=== PATIENT | female | born 1940 | race Caucasian/White ===

== ENCOUNTER 2024-03-25 08:50 | Observation (INO) | payer MEDICARE, SELFPAY ==
[2024-03-25] VITALS (22 sets, daily range): BP systolic 142–181; BP diastolic 63–98; PULSE 65–100; TEMP 37.4–38.4; O2SAT 90–98; BMI 39.5; BMI 38.9
--- NOTE | 2024-03-25 09:21 | ECG_ITS ---
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
--- NOTE | 2024-03-25 09:21 | XR_ITS ---
The [address] [address] Patient Name: SHAHBAZ CARIAS MRN: [id number] date: 1940 Sex: F Assigned Patient Location: ED.MAIN Current Patient Location: ER Accession/Order Number: [id number] Exam Date: 03/25/2024 10:06 Report Date: 03/25/2024 11:03 At the request of: GABRIELE CYR Procedure: XR chest 1V PROCEDURE: XR chest 1V DATE: 03/25/2024 9:06 AM CDT COMPARISONS: None. CLINICAL INDICATION: 83 years Female weakness, fever FINDINGS: The heart is moderately prominent. The pulmonary vasculature does not appear congested. There is some heterogeneous airspace disease of the right suprahilar region which could represent inflammatory infiltrate. There is slight scattered increased interstitial markings of the lungs which could represent a small amount of chronic lung change or small amount of congestion related to supine radiographic technique. There is no evidence of pleural effusion or pneumothorax. XR/XR chest 1V IMPRESSION: Somewhat limited supine radiograph. There appears to be moderate cardiomegaly. There is heterogeneous airspace disease of the right suprahilar region medially possibly inflammatory infiltrate. Electronically authenticated by: MICHELLE JONES Date: 03/25/2024 11:03
--- NOTE | 2024-03-25 09:23 | CT_ITS ---
The [address] [address] Patient Name: SHAHBAZ CARIAS MRN: [id number] date: 1940 Sex: F Assigned Patient Location: ED.MAIN Current Patient Location: ER Accession/Order Number: [id number] Exam Date: 03/25/2024 10:06 Report Date: 03/25/2024 11:06 At the request of: GABRIELE CYR Procedure: CT head/brain wo con PROCEDURE: CT head/brain wo con DATE: 03/25/2024 9:06 AM CDT COMPARISONS: None. CLINICAL INDICATION: 83 years Female weakness, fall TECHNIQUE: Axial images were obtained from the skull base through the calvarium. Reconstructed coronal and sagittal images are formatted for digital viewing. Individualized dose optimization technique was used for the procedure performed. FINDINGS: There is no evidence of intracranial masses, mass effect or hemorrhage. There is evidence of some diffuse brain atrophy in large part likely related to the patient's age. There is no evidence of abnormal extra-axial fluid collections. The visualized osseous structures show no CT abnormalities. The visualized portions of the paranasal sinuses and mastoid air cells appear clear. CT/CT head/brain wo con IMPRESSION: CT of the head shows no evidence of acute intracranial abnormality. Electronically authenticated by: MICHELLE JONES Date: 03/25/2024 11:06
--- NOTE | 2024-03-25 09:23 | CT_ITS ---
The [address] [address] Patient Name: SHAHBAZ CARIAS MRN: [id number] date: 1940 Sex: F Assigned Patient Location: ED.MAIN Current Patient Location: Accession/Order Number: [id number] Exam Date: 03/25/2024 10:06 Report Date: 03/25/2024 11:11 At the request of: GABRIELE CYR Procedure: CT cervical spine wo con PROCEDURE: CT cervical spine wo con DATE: 03/25/2024 9:06 AM CDT COMPARISONS: None. CLINICAL INDICATION: 83 years Female weakness, fall TECHNIQUE: Axial images were obtained of the spine. Coronal and sagittal reformations were created. Individualized dose optimization technique was used for the procedure performed. FINDINGS: There is no evidence of fractures, subluxation or other acute osseous abnormalities. There is moderate multilevel intervertebral disc space degenerative changes. This includes multilevel posterior lateral uncovertebral osteophytosis narrowing the neural foramina somewhat especially C4-T1. There is 3 mm of anterior subluxation C3 on C4 and 2 mm anterior subluxation C2 on C3. This is probably secondary to facet degenerative changes. There is moderate diffusely scattered multilevel cervical facet degenerative changes. No significant abnormalities are identified of the soft tissues included on these images. CT/CT cervical spine wo con IMPRESSION: 1. No evidence of fractures or other acute osseous abnormalities 2. Moderate degenerative spondylosis 3. Slight subluxation C2 on C3 and C3 on C4 probably due to facet degenerative change, probably not acute process Electronically authenticated by: MICHELLE JONES Date: 03/25/2024 11:11
--- NOTE | 2024-03-25 09:24 | XR_ITS ---
The [address] [address] Patient Name: SHAHBAZ CARIAS MRN: [id number] date: 1940 Sex: F Assigned Patient Location: ER Current Patient Location: ER Accession/Order Number: [id number] Exam Date: 03/25/2024 10:06 Report Date: 03/25/2024 11:13 At the request of: GABRIELE CYR Procedure: XR hip LT 2V w/ pelvis PROCEDURE: XR hip LT 2V w/ pelvis DATE: 03/25/2024 9:06 AM CDT COMPARISONS: None CLINICAL INDICATION: pain, fall FINDINGS: There is diffuse bone demineralization There is no evidence of fractures or other acute osseous abnormalities. There is slight deformity of the greater trochanters bilaterally, likely chronic deformity. There is moderate lumbar degenerative spondylosis noted on frontal view the pelvis. There is no significant hip degenerative changes. XR/XR hip LT 2V w/ pelvis IMPRESSION: AP pelvis and left hip radiographs show no evidence of acute abnormalities. Electronically authenticated by: MICHELLE JONES Date: 03/25/2024 11:13
[2024-03-25 09:50] LABS: Basophils Percent Auto 0.4 % (0.2-2.0); Eosinophils Percent Auto 0.3 % (0.9-7.0); Hematocrit 38.5 % (36.0-48.0); Hemoglobin 12.9 g/dL (12.0-16.0); Immature Granulocytes Abs Auto 0.02 10^3/uL (0.00-0.03); Immature Granulocytes Pct Auto 0.2 % (0.0-0.5); Lymphocytes Percent Auto 21.3 % (20.5-60.0); Mean Corpuscular HGB Conc 33.5 g/dL (29.9-35.2); Mean Corpuscular Hemoglobin 32.5 pg (26.7-34.0); Mean Platelet Volume 9.8 fL (9.5-13.5); Monocytes Absolute Auto 0.9 10^3/uL (0.3-0.8); Neutrophils Absolute Auto 6.5 10^3/uL (1.4-6.5); Neutrophils Percent Auto 68.8 % (43.0-75.0); Platelet Count 130 10^3/uL (150-450); Red Blood Count 3.97 10^6/uL (4.20-5.40); Red Cell Distribution Width 13.1 % (11.0-15.0); White Blood Count 9.5 10^3/uL (4.0-11.0)
[2024-03-25 09:55] LABS: Bilirubin Urine NEGATIVE (NEGATIVE); Blood Urine TRACE-I (NEGATIVE); Color Urine LT. YELLOW (YELLOW); Glucose Urine UA NEGATIVE (NEGATIVE); Ketones Urine NEGATIVE (NEGATIVE); Leukocyte Esterase Urine LARGE (NEGATIVE); Nitrite Urine POSITIVE (NEGATIVE); Protein Urine 30 mg/dL (NEG/TRACE); Specific Gravity Urine 1.015 (1.005-1.025); Urobilinogen Urine >=8.0 EU/dL (0.2-1.0); pH Urine 7.5 (5.0-9.0)
[2024-03-25 10:04] LABS: INR 1.15
[2024-03-25 10:12] LABS: Urine Microscopic Indicated YES
[2024-03-25 10:14] LABS: Alanine Aminotransferase 22 U/L (14-59); Albumin Globulin Ratio 0.6; Albumin Level 2.8 g/dL (3.4-5.0); Alkaline Phosphatase 74 U/L (46-116); Anion Gap 10.8; Aspartate Amino Transferase 31 U/L (15-37); BUN Creatinine Ratio 18.3; Bilirubin Total 1.9 mg/dL (0.2-1.0); Calcium 8.5 mg/dL (8.5-10.1); Carbon Dioxide 28.7 mmol/L (21.0-32.0); Chloride 100 mmol/L (98-107); Estimated GFR (African America >60 (>=60); Estimated GFR (Non-African Ame >60 (>=60); Globulin 4.7 g/dL; Glucose 118 mg/dL (74-106); Potassium 3.5 mmol/L (3.5-5.1); Sodium 136 mmol/L (136-145); Total Protein 7.5 g/dL (6.4-8.2)
[2024-03-25 10:21] LABS: Clarity Urine CLOUDY (CLEAR)
[2024-03-25 10:23] LABS: Bacteria Urine MODERATE #/HPF (NONE SEEN); Cast Seen? NONE SEEN #/LPF (NONE SEEN); Crystals Seen? None Seen #/HPF (None Seen); Mucus Urine NONE SEEN (NONE SEEN); Squamous Epithelial Cell Urine FEW #/LPF (NONE/RARE); Urine Culture Indicated YES; WBC Urine 75-100 #/HPF (NONE SEEN)
--- NOTE | 2024-03-25 10:27 | ED.GENADUL1 ---
HPI HPI - General Adult General Chief complaint: Fever Stated complaint: FEVER, FALL, WEAKNESS Time Seen by Provider: 03/25/24 08:53 Source: patient and family Mode of arrival: Wheelchair Limitations: language barrier Limitations comment: Difficulty assessing patients baseline due to daughter answering questions for patient. History of Present Illness HPI narrative: 83-year-old female with history of dementia from senior care with chief complaint of accidental fall. Daughter is the principal historian. She reports that the patient will get generally weak and has falls and increased confusion when she has urinary tract infections. She does have frequent urinary tract infections. She was noted to have a fever this morning per senior care. Is unclear if medications were given. skilled nursing reports that she was seated on the side of her bed and slid off the side of the bed when trying to stand. Unknown if she hit her head or loss consciousness. Patient reports some pain in her left groin/hip area. She has no other complaints at this time. She denies any neck back or extremity pain. Related Data Home Medications ?Medication ?Instructions ?Recorded ?Confirmed buspirone 10 mg tablet 10 mg PO TID 03/25/24 03/25/24 celecoxib 200 mg capsule 200 mg PO BID 03/25/24 03/25/24 cetirizine 10 mg tablet (24Hour 10 mg PO DAILY PRN allergy symptoms 03/25/24 03/25/24 Allergy) escitalopram oxalate 20 mg tablet 20 mg PO DAILY 03/25/24 03/25/24 furosemide 40 mg tablet 40 mg PO DAILY 03/25/24 03/25/24 glucosamine 750 im-jehyuanfmmf-mmm 1 tab PO DAILY 03/25/24 03/25/24 no1 625 mg-C 30 mg-nicko 1 mg tablet (Xujsmmlguad-Qdxxdroaxne-MRE) latanoprost 0.005 % eye drops 1 drp ophthalmic (eye) DAILY 03/25/24 03/25/24 melatonin 5 mg capsule 5 mg PO BEDTIME 03/25/24 03/25/24 metoprolol succinate 25 mg 25 mg PO DAILY 03/25/24 03/25/24 tablet,extended release 24 hr omeprazole 20 mg capsule,delayed 20 mg PO DAILY 03/25/24 03/25/24 release potassium chloride 10 mEq 10 meq PO DAILY 03/25/24 03/25/24 tablet,extended release(part/cryst) (Klor-Con M) quetiapine 25 mg tablet 25 mg PO BID 03/25/24 03/25/24 tizanidine 4 mg tablet 4 mg PO BEDTIME 03/25/24 03/25/24 Allergies Allergy/AdvReac Type Severity Reaction Status Date / Time No Known Drug Allergies Allergy Verified 03/25/24 08:58 Opioid HPI Opioid Management Most Recent Opioid Data: No Data to Display Review of Systems ROS Status of ROS 10 or more systems reviewed and unremarkable except as noted in history and below Exam Narrative Exam Narrative: VITALS: I have reviewed the triage vital signs. GENERAL: Obese elderly female in no distress NEURO: Alert and oriented x 1 (person). Moves all extremities. Face is symmetric and expressive. EYES: PERRL. No scleral icterus or conjunctival injection. No discharge. HENT: Normocephalic, atraumatic. Hearing is grossly intact. Nares grossly patent and without discharge. Mucous membranes moist. NECK: No JVD. Patient moves neck without restriction. No midline cervical, thoracic, or lumbar tenderness. CARDIO: Rhythm regular. Normal rate. No murmur, rub, or gallop. Pulses equal bilaterally in the upper and lower extremity. No lower extremity edema. PULM: Lungs clear to auscultation in all fan. No wheezes, rales, or rhonchi. No conversational dyspnea. No splinting, stridor, or accessory muscle use. GI/: Abdomen is soft and non-tender. Normoactive bowel sounds. EXTREMITIES: Symmetric muscle bulk. No joint swelling. No clubbing, cyanosis, or deformity. SKIN: Warm and dry. Normal turgor. No rash or lesions appreciated. PSYCH: Mood, affect, and interaction is appropriate to the setting. Constitutional Vital Signs, click to edit/add: Last Vital Signs Temp 99.4 F 03/25/24 08:59 Pulse 90 03/25/24 08:59 Resp 18 03/25/24 08:59 BP 144/80 H 03/25/24 08:59 Pulse Ox 92 L 03/25/24 09:20 O2 Del Method Room Air 03/25/24 09:20 Course Vital Signs Vital signs: Vital Signs Temperature 99.4 F 03/25/24 08:59 Pulse Rate 90 03/25/24 08:59 Respiratory Rate 18 03/25/24 08:59 Blood Pressure 144/80 H 03/25/24 08:59 Pulse Oximetry 91 L 03/25/24 08:59 Oxygen Delivery Method Room Air 03/25/24 08:59 Temperature 99.4 F 03/25/24 08:59 Pulse Rate 90 03/25/24 08:59 Respiratory Rate 18 03/25/24 08:59 Blood Pressure 144/80 H 03/25/24 08:59 Pulse Oximetry 92 L 03/25/24 09:20 Oxygen Delivery Method Room Air 03/25/24 09:20 Medical Decision Making MDM Narrative Medical decision making narrative: 83-year-old female to the emergency department chief complaint of accidental fall, fever, possible UTI. Vital stable, the patient is afebrile. She is pleasantly demented. Daughter accompanies her who helps provide history. She reports the patient is senior care resident, slightly more confused than baseline currently. skilled nursing documentation reports fall, complained of left-sided pelvic pain. Patient has no complaints at this time. CT scan of the head and neck ordered given her advanced age and fall, cannot rule out by clinical decision rules alone. Basic labs. Urinalysis. X-ray of the hip and pelvis. Patient and her daughter agree with this plan. She declines any pain medications. CT head: No acute findings CT cervical spine: No acute findings Chest x-ray: Question of an infiltrate, does not correlate clinically X-ray pelvis/hip: No acute findings Lab work reviewed and noted. Urinalysis is positive. EKG reviewed. Shared decision-making conversation had with the patient and her daughter. Fever, advanced age, altered mental status, increased weakness, immunocompromise state on biologic. I offered discharged home on antibiotics versus admission for IV antibiotics and allow cultures to result. Decision was made to proceed with admission at this time. Case was discussed with Dr. Carrillo who agreed admit the patient to his service. [facility] DATA #415 - Emergency Medicine: Utilization of CT for Minor Blunt Head Trauma (Adult) [x] Patient is 18 or older, presenting with minor blunt head trauma. Head CT (including cosigned orders) was ordered by an emergency family day care worker for trauma because (select one or more): [SATISFIES MIPS PERFORMANCE] Reasons: [x] Patient is 65 or older [x] Patient GCS < 15 (baseline 14 for confusion) Medical Records Medical records reviewed: Yes I reviewed the patient's medical records Lab Data Lab results reviewed: Yes I reviewed the patient's lab results Labs: Lab Results 03/25/24 03/25/24 Range/Units 09:16 09:33 WBC 9.5 (4.0-11.0) 10^3/uL RBC 3.97 L (4.20-5.40) 10^6/uL Hgb 12.9 (12.0-16.0) g/dL Hct 38.5 (36.0-48.0) % MCV 97.0 (81.0-99.0) fL MCH 32.5 (26.7-34.0) pg MCHC 33.5 (29.9-35.2) g/dL RDW 13.1 (11.0-15.0) % Plt Count 130 L (150-450) 10^3/uL MPV 9.8 (9.5-13.5) fL Neut % (Auto) 68.8 (43.0-75.0) % Lymph % (Auto) 21.3 (20.5-60.0) % [place] % (Auto) 9.0 (1.7-12.0) % Eos % (Auto) 0.3 L (0.9-7.0) % Baso % (Auto) 0.4 (0.2-2.0) % Neut # (Auto) 6.5 (1.4-6.5) 10^3/uL Lymph # (Auto) 2.0 (1.2-3.8) 10^3/uL [place] # (Auto) 0.9 H (0.3-0.8) 10^3/uL Eos # (Auto) 0.0 (0.0-0.7) 10^3/uL Baso # (Auto) 0.0 (0.0-0.1) 10^3/uL Abs Immat Gran (auto) 0.02 (0.00-0.03) 10^3/uL Imm/Tot Granulo (auto) 0.2 (0.0-0.5) % PT 12.0 H (9.0-11.6) sec INR 1.15 Sodium 136 (136-145) mmol/L Potassium 3.5 (3.5-5.1) mmol/L Chloride 100 (98-107) mmol/L Carbon Dioxide 28.7 (21.0-32.0) mmol/L Anion Gap 10.8 BUN 15.0 (7.0-18.0) mg/dL Creatinine 0.82 (0.55-1.02) mg/dL Est GFR ( Amer) >60 (>=60) Est GFR (Non-Af Amer) >60 (>=60) BUN/Creatinine Ratio 18.3 Glucose 118 H (74-106) mg/dL Lactate 1.0 (0.4-2.0) mmol/L Calcium 8.5 (8.5-10.1) mg/dL Total Bilirubin 1.9 H (0.2-1.0) mg/dL AST 31 (15-37) U/L ALT 22 (14-59) U/L Alkaline Phosphatase 74 (46-116) U/L Troponin I High Sens 26.0 (4.0-51.3) pg/mL NT-Pro-B Natriuret Pep 900.0 (<=1800.0) pg/mL Total Protein 7.5 (6.4-8.2) g/dL Albumin 2.8 L (3.4-5.0) g/dL Globulin 4.7 g/dL Albumin/Globulin Ratio 0.6 Urine Color Lt. yellow (YELLOW) Urine Clarity Cloudy A (CLEAR) Urine pH 7.5 (5.0-9.0) Ur Specific [place] 1.015 (1.005-1.025) Urine Protein 30 A (NEG/TRACE) mg/dL Urine Glucose (UA) Negative (NEGATIVE) mg/dL Urine Ketones Negative (NEGATIVE) mg/dL Urine Occult Blood Trace-i (NEGATIVE) Urine Nitrite Positive A (NEGATIVE) Urine Bilirubin Negative (NEGATIVE) Urine Urobilinogen >=8.0 (0.2-1.0) EU/dL Ur Leukocyte Esterase Large A (NEGATIVE) Urine RBC 2-5 A (0-2) #/HPF Urine WBC 75-100 A (NONE SEEN) #/HPF Ur Squamous Epith Cells Few A (NONE/RARE) #/LPF Urine Crystals None seen (None Seen) #/HPF Urine Bacteria Moderate A (NONE SEEN) #/HPF Urine Casts None seen (NONE SEEN) #/LPF Urine Mucus None seen (NONE SEEN) Ur Culture Indicated? Yes Imaging Data Imaging results: Attestation: I have reviewed the pertinent imaging results. Radiologist's impression: ITS Impressions Chest X-Ray 03/25/24 09:21 IMPRESSION: Somewhat limited supine radiograph. There appears to be moderate cardiomegaly. There is heterogeneous airspace disease of the right suprahilar region medially possibly inflammatory infiltrate. Electronically authenticated by: MICHELLE JONES Date: 03/25/2024 11:[address] 03/25/24 09:23 IMPRESSION: 1. No evidence of fractures or other acute osseous abnormalities 2. Moderate degenerative spondylosis 3. Slight subluxation C2 on C3 and C3 on C4 probably due to facet degenerative change, probably not acute process Electronically authenticated by: MICHELLE JONES Date: 03/25/2024 11:[address] 03/25/24 09:23 IMPRESSION: CT of the head shows no evidence of acute intracranial abnormality. Electronically authenticated by: MICHELLE JONES Date: 03/25/2024 11:06 Hip/Pelvis X-Ray 03/25/24 09:24 IMPRESSION: AP pelvis and left hip radiographs show no evidence of acute abnormalities. Electronically authenticated by: MICHELLE JONES Date: 03/25/2024 11:13 ECG Data Attestation: I personally reviewed and interpreted this ECG as follows: (Normal sinus rhythm at a rate of 76. No STEMI. QTc 416, normal. ) Discharge Plan Discharge Chief Complaint: Fever Clinical Impression: Acute UTI (urinary tract infection), Accidental fall, Acute metabolic encephalopathy, Weakness Patient Disposition: Admitted as Observation Time of Disposition Decision: 11:39 Condition: Fair Prescriptions / Home Meds: No Action buspirone 10 mg tablet 10 mg PO TID celecoxib 200 mg capsule 200 mg PO BID escitalopram oxalate 20 mg tablet 20 mg PO DAILY furosemide 40 mg tablet 40 mg PO DAILY latanoprost 0.005 % drops 1 drp OPHTHALMIC (EYE) DAILY metoprolol succinate 25 mg tablet extended release 24 hr 25 mg PO DAILY omeprazole 20 mg capsule,delayed release(DR/EC) 20 mg PO DAILY quetiapine 25 mg tablet 25 mg PO BID tizanidine 4 mg tablet 4 mg PO BEDTIME potassium chloride [Klor-Con M10] 10 mEq tablet,ER particles/crystals 10 meq PO DAILY melatonin 5 mg capsule 5 mg PO BEDTIME cetirizine [24Hour Allergy] 10 mg tablet 10 mg PO DAILY PRN (Reason: allergy symptoms) krqifqyh-mbwim-gqw1-C-nicko-bor [Fipzdtzg-Qlwkq-EWA(with boron)] [id number] mg tablet 1 tab PO DAILY Print Language: Slovenian Referrals: Edmond Souza DO [Primary Care Provider] - 1 week
[2024-03-25] MEDS: CEFTRIAXONE 1,000 MG in 0.9 % SODIUM CHLORIDE 50 ML 100 MG IV (11:52)
[2024-03-25] MEDS: ACETAMINOPHEN 325 MG TABLET 650 MG PO ×2 (11:53→16:54)
[2024-03-25] MEDS: BUSPIRONE HCL 10 MG TABLET PO ×2 (13:55→21:50)
--- NOTE | 2024-03-25 14:27 | CT_ITS ---
The [address] [address] Patient Name: SHAHBAZ CARIAS MRN: [id number] date: 1940 Sex: F Assigned Patient Location: MS Current Patient Location: MS Accession/Order Number: [id number] Exam Date: 03/25/2024 16:10 Report Date: 03/25/2024 17:52 At the request of: SHAIKH IRIS Procedure: CT chest wo con EXAM: CT chest wo con HISTORY: shortness of breath COMPARISON: None. TECHNIQUE: Axial CT imaging was performed through the chest without intravenous contrast. Multiplanar reformats were performed. Dose reduction techniques were achieved by using automated exposure control and/or adjustment of mA and/or kV according to patient size and/or use of iterative reconstruction technique. FINDINGS: Lungs: No consolidation, pneumothorax, or effusion. Airways: Normal. Mediastinum: No adenopathy. Aorta: Ectatic ascending aorta, measuring 3.8 cm. Cardiac: Normal size. No pericardial effusion. Aortic valve calcification. Coronary Arteries: Coronary calcifications are moderate. Pulmonary vasculature: Dilated main pulmonary artery measuring 4.1 cm, likely representing chronic pulmonary hypertension. Bones: No acute bony abnormality. Axilla: No adenopathy. Thyroid gland: No abnormality demonstrated on provided imaging. Soft tissues: Unremarkable. Upper abdomen: Small hiatal hernia. CT/CT chest wo con IMPRESSION: Dilated main pulmonary artery measuring 4.1 cm, likely representing chronic pulmonary hypertension. Small hiatal hernia. Electronically authenticated by: TIFFANY ALLEN Date: 03/25/2024 17:52
--- NOTE | 2024-03-25 14:29 | P.HP_ITS ---
HPI H&P: HPI History of Present Illness Chief complaint: FEVER FALL WEAKNESS, UTI, METABOLIC ENCEPHALOPATHY Narrative: 83-year-old female with moderate dementia, currently living in an assisted living facility was brought in for febrile episode that was associated with diaphoresis, confusion, generalized weakness. Patient is confused at baseline but according to the patient's daughter, she is not at her baseline mental status currently. She is more withdrawn and lethargic than usual. She has a history of recurrent UTI and has had multiple admissions for UTI in the past. Last antibiotic use was about 2 months ago. Patient's workup was consistent with metabolic encephalopathy secondary to UTI for which she was started on IV Rocephin. Patient also has been experiencing shortness of breath that is worse on exertion for past 1 month and is being worked up for it as an outpatient. She had an echocardiogram as an outpatient about 2 weeks ago that showed normal EF but patient's daughter is unsure of diastolic dysfunction. She was treated with oral Lasix as outpatient and recently her Lasix was decreased to once daily. Daughter reports increased weight gain, lower extremity edema and physical exam is consistent with volume overload likely because of acute on chronic diastolic heart failure. She was tachypneic in ER with mild hypoxia with pulse ox as low as 88% on room air. She has history of sleep apnea but does not use CPAP at night. Upon my evaluation, patient was noted to be confused, lethargic. She does not appear to have any respiratory distress but appears a little short of breath at rest. She also appear very frail and weak overall Opioid HPI Opioid Management Most Recent Pain and Opioid Data: Last Pain Scale 6 03/25/24 11:53 Last Pain Assessment 03/25/24 14:00 Last MAR Pain Assessment 03/25/24 11:53 Last ORT Total Score 3 03/25/24 12:28 Last ORT Risk Category Low Risk 03/25/24 12:28 Review of Systems ROS Narrative Limited review of system because of patient's mental status. Does not appear to be in acute distress or pain [facility] Medical History (Updated 03/25/24 @ 14:38 by Shaikh Gerardo MD) Osteoarthritis ?M19.90 - Unspecified osteoarthritis, unspecified site (ICD-10) Dementia ?F03.90 - Unspecified dementia, unspecified severity, without behavioral di sturbance, psychotic disturbance, mood disturbance, and anxiety (ICD-10) Glaucoma ?H40.9 - Unspecified glaucoma (ICD-10) PSVT (paroxysmal supraventricular tachycardia) ?I47.10 - Supraventricular tachycardia, unspecified (ICD-10) Spinal stenosis ?M48.00 - Spinal stenosis, site unspecified (ICD-10) Psoriatic arthritis ?L40.50 - Arthropathic psoriasis, unspecified (ICD-10) Surgical History (Updated 03/25/24 @ 12:52 by Estefani Quinones) History of nasal surgery ?Z98.890 - Other specified postprocedural states (ICD-10) Hx of foot surgery ?Z98.890 - Other specified postprocedural states (ICD-10) H/O laminectomy ?Z98.890 - Other specified postprocedural states (ICD-10) Social History (Updated 03/25/24 @ 12:53 by Estefani Quinones) Within the past year, how often did you have a drink containing alcohol: never Score interpretation: A score less than 3 is consistent with normal alcohol consumption. 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 Known occupational exposures/hazards: No Highest level of school completed/degree received: high school graduate Meds Home Medications and Allergies Home Medications ?Medication ?Instructions ?Recorded ?Confirmed ?Type buspirone 10 mg tablet 10 mg PO TID 03/25/24 03/25/24 History celecoxib 200 mg capsule 200 mg PO BID 03/25/24 03/25/24 History cetirizine 10 mg tablet (24Hour 10 mg PO DAILY PRN allergy symptoms 03/25/24 03/25/24 History Allergy) escitalopram oxalate 20 mg tablet 20 mg PO DAILY 03/25/24 03/25/24 History furosemide 40 mg tablet 40 mg PO DAILY 03/25/24 03/25/24 History glucosamine 750 yu-tkrwomqhile-ofg 1 tab PO DAILY 03/25/24 03/25/24 History no1 625 mg-C 30 mg-nicko 1 mg tablet (Tmqmqkyvbwo-Emvbhmvzlxx-QZS) latanoprost 0.005 % eye drops 1 drp ophthalmic (eye) DAILY 03/25/24 03/25/24 History melatonin 5 mg capsule 5 mg PO BEDTIME 03/25/24 03/25/24 History metoprolol succinate 25 mg 25 mg PO DAILY 03/25/24 03/25/24 History tablet,extended release 24 hr omeprazole 20 mg capsule,delayed 20 mg PO DAILY 03/25/24 03/25/24 History release potassium chloride 10 mEq 10 meq PO DAILY 03/25/24 03/25/24 History tablet,extended release(part/cryst) (Klor-Con M) quetiapine 25 mg tablet 25 mg PO BID 03/25/24 03/25/24 History tizanidine 4 mg tablet 4 mg PO BEDTIME 03/25/24 03/25/24 History Allergies Allergy/AdvReac Type Severity Reaction Status Date / Time No Known Drug Allergies Allergy Verified 03/25/24 08:58 Exam Constitutional Vital Signs, click to edit/add: Last Vital Signs Temp 100.2 F 03/25/24 12:28 Pulse 80 03/25/24 12:01 Resp 27 H 03/25/24 12:01 BP 161/63 H 03/25/24 12:01 Pulse Ox 96 03/25/24 12:01 O2 Del Method Room Air 03/25/24 11:35 Documenting provider has reviewed patient's vital signs: yes General appearance: cooperative, comfortable, lethargic, ill appearing and frail appearing Nutritional appearance: obese HENMT Common normals: normocephalic and head/scalp atraumatic Head and scalp: normocephalic and atraumatic Eye Common normals: conjunctivae normal and no scleral icterus Conjunctiva: conjunctiva(e) normal Respiratory Common normals: normal respiratory effort Effort & inspection: able to speak in complete sentences and decreased respiratory effort Auscultation: rales bilateral at the base and diminished lung sounds Cardio Common normals: regular rate, S1 normal heart sound and S2 normal heart sound Rate: regular rate Heart sounds: S1 normal and S2 normal GI Common normals: Normal to inspection, nondistended, normoactive bowel sounds present, soft to palpation, non-tender and no hepatosplenomegaly Palpation: soft and no hepatosplenomegaly Extremity Common normals: no clubbing, cyanosis or edema Neuro Common normals: moves all extremities and no focal motor deficits Sensorium/orientation: orientation impaired and lethargic Speech: speech normal Gait (neuro): unable to assess gait Psych Common normals: cooperative, denies hallucinations, denies homicidal ideation and denies suicidal ideation Attitude: calm Speech: normal speech Thought process: confused Memory/cognition: memory grossly impaired Results Labs Labs: Short CBC 03/25/24 Range/Units 09:33 WBC 9.5 (4.0-11.0) 10^3/uL Hgb 12.9 (12.0-16.0) g/dL Hct 38.5 (36.0-48.0) % Plt Count 130 L (150-450) 10^3/uL BMP 03/25/24 09:33 Sodium 136 Potassium 3.5 Chloride 100 Carbon Dioxide 28.7 BUN 15.0 Creatinine 0.82 Glucose 118 H Calcium 8.5 Liver Function 03/25/24 Range/Units 09:33 Total Bilirubin 1.9 H (0.2-1.0) mg/dL AST 31 (15-37) U/L ALT 22 (14-59) U/L Alkaline Phosphatase 74 (46-116) U/L Albumin 2.8 L (3.4-5.0) g/dL Urine 03/25/24 Range/Units 09:16 Urine Color Lt. yellow (YELLOW) Urine Clarity Cloudy A (CLEAR) Urine pH 7.5 (5.0-9.0) Ur Specific [place] 1.015 (1.005-1.025) Urine Protein 30 A (NEG/TRACE) mg/dL Urine Glucose (UA) Negative (NEGATIVE) mg/dL Assessment and Plan Assessment and Plan (1) Acute respiratory failure with hypoxia: Assessment and Plan: Acute respiratory failure with hypoxia, shortness of breath at rest and on exertion. No evidence of respiratory distress but hypoxic with pulse ox at 88% on room air. Likely due to acute on chronic diastolic heart failure. Start patient on IV Lasix 40 twice daily. Monitor intake and output. Daily weights. No need for repeat echo as recently performed 2 weeks ago as outpatient. Will obtain results of echocardiogram. Monitor urine output, serum electrolytes and renal function closely. Abnormal chest x-ray with possibility of pneumonia. CT chest ordered to assess lung parenchyma. If she truly does have pneumonia, she is being treated for it with IV Rocephin regardless (2) Acute metabolic encephalopathy: Assessment and Plan: History of dementia with change in mental status likely because of UTI and hypoxia. Started on IV Rocephin. Monitor closely. No acute intracranial pathology on CT head (3) Acute on chronic diastolic heart failure: Assessment and Plan: Volume overload on exam with respiratory symptoms and hypoxia. Started on IV L asix. Monitor intake and output. Daily weights. No need for repeat echo as recently performed 2 weeks ago as outpatient. Will obtain results of echocardiogram. Monitor urine output, serum electrolytes and renal function closely. (4) Acute UTI (urinary tract infection): Assessment and Plan: History of recurrent urine tract infection. Most recent antibiotic use was 2 months ago. Started on IV Rocephin. Follow-up urine culture (5) Weakness: Assessment and Plan: Generalized weakness likely because of acute UTI and heart failure. PT/OT evaluation. (6) Dementia: Assessment and Plan: Moderate mention with behavioral disturbances and psychosis intermittently. On Seroquel at night. Continue with same Qualifiers: Alzheimer's disease onset: late onset Dementia behavioral or psychological symptom: with psychotic disturbance Dementia severity: moderate Dementia type: Alzheimer's Qualified Code(s): G30.1 - Alzheimer's disease with late onset; F02.B2 - Dementia in other diseases classified elsewhere, moderate, with psychotic disturbance (7) Psoriatic arthritis: Assessment and Plan: History of psoriatic arthritis and receives Remicade once monthly. Immunosuppressed status and is at high risk of treatment failure/resistant organisms due to immunosuppression, recurrent antibiotic use/dementia. Plan Continue with IV antibiotics. Follow-up urine cultures. Continue with IV Lasix 40 twice daily. Monitor volume status/urine output, intake/output, renal function and serum electrolytes. Possible bacterial pneumonia suspected. CT chest ordered to confirm suspicion. Patient admitted as inpatient because she is anticipated to require 2 to 3 days of hospital admission for UTI/metabolic encephalopathy/acute respiratory failure with hypoxia and acute on chronic diastolic heart failure. She is at higher risk of treatment failure and readmission because of her immunosuppressive status/failure to response to outpatient diuretic therapy/advanced age/dementia. Urinary Catheter Management Urinary Catheter Management Straight: Cath placed during this visit: yes Urethral indwelling: No Insertion date: 03/25/24 Insertion time: 09:21
[2024-03-25] MEDS: POTASSIUM CHLORIDE 10 MEQ ER TABLET PO (16:25)
[2024-03-25] MEDS: ENOXAPARIN SODIUM 40 MG/0.4 ML SYRINGE SUBQ (16:25)
[2024-03-25] MEDS: FUROSEMIDE 40 MG/4 ML VIAL IVP ×2 (16:26→21:50)
[2024-03-25] MEDS: TIZANIDINE HCL 4 MG TABLET PO (21:50)
[2024-03-25] MEDS: CELECOXIB 200 MG CAPSULE PO (21:50)
[2024-03-25] MEDS: IPRATROPIUM/ALBUTEROL SULFATE 3 ML AMPUL.NEB IH (23:30)
[2024-03-26 03:30] VITALS: BP 158/81; PULSE 65; TEMP 37.2; O2SAT 98
[2024-03-26 04:00] VITALS: BP 106/68; PULSE 66; TEMP 36.8; O2SAT 95
[2024-03-26] MEDS: IPRATROPIUM/ALBUTEROL SULFATE 3 ML AMPUL.NEB IH (04:18)
[2024-03-26 04:19] VITALS: PULSE 68; O2SAT 97
[2024-03-26] MEDS: ACETAMINOPHEN 325 MG TABLET 650 MG PO (04:23)
--- NOTE | 2024-03-26 05:18 | PC.NURSE ---
I was getting ready to give the Patient her night meds when her daughter decided to remove the seroquel from her med cup. She said she doesn't need that she's lethargic enough. Daughter then expressed her concern that she's afraid her mom could climb out of bed and fall. Bed alarm is activated at this time. I moved the Patient closer to the nurses station.
[2024-03-26] MEDS: OMEPRAZOLE 20 MG CAPSULE.DR PO (07:02)
[2024-03-26] MEDS: BUSPIRONE HCL 10 MG TABLET PO ×2 (07:03→13:18)
[2024-03-26 07:39] LABS: Basophils Absolute Auto 0.1 10^3/uL (0.0-0.1); Basophils Percent Auto 0.8 % (0.2-2.0); Eosinophils Absolute Auto 0.2 10^3/uL (0.0-0.7); Eosinophils Percent Auto 1.8 % (0.9-7.0); Hematocrit 40.1 % (36.0-48.0); Hemoglobin 13.6 g/dL (12.0-16.0); Immature Granulocytes Abs Auto 0.08 10^3/uL (0.00-0.03); Immature Granulocytes Pct Auto 0.8 % (0.0-0.5); Lymphocytes Absolute Auto 2.9 10^3/uL (1.2-3.8); Lymphocytes Percent Auto 29.6 % (20.5-60.0); Mean Corpuscular HGB Conc 33.9 g/dL (29.9-35.2); Mean Corpuscular Hemoglobin 32.7 pg (26.7-34.0); Mean Corpuscular Volume 96.4 fL (81.0-99.0); Mean Platelet Volume 10.2 fL (9.5-13.5); Monocytes Absolute Auto 1.1 10^3/uL (0.3-0.8); Monocytes Percent Auto 11.1 % (1.7-12.0); Neutrophils Absolute Auto 5.5 10^3/uL (1.4-6.5); Neutrophils Percent Auto 55.9 % (43.0-75.0); Platelet Count 135 10^3/uL (150-450); Red Blood Count 4.16 10^6/uL (4.20-5.40); White Blood Count 9.8 10^3/uL (4.0-11.0)
[2024-03-26 08:45] VITALS: BP 110/71; PULSE 67; TEMP 36.4; O2SAT 92
[2024-03-26 09:12] LABS: Alanine Aminotransferase 20 U/L (14-59); Albumin Globulin Ratio 0.5; Albumin Level 2.7 g/dL (3.4-5.0); Alkaline Phosphatase 65 U/L (46-116); Anion Gap 10.8; Aspartate Amino Transferase 32 U/L (15-37); BUN Creatinine Ratio 16.7; Bilirubin Total 1.6 mg/dL (0.2-1.0); Calcium 8.5 mg/dL (8.5-10.1); Carbon Dioxide 30.2 mmol/L (21.0-32.0); Chloride 99 mmol/L (98-107); Estimated GFR (African America >60 (>=60); Estimated GFR (Non-African Ame >60 (>=60); Glucose 102 mg/dL (74-106); Sodium 137 mmol/L (136-145); Total Protein 7.7 g/dL (6.4-8.2)
[2024-03-26] MEDS: ESCITALOPRAM 10 MG TABLET 20 MG PO (09:39)
[2024-03-26] MEDS: QUETIAPINE FUMARATE 25 MG TABLET PO (09:39)
[2024-03-26] MEDS: POTASSIUM CHLORIDE 10 MEQ ER TABLET PO (09:39)
[2024-03-26] MEDS: CELECOXIB 200 MG CAPSULE PO (09:39)
[2024-03-26] MEDS: METOPROLOL SUCCINATE 25 MG TAB.ER.24H PO (09:39)
[2024-03-26] MEDS: FUROSEMIDE 40 MG/4 ML VIAL IVP (09:40)
--- NOTE | 2024-03-26 10:10 | P.DS_ITS ---
DS: Providers Provider Date of admission: 03/25/24 14:39 Primary care physician: Edmond Souza DO Admitting clinician: Shaikh Gerardo Attending physician on admission: Shaikh Gerardo Consults: 03/25/24 11:35 Occupational Therapy Eval and Treat Routine Reason for consultation: Ambulatory dysfunction/weakness Physical Therapy Eval and Treat Routine Reason for consultation: Ambulatory dysfunction/weakness Attending physician on discharge: Shaikh Gerardo Discharging clinician: Shaikh Gerardo Anticipated date of discharge: 03/26/24 DS: Diagnosis Discharge Diagnosis (1) Acute respiratory failure with hypoxia: Assessment and plan: Resolved. 92-94% on RA now. (2) Acute metabolic encephalopathy: Assessment and plan: Currently is back to her baseline. Likely secondary to UTI (3) Acute on chronic diastolic heart failure: Assessment and plan: Echo performed at [facility] about 2 weeks ago revealed severe pulmonary hypertension, grade 1 diastolic dysfunction. Patient was treated with IV Lasix 40 twice daily and responded really well to it overnight. She is more or less euvolemic now upon exam. No need to repeat echocardiogram (4) Acute UTI (urinary tract infection): Assessment and plan: Will discharge patient on oral Ceftin. Follow-up urine cultures. (5) Weakness: Assessment and plan: Improved overnight. Will discharge to assisted living facility where she will also get outpatient PT and OT. (6) Dementia: Assessment and plan: Progressively worsening. Has poor memory, intermittently confused along with hallucinations and behavioral disturbances. She is doing well today and is more or less at baseline Qualifiers: Dementia type: Alzheimer's Alzheimer's disease onset: late onset Dementia severity: moderate Dementia behavioral or psychological symptom: with psychotic disturbance Qualified Code(s): G30.1 - Alzheimer's disease with late onset; F02.B2 - Dementia in other diseases classified elsewhere, moderate, with psychotic disturbance (7) Psoriatic arthritis: Assessment and plan: She takes Remicade for it once a month. DS: Summary Hospital Course Hospital Course: 83-year-old female presented to ER last evening with shortness of breath, hypoxia and change in mental status. Her workup was consistent with UTI resulting in metabolic encephalopathy and acute respiratory failure with hypoxia secondary to acute on chronic diastolic heart failure. Her CT head was unremarkable with no significant intracranial pathology noted. She was very c onfused, lethargic on arrival. She was treated with IV Rocephin, IV Lasix 40 twice daily. Patient was evaluated by physical therapy and Occupational Therapy. She was admitted as inpatient as we anticipated that she will require 2 to 3 days of inpatient treatment for her presenting illness. However she recovered sooner than anticipated and is medically stable for discharge today. Will send her home on oral Lasix 40 daily. She will need to complete her antibiotic course for UTI. Patient and her daughter who is her caregiver structure to bring the patient back to ER if worsening symptoms, shortness of breath, significant weight gain. Patient needs to follow-up with PCP within 1 to 2 weeks. Status at Discharge Functional status at discharge: uses cane/walker Overall status at discharge: patient is back to baseline Time Spent with Patient Time attestation: Total time spent providing and/or coordinating discharge services: Time spent: greater than 30 minutes Exam Constitutional Vital Signs, click to edit/add: Last Vital Signs Temp 97.5 F L 03/26/24 08:45 Pulse 67 03/26/24 08:45 Resp 16 03/26/24 08:57 BP 110/71 03/26/24 08:45 Pulse Ox 92 L 03/26/24 08:45 O2 Del Method Nasal Cannula 03/26/24 08:45 O2 Flow Rate 2 03/26/24 08:45 Documenting provider has reviewed patient's vital signs: yes General appearance: cooperative, comfortable and frail appearing Nutritional appearance: obese [facility] Common normals: normocephalic and head/scalp atraumatic Head and scalp: normocephalic and atraumatic Eye Common normals: conjunctivae normal and no scleral icterus Conjunctiva: conjunctiva(e) normal Respiratory Common normals: normal respiratory effort Effort & inspection: able to speak in complete sentences and decreased respiratory effort Cardio Common normals: regular rate, S1 normal heart sound and S2 normal heart sound Rate: regular rate Heart sounds: S1 normal and S2 normal GI Common normals: Normal to inspection, nondistended, normoactive bowel sounds present, soft to palpation, non-tender and no hepatosplenomegaly Palpation: soft and no hepatosplenomegaly Extremity Common normals: no clubbing, cyanosis or edema Neuro Common normals: moves all extremities and no focal motor deficits Sensorium/orientation: orientation impaired Speech: speech normal Gait (neuro): unable to assess gait Psych Common normals: cooperative, denies hallucinations, denies homicidal ideation and denies suicidal ideation Attitude: calm Speech: normal speech Thought process: confused Memory/cognition: memory grossly impaired DS: Data Data Completed and Pending Labs on day of discharge: Labs from last 24 hours 03/26/24 03/25/24 03/25/24 06:48 14:46 09:33 WBC 9.8 RBC 4.16 L Hgb 13.6 Hct 40.1 MCV 96.4 MCH 32.7 MCHC 33.9 RDW 13.0 Plt Count 135 L MPV 10.2 Neut % (Auto) 55.9 Lymph % (Auto) 29.6 Banks % (Auto) 11.1 Eos % (Auto) 1.8 Baso % (Auto) 0.8 Neut # (Auto) 5.5 Lymph # (Auto) 2.9 Banks # (Auto) 1.1 H Eos # (Auto) 0.2 Baso # (Auto) 0.1 Abs Immat Gran (auto) 0.08 H Imm/Tot Granulo (auto) 0.8 H PT 12.0 H INR 1.15 Sodium 137 136 Potassium 3.0 L 3.5 Chloride 99 100 Carbon Dioxide 30.2 28.7 Anion Gap 10.8 10.8 BUN 15.0 15.0 Creatinine 0.90 0.82 Est GFR ( Amer) >60 >60 Est GFR (Non-Af Amer) >60 >60 BUN/Creatinine Ratio 16.7 18.3 Glucose 102 118 H Lactate 1.0 Calcium 8.5 8.5 Total Bilirubin 1.6 H 1.9 H AST 32 31 ALT 20 22 Alkaline Phosphatase 65 74 Troponin I High Sens 26.0 NT-Pro-B Natriuret Pep 1567.0 900.0 Total Protein 7.7 7.5 Albumin 2.7 L 2.8 L Globulin 5.0 4.7 Albumin/Globulin Ratio 0.5 0.6 Urine Color Urine Clarity Urine pH Ur Specific Arthur Urine Protein Urine Glucose (UA) Urine Ketones Urine Occult Blood Urine Nitrite Urine Bilirubin Urine Urobilinogen Ur Leukocyte Esterase Urine RBC Urine WBC Ur Squamous Epith Cells Urine Crystals Urine Bacteria Urine Casts Urine Mucus Ur Culture Indicated? 03/25/24 09:16 WBC RBC Hgb Hct MCV MCH MCHC RDW Plt Count MPV Neut % (Auto) Lymph % (Auto) Banks % (Auto) Eos % (Auto) Baso % (Auto) Neut # (Auto) Lymph # (Auto) Banks # (Auto) Eos # (Auto) Baso # (Auto) Abs Immat Gran (auto) Imm/Tot Granulo (auto) PT INR Sodium Potassium Chloride Carbon Dioxide Anion Gap BUN Creatinine Est GFR ( Amer) Est GFR (Non-Af Amer) BUN/Creatinine Ratio Glucose Lactate Calcium Total Bilirubin AST ALT Alkaline Phosphatase Troponin I High Sens NT-Pro-B Natriuret Pep Total Protein Albumin Globulin Albumin/Globulin Ratio Urine Color Lt. yellow Urine Clarity Cloudy A Urine pH 7.5 Ur Specific Arthur 1.015 Urine Protein 30 A Urine Glucose (UA) Negative Urine Ketones Negative Urine Occult Blood Trace-i Urine Nitrite Positive A Urine Bilirubin Negative Urine Urobilinogen >=8.0 Ur Leukocyte Esterase Large A Urine RBC 2-5 A Urine WBC 75-100 A Ur Squamous Epith Cells Few A Urine Crystals None seen Urine Bacteria Moderate A Urine Casts None seen Urine Mucus None seen Ur Culture Indicated? Yes Discharge Plan Discharge Disposition: Home, Self-Care Condition: Fair Discharge Medications: New cefuroxime axetil 500 mg tablet 500 mg PO BID Qty: 10 0RF Continued buspirone 10 mg tablet 10 mg PO TID celecoxib 200 mg capsule 200 mg PO BID escitalopram oxalate 20 mg tablet 20 mg PO DAILY furosemide 40 mg tablet 40 mg PO DAILY latanoprost 0.005 % drops 1 drp OPHTHALMIC (EYE) DAILY metoprolol succinate 25 mg tablet extended release 24 hr 25 mg PO DAILY omeprazole 20 mg capsule,delayed release(DR/EC) 20 mg PO DAILY quetiapine 25 mg tablet 25 mg PO BID tizanidine 4 mg tablet 4 mg PO BEDTIME potassium chloride [Klor-Con M10] 10 mEq tablet,ER particles/crystals 10 meq PO DAILY melatonin 5 mg capsule 5 mg PO BEDTIME cetirizine [24Hour Allergy] 10 mg tablet 10 mg PO DAILY PRN (Reason: allergy symptoms) hcshdjxm-gawrd-ufz7-C-nicko-bor [Nrypatks-Dffdr-QAW(with boron)] 820-551-88-1 mg tablet 1 tab PO DAILY Activity: increase activity as tolerated Diet: advance to your usual diet Print Language: Egyptian Forms: Portal Instructions Follow Up Appointments: F/u with PCP in one week
--- NOTE | 2024-03-26 11:36 | SWNOTE1 ---
Pt is from [facility]. Pt will be discharged today and return to [facility]. SW called Angela at [facility] and she voiced they are ready for pt to return. Pt's daughter will be picking her up and taking her back.
--- NOTE | 2024-03-26 12:06 | CM.NOTE ---
Rounds made with Dr. Carrillo, discussed findings with daughter. Plan of care and discharge planning also reviewed with pt's daughter. Pt has f/u appointment with Dr. Souza this afternoon. Pt will keep this appointment. Pt will [facility] back to [facility] [address].
[2024-03-26] MEDS: CEFTRIAXONE 1,000 MG in 0.9 % SODIUM CHLORIDE 50 ML 100 MG IV (12:07)
[2024-03-26 12:14] VITALS: BP 114/66; PULSE 88; TEMP 36.6; O2SAT 92
--- NOTE | 2024-03-27 14:55 | CM.DCFOLLOWU ---
Pt is at [facility] [address] and has dementia
--- NOTE | 2024-03-29 12:46 | PC.NURSE ---
Urine culture result faxed to Med Surg at this time.
== END 2024-03-26 15:10 | disposition home or self-care (01) ==
LOC: ER 12:03 → MS 03-26 09:18
PROVIDERS: Admitting Provider Internal Medicine; Emergency Provider Student in an Organized Health Care Education/Training Program; PCP Internal Medicine; Visit Provider Internal Medicine
DX: I50.33 Acute on chronic diastolic (congestive) heart failure (principal); G93.41 Metabolic encephalopathy; J96.01 Acute respiratory failure with hypoxia; N39.0 Urinary tract infection, site not specified; F02.B2 Dementia in other diseases classified elsewhere, moderate, with psychotic disturbance; D84.9 Immunodeficiency, unspecified; G47.30 Sleep apnea, unspecified; R53.1 Weakness; G30.1 Alzheimer's disease with late onset; L40.50 Arthropathic psoriasis, unspecified; B96.1 Klebsiella pneumoniae [K. pneumoniae] as the cause of diseases classified elsewhere; Z91.81 History of falling
CPT/HCPCS: 36415; 70450; 71045; 71250; 72125; 73502; 80053; 81001; 83605; 83880; 84484; 85025; 85610; 87040; 87086; 87150; 87186; 93005; 94640; 94761; 96365; 96366; 96372; 96375; 96376; 97161; 97165; 99285; G0378; J0696; J1650; J1940

== ENCOUNTER 2024-04-12 09:13 | Outpatient (REF) | payer MEDICARE, SELFPAY ==
[2024-04-12 09:51] LABS: Bilirubin Urine NEGATIVE (NEGATIVE); Blood Urine TRACE-I (NEGATIVE); Clarity Urine CLEAR (CLEAR); Color Urine LT. YELLOW (YELLOW); Glucose Urine UA NEGATIVE (NEGATIVE); Ketones Urine NEGATIVE (NEGATIVE); Leukocyte Esterase Urine LARGE (NEGATIVE); Nitrite Urine POSITIVE (NEGATIVE); Protein Urine NEGATIVE (NEG/TRACE); Specific Gravity Urine 1.015 (1.005-1.025); pH Urine 5.5 (5.0-9.0)
[2024-04-12 10:06] LABS: Urine Microscopic Indicated YES
[2024-04-12 10:07] LABS: WBC Urine >100 #/HPF (NONE SEEN)
[2024-04-12 10:09] LABS: Bacteria Urine MODERATE #/HPF (NONE SEEN); Mucus Urine NONE SEEN (NONE SEEN); Squamous Epithelial Cell Urine RARE #/LPF (NONE/RARE)
[2024-04-12 10:19] LABS: Urine Culture Indicated YES
== END 2024-04-12 09:14 | disposition home or self-care (01) ==
LOC: LAB 09:13
PROVIDERS: PCP Internal Medicine; Visit Provider Internal Medicine
DX: R30.0 Dysuria (principal); Z87.440 Personal history of urinary (tract) infections
CPT/HCPCS: 81001; 87086; 87150; 87186

== ENCOUNTER 2025-03-24 15:38 | Inpatient (IN) | payer MEDICARE, SELFPAY ==
[2025-03-24] VITALS (32 sets, daily range): BP systolic 84–146; BP diastolic 47–72; PULSE 60–89; TEMP 36.8; O2SAT 85–100; BMI 40.2; BMI 35.6
--- NOTE | 2025-03-24 15:42 | XR_ITS ---
[address] [address] Patient Name: SHAHBAZ CARIAS MRN: [id number] date: 1940 Sex: F Assigned Patient Location: ED.MAIN Current Patient Location: ED.MAIN Accession/Order Number: [id number] Exam Date: 03/24/2025 16:52 Report Date: 03/24/2025 16:54 At the request of: PRAFUL WALKER Procedure: XR chest 1V Single view chest: CLINICAL HISTORY: fever altered mental status. COMPARISON: CT chest 03/25/2024 FINDINGS: Cardiomegaly with prominent SVC shadow. Vascular congestion. No pneumothorax, large pleural effusion or free air. XR/XR chest 1V IMPRESSION: CHF FINDINGS. RIGHT UPPER LOBE AIRSPACE DISEASE CANNOT BE EXCLUDED. Impression dictated by: Jefry Montgomery Jr., D.O. 03/24/2025 4:54 PM Dictation Location: [place] [address] Electronically authenticated by: [id number] Y Date: 03/24/2025 16:54
--- NOTE | 2025-03-24 15:42 | ECG_ITS ---
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 Measurements Intervals [place] Rate: 78 P: 49 [place]: 180 QRS: 42 QRSD: 80 T: 70 QT: 386 QTc: 420 Interpretive Statements 1100 Sinus rhythm 1574 with frequent ventricular premature complexes 8102 Low QRS voltage in chest leads abnormal ECG Compared to ECG 03/25/2024 09:31:09 Ventricular premature complex(es) now present Low QRS voltage now present Electronically Signed On 03-25-2025 17:43:20 EDT by ARIA FISH M.D.
--- NOTE | 2025-03-24 15:42 | CT_ITS ---
The [address] [address] Patient Name: SHAHBAZ CARIAS MRN: [id number] date: 1940 Sex: F Assigned Patient Location: ED.MAIN Current Patient Location: ED.MAIN Accession/Order Number: [id number] Exam Date: 03/24/2025 16:54 Report Date: 03/24/2025 16:55 At the request of: PRAFUL WALKER Procedure: CT head/brain wo con CT BRAIN WITHOUT CONTRAST: CLINICAL HISTORY: altered mental status. COMPARISON: CT brain 03/25/2024 TECHNIQUE: Contiguous axial unenhanced images were obtained through the brain. This CT exam was performed using one or more following dose reduction techniques: Automated exposure control, adjustment of the mA and/or kV according to patient size, or use of iterative reconstruction technique. FINDINGS: There is no evidence of midline shift, intra or extra-axial fluid collection, hemorrhage or CT evidence of stroke. Cortical atrophy with chronic microvascular ischemic changes. Posterior fossa appears unremarkable. Visualized intraorbital contents demonstrate no acute findings. Visualized paranasal sinuses are clear. The surrounding soft tissues are normal. CT/CT head/brain wo con IMPRESSION: NO ACUTE INTRACRANIAL ABNORMALITY. Impression dictated by: Jefry Montgomery Jr., D.O. 03/24/2025 4:55 PM Dictation Location: [place] [address] Electronically authenticated by: [id number] Y Date: 03/24/2025 16:55
--- NOTE | 2025-03-24 15:45 | ED.GENADUL1 ---
HPI HPI - General Adult General Chief complaint: Altered Mental Status Stated complaint: ALTERED MENTAL STATUS Time Seen by Provider: 03/24/25 15:42 Source information: EMS Mode of arrival: ambulance History of Present Illness HPI narrative: 84-year-old female DNR [facility] history of dementia presents from assisted living facility for evaluation of increased confusion and fever with generalized weakness. EMS states they got called for generalized aches and pains. States she stands with a one-to-one assist using a gait belt and complained of bodyaches and knee pain. No report of fall. She was noted to have a fever of 101 per EMS and had a strong odor of urine concerning for possible UTI. The patient is pleasantly confused and open her eyes easily to verbal interaction and smiles but does not readily recall her name or recent events. EMS states they do not have a baseline for her mentation but states that when her daughter visited her thought she feels more confused than normal. Patient appears in no distress, but is a poor historian regarding recent events. EMS describes her assisted living area as a house that was converted into a fdc type setting. Patient denies any complaints such as joint pain, back pain, abdominal pain or chest pain. She also denies headache. Patient appears in no distress and follows commands readily with the ability to independently elevate both legs and do [id number] with both hands with equal lathe setup operator strength. Related Data Home Medications ?Medication ?Instructions ?Recorded ?Confirmed celecoxib 200 mg capsule 200 mg PO BID 03/25/24 03/24/25 cetirizine 10 mg tablet (24Hour 10 mg PO DAILY PRN allergy symptoms 03/25/24 03/24/25 Allergy) escitalopram oxalate 20 mg tablet 20 mg PO DAILY 03/25/24 03/24/25 furosemide 40 mg tablet 40 mg PO DAILY 03/25/24 03/24/25 latanoprost 0.005 % eye drops 1 drp ophthalmic (eye) DAILY 03/25/24 03/24/25 metoprolol succinate 25 mg 25 mg PO DAILY 03/25/24 03/24/25 tablet,extended release 24 hr omeprazole 20 mg capsule,delayed 20 mg PO DAILY 03/25/24 03/24/25 release potassium chloride 10 mEq 10 meq PO DAILY 03/25/24 03/24/25 tablet,extended release(part/cryst) (Klor-Con M) quetiapine 25 mg tablet 25 mg PO BID 03/25/24 03/24/25 famotidine 20 mg tablet (Pepcid) 20 mg PO DAILY 03/24/25 03/24/25 trazodone 50 mg tablet 25 mg PO .QHS PRN insomnia 03/24/25 03/24/25 Allergies Allergy/AdvReac Type Severity Reaction Status Date / Time No Known Drug Allergies Allergy Verified 03/25/24 08:58 Opioid HPI Opioid Management Most Recent Opioid Data: Last Pain Scale 5 03/26/24, 04:23 Last ORT Total Score 3 03/25/24, 12:28 Last ORT Risk Category Low Risk 03/25/24, 12:28 Review of Systems ROS Status of ROS unobtainable due to mental status PFSH PFS Medical History (Updated 03/24/25 @ 17:54 by DENISE Crisostomo) Accidental fall ?W19.XXXA - Unspecified fall, initial encounter (ICD-10) Acute UTI (urinary tract infection) ?N39.0 - Urinary tract infection, site not specified (ICD-10) Osteoarthritis ?M19.90 - Unspecified osteoarthritis, unspecified site (ICD-10) Dementia ?F03.90 - Unspecified dementia, unspecified severity, without behavioral disturbance, psychotic disturbance, mood disturbance, and anxiety (ICD-10) Glaucoma ?H40.9 - Unspecified glaucoma (ICD-10) PSVT (paroxysmal supraventricular tachycardia) ?I47.10 - Supraventricular tachycardia, unspecified (ICD-10) Spinal stenosis ?M48.00 - Spinal stenosis, site unspecified (ICD-10) Psoriatic arthritis ?L40.50 - Arthropathic psoriasis, unspecified (ICD-10) Surgical History (Updated 03/25/24 @ 12:52 by Estefani Quinones) History of nasal surgery ?Z98.890 - Other specified postprocedural states (ICD-10) Hx of foot surgery ?Z98.890 - Other specified postprocedural states (ICD-10) H/O laminectomy ?Z98.890 - Other specified postprocedural states (ICD-10) Social History (Updated 03/25/24 @ 12:53 by Estefani Quinones) Within the past year, how often did you have a drink containing alcohol: never Score interpretation: A score less than 3 is consistent with normal alcohol consumption. 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 The patient is not hypoxic. General: The patient appears well and in no apparent distress. Patient is resting comfortably on cart. Smiles when spoken too and opens her eyes. Skin: Warm, dry, no pallor noted. The patient has no evidence of rash, petechiae, or purpura noted. Head: Normocephalic, atraumatic, no temporal arterial tenderness Neck: Supple, trachea mid-line, no tenderness, no lymphadenopathy. No meningeal signs. No nuchal rigidity. Eye: Pupils are equal, round and reactive to light, EOMI Ears, Nose, Mouth, and Throat: Oral mucosa is dry. TMs are clear bilaterally with limited visual secondary to cerumen. no hemotympanum noted. Cardiovascular: Regular Rate and Rhythm Respiratory: Patient is in no distress, no accessory muscle use, lungs are clear to auscultation, no wheezing, dimished in bases. no course crackles or Sacral edema. Back: non-tender, no CVA tenderness Musculoskeletal: normal ROM, no tenderness, no pitting edema , limited compliance for strength testing. Ankle Dorsiflexion plantar flexion 5/5 bilateral. Normal pulses to radial 2+ bilaterally and 2+ PT bilaterally. Retail Sales Clerk is 5/5 symmetrically. SLR intact. Pt has no pain with passive motion of bilateral knees, hips and shoulders. GI: Normal bowel sounds, no tenderness to palpation, no masses appreciated. No rebound, guarding, or rigidity noted. Neurological: A&O person and responds to verbal stimuli and recognizes her own name after she hears it. Yes that is me. , normal equal lathe setup operator strength, normal finger to nose, no pronator drift. The patient was not ambulated with EMS noting 2 person assist with gait belt to get her to caught. The patient has normal speech. The patient has normal coordination while seated following command . Normal motor and sensory observed. Psychiatric: Cooperative but pleasantly confused. Constitutional Vital Signs, click to edit/add: Last Vital Signs Temp 98.2 F 03/24/25 15:51 Pulse 77 03/24/25 17:30 Resp 30 H 03/24/25 17:30 BP 146/58 H 03/24/25 17:30 Pulse Ox 97 03/24/25 17:30 O2 Del Method Room Air 03/24/25 15:59 O2 Flow Rate 2 03/24/25 15:59 Course Vital Signs Vital signs: Vital Signs Pulse Rate 80 03/24/25 15:47 Respiratory Rate 21 H 03/24/25 15:47 Temperature 98.2 F 03/24/25 15:51 Pulse Rate 77 03/24/25 17:30 Respiratory Rate 30 H 03/24/25 17:30 Blood Pressure 146/58 H 03/24/25 17:30 Pulse Oximetry 97 03/24/25 17:30 Oxygen Delivery Method Room Air 03/24/25 15:59 Oxygen Delivery Flow Rate 2 03/24/25 15:59 Medical Decision Making MDM Narrative Medical decision making narrative: Limited history from EMS patient pleasantly confused history of dementia report of increased confusion generalized weakness and bodyaches. There is no clinical exam concerning for an acute joint infection with generalized inspection. Patient did have temperature per EMS and was given Tylenol here 1 g with blood cultures and other supporting labs pending. CT of the brain and chest x-ray performed, by history the urine appears to be the most likely culprit as there is no report of illness otherwise.. PT initially hypotensive and treated with 500ml increments of fluid bolus as there is a history of Diuretic use and normal reported BP at Facility. Repeat EKG done 16:03 Noting [place] and occasional runs of VPC, this is visible on monitor, but patient is asymptomatic and has no complaints. Patient's daughter Linh presented at the bedside. We discussed history provided by the care center and she corroborates this report states that she has noticed a change in her mother's ability to walk today but she has had days where she has had days that are worse than others. Her mentation also seemed a little bit more decreased or somnolent from previous. Discussed her presentation with normal vitals from the facility, fever reported per EMS but normal temperature here. Her initial blood pressure was low 84 systolic and she received a 500 L IV fluid bolus, with improvement to 104 systolic. she remained asymptomatic and without complaints throughout her stay. We did give an additional 500 mL IV fluid bolus completing the EMS initiated IV fluids with her blood pressure coming up to 102/58. Patient's daughter confirmed that she does not take any hypertensive medication. She is on metoprolol and Lasix for some mild heart failure. Affirms that her heart has had arrhythmias in the past as we discussed her runs of bigeminy and PVCs. Her last urine culture here almost a year ago did show Klebsiella with multiple sensitivities. Patient states she has been treated multiple times with antibiotics and was resistant requiring IM gent before consultation with Dr. Ware who advised that she was colonized and did not treat unless she had clinical symptoms. The patient today appears to be early in a sepsis prodrome and her benign vital signs from the facility. Discussed with Dr. Larry rabago with the permission from patient's daughter to last admission. We discussed her urine possibly being the source of infection with elevated white blood cell count and lactic he requested cefepime initially which is not available at our facility and when contacted again was agreeable to IV Zosyn and aware of her heart failure symptoms and chest x-ray recommended an additional 1 L IV fluids as part of her treatment plan. Patient admitted inpatient for UTI sepsis Differential Diagnosis Differential Diagnosis: Sepsis, UTI, progressive Alzheimer's HF, Psoriatic arthritis flare Medical Records Medical records reviewed: Yes I reviewed the patient's medical records Medical records narrative: Reviewed records from [facility] assisted living-patient has a signed DNR [facility] arrest form from July 2023. History noted for Alzheimer dementia, compulsive skin picking, psoriatic arthritis, depression, obstructive sleep apnea, obesity, paroxysmal SVT. Report from care facility with vitals at 2:30 PM noted a blood pressure of 118/64 heart rate of 60 pulse ox room air 94%. Patient weighed 189 pounds on 02/12/20152024. They report the patient walks with a walker and one-person standby for safety but since December she has become more stubborn or lazy with walking and wanting to do anything. This has been worse since February 27 per staff notes when she saw Dr. Tobi morton. 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 Since last week she has not wanted to walk for the staff she has needed to be very persistent with her and at times she does not want to feed herself but it usually if we get her started she will finish feeding herself. She was able to stand for the aide to wash her and change her bottom and pants when she sat back down on the toilet she then stood up again and pivoted but buckled on her knees gait belt was on and they lowered her to the floor but she did not hit her head or land hard.. EMS was called for evaluation given her progressive deterioration. Linh Riley was notified per notes. of Angela Richard RN: Lab Data Labs: Lab Results 03/24/25 03/24/25 Range/Units 16:25 17:08 WBC 12.4 H (4.0-11.0) 10^3/uL RBC 4.27 (4.20-5.40) 10^6/uL Hgb 14.0 (12.0-16.0) g/dL Hct 41.7 (36.0-48.0) % MCV 97.7 (81.0-99.0) fL MCH 32.8 (26.7-34.0) pg MCHC 33.6 (29.9-35.2) g/dL RDW 13.0 (11.0-15.0) % Plt Count 169 (150-450) 10^3/uL MPV 10.1 (9.5-13.5) fL Neut % (Auto) 81.5 H (43.0-75.0) % Lymph % (Auto) 13.0 L (20.5-60.0) % [place] % (Auto) 4.5 (1.7-12.0) % Eos % (Auto) 0.4 L (0.9-7.0) % Baso % (Auto) 0.3 (0.2-2.0) % Neut # (Auto) 10.1 H (1.4-6.5) 10^3/uL Lymph # (Auto) 1.6 (1.2-3.8) 10^3/uL [place] # (Auto) 0.6 (0.3-0.8) 10^3/uL Eos # (Auto) 0.1 (0.0-0.7) 10^3/uL Baso # (Auto) 0.0 (0.0-0.1) 10^3/uL Abs Immat Gran (auto) 0.04 H (0.00-0.03) 10^3/uL Imm/Tot Granulo (auto) 0.3 (0.0-0.5) % Sodium 139 (136-145) mmol/L Potassium 3.4 L (3.5-5.1) mmol/L Chloride 105 (98-107) mmol/L Carbon Dioxide 28.1 (21.0-32.0) mmol/L Anion Gap 9.3 BUN 11.0 (7.0-18.0) mg/dL Creatinine 0.87 (0.55-1.02) mg/dL Est GFR ( Amer) >60 (>=60 mL/min/1.73m^2) Est GFR (Non-Af Amer) >60 (>=60 mL/min/1.73m^2) BUN/Creatinine Ratio 12.6 Glucose 168 H (74-106) mg/dL Lactate 2.5 H* (0.4-2.0) mmol/L Calcium 8.3 L (8.5-10.1) mg/dL Total Bilirubin 0.8 (0.2-1.0) mg/dL AST 18 (15-37) U/L ALT 16 (14-59) U/L Alkaline Phosphatase 105 (46-116) U/L Troponin I High Sens 13.2 (4.0-51.3) pg/mL NT-Pro-B Natriuret Pep 1291.0 (<=1800.0) pg/mL Total Protein 7.9 (6.4-8.2) g/dL Albumin 3.2 L (3.4-5.0) g/dL Globulin 4.7 g/dL Albumin/Globulin Ratio 0.7 TSH & Free T4 Interp 0.921 (0.358-3.740) uIU/mL Urine Color Lt yellow (YELLOW) Urine Clarity Cloudy A (CLEAR) Urine pH 6.0 (5.0-9.0) Ur Specific [place] 1.015 (1.005-1.025) Urine Protein Negative (NEG/TRACE) mg/dL Urine Glucose (UA) Negative (NEGATIVE) mg/dL Urine Ketones Negative (NEGATIVE) mg/dL Urine Occult Blood Small A (NEGATIVE) Urine Nitrite Negative (NEGATIVE) Urine Bilirubin Negative (NEGATIVE) Urine Urobilinogen 0.2 (0.2-1.0) EU/dL Ur Leukocyte Esterase Large A (NEGATIVE) Urine RBC 10-20 A (0-2) #/HPF Urine WBC >100 A (NONE SEEN) #/HPF Ur Squamous Epith Cells Moderate A (NONE/RARE) #/LPF Urine Crystals None seen (None Seen) #/HPF Urine Bacteria Moderate A (NONE SEEN) #/HPF Urine Casts None seen (NONE SEEN) #/LPF Urine Mucus Trace A (NONE SEEN) Ur Culture Indicated[place] [place] scan - head: Radiologist's impression: ITS Impressions Chest X-Ray 03/24/25 15:42 IMPRESSION: CHF FINDINGS. RIGHT UPPER LOBE AIRSPACE DISEASE CANNOT BE EXCLUDED. Impression dictated by: Jefry Montgomery Jr., D.O. 03/24/2025 4:54 PM Dictation Location: [facility] Electronically authenticated by: [id number] Y Date: 03/24/2025 16:[address] 03/24/25 15:42 IMPRESSION: NO ACUTE INTRACRANIAL ABNORMALITY. Impression dictated by: Jefry Montgomery Jr., D.O. 03/24/2025 4:55 PM Dictation Location: [employer] Electronically authenticated by: [id number] Y Date: 03/24/2025 16:55 ECG Data Attestation: I personally reviewed and interpreted this ECG as follows: Interpretation: EKG interpretation: Emergency Department physician interpretation, normal sinus rhythm 78 bpm. occasional PVC noted. no ST segment elevation, normal axis. Discharge Plan Discharge Chief Complaint: Altered Mental Status Clinical Impression: Sepsis, UTI (urinary tract infection), Generalized weakness Patient Disposition: Admitted As Inpatient Condition: Fair
--- NOTE | 2025-03-24 16:03 | ECG_ITS ---
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 Measurements Intervals [place] Rate: 78 P: -[id number] IN: -[id number] QRS: 96 QRSD: 132 T: -76 QT: 408 QTc: 442 Interpretive Statements SINUS RHYTHM with frequent ventricular premature complexes 8102 Low QRS voltage in chest leads 9150 abnormal ECG Compared to ECG 03/24/2025 15:47:27 Ventricular premature complexes are still present Electronically Signed On 03-25-2025 17:45:13 EDT by ARIA FISH M.D.
[2025-03-24] MEDS: ACETAMINOPHEN 500 MG TABLET 1000 MG PO (16:08)
[2025-03-24] MEDS: 0.9 % SODIUM CHLORIDE 1,000 ML 500 ML IV (16:08)
--- OUTSIDE RECORDS SUMMARY | 2025-03-24 16:15 | XMS_ITS | CCD ---
Author Organization [facility] CliniSynv Care Team Providers Care Client Technologies Specialist Name Role Phone EDMOND PACHECO Primary Care Unavailable JUNIOR, EDMOND Admitting Unavailable BALL, EDMOND Attending Unavailable BALL, EDMOND Consulting Unavailable BALL, EDMOND Admitting Unavailable BALL, EDMOND Attending Unavailable BALL, EDMOND Consulting Unavailable JUNIOR, EDMOND Primary Care Unavailable EDMOND PACHECO Primary Care Physician MD Luciano Taylor Attending Provider [phone] NON STAFF Primary Care Provider Unavailangel Verduzco, PhD [facility] Attending Provider [phone] Rojas Brown Primary Care Provider NON STAFF Primary Care Provider UnavailMD Luciano Meehan Attending Provider [phone] Rojas Brown Primary Care Provider [phone] RICCARDO Jackson Attending Provider Edmond Pacheco Unavailable DO Edmond Pacheco Primary Care Provider ObRICCARDO cano Attending Provider Tana Lares Unavailable Unavailable ROJAS BROWN Primary Care Unavailable CHAPARRO YARBROUGH Attending Unavailable QUIANA WATERMAN Attending Unavailable ROJAS BROWN Primary Care Unavailable Thai Patel MD Primary Care Provider DO Edmond Pacheco Primary Care Provider RICCARDO Jackson Attending Provider DENNISE SOL Attending Unavailable THAI PATEL Primary Care Unavailable GUY PATELF Munira Primary Care Unavailable ANT KIRK Attending Unavailable GUY PATELF Munira Primary Care Unavailable AYANA KING Attending Unavailable [facility]available AYANA KING Attending Unavailable [facility] Primary Care Unavailable ANT KIRK Attending Unavailable PATELRENAE PAIZHIF Primary Care Physician Rojas Brown Primary Care Provider [phone] [facility] THAI Primary Care Unavailable DOUG Thomas Attending Unavailable DOUG Thomas Admitting Unavailable BALL, EDMOND Admitting Unavailable BALL, EDMOND Attending Unavailable [facility] Nan Ibrahim Attending Unavaila ble PASCALE, Inderjit Attending Unavailable Chaparro Hanna Attending Unavailable PASCALE, Inderjit Attending Unavailable BALL, EDMOND Attending Unavailable BALL, EDMOND Admitting Unavailable BALL, EDMOND Attending Unavailable BALL, EDMOND Admitting Unavailable BALL, EDMOND Attending Unavailable BALL, EDMOND Admitting Unavailable Crestwood, Austyn Consulting Unavailable Valente SALEEM Attending Unavailable Reuben DREW Admitting Unavailable MD Austyn Campos Consulting Unavailable Crestwood, Austyn Consulting Unavailable Crestwood, Austyn Consulting Unavailable Crestwood, Austyn Consulting Unavailable Crestwood, Austyn Consulting Unavailable Crestwood, Austyn Consulting Unavailable Crestwood, Austyn Consulting Unavailable Crestwood, Austyn Consulting Unavailable Alex Bhatti Attending Unavailable Crestwood, Austyn Consulting Unavailable Reuben DREW Admitting Unavailable MD Austyn Campos Consulting Unavailable Crestwood, Austyn Consulting Unavailable Crestwood, Austyn Consulting Unavailable Crestwood, Austyn Consulting Unavailable Crestwood, Austyn Consulting Unavailable Crestwood, Austyn Consulting Unavailable Crestwood, Austyn Consulting Unavailable Crestwood, Austyn Consulting Unavailable PATELRENAE PAIZHIF Primary Care Unavailable DOUG Thomas Attending Unavailable DOUG Thomas Admitting Unavailable NONE, XXXX Referring Unavailable Inderjit ASHRAF Attending Unavailable Inderjit ASHRAF Admitting Unavailable DOUG Thomas Admitting Unavailable DOUG Thomas Attending Unavailable DOUG Thomas Referring Unavailable PATELRENAE PAIZHIF Primary Care Unavailable David Calderon Consulting Unavailable David Calderon Consulting Unavailable David Calderon Consulting Unavailable DOUG Thomas Admitting Unavailable DOUG Thomas Attending Unavailable PATEL, [facility] Primary Care Unavailable BALL, EDMOND Admitting Unavailable BALL, EDMOND Attending Unavailable PATEL, [facility] Primary Care Unavailable BALL, EDMOND Admitting Unavailable PATEL, [facility] Primary Care Unavailable BALL, EDMOND Attending Unavailable Karlee Montes De Oca Attending Unavailable PATEL, [facility] Primary Care Unavailable BALL, EDMOND Admitting Unavailable PATEL, [facility] Primary Care Unavailable BALL, EDMOND Attending Unavailable PATEL, [facility] Primary Care Unavailable PATEL, [facility] Primary Care Unavailable BALL, DEMOND Attending Unavailable BALL, EDMOND Admitting Unavailable BALL, EDMOND Admitting Unavailable BALL, EDMOND Attending Unavailable PATEL, [facility] Primary Care Unavailable BALL, EDMOND Admitting Unavailable BALL, EDMOND Attending Unavailable PATEL, [facility] Primary Care Unavailable BALL, EDMOND Admitting Unavailable BALL, EDMOND Attending Unavailable PATEL, [facility] Primary Care Unavailable Karlee Montes De Oca Attending Unavailable PATEL, [facility] Primary Care Unavailable DOUG CARVAJAL Admitting Unavailab le JANETTEDOUG Attending Unavailab le JANETTEDOUG Referring Unavailab le PATEL, [facility] Primary Care Unavailable PATEL, [facility] Primary Care Unavailable BALL, EDMOND Admitting Unavailable BALL, EDMOND Attending Unavailable JANETTEDOUG RAYGOZA Admitting Unavailab le JANETTE, DOUG Kwan Attending Unavailab le PATEL, [facility] Primary Care Unavailable JANETTEDOUG Attending Unavailab le PATEL, [facility] Primary Care Unavailable JANETTEDOUG Attending Unavailab le PATEL, [facility] Primary Care Unavailable Junior BRYANT Edmond Primary Care Provider Sunny Taylor MD Attending Provider Edmond Pacheco DO Attending Provider Sunny Taylor Attending Unavailable Sunny Taylor Admitting Unavailable Ball, Edmond Primary Care Unavailable Allergies Allergy Classification Reported Allergen(s) Allergy Type Date of Onset Reaction(s) Facility (12 sources) Cortisone; Translations: [CORTISONE] Drug Allergy 05-15-20 13 spinal fluid suppresion and headaches [facility] Repository (20 sources) Cortisone; Translations: [cortisone] Drug Allergy 05-20-20 17 Other: See Comments, Other (See Comments) [facility] (20 sources) methylPREDNISolon e; Translations: [methylprednisolo ne] Drug Allergy 08-30-19 Other: See Comments, Other (See Comments) [facility] Work Phone: (20 sources) cortizone injections Propensity to adverse reactions spinal fluid suppresion and headaches [facility] Other (2 sources) patient allergy list reviewed by nurse or physicia Propensity to adverse reactions 08-22-19 Comment:Done [employer] Other (20 sources) Substance with penicillin structure and antibacterial mechanism of action (substance) Drug allergy Comment:[facility]ellie [facility] [employer] Other (1 source) Penicillins Allergy to substance 06-21-20 Comment:[facility] (9 sources) No Known Medication Allergies; Translations: [No Known Medication Allergies] Propensity to adverse reactions (disorder) [facility] Repository (7 sources) Penicillin; Translations: [penicillin] Drug Allergy Unknown (qualifier value) [facility] Medications Current Medications Medication Drug Class(es) Dates Sig (Normalized) Sig (Original) ##### (12 sources) Start: 03-02-2024 ##### 30 tab(s), 0 Refill(s) Start Date: 03/02/24 Status: Ordered amLODIPine 2.5 mg oral tablet (13 sources) Dihydropyridine Calcium Channel Walt Start: 08-30-2023 take 2 tablets by mouth once daily Norvasc 2.5 mg Tab 5 mg = 2 tab(s), Oral, Daily, Refills(s) 0 Start Date: 08/30/23 Status: Ordered amoxicillin 875 mg / clavulanate 125 mg oral tablet (9 sources) Penicillin-class Antibacterial Start: 10-11-2022 take 1 tablet by mouth every twelve hours Amoxicillin-Pot Clavulanate 875-125 MG 1 tablet Orally every 12 hrs for 7 days Oct, Active ascorbic acid 2000 mg oral tablet (2 sources) Vitamin C Start: 07-12-2024 take 2000 mg by mouth once daily Vitamin C 2,000 mg, Oral, Daily Start Date: 07/12/24 Status: Ordered aspirin 81 mg delayed release oral tablet (20 sources) Platelet Aggregation Inhibitor, Nonsteroidal Anti-inflammatory Drug Start: 07-13-2023 take 1 tablet by mouth once daily aspirin 81 mg Oral EC Tab 81 mg = 1 tab(s), Oral, Daily, Refills(s) 0 Start Date: 07/13/23 Status: Ordered take 1 tablet by colton th every twenty-four hours Aspirin 81 MG 1 tablet Orally Once a day Active Comment on above: Take 81 mg by mouth once daily. Betamethasone / Clotrimazole (10 sources) Azole Antifungal, Corticosteroid Lotrisone Active Centrum Silver (1 source) Start: 03-10-20 take 1 tablet by mouth once daily Centrum Silver 1 tab(s), Oral, Daily, Refill(s) 0 Start Date: 03/10/23 Status: Ordered cephalexin 500 mg oral capsule (7 sources) Cephalosporin Antibacterial Start: 01-30-20 take 1 capsule by mouth three times daily Keflex 500 mg Cap 500 mg = 1 cap(s), Oral, TID, # 30 cap(s), Refills(s) 0 Start Date: 01/29/21 Status: Ordered Cetirizine (20 sources) Histamine-1 Receptor Antagonist Start: 07-02-20 cetirizine 10 mg, Daily Start Date: 07/02/24 Status: Ordered Start: 05-03-2024 take 1 tablet by colton th once daily as needed Cetirizine 10 mg tablet Active 0 .ROUTE .COMPLEX May 03, 2024 2:22pm TAKE ONE TABLET BY MOUTH DAILY NEEDED FOR RASH Complies with drug therapy Start: 03-22-2024 End: 05-03-2024 take 1 capsule by mouth once daily as needed Cetirizine (Zyrtec) 10 mg capsule Discontinued 10 MG PO Daily as needed for rash March 26, 2024 4:32pm May 03, 2024 2:23pm Start: 03-14-2023 take 1 capsule by mo [facility] at bedtime cetirizine 10 mg oral capsule 10 mg = 1 cap(s), Oral, Bedtime, # 40 cap(s), Refills(s) 0, Pharmacy: [facility]/pharmacy #[id number], 152, cm, 03/10/23 11:33:00 EDT, Height/Length Dosing, 78, kg, 03/10/23 11:33:00 EDT, Weight Dosing Start Date: 03/14/23 Status: Ordered take 1 tablet by colton th every twenty-four hours Cetirizine HCl 10 MG 1 tablet Orally Once a day Active Chondroitin Sulfates / Glucosamine (4 sources) Start: 07-12-2024 take 1 capsule by mouth three times daily Glucosamine Chondroitin 1 cap, Oral, TID Start Date: 07/12/24 Status: Ordered Start: 03-22-2024 Glucosamine Ruby 2kcl-Chondroit 750-600 mg tablet Active TAB PO March 22, 2024 12:00am Complies with drug therapy Cranberry preparation (2 sources) Non-Standardized Food Allergenic Extract, Non-Standardized Plant Allergenic Extract Start: 07-12-2024 take 4200 mg by mouth twice daily Cranberry 4,200 mg, Oral, BID Start Date: 07/12/24 Status: Ordered d-mannose (2 sources) Start: 07-12-2024 take 2000 mg by mouth once daily d-mannose d-mannose, 2,000 mg, Oral, Daily Start Date: 07/12/24 Status: Ordered diphenhydrAMINE hydrochloride 20 mg/ml / zinc acetate 1 mg/ml topical cream (5 sources) Histamine-1 Receptor Antagonist Benadryl Extra Strength 2-0.1 % apply to affected area topically every 4 hours as needed for itch Active docusate sodium 100 mg oral capsule (6 sources) Start: 03-15-2025 take 1 capsule by mouth twice daily Docusate Sodium 100 mg capsule Active 100 MG PO Twice daily March 15, 2025 12:00am Complies with drug therapy Start: 07-02-2024 docusate 50 mg , BID Start Date: 07/02/24 Status: Ordered donepezil hydrochloride 10 mg oral tablet (20 sources) Start: 03-16-2023 take 1 tablet by mouth once daily at bedtime Aricept 10 mg Tab 10 mg = 1 tab(s), Oral, Once a day (at bedtime), # 30 tab(s), Refills(s) 0, other reason (Rx) Start Date: 03/16/23 Status: Ordered Start: 03-10-2023 take 1 tablet by colton th once daily at bedtime Aricept 5 mg Tab 5 mg = 1 tab(s), Oral, Once a day (at bedtime), Refills(s) 0 Start Date: 03/10/23 Status: Ordered Start: 08-02-2022 take 5 mg by mouth o nce daily at bedtime donepezil (ARICEPT) 10 mg tablet Take 5 mg by mouth daily at bedtime. 0 08/02/2022 Active Comment on above: Take 5 mg by mouth d aily at bedtime. [id number] 0.3 ml EPINEPHrine 1 mg/ml auto-injector (7 sources) alpha-Adrenergic Agonist, beta-Adrenergic Agonist, Catecholamine Start: 03-07-20 EPINEPHrine (EPIPEN) 0.3 mg/0.3 mL auto-injector escitalopram 20 mg oral tablet (20 sources) Serotonin Reuptake Inhibitor Start: 03-07-20 take 1 tablet by mouth once daily Escitalopram Oxalate 20 mg tablet Active 20 MG PO Daily March 07, 2025 12:00am Complies with drug therapy Start: 05-10-2022 End: 12-02-2024 take 1 tablet by mouth once daily Escitalopram Oxalate (Lexapro) 20 mg tablet Discontinued 20 MG PO Daily March 26, 2024 4:33pm July 11, 2024 10:39pm Comment on above: Take 20 mg by mouth daily at bedtime. estradiol 0.1 mg/ml vaginal cream (7 sources) Estrogen Start: 07-16-2024 Estradiol 0.01 % (0.1 mg/gram) cream Active VAGINAL July 16, 2024 1:00am Complies with drug therapy Start: 07-02-2024 Estrace 0.1 mg /g Cream See Instructions, 42.5 gm, Refill(s) 6, apply a pea-sized amount vaginally and around the urethra nightly x 3 weeks, then 3x per week thereafter, [id number], 153, cm, 07/02/24 14:02:00 EST, Height/Length Dosing, 95.6, kg, 07/02/24 14:02:00 EST, Weight Dosing Start Date: 07/02/24 Status: Ordered famotidine 20 mg oral tablet (1 source) Histamine-2 Receptor Antagonist Start: 03-15-2025 take 1 tablet by mouth once daily Famotidine 20 mg tablet Active 20 MG PO Daily March 15, 2025 12:00am Complies with drug therapy Fish Oils (7 sources) Start: 03-10-2023 take 1 tablet by mouth once daily Fish Oil 1 tab, Oral, Daily, Refills(s) 0 Start Date: 03/10/23 Status: Ordered Folate 0.4 mg Tab (10 sources) Start: 02-04-2021 take 1 tablet by mouth once daily Folate 0.4 mg Tab 0.4 mg = 1 tab(s), Oral, Daily, Prophylaxis Start Date: 02/04/21 Status: Ordered Remicade (20 sources) Tumor Necrosis Factor Walt Start: 03-10-[address] aTylor, Refills(s) 0 Start Date: 03/10/23 Status: Ordered Start: 03-10-2023 Remicade Refil ls(s) 0 Start Date: 03/10/23 Status: Ordered infliximab (TONI CHRISTIE INTRAVENOUS) Inject intravenously. Every 8 weeks 0 Active Comment on above: Inject intravenously . Every 8 weeks lactobacillus acidophilus [id number] unt oral capsule (1 source) Start: 03-15-20 25 Lactobacillus Acidophilus 25 million cell capsule Active 2 CELL PO March 15, 2025 12:00am Complies with drug therapy latanoprost 0.05 mg/ml ophthalmic solution (20 sources) Prostaglandin Analog Start: 03-22-20 End: 03-26-20 24 take 1 drop(s) into the eye(s) once daily Latanoprost 0.005 % drops Active 1 DROPS EYE-BOTH Daily 2.5 March 26, 2024 4:43pm Complies with drug therapy Start: 03-12-2024 take 1 drop(s) into the eye(s) once daily latanoprost (XALATAN) 0.005 % ophthalmic solution Use 1 Drop in both eyes once daily. 2.5 mL 03/12/2024 Active Start: 08-16-2022 End: 03-09-2024 take 1 drop(s) into the eye(s) once daily latanoprost (XALATAN) 0.005 % ophthalmic solution Use 1 Drop in both eyes once daily. 2.5 mL 08/16/2022 03/09/2024 Discontinued Start: 08-16-2022 take 1 drop(s) into the eye(s) once daily latanoprost (XALATAN) 0.005 % ophthalmic solution Use 1 Drop in both eyes once daily. 2.5 mL 11 08/16/2022 Active Start: 05-13-2021 End: 06-07-2022 take 1 drop(s) into the eye(s) once daily latanoprost (XALATAN) 0.005 % ophthalmic solution INSTILL 1 DROP INTO EACH EYE ONCE DAILY 2.5 mL 0 06/07/2022 Active Start: 09-02-2014 latanoprost Op th 0.005% Batool See Instructions, Refill(s) 0, 1 drop Both eyes daily, Other (see comment) Start Date: 09/02/14 Status: Ordered Comment on above: INSTILL 1 DROP INTO EACH EYE ONCE DAILY Use 1 Drop in both e yes once daily. loratadine 10 mg oral tablet (1 source) Start: 03-15-2025 take 1 tablet by mouth once daily Loratadine 10 mg tablet Active 10 MG PO Daily March 15, 2025 12:00am Complies with drug therapy magnesium hydroxide 240 mg/ml oral suspension (5 sources) take 30 mL by mouth every twelve hours Milk of Magnesia Concentrate 2400 MG/10ML 30 ml Orally every 12 hours for 72 hours (6 doses) Active melatonin 5 mg oral tablet (20 sources) Start: 07-12-2024 take 1 tablet by mouth once daily at bedtime as needed melatonin 5 mg oral tablet 5 mg = 1 tab(s), Oral, Once a day (at bedtime), PRN for insomnia Start Date: 07/12/24 Status: Ordered Start: 03-22-2024 End: 03-15-2025 take 1 capsule by mouth once daily at bedtime Melatonin 5 mg capsule Discontinued 5 MG PO Daily at bedtime March 26, 2024 4:35pm March 15, 2025 2:53pm Start: 03-14-2023 take 1 tablet by colton th once daily at bedtime Melatonin 1 mg oral tablet 1 mg, Oral, Once a day (at bedtime), # 30 tab(s), Refills(s) 0, Pharmacy: [facility]/pharmacy #[id number], 152, cm, 03/10/23 11:33:00 EDT, Height/Length Dosing, 78, kg, 03/10/23 11:33:00 EDT, Weight Dosing Start Date: 03/14/23 Status: Ordered take 1 capsule by mo [facility] every twenty-four hours Melatonin 1 MG 1 capsule at bedtime as needed Orally Once a day Active methenamine hippurate 1000 m g oral tablet (3 sources) Start: 03-15-2025 Methenamine Hi ppurate 1 gram tablet Active 1 GM PO Daily at bedtime March 15, 2025 12:00am Complies with drug therapy Start: 07-12-2024 End: 07-07-2025 take 1 tablet by mouth twice daily methenamine hippurate 1 g oral tablet 1 gm = 1 tab(s), Oral, BID, X 30 day(s), # 60 tab(s), Refills(s) 11, Pharmacy: [id number], 153, cm, 07/12/24 8:20:00 EST, Height/Length Dosing, 95.6, kg, 07/12/24 8:20:00 EST, Weight Dosing Start Date: 07/12/24 Stop Date: 07/07/25 Status: Ordered Multi For Her - (5 sources) Multi For Her - as directed Orally Active Multiple Vitamin (MULTIVITAMIN) tablet (2 sources) take 1 tablet by mouth once daily Multiple Vitamin (MULTIVITAMIN) tablet Indications: Nutritional Support Take 1 tablet by mouth daily Indications: Nutritional Support 0 Active Multiple Vitamins Tab (20 sources) Start: 03-30-20 14 take 1 tablet by mouth once daily Multiple Vitamins Tab 1 tab(s), Oral, Daily, Refill(s) 0, Prophylaxis Start Date: 03/30/14 Status: Ordered Multivitamins-Mineral s-Lutein (CENTRUM SILVER) tab (7 sources) Start: 08-31-19 14 take 1 tablet by mouth once daily Multivitamins-Mineral s-Lutein (CENTRUM SILVER) tab Take 1 tablet by mouth once daily. 0 08/31/2013 Active Comment on above: Take 1 tablet by [facility] once daily. nitrofurantoin, macrocrystals 50 mg oral capsule (14 sources) Nitrofuran Antibacterial Start: 03-02-20 24 nitrofurantoin macrocrystals 50 mg Cap 21 cap(s), 0 Refill(s), Refills(s) 0 Start Date: 03/02/24 Status: Ordered omeprazole 20 mg delayed release oral capsule (20 sources) Proton Pump Inhibitor Start: 09-05-19 25 take 1 capsule by mouth once daily Omeprazole 20 mg capsule,delayed release(DR/EC) Active 0 .ROUTE .COMPLEX September 05, 2024 7:04pm TAKE ONE CAPSULE BY MOUTH DAILY Complies with drug therapy Start: 03-10-2023 End: 09-05-2024 take 1 capsule by mouth once daily Omeprazole 20 mg capsule,delayed release(DR/EC) Discontinued 20 MG PO Daily March 26, 2024 4:36pm September 05, 2024 7:04pm Comment on above: TAKE 1 CAPSULE BY MO UTH ONCE DAILY Oral for 30 Days pilocarpine hydrochloride 5 mg oral tablet (13 sources) Cholinergic Receptor Agonist Start: take 1 tablet by mouth three times daily pilocarpine 5 mg Tab 5 mg = 1 tab(s), Oral, TID, dry mouth, Other (see comment) Start Date: 03/29/20 Status: Ordered Start: 03-29-2020 take 1 tablet by colton th once daily pilocarpine 5 mg Tab 5 mg = 1 tab(s), Oral, Daily, dry mouth, Other (see comment) Start Date: 03/29/20 Status: Ordered potassium chloride 10 meq extended release oral tablet (20 sources) Start: 04-25-2024 take 1 tablet by mouth once daily Potassium Chloride 10 mEq tablet extended release Active 10 MEQ PO Daily April 25, 2024 12:00am Complies with drug therapy Start: 03-22-2024 End: 04-25-2024 take 1 capsule by mouth once daily Potassium Chloride 10 mEq capsule, extended release Discontinued 10 MEQ PO Daily March 26, 2024 4:36pm April 25, 2024 8:13pm Start: 03-02-2024 take 1 tablet by colton th once daily at mealtime potassium chloride 10 mEq ER Tab 10 mEq = 1 tab(s), Oral, Daily, with food, # 60 tab(s), Refills(s) 1 Start Date: 03/02/24 Status: Ordered sennosides, snf 8.6 mg oral capsule (1 source) Start: 03-15-2025 take 1 capsule by mouth once daily Sennosides (Senna) 8.6 mg capsule Active 8.6 MG PO Daily March 15, 2025 12:00am Complies with drug therapy traZODone hydrochloride 50 mg oral tablet (4 sources) Serotonin Reuptake Inhibitor Start: 10-15-2024 take 1 tablet by mouth once daily at bedtime as needed Trazodone 50 mg tablet Active 50 MG PO Daily at bedtime as needed for insomnia October 15, 2024 5:00pm Complies with drug therapy Start: 09-26-2024 End: 10-15-2024 Trazodone 50 mg tablet Disco ntinued 25 MG PO Daily at bedtime as needed for insomnia September 26, 2024 1:00am October 15, 2024 5:03pm Vitamin D3 2000 intl units (20 sources) Start: 09-02-2014 Vitamin D3 200 0 intl units 2,000 International_Unit, Oral, Daily, Refills(s) 0, Prophylaxis Start Date: 09/02/14 Status: Ordered Completed/Discontinued Medications Medication Drug Class(es) Dates Sig (Normalized) Sig (Original) acetaminophen 500 mg oral tablet (7 sources) Start: 03-22-2024 End: 03-15-2025 take 1 tablet by mouth every six hours as needed Acetaminophen (Tylenol Extra Strength) 500 mg tablet Discontinued 500 MG PO Every 6 hours as needed March 22, 2024 12:00am March 15, 2025 2:51pm take 2 tablets by [facility] every four hours as needed for pain Acetaminophen 325 MG 2 tablets Orally ev skylar 4 hrs as needed for pain/fever Active acyclovir 0.05 mg/mg topical ointment (20 sources) Herpesvirus Nucleoside Analog DNA Polymerase Inhibitor, Herpes Simplex Virus Nucleoside Analog DNA Polymerase Inhibitor, Herpes Zoster Virus Nucleoside Analog DNA Polymerase Inhibitor Acyclovir 5 % 1 application every 3 hours Externally Six times a day Not-Taking/PRN Cranberry Conc-Ascorbic Acid (2 sources) Non-Standardized Food Allergenic Extract, Non-Standardized Plant Allergenic Extract, Vitamin C Start: End: take 2 capsules by mouth twice daily Cranberry Conc-Ascorbic Acid 4,200-20 mg capsule Discontinued 2 CAP PO Twice daily July 16, 2024 1:00am March 15, 2025 2:52pm Start: 07-16-2024 take 2 capsules by mouth twice daily Aspir-81 (20 sources) Aspir-81 Not-Irineo ing/PRN biotin 0.3 mg oral tablet (20 sources) Start: 08-31-2013 take 1 tablet by mouth once daily biotin 300 mcg tab Take 1 tablet by mouth once daily. 0 08/31/2013 Active Biotin Not-Takin g/PRN Comment on above: Take 1 tablet by colton th once daily. busPIRone hydrochloride 10 mg oral tablet (20 sources) Start: 03-22-2024 End: 07-16-2024 take 1 tablet by mouth three times daily Buspirone 10 mg tablet Discontinued 10 MG PO Three times daily 84 March 26, 2024 4:31pm July 16, 2024 4:04pm Start: 12-24-2022 take 1 tablet by colton th twice daily busPIRone 15 mg Tab 15 mg = 1 tab(s), Oral, BID, Refills(s) 0 Start Date: 03/16/23 Status: Ordered Start: 12-24-2022 busPIRone (BUS PAR) 10 mg tablet Start: 05-12-2022 busPIRone 10 m g Tab 15 mg = 1.5 tab(s), Oral, BID, # 90 tab(s), Refills(s) 0, Pharmacy: [facility]/pharmacy #[id number], 152.4, cm, 05/09/22 21:11:00 EDT, Height/Length Dosing, 83, kg, 05/09/22 21:11:00 EDT, Weight Dosing Start Date: 05/12/22 Status: Ordered Start: 05-12-2022 take 5 mg by mouth t hree times daily busPIRone 10 mg Tab 5 mg = 0.5 tab(s), Oral, TID, # 90 tab(s), Refills(s) 0, Pharmacy: [facility]/pharmacy #[id number], 152.4, cm, 05/09/22 21:11:00 EDT, Height/Length Dosing, 83, kg, 05/09/22 21:11:00 EDT, Weight Dosing Start Date: 05/12/22 Status: Ordered BuSpar Active cefdinir 300 mg oral capsule (4 sources) Cephalosporin Antibacterial Start: 05-06-2024 End: 07-16-2024 take 1 capsule by mouth twice daily Cefdinir 300 mg capsule Discontinued 300 MG PO Twice daily 27 05May 17, 2024 3:23pm July 16, 2024 4:05pm cefuroxime 500 mg oral tablet (2 sources) Cephalosporin Antibacterial Start: 03-26-2024 End: 05-06-2024 take 1 tablet by mouth twice daily Cefuroxime Axetil 500 mg tablet Discontinued 500 MG PO Twice daily March 26, 2024 12:00am May 06, 2024 5:45pm celecoxib 200 mg oral capsule (20 sources) Nonsteroidal Anti-inflammatory Drug Start: 03-02-2024 End: 09-26-2024 take 1 capsule by mouth twice daily Celecoxib (Celebrex) 200 mg capsule Discontinued 200 MG PO Twice daily March 26, 2024 4:32pm September 26, 2024 7:17pm Start: 03-10-2023 take 1 capsule by mo [facility] twice daily CeleBREX 200 mg Cap 200 mg = 1 cap(s), Oral, BID, Refills(s) 0 Start Date: 03/10/23 Status: Ordered Start: 08-31-2013 take 1 capsule by mo ut once daily celecoxib (CELEBREX) 200 mg capsule Take 200 mg by mouth once daily. 0 12/23/2022 Active Comment on above: Take 1 capsule by mo [facility] once daily. Take 200 mg by mouth once daily. Centrum Silver Ultra Mens (20 sources) Centrum Silver U ltra Mens Not-Taking/PRN Centrum Silver U ltra Mens Active cholecalciferol 0.025 mg oral capsule (6 sources) Vitamin D Start: 08-31-2013 take 1 capsule by mouth once daily Cholecalciferol, Vitamin D3, (VITAMIN D) 1,000 unit cap Take 1 capsule by mouth once daily. 0 08/31/2013 Active Comment on above: Take 1 capsule by mo [facility] once daily. ciprofloxacin 250 mg oral tablet (13 sources) Quinolone Antimicrobial Start: 05-13-2023 take 1 tablet by mouth every twelve hours Ciprofloxacin HCl 250 MG 1 tablet Orally every 12 hrs for 5 days May, Not-Taking/PRN citalopram 40 mg oral tablet (2 sources) Serotonin Reuptake Inhibitor Start: 12-02-2024 End: 03-06-2025 take 1 tablet by mouth once daily Citalopram 40 mg tablet Discontinued 40 MG PO Daily December 02, 2024 12:00am Pratibha 30th, 2025 10:16pm [employer] silk preparation (4 sources) Start: 07-16-2024 End: 03-15-2025 [place] Discontinued PO July 16, 2024 1:00am March 15, 2025 2:51pm Start: 07-16-2024 Start: 07-12-2024 take 1 tablet by mouth once da kathy cor[place]k 1,200 mg cor[place]k 1,200 mg, 1 tab, Oral, Daily Start Date: 07/12/24 Status: Ordered D-Mannose (2 sources) Start: 07-16-2024 End: 03-15-2025 take 4 capsules by mouth once daily, then take 1 capsule by mouth once D-Mannose (Azo D-Mannose) 500 mg capsule Discontinued 2000 MG PO Daily July 16, 2024 1:00am March 15, 2025 2:52pm Start: 07-16-2024 take 4 capsules by m outh once daily, then take 1 capsule by mouth once ertapenem 1000 mg injection (2 sources) Penem Antibacterial Start: 06-04-2024 End: 07-16-2024 inject 1 g by intramuscular injection once daily Ertapenem 1 gram recon soln Discontinued 1 GM IM Daily 05 17June 04, 2024 12:00am July 16, 2024 3:53pm estrogens, conjugated (snf) 0.625 mg/ml vaginal cream (20 sources) Estrogen Premarin 0.625 MG/GM as directed Vaginal Not-Taking/PRN Premarin 0.625 M G/GM as directed Vaginal Active folic acid 0.4 mg oral table t (20 sources) Start: 02-04-2021 folic acid 400 mcg tablet Take 800 mcg by mouth. 0 02/04/2021 Active Start: 02-04-2021 take 1 tablet by colton th once daily Folate 0.4 mg Tab 0.4 mg = 1 tab(s), Oral, Daily, Prophylaxis Start Date: 02/04/21 Status: Ordered Folic Acid Not-T aking/PRN Comment on above: Take 800 mcg by mout h. furosemide 40 mg oral tablet (20 sources) Loop Diuretic Start: 2023 End: 2024 take 1 tablet by mouth once daily in the morning Furosemide 40 mg tablet Discontinued 40 MG PO Every morning March 26, 2024 4:34pm September 26, 2024 7:17pm gabapentin 100 mg oral capsule (2 sources) Anti-epileptic Agent Start: 2023 End: 2023 take 1 capsule by mouth twice daily Gabapentin 100 mg capsule Discontinued 100 MG PO Twice daily 60 April 20, 2024 12:00am July 16, 2024 4:06pm 2 ml gentamicin 40 mg/ml injection (2 sources) Start: 2023 End: 2024 inject 80 mg by intramuscular injection three times daily Gentamicin 40 mg/mL solution Discontinued 80 MG IM Three times daily July 16, 2024 1:00am March 15, 2025 2:52pm Hydrocortisone (12 sources) Corticosteroid Start: 2023 hydrocortisone Top 1% Crm Refill(s) 0, 28 gm, 0 Refill(s) Start Date: 03/02/24 Status: Ordered ketoconazole 20 mg/ml medicated shampoo (2 sources) Azole Antifungal Start: 2024 End: 2024 Ketoconazole 2 % shampoo Discontinued 1 APPLIC TOPICAL Twice a Week 120 October 15, 2024 12:00am March 15, 2025 2:53pm latanoprost Opth 0.005% Batool (4 sources) Start: 2014 latanoprost Opth 0.005% Batool 1 drop(s), OPTH, Daily, Refill(s) 0, Other (see comment) Start Date: 09/02/14 Status: Ordered levoFLOXacin 250 mg oral tablet (19 sources) Quinolone Antimicrobial Start: 2022 take 1 tablet by mouth every twenty-four hours levoFLOXacin 250 MG 1 tablet Orally Once a day Mar, Not-Taking/PRN Magnesium (2 sources) take 1 tablet by mouth every other day MAGNESIUM ORAL Take 1 tablet by mouth every other day. 0 Active Comment on above: Take 1 tablet by colton th every other day. magnesium oxide 250 mg oral tablet (20 sources) Start: 2020 Magnesium Oxide 250 mg magnesium tab Take 400 mg by mouth. 0 02/04/2021 Active Start: 02-04-2021 take 1 tablet by colton th once daily magnesium oxide 250 mg oral tablet 250 mg = 1 tab(s), Oral, Daily, Prophylaxis Start Date: 02/04/21 Status: Ordered Comment on above: Take 400 mg by mouth . meloxicam 15 mg oral tablet (1 source) Nonsteroidal Anti-inflammatory Drug Start: 08-03-20 End: 01-20-20 take 1 tablet by mouth once daily meloxicam (MOBIC) 15 mg tablet Take 15 mg by mouth once daily. 0 08/03/2022 01/19/2023 Discontinued (Discontinued by another Health Care Provider) Comment on above: Take 15 mg by mouth once daily. methotrexate 2.5 mg oral tablet (20 sources) Folate Analog Metabolic Inhibitor Start: 08-31-19 take 6 tablets by mouth every week methotrexate 2.5 mg tablet Take 6 tablets by mouth once each week. as directed. 0 08/31/2013 Active Methotrexate Not -Taking/PRN Comment on above: Take 6 tablets by mo [facility] once each week. as directed. 24 hr metoprolol succinate 25 mg extended release oral tablet (20 sources) beta-Adrenergic Walt Start: 03-22-2024 End: 02-13-2025 take 1 tablet by mouth once daily Metoprolol Succinate 25 mg tablet extended release 24 hr Discontinued 25 MG PO Daily March 26, 2024 4:35pm February 13, 2025 8:18pm Start: 05-28-2022 take 1 tablet by colton once daily metoprolol 25 mg ER Tab 25 mg = 1 tab(s), Oral, Daily, Refills(s) 0 Start Date: 03/16/23 Status: Ordered Start: 05-12-2022 End: 05-12-2022 metoprolol 25 mg ER Tab 25 m g = 1 tab(s), Tab-ER, Oral, Start date 05/12/22 9:00:00 EDT, 05/10/22 21:05:00 EDT Start Date: 05/12/22 Stop Date: 05/12/22 Status: Completed Start: 05-11-2022 End: 05-11-2022 metoprolol 25 mg ER Tab 25 m g = 1 tab(s), Tab-ER, Oral, Start date 05/11/22 9:00:00 EDT, 05/10/22 21:05:00 EDT Start Date: 05/11/22 Stop Date: 05/11/22 Status: Completed Start: 12-13-2021 End: 12-13-2021 metoprolol 25 mg ER Tab 25 m g = 1 tab(s), Tab-ER, Oral, Start date 12/13/21 9:00:00 EDT, 12/13/21 6:54:00 EDT Start Date: 12/13/21 Stop Date: 12/13/21 Status: Completed Start: 12-13-2021 take 1 tablet by colton th once daily metoprolol 25 mg ER Tab 25 mg = 1 tab(s), Oral, Daily, Refills(s) 0 Start Date: 12/13/21 Status: Ordered take 1 tablet by colton th once daily metoprolol succinate (TOPROL XL) 50 MG extended release tablet Indications: Hypertension Take 1 tablet by mouth daily Indications: High Blood Pressure Disorder 0 Active Comment on above: Take 25 mg by mouth once daily. nitrofurantoin, macrocrystals 25 mg / nitrofurantoin, monohydrate 75 mg oral capsule (2 sources) Nitrofuran Antibacterial Start: End: take 1 capsule by mouth twice daily at mealtime Nitrofurantoin Monohyd/M-Cryst (Macrobid) 100 mg capsule Discontinued 100 MG PO Twice daily 05 12April 17, 2024 12:00am July 16, 2024 4:06pm must administer with a meal/food QUEtiapine 25 mg oral tablet (20 sources) Atypical Antipsychotic Start: End: take 1 tablet by mouth twice daily Quetiapine (Seroquel) 25 mg tablet Discontinued 25 MG PO Twice daily 56 September 26, 2024 7:17pm November 20, 2024 5:32pm Start: 03-26-2024 End: 04-11-2024 take 1 tablet by mouth once daily at bedtime Quetiapine (Seroquel) 25 mg tablet Discontinued 25 MG PO Daily at bedtime March 26, 2024 4:37pm April 11, 2024 9:13pm Start: 03-22-2024 End: 03-26-2024 take 1 tablet by mouth twice daily Quetiapine (Seroquel) 25 mg tablet Discontinued 25 MG PO Twice daily March 22, 2024 12:00am March 26, 2024 4:45pm Start: 08-29-2023 SEROquel 25 mg Tab 12.5 mg, Oral, BID, in afternoon, Refills(s) 0 Start Date: 08/29/23 Status: Ordered Start: 08-29-2023 SEROquel 25 mg Tab 12.5 mg = 0.5 tab(s), Oral, Bedtime, Refills(s) 0 Start Date: 08/30/23 Status: Ordered Start: 07-13-2023 take 1 tablet by colton th at bedtime SEROquel 25 mg Tab 25 mg = 1 tab(s), Oral, Bedtime, Refills(s) 0 Start Date: 07/13/23 Status: Ordered Start: 05-12-2022 End: 01-19-2023 take 1 tablet by mouth at bedtime SEROquel 25 mg Tab 25 mg = 1 tab(s), Oral, Bedtime, # 30 tab(s), Refills(s) 0, Pharmacy: [facility]/pharmacy #[id number], 152.4, cm, 05/09/22 21:11:00 EDT, Height/Length Dosing, 83, kg, 05/09/22 21:11:00 EDT, Weight Dosing Start Date: 05/12/22 Status: Ordered take 0.5 tablet by out once daily QUEtiapine (SEROQUEL) 25 MG tablet Indications: Behavioral Disorders associated with Dementia Take 0.5 tablets by mouth daily Indications: Behavioral Disorders associated with Dementia Give at 2:00pm 0 Active Comment on above: Take by mouth. Splint Wrist Brace/Left-Right - (20 sources) Start: 12-18-2022 Splint Wrist Brace/Left-Right - as directed splint daily for 14 days December, Not-Taking/PRN Start: 12-18-2022 Splint Wrist B race/Left-Right - as directed splint daily for 14 days December, Active sulfamethoxazole 800 mg / trimethoprim 160 mg oral tablet (13 sources) Dihydrofolate Reductase Inhibitor Antibacterial, Sulfonamide Antimicrobial Start: 04-17-2024 End: 04-17-2024 take 1 tablet by mouth twice daily Sulfamethoxazole-Trimethoprim 800-160 mg tablet Discontinued 1 TAB PO Twice daily 05 12April 17, 2024 12:00April 17, 2024 5:47pm Start: 06-21-2023 take 1 tablet by colton th every twelve hours Sulfamethoxazole-Trimethoprim 800-160 MG 1 tablet Orally Twice a day for 5 days Jun, Not-Taking/PRN Start: 03-30-2023 take 1 tablet by colton th every twelve hours Sulfamethoxazole-Trimethoprim 800-160 MG 1 tablet Orally Twice a day for 5 days Mar, Active tiZANidine 4 mg oral capsule (20 sources) Central alpha-2 Adrenergic Agonist Start: 03-22-2024 End: 03-26-2024 take 1 capsule by mouth once daily at bedtime as needed Tizanidine 4 mg capsule Discontinued 4 MG PO Daily at bedtime as needed March 22, 2024 12:00am March 26, 2024 4:42pm Start: 12-13-2021 tiZANidine (ZA NAFLEX) 4 mg tablet Take by mouth. 0 12/13/2021 Active Comment on above: Take by mouth. triamcinolone acetonide 0.001 mg/mg topical ointment (20 sources) Corticosteroid Start: 03-26-2024 End: 07-16-2024 Triamcinolone Acetonide 0.1 % ointment Discontinued 1 APPLIC TOPICAL Daily as needed for rash 454 March 26, 2024 12:00am July 16, 2024 4:06pm Triamcinolone Ac etonide 0.5 % 1 application Externally Twice a day Not-Taking/PRN vitamin e 180 mg oral capsule (17 sources) Start: 02-04-2021 vitamin E, dl, tocopheryl acet, (VITAMIN E, DL, ACETATE,) 180 mg (400 unit) capsule Take 180 mg by mouth. 0 02/04/2021 Active Comment on above: Take 180 mg by mouth . Problems Active Problems Problem Classification Problem Date Documented Date Episodic/Chronic Abdominal pain (2 sources) Abdominal pain; Translations: [Unspecified abdominal pain] Episodic Acquired foot deformities (20 sources) Deformity of metatarsal; Translations: [Acquired deformity of toe] Onset: 09-11-2014 02-04-2021 Episodic Adjustment disorders (2 sources) Adjustment disorder with depressed mood; Translations: [Adjustment disorder with depressed mood] Onset: 11-03-2015 Chronic Alcohol-related disorders (20 sources) Alcohol abuse; Translations: [Alcohol abuse, uncomplicated] Onset: 01-20-2023 Chronic Alcohol-related disorders (1 source) Alcohol use, unspecified with intoxication, unspecified; Translations: [Alcohol use, unspecified with intoxication, unspecified] Onset: 12-13-2021 Episodic Allergic reactions (20 sources) Atopic neurodermatitis; 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] Chronic Allergic reactions (20 sources) Allergic contact dermatitis due to other chemical products; Translations: [Allergic contact dermatitis due to plants, except food] Onset: 12-16-2014 Episodic Anxiety disorders (9 sources) Acute stress disorder; Translations: [Acute stress reaction] Onset: 06-30-2015 Chronic Bacterial infection; unspecified site (13 sources) Bacterial infectious disease; Translations: [Bacterial infection, unspecified, in conditions classified elsewhere and of unspecified site] Onset: 09-08-2018 05-07-2024 Episodic Comment on above: ESBL E coli in urine 05/15/2024 ESBL E col i in urine Cardiac dysrhythmias (9 sources) Nonsustained ventricular tachycardia ; Translations: [NSVT (nonsustained ventricular tachycardia)] Onset: 09-08-2023 09-08-2023 Chronic Cardiac dysrhythmias (20 sources) Palpitations; Translations: [Palpitations] Episodic Cataract (20 sources) Senile cataract; Translations: [Unspecified age-related cataract] Onset: 08-24-2013 08-24-2013 Chronic Conditions associated with dizziness or vertigo (20 sources) Dizziness; Translations: [Dizziness and giddiness] Onset: 03-02-2024 Episodic Congestive heart failure; nonhypertensive (4 sources) Acute on chronic heart failure co-occurrent with normal ejection fraction; Translations: [Acute on chronic diastolic (congestive) heart failure] 03-26-2024 Chronic Delirium, dementia, and amnestic and other cognitive disorders (20 sources) Dementia; Translations: [Unspecified dementia without behavioral disturbance] Onset: 01-20-2023 Chronic Diabetes mellitus without complication (20 sources) Diabetes mellitus without complication; Translations: [Type 2 diabetes mellitus without complications] Chronic E Codes: Natural/environment (2 sources) Bitten by cat, initial encounter; Translations: [Exposure to other specified factors, initial encounter] Episodic E Codes: Place of occurrence (1 source) Accident while engaged in household activity; Translations: [Unspecified place in unspecified non-institutional (private) residence as the place of occurrence of the external cause] Onset: 03-10-2023 Episodic Esophageal disorders (1 source) Gastroesophageal reflux disease without esophagitis; Translations: [Gastro-esophageal reflux disease without esophagitis] Onset: 07-10-2023 Chronic Essential hypertension (18 sources) Essential hypertension; Translations: [Essential (primary) hypertension] Onset: 07-10-2023 Chronic Comment on above: Echo: LVEF 70%, norm al RV size/function, RVSP 45-50 - 03/2024 Fluid and electrolyte disorders (20 sources) Hypo-osmolality and or hyponatremia; Translations: [Hypo-osmolality and hyponatremia] Onset: 12-13-2021 Episodic Fracture of lower limb (1 source) Closed fracture of phalanx of foot; Translations: [Unspecified fracture of left toe(s), initial encounter for closed fracture] Episodic Fracture of upper limb (1 source) Nondisplaced fracture of left ulna styloid process, initial encounter for closed fracture Episodic Genitourinary symptoms and ill-defined conditions (7 sources) Unspecified urinary incontinence; Translations: [Urinary incontinence] Onset: 07-02-2024 Chronic Genitourinary symptoms and ill-defined conditions (20 sources) Nocturia; Translations: [Increased frequency of urination] Onset: 05-23-2014 09-02-2014 Episodic Glaucoma (20 sources) Glaucoma; Translations: [Preglaucoma, unspecified, unspecified eye] Onset: 03-20-2014 09-02-2014 Chronic Headache; including migraine (4 sources) Migraine without aura, not refractory ; Translations: [Migraine, unspecified, not intractable, without status migrainosus] Resolved: 04-22-2022 Chronic Headache; including migraine (2 sources) Headache; Translations: [Headache, unspecified] Episodic Hypertension with complications and secondary hypertension (1 source) Hypertensive urgency ; Translations: [Hypertensive urgency] Onset: 05-10-2022 Chronic Immunity disorders (20 sources) Drug-induced immunodeficiency ; 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] Onset: 03-16-2023 Chronic Immunizations and screening for infectious disease (10 sources) Contact with and (suspected) exposure to other viral communicable diseases; Translations: [Encounter for screening for other viral diseases] Onset: 03-18-2020 Episodic Intracranial injury (20 sources) Concussion with no loss of consciousness; Translations: [Concussion without loss of consciousness, subsequent encounter] Episodic Mood disorders (20 sources) Mild recurrent major depression; Translations: [Major depressive disorder, recurrent, mild] Onset: 11-03-2015 Chronic Open wounds of extremities (1 source) Open bite of unspecified finger without damage to nail, initial encounter Episodic Open wounds of head; neck; and trunk (3 sources) Laceration of head; Translations: [Laceration without foreign body of other part of head, initial encounter] Onset: 12-13-2021 Episodic Osteoarthritis (20 sources) Arthritis; Translations: [Localized, primary osteoarthritis of the pelvic region and thigh] Onset: 03-03-2017 02-08-2014 Chronic Other aftercare (1 source) Long-term current use of drug therapy; Translations: [Other assisted (current) drug therapy] Onset: 03-16-2023 Episodic Other and ill-defined cerebrovascular disease (20 sources) Cerebrovascular disease; Translations: [Cerebrovascular disease, unspecified] Onset: 07-15-2023 Chronic Other and ill-defined heart disease (2 sources) Cardiomegaly; Translations: [Cardiomegaly] Onset: 08-22-2013 Chronic Other and unspecified benign neoplasm (20 sources) Benign neoplasm of colon; Translations: [Benign neoplasm of descending colon] Onset: 03-03-2017 Episodic Other and unspecified benign neoplasm (2 sources) Benign neoplasm of descending colon; Translations: [Benign neoplasm of descending colon] Episodic Other bone disease and musculoskeletal deformities (2 sources) Other osteonecrosis, left shoulder; Translations: [Other osteonecrosis, left shoulder] Chronic Other bone disease and musculoskeletal deformities (1 source) Other specified disorders of bone density and structure, right thigh Episodic Other bone disease and musculoskeletal deformities (1 source) Other specified disorders of bone density and structure, left thigh Episodic Other circulatory disease (20 sources) Elevated blood-pressure reading without diagnosis of hypertension; Translations: [Elevated blood-pressure reading, without diagnosis of hypertension] Episodic Other circulatory disease (20 sources) History of cardiac arrhythmia 03-16-2023 Episodic Other congenital anomalies (2 sources) Congenital spondylolysis of lumbosacral region; Translations: [Congenital spondylolysis, lumbosacral region] Onset: 11-05-2016 Chronic Other connective tissue disease (20 sources) Disorder of musculoskeletal system; Translations: [Other symptoms and signs involving the musculoskeletal system] Episodic Other connective tissue disease (1 source) Pain in left arm Episodic Other connective tissue disease (20 sources) Recurrent falls ; Translations: [Repeated falls] Onset: 03-16-2023 Episodic Other connective tissue disease (2 sources) H/O: musculoskeletal disease; Translations: [Personal history of other diseases of the musculoskeletal system and connective tissue] Episodic Other diseases of veins and lymphatics (8 sources) Venous insufficiency of leg; Translations: [Venous insufficiency (chronic) (peripheral)] 07-02-2024 Episodic Other ear and sense organ disorders (2 sources) Impacted cerumen; Translations: [Impacted cerumen, left ear] Episodic Other hematologic conditions (2 sources) Other specified diseases of blood and blood-forming organs; Translations: [Disease of blood AND/OR blood-forming organ] Onset: 12-18-2017 Chronic Other hereditary and degenerative nervous system conditions (12 sources) Mild cognitive disorder ; Translations: [Mild cognitive impairment, so stated] Chronic Other hereditary and degenerative nervous system conditions (2 sources) Mild cognitive impairment, so stated Chronic Other hereditary and degenerative nervous system conditions (19 sources) Impaired cognition; Translations: [Mild cognitive impairment, so stated] Chronic Other inflammatory condition of skin (20 sources) Psoriatic arthritis; 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, unspecified] Onset: 03-16-2023 Chronic Other inflammatory condition of skin (1 source) Arthropathic psoriasis, unspecified Chronic Other inflammatory condition of skin (4 sources) Psoriasis with arthropathy; 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] Onset: 05-17-2017 Chronic Other inflammatory condition of skin (2 sources) Psoriasis; Translations: [Psoriasis, unspecified] Chronic Other inflammatory condition of skin (20 sources) Intertrigo; Translations: [Erythema intertrigo] Episodic Other inflammatory condition of skin (20 sources) Pruritus of skin; Translations: [Pruritus, unspecified] Episodic Other inflammatory condition of skin (2 sources) Itching of skin; Translations: [Pruritus, unspecified] Episodic Other injuries and conditions due to external causes (1 source) Injury of head; Translations: [Unspecified injury of head, initial encounter] Onset: 12-13-2021 Episodic Other injuries and conditions due to external causes (1 source) Other injury of unspecified body region, initial encounter Episodic Other injuries and conditions due to external causes (1 source) Unspecified multiple injuries, initial encounter; Translations: [Unspecified multiple injuries, initial encounter] Onset: 01-12-2024 Episodic Other injuries and conditions due to external causes (1 source) Unspecified injury of head, initial encounter; Translations: [Unspecified injury of head, initial encounter] Onset: 10-21-2023 Episodic Other lower respiratory disease (20 sources) Dyspnea on exertion; Translations: [Other forms of dyspnea] Episodic Other lower respiratory disease (5 sources) Dyspnea; Translations: [Shortness of breath] Onset: 03-02-2024 Resolved: 11-04-2021 Episodic Other nervous system disorders (1 source) Disorder of brain; Translations: [Encephalopathy, unspecified] Onset: 07-10-2023 Chronic Other nervous system disorders (1 source) Paresthesia; Translations: [Paresthesia of skin] Onset: 05-10-2022 Episodic Other nervous system disorders (20 sources) Abnormal gait; Translations: [Unsteadiness on feet] Episodic Other nervous system disorders (3 sources) Unsteadiness on feet Episodic Other non-traumatic joint disorders (2 sources) Lower limb joint arthritis; Translations: [Osteoarthrosis, unspecified whether generalized or localized, lower leg] Onset: 05-07-2016 Chronic Other nutritional; endocrine; and metabolic disorders (20 sources) Obesity; Translations: [Obesity, unspecified] Onset: 05-10-2022 09-02-2014 Chronic Other nutritional; endocrine; and metabolic disorders (4 sources) Body mass index 30+ - obesity; Translations: [Body mass index 31.0-31.9, adult] Onset: 08-08-1959 Chronic Other nutritional; endocrine; and metabolic disorders (6 sources) Obese class I; Translations: [Body mass index 32.0-32.9, adult] Onset: 08-08-1959 Chronic Other nutritional; endocrine; and metabolic disorders (2 sources) Obese class II; Translations: [Body mass index 35.0-35.9, adult] Onset: 08-08-1959 Chronic Other nutritional; endocrine; and metabolic disorders (2 sources) Simple obesity ; Translations: [Other obesity due to excess calories] Onset: 08-08-1959 Chronic Other skin disorders (20 sources) Bacterial folliculitis; Translations: [Other specified follicular disorders] Episodic Other skin disorders (20 sources) Asteatosis cutis; Translations: [Xerosis cutis] Episodic Other skin disorders (20 sources) Inflammatory dermatosis 03-16-2023 Episodic Other skin disorders (2 sources) Hair follicle disorder; Translations: [Other specified follicular disorders] Episodic Other skin disorders (2 sources) Vesicular eczema of hands and/or feet; Translations: [Dyshidrosis [pompholyx]] Episodic Other upper respiratory disease (20 sources) Deviated nasal septum; Translations: [Deviated nasal septum] Episodic Other upper respiratory disease (2 sources) Other specified disorders of nose and nasal sinuses; Translations: [Other specified disorders of nose and nasal sinuses] Episodic Other upper respiratory infections (20 sources) Acute pharyngitis; Translations: [Acute pharyngitis due to other specified organisms] Onset: 09-08-2018 Episodic Poisoning by nonmedicinal substances (20 sources) Toxic effect of venom of bees, accidental (unintentional), initial encounter; Translations: [Toxic effect of venom] Onset: 03-07-2019 Episodic Pulmonary heart disease (8 sources) Pulmonary hypertension; Translations: [Pulmonary hypertension, unspecified] 07-02-2024 Chronic Residual codes; unclassified (20 sources) Obstructive sleep apnea syndrome; Translations: [Obstructive sleep apnea (adult) (pediatric)] Onset: 01-20-2023 Chronic Residual codes; unclassified (4 sources) Obstructive sleep apnea (adult) (pediatric) Chronic Residual codes; unclassified (1 source) Altered mental status; Translations: [Altered mental status, unspecified] Onset: 03-10-2023 Episodic Residual codes; unclassified (1 source) Current drinker; Translations: [Alcohol use, unspecified, uncomplicated] Onset: 03-16-2023 Episodic Residual codes; unclassified (1 source) Procedure carried out on subject; Translations: [Encounter for prophylactic measures, unspecified] Onset: 07-10-2023 Episodic Residual codes; unclassified (1 source) H/O: Disorder; Translations: [Personal history of other specified conditions] Onset: 07-10-2023 Episodic Residual codes; unclassified (1 source) Localized edema; Translations: [Localized edema] Onset: 03-02-2024 Episodic Residual codes; unclassified (2 sources) Insomnia; Translations: [Insomnia, unspecified] 09-26-2024 Episodic Retinal detachments; defects; vascular occlusion; and retinopathy (17 sources) Epiretinal membrane of left eye; Translations: [Puckering of macula, left eye] Onset: 10-25-2014 06-08-2019 Chronic Screening and history of mental health and substance abuse codes (1 source) H/O: psychiatric disorder; Translations: [Personal history of other mental and behavioral disorders] Onset: 07-10-2023 Episodic Skin and subcutaneous tissue infections (20 sources) Cellulitis of left upper limb; Translations: [Cellulitis of left upper limb] Episodic Skull and face fractures (20 sources) Closed fracture of nasal bones; Translations: [Fracture of nasal bones, initial encounter for closed fracture] Onset: 12-13-2021 02-04-2021 Episodic Spondylosis; intervertebral disc disorders; other back problems (20 sources) Lumbar spondylosis; Translations: [Spondylosis without myelopathy or radiculopathy, lumbar region] Onset: 06-19-2014 Chronic Spondylosis; intervertebral disc disorders; other back problems (7 sources) Low back pain; Translations: [Lumbago] Onset: 10-01-2013 Episodic Unclassified (2 sources) Other ventricular tachycardia; Translations: [Other ventricular tachycardia] Onset: 11-21-2021 Unclassified (2 sources) Exposure to acute respiratory syndrome coronavirus 2; Translations: [Contact with and (suspected) exposure to COVID-19] Urinary tract infections (17 sources) Acute cystitis; Translations: [Acute cystitis] Onset: 05-23-2014 Episodic Viral infection (20 sources) Herpes labialis; Translations: [Herpesviral vesicular dermatitis] Onset: 03-29-2019 Episodic Past or Other Problems Problem Classification Problem Date Documented Date Episodic/Chronic Acute bronchitis (2 sources) Acute bronchitis; Translations: [Acute bronchitis, unspecified] Onset: 08-22-2013 Episodic Blindness and vision defects (20 sources) Psychophysical visual disturbance; Translations: [Visual hallucinations] Onset: 01-20-2023 Episodic Deficiency and other anemia (2 sources) Megaloblastic anemia; Translations: [Other specified megaloblastic anemias not elsewhere classified] Onset: 12-22-2014 Episodic E Codes: Fall (5 sources) Fall; Translations: [Unspecified fall, initial encounter] Onset: 12-13-2021 Episodic Inflammation; infection of eye (except that caused by tuberculosis or sexually transmitteddisease) (2 sources) Acute conjunctivitis; Translations: [Unspecified acute conjunctivitis, bilateral] Onset: 01-29-2019 Episodic Joint disorders and dislocations; trauma-related (2 sources) Current tear of lateral cartilage AND/OR meniscus of knee; Translations: [Peripheral tear of lateral meniscus, current injury, left knee, initial encounter] Onset: 05-07-2016 Episodic Mycoses (2 sources) Dermatophytosis of the perianal area; Translations: [Dermatophytosis of groin and perianal area] Onset: 01-09-2013 Episodic Neoplasms of unspecified nature or uncertain behavior (2 sources) Neoplasm of uncertain behavior of skin; Translations: [Neoplasm of uncertain behavior of skin] Onset: 03-31-2018 Episodic Other circulatory disease (6 sources) History of cerebrovascular disease; Translations: [Personal history of other diseases of the circulatory system] Onset: 12-13-2021 Episodic Other connective tissue disease (2 sources) Other symptoms and signs involving the nervous system; Translations: [Other symptoms and signs involving the nervous system] Resolved: 03-02-2022 Episodic Other connective tissue disease (1 source) Repeated falls; Translations: [Repeated falls] Onset: 09-15-2023 Episodic Other eye disorders (15 sources) Tear film insufficiency; Translations: [Dry eye syndrome of unspecified lacrimal gland] Onset: 10-29-2015 10-29-2015 Episodic Other eye disorders (8 sources) Epithelial basement membrane dystrophy; Translations: [[id number] corneal dystrophy] Onset: 01-28-2020 01-28-2020 Episodic Other inflammatory condition of skin (3 sources) Lichen simplex chronicus; Translations: [Lichen simplex chronicus] Onset: 03-16-2023 Episodic Other non-traumatic joint disorders (2 sources) Arthralgia of the lower leg; Translations: [Pain in joint, lower leg] Onset: 05-07-2016 Episodic Other non-traumatic joint disorders (2 sources) Shoulder joint pain; Translations: [Pain in unspecified shoulder] Onset: 05-23-2014 Episodic Other nutritional; endocrine; and metabolic disorders (2 sources) Morbid obesity; Translations: [Morbid (severe) obesity due to excess calories] Resolved: 10-09-2021 Chronic Residual codes; unclassified (3 sources) Disorientated; Translations: [Disorientation, unspecified] Onset: 05-10-2022 Episodic Residual codes; unclassified (2 sources) C/O - a back symptom; Translations: [Other symptoms referable to back] Onset: 11-05-2016 Episodic Residual codes; unclassified (2 sources) H/O: risk factor; Translations: [Other specified personal history presenting hazards to health] Onset: 08-19-2016 Episodic Unclassified (20 sources) NSVT (nonsustained ventricular tachycardia); Translations: [NSVT (nonsustained ventricular tachycardia)] Unclassified (2 sources) NSVT (nonsustained ventricular tachycardia) I47.29 Unclassified (1 source) Dementia in other diseases classified elsewhere, moderate, with psychotic disturbance F02.B2 Results Test Name Value Interpretation Reference Range Facility Alanine aminotransferase [En zymatic activity/volume] in Serum or PlasmaOrdered By: Sunny Taylor on 02-28-2025 ALT [Catalytic activity/Vol] 9 U/L Normal 7-52 [facility] Comment on above: Performed By: #### C MP, CBC #### [address] Albumin [Mass/volume] in Ser um or Plasma by Bromocresol green (BCG) dye binding methoOrdered By: Sunny Taylor on 02-28-2025 Albumin BCG dye [Mass/Vol] 3.5 g/dL 3.5-5.7 [facility] Alkaline phosphatase [Enzyma tic activity/volume] in Serum or PlasmaOrdered By: Sunny Taylor on 02-28-2025 ALP [Catalytic activity/Vol] 85 U/L Normal 34-104 [facility] Comment on above: Result Comment: PERF ORMED BY: [place] [address] PATHOLOGIST SUPERVISOR SOLDERING FARA WOOD M.D. Performed By: #### C MP, CBC #### [address] Aspartate aminotransferase [ Enzymatic activity/volume] in Serum or PlasmaOrdered By: Sunny Taylor on 02-28-2025 AST [Catalytic activity/Vol] 15 U/L Normal 13-39 [facility] Comment on above: Performed By: #### C MP, CBC #### [address] [place] [address] [place] Basophils [#/volume] in Bloo d by Automated countOrdered By: Sunny Brandon on 02-28-2025 Basophils (Bld) [#/Vol] 0.1 10*3/uL Normal 0.0-0.2 [facility] Comment on above: Result Comment: PERF ORMED BY: [place] [address] PATHOLOGIST SUPERVISOR SOLDERING FARA WOOD M.D. Performed By: #### C MP, CBC #### [place] [address] [place] Basophils/100 leukocytes in Blood by Automated countOrdered By: Sunnyvikram Taylor on 02-28-2025 Basophils/100 WBC (Bld) 0.9 % Normal . [facility] Comment on above: Performed By: #### C MP, CBC #### [place] [address] [place] Bilirubin.total [Mass/volume ] in Serum or PlasmaOrdered By: Sunny Taylor on 02-28-2025 Bilirubin [Mass/Vol] 0.6 mg/dL Normal 0.3-1.0 [facility] Comment on above: Performed By: #### C MP, CBC #### [place] [address] [place] Calcium [Mass/volume] in Ser um or PlasmaOrdered By: Sunny Taylor on 02-28-2025 Calcium [Mass/Vol] 8.7 mg/dL Normal 8.6-10.3 [facility] Comment on above: Performed By: #### C MP, CBC #### [place] [address] [place] Carbon dioxide, total [Moles /volume] in Serum or PlasmaOrdered By: Sunny Taylor on 02-28-2025 CO2 [Moles/Vol] 34.7 mmol/L High 21.0-31.0 [facility] Comment on above: Performed By: #### C MP, CBC #### [place] [address] [place] Chloride [Moles/volume] in S marianna or PlasmaOrdered By: Sunny Taylor on 02-28-2025 Chloride [Moles/Vol] 101 mmol/L Normal 98-107 [facility] Comment on above: Performed By: #### C MP, CBC #### [address] Complete Blood Count Auto Di ffon 02-28-2025 Mean Corpuscular HGB Conc 33.4 g/dL Normal 32.0-35.0 [facility] Comment on above: Performed By: #### C MP, CBC #### [address] NRBC% 0.1 /100{WBC} Normal 0-0.5 [facility] Comment on above: Performed By: #### C MP, CBC #### [address] White Blood Count 5.8 [CFU]/mL Normal 3.8-11.6 [facility] Comment on above: Performed By: #### C MP, CBC #### [address] Comprehensive Metabolic Pane ridge 02-28-2025 Albumin [Mass/Vol] 3.5 g/dL Normal 3.5-5.7 [facility] Comment on above: Performed By: #### C MP, CBC #### [place] [address] [place] GFR/1.73 sq M.predicted MDRD (S/P/Bld) [Vol rate/Area] mL/min/{1.73_m2} Normal [facility] Comment on above: Performed By: #### C MP, CBC #### [place] [address] [place] Creatinine [Mass/volume] in Serum or PlasmaOrdered By: Sunny Taylor on 02-28-2025 Creatinine [Mass/Vol] 0.73 mg/dL Normal 0.60-1.20 [facility] Comment on above: Performed By: #### C MP, CBC #### [place] [address] [place] Eosinophils [#/volume] in Bl ood by Automated countOrdered By: Sunny Clevelandrow on 02-28-2025 Eosinophils (Bld) [#/Vol] 0.4 10*3/uL Normal 0.0-0.45 [facility] Comment on above: Performed By: #### C MP, CBC #### [place] [address] [place] Eosinophils/100 leukocytes i n Blood by Automated countOrdered By: Sunny Clevelandrow on 02-28-2025 Eosinophils/100 WBC (Bld) 6.6 % Normal . [facility] Comment on above: Performed By: #### C MP, CBC #### [address] Erythrocyte distribution wid th [Ratio] by Automated countOrdered By: Sunnyvikram Taylor on 02-28-2025 Erythrocyte distribution width (RBC) [Ratio] 13.4 % Normal 11.9-15.3 [facility] Comment on above: Performed By: #### C MP, CBC #### [address] Erythrocytes [#/volume] in B lood by Automated countOrdered By: Sunny Brandon on 02-28-2025 RBC (Bld) [#/Vol] 3.98 10*6/uL Normal 3.60-5.00 [facility] Comment on above: Performed By: #### C MP, CBC #### [address] Glucose [Mass/volume] in Ser um or PlasmaOrdered By: Sunnyvikram Taylor on 02-28-2025 Glucose [Mass/Vol] 98 mg/dL Normal 70-100 [facility] Comment on above: ADA recommended refe rence rangeRandom Glucose Reference Range is dependent on time and content of last meal. Glucose of more than 200 mg/dL in a nonstressed, ambulatory subject supports the diagnosis of Diabetes Mellitus. Result Comment: [place] om Glucose Reference Range is dependent on time and content of last meal. Glucose of more than 200 mg/dL in a nonstressed, ambulatory subject supports the diagnosis of Diabetes Mellitus. ADA recommended reference range Performed By: #### C MP, CBC #### [address] Hematocrit [Volume Fraction] of Blood by Automated countOrdered By: Sunny Taylor on 02-28-2025 Hematocrit (Bld) [Volume fraction] 38.6 % Normal 34.0-46.4 [facility] Comment on above: Performed By: #### C MP, CBC #### [address] Hemoglobin [Mass/volume] in BloodOrdered By: Sunny Taylor on 02-28-2025 Hemoglobin (Bld) [Mass/Vol] 12.9 g/dL Normal 11.8-15.4 [facility] Comment on above: Performed By: #### C MP, CBC #### [address] Leukocytes [#/volume] correc kala for nucleated erythrocytes in Blood by Automated counOrdered By: Sunny Taylor on 02-28-2025 WBC corrected for nucl RBC Auto (Bld) [#/Vol] 5.8 10*3/uL 3.8-11.6 [facility] Leukocytes [#/volume] in Blo od by Automated countOrdered By: Sunny Taylor on 02-28-2025 WBC (Bld) [#/Vol] 5.8 10*3/uL Normal 3.8-11.6 [facility] Comment on above: Performed By: #### C MP, CBC #### [place] [address] [place] Lymphocytes [#/volume] in Bl ood by Automated countOrdered By: Sunny Taylor on 02-28-2025 Lymphocytes (Bld) [#/Vol] 2.1 10*3/uL Normal 1.00-4.8 [facility] Comment on above: Performed By: #### C MP, CBC #### [place] [address] [place] Lymphocytes/100 leukocytes i n Blood by Automated countOrdered By: Sunny Taylor on 02-28-2025 Lymphocytes/100 WBC (Bld) 36.6 % Normal . [facility] Comment on above: Performed By: #### C MP, CBC #### [address] MCH [Entitic mass] by Automa kala countOrdered By: Sunnyvikram Taylor on 02-28-2025 MCH (RBC) [Entitic mass] 32.5 pg Normal 24.7-34.3 [facility] Comment on above: Performed By: #### C MP, CBC #### [address] MCHC Auto (RBC) [Mass/Vol]Or dered By: Sunny Taylor on 02-28-2025 MCHC (RBC) [Mass/Vol] 33.4 g/dL 32.0-35.0 [facility] MCV [Entitic volume] by Auto mated countOrdered By: Sunny Taylor on 02-28-2025 MCV (RBC) [Entitic vol] 97.1 fL Normal 80-100 [facility] Comment on above: Performed By: #### C MP, CBC #### [place] [address] [place] Monocytes [#/volume] in Bloo d by Automated countOrdered By: Sunny Taylor on 02-28-2025 Monocytes (Bld) [#/Vol] 0.4 10*3/uL Normal 0.0-0.8 [facility] Comment on above: Performed By: #### C MP, CBC #### [place] [address] [place] Monocytes/100 leukocytes in Blood by Automated countOrdered By: Sunny Taylor on 02-28-2025 Monocytes/100 WBC (Bld) 7.3 % Normal . [facility] Comment on above: Performed By: #### C MP, CBC #### [place] [address] [place] Neutrophils [#/volume] in Bl ood by Automated countOrdered By: Sunny Taylor on 02-28-2025 Neutrophils (Bld) [#/Vol] 2.8 10*3/uL Normal 1.8-7.7 [facility] Comment on above: Performed By: #### C MP, CBC #### [address] Neutrophils/100 leukocytes i n Blood by Automated countOrdered By: Sunny Taylor on 02-28-2025 Neutrophils/100 WBC (Bld) 48.6 % Normal . [facility] Comment on above: Performed By: #### C MP, CBC #### [address] No Panel InformationOrdered By: Sunny Taylor on 02-28-2025 Estimated GFR (CKD-EPI) > 60.0 mL/Min [facility] Creatinine Clearance (Chem N/A [facility] Nucleated erythrocytes [Pres ence] in Blood by Automated countOrdered By: Sunny Taylor on 02-28-2025 Nucleated RBC Auto Ql (Bld) 0.1 /100{WBC} 0-0.5 [facility] Platelet mean volume [Entiti c volume] in Blood by Automated countOrdered By: Sunny Taylor on 02-28-2025 Platelet mean volume (Bld) [Entitic vol] 8.3 fL Normal 6.3-10.7 [facility] Comment on above: Performed By: #### C MP, CBC #### [address] Platelets [#/volume] in Bloo d by Automated countOrdered By: Sunny Taylor on 02-28-2025 Platelets (Bld) [#/Vol] 182 10*3/uL Normal 150-450 [facility] Comment on above: Performed By: #### C MP, CBC #### [address] Potassium [Moles/volume] in Serum or PlasmaOrdered By: Sunny Taylor on 02-28-2025 Potassium [Moles/Vol] 4.0 mmol/L Normal 3.5-5.1 [facility] Comment on above: Performed By: #### C MP, CBC #### [address] Protein [Mass/volume] in Ser um or PlasmaOrdered By: Sunny Taylor on 02-28-2025 Protein [Mass/Vol] 7.0 g/dL Normal 6.4-8.9 [facility] Comment on above: Performed By: #### C MP, CBC #### [address] Serum globulin measurement b y calculation (mass/volume)Ordered By: Sunny Taylor on 02-28-2025 Globulin (S) [Mass/Vol] 3.5 g/dL Normal [facility] Comment on above: Performed By: #### C MP, CBC #### [address] Serum or plasma albumin/glob ulin mass ratioOrdered By: Sunny Taylor on 02-28-2025 Albumin/Globulin [Mass ratio] 1.0 {ratio} Normal [facility] Comment on above: Performed By: #### C MP, CBC #### [address] Serum or plasma anion gap de terminationOrdered By: Sunny Taylor on 02-28-2025 Anion gap [Moles/Vol] 9.3 mmol/L Normal 6.0-15.0 [facility] Comment on above: Performed By: #### C MP, CBC #### [place] [address] [place] Sodium [Moles/volume] in Ser um or PlasmaOrdered By: Sunny Taylor on 02-28-2025 Sodium [Moles/Vol] 141 mmol/L Normal 136-145 [facility] Comment on above: Performed By: #### C MP, CBC #### [address] Urea nitrogen [Mass/volume] in Serum or PlasmaOrdered By: Sunny Taylor on 02-28-2025 Urea nitrogen [Mass/Vol] 13 mg/dL Normal 7-25 [facility] Comment on above: Performed By: #### C MP, CBC #### [facility] [address] [place] [address] [facility] C Urineon 07-05-2024 Bacteria identified Cx Nom (U) Microbiology PROCEDURE: Urine Culture [R1] SOURCE: U Random BODY SITE: COLLECTED DATE/TIME: 07/02/2024 16:19 EST RECEIVED DATE/TIME: 07/03/2024 17:26 EST START DATE/TIME: 07/03/2024 17:26 EST FREE TEXT SOURCE: JANETTE CAMACHO, CARON CARVAJAL PA-C, CARON Kwan FINAL REPORTS Final Report [] Verified Date/Time: 07/05/2024 10:15 EST >100,000 cfu/ml Escherichia coli ESBL SUSCEPTIBILITY RESULTS __ LEGEND: S=Susceptible, N/R=Not Reported, Blank=Data not available, or drug not advisable or tested, I=Intermediate, ESBL=Extended spectrum beta-lactamase, R=Resistant, TFG=Thymidine-dependen t strain, JOSE M=Beta-lactamase positive, YASMINE=mcg/m;(mg/L), S*=Predicted susceptible interp, R*=Predicted resistant interp ECESBL Antibiotic YASMINE Dilutn YASMINE Interp Ampicillin >16 R* Ampicillin/ 16/8 I Sulbactam Aztreonam >16 ESBL Cefazolin >16 R* Cefepime >16 R* Ceftazidime >16 ESBL Ceftazidime/ <=8 S Avibactam Ceftriaxone >2 ESBL Cefuroxime >16 R* Ciprofloxacin >2 R Ertapenem <=0.5 S Gentamicin <=2 S Levofloxacin >4 R Meropenem <=1 S Nitrofurantoin >64 R Piperacillin/ <=8 S Tazobactam Tetracycline >8 R Tobramycin <=2 S Trimethoprim/ >2/38 R Sulfa Performing Locations R1: This test was performed at: [facility], [address] [place] [address], [address] , [place], Normal [facility] Comment on above: Performed By: #### [id number] #### [facility] [address] [place] [id number] [place] Renalon 07-05-2024 US Renal Exam Date/Time: 07/04/2024 09:25 EST Reason for Exam: r/o stones/obstruction;Oth er (please specify) Report IMPRESSION: Left kidney lower limits of normal in size. Otherwise, negative renal ultrasound. CLINICAL HISTORY: r/o stones/obstruction. COMPARISON: NONE. Findings: Right kidney measures 9.8 x 5.2 x 7.2 cm. Left kidney measures 9.1 x 4.4 x 5.9 cm. Left kidney lower limits of normal in size. Both kidneys normal in shape, echogenicity, color flow. No calculi, pelvocaliectasis, cortical thinning, cystic/solid lesions bilaterally. Ordering Provider: , FINAL REPORT Dictated: 07/05/2024 3:15 pm Edmond Villalpando MD Signed (Electronic Signature): 07/05/2024 3:15 pm Signed by: Edmond Villalpando MD Transcribed by: SID Technologist: HUMBERTO Schultz [facility] XR Abdomen 1 Viewon 07-05-20 24 XR Abdomen 1 View Exam Date/Time: 07/04/2024 09:29 EST Reason for Exam: r/o stones;Other (please specify) Report IMPRESSION: NONSPECIFIC ABDOMEN. CLINICAL HISTORY: UTI. Rule out renal calculi. COMPARISON: NONE. FINDINGS: Gas and stool in colon. No focal or diffuse small bowel dilatation. No mass effect and no abnormal calcification. Diffuse degenerative change lumbar spine. Narrowing hip joints bilaterally. Ordering Provider: , FINAL REPORT Dictated: 07/05/2024 3:21 pm Edmond Villalpando MD Signed (Electronic Signature): 07/05/2024 3:21 pm Signed by: Edmond Villalpando MD Transcribed by: SID Technologist: DAVIN Technical Comments Radiation Dose: Ka,r in mGy = na DAP = na Normal [facility] Ambulatory Visit Summaryon 1 09-01-2023 Ambulatory Visit Summary Ambulatory Visit Summary CARIDAD GLOVER I :1940 Visit Date:07/02/2024 Ambulatory Visit Instructions Your Diagnosis Recurrent UTI Your Care Team Attending Physician - CARON CARVAJAL PA-C Primary Care Physician - THAI PATEL This Is Your Medications List [facility] Prescription (#####) amlodipine (Norvasc 2.5 mg Tab) aspirin (aspirin 81 mg Oral EC Tab) busPIRone (busPIRone 15 mg Tab) celecoxib (celecoxib 200 mg Cap) cetirizine docusate escitalopram (Lexapro 20 mg Tab) furosemide (furosemide 40 mg Tab) hydrocortisone topical (hydrocortisone Top 1% Crm) infliximab (Remicade) latanoprost ophthalmic (latanoprost Opth 0.005% Batool) melatonin (Melatonin 1 mg oral tablet) metoprolol (metoprolol succinate 25 mg ER Tab) multivitamin (Multiple Vitamins Tab) nitrofurantoin (nitrofurantoin macrocrystals 50 mg Cap) omeprazole (omeprazole 20 mg Cap-DR) potassium chloride (potassium chloride 10 mEq ER Tab) quetiapine (SEROquel 25 mg Tab) quetiapine (SEROquel 25 mg Tab) Procedures Performed Closed reduction of nasal fracture (02/05/2021), Helene osteotomy second and third metatarsal. capsulotomy third metatarsophalangeal joint. Helene osteotomy second metatarsophalangeal joint. proximal interphalangeal joint arthroplasty left second digit and to the left third digit (09/19/2014), Cataract (2012), Back, Right hammer toe and bunionectomy, RIght knee arthroscopy, tubal ligation. Discharge Vitals Heart Rate (Peripheral) 65 Respiratory Rate 18 Blood Pressure 102/61 Height 153 cm Height 60 in Weight 95.6 kg Weight 210.762 lb BMI 40.84 What to do next Scheduled Follow-Up Appointments 2024 8:20 AM EDT With: JANETTE CAMACHO, CARON Kwan Where: [facility] [address] [place] [address]- Medications What How Much When Instructions Unchanged amlodipine (Norvasc 2.5 mg Tab) 2 Tablets By Mouth Every day Unchanged aspirin (aspirin 81 mg Oral EC Tab) 1 Tablets By Mouth Every day Unchanged busPIRone (busPIRone 15 mg Tab) 1 Tablets By Mouth 2 times a day Unchanged celecoxib (celecoxib 200 mg Cap) 60 cap(s), 0 Refill(s) Unchanged cetirizine 10 Milligram Every day Unchanged docusate 50 Milligram 2 times a day Unchanged escitalopram (Lexapro 20 mg Tab) 1 Tablets By Mouth Every day Unchanged furosemide (furosemide 40 mg Tab) 1 Tablets By Mouth Every day Take 40mg BID for 1 week and then decrease to 40mg QD. Unchanged hydrocortisone topical (hydrocortisone Top 1% Crm) 28 gm, 0 Refill(s) Unchanged infliximab (Remicade) Dr Taylor Unchanged latanoprost ophthalmic (latanoprost Opth 0.005% Batool) See instructions 1 drop Both eyes daily Unchanged melatonin (Melatonin 1 mg oral tablet) 1 Milligram By Mouth Once a day (at bedtime) Unchanged metoprolol (metoprolol succinate 25 mg ER Tab) 1 Tablets By Mouth Every day Unchanged [facility] Prescription (#####) 0 30 tab(s), 0 Refill(s) Unchanged multivitamin (Multiple Vitamins Tab) 1 Tablets By Mouth Every day Unchanged nitrofurantoin (nitrofurantoin macrocrystals 50 mg Cap) 21 cap(s), 0 Refill(s) Unchanged omeprazole (omeprazole 20 mg Cap-DR) 1 Capsules By Mouth Once a day (in the morning) Unchanged potassium chloride (potassium chloride 10 mEq ER Tab) 1 Tablets By Mouth Every day with food Unchanged quetiapine (SEROquel 25 mg Tab) 0.5 Tablets By Mouth At bedtime Unchanged quetiapine (SEROquel 25 mg Tab) 12.5 Milligram By Mouth Every day in afternoon Allergies cortisone (severe headache) penicillin (Unknown) Problems Ongoing - Any problem that you are currently receiving treatment for. Alcohol use disorder Alzheimer dementia Benign neoplasm of colon Cerebrovascular disease Chronic venous insufficiency of lower extremity Dementia ESBL (extended spectrum beta-lactamase) producing bacteria infection Glaucoma Herpes labialis History of ventricular tachycardia Immunodeficiency due to treatment with immunosuppressive medication Lumbar spondylosis Neurodermatitis Nocturia Obesity Obstructive sleep apnea syndrome Psoriatic arthritis Psychophysical visual disturbance Pulmonary hypertension, unspecified Recurrent falls Urinary frequency Visual hallucinations Historical - Any problem that you are no longer receiving treatment for. Deformity of metatarsal Diabetes mellitus without complication Ventricular tachycardia Patient Survey You may receive a survey via text or e-mail asking about your office visit. Please share your experience with us by completing your survey. We appreciate your feedback and thank you for choosing us for your care. Normal [facility] URINALYSISOrdered By: SYSTEM SYSTEM on 06-29-2024 Bacteria Auto Ql (U) 3+ /HPF Invalid Interpretation Code Trace/HPF [facility] UA Auto SS Clarity (U) Ex.Turbid *ABN* (06/29/24 8:00 AM) Invalid Interpretation Code Clear [facility] UA Auto SS Color (U) Dark-Berks 1 *ABN* (06/29/24 8:00 AM) Invalid Interpretation Code Yellow [facility] UA Auto SS Comment on above: Interpretive Data: M icroscopic readings are only performed on those samples that meet specific criteria set forth by [facility]. Epithelial cells.squamous Auto (Urine sed) [#/Area] 3-4 graded/HPF Invalid Interpretation Code [facility] UA Auto SS Hemoglobin Auto test strip (U) [Mass/Vol] 2+ mg/dL Invalid Interpretation Code Negativemg/ dL [facility] UA Auto SS Leukocyte clumps Auto (Urine sed) [#/Area] >30 graded/HPF Invalid Interpretation Code [facility] UA Auto SS Leukocyte esterase Auto test strip Ql (U) 500 Shekhar/uL Shekhar/uL Invalid Interpretation Code NegativeLeu /uL [facility] UA Auto SS Nitrite Auto test strip Ql (U) 2+ mg/dL Invalid Interpretation Code Negativemg/ dL [facility] UA Auto SS pH (U) 6.0 *NA* (06/29/24 8:00 AM) Invalid Interpretation Code 5.0 - 9.0 [facility] UA Auto SS Protein Ql (U) 3+ mg/dL Invalid Interpretation Code Negativemg/ dL [facility] UA Auto SS Specific gravity (U) [Rel density] 1.020 *NA* (06/29/24 8:00 AM) Invalid Interpretation Code 1.005 - 1.030 [facility] UA Auto SS WBC Auto (Urine sed) [#/Area] >75 graded/HPF Invalid Interpretation Code 0-5graded/H PF [facility] UA Auto SS URINALYSISOrdered By: Lalitha shearer on 06-29-2024 UA Spec Desc Clean Catch (06/29/24 8:00 AM) Normal [facility] UA Auto SS Urinalysis with Microon 06-09 Bacteria Auto Ql (U) 3+ /HPF Abnormal Trace Fish [facility] Comment on above: Performed By: #### 4 [id number] #### [facility] [address] [place] [address] Clarity (U) Ex.Turbid Abnormal Clear [facility] Comment on above: Performed By: #### 4 [id number] #### [facility] [address] [place] [address] Color (U) Dark-Berks Abnormal Yellow [facility] Comment on above: Result Comment: Micr oscopic readings are only performed on those samples that meet specific criteria set forth by [facility]. Performed By: #### 4 [id number] #### [facility] [address] [place] [address] 14741 Epithelial cells.squamous Auto (Urine sed) [#/Area] 3-4 Invalid Interpretation Code [facility] Comment on above: Performed By: #### 4 [id number] #### [facility] [address] [place] [address] Hemoglobin Auto test strip (U) [Mass/Vol] 2+ mg/dL Abnormal Negative [facility] Comment on above: Performed By: #### 4 [id number] #### [facility] [address] [place] [address] 36628 Leukocyte clumps Auto (Urine sed) [#/Area] >30 Abnormal [facility] Comment on above: Performed By: #### 4 [id number] #### [facility] [address] [place] [address] 68497 Leukocyte esterase Auto test strip Ql (U) 500 Shekhar/uL Abnormal Negative [facility] Comment on above: Performed By: #### 4 [id number] #### [facility] [address] [place] [address] Nitrite Auto test strip Ql (U) 2+ mg/dL Abnormal Negative [facility] Comment on above: Performed By: #### 4 [id number] #### [facility] [address] [place] [address] 97335 pH (U) 6.0 [pH] Invalid Interpretation Code 5.0-9.0 [facility] Comment on above: Performed By: #### 4 [id number] #### [facility] [address] [place] [address] 08331 Protein Ql (U) 3+ mg/dL Abnormal Negative [facility] Comment on above: Performed By: #### 4 [id number] #### [facility] [address] [place] [address] 64937 Specific gravity (U) [Rel density] 1.020 Invalid Interpretation Code 1.005-1.030 [facility] Comment on above: Performed By: #### 4 [id number] #### [facility] [address] [place] [address] 92172 WBC Auto (Urine sed) [#/Area] >75 Abnormal 0-5 [facility] Comment on above: Performed By: #### 4 [id number] #### [facility] [address] [place] [address] 59962 Type of Urine collection method Clean Catch Normal [facility] Comment on above: Performed By: #### 4 [id number] #### [facility] [address] [place] [address]44 Urinalysis with MicroOrdered By: SYSTEM SYSTEM on 06-29-2024 Bilirubin Ql (U) Negative Normal Negative [facility] UA Auto SS Comment on above: Performed By: #### 4 [id number] #### [facility] [address] [place] [address] 05935 Glucose Ql (U) Negative Normal Negative [facility] Au to SS Comment on above: Performed By: #### 4 [id number] #### [facility] [address] [place] [address] 70457 Ketones Auto test strip Ql (U) Negative Normal Negative [facility] Auto SS Comment on above: Performed By: #### 4 [id number] #### [facility] [address] [place] [address] 36953 Mucus Auto Ql (U) Negative Normal Negative [facility]A Auto SS Comment on above: Performed By: #### 4 [id number] #### [facility] [address] [place] [address] 08153 Urobilinogen (U) [Mass/Vol] Negative Normal Negative [facility] UA Auto SS Comment on above: Performed By: #### 4 [id number] #### [facility] [address] [place] [address] 38647 C Urineon 06-20-2024 Bacteria identified Cx Nom (U) Microbiology PROCEDURE: Urine Culture [R1] SOURCE: U CleanCatch BODY SITE: COLLECTED DATE/TIME: 06/18/2024 00:30 EST RECEIVED DATE/TIME: 06/18/2024 10:44 EST START DATE/TIME: 06/18/2024 10:44 EST FREE TEXT SOURCE: EDMOND PACHECO DO, DO, EDMOND FINAL REPORTS Final Report [] Verified Date/Time: 06/20/2024 08:37 EST 2,000 cfu/ml Mixed skin contaminants Performing Locations R1: This test was performed at: [facility], [address] [place] [address], [address]- , [place], Normal [facility] Comment on above: Performed By: #### 2 [id number] #### [facility] [address] [place] [address] 21335 UA with Cult Rflxon 06-18-20 24 Bacteria Auto Ql (U) Trace Normal Trace Fish [facility] Comment on above: Performed By: #### 4 [id number] #### [facility] [address] [place] [address] 04022 Bilirubin Ql (U) Negative Normal Negative [facility] Comment on above: Performed By: #### 4 [id number] #### [facility] [address] [place] [address] Clarity (U) Clear Normal Clear [facility] Comment on above: Performed By: #### 4 [id number] #### [facility] [address] [place] [address] Color (U) Yellow Normal Yellow [facility] Comment on above: Result Comment: Micr oscopic readings are only performed on those samples that meet specific criteria set forth by [facility]. Performed By: #### 4 [id number] #### [facility] [address] [place] [address] Epithelial cells.squamous Auto (Urine sed) [#/Area] 0-2 Invalid Interpretation Code [facility] Comment on above: Performed By: #### 4 [id number] #### [facility] [address] [place] [address] Glucose Ql (U) Negative Normal Negative [facility] Comment on above: Performed By: #### 4 [id number] #### [facility] [address] [place] [address] Hemoglobin Auto test strip (U) [Mass/Vol] Negative Normal Negative [facility] Comment on above: Performed By: #### 4 [id number] #### [facility] [address] [place] [address] Ketones Auto test strip Ql (U) Negative Normal Negative [facility] Comment on above: Performed By: #### 4 [id number] #### [facility] [address] [place] [address] Leukocyte esterase Auto test strip Ql (U) 25 Shekhar/uL Normal Negative [facility] Comment on above: Performed By: #### 4 [id number] #### [facility] [address] [place] [address] Mucus Auto Ql (U) Trace Normal Negative [facility] Comment on above: Performed By: #### 4 [id number] #### [facility] [address] [place] [address] Nitrite Auto test strip Ql (U) Negative Normal Negative [facility] Comment on above: Performed By: #### 4 [id number] #### [facility] [address] [place] [address] pH (U) 5.5 [pH] Invalid Interpretation Code 5.0-9.0 [facility] Comment on above: Performed By: #### 4 [id number] #### [facility] [address] [place] [address] 27221 Protein Ql (U) Negative Normal Negative [facility] Comment on above: Performed By: #### 4 [id number] #### [facility] [address] [place] [address] 14602 RBC Ql (U) 0-3 Normal 0-3 [facility] Comment on above: Performed By: #### 4 [id number] #### [facility] [address] [place] [address] 64727 Specific gravity (U) [Rel density] 1.019 Invalid Interpretation Code 1.005-1.030 [facility] Comment on above: Performed By: #### 4 [id number] #### [facility] [address] [place] [address] 26598 Urobilinogen (U) [Mass/Vol] Negative Normal Negative [facility] Comment on above: Performed By: #### 4 [id number] #### [facility] [address] [place] [address] 21897 WBC Auto (Urine sed) [#/Area] 6-15 Abnormal 0-5 [facility] Comment on above: Performed By: #### 4 [id number] #### [facility] [address] [place] [address] 90032 Type of Urine collection method Clean Catch Normal [facility] Comment on above: Performed By: #### 4 [id number] #### [facility] [address] [place] [address] URINALYSISOrdered By: SYSTEM SYSTEM on 06-18-2024 Bacteria Auto Ql (U) Trace /HPF Normal Trace/HPF [facility] UA Auto SS Bilirubin Ql (U) Negative Normal Negativemg/ dL [facility] UA Auto SS Clarity (U) Clear (06/18/24 12:30 AM) Normal Clear [facility] UA Auto SS Color (U) Yellow 1 (06/18/24 12:30 AM) Normal Yellow [facility] UA Auto SS Comment on above: Interpretive Data: M icroscopic readings are only performed on those samples that meet specific criteria set forth by [facility]. Epithelial cells.squamous Auto (Urine sed) [#/Area] 0-2 graded/HPF Invalid Interpretation Code [facility] UA Auto SS Glucose Ql (U) Negative Normal Negativemg/ dL [facility] UA Auto SS Hemoglobin Auto test strip (U) [Mass/Vol] Negative Normal Negativemg/ dL [facility] UA Auto SS Ketones Auto test strip Ql (U) Negative Normal Negativemg/ dL [facility] UA Auto SS Leukocyte esterase Auto test strip Ql (U) 25 Shekhar/uL Shekhar/uL Normal NegativeLeu /uL [facility] UA Auto SS Mucus Auto Ql (U) Trace graded/LPF Normal Negati vegra ded/LPF [facility] UA Auto SS Nitrite Auto test strip Ql (U) Negative Normal Negativemg/ dL [facility] UA Auto SS pH (U) 5.5 *NA* (06/18/24 12:30 AM) Invalid Interpretation Code 5.0 - 9.0 [facility] UA Auto SS Protein Ql (U) Negative Normal Negativemg/ dL [facility] UA Auto SS RBC Ql (U) 0-3 graded/HPF Normal 0-3graded/H PF [facility] UA Auto SS Specific gravity (U) [Rel density] 1.019 *NA* (06/18/24 12:30 AM) Invalid Interpretation Code 1.005 - 1.030 [facility] UA Auto SS Urobilinogen (U) [Mass/Vol] Negative Normal Negativemg/ dL [facility] UA Auto SS WBC Auto (Urine sed) [#/Area] 6-15 graded/HPF Invalid Interpretation Code 0-5graded/H PF [facility] UA Auto SS URINALYSISOrdered By: Alesia Henson on 06-18-2024 UA Spec Desc Clean Catch (06/18/24 12:30 AM) Normal [facility] UA Auto SS C Urineon 10-25-2024 Bacteria identified Cx Nom (U) Microbiology PROCEDURE: Urine Culture [R1] SOURCE: U CleanCatch BODY SITE: COLLECTED DATE/TIME: 05/30/2024 10:00 EDT RECEIVED DATE/TIME: 05/30/2024 20:27 EDT START DATE/TIME: 05/30/2024 20:27 EDT FREE TEXT SOURCE: JUNIOR BRYANT, EDMOND PACHECO DO, EDMOND FINAL REPORTS Final Report [] Verified Date/Time: 06/01/2024 10:16 EDT >100,000 cfu/ml Escherichia coli ESBL SUSCEPTIBILITY RESULTS __ LEGEND: S=Susceptible, N/R=Not Reported, Blank=Data not available, or drug not advisable or tested, I=Intermediate, ESBL=Extended spectrum beta-lactamase, R=Resistant, TFG=Thymidine-dependen t strain, JOSE M=Beta-lactamase positive, YASMINE=mcg/m;(mg/L), S*=Predicted susceptible interp, R*=Predicted resistant interp ECESBL Antibiotic YASMINE Dilutn YASMINE Interp Ampicillin >16 R* Ampicillin/ >16/8 R Sulbactam Aztreonam >16 ESBL Cefazolin >16 R* Cefepime >16 R* Ceftazidime >16 ESBL Ceftazidime/ <=8 S Avibactam Ceftriaxone >2 ESBL Cefuroxime >16 R* Ciprofloxacin >2 R Ertapenem <=0.5 S Gentamicin <=2 S Levofloxacin >4 R Meropenem <=1 S Nitrofurantoin >64 R Piperacillin/ <=8 S Tazobactam Tetracycline >8 R Tobramycin 4 S Trimethoprim/ >2/38 R Sulfa Performing Locations R1: This test was performed at: [facility], [address] [place] [address], [address]- , [place], Normal [facility] Comment on above: Performed By: #### 2 [id number] #### [facility] [address] [place] [address] 88953 UA with Cult Rflxon 05-30-20 Bacteria Auto Ql (U) 4+ /HPF Abnormal Trace Fish [facility] Comment on above: Performed By: #### 4 [id number] #### [facility] [address] [place] [address] 41108 Clarity (U) Ex.Turbid Abnormal Clear [facility] Comment on above: Performed By: #### 4 [id number] #### [facility] [address] [place] [address] 29800 Color (U) Light-Berks Abnormal Yellow [facility] Comment on above: Result Comment: Micr oscopic readings are only performed on those samples that meet specific criteria set forth by [facility]. Performed By: #### 4 [id number] #### [facility] [address] [place] [address]3374 Epithelial cells.squamous Auto (Urine sed) [#/Area] 0-2 Invalid Interpretation Code [facility] Comment on above: Performed By: #### 4 [id number] #### [facility] [address] [place] [address] 93951 Hemoglobin Auto test strip (U) [Mass/Vol] 1+ mg/dL Abnormal Negative [facility] Comment on above: Performed By: #### 4 [id number] #### [facility] [address] [place] [address] 35053 Leukocyte clumps Auto (Urine sed) [#/Area] 21-30 Abnormal [facility] Comment on above: Performed By: #### 4 [id number] #### [facility] [address] [place] [address] Leukocyte esterase Auto test strip Ql (U) 500 Shekhar/uL Abnormal Negative [facility] Comment on above: Performed By: #### 4 [id number] #### [facility] [address] [place] [address] Nitrite Auto test strip Ql (U) 2+ mg/dL Abnormal Negative [facility] Comment on above: Performed By: #### 4 [id number] #### [facility] [address] [place] [address] pH (U) 7.0 [pH] Invalid Interpretation Code 5.0-9.0 [facility] Comment on above: Performed By: #### 4 [id number] #### [facility] [address] [place] [address] Protein Ql (U) 1+ mg/dL Abnormal Negative [facility] Comment on above: Performed By: #### 4 [id number] #### [facility] [address] [place] [address] RBC Ql (U) 31-75 Abnormal 0-3 [facility] Comment on above: Performed By: #### 4 [id number] #### [facility] [address] [place] [address] Specific gravity (U) [Rel density] 1.017 Invalid Interpretation Code 1.005-1.030 [facility] Comment on above: Performed By: #### 4 [id number] #### [facility] [address] [place] [address] WBC Auto (Urine sed) [#/Area] >75 Abnormal 0-5 [facility] Comment on above: Performed By: #### 4 [id number] #### [facility] [address] [place] [address] Type of Urine collection method Clean Catch Normal [facility] Comment on above: Performed By: #### 4 [id number] #### [facility] [address] [place] [address] UA with Cult RflxOrdered By: SYSTEM SYSTEM on 05-30-2024 Bilirubin Ql (U) Negative Normal Negative [facility] UA Auto SS Comment on above: Performed By: #### 4 [id number] #### [facility] [address] [place] [address] Glucose Ql (U) Negative Normal Negative [facility] UA Au to SS Comment on above: Performed By: #### 4 [id number] #### [facility] [address] [place] [address] 18164 Ketones Auto test strip Ql (U) Negative Normal Negative [facility] UA Auto SS Comment on above: Performed By: #### 4 [id number] #### [facility] [address] [place] [address] 52554 Mucus Auto Ql (U) Negative Normal Negative [facility] UA Auto SS Comment on above: Performed By: #### 4 [id number] #### [facility] [address] [place] [address] 77676 Urobilinogen (U) [Mass/Vol] Negative Normal Negative [facility] UA Auto SS Comment on above: Performed By: #### 4 [id number] #### [facility] [address] [place] [address] URINALYSISOrdered By: SYSTEM SYSTEM on 05-30-2024 Bacteria Auto Ql (U) 4+ /HPF Invalid Interpretation Code Trace/HPF [facility] UA Auto SS Clarity (U) Ex.Turbid *ABN* (05/30/24 10:00 AM) Invalid Interpretation Code Clear [facility] UA Auto SS Color (U) Light-Berks 1 *ABN* (05/30/24 10:00 AM) Invalid Interpretation Code Yellow [facility] UA Auto SS Comment on above: Interpretive Data: M icroscopic readings are only performed on those samples that meet specific criteria set forth by [facility]. Epithelial cells.squamous Auto (Urine sed) [#/Area] 0-2 graded/HPF Invalid Interpretation Code [facility] UA Auto SS Hemoglobin Auto test strip (U) [Mass/Vol] 1+ mg/dL Invalid Interpretation Code Negativemg/ dL [facility] UA Auto SS Leukocyte clumps Auto (Urine sed) [#/Area] 21-30 graded/HPF Invalid Interpretation Code [facility] UA Auto SS Leukocyte esterase Auto test strip Ql (U) 500 Shekhar/uL Shekhar/uL Invalid Interpretation Code NegativeLeu /uL [facility] UA Auto SS Nitrite Auto test strip Ql (U) 2+ mg/dL Invalid Interpretation Code Negativemg/ dL [facility] UA Auto SS pH (U) 7.0 *NA* (05/30/24 10:00 AM) Invalid Interpretation Code 5.0 - 9.0 [facility] UA Auto SS Protein Ql (U) 1+ mg/dL Invalid Interpretation Code Negativemg/ dL [facility] UA Auto SS RBC Ql (U) 31-75 graded/HPF Invalid Interpretation Code 0-3graded/H PF [facility] UA Auto SS Specific gravity (U) [Rel density] 1.017 *NA* (05/30/24 10:00 AM) Invalid Interpretation Code 1.005 - 1.030 [facility] UA Auto SS WBC Auto (Urine sed) [#/Area] >75 graded/HPF Invalid Interpretation Code 0-5graded/H PF [facility] UA Auto SS URINALYSISOrdered By: Kristi Stone on 05-30-2024 UA Spec Desc Clean Catch (05/30/24 10:00 AM) Normal [facility] UA Auto SS C Urineon 05-17-2024 Bacteria identified Cx Nom (U) Microbiology PROCEDURE: Urine Culture [R1] SOURCE: CleanCatch BODY SITE: COLLECTED DATE/TIME: 05/15/2024 08:45 EDT RECEIVED DATE/TIME: 05/15/2024 17:14 EDT START DATE/TIME: 05/15/2024 17:14 EDT FREE TEXT SOURCE: JUNIOR BRYANT, EDMOND PACHECO DO, EDMOND FINAL REPORTS Final Report [] Verified Date/Time: 05/17/2024 10:37 EDT >100,000 cfu/ml Escherichia coli ESBL SUSCEPTIBILITY RESULTS __ LEGEND: S=Susceptible, N/R=Not Reported, Blank=Data not available, or drug not advisable or tested, I=Intermediate, ESBL=Extended spectrum beta-lactamase, R=Resistant, TFG=Thymidine-dependen t strain, JOSE M=Beta-lactamase positive, YASMINE=mcg/m;(mg/L), S*=Predicted susceptible interp, R*=Predicted resistant interp ECESBL Antibiotic YASMINE Dilutn YASMINE Interp Ampicillin >16 R* Ampicillin/ >16/8 R Sulbactam Aztreonam >16 ESBL Cefazolin >16 R* Cefepime >16 R* Ceftazidime >16 ESBL Ceftazidime/ <=8 S Avibactam Ceftriaxone >2 ESBL Cefuroxime >16 R* Ciprofloxacin >2 R Ertapenem <=0.5 S Gentamicin <=2 S Levofloxacin >4 R Meropenem <=1 S Nitrofurantoin >64 R Piperacillin/ <=8 S Tazobactam Tetracycline >8 R Tobramycin <=2 S Trimethoprim/ >2/38 R Sulfa Performing Locations R1: This test was performed at: [facility], [address] [place] [address], [id number]- , [place], [facility] Comment on above: Performed By: #### 2 [id number] #### [facility] [address] [place] [address] 22117 C Urineon 05-06-2024 Bacteria identified Cx Nom (U) Microbiology PROCEDURE: Urine Culture [R1] SOURCE: U Pedibag BODY SITE: COLLECTED DATE/TIME: 05/04/2024 13:10 EDT RECEIVED DATE/TIME: 05/04/2024 14:38 EDT START DATE/TIME: 05/04/2024 14:38 EDT FREE TEXT SOURCE: JUNIOR BRYANT, EDMOND PACHECO DO, EDMOND FINAL REPORTS Final Report [] Verified Date/Time: 05/06/2024 10:08 EDT >100,000 cfu/ml Escherichia coli ESBL SUSCEPTIBILITY RESULTS __ LEGEND: S=Susceptible, N/R=Not Reported, Blank=Data not available, or drug not advisable or tested, I=Intermediate, ESBL=Extended spectrum beta-lactamase, R=Resistant, TFG=Thymidine-dependen t strain, JOSE M=Beta-lactamase positive, YASMINE=mcg/m;(mg/L), S*=Predicted susceptible interp, R*=Predicted resistant interp ECESBL Antibiotic YASMINE Dilutn YASMINE Interp Ampicillin >16 R* Ampicillin/ <=8/4 S Sulbactam Aztreonam 16 ESBL Cefazolin >16 R* Cefepime >16 R* Ceftazidime 8 ESBL Ceftazidime/ <=8 S Avibactam Ceftriaxone >2 ESBL Cefuroxime >16 R* Ciprofloxacin >2 R Ertapenem <=0.5 S Gentamicin <=2 S Levofloxacin >4 R Meropenem <=1 S Nitrofurantoin >64 R Piperacillin/ <=8 S Tazobactam Tetracycline >8 R Tobramycin <=2 S Trimethoprim/ >2/38 R Sulfa Performing Locations R1: This test was performed at: [facility], [address] [place] [address], [address]- , [place], Normal [facility] Comment on above: Performed By: #### 2 [id number] #### [facility] [address] [place] [address] 0[address] BNPon 03-02-2024 [address] Ctr BNP Pass Normal [facility] Comment on above: Performed By: #### 1 [id number] #### [facility] [address] [place] [address] Natriuretic peptide B (Bld) [Mass/Vol] 120 pg/mL High 5-80 [facility] Comment on above: Performed By: #### 1 [id number] #### [facility] [address] [place] [id number] CHEMISTRYOrdered By: SYSTEM SYSTEM on 03-02-2024 Albumin [Mass/Vol] 3.4 g/dL Normal 3.3 - 5.0 gm/dL Remisol Chem Albumin/Globulin [Mass ratio] 0.7 {ratio} Low 1.1 - 2.2 Remisol Chem ALP [Catalytic activity/Vol] 81 [iU]/d Normal 21 - 98 Int._Unit/L Remisol Chem ALT No additional P-5'-P [Catalytic activity/Vol] 17 [iU]/d Normal 6 - 46 Int._Unit/L Remisol Chem Anion gap [Moles/Vol] 10 mmol/L Normal 6 - 16 mEq/L Remisol Chem AST [Catalytic activity/Vol] 34 [iU]/d Normal 5 - 43 Int._Unit/L Remisol Chem Bilirubin [Mass/Vol] 1.0 mg/dL Normal 0.0 - 1 .1 mg/dL Rem[facility] Chem Calcium [Mass/Vol] 9.1 mg/dL Normal 8.9 - 11. 1 mg/dL [facility] Chloride [Moles/Vol] 102 mmol/L Normal 101 - 1 11 mmol/L [facility] CO2 [Moles/Vol] 29 mmol/L Normal 21 - 31 mmol/L Rem[facility] Chem Creatinine [Mass/Vol] 0.8 mg/dL Normal 0.5 - 1.3 mg/dL Remisol Chem eGFR 74 mL/min/1.73 m2 Normal >=59mL/min / 1.73 m2 Remisol Chem Globulin (S) [Mass/Vol] 4.6 g/dL High 1.4 - 4.0 gm/dL Rem[facility] Chem Glucose [Mass/Vol] 90 mg/dL Normal 55 - 199 mg/dL Rem[facility] Chem Potassium [Moles/Vol] 4.5 mmol/L Normal 3.5 - 5.3 mmol/L Remisol Chem Protein [Mass/Vol] 8.0 g/dL High 6.0 - 7.8 gm/dL Rem[facility] Chem Sodium [Moles/Vol] 136 mmol/L Normal 135 - 145 mmol/L Remisol Chem Urea nitrogen [Mass/Vol] 17 mg/dL Normal 5 - 21 mg/dL Rem[facility] Chem Urea nitrogen/Creatinine [Mass ratio] 21 mg/mg High 10 - 20 Remisol Chem CHEMISTRYOrdered By: Lakshmi Panda on 03-02-2024 Natriuretic peptide B (Bld) [Mass/Vol] 120 pg/mL High 5 - 80 pg/mL [facility] [place] HemeManSS HEMATOLOGYOrdered By: SYSTEM SYSTEM on 03-02-2024 Basophils/100 WBC (Bld) 0.6 % Normal 0.0 - 2.0 % [facility]e Basophils/Leukocytes Auto (Bld) [Pure # fraction] 0.0 E9/L Normal 0.0 - 0.2 E9/L [facility] Eosinophils (Bld) [#/Vol] 0.6 E9/L High 0.0 - 0.5 E9/L [facility] Eosinophils/100 WBC (Bld) 6.9 % Normal 0.0 - 8.0 % [facility] Erythrocyte distribution width (RBC) [Ratio] 13.7 % Normal 10.9 - 14.2 % [facility] Hematocrit (Bld) [Volume fraction] 39.9 % Normal 34.0 - 46.0 % [facility] Hemoglobin (Bld) [Mass/Vol] 13.3 g/dL Normal 12.0 - 16.0 gm/dL [facility] Lymphocytes (Bld) [#/Vol] 3.0 E9/L Normal 1.0 - 4.0 E9/L [facility] Lymphocytes/100 WBC (Bld) 36.1 % Normal 14.0 - 50.0 % [facility] MCH (RBC) [Entitic mass] 33.2 pg Normal 27.0 - 34.0 pg Rem[facility]e MCHC (RBC) [Mass/Vol] 33.4 g/dL Normal 31.4 - 36.0 gm/dL [facility] MCV (RBC) [Entitic vol] 99.5 fL Normal 80.0 - 100.0 fL [facility] Monocytes (Bld) [#/Vol] 0.7 E9/L Normal 0.2 - 1.0 E9/L [facility] Monocytes/100 WBC (Bld) 8.3 % Normal 4.0 - 14.0 % [facility] Neutrophils (Bld) [#/Vol] 4.0 E9/L Normal 2.0 - 7.5 E9/L [facility] Neutrophils/100 WBC (Bld) 48.1 % Normal 36.0 - 75.0 % [facility] Platelet mean volume (Bld) [Entitic vol] 8.4 fL Normal 6.4 - 10.8 fL [facility] Platelets (Bld) [#/Vol] 179.0 E9/L Normal 150. 0 - 500.0 E9/L [facility] RBC (Bld) [#/Vol] 4.0 E12/L Low 4.3 - 5.9 E12/L [facility] WBC corrected for nucl RBC Auto (Bld) [#/Vol] 8.3 E9/L Normal 4.0 - 11.0 E9/L [facility] Heart and Vascular Office/ inic Noteon 03-02-2024 Heart and Vascular Office/Clinic Note Heart and Vascular Office/Clinic Note Chief Complaint SOB, Edema, dizziness. Hasnt been seen since 12/2021 History of Present Illness Is a 83-year-old female with past medical hx of dyspnea on exertion, dizzy spells, and nonsustained ventricular tachycardia which was asymptomatic on Holter monitoring. Pt is here today for SOB, dizziness, and edema. Patient's daughter comes in and provides most of the history today. Pt was last seen in our office in 2021 but her current complaints consist of SOB, dizziness, edema, significant weight gain. Pt is limited in speech and cognition due to dementia. Pt daughter states pt has been living in Assisted living where she has seemed to put on a lot of weight in a short amount of time and experiences significant edema. Daughter reports Assisted living tried Lasix 20 mg , but they are unsure of any changes in weight or change in edema without having comparative recordings taken. Daughter reports pt is also experiencing significant fatigue and SOB with ambulation. Daughter understands decrease in activity due to assisted living is likely a contributing factor to decline in quality of life. Daughter also explains that she does not currently have access to over eating as a contributing factor of her significant weight increase. Pt often experiences falls due to instability as well as chronic urinary tract infections. Rales throughout lungs accompanied with bilateral lower leg edema were present during pe , pt will undergo loading phase of Lasix 40 mg BID for 7 days and then decrease to Lasix 40mg qD thereafter and fu in 4 weeks.Pt should start potassium chloride during this time to support kidneys through Lasix therapy. Recent BNP numbers resulting with in range but with pt symptoms we will repeat BNP and add CMP and BMP to evaluate and pt should undergo surveillance echo at this time to further evaluate. Pt daughter agrees to monitor pts weight until next visit so we can evaluate progress. NOTE FROM 12/15/21 There were total of 497 ventricular tachycardic runs totaling 1864 beats. The fastest V. tach was 7 beats at 184 beats a minute and the longest was 10 beats at 77 beats a minute. The official results of her event monitor are as below. Review of Systems PHQ Score Initial Depression Screen Score: 0 SCORE ROS - Provider Constitutional: no fever, no chills, no sweats, no weakness Respiratory: yes shortness of breath, no cough Cardiovascular: no chest pain pos lower extremity edema Neuro: no dizziness. no loss of consciousness Cardiac Diagnostics 11/20/21 Holter CONCLUSIONS: 1. Abnormal 48-hour Holter monitor. The patient had frequent premature ventricular contractions and premature atrial contractions as well as nonsustained ventricular tachycardia which was asymptomatic. In addition, the patient had several supraventricular tachycardia runs, again were asymptomatic. 2. No atrial fibrillation or pauses noted. 3. No symptoms reported in the patient's diary throughout the 48-hour period. 4. Results were conveyed to Dr. Edmond Pacheco on 11/20/21 at 09:54 a.m. (11/04/2021 12:54 EDT Echo Transthoracic Complete) SUMMARY/CONCLUSION: 1. Normal left ventricular size and function with a left ventricular ejection fraction of 70%. 2. Stage I diastolic dysfunction. 3. Mild left atrial enlargement. 4. Trivial to mild mitral regurgitation. 5. Trivial tricuspid regurgitation with a RVSP of at least 38 mm Hg. 6. No old echocardiograms for comparison. [1] (01/26/2022 11:11 EDT NM Myocardial Spect Rest/Stress 1 Day) CONCLUSIONS: 1. Normal, adequate, Lexiscan/myocardial perfusion imaging. Negative for ischemia by EKG and myocardial perfusion imaging. 2. Normal TID of 0.99. 3. Normal left ventricular size and function with an ejection fraction of 68%. 4. Rare premature ventricular contraction noted. 5. This is a low risk study. [2] Physical Exam Vitals & Measurements HR: 58(Peripheral) RR: 18 BP: 140/90 SpO2: 94% HT: 60 in HT: 152.4 cm WT: 93.2 kg WT: 205.04 lb BMI: 40.13 General: alert, no acute distress Cardiovascular: regular rate and rhythm, no murmur normal peripheral perfusion Respiratory: Lungs rales throughout, respirations non labored Extremities: 2+ edema left lower extremity. +2 edema right lower extremity Neurological: oriented x 4, LOC appropriate for age, speech normal Skin: Warm, dry, intact- no rash or concerning lesions Assessment/Plan 1. Lower extremity edema (R60.0: Localized edema) Bilateral lower leg edema present during exam in office today. Pt should undergo loading phase of Lasix 40 mg BID for 7 days and maintain lasix 40mg qD there after for time being. Pt should start potassium chloride qD as well for support during Lasix therapy 2. SOB (shortness of breath) (R06.02: Shortness of breath) Rales presents during pe today in office. Pt will undergo echo to further evaluate, pt will undergo loading phase of Lasix 40 mg BID for 7 days and maintain lasix 40mg qD for time being (more content not included)... Normal [facility] Comment on above: Result Comment: Elec tronically Signed By: Gera Thomas PA-C\.br\Date and Time Signed: 03/02/24 12:46 EDT\.br\Electronically Co-Signed By: Kiara Coronel\.br\Date and Time Co-Signed: 03/02/24 12:15 EDT Basic Metabolic Panelon 02-05 Anion gap [Moles/Vol] 10 mmol/L Normal 9-15 [facility] Comment on above: Performed By: #### U YASMINE #### [facility] [address] [place] [address] Calcium [Mass/Vol] 8.3 mg/dL Low 8.5-9.9 [facility] Comment on above: Performed By: #### U YASMINE #### [facility] [address] [place] [address] Chloride [Moles/Vol] 102 mmol/L Normal 95-107 [facility] Comment on above: Performed By: #### U YASMINE #### [facility] [address] [place] [address] CO2 [Moles/Vol] 28 mmol/L Normal 20-31 [facility] Comment on above: Performed By: #### U YASMINE #### [facility] [address] [place] [address] Creatinine [Mass/Vol] 0.69 mg/dL Normal 0.50-0.90 [facility] Comment on above: Performed By: #### U YASMINE #### [facility] [address] [place] [address] GFR 86.8 Normal >60 [facility] Comment on above: Result Comment: Kristii atric calculator link https://www.kidney.org/professionals/kdoqi/gfr_calculatorped Effective May 10, 2022 These results are not intended for use in patients <18 years of age. eGFR results are calculated without a race factor using the 2020 CKD-EPI equation. Careful clinical correlation is recommended, particularly when comparing to results calculated using previous equations. The CKD-EPI equation is less accurate in patients with extremes of muscle mass, extra-renal metabolism of creatinine, excessive creatinine ingestion, or following therapy that affects renal tubular secretion. Performed By: #### U YASMINE #### [facility] [address] [place] [address] Glucose [Mass/Vol] 72 mg/dL Normal 70-99 [facility] Comment on above: Performed By: #### U YASMINE #### [facility] [address] [place] [address] Potassium [Moles/Vol] 3.8 mmol/L Normal 3.4-4.9 [facility] Comment on above: Performed By: #### U YASMINE #### [facility] [address] [place] [address] Sodium [Moles/Vol] 140 mmol/L Normal 135-144 [facility] Comment on above: Performed By: #### U YASMINE #### [facility] [address] [place] [address] Urea nitrogen [Mass/Vol] 16 mg/dL Normal 8-23 [facility] Comment on above: Performed By: #### U YASMINE #### [facility] [address] [place] [address] proBNPon 02-20-2024 Natriuretic peptide B (Bld) [Mass/Vol] 187 pg/mL Normal [facility] Comment on above: Result Comment: NT-p ro BNP ACUTE Interpretive Guidelines: Age Cutoff for Heart Failure Less than 50 yrs 450 pg/mL 50-75 yrs 900 pg/mL Greater than 75 yrs 1800 pg/mL NT-pro BNP NON-ACUTE Interpretive Guidelines: Age Reference Range Less than 74 yrs 0-125 pg/mL Greater than 74 yrs 0-450 pg/mL Other possible causes of an elevated NT-proBNP include: cardiac ischemia, acute coronary syndrome, COPD, pneumonia, atrial fibrillation, pulmonary emboli, pulmonary hypertension, pericarditis Reference: Otf Jenkins et al. NT-proBNP testing for diagnosis and short-term prognosis in acute destabilized HF: an international pooled analysis of 1256 patients. Heart Journal. 2006;27:330-337 Performed By: #### U YASMINE #### [facility] [address] [place] [address] Basic Metabolic Panelon 02-05 Anion gap [Moles/Vol] 8 mmol/L Low 9-15 [facility] Comment on above: Performed By: #### M G #### [facility] [address] [place] [address] Calcium [Mass/Vol] 8.1 mg/dL Low 8.5-9.9 [facility] Comment on above: Performed By: #### M G #### [facility] [address] [place] [address] Chloride [Moles/Vol] 101 mmol/L Normal 95-107 [facility] Comment on above: Performed By: #### M G #### [facility] [address] [place] [address] CO2 [Moles/Vol] 27 mmol/L Normal 20-31 [facility] Comment on above: Performed By: #### M G #### [facility] [address] [place] [address] Creatinine [Mass/Vol] 0.61 mg/dL Normal 0.50-0.90 [facility] Comment on above: Performed By: #### M G #### [facility] [address] [place] [address] GFR 89.5 Normal >60 [facility] Comment on above: Result Comment: Noreen atric calculator link https://www.kidney.org/professionals/kdoqi/gfr_calculatorped Effective May 10, 2022 These results are not intended for use in patients <18 years of age. eGFR results are calculated without a race factor using the 2020 CKD-EPI equation. Careful clinical correlation is recommended, particularly when comparing to results calculated using previous equations. The CKD-EPI equation is less accurate in patients with extremes of muscle mass, extra-renal metabolism of creatinine, excessive creatinine ingestion, or following therapy that affects renal tubular secretion. Performed By: #### M G #### [facility] [address] [place] [address] Glucose [Mass/Vol] 98 mg/dL Normal 70-99 [facility] Comment on above: Performed By: #### M G #### [facility] [address] [place] [address] Potassium [Moles/Vol] 4.3 mmol/L Normal 3.4-4.9 [facility] Comment on above: Performed By: #### M G #### [facility] [address] [place] [address] Sodium [Moles/Vol] 136 mmol/L Normal 135-144 [facility] Comment on above: Performed By: #### M G #### [facility] [address] [place] [address] Urea nitrogen [Mass/Vol] 15 mg/dL Normal 8-23 [facility] Comment on above: Performed By: #### M G #### [facility] [address] [place] [address] Culture, Urineon 02-01-2024 Culture, Urine ORDER#: [id number] ORDERED BY: YNES LANDA SOURCE: Urine Clean Catch COLLECTED: 02/01/24 09:30 ANTIBIOTICS AT MAX.: RECEIVED : 02/01/24 10:25 Culture, Urine FINAL 02/02/24 16:19 Cult,Urine: NO GROWTH Performed at [place] [id number] ([phone] [facility] Comment on above: Performed By: #### U YASMINE #### [facility] [address] [place] [address] Urinalysis, reflex to micros copicon 02-01-2024 Bilirubin Ql (U) Negative Normal Negative [facility] Comment on above: Performed By: #### U YASMINE #### [facility] [address] [place] [address] Clarity (U) Clear Normal Clear [facility] Comment on above: Performed By: #### U YASMINE #### [facility] [address] [place] [address] Color (U) Yellow Normal Straw/[place] [facility] Comment on above: Performed By: #### U YASMINE #### [facility] [address] [place] [address] Glucose Ql (U) Negative Normal Negative [facility] Comment on above: Performed By: #### U YASMINE #### [facility] [address] [place] [address] Hemoglobin Ql (U) Negative Normal Negative [facility] Comment on above: Performed By: #### U YASMINE #### [facility] [address] [place] [address] Ketones Ql (U) Negative Normal Negative [facility] Comment on above: Performed By: #### U YASMINE #### [facility] [address] [place] [address] Leukocyte esterase Test strip Ql (U) TRACE Abnormal Negative [facility] Comment on above: Performed By: #### U YASMINE #### [facility] [address] [place] [address] Nitrite Ql (U) Negative Normal Negative [facility] Comment on above: Performed By: #### U YASMINE #### [facility] [address] [place] [address] pH (U) 7.0 [pH] Normal 5.0-9.0 [facility] Comment on above: Performed By: #### U YASMINE #### [facility] [address] [place] [address] Protein Ql (U) Negative Normal Negative [facility] Comment on above: Performed By: #### U YASMINE #### [facility] [address] [place] [address] Specific gravity (U) [Rel density] 1.012 Normal 1.005-1.03 [facility] Comment on above: Performed By: #### U YSAMINE #### [facility] [address] [place] [address] Urobilinogen Qn (U) 1.0 {[place]'U}/dL Normal < 2.0 [facility] Comment on above: Performed By: #### U YASMINE #### [facility] [address] [place] [address] Urine Microscopicon 02-01-20 24 Bacteria LM.HPF (Urine sed) [#/Area] Negative Normal Negative [facility] Comment on above: Performed By: #### M G #### [facility] [address] [place] [address] Urine Epithelial Cells Auto 3-5 Normal 0-5 [facility] Comment on above: Performed By: #### M G #### [facility] [address] [place] [address] Urine Hyaline Casts Auto 1-3 Normal 0-5 [facility] Comment on above: Performed By: #### M G #### [facility] [address] [place] [address] Urine RBC Auto 0-2 Normal 0-5 [facility] Comment on above: Performed By: #### M G #### [facility] [address] [place] [address] Urine WBC Auto 10-20 Abnormal 0-5 [facility] Comment on above: Performed By: #### M G #### [facility] [address] [place] [address] Bacterial susceptibility hernandez [facility] Bacterial susceptibility panel YASMINE (Isol) ORDER#: [id number] ORDERED BY: AYANA KING SOURCE: Urine Clean Catch COLLECTED: 01/12/24 17:08 ANTIBIOTICS AT MAX.: RECEIVED : 01/12/24 17:08 Culture, Urine FINAL 01/14/24 13:21 Performed at [address] [address] ([phone] Klebsiella pneumoniae 10 to 50,000 CFU/ML K. pneumo ANTIBIOTICS YASMINE Interp Ampicillin 16 R Cefazolin <=4 S D1 Ceftriaxone <=0.25 S Confirmatory ESBL NEGATIV S Gentamicin <=1 S Levofloxacin <=0.12 S Nitrofurantoin 64 I Piperacillin/Tazobacta m <=4 S Trimethoprim/Sulfameth oxazole <=20 S -----DRUG COMMENTS D1: Cefazolin sensitivity results can be used to predict the effectiveness of oral cephalosporins (eg. Cephalexin) in uncomplicated Urinary Tract Infections due to E. coli, K. pneumoniae, and P. mirabilis S=SUSCEPTIBLE I=INTERMEDIATE R=RESISTANT Normal [facility] Comment on above: Performed By: #### 5 [id number] #### [facility] [address] [place] [address] CBC With Platelet and Differ entialon 01-12-2024 Basophils (Bld) [#/Vol] 0.1 10*3/uL Normal 0.0-0.2 [facility] Comment on above: Performed By: #### L IPAS #### [facility] [address] [place] [address] Basophils/100 WBC (Bld) 1.0 % Normal [facility] Comment on above: Performed By: #### L IPAS #### [facility] [address] [place] [address] Eosinophils (Bld) [#/Vol] 0.6 10*3/uL Normal 0.0-0.7 [facility] Comment on above: Performed By: #### L IPAS #### [facility] [address] [place] [address] Eosinophils/100 WBC (Bld) 10.2 % Normal [facility] Comment on above: Performed By: #### L IPAS #### [facility] [address] [place] [address] Erythrocyte distribution width (RBC) [Ratio] 13.7 % Normal 11.5-14.5 [facility] Comment on above: Performed By: #### L IPAS #### [facility] [address] [place] [address] Hematocrit (Bld) [Volume fraction] 38.8 % Normal 37.0-47.0 [facility] Comment on above: Performed By: #### L IPAS #### [facility] [address] [place] [address] Hemoglobin (Bld) [Mass/Vol] 12.8 g/dL Normal 12.0-16.0 [facility] Comment on above: Performed By: #### L IPAS #### [facility] [address] [place] [address] Lymphocytes (Bld) [#/Vol] 2.3 10*3/uL Normal 1.0-4.8 [facility] Comment on above: Performed By: #### L IPAS #### [facility] [address] [place] [address] Lymphocytes/100 WBC (Bld) 40.1 % Normal [facility] Comment on above: Performed By: #### L IPAS #### [facility] [address] [place] [address] MCH (RBC) [Entitic mass] 32.6 pg Critically high 27.0-31.3 [facility] Comment on above: Performed By: #### L IPAS #### [facility] [address] [place] [address] MCHC 33.0 % Normal 33.0-37.0 [facility] Comment on above: Performed By: #### L IPAS #### [facility] [address] [place] [address] MCV (RBC) [Entitic vol] 98.7 fL Critically high 79.4-[address] [facility] Comment on above: Performed By: #### L IPAS #### [facility] [address] [place] [address] Monocytes (Bld) [#/Vol] 0.5 10*3/uL Normal 0.2-0.8 [facility] Comment on above: Performed By: #### L IPAS #### [facility] [address] [place] [address] Monocytes/100 WBC (Bld) 9.3 % Normal [facility] Comment on above: Performed By: #### L IPAS #### [facility] [address] [place] [address] Neutrophils (Bld) [#/Vol] 2.3 10*3/uL Normal 1.4-6.5 [facility] Comment on above: Performed By: #### L IPAS #### [facility] [address] [place] [address] Neutrophils/100 WBC (Bld) 39.2 % Normal [facility] Comment on above: Performed By: #### L IPAS #### [facility] [address] [place] [address] Platelets (Bld) [#/Vol] 142 10*3/uL Normal 130-400 [facility] Comment on above: Performed By: #### L IPAS #### [facility] [address] [place] [address] RBC (Bld) [#/Vol] 3.93 10*6/uL Low 4.20-5.40 [facility] Comment on above: Performed By: #### L IPAS #### [facility] [address] [place] [address] WBC (Bld) [#/Vol] 5.8 10*3/uL Normal 4.8-10.8 [facility] Comment on above: Performed By: #### L IPAS #### [facility] [address] [place] [address] CT CERVICAL SPINE WO CONTRAS Ton 01-12-2024 CT CERVICAL SPINE WO CONTRAST EXAMINATION: CT OF THE CERVICAL SPINE WITHOUT CONTRAST 01/12/2024 12:54 pm TECHNIQUE: CT of the cervical spine was performed without the administration of intravenous contrast. Multiplanar reformatted images are provided for review. Automated exposure control, iterative reconstruction, and/or weight based adjustment of the mA/kV was utilized to reduce the radiation dose to as low as reasonably achievable. COMPARISON: 12/21/2023 HISTORY: ORDERING SYSTEM PROVIDED HISTORY: trauma TECHNOLOGIST PROVIDED HISTORY: Reason for exam:->trauma Decision Support Exception - unselect if not a suspected or confirmed emergency medical condition->Emergency Medical Condition (MA) What reading provider will be dictating this exam?->CRC FINDINGS: BONES/ALIGNMENT: There is no acute fracture or traumatic malalignment. DEGENERATIVE CHANGES: Severe multilevel degenerative endplate change and facet arthropathy is again seen, which is stable compared to prior exam. In particular there is 2 mm anterolisthesis of C2 on C3 and C3 on C4 with advanced facet arthropathy, particularly on the left. Disc height loss with prominent posterior disc osteophyte complexes are seen at C4-5, C5-6 and C6-7 with stable mild canal stenosis. SOFT TISSUES: There is no prevertebral soft tissue swelling. IMPRESSION: No acute abnormality of the cervical spine. Stable severe cervical spondylosis, as described above. Interpreted by: Arnold Escobedo MD Signed by: Arnold Escobedo MD 01/12/[address] [facility] CT HEAD WO CONTRASTon 2023 CT HEAD WO CONTRAST EXAMINATION: CT OF THE HEAD WITHOUT CONTRAST 01/12/2024 2:54 pm TECHNIQUE: CT of the head was performed without the administration of intravenous contrast. Automated exposure control, iterative reconstruction, and/or weight based adjustment of the mA/kV was utilized to reduce the radiation dose to as low as reasonably achievable. COMPARISON: December 20 HISTORY: ORDERING SYSTEM PROVIDED HISTORY: head injury TECHNOLOGIST PROVIDED HISTORY: Reason for exam:->head injury Has a code stroke or stroke alert been called?->Yes Decision Support Exception - unselect if not a suspected or confirmed emergency medical condition->Emergency Medical Condition (MA) What reading provider will be dictating this exam?->CRC FINDINGS: BRAIN/VENTRICLES: There is no acute intracranial hemorrhage, mass effect or midline shift. No abnormal extra-axial fluid collection. The trivedi-white differentiation is maintained without evidence of an acute infarct. There is prominence of the ventricles and sulci due to global parenchymal volume loss. There are nonspecific areas of hypoattenuation within the periventricular and subcortical white matter, which likely represent chronic microvascular ischemic change. ORBITS: The visualized portion of the orbits demonstrate no acute abnormality. SINUSES: Mild chronic inflammatory change SOFT TISSUES/SKULL: No acute abnormality of the visualized skull or soft tissues. IMPRESSION: No acute intracranial abnormality. Moderate chronic senescent change Interpreted by: Vince Ace MD Signed by: Vince Ace MD 01/12/[address] [facility] Comprehensive Metabolic Pane ridge 01-12-2024 Albumin [Mass/Vol] 3.2 g/dL Low 3.5-4.6 [facility] Comment on above: Performed By: #### C XURN #### [facility] [address] [place] [address] ALP [Catalytic activity/Vol] 105 U/L Normal 40-130 [facility] Comment on above: Performed By: #### C XURN #### [facility] [address] [place] [address] ALT [Catalytic activity/Vol] 19 U/L Normal 0-33 [facility] Comment on above: Performed By: #### C XURN #### [facility] [address] [place] [address] Anion gap [Moles/Vol] 7 mmol/L Low 9-15 [facility] Comment on above: Performed By: #### C JENNIFERRN #### [facility] [address] [place] [address] AST [Catalytic activity/Vol] 33 U/L Normal 0-35 [facility] Comment on above: Performed By: #### C JESUSN #### [facility] [address] [place] [address] Bilirubin [Mass/Vol] 0.6 mg/dL Normal 0.2-0.7 [facility] Comment on above: Performed By: #### C GAYLE #### [facility] [address] [place] [address] Calcium [Mass/Vol] 8.3 mg/dL Low 8.5-9.9 [facility] Comment on above: Performed By: #### C GAYLE #### [facility] [address] [place] [address] Chloride [Moles/Vol] 102 mmol/L Normal 95-107 [facility] Comment on above: Performed By: #### C JESUSN #### [facility] [address] [place] [address] CO2 [Moles/Vol] 28 mmol/L Normal 20-31 [facility] Comment on above: Performed By: #### C JESUSN #### [facility] [address] [place] [address] Creatinine [Mass/Vol] 0.61 mg/dL Normal 0.50-0.90 [facility] Comment on above: Performed By: #### C XURN #### [facility] [address] [place] [address] GFR 89.5 Normal >60 [facility] Comment on above: Result Comment: Noreen atric calculator link https://www.kidney.org/professionals/kdoqi/gfr_calculatorped Effective May 10, 2022 These results are not intended for use in patients <18 years of age. eGFR results are calculated without a race factor using the 2020 CKD-EPI equation. Careful clinical correlation is recommended, particularly when comparing to results calculated using previous equations. The CKD-EPI equation is less accurate in patients with extremes of muscle mass, extra-renal metabolism of creatinine, excessive creatinine ingestion, or following therapy that affects renal tubular secretion. Performed By: #### C XURN #### [facility] [address] [place] [address] Globulin (S) [Mass/Vol] 4.1 g/dL Critically high 2.3-3.5 [facility] Comment on above: Performed By: #### C XURN #### [facility] [address] [place] [address] Glucose [Mass/Vol] 100 mg/dL Critically high 70-99 [facility] Comment on above: Performed By: #### C XURN #### [facility] [address] [place] [address] Potassium [Moles/Vol] 4.7 mmol/L Normal 3.4-4.9 [facility] Comment on above: Performed By: #### C XURN #### [facility] [address] [place] [address] Protein [Mass/Vol] 7.3 g/dL Normal 6.3-8.0 [facility] Comment on above: Performed By: #### C XURN #### [facility] [address] [place] [address] Sodium [Moles/Vol] 137 mmol/L Normal 135-144 [facility] Comment on above: Performed By: #### C XURN #### [facility] [address] [place] [address] Urea nitrogen [Mass/Vol] 12 mg/dL Normal 8-23 [facility] Comment on above: Performed By: #### C XURN #### [facility] [address] [place] [address] Culture, Urineon 01-12-2024 Culture, Urine ORDER#: [id number] ORDERED BY: AYANA KING SOURCE: Urine Clean Catch COLLECTED: 01/12/24 17:08 ANTIBIOTICS AT MAX.: RECEIVED : 01/12/24 17:08 Culture, Urine PRELIM 01/13/24 19:35 Cult,Urine: GRAM NEGATIVE RODS Cult,Urine: 10 to 50,000 CFU/ML Performed at [address] [facility] Comment on above: Performed By: #### C XURN #### [facility] [address] [place] [address] High Sensitivity Troponin To n 01-12-2024 High Sensitivity Troponin T 11 ng/L Normal 0-19 [facility] Comment on above: Result Comment: High Sensitivity Troponin values cannot be compared with other Troponin methodologies. Performed By: #### T RP5 #### [facility] [address] [place] [address] High Sensitivity Troponin T 8 ng/L Normal 0-19 [facility] Comment on above: Result Comment: High Sensitivity Troponin values cannot be compared with other Troponin methodologies. Performed By: #### T RP5 #### [facility] [address] [place] [address] Lipaseon 01-12-2024 Lipase [Catalytic activity/Vol] 50 U/L Normal 12-95 [facility] Comment on above: Performed By: #### L IPAS #### [facility] [address] [place] [address] Urinalysis, reflex to cultur adri 01-12-2024 Urine Reflexed to Culture Yes Normal [facility] Comment on above: Performed By: #### C XURN #### [facility] [address] [place] [address] Bilirubin Ql (U) Negative Normal Negative [facility] Comment on above: Performed By: #### C XURN #### [facility] [address] [place] [address] Clarity (U) Clear Normal Clear [facility] Comment on above: Performed By: #### Sherita ARAUJO #### [facility] [address] [place] [address] Color (U) Yellow Normal Straw/[place] [facility] Comment on above: Performed By: #### Sherita ARAUJO #### [facility] [address] [place] [address] Glucose Ql (U) Negative Normal Negative [facility] Comment on above: Performed By: #### Sherita ARAUJO #### [facility] [address] [place] [address] Hemoglobin Ql (U) MODERATE Abnormal Negative [facility] Comment on above: Performed By: #### C GAYLE #### [facility] [address] [place] [address] Ketones Ql (U) Negative Normal Negative [facility] Comment on above: Performed By: #### Sherita ARAUJO #### [facility] [address] [place] [address] Leukocyte esterase Test strip Ql (U) MODERATE Abnormal Negative [facility] Comment on above: Performed By: #### C GAYLE #### [facility] [address] [place] [address] Nitrite Ql (U) Negative Normal Negative [facility] Comment on above: Performed By: #### Sherita ARAUJO #### [facility] [address] [place] [address] pH (U) 7.0 [pH] Normal 5.0-9.0 [facility] Comment on above: Performed By: #### Sherita ARAUJO #### [facility] [address] [place] [address] Protein Ql (U) Negative Normal Negative [facility] Comment on above: Performed By: #### Sherita ARAUJO #### [facility] [address] [place] [address] Specific gravity (U) [Rel density] 1.008 Normal 1.005-1.03 [facility] Comment on above: Performed By: #### C XURN #### [facility] [address] [place] [address] Urobilinogen Qn (U) 1.0 {Cuba'U}/dL Normal < 2.0 [facility] Comment on above: Performed By: #### C XURN #### [facility] [address] [place] [address] Urine Microscopicon 01-12-20 24 Urine Bacteria RARE Abnormal Negative [facility] Comment on above: Performed By: #### U YASMINE #### [facility] [address] [place] [address] Urine Yeast Present Abnormal None Seen [facility] Comment on above: Performed By: #### U YASMINE #### [facility] [address] [place] [address] Urine Epithelial Cells Auto 0-2 Normal 0-5 [facility] Comment on above: Performed By: #### U YASMINE #### [facility] [address] [place] [address] Urine Hyaline Casts Auto 0-1 Normal 0-5 [facility] Comment on above: Performed By: #### U YASMINE #### [facility] [address] [place] [address] Urine RBC Auto 50-100 Abnormal 0-5 [facility] Comment on above: Performed By: #### U YASMINE #### [facility] [address] [place] [address] Urine WBC Auto 50-100 Abnormal 0-5 [facility] Comment on above: Performed By: #### U YASMINE #### [facility] [address] [place] [address] XR CHEST PORTABLEon 01-12-20 24 XR CHEST PORTABLE EXAMINATION: ONE XRAY VIEW OF THE CHEST 01/12/2024 3:04 pm COMPARISON: October 21, 2023 HISTORY: ORDERING SYSTEM PROVIDED HISTORY: trauma TECHNOLOGIST PROVIDED HISTORY: Reason for exam:->trauma What reading provider will be dictating this exam?->CRC FINDINGS: The heart is markedly enlarged. Pulmonary vessels are prominent. No airspace consolidation. No pneumothorax or pleural effusion. IMPRESSION: Cardiomegaly with pulmonary vascular congestion. Interpreted by: Fahad Dozier MD Signed by: Fahad Dozier MD 01/12/[address] [facility] XR ELBOW RIGHT (MIN 3 VIEWS) on 01-12-2024 XR ELBOW RIGHT (MIN 3 VIEWS) EXAMINATION: THREE XRAY VIEWS OF THE RIGHT ELBOW 01/12/2024 3:04 pm COMPARISON: None. HISTORY: ORDERING SYSTEM PROVIDED HISTORY: trauma TECHNOLOGIST PROVIDED HISTORY: Reason for exam:->trauma What reading provider will be dictating this exam?->CRC FINDINGS: There is no elbow effusion. There is no acute fracture or dislocation. Alignment is normal. IMPRESSION: No acute abnormality. Interpreted by: Fahad Dozier MD Signed by: Fahad Dozier MD 01/12/[address] [facility] CT CERVICAL SPINE WO CONTRAS Ton 12-21-2023 CT CERVICAL SPINE WO CONTRAST EXAMINATION: CT OF THE CERVICAL SPINE WITHOUT CONTRAST 12/21/2023 12:28 pm TECHNIQUE: CT of the cervical spine was performed without the administration of intravenous contrast. Multiplanar reformatted images are provided for review. Automated exposure control, iterative reconstruction, and/or weight based adjustment of the mA/kV was utilized to reduce the radiation dose to as low as reasonably achievable. COMPARISON: None. HISTORY: ORDERING SYSTEM PROVIDED HISTORY: fall TECHNOLOGIST PROVIDED HISTORY: Reason for exam:->fall Decision Support Exception - unselect if not a suspected or confirmed emergency medical condition->Emergency Medical Condition ([place]) What reading provider will be dictating this exam?->CRC FINDINGS: The ring of C1 is intact as is the dense. There is no compression fracture of the cervical spine. No jumped or perched facet is noted. Multilevel degenerative disc and degenerative joint disease is noted. The prevertebral soft tissues are unremarkable. The airway is widely patent. Images through the lung apices are negative for a pneumothorax. IMPRESSION: 1. There is no acute compression fracture or subluxation of the cervical spine. 2. Multilevel degenerative disc and degenerative joint disease. Interpreted by: Ernst eHrnandez MD Signed by: Ernst Hernandez MD 12/21/[address] [facility] CT HEAD WO CONTRASTon 2023 CT HEAD WO CONTRAST EXAMINATION: CT OF THE HEAD WITHOUT CONTRAST 12/21/2023 12:28 pm TECHNIQUE: CT of the head was performed without the administration of intravenous contrast. Automated exposure control, iterative reconstruction, and/or weight based adjustment of the mA/kV was utilized to reduce the radiation dose to as low as reasonably achievable. COMPARISON: None. HISTORY: ORDERING SYSTEM PROVIDED HISTORY: fall TECHNOLOGIST PROVIDED HISTORY: Reason for exam:->fall Has a code stroke or stroke alert been called?->No Decision Support Exception - unselect if not a suspected or confirmed emergency medical condition->Emergency Medical Condition ([place]) What reading provider will be dictating this exam?->CRC FINDINGS: BRAIN/VENTRICLES: There is no acute intracranial hemorrhage, mass effect or midline shift. No abnormal extra-axial fluid collection. The trivedi-white differentiation is maintained without evidence of an acute infarct. There is no evidence of hydrocephalus. The ventricles, cisterns and sulci are prominent consistent with atrophy. There is decreased attenuation within the periventricular white matter consistent with periventricular microvascular ischemic disease ORBITS: The visualized portion of the orbits demonstrate no acute abnormality. SINUSES: The visualized paranasal sinuses and mastoid air cells demonstrate no acute abnormality. SOFT TISSUES/SKULL: There is a small right supraorbital soft tissue contusion.. IMPRESSION: 1. There is no acute intracranial abnormality. Specifically, there is no intracranial hemorrhage. 2. Atrophy and periventricular microvascular ischemic disease, 3. Small right supraorbital soft tissue contusion. Interpreted by: Ernst Hernandez MD Signed by: Ernst Hernandez MD 12/21/[address] [facility] Bacterial susceptibility hernandez el by MICon 12-16-2023 Bacterial susceptibility panel YASMINE (Isol) ORDER#: [id number] ORDERED BY: YNES LANDA SOURCE: Urine Clean Catch COLLECTED: 12/16/23 12:30 ANTIBIOTICS AT MAX.: RECEIVED : 12/16/23 13:50 Culture, Urine FINAL 12/18/23 12:22 [place] [address] Escherichia coli >100,000 CFU/ML E. coli ANTIBIOTICS YASMINE Interp Ampicillin <=2 S Cefazolin <=4 S D1 Ceftriaxone <=0.25 S Confirmatory ESBL NEGATIV S Gentamicin <=1 S Levofloxacin <=0.12 S Nitrofurantoin <=16 S Piperacillin/Tazobacta m <=4 S Trimethoprim/Sulfameth oxazole <=20 S -----DRUG COMMENTS D1: Cefazolin sensitivity results can be used to predict the effectiveness of oral cephalosporins (eg. Cephalexin) in uncomplicated Urinary Tract Infections due to E. coli, K. pneumoniae, and P. mirabilis S=SUSCEPTIBLE I=INTERMEDIATE R=RESISTANT Normal [facility] Comment on above: Performed By: #### U YASMINE #### [facility] [address] [place] [address] Basic Metabolic Panelon 05-1 0-4 Anion gap [Moles/Vol] 9 mmol/L Normal 9-15 [facility] Comment on above: Performed By: #### B MP #### [facility] [address] [place] [address] Calcium [Mass/Vol] 8.7 mg/dL Normal 8.5-9.9 [facility] Comment on above: Performed By: #### B MP #### [facility] [address] [place] [address] Chloride [Moles/Vol] 99 mmol/L Normal 95-107 [facility] Comment on above: Performed By: #### B MP #### [facility] [address] [place] [address] CO2 [Moles/Vol] 26 mmol/L Normal 20-31 [facility] Comment on above: Performed By: #### B MP #### [facility] [address] [place] [address] Creatinine [Mass/Vol] 0.59 mg/dL Normal 0.50-0.90 [facility] Comment on above: Performed By: #### B MP #### [facility] [address] [place] [address] GFR >90.0 Normal >60 [facility] Comment on above: Result Comment: Noreen atric calculator link https://www.kidney.org/professionals/kdoqi/gfr_calculatorped Effective May 10, 2022 These results are not intended for use in patients <18 years of age. eGFR results are calculated without a race factor using the 2020 CKD-EPI equation. Careful clinical correlation is recommended, particularly when comparing to results calculated using previous equations. The CKD-EPI equation is less accurate in patients with extremes of muscle mass, extra-renal metabolism of creatinine, excessive creatinine ingestion, or following therapy that affects renal tubular secretion. Performed By: #### B MP #### [facility] [address] [place] [address] Glucose [Mass/Vol] 125 mg/dL Critically high 70-99 [facility] Comment on above: Performed By: #### B MP #### [facility] [address] [place] [address] Potassium [Moles/Vol] 4.2 mmol/L Normal 3.4-4.9 [facility] Comment on above: Performed By: #### B MP #### [facility] [address] [place] [address] Sodium [Moles/Vol] 134 mmol/L Low 135-144 [facility] Comment on above: Performed By: #### B MP #### [facility] [address] [place] [address] Urea nitrogen [Mass/Vol] 11 mg/dL Normal 8-23 [facility] Comment on above: Performed By: #### B MP #### [facility] [address] [place] [address] Culture, Urineon 12-16-2023 Culture, Urine ORDER#: [id number] ORDERED BY: YNES LANDA SOURCE: Urine Clean Catch COLLECTED: 12/16/23 12:30 ANTIBIOTICS AT MAX.: RECEIVED : 12/16/23 13:50 Culture, Urine PRELIM 12/17/23 19:00 Performed at [address] [address] ([phone] Escherichia coli >100,000 CFU/ML Normal [facility] Comment on above: Performed By: #### U YASMINE #### [facility] [address] [place] [address] Urinalysis, reflex to micros copicon 12-16-2023 Bilirubin Ql (U) Negative Normal Negative [facility] Comment on above: Performed By: #### M G #### [facility] [address] [place] [address] Clarity (U) Clear Normal Clear [facility] Comment on above: Performed By: #### M G #### [facility] [address] [place] [address] Color (U) Yellow Normal St[place] [facility] Comment on above: Performed By: #### M G #### [facility] [address] [place] [address] Glucose Ql (U) Negative Normal Negative [facility] Comment on above: Performed By: #### M G #### [facility] [address] [place] [address] Hemoglobin Ql (U) Negative Normal Negative [facility] Comment on above: Performed By: #### M G #### [facility] [address] [place] [address] Ketones Ql (U) Negative Normal Negative [facility] Comment on above: Performed By: #### M G #### [facility] [address] [place] [address] Leukocyte esterase Test strip Ql (U) MODERATE Abnormal Negative [facility] Comment on above: Performed By: #### M G #### [facility] [address] [place] [address] Nitrite Ql (U) Negative Normal Negative [facility] Comment on above: Performed By: #### M G #### [facility] [address] [place] [address] pH (U) 7.0 [pH] Normal 5.0-9.0 [facility] Comment on above: Performed By: #### M G #### [facility] [address] [place] [address] Protein Ql (U) Negative Normal Negative [facility] Comment on above: Performed By: #### M G #### [facility] [address] [place] [address] Specific gravity (U) [Rel density] 1.014 Normal 1.005-1.03 [facility] Comment on above: Performed By: #### M G #### [facility] [address] [place] [address] Urobilinogen Qn (U) 1.0 {Cuba'U}/dL Normal < 2.0 [facility] Comment on above: Performed By: #### M G #### [facility] [address] [place] [address] Urine Microscopicon 05--20 24 Urine Bacteria FEW Abnormal Negative [facility] Comment on above: Performed By: #### U YASMINE #### [facility] [address] [place] [address] Urine Epithelial Cells Auto 0-2 Normal 0-5 [facility] Comment on above: Performed By: #### U YASMINE #### [facility] [address] [place] [address] Urine Hyaline Casts Auto 1-3 Normal 0-5 [facility] Comment on above: Performed By: #### U YASMINE #### [facility] [address] [place] [address] Urine RBC Auto 6-10 Abnormal 0-5 [facility] Comment on above: Performed By: #### U YASMINE #### [facility] [address] [place] [address] Urine WBC Auto >100 Critically high 0-5 [facility] Comment on above: Performed By: #### U YASMINE #### [facility] [address] [place] [address] CBC With Platelet No Differe ntialon 12-02-2023 Erythrocyte distribution width (RBC) [Ratio] 13.6 % Normal 11.5-14.5 [facility] Comment on above: Performed By: #### C BCND #### [facility] [address] [place] [address] Hematocrit (Bld) [Volume fraction] 38.3 % Normal 37.0-47.0 [facility] Comment on above: Performed By: #### C BCND #### [facility] [address] [place] [address] Hemoglobin (Bld) [Mass/Vol] 12.7 g/dL Normal 12.0-16.0 [facility] Comment on above: Performed By: #### C BCND #### [facility] [address] [place] [address] MCH (RBC) [Entitic mass] 32.1 pg Critically high 27.0-31.3 [facility] Comment on above: Performed By: #### C BCND #### [facility] [address] [place] [address] MCHC 33.2 % Normal 33.0-37.0 [facility] Comment on above: Performed By: #### C BCND #### [facility] [address] [place] [address] MCV (RBC) [Entitic vol] 96.7 fL Critically high 79.4-[address] [facility] Comment on above: Performed By: #### C BCND #### [facility] [address] [place] [address] Platelets (Bld) [#/Vol] 149 10*3/uL Normal 130-400 [facility] Comment on above: Performed By: #### C BCND #### [facility] [address] [place] [address] RBC (Bld) [#/Vol] 3.96 10*6/uL Low 4.20-5.40 [facility] Comment on above: Performed By: #### C BCND #### [facility] [address] [place] [address] WBC (Bld) [#/Vol] 5.2 10*3/uL Normal 4.8-10.8 [facility] Comment on above: Performed By: #### C BCND #### [facility] [address] [place] [address] Culture, Urineon 11-28-2023 Culture, Urine ORDER#: [id number] ORDERED BY: YNES LANDA SOURCE: Urine Clean Catch COLLECTED: 11/28/23 14:19 ANTIBIOTICS AT MAX.: RECEIVED : 11/28/23 16:28 Culture, Urine FINAL 11/29/23 18:57 Cult,Urine: NO SIGNIFICANT GROWTH Performed at [address] [facility] Comment on above: Performed By: #### C XURN #### [facility] [address] [place] [address] Urinalysis, reflex to micros copicon 11-28-2023 Bilirubin Ql (U) Negative Normal Negative [facility] Comment on above: Performed By: #### U YASMINE #### [facility] [address] [place] [address] Clarity (U) Clear Normal Clear [facility] Comment on above: Performed By: #### U YASMINE #### [facility] [address] [place] [address] Color (U) Yellow Normal Straw/[place] [facility] Comment on above: Performed By: #### U YASMINE #### [facility] [address] [place] [address] Glucose Ql (U) Negative Normal Negative [facility] Comment on above: Performed By: #### U YASMINE #### [facility] [address] [place] [address] Hemoglobin Ql (U) Negative Normal Negative [facility] Comment on above: Performed By: #### U YASMINE #### [facility] [address] [place] [address] Ketones Ql (U) Negative Normal Negative [facility] Comment on above: Performed By: #### U YASMINE #### [facility] [address] [place] [address] Leukocyte esterase Test strip Ql (U) Negative Normal Negative [facility] Comment on above: Performed By: #### U YASMINE #### [facility] [address] [place] [address] Nitrite Ql (U) Negative Normal Negative [facility] Comment on above: Performed By: #### U YASMINE #### [facility] [address] [place] [address] pH (U) 7.0 [pH] Normal 5.0-9.0 [facility] Comment on above: Performed By: #### U YASMINE #### [facility] [address] [place] [address] Protein Ql (U) Negative Normal Negative [facility] Comment on above: Performed By: #### U YASMINE #### [facility] [address] [place] [address] Specific gravity (U) [Rel density] 1.007 Normal 1.005-1.03 [facility] Comment on above: Performed By: #### U YASMINE #### [facility] [address] [place] [address] Urobilinogen Qn (U) 1.0 {Cuba'U}/dL Normal < 2.0 [facility] Comment on above: Performed By: #### U YASMINE #### [facility] [address] [place] [address] Alanine aminotransferase [En zymatic activity/volume] in Serum or PlasmaOrdered By: Carline Jackson on 11-23-2023 ALT [Catalytic activity/Vol] 20 U/L 7-52 [facility] Albumin [Mass/volume] in Ser um or Plasma by Bromocresol green (BCG) dye binding methoOrdered By: Carline Jackson on 11-23-2023 Albumin BCG dye [Mass/Vol] 3.2 g/dL 3.5-5.7 [facility] Alkaline phosphatase [Enzyma tic activity/volume] in Serum or PlasmaOrdered By: Carline Jackson on 11-23-2023 ALP [Catalytic activity/Vol] 75 U/L 34-104 [facility] Aspartate aminotransferase [ Enzymatic activity/volume] in Serum or PlasmaOrdered By: Carline Jackson on 11-23-2023 AST [Catalytic activity/Vol] 40 U/L 13-39 [facility] Basophils Auto (Bld) [#/Vol] Ordered By: Carline Jackson on 11-23-2023 Basophils (Bld) [#/Vol] 0.1 10*3/uL 0.0-0.2 [facility] Basophils/100 WBC Auto (Bld) Ordered By: Carline Jackson on 11-23-2023 Basophils/100 WBC (Bld) 1.1 % . [facility] Bilirubin.total [Mass/volume ] in Serum or PlasmaOrdered By: Carline Jackson on 11-23-2023 Bilirubin [Mass/Vol] 0.9 mg/dL 0.3-1.0 [facility] Calcium [Mass/volume] in Ser um or PlasmaOrdered By: Carline Jackson on 11-23-2023 Calcium [Mass/Vol] 8.7 mg/dL 8.6-10.3 [facility] Carbon dioxide, total [Moles /volume] in Serum or PlasmaOrdered By: Carline Jackson on 11-23-2023 CO2 [Moles/Vol] 27.2 mmol/L 21.0-31.0 [facility] Chloride [Moles/volume] in S marianna or PlasmaOrdered By: Carline Jackson on 11-23-2023 Chloride [Moles/Vol] 104 mmol/L 98-107 [facility] Creatinine [Mass/volume] in Serum or PlasmaOrdered By: Carline Jackson on 11-23-2023 Creatinine [Mass/Vol] 0.79 mg/dL 0.60-1.20 [facility] Eosinophils Auto (Bld) [#/Vo l]Ordered By: Carline Jackson on 11-23-2023 Eosinophils (Bld) [#/Vol] 0.5 10*3/uL 0.0-0.45 [facility] Eosinophils/100 WBC Auto (Bl d)Ordered By: Carline Jackson on 11-23-2023 Eosinophils/100 WBC (Bld) 9.7 % . [facility] Erythrocyte distribution wid th Auto (RBC) [Ratio]Ordered By: Carline Jackson on 11-23-2023 Erythrocyte distribution width (RBC) [Ratio] 13.9 % 11.9-15.3 [facility] Erythrocyte sedimentation ra te by Photometric methodOrdered By: Carline Jackson on 11-23-2023 ESR Photometric method (Bld) [Velocity] 30 mm/hr 0-29 [facility] Globulin Calc (S) [Mass/Vol] Ordered By: Carline Jackson on 11-23-2023 Globulin (S) [Mass/Vol] 4.1 g/dL [facility] Glucose [Mass/volume] in Ser um or PlasmaOrdered By: Carline Jackson on 11-23-2023 Glucose [Mass/Vol] 94 mg/dL 70-100 [facility] Comment on above: ADA recommended refe rence rangeRandom Glucose Reference Range is dependent on time and content of last meal. Glucose of more than 200 mg/dL in a nonstressed, ambulatory subject supports the diagnosis of Diabetes Mellitus. Hematocrit Auto (Bld) [Volum e fraction]Ordered By: Carline Jackson on 11-23-2023 Hematocrit (Bld) [Volume fraction] 37.4 % 34.0-46.4 [facility] Hemoglobin [Mass/volume] in BloodOrdered By: Carline Jackson on 11-23-2023 Hemoglobin (Bld) [Mass/Vol] 12.6 g/dL 11.8-15.4 [facility] Leukocytes [#/volume] correc kala for nucleated erythrocytes in Blood by Automated counOrdered By: Carline Jackson on 11-23-2023 WBC corrected for nucl RBC Auto (Bld) [#/Vol] 5.3 10*3/uL 3.8-11.6 [facility] Lymphocytes Auto (Bld) [#/Vo l]Ordered By: Carline Jackson on 11-23-2023 Lymphocytes (Bld) [#/Vol] 2.4 10*3/uL 1.00-4.8 [facility] Lymphocytes/100 WBC Auto (Bl d)Ordered By: Carline Jackson on 11-23-2023 Lymphocytes/100 WBC (Bld) 45.9 % . [facility] MCH Auto (RBC) [Entitic mass ]Ordered By: Carline Jackson on 11-23-2023 MCH (RBC) [Entitic mass] 32.6 pg 24.7-34.3 [facility] MCHC Auto (RBC) [Mass/Vol]Or dered By: Carline Jackson on 11-23-2023 MCHC (RBC) [Mass/Vol] 33.8 g/dL 32.0-35.0 [facility] MCV Auto (RBC) [Entitic vol] Ordered By: Carline Jackson on 11-23-2023 MCV (RBC) [Entitic vol] 96.4 fL 80-100 [facility] Monocytes Auto (Bld) [#/Vol] Ordered By: Carline Jackson on 11-23-2023 Monocytes (Bld) [#/Vol] 0.5 10*3/uL 0.0-0.8 [facility] Monocytes/100 WBC Auto (Bld) Ordered By: Carline Jackson on 11-23-2023 Monocytes/100 WBC (Bld) 9.1 % . [facility] Neutrophils Auto (Bld) [#/Vo l]Ordered By: Carline Jackson on 11-23-2023 Neutrophils (Bld) [#/Vol] 1.8 10*3/uL 1.8-7.7 [facility] Neutrophils/100 WBC Auto (Bl d)Ordered By: Carline Jackson on 11-23-2023 Neutrophils/100 WBC (Bld) 34.2 % . [facility] No Panel InformationOrdered By: Carline Jackson on 11-23-2023 Estimated GFR (CKD-EPI) > 60.0 mL/Min [facility] Creatinine Clearance (Chem N/A [facility] Nucleated erythrocytes [Pres ence] in Blood by Automated countOrdered By: Carline Jackson on 11-23-2023 Nucleated RBC Auto Ql (Bld) 0.2 /100{WBC} 0-0.5 [facility] Platelet mean volume Auto (B ld) [Entitic vol]Ordered By: Carline Jackson on 11-23-2023 Platelet mean volume (Bld) [Entitic vol] 8.6 fL 6.3-10.7 [facility] Platelets Auto (Bld) [#/Vol] Ordered By: Carline Jackson on 11-23-2023 Platelets (Bld) [#/Vol] 165 10*3/uL 150-450 [facility] Potassium [Moles/volume] in Serum or PlasmaOrdered By: Calrine Jackson on 11-23-2023 Potassium [Moles/Vol] 4.4 mmol/L 3.5-5.1 [facility] Protein [Mass/volume] in Ser um or PlasmaOrdered By: Carline Jackson on 11-23-2023 Protein [Mass/Vol] 7.3 g/dL 6.4-8.9 [facility] RBC Auto (Bld) [#/Vol]Ordere d By: Carline Jackson on 11-23-2023 RBC (Bld) [#/Vol] 3.87 10*6/uL 3.60-5.00 [facility] Serum or plasma albumin/glob ulin mass ratioOrdered By: Carline Jackson on 11-23-2023 Albumin/Globulin [Mass ratio] 0.8 {ratio} [facility] Serum or plasma anion gap de terminationOrdered By: Carline Jackson on 11-23-2023 Anion gap [Moles/Vol] 7.2 mmol/L 6.0-15.0 [facility] Sodium [Moles/volume] in Ser um or PlasmaOrdered By: Carline Jackson on 11-23-2023 Sodium [Moles/Vol] 134 mmol/L 136-145 [facility] Urea nitrogen [Mass/volume] in Serum or PlasmaOrdered By: Carline Jackson on 11-23-2023 Urea nitrogen [Mass/Vol] 16 mg/dL 7-25 [facility] WBC Auto (Bld) [#/Vol]Ordere d By: Carline Jackson on 11-23-2023 WBC (Bld) [#/Vol] 5.3 10*3/uL 3.8-11.6 [facility] Urinalysis, reflex to micros copicon 11-07-2023 Bilirubin Ql (U) Negative Normal Negative [facility] Comment on above: Performed By: #### U A #### [facility] [address] [place] [address] Clarity (U) CLOUDY Abnormal Clear [facility] Comment on above: Performed By: #### U A #### [facility] [address] [place] [address] Color (U) Yellow Normal Straw/[place] [facility] Comment on above: Performed By: #### U A #### [facility] [address] [place] [address] Glucose Ql (U) Negative Normal Negative [facility] Comment on above: Performed By: #### U A #### [facility] [address] [place] [address] Hemoglobin Ql (U) TRACE Abnormal Negative [facility] Comment on above: Performed By: #### U A #### [facility] [address] [place] [address] Ketones Ql (U) Negative Normal Negative [facility] Comment on above: Performed By: #### U A #### [facility] [address] [place] [address] Leukocyte esterase Test strip Ql (U) LARGE Abnormal Negative [facility] Comment on above: Performed By: #### U A #### [facility] [address] [place] [address] Nitrite Ql (U) Positive Abnormal Negative [facility] Comment on above: Performed By: #### U A #### [facility] [address] [place] [address] pH (U) 7.5 [pH] Normal 5.0-9.0 [facility] Comment on above: Performed By: #### U A #### [facility] [address] [place] [address] Protein Ql (U) TRACE Abnormal Negative [facility] Comment on above: Performed By: #### U A #### [facility] [address] [place] [address] Specific gravity (U) [Rel density] 1.014 Normal 1.005-1.03 [facility] Comment on above: Performed By: #### U A #### [facility] [address] [place] [address] Urobilinogen Qn (U) 4.0 {Cuba'U}/dL Abnormal < 2.0 [facility] Comment on above: Performed By: #### U A #### [facility] [address] [facility] [address] Urine Microscopicon 11-07-19 24 Epithelial cells LM Ql (Urine sed) 0-[address] [facility] Comment on above: Performed By: #### U YASMINE #### [facility] [address] [facility] [address] Urine Bacteria MODERATE Abnormal Negative [facility] Comment on above: Performed By: #### U YASMINE #### [facility] [address] [facility] [address] Urine RBC 0-2 Normal 0-2 [facility] Comment on above: Performed By: #### U YASMINE #### [facility] [address] [facility] [address] WBC (U) [#/Vol] /uL Abnormal 0-5 [facility] Comment on above: Performed By: #### U YASMINE #### [facility] [address] [facility] [address] Bacterial susceptibility hernandez el YASMINE (Isol)on 11-06-2023 Bacterial susceptibility panel Disk diffusion (KB) (Isol) ORDER#: [id number] ORDERED BY: YNES LANDA SOURCE: Urine Voided COLLECTED: 11/06/23 06:00 ANTIBIOTICS AT MAX.: RECEIVED : 11/07/23 07:50 Culture, Urine FINAL 11/09/23 08:13 Performed at [facility] [address] [place] [phone] ([phone] Enterobacter cloacae complex >100,000 CFU/ML E. cloacae complex ANTIBIOTICS YASMINE Interp KB ZoneKB Interp Ceftriaxone S Gentamicin <=1 S Levofloxacin <=0.12 S Nitrofurantoin 64 I Piperacillin/Tazobacta m <=4 S Trimethoprim/Sulfameth oxazole <=20 S S=SUSCEPTIBLE I=INTERMEDIATE R=RESISTANT Normal [facility] Comment on above: Performed By: #### 5 0545-3 #### [facility] [address] [place] [address] Bacterial susceptibility hernandez el by YASMINEon 11-06-2023 Bacterial susceptibility panel YASMINE (Isol) ORDER#: [id number] ORDERED BY: YNES LANDA SOURCE: Urine Voided COLLECTED: 11/06/23 06:00 ANTIBIOTICS AT MAX.: RECEIVED : 11/07/23 07:50 Culture, Urine PRELIM 11/08/23 23:23 Performed at [place] [address] [place] [address] ([phone] Enterobacter cloacae complex >100,000 CFU/ML E. cloacae complex ANTIBIOTICS YASMINE Interp Gentamicin <=1 S Levofloxacin <=0.12 S Nitrofurantoin 64 I Piperacillin/Tazobacta m <=4 S Trimethoprim/Sulfameth oxazole <=20 S S=SUSCEPTIBLE I=INTERMEDIATE R=RESISTANT [facility] Comment on above: Performed By: #### 5 0545-3 #### [facility] [address] [place] [address] Culture, Urineon 11-06-2023 Culture, Urine ORDER#: [id number] ORDERED BY: YNES LANDA SOURCE: Urine Voided COLLECTED: 11/06/23 06:00 ANTIBIOTICS AT MAX.: RECEIVED : 11/07/23 07:50 Culture, Urine PRELIM 11/08/23 10:00 Performed at [address], [place] [id number] ([phone] Enterobacter cloacae complex >100,000 CFU/ML [facility] Comment on above: Performed By: #### U YASMINE #### [facility] [address] [place] [id number] Alcoholon 10-21-2023 Blood Alcohol Concentration Not indicated Normal [facility] Comment on above: Performed By: #### Sherita LEEN #### [facility] [address] [place] [id number] Ethanol [Mass/Vol] mg/dL Normal [facility] Comment on above: Performed By: #### C GAYLE #### [facility] [address] [place] [address] Bacterial susceptibility hernandez el by MICon 10-21-2023 Bacterial susceptibility panel YASMINE (Isol) ORDER#: [id number] ORDERED BY: AYANA KING SOURCE: Urine Clean Catch COLLECTED: 10/21/23 18:35 ANTIBIOTICS AT MAX.: RECEIVED : 10/21/23 18:35 Culture, Urine FINAL 10/23/23 20:41 Performed at [address] [address] ([phone] Escherichia coli >100,000 CFU/ML E. coli ANTIBIOTICS YASMINE Interp Ampicillin 8 S Cefazolin <=4 S D1 Ceftriaxone <=0.25 S Confirmatory ESBL NEGATIV S Gentamicin <=1 S Levofloxacin <=0.12 S Nitrofurantoin <=16 S Piperacillin/Tazobacta m <=4 S Trimethoprim/Sulfameth oxazole <=20 S -----DRUG COMMENTS D1: Cefazolin sensitivity results can be used to predict the effectiveness of oral cephalosporins (eg. Cephalexin) in uncomplicated Urinary Tract Infections due to E. coli, K. pneumoniae, and P. mirabilis S=SUSCEPTIBLE I=INTERMEDIATE R=RESISTANT Normal [facility] Comment on above: Performed By: #### Sherita ARAUJO #### [facility] [address] [place] [address] CBC With Platelet and Differ entialon 10-21-2023 Basophils (Bld) [#/Vol] 0.1 10*3/uL Normal 0.0-0.2 [facility] Comment on above: Performed By: #### Sherita ARAUJO #### [facility] [address] [place] [address] Basophils/100 WBC (Bld) 1.1 % Normal [facility] Comment on above: Performed By: #### Sherita ARAUJO #### [facility] [address] [place] [address] Eosinophils (Bld) [#/Vol] 0.6 10*3/uL Normal 0.0-0.7 [facility] Comment on above: Performed By: #### Sherita ARAUJO #### [facility] [address] [place] [address] Eosinophils/100 WBC (Bld) 9.0 % Normal [facility] Comment on above: Performed By: #### Sherita ARAUJO #### [facility] [address] [place] [address] Erythrocyte distribution width (RBC) [Ratio] 13.5 % Normal 11.5-14.5 [facility] Comment on above: Performed By: #### C XURN #### [facility] [address] [place] [address] Hematocrit (Bld) [Volume fraction] 42.3 % Normal 37.0-47.0 [facility] Comment on above: Performed By: #### C XURN #### [facility] [address] [place] [address] Hemoglobin (Bld) [Mass/Vol] 13.7 g/dL Normal 12.0-16.0 [facility] Comment on above: Performed By: #### C XUCARLINE #### [facility] [address] [place] [address] Lymphocytes (Bld) [#/Vol] 2.9 10*3/uL Normal 1.0-4.8 [facility] Comment on above: Performed By: #### C XURN #### [facility] [address] [place] [address] Lymphocytes/100 WBC (Bld) 44.8 % Normal [facility] Comment on above: Performed By: #### C XUCARLINE #### [facility] [address] [place] [address] MCH (RBC) [Entitic mass] 32.2 pg Critically high 27.0-31.3 [facility] Comment on above: Performed By: #### C XURN #### [facility] [address] [place] [address] MCHC 32.4 % Low 33.0-37.0 [facility] Comment on above: Performed By: #### C XUCARLINE #### [facility] [address] [place] [address] MCV (RBC) [Entitic vol] 99.3 fL Critically high 79.4-[address] [facility] Comment on above: Performed By: #### C XURN #### [facility] [address] [place] [address] Monocytes (Bld) [#/Vol] 0.7 10*3/uL Normal 0.2-0.8 [facility] Comment on above: Performed By: #### C XURN #### [facility] [address] [place] [address] Monocytes/100 WBC (Bld) 10.9 % Normal [facility] Comment on above: Performed By: #### C XURN #### [facility] [address] [place] [address] Neutrophils (Bld) [#/Vol] 2.2 10*3/uL Normal 1.4-6.5 [facility] Comment on above: Performed By: #### C XURN #### [facility] [address] [place] [address] Neutrophils/100 WBC (Bld) 33.9 % Normal [facility] Comment on above: Performed By: #### C XURN #### [facility] [address] [place] [address] Platelets (Bld) [#/Vol] 147 10*3/uL Normal 130-400 [facility] Comment on above: Performed By: #### C XURN #### [facility] [address] [place] [address] RBC (Bld) [#/Vol] 4.26 10*6/uL Normal 4.20-5.40 [facility] Comment on above: Performed By: #### C XURN #### [facility] [address] [place] [address] WBC (Bld) [#/Vol] 6.5 10*3/uL Normal 4.8-10.8 [facility] Comment on above: Performed By: #### C XURN #### [facility] [address] [place] [address] COVID-19on 10-21-2023 SARS-CoV-2 (COVID-19) RNA MARCY+probe Ql (Unsp spec) Not detected Normal Not Detect [facility] Comment on above: Result Comment: Cynthia hernandez NAAT: Negative results should be treated as presumptive and, if inconsistent with clinical signs and symptoms or necessary for patient management, should be tested with an alternative molecular assay. Negative results do not preclude SARS-CoV-2 infection and should not be used as the sole basis for patient management decisions. This test has been authorized by the FDA under an Emergency Use Authorization (EUA) for use by authorized laboratories. Fact sheet for Healthcare Providers: https://www.fda.gov/media/162403/download Fact sheet for Patients: https://www.fda.gov/media/549593/download METHODOLOGY: Isothermal Nucleic Acid Amplification Performed By: #### C OVRG #### [facility] [address] [place] [address] CT CERVICAL SPINE WO CONTRAS Ton 10-21-2023 CT CERVICAL SPINE WO CONTRAST EXAMINATION: CT OF THE CERVICAL SPINE WITHOUT CONTRAST 10/21/2023 5:31 pm TECHNIQUE: CT of the cervical spine was performed without the administration of intravenous contrast. Multiplanar reformatted images are provided for review. Automated exposure control, iterative reconstruction, and/or weight based adjustment of the mA/kV was utilized to reduce the radiation dose to as low as reasonably achievable. COMPARISON: None. HISTORY: ORDERING SYSTEM PROVIDED HISTORY: Trauma TECHNOLOGIST PROVIDED HISTORY: Reason for exam:->Trauma Decision Support Exception - unselect if not a suspected or confirmed emergency medical condition->Emergency Medical Condition (MA) What reading provider will be dictating this exam?->CRC FINDINGS: BONES/ALIGNMENT: There is no acute fracture or traumatic malalignment. DEGENERATIVE CHANGES: Moderate degenerative changes are noted nearly all levels in the cervical spine with minimal degenerative grade 1 anterolisthesis of C2 on C3 and C3 on C4. Severe facet arthropathy is noted in the upper cervical spine on the left. Moderate to severe multilevel degenerative disc disease with osteophytosis from C4 through T1. AP diameter of the canal is narrowed to approximately 7 mm at C5-6 and C6-7 SOFT TISSUES: There is no prevertebral soft tissue swelling. IMPRESSION: 1. No acute fracture or traumatic malalignment of the cervical spine. 2. Moderate to severe multilevel degenerative disc disease and facet arthropathy. 3. AP diameter of the canal is narrowed to approximately 7 mm at C5-6 and C6-7 due to uncovertebral joint osteophytes and bulging discs.. Interpreted by: Rene Cervantes MD Signed by: Rene Cervantes MD 10/21/[address] [facility] CT HEAD WO CONTRASTon 2023 CT HEAD WO CONTRAST EXAMINATION: CT OF THE HEAD WITHOUT CONTRAST 10/21/2023 5:31 pm TECHNIQUE: CT of the head was performed without the administration of intravenous contrast. Automated exposure control, iterative reconstruction, and/or weight based adjustment of the mA/kV was utilized to reduce the radiation dose to as low as reasonably achievable. COMPARISON: None. HISTORY: ORDERING SYSTEM PROVIDED HISTORY: Trauma TECHNOLOGIST PROVIDED HISTORY: Reason for exam:->Trauma Has a code stroke or stroke alert been called?->No Decision Support Exception - unselect if not a suspected or confirmed emergency medical condition->Emergency Medical Condition (MA) What reading provider will be dictating this exam?->CRC FINDINGS: BRAIN/VENTRICLES: There is no acute intracranial hemorrhage, mass effect or midline shift. No abnormal extra-axial fluid collection. The trivedi-white differentiation is maintained without evidence of an acute infarct. There is no evidence of hydrocephalus. ORBITS: The visualized portion of the orbits demonstrate no acute abnormality. SINUSES: The visualized paranasal sinuses and mastoid air cells demonstrate no acute abnormality. SOFT TISSUES/SKULL: No acute abnormality of the visualized skull or soft tissues. IMPRESSION: No acute intracranial abnormality. Interpreted by: Michael Stafford MD Signed by: Michael Stafford MD 10/21/[address] [facility] Comprehensive Metabolic Pane ridge 10-21-2023 Albumin [Mass/Vol] 3.5 g/dL Normal 3.5-4.6 [facility] Comment on above: Performed By: #### C MP #### [facility] [address] [place] [address] ALP [Catalytic activity/Vol] 102 U/L Normal 40-130 [facility] Comment on above: Performed By: #### C MP #### [facility] [address] [place] [address] ALT [Catalytic activity/Vol] 21 U/L Normal 0-33 [facility] Comment on above: Performed By: #### C MP #### [facility] [address] [place] [address] Anion gap [Moles/Vol] 8 mmol/L Low 9-15 [facility] Comment on above: Performed By: #### C MP #### [facility] [address] [place] [address] AST [Catalytic activity/Vol] 40 U/L Critically high 0-35 [facility] Comment on above: Performed By: #### C MP #### [facility] [address] [place] [address] Bilirubin [Mass/Vol] 0.6 mg/dL Normal 0.2-0.7 [facility] Comment on above: Performed By: #### C MP #### [facility] [address] [place] [address] Calcium [Mass/Vol] 8.7 mg/dL Normal 8.5-9.9 [facility] Comment on above: Performed By: #### C MP #### [facility] [address] [place] [address] Chloride [Moles/Vol] 101 mmol/L Normal 95-107 [facility] Comment on above: Performed By: #### C MP #### [facility] [address] [place] [address] CO2 [Moles/Vol] 25 mmol/L Normal 20-31 [facility] Comment on above: Performed By: #### C MP #### [facility] [address] [place] [address] Creatinine [Mass/Vol] 0.64 mg/dL Normal 0.50-0.90 [facility] Comment on above: Performed By: #### C MP #### [facility] [address] [place] [address] GFR >60.0 Normal >60 [facility] Comment on above: Result Comment: Noreen atric calculator link https://www.kidney.org/professionals/kdoqi/gfr_calculatorped Effective May 10, 2022 These results are not intended for use in patients <18 years of age. eGFR results are calculated without a race factor using the 2020 CKD-EPI equation. Careful clinical correlation is recommended, particularly when comparing to results calculated using previous equations. The CKD-EPI equation is less accurate in patients with extremes of muscle mass, extra-renal metabolism of creatinine, excessive creatinine ingestion, or following therapy that affects renal tubular secretion. Performed By: #### C MP #### [facility] [address] [place] [address] Globulin (S) [Mass/Vol] 4.3 g/dL Critically high 2.3-3.5 [facility] Comment on above: Performed By: #### C MP #### [facility] [address] [place] [address] Glucose [Mass/Vol] 102 mg/dL Critically high 70-99 [facility] Comment on above: Performed By: #### C MP #### [facility] [address] [place] [address] Potassium [Moles/Vol] 4.7 mmol/L Normal 3.4-4.9 [facility] Comment on above: Performed By: #### C MP #### [facility] [address] [place] [address] Protein [Mass/Vol] 7.8 g/dL Normal 6.3-8.0 [facility] Comment on above: Performed By: #### C MP #### [facility] [address] [place] [address] Sodium [Moles/Vol] 134 mmol/L Low 135-144 [facility] Comment on above: Performed By: #### C MP #### [facility] [address] [place] [address] Urea nitrogen [Mass/Vol] 14 mg/dL Normal 8-23 [facility] Comment on above: Performed By: #### C MP #### [facility] [address] [place] [address] Culture, Urineon 10-21-2023 Culture, Urine ORDER#: [id number] ORDERED BY: AYANA KING SOURCE: Urine Clean Catch COLLECTED: 10/21/23 18:35 ANTIBIOTICS AT MAX.: RECEIVED : 10/21/23 18:35 Culture, Urine PRELIM 10/23/23 08:53 [place] [address] Escherichia coli >100,000 CFU/ML Normal [facility] Comment on above: Performed By: #### C GAYLE #### [facility] [address] [place] [address] High Sensitivity Troponin To n 10-21-2023 High Sensitivity Troponin T 7 ng/L Normal 0-19 [facility] Comment on above: Result Comment: High Sensitivity Troponin values cannot be compared with other Troponin methodologies. Performed By: #### C GAYLE #### [facility] [address] [place] [address] Lipaseon 10-21-2023 Lipase [Catalytic activity/Vol] 51 U/L Normal 12-95 [facility] Comment on above: Performed By: #### C GAYLE #### [facility] [address] [place] [address] Magnesiumon 10-21-2023 Magnesium [Mass/Vol] 2.0 mg/dL Normal 1.7-2.4 [facility] Comment on above: Performed By: #### C JESUSN #### [facility] [address] [place] [address] TSH w/out Reflexon TSH w/out Reflex 0.794 uIU/mL Normal 0.440-3.86 [facility] Comment on above: Performed By: #### C GAYLE #### [facility] [address] [place] [address] Thyroxine Freeon 10-21-2023 Thyroxine Free 1.07 ng/dL Normal 0.84-1.68 [facility] Comment on above: Performed By: #### C GAYLE #### [facility] [address] [place] [address] Urinalysis, reflex to cultur adri 10-21-2023 Urine Reflexed to Culture Yes Normal [facility] Comment on above: Performed By: #### U AR #### [facility] [address] [place] [address] Bilirubin Ql (U) Negative Normal Negative [facility] Comment on above: Performed By: #### U AR #### [facility] [address] [place] [address] Clarity (U) Clear Normal Clear [facility] Comment on above: Performed By: #### U AR #### [facility] [address] [place] [address] Color (U) Yellow Normal Straw/[place] [facility] Comment on above: Performed By: #### U AR #### [facility] [address] [place] [address] Glucose Ql (U) Negative Normal Negative [facility] Comment on above: Performed By: #### U AR #### [facility] [address] [place] [address] Hemoglobin Ql (U) Negative Normal Negative [facility] Comment on above: Performed By: #### U AR #### [facility] [address] [place] [address] Ketones Ql (U) Negative Normal Negative [facility] Comment on above: Performed By: #### U AR #### [facility] [address] [place] [address] Leukocyte esterase Test strip Ql (U) SMALL Abnormal Negative [facility] Comment on above: Performed By: #### U AR #### [facility] [address] [place] [address] Nitrite Ql (U) Positive Abnormal Negative [facility] Comment on above: Performed By: #### U AR #### [facility] [address] [place] [address] pH (U) 7.5 [pH] Normal 5.0-9.0 [facility] Comment on above: Performed By: #### U AR #### [facility] [address] [place] [address] Protein Ql (U) Negative Normal Negative [facility] Comment on above: Performed By: #### U AR #### [facility] [address] [place] [address] Specific gravity (U) [Rel density] 1.010 Normal 1.005-1.03 [facility] Comment on above: Performed By: #### U AR #### [facility] [address] [place] [address] Urobilinogen Qn (U) 1.0 {[place]'U}/dL Normal < 2.0 [facility] Comment on above: Performed By: #### U AR #### [facility] [address] [place] [address] Urine Microscopicon 10-21-19 24 Urine Bacteria MANY Abnormal Negative [facility] Comment on above: Performed By: #### U AR #### [facility] [address] [place] [address] Urine Epithelial Cells Auto 0-2 Normal 0-5 [facility] Comment on above: Performed By: #### U AR #### [facility] [address] [place] [address] Urine Hyaline Casts Auto 0-1 Normal 0-5 [facility] Comment on above: Performed By: #### U AR #### [facility] [address] [place] [address] Urine RBC Auto 6-10 Abnormal 0-5 [facility] Comment on above: Performed By: #### U AR #### [facility] [address] [place] [address] Urine WBC Auto 20-50 Abnormal 0-5 [facility] Comment on above: Performed By: #### U AR #### [facility] [address] [place] [address] XR CHEST PORTABLEon 10-21-19 XR CHEST PORTABLE EXAMINATION: ONE XRAY VIEW OF THE CHEST 10/21/2023 5:28 pm COMPARISON: None. HISTORY: ORDERING SYSTEM PROVIDED HISTORY: Pain TECHNOLOGIST PROVIDED HISTORY: Reason for exam:->Pain What reading provider will be dictating this exam?->CRC FINDINGS: The heart is enlarged. Pulmonary vessels are congested. Mild hazy density in the lower lungs. There is no pneumothorax or large pleural effusion. IMPRESSION: 1. Cardiomegaly with pulmonary vascular congestion. 2. Mild hazy density in the lower lungs may be due to pulmonary edema. Interpreted by: Fahad Dozier MD Signed by: Fahad Dozier MD 10/21/[address] [facility] TSH 3rd Generationon 024 TSH 3rd Generation 1.550 mU/L Normal 0.270-4.20 [facility] Comment on above: Result Comment: REFE RENCE INTERVAL: TSH 3rd Generation Access complete set of age- and/or gender-specific reference intervals for this test in the [facility] Test Directory ([employer]). Performed By: [facility] [address] [place] [address] Community Leader: Rehan Harrell MD, PhD CLIA Number: [id number] CBC With Platelet No Differe ntialon 09-12-2023 Erythrocyte distribution width (RBC) [Ratio] 13.2 % Normal 11.5-14.5 [facility] Comment on above: Performed By: #### C BCND #### [facility] [address] [place] [address] Hematocrit (Bld) [Volume fraction] 39.1 % Normal 37.0-47.0 [facility] Comment on above: Performed By: #### C BCND #### [facility] [address] [place] [address] Hemoglobin (Bld) [Mass/Vol] 12.9 g/dL Normal 12.0-16.0 [facility] Comment on above: Performed By: #### C BCND #### [facility] [address] [place] [address] MCH (RBC) [Entitic mass] 32.0 pg Critically high 27.0-31.3 [facility] Comment on above: Performed By: #### C BCND #### [facility] [address] [place] [address] MCHC 33.0 % Normal 33.0-37.0 [facility] Comment on above: Performed By: #### C BCND #### [facility] [address] [place] [address] MCV (RBC) [Entitic vol] 97.0 fL Critically high 79.4-[address] [facility] Comment on above: Performed By: #### C BCND #### [facility] [address] [place] [address] Platelets (Bld) [#/Vol] 212 10*3/uL Normal 130-400 [facility] Comment on above: Performed By: #### C BCND #### [facility] [address] [place] [address] RBC (Bld) [#/Vol] 4.03 10*6/uL Low 4.20-5.40 [facility] Comment on above: Performed By: #### C BCND #### [facility] [address] [place] [address] WBC (Bld) [#/Vol] 5.1 10*3/uL Normal 4.8-10.8 [facility] Comment on above: Performed By: #### C BCND #### [facility] [address] [place] [address] Comprehensive Metabolic Pane ridge 09-12-2023 Albumin [Mass/Vol] 3.5 g/dL Normal 3.5-4.6 [facility] Comment on above: Performed By: #### C MP #### [facility] [address] [place] [address] ALP [Catalytic activity/Vol] 79 U/L Normal 40-130 [facility] Comment on above: Performed By: #### C MP #### [facility] [address] [place] [address] ALT [Catalytic activity/Vol] 23 U/L Normal 0-33 [facility] Comment on above: Performed By: #### C MP #### [facility] [address] [place] [address] Anion gap [Moles/Vol] 9 mmol/L Normal 9-15 [facility] Comment on above: Performed By: #### C MP #### [facility] [address] [place] [address] AST [Catalytic activity/Vol] 43 U/L Critically high 0-35 [facility] Comment on above: Performed By: #### C MP #### [facility] [address] [place] [address] Bilirubin [Mass/Vol] 0.8 mg/dL Critically high 0.2-0.7 [facility] Comment on above: Performed By: #### C MP #### [facility] [address] [place] [address] Calcium [Mass/Vol] 8.7 mg/dL Normal 8.5-9.9 [facility] Comment on above: Performed By: #### C MP #### [facility] [address] [place] [address] Chloride [Moles/Vol] 102 mmol/L Normal 95-107 [facility] Comment on above: Performed By: #### C MP #### [facility] [address] [place] [address] CO2 [Moles/Vol] 24 mmol/L Normal 20-31 [facility] Comment on above: Performed By: #### C MP #### [facility] [address] [place] [address] Creatinine [Mass/Vol] 0.68 mg/dL Normal 0.50-0.90 [facility] Comment on above: Performed By: #### C MP #### [facility] [address] [place] [address] GFR >60.0 Normal >60 [facility] Comment on above: Result Comment: Noreen atric calculator link https://www.kidney.org/professionals/kdoqi/gfr_calculatorped Effective May 10, 2022 These results are not intended for use in patients <18 years of age. eGFR results are calculated without a race factor using the 2020 CKD-EPI equation. Careful clinical correlation is recommended, particularly when comparing to results calculated using previous equations. The CKD-EPI equation is less accurate in patients with extremes of muscle mass, extra-renal metabolism of creatinine, excessive creatinine ingestion, or following therapy that affects renal tubular secretion. Performed By: #### C MP #### [facility] [address] [place] [address] Globulin (S) [Mass/Vol] 4.1 g/dL Critically high 2.3-3.5 [facility] Comment on above: Performed By: #### C MP #### [facility] [address] [place] [address] Glucose [Mass/Vol] 100 mg/dL Critically high 70-99 [facility] Comment on above: Performed By: #### C MP #### [facility] [address] [place] [address] Potassium [Moles/Vol] 4.2 mmol/L Normal 3.4-4.9 [facility] Comment on above: Performed By: #### C MP #### [facility] [address] [place] [address] Protein [Mass/Vol] 7.6 g/dL Normal 6.3-8.0 [facility] Comment on above: Performed By: #### C MP #### [facility] [address] [place] [address] Sodium [Moles/Vol] 135 mmol/L Normal 135-144 [facility] Comment on above: Performed By: #### C MP #### [facility] [address] [place] [address] Urea nitrogen [Mass/Vol] 13 mg/dL Normal 8-23 [facility] Comment on above: Performed By: #### C MP #### [facility] [address] [place] [address] Magnesiumon 09-12-2023 Magnesium [Mass/Vol] 1.9 mg/dL Normal 1.7-2.4 [facility] Comment on above: Performed By: #### M G #### [facility] [address] [place] [address] proBNPon 09-12-2023 Natriuretic peptide B (Bld) [Mass/Vol] 400 pg/mL Normal [facility] Comment on above: Result Comment: NT-p ro BNP ACUTE Interpretive Guidelines: Age Cutoff for Heart Failure Less than 50 yrs 450 pg/mL 50-75 yrs 900 pg/mL Greater than 75 yrs 1800 pg/mL NT-pro BNP NON-ACUTE Interpretive Guidelines: Age Reference Range Less than 74 yrs 0-125 pg/mL Greater than 74 yrs 0-450 pg/mL Other possible causes of an elevated NT-proBNP include: cardiac ischemia, acute coronary syndrome, COPD, pneumonia, atrial fibrillation, pulmonary emboli, pulmonary hypertension, pericarditis Reference: Otf Jenkins, et al. NT-proBNP testing for diagnosis and short-term prognosis in acute destabilized HF: an international pooled analysis of 1256 patients. Heart Journal. 2006;27:330-337 Performed By: #### U YASMINE #### [facility] [address] [place] [address] Quantiferon-TB Plus (Client Incubated)on 09-02-2023 Gamma interferon background IA Qn (Bld) 0.00 International_Unit/mL Invalid Interpretation Code [facility] Comment on above: Performed By: #### 1 [id number], [id number], [id number], [id number] #### [facility] [address] [place] [address] M. tuberculosis stim IFN-g by CD4+ CD8+ T-cells Qn (Bld) 0.00 International_Unit/mL Invalid Interpretation Code [facility] Comment on above: Performed By: #### 1 [id number], [id number], [id number], [id number], [id number] #### [facility] [address] [place] [address] M. tuberculosis stim IFN-g by CD4+ T-cells Qn (Bld) 0.02 International_Unit/mL Invalid Interpretation Code [facility] Comment on above: Performed By: #### 1 [id number] [id number], 2960556, 8296031, [id number] #### [facility] [address] [place] [address] M. tuberculosis stim IFN-g Ql (Bld) [Interp] Negative Invalid Interpretation Code Negative [facility] Comment on above: Result Comment: No r esponse to M tuberculosis antigens detected. Infection with M tuberculosis is unlikely, but high risk individuals should be considered for additional testing (ATS/IDSA/CDC Clinical Practice Guidelines, 2017). The reference range is an Antigen minus Nil result of <0.35 IU/mL. The specimen received for QuantiFERON testing was incubated by the ordering institution. Specific procedures outlined in our Directory of Services and in the package insert for the QuantiFERON Gold (In Tube) test must be followed to enable for proper stimulation of cells for the production of interferon gamma. Chemiluminescence immunoassay methodology Performed at: [facility] [id number] PhD Santos Villareal Performed By: #### 1 [id number], [id number], [id number], [id number], [id number] #### [facility] [address] [place] [address] Mitogen stimulated gamma interferon Qn (Bld) >10.00 Invalid Interpretation Code [facility] Comment on above: Performed By: #### 1 [id number], 7511957, 1769413, 9270852, [id number] #### [facility] [address] [place] [address] Service comment (Unsp spec) [Interp] Comment Invalid Interpretation Code [facility] Comment on above: Result Comment: [place] tiFERON-TB Gold Plus is a qualitative indirect test for M tuberculosis infection (including disease) and is intended for use in conjunction with risk assessment, radiography, and other medical and diagnostic evaluations. The QuantiFERON-TB Gold Plus result is determined by subtracting the Nil value from either TB antigen (Ag) value. The Mitogen tube serves as a control for the test. Performed By: #### 1 [id number], [id number], [id number], [id number], [id number] #### [facility] [address] [place] [address] Discharge Instructionson Discharge Instructions [id number] Normal [facility] Inpatient Clinical Summaryon 08-31-2023 Inpatient Clinical Summary [address] [address] Clinical Summary Person Information: Name: CARIDAD GLOVER I Age: 83 Years : 1940 Sex: Female PCP: EMDOND PACHECO DO Marital Status: Phone: [phone] Race: White Ethnicity: Non- or Language: Palauan Visit Id: Visit Reason: Altered mental status; AMS Speciality: Acuity: Enc Type: Observation Med Service: Medical Arrival: 08/27/2023 18:31:49 Discharge: Dispo Type: Admitted as IP to this Hosp Address: [address] [place] [id number] Provider Notes: Diagnosis: 1:Dementia; 2:History of CVA in adulthood; 3:Hypertension; 4:Compulsive skin picking; 5:History of PSVT (paroxysmal supraventricular tachycardia); 6:Obstructive sleep apnea; 7:Lumbar spinal stenosis; 8:Anxiety and depression; 9:Psoriatic arthritis; 10:Chronic GERD; 11:Obesity; 12:Encounter for deep vein thrombosis (DVT) prophylaxis; Depression, unspecified Problems Active Cerebrovascular disease Neurodermatitis Psoriatic arthritis Immunodeficiency due to treatment with immunosuppressive medication History of ventricular tachycardia Recurrent falls Alcohol use disorder Psychophysical visual disturbance (01/20/2023) Visual hallucinations (01/20/2023) Obstructive sleep apnea syndrome (01/20/2023) Lumbar spondylosis Herpes labialis Dementia (01/20/2023) Benign neoplasm of colon Urinary frequency Nocturia Obesity Glaucoma Smoking Status: Never Smoker Functional Status: Sensory Deficits: History of Falls: Mobility Assistance Prior to Admission: ADLs: Minimal assistance Current Level of Assistance for Self-Care/Mobility: Cognitive Status: Not oriented to time Allergies No Known Medication Allergies Measurements: Height: 152.4 cm Weight: 90.1 kg Blood Pressure: 130 mmHg / 80 mmHg BMI: 38.06 kg/m2 Procedures No Procedures Documented Immunizations No Immunizations Documented This Visit Final Med List: amlodipine (Norvasc 2.5 mg Tab) 2 Tablets By Mouth every day. aspirin (aspirin 81 mg Oral EC Tab) 1 Tablets By Mouth every day. busPIRone (busPIRone 15 mg Tab) 1 Tablets By Mouth 2 times a day. escitalopram (Lexapro 20 mg Tab) 1 Tablets By Mouth every day. infliximab (Remicade) Dr Taylor. latanoprost ophthalmic (latanoprost Opth 0.005% Batool) 1 drop Both eyes daily. melatonin (Melatonin 1 mg oral tablet) 1 Milligram By Mouth once a day (at bedtime). Refills: 0. multivitamin (Multiple Vitamins Tab) 1 Tablets By Mouth every day. omeprazole (omeprazole 20 mg Cap-DR) 1 Capsules By Mouth once a day (in the morning). quetiapine (SEROquel 25 mg Tab) 12.5 Milligram By Mouth every day. in afternoon. quetiapine (SEROquel 25 mg Tab) 0.5 Tablets By Mouth at bedtime. Care Team Members: Attending Physician: Reuben DREW DO Consulting Physician: Austyn Campos MD Referring Physician: Follow up: With: Address: When: Austyn Campos MD [address] [address] Within 2 to 4 weeks Patient Education Information: Normal [facility] Inpatient Patient Summaryon 08-31-2023 Inpatient Patient Summary CARIDAD GLOVER I :1940 Visit Date:08/27/2023 Inpatient Discharge Instructions Your Care Team Admitting Physician - Reuben DREW DO Consulting Physician - Austyn Campos MD Reason for Your Visit I had a fall couple of weeks ago Your Diagnosis Dementia History of CVA in adulthood Hypertension Compulsive skin picking History of PSVT (paroxysmal supraventricular tachycardia) Obstructive sleep apnea Lumbar spinal stenosis Anxiety and depression Psoriatic arthritis Chronic GERD Obesity Encounter for deep vein thrombosis (DVT) prophylaxis Altered mental status Depression, unspecified Tests Performed Quantiferon-TB Plus (Client Incubated) -- Results Pending -- XR Chest Single View Please visit your patient portal for your results or contact your primary care physician. This Is Your Medications List amlodipine (Norvasc 2.5 mg Tab) aspirin (aspirin 81 mg Oral EC Tab) busPIRone (busPIRone 15 mg Tab) escitalopram (Lexapro 20 mg Tab) infliximab (Remicade) latanoprost ophthalmic (latanoprost Opth 0.005% Batool) melatonin (Melatonin 1 mg oral tablet) multivitamin (Multiple Vitamins Tab) omeprazole (omeprazole 20 mg Cap-DR) quetiapine (SEROquel 25 mg Tab) quetiapine (SEROquel 25 mg Tab) [Image Removed: STOP]Stop taking these medications celecoxib (CeleBREX 200 mg Cap) cetirizine (cetirizine 10 mg oral capsule) tizanidine (tiZANidine 4 mg Tab) Procedure History Closed reduction of nasal fracture (02/05/2021), Helene osteotomy second and third metatarsal. capsulotomy third metatarsophalangeal joint. Helene osteotomy second metatarsophalangeal joint. proximal interphalangeal joint arthroplasty left second digit and to the left third digit (09/19/2014), Cataract (2012), Back, Right hammer toe and bunionectomy, RIght knee arthroscopy, tubal ligation. Discharge Vitals Temperature (Oral) 36.8 ?C Heart Rate (Monitored) 81 Respiratory Rate 16 Blood Pressure 130/80 What to do next Instructions From Your Doctor Event Name Event Result Discharge Diet(s) Regular Pending Diagnostic Test Results None Pharmacy Information [facility] New Follow Up Appointments after Discharge Follow Up with Austyn Campos MD, NEU When: Within 2 to 4 weeks Where: [facility] [address] [place] [address]- Medications What How Much When Instructions Next Dose New amlodipine (Norvasc 2.5 mg Tab) 2 Tablets By Mouth Every day 09/01/23 Changed quetiapine (SEROquel 25 mg Tab) 0.5 Tablets By Mouth At bedtime 08/31/23 Changed quetiapine (SEROquel 25 mg Tab) 12.5 Milligram By Mouth Every day in afternoon 08/31/23 Unchanged aspirin (aspirin 81 mg Oral EC Tab) 1 Tablets By Mouth Every day 09/01/23 Unchanged busPIRone (busPIRone 15 mg Tab) 1 Tablets By Mouth 2 times a day 08/31/23 Unchanged escitalopram (Lexapro 20 mg Tab) 1 Tablets By Mouth Every day 09/01/23 Unchanged infliximab (Remicade) Dr Taylor as ordered Unchanged latanoprost ophthalmic (latanoprost Opth 0.005% Batool) See instructions 1 drop Both eyes daily as ordered Unchanged melatonin (Melatonin 1 mg oral tablet) 1 Milligram By Mouth Once a day (at bedtime) 08/31/23 Unchanged multivitamin (Multiple Vitamins Tab) 1 Tablets By Mouth Every day 09/01/23 Unchanged omeprazole (omeprazole 20 mg Karl) 1 Capsules By Mouth Once a day (in the morning) 09/01/23 What How Much When Comments Stop Taking celecoxib (CeleBREX 200 mg Cap) 1 Capsules By Mouth 2 times a day Stop Taking cetirizine (cetirizine 10 mg oral capsule) 1 Capsules By Mouth At bedtime Stop Taking tizanidine (tiZANidine 4 mg Tab) 1 Tablets By Mouth At bedtime States 1-2 tabs orally at bedtime Test Results CBC BMP WBC: 5.3 E9/L (08/28/23 04:55:00) Glucose Lvl: 90 mg/dL (08/28/23 04:55:00) RBC: 3.7 E12/L Low (08/28/23 04:55:00) BUN: 13 mg/dL (08/28/23 04:55:00) HGB: 11.7 gm/dL Low (08/28/23 04:55:00) Creatinine: 0.6 mg/dL (08/28/23 04:55:00) Hct: 36 % (08/28/23 04:55:00) BUN/Creat Ratio: 22 High (08/28/23 04:55:00) MCV: 98.5 fL (08/28/23 04:55:00) Sodium Lvl: 135 mmol/L (08/28/23 04:55:00) MCH: 32 pg (08/28/23 04:55:00) Potassium Lvl: 4 mmol/L (08/28/23 04:55:00) MCHC: 32.5 gm/dL (08/28/23 04:55:00) Chloride: 103 mmol/L (08/28/23 04:55:00) RDW: 13.5 % (08/28/23 04:55:00) CO2: 29 mmol/L (08/28/23 04:55:00) Platelet: 164 E9/L (08/28/23 04:55:00) AGAP: 7 mEq/L (08/28/23 04:55:00) MPV: 7.6 fL (08/28/23 04:55:00) Calcium Lvl: 8.3 mg/dL Low (08/28/23 04:55:00) Allergies No Known Medication Allergies Problems Ongoing - Any problem that you are currently receiving treatment for. Alcohol use disorder Benign neoplasm of colon Cerebrovascular disease Dementia Glaucoma Herpes labialis History of ventricular tachycardia Immunodeficiency due to treatment with immunosuppressive medication Lumbar spondylosis Neurodermatitis Nocturia (more content not included)... Normal [facility] Inpatient Patient Summary [place] [address] Patient Discharge Instructions PERSON INFORMATION Name: CARIDAD GLVOER I Date of : 1940 Current Date: 08/31/2023 11:59:11 PHYSICIANS Admitting Physician: Reuben DREW DO Primary Care Physician: EDMOND PACHECO DO PCP Comment: Discharge Diagnosis: 1:Dementia; 2:History of CVA in adulthood; 3:Hypertension; 4:Compulsive skin picking; 5:History of PSVT (paroxysmal supraventricular tachycardia); 6:Obstructive sleep apnea; 7:Lumbar spinal stenosis; 8:Anxiety and depression; 9:Psoriatic arthritis; 10:Chronic GERD; 11:Obesity; 12:Encounter for deep vein thrombosis (DVT) prophylaxis; Depression, unspecified Condition at Discharge: Stable CARIDAD GLOVER I has been given the following list of follow-up instructions, prescriptions, and patient education materials: PATIENT FOLLOW-UP INFORMATION Diet: Regular Discharge Activity: Discharge Restrictions: Wound Care Instructions: Remove Your Dressing In Days Call Your Doctor For: IF UNABLE TO CONTACT YOUR PHYSICIAN AND YOU FEEL IT IS AN EMERGENCY, GO TO THE NEAREST EMERGENCY ROOM OR CALL 911 Home Treatment: Devices/Equipment: Rollator Walker, Walker [facility] Services: Additional Instructions: Primary Care Physician to provide the following pending test results: None Follow up: With: Address: When: Andres RODRIGUEZ, Austyn [facility] [place] [address] Within 2 to 4 weeks In the event that this physician does not participate in your insurance network, please consult with your insurance company to find a nearby participating provider. Comment: JV Heaton JANICE I, have received the attached patient education materials/instructions and have verbalized understanding: Patient Signature Date Clinican/Nurse Signature ___ Date HERE ARE THE MEDICATION CHANGES THAT OCCURRED DURING YOUR HOSPITAL STAY New Medications Other Medications amlodipine (Norvasc 2.5 mg Tab) 2 Tablets By Mouth every day. Last Dose: ___Next Dose: ___ Medications to Continue Taking That Have Changed Other Medications START: quetiapine (SEROquel 25 mg Tab) 12.5 Milligram By Mouth every day. in afternoon. Last Dose: ___Next Dose: ___ START: quetiapine (SEROquel 25 mg Tab) 0.5 Tablets By Mouth at bedtime. Last Dose: ___Next Dose: ___ STOP: quetiapine (SEROquel 25 mg Tab) 1 Tablets By Mouth at bedtime. Medications to Continue with No Changes Other Medications aspirin (aspirin 81 mg Oral EC Tab) 1 Tablets By Mouth every day. Last Dose: ___Next Dose: ___ busPIRone (busPIRone 15 mg Tab) 1 Tablets By Mouth 2 times a day. Last Dose: ___Next Dose: ___ escitalopram (Lexapro 20 mg Tab) 1 Tablets By Mouth every day. Last Dose: ___Next Dose: ___ infliximab (Remicade) Dr Taylor., unknown dosing information provided Last Dose: ___Next Dose: ___ latanoprost ophthalmic (latanoprost Opth 0.005% Batool) 1 drop Both eyes daily., GLAUCOMA Last Dose: ___Next Dose: ___ melatonin (Melatonin 1 mg oral tablet) 1 Milligram By Mouth once a day (at bedtime). Refills: 0. Last Dose: ___Next Dose: ___ multivitamin (Multiple Vitamins Tab) 1 Tablets By Mouth every day. Last Dose: ___Next Dose: ___ omeprazole (omeprazole 20 mg Cap-DR) 1 Capsules By Mouth once a day (in the morning). Last Dose: ___Next Dose: ___ No Longer Take the Following Medications celecoxib (CeleBREX 200 mg Cap) 1 Capsules By Mouth 2 times a day. cetirizine (cetirizine 10 mg oral capsule) 1 Capsules By Mouth at bedtime. Refills: 0. tizanidine (tiZANidine 4 mg Tab) 1 Tablets By Mouth at bedtime. States 1-2 tabs orally at bedtime. Comment: MEDICATION LIST PROVIDED FOR YOU IS A LIST OF YOUR CURRENT MEDICATIONS. PLEASE CARRY THIS WITH YOU AT ALL TIMES. amlodipine (Norvasc 2.5 mg Tab) 2 Tablets By Mouth every day. aspirin (aspirin 81 mg Oral EC Tab) 1 Tablets By Mouth every day. busPIRone (busPIRone 15 mg Tab) 1 Tablets By Mouth 2 times a day. escitalopram (Lexapro 20 mg Tab) 1 Tablets By Mouth every day. infliximab (Remicade) Dr Taylor. latanoprost ophthalmic (latanoprost Opth 0.005% Batool) 1 drop Both eyes daily. melatonin (Melatonin 1 mg oral tablet) 1 Milligram By Mouth once a day (at bedtime). Refills: 0. multivitamin (Multiple Vitamins Tab) 1 Tablets By Mouth every day. omeprazole (omeprazole 20 mg Cap-DR) 1 Capsules By Mouth once a day (in the morning) (more content not included)... [facility] Interdisciplinary Note - Adalberto e Manageron 08-31-2023 Interdisciplinary Note - Software Engineer Developer CRM to room to discuss DC planning. Patient is awake and alert in room. Family is present. Patient is from [facility]. She is unable to return at DC and needs LTC in a memory unit. Patient PCP and insurance has been verified. Patient is an observation for AMS. Patient is assigned to DR Bhatti, see notes. Patient has Neurology on case. Patient has been referred to [facility]. [facility] per family had accepted and hoping to DC 08/31/23. We have sent needed paperwork to them and are awaiting on final confirmation of acceptance. TB test was ordered. Patient was provided CRM contact, white board updated. CRM following. Patient can DC to [facility] today Family is transporting [facility] Comment on above: Result Comment: Elec tronically Signed By: Dianna Arthur\.br\Date and Time Signed: 08/31/23 14:51 EST Interdisciplinary Note - Soc ial Workeron 08-31-2023 Interdisciplinary Note - Motocross Racer This SW spoke to [facility] at [facility] today and confirmed they have everything needed for patient to admit there today. She voiced that everything is good to go and asked that patient's RN call report to the Memory Care Nurse at the facility; this was relayed to staff. This SW will continue to await the results of patient's blood TB test and will send these over to [facility] once they are available. At this time they were able to utilize the Chest X-ray but continue to want the results of the blood test for compliance with their state requirements. SW will remain available. [facility] Interdisciplinary Note - Adalberto e Manageron 08-30-2023 Interdisciplinary Note - Software Engineer Developer CRM to room to discuss DC planning. Patient is awake and alert in room. Family is present. Patient is from [facility] She is unable to return at DC and needs LTC in a memory unit. Patient PCP and insurance has been verified. Patient is an observation for AMS. Patient is assigned to DR Bhatti, see notes. Patient has Neurology on case. Patient has been referred to [facility]. [facility] per family had accepted and hoping to DC 08/31/23. We did send needed paper work filled out by Physician to [facility] that they were requesting. TB test was ordered. Patient was provided CRM contact, white board updated. CRM following. [facility] Comment on above: Result Comment: Elec tronically Signed By: Dianna Arthur\.br\Date and Time Signed: 08/30/23 15:41 EST Progress Note-Physicianon Progress Note-Physician Basic Informatio n 83 y/o F w/Dementia Assessment/Plan Dementia Anxiety and depression Compulsive skin picking -Placement -No overt manifestations to suggest anxiety or depression exacerbated -Seroquel once in the afternoon and once at night -Neurology HX of CVA in adult zamudio -no FND -supportive care HTN -Increased to 5mg daily -no chest pain Hx of PSVT -noted NAWAF -given dementia and pervious hx of intolerability w/NIV continue to monitor Lumbar spinal stenosis Psoriatic arthritis -Bladder scan -supportive care Chronic GERD -Famotidine Obesity -Patient's BMI >30. Obesity is a pro-inflammatory state likely affecting above medical processes. Time: 35 Mins Plan: As above: waiting long term care social worker care facility placement Subjective The patient was seen and examined. Alert to place and person not time. Review of Systems Denies any acute complaints today Denies any f/c/cp/ct/abdominal pain Due to underlying medical condition doubt veracity of the Objective Vitals & Measurements T: 36.8 ?C(Oral) TMIN: 36.3 ?C(Oral) TMAX: 36.8 ?C(Oral) HR: 83(Monitored) BP: 146/80 SpO2: 94% Intake & Output This visit (24 hour periods starting at 07:00 EST) 08/30/23 * 08/29/23 08/28/23 Total Summary Intake mL -- -- -- Output mL -- -- -- Fluid Balance -- -- -- Intake (0) Output (0) Counts (2) Diaper Count -- -- 1 Urine Count -- 1 -- * This column has not completed the indicated time period. Physical Exam General: alert, no acute distress Psychiatric: cooperative, affect appropriate for age Neurological: awake, alert, oriented to person and place not time, speech normal Cardiovascular: no overt murmurs Respiratory: no adventitious breath sounds Gastrointestinal: soft NT, NG, NR Extremities: no rash Lab Results No qualifying data available. Problem List/Past Medical History Ongoing Alcohol use disorder Benign neoplasm of colon Cerebrovascular disease Dementia Glaucoma Herpes labialis History of ventricular tachycardia Immunodeficiency due to treatment with immunosuppressive medication Lumbar spondylosis Neurodermatitis Nocturia Obesity Obstructive sleep apnea syndrome Psoriatic arthritis Psychophysical visual disturbance Recurrent falls Urinary frequency Visual hallucinations Historical Deformity of metatarsal Diabetes mellitus without complication Ventricular tachycardia Medications Inpatient acetaminophen 325 mg Tab, 650 mg= 2 tab(s), Oral, q6hr, PRN aspirin 81 mg Oral EC Tab, 81 mg= 1 tab(s), Oral, Daily busPIRone 5 mg Tab, 15 mg= 3 tab(s), Oral, BID enoxaparin 40 mg/0.4 mL SC Batool, 40 mg= 0.4 mL, SubCutaneous, Daily famotidine 20 mg Tab, 20 mg= 1 tab(s), Oral, BID Norvasc 2.5 mg Tab, 5 mg= 2 tab(s), Oral, Daily SEROquel 25 mg Tab, 12.5 mg= 0.5 tab(s), Oral, Daily SEROquel 25 mg Tab, 12.5 mg= 0.5 tab(s), Oral, Bedtime Zofran 4 mg/2 mL Injection, 4 mg= 2 mL, IV Push, q6hr, PRN Home aspirin 81 mg Oral EC Tab, 81 mg= 1 tab(s), Oral, Daily busPIRone 15 mg Tab, 15 mg= 1 tab(s), Oral, BID CeleBREX 200 mg Cap, 200 mg= 1 cap(s), Oral, BID cetirizine 10 mg oral capsule, 10 mg= 1 cap(s), Oral, Bedtime latanoprost Opth 0.005% Batool, See Instructions Lexapro 20 mg Tab, 20 mg= 1 tab(s), Oral, Daily Melatonin 1 mg oral tablet, 1 mg, Oral, Once a day (at bedtime) Multiple Vitamins Tab, 1 tab(s), Oral, Daily omeprazole 20 mg Cap-DR, 20 mg= 1 cap(s), Oral, qAM Remicade, Not taking SEROquel 25 mg Tab, 12.5 mg, Oral, Daily SEROquel 25 mg Tab, 25 mg= 1 tab(s), Oral, Bedtime tiZANidine 4 mg Tab, 4 mg= 1 tab(s), Oral, Bedtime [facility] Comment on above: Result Comment: Elec tronically Signed By: Davy RODRIGUEZ, Alex\.br\Date and Time Signed: 08/30/23 09:39 EST Interdisciplinary Note - Adalberto e Manageron 08-29-2023 Interdisciplinary Note - Software Engineer Developer CRM to room to discuss DC planning. Patient is awake and alert in room. Patient is from [facility]. She is unable to return at DC and needs LTC in a memory unit. Patient daughter will be in today around 1300/1330. Patient PCP and insurance has been verified. Patient is an observation for AMS. Patient is assinged to DR Bhatti, see notes. Patient has Neurology on case. Patient has been referred to 1. [facility], 2. [facility] at the [place], 3[facility] Patient was provided CRM contact, white board updated. CRM following. Will DC once placement found [facility] Comment on above: Result Comment: Elec tronically Signed By: Dianna Arthur\.br\Date and Time Signed: 08/29/23 11:40 EST Interdisciplinary Note - Penelope n 08-29-2023 Interdisciplinary Note - OT OT [facility] six clicks score = no further OT needs. Patient requires close/dist sup w/ all adls and transfers d/t cues for safety/sequencing. This appears to be pt's baseline d/t dementia. Recommend 24 hr supervision for optimal safety and Ind w/ functional activities. DC inpatient OT services. [facility] Progress Note-Physicianon Progress Note-Physician Basic Informatio n 83 y/o F w/Dementia Assessment/Plan Dementia Anxiety and depression Compulsive skin picking -Placement -No overt manifestations to suggest anxiety or depression exacerbated -Nerurology HX of CVA in adult zamudio -no FND -supportive care HTN -Norvasc -no chest pain Hx of PSVT -noted NAWAF -given dementia and pervious hx of intolerability w/NIV continue to monitor Lumbar spinal stenosis Psoriatic arthritis -Bladder scan -supportive care Chronic GERD -Famotidine Obeisty -Patient's BMI >30. Obesity is a pro-inflammatory state likely affecting above medical processes. Time: 35 Min's Plan: As above Subjective The patient was seen and examined. NOT oriented to place or time No acute complaints Review of Systems D/T underlying medical conditions doubt the veracity of ROS Denies any f/c/cp/ct/abdominal pain Objective Vitals & Measurements T: 36.5 ?C(Oral) TMIN: 36.4 ?C(Oral) TMAX: 36.9 ?C(Oral) HR: 93(Monitored) BP: 132/84 SpO2: 94% WT: 90.1 kg Intake & Output This visit (24 hour periods starting at 07:00 EST) 08/29/23 * 08/28/23 08/27/23 Total Summary Intake mL -- -- -- Output mL -- -- -- Fluid Balance -- -- -- Intake (0) Output (0) Counts (1) Diaper Count -- 1 -- * This column has not completed the indicated time period. Physical Exam General: alert, no acute distress Psychiatric: cooperative, affect appropriate for age Neurological: awake, alert, oriented to person only, speech normal Cardiovascular: no overt murmurs Respiratory: no adventitious breath sounds Gastrointestinal: soft NT, NG, NR Extremities: no rash Lab Results No qualifying data available. Problem List/Past Medical History Ongoing Alcohol use disorder Benign neoplasm of colon Cerebrovascular disease Dementia Glaucoma Herpes labialis History of ventricular tachycardia Immunodeficiency due to treatment with immunosuppressive medication Lumbar spondylosis Neurodermatitis Nocturia Obesity Obstructive sleep apnea syndrome Psoriatic arthritis Psychophysical visual disturbance Recurrent falls Urinary frequency Visual hallucinations Historical Deformity of metatarsal Diabetes mellitus without complication Ventricular tachycardia Medications Inpatient acetaminophen 325 mg Tab, 650 mg= 2 tab(s), Oral, q6hr, PRN aspirin 81 mg Oral EC Tab, 81 mg= 1 tab(s), Oral, Daily busPIRone 5 mg Tab, 15 mg= 3 tab(s), Oral, BID enoxaparin 40 mg/0.4 mL SC Batool, 40 mg= 0.4 mL, SubCutaneous, Daily famotidine 20 mg Tab, 20 mg= 1 tab(s), Oral, BID Norvasc 2.5 mg Tab, 2.5 mg= 1 tab(s), Oral, Daily SEROquel 25 mg Tab, 25 mg= 1 tab(s), Oral, Bedtime Zofran 4 mg/2 mL Injection, 4 mg= 2 mL, IV Push, q6hr, PRN Home aspirin 81 mg Oral EC Tab, 81 mg= 1 tab(s), Oral, Daily busPIRone 15 mg Tab, 15 mg= 1 tab(s), Oral, BID CeleBREX 200 mg Cap, 200 mg= 1 cap(s), Oral, BID cetirizine 10 mg oral capsule, 10 mg= 1 cap(s), Oral, Bedtime latanoprost Opth 0.005% Batool, See Instructions Lexapro 20 mg Tab, 20 mg= 1 tab(s), Oral, Daily Melatonin 1 mg oral tablet, 1 mg, Oral, Once a day (at bedtime) Multiple Vitamins Tab, 1 tab(s), Oral, Daily omeprazole 20 mg Cap-DR, 20 mg= 1 cap(s), Oral, qAM Remicade, Not taking SEROquel 25 mg Tab, 25 mg= 1 tab(s), Oral, Bedtime tiZANidine 4 mg Tab, 4 mg= 1 tab(s), Oral, Bedtime [facility] Comment on above: Result Comment: Elec tronically Signed By: Davy RODRIGUEZ, Alex\.br\Date and Time Signed: 08/29/23 13:34 EST BMPon 08-28-2023 Anion gap [Moles/Vol] 7 mmol/L Normal 6-16 [facility] Comment on above: Performed By: #### 1 [id number], 9152867, 9697598, 5239663, [id number] #### [facility] [address] [place] [address] BUN/Creat Ratio 22 No Units High 10-20 [facility] Comment on above: Performed By: #### 1 [id number], 5984473, 4037271, 2009282, [id number] #### [facility] [address] [place] [address] Calcium [Mass/Vol] 8.3 mg/dL Low 8.9-11.1 [facility] Comment on above: Performed By: #### 1 8293662, 9229062, 0563349, 7637708, [id number] #### [facility] [address] [place] [address] Chloride [Moles/Vol] 103 mmol/L Normal 101-111 [facility] Comment on above: Performed By: #### 1 [id number], 7302643, 5100352, 9594638, [id number] #### [facility] [address] [place] [address] CO2 [Moles/Vol] 29 mmol/L Normal 21-31 [facility] Comment on above: Performed By: #### 1 [id number], 9440561, 7432370, 5864265, 15925123 #### [facility] [address] [place] [address] Creatinine [Mass/Vol] 0.6 mg/dL Normal 0.5-1.3 [facility] Comment on above: Performed By: #### 1 6481282, 1367337, 0373356, 4677761, 89697587 #### [facility] [address] [place] [address] Glucose [Mass/Vol] 90 mg/dL Normal 55-199 [facility] Comment on above: Performed By: #### 1 8610753, 0867681, 5809388, 6989436, 11460386 #### [facility] [address] [place] [address] Potassium [Moles/Vol] 4.0 mmol/L Normal 3.5-5.3 [facility] Comment on above: Performed By: #### 1 [id number], 6467435, 3115645, 0491448, 54346096 #### [facility] [address] [place] [address] Sodium [Moles/Vol] 135 mmol/L Normal 135-145 [facility] Comment on above: Performed By: #### 1 8458087, 6431245, 8813997, 1469121, 19711634 #### [facility] [address] [place] [address] Urea nitrogen [Mass/Vol] 13 mg/dL Normal 5-21 [facility] Comment on above: Performed By: #### 1 5287765, 3823846, 1902537, 0492603, 88054820 #### [facility] [address] [place] [address] CBC w/ Auto Diffon 01-21-202 4 Basophil Absolute 0.1 E9/L Normal 0.0-0.2 [facility] Comment on above: Performed By: #### 1 5293624, 5511476, 2447122, 4949490, 23408382 #### [facility] [address] [place] [address] Basophils/100 WBC (Bld) 1.0 % Normal 0.0-2.0 [facility] Comment on above: Performed By: #### 1 8902630, 9693865, 4565951, 7717114, 28666364 #### [facility] [address] [place] [address] Eos Absolute 0.4 E9/L Normal 0.0-0.5 [facility] Comment on above: Performed By: #### 1 8187532, 9589514, 6057624, 4493750, 15024103 #### [facility] [address] [place] [address] Eosinophils/100 WBC (Bld) 7.8 % Normal 0.0-8.0 [facility] Comment on above: Performed By: #### 1 0302749, 4872741, 9972686, 2636648, 43048904 #### [facility] [address] [place] [address] Erythrocyte distribution width (RBC) [Ratio] 13.5 % Normal 10.9-14.2 [facility] Comment on above: Performed By: #### 1 3038070, 6737022, 4113512, 2320291, 77149913 #### [facility] [address] [place] [address] Hematocrit (Bld) [Volume fraction] 36.0 % Normal 34.0-46.0 [facility] Comment on above: Performed By: #### 1 9471690, 5200676, 1437629, 1030886, 46866399 #### [facility] [address] [place] [address] Hemoglobin (Bld) [Mass/Vol] 11.7 g/dL Low 12.0-16.0 [facility] Comment on above: Performed By: #### 1 2223770, 7730527, 0666851, 8298727, 71321308 #### [facility] [address] [place] [address] Lymph Absolute 2.4 E9/L Normal 1.0-4.0 [facility] Comment on above: Performed By: #### 1 7732034, 2253826, 7111732, 8658615, 87097072 #### [facility] [address] [place] [address] Lymphocytes/100 WBC (Bld) 46.5 % Normal 14.0-50.0 [facility] Comment on above: Performed By: #### 1 7025063, 1365452, 0340245, 2342920, 38957231 #### [facility] [address] [place] [address] MCH (RBC) [Entitic mass] 32.0 pg Normal 27.0-34.0 [facility] Comment on above: Performed By: #### 1 8944675, 9669546, 4839652, 5804069, 65876751 #### [facility] [address] [place] [address] MCHC (RBC) [Mass/Vol] 32.5 g/dL Normal 31.4-36.[address] [facility] Comment on above: Performed By: #### 1 3011918, 5170246, 3775150, 7558445, 79762259 #### [facility] [address] [place] [address] MCV (RBC) [Entitic vol] 98.5 fL Normal 80.0-100.0 [facility] Comment on above: Performed By: #### 1 6668239, 4784327, 2749808, 3818417, 41163053 #### [facility] [address] [place] [address] Erath Absolute 0.6 E9/L Normal 0.2-1.0 [facility] Comment on above: Performed By: #### 1 2966607, 4270812, 8683808, 7132296, 17148581 #### [facility] [address] [place] [address] Monocytes/100 WBC (Bld) 10.5 % Normal 4.0-14.0 [facility] Comment on above: Performed By: #### 1 3323895, 6739958, 7158857, 9786632, 86067209 #### [facility] [address] [place] [address] Neutro Absolute 1.8 E9/L Low 2.0-7.5 [facility] Comment on above: Performed By: #### 1 8256271, 7810772, 5115108, 4292397, 93693310 #### [facility] [address] [place] [address] Neutro Auto 34.2 % Low 36.0-75.0 [facility] Comment on above: Performed By: #### 1 3298440, 8148479, 3637219, 3787499, 84748823 #### [facility] [address] [place] [address] Platelet 164.0 E9/L Normal 150.0-500.0 [facility] Comment on above: Performed By: #### 1 5701499, 8399075, 3935799, 1441243, 30075576 #### [facility] [address] [place] [address] Platelet mean volume (Bld) [Entitic vol] 7.6 fL Normal 6.4-10.8 [facility] Comment on above: Performed By: #### 1 7073247, 3032795, 5941809, 5179100, 97527581 #### [facility] [address] [place] [address] RBC 3.7 E12/L Low 4.3-5.9 [facility] Comment on above: Performed By: #### 1 5734473, 7449220, 3371713, 8135422, 05382553 #### [facility] [address] [place] [address] WBC 5.3 E9/L Normal 4.0-11.0 [facility] Comment on above: Performed By: #### 1 3029444, 1752888, 6172987, 4998255, 87751574 #### [facility] [address] [place] [address] Interdisciplinary Note - Adalberto e Manageron 08-28-2023 Interdisciplinary Note - Software Engineer Developer CRM spoke with patients daughter Linh on the phone as patient has dementia and confused. Patient was previous rounded on by Dr Rodriguez today. No family in room. Patient is Whiteboard updated and CRM contact # provided. Patients daughter verified PCP, insurance and DME. Per daughter patient has been at [facility] and cannot return there as she is a flight risk. Daughter states she needs help to find a memory unit facility for her mother. She has called [facility] and they may come eval tomorrow for placement. She also had called [facility] and no beds. discussed [employer] [facility] [employer] as a choice and [facility] at the [facility] in [place] as her suggestions. Discussed [facility] as well. she is agreeable to send referrals to all places. She states she works 2 jobs to pay for care for her mother and mother has $40,000 in bank and a home to be sold to pay for care. She dis verify insurance, PCP and DME. She will transport at [place] to room and patient only oriented o self. Will wait responses from facilities. [facility] Comment on above: Result Comment: Elec tronically Signed By: Manolo CROWLEY, Jane\.br\Date and Time Signed: 08/28/23 13:09 EST Progress Note-Physicianon Progress Note-Physician Assessment/Plan New admit last night, awaiting to talk to patient's daughter who is POA about reason why patient was sent in. Was told that she was found wandering outside in the cold. 1. Dementia (F03.90: Unspecified dementia, unspecified severity, without behavioral disturbance, psychotic disturbance, mood disturbance, and anxiety) Likely progression Cannot take Aricept due to bradycardia and cannot take the Namenda due to dizziness UA negative Seroquel at night Ordered: [facility] Hospital Care/Day Moderate 35 Minutes [id number] 2. History of CVA in adulthood (Z86.73: Personal history of transient ischemic attack (TIA), and cerebral infarction without residual deficits) Aspirin 3. Hypertension (I10: Essential (primary) hypertension) Monitor Able at the time 4. Compulsive skin picking (F42.4: Excoriation (skin-picking) disorder) Per note from neurology from recent visit avoid first generation antihistamines 5. History of PSVT (paroxysmal supraventricular tachycardia) (Z86.79: Personal history of other diseases of the circulatory system) Recent Holter monitor, try to obtain records Telemetry Metoprolol as needed Monitor electrolytes 6. Obstructive sleep apnea (G47.33: Obstructive sleep apnea (adult) (pediatric)) Does not tolerate CPAP 7. Lumbar spinal stenosis (M48.061: Spinal stenosis, lumbar region without neurogenic claudication) PT/OT Tizanidine as needed bedtime 8. Anxiety and depression (F41.9: Anxiety disorder, unspecified) BuSpar 9. Psoriatic arthritis (L40.50: Arthropathic psoriasis, unspecified) Chronic, later 10. Chronic GERD (K21.9: Gastro-esophageal reflux disease without esophagitis) PPI 11. Obesity (E66.9: Obesity, unspecified) 12. Encounter for deep vein thrombosis (DVT) prophylaxis (Z29.9: Encounter for prophylactic measures, unspecified) Heparin subcu Depression, unspecified (F32.A: Depression, unspecified) Subjective Patient seen and examined. No acute events overnight. Patient was resting comfortably in bed waiting for breakfast. No complaints. Pleasantly demented. Knows she is confused. Objective Vitals & Measurements T: 36.5 ?C(Oral) TMIN: 36.5 ?C(Oral) TMAX: 36.9 ?C(Oral) HR: 73(Peripheral) RR: 16 BP: 153/71 SpO2: 94% HT: 152.4 cm WT: 88.4 kg Intake & Output No qualifying data available. Physical Exam General: NAD, obese Skin: Warm, dry Head: No trauma, normocephalic Neck: Trachea midline, supple, negative for JVD Eye: Conjunctive are clear, clear sclera , EOMI ENMT: oral mucosa moist, no lesions or edema nose or external ears Cardiovascular: Regular rate and rhythm, S1-S2 present, negative for murmurs rubs or gallops Respiratory: Lungs clear to auscultation, bilateral symmetric movement, negative for wheezes rales or rhonchi Chest wall: no deformity. Gastrointestinal: Abdomen soft, nontender to palpation, bowel sounds present Back: No tenderness Extremities: Range of motion intact, no edema Neurological: awake, alert, speech normal, cranial nerves II through XII intact, no sensory defects, alert and oriented x1, pleasantly demented and aware of name and that she lives in [place] Psychiatric: cooperative, affect appropriate for age, pleasant Lab Results WBC: 5.3 E9/L (08/28/23 04:55:00) RBC: 3.7 E12/L Low (08/28/23 04:55:00) HGB: 11.7 gm/dL Low (08/28/23 04:55:00) Hct: 36 % (08/28/23 04:55:00) MCV: 98.5 fL (08/28/23 04:55:00) MCH: 32 pg (08/28/23 04:55:00) MCHC: 32.5 gm/dL (08/28/23 04:55:00) RDW: 13.5 % (08/28/23 04:55:00) Platelet: 164 E9/L (08/28/23 04:55:00) MPV: 7.6 fL (08/28/23 04:55:00) Neutro Auto: 34.2 % Low (08/28/23 04:55:00) Lymph Auto: 46.5 % (08/28/23 04:55:00) Erath Auto: 10.5 % (08/28/23 04:55:00) Eos Auto: 7.8 % (08/28/23 04:55:00) Basophil Auto: 1 % (08/28/23 04:55:00) Neutro Absolute: 1.8 E9/L Low (08/28/23 04:55:00) Lymph Absolute: 2.4 E9/L (08/28/23 04:55:00) Erath Absolute: 0.6 E9/L (08/28/23 04:55:00) Eos Absolute: 0.4 E9/L (08/28/23 04:55:00) Basophil Absolute: 0.1 E9/L (08/28/23 04:55:00) Sed Rate Automated: 45 mm/hr High (08/28/23 04:55:00) PT: 12 second(s) (08/27/23 19:20:00) INR: 1.1 (08/27/23 19:20:00) PTT: 33.1 second(s) (08/27/23 19:20:00) Glucose Lvl: 90 mg/dL (08/28/23 04:55:00) BUN: 13 mg/dL (08/28/23 04:55:00) Creatinine: 0.6 mg/dL (08/28/23 04:55:00) eGFR: 90 mL/min/1.73 m2 (08/28/23 04:55:00) BUN/Creat Ratio: 22 High (08/28/23 04:55:00) Sodium Lvl: 135 mmol/L (08/28/23 04:55:00) Potassium Lvl: 4 mmol/L (08/28/23 04:55:00) Chloride: 103 mmol/L (08/28/23 04:55:00) CO2: 29 mmol/L (08/28/23 04:55:00) AGAP: 7 mEq/L (08/28/23 04:55:00) Calcium Lvl: 8.3 mg/dL Low (08/28/23 04:55:00) Alk Phos: 86 Int._Unit/L (08/27/23 19:20:00) ALT: 26 Int._Unit/L (08/27/23 19:20:00) AST: 41 Int._Unit/L (08/27/23 19:20:00) Total Protein: 7.3 gm/dL (08/27/23 19:20:00) Albumin Lvl: 3.2 gm/dL Low (08/27/23 19:20:00) Globulin: 4.1 gm/dL High (08/27/23 19:20:00) A/G R (more content not included)... Normal [facility] Comment on above: Result Comment: Elec tronically Signed By: Barrie Rodriguez DO\.br\Date and Time Signed: 08/28/23 09:52 EST Sed Rate Automatedon 024 ESR (Bld) [Velocity] 45 mm/h High 0-34 [facility] Comment on above: Performed By: #### 1 [id number], [id number], 9391918, [id number], [id number] #### [facility] [address] [place] [address] Troponin 6 Hr.on 08-28-2023 Troponin 14.20 pg/mL Normal 10.10-27.10 [facility] Comment on above: Result Comment: The 95% CI (Confidence Interval) PPV (Positive Predictive Value) for myocardial infarction in females is 38 pg/mL, in males 51 pg/mL. The results should be used in conjunction with clinical conditions of myocardial infarction. (Access High Sensitivity Troponin I Instructions For Use, Qire, March 2018) Performed By: #### 1 [id number] #### [facility] [address] [place] [address] Troponin 9 Hr.on 08-28-2023 Troponin 11.60 pg/mL Normal 10.10-27.10 [facility] Comment on above: Result Comment: The 95% CI (Confidence Interval) PPV (Positive Predictive Value) for myocardial infarction in females is 38 pg/mL, in males 51 pg/mL. The results should be used in conjunction with clinical conditions of myocardial infarction. (Access High Sensitivity Troponin I Instructions For Use, Qire, March 2018) Performed By: #### 1 [id number], [id number], 9762570, [id number], [id number] #### [facility] [address] [place] [address] XR Chest Single Viewon 08-28 XR Chest Single View Exam Date/Time: 08/27/2023 19:36 EST Reason for Exam: Shortness of breath (SOB) Report IMPRESSION: No acute findings by portable radiography. EXAMINATION: XR Chest Single View Clinical History: Shortness of breath (SOB) Comparison: 07/10/2023. RESULT: No distinct focal consolidation. No large pleural effusion. No pneumothorax. Stable enlarged cardiomediastinal silhouette. No acute osseous findings. Ordering Provider: Vicente Rausch FINAL REPORT Dictated: 08/28/2023 11:38 am Juaquin Allen MD Signed (Electronic Signature): 08/28/2023 11:38 am Signed by: Juaquin Allen MD Transcribed by: SID Technologist: RODNEY Technical Comments Radiation Dose: Ka,r in mGy = n/a DAP = n/a Normal [facility] eGFRon 08-28-2023 eGFR 90 mL/min/1.73 m2 Normal >=59 [facility] Comment on above: Order Comment: Order Added by Discern Expert. Performed By: #### 1 [id number], 1529116, 0508964, [id number], [id number] #### [facility] [address] [facility] [place] [address] BMPon 08-27-2023 Anion gap [Moles/Vol] 8 mmol/L Normal 6-16 [facility] Comment on above: Performed By: #### 1 [id number], 9172607, 4110055, 4228027, [id number] #### [facility] [address] [place] [address] BUN/Creat Ratio 16 No Units Normal 10-20 [facility] Comment on above: Performed By: #### 1 [id number], 1263585, 3186572, 6530210, [id number] #### [facility] [address] [place] [address] Calcium [Mass/Vol] 8.6 mg/dL Low 8.9-11.1 [facility] Comment on above: Performed By: #### 1 [id number], 2156983, 2270993, 3329074, [id number] #### [facility] [address] [place] [address] Chloride [Moles/Vol] 102 mmol/L Normal 101-111 [facility] Comment on above: Performed By: #### 1 [id number], 6231376, 2589221, 3003178, 27300749 #### [facility] [address] [place] [address] CO2 [Moles/Vol] 29 mmol/L Normal 21-31 [facility] Comment on above: Performed By: #### 1 [id number], 4217971, 7789601, 9667786, 47431150 #### [facility] [address] [place] [address] Creatinine [Mass/Vol] 0.8 mg/dL Normal 0.5-1.3 [facility] Comment on above: Performed By: #### 1 0637423, 2554805, 0298659, 3028024, 04077891 #### [facility] [address] [place] [address] Glucose [Mass/Vol] 89 mg/dL Normal 55-199 [facility] Comment on above: Performed By: #### 1 4572166, 8521866, 0890866, 5952881, 94867158 #### [facility] [address] [place] [address] Potassium [Moles/Vol] 3.9 mmol/L Normal 3.5-5.3 [facility] Comment on above: Performed By: #### 1 4027730, 1827643, 0613836, 3920036, 32231691 #### [facility] [address] [place] [address] Sodium [Moles/Vol] 135 mmol/L Normal 135-145 [facility] Comment on above: Performed By: #### 1 8242404, 8844834, 8710374, 9538674, 24924870 #### [facility] [address] [place] [address] Urea nitrogen [Mass/Vol] 13 mg/dL Normal 5-21 [facility] Comment on above: Performed By: #### 1 3628138, 3341109, 9943992, 8600385, 65222445 #### [facility] [address] [place] [address] CBC w/ Auto Diffon 4 Basophil Absolute 0.1 E9/L Normal 0.0-0.2 [facility] Comment on above: Performed By: #### 1 [id number], 6807889, 5072738, 3985890, 21395082 #### [facility] [address] [place] [address] Basophils/100 WBC (Bld) 1.0 % Normal 0.0-2.0 [facility] Comment on above: Performed By: #### 1 5015841, 1662739, 1293924, 6765747, 80513658 #### [facility] [address] [place] [address] Eos Absolute 0.3 E9/L Normal 0.0-0.5 [facility] Comment on above: Performed By: #### 1 5821920, 4755382, 5264121, 5573948, 50549540 #### [facility] [address] [place] [address] Eosinophils/100 WBC (Bld) 5.2 % Normal 0.0-8.0 [facility] Comment on above: Performed By: #### 1 1327010, 6451437, 1929567, 2803097, 44643146 #### [facility] [address] [place] [address] Erythrocyte distribution width (RBC) [Ratio] 13.7 % Normal 10.9-14.2 [facility] Comment on above: Performed By: #### 1 1213254, 5865018, 0096968, 3379456, 34180325 #### [facility] [address] [place] [address] Hematocrit (Bld) [Volume fraction] 38.0 % Normal 34.0-46.0 [facility] Comment on above: Performed By: #### 1 6998213, 4376228, 6881921, 8646811, 46671900 #### [facility] [address] [place] [address] Hemoglobin (Bld) [Mass/Vol] 12.6 g/dL Normal 12.0-16.0 [facility] Comment on above: Performed By: #### 1 6172158, 7844375, 6154666, 9881375, 76390286 #### [facility] [address] [place] [address] Lymph Absolute 2.8 E9/L Normal 1.0-4.0 [facility] Comment on above: Performed By: #### 1 1882400, 3978644, 0222264, 9463054, 12954419 #### [facility] [address] [place] [address] Lymphocytes/100 WBC (Bld) 45.7 % Normal 14.0-50.0 [facility] Comment on above: Performed By: #### 1 1537915, 6837373, 1040021, 5993283, 61630072 #### [facility] [address] [place] [address] MCH (RBC) [Entitic mass] 33.0 pg Normal 27.0-34.0 [facility] Comment on above: Performed By: #### 1 1891626, 7978811, 5329603, 2910087, 56758853 #### [facility] [address] [place] [address] MCHC (RBC) [Mass/Vol] 33.5 g/dL Normal 31.4-36.0 [facility] Comment on above: Performed By: #### 1 0763152, 5406104, 8281573, 8426732, 43257220 #### [facility] [address] [place] [address] MCV (RBC) [Entitic vol] 98.4 fL Normal 80.0-100.0 [facility] Comment on above: Performed By: #### 1 3344164, 5323298, 8264556, 0604436, 35961177 #### [facility] [address] [place] [address] Erath Absolute 0.6 E9/L Normal 0.2-1.0 [facility] Comment on above: Performed By: #### 1 3383592, 0797318, 4158366, 8047099, 46283367 #### [facility] [address] [place] [address] Monocytes/100 WBC (Bld) 10.5 % Normal 4.0-14.0 [facility] Comment on above: Performed By: #### 1 7887341, 9132525, 5065432, 7122545, 42327717 #### [facility] [address] [place] [address] Neutro Absolute 2.3 E9/L Normal 2.0-7.5 [facility] Comment on above: Performed By: #### 1 7742894, 1655523, 2372993, 8115441, 98652243 #### [facility] [address] [place] [address] Neutro Auto 37.6 % Normal 36.0-75.0 [facility] Comment on above: Performed By: #### 1 2576564, 6491391, 7089269, 3109876, 53004935 #### [facility] [address] [place] [address] Platelet 176.0 E9/L Normal 150.0-500.0 [facility] Comment on above: Performed By: #### 1 3737831, 9870786, 7179221, 9278493, 96047209 #### [facility] [address] [place] [address] Platelet mean volume (Bld) [Entitic vol] 7.6 fL Normal 6.4-10.8 [facility] Comment on above: Performed By: #### 1 3559777, 0580276, 2568797, 1583116, 87435005 #### [facility] [address] [place] [address] RBC 3.8 E12/L Low 4.3-5.9 [facility] Comment on above: Performed By: #### 1 0801425, 7626568, 5248941, 1314085, 78953318 #### [facility] [address] [place] [address] WBC 6.1 E9/L Normal 4.0-11.0 [facility] Comment on above: Performed By: #### 1 5333963, 6155717, 0914681, 4718950, 20796530 #### [facility] [address] [place] [address] Consent for Treatmenton 08-09 Consent for Treatment [id number] Normal [facility] ED Clinical Summaryon 2023 ED Clinical Summary [address] [address] ED Clinical Summary Person Information Name: CARIDAD [place] Age: 83 Years : 1940 Sex: Female Language: Palauan PCP: EDMOND PACHECO DO Marital Status: Phone: [phone] Visit Id: Visit Reason: Altered mental status; AMS Speciality: Acuity: 3 Enc Type: Observation Med Service: Emergency Arrival: 08/27/2023 18:31:49 Discharge: LOS: 000 03:43 Checkin: 08/27/2023 18:31:49 Checkout: 08/27/2023 22:14:01 Dispo Type: Admitted as IP to this [facility] EVENTS: Event Name Event Status Request Date/Time Start Date/Time Complete Date/Time Arrive Complete 08/27/2023 18:31:49 08/27/2023 18:31:49 08/27/2023 18:31:49 Document Home Meds Request 08/27/2023 18:31:49 Triage Complete 08/27/2023 18:31:49 08/27/2023 18:50:14 08/27/2023 18:50:14 Registration Complete 08/27/2023 18:34:14 08/27/2023 18:34:14 08/27/2023 18:34:14 Reg Complete Request 08/27/2023 18:34:14 Reg Bed Request Complete 08/27/2023 18:34:14 08/27/2023 18:34:14 08/27/2023 18:34:14 Bed Assign Complete 08/27/2023 18:40:32 08/27/2023 18:40:32 08/27/2023 18:40:32 Dr Exam Complete 08/27/2023 18:40:32 08/27/2023 18:53:02 08/27/2023 18:53:02 RN Exam Complete 08/27/2023 18:40:32 08/27/2023 19:04:45 08/27/2023 19:04:45 EKG Complete 08/27/2023 18:48:13 08/27/2023 18:56:30 Registration Complete 08/27/2023 18:53:02 08/27/2023 21:46:00 08/27/2023 21:46:00 Fall Risk Request 08/27/2023 19:04:45 Meds Admin Request 08/27/2023 19:20:43 Pending Labs Request 08/27/2023 19:20:43 Lab Complete 08/27/2023 19:20:43 08/27/2023 20:33:44 Urine Collect Complete 08/27/2023 19:20:43 08/27/2023 20:33:44 X-Ray Complete 08/27/2023 19:20:43 08/27/2023 19:29:09 08/27/2023 19:36:17 Wet Read Request 08/27/2023 19:36:17 Pending Labs Complete 08/27/2023 19:45:40 08/27/2023 19:45:40 08/27/2023 20:10:43 Lab Complete 08/27/2023 19:45:40 08/27/2023 19:45:40 08/27/2023 20:10:43 Consult Request 08/27/2023 21:05:26 Hospitalist Consult Request 08/27/2023 21:05:26 Meds Admin Complete 08/27/2023 21:29:15 08/27/2023 22:11:22 Bed Request Request 08/27/2023 21:42:23 Reg Bed Request Complete 08/27/2023 21:42:23 08/27/2023 21:46:01 08/27/2023 21:46:01 Admit Request 08/27/2023 21:42:23 Patient Care Request 08/27/2023 21:46:01 Patient Care Request 08/27/2023 21:46:02 ROSADO Form Request 08/27/2023 21:46:02 Patient Care Request 08/27/2023 21:46:02 Patient Care Request 08/27/2023 21:46:02 ADDRESS: [facility] [place] [phone] PHYS DOC NOTES: MEDICAL INFORMATION: Prescriptions Given: Medications to Continue with No Changes Other Medications aspirin (aspirin 81 mg Oral EC Tab) 1 Tablets By Mouth every day. busPIRone (busPIRone 15 mg Tab) 1 Tablets By Mouth 2 times a day. celecoxib (CeleBREX 200 mg Cap) 1 Capsules By Mouth 2 times a day. cetirizine (cetirizine 10 mg oral capsule) 1 Capsules By Mouth at bedtime. Refills: 0. escitalopram (Lexapro 20 mg Tab) 1 Tablets By Mouth every day. infliximab (Remicade) Dr Taylor. latanoprost ophthalmic (latanoprost Opth 0.005% Batool) 1 drop Both eyes daily. melatonin (Melatonin 1 mg oral tablet) 1 Milligram By Mouth once a day (at bedtime). Refills: 0. multivitamin (Multiple Vitamins Tab) 1 Tablets By Mouth every day. omeprazole (omeprazole 20 mg Cap-DR) 1 Capsules By Mouth once a day (in the morning). quetiapine (SEROquel 25 mg Tab) 1 Tablets By Mouth at bedtime. tizanidine (tiZANidine 4 mg Tab) 1 Tablets By Mouth at bedtime. States 1-2 tabs orally at bedtime. PATIENT EDUCATION INFORMATION: Instructions: Follow up: DIAGNOSIS: Altered mental status Normal [facility] ED Note-Nursingon 08-27-2023 ED Note-Nursing Pt's BP in 200's systolic. Physician aware. will continue to monitor. no new meds ordered at this time. Normal [facility] ED Note-Physicianon 08-27-19 ED Note-Physician Basic Information Time Seen: Vicente Rausch DO 08/27/2023 18:53 Chief Complaint dtr. brought pt. from [facility] d/t AMS x 1 week. hx dementia. dtr. concerned for UTI. pt. denies pain, not oriented to place or time. oriented to person only. pt. found wandering outside to at the assisted living. History of Present Illness Patient is an 83-year-old female with past medical history of dementia, V. tach presenting to the ED for evaluation of increasing confusion. Patient was admitted to the hospital last month for increasing confusion was placed in an assisted living facility. Patient's daughter states for the last week she has had increasing confusion and has been increasingly agitated. Patient was found outside wandering near the assisted living today and daughter is concerned that they do not have the ability to care for her anymore. They do note concern for possible UTI. Has not had any cough, fevers. Review of Systems A 10 point review of systems is negative except as noted above. Medical and Surgical History: Reviewed and noted Social history: Lives at home Tobacco: Denies Physical Exam Vitals & Measurements T: 36.9 ?C(Oral) HR: 92(Peripheral) RR: 20 BP: 207/108 SpO2: 93% HT: 152.4 cm WT: 88.4 kg BMI: 38.06 General: Well developed, non toxic appearing, no acute distress HEENT: Head atraumatic, Mucosa moist, hearing grossly normal Neck: No JVD, tracheal deviation Cardiac: Regular rate, rhythm, no murmurs, or gallops, 2+ radial pulses Respiratory: Lungs clear to auscultation B/L, normal respiratory effort Abdomen: Soft non tender, no rebound or guarding, no peritoneal signs Extremities: No edema noted in the LE B/L, no tenderness to palpation Neurologic: Alert and oriented x 2, speech clear Skin: No rashes or lesions Psych: Appropriate mood and behavior Medical Decision Making MEDICAL DECISION MAKING Number and Complexity of Problems Differential Diagnosis: [] [facility] Data External documents reviewed: [] My EKG interpretation: [] My CT interpretation: [] My X-ray interpretation: [] My Ultrasound interpretation: [] Decision rules/scores evaluated: [] Discussed with: [] Treatment and Disposition ED Course: Patient is an 83-year-old female presenting to the ED for evaluation of increasing confusion. Patient is nontoxic and on arrival, no acute distress. Laboratory evaluation is obtained, chest x-ray is ordered. Patient's laboratory evaluations unremarkable, chest x-ray is negative. Discussed findings with the patient and daughter unfortunately patient is unable to receive the care needed at her current living facility. Patient's daughter has reached out to several locked dementia units however is unable to get any placement over the weekend. The assisted living facility will not take patient back unless daughter is able to stay with her 24 hours. Due to this patient will be admitted for placement. Discussed the case with hospitalist who accepts the patient for admission. Shared decision making: [] Code status: [] Assessment/Plan Altered mental status (R41.82: Altered mental status, unspecified) Orders: Sodium Chloride 0.9% intravenous solution 1,000 mL, 1,000 mL, IV, 20 mL/hr, STAT, Start date 08/27/23 19:20:00 EST, 50 hour(s), Total volume (mL): 1,000, 88.4 kg, 1.93, m2 Basic Metabolic Panel CBC w/ Auto Diff ED Physician consult Hospitalist for continued care eGFR Hepatic Function Panel PT & PTT Troponin 0 Hr. Troponin 3 Hr. Troponin 6 Hr. Troponin 9 Hr. TSH With T4fr Reflex UA With Cult Reflex XR Chest Single View Disposition Plan Patient Discharge Condition Fair Discharge Disposition Admitted Discharge Prescription List Prescriptions No active prescription medications Follow-up No qualifying data available Problem List/Past Medical History Ongoing Alcohol use disorder Benign neoplasm of colon Cerebrovascular disease Dementia Glaucoma Herpes labialis History of ventricular tachycardia Immunodeficiency due to treatment with immunosuppressive medication Lumbar spondylosis Neurodermatitis Nocturia Obesity Obstructive sleep apnea syndrome Psoriatic arthritis Psychophysical visual disturbance Recurrent falls Urinary frequency Visual hallucinations Historical Deformity of metatarsal Diabetes mellitus without complication Ventricular tachycardia Procedure/Surgical History Closed reduction of nasal fracture (02/05/2021), Helene osteotomy second and third metatarsal. capsulotomy third metatarsophalangeal joint. Helene osteotomy second metatarsophalangeal joint. proximal interphalangeal joint arthroplasty left second digit and to the left third digit (09/19/2014), Cataract (2012), Back, Right hammer toe and bunionectomy, RIght knee arthroscopy, tubal ligation. Medications Inpatient Sodium Chloride 0.9% IV Batool 1000 mL 1,000 mL, 1000 mL, IV Home aspirin 81 mg Oral EC Tab, 81 mg= (more content not included)... Normal [facility] Comment on above: Result Comment: Elec tronically Signed By: Vicente Rausch DO\.br\Date and Time Signed: 08/27/23 21:18 EST ED Patient Education Noteon 08-27-2023 ED Patient Education Note Normal [facility] ED Patient Summaryon 024 ED Patient Summary [place] [id number] Patient Discharge Instructions Person Information Name: CARIDAD GLOVER I Age: 83 Years Arrival Date: 08/27/2023 18:31:49 Discharge Diagnosis: Altered mental status Primary Care Physician: EDMOND PACHECO DO Provider Information Primary Provider: Vicente Rausch DO Advanced Bleach Analyst:None The exam and treatment you received in the Emergency Department were for an urgent problem and are not intended as complete care. It is important that you follow up with a doctor, nurse practitioner, or physician?s reference library assistant for ongoing care. If your symptoms become worse or you do not improve as expected and you are unable to reach your usual health care provider, you should return to the Emergency Department. We are available 24 hours a day. CARIDAD GLOVER I has been given the following list of patient education materials, prescriptions and follow-up instructions: Follow-up Instructions: In the event that this physician does not participate in your insurance network, please consult with your insurance company to find a nearby participating provider. Patient Education Materials: A MESSAGE TO ALL PATIENTS REGARDING OPIOIDS PRESCRIPTION OPIOIDS: WHAT YOU NEED TO KNOW Prescription opioids can be used to help relieve [id number] pain and are often prescribed following a surgery or injury, or for certain health conditions. These medications can be an important part of the treatment but also come with serious risks. It is important to work with your healthcare provider to make sure you are getting the safest, most effective care. WHAT ARE THE RISKS AND SIDE EFFECTS OF OPIOID USE? Prescription opioids carry serious risks of addiction and overdose, especially with prolonged use. An opioid overdose, often marked by slowed breathing, can cause sudden . The use of prescription opioids can have a number of side effects as well, even when taken as directed: ? Tolerance?meaning you might need to take more of the medication for the same pain relief ? Physical dependence?meaning you have symptoms of withdrawal when a medication is stopped ? Increased sensitivity to pain ? Constipation ? Nausea, vomiting, and dry mouth ? Sleepiness and dizziness ? Confusion ? Depression ? Low levels of testosterone that can result in lower sex drive, energy, and strength ? Itching and sweating RISKS ARE GREATER WITH: ? History of drug misuse, substance use disorder, or overdose ? Mental health conditions (such as depression or anxiety) ? Sleep apnea ? Older age (65 years and older) ? Avoid alcohol while taking prescription opioids. Also, unless specifically advised by your health care provider, medications to avoid include: ? Benzodiazepines (such as Xanax or Valium) ? Muscle relaxants (such as Soma or Flexeril) ? Hypnotics (such as Ambien or Lunesta) ? Other prescription opioids KNOW YOUR OPTIONS Talk to your health care provider about ways to manage your pain that don?t involve prescription opioids. Some of these options may actually work better and have fewer risks and side effects. Options may include: ? Pain relievers such as acetaminophen, ibuprofen, and naproxen ? Some medication that are also used for depression or seizures ? Physical therapy and exercise ? Cognitive behavioral therapy, a psychological, goal-directed approach, in which patients learn how to modify physical, behavioral, and emotional triggers of pain and stress. IF YOU ARE PRESCRIBED OPIOIDS FOR PAIN: ? Never take opioids in greater amounts or more often than prescribed. ? Follow up with your primary health care provider. o Work together to create a plan on how to manage your pain. o Talk about ways to help manage your pain that don?t involve prescription opioids. o Talk about any and all concerns and side effects. ? Help prevent misuse and abuse o Never sell or share prescription opioids. o Never use another person?s prescription opioids. ? Store prescription opioids in a secure place and out of reach of others (this may include visitors, children, friends, and family). ? Safely dispose of unused prescription opioids: Find your community drug take-back program or your pharmacy mail-back program, or flush them down the toilet, following guidance from the Food and Drug Administration (www.fda.gov/Drugs/Res ourcesForYou). ? Visit www.cdc.gov/drugoverdo se to learn about the risks of opioids abuse and overdose. ? If you believe you may be struggling with addiction, tell your health pharmacist critical care and ask for guidance or call SAMHSA?S National Helpline at 9-830-343-HELP. v Source: [place] Department of Health and Human Services/Center for Disease Control & Prevention [facility] Medications Given: Medication Dose Route busPIR (more content not included)... Normal [facility] Hep Func Panelon 08-27-2023 Albumin [Mass/Vol] 3.2 g/dL Low 3.3-5.0 [facility] Comment on above: Performed By: #### 1 [id number], 4572755, 1100329, 6973942, 10599255 #### [facility] [address] [place] [address] Albumin/Globulin [Mass ratio] 0.8 {ratio} Low 1.1-2.2 [facility] Comment on above: Performed By: #### 1 0123086, 8282368, 3456612, 8013264, 57276916 #### [facility] [address] [place] [address] Alk Phos 86 Int._Unit/L Normal 21-98 [facility] Comment on above: Performed By: #### 1 5688477, 8319322, 2090383, 4739205, 34060817 #### [facility] [address] [place] [address] ALT 26 Int._Unit/L Normal 6-46 [facility] Comment on above: Performed By: #### 1 3783032, 1172245, 3899228, 8119872, 69880850 #### [facility] [address] [place] [address] AST 41 Int._Unit/L Normal 5-43 [facility] Comment on above: Performed By: #### 1 4584882, 0198146, 9248714, 3342211, 70557936 #### [facility] [address] [place] [address] Bili Direct 0.2 mg/dL Normal 0.0-0.4 [facility] Comment on above: Performed By: #### 1 1577009, 4596238, 2667685, 1282317, 45154994 #### [facility] [address] [place] [address] Bili Indirect 0.5 mg/dL Normal 0.1-0.9 [facility] Comment on above: Performed By: #### 1 1378596, 1839799, 5331718, 8624528, 00436816 #### [facility] [address] [place] [address] Bili Total 0.7 mg/dL Normal 0.0-1.1 [facility] Comment on above: Performed By: #### 1 0186204, 9965528, 5052671, 8416543, 02816455 #### [facility] [address] [place] [address] Globulin (S) [Mass/Vol] 4.1 g/dL High 1.4-4.0 [facility] Comment on above: Performed By: #### 1 3042715, 2972403, 5602782, 9381595, 05074802 #### [facility] [address] [place] [address] Protein [Mass/Vol] 7.3 g/dL Normal 6.0-7.8 [facility] Comment on above: Performed By: #### 1 6371573, 3380782, 0582735, 0688182, 60369290 #### [facility] [address] [place] [address] Monitor Recordon 08-27-2023 Monitor Record [id number]. 00TIFF Normal [facility] PT & PTTon 08-27-2023 aPTT Coag (PPP) [Time] 33.1 second(s) Normal 25.1-36.5 [facility] Comment on above: Result Comment: Para meter 15 days - 4 weeks 1 - 5 months 6 - 11 months 1 - 5 years 6 - 10 years 11 - 17 years PTT Mean: 35.4 (27.6-45.6) Mean: 33.5 (24.8-40.7) Mean: 32.4 (25.1-40.7) Mean: 31.6 (24.0-39.2) Mean: 31.6 (26.9-38.7) Mean: 31.0 (24.6-38.4) Pediatric Reference ranges were obtained from a study by stephanie Clayton prepared from 1437 samples obtained at 7 different centers using the same coagulation reagent and instrumentation as [facility]. Currently there are no coagulation studies available worldwide for children to 14 days, and no normal ranges. Heparin therapeutic range (represented by Anti-Factor Xa activity of 0.2 - 0.4 U/mL) corresponds to PTT of 56.6 - 109.0 sec. Performed By: #### 1 3058749, 0776499, 0834342, 9556759, 40547553 #### [facility] [address] [place] [address] INR Coag (PPP) [Relative time] 1.1 {INR} Invalid Interpretation Code [facility] Comment on above: Result Comment: INR results are specifically intended to assess patients stabilized on long-term Anticoagulation therapy suggested INR?s ?Less Intensive Anticoagulation? 2.0 ? 3.0 Conventional Range 3.0 ? 4.5 Performed By: #### 1 0298184, 4178483, 1252390, 3868566, 85523901 #### [facility] [address] [place] [address] PT Coag (PPP) [Time] 12.0 second(s) Normal 9.4-12.5 [facility] Comment on above: Result Comment: 15 d ays - 4 weeks 1 - 5 months 6 -11 months 1 ? 5 years 6 ? 10 years 11 -17 years Mean: 11.2 (9.5 ? 12.6) Mean: 11.0 (9.7 ? 12.8) Mean: 11.0 (9.8 ? 13.0) Mean: 11.3 (9.9 ? 13.4) Mean: 11.7 (10.0 ? 14.6) Mean: 11.8 (10.0 - 14.1) Pediatric Reference ranges were obtained from a study by stephanie Clayton prepared from 1437 samples obtained at 7 different centers using the same coagulation reagent and instrumentation as [facility]. Currently there are no coagulation studies available worldwide for children to 14 days, and no normal ranges. Performed By: #### 1 6336131, 3667234, 9069528, 7231364, 66933573 #### [facility] [address] [place] [address] TSH With T4fr Reflexon 08-27 TSH Qn 1.53 m[IU]/L Normal 0.34-5.60 [facility] Comment on above: Performed By: #### 1 7837076, 6995487, 1247739, 2536637, 38151157 #### [facility] [address] [place] [address] Troponin 0 Hr.on 08-27-2023 Troponin 13.60 pg/mL Normal 10.10-27.10 [facility] Comment on above: Result Comment: The 95% CI (Confidence Interval) PPV (Positive Predictive Value) for myocardial infarction in females is 38 pg/mL, in males 51 pg/mL. The results should be used in conjunction with clinical conditions of myocardial infarction. (Access High Sensitivity Troponin I Instructions For Use, Qire, March 2018) Performed By: #### 1 4395800, 2016461, 9078560, 9231931, 22505388 #### [facility] [address] [place] [address] Troponin 3 Hr.on 08-27-2023 Troponin 15.40 pg/mL Normal 10.10-27.10 [facility] Comment on above: Result Comment: The 95% CI (Confidence Interval) PPV (Positive Predictive Value) for myocardial infarction in females is 38 pg/mL, in males 51 pg/mL. The results should be used in conjunction with clinical conditions of myocardial infarction. (Access High Sensitivity Troponin I Instructions For Use, Qire, March 2018) Performed By: #### 1 1773962, 0471171, 6363137, 6672459, 56635755 #### [facility] [address] [place] [address] UA With Cult Reflexon 2023 Bilirubin Ql (U) Negative Normal Negative [facility] Comment on above: Performed By: #### 1 1934729, 9986945, 3671300, 5245701, 15744216 #### [facility] [address] [place] [address] Clarity (U) CLEAR Normal Clear [facility] Comment on above: Performed By: #### 1 5602531, 2160376, 8384635, 6476831, 02602845 #### [facility] [address] [place] [address] Color (U) YELLOW Normal Yellow [facility] Comment on above: Performed By: #### 1 8432748, 9401026, 9518664, 2535742, 02050476 #### [facility] [address] [place] [address] Epithelial cells.squamous LM.HPF (Urine sed) [#/Area] 0-2 Normal 0-2 [facility] Comment on above: Performed By: #### 1 3906439, 8331036, 0177398, 5581620, 15494011 #### [facility] [address] [place] [address] Glucose Test strip (U) [Mass/Vol] Negative Normal Negative [facility] Comment on above: Performed By: #### 1 7526001, 9452895, 3879717, 6018308, 95574317 #### [facility] [address] [place] [address] Hemoglobin Ql (U) Negative Normal Negative [facility] Comment on above: Performed By: #### 1 3935480, 0529827, 1549578, 3549255, 98943474 #### [facility] [address] [place] [address] Ketones (U) [Mass/Vol] Negative Normal Negative [facility] Comment on above: Performed By: #### 1 9513394, 5593003, 9946433, 0538962, 37998902 #### [facility] [address] [place] [address] [place].plasma/[place]. RBC (Bld) [Mass ratio] 0-3 Normal 0-3 [facility] Comment on above: Performed By: #### 1 5734608, 9385116, 9751857, 4743301, 02662333 #### [facility] [address] [place] [address] Nitrite Ql (U) Negative Normal Negative [facility] Comment on above: Performed By: #### 1 9388490, 6698957, 2727203, 9659876, 99102591 #### [facility] [address] [place] [address] pH (U) 6.5 [pH] Invalid Interpretation Code 5.0-9.0 [facility] Comment on above: Performed By: #### 1 9817657, 7039320, 7315660, 0548598, 34146597 #### [facility] [address] [place] [address] Protein (U) [Mass/Vol] Negative Normal Negative [facility] Comment on above: Performed By: #### 1 0413175, 2312668, 6829336, 8487399, 27394350 #### [facility] [address] [place] [address] Specific gravity (U) [Rel density] 1.010 Invalid Interpretation Code 1.005-1.030 [facility] Comment on above: Performed By: #### 1 0668612, 3137403, 0671083, 0023572, 76942568 #### [facility] [address] [place] [address] Type of Urine collection method Clean Catch Normal [facility] Comment on above: Performed By: #### 1 0187959, 8360377, 1584957, 4871072, 47681008 #### [facility] [address] [place] [address] Urobilinogen Qn (U) 0.2 {[place]uba'U}/dL Normal 0.0-1.0 [facility] Comment on above: Performed By: #### 1 3991771, 9161718, 9467324, 3173485, 03716171 #### [facility] [address] [place] [address] WBC Auto Ql (U) Negative Normal Negative [facility] Comment on above: Performed By: #### 1 3347423, 0674971, 9915234, 1400208, 31574682 #### [facility] [address] [place] [address] WBC LM.HPF (Urine sed) [#/Area] 0-5 Normal 0-5 [facility] Comment on above: Performed By: #### 1 3015096, 6494423, 9466459, 8314006, 97114884 #### [facility] [address] [place] [address] eGFRon 08-27-2023 eGFR 74 mL/min/1.73 m2 Normal >=59 [facility] Comment on above: Order Comment: Order added by Discern Expert. Performed By: #### 1 2942339, 1465191, 1772745, 1385716, 45217822 #### [facility] [address] [place] [address] [facility] Record[facility] 07-26 [facility] [id number]. 00TIFF Normal [facility] Family Medicine Office/Clini c Noteon 07-21-2023 Family Medicine Office/Clinic Note History of Present Illness TCU DISCHARGE after TCU ADMISSION Inpatient [facility] 07/10?6, 1 day history AMS and dementia. MRI brain showed no acute findings, started Seroquel to help sleep-wake cycle . Seen by neurology, history progressive dementia. Recent neuropsychological eval a month ago showing progression from mild to moderate dementia. Past and current hx of hallucinations that begin as seeing patterns on lyle. MRI showed no acute changes, chronic small vessel ischemic changes, remote lacunar infarcts. Reviewing H&P, past history of PSVT and nonsustained ventricular tachycardia for which she has been on metoprolol. Aricept has been discontinued due to possible bradycardia. Namenda caused dizziness. Laboratories are essentially unremarkable, no UTI identified. Not felt to have access to alcohol recently. Patient had an uneventful skilled therapy stay. Plan to discharge 07/22/2023 to [facility]. PMHx- dementia, OA, anxiety depression, DM (?) no meds, A1c 5.3, NAWAF untreated,psoriatic arthritis on Remicade. Nonsustained VT on Holter Dec, 2021, zoya obrien. Hx alcohol abuse. nonsmoker. Hx lumbr surgeries, toe surgeries PCP Dr. Edmond Pacheco Psychiatry Dr. Faustin Neurologist LAUREN Rheumatology Dr. 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 Dementia (F03.90: Unspecified dementia, unspecified severity, without behavioral disturbance, psychotic disturbance, mood disturbance, and anxiety) vascular with alcohol component vs Lewey Body vs Alzheimers waxing/waning behavioral affects, no underlying metabolic cause identified had adverse effects with Aricept, Namenda continue Seroquel 25mg qHS to manage symptoms Completed ST rehab stay 2. Cerebrovascular disease (I67.9: Cerebrovascular disease, unspecified) mild small white matter changes, suggestion of lacunar infarcts started asa 81 on admission for the lacunar hx. 3. History of ventricular tachycardia (Z86.79: Personal history of other diseases of the circulatory system) 48 Hr Holter not completed due to daughter's refusal suggest possibly in the future if bradycardia persists will leave off metoprolol ER daily continue to monitor systolic BP, sl elevated on admission 4. 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) on Cetirizine, BuSpar, Escitalopram Follow-up No qualifying data available Problem List/Past Medical History Ongoing Alcohol use disorder Benign neoplasm of colon Cerebrovascular disease Dementia Glaucoma Herpes labialis History of ventricular tachycardia Immunodeficiency due to treatment with immunosuppressive medication Lumbar spondylosis Neurodermatitis Nocturia Obesity Obstructive sleep apnea syndrome Psoriatic arthritis Psychophysical visual disturbance Recurrent falls Urinary frequency Visual hallucinations Historical Deformity of metatarsal Diabetes mellitus without complication Ventricular tachycardia Procedure/Surgical History Closed reduction of nasal fracture (02/05/2021), Helene osteotomy second and third metatarsal. capsulotomy third metatarsophalangeal joint. Helene osteotomy second metatarsophalangeal joint. proximal interphalangeal joint arthroplasty left second digit and to the left third digit (09/19/2014), Cataract (2012), Back, Right hammer toe and bunionectomy, RIght knee arthroscopy, tubal ligation. Medications aspirin 81 mg Oral EC Tab, 81 mg= 1 tab(s), Oral, Daily busPIRone 15 mg Tab, 15 mg= 1 tab(s), Oral, BID CeleBREX 200 mg Cap, 200 mg= 1 cap(s), Oral, BID cetirizine 10 mg oral capsule, 10 mg= 1 cap(s), Oral, Bedtime latanoprost Opth 0.005% Batool, See Instructions Lexapro 20 mg Tab, 20 mg= 1 tab(s), Oral, Daily Melatonin 1 mg oral tablet, 1 mg, Oral, Once a day (at bedtime) Multiple Vitamins Tab, 1 tab(s), Oral, Daily omeprazole 20 mg Cap-DR, 20 mg= 1 cap(s), Oral, qAM Remicade, Pre-arrival medication SEROquel 25 mg Tab, 25 mg= 1 tab(s), Oral, Bedtime tiZANidine 4 mg Tab, 4 mg= 1 tab(s), Oral, Bedtime Allergies cortisone (severe headache) methylPREDNISolone (Unknown, Other: See Comments) Social History Alcohol - High Risk, 09/29/2021 Current, Drinks 1 Non-alcoholic Beer a day, Daily, 03/10/2023 Current, Beer, 3-5 times per week, 12/12/2021 Current, Beer, Daily, 09/29/2021 Substance Abuse - Denies Substance Abuse, 02/08/2014 Tobacco - Denies Tobacco Use, 02/08/2014 Never Smokeless Tobacco Use:., 12/12/2021 Never (less than 100 in lifetime) Tobacco Use:. Never Smokeless Tobacco Use:., 03/29/2020 Family History Family history is negative Immunizations Vaccine Date Status Comments influenza virus vaccine, inactivated 04/20/2022 Recorded p (more content not included)... Normal [facility] Comment on above: Result Comment: Elec tronically Signed By: Cyndi HOBSON, Chaparro Vann.br\Date and Time Signed: 07/21/23 10:03 EST UA With Cult Reflexon 12-12- 2023 Bacteria LM Ql (Urine sed) TRACE Normal Trace [facility] Comment on above: Performed By: #### 1 0344748, 2146323, 2732693, 3109615, 46718960 #### [facility] [address] [place] [address] Bilirubin Ql (U) Negative Normal Negative [facility] Comment on above: Performed By: #### 1 7296697, 7875046, 4314086, 3255071, 83392831 #### [facility] [address] [place] [address] Clarity (U) CLEAR Normal Clear [facility] Comment on above: Performed By: #### 1 2518284, 1867910, 4587504, 5419086, 39402646 #### [facility] [address] [place] [address] Color (U) YELLOW Normal Yellow [facility] Comment on above: Performed By: #### 1 6234798, 9466676, 8526317, 9476383, 70852852 #### [facility] [address] [place] [address] Epithelial cells.squamous LM.HPF (Urine sed) [#/Area] 0-2 Normal 0-2 [facility] Comment on above: Performed By: #### 1 1692549, 8115641, 5251409, 2378853, 54875275 #### [facility] [address] [place] [address] Glucose Test strip (U) [Mass/Vol] Negative Normal Negative [facility] Comment on above: Performed By: #### 1 1284598, 1616514, 9099898, 6161053, 80855963 #### [facility] [address] [place] [address] Hemoglobin Ql (U) Negative Normal Negative [facility] Comment on above: Performed By: #### 1 6406693, 2811144, 0567747, 7868243, 58721183 #### [facility] [address] [place] [address] Ketones (U) [Mass/Vol] Negative Normal Negative [facility] Comment on above: Performed By: #### 1 3936783, 1563409, 0861772, 8293336, 37767772 #### [facility] [address] [place] [address] [place].plasma/[place]. RBC (Bld) [Mass ratio] 0-3 Normal 0-3 [facility] Comment on above: Performed By: #### 1 6933651, 8685371, 3363321, 0527240, 51504776 #### [facility] [address] [place] [address] Nitrite Ql (U) Negative Normal Negative [facility] Comment on above: Performed By: #### 1 6048581, 2462099, 9890810, 9926611, 68169392 #### [facility] [address] [place] [address] pH (U) 6.0 [pH] Invalid Interpretation Code 5.0-9.0 [facility] Comment on above: Performed By: #### 1 7627950, 1153412, 0463294, 0661083, 34744224 #### [facility] [address] [place] [address] Protein (U) [Mass/Vol] Negative Normal Negative [facility] Comment on above: Performed By: #### 1 7442445, 0124423, 2760445, 0631070, 11155903 #### [facility] [address] [place] [address] Specific gravity (U) [Rel density] 1.020 Invalid Interpretation Code 1.005-1.030 [facility] Comment on above: Performed By: #### 1 3018846, 4732416, 2698205, 9186803, 86058491 #### [facility] [address] [place] [address] Type of Urine collection method Clean Catch Normal [facility] Comment on above: Performed By: #### 1 2913411, 0376891, 6103666, 0503302, 12258538 #### [facility] [address] [place] [address] Urobilinogen Qn (U) 0.2 {[place]'U}/dL Normal 0.0-1.0 [facility] Comment on above: Performed By: #### 1 0659451, 5715365, 0191808, 2036772, 20740465 #### [facility] [address] [place] [address] WBC Auto Ql (U) Negative Normal Negative [facility] Comment on above: Performed By: #### 1 8710704, 8994828, 8482189, 6252645, 02966479 #### [facility] [address] [place] [address] WBC LM.HPF (Urine sed) [#/Area] 0-5 Normal 0-5 [facility] Comment on above: Performed By: #### 1 6357425, 8882867, 3011462, 7198405, 91822350 #### [facility] [address] [place] [address] URINALYSISOrdered By: Lizet Saab on 07-19-2023 Bacteria LM Ql (Urine sed) Trace /HPF Normal Trace/HPF [facility] UA Auto SS Bilirubin Ql (U) Negative (07/19/23 8:33 AM) Normal Negative [facility] UA Auto SS Clarity (U) Clear (07/19/23 8:33 AM) Normal Clear [facility] UA Auto SS Color (U) Yellow (07/19/23 8:33 AM) Normal Yellow [facility] UA Auto SS Epithelial cells.squamous LM.HPF (Urine sed) [#/Area] 0-2 /HPF Normal 0-2/HPF [facility] UA Aut o SS Glucose Test strip (U) [Mass/Vol] Negative (07/19/23 8:33 AM) Normal Negative [facility] UA Auto SS Hemoglobin Ql (U) Negative (07/19/23 8:33 AM) Normal Negative [facility] UA Auto SS Ketones (U) [Mass/Vol] Negative (07/19/23 8:33 AM) Normal Negative [facility] UA Auto SS [place].plasma/[place]. RBC (Bld) [Mass ratio] 0-3 /HPF Normal 0-3/HPF [facility] UA A uto SS Nitrite Ql (U) Negative (07/19/23 8:33 AM) Normal Negative [facility] UA Auto SS pH (U) 6.0 *NA* (07/19/23 8:33 AM) Invalid Interpretation Code 5.0 - 9.0 [facility] UA Auto SS Protein (U) [Mass/Vol] Negative (07/19/23 8:33 AM) Normal Negative [facility] UA Auto SS Specific gravity (U) [Rel density] 1.020 *NA* (07/19/23 8:33 AM) Invalid Interpretation Code 1.005 - 1.030 [facility] UA Auto SS UA Spec Desc Clean Catch (07/19/23 8:33 AM) Normal [facility] UA Auto SS Urobilinogen Qn (U) 0.3087893 {[place]'U}/dL Normal 0.0 - 1.0 EU/dL [facility] UA Auto SS WBC Auto Ql (U) Negative (07/19/23 8:33 AM) Normal Negative [facility] UA Auto SS WBC LM.HPF (Urine sed) [#/Area] 0-5 /HPF Normal 0-5/HPF [facility] UA Auto SS Family Medicine Office/Clini c Noteon 07-15-2023 Family Medicine Office/Clinic Note History of Present Illness TCU ADMIT from [facility] 07/10?6 1 day history AMS on dementia. MRI brain no acute findings, started Seroquel to help sleep-wake cycle . Seen by neurology, history progressive dementia. Recent neuropsychological eval a month ago showing progression from mild to moderate dementia. Past and current hx of hallucinations that begin as seeing patterns on lyle. MRI no acute changes, chronic small vessel ischemic changes, remote lacunar infarcts. Reviewing H&P, past history of PSVT and nonsustained ventricular tachycardia for which she has been on metoprolol. Has previously scheduled Holter monitor (PCP) for today looking for recurrence of arrhythmia? Aricept has been discontinued due to possible bradycardia. Namenda caused dizziness. Laboratories are essentially unremarkable, no UTI identified. Not felt to have access to alcohol recently. PMHx- dementia, OA, anxiety depression, DM (?) no meds, A1c 5.3, NAWAF untreated,psoriatic arthritis on Remicade. Nonsustained VT on Holter Dec, 2021, nl timothyiscan. Hx alcohol abuse. nonsmoker. Hx lumbr surgeries, toe surgeries PCP Dr. Edmond Pacheco Psychiatry Dr. Faustin Neurologist LAUREN Rheumatology Dr. Taylor Dtr Linh Riley, AUTOMATED LOGISTICS SPECIALIST Physical Exam Pleasantly confused obese WF laying in bed, awakens easily. oriented to name. Place is hospital after thinking about it, season ?, Holiday [place]. Month- long pause, July with cueing. Year 2022. President- [place] (was recently in news with 's ). Lungs CTA Ht RRR wo murmur Abd obese, nondistended no distal edema left toes 2, 3 drop down skin looks to be clear (prior hx excoriations) Assessment/Plan 1. Dementia (F03.90: Unspecified dementia, unspecified severity, without behavioral disturbance, psychotic disturbance, mood disturbance, and anxiety) vascular with alcohol component vs Lewey Body vs Alzheimers adverse effects with aricept, namenda waxing/waning behavioral affects, no underlying metabolic cause identified cont seroquel qHS to manage symptoms, if is Lewey Body watch for worsening ST rehab stay may not be appropriate to live alone anymore? 2. Cerebrovascular disease (I67.9: Cerebrovascular disease, unspecified) mild small white matter changes, suggestion of lacunar infarcts Dr Drew started asa 81 on admission for the lacunar hx. control of BP would be important. 3. History of ventricular tachycardia (Z86.79: Personal history of other diseases of the circulatory system) 48 Hr Holter was for today, dtr declined since was on telemetry in hospital will leave off metoprolol ER daily then? She reportedly had some florian issues which may be why the Holter in first place? watch BP then, systolic sl elevated on admission (149/80, 148/81) 4. 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 Psoriatic arthritis (L40.50: Arthropathic psoriasis, unspecified) Pt doesn't think is still on this, will be held anyway while here. DNR [facility] Follow-up No qualifying data available Problem List/Past Medical History Ongoing Alcohol use disorder Benign neoplasm of colon Cerebrovascular disease Dementia Glaucoma Herpes labialis History of ventricular tachycardia Immunodeficiency due to treatment with immunosuppressive medication Lumbar spondylosis Neurodermatitis Nocturia Obesity Obstructive sleep apnea syndrome Psoriatic arthritis Psychophysical visual disturbance Recurrent falls Urinary frequency Visual hallucinations Historical Deformity of metatarsal Diabetes mellitus without complication Ventricular tachycardia Procedure/Surgical History Closed reduction of nasal fracture (02/05/2021), Helene osteotomy second and third metatarsal. capsulotomy third metatarsophalangeal joint. Helene osteotomy second metatarsophalangeal joint. proximal interphalangeal joint arthroplasty left second digit and to the left third digit (09/19/2014), Cataract (2012), Back, Right hammer toe and bunionectomy, RIght knee arthroscopy, tubal ligation. Medications aspirin 81 mg Oral EC Tab, 81 mg= 1 tab(s), Oral, Daily busPIRone 15 mg Tab, 15 mg= 1 tab(s), Oral, BID CeleBREX 200 mg Cap, 200 mg= 1 cap(s), Oral, BID cetirizine 10 mg oral capsule, 10 mg= 1 cap(s), Oral, Bedtime latanoprost Opth 0.005% Batool, See Instructions Lexapro 20 mg Tab, 20 mg= 1 tab(s), Oral, Daily Melatonin 1 mg oral tablet, 1 mg, Oral, Once a day (at bedtime) Multiple Vitamins Tab, 1 tab(s), Oral, Daily omeprazole 20 mg Cap-DR, 20 mg= 1 cap(s), Oral, qAM Remicade, Pre-arrival medication SEROquel 25 mg Tab, 25 mg= 1 tab(s), Oral, Bedtime tiZANidine 4 mg Tab, 4 mg= 1 tab(s), Oral, Bedtime Allergies cortisone (severe headache) methylPREDNISolone (Unknown, Other: See Comments) Social History Alcohol - High Risk, 09/29/2021 Current, Drinks 1 Non-alcoholic Beer a day, Daily, 03/10/2023 Current, Beer, 3-5 times per week, 12/12/2021 Current, Beer, Daily, 0 (more content not included)... [facility] Comment on above: Result Comment: Elec tronically Signed By: PASCALE RODRIGUEZ, Inderjit\.br\Date and Time Signed: 07/15/23 10:14 EST Discharge Instructionson Discharge Instructions [id number]. 00TIFF [facility] Insurance Correspondence Off iceon 07-14-2023 Insurance Correspondence Office [id number]. 00TIFF [facility] Medication Listson 3 Medication Lists [id number]. 00TIFF [facility] Transfer Documentson 023 Transfer Documents [id number]. 00TIFF [facility] BMPon 07-13-2023 Anion gap [Moles/Vol] 5 mmol/L Low 6-16 [facility] Comment on above: Performed By: #### 2 [id number], [id number] ####[facility] [address] [place] [address] Calcium [Mass/Vol] 8.6 mg/dL Low 8.9-11.1 [facility] Comment on above: Performed By: #### 2 [id number], [id number] ####[facility] [address] [place] [address] Chloride [Moles/Vol] 105 mmol/L Normal 101-111 [facility] Comment on above: Performed By: #### 2 [id number], [id number] ####[facility] [address] [place] [address] CO2 [Moles/Vol] 29 mmol/L Normal 21-31 [facility] Comment on above: Performed By: #### 2 [id number], [id number] ####[facility] [address] [place] [address] Creatinine [Mass/Vol] 0.6 mg/dL Normal 0.5-1.3 [facility] Comment on above: Performed By: #### 2 [id number], [id number] ####[facility] [address] [place] [address] Glucose [Mass/Vol] 98 mg/dL Normal 55-199 [facility] Comment on above: Result Comment: If t his glucose result represents a fasting glucose, interpretation should refer to the following reference range: 55-99 mg/dL Performed By: #### 2 [id number], [id number] ####[facility] [address] [place] [address] Potassium [Moles/Vol] 4.0 mmol/L Normal 3.5-5.3 [facility] Comment on above: Performed By: #### 2 [id number], [id number] ####[facility] [address] [place] [address] Sodium [Moles/Vol] 135 mmol/L Normal 135-145 [facility] Comment on above: Performed By: #### 2 [id number], [id number] ####[facility] [address] [place] [address] Urea nitrogen [Mass/Vol] 16 mg/dL Normal 5-21 [facility] Comment on above: Performed By: #### 2 [id number], [id number] ####[facility] [address] [place] [address] Urea nitrogen/Creatinine [Mass ratio] 27 No Units High 10-20 [facility] Comment on above: Performed By: #### 2 [id number], [id number] ####[facility] [address] [place] [address] CHEMISTRYOrdered By: SYSTEM SYSTEM on 07-13-2023 Anion gap [Moles/Vol] 5 mmol/L Low 6 - 16 mEq/L [facility] Remisol Calcium [Mass/Vol] 8.6 mg/dL Low 8.9 - 11. 1 mg/dL [facility] Chloride [Moles/Vol] 105 mmol/L Normal 101 - 1 11 mmol/L [facility] CO2 [Moles/Vol] 29 mmol/L Normal 21 - 31 mmol/L [facility] Creatinine [Mass/Vol] 0.6 mg/dL Normal 0.5 - 1.3 mg/dL [facility] GFR/1.73 sq M.predicted among non-blacks MDRD (S/P/Bld) [Vol rate/Area] 91 mL/min/1.73 m2 Normal >=59mL/min/ 1.73 m2 [facility] Chem S Comment on above: Interpretive Data: C hronic kidney disease could be indicated at eGFR's of less than 60 mL/min/1.73m2. Kidney failure is indicated at less than 15 mL/min/1.73m2. Glucose [Mass/Vol] 98 mg/dL Normal 55 - 199 mg/dL [facility] Remisol Comment on above: Interpretive Data: I f this glucose result represents a fasting glucose, interpretation should refer to the following reference range: 55-99 mg/dL Potassium [Moles/Vol] 4.0 mmol/L Normal 3.5 - 5.3 mmol/L [facility] Remisol Sodium [Moles/Vol] 135 mmol/L Normal 135 - 145 mmol/L [facility] Remisol Urea nitrogen [Mass/Vol] 16 mg/dL Normal 5 - 21 mg/dL [facility] Remisol Urea nitrogen/Creatinine [Mass ratio] 27 mg/mg High 10 - 20 [facility] Remisol Discharge Note-Nursingon Discharge Note-Nursing CARIDAD GLOVER I :1940 Visit Date:07/10/2023 Inpatient Discharge Instructions Your Care Team Admitting Physician - Reuben DREW DO Consulting Physician - Austyn Campos MD Reason for Your Visit significant change in mental status - daughter Linh Your Diagnosis Acute encephalopathy History of dementia Hyponatremia Anxiety and depression Compulsive skin picking Lumbar spinal stenosis History of alcohol use Hypertension History of PSVT (paroxysmal supraventricular tachycardia) Chronic GERD Obstructive sleep apnea Psoriatic arthritis Obesity Encounter for deep vein thrombosis (DVT) prophylaxis Altered mental status Depression, unspecified Tests Performed Ammonia Level Automated Diff BMP BMP Capillary Glucose POC CBC w/ Auto Diff eGFR Ethanol Level Hepatic Function Panel Sedimentation Rate Automated Toxicology Drug Screen Urine Troponin 0 Hr. Troponin 3 Hr. Troponin 6 Hr. Troponin 9 Hr. TSH With T4fr Reflex UA With Cult Reflex Vitamin B12 Level CT Head or Brain w/o Contrast MRI Brain w/o Contrast XR Chest Single View This Is Your Medications List aspirin (aspirin 81 mg Oral EC Tab) busPIRone (busPIRone 15 mg Tab) celecoxib (CeleBREX 200 mg Cap) cetirizine (cetirizine 10 mg oral capsule) escitalopram (Lexapro 20 mg Tab) infliximab (Remicade) latanoprost ophthalmic (latanoprost Opth 0.005% Batool) melatonin (Melatonin 1 mg oral tablet) multivitamin (Multiple Vitamins Tab) omeprazole (omeprazole 20 mg Cap-DR) quetiapine (SEROquel 25 mg Tab) tizanidine (tiZANidine 4 mg Tab) [Image Removed: STOP]Stop taking these medications Fish Oil cholecalciferol (Vitamin D3 2000 intl units) donepezil (Aricept 10 mg Tab) folic acid (Folate 0.4 mg Tab) magnesium oxide (magnesium oxide 250 mg oral tablet) metoprolol (metoprolol 25 mg ER Tab) Procedure History Closed reduction of nasal fracture (02/05/2021), Helene osteotomy second and third metatarsal. capsulotomy third metatarsophalangeal joint. Helene osteotomy second metatarsophalangeal joint. proximal interphalangeal joint arthroplasty left second digit and to the left third digit (09/19/2014), Cataract (2012), Back, Right hammer toe and bunionectomy, RIght knee arthroscopy, tubal ligation. Discharge Vitals Temperature (Axillary) 36.6 ?C Heart Rate (Monitored) 72 Respiratory Rate 20 Blood Pressure 145/79 What to do next Instructions From Your Doctor Event Name Event Result Discharge Activity Activity as tolerated Discharge Diet(s) Regular Pending Diagnostic Test Results None Pharmacy Information [facility] Discharge Instructions Manage sleep wake cycle disturbance with Seroquel at bedtime. Follow-up with neurology and your family doctor as listed as follow-up. Maintain adequate oral hydration. Previously Scheduled Follow-Up Appointments Tuesday 10:00 AM EST Where: [facility] New Follow Up Appointments after Discharge Follow Up with EDMOND PACHECO DO When: Within 2 weeks Comments: Call for followup appointment Where: [address] , [place] [address]- Follow Up with Andres RODRIGUEZ, LEATHA Zaman When: Within 2 to 4 weeks Where: [facility] [address] [place] [address]- Medications What How Much When Instructions Next Dose New aspirin (aspirin 81 mg Oral EC Tab) 1 Tablets By Mouth Every day 12/7 @ 9 AM New quetiapine (SEROquel 25 mg Tab) 1 Tablets By Mouth At bedtime 12/6 @ 9 PM Unchanged busPIRone (busPIRone 15 mg Tab) 1 Tablets By Mouth 2 times a day 12/6 @ 9 PM Unchanged celecoxib (CeleBREX 200 mg Cap) 1 Capsules By Mouth 2 times a day 12/6 @ 9 PM Unchanged cetirizine (cetirizine 10 mg oral capsule) 1 Capsules By Mouth At bedtime 12/6 @ 9 PM Unchanged escitalopram (Lexapro 20 mg Tab) 1 Tablets By Mouth Every day 12/7 @ 9 AM Unchanged infliximab (Remicade) Dr Taylor PREVIOUSLY SCHEDULED Unchanged latanoprost ophthalmic (latanoprost Opth 0.005% Batool) See instructions 1 drop Both eyes daily 12/6 @ 9 AM Unchanged melatonin (Melatonin 1 mg oral tablet) 1 Milligram By Mouth Once a day (at bedtime) 12/6 @ 9 PM Unchanged multivitamin (Multiple Vitamins Tab) 1 Tablets By Mouth Every day 12/7 @ 9 AM Unchanged omeprazole (omeprazole 20 mg Cap-DR) 1 Capsules By Mouth Once a day (in the morning) 12/7 @ 9 AM Unchanged tizanidine (tiZANidine 4 mg Tab) 1 Tablets By Mouth At bedtime States 1-2 tabs orally at bedtime 12/6 @ 9 PM What How Much When Comments Stop Taking cholecalciferol (Vitamin D3 2000 intl units) 2,000 International unit By Mouth Every day Stop Taking donepezil (Aricept 10 mg Tab) 1 Tablets By Mouth Once a day (at bedtime) Stop Taking Fish Oil 1 tab By Mouth Every day Stop Taking folic acid (Folate 0.4 mg Tab) 1 Tablets By Mouth Every day Stop Taking magnesium oxide (magnesium oxi (more content not included)... [facility] Inpatient Clinical Summaryon 07-13-2023 Inpatient Clinical Summary [address] [address] Clinical Summary Person Information: Name: CARIDAD GLOVER I Age: 82 Years : 1940 Sex: Female PCP: EDMOND PACHECO DO Marital Status: Phone: [phone] Race: White Ethnicity: Non- or Language: Palauan Visit Id: Visit Reason: Altered mental status; ALTERED MENTAL STATUS - VERY CONFUSED - FRONTAL HEADACHE Speciality: Acuity: Enc Type: Observation Med Service: Medical Arrival: 07/10/2023 16:39:36 Discharge: Dispo Type: Admitted as IP to this [facility] Address: [address] [place] [id number] Provider Notes: Diagnosis: 1:Acute encephalopathy; 2:History of dementia; 3:Hyponatremia; 4:Anxiety and depression; 5:Compulsive skin picking; 6:Lumbar spinal stenosis; 7:History of alcohol use; 8:Hypertension; 9:History of PSVT (paroxysmal supraventricular tachycardia); 10:Chronic GERD; 11:Obstructive sleep apnea; 12:Psoriatic arthritis; 13:Obesity; 14:Encounter for deep vein thrombosis (DVT) prophylaxis; Depression, unspecified Problems Active Neurodermatitis Psoriatic arthritis Immunodeficiency due to treatment with immunosuppressive medication History of ventricular tachycardia Recurrent falls Alcohol use disorder Palpitations Psychophysical visual disturbance (01/20/2023) Visual hallucinations (01/20/2023) Obstructive sleep apnea syndrome (01/20/2023) Lumbar spondylosis Herpes labialis Diabetes mellitus without complication Dementia (01/20/2023) Benign neoplasm of colon Urinary frequency Nocturia Obesity Glaucoma Smoking Status: Never Smoker Functional Status: Sensory Deficits: History of Falls: Mobility Assistance Prior to Admission: ADLs: Current Level of Assistance for Self-Care/Mobility: Cognitive Status: Not oriented to person, Not oriented to place, Not oriented to time Allergies cortisone (severe headache) methylPREDNISolone (Unknown) (Other: See Comments) Measurements: Height: 152.4 cm Weight: 88.4 kg Blood Pressure: 145 mmHg / 79 mmHg BMI: 37.93 kg/m2 Procedures No Procedures Documented Immunizations No Immunizations Documented This Visit Final Med List: aspirin (aspirin 81 mg Oral EC Tab) 1 Tablets By Mouth every day. busPIRone (busPIRone 15 mg Tab) 1 Tablets By Mouth 2 times a day. celecoxib (CeleBREX 200 mg Cap) 1 Capsules By Mouth 2 times a day. cetirizine (cetirizine 10 mg oral capsule) 1 Capsules By Mouth at bedtime. Refills: 0. escitalopram (Lexapro 20 mg Tab) 1 Tablets By Mouth every day. infliximab (Remicade) Dr Taylor. latanoprost ophthalmic (latanoprost Opth 0.005% Batool) 1 drop Both eyes daily. melatonin (Melatonin 1 mg oral tablet) 1 Milligram By Mouth once a day (at bedtime). Refills: 0. multivitamin (Multiple Vitamins Tab) 1 Tablets By Mouth every day. omeprazole (omeprazole 20 mg Cap-DR) 1 Capsules By Mouth once a day (in the morning). quetiapine (SEROquel 25 mg Tab) 1 Tablets By Mouth at bedtime. tizanidine (tiZANidine 4 mg Tab) 1 Tablets By Mouth at bedtime. States 1-2 tabs orally at bedtime. Care Team Members: Attending Physician: Reuben DREW DO Consulting Physician: Austyn Campos MD Referring Physician: Follow up: With: Address: When: EDMOND PACHECO DO [address] [place] [id number] Within 2 weeks Comments: Call for followup appointment With: Address: When: Austyn Campos MD [address] [address] Within 2 to 4 weeks Type Location Start Finish State Secured Appointment Type Secured Location 07/15/2023 10:00 AM 07/15/2023 10:45 AM Confirmed Patient Education Information: Sleep Apnea, [id number]; Hyponatremia, [id number] [facility] Inpatient Patient Summaryon 07-13-2023 Inpatient Patient Summary [address] [address] Patient Discharge Instructions PERSON INFORMATION Name: CARIDAD GLOVER I Date of : 1940 Current Date: 07/13/2023 11:41:30 PHYSICIANS Admitting Physician: Reuben DREW DO Primary Care Physician: EDMOND PACHECO DO PCP Comment: Discharge Diagnosis: 1:Acute encephalopathy; 2:History of dementia; 3:Hyponatremia; 4:Anxiety and depression; 5:Compulsive skin picking; 6:Lumbar spinal stenosis; 7:History of alcohol use; 8:Hypertension; 9:History of PSVT (paroxysmal supraventricular tachycardia); 10:Chronic GERD; 11:Obstructive sleep apnea; 12:Psoriatic arthritis; 13:Obesity; 14:Encounter for deep vein thrombosis (DVT) prophylaxis; Depression, unspecified Condition at Discharge: Stable CARIDAD GLOVER I has been given the following list of follow-up instructions, prescriptions, and patient education materials: PATIENT FOLLOW-UP INFORMATION Diet: Regular Discharge Activity: Activity as tolerated Discharge Restrictions: Wound Care Instructions: Remove Your Dressing In Days Call Your Doctor For: IF UNABLE TO CONTACT YOUR PHYSICIAN AND YOU FEEL IT IS AN EMERGENCY, GO TO THE NEAREST EMERGENCY ROOM OR CALL 911 Home Treatment: Devices/Equipment: Walker Special Services: Additional Instructions: Manage sleep wake cycle disturbance with Seroquel at bedtime. Follow-up with neurology and your family doctor as listed as follow-up. Maintain adequate oral hydration Primary Care Physician to provide the following pending test results: None Follow up: With: Address: When: EDMOND PACHECO DO [address] [place] [id number] Within 2 weeks Comments: Call for followup appointment With: Address: When: Andres RODRIGUEZ, LEATHA Zaman [address] [address] Within 2 to 4 weeks In the event that this physician does not participate in your insurance network, please consult with your insurance company to find a nearby participating provider. Type Location Start Finish State Secured Appointment Type Secured Location 07/15/2023 10:00 AM 07/15/2023 10:45 AM Confirmed Comment: JV Heaton JANICE I, have received the attached patient education materials/instructions and have verbalized understanding: Patient Signature Date Clinican/Nurse Signature ___ Date HERE ARE THE MEDICATION CHANGES THAT OCCURRED DURING YOUR HOSPITAL STAY New Medications Other Medications aspirin (aspirin 81 mg Oral EC Tab) 1 Tablets By Mouth every day. Last Dose: ___Next Dose: ___ quetiapine (SEROquel 25 mg Tab) 1 Tablets By Mouth at bedtime. Last Dose: ___Next Dose: ___ Medications to Continue with No Changes Other Medications busPIRone (busPIRone 15 mg Tab) 1 Tablets By Mouth 2 times a day. Last Dose: ___Next Dose: ___ celecoxib (CeleBREX 200 mg Cap) 1 Capsules By Mouth 2 times a day. Last Dose: ___Next Dose: ___ cetirizine (cetirizine 10 mg oral capsule) 1 Capsules By Mouth at bedtime. Refills: 0. Last Dose: ___Next Dose: ___ escitalopram (Lexapro 20 mg Tab) 1 Tablets By Mouth every day. Last Dose: ___Next Dose: ___ infliximab (Remicade) Dr Taylor., unknown dosing information provided Last Dose: ___Next Dose: ___ latanoprost ophthalmic (latanoprost Opth 0.005% Batool) 1 drop Both eyes daily., GLAUCOMA Last Dose: ___Next Dose: ___ melatonin (Melatonin 1 mg oral tablet) 1 Milligram By Mouth once a day (at bedtime). Refills: 0. Last Dose: ___Next Dose: ___ multivitamin (Multiple Vitamins Tab) 1 Tablets By Mouth every day. Last Dose: ___Next Dose: ___ omeprazole (omeprazole 20 mg Cap-DR) 1 Capsules By Mouth once a day (in the morning). Last Dose: ___Next Dose: ___ tizanidine (tiZANidine 4 mg Tab) 1 Tablets By Mouth at bedtime. States 1-2 tabs orally at bedtime. Last Dose: ___Next Dose: ___ No Longer Take the Following Medications cholecalciferol (Vitamin D3 2000 intl units) 2,000 International unit By Mouth every day. donepezil (Aricept 10 mg Tab) 1 Tablets By Mouth once a day (at bedtime). Refills: 0. Fish Oil 1 tab By Mouth every day. folic acid (Folate 0.4 mg Tab) 1 Tablets By Mouth every day. magnesium oxide (magnesium oxide 250 mg oral tablet) 1 Tablets By Mouth every day. metoprolol (metoprolol 25 mg ER Tab) 1 Tablets By Mouth every day. Comment: MEDICATION LIST PROVIDED FOR YOU IS A LIST OF Y (more content not included)... 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 Aware of TCU acceptance and precert obtained and plan to DC to TCU today, family present. Declines any further concerns or needs. . PCP verified and insurance information reviewed and DME discussed. Contact information provided and white board updated. [facility] Comment on above: Result Comment: Elec tronically Signed By: Jeovanny CROWLEY, Shanae\.br\Date and Time Signed: 07/13/23 12:59 EST Progress Note-Physicianon Progress Note-Physician Assessment/Plan 1. Acute encephalopathy (G93.40: Encephalopathy, unspecified) Multifactorial Address sleep-wake cycle--> agree with neurology and the addition of Seroquel MRI brain no acute findings thyroid studies negative And B12 levels WNL Reviewed and appreciate neuro recommendations 2. History of dementia (Z86.59: Personal history of other mental and behavioral disorders) Not currently on dementia meds? Aricept/Namenda? Remote neuropsych evaluation cognitive dementia advance from mild to moderate. 3. Hyponatremia (E87.1: Hypo-osmolality and hyponatremia) Mild in nature, asymptomatic 4. Anxiety and depression (F41.9: Anxiety disorder, unspecified) We will continue Lexapro and BuSpar 5. Compulsive skin picking (F42.4: Excoriation (skin-picking) disorder) Continue Zyrtec as per neurology's recommendation on prior hospitalization avoid first generation antihistamines 6. Lumbar spinal stenosis (M48.061: Spinal stenosis, lumbar region without neurogenic claudication) Remote history of lower back surgery at [facility]. Patient is on Zanaflex we will continue but observe blood pressures. Will transiently hold Celebrex as patient will be on aspirin until evaluated by neurology for above 7. History of alcohol use (Z87.898: Personal history of other specified conditions) As stated above patient had a period of time after she was approximately 7 years ago where she consumed significant amounts of alcohol. 8. Hypertension (I10: Essential (primary) hypertension) Metoprolol was held with plans to do a Holter monitor on Tuesday. Will order as needed hydralazine 9. History of PSVT (paroxysmal supraventricular tachycardia) (Z86.79: Personal history of other diseases of the circulatory system) Patient had also had periods of nonsustained ventricular tachycardia. Metoprolol is being held with a Holter monitor scheduled for Tuesday to see if there is recurrence of the arrhythmias. Monitor serum potassium. Monitor on telemetry 10. Chronic GERD (K21.9: Gastro-esophageal reflux disease without esophagitis) Continue PPI 11. Obstructive sleep apnea (G47.33: Obstructive sleep apnea (adult) (pediatric)) Patient was tested remotely but did not tolerate CPAP. Question if this contributes to poor sleep hygiene and contributing to above 12. Psoriatic arthritis (L40.50: Arthropathic psoriasis, unspecified) She was followed by Dr. Taylor receives Remicade injections 13. Obesity (E66.9: Obesity, unspecified) 14. Encounter for deep vein thrombosis (DVT) prophylaxis (Z29.9: Encounter for prophylactic measures, unspecified) Heparin subcutaneous Orders: potassium chloride, 20 mEq = 1 tab(s), Tab-ER, Oral, Once, Stop date 07/12/23 9:00:00 EST, Routine, Start date 07/12/23 9:00:00 EST, 07/12/23 8:08:00 EST Basic Metabolic Panel eGFR Extra Lav Tube Extra SST Tube Shower Subjective Was resting quietly in bed with exam today and mentions that she remembers her name but not her location or the date. She is no longer hallucinating and was able to ambulate well with her walker with physical therapy. She mentions that she feels fine and is ready for her afternoon nap. Objective Vitals & Measurements T: 36.8 ?C(Axillary) TMIN: 36.7 ?C(Axillary) TMAX: 36.8 ?C(Axillary) HR: 82(Monitored) RR: 18 BP: 159/68 SpO2: 96% WT: 88.4 kg Intake & Output This visit (24 hour periods starting at 07:00 EST) 07/12/23 * 07/11/23 07/10/23 Total Summary Intake mL 200 250 2 Output mL -- 525 -- Fluid Balance 200 -275 2 Intake (2) Oral Intake mL 200 250 -- famotidine mL -- -- 2 Total 200 250 2 Output (1) Urine Voided mL -- 525 -- Total -- 525 -- Counts (1) Urine Count 1 1 -- * This column has not completed the indicated time period. Physical Exam General: alert, no acute distress patient is cheerful Skin: warm, dry Head: no trauma, normocephalic Neck: Trachea midline, no adenopathy, no tenderness Eye: normal conjunctiva, sclera clear ENMT: oral mucosa moist, no pharyngeal erythema or exudate Cardiovascular: regular rate and rhythm, normal peripheral perfusion Respiratory: Clear, respirations non labored Chest wall: no deformity. Gastrointestinal: soft, non distended, no tenderness, no guarding. Extremities: no deformity, no trauma Neurological: Patient was oriented to self and daughter, LOC appropriate for age, CN II-XII intact Psychiatric: cooperative, affect appropriate for age, Lab Results Glucose Lvl: 101 mg/dL (07/12/23 06:44:00) BUN: 15 mg/dL (07/12/23 06:44:00) Creatinine: 0.6 mg/dL (07/12/23 06:44:00) eGFR: 91 mL/min/1.73 m2 (07/12/23 06:44:00) BUN/Creat Ratio: 25 High (07/12/23 06:44:00) Sodium Lvl: 138 mmol/L (07/12/23 06:44:00) Potassium Lvl: 3.5 mmol/L (07/12/23 06:44:00) Chloride: 105 mmol/L (07/12/23 06:44:00) CO2: 27 mmol/L (07/12/23 06:44:00) AGAP: 10 mEq/L (07/12/23 06:44:00) Ramon (more content not included)... Normal [facility] Comment on above: Result Comment: Elec tronically Signed By: Rimma Paez\.br\Date and Time Signed: 07/12/23 23:36 EST\.br\Electronically Co-Signed By: HARPER RODRIGUEZ, Valente\.br\Date and Time Co-Signed: 07/13/23 07:19 EST eGFRon 07-13-2023 GFR/1.73 sq M.predicted among non-blacks MDRD (S/P/Bld) [Vol rate/Area] 91 mL/min/1.73 m2 Normal >=59 [facility] Comment on above: Order Comment: Order added by Discern Expert. Result Comment: Cnmt adelso kidney disease could be indicated at eGFR's of less than 60 mL/min/1.73m2. Kidney failure is indicated at less than 15 mL/min/1.73m2. Performed By: #### 2 [id number], [id number] ####[facility] [address] [place] [address] Ammoniaon 07-12-2023 Ammonia (P) [Moles/Vol] 24 mcmol Normal 11-35 [facility] Comment on above: Performed By: #### 2 [id number], [id number], [id number] ####[facility] [address] [place] [address] BMPon 07-12-2023 Anion gap [Moles/Vol] 10 mmol/L Normal 6-16 [facility] Comment on above: Performed By: #### 2 384247, 3999514, [id number] #### [facility] [address] [place] [address] Calcium [Mass/Vol] 8.8 mg/dL Low 8.9-11.1 [facility] Comment on above: Performed By: #### 2 826983, 9444228, [id number] #### [facility] [address] [place] [address] Chloride [Moles/Vol] 105 mmol/L Normal 101-111 [facility] Comment on above: Performed By: #### 2 463844, 6005192, [id number] #### [facility] [address] [place] [address] CO2 [Moles/Vol] 27 mmol/L Normal 21-31 [facility] Comment on above: Performed By: #### 2 035632, 1023927, [id number] #### [facility] [address] [place] [address] Creatinine [Mass/Vol] 0.6 mg/dL Normal 0.5-1.3 [facility] Comment on above: Performed By: #### 2 323042, 4875881, [id number] #### [facility] [address] [place] [address] Glucose [Mass/Vol] 101 mg/dL Normal 55-199 [facility] Comment on above: Result Comment: If t his glucose result represents a fasting glucose, interpretation should refer to the following reference range: 55-99 mg/dL Performed By: #### 2 359514, 8508024, [id number] #### [facility] [address] [place] [address] Potassium [Moles/Vol] 3.5 mmol/L Normal 3.5-5.3 [facility] Comment on above: Performed By: #### 2 586604, 1630229, [id number] #### [facility] [address] [place] [address] Sodium [Moles/Vol] 138 mmol/L Normal 135-145 [facility] Comment on above: Performed By: #### 2 246215, 2218082, [id number] #### [facility] [address] [place] [address] Urea nitrogen [Mass/Vol] 15 mg/dL Normal 5-21 [facility] Comment on above: Performed By: #### 2 084105, 3314016, [id number] #### [facility] [address] [place] [address] Urea nitrogen/Creatinine [Mass ratio] 25 No Units High 10-20 [facility] Comment on above: Performed By: #### 2 612082, 1097971, [id number] #### [facility] [address] [place] [address] CHEMISTRYOrdered By: SYSTEM SYSTEM on 07-12-2023 Ammonia (P) [Moles/Vol] 24 umol Normal 11 - 35 mcmol [facility] Remisol Anion gap [Moles/Vol] 10 mmol/L Normal 6 - 16 mEq/L [facility] Calcium [Mass/Vol] 8.8 mg/dL Low 8.9 - 11. 1 mg/dL [facility] Chloride [Moles/Vol] 105 mmol/L Normal 101 - 1 11 mmol/L [facility] CO2 [Moles/Vol] 27 mmol/L Normal 21 - 31 mmol/L [facility] Creatinine [Mass/Vol] 0.6 mg/dL Normal 0.5 - 1.3 mg/dL [facility] Remisol GFR/1.73 sq M.predicted among non-blacks MDRD (S/P/Bld) [Vol rate/Area] 91 mL/min/1.73 m2 Normal >=59mL/min/ 1.73 m2 [facility] Chem S Comment on above: Interpretive Data: C hronic kidney disease could be indicated at eGFR's of less than 60 mL/min/1.73m2. Kidney failure is indicated at less than 15 mL/min/1.73m2. Glucose [Mass/Vol] 101 mg/dL Normal 55 - 199 mg/dL [facility] Remisol Comment on above: Interpretive Data: I f this glucose result represents a fasting glucose, interpretation should refer to the following reference range: 55-99 mg/dL Potassium [Moles/Vol] 3.5 mmol/L Normal 3.5 - 5.3 mmol/L [facility] Remisol Sodium [Moles/Vol] 138 mmol/L Normal 135 - 145 mmol/L [facility] Remisol Urea nitrogen [Mass/Vol] 15 mg/dL Normal 5 - 21 mg/dL [facility] Remisol Urea nitrogen/Creatinine [Mass ratio] 25 mg/mg High 10 - 20 [facility] Remisol Interdisciplinary Note - Adalberto e Manageron 07-12-2023 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 Family at bedside. Aware of plan to stay in hospital today and anticipate DC 12/6. Pt declines any further concerns ro DC needs. . PCP verified and insurance information reviewed and DME discussed. Contact information provided and white board updated. Normal [facility] Comment on above: Result Comment: Elec tronically Signed By: Jeovanny CROWLEY, Shanae\.anusha\Date and Time Signed: 07/12/23 12:53 EST Monitor Recordon 07-12-2023 Monitor Record [id number]#1. 00TIFF Normal [facility] Monitor Record [id number]#1. 00TIFF Normal [facility] Monitor Record [id number]#1. 00TIFF Normal [facility] eGFRon 07-12-2023 GFR/1.73 sq M.predicted among non-blacks MDRD (S/P/Bld) [Vol rate/Area] 91 mL/min/1.73 m2 Normal >=59 [facility] Comment on above: Order Comment: Order added by Discern Expert. Result Comment: Cnmt adelso kidney disease could be indicated at eGFR's of less than 60 mL/min/1.73m2. Kidney failure is indicated at less than 15 mL/min/1.73m2. Performed By: #### 2 904056, 0472547, [id number] #### [facility] [address] [place] [address] Auto Diffon 07-11-2023 Basophils/100 WBC (Bld) 0.3 % Normal 0.0-2.0 [facility] Comment on above: Order Comment: Order Added by Discern Expert. Performed By: #### 1 4640091, 2798689, 8959644, 6284065, 66058923 #### [facility] [address] [place] [address] Basophils/Leukocytes Auto (Bld) [Pure # fraction] 0.0 E9/L Normal 0.0-0.2 [facility] Comment on above: Order Comment: Order Added by Discern Expert. Performed By: #### 1 5579313, 2307556, 2111836, 0078422, 21779456 #### [facility] [address] [place] [address] Eosinophils/100 WBC (Bld) 1.4 % Normal 0.0-8.0 [facility] Comment on above: Order Comment: Order Added by Discern Expert. Performed By: #### 1 4334845, 4578655, 8766939, 8761694, 48890208 #### [facility] [address] [place] [address] Eosinophils/Leukocytes Auto (Bld) [Pure # fraction] 0.1 E9/L Normal 0.0-0.5 [facility] Comment on above: Order Comment: Order Added by Discern Expert. Performed By: #### 1 4912474, 8685109, 1496398, 9814511, 11579588 #### [facility] [address] [place] [address] Lymphocytes/100 WBC (Bld) 32.5 % Normal 14.0-50.0 [facility] Comment on above: Order Comment: Order Added by Discern Expert. Performed By: #### 1 5390143, 8778833, 2969199, 3493261, 11343244 #### [facility] [address] [place] [address] Lymphocytes/Leukocytes Auto (Bld) [Pure # fraction] 2.0 E9/L Normal 1.0-4.0 [facility] Comment on above: Order Comment: Order Added by Alethea Expert. Performed By: #### 1 6321689, 7141072, 5102325, 2689253, 79187633 #### [facility] [address] [place] [address] Monocytes/100 WBC (Bld) 7.4 % Normal 4.0-14.0 [facility] Comment on above: Order Comment: Order Added by Alethea Expert. Performed By: #### 1 5886692, 6076569, 2439561, 1401061, 08476828 #### [facility] [address] [place] [address] Monocytes/Leukocytes Auto (Bld) [Pure # fraction] 0.5 E9/L Normal 0.2-1.0 [facility] Comment on above: Order Comment: Order Added by Discern Expert. Performed By: #### 1 3781895, 1870175, 7293597, 8517382, 77571268 #### [facility] [address] [place] [address] Neutrophils/100 WBC (Bld) 58.4 % Normal 36.0-75.0 [facility] Comment on above: Order Comment: Order Added by Discern Expert. Performed By: #### 1 1284626, 3616904, 7109432, 5668413, 24425756 #### [facility] [address] [place] [address] Neutrophils/Leukocytes Auto (Bld) [Pure # fraction] 3.6 E9/L Normal 2.0-7.5 [facility] Comment on above: Order Comment: Order Added by Discern Expert. Performed By: #### 1 3463851, 2466722, 3560735, 1948091, 87959706 #### [facility] [address] [place] [address] BMPon 07-11-2023 Anion gap [Moles/Vol] 7 mmol/L Normal 6-16 [facility] Comment on above: Performed By: #### 1 0807136, 9088573, 2377004, 5484589, 98778698 #### [facility] [address] [place] [address] Calcium [Mass/Vol] 8.5 mg/dL Low 8.9-11.1 [facility] Comment on above: Performed By: #### 1 9629556, 9240108, 5652596, 4644067, 12103070 #### [facility] [address] [place] [address] Chloride [Moles/Vol] 104 mmol/L Normal 101-111 [facility] Comment on above: Performed By: #### 1 0778185, 5116031, 8738466, 7780928, 44334532 #### [facility] [address] [place] [address] CO2 [Moles/Vol] 28 mmol/L Normal 21-31 [facility] Comment on above: Performed By: #### 1 6963156, 4748845, 0247004, 9278852, 55716471 #### [facility] [address] [place] [address] Glucose [Mass/Vol] 105 mg/dL Normal 55-199 [facility] Comment on above: Result Comment: If t his glucose result represents a fasting glucose, interpretation should refer to the following reference range: 55-99 mg/dL Performed By: #### 1 0824967, 3803696, 0302696, 4221865, 15705431 #### [facility] [address] [place] [address] Potassium [Moles/Vol] 3.9 mmol/L Normal 3.5-5.3 [facility] Comment on above: Performed By: #### 1 6008688, 9150971, 6516931, 0739579, 19550121 #### [facility] [address] [place] [address] Sodium [Moles/Vol] 135 mmol/L Normal 135-145 [facility] Comment on above: Performed By: #### 1 9630028, 3238292, 0344062, 7323654, 96469090 #### [facility] [address] [place] [address] Creatinine [Mass/Vol] 0.6 mg/dL Normal 0.5-1.3 [facility] Comment on above: Performed By: #### 1 5151500, 5083439, 8731235, 2401813, 49357397 #### [facility] [address] [place] [address] Urea nitrogen [Mass/Vol] 14 mg/dL Normal 5-21 [facility] Comment on above: Performed By: #### 1 5003178, 8343610, 4823118, 1057716, 38052625 #### [facility] [address] [place] [address] Urea nitrogen/Creatinine [Mass ratio] 23 No Units High 10-20 [facility] Comment on above: Performed By: #### 1 5765622, 1566513, 3118685, 4411537, 25445179 #### [facility] [address] [place] [address] CBC w/ Auto Diffon 3 Erythrocyte distribution width (RBC) [Ratio] 13.0 % Normal 10.9-14.2 [facility] Comment on above: Performed By: #### 1 0866495, 2266251, 7433603, 9274411, 39742064 #### [facility] [address] [place] [address] Hematocrit (Bld) [Volume fraction] 36.9 % Normal 34.0-46.0 [facility] Comment on above: Performed By: #### 1 3260842, 9946808, 0872735, 0571027, 66780267 #### [facility] [address] [place] [address] Hemoglobin (Bld) [Mass/Vol] 12.7 g/dL Normal 12.0-16.0 [facility] Comment on above: Performed By: #### 1 9178547, 8236674, 6916151, 5141147, 06610117 #### [facility] [address] [place] [address] MCH (RBC) [Entitic mass] 32.9 pg Normal 27.0-34.0 [facility] Comment on above: Performed By: #### 1 8882176, 5176895, 7958109, 5339218, 26441426 #### [facility] [address] [place] [address] MCHC (RBC) [Mass/Vol] 34.3 g/dL Normal 31.4-36.0 [facility] Comment on above: Performed By: #### 1 6946024, 9625391, 7191898, 6787015, 48618304 #### [facility] [address] [place] [address] MCV (RBC) [Entitic vol] 95.9 fL Normal 80.0-100.0 [facility] Comment on above: Performed By: #### 1 7485553, 6397464, 6995678, 7295050, 16562255 #### [facility] [address] [place] [address] Platelet mean volume (Bld) [Entitic vol] 7.7 fL Normal 6.4-10.8 [facility] Comment on above: Performed By: #### 1 0691010, 2522622, 3557725, 5283888, 01073235 #### [facility] [address] [place] [address] Platelets (Bld) [#/Vol] 171.0 E9/L Normal 150.0-500.0 [facility] Comment on above: Performed By: #### 1 6033800, 2565239, 8345804, 0952445, 37976352 #### [facility] [address] [place] [address] RBC (Bld) [#/Vol] 3.8 E12/L Low 4.3-5.9 [facility] Comment on above: Performed By: #### 1 6647574, 6273966, 2518148, 9578248, 68859284 #### [facility] [address] [place] [address] WBC corrected for nucl RBC Auto (Bld) [#/Vol] 6.2 E9/L Normal 4.0-11.0 [facility] Comment on above: Performed By: #### 1 9437914, 5122286, 3666336, 5448409, 20474909 #### [facility] [address] [place] [address] CHEMISTRYOrdered By: SYSTEM SYSTEM on 07-11-2023 Ethanol [Mass/Vol] mg/dL Normal <=7mg/dL [facility] emisol Albumin [Mass/Vol] 3.3 g/dL Normal 3.3 - 5.0 gm/dL [facility] Albumin/Globulin [Mass ratio] 0.8 {ratio} Low 1.1 - 2.2 [facility] ALP [Catalytic activity/Vol] 60 [iU]/d Normal 21 - 98 Int._Unit/L [facility] ALT No additional P-5'-P [Catalytic activity/Vol] 18 [iU]/d Normal 6 - 46 Int._Unit/L [facility] Anion gap [Moles/Vol] 7 mmol/L Normal 6 - 16 mEq/L [facility] AST [Catalytic activity/Vol] 36 [iU]/d Normal 5 - 43 Int._Unit/L [facility] Bilirubin [Mass/Vol] 1.3 mg/dL High 0.0 - 1 .1 mg/dL [facility] Bilirubin.direct [Mass/Vol] 0.2 mg/dL Normal 0.1 - 0.4 mg/dL [facility] Bilirubin.indirect [Mass or moles/Vol] 1.1 mg/dL High 0.1 - 0.9 mg/dL [facility] Calcium [Mass/Vol] 8.5 mg/dL Low 8.9 - 11. 1 mg/dL [facility] Chloride [Moles/Vol] 104 mmol/L Normal 101 - 1 11 mmol/L [facility] CO2 [Moles/Vol] 28 mmol/L Normal 21 - 31 mmol/L [facility] Cobalamin (Vitamin B12) [Mass/Vol] 340 pg/mL Normal 50 - 1500 pg/mL [facility] Creatinine [Mass/Vol] 0.6 mg/dL Normal 0.5 - 1.3 mg/dL [facility] GFR/1.73 sq M.predicted among non-blacks MDRD (S/P/Bld) [Vol rate/Area] 91 mL/min/1.73 m2 Normal >=59mL/min/ 1.73 m2 [facility] Chem S Comment on above: Interpretive Data: C hronic kidney disease could be indicated at eGFR's of less than 60 mL/min/1.73m2. Kidney failure is indicated at less than 15 mL/min/1.73m2. Globulin (S) [Mass/Vol] 4.2 g/dL High 1.4 - 4.0 gm/dL [facility] Glucose [Mass/Vol] 105 mg/dL Normal 55 - 199 mg/dL [facility] Comment on above: Interpretive Data: I f this glucose result represents a fasting glucose, interpretation should refer to the following reference range: 55-99 mg/dL Potassium [Moles/Vol] 3.9 mmol/L Normal 3.5 - 5.3 mmol/L [facility] Protein [Mass/Vol] 7.5 g/dL Normal 6.0 - 7.8 gm/dL [facility] Sodium [Moles/Vol] 135 mmol/L Normal 135 - 145 mmol/L [facility] TSH Qn 0.78 m[IU]/L Normal 0.34 - 5.60 mcIU/mL [facility] Urea nitrogen [Mass/Vol] 14 mg/dL Normal 5 - 21 mg/dL [facility] Urea nitrogen/Creatinine [Mass ratio] 23 mg/mg High 10 - 20 [facility] Troponin I.cardiac [Mass/Vol] 11.70 pg/mL Normal 10.10 - 27.10 pg/mL [facility] Comment on above: Interpretive Data: T he 95% CI (Confidence Interval) PPV (Positive Predictive Value) for myocardial infarction in females is 38 pg/mL, in males 51 pg/mL. The results should be used in conjunction with clinical conditions of myocardial infarction. (Access High Sensitivity Troponin I Instructions For Use, [place], March 2018) Consultation Noteon 07-11-20 Consultation Note Chief Complaint significant change in mental status - daughter Linh Reason for Consultation encephalopathy (dementia) History of Present Illness The patient is a 82 yo female who I was asked to see in neurological consultation for acute encephalopathy. The patient does have a history of baseline neurodegenerative disease which has been progressive. The patient was alone overnight on Tuesday and in her normal state of health according to family. When family next spoke with her on Tuesday the patient was significantly confused and hallucinating. It is unclear if the patient did not sleep overnight, had a fall with head injury, or had any issues with medications. The patient remains significantly confused and hallucinating and not at her baseline. The patient was brought in by family and is currently being evaluated for other medical conditions. Patient does not appear to have underlying urinary tract infection at this time. Patient denies any unilateral numbness, unilateral weakness, or vision changes although the patient is a poor historian for the events which led to her hospitalization. History was obtained predominantly from the patient's daughter. Review of Systems Constitutional: no fever, no chills, no sweats, no weakness Respiratory: no shortness of breath, no cough, no orthopnea, no wheezing Cardiovascular: no chest pain, no palpitations, no edema Additional ROS info: Except as noted in the above Review of Systems and in the History of Present Illness all other systems have been reviewed and are negative or noncontributory. Physical Exam Vitals & Measurements T: 36.5 ?C(Oral) TMIN: 36.5 ?C(Oral) TMAX: 37.4 ?C(Oral) HR: 86(Monitored) RR: 18 BP: 151/75 SpO2: 94% HT: 152.4 cm WT: 88.1 kg The patient is awake and alert. The patient is oriented to person Language is intact including comprehension and fluency, fund of knowledge is and memory significantly impaired. Patient is hallucinating and seeing people who are not there. Patient is asking about her son who has been for 10 years. Cranial nerves: Pupils are equal round and reactive to light and accommodation, extraocular movements intact, visual fan are full to confrontation, face is symmetric bilaterally, sensations intact in the face, palate elevates bilaterally, tongue protrudes midline, hearing is intact to finger rub, shoulder shrug is symmetric Motor exam: Strength testing is 5- out of 5 MRC scale strength in all 4 extremities. Deep tendon reflexes are 1+ and symmetric. Tone is normal throughout. Plantar reflexes flexor bilaterally Sensory exam: Sensations intact to light touch sensation in all 4 extremities Cerebellar exam: [id number] reveals no ataxia. Gait is deferred Assessment/Plan The patient is a 82-year-old with a history of acid of neurodegenerative disease consistent with dementia who was admitted to the hospital with increased confusion which occurred over 24 hours.. Possible etiologies include acute worsening of baseline neurodegenerative dementia or exacerbation of cognitive problems related to sleep-wake cycle disturbance. Possible etiologies for the patient's symptoms include a multifactorial encephalopathy contributed to by underlying metabolic process. I cannot completely exclude an intracranial process such as stroke, increased intracranial pressure, or mass, contributed to the patient's symptoms. I cannot exclude underlying seizure disorder with subclinical seizures and postictal confusion contributing to the patient's symptoms. In addition, the patient may have medication side effects contributing to overall encephalopathy. The patient may have a component of sleep-wake cycle disturbance with sleep deprivation contributing to encephalopathy. -I have reviewed the CT scan of the brain personally -I recommend obtaining an MRI scan of the brain to assess for an acute intracranial process which may be contributing to the patient's encephalopathy -I recommend obtaining lab work including ammonia to assess for a metabolic process which may be contributing to the patient's symptoms -I recommend Seroquel 25 mg p.o. nightly for hallucinations with as needed medication for hallucinations and agitation -I recommend monitoring the patient's sleep-wake cycle with minimal interruptions during sleep and consideration of medications to help normalize the patient's sleep-wake cycle on the hospital. -I will continue to follow the patient clinically with medical management of the patient's medical conditions and make further recommendations based upon the patient's clinical course and the above evaluation. -I discussed the case with the hospitalist 1. Acute encephalopathy (G93.40: Encephalopathy, unspecified) 2. History of dementia (Z86.59: Personal history of other mental and behavioral disorders) 3. Hyponatremia (E87.1: Hypo-osmolality and hyponatremia) 4. Anxiety and depression (F41.9: Anxiety disorder, unspecified) 5. Compulsive skin picking (F42.4: Excoria (more content not included)... Normal [facility] Comment on above: Result Comment: Elec tronically Signed By: Rashida Moraes RN\.br\Date and Time Signed: 07/11/23 07:08 EST\.br\Electronically Co-Signed By: Austyn Campos MD\.br\Date and Time Co-Signed: 07/11/23 10:43 EST Ethanolon 07-11-2023 Ethanol [Mass/Vol] mg/dL Normal <=7 [facility] Comment on above: Performed By: #### 1 [id number], 7019331, 4683357, 2041907, [id number] #### [facility] [address] [place] [address] HEMATOLOGYOrdered By: SYSTEM SYSTEM on 07-11-2023 Basophils/100 WBC (Bld) 0.3 % Normal 0.0 - 2.0 % [facility] HemeAutoSS Basophils/Leukocytes Auto (Bld) [Pure # fraction] 0.0 E9/L Normal 0.0 - 0.2 E9/L [facility]eAuto[facility] Eosinophils/100 WBC (Bld) 1.4 % Normal 0.0 - 8.0 % [facility] HemeAutoSS Eosinophils/Leukocytes Auto (Bld) [Pure # fraction] 0.1 E9/L Normal 0.0 - 0.5 E9/L [facility]eAuto[facility] Lymphocytes/100 WBC (Bld) 32.5 % Normal 14.0 - 50.0 % [facility]eAutoSS Lymphocytes/Leukocytes Auto (Bld) [Pure # fraction] 2.0 E9/L Normal 1.0 - 4.0 E9/L [facility] HemeAutoSS Monocytes/100 WBC (Bld) 7.4 % Normal 4.0 - 14.0 % [facility] Monocytes/Leukocytes Auto (Bld) [Pure # fraction] 0.5 E9/L Normal 0.2 - 1.0 E9/L [facility] Neutrophils/100 WBC (Bld) 58.4 % Normal 36.0 - 75.0 % [facility] Neutrophils/Leukocytes Auto (Bld) [Pure # fraction] 3.6 E9/L Normal 2.0 - 7.5 E9/L [facility] HEMATOLOGYOrdered By: Lizet Saab on 07-11-2023 Erythrocyte distribution width (RBC) [Ratio] 13.0 % Normal 10.9 - 14.2 % [facility] ESR (Bld) [Velocity] 46 mm/h High 0 - 34 mm/hr [facility] Hematocrit (Bld) [Volume fraction] 36.9 % Normal 34.0 - 46.0 % [facility] Hemoglobin (Bld) [Mass/Vol] 12.7 g/dL Normal 12.0 - 16.0 gm/dL [facility] MCH (RBC) [Entitic mass] 32.9 pg Normal 27.0 - 34.0 pg [facility] MCHC (RBC) [Mass/Vol] 34.3 g/dL Normal 31.4 - 36.0 gm/dL [facility] MCV (RBC) [Entitic vol] 95.9 fL Normal 80.0 - 100.0 fL [facility] Platelet mean volume (Bld) [Entitic vol] 7.7 fL Normal 6.4 - 10.8 fL [facility] Platelets (Bld) [#/Vol] 171.0 E9/L Normal 150. 0 - 500.0 E9/L [facility] RBC (Bld) [#/Vol] 3.8 E12/L Low 4.3 - 5.9 E12/L [facility] WBC corrected for nucl RBC Auto (Bld) [#/Vol] 6.2 E9/L Normal 4.0 - 11.0 E9/L [facility] Hep Func Panelon 07-11-2023 Albumin [Mass/Vol] 3.3 g/dL Normal 3.3-5.0 [facility] Comment on above: Performed By: #### 1 [id number], 6702063, 9562030, 0000121, [id number] #### [facility] [address] [place] [address] Albumin/Globulin (S) [Mass conc ratio] 0.8 Low 1.1-2.2 [facility] Comment on above: Performed By: #### 1 5250060, 9467772, 9987293, 4542069, 12478589 #### [facility] [address] [place] [address] ALP [Catalytic activity/Vol] 60 Int._Unit/L Normal 21-98 [facility] Comment on above: Performed By: #### 1 4675284, 7036214, 1521562, 1795939, 53335411 #### [facility] [address] [place] [address] ALT No additional P-5'-P [Catalytic activity/Vol] 18 Int._Unit/L Normal 6-46 [facility] Comment on above: Performed By: #### 1 9187560, 7174911, 1973988, 5100102, 52808400 #### [facility] [address] [place] [address] AST [Catalytic activity/Vol] 36 Int._Unit/L Normal 5-43 [facility] Comment on above: Performed By: #### 1 0742289, 9152120, 6331384, 8896928, 04411131 #### [facility] [address] [place] [address] Bilirubin [Mass/Vol] 1.3 mg/dL High 0.0-1.1 [facility] Comment on above: Performed By: #### 1 3047661, 9573314, 4854268, 7501254, 67078356 #### [facility] [address] [place] [address] Bilirubin.direct [Mass/Vol] 0.2 mg/dL Normal 0.1-0.4 [facility] Comment on above: Performed By: #### 1 4224892, 5063497, 0396523, 5556661, 93041974 #### [facility] [address] [place] [address] Bilirubin.indirect [Mass or moles/Vol] 1.1 mg/dL High 0.1-0.9 [facility] Comment on above: Performed By: #### 1 3868419, 3069967, 5537806, 9432006, 27960326 #### [facility] [address] [place] [address] Globulin (S) [Mass/Vol] 4.2 g/dL High 1.4-4.0 [facility] Comment on above: Performed By: #### 1 8191309, 2709943, 7226965, 8584160, 80051633 #### [facility] [address] [place] [address] Protein [Mass/Vol] 7.5 g/dL Normal 6.0-7.8 [facility] Comment on above: Performed By: #### 1 6793628, 7588831, 1772064, 2334028, 99123373 #### [facility] [address] [place] [address] Interdisciplinary Note - Adalberto e Manageron 07-11-2023 Interdisciplinary Note - Software Engineer Developer Per nursing, asked to let pt sleep, she didn't get any rest last night. Pending PT/OT. ROSADO form discussed over the phone. Copy provided. Ant dc TBD. CRM to follow. PT/OT recs SNF. Referral made per dtr's request. Precert. Normal [facility] Comment on above: Result Comment: Elec tronically Signed By: Edita Cai.anusha\Date and Time Signed: 07/11/23 15:18 EST Interdisciplinary Note - Penelope n 07-11-2023 Interdisciplinary Note - OT OT [facility] six clicks score 14/24= SNF. Patient requires cga/min A w/ adls and transfers. Patient requires cues for safety and sequencing w/ all functional tasks. Inpatient OT services to follow daily to progress as able w/ functional skills. Normal [facility] Interdisciplinary Note - PTo n 07-11-2023 Interdisciplinary Note - PT PT eval completed; pt scores 18/24 on the AM-PAC 6-Clicks and will be seen daily while on acute unit. In light of pt's cognitive status and her impaired safety awareness recommend 24 hour supervision at discharge; she would benefit from SNF for therapy. Pt needs verbal and tactile cues with all functional mobility. Normal [facility] MRI Brain w/o Contraston MRI Brain w/o Contrast Exam Date/Time: 07/11/2023 15:30 EST Reason for Exam: Altered mental status Report IMPRESSION: NO ACUTE INTRACRANIAL PROCESS OR SIGNIFICANT CHANGE FROM 03/11/2023 IDENTIFIED. EXAM: MRI Brain w/o Contrast DATE: 07/11/2023 2:47 PM CLINICAL HISTORY: Altered mental status. COMPARISON: Head CT 07/10/2023 and head MRI 07/11/2023. TECHNIQUE: Multiplanar MR imaging of the head was performed without contrast. FINDINGS: Acute Change: There is no evidence of restricted diffusion to suggest an acute infarct. Hemorrhage: No evidence of intracranial hemorrhage. Mass Lesion/ Mass Effect: No evidence of an intracranial mass or extra-axial fluid collection. No significant mass effect. Chronic Change: Mild chronic white matter changes are again noted. Parenchyma: Mild volume loss for age. Ventricles: Normal caliber and morphology. Skull Base: Hypothalamic and pituitary region are grossly normal. Craniocervical junction is normal. No significant marrow replacement process. Vasculature: Major intracranial arterial structures, and dural venous sinuses show typical flow void, suggesting patency. Other: Paranasal sinuses and mastoid air cells are clear. The orbits are unremarkable. The extracranial soft tissues are unremarkable. Report Ordering Provider: Austyn Campos FINAL REPORT Dictated: 07/11/2023 3:37 pm Leon Moffett MD Signed (Electronic Signature): 07/11/2023 3:37 pm Signed by: Leon Moffett MD Transcribed by: SID Technologist: JASPREET Technical Comments None Normal [facility] Monitor Recordon 07-11-2023 Monitor Record [id number]. 00TIFF Normal [facility] Monitor Record [id number]#1. 00TIFF Normal [facility] Monitor Record [id number] 20 [id number]. 00TIFF Normal [facility] Monitor Record [id number] 20 [id number]#1. 00TIFF Normal [facility] Progress Note-Physicianon Progress Note-Physician Assessment/Plan 1. Acute encephalopathy (G93.40: Encephalopathy, unspecified) Multifactorial Address sleep-wake cycle--> agree with neurology and the addition of Seroquel Pending MRI brain Check thyroid studies And B12 levels Reviewed and appreciate neuro recommendations 2. History of dementia (Z86.59: Personal history of other mental and behavioral disorders) Not currently on dementia meds? Aricept/Namenda? Remote neuropsych evaluation cognitive dementia advance from mild to moderate. 3. Hyponatremia (E87.1: Hypo-osmolality and hyponatremia) This is mild, see above patient is no longer believed to be consuming alcohol. We will check thyroid function studies and observe for stability 4. Anxiety and depression (F41.9: Anxiety disorder, unspecified) We will continue Lexapro and BuSpar 5. Compulsive skin picking (F42.4: Excoriation (skin-picking) disorder) Continue Zyrtec as per neurology's recommendation on prior hospitalization avoid first generation antihistamines 6. Lumbar spinal stenosis (M48.061: Spinal stenosis, lumbar region without neurogenic claudication) Remote history of lower back surgery at [facility]. Patient is on Zanaflex we will continue but observe blood pressures. Will transiently hold Celebrex as patient will be on aspirin until evaluated by neurology for above 7. History of alcohol use (Z87.898: Personal history of other specified conditions) As stated above patient had a period of time after she was approximately 7 years ago where she consumed significant amounts of alcohol. 8. Hypertension (I10: Essential (primary) hypertension) Metoprolol was held with plans to do a Holter monitor on Tuesday. Will order as needed hydralazine 9. History of PSVT (paroxysmal supraventricular tachycardia) (Z86.79: Personal history of other diseases of the circulatory system) Patient had also had periods of nonsustained ventricular tachycardia. Metoprolol is being held with a Holter monitor scheduled for Tuesday to see if there is recurrence of the arrhythmias. Monitor serum potassium. Monitor on telemetry 10. Chronic GERD (K21.9: Gastro-esophageal reflux disease without esophagitis) Continue PPI 11. Obstructive sleep apnea (G47.33: Obstructive sleep apnea (adult) (pediatric)) Patient was tested remotely but did not tolerate CPAP. Question if this contributes to poor sleep hygiene and contributing to above 12. Psoriatic arthritis (L40.50: Arthropathic psoriasis, unspecified) She was followed by Dr. Taylor receives Remicade injections 13. Obesity (E66.9: Obesity, unspecified) 14. Encounter for deep vein thrombosis (DVT) prophylaxis (Z29.9: Encounter for prophylactic measures, unspecified) Heparin subcutaneous Orders: Add on Test Drug Screen Urine Ethanol Level Occupational Therapy Evaluate Patient, Develop a Plan of Care and Implement Plan Physical Therapy Evaluate Patient, Develop a Plan of Care and Implement Plan Subjective Seen and examined this a.m. Spoke with daughter Linh at bedside. With ambulation, patient does have a tendency to lean to the right. We are pending neuro evaluation with my exam however did review their recommendations, pending MRI. Patient needed frequent verbal cueing even just to ambulate and operate walker this a.m. While having breakfast she is grabbing at objects within the air. Objective Intake & Output This visit (24 hour periods starting at 07:00 EST) 07/11/23 * 07/10/23 07/09/23 Total Summary Intake mL 150 2 -- Output mL 450 -- -- Fluid Balance -300 2 -- Intake (2) Oral Intake mL 150 -- -- famotidine mL -- 2 -- Total 150 2 -- Output (1) Urine Voided mL 450 -- -- Total 450 -- -- Counts (1) Urine Count 1 -- -- * This column has not completed the indicated time period. Physical Exam General: alert, no acute distress patient is cheerful Skin: warm, dry Head: no trauma, normocephalic Neck: Trachea midline, no adenopathy, no tenderness Eye: normal conjunctiva, sclera clear ENMT: oral mucosa moist, no pharyngeal erythema or exudate Cardiovascular: regular rate and rhythm, normal peripheral perfusion Respiratory: Clear, respirations non labored Chest wall: no deformity. Gastrointestinal: soft, non distended, no tenderness, no guarding. Extremities: no deformity, no trauma Neurological: Patient was oriented to self and daughter, LOC appropriate for age, CN II-XII intact Psychiatric: cooperative, affect appropriate for age, Lab Results WBC: 6.2 E9/L (07/11/23 05:47:00) RBC: 3.8 E12/L Low (07/11/23 05:47:00) HGB: 12.7 gm/dL (07/11/23 05:47:00) Hct: 36.9 % (07/11/23 05:47:00) MCV: 95.9 fL (07/11/23 05:47:00) MCH: 32.9 pg (07/11/23 05:47:00) MCHC: 34.3 gm/dL (07/11/23 05:47:00) RDW: 13 % (07/11/23 05:47:00) Platelet: 171 E9/L (07/11/23 05:47:00) MPV: 7.7 fL (07/11/23 05:47:00) Neutro Auto: 58.4 % (07/11/23 05:47:00) (more content not included)... [facility] Comment on above: Result Comment: Elec tronically Signed By: Rimma Paez\.br\Date and Time Signed: 07/11/23 12:23 EST\.br\Electronically Co-Signed By: HARPER RODRIGUEZ, Valente\.br\Date and Time Co-Signed: 07/11/23 14:40 EST RAD - MRI Screening Formon 1 09-11-2022 RAD - MRI Screening Form [id number] 0TIFF [facility] Sed Rate Automatedon 023 ESR (Bld) [Velocity] 46 mm/h High 0-34 [facility] Comment on above: Performed By: #### 1 [id number], 8155714, 8818311, 9995825, 02233279 #### [facility] [address] [place] [address] TSH With T4fr Reflexon 07-11 TSH Qn 0.78 m[IU]/L Normal 0.34-5.60 [facility] Comment on above: Performed By: #### 1 0026137, 4869719, 4527659, 9873452, 99402380 #### [facility] [address] [place] [address] Troponin 6 Hr.on 07-11-2023 Troponin I.cardiac [Mass/Vol] 11.30 pg/mL Normal 10.10-27.10 [facility] Comment on above: Result Comment: The 95% CI (Confidence Interval) PPV (Positive Predictive Value) for myocardial infarction in females is 38 pg/mL, in males 51 pg/mL. The results should be used in conjunction with clinical conditions of myocardial infarction. (Access High Sensitivity Troponin I Instructions For Use, [employer]ire, March 2018) Performed By: #### 1 6691042, 1396884, 5361905, 8293032, 60109741 #### [facility] [address] [place] [address] Troponin 9 Hr.on 07-11-2023 Troponin I.cardiac [Mass/Vol] 11.70 pg/mL Normal 10.10-27.10 [facility] Comment on above: Result Comment: The 95% CI (Confidence Interval) PPV (Positive Predictive Value) for myocardial infarction in females is 38 pg/mL, in males 51 pg/mL. The results should be used in conjunction with clinical conditions of myocardial infarction. (Access High Sensitivity Troponin I Instructions For Use, [employer]ire, March 2018) Performed By: #### 1 6184841, 0697948, 7883246, 9653508, 57003201 #### [facility] [address] [place] [address] U Drug Screenon 07-11-2023 Amphetamines Screen method >1000 ng/mL Ql (U) Negative Normal Negative [facility] Comment on above: Result Comment: Nega tive Cutoff: <1000 ng/mL Performed By: #### 1 4197499, 4485527, 8736503, 9460752, 39190943 #### [facility] [address] [place] [address] Barbiturates Screen Ql (U) Negative Normal Negative [facility] Comment on above: Result Comment: Nega tive Cutoff: <200 ng/mL Performed By: #### 1 8315908, 5381419, 1418381, 9634960, 73893363 #### [facility] [address] [place] [address] Benzodiazepines Ql (U) Negative Normal Negative [facility] Comment on above: Result Comment: Nega tive Cutoff: <200 ng/mL Performed By: #### 1 9573122, 6495588, 9306822, 5327539, 78426524 #### [facility] [address] [place] [address] Cocaine Ql (U) Negative Normal Negative [facility] Comment on above: Result Comment: Nega tive Cutoff: <300 ng/mL Performed By: #### 1 0780936, 9376534, 3091065, 7974744, 21405025 #### [facility] [address] [place] [address] Opiates Screen Ql (U) Negative Normal Negative [facility] Comment on above: Result Comment: Nega tive Cutoff: <300 ng/mL Performed By: #### 1 7762921, 2555475, 1403930, 1720668, 57652509 #### [facility] [address] [place], [place] [address] Phencyclidine Screen method >25 ng/mL Ql (U) Negative Normal Negative [facility] Comment on above: Result Comment: Nega tive Cutoff: <25 ng/mL These drug screen results are to be used for medical (i.e., treatment) purposes only. Unconfirmed drug screening results must not be used for non-medical purposes (e.g., employment testing, legal testing). Performed By: #### 1 3746134, 5890494, 4711085, 5801856, 49168262 #### [facility] [address] [place] [address] Tetrahydrocannabinol Screen method >50 ng/mL Ql (U) Negative Normal Negative [facility] Comment on above: Result Comment: Nega tive Cutoff: <50 ng/mL Performed By: #### 1 9587106, 0788224, 4350923, 0341303, 35073088 #### [facility] [address] [place] [address] Vit B12on 07-11-2023 Cobalamin (Vitamin B12) [Mass/Vol] 340 pg/mL Normal 50-1500 [facility] Comment on above: Performed By: #### 1 9534001, 1055997, 9095674, 8275174, 03716711 #### [facility] [address] [place] [address] XR Chest Single Viewon 07-11 XR Chest Single View Exam Date/Time: 07/10/2023 17:38 EST Reason for Exam: Shortness of breath (SOB) Report IMPRESSION: STABLE CARDIOMEGALY. CLINICAL HISTORY: Shortness of breath (SOB) COMPARISON: March 10, 2023 FINDINGS: Osseous structures intact. Cardiopericardial silhouette enlarged, unchanged. Lungs clear. Ordering Provider: Octaviano Govea FINAL REPORT Dictated: 07/11/2023 8:25 am Edmond Villalpando MD Signed (Electronic Signature): 07/11/2023 8:25 am Signed by: Edmond Villalpando MD Transcribed by: SID Technologist: CYNTHIA Technical Comments Radiation Dose: Ka,r in mGy = na DAP = na Normal [facility] eGFRon 07-11-2023 GFR/1.73 sq M.predicted among non-blacks MDRD (S/P/Bld) [Vol rate/Area] 91 mL/min/1.73 m2 Normal >=59 [facility] Comment on above: Order Comment: Order added by Discern Expert. Result Comment: Cnmt adelso kidney disease could be indicated at eGFR's of less than 60 mL/min/1.73m2. Kidney failure is indicated at less than 15 mL/min/1.73m2. Performed By: #### 1 5194344, 7216334, 1093071, 3825648, 33703125 #### [facility] [address] [place] [address] Auto Diffon 07-10-2023 Basophils/100 WBC (Bld) 0.4 % Normal 0.0-2.0 [facility] Comment on above: Order Comment: Order Added by Discern Expert. Performed By: #### 1 9200907, 4881178, 1886940, 7858988, 46128931 #### [facility] [address] [place] [address] Basophils/Leukocytes Auto (Bld) [Pure # fraction] 0.0 E9/L Normal 0.0-0.2 [facility] Comment on above: Order Comment: Order Added by Discern Expert. Performed By: #### 1 8139072, 9489501, 7795254, 3320354, 27369829 #### [facility] [address] [place] [address] Eosinophils/100 WBC (Bld) 2.4 % Normal 0.0-8.0 [facility] Comment on above: Order Comment: Order Added by Discern Expert. Performed By: #### 1 9196173, 2224306, 3516512, 0707137, 83569039 #### [facility] [address] [place] [address] Eosinophils/Leukocytes Auto (Bld) [Pure # fraction] 0.1 E9/L Normal 0.0-0.5 [facility] Comment on above: Order Comment: Order Added by Discern Expert. Performed By: #### 1 9691067, 0541085, 8952084, 8962167, 83297748 #### [facility] [address] [place] [address] Lymphocytes/100 WBC (Bld) 40.0 % Normal 14.0-50.0 [facility] Comment on above: Order Comment: Order Added by Discern Expert. Performed By: #### 1 4189727, 7608664, 8228366, 0146579, 25335425 #### [facility] [address] [place] [address] Lymphocytes/Leukocytes Auto (Bld) [Pure # fraction] 2.2 E9/L Normal 1.0-4.0 [facility] Comment on above: Order Comment: Order Added by Discern Expert. Performed By: #### 1 6939031, 3167372, 2154214, 4551592, 51755057 #### [facility] [address] [place] [address] Monocytes/100 WBC (Bld) 9.2 % Normal 4.0-14.0 [facility] Comment on above: Order Comment: Order Added by Discern Expert. Performed By: #### 1 2587782, 5328993, 5177238, 7420187, 64019271 #### [facility] [address] [place] [address] Monocytes/Leukocytes Auto (Bld) [Pure # fraction] 0.5 E9/L Normal 0.2-1.0 [facility] Comment on above: Order Comment: Order Added by Discern Expert. Performed By: #### 1 2706229, 0122137, 1313975, 4808098, 80570800 #### [facility] [address] [place] [address] Neutrophils/100 WBC (Bld) 48.0 % Normal 36.0-75.0 [facility] Comment on above: Order Comment: Order Added by Discern Expert. Performed By: #### 1 8094787, 7219461, 0383953, 1632157, 52065323 #### [facility] [address] [place] [address] Neutrophils/Leukocytes Auto (Bld) [Pure # fraction] 2.7 E9/L Normal 2.0-7.5 [facility] Comment on above: Order Comment: Order Added by Discern Expert. Performed By: #### 1 6056934, 3437497, 2849419, 6958331, 80716502 #### [facility] [address] [place] [address] BMPon 07-10-2023 Creatinine [Mass/Vol] 0.6 mg/dL Normal 0.5-1.3 [facility] Comment on above: Performed By: #### 1 6210854, 2921751, 9363189, 5495947, 69823050 #### [facility] [address] [place] [address] Urea nitrogen [Mass/Vol] 15 mg/dL Normal 5-21 [facility] Comment on above: Performed By: #### 1 2088086, 4561527, 1383608, 6621708, 54505466 #### [facility] [address] [place] [address] Urea nitrogen/Creatinine [Mass ratio] 25 No Units High 10-20 [facility] Comment on above: Performed By: #### 1 9550728, 5113866, 7227982, 8444404, 99004007 #### [facility] [address] [place] [address] Anion gap [Moles/Vol] 11 mmol/L Normal 6-16 [facility] Comment on above: Performed By: #### 1 0306592, 3419566, 3141681, 0411659, 77714059 #### [facility] [address] [place] [address] Calcium [Mass/Vol] 8.8 mg/dL Low 8.9-11.1 [facility] Comment on above: Performed By: #### 1 9398270, 2512549, 4931456, 1544216, 85784814 #### [facility] [address] [place] [address] Chloride [Moles/Vol] 100 mmol/L Low 101-111 Fish [facility] Comment on above: Performed By: #### 1 8746418, 8265157, 2015094, 7210181, 51076757 #### [facility] [address] [place] [address] CO2 [Moles/Vol] 26 mmol/L Normal 21-31 [facility] Comment on above: Performed By: #### 1 7881238, 0420772, 5628543, 0104423, 16294029 #### [facility] [address] [place] [address] Glucose [Mass/Vol] 93 mg/dL Normal 55-199 [facility] Comment on above: Result Comment: If t his glucose result represents a fasting glucose, interpretation should refer to the following reference range: 55-99 mg/dL Performed By: #### 1 0151252, 5155307, 4483580, 0919942, 52488856 #### [facility] [address] [place] [address] Potassium [Moles/Vol] 3.8 mmol/L Normal 3.5-5.3 [facility] Comment on above: Performed By: #### 1 6876844, 1950360, 8658485, 2598115, 03141127 #### [facility] [address] [place] [address] Sodium [Moles/Vol] 133 mmol/L Low 135-145 [facility] Comment on above: Performed By: #### 1 3397205, 7485796, 7797794, 9259086, 29118751 #### [facility] [address] [place] [address] CBC w/ Auto Diffon 3 Erythrocyte distribution width (RBC) [Ratio] 12.9 % Normal 10.9-14.2 [facility] Comment on above: Performed By: #### 1 3641292, 9864216, 0376935, 2676920, 29372700 #### [facility] [address] [place] [address] Hematocrit (Bld) [Volume fraction] 40.5 % Normal 34.0-46.0 [facility] Comment on above: Performed By: #### 1 0715647, 3976580, 0388259, 9622944, 83118833 #### [facility] [address] [place] [address] Hemoglobin (Bld) [Mass/Vol] 13.6 g/dL Normal 12.0-16.0 [facility] Comment on above: Performed By: #### 1 5477290, 7488695, 9152700, 8064599, 78792867 #### [facility] [address] [place] [address] MCH (RBC) [Entitic mass] 32.2 pg Normal 27.0-34.0 [facility] Comment on above: Performed By: #### 1 0763129, 9285848, 6636313, 3346156, 33153791 #### [facility] [address] [place] [address] MCHC (RBC) [Mass/Vol] 33.5 g/dL Normal 31.4-36.0 [facility] Comment on above: Performed By: #### 1 6340492, 5217749, 5465282, 2094858, 30285228 #### [facility] [address] [place] [address] MCV (RBC) [Entitic vol] 96.4 fL Normal 80.0-100.0 [facility] Comment on above: Performed By: #### 1 3152750, 6713863, 1064824, 0446247, 19235328 #### [facility] [address] [place] [address] Platelet mean volume (Bld) [Entitic vol] 8.0 fL Normal 6.4-10.8 [facility] Comment on above: Performed By: #### 1 3961201, 9465775, 1513942, 8772096, 34688178 #### [facility] [address] [place] [id number] Platelets (Bld) [#/Vol] 186.0 E9/L Normal 150.0-500.0 [facility] Comment on above: Performed By: #### 1 [id number] #### [facility] [address] [place] [id number] RBC (Bld) [#/Vol] 4.2 E12/L Low 4.3-5.9 [facility] Comment on above: Performed By: #### 1 [id number] #### [facility] [address] [place] [address] WBC corrected for nucl RBC Auto (Bld) [#/Vol] 5.6 E9/L Normal 4.0-11.0 [facility] Comment on above: Performed By: #### 1 [id number] #### [facility] [address] [place] [address] CHEMISTRYOrdered By: SYSTEM SYSTEM on 07-10-2023 Troponin I.cardiac [Mass/Vol] 11.30 pg/mL Normal 10.10 - 27.10 pg/mL [facility] Comment on above: Interpretive Data: T he 95% CI (Confidence Interval) PPV (Positive Predictive Value) for myocardial infarction in females is 38 pg/mL, in males 51 pg/mL. The results should be used in conjunction with clinical conditions of myocardial infarction. (Access High Sensitivity Troponin I Instructions For Use, Qire, March 2018) Troponin I.cardiac [Mass/Vol] 11.00 pg/mL Normal 10.10 - 27.10 pg/mL [facility] Comment on above: Interpretive Data: T he 95% CI (Confidence Interval) PPV (Positive Predictive Value) for myocardial infarction in females is 38 pg/mL, in males 51 pg/mL. The results should be used in conjunction with clinical conditions of myocardial infarction. ([facility] High Sensitivity Troponin I Instructions For Use, Qire, March 2018) Amphetamines Screen method >1000 ng/mL Ql (U) Negative 6 (07/10/23 5:10 PM) Normal Negative [facility] Comment on above: Interpretive Data: N egative Cutoff: <1000 ng/mL Barbiturates Screen Ql (U) Negative 7 (07/10/23 5:10 PM) Normal Negative [facility] Comment on above: Interpretive Data: N egative Cutoff: <200 ng/mL Benzodiazepines Ql (U) Negative 1 (07/10/23 5:10 PM) Normal Negative [facility] Comment on above: Interpretive Data: N egative Cutoff: <200 ng/mL Cocaine Ql (U) Negative 2 (07/10/23 5:10 PM) Normal Negative [facility] Comment on above: Interpretive Data: N egative Cutoff: <300 ng/mL Opiates Screen Ql (U) Negative 3 (07/10/23 5:10 PM) Normal Negative [facility] Comment on above: Interpretive Data: N egative Cutoff: <300 ng/mL Phencyclidine Screen method >25 ng/mL Ql (U) Negative 4 (07/10/23 5:10 PM) Normal Negative [facility] Comment on above: Interpretive Data: N egative Cutoff: <25 ng/mL These drug screen results are to be used for medical (i.e., treatment) purposes only. Unconfirmed drug screening results must not be used for non-medical purposes (e.g., employment testing, legal testing). Tetrahydrocannabinol Screen method >50 ng/mL Ql (U) Negative 5 (07/10/23 5:10 PM) Normal Negative [facility] Comment on above: Interpretive Data: N egative Cutoff: <50 ng/mL CHEMISTRYOrdered By: Lab ROP User on 07-10-2023 POC Username [email or web address] Invalid Interpretation Code [facility] POC Subsection Sodium [Moles/Vol] [id number] mmol/L Invalid Interpretation Code [facility] POC Subsection Sodium [Moles/Vol] [id number] mmol/L Invalid Interpretation Code [facility] POC Subsection CT Head or Brain w/o Contras ton 07-10-2023 CT Head or Brain w/o Contrast Exam Date/Time: 07/10/2023 17:38 EST Reason for Exam: Delirium;Other (please specify) Report IMPRESSION: No acute intracranial process. EXAMINATION: CT Head or Brain w/o Contrast HISTORY: Delirium. Altered mental status. TECHNIQUE: Serial axial images without IV contrast were obtained from the vertex to the foramen magnum, with sagittal and coronal reconstructions. All CT scans at this facility use dose modulation, iterative reconstruction, and/or weight based dosing when appropriate to reduce radiation dose to as low as reasonably achievable. COMPARISON: 03/10/2023 RESULT: Acute change: No evidence of an acute infarct or other acute parenchymal process. Hemorrhage: No evidence of acute intracranial hemorrhage. Mass Lesion / Mass Effect: There is no evidence of an intracranial mass or extraaxial fluid collection. No significant mass effect. Chronic change: Scattered patchy foci of low attenuation are present within supratentorial white matter which is a nonspecific finding but likely represents mild microvascular ischemia. Decreased attenuation bilateral basal ganglia, suggestive of remote lacunar infarcts, unchanged. Vascular calcifications. Parenchyma: There is mild generalized volume loss. Ventricles: The ventricles are within normal limits of size and configuration for age. Paranasal sinuses and skull base: The visualized paranasal sinuses are grossly clear. Mastoid air cells clear. The skull base is unremarkable. Soft tissues unremarkable. Report Ordering Provider: Octaviano Govea FINAL REPORT Dictated: 07/10/2023 5:52 pm Juaquin Allen MD Signed (Electronic Signature): 07/10/2023 5:52 pm Signed by: Juaquin Allen MD Transcribed by: SID Technologist: CYNTHIA Schultz [facility] Capillary Glucose POCOrdered By: Lab ROPUser on 07-10-2023 Glucose [Mass/Vol] 90 mg/dL Normal 55-99 [facility] P OC Subsection Comment on above: Result Comment: Анна aguirre RN/ Performed By: #### 1 [id number], [id number] #### [facility] [address] [place] [address] Consent for Treatmenton Consent for Treatment [id number] Normal [facility] ED Clinical Summaryon 2022 ED Clinical Summary [address] [address] ED Clinical Summary Person Information Name: CARIDAD [place]OVER [place] Age: 82 Years : 1940 Sex: Female Language: Palauan PCP: EDMOND PACHECO DO Marital Status: Phone: [phone] Visit Id: Visit Reason: Altered mental status; ALTERED MENTAL STATUS - VERY CONFUSED - FRONTAL HEADACHE Speciality: Acuity: 2 Enc Type: Observation Med Service: Emergency Arrival: 07/10/2023 16:39:36 Discharge: LOS: 000 03:48 Checkin: 07/10/2023 16:39:36 Checkout: 07/10/2023 20:27:17 Dispo Type: Admitted as IP to this [facility] EVENTS: Event Name Event Status Request Date/Time Start Date/Time Complete Date/Time Arrive Complete 07/10/2023 16:39:36 07/10/2023 16:39:36 07/10/2023 16:39:36 Document Home Meds Request 07/10/2023 16:39:36 Triage Complete 07/10/2023 16:39:36 07/10/2023 16:58:42 07/10/2023 16:58:42 Bed Assign Complete 07/10/2023 16:50:49 07/10/2023 16:50:49 07/10/2023 16:50:49 Dr Exam Complete 07/10/2023 16:50:49 07/10/2023 17:22:59 07/10/2023 17:22:59 RN Exam Complete 07/10/2023 16:50:49 07/10/2023 17:31:15 07/10/2023 17:31:15 EKG Complete 07/10/2023 16:58:34 07/10/2023 17:15:10 Pending Labs Complete 07/10/2023 17:01:28 07/10/2023 17:01:28 07/10/2023 17:01:29 Pending Labs Request 07/10/2023 17:11:28 Lab Complete 07/10/2023 17:11:28 07/10/2023 18:12:20 Urine Collect Complete 07/10/2023 17:11:28 07/10/2023 17:28:38 X-Ray Complete 07/10/2023 17:11:28 07/10/2023 17:26:37 07/10/2023 17:38:17 CT Complete 07/10/2023 17:11:28 07/10/2023 17:12:46 07/10/2023 17:38:05 Pending Labs Complete 07/10/2023 17:17:39 07/10/2023 17:17:39 07/10/2023 18:12:21 Lab Complete 07/10/2023 17:17:39 07/10/2023 17:17:39 07/10/2023 18:12:21 Pending Labs Complete 07/10/2023 17:20:50 07/10/2023 17:20:50 07/10/2023 17:20:56 Lab Complete 07/10/2023 17:20:50 07/10/2023 17:20:50 07/10/2023 17:20:56 Registration Complete 07/10/2023 17:22:59 07/10/2023 17:24:27 07/10/2023 17:24:27 Reg Complete Request 07/10/2023 17:24:27 Reg Bed Request Complete 07/10/2023 17:24:27 07/10/2023 17:24:27 07/10/2023 17:24:27 Fall Risk Request 07/10/2023 17:31:16 Wet Read Request 07/10/2023 17:38:17 Consult Request 07/10/2023 19:14:17 Hospitalist Consult Request 07/10/2023 19:14:17 Bed Request Request 07/10/2023 19:37:21 Reg Bed Request Complete 07/10/2023 19:37:21 07/10/2023 19:47:43 07/10/2023 19:47:43 Admit Request 07/10/2023 19:37:21 Patient Care Request 07/10/2023 19:47:44 Patient Care Request 07/10/2023 19:47:44 Patient Care Request 07/10/2023 19:47:44 Patient Care Request 07/10/2023 19:47:44 ADDRESS: [address] [place] [phone] [facility] DOC NOTES: MEDICAL INFORMATION: Prescriptions Given: Medications to Continue with No Changes Other Medications busPIRone (busPIRone 15 mg Tab) 1 Tablets By Mouth 2 times a day. celecoxib (CeleBREX 200 mg Cap) 1 Capsules By Mouth 2 times a day. cetirizine (cetirizine 10 mg oral capsule) 1 Capsules By Mouth at bedtime. Refills: 0. cholecalciferol (Vitamin D3 2000 intl units) 2,000 International unit By Mouth every day. donepezil (Aricept 10 mg Tab) 1 Tablets By Mouth once a day (at bedtime). Refills: 0. escitalopram (Lexapro 20 mg Tab) 1 Tablets By Mouth every day. Fish Oil 1 tab By Mouth every day. folic acid (Folate 0.4 mg Tab) 1 Tablets By Mouth every day. infliximab (Remicade) Dr Taylor. latanoprost ophthalmic (latanoprost Opth 0.005% Batool) 1 drop Both eyes daily. magnesium oxide (magnesium oxide 250 mg oral tablet) 1 Tablets By Mouth every day. melatonin (Melatonin 1 mg oral tablet) 1 Milligram By Mouth once a day (at bedtime). Refills: 0. metoprolol (metoprolol 25 mg ER Tab) 1 Tablets By Mouth every day. multivitamin (Multiple Vitamins Tab) 1 Tablets By Mouth every day. omeprazole (omeprazole 20 mg Cap-DR) 1 Capsules By Mouth once a day (in the morning). tizanidine (tiZANidine 4 mg Tab) 1 Tablets By Mouth at bedtime. States 1-2 tabs orally at bedtime. PATIENT EDUCATION INFORMATION: Instructions: Follow up: DIAGNOSIS: 1:History of dementia; 2:Altered mental status Normal [facility] ED Note-Physicianon 07-10-20 ED Note-Physician Basic Information Time Seen: Ryan Boss MD 07/10/2023 17:23 Chief Complaint increased AMS since 07/09 1000, Pt A&O x 1. Pt hasnhx of uti History of Present Illness Patient brought here by her daughter because of a change in her mental status. Daughter states that today she did not recognize her surroundings she did not recognize her daughter. This is apparently a sharp departure from her normal baseline dementia. Her dementia Review of Systems A 10 point review of systems is negative except as noted above. Medical and Surgical History: Reviewed and noted Social history: Lives at home Tobacco: Denies Physical Exam Vitals & Measurements T: 37.4 ?C(Oral) HR: 85(Monitored) RR: 18 BP: 154/117 SpO2: 95% HT: 152.4 cm WT: 88.1 kg BMI: 37.93 This is a pleasant overweight 82-year-old female. She is awake and attentive she is oriented to person and place. She does know that it is July she does not state her age. She answers some questions appropriately. She does not recall what she had to eat today. The son was in the room during my interview. He states that these short-term memory issues would be typical for her. Pupils are round equal and reactive extraocular muscles are conjugate and full. Visual fan appear to be grossly intact. There is no facial asymmetry. The oral mucosa was moist. The heart was regular without murmur gallop or rub lungs were clear to auscultation. The abdomen is obese soft but nontender. The patient's motor strength both upper and lower extremities is intact strong and symmetric. Both finger-nose and heel toe maneuver were executed with fairly good coordination. Simple touch appears to be intact but it was difficult to have the patient pay attention to the instructions given. Medical Decision Making additional history was given by the daughter who sees her on a daily basis. The daughter states that there was a similar episode back in March following a fall. Her mental status deteriorated her memory got worse at that time but recovered after a stay in the [facility] facility. The patient lives alone at home and will not be safe at home in this current mental state. We will search for correctable underlying cause. If none is found the patient will still be admitted here for neurology consult. She does follow with [facility]. I discussed case with Dr. Drew he will except the patient for admission. He is aware that the patient consults with [facility] Assessment/Plan 1. History of dementia (Z86.59: Personal history of other mental and behavioral disorders) 2. Altered mental status (R41.82: Altered mental status, unspecified) Orders: Capillary Glucose POC ED Physician consult Hospitalist for continued care Disposition Plan Patient Discharge Condition Unchanged Discharge Disposition Admit to observation neuro nurses station Discharge Prescription List Prescriptions No active prescription medications Follow-up No qualifying data available Problem List/Past Medical History Ongoing Alcohol use disorder Benign neoplasm of colon Dementia Diabetes mellitus without complication Glaucoma Herpes labialis History of ventricular tachycardia Immunodeficiency due to treatment with immunosuppressive medication Lumbar spondylosis Neurodermatitis Nocturia Obesity Obstructive sleep apnea syndrome Palpitations Psoriatic arthritis Psychophysical visual disturbance Recurrent falls Urinary frequency Visual hallucinations Historical Arthritis Deformity of metatarsal Ventricular tachycardia Procedure/Surgical History Closed reduction of nasal fracture (02/05/2021), Helene osteotomy second and third metatarsal. capsulotomy third metatarsophalangeal joint. Helene osteotomy second metatarsophalangeal joint. proximal interphalangeal joint arthroplasty left second digit and to the left third digit (09/19/2014), Cataract (2012), Back, Right hammer toe and bunionectomy, RIght knee arthroscopy, tubal ligation. Medications Inpatient No active inpatient medications Home Aricept 10 mg Tab, 10 mg= 1 tab(s), Oral, Once a day (at bedtime) busPIRone 15 mg Tab, 15 mg= 1 tab(s), Oral, BID CeleBREX 200 mg Cap, 200 mg= 1 cap(s), Oral, BID cetirizine 10 mg oral capsule, 10 mg= 1 cap(s), Oral, Bedtime Fish Oil, 1 tab, Oral, Daily Folate 0.4 mg Tab, 0.4 mg= 1 tab(s), Oral, Daily latanoprost Opth 0.005% Batool, See Instructions, Not taking Lexapro 20 mg Tab, 20 mg= 1 tab(s), Oral, Daily magnesium oxide 250 mg oral tablet, 250 mg= 1 tab(s), Oral, Daily, Not taking Melatonin 1 mg oral tablet, 1 mg, Oral, Once a day (at bedtime) metoprolol 25 mg ER Tab, 25 mg= 1 tab(s), Oral, Daily Multiple Vitamins Tab, 1 tab(s), Oral, Daily, Not taking omeprazole 20 mg Cap-DR, 20 mg= 1 cap(s), Oral, qAM Remicade tiZANidine 4 mg Tab, 4 mg= 1 tab(s), Oral, Bedtime Vitamin D3 2000 intl units, 2000 International_Unit, Oral, Daily, Not taking Allergies liang (more content not included)... Normal [facility] Comment on above: Result Comment: Elec tronically Signed By: Gera RODRIGUEZ, Ryan\.br\Date and Time Signed: 07/10/23 19:52 EST ED Patient Education Noteon 07-10-2023 ED Patient Education Note Normal [facility] ED Patient Summaryon 023 ED Patient Summary [address] [address] Patient Discharge Instructions Person Information Name: CARIDAD GLOVER I Age: 82 Years Arrival Date: 07/10/2023 16:39:36 Discharge Diagnosis: 1:History of dementia; 2:Altered mental status Primary Care Physician: EDMOND PACHECO DO Provider Information Primary Provider: Ryan Boss MD Advanced Bleach Analyst:None The exam and treatment you received in the Emergency Department were for an urgent problem and are not intended as complete care. It is important that you follow up with a doctor, nurse practitioner, or physician?s reference library assistant for ongoing care. If your symptoms become worse or you do not improve as expected and you are unable to reach your usual health care provider, you should return to the Emergency Department. We are available 24 hours a day. JV CARIDAD I has been given the following list of patient education materials, prescriptions and follow-up instructions: Follow-up Instructions: In the event that this physician does not participate in your insurance network, please consult with your insurance company to find a nearby participating provider. Patient Education Materials: A MESSAGE TO ALL PATIENTS REGARDING OPIOIDS PRESCRIPTION OPIOIDS: WHAT YOU NEED TO KNOW Prescription opioids can be used to help relieve oknuhypq-jh-djipts pain and are often prescribed following a surgery or injury, or for certain health conditions. These medications can be an important part of the treatment but also come with serious risks. It is important to work with your healthcare provider to make sure you are getting the safest, most effective care. WHAT ARE THE RISKS AND SIDE EFFECTS OF OPIOID USE? Prescription opioids carry serious risks of addiction and overdose, especially with prolonged use. An opioid overdose, often marked by slowed breathing, can cause sudden . The use of prescription opioids can have a number of side effects as well, even when taken as directed: ? Tolerance?meaning you might need to take more of the medication for the same pain relief ? Physical dependence?meaning you have symptoms of withdrawal when a medication is stopped ? Increased sensitivity to pain ? Constipation ? Nausea, vomiting, and dry mouth ? Sleepiness and dizziness ? Confusion ? Depression ? Low levels of testosterone that can result in lower sex drive, energy, and strength ? Itching and sweating RISKS ARE GREATER WITH: ? History of drug misuse, substance use disorder, or overdose ? Mental health conditions (such as depression or anxiety) ? Sleep apnea ? Older age (65 years and older) ? Avoid alcohol while taking prescription opioids. Also, unless specifically advised by your health care provider, medications to avoid include: ? Benzodiazepines (such as Xanax or Valium) ? Muscle relaxants (such as Soma or Flexeril) ? Hypnotics (such as Ambien or Lunesta) ? Other prescription opioids KNOW YOUR OPTIONS Talk to your health care provider about ways to manage your pain that don?t involve prescription opioids. Some of these options may actually work better and have fewer risks and side effects. Options may include: ? Pain relievers such as acetaminophen, ibuprofen, and naproxen ? Some medication that are also used for depression or seizures ? Physical therapy and exercise ? Cognitive behavioral therapy, a psychological, goal-directed approach, in which patients learn how to modify physical, behavioral, and emotional triggers of pain and stress. IF YOU ARE PRESCRIBED OPIOIDS FOR PAIN: ? Never take opioids in greater amounts or more often than prescribed. ? Follow up with your primary health care provider. o Work together to create a plan on how to manage your pain. o Talk about ways to help manage your pain that don?t involve prescription opioids. o Talk about any and all concerns and side effects. ? Help prevent misuse and abuse o Never sell or share prescription opioids. o Never use another person?s prescription opioids. ? Store prescription opioids in a secure place and out of reach of others (this may include visitors, children, friends, and family). ? Safely dispose of unused prescription opioids: Find your community drug take-back program or your pharmacy mail-back program, or flush them down the toilet, following guidance from the Food and Drug Administration (www.fda.gov/Drugs/Res ourcesForYou). ? Visit www.cdc.gov/drugoverdo se to learn about the risks of opioids abuse and overdose. ? If you believe you may be struggling with addiction, tell your health pharmacist critical care and ask for guidance or call [facility] National Helpline at 5-155-354-GWRM. v Source: US Department of Health and Human Services/Center for Disease Control & Prevention [facility] Medications Given: Medication (more content not included)... Normal [facility] HEMATOLOGYOrdered By: SYSTEM SYSTEM on 07-10-2023 Basophils/100 WBC (Bld) 0.4 % Normal 0.0 - 2.0 % [facility] HemeAutoSS Basophils/Leukocytes Auto (Bld) [Pure # fraction] 0.0 E9/L Normal 0.0 - 0.2 E9/L [facility] HemeAutoSS Eosinophils/100 WBC (Bld) 2.4 % Normal 0.0 - 8.0 % [facility]eAutoSS Eosinophils/Leukocytes Auto (Bld) [Pure # fraction] 0.1 E9/L Normal 0.0 - 0.5 E9/L [facility]eAutoSS Lymphocytes/100 WBC (Bld) 40.0 % Normal 14.0 - 50.0 % [facility]eAutoSS Lymphocytes/Leukocytes Auto (Bld) [Pure # fraction] 2.2 E9/L Normal 1.0 - 4.0 E9/L [facility]eAutoSS Monocytes/100 WBC (Bld) 9.2 % Normal 4.0 - 14.0 % [facility]eAutoSS Monocytes/Leukocytes Auto (Bld) [Pure # fraction] 0.5 E9/L Normal 0.2 - 1.0 E9/L [facility]eAutoSS Neutrophils/100 WBC (Bld) 48.0 % Normal 36.0 - 75.0 % [facility]eAutoSS Neutrophils/Leukocytes Auto (Bld) [Pure # fraction] 2.7 E9/L Normal 2.0 - 7.5 E9/L [facility] HEMATOLOGYOrdered By: Edita Norwood on 07-10-2023 Erythrocyte distribution width (RBC) [Ratio] 12.9 % Normal 10.9 - 14.2 % [facility] Hematocrit (Bld) [Volume fraction] 40.5 % Normal 34.0 - 46.0 % [facility] Hemoglobin (Bld) [Mass/Vol] 13.6 g/dL Normal 12.0 - 16.0 gm/dL [facility] MCH (RBC) [Entitic mass] 32.2 pg Normal 27.0 - 34.0 pg [facility]eAuto[facility] MCHC (RBC) [Mass/Vol] 33.5 g/dL Normal 31.4 - 36.0 gm/dL [facility] MCV (RBC) [Entitic vol] 96.4 fL Normal 80.0 - 100.0 fL [facility]eAutoSS Platelet mean volume (Bld) [Entitic vol] 8.0 fL Normal 6.4 - 10.8 fL [facility]eAutoSS Platelets (Bld) [#/Vol] 186.0 E9/L Normal 150. 0 - 500.0 E9/L [facility]eAutoSS RBC (Bld) [#/Vol] 4.2 E12/L Low 4.3 - 5.9 E12/L [facility] HemeAutoSS WBC corrected for nucl RBC Auto (Bld) [#/Vol] 5.6 E9/L Normal 4.0 - 11.0 E9/L [facility] HemeAutoSS Troponin 0 Hr.on 07-10-2023 Troponin I.cardiac [Mass/Vol] 10.20 pg/mL Normal 10.10-27.10 [facility] Comment on above: Result Comment: The 95% CI (Confidence Interval) PPV (Positive Predictive Value) for myocardial infarction in females is 38 pg/mL, in males 51 pg/mL. The results should be used in conjunction with clinical conditions of myocardial infarction. (Access High Sensitivity Troponin I Instructions For Use, Qire, March 2018) Performed By: #### 1 [id number] #### [facility] [address] [place] [address] Troponin 3 Hr.on 07-10-2023 Troponin I.cardiac [Mass/Vol] 11.00 pg/mL Normal 10.10-27.10 [facility] Comment on above: Result Comment: The 95% CI (Confidence Interval) PPV (Positive Predictive Value) for myocardial infarction in females is 38 pg/mL, in males 51 pg/mL. The results should be used in conjunction with clinical conditions of myocardial infarction. (Access High Sensitivity Troponin I Instructions For Use, Qire, March 2018) Performed By: #### 1 [id number] ####[facility] [address] [place] [address] UA With Cult Reflexon 2022 Bilirubin Ql (U) Negative Normal Negative [facility] Comment on above: Performed By: #### 1 [id number] ####[facility] [address] [place] [address] Clarity (U) CLEAR Normal Clear [facility] Comment on above: Performed By: #### 1 [id number] ####[facility] [address] [place] [address] Color (U) YELLOW Normal Yellow [facility] Comment on above: Performed By: #### 1 [id number] ####[address] [place] [address] Epithelial cells.squamous LM.HPF (Urine sed) [#/Area] 3-4 Normal 0-2 [facility] Comment on above: Performed By: #### 1 [id number] ####[address] [address] Glucose Test strip (U) [Mass/Vol] Negative Normal Negative [facility] Comment on above: Performed By: #### 1 [id number] ####[address] [address] Hemoglobin Ql (U) Negative Normal Negative [facility] Comment on above: Performed By: #### 1 [id number] ####[address] [address] Ketones (U) [Mass/Vol] Negative Normal Negative [facility] Comment on above: Performed By: #### 1 [id number] ####[address] [address] [place].plasma/[place]. RBC (Bld) [Mass ratio] 0-3 Normal 0-3 [facility] Comment on above: Performed By: #### 1 [id number] ####[address] [address] Nitrite Ql (U) Negative Normal Negative [facility] Comment on above: Performed By: #### 1 [id number] ####[address] [address] pH (U) 6.5 [pH] Invalid Interpretation Code 5.0-9.0 [facility] Comment on above: Performed By: #### 1 [id number] ####[address] [address] Protein (U) [Mass/Vol] Negative Normal Negative [facility] Comment on above: Performed By: #### 1 [id number] ####[address] [address] Specific gravity (U) [Rel density] 1.010 Invalid Interpretation Code 1.005-1.030 [facility] Comment on above: Performed By: #### 1 [id number] ####[facility] [address] [place] [address] Type of Urine collection method Clean Catch Normal [facility] Comment on above: Performed By: #### 1 [id number] ####[facility] [address] [place] [address] Urobilinogen Qn (U) 0.2 {Cuba'U}/dL Normal 0.0-1.0 [facility] Comment on above: Performed By: #### 1 [id number] ####[facility] [address] [place] [address] WBC Auto Ql (U) Negative Normal Negative [facility] Comment on above: Performed By: #### 1 [id number] ####[facility] [address] [place] [address] WBC LM.HPF (Urine sed) [#/Area] 0-5 Normal 0-5 [facility] Comment on above: Performed By: #### 1 [id number] ####[facility] [address] [place] [address] URINALYSISOrdered By: Kayy Alfaro on 07-10-2023 Bilirubin Ql (U) Negative (07/10/23 5:10 PM) Normal Negative [facility]A Auto SS Clarity (U) Clear (07/10/23 5:10 PM) Normal Clear [facility] UA Auto SS Color (U) Yellow (07/10/23 5:10 PM) Normal Yellow [facility] UA Auto SS Epithelial cells.squamous LM.HPF (Urine sed) [#/Area] 3-4 /HPF Normal 0-2/HPF [facility] UA Aut o SS Glucose Test strip (U) [Mass/Vol] Negative (07/10/23 5:10 PM) Normal Negative [facility] UA Auto SS Hemoglobin Ql (U) Negative (07/10/23 5:10 PM) Normal Negative [facility] UA Auto SS Ketones (U) [Mass/Vol] Negative (07/10/23 5:10 PM) Normal Negative [facility] UA Auto SS [place].plasma/[place]. RBC (Bld) [Mass ratio] 0-3 /HPF Normal 0-3/HPF [facility] UA A uto SS Nitrite Ql (U) Negative (07/10/23 5:10 PM) Normal Negative [facility] UA Auto SS pH (U) 6.5 *NA* (07/10/23 5:10 PM) Invalid Interpretation Code 5.0 - 9.0 [facility] Auto SS Protein (U) [Mass/Vol] Negative (07/10/23 5:10 PM) Normal Negative [facility] UA Auto SS Specific gravity (U) [Rel density] 1.010 *NA* (07/10/23 5:10 PM) Invalid Interpretation Code 1.005 - 1.030 [facility] UA Auto SS UA Spec Desc Clean Catch (07/10/23 5:10 PM) Normal [facility] UA Auto SS Urobilinogen Qn (U) 0.9168700 {[place]uba'U}/dL Normal 0.0 - 1.0 EU/dL [facility] UA Auto SS WBC Auto Ql (U) Negative (07/10/23 5:10 PM) Normal Negative [facility] UA Auto SS WBC LM.HPF (Urine sed) [#/Area] 0-5 /HPF Normal 0-5/HPF [facility] UA Auto SS eGFRon 07-10-2023 GFR/1.73 sq M.predicted among non-blacks MDRD (S/P/Bld) [Vol rate/Area] 91 mL/min/1.73 m2 Normal >=59 [facility] Comment on above: Order Comment: Order added by Discern Expert. Result Comment: Cnmt adelso kidney disease could be indicated at eGFR's of less than 60 mL/min/1.73m2. Kidney failure is indicated at less than 15 mL/min/1.73m2. Performed By: #### 1 [id number], 0115375, 3478119, 7774759, 83782816 #### [facility] [address] [place] [address] Physician Orderon 07-08-2023 Physician Order [id number] 0TIFF Normal [facility] Nonvisit Note - PTon 023 Nonvisit Note - PT 11-20-23 hf, pt cxl in remind system, no reason available. Normal [facility] Auto Diffon 06-24-2023 Basophils/100 WBC (Bld) 0.5 % Normal 0.0-2.0 [facility] Comment on above: Order Comment: Order Added by Discern Expert. Performed By: #### 1 7114035, 5694836, 6586006, 1560640 ####[facility] [address] [place] [address] Basophils/Leukocytes Auto (Bld) [Pure # fraction] 0.0 E9/L Normal 0.0-0.2 [facility] Comment on above: Order Comment: Order Added by Alethea Expert. Performed By: #### 1 2184373, 2405293, 3329490, 2153478 ####[facility] [address] [place] [address] Eosinophils/100 WBC (Bld) 2.0 % Normal 0.0-8.0 [facility] Comment on above: Order Comment: Order Added by Alethea Expert. Performed By: #### 1 1861895, 5858703, 3930916, 5035495 ####[facility] [address] [place] [address] Eosinophils/Leukocytes Auto (Bld) [Pure # fraction] 0.1 E9/L Normal 0.0-0.5 [facility] Comment on above: Order Comment: Order Added by Alethea Expert. Performed By: #### 1 7851282, 1999451, 8220371, 0561319 ####[facility] [address] [place] [address] Lymphocytes/100 WBC (Bld) 36.5 % Normal 14.0-50.0 [facility] Comment on above: Order Comment: Order Added by Alethea Expert. Performed By: #### 1 9629787, 4419638, 8936535, 6297973 ####[facility] [address] [place] [address] Lymphocytes/Leukocytes Auto (Bld) [Pure # fraction] 1.7 E9/L Normal 1.0-4.0 [facility] Comment on above: Order Comment: Order Added by Discern Expert. Performed By: #### 1 1688081, 4645171, 9527022, 3129455 ####[address] [address] Monocytes/100 WBC (Bld) 8.1 % Normal 4.0-14.0 [facility] Comment on above: Order Comment: Order Added by Discern Expert. Performed By: #### 1 1922899, 6190055, 6599837, 3052325 ####[address] [address] Monocytes/Leukocytes Auto (Bld) [Pure # fraction] 0.4 E9/L Normal 0.2-1.0 [facility] Comment on above: Order Comment: Order Added by Alethea Expert. Performed By: #### 1 3047631, 1703424, 3905035, 5932648 ####[address] [address] Neutrophils/100 WBC (Bld) 52.9 % Normal 36.0-75.0 [facility] Comment on above: Order Comment: Order Added by Alethea Expert. Performed By: #### 1 1758554, 5789011, 1093338, 3346245 ####[address] [address] Neutrophils/Leukocytes Auto (Bld) [Pure # fraction] 2.5 E9/L Normal 2.0-7.5 [facility] Comment on above: Order Comment: Order Added by Discern Expert. Performed By: #### 1 8327735, 0147336, 9698484, 6477134 ####[address] [address] CBC w/ Auto Diffon 3 Erythrocyte distribution width (RBC) [Ratio] 13.1 % Normal 10.9-14.2 [facility] Comment on above: Performed By: #### 1 2952726, 0025882, 0445259, 9548583 ####[address] [address] Hematocrit (Bld) [Volume fraction] 38.0 % Normal 34.0-46.0 [facility] Comment on above: Performed By: #### 1 1600170, 4866383, 5289577, 3460186 ####[facility] [address] [place] [address] Hemoglobin (Bld) [Mass/Vol] 12.7 g/dL Normal 12.0-16.0 [facility] Comment on above: Performed By: #### 1 2798739, 3465991, 3470434, 3932758 ####[facility] [address] [place] [address] MCH (RBC) [Entitic mass] 32.4 pg Normal 27.0-34.0 [facility] Comment on above: Performed By: #### 1 4032861, 8410077, 3410092, 2357616 ####[place] [address]457 MCHC (RBC) [Mass/Vol] 33.3 g/dL Normal 31.4-36.0 [facility] Comment on above: Performed By: #### 1 9774163, 6345549, 4599224, 7269914 ####[address] [address] MCV (RBC) [Entitic vol] 97.2 fL Normal 80.0-100.0 [facility] Comment on above: Performed By: #### 1 5035955, 2798000, 7756805, 2089828 ####[address] [address] Platelet mean volume (Bld) [Entitic vol] 7.1 fL Normal 6.4-10.8 [facility] Comment on above: Performed By: #### 1 2194310, 6632520, 8772271, 9837055 ####[facility] [address] [place] [address] Platelets (Bld) [#/Vol] 194.0 E9/L Normal 150.0-500.0 [facility] Comment on above: Performed By: #### 1 9287052, 3312949, 4354820, 5970902 ####[facility] [address] [place] [address] RBC (Bld) [#/Vol] 3.9 E12/L Low 4.3-5.9 [facility] Comment on above: Performed By: #### 1 4674375, 8720273, 5449205, 0467319 ####[facility] [address] [place] [address] WBC corrected for nucl RBC Auto (Bld) [#/Vol] 4.8 E9/L Normal 4.0-11.0 [facility] Comment on above: Performed By: #### 1 8390592, 3106448, 9272858, 4117264 ####[facility] [address] [place] [address] CHEMISTRYOrdered By: SYSTEM SYSTEM on 06-24-2023 Albumin [Mass/Vol] 3.3 g/dL Normal 3.3 - 5.0 gm/dL [facility] Remisol Albumin/Globulin [Mass ratio] 0.8 {ratio} Low 1.1 - 2.2 [facility] ALP [Catalytic activity/Vol] 69 [iU]/d Normal 21 - 98 Int._Unit/L [facility] ALT No additional P-5'-P [Catalytic activity/Vol] 22 [iU]/d Normal 6 - 46 Int._Unit/L [facility] Anion gap [Moles/Vol] 11 mmol/L Normal 6 - 16 mEq/L [facility] AST [Catalytic activity/Vol] 37 [iU]/d Normal 5 - 43 Int._Unit/L [facility] Bilirubin [Mass/Vol] 1.1 mg/dL Normal 0.0 - 1 .1 mg/dL [facility] Calcium [Mass/Vol] 8.9 mg/dL Normal 8.9 - 11. 1 mg/dL [facility] Chloride [Moles/Vol] 102 mmol/L Normal 101 - 1 11 mmol/L [facility] CO2 [Moles/Vol] 27 mmol/L Normal 21 - 31 mmol/L [facility] Creatinine [Mass/Vol] 0.8 mg/dL Normal 0.5 - 1.3 mg/dL [facility] Remisol GFR/1.73 sq M.predicted among non-blacks MDRD (S/P/Bld) [Vol rate/Area] 74 mL/min/1.73 m2 Normal >=59mL/min/ 1.73 m2 [facility] Chem S Comment on above: Interpretive Data: C hronic kidney disease could be indicated at eGFR's of less than 60 mL/min/1.73m2. Kidney failure is indicated at less than 15 mL/min/1.73m2. Globulin (S) [Mass/Vol] 4.4 g/dL High 1.4 - 4.0 gm/dL [facility] Remisol Glucose [Mass/Vol] 154 mg/dL Normal 55 - 199 mg/dL [facility] Remisol Comment on above: Interpretive Data: I f this glucose result represents a fasting glucose, interpretation should refer to the following reference range: 55-99 mg/dL Potassium [Moles/Vol] 3.9 mmol/L Normal 3.5 - 5.3 mmol/L [facility] Remisol Protein [Mass/Vol] 7.7 g/dL Normal 6.0 - 7.8 gm/dL [facility] Remisol Sodium [Moles/Vol] 136 mmol/L Normal 135 - 145 mmol/L [facility] Remisol Urea nitrogen [Mass/Vol] 15 mg/dL Normal 5 - 21 mg/dL [facility] Remisol Urea nitrogen/Creatinine [Mass ratio] 19 mg/mg Normal 10 - 20 [facility] Remisol CMPon 06-24-2023 Albumin [Mass/Vol] 3.3 g/dL Normal 3.3-5.0 [facility] Comment on above: Performed By: #### 1 7961038, 0690622, 1016080, 4322093, 11342908 #### [facility] [address] [place] [address] Albumin/Globulin (S) [Mass conc ratio] 0.8 Low 1.1-2.2 [facility] Comment on above: Performed By: #### 1 6776343, 3124352, 3857218, 9692862, 03587288 #### [facility] [address] [place] [address] ALP [Catalytic activity/Vol] 69 Int._Unit/L Normal 21-98 [facility] Comment on above: Performed By: #### 1 1833162, 2373688, 3884876, 1622097, 21428599 #### [facility] [address] [place] [address] ALT No additional P-5'-P [Catalytic activity/Vol] 22 Int._Unit/L Normal 6-46 [facility] Comment on above: Performed By: #### 1 4916680, 1003443, 4401555, 9513472, 79120272 #### [facility] [address] [place] [address] Anion gap [Moles/Vol] 11 mmol/L Normal 6-16 [facility] Comment on above: Performed By: #### 1 9861003, 3031411, 6635052, 1972764, 46682601 #### [facility] [address] [place] [address] AST [Catalytic activity/Vol] 37 Int._Unit/L Normal 5-43 [facility] Comment on above: Performed By: #### 1 3729788, 4718727, 1999714, 1909377, 27726849 #### [facility] [address] [place] [address] Bilirubin [Mass/Vol] 1.1 mg/dL Normal 0.0-1.1 [facility] Comment on above: Performed By: #### 1 7564053, 9567765, 1279528, 0384733, 13755898 #### [facility] [address] [place] [address] Calcium [Mass/Vol] 8.9 mg/dL Normal 8.9-11.1 [facility] Comment on above: Performed By: #### 1 7955113, 2246729, 4125731, 6955645, 19794327 #### [facility] [address] [place] [address] Chloride [Moles/Vol] 102 mmol/L Normal 101-111 [facility] Comment on above: Performed By: #### 1 2522022, 7754147, 3051046, 4893624, 05952550 #### [facility] [address] [place] [address] CO2 [Moles/Vol] 27 mmol/L Normal 21-31 [facility] Comment on above: Performed By: #### 1 8104205, 2673855, 7143944, 8437606, 90619520 #### [facility] [address] [place] [address] Creatinine [Mass/Vol] 0.8 mg/dL Normal 0.5-1.3 [facility] Comment on above: Performed By: #### 1 5738582, 0681727, 7008307, 2034727, 87622882 #### [facility] [address] [place] [address] Globulin (S) [Mass/Vol] 4.4 g/dL High 1.4-4.0 [facility] Comment on above: Performed By: #### 1 9731690, 3012999, 7115785, 7318798, 82231066 #### [facility] [address] [place] [address] Glucose [Mass/Vol] 154 mg/dL Normal 55-199 [facility] Comment on above: Result Comment: If t his glucose result represents a fasting glucose, interpretation should refer to the following reference range: 55-99 mg/dL Performed By: #### 1 9242757, 1653180, 4886499, 1821083, 59616910 #### [facility] [address] [place] [address] Potassium [Moles/Vol] 3.9 mmol/L Normal 3.5-5.3 [facility] Comment on above: Performed By: #### 1 8612757, 9775081, 7502130, 2778867, 86081408 #### [facility] [address] [place] [address] Protein [Mass/Vol] 7.7 g/dL Normal 6.0-7.8 [facility] Comment on above: Performed By: #### 1 3449560, 2651902, 9839061, 3510304, 75955734 #### [facility] [address] [place] [address] Sodium [Moles/Vol] 136 mmol/L Normal 135-145 [facility] Comment on above: Performed By: #### 1 3279679, 4256758, 1640336, 9262111, 89431700 #### [facility] [address] [place] [address] Urea nitrogen [Mass/Vol] 15 mg/dL Normal 5-21 [facility] Comment on above: Performed By: #### 1 5282539, 5253122, 6802866, 4781309, 85405536 #### [facility] [address] [place] [address] Urea nitrogen/Creatinine [Mass ratio] 19 No Units Normal 10-20 [facility] Comment on above: Performed By: #### 1 2506557, 5624647, 5580242, 5693751, 95761749 #### [facility] [address] [place] [address] Consent for Treatmenton 06-08 Consent for Treatment [id number]#1.0 0TIFF Normal [facility] HEMATOLOGYOrdered By: SYSTEM SYSTEM on 06-24-2023 Basophils/100 WBC (Bld) 0.5 % Normal 0.0 - 2.0 % [facility] HemeAutoSS Basophils/Leukocytes Auto (Bld) [Pure # fraction] 0.0 E9/L Normal 0.0 - 0.2 E9/L [facility] HemeAutoSS Eosinophils/100 WBC (Bld) 2.0 % Normal 0.0 - 8.0 % [facility] HemeAutoSS Eosinophils/Leukocytes Auto (Bld) [Pure # fraction] 0.1 E9/L Normal 0.0 - 0.5 E9/L [facility] HemeAutoSS Lymphocytes/100 WBC (Bld) 36.5 % Normal 14.0 - 50.0 % [facility] HemeAutoSS Lymphocytes/Leukocytes Auto (Bld) [Pure # fraction] 1.7 E9/L Normal 1.0 - 4.0 E9/L [facility] HemeAutoSS Monocytes/100 WBC (Bld) 8.1 % Normal 4.0 - 14.0 % [facility] HemeAutoSS Monocytes/Leukocytes Auto (Bld) [Pure # fraction] 0.4 E9/L Normal 0.2 - 1.0 E9/L [facility] HemeAutoSS Neutrophils/100 WBC (Bld) 52.9 % Normal 36.0 - 75.0 % [facility] HemeAutoSS Neutrophils/Leukocytes Auto (Bld) [Pure # fraction] 2.5 E9/L Normal 2.0 - 7.5 E9/L [facility] HemeAutoSS HEMATOLOGYOrdered By: Edita Norwood on 06-24-2023 Erythrocyte distribution width (RBC) [Ratio] 13.1 % Normal 10.9 - 14.2 % [facility] HemeAutoSS Hematocrit (Bld) [Volume fraction] 38.0 % Normal 34.0 - 46.0 % [facility] HemeAutoSS Hemoglobin (Bld) [Mass/Vol] 12.7 g/dL Normal 12.0 - 16.0 gm/dL [facility] HemeAutoSS MCH (RBC) [Entitic mass] 32.4 pg Normal 27.0 - 34.0 pg [facility] HemeAutoSS MCHC (RBC) [Mass/Vol] 33.3 g/dL Normal 31.4 - 36.0 gm/dL [facility] HemeAutoSS MCV (RBC) [Entitic vol] 97.2 fL Normal 80.0 - 100.0 fL [facility] HemeAutoSS Platelet mean volume (Bld) [Entitic vol] 7.1 fL Normal 6.4 - 10.8 fL [facility] HemeAutoSS Platelets (Bld) [#/Vol] 194.0 E9/L Normal 150. 0 - 500.0 E9/L [facility] HemeAutoSS RBC (Bld) [#/Vol] 3.9 E12/L Low 4.3 - 5.9 E12/L [facility] HemeAutoSS WBC corrected for nucl RBC Auto (Bld) [#/Vol] 4.8 E9/L Normal 4.0 - 11.0 E9/L [facility] HemeAutoSS Physician Orderon 06-24-2023 Physician Order [id number]#1.0 0TIFF Normal [facility] eGFRon 06-24-2023 GFR/1.73 sq M.predicted among non-blacks MDRD (S/P/Bld) [Vol rate/Area] 74 mL/min/1.73 m2 Normal >=59 [facility] Comment on above: Order Comment: Order added by Discern Expert. Result Comment: Cnmt adelso kidney disease could be indicated at eGFR's of less than 60 mL/min/1.73m2. Kidney failure is indicated at less than 15 mL/min/1.73m2. Performed By: #### 1 4506254, 2013154, 8828959, 6181286, 09559072 #### [facility] [address] [place] [address] Urineon 06-23-2023 Bacteria identified Cx Nom (U) Microbiology PROCEDURE: Urine Culture [R1] SOURCE: U CleanCatch BODY SITE: COLLECTED DATE/TIME: 06/21/2023 07:00 EST RECEIVED DATE/TIME: 06/21/2023 10:22 EST START DATE/TIME: 06/21/2023 10:23 EST FREE TEXT SOURCE: JUNIOR BRYANT, EDMOND PACHECO DO, EDMOND FINAL REPORTS Final Report [] Verified Date/Time: 06/23/2023 08:43 EST >100,000 cfu/ml Klebsiella pneumoniae SUSCEPTIBILITY RESULTS __ LEGEND: S=Susceptible, N/R=Not Reported, Blank=Data not available, or drug not advisable or tested, I=Intermediate, ESBL=Extended spectrum beta-lactamase, R=Resistant, TFG=Thymidine-dependen t strain, JOSE M=Beta-lactamase positive, YASMINE=mcg/m;(mg/L), S*=Predicted susceptible interp, R*=Predicted resistant interp Klepne Antibiotic YASMINE Dilutn YASMINE Interp Amikacin <=16 S Ampicillin >16 R Ampicillin/ <=8/4 S Sulbactam Aztreonam <=4 S Cefazolin <=2 S Cefepime <=2 S Cefoxitin <=8 S Ceftazidime <=1 S Ceftazidime/ <=8 S Avibactam Ceftriaxone <=1 S Ciprofloxacin <=1 S Ertapenem <=0.5 S Gentamicin <=4 S Levofloxacin <=2 S Meropenem <=1 S Nitrofurantoin <=32 S Piperacillin/ <=16 S Tazobactam Tetracycline <=4 S Tigecycline <=2 S Tobramycin <=4 S Trimethoprim/ <=2/38 S Sulfa Performing Locations R1: This test was performed at: [facility], [address] [place] [address], [facility]- , , [facility] Comment on above: Performed By: #### 1 0531308, 6638226, 1376634, 5347100, 02019441 #### [facility] [address] [place] [address] Physician Orderon 06-21-2023 Physician Order [id number]#1.0 0TIFF [facility] URINALYSISOrdered By: Lizet Saab on 06-21-2023 Bacteria LM Ql (Urine sed) 2+ /HPF Invalid Interpretation Code Trace/HPF [facility] UA Auto SS Bilirubin Ql (U) 1+ *ABN* (06/21/23 7:00 AM) Invalid Interpretation Code Negative [facility] UA Auto SS Calcium oxalate crystals LM Ql (Urine sed) Present (06/21/23 7:00 AM) Normal [facility] UA Auto SS Clarity (U) Slightly Cloudy *ABN* (06/21/23 7:00 AM) Invalid Interpretation Code Clear [facility] UA Auto SS Color (U) Yellow (06/21/23 7:00 AM) Normal Yellow [facility] UA Auto SS Epithelial cells.squamous LM.HPF (Urine sed) [#/Area] 0-2 /HPF Normal 0-2/HPF [facility] UA Aut o SS Glucose Test strip (U) [Mass/Vol] Negative (06/21/23 7:00 AM) Normal Negative [facility] UA Auto SS Hemoglobin Ql (U) Negative (06/21/23 7:00 AM) Normal Negative [facility] UA Auto SS Ketones (U) [Mass/Vol] Trace *ABN* (06/21/23 7:00 AM) Invalid Interpretation Code Negative [facility] UA Auto SS [place].plasma/[place]. RBC (Bld) [Mass ratio] 0-3 /HPF Normal 0-3/HPF [facility] UA A uto SS Mucus Ql (Urine sed) Trace (06/21/23 7:00 AM) Normal [facility] UA Auto SS Nitrite Ql (U) Positive *ABN* (06/21/23 7:00 AM) Invalid Interpretation Code Negative [facility] UA Auto SS pH (U) 5.5 *NA* (06/21/23 7:00 AM) Invalid Interpretation Code 5.0 - 9.0 [facility] UA Auto SS Protein (U) [Mass/Vol] Negative (06/21/23 7:00 AM) Normal Negative [facility] UA Auto SS Specific gravity (U) [Rel density] 1.025 *NA* (06/21/23 7:00 AM) Invalid Interpretation Code 1.005 - 1.030 [facility] UA Auto SS UA Spec Desc Clean Catch (06/21/23 7:00 AM) Normal [facility] UA Auto SS Urobilinogen Qn (U) 0.4055612 {[place]'U}/dL Normal 0.0 - 1.0 EU/dL [facility] UA Auto SS WBC Auto Ql (U) 2+ *ABN* (06/21/23 7:00 AM) Invalid Interpretation Code Negative [facility] UA Auto SS Urinalysison 06-21-2023 Bacteria LM Ql (Urine sed) 2+ /HPF Abnormal Trace [facility] Comment on above: Performed By: #### 1 2915751, 4752780, 1505103, 6765250, 94365427 #### [facility] [address] [place] [address] Bilirubin Ql (U) 1+ Abnormal Negative [facility] Comment on above: Performed By: #### 1 8505996, 1845003, 8634675, 7586131, 76814723 #### [facility] [address] [place] [address] Calcium oxalate crystals LM Ql (Urine sed) Present Normal [facility] Comment on above: Performed By: #### 1 5594333, 3179908, 6909259, 4361041, 38421114 #### [facility] [address] [place] [address] Clarity (U) SL CLOUDY Abnormal Clear [facility] Comment on above: Performed By: #### 1 7990974, 5699442, 6906035, 6886913, 05299313 #### [facility] [address] [place] [address] Color (U) YELLOW Normal Yellow [facility] Comment on above: Performed By: #### 1 0993540, 0069012, 4812794, 8103857, 60867201 #### [facility] [address] [place] [address] Epithelial cells.squamous LM.HPF (Urine sed) [#/Area] 0-2 Normal 0-2 [facility] Comment on above: Performed By: #### 1 4860755, 6504297, 0395155, 0750311, 29691138 #### [facility] [address] [place] [address] Glucose Test strip (U) [Mass/Vol] Negative Normal Negative [facility] Comment on above: Performed By: #### 1 3317928, 5038310, 3053194, 7518936, 27844621 #### [facility] [address] [place] [address] Hemoglobin Ql (U) Negative Normal Negative [facility] Comment on above: Performed By: #### 1 0689949, 1108138, 0179423, 8503532, 07914924 #### [facility] [address] [place] [address] Ketones (U) [Mass/Vol] TRACE Abnormal Negative [facility] Comment on above: Performed By: #### 1 2011401, 2578643, 8581915, 6135980, 68842065 #### [facility] [address] [place] [address] [place].plasma/[place]. RBC (Bld) [Mass ratio] 0-3 Normal 0-3 [facility] Comment on above: Performed By: #### 1 2870914, 6835088, 9760397, 3980859, 51753396 #### [facility] [address] [place] [address] Mucus Ql (Urine sed) TRACE Normal [facility] Comment on above: Performed By: #### 1 6119130, 1043421, 2332392, 9827938, 87426311 #### [facility] [address] [place] [address] Nitrite Ql (U) Positive Abnormal Negative [facility] Comment on above: Performed By: #### 1 4207294, 7639593, 7791151, 0546755, 95413557 #### [facility] [address] [place] [address] pH (U) 5.5 [pH] Invalid Interpretation Code 5.0-9.0 [facility] Comment on above: Performed By: #### 1 9423283, 8525184, 6953067, 3395450, 56777072 #### [facility] [address] [place] [address] Protein (U) [Mass/Vol] Negative Normal Negative [facility] Comment on above: Performed By: #### 1 9277862, 6589307, 5539904, 1190550, 44803342 #### [facility] [address] [place] [address] Specific gravity (U) [Rel density] 1.025 Invalid Interpretation Code 1.005-1.030 [facility] Comment on above: Performed By: #### 1 [id number], [id number], [id number], [id number], [id number] #### [facility] [address] [place] [address] Type of Urine collection method Clean Catch Normal [facility] Comment on above: Performed By: #### 1 [id number], [id number], [id number], [id number], [id number] #### [facility] [address] [id number] Urobilinogen Qn (U) 0.2 {[place]'U}/dL Normal 0.0-1.0 [facility] Comment on above: Performed By: #### 1 [id number], [id number], [id number], [id number], [id number] #### [facility] [address] [place], [place] [id number] WBC Auto Ql (U) 2+ Abnormal Negative [facility] Comment on above: Performed By: #### 1 [id number], [id number], [id number], [id number], [id number] #### [facility] [address] [place], [place] [id number] UrinalysisOrdered By: Lizet Saab on 06-21-2023 WBC LM.HPF (Urine sed) [#/Area] /[HPF] Abnormal 0-5 [facility] UA Auto SS Comment on above: Performed By: #### 1 [id number], 9948594, 8152196, 9641724, [id number] #### [facility] [address] [id number] Nonvisit Note - PTon 023 Nonvisit Note - PT Patient showed up at 11:00 (30 minutes late). Her ride misunderstood the time and thought the appointment was at 11:00 instead of 10:30. Normal [facility] Nonvisit Note - PTon 023 Nonvisit Note - PT Transit called and said they would not be able to pick her up. Her daughter will out of town so she is unable to get her either. [facility] PT - Assessmentson 3 PT - Assessments [id number]#1. 00TIFF [facility] PT - Assessments [id number]#1. 00TIFF [facility] C Urineon 05-13-2023 Bacteria identified Cx Nom (U) Microbiology PROCEDURE: Urine Culture [R1] SOURCE: U CleanCatch BODY SITE: COLLECTED DATE/TIME: 05/11/2023 10:10 EDT RECEIVED DATE/TIME: 05/11/2023 13:45 EDT START DATE/TIME: 05/11/2023 13:45 EDT FREE TEXT SOURCE: EDMOND PACHECO DO, DO, EDMOND FINAL REPORTS Final Report [] Verified Date/Time: 05/13/2023 09:36 EDT >100,000 cfu/ml Klebsiella pneumoniae SUSCEPTIBILITY RESULTS __ LEGEND: S=Susceptible, N/R=Not Reported, Blank=Data not available, or drug not advisable or tested, I=Intermediate, ESBL=Extended spectrum beta-lactamase, R=Resistant, TFG=Thymidine-dependen t strain, JOSE M=Beta-lactamase positive, YASMINE=mcg/m;(mg/L), S*=Predicted susceptible interp, R*=Predicted resistant interp Klepne Antibiotic YASMINE Dilutn YASMINE Interp Amikacin <=16 S Ampicillin >16 R Ampicillin/ <=8/4 S Sulbactam Aztreonam <=4 S Cefazolin <=2 S Cefepime <=2 S Cefoxitin <=8 S Ceftazidime <=1 S Ceftazidime/ <=8 S Avibactam Ceftriaxone <=1 S Ciprofloxacin <=1 S Ertapenem <=0.5 S Gentamicin <=4 S Levofloxacin <=2 S Meropenem <=1 S Nitrofurantoin <=32 S Piperacillin/ <=16 S Tazobactam Tetracycline <=4 S Tigecycline <=2 S Tobramycin <=4 S Trimethoprim/ <=2/38 S Sulfa Performing Locations R1: This test was performed at: [facility], [address] [place] [address], [facility]- , , [facility] Comment on above: Performed By: #### 1 [id number], [id number], 0098623, 6435522, [id number] #### [facility] [address] [place] [address] Physician Orderon 05-11-2023 Physician Order [id number]#1.0 0CD:127 Normal [facility] URINALYSISOrdered By: Cuate Rea on 05-11-2023 Bacteria LM Ql (Urine sed) 2+ /HPF Invalid Interpretation Code Trace/HPF [facility] UA Auto SS Bilirubin Ql (U) Negative (05/11/23 10:10 AM) Normal Negative [facility] UA Auto SS Clarity (U) Slightly Cloudy *ABN* (05/11/23 10:10 AM) Invalid Interpretation Code Clear [facility] UA Auto SS Color (U) Yellow (05/11/23 10:10 AM) Normal Yellow [facility] UA Auto SS Epithelial cells.squamous LM.HPF (Urine sed) [#/Area] 0-2 /HPF Normal 0-2/HPF [facility] UA Aut o SS Glucose Test strip (U) [Mass/Vol] Negative (05/11/23 10:10 AM) Normal Negative [facility] UA Auto SS Hemoglobin Ql (U) Negative (05/11/23 10:10 AM) Normal Negative [facility] UA Auto SS Ketones (U) [Mass/Vol] Negative (05/11/23 10:10 AM) Normal Negative [facility] UA Auto SS [place].plasma/[place]. RBC (Bld) [Mass ratio] 0-3 /HPF Normal 0-3/HPF [facility] UA A uto SS Nitrite Ql (U) Negative (05/11/23 10:10 AM) Normal Negative [facility] UA Auto SS pH (U) 8.0 *NA* (05/11/23 10:10 AM) Invalid Interpretation Code 5.0 - 9.0 [facility] UA Auto SS Protein (U) [Mass/Vol] Negative (05/11/23 10:10 AM) Normal Negative [facility] UA Auto SS Specific gravity (U) [Rel density] 1.015 *NA* (05/11/23 10:10 AM) Invalid Interpretation Code 1.005 - 1.030 [facility] UA Auto SS UA Spec Desc Clean Catch (05/11/23 10:10 AM) Normal [facility] UA Auto SS Urobilinogen Qn (U) 0.5896901 {[place]'U}/dL Normal 0.0 - 1.0 EU/dL [facility] UA Auto SS WBC Auto Ql (U) Negative (05/11/23 10:10 AM) Normal Negative [facility] UA Auto SS WBC LM.HPF (Urine sed) [#/Area] 0-5 /HPF Normal 0-5/HPF [facility] UA Auto SS Urinalysison 05-11-2023 Bacteria LM Ql (Urine sed) 2+ /HPF Abnormal Trace [facility] Comment on above: Performed By: #### 1 [id number], 1575610, 4366123, 8190856, 43792734 #### [facility] [address] [place] [address] Bilirubin Ql (U) Negative Normal Negative [facility] Comment on above: Performed By: #### 1 9512793, 9605657, 2447954, 6163673, 90923619 #### [facility] [address] [place] [address] Clarity (U) SL CLOUDY Abnormal Clear [facility] Comment on above: Performed By: #### 1 1974252, 0860852, 2221062, 2567938, 34868730 #### [facility] [address] [place] [address] Color (U) YELLOW Normal Yellow [facility] Comment on above: Performed By: #### 1 4458002, 5843252, 5945973, 4131654, 42049474 #### [facility] [address] [place] [address] Epithelial cells.squamous LM.HPF (Urine sed) [#/Area] 0-2 Normal 0-2 [facility] Comment on above: Performed By: #### 1 6656314, 8637951, 2071760, 7097243, 28786515 #### [facility] [address] [place] [address] Glucose Test strip (U) [Mass/Vol] Negative Normal Negative [facility] Comment on above: Performed By: #### 1 8748609, 6774317, 6563250, 6685795, 15722558 #### [facility] [address] [place] [address] Hemoglobin Ql (U) Negative Normal Negative [facility] Comment on above: Performed By: #### 1 0073170, 3773316, 4927594, 6300095, 25716997 #### [facility] [address] [place] [address] Ketones (U) [Mass/Vol] Negative Normal Negative [facility] Comment on above: Performed By: #### 1 3448952, 2202082, 1733717, 4722656, 72143959 #### [facility] [address] [place] [address] [place].plasma/[place]. RBC (Bld) [Mass ratio] 0-3 Normal 0-3 [facility] Comment on above: Performed By: #### 1 1904119, 2185664, 5855690, 7046048, 47951664 #### [facility] [address] [place] [address] Nitrite Ql (U) Negative Normal Negative [facility] Comment on above: Performed By: #### 1 6927693, 9697510, 3319982, 5341724, 46327292 #### [facility] [address] [place] [address] pH (U) 8.0 [pH] Invalid Interpretation Code 5.0-9.0 [facility] Comment on above: Performed By: #### 1 3617867, 4198098, 8782729, 3930008, 23036779 #### [facility] [address] [place] [address] Protein (U) [Mass/Vol] Negative Normal Negative [facility] Comment on above: Performed By: #### 1 8002376, 0622073, 1621872, 2727390, 66487097 #### [facility] [address] [place] [address] Specific gravity (U) [Rel density] 1.015 Invalid Interpretation Code 1.005-1.030 [facility] Comment on above: Performed By: #### 1 4009806, 5722635, 8147593, 7417732, 38543072 #### [facility] [address] [place] [address] Type of Urine collection method Clean Catch Normal [facility] Comment on above: Performed By: #### 1 0132239, 2610018, 6242393, 4968191, 09031150 #### [facility] [address] [place] [address] Urobilinogen Qn (U) 0.2 {[place]'U}/dL Normal 0.0-1.0 [facility] Comment on above: Performed By: #### 1 8028193, 2048842, 4272763, 8837893, 11202600 #### [facility] [address] [place] [address] WBC Auto Ql (U) Negative Normal Negative [facility] Comment on above: Performed By: #### 1 1406000, 6325504, 6897417, 2741054, 19067947 #### [facility] [address] [place] [address] WBC LM.HPF (Urine sed) [#/Area] 0-5 Normal 0-5 [facility] Comment on above: Performed By: #### 1 4049760, 0287374, 3907942, 5935256, 27690766 #### [facility] [address] [place] [address] Nonvisit Note - PTon 023 Nonvisit Note - PT Daughter called and said that Caridad was dizzy. Normal [facility] Nonvisit Note - PTon 023 Nonvisit Note - PT No treatment provided this date Pt arrived stating her pain is too high for the numeric scale, did not give a number. Pt said her arm is super creeky and achy. She notes that she feels very dizzy and uneasy on her feet, is not sure what it's from but she felt funny when she woke up this AM. Stopped using the NuStep after 4 mins d/t dizziness sx's increasing. Took pt's HR via pulse ox and manual blood pressure. Right after stopping on NuStep, HR: 45 bpm, & BP: 140/100. After sitting 2-3 mins HR: 60 bpm, & BP: 145/105. SpO2 was WNL throughout each attempt. Called pt's daughter and informed her of this information. She claims it's from her being on beta-blockers. She was unaware of any abnormal news or sx's from her care-animal caregiver that's there to help her at the house every morning. Her daughter agreed to come in to see her as she's a Nurse Practitioner. While waiting for her daughter to arrive pt kept noting she has never felt this dizzy before. She would c/o dizziness with side/side gazing and any/all transfers. Pt had to use the restroom and once back and in sitting for 2-3 mins took HR & BP values again. HR: 48 bpm, & BP: 138/98. Normal [facility] PT - Assessmentson PT - Assessments [id number]#1. 00CD:127 Normal [facility] PT - Assessments [id number]#1. 00CD:127 Normal [facility] PT - Home Exercise Programon 04-25-2023 PT - Home Exercise Program [id number] 0CD:127 Normal [facility] Alanine aminotransferase [En zymatic activity/volume] in Serum or PlasmaOrdered By: Carline Jackson on 04-05-2023 ALT [Catalytic activity/Vol] 23 U/L 7-52 [facility] Albumin [Mass/volume] in Ser um or Plasma by Bromocresol green (BCG) dye binding methoOrdered By: Carline Jackson on 04-05-2023 Albumin BCG dye [Mass/Vol] 3.5 g/dL 3.5-5.7 [facility] Alkaline phosphatase [Enzyma tic activity/volume] in Serum or PlasmaOrdered By: Carline Jackson on 04-05-2023 ALP [Catalytic activity/Vol] 69 U/L 34-104 [facility] Aspartate aminotransferase [ Enzymatic activity/volume] in Serum or PlasmaOrdered By: Carline Jackson on 04-05-2023 AST [Catalytic activity/Vol] 45 U/L 13-39 [facility] Basophils Auto (Bld) [#/Vol] Ordered By: Carline Jackson on 04-05-2023 Basophils (Bld) [#/Vol] 0.0 10*3/uL 0.0-0.2 [facility] Basophils/100 WBC Auto (Bld) Ordered By: Carline Jackson on 04-05-2023 Basophils/100 WBC (Bld) 0.7 % . [facility] Bilirubin.total [Mass/volume ] in Serum or PlasmaOrdered By: Carline Jackson on 04-05-2023 Bilirubin [Mass/Vol] 1.0 mg/dL 0.3-1.0 [facility] Calcium [Mass/volume] in Ser um or PlasmaOrdered By: Carline Jackson on 04-05-2023 Calcium [Mass/Vol] 8.6 mg/dL 8.6-10.3 [facility] Carbon dioxide, total [Moles /volume] in Serum or PlasmaOrdered By: Carline Jackson on 04-05-2023 CO2 [Moles/Vol] 25.2 mmol/L 21.0-31.0 [facility] Chloride [Moles/volume] in S marianna or PlasmaOrdered By: Carline Jackson on 04-05-2023 Chloride [Moles/Vol] 99 mmol/L 98-107 [facility] Creatinine [Mass/volume] in Serum or PlasmaOrdered By: Carline Jackson on 04-05-2023 Creatinine [Mass/Vol] 0.95 mg/dL 0.60-1.20 [facility] Eosinophils Auto (Bld) [#/Vo l]Ordered By: Carline Jackson on 04-05-2023 Eosinophils (Bld) [#/Vol] 0.1 10*3/uL 0.0-0.45 [facility] Eosinophils/100 WBC Auto (Bl d)Ordered By: Carline Jackson on 04-05-2023 Eosinophils/100 WBC (Bld) 2.1 % . [facility] Erythrocyte distribution wid th Auto (RBC) [Ratio]Ordered By: Carline Jackson on 04-05-2023 Erythrocyte distribution width (RBC) [Ratio] 13.7 % 11.9-15.3 [facility] Erythrocyte sedimentation ra te by Photometric methodOrdered By: Carline Jackson on 04-05-2023 ESR Photometric method (Bld) [Velocity] 47 mm/hr [facility] Globulin Calc (S) [Mass/Vol] Ordered By: Carline Jackson on 04-05-2023 Globulin (S) [Mass/Vol] 4.9 g/dL [facility] Glucose [Mass/volume] in Ser um or PlasmaOrdered By: Carline Jackson on 04-05-2023 Glucose [Mass/Vol] 100 mg/dL 70-100 [facility] Comment on above: ADA recommended refe rence rangeRandom Glucose Reference Range is dependent on time and content of last meal. Glucose of more than 200 mg/dL in a nonstressed, ambulatory subject supports the diagnosis of Diabetes Mellitus. Hematocrit Auto (Bld) [Volum e fraction]Ordered By: Carline Jackson on 04-05-2023 Hematocrit (Bld) [Volume fraction] 38.5 % 34.0-46.4 [facility] Hemoglobin [Mass/volume] in BloodOrdered By: Carline Jackson on 04-05-2023 Hemoglobin (Bld) [Mass/Vol] 13.0 g/dL 11.8-15.4 [facility] Leukocytes [#/volume] correc kala for nucleated erythrocytes in Blood by Automated counOrdered By: Carline Jackson on 04-05-2023 WBC corrected for nucl RBC Auto (Bld) [#/Vol] 5.2 10*3/uL 3.8-11.6 [facility] Lymphocytes Auto (Bld) [#/Vo l]Ordered By: Carline Jackson on 04-05-2023 Lymphocytes (Bld) [#/Vol] 1.9 10*3/uL 1.00-4.8 [facility] Lymphocytes/100 WBC Auto (Bl d)Ordered By: Carline Jackson on 04-05-2023 Lymphocytes/100 WBC (Bld) 36.4 % . [facility] MCH Auto (RBC) [Entitic mass ]Ordered By: Carline Jackson on 04-05-2023 MCH (RBC) [Entitic mass] 32.3 pg 24.7-34.3 [facility] MCHC Auto (RBC) [Mass/Vol]Or dered By: Carline Jackson on 04-05-2023 MCHC (RBC) [Mass/Vol] 33.7 g/dL 32.0-35.0 [facility] MCV Auto (RBC) [Entitic vol] Ordered By: Carline Jackson on 04-05-2023 MCV (RBC) [Entitic vol] 95.9 fL 80-100 [facility] Monocytes Auto (Bld) [#/Vol] Ordered By: Carline Jackson on 04-05-2023 Monocytes (Bld) [#/Vol] 0.4 10*3/uL 0.0-0.8 [facility] Monocytes/100 WBC Auto (Bld) Ordered By: Carline Jackson on 04-05-2023 Monocytes/100 WBC (Bld) 6.8 % . [facility] Neutrophils Auto (Bld) [#/Vo l]Ordered By: Carline Jackson on 04-05-2023 Neutrophils (Bld) [#/Vol] 2.8 10*3/uL 1.8-7.7 [facility] Neutrophils/100 WBC Auto (Bl d)Ordered By: Carline Jackson on 04-05-2023 Neutrophils/100 WBC (Bld) 54.0 % . [facility] No Panel InformationOrdered By: Carline Jackson on 04-05-2023 Estimated GFR (CKD-EPI) > 60.0 mL/Min [facility] Creatinine Clearance (Chem N/A [facility] Nucleated erythrocytes [Pres ence] in Blood by Automated countOrdered By: Carline Jackson on 04-05-2023 Nucleated RBC Auto Ql (Bld) 0.2 /100{WBC} 0-0.5 [facility] Platelet mean volume Auto (B ld) [Entitic vol]Ordered By: Carline Jackson on 04-05-2023 Platelet mean volume (Bld) [Entitic vol] 8.6 fL 6.3-10.7 [facility] Platelets Auto (Bld) [#/Vol] Ordered By: Carline Jackson on 04-05-2023 Platelets (Bld) [#/Vol] 186 10*3/uL 150-450 [facility] Potassium [Moles/volume] in Serum or PlasmaOrdered By: Carline Jackson on 04-05-2023 Potassium [Moles/Vol] See comment 3.5-5.1 [facility] Comment on above: Specimen hemolyzed, redraw requested Protein [Mass/volume] in Ser um or PlasmaOrdered By: Carline Jackson on 04-05-2023 Protein [Mass/Vol] 8.4 g/dL 6.4-8.9 [facility] RBC Auto (Bld) [#/Vol]Ordere d By: Carline Jackson on 04-05-2023 RBC (Bld) [#/Vol] 4.01 10*6/uL 3.60-5.00 [facility] Serum or plasma albumin/glob ulin mass ratioOrdered By: Carline Jackson on 04-05-2023 Albumin/Globulin [Mass ratio] 0.7 {ratio} [facility] Serum or plasma anion gap de terminationOrdered By: Carline Jackson on 04-05-2023 Anion gap [Moles/Vol] TNP [facility] Comment on above: Test not performed Sodium [Moles/volume] in Ser um or PlasmaOrdered By: Carline Jackson on 04-05-2023 Sodium [Moles/Vol] 130 mmol/L 136-145 [facility] Urea nitrogen [Mass/volume] in Serum or PlasmaOrdered By: Carline Jackson on 04-05-2023 Urea nitrogen [Mass/Vol] 20 mg/dL 7-25 [facility] WBC Auto (Bld) [#/Vol]Ordere d By: Carline Jackson on 04-05-2023 WBC (Bld) [#/Vol] 5.2 10*3/uL 3.8-11.6 [facility] C Urineon 04-01-2023 Bacteria identified Cx Nom (U) Microbiology PROCEDURE: Urine Culture [R1] SOURCE: U CleanCatch BODY SITE: COLLECTED DATE/TIME: 03/30/2023 14:26 EDT RECEIVED DATE/TIME: 03/30/2023 15:20 EDT START DATE/TIME: 03/30/2023 15:20 EDT FREE TEXT SOURCE: JUNIOR BRYANT, EDMOND PACHECO DO, EDMOND FINAL REPORTS Final Report [] Verified Date/Time: 04/01/2023 10:32 EDT >100,000 cfu/ml Escherichia coli SUSCEPTIBILITY RESULTS __ LEGEND: S=Susceptible, N/R=Not Reported, Blank=Data not available, or drug not advisable or tested, I=Intermediate, ESBL=Extended spectrum beta-lactamase, R=Resistant, TFG=Thymidine-dependen t strain, JOSE M=Beta-lactamase positive, YASMINE=mcg/m;(mg/L), S*=Predicted susceptible interp, R*=Predicted resistant interp EC Antibiotic YASMINE Dilutn YASMINE Interp Amikacin <=16 S Ampicillin <=8 S Ampicillin/ <=8/4 S Sulbactam Aztreonam <=4 S Cefazolin <=2 S Cefepime <=2 S Cefoxitin <=8 S Ceftazidime <=1 S Ceftazidime/ <=8 S Avibactam Ceftriaxone <=1 S Ciprofloxacin <=1 S Ertapenem <=0.5 S Gentamicin <=4 S Levofloxacin <=2 S Meropenem <=1 S Nitrofurantoin <=32 S Piperacillin/ <=16 S Tazobactam Tetracycline <=4 S Tigecycline <=2 S Tobramycin <=4 S Trimethoprim/ <=2/38 S Sulfa Performing Locations R1: This test was performed at: [facility], [address] [place] [address], [address] , , [facility] Comment on above: Performed By: #### 2 [id number] ####[facility] [address] [place] [address] Nonvisit Note - PTon 023 Nonvisit Note - PT works better than tuesday per daughter Normal [facility] PT - Assessmentson PT - Assessments [id number]#1. 00CD:127 Normal [facility] PT - Assessments [id number]#1. 00CD:127 Normal [facility] Physician Orderon 03-30-2023 Physician Order [id number]#1. 00CD:127 Normal [facility] UA With Cult Reflexon 2022 Bacteria LM Ql (Urine sed) 3+ /HPF Abnormal Trace [facility] Comment on above: Performed By: #### 1 [id number], 4342946, 4961227, 7886764, 38753989 #### [facility] [address] [place] [address] Bilirubin Ql (U) Negative Normal Negative [facility] Comment on above: Performed By: #### 1 5085590, 8302658, 9573192, 1654255, 71369070 #### [facility] [address] [place] [address] Clarity (U) CLOUDY Abnormal Clear [facility] Comment on above: Performed By: #### 1 1918892, 0051419, 7444802, 2332436, 23730485 #### [facility] [address] [place] [address] Color (U) YELLOW Normal Yellow [facility] Comment on above: Performed By: #### 1 3598079, 2715697, 1001953, 1601613, 74800279 #### [facility] [address] [place] [address] Epithelial cells.squamous LM.HPF (Urine sed) [#/Area] 0-2 Normal 0-2 [facility] Comment on above: Performed By: #### 1 5293939, 6449123, 0290384, 5554564, 14599414 #### [facility] [address] [place] [address] Glucose Test strip (U) [Mass/Vol] Negative Normal Negative [facility] Comment on above: Performed By: #### 1 1259826, 7440734, 5183452, 5060976, 96679661 #### [facility] [address] [place] [address] Hemoglobin Ql (U) Negative Normal Negative [facility] Comment on above: Performed By: #### 1 2454504, 6722369, 2225121, 7487145, 16245087 #### [facility] [address] [place] [address] Ketones (U) [Mass/Vol] Negative Normal Negative [facility] Comment on above: Performed By: #### 1 3749998, 2669970, 9711364, 8086662, 87668101 #### [facility] [address] [place] [address] [place].plasma/[place]. RBC (Bld) [Mass ratio] 0-3 Normal 0-3 [facility] Comment on above: Performed By: #### 1 9265945, 9814252, 0960747, 6019262, 33126330 #### [facility] [address] [place] [address] Nitrite Ql (U) Positive Abnormal Negative [facility] Comment on above: Performed By: #### 1 8229944, 8595003, 6051406, 2539701, 50474716 #### [facility] [address] [place] [address] pH (U) 7.0 [pH] Invalid Interpretation Code 5.0-9.0 [facility] Comment on above: Performed By: #### 1 1430785, 9707104, 3077500, 7334101, 23346116 #### [facility] [address] [place] [address] Protein (U) [Mass/Vol] Negative Normal Negative [facility] Comment on above: Performed By: #### 1 1421336, 6399586, 6108390, 1157742, 87624537 #### [facility] [address] [place] [address] Specific gravity (U) [Rel density] 1.020 Invalid Interpretation Code 1.005-1.030 [facility] Comment on above: Performed By: #### 1 5720704, 9421714, 8570188, 3076718, 43496548 #### [facility] [address] [place] [address] Type of Urine collection method Clean Catch Normal [facility] Comment on above: Performed By: #### 1 9650684, 2840567, 7846616, 5276684, 86436489 #### [facility] [address] [place], [place] [address] Urobilinogen Qn (U) 1.0 {[place]'U}/dL Normal 0.0-1.0 [facility] Comment on above: Performed By: #### 1 8069057, 6128172, 2124070, 8359117, 91993704 #### [facility] [address] [place] [address] WBC Auto Ql (U) 1+ Abnormal Negative [facility] Comment on above: Performed By: #### 1 0199981, 0414035, 5911567, 4208253, 45853509 #### [facility] [address] [place] [address] WBC LM.HPF (Urine sed) [#/Area] /[HPF] Abnormal 0-5 [facility] Comment on above: Performed By: #### 1 9937722, 6325328, 4317835, 9165804, 96470673 #### [facility] [address] [place] [address] URINALYSISOrdered By: Laura Sharp on 03-30-2023 Bacteria LM Ql (Urine sed) 3+ /HPF Invalid Interpretation Code Trace/HPF [facility] UA Auto SS Bilirubin Ql (U) Negative (03/30/23 4:45 AM) Normal Negative [facility] UA Auto SS Clarity (U) Cloudy *ABN* (03/30/23 4:45 AM) Invalid Interpretation Code Clear [facility] UA Auto SS Color (U) Yellow (03/30/23 4:45 AM) Normal Yellow [facility] UA Auto SS Epithelial cells.squamous LM.HPF (Urine sed) [#/Area] 0-2 /HPF Normal 0-2/HPF [facility] UA Aut o SS Glucose Test strip (U) [Mass/Vol] Negative (03/30/23 4:45 AM) Normal Negative [facility] UA Auto SS Hemoglobin Ql (U) Negative (03/30/23 4:45 AM) Normal Negative [facility] UA Auto SS Ketones (U) [Mass/Vol] Negative (03/30/23 4:45 AM) Normal Negative [facility] UA Auto SS [place].plasma/[place]. RBC (Bld) [Mass ratio] 0-3 /HPF Normal 0-3/HPF [facility] UA A uto SS Nitrite Ql (U) Positive *ABN* (03/30/23 4:45 AM) Invalid Interpretation Code Negative [facility] UA Auto SS pH (U) 7.0 *NA* (03/30/23 4:45 AM) Invalid Interpretation Code 5.0 - 9.0 [facility] UA Auto SS Protein (U) [Mass/Vol] Negative (03/30/23 4:45 AM) Normal Negative [facility] UA Auto SS Specific gravity (U) [Rel density] 1.020 *NA* (03/30/23 4:45 AM) Invalid Interpretation Code 1.005 - 1.030 [facility] UA Auto SS UA Spec Desc Clean Catch (03/30/23 4:45 AM) Normal [facility] Auto SS Urobilinogen Qn (U) [id number] {[place]'U}/dL Normal 0.0 - 1.0 EU/dL [facility] Auto SS WBC Auto Ql (U) 1+ *ABN* (03/30/23 4:45 AM) Invalid Interpretation Code Negative [facility] Auto SS WBC LM.HPF (Urine sed) [#/Area] /[HPF] Invalid Interpretation Code 0-5/HPF [facility] UA Auto SS Family Medicine Office/Clini c Noteon 03-24-2023 Family Medicine Office/Clinic Note Chief Complaint TCU Discharge History of Present Illness Patient is being seen today for a discharge visit. TCU ADMIT from [facility] 03[facility] presented after fall at home and increased confusion since Tuesday 03/06, history of underlying dementia. There were no initial findings, she was admitted and seen by neurology with concerns of Lewy body dementia, mild. Having visual hallucinations, BuSpar had been increased a couple weeks ago. Pruritus and compulsion to itch and pick at skin. She stopped using her CPAP machine because she thought it was bothering her cat. Hx alcohol use, at least as recent as December 2021. They suggested avoiding first generation antihistamines for the itch. MRI with nonspecific small vessel ischemic changes, possible lacunar infarcts. Discharge for rehab stay. Had OP PT in January, for falls, broken toe. Hb 12.7 CR 0.7 ALB 2.9 [1] Patient on exam is pleasant. Denies any pain today. Uses walker to ambulate. Appetite good, bowels moving appropriately. No concerns from patient or staff at this time. Review of Systems as per HPI. all other ROS neg. Physical Exam General: Well developed, well nourished, in no acute distress Lungs: Normal respiratory effort and clear to auscultation Cardio: Regular rate and rhythm, no murmur Abdomen: Soft, non-distended, non-tender Musculoskeletal: No deformity noted. Normal range of motion. Joints normal. RLE: no edema_ LLE: no edema_ Neurologic: Grossly normal Skin: No rashes, ulcerations, or suspicious lesions Mental Status: Alert, clean and appropriately dressed, appropriate mood and affect. Assessment/Plan Patient will be discharging home with outpatient physical therapy only. 1. Dementia (F03.90: Unspecified dementia, unspecified severity, without behavioral disturbance, psychotic disturbance, mood disturbance, and anxiety) Mood is stable. 2. Recurrent falls (R29.6: Repeated falls) Working with pt/ot, uses walker. 3. Visual hallucinations (R44.1: Visual hallucinations) Resolved. Follow-up No qualifying data available Problem List/Past Medical History Ongoing Alcohol use disorder Benign neoplasm of colon Dementia Diabetes mellitus without complication Glaucoma Herpes labialis History of ventricular tachycardia Immunodeficiency due to treatment with immunosuppressive medication Lumbar spondylosis Neurodermatitis Nocturia Obesity Obstructive sleep apnea syndrome Palpitations Psoriatic arthritis Psychophysical visual disturbance Recurrent falls Urinary frequency Visual hallucinations Historical Arthritis Deformity of metatarsal Ventricular tachycardia Procedure/Surgical History Closed reduction of nasal fracture (02/05/2021), Helene osteotomy second and third metatarsal. capsulotomy third metatarsophalangeal joint. Helene osteotomy second metatarsophalangeal joint. proximal interphalangeal joint arthroplasty left second digit and to the left third digit (09/19/2014), Cataract (2012), Back, Right hammer toe and bunionectomy, RIght knee arthroscopy, tubal ligation. Medications Aricept 10 mg Tab, 10 mg= 1 tab(s), Oral, Once a day (at bedtime) busPIRone 15 mg Tab, 15 mg= 1 tab(s), Oral, BID CeleBREX 200 mg Cap, 200 mg= 1 cap(s), Oral, BID cetirizine 10 mg oral capsule, 10 mg= 1 cap(s), Oral, Bedtime Fish Oil, 1 tab, Oral, Daily Folate 0.4 mg Tab, 0.4 mg= 1 tab(s), Oral, Daily latanoprost Opth 0.005% Batool, See Instructions, Not taking Lexapro 20 mg Tab, 20 mg= 1 tab(s), Oral, Daily magnesium oxide 250 mg oral tablet, 250 mg= 1 tab(s), Oral, Daily, Not taking Melatonin 1 mg oral tablet, 1 mg, Oral, Once a day (at bedtime) metoprolol 25 mg ER Tab, 25 mg= 1 tab(s), Oral, Daily Multiple Vitamins Tab, 1 tab(s), Oral, Daily, Not taking omeprazole 20 mg Cap-DR, 20 mg= 1 cap(s), Oral, qAM Remicade tiZANidine 4 mg Tab, 4 mg= 1 tab(s), Oral, Bedtime Vitamin D3 2000 intl units, 2000 International_Unit, Oral, Daily, Not taking Allergies cortisone (severe headache) methylPREDNISolone (Unknown, Other: See Comments) Social History Alcohol - High Risk, 09/29/2021 Current, Drinks 1 Non-alcoholic Beer a day, Daily, 03/10/2023 Current, Beer, 3-5 times per week, 12/12/2021 Current, Beer, Daily, 09/29/2021 Substance Abuse - Denies Substance Abuse, 02/08/2014 Tobacco - Denies Tobacco Use, 02/08/2014 Never Smokeless Tobacco Use:., 12/12/2021 Never (less than 100 in lifetime) Tobacco Use:. Never Smokeless Tobacco Use:., 03/29/2020 Family History Family history is negative Immunizations Vaccine Date Status Comments influenza virus vaccine, inactivated 04/20/2022 Recorded pneumococcal 23-valent vaccine 03/02/2022 Recorded SARS-CoV-2 (COVID-19) mRNA BNT-162b2 vax 07/21/2021 Recorded SARS-CoV-2 (COVID-19) mRNA BNT-162b2 vax 09/25/2020 Recorded 2023-03-16: TPV75 SARS-CoV-2 (COVID-19) mRNA BNT-162b2 vax 09/04/2020 Recorded 2023-03-16: TPV75 zoster vaccine, inactivated 07/13/2019 Recorded diphtheria/pertussis, favian (more content not included)... Normal [facility] Comment on above: Result Comment: Elec tronically Signed By: Immanuel MOONEY-AYSHA, Nan Ibrahim\.br\Date and Time Signed: 03/24/23 11:48 EDT Family Medicine Office/Clini c Noteon 03-16-2023 Family Medicine Office/Clinic Note History of Present Illness TCU ADMIT from [facility] 03/[facility]7 presented after fall at home and increased confusion since Tuesday 03/06, history of underlying dementia. There were no initial findings, she was admitted and seen by neurology with concerns of Lewy body dementia, mild. Having visual hallucinations, BuSpar had been increased a couple weeks ago. Pruritus and compulsion to itch and pick at skin. She stopped using her CPAP machine because she thought it was bothering her cat. Hx alcohol use, at least as recent as December 2021. They suggested avoiding first generation antihistamines for the itch. MRI with nonspecific small vessel ischemic changes, possible lacunar infarcts. Discharge for rehab stay. Had OP PT in January, for falls, broken toe. Hb 12.7 CR 0.7 ALB 2.9 PMHx- dementia, OA, anxiety depression, DM (?) no meds, A1c 5.3, NAWAF, history of psoriatic arthritis on Remicade. Nonsustained VT on Holter Dec, 2021, nl lexiscan. Hx alcohol abuse. nonsmoker. PCP Dr. Edmond Pacheco Psychiatry Dr. Faustin Neurologist LAUREN Rheumatology Dr. 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 Assessment/Plan 1. Recurrent falls (R29.6: Repeated falls) ST rehab stay 2. Dementia (F03.90: Unspecified dementia, unspecified severity, without behavioral disturbance, psychotic disturbance, mood disturbance, and anxiety) Note patient had rather similar admission to this in the fall 2021, again with no particular findings. neuro suspicious for Lewy body dementia given her visual hallucinations but these seem to be 2 consists of a visual pattern to be in hallucinations? She basically sees it anytime she looks at a blank wall, sees geometric hexagon all shapes. Also has history of alcohol use, I would be concerned about alcohol related dementia and neuropathy as far as her falls. Her donepezil was 10 mg (on Ext Rx Hx review) 3. Alcohol use disorder (F10.90: Alcohol use, unspecified, uncomplicated) States her neighbor used to buy her a couple beers now and then told her daughter spoke to him about it. States she now has in a beer. There is an admission in December 2021 where she fell out of her car after being at a bar drinking. 4. History of ventricular tachycardia (Z86.79: Personal history of other diseases of the circulatory system) Seen on monitor December 2021, had Lexiscan and echocardiogram with Dr. Owen at the time. Has been on metoprolol ER 25 mg daily 5. Immunodeficiency due to treatment with immunosuppressive medication (D84.821: Immunodeficiency due to drugs) On Remicade through Dr. Taylor 6. Psoriatic arthritis (L40.50: Arthropathic psoriasis, unspecified) On Remicade through Dr. Taylor Is also on Celebrex 200 mg twice a day 7. 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 Mazariegos Other assisted (current) drug therapy (Z79.899: Other assisted (current) drug therapy) Follow-up No qualifying data available Problem List/Past Medical History Ongoing Alcohol use disorder Benign neoplasm of colon Dementia Diabetes mellitus without complication Glaucoma Herpes labialis History of ventricular tachycardia Immunodeficiency due to treatment with immunosuppressive medication Lumbar spondylosis Neurodermatitis Nocturia Obesity Obstructive sleep apnea syndrome Palpitations Psoriatic arthritis Psychophysical visual disturbance Recurrent falls Urinary frequency Visual hallucinations Historical Arthritis Deformity of metatarsal Ventricular tachycardia Procedure/Surgical History Closed reduction of nasal fracture (02/05/2021), Helene osteotomy second and third metatarsal. capsulotomy third metatarsophalangeal joint. Helene osteotomy second metatarsophalangeal joint. proximal interphalangeal joint arthroplasty left second digit and to the left third digit (09/19/2014), Cataract (2012), Back, Right hammer toe and bunionectomy, RIght knee arthroscopy, tubal ligation. Medications Aricept 10 mg Tab, 10 mg= 1 tab(s), Oral, Once a day (at bedtime) busPIRone 15 mg Tab, 15 mg= 1 tab(s), Oral, BID CeleBREX 200 mg Cap, 200 mg= 1 cap(s), Oral, BID cetirizine 10 mg oral capsule, 10 mg= 1 cap(s), Oral, Bedtime Fish Oil, 1 tab, Oral, Daily Folate 0.4 mg Tab, 0.4 mg= 1 tab(s), Oral, Daily latanoprost Opth 0.005% Batool, See Instructions, Not taking Lexapro 20 mg Tab, 20 mg= 1 tab(s), Oral, Daily magnesium oxide 250 mg oral tablet, 250 mg= 1 tab(s), Oral, Daily, Not taking Melatonin 1 mg oral tablet, 1 mg, Oral, Once a day (at bedtime) metoprolol 25 mg ER Tab, 25 mg= 1 tab(s), Oral, Daily Multiple Vitamins Tab, 1 tab(s), Oral, Daily, Not taking omeprazole 20 mg Cap-DR, 20 mg= 1 (more content not included)... Normal [facility] Comment on above: Result Comment: Elec tronically Signed By: PASCALE RODRIGUEZ, Inderjit\.br\Date and Time Signed: 03/16/23 21:17 EDT Insurance Correspondence Off iceon 03-16-2023 Insurance Correspondence Office [id number] [id number]:[id number] Normal [facility] CHEMISTRYOrdered By: SYSTEM SYSTEM on 03-11-2023 Anion gap [Moles/Vol] 5 mmol/L Low 6 - 16 mEq/L [facility] Remisol Calcium [Mass/Vol] 8.2 mg/dL Low 8.9 - 11. 1 mg/dL [facility] Remisol Chloride [Moles/Vol] 106 mmol/L Normal 101 - 1 11 mmol/L [facility] Remisol CO2 [Moles/Vol] 30 mmol/L Normal 21 - 31 mmol/L [facility] Remisol Creatinine [Mass/Vol] 0.7 mg/dL Normal 0.5 - 1.3 mg/dL [facility] GFR/1.73 sq M.predicted among non-blacks MDRD (S/P/Bld) [Vol rate/Area] 87 mL/min/1.73 m2 Normal >=59mL/min/ 1.73 m2 [facility] Chem S Glucose [Mass/Vol] 95 mg/dL Normal 55 - 199 mg/dL [facility] Magnesium [Mass/Vol] 1.8 mg/dL Normal 1.3 - 2 .4 mg/dL [facility]isol Potassium [Moles/Vol] 3.9 mmol/L Normal 3.5 - 5.3 mmol/L [facility] Remisol Sodium [Moles/Vol] 137 mmol/L Normal 135 - 145 mmol/L [facility] Remisol Urea nitrogen [Mass/Vol] 12 mg/dL Normal 5 - 21 mg/dL [facility]isol Urea nitrogen/Creatinine [Mass ratio] 17 mg/mg Normal 10 - 20 [facility] Remisol HEMATOLOGYOrdered By: SYSTEM SYSTEM on 03-11-2023 Basophils/100 WBC (Bld) 0.5 % Normal 0.0 - 2.0 % [facility] HemeAutoSS Basophils/Leukocytes Auto (Bld) [Pure # fraction] 0.0 E9/L Normal 0.0 - 0.2 E9/L [facility] HemeAutoSS Eosinophils/100 WBC (Bld) 4.2 % Normal 0.0 - 8.0 % [facility] HemeAutoSS Eosinophils/Leukocytes Auto (Bld) [Pure # fraction] 0.2 E9/L Normal 0.0 - 0.5 E9/L [facility] HemeAutoSS Lymphocytes/100 WBC (Bld) 43.6 % Normal 14.0 - 50.0 % [facility] HemeAutoSS Lymphocytes/Leukocytes Auto (Bld) [Pure # fraction] 1.7 E9/L Normal 1.0 - 4.0 E9/L [facility] HemeAutoSS Monocytes/100 WBC (Bld) 8.7 % Normal 4.0 - 14.0 % [facility] HemeAutoSS Monocytes/Leukocytes Auto (Bld) [Pure # fraction] 0.3 E9/L Normal 0.2 - 1.0 E9/L [facility] HemeAutoSS Neutrophils/100 WBC (Bld) 43.0 % Normal 36.0 - 75.0 % [facility] HemeAutoSS Neutrophils/Leukocytes Auto (Bld) [Pure # fraction] 1.7 E9/L Low 2.0 - 7.5 E9/L [facility] HemeAutoSS HEMATOLOGYOrdered By: Edita Norwood on 03-11-2023 Erythrocyte distribution width (RBC) [Ratio] 13.4 % Normal 10.9 - 14.2 % [facility] HemeAutoSS Hematocrit (Bld) [Volume fraction] 36.7 % Normal 34.0 - 46.0 % [facility] HemeAutoSS Hemoglobin (Bld) [Mass/Vol] 12.7 g/dL Normal 12.0 - 16.0 gm/dL [facility] HemeAutoSS MCH (RBC) [Entitic mass] 33.0 pg Normal 27.0 - 34.0 pg [facility] HemeAutoSS MCHC (RBC) [Mass/Vol] 34.7 g/dL Normal 31.4 - 36.0 gm/dL [facility] HemeAutoSS MCV (RBC) [Entitic vol] 95.2 fL Normal 80.0 - 100.0 fL [facility] HemeAutoSS Platelet mean volume (Bld) [Entitic vol] 7.8 fL Normal 6.4 - 10.8 fL [facility] HemeAutoSS Platelets (Bld) [#/Vol] 152.0 E9/L Normal 150. 0 - 500.0 E9/L [facility] HemeAutoSS RBC (Bld) [#/Vol] 3.8 E12/L Low 4.3 - 5.9 E12/L [facility] HemeAutoSS WBC corrected for nucl RBC Auto (Bld) [#/Vol] 3.9 E9/L Low 4.0 - 11.0 E9/L [facility] HemeAutoSS CHEMISTRYOrdered By: SYSTEM SYSTEM on 03-10-2023 Troponin I.cardiac [Mass/Vol] 9.00 pg/mL Low 10.10 - 27.10 pg/mL [facility] Remisol Albumin [Mass/Vol] 2.9 g/dL Low 3.3 - 5.0 gm/dL [facility] Remisol Albumin/Globulin [Mass ratio] 0.7 {ratio} Low 1.1 - 2.2 [facility] Rem[facility] ALP [Catalytic activity/Vol] 71 [iU]/d Normal 21 - 98 Int._Unit/L [facility] Rem[facility] ALT No additional P-5'-P [Catalytic activity/Vol] 18 [iU]/d Normal 6 - 46 Int._Unit/L [facility] Remisol AST [Catalytic activity/Vol] 32 [iU]/d Normal 5 - 43 Int._Unit/L [facility] Remisol Bilirubin [Mass/Vol] 0.8 mg/dL Normal 0.0 - 1 .1 mg/dL [facility] Remisol Bilirubin.direct [Mass/Vol] 0.2 mg/dL Normal 0.1 - 0.4 mg/dL [facility] Remisol Bilirubin.indirect [Mass or moles/Vol] 0.6 mg/dL Normal 0.1 - 0.9 mg/dL [facility] Globulin (S) [Mass/Vol] 4.2 g/dL High 1.4 - 4.0 gm/dL [facility] Protein [Mass/Vol] 7.1 g/dL Normal 6.0 - 7.8 gm/dL [facility] Remisol Troponin I.cardiac [Mass/Vol] 8.20 pg/mL Low 10.10 - 27.10 pg/mL [facility] Remisol Troponin I.cardiac [Mass/Vol] 7.60 pg/mL Low 10.10 - 27.10 pg/mL [facility]isol Anion gap [Moles/Vol] 10 mmol/L Normal 6 - 16 mEq/L [facility]isol Calcium [Mass/Vol] 8.6 mg/dL Low 8.9 - 11. 1 mg/dL [facility]isol Chloride [Moles/Vol] 101 mmol/L Normal 101 - 1 11 mmol/L [facility] CO2 [Moles/Vol] 28 mmol/L Normal 21 - 31 mmol/L [facility] Remisol Creatinine [Mass/Vol] 0.7 mg/dL Normal 0.5 - 1.3 mg/dL [facility] Remisol GFR/1.73 sq M.predicted among non-blacks MDRD (S/P/Bld) [Vol rate/Area] 87 mL/min/1.73 m2 Normal >=59mL/min/ 1.73 m2 [facility] Chem S Glucose [Mass/Vol] 102 mg/dL Normal 55 - 199 mg/dL [facility] Remisol Potassium [Moles/Vol] 3.9 mmol/L Normal 3.5 - 5.3 mmol/L [facility] Remisol Sodium [Moles/Vol] 135 mmol/L Normal 135 - 145 mmol/L [facility] Remisol Urea nitrogen [Mass/Vol] 10 mg/dL Normal 5 - 21 mg/dL [facility] Remisol Urea nitrogen/Creatinine [Mass ratio] 14 mg/mg Normal 10 - 20 [facility] Remisol CHEMISTRYOrdered By: Lab ROP User on 03-10-2023 Glucose [Mass/Vol] 109 mg/dL High 55 - 99 mg/dL [facility] POC Subsection POC Device SN [id number] Invalid Interpretation Code [facility] POC Subsection POC User ID [id number] Invalid Interpretation Code [facility] POC Subsection POC Username ELIDA RIVERA Invalid Interpretation Code [facility] POC Subsection COAGULATIONOrdered By: Ricarda aSab on 03-10-2023 aPTT Coag (PPP) [Time] 35.2 s Normal 25.1 - 36.5 second(s) [facility] Auto Coag INR Coag (PPP) [Relative time] 1.1 {INR} Invalid Interpretation Code [facility] Auto Coag PT Coag (PPP) [Time] 12.4 s Normal 9.4 - 1 2.5 second(s) [facility] Auto Coag HEMATOLOGYOrdered By: SYSTEM SYSTEM on 03-10-2023 Basophils/100 WBC (Bld) 0.9 % Normal 0.0 - 2.0 % [facility] HemeAutoSS Basophils/Leukocytes Auto (Bld) [Pure # fraction] 0.0 E9/L Normal 0.0 - 0.2 E9/L [facility] HemeAutoSS Eosinophils/100 WBC (Bld) 1.9 % Normal 0.0 - 8.0 % [facility] HemeAutoSS Eosinophils/Leukocytes Auto (Bld) [Pure # fraction] 0.1 E9/L Normal 0.0 - 0.5 E9/L [facility] HemeAutoSS Lymphocytes/100 WBC (Bld) 34.4 % Normal 14.0 - 50.0 % [facility] HemeAutoSS Lymphocytes/Leukocytes Auto (Bld) [Pure # fraction] 1.7 E9/L Normal 1.0 - 4.0 E9/L [facility] HemeAutoSS Monocytes/100 WBC (Bld) 5.8 % Normal 4.0 - 14.0 % [facility] HemeAutoSS Monocytes/Leukocytes Auto (Bld) [Pure # fraction] 0.3 E9/L Normal 0.2 - 1.0 E9/L [facility]eAutoSS Neutrophils/100 WBC (Bld) 57.0 % Normal 36.0 - 75.0 % [facility] HemeAutoSS Neutrophils/Leukocytes Auto (Bld) [Pure # fraction] 2.7 E9/L Normal 2.0 - 7.5 E9/L [facility]eAutoSS HEMATOLOGYOrdered By: Laura Sharp on 03-10-2023 Erythrocyte distribution width (RBC) [Ratio] 13.4 % Normal 10.9 - 14.2 % [facility] HemeAutoSS Hematocrit (Bld) [Volume fraction] 38.2 % Normal 34.0 - 46.0 % [facility] HemeAutoSS Hemoglobin (Bld) [Mass/Vol] 12.8 g/dL Normal 12.0 - 16.0 gm/dL [facility]eAuto[facility] MCH (RBC) [Entitic mass] 32.2 pg Normal 27.0 - 34.0 pg [facility]eAuto[facility] MCHC (RBC) [Mass/Vol] 33.6 g/dL Normal 31.4 - 36.0 gm/dL [facility]eAutoSS MCV (RBC) [Entitic vol] 95.8 fL Normal 80.0 - 100.0 fL [facility]eAutoSS Platelet mean volume (Bld) [Entitic vol] 7.2 fL Normal 6.4 - 10.8 fL [facility]eAuto[facility] Platelets (Bld) [#/Vol] 166.0 E9/L Normal 150. 0 - 500.0 E9/L [facility]eAuto[facility] RBC (Bld) [#/Vol] 4.0 E12/L Low 4.3 - 5.9 E12/L [facility]eAutoSS WBC corrected for nucl RBC Auto (Bld) [#/Vol] 4.8 E9/L Normal 4.0 - 11.0 E9/L [facility]eAutoSS URINALYSISOrdered By: Lizet Saab on 03-10-2023 Bacteria LM Ql (Urine sed) Trace /HPF Normal Trace/HPF [facility] UA Auto SS Bilirubin Ql (U) Negative (03/10/23 12:34 PM) Normal Negative [facility] UA Auto SS Clarity (U) Clear (03/10/23 12:34 PM) Normal Clear [facility] UA Auto SS Color (U) Yellow (03/10/23 12:34 PM) Normal Yellow [facility] UA Auto SS Epithelial cells.squamous LM.HPF (Urine sed) [#/Area] 0-2 /HPF Normal 0-2/HPF [facility] UA Aut o SS Glucose Test strip (U) [Mass/Vol] Negative (03/10/23 12:34 PM) Normal Negative [facility] UA Auto SS Hemoglobin Ql (U) Negative (03/10/23 12:34 PM) Normal Negative [facility] UA Auto SS Ketones (U) [Mass/Vol] Negative (03/10/23 12:34 PM) Normal Negative [facility] UA Auto SS [place].plasma/[place]. RBC (Bld) [Mass ratio] 0-3 /HPF Normal 0-3/HPF [facility] UA A uto SS Nitrite Ql (U) Negative (03/10/23 12:34 PM) Normal Negative [facility] UA Auto SS pH (U) 7.5 *NA* (03/10/23 12:34 PM) Invalid Interpretation Code 5.0 - 9.0 [facility] UA Auto SS Protein (U) [Mass/Vol] Negative (03/10/23 12:34 PM) Normal Negative [facility] UA Auto SS Specific gravity (U) [Rel density] 1.010 *NA* (03/10/23 12:34 PM) Invalid Interpretation Code 1.005 - 1.030 [facility] UA Auto SS UA Spec Desc Clean Catch (03/10/23 12:34 PM) Normal [facility] UA Auto SS Urobilinogen Qn (U) 4.1265099 {[place]'U}/dL Invalid Interpretation Code 0.0 - 1.0 EU/dL [facility] UA Auto SS WBC Auto Ql (U) Negative (03/10/23 12:34 PM) Normal Negative [facility] UA Auto SS WBC LM.HPF (Urine sed) [#/Area] 0-5 /HPF Normal 0-5/HPF [facility] UA Auto SS Klarissa 02-07-2023 [place] Telephone ([facility]) JVCARIDAD I ([id number]) 1940 F Date Time Provider Department 02/07/23 QUIANA WATERMAN [facility] During your visit today, we recorded the following information about you: Blaise Pathak 02/07/2023 12:09 PM Signed Dtr, Linh Riley LVM on [facility] Nurse Line on 02/10 @9:53A. Linh states pt was recently seen by the CULINARY SPECIALIST. She is wondering if she can get a Report sent to pt PCP, Tobi Pacheco in [place], [place]. Linh is POA and requesting a return call back at . Thank you, Blaise Mohamud RN 02/07/2023 12:56 PM Signed RN called daughter Linh back, no answer, left a detailed message that we will need the fax number to sent the requested notes to the new PCP Tobi Pacheco, [place], [place]. Joyce Mohamud RN Allergies As of Date: 02/07/2023 Noted Allergy Reaction CORTISONE 05/20/2017 14 - Other: See Comments Comments: Spinal fluid suppressed MEDROL DOSE PACK (METHYLPREDNISOL*08/31 14 - Other: See Comments Comments: Severe headaches Date Reviewed: 01/19/2023 Reviewed by: Coty Duque RN - Fully Assessed Reason for Visit: Results [95] Cmt: Pt daughter is requesting a copy of report Outside [facility] - Other [[id number]] Prescriptions as of 02/07/2023 - omeprazole (PRILOSEC) 20 mg capsule TAKE 1 CAPSULE BY MOUTH ONCE DAILY Oral for 30 Days - celecoxib (CELEBREX) 200 mg capsule Take 200 mg by mouth once daily. - escitalopram oxalate (LEXAPRO) 20 mg tablet Take 20 mg by mouth daily at bedtime. - busPIRone (BUSPAR) 10 mg tablet - infliximab (REMICADE INTRAVENOUS) Inject intravenously. Every 8 weeks - donepezil (ARICEPT) 10 mg tablet Take 5 mg by mouth daily at bedtime. - folic acid 400 mcg tablet Take 800 mcg by mouth. - Magnesium Oxide 250 mg magnesium tab Take 400 mg by mouth. - metoprolol succinate ER (TOPROL XL) 25 mg 24 hr tablet Take 25 mg by mouth once daily. - tiZANidine (ZANAFLEX) 4 mg tablet Take by mouth. - vitamin E, dl,tocopheryl acet, (VITAMIN E, DL, ACETATE,) 180 mg (400 unit) capsule Take 180 mg by mouth. - latanoprost (XALATAN) 0.005 % ophthalmic solution Use 1 Drop in both eyes once daily. - EPINEPHrine (EPIPEN) 0.3 mg/0.3 mL auto-injector - Multivitamins-Minerals -Lutein (CENTRUM SILVER) tab Take 1 tablet by mouth once daily. - Cholecalciferol, Vitamin D3, (VITAMIN D) 1,000 unit cap Take 1 capsule by mouth once daily. Problem List As Of Date 02/07/2023 Noted Resolved Senile cataract, unspecified [H25.9] 08/24/2013 Preglaucoma, unspecified [H40.009] 03/20/2014 Lens replaced by other means - Both Eyes [Z96.1]10/25/2014 Epiretinal membrane (ERM) of left eye [H35.372] 10/25/2014 After-cataract, obscuring vision - Both Eyes [H*10/25/2014 Preglaucoma [H40.009] 10/29/2015 Lens replaced [Z96.1] 10/29/2015 After-cataract obscuring vision [H26.499] 10/29/2015 Dry eye syndrome [H04.129] 10/29/2015 Glaucoma suspect of both eyes [H40.003] 11/16/2016 Dry eye syndrome, bilateral [H04.123] 05/20/2017 Epiretinal membrane (ERM) of both eyes [H35.373]05/20/2017 PCO (posterior capsular opacification), bilater*11/16/2017 Wfd-mzo-qykkjiiavji 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.529] 01/28/2020 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 Linh stated she was sorry she missed the Nurse call re: mom. Pt. verified 1940. Linh provided the fax number for Dr. Tobi Pacheco . Linh's contact number is . Thank you, Blaise Mohamud RN 02/07/2023 2:29 PM Signed RN returned daughter's phone call, no answer, left a message that I faxed over the last office visit notes to Dr. Tobi Pacheco to [facility] [phone]. Joyce Mohamud RN Allergies As of Date: 02/07/2023 Noted Allergy Reaction CORTISONE 05/20/2017 14 - Other: See Comments Comments: Spinal fluid suppressed MEDROL DOSE PACK (METHYLPREDNISOL*08/31 14 - Other: See Comments Comments: Severe headaches Date Reviewed: 01/19/2023 Reviewed by: Coty Duque RN - Fully Assessed Reason for Visit: Appointment [[id number]] Cmt: Returned call and gave Fax Number to Dr. Tobi Pacheco Outside [employer] - Other [[id number]] Prescriptions as of 02/07/2023 - omeprazole (PRILOSEC) 20 mg capsule TAKE 1 CAPSULE BY MOUTH ONCE DAILY Oral for 30 Days - celecoxib (CELEBREX) 200 mg capsule Take 200 mg by mouth once daily. - escitalopram oxalate (LEXAPRO) 20 mg tablet Take 20 mg by mouth daily at bedtime. - busPIRone (BUSPAR) 10 mg tablet - infliximab (REMICADE INTRAVENOUS) Inject intravenously. Every 8 weeks - donepezil (ARICEPT) 10 mg tablet Take 5 mg by mouth daily at bedtime. - folic acid 400 mcg tablet Take 800 mcg by mouth. - Magnesium Oxide 250 mg magnesium tab Take 400 mg by mouth. - metoprolol succinate ER (TOPROL XL) 25 mg 24 hr tablet Take 25 mg by mouth once daily. - tiZANidine (ZANAFLEX) 4 mg tablet Take by mouth. - vitamin E, dl,tocopheryl acet, (VITAMIN E, DL, ACETATE,) 180 mg (400 unit) capsule Take 180 mg by mouth. - latanoprost (XALATAN) 0.005 % ophthalmic solution Use 1 Drop in both eyes once daily. - EPINEPHrine (EPIPEN) 0.3 mg/0.3 mL auto-injector - Multivitamins-Minerals -Lutein (CENTRUM SILVER) tab Take 1 tablet by mouth once daily. - Cholecalciferol, Vitamin D3, (VITAMIN D) 1,000 unit cap Take 1 capsule by mouth once daily. Problem List As Of Date 02/07/2023 Noted Resolved Senile cataract, unspecified [H25.9] 08/24/2013 Preglaucoma, unspecified [H40.009] 03/20/2014 Lens replaced by other means - Both Eyes [Z96.1]10/25/2014 Epiretinal membrane (ERM) of left eye [H35.372] 10/25/2014 After-cataract, obscuring vision - Both Eyes [H*10/25/2014 Preglaucoma [H40.009] 10/29/2015 Lens replaced [Z96.1] 10/29/2015 After-cataract obscuring vision [H26.499] 10/29/2015 Dry eye syndrome [H04.129] 10/29/2015 Glaucoma suspect of both eyes [H40.003] 11/16/2016 Dry eye syndrome, bilateral [H04.123] 05/20/2017 Epiretinal membrane (ERM) of both eyes [H35.373]05/20/2017 PCO (posterior capsular opacification), bilater*11/16/2017 Xcq-rdm-mishklagxps 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.529] 01/28/2020 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] 01/20/2023 Alcohol abuse [F10.10] 01/20/2023 Visual hallucinations [R44.1] 01/20/2023 NAWAF (obstructive sleep apnea) [G47.33] 01/20/2023 Encounter Status:Closed by JOYCE MOHAMUD on 02/07/23 [facility]) CARIDAD GLOVER I ([id number]) 1940 F Date Time Provider Department 01/28/23 YARI WELSH During your visit today, we recorded the following information about you: LORY Vallejo 01/28/2023 4:21 PM Signed 01/28/23 Secure e-mail with the following information was sent to the pt's dtr for review: Thank you for your patience as I gathered the information listed below. Unfortunately, many of the senior communities in the area requested are not pet friendly. I have indicated the communities that are listed as pet friendly. I know this narrows down the list quite a bit. Another resource that you may find helpful is The [facility]-Information AND Referral line. Call [phone] and select option 0 for all other services AND request senior resources. When reviewing the list of communities, please reference the abbreviation gonzalez listed below. [place] (Independent Living) AL (Assisted Living) AL-MC (Assisted Living with secure memory care unit) AL-MS (Assisted Living with memory care support) SN-Snf LTC-MC (long-term care with secure memory care unit) LTC-MS (long-term care with memory support) [facility] [place] ([place]; AL; SN) *Pet friendly [address] [place] [address] [facility] (AL; SN) *Pets welcome [address] [place] [address] [facility] (AL-MC; SN) *Pet friendly for small pets [address] [place] [address] [facility] ([place]; [place]; AL-MC; SN) *Possibly pet friendly [address] [facility] [place] [address] [facility] (MC; SN; LTC) [address] , [place] [address] [facility] ([place]; AL) [address] [facility] , [place], [place] [id number] [facility] ([place]; AL; AL-MC; SN; LT) [address], [place] [id number] [facility] (AL) [address] [place] [address] [employer] ([place]; AL; AL-MC; SN) [address] [place] [address] will remain available. LORY Vallejo Allergies As of Date: 01/28/2023 Noted Allergy Reaction CORTISONE 05/20/2017 14 - Other: See Comments Comments: Spinal fluid suppressed MEDROL DOSE PACK (METHYLPREDNISOL*08/31 14 - Other: See Comments Comments: Severe headaches Date Reviewed: 01/19/2023 Reviewed by: Coty Duque RN - Fully Assessed Reason for Visit: Outside [employer] - Other [[id number]] Prescriptions as of 01/28/2023 - omeprazole (PRILOSEC) 20 mg capsule TAKE 1 CAPSULE BY MOUTH ONCE DAILY Oral for 30 Days - celecoxib (CELEBREX) 200 mg capsule Take 200 mg by mouth once daily. - escitalopram oxalate (LEXAPRO) 20 mg tablet Take 20 mg by mouth daily at bedtime. - busPIRone (BUSPAR) 10 mg tablet - infliximab (REMICADE INTRAVENOUS) Inject intravenously. Every 8 weeks - donepezil (ARICEPT) 10 mg tablet Take 5 mg by mouth daily at bedtime. - folic acid 400 mcg tablet Take 800 mcg by mouth. - Magnesium Oxide 250 mg magnesium tab Take 400 mg by mouth. - metoprolol succinate ER (TOPROL XL) 25 mg 24 hr tablet Take 25 mg by mouth once daily. - tiZANidine (ZANAFLEX) 4 mg tablet Take by mouth. - vitamin E, dl,tocopheryl acet, (VITAMIN E, DL, ACETATE,) 180 mg (400 unit) capsule Take 180 mg by mouth. - latanoprost (XALATAN) 0.005 % ophthalmic solution Use 1 Drop in both eyes once daily. - EPINEPHrine (EPIPEN) 0.3 mg/0.3 mL auto-injector - Multivitamins-Minerals -Lutein (CENTRUM SILVER) tab Take 1 tablet by mouth once daily. - Cholecalciferol, Vitamin D3, (VITAMIN D) 1,000 unit cap Take 1 capsule by mouth once daily. Problem List As Of Date 01/28/2023 Noted Resolved Senile cataract, unspecified [H25.9] 08/24/2013 Preglaucoma, unspecified [H40.009] 03/20/2014 Lens replaced by other means - Both Eyes [Z96.1]10/25/2014 Epiretinal membrane (ERM) of left eye [H35.372] 10/25/2014 After-cataract, obscuring vision - Both Eyes [H*10/25/2014 Preglaucoma [H40.009] 10/29/2015 Lens replaced [Z96.1] 10/29/2015 After-cataract obscuring vision [H26.499] 10/29/2015 Dry eye syndrome [H04.129] 10/29/2015 Glaucoma suspect of both eyes [H40.003] 11/16/2016 Dry eye syndrome, bilateral [H04.123] 05/20/2017 Epiretinal membrane (ERM) of both eyes [H35.373]05/20/2017 PCO (posterior capsular opacification), bilater*11/16/2017 [place]-so[place]uc[place]zo 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 Normal [facility] Alanine aminotransferase [En zymatic activity/volume] in Serum or PlasmaOrdered By: Carline Jackson on 01-20-2023 ALT [Catalytic activity/Vol] 18 U/L 7-52 [facility] Albumin [Mass/volume] in Ser um or Plasma by Bromocresol green (BCG) dye binding methoOrdered By: Carline Jackson on 01-20-2023 Albumin BCG dye [Mass/Vol] 3.3 g/dL 3.5-5.7 [facility] Alkaline phosphatase [Enzyma tic activity/volume] in Serum or PlasmaOrdered By: Carline Jackson on 01-20-2023 ALP [Catalytic activity/Vol] 80 U/L 34-104 [facility] Aspartate aminotransferase [ Enzymatic activity/volume] in Serum or PlasmaOrdered By: Carline Jackson on 01-20-2023 AST [Catalytic activity/Vol] 38 U/L 13-39 [facility] Basophils Auto (Bld) [#/Vol] Ordered By: Carline Jackson on 01-20-2023 Basophils (Bld) [#/Vol] 0.0 10*3/uL 0.0-0.2 [facility] Basophils/100 WBC Auto (Bld) Ordered By: Carline Jackson on 01-20-2023 Basophils/100 WBC (Bld) 0.7 % . [facility] Bilirubin.total [Mass/volume ] in Serum or PlasmaOrdered By: Carline Jackson on 01-20-2023 Bilirubin [Mass/Vol] 0.8 mg/dL 0.3-1.0 [facility] Calcium [Mass/volume] in Ser um or PlasmaOrdered By: Carline Jackson on 01-20-2023 Calcium [Mass/Vol] 8.4 mg/dL 8.6-10.3 [facility] Carbon dioxide, total [Moles /volume] in Serum or PlasmaOrdered By: Carline Jackson on 01-20-2023 CO2 [Moles/Vol] 26.8 mmol/L 21.0-31.0 [facility] Chloride [Moles/volume] in S marianna or PlasmaOrdered By: Carline Jackson on 01-20-2023 Chloride [Moles/Vol] 103 mmol/L 98-107 [facility] Creatinine [Mass/volume] in Serum or PlasmaOrdered By: Carline Jackson on 01-20-2023 Creatinine [Mass/Vol] 0.64 mg/dL 0.60-1.20 [facility] Eosinophils Auto (Bld) [#/Vo l]Ordered By: Carline Jackson on 01-20-2023 Eosinophils (Bld) [#/Vol] 0.2 10*3/uL 0.0-0.45 [facility] Eosinophils/100 WBC Auto (Bl d)Ordered By: Carline Jackson on 01-20-2023 Eosinophils/100 WBC (Bld) 3.4 % . [facility] Erythrocyte distribution wid th Auto (RBC) [Ratio]Ordered By: Carline Jackson on 01-20-2023 Erythrocyte distribution width (RBC) [Ratio] 13.5 % 11.9-15.3 [facility] Erythrocyte sedimentation ra te by Photometric methodOrdered By: Carline Jackson on 01-20-2023 ESR Photometric method (Bld) [Velocity] 42 mm/hr 0-29 [facility] Globulin Calc (S) [Mass/Vol] Ordered By: Calrine Jackson on 01-20-2023 Globulin (S) [Mass/Vol] 4.4 g/dL [facility] Glucose [Mass/volume] in Ser um or PlasmaOrdered By: Carline Jackson on 01-20-2023 Glucose [Mass/Vol] 79 mg/dL 70-100 [facility] Comment on above: ADA recommended refe rence rangeRandom Glucose Reference Range is dependent on time and content of last meal. Glucose of more than 200 mg/dL in a nonstressed, ambulatory subject supports the diagnosis of Diabetes Mellitus. Hematocrit Auto (Bld) [Volum e fraction]Ordered By: Carline Jackson on 01-20-2023 Hematocrit (Bld) [Volume fraction] 37.1 % 34.0-46.4 [facility] Hemoglobin [Mass/volume] in BloodOrdered By: Carline Jackson on 01-20-2023 Hemoglobin (Bld) [Mass/Vol] 12.5 g/dL 11.8-15.4 [facility] Leukocytes [#/volume] correc kala for nucleated erythrocytes in Blood by Automated counOrdered By: Carline Jackson on 01-20-2023 WBC corrected for nucl RBC Auto (Bld) [#/Vol] 4.8 10*3/uL 3.8-11.6 [facility] Lymphocytes Auto (Bld) [#/Vo l]Ordered By: Carline Jackson on 01-20-2023 Lymphocytes (Bld) [#/Vol] 2.0 10*3/uL 1.00-4.8 [facility] Lymphocytes/100 WBC Auto (Bl d)Ordered By: Carline Jackson on 01-20-2023 Lymphocytes/100 WBC (Bld) 41.0 % . [facility] MCH Auto (RBC) [Entitic mass ]Ordered By: Carline Jackson on 01-20-2023 MCH (RBC) [Entitic mass] 32.5 pg 24.7-34.3 [facility] MCHC Auto (RBC) [Mass/Vol]Or dered By: Carline Jackson on 01-20-2023 MCHC (RBC) [Mass/Vol] 33.8 g/dL 32.0-35.0 [facility] MCV Auto (RBC) [Entitic vol] Ordered By: Carline Jackson on 01-20-2023 MCV (RBC) [Entitic vol] 96.1 fL 80-100 [facility] Monocytes Auto (Bld) [#/Vol] Ordered By: Carline Jackson on 01-20-2023 Monocytes (Bld) [#/Vol] 0.4 10*3/uL 0.0-0.8 [facility] Monocytes/100 WBC Auto (Bld) Ordered By: Carline Jackson on 01-20-2023 Monocytes/100 WBC (Bld) 7.9 % . [facility] Neutrophils Auto (Bld) [#/Vo l]Ordered By: Carline Jackson on 01-20-2023 Neutrophils (Bld) [#/Vol] 2.2 10*3/uL 1.8-7.7 [facility] Neutrophils/100 WBC Auto (Bl d)Ordered By: Carline Jackson on 01-20-2023 Neutrophils/100 WBC (Bld) 47.0 % . [facility] No Panel InformationOrdered By: Carline Jackson on 01-20-2023 Estimated GFR (CKD-EPI) > 60.0 mL/Min [facility] Pharmacy Creatinine Clearance (Chem N/A [facility] Nucleated erythrocytes [Pres ence] in Blood by Automated countOrdered By: Carline Jackson on 01-20-2023 Nucleated RBC Auto Ql (Bld) 0.2 /100{WBC} 0-0.5 [facility] Platelet mean volume Auto (B ld) [Entitic vol]Ordered By: Carline Jackson on 01-20-2023 Platelet mean volume (Bld) [Entitic vol] 7.8 fL 6.3-10.7 [facility] Platelets Auto (Bld) [#/Vol] Ordered By: Carline Jackson on 01-20-2023 Platelets (Bld) [#/Vol] 174 10*3/uL 150-450 [facility] Potassium [Moles/volume] in Serum or PlasmaOrdered By: Carline Jackson on 01-20-2023 Potassium [Moles/Vol] 4.3 mmol/L 3.5-5.1 [facility] Protein [Mass/volume] in Ser um or PlasmaOrdered By: Carline Jackson on 01-20-2023 Protein [Mass/Vol] 7.7 g/dL 6.4-8.9 [facility] RBC Auto (Bld) [#/Vol]Ordere d By: Carline Jackson on 01-20-2023 RBC (Bld) [#/Vol] 3.86 10*6/uL 3.60-5.00 [facility] Serum or plasma albumin/glob ulin mass ratioOrdered By: Carline Jackson on 01-20-2023 Albumin/Globulin [Mass ratio] 0.8 {ratio} [facility] Serum or plasma anion gap de terminationOrdered By: Carline Jackson on 01-20-2023 Anion gap [Moles/Vol] 8.5 mmol/L 6.0-15.0 [facility] Sodium [Moles/volume] in Ser um or PlasmaOrdered By: Carline Jackson on 01-20-2023 Sodium [Moles/Vol] 134 mmol/L 136-145 [facility] Urea nitrogen [Mass/volume] in Serum or PlasmaOrdered By: Carline Jackson on 01-20-2023 Urea nitrogen [Mass/Vol] 17 mg/dL 7-25 [facility] WBC Auto (Bld) [#/Vol]Ordere d By: Carline Jackson on 01-20-2023 WBC (Bld) [#/Vol] 4.8 10*3/uL 3.8-11.6 [facility] CNOVon 01-19-2023 CNOV Office Visit ([facility] ) CARIDAD GLOVER I ([id number]) 1940 F Date Time Provider Department 01/19/23 12:30 PM QUIANA WATERMAN During your visit today, we recorded the following information about you: Pulse Blood pressure Weight 54/minute 160/81 84.5 kg Quiana Waterman APRN.SCARIFIER OPERATOR 01/20/2023 12:16 PM Signed Date: January 19, 2023 CARIDAD GLOVER [id number] [place] [address] [facility] INITIAL PATIENT EVALUATION Reason for Consult: Cognitive changes, Mobility decline, and Behavioral changes I had the pleasure of seeing this 82 year old year old female at the [facility]. The patient is referred by SELF Patient is accompanied by and information obtained from Daughter Linh and available records in the system. Background and History of Present Illness: Here for guidance on next steps. Goal is to keep the pt safe at home. Change in behavior noted approximately 6 years ago, shortly after the of her spouse. The pt began drinking more, she was gambling and lost money. She has succumbed to scams. 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 She has had chronic cognitive impairment with gradual progression and as of February with neuropsychology she retained enough independence to be considered to have mild cognitive impairment, but I think things have significantly progressed past then. With the prominent visual hallucinations, dementia with Lewy bodies will be a consideration. She does not have any outward parkinsonian manifestations. No acute pathology on MRI of brain. The pt is followed by Dr. Faustin for psychiatry. She has a history of MDD and anxiety (skin picking behavior). Symptoms Cognition Memory problems include short-term memory impairment, impaired learning ability, rapid forgetting and forgetting events. Long-term memory impairment and repeating statements and questions are not present. Difficulty coming up with common words and impaired fluency contribute to communication problems. There is impaired reasoning, impaired judgment and impaired planning. There are episodes of confusion. In daily life, she needs assistance with instrumental ADL?s (physical assist in the shower). Behavior Mood is described as anxious (skin picking behavior). Personality has changed-Change following of spouse-drinking more, gambling, going out. She is sleeping more. Appetite is increased for sweets. Behavioral aberrations: - visual hallucinations and delusions - children, faces in windows, long hair on her arm hallucinations Physical/Motor The patient has had unsteadiness and falling. Functional Assessment Staging (FAST) 4=Decreased ability to perform complex tasks, e.g., planning dinner for guests, handling personal finances (such as forgetting to pay bills), difficulty marketing, etc. Onset and Progression: 6 years ago, change in behavior following the of her spouse-going out, gambling, lost money, drinking more. Previous and Current treatment: Donepezil (Aricept) 5 mg, Quetiapine (per dtr is NOT taking), busPIRone hydrochloride, escitalopram Functional Abilities ADL'S: Bathing:Needs assistance getting in and out of the tub-dtr assists Dressing: Independent Eating: Independent Toileting: Independent Ambulation: independent Falls in last 12 months:Yes, frequent falls, fell today. Some falls have been associated with alcohol use. Assistive device: other rollator walker IADL's Meal prep/Cooking: Needs assistance Shopping: Needs assistance Housekeeping: Needs assistance Laundry: Needs assistance Medication mgt.: Needs assistance Pill box in use? Yes, filled by dtr Telephone: Independent Finances: Needs assistance Who does? Daughter Linh Transportation: Needs assistance Is the patient driving: No, stopped driving one year ago. 5. Activities of Daily Living [place] Index of [place] in Activities of Daily Living (A.D.L.) Bathing: Need help with bathing more than one part of the body, getting in or out of the tub or shower. Requires total bathing. (0 POINTS) Transferring: Moves in and out of bed or chair unassisted. Mechanical transfer aids are acceptable. (1 POINT) Feeding: Gets food from plate into mouth without help. Preparation of food may be done by another person. (1 POINT) [place] Instrumental Activities of Daily Living Scale (I.A.D.L.) Ability to Use Telephone: Dials a few well-known numbers (1 POINT) Shopping: Needs to be accompanied on any shopping trip (0 POINTS) Food Preparation: Needs to have meals prepare (more content not included)... Normal [facility] CNCOon 12-31-2022 CNCO Letter Text Normal [facility] Basophils Auto (Bld) [#/Vol] Ordered By: Carline Jackson on 09-23-2022 Basophils (Bld) [#/Vol] 0.0 10*3/uL 0.0-0.2 [facility] Basophils/100 WBC Auto (Bld) Ordered By: Carline Jackson on 09-23-2022 Basophils/100 WBC (Bld) 0.7 % . [facility] Body fluid albumin measureme nt (mass/volume)Ordered By: Carline Jackson on 09-23-2022 Albumin (Body fld) [Mass/Vol] 2.8 g/dL 3.2-5.5 [facility] Creatinine and Glomerular fi ltration rate.predicted panel (S/P/Bld)Ordered By: Carline Jackson on 09-23-2022 Creatinine [Mass/Vol] 0.74 mg/dL 0.44-1.03 [facility] Eosinophils Auto (Bld) [#/Vo l]Ordered By: Carline Jackson on 09-23-2022 Eosinophils (Bld) [#/Vol] 0.2 10*3/uL 0.0-0.45 [facility] Eosinophils/100 WBC Auto (Bl d)Ordered By: Carline Jackson on 09-23-2022 Eosinophils/100 WBC (Bld) 3.7 % . [facility] Erythrocyte distribution wid th Auto (RBC) [Ratio]Ordered By: Carline Jackson on 09-23-2022 Erythrocyte distribution width (RBC) [Ratio] 13.7 % 11.9-15.3 [facility] Erythrocyte sedimentation ra te by Photometric methodOrdered By: Carline Jackson on 09-23-2022 ESR Photometric method (Bld) [Velocity] 39 mm/hr 0-29 [facility] Estimated glomerular filtrat ion rate (GFR) non- AmericanOrdered By: Carline Jackson on 09-23-2022 GFR/1.73 sq M.predicted among non-blacks MDRD (S/P/Bld) [Vol rate/Area] > 60 mL/Min [facility] Globulin Calc (S) [Mass/Vol] Ordered By: Carline Jackson on 09-23-2022 Globulin (S) [Mass/Vol] 4.4 g/dL [facility] Hematocrit Auto (Bld) [Volum e fraction]Ordered By: Carline Jackson on 09-23-2022 Hematocrit (Bld) [Volume fraction] 38.0 % 34.0-46.4 [facility] Hemoglobin [Mass/volume] in BloodOrdered By: Carline Jackson on 09-23-2022 Hemoglobin (Bld) [Mass/Vol] 12.5 g/dL 11.8-15.4 [facility] Leukocytes [#/volume] correc kala for nucleated erythrocytes in Blood by Automated counOrdered By: Carline Jackson on 09-23-2022 WBC corrected for nucl RBC Auto (Bld) [#/Vol] 4.5 10*3/uL 3.8-11.6 [facility] Lymphocytes Auto (Bld) [#/Vo l]Ordered By: Carline Jackson on 09-23-2022 Lymphocytes (Bld) [#/Vol] 1.5 10*3/uL 1.00-4.8 [facility] Lymphocytes/100 WBC Auto (Bl d)Ordered By: Carline Jackson on 09-23-2022 Lymphocytes/100 WBC (Bld) 34.1 % . [facility] MCH Auto (RBC) [Entitic mass ]Ordered By: Carline Jackson on 09-23-2022 MCH (RBC) [Entitic mass] 31.7 pg 24.7-34.3 [facility] MCHC Auto (RBC) [Mass/Vol]Or dered By: Carline Jackson on 09-23-2022 MCHC (RBC) [Mass/Vol] 32.8 g/dL 32.0-35.0 [facility] MCV Auto (RBC) [Entitic vol] Ordered By: Carline Jackson on 09-23-2022 MCV (RBC) [Entitic vol] 96.7 fL 80-100 [facility] Monocytes Auto (Bld) [#/Vol] Ordered By: Carline Jackson on 09-23-2022 Monocytes (Bld) [#/Vol] 0.4 10*3/uL 0.0-0.8 [facility] Monocytes/100 WBC Auto (Bld) Ordered By: Carline Jackson on 09-23-2022 Monocytes/100 WBC (Bld) 8.5 % . [facility] Neutrophils Auto (Bld) [#/Vo l]Ordered By: Carline Jackson on 09-23-2022 Neutrophils (Bld) [#/Vol] 2.4 10*3/uL 1.8-7.7 [facility] Neutrophils/100 WBC Auto (Bl d)Ordered By: Carline Jackson on 09-23-2022 Neutrophils/100 WBC (Bld) 53.0 % . [facility] No Panel InformationOrdered By: Carline Jackson on 09-23-2022 Estimated GFR () > 60 mL/Min [facility] Comment on above: GFR estimated refere nce range: According to KDOQI guidelines, <60 ml/min/1.73m2 is sufficient to diagnose a patient with chronic kidney disease. Pharmacy Creatinine Clearance (Chem N/A [facility] Nucleated erythrocytes [Pres ence] in Blood by Automated countOrdered By: Carline Jackson on 09-23-2022 Nucleated RBC Auto Ql (Bld) 0.5 /100{WBC} 0-0.5 [facility] Platelet mean volume Auto (B ld) [Entitic vol]Ordered By: Carline Jackson on 09-23-2022 Platelet mean volume (Bld) [Entitic vol] 7.9 fL 6.3-10.7 [facility] Platelets Auto (Bld) [#/Vol] Ordered By: Carline Jackson on 09-23-2022 Platelets (Bld) [#/Vol] 187 10*3/uL 150-450 [facility] Protein [Mass/volume] in Ser um or PlasmaOrdered By: Carline Jackson on 09-23-2022 Protein [Mass/Vol] 7.2 g/dL 6.1-7.9 [facility] RBC Auto (Bld) [#/Vol]Ordere d By: Carline Jackson on 02-16-2023 RBC (Bld) [#/Vol] 3.93 10*6/uL 3.60-5.00 [facility] Serum or plasma alanine robins otransferase measurement without P-5'-P (enzymatic activiOrdered By: Carline Jackson on 09-23-2022 ALT No additional P-5'-P [Catalytic activity/Vol] 26 U/L 10-60 [facility] Serum or plasma albumin/glob ulin mass ratioOrdered By: Carline Jackson on 09-23-2022 Albumin/Globulin [Mass ratio] 0.6 {ratio} [facility] Serum or plasma alkaline rolando sphatase measurement (enzymatic activity/volume)Ordered By: Carline Jackson on 09-23-2022 ALP [Catalytic activity/Vol] 63 U/L 32-92 [facility] Serum or plasma anion gap de terminationOrdered By: Carline Jackson on 09-23-2022 Anion gap [Moles/Vol] 11.3 mmol/L 6.0-15.0 [facility] Serum or plasma aspartate am inotransferase measurement (enzymatic activity/volume)Ordered By: Carline Jackson on 09-23-2022 AST [Catalytic activity/Vol] 50 U/L 10-42 [facility] Serum or plasma calcium saray urement (mass/volume)Ordered By: Carline Jackson on 09-23-2022 Calcium [Mass/Vol] 8.6 mg/dL 8.2-10.2 [facility] Serum or plasma chloride van surement (moles/volume)Ordered By: Carline Jackson on 09-23-2022 Chloride [Moles/Vol] 100 mmol/L 95-114 [facility] Serum or plasma glucose saray urement (mass/volume)Ordered By: Carline Jackson on 09-23-2022 Glucose [Mass/Vol] 105 mg/dL 70-100 [facility] Comment on above: ADA recommended refe rence rangeRandom Glucose Reference Range is dependent on time and content of last meal. Glucose of more than 200 mg/dL in a nonstressed, ambulatory subject supports the diagnosis of Diabetes Mellitus. Serum or plasma potassium me asurement (moles/volume)Ordered By: Carline Jackson on 09-23-2022 Potassium [Moles/Vol] 4.4 mmol/L 3.5-5.1 [facility] Serum or plasma sodium measu rement (moles/volume)Ordered By: Carline Jackson on 09-23-2022 Sodium [Moles/Vol] 134 mmol/L 136-146 [facility] Serum or plasma total biliru bin measurement (mass/volume)Ordered By: Carline Jackson on 09-23-2022 Bilirubin [Mass/Vol] 0.9 mg/dL 0.3-1.2 [facility] Serum or plasma total carbon dioxide measurement (moles/volume)Ordered By: Carline Jackson on 09-23-2022 CO2 [Moles/Vol] 27.1 mmol/L 22.0-30.0 [facility] Serum or plasma urea nitroge n measurement (mass/volume)Ordered By: Carline Jackson on 09-23-2022 Urea nitrogen [Mass/Vol] 10 mg/dL 9-23 [facility] WBC Auto (Bld) [#/Vol]Ordere d By: Carline Jackson on 09-23-2022 WBC (Bld) [#/Vol] 4.5 10*3/uL 3.8-11.6 [facility] Albumin [Mass/volume] in Ser um or PlasmaOrdered By: Sunny Taylor on 07-21-2022 Albumin [Mass/Vol] 2.6 g/dL 3.2-5.5 [facility] Basophils Auto (Bld) [#/Vol] Ordered By: Sunny Taylor on 07-21-2022 Basophils (Bld) [#/Vol] 0.0 10*3/uL 0.0-0.2 [facility] Basophils/100 WBC Auto (Bld) Ordered By: Sunny Taylor on 07-21-2022 Basophils/100 WBC (Bld) 0.6 % . [facility] Creatinine and Glomerular fi ltration rate.predicted panel (S/P/Bld)Ordered By: Sunny Taylor on 07-21-2022 Creatinine [Mass/Vol] 0.62 mg/dL 0.44-1.03 [facility] Eosinophils Auto (Bld) [#/Vo l]Ordered By: Sunny Taylor on 07-21-2022 Eosinophils (Bld) [#/Vol] 0.1 10*3/uL 0.0-0.45 [facility] Eosinophils/100 WBC Auto (Bl d)Ordered By: Sunny Taylor on 07-21-2022 Eosinophils/100 WBC (Bld) 1.7 % . [facility] Erythrocyte distribution wid th Auto (RBC) [Ratio]Ordered By: uSnny Taylor on 07-21-2022 Erythrocyte distribution width (RBC) [Ratio] 13.4 % 11.9-15.3 [facility] Erythrocyte sedimentation ra te by Photometric methodOrdered By: Sunny Taylor on 07-21-2022 ESR Photometric method (Bld) [Velocity] 38 mm/hr 0-29 [facility] Estimated glomerular filtrat ion rate (GFR) non- AmericanOrdered By: Sunny Taylor on 07-21-2022 GFR/1.73 sq M.predicted among non-blacks MDRD (S/P/Bld) [Vol rate/Area] > 60 mL/Min [facility] Globulin Calc (S) [Mass/Vol] Ordered By: Sunny Taylor on 07-21-2022 Globulin (S) [Mass/Vol] 4.3 g/dL [facility] Hematocrit Auto (Bld) [Volum e fraction]Ordered By: Sunny Taylor on 07-21-2022 Hematocrit (Bld) [Volume fraction] 37.5 % 34.0-46.4 [facility] Hemoglobin [Mass/volume] in BloodOrdered By: Sunny Taylor on 07-21-2022 Hemoglobin (Bld) [Mass/Vol] 12.5 g/dL 11.8-15.4 [facility] Leukocytes [#/volume] correc kala for nucleated erythrocytes in Blood by Automated counOrdered By: Sunny Taylor on 07-21-2022 WBC corrected for nucl RBC Auto (Bld) [#/Vol] 4.3 10*3/uL 3.8-11.6 [facility] Lymphocytes Auto (Bld) [#/Vo l]Ordered By: Sunny Taylor on 07-21-2022 Lymphocytes (Bld) [#/Vol] 1.7 10*3/uL 1.00-4.8 [facility] Lymphocytes/100 WBC Auto (Bl d)Ordered By: Sunny Taylor on 07-21-2022 Lymphocytes/100 WBC (Bld) 39.7 % . [facility] MCH Auto (RBC) [Entitic mass ]Ordered By: Sunny Taylor on 07-21-2022 MCH (RBC) [Entitic mass] 32.1 pg 24.7-34.3 [facility] MCHC Auto (RBC) [Mass/Vol]Or dered By: Sunny Taylor on 07-21-2022 MCHC (RBC) [Mass/Vol] 33.4 g/dL 32.0-35.0 [facility] MCV Auto (RBC) [Entitic vol] Ordered By: Sunny Taylor on 07-21-2022 MCV (RBC) [Entitic vol] 96.1 fL 80-100 [facility] Monocytes Auto (Bld) [#/Vol] Ordered By: Sunny Taylor on 07-21-2022 Monocytes (Bld) [#/Vol] 0.4 10*3/uL 0.0-0.8 [facility] Monocytes/100 WBC Auto (Bld) Ordered By: Sunny Taylor on 07-21-2022 Monocytes/100 WBC (Bld) 9.2 % . [facility] Neutrophils Auto (Bld) [#/Vo l]Ordered By: Sunny Taylor on 07-21-2022 Neutrophils (Bld) [#/Vol] 2.1 10*3/uL 1.8-7.7 [facility] Neutrophils/100 WBC Auto (Bl d)Ordered By: Sunny Taylor on 07-21-2022 Neutrophils/100 WBC (Bld) 48.8 % . [facility] No Panel InformationOrdered By: Sunny Taylor on 07-21-2022 Estimated GFR () > 60 mL/Min [facility] Comment on above: GFR estimated refere nce range: According to KDOQI guidelines, <60 ml/min/1.73m2 is sufficient to diagnose a patient with chronic kidney disease. Pharmacy Creatinine Clearance (Chem N/A [facility] Nucleated erythrocytes [Pres ence] in Blood by Automated countOrdered By: Sunny Taylor on 07-21-2022 Nucleated RBC Auto Ql (Bld) 0.2 /100{WBC} 0-0.5 [facility] Platelet mean volume Auto (B ld) [Entitic vol]Ordered By: Sunny Taylor on 07-21-2022 Platelet mean volume (Bld) [Entitic vol] 8.1 fL 6.3-10.7 [facility] Platelets Auto (Bld) [#/Vol] Ordered By: Sunny Taylor on 07-21-2022 Platelets (Bld) [#/Vol] 196 10*3/uL 150-450 [facility] Protein [Mass/volume] in Ser um or PlasmaOrdered By: Sunny Taylor on 07-21-2022 Protein [Mass/Vol] 6.9 g/dL 6.1-7.9 [facility] RBC Auto (Bld) [#/Vol]Ordere d By: Sunny Taylor on 07-21-2022 RBC (Bld) [#/Vol] 3.90 10*6/uL 3.60-5.00 [facility] Serum or plasma alanine robins otransferase measurement without P-5'-P (enzymatic activiOrdered By: Sunny Taylor on 07-21-2022 ALT No additional P-5'-P [Catalytic activity/Vol] 26 U/L 10-60 [facility] Serum or plasma albumin/glob ulin mass ratioOrdered By: Sunny Taylor on 07-21-2022 Albumin/Globulin [Mass ratio] 0.6 {ratio} [facility] Serum or plasma alkaline rolando sphatase measurement (enzymatic activity/volume)Ordered By: Sunny Taylor on 07-21-2022 ALP [Catalytic activity/Vol] 65 U/L 32-92 [facility] Serum or plasma anion gap de terminationOrdered By: Sunny Taylor on 07-21-2022 Anion gap [Moles/Vol] 9.3 mmol/L 6.0-15.0 [facility] Serum or plasma aspartate am inotransferase measurement (enzymatic activity/volume)Ordered By: Sunny Taylor on 07-21-2022 AST [Catalytic activity/Vol] 49 U/L 10-42 [facility] Serum or plasma calcium saray urement (mass/volume)Ordered By: Sunny Taylor on 07-21-2022 Calcium [Mass/Vol] 8.2 mg/dL 8.2-10.2 [facility] Serum or plasma chloride van surement (moles/volume)Ordered By: Sunny Taylor on 07-21-2022 Chloride [Moles/Vol] 100 mmol/L 95-114 [facility] Serum or plasma glucose saray urement (mass/volume)Ordered By: Sunny Taylor on 07-21-2022 Glucose [Mass/Vol] 77 mg/dL 70-100 [facility] Comment on above: ADA recommended refe rence rangeRandom Glucose Reference Range is dependent on time and content of last meal. Glucose of more than 200 mg/dL in a nonstressed, ambulatory subject supports the diagnosis of Diabetes Mellitus. Serum or plasma potassium me asurement (moles/volume)Ordered By: Sunny Taylor on 07-21-2022 Potassium [Moles/Vol] 4.9 mmol/L 3.5-5.1 [facility] Serum or plasma sodium measu rement (moles/volume)Ordered By: Sunny Taylor on 07-21-2022 Sodium [Moles/Vol] 131 mmol/L 136-146 [facility] Serum or plasma total biliru bin measurement (mass/volume)Ordered By: Sunny Taylor on 07-21-2022 Bilirubin [Mass/Vol] 0.7 mg/dL 0.3-1.2 [facility] Serum or plasma total carbon dioxide measurement (moles/volume)Ordered By: Sunny Taylor on 07-21-2022 CO2 [Moles/Vol] 26.6 mmol/L 22.0-30.0 [facility] Serum or plasma urea nitroge n measurement (mass/volume)Ordered By: Sunny Taylor on 07-21-2022 Urea nitrogen [Mass/Vol] 8 mg/dL 9-23 [facility] WBC Auto (Bld) [#/Vol]Ordere d By: Sunny Taylor on 07-21-2022 WBC (Bld) [#/Vol] 4.3 10*3/uL 3.8-11.6 [facility] CHEMISTRYOrdered By: SYSTEM SYSTEM on 06-09-2022 Folate [Mass/Vol] ng/mL Normal >=6.7ng/mL [facility] Re misol CHEMISTRYOrdered By: SYSTEM SYSTEM on 05-10-2022 Albumin [Mass/Vol] 2.9 g/dL Low 3.3 - 5.0 gm/dL [facility] Remisol Albumin/Globulin [Mass ratio] 0.7 {ratio} Low 1.1 - 2.2 [facility] ALP [Catalytic activity/Vol] 55 [iU]/d Normal 21 - 98 Int._Unit/L [facility] ALT No additional P-5'-P [Catalytic activity/Vol] 24 [iU]/d Normal 6 - 46 Int._Unit/L [facility] Anion gap [Moles/Vol] 8 mmol/L Normal 6 - 16 mEq/L [facility] AST [Catalytic activity/Vol] 37 [iU]/d Normal 5 - 43 Int._Unit/L [facility] Bilirubin [Mass/Vol] 0.9 mg/dL Normal 0.0 - 1 .1 mg/dL [facility] Bilirubin.direct [Mass/Vol] 0.2 mg/dL Normal 0.1 - 0.4 mg/dL [facility] Bilirubin.indirect [Mass or moles/Vol] 0.7 mg/dL Normal 0.1 - 0.9 mg/dL [facility] Calcium [Mass/Vol] 8.4 mg/dL Low 8.9 - 11. 1 mg/dL [facility] Chloride [Moles/Vol] 101 mmol/L Normal 101 - 1 11 mmol/L [facility] Cholesterol [Mass/Vol] 117 mg/dL Low 120 - 200 mg/dL [facility] Cholesterol in HDL [Mass/Vol] 36 mg/dL Invalid Interpretation Code [facility] Cholesterol in LDL [Mass/Vol] 58 mg/dL Normal <=129mg/dL [facility] Cholesterol in VLDL [Mass/Vol] 17 mg/dL Normal 7 - 40 mg/dL [facility] CO2 [Moles/Vol] 29 mmol/L Normal 21 - 31 mmol/L [facility] Cobalamin (Vitamin B12) [Mass/Vol] 291 pg/mL Normal 50 - 1500 pg/mL [facility] Creatinine [Mass/Vol] 0.7 mg/dL Normal 0.5 - 1.3 mg/dL [facility] GFR/1.73 sq M.predicted among blacks MDRD (S/P/Bld) [Vol rate/Area] mL/min/1.73 m2 Normal >=59mL/min/ 1.73 m2 [facility] Chem S GFR/1.73 sq M.predicted among non-blacks MDRD (S/P/Bld) [Vol rate/Area] mL/min/1.73 m2 Normal >=59mL/min/ 1.73 m2 [facility] S Globulin (S) [Mass/Vol] 4.1 g/dL High 1.4 - 4.0 gm/dL [facility] Glucose [Mass/Vol] 92 mg/dL Normal 55 - 199 mg/dL [facility] Potassium [Moles/Vol] 3.9 mmol/L Normal 3.5 - 5.3 mmol/L [facility] Protein [Mass/Vol] 7.0 g/dL Normal 6.0 - 7.8 gm/dL [facility] Sodium [Moles/Vol] 134 mmol/L Low 135 - 145 mmol/L [facility] Triglyceride [Mass/Vol] 86 mg/dL Normal <=149mg/dL [facility] TSH Qn 2.68 m[IU]/L Normal 0.34 - 5.60 mcIU/mL [facility] Urea nitrogen [Mass/Vol] 9 mg/dL Normal 5 - 21 mg/dL [facility] Urea nitrogen/Creatinine [Mass ratio] 13 mg/mg Normal 10 - 20 [facility] CHEMISTRYOrdered By: Rene leger on 05-10-2022 HbA1c (Bld) [Mass fraction] 5.3 % Normal <=5.9% [facility] HEMATOLOGYOrdered By: SYSTEM SYSTEM on 05-10-2022 Basophils/100 WBC (Bld) 0.3 % Normal 0.0 - 2.0 % [facility] Basophils/Leukocytes Auto (Bld) [Pure # fraction] 0.0 E9/L Normal 0.0 - 0.2 E9/L [facility] Eosinophils/100 WBC (Bld) 3.7 % Normal 0.0 - 8.0 % [facility] Eosinophils/Leukocytes Auto (Bld) [Pure # fraction] 0.2 E9/L Normal 0.0 - 0.5 E9/L [facility] Lymphocytes/100 WBC (Bld) 34.8 % Normal 14.0 - 50.0 % [facility] Lymphocytes/Leukocytes Auto (Bld) [Pure # fraction] 1.4 E9/L Normal 1.0 - 4.0 E9/L [facility] Monocytes/100 WBC (Bld) 7.7 % Normal 4.0 - 14.0 % [facility] Monocytes/Leukocytes Auto (Bld) [Pure # fraction] 0.3 E9/L Normal 0.2 - 1.0 E9/L [facility] Neutrophils/100 WBC (Bld) 53.5 % Normal 36.0 - 75.0 % [facility] Neutrophils/Leukocytes Auto (Bld) [Pure # fraction] 2.2 E9/L Normal 2.0 - 7.5 E9/L [facility] HEMATOLOGYOrdered By: Lizet Cason on 05-10-2022 Erythrocyte distribution width (RBC) [Ratio] 12.7 % Normal 10.9 - 14.2 % [facility] Hematocrit (Bld) [Volume fraction] 36.2 % Normal 34.0 - 46.0 % [facility] Hemoglobin (Bld) [Mass/Vol] 12.2 g/dL Normal 12.0 - 16.0 gm/dL [facility] MCH (RBC) [Entitic mass] 32.7 pg Normal 27.0 - 34.0 pg [facility] MCHC (RBC) [Mass/Vol] 33.8 g/dL Normal 31.4 - 36.0 gm/dL [facility] MCV (RBC) [Entitic vol] 96.7 fL Normal 80.0 - 100.0 fL [facility] Platelet mean volume (Bld) [Entitic vol] 7.9 fL Normal 6.4 - 10.8 fL [facility] Platelets (Bld) [#/Vol] 167.0 E9/L Normal 150. 0 - 500.0 E9/L [facility] RBC (Bld) [#/Vol] 3.7 E12/L Low 4.3 - 5.9 E12/L [facility] Sed Rate Automated 46 mm/h High 0 - 34 mm/hr [facility] WBC corrected for nucl RBC Auto (Bld) [#/Vol] 4.1 E9/L Normal 4.0 - 11.0 E9/L [facility] Reference Laboratory Testing Ordered By: Generated DomainUser on 05-10-2022 Cortisol [Mass/Vol] 12.9 ug/dL Invalid Interpretation Code [facility] Comment on above: Result Comment: Liang isol AM 6.2 - 19.4 Cortisol PM 2.3 - 11.9 Performed at: [facility] [address] [id number] PhD Santos Villareal CHEMISTRYOrdered By: SYSTEM SYSTEM on 05-09-2022 Troponin I.cardiac [Mass/Vol] 9.20 pg/mL Low 10.10 - 27.10 pg/mL [facility] Albumin [Mass/Vol] 2.9 g/dL Low 3.3 - 5.0 gm/dL [facility] Albumin/Globulin [Mass ratio] 0.7 {ratio} Low 1.1 - 2.2 [facility] ALP [Catalytic activity/Vol] 62 [iU]/d Normal 21 - 98 Int._Unit/L [facility] ALT No additional P-5'-P [Catalytic activity/Vol] 23 [iU]/d Normal 6 - 46 Int._Unit/L [facility] Anion gap [Moles/Vol] 11 mmol/L Normal 6 - 16 mEq/L [facility] AST [Catalytic activity/Vol] 38 [iU]/d Normal 5 - 43 Int._Unit/L [facility] Bilirubin [Mass/Vol] 0.8 mg/dL Normal 0.0 - 1 .1 mg/dL [facility] Bilirubin.direct [Mass/Vol] 0.2 mg/dL Normal 0.1 - 0.4 mg/dL [facility] Bilirubin.indirect [Mass or moles/Vol] 0.6 mg/dL Normal 0.1 - 0.9 mg/dL [facility] Calcium [Mass/Vol] 8.3 mg/dL Low 8.9 - 11. 1 mg/dL [facility] Chloride [Moles/Vol] 97 mmol/L Low 101 - 1 11 mmol/L [facility] CO2 [Moles/Vol] 25 mmol/L Normal 21 - 31 mmol/L [facility] Creatinine [Mass/Vol] 0.7 mg/dL Normal 0.5 - 1.3 mg/dL [facility] Ethanol [Mass/Vol] mg/dL Normal <=7mg/dL [facility] R emisol GFR/1.73 sq M.predicted among blacks MDRD (S/P/Bld) [Vol rate/Area] mL/min/1.73 m2 Normal >=59mL/min/ 1.73 m2 [facility] Chem S GFR/1.73 sq M.predicted among non-blacks MDRD (S/P/Bld) [Vol rate/Area] mL/min/1.73 m2 Normal >=59mL/min/ 1.73 m2 [facility] Chem S Globulin (S) [Mass/Vol] 4.4 g/dL High 1.4 - 4.0 gm/dL [facility] Remisol Glucose [Mass/Vol] 94 mg/dL Normal 55 - 199 mg/dL [facility] Remisol Potassium [Moles/Vol] 4.2 mmol/L Normal 3.5 - 5.3 mmol/L [facility] Protein [Mass/Vol] 7.3 g/dL Normal 6.0 - 7.8 gm/dL [facility] Sodium [Moles/Vol] 129 mmol/L Low 135 - 145 mmol/L [facility] Remisol Troponin I.cardiac [Mass/Vol] 9.00 pg/mL Low 10.10 - 27.10 pg/mL [facility] Remisol Urea nitrogen [Mass/Vol] 10 mg/dL Normal 5 - 21 mg/dL [facility] Remisol Urea nitrogen/Creatinine [Mass ratio] 14 mg/mg Normal 10 - 20 [facility] Remisol CHEMISTRYOrdered By: Karan cuenca on 05-09-2022 Natriuretic peptide B (Bld) [Mass/Vol] 87 pg/mL High 5 - 80 pg/mL [facility] COAGULATIONOrdered By: Martha Panda on 05-09-2022 aPTT Coag (PPP) [Time] 33.1 s Normal 25.1 - 36.5 second(s) [facility] Auto Coag INR Coag (PPP) [Relative time] 1.1 {INR} Invalid Interpretation Code [facility] Auto Coag PT Coag (PPP) [Time] 12.6 s High 9.4 - 1 2.5 second(s) [facility] Auto Coag HEMATOLOGYOrdered By: SYSTEM SYSTEM on 05-09-2022 Basophils/100 WBC (Bld) 0.5 % Normal 0.0 - 2.0 % [facility] Basophils/Leukocytes Auto (Bld) [Pure # fraction] 0.0 E9/L Normal 0.0 - 0.2 E9/L [facility] Eosinophils/100 WBC (Bld) 3.5 % Normal 0.0 - 8.0 % [facility] Eosinophils/Leukocytes Auto (Bld) [Pure # fraction] 0.2 E9/L Normal 0.0 - 0.5 E9/L [facility] Lymphocytes/100 WBC (Bld) 37.7 % Normal 14.0 - 50.0 % [facility] Lymphocytes/Leukocytes Auto (Bld) [Pure # fraction] 1.8 E9/L Normal 1.0 - 4.0 E9/L [facility] Monocytes/100 WBC (Bld) 7.4 % Normal 4.0 - 14.0 % [facility] Monocytes/Leukocytes Auto (Bld) [Pure # fraction] 0.3 E9/L Normal 0.2 - 1.0 E9/L [facility] Neutrophils/100 WBC (Bld) 50.9 % Normal 36.0 - 75.0 % [facility] Neutrophils/Leukocytes Auto (Bld) [Pure # fraction] 2.4 E9/L Normal 2.0 - 7.5 E9/L [facility] HEMATOLOGYOrdered By: Karan Ham on 05-09-2022 Erythrocyte distribution width (RBC) [Ratio] 13.0 % Normal 10.9 - 14.2 % [facility] Hematocrit (Bld) [Volume fraction] 37.0 % Normal 34.0 - 46.0 % [facility] Hemoglobin (Bld) [Mass/Vol] 12.2 g/dL Normal 12.0 - 16.0 gm/dL [facility] MCH (RBC) [Entitic mass] 32.0 pg Normal 27.0 - 34.0 pg [facility] MCHC (RBC) [Mass/Vol] 33.1 g/dL Normal 31.4 - 36.0 gm/dL [facility] MCV (RBC) [Entitic vol] 96.7 fL Normal 80.0 - 100.0 fL [facility] Platelet mean volume (Bld) [Entitic vol] 7.7 fL Normal 6.4 - 10.8 fL [facility] Platelets (Bld) [#/Vol] 168.0 E9/L Normal 150. 0 - 500.0 E9/L [facility] RBC (Bld) [#/Vol] 3.8 E12/L Low 4.3 - 5.9 E12/L [facility] WBC corrected for nucl RBC Auto (Bld) [#/Vol] 4.7 E9/L Normal 4.0 - 11.0 E9/L [facility] URINALYSISOrdered By: Karan Ham on 05-09-2022 Bilirubin Ql (U) Negative (05/09/22 10:28 PM) Normal Negative [facility] UA Auto SS Clarity (U) Clear (05/09/22 10:28 PM) Normal Clear [facility] UA Auto SS Color (U) Yellow (05/09/22 10:28 PM) Normal Yellow [facility] UA Auto SS Epithelial cells.squamous LM.HPF (Urine sed) [#/Area] 0-2 /HPF Normal 0-2/HPF [facility] UA Aut o SS Glucose Test strip (U) [Mass/Vol] Negative (05/09/22 10:28 PM) Normal Negative [facility] UA Auto SS Hemoglobin Ql (U) Negative (05/09/22 10:28 PM) Normal Negative [facility] UA Auto SS Ketones (U) [Mass/Vol] Negative (05/09/22 10:28 PM) Normal Negative [facility] UA Auto SS [place].plasma/[place]. RBC (Bld) [Mass ratio] 0-3 /HPF Normal 0-3/HPF [facility] UA A uto SS Nitrite Ql (U) Negative (05/09/22 10:28 PM) Normal Negative [facility] UA Auto SS pH (U) 7.0 *NA* (05/09/22 10:28 PM) Invalid Interpretation Code 5.0 - 9.0 [facility] UA Auto SS Protein (U) [Mass/Vol] Negative (05/09/22 10:28 PM) Normal Negative [facility] UA Auto SS Specific gravity (U) [Rel density] 1.010 *NA* (05/09/22 10:28 PM) Invalid Interpretation Code 1.005 - 1.030 [facility] UA Auto SS UA Spec Desc Clean Catch (05/09/22 10:28 PM) Normal [facility] UA Auto SS Urobilinogen Qn (U) [id number] {[place]'U}/dL Normal 0.0 - 1.0 EU/dL [facility] UA Auto SS WBC Auto Ql (U) Negative (05/09/22 10:28 PM) Normal Negative [facility] UA Auto SS WBC LM.HPF (Urine sed) [#/Area] 0-5 /HPF Normal 0-5/HPF [facility] UA Auto SS BLOOD BANKOrdered By: Iwona Verma on 12-13-2021 ABO/Rh Retype Interp Positive Invalid Interpretation Code [facility] BB Subsection CHEMISTRYOrdered By: SYSTEM SYSTEM on 12-13-2021 Anion gap [Moles/Vol] 11 mmol/L Normal 6 - 16 mEq/L [facility] Remisol Calcium [Mass/Vol] 8.4 mg/dL Low 8.9 - 11. 1 mg/dL [facility] Chloride [Moles/Vol] 99 mmol/L Low 101 - 1 11 mmol/L [facility] CO2 [Moles/Vol] 27 mmol/L Normal 21 - 31 mmol/L [facility] Creatinine [Mass/Vol] 0.6 mg/dL Normal 0.5 - 1.3 mg/dL [facility] GFR/1.73 sq M.predicted among blacks MDRD (S/P/Bld) [Vol rate/Area] mL/min/1.73 m2 Normal >=59mL/min/ 1.73 m2 [facility] S GFR/1.73 sq M.predicted among non-blacks MDRD (S/P/Bld) [Vol rate/Area] mL/min/1.73 m2 Normal >=59mL/min/ 1.73 m2 [facility] Chem S Glucose [Mass/Vol] 97 mg/dL Normal 55 - 199 mg/dL [facility] Rem[facility] Magnesium [Mass/Vol] 1.8 mg/dL Normal 1.3 - 2 .4 mg/dL [facility] Potassium [Moles/Vol] 4.2 mmol/L Normal 3.5 - 5.3 mmol/L [facility] Sodium [Moles/Vol] 133 mmol/L Low 135 - 145 mmol/L [facility] Urea nitrogen [Mass/Vol] 10 mg/dL Normal 5 - 21 mg/dL [facility] Urea nitrogen/Creatinine [Mass ratio] 17 mg/mg Normal 10 - 20 [facility] Amphetamines Screen method >1000 ng/mL Ql (U) Negative (12/13/21 12:10 AM) Normal Negative [facility] Barbiturates Screen Ql (U) Negative (12/13/21 12:10 AM) Normal Negative [facility] Benzodiazepines Ql (U) Negative (12/13/21 12:10 AM) Normal Negative [facility] Cocaine Ql (U) Negative (12/13/21 12:10 AM) Normal Negative [facility] Opiates Screen Ql (U) Negative (12/13/21 12:10 AM) Normal Negative [facility] Phencyclidine Screen method >25 ng/mL Ql (U) Negative (12/13/21 12:10 AM) Normal Negative [facility] Tetrahydrocannabinol Screen method >50 ng/mL Ql (U) Negative (12/13/21 12:10 AM) Normal Negative [facility] URINALYSISOrdered By: Kimberly cordoba on 12-13-2021 Bilirubin Ql (U) Negative (12/13/21 12:05 AM) Normal Negative [facility] UA Auto SS Clarity (U) Clear (12/13/21 12:05 AM) Normal Clear [facility] UA Auto SS Color (U) STRAW Invalid Interpretation Code [facility] UA Auto SS Epithelial cells.squamous LM.HPF (Urine sed) [#/Area] 0-2 /HPF Normal 0-2/HPF [facility] UA Aut o SS Glucose Test strip (U) [Mass/Vol] Negative (12/13/21 12:05 AM) Normal Negative [facility] UA Auto SS Hemoglobin Ql (U) Negative (12/13/21 12:05 AM) Normal Negative [facility] UA Auto SS Ketones (U) [Mass/Vol] Negative (12/13/21 12:05 AM) Normal Negative [facility] UA Auto SS [place].plasma/[place]. RBC (Bld) [Mass ratio] 0-3 /HPF Normal 0-3/HPF [facility] A uto SS Nitrite Ql (U) Negative (12/13/21 12:05 AM) Normal Negative [facility] UA Auto SS pH (U) 6.0 *NA* (12/13/21 12:05 AM) Invalid Interpretation Code 5.0 - 9.0 [facility]A Auto SS Protein (U) [Mass/Vol] Negative (12/13/21 12:05 AM) Normal Negative [facility] UA Auto SS Specific gravity (U) [Rel density] <=1.005 *NA* (12/13/21 12:05 AM) Invalid Interpretation Code 1.005 - 1.030 [facility] UA Auto SS UA Spec Desc Random Urine (12/13/21 12:05 AM) Normal [facility] [place] UA Auto SS Urobilinogen Qn (U) 0.5243502 {[place]'U}/dL Normal 0.0 - 1.0 EU/dL [facility] UA Auto SS WBC Auto Ql (U) Negative (12/13/21 12:05 AM) Normal Negative [facility] UA Auto SS WBC LM.HPF (Urine sed) [#/Area] 0-5 /HPF Normal 0-5/HPF [facility] UA Auto SS BLOOD BANKOrdered By: Kimberly cordoba on 12-12-2021 ABO/Rh Interp Positive Invalid Interpretation Code [facility] [place] BB Subsection ABSC Gel Interp Negative (12/12/21 10:41 PM) Normal [facility] [place] BB Subsection CHEMISTRYOrdered By: SYSTEM SYSTEM on 12-12-2021 Albumin [Mass/Vol] 3.3 g/dL Normal 3.3 - 5.0 gm/dL [facility] Remisol Albumin/Globulin [Mass ratio] 0.7 {ratio} Low 1.1 - 2.2 [facility] Remisol ALP [Catalytic activity/Vol] 77 [iU]/d Normal 21 - 98 Int._Unit/L [facility] Remisol ALT No additional P-5'-P [Catalytic activity/Vol] 29 [iU]/d Normal 6 - 46 Int._Unit/L [facility] Remisol Anion gap [Moles/Vol] 13 mmol/L Normal 6 - 16 mEq/L [facility] Remisol AST [Catalytic activity/Vol] 48 [iU]/d High 5 - 43 Int._Unit/L [facility] Remisol Bilirubin [Mass/Vol] 0.8 mg/dL Normal 0.0 - 1 .1 mg/dL [facility] Remisol Bilirubin.direct [Mass/Vol] 0.2 mg/dL Normal 0.1 - 0.4 mg/dL [facility] Bilirubin.indirect [Mass or moles/Vol] 0.6 mg/dL Normal 0.1 - 0.9 mg/dL [facility] Calcium [Mass/Vol] 8.4 mg/dL Low 8.9 - 11. 1 mg/dL [facility] Chloride [Moles/Vol] 95 mmol/L Low 101 - 1 11 mmol/L [facility] CO2 [Moles/Vol] 25 mmol/L Normal 21 - 31 mmol/L [facility] Creatinine [Mass/Vol] 0.6 mg/dL Normal 0.5 - 1.3 mg/dL [facility] Ethanol [Mass/Vol] 161 mg/dL Invalid Interpretation Code <=7mg/dL [facility] Comment on above: Result Comment: Crit ical Result S_ETOH:161.[address] COULTER AT by STEVEN GARAY And Read Back For Confirmation at: 12/12/2021 23:27:36 GFR/1.73 sq M.predicted among blacks MDRD (S/P/Bld) [Vol rate/Area] mL/min/1.73 m2 Normal >=59mL/min/ 1.73 m2 [facility] Chem S GFR/1.73 sq M.predicted among non-blacks MDRD (S/P/Bld) [Vol rate/Area] mL/min/1.73 m2 Normal >=59mL/min/ 1.73 m2 [facility] S Globulin (S) [Mass/Vol] 4.6 g/dL High 1.4 - 4.0 gm/dL [facility] Glucose [Mass/Vol] 91 mg/dL Normal 55 - 199 mg/dL [facility] Lactate [Mass/Vol] 1.8 mmol/L Normal 0.5 - 2.2 mmol/L [facility] Lipase [Catalytic activity/Vol] 60 U/L High 13 - 58 unit/L [facility] Magnesium [Mass/Vol] 1.7 mg/dL Normal 1.3 - 2 .4 mg/dL [facility] Potassium [Moles/Vol] 3.6 mmol/L Normal 3.5 - 5.3 mmol/L [facility] Protein [Mass/Vol] 7.9 g/dL High 6.0 - 7.8 gm/dL [facility] Sodium [Moles/Vol] 129 mmol/L Low 135 - 145 mmol/L [facility] Troponin I.cardiac [Mass/Vol] 6.80 pg/mL Low 10.10 - 27.10 pg/mL [facility] Urea nitrogen [Mass/Vol] 11 mg/dL Normal 5 - 21 mg/dL [facility] Urea nitrogen/Creatinine [Mass ratio] 18 mg/mg Normal 10 - 20 [facility] COAGULATIONOrdered By: Kimberly Graay on 12-12-2021 aPTT Coag (PPP) [Time] 33.0 s Normal 25.1 - 36.5 second(s) [facility] INR Coag (PPP) [Relative time] 1.0 {INR} Invalid Interpretation Code [facility] PT Coag (PPP) [Time] 11.9 s Normal 10.2 - 12.9 second(s) [facility]ag HEMATOLOGYOrdered By: SYSTEM SYSTEM on 12-12-2021 Basophils/100 WBC (Bld) 1.0 % Normal 0.0 - 2.0 % [facility] Basophils/Leukocytes Auto (Bld) [Pure # fraction] 0.0 E9/L Normal 0.0 - 0.2 E9/L [facility] Eosinophils/100 WBC (Bld) 4.6 % Normal 0.0 - 8.0 % [facility] Eosinophils/Leukocytes Auto (Bld) [Pure # fraction] 0.2 E9/L Normal 0.0 - 0.5 E9/L [facility] Lymphocytes/100 WBC (Bld) 39.1 % Normal 14.0 - 50.0 % [facility] Lymphocytes/Leukocytes Auto (Bld) [Pure # fraction] 1.9 E9/L Normal 1.0 - 4.0 E9/L [facility] Monocytes/100 WBC (Bld) 9.4 % Normal 4.0 - 14.0 % [facility] Monocytes/Leukocytes Auto (Bld) [Pure # fraction] 0.5 E9/L Normal 0.2 - 1.0 E9/L [facility] Neutrophils/100 WBC (Bld) 45.9 % Normal 36.0 - 75.0 % [facility] Neutrophils/Leukocytes Auto (Bld) [Pure # fraction] 2.2 E9/L Normal 2.0 - 7.5 E9/L [facility] HEMATOLOGYOrdered By: Kimberly cordoba on 12-12-2021 Erythrocyte distribution width (RBC) [Ratio] 12.9 % Normal 10.9 - 14.2 % [facility] Hematocrit (Bld) [Volume fraction] 38.7 % Normal 34.0 - 46.0 % [facility] Hemoglobin (Bld) [Mass/Vol] 13.4 g/dL Normal 12.0 - 16.0 gm/dL [facility] MCH (RBC) [Entitic mass] 33.7 pg Normal 27.0 - 34.0 pg [facility] MCHC (RBC) [Mass/Vol] 34.7 g/dL Normal 31.4 - 36.0 gm/dL [facility] MCV (RBC) [Entitic vol] 96.9 fL Normal 80.0 - 100.0 fL [facility] Platelet mean volume (Bld) [Entitic vol] 7.5 fL Normal 6.4 - 10.8 fL [facility] Platelets (Bld) [#/Vol] 170.0 E9/L Normal 150. 0 - 500.0 E9/L [facility] RBC (Bld) [#/Vol] 4.0 E12/L Low 4.3 - 5.9 E12/L [facility] WBC corrected for nucl RBC Auto (Bld) [#/Vol] 4.9 E9/L Normal 4.0 - 11.0 E9/L [facility] Basophils Auto (Bld) [#/Vol] Ordered By: Sunny Taylor on 12-09-2021 Basophils (Bld) [#/Vol] 0.1 10*3/uL 0.0-0.2 [facility] Basophils/100 WBC Auto (Bld) Ordered By: Sunny Taylor on 12-09-2021 Basophils/100 WBC (Bld) 2.5 % [facility] Blood hemoglobin measurement (mass/volume)Ordered By: Sunny Taylor on 12-09-2021 Hemoglobin (Bld) [Mass/Vol] 12.9 g/dL 11.8-15.4 [facility] Blood leukocytes automated c ount (number/volume)Ordered By: Sunny Taylor on 12-09-2021 WBC (Bld) [#/Vol] 3.9 10*3/uL 4.5-11.0 [facility] Body fluid albumin measureme nt (mass/volume)Ordered By: Sunny Taylor on 12-09-2021 Albumin (Body fld) [Mass/Vol] 2.7 g/dL 3.2-5.5 [facility] Creatinine and Glomerular fi ltration rate.predicted panel (S/P/Bld)Ordered By: Sunny Taylor on 12-09-2021 Creatinine [Mass/Vol] 0.63 mg/dL 0.44-1.03 [facility] Eosinophils Auto (Bld) [#/Vo l]Ordered By: Sunny Taylor on 12-09-2021 Eosinophils (Bld) [#/Vol] 0.2 10*3/uL 0.0-0.45 [facility] Eosinophils/100 WBC Auto (Bl d)Ordered By: Sunny Taylor on 12-09-2021 Eosinophils/100 WBC (Bld) 4.3 % [facility] Erythrocyte distribution wid th Auto (RBC) [Ratio]Ordered By: Sunny Taylor on 12-09-2021 Erythrocyte distribution width (RBC) [Ratio] 12.7 % 11.9-15.3 [facility] Estimated glomerular filtrat ion rate (GFR) non- AmericanOrdered By: Sunny Taylor on 12-09-2021 GFR/1.73 sq M.predicted among non-blacks MDRD (S/P/Bld) [Vol rate/Area] > 60 mL/Min [facility] Globulin Calc (S) [Mass/Vol] Ordered By: Sunny Taylor on 12-09-2021 Globulin (S) [Mass/Vol] 4.5 g/dL [facility] Hematocrit Auto (Bld) [Volum e fraction]Ordered By: Sunny Taylor on 12-09-2021 Hematocrit (Bld) [Volume fraction] 37.1 % 34.0-46.4 [facility] Laboratory - Hematology and Cell countsOrdered By: Sunny Taylor on 12-09-2021 Nucleated RBC/100 WBC (Bld) [Ratio] 0.3 % 0-0.5 [facility] Lymphocytes Auto (Bld) [#/Vo l]Ordered By: Sunny Taylor on 12-09-2021 Lymphocytes (Bld) [#/Vol] 1.2 10*3/uL 1.00-4.8 [facility] Lymphocytes/100 WBC Auto (Bl d)Ordered By: Sunny Taylor on 12-09-2021 Lymphocytes/100 WBC (Bld) 31.4 % [facility] MCH Auto (RBC) [Entitic mass ]Ordered By: Sunny Taylor on 12-09-2021 MCH (RBC) [Entitic mass] 34.2 pg 24.7-34.3 [facility] MCHC Auto (RBC) [Mass/Vol]Or dered By: Sunny Taylor on 12-09-2021 MCHC (RBC) [Mass/Vol] 34.7 g/dL 32.0-35.0 [facility] MCV Auto (RBC) [Entitic vol] Ordered By: Sunny Taylor on 12-09-2021 MCV (RBC) [Entitic vol] 98.5 fL 80-100 [facility] Monocytes Auto (Bld) [#/Vol] Ordered By: Sunny Taylor on 12-09-2021 Monocytes (Bld) [#/Vol] 0.3 10*3/uL 0.0-0.8 [facility] Monocytes/100 WBC Auto (Bld) Ordered By: Sunny Taylor on 12-09-2021 Monocytes/100 WBC (Bld) 8.4 % [facility] Neutrophils Auto (Bld) [#/Vo l]Ordered By: Sunny Taylor on 12-09-2021 Neutrophils (Bld) [#/Vol] 2.1 10*3/uL 1.8-7.7 [facility] Neutrophils/100 WBC Auto (Bl d)Ordered By: Sunny Taylor on 12-09-2021 Neutrophils/100 WBC (Bld) 53.4 % [facility] No Panel InformationOrdered By: Sunny Taylor on 12-09-2021 Estimated GFR () > 60 mL/Min [facility] Comment on above: GFR estimated refere nce range: According to KDOQI guidelines, <60 ml/min/1.73m2 is sufficient to diagnose a patient with chronic kidney disease. Pharmacy Creatinine Clearance (Chem N/A [facility] Platelet mean volume Auto (B ld) [Entitic vol]Ordered By: Sunny Taylor on 12-09-2021 Platelet mean volume (Bld) [Entitic vol] 8.9 fL 6.3-10.7 [facility] Platelets Auto (Bld) [#/Vol] Ordered By: Sunny Taylor on 12-09-2021 Platelets (Bld) [#/Vol] 174 10*3/uL 150-450 [facility] Protein [Mass/volume] in Ser um or PlasmaOrdered By: Sunny Taylor on 12-09-2021 Protein [Mass/Vol] 7.2 g/dL 6.1-7.9 [facility] RBC Auto (Bld) [#/Vol]Ordere d By: Sunny Taylor on 12-09-2021 RBC (Bld) [#/Vol] 3.76 10*6/uL 3.60-5.00 [facility] Serum or plasma alanine robins otransferase measurement without P-5'-P (enzymatic activiOrdered By: Sunny Taylor on 12-09-2021 ALT No additional P-5'-P [Catalytic activity/Vol] 24 U/L 10-60 [facility] Serum or plasma albumin/glob ulin mass ratioOrdered By: Sunny Taylor on 12-09-2021 Albumin/Globulin [Mass ratio] 0.6 {ratio} [facility] Serum or plasma alkaline rolando sphatase measurement (enzymatic activity/volume)Ordered By: Sunny Taylor on 12-09-2021 ALP [Catalytic activity/Vol] 71 U/L 32-92 [facility] Serum or plasma aspartate am inotransferase measurement (enzymatic activity/volume)Ordered By: Sunny Taylor on 12-09-2021 AST [Catalytic activity/Vol] 41 U/L 10-42 [facility] Serum or plasma calcium saray urement (mass/volume)Ordered By: Sunny Taylor on 12-09-2021 Calcium [Mass/Vol] 8.5 mg/dL 8.2-10.2 [facility] Serum or plasma chloride van surement (moles/volume)Ordered By: Sunny Taylor on 12-09-2021 Chloride [Moles/Vol] 102 mmol/L 95-114 [facility] Serum or plasma glucose saray urement (mass/volume)Ordered By: Sunny Taylor on 12-09-2021 Glucose [Mass/Vol] 99 mg/dL 70-100 [facility] Comment on above: ADA recommended refe rence rangeRandom Glucose Reference Range is dependent on time and content of last meal. Glucose of more than 200 mg/dL in a nonstressed, ambulatory subject supports the diagnosis of Diabetes Mellitus. ADA recommended refe rence range Random Glucose Reference Range is dependent on time and content of last meal. Glucose of more than 200 mg/dL in a nonstressed, ambulatory subject supports the diagnosis of Diabetes Mellitus. Serum or plasma potassium me asurement (moles/volume)Ordered By: Sunny Taylor on 12-09-2021 Potassium [Moles/Vol] 4.2 mmol/L 3.5-5.1 [facility] Serum or plasma sodium measu rement (moles/volume)Ordered By: Sunny Taylor on 12-09-2021 Sodium [Moles/Vol] 134 mmol/L 136-146 [facility] Serum or plasma total biliru bin measurement (mass/volume)Ordered By: Sunny Taylor on 12-09-2021 Bilirubin [Mass/Vol] 0.8 mg/dL 0.3-1.2 [facility] Serum or plasma total carbon dioxide measurement (moles/volume)Ordered By: Sunny Taylor on 12-09-2021 CO2 [Moles/Vol] 24.5 mmol/L 22.0-30.0 [facility] Serum or plasma urea nitroge n measurement (mass/volume)Ordered By: Sunny Taylor on 12-09-2021 Urea nitrogen [Mass/Vol] 9 mg/dL 04-30 [facility] Complete Blood Counton 07-15 Erythrocyte distribution width (RBC) [Ratio] 12.6 % Normal 11.0-15.0 [facility] Specialist Comment on above: Performed By: #### C BC #### [facility] [address] [place], [place] [id number] Hematocrit (Bld) [Volume fraction] 42.2 % Normal 35.0-47.0 [facility] Specialist Comment on above: Performed By: #### C BC #### [facility] [address], [place] [id number] Hemoglobin (Bld) [Mass/Vol] 13.2 g/dL Normal 11.6-15.5 [facility] Specialist Comment on above: Performed By: #### C BC #### [facility] [address], [place] [id number] MCH (RBC) [Entitic mass] 34.5 pg High 27.0-33.0 [facility] Specialist Comment on above: Performed By: #### C BC #### [facility] [address], [place] [id number] MCHC (RBC) [Mass/Vol] 31.3 g/dL Low 32.0-36.0 [facility] Specialist Comment on above: Performed By: #### C BC #### [facility] [address], [place] [id number] MCV (RBC) [Entitic vol] 110 fL High 80-100 N [facility] Specialist Comment on above: Performed By: #### C BC #### [facility] [address], [place] [id number] Platelet mean volume (Bld) [Entitic vol] 9.90 fL Normal 7.50-12.50 [facility] Specialist Comment on above: Performed By: #### C BC #### [facility] [address], [place] [id number] Platelets (Bld) [#/Vol] 227 10*3/uL Normal 140-400 [facility] Comment on above: Performed By: #### C BC #### [facility] [address], [place] [id number] RBC (Bld) [#/Vol] 3.83 10*6/uL Low 3.90-5.20 [facility] Comment on above: Performed By: #### C BC #### [facility] [address], [place] [id number] RDW-SD 50.3 fL High 37.0-50.0 [facility] Comment on above: Performed By: #### C BC #### [facility] [address], [place] [id number] WBC (Bld) [#/Vol] 5.7 10*3/uL Normal 3.8-11.0 [facility] Comment on above: Performed By: #### C BC #### [facility] [address], [place] [id number] Q - LAUREN SCREEN IFA W/RFL TIT ER IFAon 07-10-2021 LAUREN SCREEN, IFA Positive Abnormal NEGATIVE [facility] Comment on above: Order Comment: [facility] performed at: [id number], [employer] [facility], [address] [place] [address], [address] [place] [address], [phone], Community Leader: Donavan Moser MD [facility] Date/Time: [facility] Results Received Date/Time: [facility] Reported Date/Time: FASTING: NO Result Comment: LAUREN IFA is a first line screen for detecting the presence of up to approximately 150 autoantibodies in various autoimmune diseases. A positive LAUREN IFA result is suggestive of autoimmune disease and reflexes to titer and pattern. Further laboratory testing may be considered if clinically indicated. For additional information, please refer to http://education.Yooli/faq/DQV200 (This link is being provided for informational/ educational purposes only.) Performed By: #### 1 0231A, ESR, %79665, TSH, 249X #### [facility] [address] [place] [address] Q - LAUREN TITER/PATTERNon 12-0 LAUREN PATTERN Nuclear, Homogeneous Abnormal [facility] Comment on above: Order Comment: [facility] performed at: [employer], [employer] [facility], [address], [address] [place], [address], Community Leader: Donavan Moser MD [facility] Date/Time: [facility] Results Received Date/Time: [facility] Reported Date/Time: FASTING: NO Result Comment: Homo geneous pattern is associated with systemic lupus erythematosus (SLE), drug-induced lupus and juvenile idiopathic arthritis. AC-1: Homogeneous International Consensus on LAUREN Patterns (https://doi.org/10.1515/tjvp-8057-1907) Performed By: #### 1 0231A, ESR, %94660, TSH, 249X #### [facility] [address] [place] [address] LAUREN PATTERN Nuclear, Speckled Abnormal [facility] Comment on above: Order Comment: [facility] performed at: [employer], [employer] [facility], [address], [address] [place], [address], Community Leader: Donavan Moser MD [facility] Date/Time: [facility] Results Received Date/Time: [facility] Reported Date/Time: FASTING: NO Result Comment: Spec kled pattern is associated with mixed connective tissue disease (MCTD), systemic lupus erythematosus (SLE), Sjogren's syndrome, dermatomyositis, and systemic sclerosis/polymyositis overlap. AC-2,4,5,29: Speckled International Consensus on LAUREN Patterns (https://doi.org/10.1515/lzpe-9309-3107) Performed By: #### 1 0231A, ESR, %54775, TSH, 249X #### [facility] [address] [place] [place] [address] LAUREN TITER 1:[address] [facility] [employer] Consultant Comment on above: Order Comment: [facility] performed at: [employer], [employer] [facility], [address], [address] [place] [address], [phone], Community Leader: Donavan Moser MD [facility] Date/Time: [facility] Results Received Date/Time: [facility] Reported Date/Time: FASTING: NO Result Comment: A lo w level LAUREN titer may be present in pre-clinical autoimmune diseases and normal individuals. Reference Range <1:40 Negative 1:40-1:80 Low Antibody Level >1:80 Elevated Antibody Level Performed By: #### 1 0231A, ESR, %57247, TSH, 249X #### [facility] [address] [place] [address] LAUREN TITER > OR = 1:[address] [facility] [employer] Consultant Comment on above: Order Comment: [facility] performed at: [employer], [employer] [facility], [address] [facility], [address] [place] [address], [address] [place] [address], Community Leader: Donavan Moser MD [facility] Date/Time: [facility] Results Received Date/Time: [facility] Reported Date/Time: FASTING: NO Result Comment: Refe rence Range <1:40 Negative 1:40-1:80 Low Antibody Level >1:80 Elevated Antibody Level Performed By: #### 1 0231A, ESR, %35362, TSH, 249X #### [facility] [address] [place] [address] Q - COMPREHENSIVE METABOLIC PANEL W/EGFRon 07-10-2021 Albumin [Mass/Vol] 3.4 g/dL Low 3.6-5.1 [facility] [employer] Consultant Comment on above: Order Comment: [facility] performed at: [employer], [employer], [address] , [address] [place] [address], [phone], Community Leader: Donavan Moser MD [facility] Date/Time: [facility] Results Received Date/Time: [facility] Reported Date/Time: FASTING: NO Performed By: #### 1 0231A, ESR, %88817, TSH, 249X #### [facility] [address] [place] [address] Albumin/Globulin [Mass ratio] 0.9 {ratio} Low 1.0-2.5 [facility] Specialist Comment on above: Order Comment: [facility] performed at: [employer], [employer] [facility], [address] [place] [address], [address] [place] [address], [address] [place] [address], Community Leader: Donavan Moser MD [facility] Date/Time: [facility] Results Received Date/Time: [facility] Reported Date/Time: FASTING: NO Performed By: #### 1 0231A, ESR, %31488, TSH, 249X #### [facility] [address] [place] [address] ALP [Catalytic activity/Vol] 76 U/L Normal 37-153 [facility] Specialist Comment on above: Order Comment: [facility] performed at: [employer], [employer] [facility], [address] [place] [address], [address] [place] [address], [address] [place] [address], Community Leader: Donavan Moser MD [facility] Date/Time: [facility] Results Received Date/Time: [facility] Reported Date/Time: FASTING: NO Performed By: #### 1 0231A, ESR, %08780, TSH, 249X #### [facility] [address] [place] [address] ALT [Catalytic activity/Vol] 16 U/L Normal 6-29 [facility] Specialist Comment on above: Order Comment: [facility] performed at: [employer], [facility], [address] [place] [address], [address] [place] [address], [address] [place] [address], Community Leader: Donavan Moser MD [facility] Date/Time: [facility] Results Received Date/Time: [facility] Reported Date/Time: FASTING: NO Performed By: #### 1 0231A, ESR, %17816, TSH, 249X #### [facility] [address] [place] [address] AST [Catalytic activity/Vol] 25 U/L Normal 10-35 [facility] Specialist Comment on above: Order Comment: [facility] performed at: [employer], [facility] [facility], [address] [place] [address], [address] [place] [address], [address] [place] [address], Community Leader: Donavan Moser MD [facility] Date/Time: [facility] Results Received Date/Time: [facility] Reported Date/Time: FASTING: NO Performed By: #### 1 0231A, ESR, %83063, TSH, 249X #### [facility] [address] [place] [address] Bilirubin [Mass/Vol] 0.9 mg/dL Normal 0.2-1.2 [facility] [employer] Consultant Comment on above: Order Comment: [facility] performed at: [employer], [facility], [address] [place] [address], [address] [place] [address], [address] [place] [address], Community Leader: Donavan Moser MD [facility] Date/Time: [facility] Results Received Date/Time: [facility] Reported Date/Time: FASTING: NO Performed By: #### 1 0231A, ESR, %59133, TSH, 249X #### [facility] [address] [place] [address] BUN/CREA 20 NOT APPLICABLE Normal 6-22 [facility] Specialist Comment on above: Order Comment: [facility] performed at: [employer], [employer] [facility], [address] [place] [address], [address] [place] [address], [address] [place] [address], Community Leader: Donavan Moser MD [facility] Date/Time: [facility] Results Received Date/Time: [facility] Reported Date/Time: FASTING: NO Performed By: #### 1 0231A, ESR, %92923, TSH, 249X #### [facility] [address] [place] [address] Calcium [Mass/Vol] 8.5 mg/dL Low 8.6-10.4 [facility] [place] [facility] [employer] Consultant Comment on above: Order Comment: [facility] performed at: [employer], [facility] [facility], [address] [place] [address], [address] [place] [address], [address] [place] [address], Community Leader: Donavan Moser MD [facility] Date/Time: [facility] Results Received Date/Time: [facility] Reported Date/Time: FASTING: NO Performed By: #### 1 0231A, ESR, %10103, TSH, 249X #### [facility] [address] [place] [address] Chloride [Moles/Vol] 99 mmol/L Normal 98-110 [facility] Specialist Comment on above: Order Comment: [facility] performed at: [employer], [employer] [facility], [address] [place] [address], [address] [place] [address], [address] [place] [address], Community Leader: Donavan Moser MD [facility] Date/Time: [facility] Results Received Date/Time: [facility] Reported Date/Time: FASTING: NO Performed By: #### 1 0231A, ESR, %13102, TSH, 249X #### [facility] [address] [place] [address] CO2 [Moles/Vol] 28 mmol/L Normal 20-32 [facility] Comment on above: Order Comment: [facility] performed at: [employer], [employer] [facility], [address] [place] [address], [address] [place] [address], [address] [place] [address], Community Leader: Donavan Moser MD [facility] Date/Time: [facility] Results Received Date/Time: [facility] Reported Date/Time: FASTING: NO Performed By: #### 1 0231A, ESR, %91896, TSH, 249X #### [facility] [address] [place] [address] Creatinine [Mass/Vol] 0.61 mg/dL Normal 0.60-0.93 [facility] Specialist Comment on above: Order Comment: [facility] performed at: [employer], [employer] [facility], [address] [facility], [address] [place] [address], [address] [place] [address], Community Leader: Donavan Moser MD [facility] Date/Time: [facility] Results Received Date/Time: [facility] Reported Date/Time: FASTING: NO Result Comment: For patients >49 years of age, the reference limit for Creatinine is approximately 13% higher for people identified as -Angolan. Performed By: #### 1 0231A, ESR, %22665, TSH, 249X #### [facility] [address] [place] [address] eGFRAA 115 mL/min/1.73m2 Normal > OR = 60 [facility] Comment on above: Order Comment: [facility] performed at: [employer], [employer] [facility], [address] [facility], [address] [place] [address], [address] [place] [address], Community Leader: Donavan Moser MD [facility] Date/Time: [facility] Results Received Date/Time: [facility] Reported Date/Time: FASTING: NO Performed By: #### 1 0231A, ESR, %19745, TSH, 249X #### [facility] [address] [place] [address] eGFRNAA 95 mL/min/1.73m2 Normal > OR = 60 [facility] Comment on above: Order Comment: [facility] performed at: [employer] [facility], [address] , [address] [place] [address], [address] [place] [address], Community Leader: Donavan Moser MD [facility] Date/Time: [facility] Results Received Date/Time: [facility] Reported Date/Time: FASTING: NO Performed By: #### 1 0231A, ESR, %92221, TSH, 249X #### [facility] [address] [place] [address] Globulin (S) [Mass/Vol] 3.8 g/dL High 1.9-3.7 [facility] [place] [employer] Consultant Comment on above: Order Comment: [facility] performed at: [employer], [facility], [address] [place] [address], [address] [place] [address], [address] [place] [address], Community Leader: Donavan Moser MD [facility] Date/Time: [facility] Results Received Date/Time: [facility] Reported Date/Time: FASTING: NO Performed By: #### 1 0231A, ESR, %[id number], TSH, 249X #### [facility] Default [address] [place] [address] Glucose [Mass/Vol] 89 mg/dL Normal 65-139 Jhonny crowley [employer] Consultant Comment on above: Order Comment: [facility] Testing performed at: [employer] [employer] [facility], [address] [place] [address], [address] [place] [address], [address] [place] [address], Community Leader: Donavan Moser MD [facility] Date/Time: [facility] Results Received Date/Time: [facility] Reported Date/Time: FASTING: NO Result Comment: Non-fasting reference interval Performed By: #### 1 0231A, ESR, %[id number], TSH, 249X #### [facility] [address] [place] [address] Potassium [Moles/Vol] 4.3 mmol/L Normal 3.5-5.3 Alec desai [employer] Consultant Comment on above: Order Comment: [facility] Testing performed at: [employer] [employer] [facility], [address] [place] [address], [address] [place] [address], [address] [place] [address], Community Leader: Donavan Moser MD [facility] Date/Time: [facility] Results Received Date/Time: [facility] Reported Date/Time: FASTING: NO Performed By: #### 1 0231A, ESR, %[id number], TSH, 249X #### [facility] [address] [place] [address] Protein [Mass/Vol] 7.2 g/dL Normal 6.1-8.1 Jhonny crowley [employer] Consultant Comment on above: Order Comment: [facility] Testing performed at: [employer] [employer] [facility], [address] [place] [address], [address] [place] [address], [address] [place] [address], Community Leader: Donavan Moser MD [facility] Date/Time: [facility] Results Received Date/Time: [facility] Reported Date/Time: FASTING: NO Performed By: #### 1 0231A, ESR, %[id number], TSH, 249X #### [facility] [address] [place] [address] Sodium [Moles/Vol] 135 mmol/L Normal 135-146 Jhonny crowley [employer] Consultant Comment on above: Order Comment: [facility] performed at: [employer], [employer] [facility], [address] [place] [address], [address] [place] [address], [address] [place] [address], Community Leader: Donavan Moser MD [facility] Date/Time: [facility] Results Received Date/Time: [facility] Reported Date/Time: FASTING: NO Performed By: #### 1 0231A, ESR, %30653, TSH, 249X #### [facility] [address] [place] [address] Urea nitrogen [Mass/Vol] 12 mg/dL Normal 7-25 [facility] Specialist Comment on above: Order Comment: [facility] Testing performed at: [employer], [employer] [facility], [address] [place] [address], [address] [place] [address], [address] [place] [address], Community Leader: Donavan Moser MD [facility] Date/Time: [id number] [facility] Results Received Date/Time: [facility] Reported Date/Time: FASTING: NO Performed By: #### 1 0231A, ESR, %[id number], TSH, 249X #### [facility] [address] [place] [address] RBC Sedimentation Rateon ESR (Bld) [Velocity] 77 mm/h High < OR = 30 [facility] [employer] Consultant Comment on above: Order Comment: [facility] Testing performed at: [facility] [employer] [facility], [address], [address] [place], [address], Community Leader: Donavan Moser MD [facility] Date/Time: [facility] Results Received Date/Time: [facility] Reported Date/Time: FASTING: NO Performed By: #### 1 0231A, ESR, %45086, TSH, 249X #### [facility] [address] [place] [address] TSHon 07-10-2021 TSH Qn 0.74 m[IU]/L Normal 0.40-4.50 [facility] Comment on above: Order Comment: [facility] Testing performed at: [facility] [employer] [facility], [address], [address] [place], [address], Community Leader: Donavan Moser MD [facility] Date/Time: [facility] Results Received Date/Time: [facility] Reported Date/Time: FASTING: NO Performed By: #### 1 0231A, ESR, %[id number], TSH, 249X #### [facility] [address] [place] [address] Covid-19 PCR (CVDTB)on 07-08 Covid-19 PCR NOT DETECTED Normal NOT DETECTED [facility] Comment on above: Result Comment: This test is not yet approved or cleared by the [place] FDA. When there are no FDA-approved or cleared tests available, and other criteria are met, FDA can make tests available under an emergency access mechanism called an Emergency Use Authorization (EUA). The EUA for this test is supported by the [employer] of Health and Human Service's (HHS's) declaration that circumstances exist to justify the emergency use of in vitro diagnostics for the detection and/or diagnosis of the virus that causes COVID-19. This EUA will remain in effect (meaning this test can be used) for the duration of the COVID-19 declaration justifying emergency of IVDs, unless it is terminated or revoked by FDA (after which the test may no longer be used). Performed By: #### C VDTBH #### [facility] [address] [place], [place] [address] Domo Miller EUA Statement SEE BELOW Normal [facility] Comment on above: Result Comment: This test is not yet approved or cleared by the [place] FDA. When there are no FDA-approved or cleared tests available, and other criteria are met, FDA can make tests available under an emergency access mechanism called an Emergency Use Authorization (EUA). The EUA for this test is supported by the [place] of Health and Human Service?s (HHS?s) declaration that circumstances exist to justify the emergency use of in vitro diagnostics for the detection and/or diagnosis of the virus that causes COVID-19. This EUA will remain in effect (meaning this test can be used) for the duration of the COVID-19 declaration justifying emergency of IVDs, unless it is terminated or revoked by FDA (after which the test may no longer be used). When diagnostic testing is negative, the possibility of a false negative should be considered in the context of a patients recent exposures and the presence of clinical signs and symptoms consistent with SARS-CoV-2. Performed By: #### C VDTBH #### [facility] [address] [place], [place] [address] Domo Miller COVID-19 PCRon 03-19-2020 SARS-CoV-2, MARCY Not Detected Normal Not Detected [facility] Comment on above: Result Comment: This test was developed and its performance characteristics determined by [employer]. This test has not been FDA cleared or approved. This test has been authorized by FDA under an Emergency Use Authorization (EUA). This test is only authorized for the duration of time the declaration that circumstances exist justifying the authorization of the emergency use of in vitro diagnostic tests for detection of SARS-CoV-2 virus and/or diagnosis of COVID-19 infection under section 564(b)(1) of the Act, 21 U.S.C. 360bbb-3(b)(1), unless the authorization is terminated or revoked sooner. When diagnostic testing is negative, the possibility of a false negative result should be considered in the context of a patient's recent exposures and the presence of clinical signs and symptoms consistent with COVID-19. An individual without symptoms of COVID-19 and who is not shedding SARS-CoV-2 virus would expect to have a negative (not detected) result in this assay. Performed By: #### C VDPCR #### [facility] [address] [place] [id number] Domo Miller Vital Signs Date Time Vital Sign Value Performing Clinician Facility 03-15-2025 14:37-0400 Body height 152.4 cm Edmond Ball DO Work Phone: [facility] 03-15-2025 14:37-0400 Body mass index (BMI) [Ratio] 36.8 kg/m2 Edmond Ball DO Work Phone: [facility] 03-15-2025 14:37-0400 Body weight 85.44 kg Edmond Ball DO Work Phone: [facility] 03-15-2025 14:37-0400 Diastolic blood pressure 81 mm[Hg] Edmond Ball DO Work Phone: [facility] 03-15-2025 14:37-0400 Heart rate 64 /min Edmond Ball DO Work Phone: [facility] 03-15-2025 14:37-0400 Respiratory rate 12 /min Edmond Ball DO Work Phone: [facility] 03-15-2025 14:37-0400 Systolic blood pressure 125 mm[Hg] Edmond Ball DO Work Phone: [facility] 07-12-2024 08:07-0500 Body temperature 98.24 [degF] Karlee Lue [facility] 07-12-2024 08:07-0500 Diastolic blood pressure 74 mm[Hg] Karlee Lue [facility] 07-12-2024 08:07-0500 Respiratory rate 16 /min Karlee Lue [facility] 07-12-2024 08:07-0500 Systolic blood pressure 128 mm[Hg] Karlee Montes De Oca [facility] 07-02-2024 13:43-0500 Blood Pressure Location CARON CARVAJAL [facility] 07-02-2024 13:43-0500 Diastolic blood pressure 61 mm[Hg] CARON JANETTE [facility] 07-02-2024 13:43-0500 Heart rate 65 /min CARON JANETTE [facility] 07-02-2024 13:43-0500 Respiratory rate 18 /min CARON JANETTE [facility] 07-02-2024 13:43-0500 Systolic blood pressure 102 mm[Hg] CARON JANETTE [facility] 03-02-2024 11:10-0400 Blood Pressure Location Gera Thomas [facility] 03-02-2024 11:10-0400 Diastolic blood pressure 90 mm[Hg] Gera Thomas [facility] 03-02-2024 11:10-0400 Heart rate 58 /min Gera Thomas [facility] 03-02-2024 11:10-0400 Respiratory rate 18 /min Gera Thomas [facility] 03-02-2024 11:10-0400 SaO2% (BldA) [Mass fraction] 94 % Gera Thomas [facility] 03-02-2024 11:10-0400 Systolic blood pressure 140 mm[Hg] Gera Thomas [facility] 09-28-2023 09:05-0500 Body height 154 cm Ant Kirk DO Work Phone: [facility] 09-28-2023 09:05-0500 Body mass index (BMI) [Ratio] 37.3 kg/m2 Ant Kirk DO Work Phone: [facility] 09-28-2023 09:05-0500 Body temperature 98.01 [degF] Ant Kirk DO Work Phone: [facility] 09-28-2023 09:05-0500 Body weight 88.45 kg Ant Kirk DO Work Phone: [facility] 09-28-2023 09:05-0500 Diastolic blood pressure 64 mm[Hg] Ant Kirk DO Work Phone: [facility] 09-28-2023 09:05-0500 Heart rate 57 /min Ant Kirk DO Work Phone: [facility] 09-28-2023 09:05-0500 Respiratory rate 16 /min Ant Kirk DO Work Phone: [facility] 09-28-2023 09:05-0500 SaO2% (BldA) [Mass fraction] 96 % Ant Kirk DO Work Phone: [employer] 09-28-2023 09:05-0500 Systolic blood pressure 145 mm[Hg] Ant Kirk DO Work Phone: [employer] 09-15-2023 12:32-0500 Diastolic blood pressure 55 mm[Hg] Dennise Sol DO Work Phone: [facility] 09-15-2023 12:32-0500 Heart rate 56 /min Dennise Sol DO Work Phone: [facility] [employer] 09-15-2023 12:32-0500 Respiratory rate 20 /min Dennise Sol DO Work Phone: [employer] 09-15-2023 12:32-0500 SaO2% (BldA) [Mass fraction] 99 % Dennise Sol [employer] Work Phone: [employer] 09-15-2023 12:32-0500 Systolic blood pressure 126 mm[Hg] Dennise Sol DO Work Phone: [facility] 09-15-2023 10:29-0500 Body height 152.4 cm Dennise Sol [employer] Work Phone: [facility] 09-15-2023 10:29-0500 Body mass index (BMI) [Ratio] 37.11 kg/m2 Dennise Sol [employer] Work Phone: [employer] 09-15-2023 10:29-0500 Body temperature 98.29 [degF] Dennise Sol [employer] Work Phone: [facility] 09-15-2023 10:29-0500 Body weight 86.18 kg Dennise Sol [employer] Work Phone: [facility] 07-13-2023 11:29-0500 Heart rate 72 /min Reuben DREW [facility] 07-13-2023 11:29-0500 SaO2% (BldA) [Mass fraction] 95 % Reuben DREW [facility] 07-13-2023 11:27-0500 Diastolic blood pressure 79 mm[Hg] Reuben DREW [facility] 07-13-2023 11:27-0500 Mean blood pressure 101 mm[Hg] Reuben YOUNGLIN [facility] 07-13-2023 11:27-0500 Systolic blood pressure 145 mm[Hg] Reuben YOUNGLIN [facility] 07-13-2023 11:27-0500 Body temperature 97.88 [degF] Reuben VIKI [facility] 07-13-2023 10:07-0500 Hourly Rounding Reuben VIKI [facility] 07-13-2023 10:07-0500 Promise to Return Reuben VIKI [facility] 07-13-2023 09:00-0500 Hourly Rounding Reuben VIKI [facility] 07-13-2023 09:00-0500 Promise to Return Reuben VIKI [facility] 07-13-2023 08:23-0500 Hourly Rounding Reuben VIKI [facility] 07-13-2023 08:23-0500 Promise to Return Reuben VIKI [facility] 07-13-2023 07:35-0500 Heart rate 68 /min Reuben VIKI [facility] 07-13-2023 07:35-0500 SaO2% (BldA) [Mass fraction] 96 % Reuben VIKI [facility] 07-13-2023 07:35-0500 Diastolic blood pressure 69 mm[Hg] Reuben VIKI [facility] 07-13-2023 07:35-0500 Mean blood pressure 97 mm[Hg] Reuben VIKI [facility] 07-13-2023 07:35-0500 Systolic blood pressure 153 mm[Hg] Reuben VIKI [facility] 07-13-2023 07:34-0500 Body temperature 97.88 [degF] Reuben VIKI [facility] 07-13-2023 05:03-0500 Blood Pressure Location Reubenmichelle CISNEROSSLIN [facility] 07-13-2023 05:03-0500 Body temperature 97.52 [degF] Reubenmichelle CISNEROSSLIN [facility] 07-13-2023 05:03-0500 Diastolic blood pressure 64 mm[Hg] Reubenmichelle CISNEROSSLIN [facility] 07-13-2023 05:03-0500 Heart rate 69 /min Reubenmichelle CISNEROSSLIN [facility] 07-13-2023 05:03-0500 Mean blood pressure 88 mm[Hg] Reubenmichelle CISNEROSSLIN [facility] 07-13-2023 05:03-0500 Respiratory rate 20 /min Reubenmichelle CISNEROSSLIN [facility] 07-13-2023 05:03-0500 SaO2% (BldA) [Mass fraction] 94 % Reubenmichelle CISNEROSSLIN [facility] 07-13-2023 05:03-0500 Systolic blood pressure 137 mm[Hg] Reubenmichelle CISNEROSSLIN [facility] 07-13-2023 03:08-0500 Respiratory rate 20 /min Reubenmichelle CISNEROSSLIN [facility] 07-12-2023 19:48-0500 Mean blood pressure 99 mm[Hg] Reubenmichelle CISNEROSSLIN [facility] 07-12-2023 17:10-0500 Body temperature 98.24 [degF] Reubenmichelle CISNEROSSLIN [facility] 07-12-2023 05:25-0500 Body temperature 98.06 [degF] Reubenmichelle CISNEROSSLIN [facility] 07-12-2023 05:25-0500 Mean blood pressure 92 mm[Hg] Reuben VIKI [facility] 07-12-2023 05:25-0500 Respiratory rate 18 /min Reuben VIKI [facility] 07-11-2023 12:00-0500 Body temperature 97.7 [degF] Reuben VIKI [facility] 07-11-2023 04:10-0500 Blood Pressure Location Reuben VIKI [facility] 07-11-2023 04:10-0500 Mean blood pressure 100 mm[Hg] Reuben VIKI [facility] 07-11-2023 00:45-0500 Blood Pressure Location Reuben VIKI [facility] 07-10-2023 20:15-0500 Heart rate 86 /min Reuben VIKI [facility] 07-10-2023 19:12-0500 Respiratory rate 18 /min Reuben VIKI [facility] 07-10-2023 18:45-0500 Respiratory rate 18 /min Reuben VIKI [facility] 07-10-2023 17:25-0500 gluc 90 mg/dL Reuben VIKI [facility] 07-10-2023 17:25-0500 gluc Reuben VIKI [facility] 07-10-2023 16:55-0500 Heart rate 85 /min Reuben VIKI [facility] 05-17-2023 14:45-0400 Body height 152.4 cm Edmond Ball Other [employer] Other 05-17-2023 14:45-0400 Body mass index (BMI) [Ratio] 37.3 kg/m2 Edmond Ball Other [employer] Other 05-17-2023 14:45-0400 Body weight 86.64 kg Edmond Ball Other [employer] Other 05-17-2023 14:45-0400 Diastolic blood pressure 67 mm[Hg] Edmond Ball Other [employer] Other 05-17-2023 14:45-0400 Respiratory rate 12 /min Edmond Ball Other [employer] Other 05-17-2023 14:45-0400 Systolic blood pressure 152 mm[Hg] Edmond Ball Other [employer] Other 04-06-2023 11:00-0400 Body height 152.4 cm Edmond Ball Other [employer] Other 04-06-2023 11:00-0400 Body mass index (BMI) [Ratio] 36.56 kg/m2 Edmond Ball Other [employer] Other 04-06-2023 11:00-0400 Body weight 84.91 kg Edmond Ball Other [employer] Other 04-06-2023 11:00-0400 Diastolic blood pressure 74 mm[Hg] Edmond Ball Other [employer] Other 04-06-2023 11:00-0400 Respiratory rate 12 /min Edmond Ball Other [employer] Other 04-06-2023 11:00-0400 Systolic blood pressure 160 mm[Hg] Edmond Ball Other [facility] [employer] Other 03-14-2023 11:27-0400 Heart rate 59 /min Mbanefo OJUKWU [facility] 03-14-2023 11:27-0400 SaO2% (BldA) [Mass fraction] 95 % Mbanefo OJUKWU [facility] 03-14-2023 11:26-0400 Diastolic blood pressure 72 mm[Hg] Mbanefo OJUKWU [facility] 03-14-2023 11:26-0400 Mean blood pressure 86 mm[Hg] Mbanefo OJUKWU [facility] 03-14-2023 11:26-0400 Systolic blood pressure 113 mm[Hg] Mbanefo OJUKWU [facility] 03-14-2023 11:26-0400 Body temperature 98.24 [degF] Mbanefo OJUKWU [facility] 03-14-2023 11:00-0400 Blood Pressure Location Mbanefo OJUKWU [facility] 03-14-2023 11:00-0400 Respiratory rate 16 /min Mbanefo OJUKWU [facility] 03-14-2023 10:00-0400 Hourly Rounding Mbanefo OJUKWU [facility] 03-14-2023 10:00-0400 Promise to Return Mbanefo OJUKWU [facility] 03-14-2023 09:18-0400 Hourly Rounding Mbanefo OJUKWU [facility] 03-14-2023 09:18-0400 Promise to Return Mbanefo OJUKWU [facility] 03-14-2023 08:29-0400 Heart rate 57 /min Mbanefo OJUKWU [facility] 03-14-2023 08:29-0400 SaO2% (BldA) [Mass fraction] 96 % Mbanefo OJUKWU [facility] 03-14-2023 08:29-0400 Diastolic blood pressure 77 mm[Hg] Mbanefo OJUKWU [facility] 03-14-2023 08:29-0400 Mean blood pressure 99 mm[Hg] Mbanefo OJUKWU [facility] 03-14-2023 08:29-0400 Systolic blood pressure 142 mm[Hg] Mbanefo OJUKWU [facility] 03-14-2023 08:29-0400 Body temperature 97.88 [degF] Mbanefo OJUKWU [facility] 03-14-2023 08:00-0400 Hourly Rounding Mbanefo OJUKWU [facility] 03-14-2023 08:00-0400 Promise to Return Mbanefo OJUKWU [facility] 03-13-2023 20:00-0400 Body temperature 97.7 [degF] Mbanefo OJUKWU [facility] 03-13-2023 20:00-0400 Diastolic blood pressure 64 mm[Hg] Mbanefo OJUKWU [facility] 03-13-2023 20:00-0400 Heart rate 63 /min Mbanefo OJUKWU [facility] 03-13-2023 20:00-0400 SaO2% (BldA) [Mass fraction] 94 % Mbanefo OJUKWU [facility] 03-13-2023 20:00-0400 Systolic blood pressure 114 mm[Hg] Mbanefo OJUKWU [facility] 03-13-2023 15:20-0400 Mean blood pressure 100 mm[Hg] Mbanefo OJUKWU [facility] 03-12-2023 19:00-0400 Mean blood pressure 92 mm[Hg] Mbanefo OJUKWU [facility] 03-11-2023 05:00-0400 Body temperature 98.06 [degF] Mbanefo OJUKWU [facility] 03-11-2023 01:00-0400 Body temperature 98.06 [degF] Mbanefo OJUKWU [facility] 03-10-2023 15:54-0400 Blood Pressure Location Mbanefo OJUKWU [facility] 03-10-2023 15:54-0400 Body temperature 98.24 [degF] Mbanefo OJUKWU [facility] 03-10-2023 15:54-0400 Heart rate 61 /min Mbanefo OJUKWU [facility] 03-10-2023 15:54-0400 Respiratory rate 17 /min Mbanefo OJUKWU [facility] 03-10-2023 14:45-0400 Mean blood pressure 115 mm[Hg] Mbanefo OJUKWU [facility] 03-10-2023 14:45-0400 Respiratory rate 17 /min Mbanefo OJUKWU [facility] 03-10-2023 13:45-0400 Mean blood pressure 96 mm[Hg] Mbanefo OJUKWU [facility] 03-10-2023 13:45-0400 Respiratory rate 16 /min Mbanefo OJUKWU [facility] 03-10-2023 12:45-0400 Respiratory rate 15 /min Mbanefo OJUKWU [facility] 03-10-2023 11:48-0400 Heart rate 61 /min Mbanefo OJUKWU [facility] 03-10-2023 11:33-0400 gluc 109 mg/dL Mbanefo OJUKWU [facility] 03-10-2023 11:33-0400 gluc Mbanefo OJUKWU [facility] 03-10-2023 11:22-0400 Heart rate 71 /min Mbanefo OJUKWU [facility] 01-19-2023 12:38-0400 Body weight 84.5 kg Quiana Waterman APRN.SCARIFIER OPERATOR Work Phone: [facility] 01-19-2023 12:38-0400 Diastolic blood pressure 81 mm[Hg] Quiana Waterman APRN.SCARIFIER OPERATOR Work Phone: [facility] 01-19-2023 12:38-0400 Heart rate 54 /min Quiana Waterman APRN.SCARIFIER OPERATOR Work Phone: [facility] 01-19-2023 12:38-0400 Systolic blood pressure 160 mm[Hg] Quiana Waterman APRN.SCARIFIER OPERATOR Work Phone: [facility] 09-13-2022 15:30-0500 Body height 152.4 cm Edmond Ball Other [employer] Other 09-13-2022 15:30-0500 Body mass index (BMI) [Ratio] 36.24 kg/m2 Demond Ball Other [employer] Other 09-13-2022 15:30-0500 Body weight 84.19 kg Edmond Ball Other [employer] Other 09-13-2022 15:30-0500 Diastolic blood pressure 74 mm[Hg] Edmond Ball Other [employer] Other 09-13-2022 15:30-0500 Respiratory rate 12 /min Edmond Ball Other [employer] Other 09-13-2022 15:30-0500 Systolic blood pressure 122 mm[Hg] Edmond Ball Other [employer] Other 05-12-2022 15:28-0400 Body temperature 98.24 [degF] Reuben DREW [facility] 05-12-2022 15:28-0400 Diastolic blood pressure 58 mm[Hg] Reuben DREW [facility] 05-12-2022 15:28-0400 Heart rate 68 /min Reuben DREW [facility] 05-12-2022 15:28-0400 Mean blood pressure 79 mm[Hg] Reuben CISNEROSSLIN [facility] 05-12-2022 15:28-0400 SaO2% (BldA) [Mass fraction] 95 % Reuben DREW [facility] 05-12-2022 15:28-0400 Systolic blood pressure 122 mm[Hg] Reuben VIKI [facility] 05-12-2022 14:46-0400 Diastolic blood pressure 78 mm[Hg] Reuben VIKI [facility] 05-12-2022 14:46-0400 Heart rate 82 /min Reuben VIKI [facility] 05-12-2022 14:46-0400 Mean blood pressure 97 mm[Hg] Reuben VIKI [facility] 05-12-2022 14:46-0400 Respiratory rate 16 /min Reuben VIKI [facility] 05-12-2022 14:46-0400 Systolic blood pressure 135 mm[Hg] Reuben VIKI [facility] 05-12-2022 13:00-0400 Hourly Rounding Reuben VIKI [facility] 05-12-2022 13:00-0400 Promise to Return Reuben VIKI [facility] 05-12-2022 12:00-0400 Hourly Rounding Reuben VIKI [facility] 05-12-2022 12:00-0400 Promise to Return Reuben VIKI [facility] 05-12-2022 11:00-0400 Blood Pressure Location Reuben VIKI [facility] 05-12-2022 11:00-0400 Body temperature 99.68 [degF] Reuben VIKI [facility] 05-12-2022 11:00-0400 BP/Pulse Patient Position Reuben VIKI [facility] 05-12-2022 11:00-0400 Diastolic blood pressure 67 mm[Hg] Reubenmichelle CISNEROSSLIN [facility] 05-12-2022 11:00-0400 Heart rate 61 /min Reubenmichelle CISNEROSSLIN [facility] 05-12-2022 11:00-0400 Hourly Rounding Reubenmichelle CISNEROSSLIN [facility] 05-12-2022 11:00-0400 Mean blood pressure 83 mm[Hg] Reubenmichelle CISNEROSSLIN [facility] 05-12-2022 11:00-0400 Promise to Return Reubenmichelle CISNEROSSLIN [facility] 05-12-2022 11:00-0400 Respiratory rate 18 /min Reubenmichelle CISNEROSSLIN [facility] 05-12-2022 11:00-0400 Systolic blood pressure 116 mm[Hg] Reubenmichelle CISNEROSSLIN [facility] 05-12-2022 10:00-0400 Mean blood pressure 82 mm[Hg] Reubenmichelle CISNEROSSLIN [facility] 05-12-2022 07:53-0400 Heart rate 64 /min Reubenmichelle CISNEROSSLIN [facility] 05-12-2022 07:00-0400 Body temperature 98.06 [degF] Reubenmichelle CISNEROSSLIN [facility] 05-12-2022 07:00-0400 SaO2% (BldA) [Mass fraction] 94 % Reubenmichelle CISNEROSSLIN [facility] 05-12-2022 06:48-0400 Heart rate 69 /min Reubenmichelle CISNEROSSLIN [facility] 05-12-2022 04:00-0400 SaO2% (BldA) [Mass fraction] 99 % Reubenmichelle CISNEROSSLIN [facility] 05-11-2022 20:39-0400 Mean blood pressure 81 mm[Hg] Reubenmichelle CISNEROSSLIN [facility] 05-11-2022 17:14-0400 Blood Pressure Location Reubenmichelle CISNEROSSLIN [facility] 05-11-2022 17:14-0400 BP/Pulse Patient Position Reubenmichelle CISNEROSSLIN [facility] 05-11-2022 17:14-0400 Mean blood pressure 90 mm[Hg] Reubenimchelle CISNEROSSLIN [facility] 05-11-2022 08:21-0400 Heart rate 76 /min Reubenmichelle CISNEROSSLIN [facility] 05-10-2022 02:27-0400 Respiratory rate 11 /min Reuben VIKI [facility] 05-10-2022 02:21-0400 Respiratory rate 15 /min Reuben VIKI [facility] 05-09-2022 21:00-0400 gluc 93 mg/dL Reubenmichelle CISNEROSSLIN [facility] 05-09-2022 21:00-0400 gluc Reubenmichelle CISNEROSSLIN [facility] 12-15-2021 10:38-0400 Diastolic blood pressure 66 mm[Hg] Juaquin Owen [facility] 12-15-2021 10:38-0400 Mean blood pressure 92 mm[Hg] Juaquin Owen [facility] 12-15-2021 10:38-0400 Systolic blood pressure 143 mm[Hg] Juaquin Owen [facility] 12-15-2021 10:30-0400 Blood Pressure Location Juaquin Owen [facility] 12-15-2021 10:30-0400 Diastolic blood pressure 64 mm[Hg] Juaquin Owen [facility] 12-15-2021 10:30-0400 Heart rate 65 /min Juaquin Owen [facility] 12-15-2021 10:30-0400 Respiratory rate 18 /min Juaquin Owen [facility] 12-15-2021 10:30-0400 SaO2% (BldA) [Mass fraction] 98 % Juaquin Owen [facility] 12-15-2021 10:30-0400 Systolic blood pressure 144 mm[Hg] Juaquin Owen [facility] 12-13-2021 14:00-0400 Body temperature 98.96 [degF] Steffen Castle [facility] 12-13-2021 14:00-0400 Heart rate 80 /min Steffen Castle [facility] 12-13-2021 14:00-0400 Mean blood pressure 89 mm[Hg] Steffen Castle [facility] 12-13-2021 14:00-0400 Respiratory rate 10 /min Steffen Castle [facility] 12-13-2021 11:05-0400 Hourly Rounding Steffen Castle [facility] 12-13-2021 11:05-0400 Promise to Return Steffen Castle [facility] 12-13-2021 10:22-0400 Hourly Rounding Steffen Castle [facility] 12-13-2021 10:22-0400 Promise to Return Steffen Castle [facility] 12-13-2021 09:17-0400 Hourly Rounding Steffen Castle [facility] 12-13-2021 09:17-0400 Promise to Return Steffen Castle [facility] 12-13-2021 08:46-0400 SaO2% (BldA) [Mass fraction] 97 % Steffen Castle [facility] 12-13-2021 08:10-0400 Diastolic blood pressure 68 mm[Hg] Steffen Castle [facility] 12-13-2021 08:10-0400 Heart rate 70 /min Steffen Castle [facility] 12-13-2021 08:10-0400 Systolic blood pressure 145 mm[Hg] Steffen Castle [facility] 12-13-2021 07:05-0400 Body temperature 98.06 [degF] Steffen Castle [facility] 12-13-2021 07:05-0400 Diastolic blood pressure 68 mm[Hg] Steffen Castle [facility] 12-13-2021 07:05-0400 Heart rate 70 /min Steffen Castle [facility] 12-13-2021 07:05-0400 Mean blood pressure 93 mm[Hg] Steffen Castle [facility] 12-13-2021 07:05-0400 SaO2% (BldA) [Mass fraction] 96 % Steffen Castle [facility] 12-13-2021 07:05-0400 Systolic blood pressure 145 mm[Hg] Steffen Castle [facility] 12-13-2021 03:45-0400 Blood Pressure Location Steffen Castle [facility] 12-13-2021 03:45-0400 Body temperature 97.88 [degF] Steffen Castle [facility] 12-13-2021 03:45-0400 Diastolic blood pressure 73 mm[Hg] Steffen Castle [facility] 12-13-2021 03:45-0400 Heart rate 68 /min Steffen Castle [facility] 12-13-2021 03:45-0400 Respiratory rate 16 /min Steffen Castle [facility] 12-13-2021 03:45-0400 SaO2% (BldA) [Mass fraction] 96 % Steffen Castle [facility] 12-13-2021 03:45-0400 Systolic blood pressure 156 mm[Hg] Steffen Castle [facility] 12-13-2021 03:00-0400 Heart rate 71 /min Steffen Castle [facility] 12-13-2021 03:00-0400 Mean blood pressure 96 mm[Hg] Steffen Castle [facility] 12-13-2021 03:00-0400 Respiratory rate 11 /min Steffen Castle [facility] 12-13-2021 01:00-0400 Mean blood pressure 71 mm[Hg] Steffen Castle [facility] 12-13-2021 01:00-0400 Respiratory rate 12 /min Steffen Castle [facility] 12-12-2021 22:45-0400 Heart rate 87 /min Steffen Castle [facility] 12-12-2021 22:45-0400 Respiratory rate 18 /min Steffen Castle [facility] 12-12-2021 22:30-0400 Heart rate 71 /min Steffen Castle [facility] 12-12-2021 22:30-0400 Respiratory rate 20 /min Steffen Castle [facility] Encounters Encounter Date Encounter Type Care Provider Facility Start: 03-15-2025 End: 03-15-2025 ambulatory Edmond Pacheco DO Work Phone: [facility] Work Phone: Start: 03-15-2025 End: 03-15-2025 Patient encounter procedure Edmond Pacheco DO -[facility] Work Phone: Start: 03-13-2025 Patient encounter procedure Edmond Ball DO Work Phone: [facility] Start: 02-28-2025 End: 02-28-2025 Patient encounter procedure Sunny Taylor MD -[facility] Work Phone: Start: 02-28-2025 End: 02-28-2025 ambulatory Edmond Ball DO Work Phone: [facility] Work Phone: Start: 10-08-2024 End: 10-08-2024 ambulatory PA-C CARON CARVAJAL Facility:[facility] Start: 10-08-2024 End: 10-08-2024 Patient encounter procedure CARON CARVAJAL [facility] Start: 07-12-2024 ambulatory Karlee Montes De Oca Facility:[facility] Start: 07-12-2024 End: 07-12-2024 Patient encounter procedure Karlee Montes De Oca [facility] Start: 07-11-2024 ambulatory Karlee Montes De Oca Facility:[facility] Start: 07-04-2024 End: 07-04-2024 ambulatory PA-C CARON Aniya JANETTE Facility:[facility] Start: 07-04-2024 End: 07-04-2024 Patient encounter procedure CARON VINCENTRY [facility] Start: 07-02-2024 End: 07-02-2024 ambulatory PA-C CARON Aniya JANETTE Facility:[facility] Start: 07-02-2024 End: 07-02-2024 Lab Drop off CARON Aniya JANETTE [facility] Start: 07-02-2024 End: 07-02-2024 ambulatory PA-C CARON Aniya JANETTE Facility:[facility] Start: 07-02-2024 End: 07-02-2024 Patient encounter procedure CARON Aniya JANETTE [facility] Start: 06-29-2024 End: 06-29-2024 ambulatory EDMOND BALL Facility:[facility] Start: 06-29-2024 End: 06-29-2024 Lab Drop off EDMOND BALL [facility] Start: 06-18-2024 End: 06-18-2024 ambulatory EDMOND BALL Facility:[facility] Start: 06-18-2024 End: 06-18-2024 Lab Drop off EDMOND BALL [facility] Start: 05-30-2024 End: 05-30-2024 ambulatory EDMOND BALL Facility:[facility] Start: 05-30-2024 End: 05-30-2024 Lab Drop off EDMOND BALL [facility] Start: 05-25-2024 ambulatory THAI PATEL Facility:[facility] Start: 05-15-2024 End: 05-15-2024 ambulatory EDMOND PACHECO Facility:[facility] Start: 05-15-2024 End: 05-15-2024 Lab Drop off EDMOND PACHECO [facility] Start: 05-04-2024 End: 05-04-2024 ambulatory EDMOND PACHECO Facility:[facility] Start: 05-04-2024 End: 05-04-2024 Lab Drop off EDMOND PACHECO [facility] Start: 03-30-2024 End: 03-30-2024 Pre-admission assessment Gera Thomas [facility] Start: 03-14-2024 End: 03-14-2024 ambulatory ALICIAC Gera Thomas Facility:[facility] Start: 03-14-2024 End: 03-14-2024 Patient encounter procedure Gera Thomas [facility] Start: 03-09-2024 Refill Chaparro mccray OD Work Phone: Ophthalmology Comment on above: Refill Request Start: 03-02-2024 End: 03-02-2024 ambulatory [facility] Facility:[facility] Start: 03-02-2024 End: 03-02-2024 Patient encounter procedure Gera Thomas [facility] Start: 03-02-2024 End: 03-02-2024 ambulatory [facility] Facility:[facility] Start: 03-02-2024 End: 03-02-2024 Patient encounter procedure Gera Thomas [facility] Start: 01-12-2024 End: 01-12-2024 Emergency department patient visit THAI Lombardo [facility] Start: 12-21-2023 End: 12-21-2023 Emergency department patient visit THAI Lombardo [facility]EL [facility] Start: 11-23-2023 End: 11-23-2023 ambulatory DO Edmond Pacheco Work Phone: [facility] Work Phone: Start: 11-23-2023 End: 11-23-2023 Patient encounter procedure DO Edmond Pacheco Work Phone: [facility] [address] Work Phone: Start: 10-21-2023 End: 10-21-2023 Emergency department patient visit THAI Lombardo [facility] Start: 09-28-2023 End: 09-28-2023 Emergency department patient visit Ant Kirk DO Work Phone: [facility] ED Comment on above: Fall, initial encoun ter (Primary Dx) Start: 09-15-2023 End: 09-15-2023 Emergency department patient visit Dennise Sol DO Work Phone: [facility] ED Comment on above: Unwitnessed fall (Pr imary Dx) Start: 09-07-2023 End: 09-07-2023 ambulatory ROJAS BROWN Facility:[facility] Start: 08-27-2023 End: 08-31-2023 ambulatory Alex Bhatti Facility:[facility] Start: 08-19-2023 End: 08-19-2023 ambulatory Edmond Junior Other [facility] Other Start: 08-19-2023 Telephone encounter Edmond Ibarra [facility] Start: 08-16-2023 End: 08-16-2023 ambulatory Edmond Pacheco Other [facility] Other Start: 08-16-2023 Telephone encounter Edmond Ibarra [facility] Start: 07-21-2023 End: 07-21-2023 ambulatory Chaparro Hanna Facility:CD:[id number] Start: 07-21-2023 End: 07-21-2023 Off-Site [facility] Start: 07-20-2023 End: 07-20-2023 ambulatory Edmond Pacheco Other [facility] Other Start: 07-20-2023 Telephone encounter Edmond Ibarra [facility] Start: 07-20-2023 End: 07-22-2023 Evaluation and management of inpatient Inderjit WHITTAKERWOOD [facility] Start: 07-15-2023 End: 07-15-2023 ambulatory Inderjit [place] Facility:[id number] Start: 07-15-2023 End: 07-15-2023 Off-Site [facility]jit [facility] Start: 07-13-2023 End: 07-22-2023 ambulatory Inderjit [place] Facility:[facility] Start: 07-10-2023 End: 07-13-2023 ambulatory Austyn Crestwood Facility:[facility] Start: 07-10-2023 End: 07-13-2023 Observation Reuben DREW [facility] Start: 07-08-2023 End: 07-16-2023 Pre-admission assessment EDMOND PACHECO [facility] Start: 06-24-2023 Telephone encounter Edmond Ibarra [facility] Start: 06-24-2023 End: 06-24-2023 ambulatory EDMOND PACHECO [facility] Other Start: 06-24-2023 End: 06-24-2023 Patient encounter procedure EDMOND PACHECO [facility] Start: 06-22-2023 End: 06-22-2023 ambulatory Edmond Ball Other [facility] Other Start: 06-22-2023 Telephone encounter Edmond Ball [facility] Start: 06-21-2023 Telephone encounter Edmond Ball [facility] Start: 06-21-2023 End: 06-21-2023 ambulatory EDMOND BALL [facility] Other Start: 06-21-2023 End: 06-21-2023 Lab Drop off EDMOND BALL [facility] Start: 06-20-2023 End: 06-20-2023 ambulatory Edmond Ball Other [facility] Other Start: 06-20-2023 Telephone encounter Edmond Ball [facility] Start: 05-17-2023 End: 05-17-2023 ambulatory Edmond Ball Other [employer] Other Start: 05-17-2023 Office outpatient vi sit 25 minutes Edmond Ball [facility] Start: 05-16-2023 End: 05-16-2023 ambulatory Edmond Ball Other [employer] Other Start: 05-16-2023 Telephone encounter Edmond Ball [facility] Start: 05-13-2023 End: 05-13-2023 ambulatory Edmond Ball Other [employer] Other Start: 05-13-2023 Telephone encounter Edmond Ball [facility] Start: 05-11-2023 Telephone encounter Edmond Ball [facility] Start: 05-11-2023 End: 05-11-2023 ambulatory EDMOND BALL [facility] Other Start: 05-11-2023 End: 05-11-2023 Lab Drop off EDMOND BALL [facility] Start: 05-06-2023 End: 05-06-2023 ambulatory Edmond Ball Other [employer] Other Start: 05-06-2023 Telephone encounter Edmond Ball [facility] Start: 05-05-2023 End: 05-05-2023 ambulatory Edmond Ball Other [employer] Other Start: 05-05-2023 Telephone encounter Edmond Ball [facility] Start: 05-03-2023 End: 05-03-2023 ambulatory Edmond Ball Other [facility] Other Start: 05-03-2023 Telephone encounter Edmond Ball [facility] Start: 04-26-2023 End: 04-26-2023 ambulatory Edmond Ball Other [facility] Other Start: 04-26-2023 Telephone encounter Edmond Ball [facility] Start: 04-06-2023 End: 04-06-2023 ambulatory Edmond Ball Other [employer] Other Start: 04-06-2023 Office outpatient vi sit 25 minutes Edmond Junior [facility] Start: 04-05-2023 End: 04-05-2023 ambulatory DO Edmond Ball Work Phone: [facility] Work Phone: Start: 04-05-2023 End: 04-05-2023 Patient encounter procedure DO Edmond Ball Work Phone: [facility] [address] Work Phone: Start: 03-31-2023 End: 03-31-2023 ambulatory Edmond Ball Other [employer] Other Start: 03-31-2023 Telephone encounter Edmond Ball [facility] Start: 03-30-2023 Telephone encounter Edmond Ball [facility] Start: 03-30-2023 End: 03-30-2023 ambulatory EDMOND BALL [facility] Other Start: 03-30-2023 End: 03-30-2023 Lab Drop off EDMOND PACHECO [facility] Start: 03-24-2023 End: 03-24-2023 ambulatory MECHANICAL EQUIPMENT TEST ENGINEER-BC Nan Gambino Facility:CD:[id number] Start: 03-24-2023 End: 03-24-2023 Off-Site [facility] Start: 03-16-2023 End: 03-16-2023 ambulatory Inderjit ASHRAF Facility:CD:[id number] Start: 03-16-2023 End: 03-16-2023 Off-Site [facility]derjit [facility] Start: 03-10-2023 End: 03-14-2023 Observation Mbcrystal HattieJUKWU [facility] Start: 02-14-2023 End: 02-14-2023 ambulatory Edmond Pacheco Other [facility] Other Start: 02-14-2023 Telephone encounter Edmond Pacheco [facility] Start: 02-07-2023 Telephone encounter Quiana Waterman APRN.SCARIFIER OPERATOR Work Phone: Neurology Comment on above: Results (Pt daughter is requesting a copy of report); Outside Machinist - Other Appointment (Returne d call and gave Fax Number to Dr. Tobi Pacheco); Outside Machinist - Other Start: 01-28-2023 Telephone encounter Yari MCKINLEYW Work Phone: Neurology Comment on above: Outside Machinist - O ther Start: 01-20-2023 End: 01-20-2023 ambulatory DO Edmond Junior Work Phone: [facility] Work Phone: Start: 01-20-2023 End: 01-20-2023 Patient encounter procedure DO Edmond Junior Work Phone: [facility] [address] Work Phone: Start: 01-19-2023 End: 01-19-2023 ambulatory QUIANA WATERMAN Facility:[facility] Start: 01-19-2023 End: 01-19-2023 Patient encounter procedure Quiana Waterman DIETARY COOK.SCARIFIER OPERATOR Work Phone: Neurology Comment on above: Multifactorial demen tia (HCC) (Primary Dx); Alcohol abuse; Visual hallucinations; NAWAF (obstructive sleep apnea) Start: 12-31-2022 End: 09-20-2023 Recurring Michael Rodriguez [facility] Start: 12-18-2022 End: 12-18-2022 ambulatory Edmond Pacheco Other [facility] Other Start: 12-18-2022 Telephone encounter Edmond Pacheco [facility] Start: 12-17-2022 End: 12-17-2022 ambulatory Edmond Pacheco Other [employer] Other Start: 12-17-2022 Telephone encounter Edmond Pacheco [facility] Start: 12-17-2022 End: 12-17-2022 Patient encounter procedure EDMOND PACHECO [facility] Start: 10-19-2022 End: 10-19-2022 ambulatory Edmond Pacheco Other [facility] Other Start: 10-19-2022 Telephone encounter Edmond Pacheco [facility] Start: 10-12-2022 End: 10-12-2022 ambulatory Edmond Pacheco Other [employer] Other Start: 10-12-2022 Nursing evaluation o f patient and report Edmond Pacheco [facility] Start: 10-11-2022 End: 10-11-2022 ambulatory Edmond Pacheco Other [employer] Other Start: 10-11-2022 Office outpatient vi sit [address] [facility] Start: 09-23-2022 End: 09-23-2022 ambulatory NON STAFF [facility] Work Phone: Start: 09-23-2022 End: 09-23-2022 Patient encounter procedure [facility] [address] Work Phone: Start: 09-13-2022 End: 09-13-2022 ambulatory Edmond Pacheco Other [employer] Other Start: 09-13-2022 Office outpatient vi sit [address] [facility] Start: 08-27-2022 End: 08-27-2022 ambulatory Edmond Pacheco Other [employer] Other Start: 08-27-2022 Telephone encounter Edmond Pacheco [facility] Start: 08-26-2022 End: 08-26-2022 Patient encounter procedure Michael Rodriguez [facility] Start: 08-06-2022 Refill Chaparro mccray OD Work Phone: Ophthalmology Comment on above: Refill Request Start: 07-21-2022 End: 07-21-2022 ambulatory NON STAFF [facility] Work Phone: Start: 07-21-2022 End: 07-21-2022 Patient encounter procedure [facility] [address] Start: 07-05-2022 Pre-procedure evalua tion check Edmond Pacheco Other [employer] Other Start: 06-09-2022 End: 06-09-2022 Patient encounter procedure Austyn Campos [facility] Start: 06-01-2022 Refill Chaparro mccray OD Work Phone: Ophthalmology Comment on above: Refill Request Start: 05-24-2022 End: 06-02-2022 Pre-admission assessment Michael Rodriguez [facility] Start: 05-09-2022 End: 05-12-2022 Observation Reuben Jagruti DREW [facility] Start: 02-23-2022 End: 02-23-2022 Patient encounter procedure Kimmie Morgan [facility] Start: 01-27-2022 End: 01-27-2022 Patient encounter procedure Kimmie Morgan [facility] Start: 01-26-2022 End: 01-26-2022 Patient encounter procedure Juaquin Owen [facility] Start: 01-05-2022 End: 01-05-2022 Patient encounter procedure MD Luciano Taylor Work Phone: [facility]Neuro Psych Start: 12-15-2021 End: 12-15-2021 Patient encounter procedure Juaquin Owen [facility] Start: 12-12-2021 End: 12-13-2021 Observation Steffen Castle [facility] Start: 12-09-2021 End: 12-09-2021 Patient encounter procedure MD Luciano Taylor Work Phone: [facility] [address] Start: 11-17-2021 End: 11-17-2021 Patient encounter procedure EDMOND PACHECO [facility] Start: 11-04-2021 End: 11-04-2021 Patient encounter procedure EDMOND PACHECO [facility] Start: 07-18-2020 End: 07-19-2020 Patient encounter procedure EDMOND PACHECO Facility:[facility] Start: 03-18-2020 End: 03-19-2020 Patient encounter procedure EDMOND PACHECO Facility:[facility] Start: 08-22-2019 Adult health examination Wallace Pacheco Other [facility] Other Start: 06-20-2019 Gynecological examin ation normal Edmond Pacheco Other [employer] Other Procedures Date Procedure Procedure Detail Performing Clinician Start: 09-15-2023 Ecg routine ecg w/le ast 12 lds w/i&r Dennise Sol DO Work Phone: Start: 02-05-2021 Closed reduction of nasal fracture [facility] [employer] [employer] Start: 09-19-2014 Helene osteotomy secon d and third metatarsal. capsulotomy third metatarsophalangeal joint. Helene osteotomy second metatarsophalangeal joint. proximal interphalangeal joint arthroplasty left second digit and to the left third digit [facility] [employer] Start: 09-11-2014 Pre-surgery evaluation Edmond Pacheco Other Start: 08-08-2012 Cataract (morphologi c abnormality) [facility] [employer] Back structure, excl uding neck (body structure) [facility] [employer] Comment on above: laminectomy L3-4 5/2 014 Other bilateral liga tion and division of fallopian tubes [facility] [employer] Right hammer toe and bunionectomy [facility] [employer] RIght knee arthroscopy WALLACE PACHECO Plan of Treatment Date Care Activity Detail Author Start: 10-12-2032 Urine microalbumin profile DTaP,Tdap,Td Vaccine (3 - Td or Tdap) [facility] Start: 09-12-2024 End: 09-12-2024 Patient encounter procedure 09/12/2024 10:15 AM EST Office Visit [facility] Ophthalmology [address] [place] [address] Chaparro Yarbrough, ANDRESSA [address] [address] 1 Year Full, Dilate, Mac OCT, ONH/GCL OCT Ophthalmology Comment on above: 1 Year Full, Dilate, Mac OCT, ONH/GCL OCT Start: 04-08-2024 Influenza vaccination Influenza Vacc ine (#1) [facility] Start: 08-08-2023 Advance Directive Discussion Advance Directive Discussion [facility] Start: 08-08-2023 Annual Wellness Visi t (Medicare Advantage) Annual Wellness Visit (Medicare Advantage) [facility] Start: 04-08-2023 Covid-19 Vaccine ( season) Covid-19 Vaccine ( season) [facility] Start: 04-08-2023 Influenza vaccination INFLUENZA (#1) [facility] Start: 03-08-2023 Influenza vaccination Flu vaccine (# 1) [facility] Start: 03-02-2023 Pneumococcal Vaccine : 65+ (2 of 2 - PCV) Pneumococcal Vaccine: 65+ (2 of 2 - PCV) [facility] Start: 08-08-2022 ADVANCE DIRECTIVE DISCUSSION ADVANCE DIRECTIVE DISCUSSION [facility] Start: 08-08-2022 DEPRESSION ASSESSMENT DEPRESSION ASS ESSMENT [facility] Start: 04-08-2022 Influenza vaccination INFLUENZA (#1) [facility] Start: 09-15-2021 COVID-19 VACCINE (4 - Booster for Pfizer series) COVID-19 VACCINE (4 - Booster for Pfizer series) [facility] Start: 08-08-2021 ADVANCE DIRECTIVE DISCUSSION ADVANCE DIRECTIVE DISCUSSION [facility] Start: 08-08-2021 DEPRESSION ASSESSMENT DEPRESSION ASS ESSMENT [facility] Start: 09-07-2019 Shingrix Vaccine (2 of 2) Shingrix Vaccine (2 of 2) [facility] Start: 2007 BONE DENSITY BONE DENSITY [facility] Start: 2007 Pneumococcal 65+ yea rs Vaccine (1 - PCV) Pneumococcal 65+ years Vaccine (1 - PCV) [facility] Start: 2007 Screening for osteoporosis Bone Density Screening [facility] Start: 2002 Respiratory Syncytia l Virus (RSV) or age 60 yrs+ (1 - 1-dose 60+ series) Respiratory Syncytial Virus (RSV) or age 60 yrs+ (1 - 1-dose 60+ series) [facility] Start: 2002 RSV Vaccine (1 - 1-dose 60+ series) RSV Vaccine (1 - 1-dose 60+ series) [facility] Start: 1997 Screening for osteoporosis DEXA (modify frequency per FRAX score) [facility] Start: 1992 Shingles vaccine (1 of 2) Shingles vaccine (1 of 2) [facility] Start: 1987 DIABETES SCREEN DIABETES SCREEN [facility] Start: 1987 Diabetes Screening Diabetes Screenin g [facility] Start: 1961 DTaP/Tdap/Td vaccine (1 - Tdap) DTaP/Tdap/Td vaccine (1 - Tdap) [facility] Start: 1961 SHINGRIX VACCINE (1 of 2) SHINGRIX VACCINE (1 of 2) [facility] Start: 1961 Urine microalbumin profile DTAP,TDAP,TD (1 - Tdap) [facility] Start: 1954 Depression Monitoring Depression Mon itoring [facility] Start: 1953 Screening for malignant neoplasm of cervix Cervical Cancer Screening [facility] Start: 1948 PNEUMOCOCCAL: 65+ (1 - PCV) PNEUMOCOCCAL: 65+ (1 - PCV) [facility] Start: 01-30-1943 COVID-19 VACCINE (#1) COVID-19 VACCI NE (#1) [facility] EKG 12 Lead EKG 12 Lead ECG STAT 09/15/2023 11:15 AM EST [facility] Immunizations Immunization Date Immunization Notes Care Provider [place] [facility] 05-17-2023 influenza, high dose seasonal, preservative-free Edmond Pacheco Other [employer] Other 05-17-2023 influenza virus vaccine, unspecified formulation DO Edmond Pacheco Work Phone: [facility] 10-12-2022 tetanus and diphther ia toxoids, adsorbed, preservative free, for adult use (2 Lf of tetanus toxoid and 2 Lf of diphtheria toxoid) DO Edmond Pacheco Work Phone: [facility] 10-12-2022 tetanus and diphther ia toxoids, adsorbed, preservative free, for adult use (5 Lf of tetanus toxoid and 2 Lf of diphtheria toxoid) Edmond Pacheco Other [employer] Other 04-20-2022 Influenza vaccine, quadrivalent, adjuvanted Edmond Pacheco DO Work Phone: [facility] 04-20-2022 influenza virus vaccine, split virus (incl. purified surface antigen) Edmond Pacheco Other [employer] Other 04-20-2022 influenza virus vaccine, unspecified formulation Inderjit [employer]SH[employer] 03-02-2022 pneumococcal polysaccharide vaccine, 23 valent Inderjit [employer] 07-21-2021 SARS-CoV-2 (COVID-19 ) mRNA BNT-162b2 vax Inderjit PASCALE [employer] 09-25-2020 SARS-CoV-2 (COVID-19 ) mRNA BNT-162b2 vax Inderjit [employer] Comment on above: Result Comment: 2022: [id number] 09-04-2020 SARS-CoV-2 (COVID-19 ) mRNA BNT-162b2 vax Inderjit PASCALE [employer] Comment on above: Result Comment: 2022: [id number] 07-13-2019 zoster vaccine recombinant Inderjit [employer]SH[employer] 06-21-2019 influenza virus vaccine, split virus (incl. purified surface antigen) Edmond Pacheco Other [facility] [employer] Other 06-21-2019 influenza virus vaccine, unspecified formulation DO Edmond Pacheco Work Phone: [facility] 06-21-2019 pneumococcal conjuga te vaccine, 13 valent Edmond Pacheco Other [facility] 04-20-2016 tetanus toxoid, redu bhupendra diphtheria toxoid, and acellular pertussis vaccine, adsorbed Edmond Pacheco Other [facility] 05-06-2015 influenza virus vaccine, split virus (incl. purified surface antigen) Edmond Pacheco Other [employer] Other 05-06-2015 influenza virus vaccine, unspecified formulation DO Edmond Pacheco Work Phone: [facility] 06-18-2014 influenza, injectabl e, quadrivalent, contains preservative Edmond Pacheco DO Work Phone: [facility] Payers Date Payer Category Payer Self-pay [id number] 2020 Medicare UHC MEDICARE UHC MEDICARE ADVANTAGE PPO [id number] 2020-Present [phone] [address] [address] [place] [address] PPO [id number] 2020 Private Health Insurance [id number] 1959 Medicare [id number] 1942 Unknown [id number] 2.16.840.1.165149.3.579.2. 593 1942 Unknown [id number] 2.16.840.1.941666.3.579.2. 593 1942 Unknown [id number] 2.16.840.1.629113.3.579.2. 182 1942 Unknown [id number] 2.16.840.1.252846.3.579.2. 182 1942 Unknown [id number] 2.16.840.1.793788.3.579.2. 182 1942 Unknown [id number] 2.16.840.1.931151.3.579.2. 182 1942 Unknown [id number] 2.16.840.1.212593.3.579.2. 182 1942 Unknown [id number] 2.16.840.1.769544.3.579.2. 727 1942 Unknown [id number] 2.16.840.1.494660.3.579.2. 727 1942 Unknown [id number] 2.16.840.1.360270.3.579.2. 727 1942 Unknown [id number] 2.16.840.1.338829.3.579.2. 727 1942 Unknown [id number] 2.16.840.1.357916.3.579.2. 727 1942 Unknown [id number] 2.16.840.1.410711.3.579.2. 727 1942 Unknown [id number] 2.16.840.1.263508.3.579.2. 727 1942 Unknown [id number] 2.16.840.1.249817.3.579.2. 727 1942 Unknown [id number] 2.16.840.1.108243.3.579.2. 727 1942 Unknown [id number] 2.16.840.1.616161.3.579.2. 727 1942 Unknown [id number] 2.16.840.1.575604.3.579.2. 727 1942 Unknown [id number] 2.16.840.1.166731.3.579.2. 727 1942 Unknown [id number] 2.16.840.1.809976.3.579.2. 727 1942 Unknown [id number] 2.16.840.1.531673.3.579.2. 72 1942 Unknown [id number] 2.16.840.1.263375.3.579.2. 72 1942 Unknown [id number] 2.16.840.1.074374.3.579.2. 72 1942 Unknown [id number] 2.16.840.1.831703.3.579.2 1942 Unknown [id number] 2.16.840.1.484983.3.579.2 1942 Unknown [id number] 2.16.840.1.185426.3.579.2 1942 Unknown [id number] 2.16.840.1.224704.3.579.2 1942 Unknown [id number] 2.16.840.1.042176.3.579.2 72 1942 Unknown [id number] 2.16.840.1.706593.3.579.2. 72 1942 Unknown [id number] 2.16.840.1.063027.3.579.2. 72 1942 Unknown [id number] 2.16.840.1.909715.3.579.2. 1942 Unknown [id number] 2.16.840.1.576896.3.579.2. 72 1942 Unknown [id number] 2.16.840.1.581153.3.579.2. 72 1942 Unknown [id number] 2.16.840.1.586181.3.579.2. 727 Medicare [id number] 2.16.840.1.461750.19 Medicare Medicare [id number] Unknown [id number] 2.16.840.1.945806.3.579.2. 531 Social History Date Type Detail Facility Start: 03-29-2020 End: 03-04-2025 Tobacco smoking status Never smoked tobacco (finding) [facility] Start: 12-12-2021 Tobacco smoking status Never [facility] Start: 01-19-2023 End: 09-15-2023 Sex Assigned At Female [facility] Start: 1940 Sex Assigned At Female F [facility] Start: 11-16-2017 End: 01-19-2023 Tobacco use and exposure Smokeless tobacco non-user [facility] Start: 01-28-2020 End: 09-07-2023 Alcohol intake Current drinker of alcohol (finding) [facility] Start: 08-31-2013 Alcohol Comment beer, wine (3- 4 beers a day on occasion) [facility] Start: 1940 Sex Assigned At Not on file C [facility] Tobacco smoking status [facility] Tobacco smoking consumption unknown [facility] Start: 01-19-2023 End: 09-15-2023 History of Social function [facility] How often to you hav e a drink containing alcohol? Never [facility] Start: 09-28-2023 Alcohol intake Ex-drinker (finding) [facility] Sex Female (finding) [facility] NEGATED: Highlighted rowStart: NINF History of tobacco use Passive smoker [facility] Medical Equipment Procedure Code Equipment Code Equipment Origin al Text Equipment Identifier Dates Lens Iol +21 Niels p 13mm 6mm Pc - [id number] Start: 09-11-2013 Lens Iol +20.5 [employer] Iq - [id number] Start: 02-11-2014 Comment on above: Description: IQ Functional Status Date Assessment Result Facility 07-12-2024 Functional Status N/A [facility] 07-02-2024 Functional Status N/A [facility] 03-02-2024 Functional Status No [facility] 07-10-2023 Functional Status N/A [facility] 07-10-2023 Functional Status [facility] 03-10-2023 Functional Status N/A [facility] 03-10-2023 Functional Status [facility] 05-10-2022 Functional Status No [facility] 05-09-2022 Functional Status [facility] Clinical Notes 05-23-2014 to 07-12-2024 Telephone Encounter - Chaparro Yarbrough OD - 03/12/2024 10:15 AM EDTTelephone Encounter - Chaparro Yarbrough OD - 03/12/2024 10:15 AM EDTTelephone Encounter - Michelle Robbins - 03/09/2024 9:43 AM EDT Note Date & Type Note Facility 07-12-2024 Hospital Discharge instructions Patient Education 07/12/2024 08:05:10 Antibiotic Medicine, Adult Antibiotic Medicine, Adult Antibiotic medicines are used to treat infections caused by bacteria. These medicines do not work for illnesses caused by viruses. Antibiotics work by killing the bacteria that are making you sick, but they can also have serious side effects. Antibiotics must be used safely and only when needed. When do I need to take antibiotics? You may need antibiotics for: A urinary tract infection (UTI). Strep throat. Bacterial sinus infection. Meningitis. Serious lung infections. Your health care provider may start you on antibiotics while you are waiting for test results. Tests may include a culture of the throat, urine, blood, or mucus. Your health care provider may change or stop your antibiotic depending on your test results. When are antibiotics not needed? You do not need antibiotics for most common illnesses. These illnesses may be caused by a virus, not by bacteria. You do not need antibiotics for: The common cold. The flu (influenza). Sore throat. Discolored mucus. Bronchitis. Antibiotics are not always needed for all infections caused by bacteria. Many of these infections clear up on their own. Do not take antibiotics when they are not needed. How long should I take my antibiotic? You must take the entire amount prescribed to you. Take your antibiotics as told by your health care provider. Do not stop taking your antibiotics even if you start to feel better. If you stop taking them too soon: You may feel sick again. Your infection may get harder to treat. Each course of antibiotics needs a different length of time to work. The length of time may vary from a few days to a few weeks. What if I miss a dose? Try not to miss any doses of medicine. If you miss a dose, call your health care provider or pharmacist for help. Sometimes, it is okay to take the missed dose as soon as possible. Do not take double or extra doses. What are the risks of taking antibiotics? Antibiotics can cause: Allergic reactions. Nausea. Yeast infections. Liver problems. Antibiotics can also cause an infection called Clostridioides difficile (C. difficile or C. diff), which causes severe diarrhea. This infection happens when the antibiotics kill the healthy bacteria in your intestines. This allows C. diff to grow. C. diff needs to be treated right away. Let your health care provider know if: You have diarrhea while taking an antibiotic. You have diarrhea after you stop taking an antibiotic. C. diff infection can start weeks after stopping the antibiotic. Taking an antibiotic also puts you at risk for getting sick in the future with bacteria that do not respond to medicine (antibiotic-resistant infection). Antibiotics can cause bacteria to change so that if the antibiotic is taken again, the medicine cannot kill the bacteria. These infections can be more serious because they are hard, or sometimes impossible, to treat. Do antibiotics affect control? control pills may not work while you are taking antibiotics. If you are taking control pills: Keep taking them as usual. Use a second form of control, such as a condom, to avoid unwanted . Do this for as long as told by your health care provider. What else should I know about taking antibiotics? Take antibiotics exactly as told. Take the correct amount of medicine at the same time each day. Ask your health care provider: ?How long to wait between doses. ?If you should take your antibiotic with food or water. ?If you should avoid certain foods, drinks, or medicines while taking your antibiotics. ?If you need to watch for any side effects. Use only the antibiotics prescribed to you by your health care provider. Do not use antibiotics prescribed for someone else. Drink a large glass of water when taking your antibiotics unless told otherwise. Drink enough fluid to keep your urine pale yellow. Ask your pharmacist for a dosage syringe, cup, or spoon that correctly measures your antibiotics. Ask your pharmacist or health care provider how to safely get rid of leftover medicine. Follow these instructions at home: Take your antibiotics as told by your health care provider. Do not stop taking your antibiotics even if you start to feel better. Return to your normal activities as told by your health care provider. Ask your health care provider what activities are safe for you. Contact a health care provider if: Your symptoms get worse. You have new joint pain or muscle aches that begin after starting your antibiotic. You have side effects from your antibiotic, such as: ?Stomach pain. ?Diarrhea. ?Nausea. ?White patches in your mouth or throat. Get help right away if: You have signs of a severe allergic reaction to antibiotics. If you have any of these signs, stop taking the antibiotic right away. Signs may include: ?Raised, itchy, red bumps on your skin (hives). ?Skin rash. ?Trouble breathing. ?High-pitched whistling sounds when you breathe, most often when you breathe out (wheezing). ?Swelling anywhere on your body. ?Feeling dizzy. ?Vomiting. You have signs of liver problems, such as: ?Dark or blood-colored urine. ?Yellow color to your skin. ?Bruising or bleeding easily. You have severe diarrhea, bloody diarrhea, or stomach cramps. You have a severe headache. These symptoms may be an emergency. Get help right away. Call 911. Do not wait to see if the symptoms will go away. Do not drive yourself to the hospital. This information is not intended to replace advice given to you by your health care provider. Make sure you discuss any questions you have with your health care provider. Document Revised: 02/22/2023 Document Reviewed: 02/22/2023 [employer] Patient Education 2023 [employer]. Follow Up Care 07/06/2024 11:33:09 With:CARON CARVAJAL PA-C, URL Address: [address] [place] [address] When: Unknown [facility] 07-02-2024 Hospital Discharge instructions Patient Education 07/02/2024 16:12:38 Urinary Tract Infection, Adult Urinary Tract Infection, Adult A urinary tract infection (UTI) is an infection of any part of the urinary tract. The urinary tract includes the kidneys, ureters, bladder, and urethra. These organs make, store, and get rid of urine in the body. An upper UTI affects the ureters and kidneys. A lower UTI affects the bladder and urethra. What are the causes? Most urinary tract infections are caused by bacteria in your genital area around your urethra, where urine leaves your body. These bacteria grow and cause inflammation of your urinary tract. What increases the risk? You are more likely to develop this condition if: You have a urinary catheter that stays in place. You are not able to control when you urinate or have a bowel movement (incontinence). You are female and you: ?Use a spermicide or diaphragm for control. ?Have low estrogen levels. ?Are . You have certain genes that increase your risk. You are sexually active. You take antibiotic medicines. You have a condition that causes your flow of urine to slow down, such as: ?An enlarged prostate, if you are male. ?Blockage in your urethra. ?A kidney stone. ?A nerve condition that affects your bladder control (neurogenic bladder). ?Not getting enough to drink, or not urinating often. You have certain medical conditions, such as: ?Diabetes. ?A weak disease-fighting system (immunesystem). ?Sickle cell disease. ?Gout. ?Spinal cord injury. What are the signs or symptoms? Symptoms of this condition include: Needing to urinate right away (urgency). Frequent urination. This may include small amounts of urine each time you urinate. Pain or burning with urination. Blood in the urine. Urine that smells bad or unusual. Trouble urinating. Cloudy urine. Vaginal discharge, if you are female. Pain in the abdomen or the lower back. You may also have: Vomiting or a decreased appetite. Confusion. Irritability or tiredness. A fever or chills. Diarrhea. The first symptom in older adults may be confusion. In some cases, they may not have any symptoms until the infection has worsened. How is this diagnosed? This condition is diagnosed based on your medical history and a physical exam. You may also have other tests, including: Urine tests. Blood tests. Tests for STIs (sexually transmitted infections). If you have had more than one UTI, a cystoscopy or imaging studies may be done to determine the cause of the infections. How is this treated? Treatment for this condition includes: Antibiotic medicine. Aqkv-ste-vqngqin medicines to treat discomfort. Drinking enough water to stay hydrated. If you have frequent infections or have other conditions such as a kidney stone, you may need to see a health care provider who specializes in the urinary tract (urologist). In rare cases, urinary tract infections can cause sepsis. Sepsis is a life-threatening condition that occurs when the body responds to an infection. Sepsis is treated in the hospital with IV antibiotics, fluids, and other medicines. Follow these instructions at home: Medicines Take qyka-tap-rtzyhce and prescription medicines only as told by your health care provider. If you were prescribed an antibiotic medicine, take it as told by your health care provider. Do not stop using the antibiotic even if you start to feel better. General instructions Make sure you: ?Empty your bladder often and completely. Do not hold urine for long periods of time. ?Empty your bladder after sex. ?Wipe from front to back after urinating or having a bowel movement if you are female. Use each tissue only one time when you wipe. Drink enough fluid to keep your urine pale yellow. Keep all follow-up visits. This is important. Contact a health care provider if: Your symptoms do not get better after 1 2 days. Your symptoms go away and then return. Get help right away if: You have severe pain in your back or your lower abdomen. You have a fever or chills. You have nausea or vomiting. Summary A urinary tract infection (UTI) is an infection of any part of the urinary tract, which includes the kidneys, ureters, bladder, and urethra. Most urinary tract infections are caused by bacteria in your genital area. Treatment for this condition often includes antibiotic medicines. If you were prescribed an antibiotic medicine, take it as told by your health care provider. Do not stop using the antibiotic even if you start to feel better. Keep all follow-up visits. This is important. This information is not intended to replace advice given to you by your health care provider. Make sure you discuss any questions you have with your health care provider. Document Revised: 03/01/2021 Document Reviewed: 03/06/2021 [employer] Patient Education 2023 [employer]. 07/02/2024 16:12:28 ESBL Infection ESBL Infection ESBL (extended-spectrum beta-lactamase) is an enzyme that is made by some types of bacteria. This enzyme breaks down some antibiotic medicines, making them unable to kill the bacteria or treat the infection. The two most common types of bacteria that make ESBL in the stomach and intestines (gastrointestinal tract, or GI tract) are E. coli and Klebsiella pneumoniae. These types of bacteria help break down food so it can be used by the body for energy. Normally, they do not cause infection unless there are too many bacteria, or unless the bacteria travel to other parts of the body where they are not normally found. ESBL infections are hard to treat. Bacteria that make ESBL are sometimes called super bugs because they are very hard to get rid of. Lab tests must be done to find the type of ESBL bacteria that is causing the infection and the right antibiotic medicine that will treat it. What are the causes? This condition is caused by certain types of bacteria that make ESBL enzymes as a way to survive the effects of antibiotics. This type of infection is most commonly caused by E. coli and Klebsiella pneumoniae bacteria, which make the ESBL enzymes. ESBL bacteria can live outside the body, on the skin, or on other surfaces. People who are infected with ESBL bacteria may shed the bacteria in their stool (feces) or in body fluids such as urine or blood. These bacteria can be spread to surfaces, such as bedding, medical equipment, countertops, and bathroom fixtures. The bacteria can also be spread by direct contact with hands or body fluids that have the bacteria on or in them (are contaminated). What increases the risk? You may be more likely to develop this condition if: You are now or have recently been admitted to a hospital, prison, or other health care facility. You have another illness or a weakened disease-fighting system (immune system). You have drains or tubes placed in your body. You have used antibiotics before. You have sores or open wounds. You have traveled to a place where ESBL germs are more commonly found. What are the signs or symptoms? Conditions that can be caused by ESBL-producing bacteria include diarrhea, skin infections, pneumonia, and urinary tract infections (UTIs). Symptoms depend on the location and type of infection and may include: Fever. Chills. Needing to urinate often or feeling burning with urination. Reddened, warm skin around the site of infection. Diarrhea, extra gas, or bloating. Nausea, vomiting, or loss of appetite. Not knowing the time of day, where you are, or who you are (feeling disoriented). How is this diagnosed? This condition is diagnosed with a physical exam and lab testing. You may have a blood, urine, or stool sample taken. Samples can be looked at under a microscope by trained health care providers who can determine the type of bacteria growing in the samples. These samples can also be tested to see if certain antibiotic medicines can kill the bacteria. How is this treated? ESBL infections can be treated after the right antibiotic medicine is found that can kill the bacteria. Antibiotic medicines may be given at home or in the hospital. Some of these medicines can be taken by mouth, and others must be given through an IV. Follow these instructions at home: Take your antibiotic medicine as told by your health care provider. Do not stop taking the antibiotic even if you start to feel better. This is important. Rest. Practice ways to keep clean (good hygiene). Prevent spread. Keep all follow-up visits. This is important. How is this prevented? Preventing ESBL infections in hospitals To prevent the spread of ESBL infections, health care providers will: Wash their hands with soap and water for at least 20 seconds, or clean their hands with an alcohol-based hand incident engineer, before they enter or leave your room. Clean and disinfect your room and the medical equipment that is being used for your care. Put a sign on your door to let visitors and health care providers know to use safety measures (contact precautions) when they care for you. This means health care providers will: ?Put you in a private room. ?Put on a gown with long sleeves and wear gloves when they care for you, and then remove the gloves and gown before leaving your room. ?Ask your visitors to wear a gown and gloves, if the visitors will help care for you. ?Ask your visitors to wash or sanitize their hands before they enter or leave your room. ?Ask you not to leave your room to visit other parts of the hospital. Preventing ESBL infections at home You can help to prevent the spread of ESBL bacteria by: Reminding health care providers, cleaning staff, and visitors to wash their hands with soap and water for at least 20 seconds, or clean their hands with an alcohol-based hand incident engineer, before they enter or leave your room. Taking antibiotics exactly as told by your health care provider. Washing your hands with soap and water for at least 20 seconds, or cleaning your hands with an alcohol-based hand incident engineer, after you do any of these things: ?Use the bathroom. ?Touch or come in contact with your stool or body fluids. ?Touch medical equipment or surfaces that may have come in contact with your stool or body fluids. ?Touch or care for wounds or open sores. ?Touch or care for tubes or drains that are placed in your body. Preventing the spread of ESBL infections to visitors Visitors are at risk for infection if they come in contact with unclean surfaces or equipment, or with your stool or body fluids, while they are in your room. The risk of infection is higher if visitors then touch openings in their own bodies, such as their eyes, nose, mouth, or a sore. Doing that can let the bacteria enter their bodies. Casual contact, such as hugging or touching, will not spread ESBL. Summary ESBL is an enzyme that is made by some types of bacteria. ESBL infections are hard to treat. Bacteria that make ESBL are sometimes called super bugs because they are very hard to get rid of. Lab tests must be done to find the type of ESBL bacteria that is causing the infection and the right antibiotic medicine that will treat it. You can help stop the spread of ESBL infection by washing your hands often with soap and water for at least 20 seconds or cleaning your hands with an alcohol-based hand incident engineer, especially after using the bathroom. This information is not intended to replace advice given to you by your health care provider. Make sure you discuss any questions you have with your health care provider. Document Revised: 12/05/2020 Document Reviewed: 12/06/2020 [employer] Patient Education 2023 [employer] 07/02/2024 16:12:27 Antibiotic Resistance Antibiotic Resistance Antibiotics are medicines that treat infections caused by bacteria. Antibiotic resistance means that the antibiotic that would normally treat the infection no longer works. When this happens: The bacteria may grow. The resistant bacteria may cause more serious infections. The resistant bacteria become very hard to treat. What are the causes? This condition happens when bacteria come into contact with an antibiotic over and over again. Over time, the bacteria become resistant to the antibiotic. This can happen when antibiotics are: Given for a bacterial illness that does not need antibiotics. Given incorrectly for a viral illness, like a cold or the flu (influenza). Used in the wrong way. What increases the risk? This condition is more likely to develop in people who: Are often given antibiotics for viral infections. Do not take their antibiotics exactly as told. Take medicines that weaken their body's defense system (immune system). Are older adults. Need to take antibiotics because they: ?Have a long-term (chronic) medical condition. ?Need to lessen the chance of infection while having certain medical treatments. Treatments may include chemotherapy, dialysis, surgery, or an organ transplant. Other risk factors: Having a type of infection that is more likely to be caused by resistant bacteria. These may include certain: ?Skin infections. ?STIs (sexually transmitted infections). ?Infections of the stomach or intestines. ?Respiratory infections. ?Meningitis. Eating foods from animals that were treated with antibiotics. Antibiotic-resistant bacteria can be passed through the food. Living with, or caring for, a person with an antibiotic-resistant infection. Being in the hospital for a long time or living in a long-term care facility. What are the signs or symptoms? The main symptom is having an infection that does not get better with normal treatment. The specific signs and symptoms depend on the type of infection. They may include: A fever. Nausea. Vomiting. Stomach pain. A wound or incision that: ?Is warm, red, and tender. ?Has brown, yellow, or green fluid coming from it. ?Has a bad smell coming from it. How is this diagnosed? This condition may be diagnosed based on your symptoms and medical history. Your health care provider may think you have antibiotic resistance if your infection does not get better after treatment. You may also have other tests, including: Fluid or stool (feces) analysis. This checks for bacteria under a microscope. It also finds what type of antibiotic will treat the infection or illness (culture and sensitivity test). Blood and imaging tests. These are done to check if your infection has spread or become more serious. How is this treated? Treatment depends on the specific infection. Treatment may include: Taking broad-spectrum antibiotics. These kill more types of bacteria. Staying in the hospital. Severe cases may need: ?Surgery to remove infected or damaged tissue. ?Antibiotics or other medicines given through an IV. Follow these instructions at home: Take antibiotics correctly Know when antibiotics are needed and when they are not. Do not ask for antibiotics if you have a viral illness. Antibiotics will not make these infections go away faster. Ear infections, sinus infections, bronchitis, and influenza are all caused by viruses. Do not take, or save, antibiotics that are left over from a past prescription. Ask your health care provider how to safely get rid of the extra medicine. Do not take antibiotics that are not yours. If you are prescribed antibiotics, take them as told by your health care provider. Do not stop using the antibiotic even if you start to feel better. If you have been taking your medicine for more than 10 days, ask your health care provider if you should keep taking it. Prevent infection If you have an infection, avoid close contact with people. Avoid using personal things that are used by other people, such as towels, razors, or bedding. Disinfect doorknobs, bathrooms, and surfaces you put food on. Use products that have bleach in them. Wash your hands with soap and water for at least 20 seconds. Wash your hands: ?After using the bathroom. ?Before and after caring for a wound or incision. ?Before and after touching food. Stay up to date on vaccinations. Many vaccines prevent illnesses that are treated with antibiotics. Contact a health care provider if: You have a fever. You have chills. You are taking a new antibiotic and do not get better after a few days. You have diarrhea 3 or more times after you start a new antibiotic. You have any infection signs. You have new or worsening nausea, vomiting, or stomach pain. Get help right away if: You have a rash. Your mouth or tongue itches. You have a tight feeling in your throat. You have trouble breathing. You have chest pain or tightness. You are dizzy or faint. These symptoms may be an emergency. Get help right away. Call 911. Do not wait to see if the symptoms will go away. Do not drive yourself to the hospital. This information is not intended to replace advice given to you by your health care provider. Make sure you discuss any questions you have with your health care provider. Document Revised: 02/22/2023 Document Reviewed: 02/22/2023 [employer] Patient Education 2023 [employer]. Follow Up Care 07/02/2024 09:46:39 With:JANETTE CAMACHO, CARON Kwan, URL Address: [address] [address] When: Unknown Comments:F/u in 3 months [facility] 07-02-2024 Note Urology Office/Clini c Note Chief Complaint Referral HPI Staff 83 year old female Referred by Tobi Pacheco DO for Cystitis. Pt. c/o urgency, urge incontinence ( with UTI urge incontinence is worse). Pt. daughter states when Pt. has UTI she will fall a lot and fever. Pt. last UTI she got IV ABX for treatment. PVR 125mL Abx w/o Cx: 01/11 - Keflex 01/27, 02/02, 02/26 - Macrobid C&S 01/31 neg 03/25 Klebsiella - Cefdinir 04/12 E Coli - Macrobid 05/04 E Coli - Cefdinir 05/15 E Coli - Cefdinir 06/01 ESBL E Coli - Ertapenem IM x 10d 06/18/24 neg 06/29/24 - UA +leuks, nitrites, blood (Ucx not sent) UA today - mod leuks, + nitrites, small blood 8 rounds oral 1 round IM abx since January. History of Present Illness I have reviewed and verified the staff HPI to be accurate for this encounter. Review of Systems PHQ Score Initial Depression Screen Score: 0 SCORE per daughter no fever. good po intake. stable mentation. 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 Pt has hx of dementia, daughter present. Lives at [facility]. 1. Recurrent UTI (N39.0: Urinary tract infection, site not specified) Abx w/o Cx: 01/11 - Keflex 01/27, 02/02, 02/26 - Macrobid C&S 01/31 neg 03/25 Klebsiella - Cefdinir 04/12 E Coli - Macrobid 05/04 E Coli - Cefdinir 05/15 E Coli - Cefdinir 06/01 ESBL E Coli - IM Ertapenem 1 gm qd x 10 d 06/18/24 UA neg (finished ertapenem) 06/29/24 - UA +leuks, nitrites, blood (UCx not sent) 8 rounds oral / 1 round IM abx since January. UA today looks infected - mod leuks, +nitrites, small blood PVR 125 mL Pt here w/ daughter today. History obtained by daughter d/t pt being a poor historian/dementia. Daughter states pt has been dealing w/ recurrent UTIs for the past few years, worse in the last year since she has been in assisted living. 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 Last UTI 06/01 +ESBL E. Coli, pt had to be tx w/ IM Ertapenem x 10 D which cleared the infection (UA negative post-tx). Pt wears briefs and is incontinent at times, daughter thinks staff does a good job at changing her frequently. However daughter does admit pt w/ poor hygiene, wipes back to front - unable to change habit at this age/w her dementia. UA in office today suspicious for UTI no signs of sepsis. current UTI symptoms no UTI frequency almost every month UTIs started worsening in the past 6-12 mos Prior to that averaged UTIs couple times per year pt's typical UTI sx include: daughter notices increased falls/maybe confusion(Dementia baseline) hx stones no immunosuppressed yes - pt on remicade infxns - last tx 01/2024 post-menopausal/hysterectomy yes proper hygiene habits: wipes front to back every time no / incontinent of urine, changes Difficult situation given hx of ESBL UTI w resistance to all PO ABX, incontinence and poor hygiene habits in someone w dementia. Today we discussed the following options to reduce frequency of UTIs: -Order KUB/SANTIAGO to r/o stones as contributing factor for UTI. Will call pt w/ results -Start OTC supplements - cranberry, probiotics, and d-mannose -Start Estrace cream. SE, risks/benefits discussed. Rx sent to pharmacy -Referral to Infectious Disease (Dr. Ware) given hx of ESBL UTI & resistance to PO ABX -Briefly discussed starting methenamine at following visit if infection clears by this time, suggested taking Vitamin C in the meantime to lower urine pH -Good hygiene habits as best as realistic w dementia limitations - change briefs regularly, wipe front to back -Increase fluids. Unfortunately, pt looks infected today. Will send for UCx. No ATB started today given hx of resistance. Will await culture results before treating. Pt advised if develops fever, severe flank pain, vomiting - needs to go to ER. 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 Urinary incontinence (R32: Unspecified urinary incontinence) See #1. Pt wears briefs and is incontinent at times, nursing staff changes 6x/day. Pt does feel sensation to urinate at times 4. Dementia (F03.90: Unspecified dementia, unspecified severity, without behavioral disturbance, psychotic disturbance, mood disturbance, and anxiety) See #1. Poor historian, unable to communicate her UTI symptoms. I, Ant Bruner PA-C personally scribed Caron Carvajal PA-C 07/02/2024 16:16:49. Electronically signed by jeet Mcmanus 07/02/2024 16:16:49. Documentation recorded by the scribaniya Bruner PA-C_ accurately reflects the services(s) I performed and decisions made by me. Authenticated by Lakshmi (more content not included)... [facility] Comment on above: Result Comment: Elec tronically Signed By: CARON CARVAJAL PA-C\.br\Date and Time Signed: 07/02/24 16:36 EST\.br\Electronically Co-Signed By: Ant Bruner PA-C\.br\Date and Time Co-Signed: 07/02/24 16:24 EST 07-02-2024 Note Patient Education Infectious Disease ESBL Infection ESBL (extended-spectrum beta-lactamase) is an enzyme that is made by some types of bacteria. This enzyme breaks down some antibiotic medicines, making them unable to kill the bacteria or treat the infection. The two most common types of bacteria that make ESBL in the stomach and intestines (gastrointestinal tract, or GI tract) are E. coli and Klebsiella pneumoniae. These types of bacteria help break down food so it can be used by the body for energy. Normally, they do not cause infection unless there are too many bacteria, or unless the bacteria travel to other parts of the body where they are not normally found. ESBL infections are hard to treat. Bacteria that make ESBL are sometimes called super bugs because they are very hard to get rid of. Lab tests must be done to find the type of ESBL bacteria that is causing the infection and the right antibiotic medicine that will treat it. What are the causes? This condition is caused by certain types of bacteria that make ESBL enzymes as a way to survive the effects of antibiotics. This type of infection is most commonly caused by E. coli and Klebsiella pneumoniae bacteria, which make the ESBL enzymes. ESBL bacteria can live outside the body, on the skin, or on other surfaces. People who are infected with ESBL bacteria may shed the bacteria in their stool (feces) or in body fluids such as urine or blood. These bacteria can be spread to surfaces, such as bedding, medical equipment, countertops, and bathroom fixtures. The bacteria can also be spread by direct contact with hands or body fluids that have the bacteria on or in them (are contaminated). What increases the risk? You may be more likely to develop this condition if: ??? You are now or have recently been admitted to a hospital, prison, or other health care facility. ??? You have another illness or a weakened disease-fighting system (immune system). ??? You have drains or tubes placed in your body. ??? You have used antibiotics before. ??? You have sores or open wounds. ??? You have traveled to a place where ESBL germs are more commonly found. What are the signs or symptoms? Conditions that can be caused by ESBL-producing bacteria include diarrhea, skin infections, pneumonia, and urinary tract infections (UTIs). Symptoms depend on the location and type of infection and may include: ??? Fever. ??? Chills. ??? Needing to urinate often or feeling burning with urination. ??? Reddened, warm skin around the site of infection. ??? Diarrhea, extra gas, or bloating. ??? Nausea, vomiting, or loss of appetite. ??? Not knowing the time of day, where you are, or who you are (feeling disoriented). How is this diagnosed? This condition is diagnosed with a physical exam and lab testing. You may have a blood, urine, or stool sample taken. Samples can be looked at under a microscope by trained health care providers who can determine the type of bacteria growing in the samples. These samples can also be tested to see if certain antibiotic medicines can kill the bacteria. How is this treated? ESBL infections can be treated after the right antibiotic medicine is found that can kill the bacteria. Antibiotic medicines may be given at home or in the hospital. Some of these medicines can be taken by mouth, and others must be given through an IV. Follow these instructions at home: ??? Take your antibiotic medicine as told by your health care provider. Do not stop taking the antibiotic even if you start to feel better. This is important. ??? Rest. ??? Practice ways to keep clean (good hygiene). ??? Prevent spread. ??? Keep all follow-up visits. This is important. How is this prevented? Preventing ESBL infections in hospitals To prevent the spread of ESBL infections, health care providers will: ??? Wash their hands with soap and water for at least 20 seconds, or clean their hands with an alcohol-based hand incident engineer, before they enter or leave your room. ??? Clean and disinfect your room and the medical equipment that is being used for your care. ??? Put a sign on your door to let visitors and health care providers know to use safety measures (contact precautions) when they care for you. This means health care providers will: ? Put you in a private room. ? Put on a gown with long sleeves and wear gloves when they care for you, and then remove the gloves and gown before leaving your room. ? Ask your visitors to wear a gown and gloves, if the visitors will help care for you. ? Ask your visitors to wash or sanitize their hands before they enter or leave your room. ? Ask you not to leave your room to visit other parts of the hospital. Preventing ESBL infections at home You can help to prevent the spread of ESBL bacteria by: ??? Reminding health care providers, cleaning staff, and visitors to wash their hands wi (more content not included)... [facility] 05-15-2024 Evaluation + Plan note Diagnostic Tests PendingUrine Culture 05/15/24 [facility] 05-04-2024 Evaluation + Plan note Diagnostic Tests PendingUrine Culture 05/04/24 [facility] 03-14-2024 Note Echocardiology Procedure Exam Date/Time Accession # Ordering Echo Transthoracic w/ 03/14/2024 14:23 EDT [id number] Gera Thomas PA-C Contrast CPT code 01410 C8929 Reason for Exam (Echo Transthoracic w/ Contrast) Shortness of breath, Edema, Dizziness R60.0;Evaluate Ejec Fraction Report [facility] [address] [place] [address] Adult Echocardiogram Report Name: CARIDAD GLOVER I Study Date: 03/14/2024 01:07 PM BP: 143/63 mmHg Patient Location: [facility] HR: 59 : 1940 Gender: Female Height: 60 in Age: 83 yrs Ethnicity: [facility] [place] Weight: 208 lb Reason For Study: Evaluate Ejec Fraction BSA: 1.9 m2 History: CVA,Alcohol use Ordering Physician: Mathew^Jagruti Referring Physician: Gera Thomas Performed By: Carla Fox, MARSHALL, RVT Interpretation Summary Image enhancing agent used for endocardial delineation. Left ventricular systolic function is normal. Ejection Fraction = >70%. Grade I diastolic dysfunction, (abnormal relaxation pattern). There is mild tricuspid regurgitation. There is moderate pulmonary hypertension. Estimated RVSP is 45-50 mmHg. Procedure A complete two-dimensional transthoracic echocardiogram was performed using contrast (2D, M-mode, spectral and color flow Doppler). Left Ventricle The left ventricle is normal in size. There is normal left ventricular wall thickness. Left ventricular systolic function is normal. Ejection Fraction = >70%. The left ventricular wall motion is normal. Grade I diastolic dysfunction, (abnormal relaxation pattern). Left Atrium The left atrial size is normal. There is no atrial septal defect. Echocardiology Report Right Atrium Right atrial size is normal. Right Ventricle The right ventricular systolic function is normal. The right ventricle is normal size. Aortic Valve Not well visualized. No aortic regurgitation. There is no aortic stenosis. Mitral Valve Not well visualized. There is no mitral regurgitation noted. No mitral valve stenosis. Tricuspid Valve Not well visualized. There is mild tricuspid regurgitation. There is moderate pulmonary hypertension. Estimated RVSP is 45-50 mmHg. No evidence of tricuspid stenosis. Pulmonic Valve Not well visualized. Arteries The aortic root is normal in size. Normal ascending aorta. Effusion There is no pericardial effusion. MMode/2D Measurements & Calculations RVDd: 2.3 cm LVIDd: 4.8 cm FS: 32.5 % Ao root diam: 3.2 cm IVSd: 0.93 cm LVIDs: 3.3 cm EDV(Teich): 109.1 ml Ao root area: 8.1 cm2 LVPWd: 0.95 cm ESV(Teich): 42.9 ml LA dimension: 3.1 cm EF(Teich): 60.7 % asc Aorta Diam: 3.1 cm LVOT diam: 1.9 cm LVLd ap4: 7.4 cm EDV(MOD-sp2): 96.9 ml LVOT area: 3.0 cm2 EDV(MOD-sp4): 120.0 ml ESV(MOD-sp2): 26.9 ml LVLs ap4: 5.6 cm EF(MOD-sp2): 72.2 % ESV(MOD-sp4): 25.8 ml EF(MOD-sp4): 78.5 % SV(MOD-sp4): 94.2 ml TAPSE: 1.8 cm Ao Sinus of Valsalva: 3.1 cm Ao Sinotubular Junction: 2.6 cm IVC Diam: 1.7 cm RVIDd/LVIDd: 0.48 EF (MOD-bp): 75.5 % LA Vol Index: 31.2 ml/m2 Doppler Measurements & Calculations MV E max darryl: 89.5 cm/sec MV dec time: 0.22 sec Ao V2 max: 157.0 cm/sec LV V1 max P.2 mmHg MV A max darryl: 85.7 cm/sec Ao max P.9 mmHg LV V1 mean P.0 mmHg MV E/A: 1.0 Ao V2 mean: 103.0 cm/sec LV V1 max: 89.4 cm/sec Lat Peak E' Darryl: 7.3 cm/sec Ao mean P.0 mmHg LV V1 mean: 58.3 cm/sec Echocardiology Report E/E' Lat: 12.3 Ao V2 VTI: 35.3 cm LV V1 VTI: 20.2 cm Med Peak E' Darryl: 4.9 cm/sec E/E' Med: 18.3 LAINE(I,D): 1.7 cm2 LAINE(V,D): 1.7 cm2 SV(LVOT): 60.3 ml TR max darryl: 313.6 cm/sec RAP systole: 3.0 mmHg AV VR: 0.57 TR max P.3 mmHg LAINE(VTI)/BSA_phl: 0.95 RVSP(TR): 42.3 mmHg FINAL REPORT Dictated: 03/14/2024 1:07 pm David Calderon MD Signed (Electronic Signature): 03/14/2024 3:26 pm Signed by: David Calderon MD Transcribed by: CECILE Technologist: [facility] 03-12-2024 Telephone encounter Note Rx sent in [facility] 03-12-2024 Miscellaneous Notes Rx sent in Patient has been reminded to check with pharmacy 24 to 48hr after request. Pt is identified by name and birthdate: Yes Patient phones requesting refills as follows: Requested Prescriptions Pending Prescriptions Disp Refills latanoprost (XALATAN) 0.005 % ophthalmic solution 2.5 mL 11 Sig: Use 1 Drop in both eyes once daily. Please review and advise. documented in this encounter [facility] 03-09-2024 Telephone encounter Note Patient has been reminded to check with pharmacy 24 to 48hr after request. Pt is identified by name and birthdate: Yes Patient phones requesting refills as follows: Requested Prescriptions Pending Prescriptions Disp Refills latanoprost (XALATAN) 0.005 % ophthalmic solution 2.5 mL 11 Sig: Use 1 Drop in both eyes once daily. Please review and advise. [facility] 09-15-2023 Hospital Discharge instructions Dennise Sol DO - 09/15/2023 11:19 AM EST Please call the facility physician for a reexamination Return to the emergency department if she develops worsening confusion beyond her baseline, headache, dizziness, blurry vision, neck or back pain, numbness or weakness, slurred speech, chest pain or shortness of breath, abdominal pain, nausea vomiting, fevers or chills or other symptoms or concerns The following attachments cannot be sent through Care Everywhere.Fall Prevention ([place])documented in this encounter [facility] 09-07-2023 Note HNO ID: [id number] Author: CHAPARRO YARBROUGH OD Service: ? Author Type: COD CLERK Type: Progress Notes Filed: 09/07/2023 12:53 Note Text: (H40.003) Glaucoma suspect of both eyes (primary encounter diagnosis) Comment: stable IOP a little elevated due to noncompliance per daughter Plan:Optic nerve a appears stable Follow up in 12 months with ON OCT (H35.373) Epiretinal membrane (ERM) of both eyes Comment: stable On MAC OCT Plan: monitor (H35.8432) Intermediate stage nonexudative age-related macular degeneration of both eyes Comment: moderate drussen and rpe changes Plan: monitor in 12 month with Mac OCT (H26.493) PCO (posterior capsular opacification), bilateral Comment: still off axis OU Plan: monitor (R44.1) Visual hallucinations Comment 2/2 to reduced vision and cognitive changes Plan reassured pt daughter no treatment needed Pt unable to identify pictures at 20/400 2/2 cognitive issues I have confirmed and edited as necessary the relevant ophthalmic history, ROS, and the neuro exam findings as obtained by others. I have seen and examined this patient. I have discussed the case and the management of this patient's care with the Resident/Fellow, if applicable. I also have reviewed and agree with the assessment and plan as stated above and agree with all of its relevant components. Chaparro Yarbrough, OD September 07, 2023 12:50 PM [facility] 08-31-2023 Note Admission and Discha rge Information Admitting Physician - Reuben DREW DO Consulting Physician - Austyn Campos MD Admitting Diagnoses: Discharge Diagnoses 1. Dementia, 08/28/2023 2. History of CVA in adulthood, 08/28/2023 3. Hypertension, 08/28/2023 4. Compulsive skin picking, 08/28/2023 5. History of PSVT (paroxysmal supraventricular tachycardia), 08/28/2023 6. Obstructive sleep apnea, 08/28/2023 7. Lumbar spinal stenosis, 08/28/2023 8. Anxiety and depression, 08/28/2023 9. Psoriatic arthritis, 08/28/2023 10. Chronic GERD, 08/28/2023 11. Obesity, 08/28/2023 12. Encounter for deep vein thrombosis (DVT) prophylaxis, 08/28/2023 Altered mental status, 08/27/2023 Depression, unspecified, 08/28/2023 Procedure History Closed reduction of nasal fracture (02/05/2021), Helene osteotomy second and third metatarsal. capsulotomy third metatarsophalangeal joint. Helene osteotomy second metatarsophalangeal joint. proximal interphalangeal joint arthroplasty left second digit and to the left third digit (09/19/2014), Cataract (2012), Back, Right hammer toe and bunionectomy, RIght knee arthroscopy, tubal ligation. Hospital Course This is an 83-year-old female with a medical history significant for Lewy body dementia who was admitted for long-term placement. Was seen with neurology. Will send her to long-term facility. Placed her on Seroquel 25 mg in the afternoon and 12.5 mg at night. He may require titration of Seroquel. Excepted to [facility]. She was discharged in stable condition. - On day of discharge patient was vitally, hemodynamically clinically stable. - Follow Up Patient is to follow up with Neurology Patient is to follow up with PCP for transition of care - Discharge Instructions: Given Discharge Medications: Reviewed Discharge Status: Improved Discharge disposition: LTC - Prescriptions reviewed with Patient - 32 minutes time spent in discharge timing. Services Consulted Consult to Neurology - Ordered -- 08/28/23 10:00:00 EST, dementia hx, worsening, Consult and Co-manage Consult to [employer] Consultant - Completed -- 08/28/23 0:39:00 EST, Other Physical Exam Vitals & Measurements T: 36.8 ?C(Oral) TMIN: 36.5 ?C(Oral) TMAX: 36.9 ?C(Oral) HR: 81(Monitored) RR: 16 BP: 130/80 SpO2: 95% General: alert, no acute distress Psychiatric: cooperative, affect appropriate for age Neurological: awake, alert, oriented to person only Cardiovascular: no overt murmurs Respiratory: no adventitious breath sounds Gastrointestinal: soft NT, NG, NR Extremities: no rash Tests Performed Quantiferon-TB Plus (Client Incubated) -- Results Pending -- XR Chest Single View Please visit your patient portal for your results or contact your primary care physician. Discharge Plan Patient Discharge Condition Stable Discharge Disposition Discharge To, Anticipated II - Intermediate Care/ECF Transported by, Anticipated - Family Discharge Diet Discharge Diet(s): Regular (08/31/23 11:59:00) Discharge Medication List Prescriptions Melatonin 1 mg oral tablet, 1 mg, Oral, Once a day (at bedtime) Home aspirin 81 mg Oral EC Tab, 81 mg= 1 tab(s), Oral, Daily busPIRone 15 mg Tab, 15 mg= 1 tab(s), Oral, BID latanoprost Opth 0.005% Batool, See Instructions Lexapro 20 mg Tab, 20 mg= 1 tab(s), Oral, Daily Multiple Vitamins Tab, 1 tab(s), Oral, Daily Norvasc 2.5 mg Tab, 5 mg= 2 tab(s), Oral, Daily omeprazole 20 mg Cap-DR, 20 mg= 1 cap(s), Oral, qAM Remicade, Not taking SEROquel 25 mg Tab, 12.5 mg, Oral, Daily SEROquel 25 mg Tab, 12.5 mg= 0.5 tab(s), Oral, Bedtime Follow-up With When Contact Information Andres RODRIGUEZ, LEATHA Zaman Within 2 to 4 weeks [address] [id number] [place] [address]- Additional Instructions: [facility] Comment on above: Result Comment: Elec tronically Signed By: Davy RODRIGUEZ, Alex\.br\Date and Time Signed: 08/31/23 11:59 EST 08-30-2023 Note PT Evaluation done t his date. Pt. with on AM-PAC. Needs cues and supervision for safety with all activities due to dementia. Recommend 28/02 supervision but no further PT needs. [facility] 08-29-2023 Note Chief Complaint I had a fall couple of weeks ago Reason for Consultation worsening dementia History of Present Illness From the H&P: Patient is an 83-year-old female with past medical history of dementia who I was asked to see in neurological consultation for increasing confusion. Patient was admitted to the hospital last month for increasing confusion and was placed in an assisted living facility. Patient's daughter states for the last week she has had increasing confusion and has been increasingly agitated. Patient was found outside wandering near the assisted living today and daughter is concerned that they do not have the ability to care for her anymore. They do note concern for possible UTI. Has not had any cough, fevers. Review of Systems GEN: No fevers or chills. CV/PULM: No chest pain. No shortness of breath. No palpitations. NEURO: No headaches. Yes hallucinations. No loss of vision. No double vision. No dysphagia. No speech changes. No focal weakness. No sensory loss. Physical Exam Vitals & Measurements T: 36.5 ?C(Oral) TMIN: 36.4 ?C(Oral) TMAX: 36.9 ?C(Oral) HR: 91(Monitored) BP: 128/76 SpO2: 93% WT: 90.1 kg GEN: General appearance normal. Well-kempt. No distress. No visualized deformities or trauma. CARDIO/VASC: Limbs without significant edema and appear well-perfused. PULM: Normal work of breathing. SKIN: Visualized skin is intact and without lesions aside from age-related findings. MS: Affect is normal. Patient is alert. Not oriented to [place], year, or month. Attention seems fairly normal and she is able to follow simple commands without difficulty. LANG: Speech is fluent and non-dysarthric. EYES: Pupils equal/reactive/consensual. Ocular motility full. No pathologic nystagmus. Visual fan are full to finger counting. CN: Facial sensation normal. Hearing acuity normal. Face without droop and with normal motor function. MOTOR: Muscle bulk normal. Muscle tone normal. Muscle strength normal. No witnessed tremors. REFLEXES: No pathologic reflexes. SENSORY: Light touch normal. Vibratory sensation intact in distal extremities. CEREBELLAR: No limb ataxia. Assessment/Plan ASSESSMENT: 83-year-old woman with history of dementia, most likely Lewy body dementia. Ongoing visual hallucinations. Here with increased confusion and agitation and was found outside wandering. Currently not oriented to place, month, or year. PLAN: Continue on the Seroquel 25 mg nightly. No other recommendations at this time. 1. Dementia (F03.90: Unspecified dementia, unspecified severity, without behavioral disturbance, psychotic disturbance, mood disturbance, and anxiety) 2. History of CVA in adulthood (Z86.73: Personal history of transient ischemic attack (TIA), and cerebral infarction without residual deficits) 3. Hypertension (I10: Essential (primary) hypertension) 4. Compulsive skin picking (F42.4: Excoriation (skin-picking) disorder) 5. History of PSVT (paroxysmal supraventricular tachycardia) (Z86.79: Personal history of other diseases of the circulatory system) 6. Obstructive sleep apnea (G47.33: Obstructive sleep apnea (adult) (pediatric)) 7. Lumbar spinal stenosis (M48.061: Spinal stenosis, lumbar region without neurogenic claudication) 8. Anxiety and depression (F41.9: Anxiety disorder, unspecified) 9. Psoriatic arthritis (L40.50: Arthropathic psoriasis, unspecified) 10. Chronic GERD (K21.9: Gastro-esophageal reflux disease without esophagitis) 11. Obesity (E66.9: Obesity, unspecified) 12. Encounter for deep vein thrombosis (DVT) prophylaxis (Z29.9: Encounter for prophylactic measures, unspecified) Depression, unspecified (F32.A: Depression, unspecified) Problem List/Past Medical History Ongoing Alcohol use disorder Benign neoplasm of colon Cerebrovascular disease Dementia Glaucoma Herpes labialis History of ventricular tachycardia Immunodeficiency due to treatment with immunosuppressive medication Lumbar spondylosis Neurodermatitis Nocturia Obesity Obstructive sleep apnea syndrome Psoriatic arthritis Psychophysical visual disturbance Recurrent falls Urinary frequency Visual hallucinations Historical Deformity of metatarsal Diabetes mellitus without complication Ventricular tachycardia Procedure/Surgical History Closed reduction of nasal fracture (02/05/2021), Helene osteotomy second and third metatarsal. capsulotomy third metatarsophalangeal joint. Helene osteotomy second metatarsophalangeal joint. proximal interphalangeal joint arthroplasty left second digit and to the left third digit (09/19/2014), Cataract (2012), Back, Right hammer toe and bunionectomy, RIght knee arthroscopy, tubal ligation. Medications Inpatient acetaminophen 325 mg Tab, 650 mg= 2 tab(s), Oral, q6hr, PRN enoxaparin 40 mg/0.4 mL SC Batool, 40 mg= 0.4 mL, SubCutaneous, Daily metoprolol 1 mg/mL Inj, 5 mg= 5 mL, IV Push, q4hr, PRN SEROquel 25 mg Tab, 25 mg= 1 tab(s), Oral, Bedtime Sodium Chlori (more content not included)... [facility] Comment on above: Result Comment: Elec tronically Signed By: Rashida Moraes RN\.br\Date and Time Signed: 08/29/23 07:31 EST\.br\Electronically Co-Signed By: Tapan Bender DO\.br\Date and Time Co-Signed: 08/29/23 10:12 EST 08-29-[address] in dementia facility. CRM is working with patient/family for appropriate d/c planning and referral is out to facilities with dementia units. SW will remain available and assist as/if needed. [facility] 08-28-2023 Note Chief Complaint I had a fall couple of weeks ago History of Present Illness Patient is an 83-year-old obese white female with a past medical history significant for dementia. Patient has had recent hospitalizations for change in mental status including her most recent admission on 10 July. Reminded by reviewing the H&P that although patient had a prior history of alcohol use there was no believe that patient was consuming alcohol prior to that admission. She had been seen by neuropsych a month prior and was felt to have progressed from mild to moderate dementia. She had not tolerated Aricept for this was felt to be contributing to the cardia and with Namenda she became dizzy therefore these agents were discontinued. Neurology had question Lewy body dementia for she was having hallucinations as well. Does have known history of remote lacunar infarcts. She also noted to have compulsive skin picking neurology had previously advised to avoid first generation antihistamines therefore she had been on Zyrtec. With a recent admission she had been oriented to location and to herself she was not oriented to the president she was not oriented to being the holiday season but she was able to do simple math. Her daughter was present during a prior hospitalization and when we discussed the potential benefit of Seroquel as she had tolerated previously patient started had requested would be conservative initially. In reviewing neurology's consultation Seroquel was added and tolerated improved to be beneficial. Workup did demonstrate only a mildly elevated sed rate, B12 and thyroid function studies were within normal limits as was serum ammonia. MRI was negative for any acute ocular events. Physical and Occupational Therapy had recommended chcf facility therefore she was discharged to the transitional care unit. Per review of the chart it appears on 21 July she was discharged from the TCU to [facility]. Other past medical history included in review of previous charts includes obstructive sleep apnea with poor tolerance of CPAP, anxiety depression, psoriatic arthritis for which she had seen Dr. Taylor, hypertension, GERD, history of cervical and lumbar 9 disease with remote lumbar surgeries. Patient was brought into the emergency department this evening with below Been advised by the emergency operations officer trust department to access to the patient's daughter who is a nurse practitioner there was once again concerns about the patient having increasing confusion and experiencing agitation. Been advised that on this evening of presentation patient was found outside that facility during around and disoriented. There was no history of any falls. Been advised by the emergency department physician who in turn and been advised by patient's daughter the patient's daughter had been advised that the only circumstance which patient would remain a resident at the assisted living would be of the patient's daughter would stay with the patient [id number]. Patient's daughter was not present during the time of this interview. Admit advised that patient's daughter had been appropriately searching other facilities looking for a facility that had a lockdown unit for dementia to avoid further wandering. As it is a weekend it would be unlikely that we would be able to make arrangements for before Tuesday patient's daughter was understandably concerned about patient being able to receive an appropriate level of care from where she came. Asking patient herself if she is felt she has been confused she confirmed this was uncertain of what time. I did ask her points of orientation she was oriented to self, when I asked her location she stated that she was at a friend's house in [place], she was not oriented to president even with multiple-choice, she was able to do simple math. When asked what was her impression as to why she was at the hospital as I now identified for her as her location she was uncertain but states my thought it best . I informed her I have been advised that she was found outside the facility and extreme cold temperature in a patient had a further insight into this and she states she cannot recall. Per discussion with the emergency department physician who had access to the patient's daughter there was no evidence of hypothermia at the time of her presentation is uncertain of duration she had been outside. She was denying any specific complaints. I had been advised when asking patient's RN and on the floor if patient's facility medications have been confirmed that it had not been but prior to patient's daughter leaving per her request patient was given her evening meds which included BuSpar 5 mg, melatonin 1 mg, Seroquel 25 mg and tizanidine 4 mg Review of Systems Constitutional: no fever, no chills, no sweats, no weakness Skin: no Jaundice, no rash, no lesions, nopetechiae ENMT: no ear pain, no sore throat, no congestion, no hoarseness Respiratory: no shortness of breath, no cou (more content not included)... [facility] Comment on above: Result Comment: Elec tronically Signed By: Reuben DREW DO\.br\Date and Time Signed: 08/28/23 00:37 EST 08-19-2023 Evaluation note Encounter Date Diagnosis Assessment Notes Aug, Dysuria (ICD-10 - R30.0) [employer] Other [id number] NoteAdmission and Discharge Information Admitting Physician - Reuben DREW DO Admitting Diagnoses: Discharge Diagnoses 1. Acute encephalopathy, 07/10/2023 2. History of dementia, 07/10/2023 3. Hyponatremia, 07/10/2023 4. Anxiety and depression, 07/10/2023 5. Compulsive skin picking, 07/10/2023 6. Lumbar spinal stenosis, 07/10/2023 7. History of alcohol use, 07/10/2023 8. Hypertension, 07/10/2023 9. History of PSVT (paroxysmal supraventricular tachycardia), 07/10/2023 10. Chronic GERD, 07/10/2023 11. Obstructive sleep apnea, 07/10/2023 12. Psoriatic arthritis, 07/10/2023 13. Obesity, 07/10/2023 14. Encounter for deep vein thrombosis (DVT) prophylaxis, 07/10/2023 Altered mental status, 07/10/2023 Depression, unspecified, 07/10/2023 Procedure History Closed reduction of nasal fracture (02/05/2021), Helene osteotomy second and third metatarsal. capsulotomy third metatarsophalangeal joint. Helene osteotomy second metatarsophalangeal joint. proximal interphalangeal joint arthroplasty left second digit and to the left third digit (09/19/2014), Cataract(2012), Back, Right hammer toe and bunionectomy, RIght knee arthroscopy, tubal ligation. Hospital Course Patient is a pleasant obese 82-year-old white female with past medical history significant for dementia, prior history of alcohol use, diabetes, obstructive sleep apnea, psoriatic arthritis, VT that presented to the ED for alteration in mentation. This was abrupt in onset in comparison to her baseline demented predisposition. She was admitted to the medicine team to rule out organic causes for new onset in change in mentation. Diagnosed with acute encephalopathy felt to be multifactorial. Her sleep wake cycle addressed by the addition of seroquel per neurology recommendations. They also had MRI brain completed without acute findings. Thyroid and vitamin B levels WNL. She had a recent outpt evaluation by neuropsych and they felt that her cognitive decline had progressed from mild to moderate. She had been prescribed aricept in the past and is no longer prescribed this. She was continued on her home lexapro and buspar.Her urinalysis was negative. She has had some sporadic arrhythmias at home and her home metoprolol had been placed on hold in anticipation of Holter monitor placement. She also does have obstructive sleep apnea with an inabilityto tolerate CPAP which may also have some contribution to her sleep hygiene. She did return to her baseline mentation, however PT/OT felt that she would benefit from SNF care to bring her to her full potential prior to returning home. She was transferred to TCU in stable condition. Physical Exam General: alert, no acute distress patient is cheerful Skin: warm, dry Head: no trauma, normocephalic Neck: Trachea midline, no adenopathy, no tenderness Eye: normal conjunctiva, sclera clear ENMT: oral mucosa moist, no pharyngeal erythema or exudate Cardiovascular: regular rate and rhythm, normal peripheral perfusion Respiratory: Clear, respirations non labored Chest wall: no deformity. Gastrointestinal: soft, non distended, no tenderness, no guarding. Extremities: no deformity, no trauma Neurological: Patient was oriented to self and daughter, LOC appropriate for age, CN II-XII intact Psychiatric: cooperative, affect appropriate for age, Laboratory Results Ammonia Level (07/12/2023) Ammonia - 24 mcmol Automated Diff (07/11/2023) Neutro Auto - 58.4 % Lymph Auto - 32.5 % Erath Auto - 7.4 % Eos Auto - 1.4 % Basophil Auto - 0.3 % Neutro Absolute - 3.6 E9/L Lymph Absolute - 2.0 E9/L Erath Absolute - 0.5 E9/L Eos Absolute - 0.1 E9/L Basophil Absolute - 0.0 E9/L BMP (07/13/2023) Glucose Lvl - 98 mg/dL BUN - 16 mg/dL Creatinine - 0.6 mg/dL BUN/Creat Ratio - 27 Sodium Lvl - 135 mmol/L Potassium Lvl - 4.0 mmol/L Chloride - 105 mmol/L CO2 - 29 mmol/L AGAP - 5 mEq/L Calcium Lvl - 8.6 mg/dL BMP (07/10/2023) Glucose Lvl - 93 mg/dL BUN - 15 mg/dL Creatinine - 0.6 mg/dL BUN/Creat Ratio - 25 Sodium Lvl - 133 mmol/L Potassium Lvl - 3.8 mmol/L Chloride - 100 mmol/L CO2 - 26 mmol/L AGAP - 11 mEq/L Calcium Lvl - 8.8 mg/dL Capillary Glucose POC (07/10/2023) Glucose Cap - 90 mg/dL POC Device SN - [id number] POC User ID - [id number] POC Username - [email or web address] FLOR CBC w/ Auto Diff (07/11/2023) WBC - 6.2 E9/L RBC - 3.8 E12/L Hgb - 12.7 gm/dL Hct - 36.9 % MCV - 95.9 fL MCH - 32.9 pg MCHC - 34.3 gm/dL RDW - 13.0 % Platelet - 171.0 E9/L MPV - 7.7 fL eGFR (07/13/2023) eGFR - 91 mL/min/1.73 m2 Ethanol Level (07/11/2023) Ethanol Lvl - <5 mg/dL Hepatic Function Panel (07/11/2023) Alk Phos - 60 Int._Unit/L ALT - 18 Int._Unit/L AST - 36 Int._Unit/L Total Protein - 7.5 gm/dL Albumin Lvl - 3.3 gm/dL Globulin - 4.2 gm/dL A/G Ratio - 0.8 Bili Total - 1.3 mg/dL Bili Direct - 0.2 mg/dL Bili Indirect - 1.1 mg/dL Sedimentation Rate Automated (07/11/2023) Sed (more content not included)...[facility] Comment: Electronically Signed By: Rimma Paez\.br\Date and Time Signed: 07/19/23 13:14 EST\.br\Electronically Co-Signed By: Valente SALEEM MD\.br\Date and Time Co-Signed: 07/25/23 09:12 [id number] Hospital Discharge instructions Patient Education 07/13/2023 11:39:06 Sleep Apnea, [id number] Sleep Apnea Sleep apnea affects breathing during sleep. It causes breathing to stop for 10 seconds or more, or to become shallow. People with sleep apnea usually snore loudly. It can also increase the risk of: Heart attack. Stroke. Being very overweight (obese). Diabetes. Heart failure. Irregular heartbeat. High blood pressure. The goal of treatment is to help you breathe normally again. What are the causes? The most common cause of this condition is a collapsed or blocked airway. There are three kinds of sleep apnea: Obstructive sleep apnea. This is caused by a blocked or collapsed airway. Central sleep apnea. This happens when the brain does not send the right signals to the muscles that control breathing. Mixed sleep apnea. This is a combination of obstructive and central sleep apnea. What increases the risk? Being overweight. Smoking. Having a small airway. Being older. Being male. Drinking alcohol. Taking medicines to calm yourself (sedatives or tranquilizers). Having family members with the condition. Having a tongue or tonsils that are larger than normal. What are the signs or symptoms? Trouble staying asleep. Loud snoring. Headaches in the morning. Waking up gasping. Dry mouth or sore throat in the morning. Being sleepy or tired during the day. If you are sleepy or tired during the day, you may also: Not be able to focus your mind (concentrate). Forget things. Get angry a lot and have mood swings. Feel sad (depressed). Have changes in your personality. Have less interest in sex, if you are female. Be unable to have an erection, if you are male. How is this treated? Sleeping on your side. Using a medicine to get rid of mucus in your nose (decongestant). Avoiding the use of alcohol, medicines to help you relax, or certain pain medicines (narcotics). Losing weight, if needed. Changing your diet. Quitting smoking. Using a machine to open your airway while you sleep, such as: ?An oral appliance. This is a mouthpiece that shifts your lower jaw forward. ?A CPAP device. This device blows air through a mask when you breathe out (exhale). ?An EPAP device. This has valves that you put in each nostril. ?A BIPAP device. This device blows air through a mask when you breathe in (inhale) and breathe out. Having surgery if other treatments do not work. Follow these instructions at home: Lifestyle Make changes that your doctor recommends. Eat a healthy diet. Lose weight if needed. Avoid alcohol, medicines to help you relax, and some pain medicines. Do not smoke or use any products that contain nicotine or tobacco. If you need help quitting, ask your doctor. General instructions Take nros-xaa-rlrtgto and prescription medicines only as told by your doctor. If you were given a machine to use while you sleep, use it only as told by your doctor. If you are having surgery, make sure to tell your doctor you have sleep apnea. You may need to bring your device with you. Keep all follow-up visits. Contact a doctor if: The machine that you were given to use during sleep bothers you or does not seem to be working. You do not get better. You get worse. Get help right away if: Your chest hurts. You have trouble breathing in enough air. You have an uncomfortable feeling in your back, arms, or stomach. You have trouble talking. One side of your body feels weak. A part of your face is hanging down. These symptoms may be an emergency. Get help right away. Call your local emergency services (911 int [place] Do not wait to see if the symptoms will go away. Do not drive yourself to the hospital. Summary This condition affects breathing during sleep. The most common cause is a collapsed or blocked airway. The goal of treatment is to help you breathe normally while you sleep. This information is not intended to replace advice given to you by your health care provider. Make sure you discuss any questions you have with your health care provider. Document Revised: 03/03/2022 Document Reviewed: 07/03/2021 [employer] Patient Education 2022 [employer] 07/13/2023 11:38:57 Hyponatremia, Vizf-ci-Qgzl Hyponatremia Hyponatremia is when the amount of salt (sodium) in your blood is too low. When salt levels are low, your body cells may take in extra water. This can cause swelling. The swelling often affects the brain. What are the causes? Certain medical problems or conditions. Vomiting a lot. Having watery poop (diarrhea) often. Sweating too much. Taking certain medicines or using illegal drugs. Fluids given through an IV tube. What increases the risk? Having heart, kidney, or liver failure. Having a medical condition that causes you to have watery poop a lot. Doing very hard exercises. Taking medicines that affect the amount of salt that is in your blood. What are the signs or symptoms? Symptoms of this condition include: Headache. Feeling like you may vomit (nausea). Vomiting. Being very tired. Muscle weakness and cramps. Not wanting to eat as much as normal. Feeling weak or dizzy. Very bad symptoms of this condition include: Confusion. Feeling restless. Having a fast heart rate. Fainting. Seizures. Coma. How is this treated? Treatment for this condition depends on the cause. Treatment may include: Getting fluids through an IV tube that is put into one of your veins. Taking medicines to fix the salt levels in your blood. If medicines are causing the problem, your medicines will need to be changed. Limiting how much water or fluid you take in, in some cases. Monitoring in the hospital to watch your symptoms. Follow these instructions at home: Take jufi-vys-asfyzym and prescription medicines only as told by your doctor. Many medicines can make this condition worse. Talk with your doctor about any medicines that you are taking. Do not drink alcohol. Keep all follow-up visits. Contact a doctor if: You feel more like you may vomit. You feel more tired. Your headache gets worse. You feel more confused. You feel weaker. Your symptoms go away and then they come back. Get help right away if: You have a seizure. You faint. You keep having watery poop. You keep vomiting. Summary Hyponatremia is when the amount of salt in your blood is too low. When salt levels are low, you can have swelling throughout the body. The swelling mostly affects the brain. Treatment depends on the cause. Treatment may include IV fluids and changing medicines. This information is not intended to replace advice given to you by your health care provider. Make sure you discuss any questions you have with your health care provider. Document Revised: 02/02/2022 Document Reviewed: 02/02/2022 [employer] Patient Education 2022 [employer]. Follow Up Care 07/10/2023 16:40:18 With:EDMOND PACHECO DO Address: [address] [place] [id number]- When:2 weeks Comments:Call for followup appointment With:Andres RODRIGUEZ, LEATHA Zaman Address: [address] [id number]- When:2 to 4 weeks [facility]12-05-2023 Evaluation + Plan noteExtracted from: Title:APSO Note Author:Rimma Paez Date:07/12/23 1. Acute encephalopathy (G93 .40: Encephalopathy, unspecified) Multifactorial Address sleep-wake cycle--> agree with neurology and the addition of Seroquel MRI brain no acute findings thyroid studies negative And B12 levels WNL Reviewed and appreciate neuro recommendations 2. History of dementia (Z86.59: Personal history of other mental and behavioral disorders) Not currently on dementia meds? Aricept/Namenda? Remote neuropsych evaluation cognitive dementia advance from mild to moderate. 3. Hyponatremia (E87.1: Hypo-osmolality and hyponatremia) Mild in nature, asymptomatic 4. Anxiety and depression (F41.9: Anxiety disorder, unspecified) We will continue Lexapro and BuSpar 5. Compulsive skin picking (F42.4: Excoriation (skin-picking) disorder) Continue Zyrtec as per neurology's recommendation on prior hospitalization avoid first generation antihistamines 6. Lumbar spinal stenosis (M48.061: Spinal stenosis, lumbar region without neurogenic claudication) Remote history of lower back surgery at [facility]. Patient is on Zanaflex we will continue but observe blood pressures. Will transiently hold Celebrex as patient will be on aspirin until evaluated by neurology for above 7. History of alcohol use (Z87.898: Personal history of other specified conditions) As stated above patient had a period of time after she was approximately 7 years ago where she consumed significant amounts of alcohol. 8. Hypertension (I10: Essential (primary) hypertension) Metoprolol was held with plans to do a Holter monitor on Tuesday. Will order as needed hydralazine 9. History of PSVT (paroxysmal supraventricular tachycardia) (Z86.79: Personal history of other diseases of the circulatory system) Patient had also had periods of nonsustained ventricular tachycardia. Metoprolol is being held with a Holter monitor scheduled for Tuesday to see if there is recurrence of the arrhythmias. Monitor serum potassium. Monitor on telemetry 10. Chronic GERD (K21.9: Gastro-esophageal reflux disease without esophagitis) Continue PPI 11. Obstructive sleep apnea (G47.33: Obstructive sleep apnea (adult) (pediatric)) Patient was tested remotely but did not tolerate CPAP. Question if this contributes to poor sleep hygiene and contributing to above 12. Psoriatic arthritis (L40.50: Arthropathic psoriasis, unspecified) She was followed by Dr. Taylor receives Remicade injections 13. Obesity (E66.9: Obesity, unspecified) 14. Encounter for deep vein thrombosis (DVT) prophylaxis (Z29.9: Encounter for prophylactic measures, unspecified) Heparin subcutaneous Orders: potassium chloride, 20 mEq = 1 tab(s), Tab-ER, Oral, Once, Stop date 07/12/23 9:00:00 EST, Routine, Start date 07/12/23 9:00:00 EST, 07/12/23 8:08:00 EST Basic Metabolic Panel eGFR Extra Lav Tube Extra SST Tube Shower Extracted from: Title:APSO Note- Neurology Author:Driss Moraes RN Date:07/12/23 The patient is a 82-year-old with a history of acid of neurodegenerative disease consistent with dementia who was admitted to the hospital with increased confusion which occurred over 24 hours.. Possible etiologies include acute worsening of baseline neurodegenerative dementia or exacerbation of cognitive problems related to sleep-wake cycle disturbance. Possible etiologies for the patient's symptoms include a multifactorial encephalopathy contributed to by underlying metabolic process. There is no evidence of an intracranial process such as stroke, increased intracranial pressure, or mass, contributed to the patient's symptoms. In addition, the patient may have medication side effects contributing to overall encephalopathy. The patient may have a component of sleep-wake cycle disturbance with sleep deprivation contributing to encephalopathy. Patient did sleep through the night and is up in the chair this morning. Patient and staff deny any hallucinations thus far today. -I have reviewed the MRI scan of the brain which does not reveal evidence of an acute intracranial process which may be contributing to the patient's encephalopathy -I recommend Seroquel 25 mg p.o. nightly for hallucinations with as needed medication for hallucinations and agitation -I recommend monitoring the patient's sleep-wake cycle with minimal interruptions during sleep and consideration of medications to help normalize the patient's sleep-wake cycle on the hospital. -I will continue to follow the patient clinically with medical management of the patient's medical conditions and make further recommendations based upon the patient's clinical course and the above evaluation. -I discussed the case with the hospitalist 1. Acute encephalopathy (G93.40: Encephalopathy, unspecified) 2. History of dementia (Z86.59: Personal history of other mental and behavioral disorders) 3. Hyponatremia (E87.1: Hypo-osmolality and hyponatremia) 4. Anxiety and depression (F41.9: Anxiety disorder, unspecified) 5. Compulsive skin picking (F42.4: Excoriation (skin-picking) disorder) 6. Lumbar spinal stenosis (M48.061: Spinal stenosis, lumbar region without neurogenic claudication) 7. History of alcohol use (Z87.898: Personal history of other specified conditions) 8. Hypertension (I10: Essential (primary) hypertension) 9. History of PSVT (paroxysmal supraventricular tachycardia) (Z86.79: Personal history of other diseases of the circulatory system) 10. Chronic GERD (K21.9: Gastro-esophageal reflux disease without esophagitis) 11. Obstructive sleep apnea (G47.33: Obstructive sleep apnea (adult) (pediatric)) 12. Psoriatic arthritis (L40.50: Arthropathic psoriasis, unspecified) 13. Obesity (E66.9: Obesity, unspecified) 14. Encounter for deep vein thrombosis (DVT) prophylaxis (Z29.9: Encounter for prophylactic measures, unspecified) Depression, unspecified (F32.A: Depression, unspecified) Extracted from: Title:APSO Note Author:Rimma Paez. Date:07/11/23 1. Acute encephalopathy (G93 .40: Encephalopathy, unspecified) Multifactorial Address sleep-wake cycle--> agree with neurology and the addition of Seroquel Pending MRI brain Check thyroid studies And B12 levels Reviewed and appreciate neuro recommendations 2. History of dementia (Z86.59: Personal history of other mental and behavioral disorders) Not currently on dementia meds? Aricept/Namenda? Remote neuropsych evaluation cognitive dementia advance from mild to moderate. 3. Hyponatremia (E87.1: Hypo-osmolality and hyponatremia) This is mild, see above patient is no longer believed to be consuming alcohol. We will check thyroid function studies and observe for stability 4. Anxiety and depression (F41.9: Anxiety disorder, unspecified) We will continue Lexapro and BuSpar 5. Compulsive skin picking (F42.4: Excoriation (skin-picking) disorder) Continue Zyrtec as per neurology's recommendation on prior hospitalization avoid first generation antihistamines 6. Lumbar spinal stenosis (M48.061: Spinal stenosis, lumbar region without neurogenic claudication) Remote history of lower back surgery at [facility]. Patient is on Zanaflex we will continue but observe blood pressures. Will transiently hold Celebrex as patient will be on aspirin until evaluated by neurology for above 7. History of alcohol use (Z87.898: Personal history of other specified conditions) As stated above patient had a period of time after she was approximately 7 years ago where she consumed significant amounts of alcohol. 8. Hypertension (I10: Essential (primary) hypertension) Metoprolol was held with plans to do a Holter monitor on Tuesday. Will order as needed hydralazine 9. History of PSVT (paroxysmal supraventricular tachycardia) (Z86.79: Personal history of other diseases of the circulatory system) Patient had also had periods of nonsustained ventricular tachycardia. Metoprolol is being held with a Holter monitor scheduled for Tuesday to see if there is recurrence of the arrhythmias. Monitor serum potassium. Monitor on telemetry 10. Chronic GERD (K21.9: Gastro-esophageal reflux disease without esophagitis) Continue PPI 11. Obstructive sleep apnea (G47.33: Obstructive sleep apnea (adult) (pediatric)) Patient was tested remotely but did not tolerate CPAP. Question if this contributes to poor sleep hygiene and contributing to above 12. Psoriatic arthritis (L40.50: Arthropathic psoriasis, unspecified) She was followed by Dr. Taylor receives Remicade injections 13. Obesity (E66.9: Obesity, unspecified) 14. Encounter for deep vein thrombosis (DVT) prophylaxis (Z29.9: Encounter for prophylactic measures, unspecified) Heparin subcutaneous Orders: Add on Test Drug Screen Urine Ethanol Level Occupational Therapy Evaluate Patient, Develop a Plan of Care and Implement Plan Physical Therapy Evaluate Patient, Develop a Plan of Care and Implement Plan Extracted from: Title:Consult Note- Neurology Author:Rashida Moraes RN Date:07/11/23 The patient is a 82-year-old with a history of acid of neurodegenerative disease consistent with dementia who was admitted to the hospital with increased confusion which occurred over 24 hours.. Possible etiologies include acute worsening of baseline neurodegenerative dementia or exacerbation of cognitive problems related to sleep-wake cycle disturbance. Possible etiologies for the patient's symptoms include a multifactorial encephalopathy contributed to by underlying metabolic process. I cannot completely exclude an intracranial process such as stroke, increased intracranial pressure, or mass, contributed to the patient's symptoms. I cannot exclude underlying seizure disorder with subclinical seizures and postictal confusion contributing to the patient's symptoms. In addition, the patient may have medication side effects contributing to overall encephalopathy. The patient may have a component of sleep-wake cycle disturbance with sleep deprivation contributing to encephalopathy. -I have reviewed the CT scan of the brain personally -I recommend obtaining an MRI scan of the brain to assess for an acute intracranial process which may be contributing to the patient's encephalopathy -I recommend obtaining lab work including ammonia to assess for a metabolic process which may be contributing to the patient's symptoms -I recommend Seroquel 25 mg p.o. nightly for hallucinations with as needed medication for hallucinations and agitation -I recommend monitoring the patient's sleep-wake cycle with minimal interruptions during sleep and consideration of medications to help normalize the patient's sleep-wake cycle on the hospital. -I will continue to follow the patient clinically with medical management of the patient's medical conditions and make further recommendations based upon the patient's clinical course and the above evaluation. -I discussed the case with the hospitalist 1. Acute encephalopathy (G93.40: Encephalopathy, unspecified) 2. History of dementia (Z86.59: Personal history of other mental and behavioral disorders) 3. Hyponatremia (E87.1: Hypo-osmolality and hyponatremia) 4. Anxiety and depression (F41.9: Anxiety disorder, unspecified) 5. Compulsive skin picking (F42.4: Excoriation (skin-picking) disorder) 6. Lumbar spinal stenosis (M48.061: Spinal stenosis, lumbar region without neurogenic claudication) 7. History of alcohol use (Z87.898: Personal history of other specified conditions) 8. Hypertension (I10: Essential (primary) hypertension) 9. History of PSVT (paroxysmal supraventricular tachycardia) (Z86.79: Personal history of other diseases of the circulatory system) 10. Chronic GERD (K21.9: Gastro-esophageal reflux disease without esophagitis) 11. Obstructive sleep apnea (G47.33: Obstructive sleep apnea (adult) (pediatric)) 12. Psoriatic arthritis (L40.50: Arthropathic psoriasis, unspecified) 13. Obesity (E66.9: Obesity, unspecified) 14. Encounter for deep vein thrombosis (DVT) prophylaxis (Z29.9: Encounter for prophylactic measures, unspecified) Depression, unspecified (F32.A: Depression, unspecified) Extracted from: Title:Admission H & P Author:VIKI BRYANT Reuben A Date:07/10/23 1. Acute encephalopathy (G93 .40: Encephalopathy, unspecified) Patient's daughter describes patient as having acute sudden change in her mental status. Patient's daughter does not believe that patient any longer nor for quite some time consumes alcohol, there is no clinical evidence on examination historical retrieval review of labs of any ongoing infectious process but will be observed. Patient had been on Seroquel during a previous hospitalization with improvement in her sleep cycle. I discussed pros versus cons of considering this agent to prevent disruption of sleep-wake cycle while hospitalized. Patient's daughter appreciates this but would prefer to treat more conservative with her other pharmacologic influences, we will therefore treat more conservatively by attempting to avoid unnecessary stimulation in the evening but this may be a consideration near future. A prior hospitalization she had a mild elevation in sed rate but she does have a history of psoriatic arthritis. We will get a sedimentation rate looking for any significant elevation, B12 level in the past was lower limit of normal in the 200s we will repeat B12 levels as she is on PPI, repeat thyroid function studies which were within normal instead of prehospitalization. Consult with neurology defer to their judgment as patient had presentations in March in May with MRI is being obtained of both those occasions demonstrating evidence of remote lacunar infarcts and microvascular ischemic changes no acute pathology. Lacunar infarcts we will order baby aspirin pending neurology's evaluation assist in determining the benefit versus risk for GI bleed with concomitant use of Celebrex for below which will transiently hold Ordered: Communication Order Physician to Nursing Consult to Neurology Hepatic Function Panel Sedimentation Rate Automated TSH With T4fr Reflex Vitamin B12 Level 2. History of dementia (Z86.59: Personal history of other mental and behavioral disorders) Patient had previously been on Aricept but per patient's daughter was discontinued when patient was bradycardic it was acknowledged that patient was also on metoprolol. Patient had been on Namenda was discontinued as patient was dizzy but she had also been on Aricept concomitantly ? Therefore if this truly represents drug intolerance will defer to neurology. Patient did have a neuropsych evaluation approximately 1 month prior and per the daughter patient's cognitive said advance from mild to moderate. Ordered: Consult to Neurology 3. Hyponatremia (E87.1: Hypo-osmolality and hyponatremia) This is mild, see above patient is no longer believed to be consuming alcohol. We will check thyroid function studies and observe for stability Ordered: TSH With T4fr Reflex 4. Anxiety and depression (F41.9: Anxiety disorder, unspecified) We will continue Lexapro and BuSpar 5. Compulsive skin picking (F42.4: Excoriation (skin-picking) disorder) Continue Zyrtec as per neurology's recommendation on prior hospitalization avoid first generation antihistamines 6. Lumbar spinal stenosis (M48.061: Spinal stenosis, lumbar region without neurogenic claudication) Remote history of lower back surgery at [facility]. Patient is on Zanaflex we will continue but observe blood pressures. Will transiently hold Celebrex as patient will be on aspirin until evaluated by neurology for above 7. History of alcohol use (Z87.898: Personal history of other specified conditions) As stated above patient had a period of time after she was approximately 7 years ago where she consumed significant amounts of alcohol. On prior hospitalizations she was drinking a few drinks and was reports of a neighbor bringing beer to her. Patient's daughter confirms this but states she had spoke with a neighbor and does not believe that she has continued to access or drink alcohol. 8. Hypertension (I10: Essential (primary) hypertension) Metoprolol was held with plans to do a Holter monitor on Tuesday. Will order as needed hydralazine 9. History of PSVT (paroxysmal supraventricular tachycardia) (Z86.79: Personal history of other diseases of the circulatory system) Patient had also had periods of nonsustained ventricular tachycardia. Metoprolol is being held with a Holter monitor scheduled for Tuesday to see if there is recurrence of the arrhythmias. Monitor serum potassium. Monitor on telemetry 10. Chronic GERD (K21.9: Gastro-esophageal reflux disease without esophagitis) Continue PPI 11. Obstructive sleep apnea (G47.33: Obstructive sleep apnea (adult) (pediatric)) Patient was tested remotely but did not tolerate CPAP. Question if this contributes to poor sleep hygiene and contributing to above 12. Psoriatic arthritis (L40.50: Arthropathic psoriasis, unspecified) She was followed by Dr. Taylor receives Remicade injections 13. Obesity (E66.9: Obesity, unspecified) 14. Encounter for deep vein thrombosis (DVT) prophylaxis (Z29.9: Encounter for prophylactic measures, unspecified) Heparin subcutaneous Orders: acetaminophen, 650 mg = 2 tab(s), Tab, Oral, q6hr PRN Pain, Routine, Start date 07/11/23 0:00:00 EST, 07/11/23 0:00:00 EST aspirin, 81 mg = 1 tab(s), Tab-EC, Oral, Daily, Routine, Start date 07/11/23 9:00:00 EST, 07/11/23 0:00:00 EST enoxaparin, 40 mg = 0.4 mL, Injection, SubCutaneous, Daily for 30 day(s), Stop date 08/10/23 8:59:00 EST, Routine, Start date 07/11/23 9:00:00 EST, 07/11/23 0:00:00 EST hydrALAZINE, 10 mg = 0.5 mL, Injection, IV Push, q6hr PRN Other (see comment), Routine, Start date 07/11/23 0:00:00 EST, 07/11/23 0:00:00 EST ondansetron, 4 mg = 2 mL, Injection, IV Push, q6hr PRN Nausea, Routine, Start date 07/11/23 0:00:00 EST, 07/11/23 0:00:00 EST Ambulate with Assistance Basic Metabolic Panel Cardiac Monitoring CBC w/ Auto Diff Notify Provider Vital Signs Notify Provider Vital Signs Place in Status Regular Diet Resuscitation Status - DNR CCA (Comfort Care Arrest) Vital Signs Weight The patient has an observation with the anticipation she would not require 2 midnight stay if her mental status returns to her acknowledged baseline and if her work- up is negative Extracted from: Title:ED Note Author:Gera RODRIGUEZ, Ryan Date: 1. History of dementia (Z86. 59: Personal history of other mental and behavioral disorders) 2. Altered mental status (R41.82: Altered mental status, unspecified) Orders: Capillary Glucose POC ED Physician consult Hospitalist for continued care Future Appointments Appointment Date:07/15/2023 10:00:00 AM Scheduled Provider: Location:[facility] Appointment Type:CV Holter/Event ([facility]) [facility]12-05-2023 NoteBasic Information The patient is a 82 yo female who I was asked to see in neurological consultation for acute encephalopathy. The patient does have a history of baseline neurodegenerative disease which has been progressive. The patient was alone overnight on Tuesday and in her normal state of health according to gene chavez. When family next spoke with her on Tuesday the patient was significantly confused and hallucinating. It is unclear if the patient did not sleep overnight, had a fall with head injury, or had any issues with medications. The patient remains significantly confused and hallucinating and not at [facility] The patient was brought in by family and is currently being evaluated for other medical conditions. Patient does not appear to have underlying urinary tract infection at this time. Patient denies any unilateral numbness, unilateral weakness, or vision changes although the patient is a poor historian for the events which led to her hospitalization. History was obtained predominantly from the patient's daughter. [1] Assessment/Plan The patient is a 82-year-old with a history of acid of neurodegenerative disease consistent with dementia who was admitted to the hospital with increased confusion which occurred over 24 hours.. Possible etiologies include acute worsening of baseline neurodegenerative dementia or exacerbation of cognitive problems related to sleep-wake cycle disturbance. Possible etiologies for the patient's symptoms include a multifactorial encephalopathy contributed to by underlying metabolic process. There is no evidence of an intracranial process such as stroke, increased intracranial pressure, or mass, contributed to the patient's symptoms. In addition, the patient may have medication side effects contributing to overall encephalopathy. The patient may have a component of sleep-wake cycle disturbancewith sleep deprivation contributing to encephalopathy. Patient did sleep through the night and is up in the chair this morning. Patient and staff deny anyhallucinations thus far today. -I have reviewed the MRI scan of the brain which does not reveal evidence of an acute intracranial process which may be contributing to the patient's encephalopathy -I recommend Seroquel 25 mg p.o. nightly for hallucinations with as needed medication for hallucinations and agitation -I recommend monitoring the patient's sleep-wake cycle with minimal interruptions during sleep and consideration of medications to help normalize the patient's sleep-wake cycle on the hospital. -I will continue to follow the patient clinically with medical management of the patient's medical conditions and make further recommendations based upon the patient's clinical course and the above evaluation. -I discussed the case with the hospitalist 1. Acute encephalopathy (G93.40: Encephalopathy, unspecified) 2. History of dementia (Z86.59: Personal history of other mental and behavioral disorders) 3. Hyponatremia (E87.1: Hypo-osmolality and hyponatremia) 4. Anxiety and depression (F41.9: Anxiety disorder, unspecified) 5. Compulsive skin picking (F42.4: Excoriation (skin-picking) disorder) 6. Lumbar spinal stenosis (M48.061: Spinal stenosis, lumbar region without neurogenic claudication) 7. History of alcohol use (Z87.898: Personal history of other specified conditions) 8. Hypertension (I10: Essential (primary) hypertension) 9. History of PSVT (paroxysmal supraventricular tachycardia) (Z86.79: Personal history of other diseases of the circulatory system) 10. Chronic GERD (K21.9: Gastro-esophageal reflux disease without esophagitis) 11. Obstructive sleep apnea (G47.33: Obstructive sleep apnea (adult) (pediatric)) 12. Psoriatic arthritis (L40.50: Arthropathic psoriasis, unspecified) 13. Obesity (E66.9: Obesity, unspecified) 14. Encounter for deep vein thrombosis (DVT) prophylaxis (Z29.9: Encounter for prophylactic measures, unspecified) Depression, unspecified (F32.A: Depression, unspecified) Subjective Review of Systems Constitutional: no fever, no chills, no sweats, no weakness Respiratory: no shortness of breath, no cough, no orthopnea, no wheezing Cardiovascular: no chest pain, no palpitations, no edema Additional ROS info: Except as noted in the above Review of Systems and in the History of Present Illness all other systems have been reviewed and are negative or noncontributory. [2] Objective Vitals & Measurements T: 36.7 ?C(Oral) TMIN: 36.5 ?C(Oral) TMAX: 36.8 ?C(Axillary) HR: 75(Monitored) RR: 18 BP: 149/64 SpO2: 95% WT: 88.4 kg Intake & Output This visit (24 hour periods starting at 07:00 EST) 07/12/23 * 07/11/23 07/10/23 Total Summary Intake mL -- 250 2 Output mL -- 525 -- Fluid Balance -- -275 2 Intake (2) Oral Intake mL -- 250 -- famotidine mL -- -- 2 Total -- 250 2 Output (1) Urine Voided mL -- 525 -- Total -- 525 -- Counts (1) Urine Count -- 1 -- (more content not included)...[facility] HospitalComment on above:Result Comment: Electronically Signed By: Rashida Moraes RN\.br\Date and Time Signed: 07/12/23 07:18 EST\.br\Electronically Co-Signed By: Austyn Campos MD\.br\Date and Time Co-Signed: 07/12/2309:57 [id number] NoteChief Complaint significant change in mental status - daughter Linh History of Present Illness Patient is a pleasant obese 82-year-old white female with past medical history significant for dementia, prior history of alcohol use which had increased when she became number of years prior. Patient has had previous presentations with an admission in March as well as most recently in May with a relatively acute mental status. There was previous documentation that patient's neighborwas bringing her alcohol and she was only drinking 1-2 alcoholic beverages a day. Patient's past medical history reason for presentation this evening much of the history was obtained from review of the chart and an extensive discussion with patient's daughter Linh who is a nurse practitioner was most helpful in obtaining her prior history, she had had a conversation with the patient's neighbor the best of her knowledge she has not consumed alcohol in quite some period of time. Previous admissions she has had neuroimaging including an MRI which demonstrated small vessel ischemic changes gesturing of remote lacunar infarcts but no acute cerebrovascular accidents. Patient does have hallucinations neurology had considered Lewy body dementia. Linh suggest that patient did have a neuropsych evaluation in 1 month ago by a clinician who has joined Dr. Campos's practice was felt to have progressed from mild to moderate dementia. I suggest that patient's cognitive decline is represented mostly short-term recall challenges. To the best of Linh's knowledge patient does sleep well and is not up in the middle of the evening. Patient does have a history of compulsive itching and is on Zyrtec with neurology's recommendations to avoid first generation antihistamines. Patient has had a history of PSVT and nonsustained ventricular tachycardia had been on metoprolol. Patient however is having ametoprolol held Holter monitor that was scheduled for Tuesday to see if there is recurrence of arrhythmia. Patient was noted to be bradycardic in the Irrisept that she was previously on was felt to tiara contributing factor as well for this was discontinued. Patient had been placed on Namenda which was previously considered but she was experiencing dizziness so this too was discontinued but patient's daughter suggest she was on Namenda at the same time she was on Aricept for question if this was truly not tolerated. Patient does have anxiety depression, Struve obstructive sleep apnea tested several years prior but did not tolerate her CPAP. Patient is also treated by Dr. Taylor for psoriatic arthritis. In addition patient has a history of cervical and lumbar spinal stenosis had remote surgery lower lumbar spine at [facility]. Patient was brought into the emergency department due to below With patient's history I did start with questions of orientation. Patient was quite pleasant realize she was in the hospital was able to identify self by first and last name but was unaware of the year, the month when I advised her it was July I asked if she knew what holiday occurred in July despite having the [employer] channel on with the [employer] she was uncertain. She was not oriented to the president's name but she was able to do simple math i.e. 2+2 = 4. I therefore called patient's daughter Linh who is the power of associate attorney at [phone] to obtain patient's recent history. Her daughter states that patient had been in her usual state of health until this date of present ation. She states she did call to check on her mother earlier today he states her mother had received a call but at first did not speak. Patient's daughter states that the patient was out of sorts. Patient did not believe that it was the patient's daughter that was calling. Patient stated I am waiting for somebody who cares about me but she cannot explain who she was waiting for it and for whatreason. It was therefore described as an acute change that was not noted yesterday. Patient's daughter checks on her twice daily and she does have a line maintenance. She does state since her neuropsych evaluation that she has been looking for assisted living. Patient's daughter was concerned that estefania had recurrence of urinary tract infection as she was recently treated with Bactrim on 21 June perhaps did not have complete clearance of urinary tract infection and patient was brought into the emergency department Review of Systems Constitutional: no fever, no chills, no sweats, Skin: no Jaundice, no rash, no lesions, nopetechiae ENMT: no ear pain, no sore throat, no congestion, no hoarseness Respiratory: occasional shortness of breath, occasional cough, no orthopnea, no wheezing Cardiovascular: no chest pain, no palpitations, no edema Gastrointestinal: no nausea, no vomiting, no diarrhea, no GI bleeding Genitourinary: no dysuria, no hematuria, Musculoskeletal: no acute back pain, no trauma Neurologic: no headache, no dizziness, no numbness, (more content not included)...[facility] HospitalComment on above:Result Comment: Electronically Signed By: Reuben DREW DO\.anusha\Date and Time Signed: 07/11/23 00:06 [id number] Evaluation note* Encounter Date Diagnosis Assessment Notes Treatment Notes Treatment Clinical Notes Jun, Acute cystitis without hematuria (ICD-10 - N30.00) Jun, Primary hypertension (ICD-10 - I10) [facility] Other 11-14-2023 Evaluation note* Encounter Date Diagnosis Assessment Notes Treatment Notes Treatment Clinical Notes Jun, Acute cystitis without hematuria (ICD-10 - N30.00) [facility] Other 11-13-2023 Evaluation note* Encounter Date Diagnosis Assessment Notes Treatment Notes Treatment Clinical Notes Jun, Dysuria (ICD-10 - R30.0) [facility] Other 10-10-2023 Evaluation note* Encounter Date Diagnosis Assessment Notes Treatment Notes Treatment Clinical Notes May, Obstructive sleep apnea (ICD-10 - G47.33) AHI 12 This patient is aware of the benefits associated with NAWAF: With continued use, the patient reduces the risk for CO, CVA, HTN, cardiac dysrhythmias and sudden cardiac deaths.The patient is also aware of the association between NAWAF and morning headaches, daytime somnolence, fatigue and obesity, which also has been improved with continued use.The patient is compliant with treatment, wearing the equipment every night for greater than 4 hours.The patient is instructed to continue use of the CPAP for NAWAF treatment. May, Primary hypertension (ICD-10 - I10) This patient is instructed to consume a healthy, low-fat, low-salt diet. They are also encouraged to continue exercise to achieve/maintain a normal BMI. Patient is instructed on home BP measurements: - rest for 5 minutes w/o talking- positioned w/ feet on floor and arm supported- average best 2/3 readings w/ goal < 135/85 May, NSVT (nonsustained ventricular tachycardia) (ICD-10 - I47.29) Continue Metoprolol for now. Hold Aricept and Namenda May, Alzheimer's disease with late onset (ICD-10 - G30.1) Requires assistance from daughter for IADL. May, Dementia in other diseases classified elsewhere, moderate, with psychotic disturbance (ICD-10 - F02.B2) Hx of hallucinations, compulsive picking/scratching . May, Generally unsteady (ICD-10 - R26.81) Fall precautions. Recommend use of assistive device: walker over cane. May, Lumbar spondylosis (ICD-10 - M47.816) The patient is instructed to avoid bending, twisting or lifting. They are to use intermittent heat and ice as needed. They may schedule a massage or gentle manipulation. They may safely use Tylenol as needed. May, Primary osteoarthritis of both knees (ICD-10 - M17.0) Quad exercises, ice/heat and Tylenol. Avoid opiates due to cognitive impairment May, Acute cystitis without hematuria (ICD-10 - N30.00) [facility] Other 10-04-2023 Evaluation note* Encounter Date Diagnosis Assessment Notes Treatment Notes Treatment Clinical Notes May, Dysuria (ICD-10 - R30.0) [facility] Other 09-19-2023 Evaluation note* Encounter Date Diagnosis Assessment Notes Treatment Notes Treatment Clinical Notes Apr, Mild episode of recurrent major depressive disorder (ICD-10 - F33.0) [facility] Other 08-30-2023 Evaluation note* Encounter Date Diagnosis Assessment Notes Treatment Notes Treatment Clinical Notes Mar, Visual hallucination (ICD-10 - R44.1) Not frightening to the patient. In past, were in the forms of people but now are designs/patterns on the wall Seroquel prescribed by Neurology Mar, Mild cognitive impairment (ICD-10 - G31.84) Maintain safety: - detailed discussion of optional living arrangements - I would recommend AL at this time as she is capable of following dirctions but requires constant reminders - poor judgement and decision making ability render her at increased risk for living alone - poor medication compliance Mar, Obstructive sleep apnea (ICD-10 - G47.33) AHI 12 This patient is aware of the benefits associated with NAWAF: With continued use, the patient reduces the risk for CO, CVA, HTN, cardiac dysrhythmias and sudden cardiac deaths.The patient is also aware of the association between NAWAF and morning headaches, daytime somnolence, fatigue and obesity, which also has been improved with continued use.The patient is compliant with treatment, wearing the equipment every night for greater than 4 hours.The patient is instructed to continue use of the CPAP for NAWAF treatment. Mar, Acute cystitis without hematuria (ICD-10 - N30.00) Failed to improve w/ Bactrim, which was moderately sensitive [place] w/ Levoquin x 5 days Mar, Palpitation (ICD-10 - R00.2) Hydrate and avoid stimulants. Continue Metoprolol at this time. 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 Requires reminders to use adaptive device. Fall precautions [facility] Other 08-23-2023 Evaluation note* Encounter Date Diagnosis Assessment Notes Treatment Notes Treatment Clinical Notes Mar, Acute cystitis without hematuria (ICD-10 - N30.00) [facility] Other 08-07-2023 Evaluation + Plan noteExtracted from: Title:Discharge Note Author:Davy RODRIGUEZ, Alex Hernandez ate:03/14/23 Stable Discharge To, Anticipated II - Snf Unit Discharged to - Home independently TCU Prescriptions busPIRone 10 mg Tab, 15 mg= 1.5 tab(s), Oral, BID cetirizine 10 mg oral capsule, 10 mg= 1 cap(s), Oral, Bedtime, PRN Melatonin 1 mg oral tablet, 1 mg, Oral, Once a day (at bedtime) Home Aricept 5 mg Tab, 5 mg= 1 tab(s), Oral, Once a day (at bedtime), Not taking: DC per neurology 03/11 CeleBREX 200 mg Cap, 200 mg= 1 cap(s), Oral, BID Centrum Silver, 1 tab(s), Oral, Daily Fish Oil, 1 tab, Oral, Daily Folate 0.4 mg Tab, 0.4 mg= 1 tab(s), Oral, Daily latanoprost Opth 0.005% Batool, 1 drop(s), OPTH, Daily, Not taking Lexapro 20 mg Tab, 20 mg= 1 tab(s), Oral, Daily magnesium oxide 250 mg oral tablet, 250 mg= 1 tab(s), Oral, Daily, Not taking Multiple Vitamins Tab, 1 tab(s), Oral, Daily, Not taking omeprazole 20 mg Cap-DR, 20 mg= 1 cap(s), Oral, qAM Remicade tiZANidine 4 mg Tab, 4 mg= 1 tab(s), Oral, Bedtime Vitamin D3 2000 intl units, 2000 International_Unit, Oral, Daily, Not taking With When Contact Information Andres RODRIGUEZ, LEATHA Zaman Within [address] to [address] [address]- Additional Instructions: Fall Prevention in the Home, Adult, [id number] Extracted from: Title:APSO Note Author:Barrie Rodriguez DO Zackary e:03/13/23 1. Altered mental status, un specified (R41.82: Altered mental status, unspecified) Secondary to worsening dementia versus metabolic encephalopathy from medication Consult neurology and appreciate recommendations MRI brain negative for acute findings. Does show small focal areas of intensity changes in right and left basal ganglia suggested of lacunar infarcts chronic. Findings of nonspecific small vessel ischemic changes. Change since prior MRI try cetirizine 10mg qHS per neuro - d/c donepezil, may start memantine pending neuro recs 2. Fall at home (W19.XXXA: Unspecified fall, initial encounter) Secondary to above CT of head, CT cervical spine, CXR negative for acute findings Fall precautions, ambulate only with assistance PT/OT recommended patient for SNF, placement currently pending 1. Altered mental status, unspecified (R41.82: Altered mental status, unspecified) [facility] Minutes [id number] 2. Fall at home (W19.XXXA: Unspecified fall, initial encounter) 3. Dementia (F03.90: Unspecified dementia, unspecified severity, without behavioral disturbance, psychotic disturbance, mood disturbance, and anxiety) 4. Depression (F32.A: Depression, unspecified) Unspecified place in unspecified non-institutional (private) residence as the place of occurrence of the external cause (Y92.009: Unspecified place in unspecified non-institutional (private) residence as the place of occurrence of the external cause) Orders: Patient Specific Meds, Latanoprost, Normal Patient Dose, Each, Eye-Both, Bedtime, Routine, Start date 03/12/23 21:00:00 EDT Patient Specific Meds, celecoxib, Normal Patient Dose, Each, Oral, BID, NOW, Start date 03/12/23 13:41:00 EDT Patient Specific Meds, buspar, Each, Oral, BID, NOW, Start date 03/12/23 13:40:00 EDT Patient Specific Meds, Metoprolol, Each, Oral, Daily, NOW, Start date 03/12/23 13:41:00 EDT Patient Specific Meds, escitalopram, Each, Oral, Daily, NOW, Start date 03/12/23 13:42:00 EDT Patient Specific Meds, omeprazole, Each, Oral, Daily, NOW, Start date 03/12/23 13:42:00 EDT Communication Order Communication Order Physical Therapy Additional Tx Extracted from: Title:APSO Note Author:Barrie Rodriguez DO Zackary e:03/12/23 1. Altered mental status, un specified (R41.82: Altered mental status, unspecified) Secondary to worsening dementia versus metabolic encephalopathy from medication Consult neurology and appreciate recommendations MRI brain negative for acute findings. Does show small focal areas of intensity changes in right and left basal ganglia suggested of lacunar infarcts chronic. Findings of nonspecific small vessel ischemic changes. Change since prior MRI try cetirizine 10mg qHS per neuro - d/c donepezil, may start memantine pending neuro recs 2. Fall at home (W19.XXXA: Unspecified fall, initial encounter) Secondary to above CT of head, CT cervical spine, CXR negative for acute findings Fall precautions, ambulate only with assistance PT/OT recommended patient for SNF, placement currently pending 3. Dementia (F03.90: Unspecified dementia, unspecified severity, without behavioral disturbance, psychotic disturbance, mood disturbance, and anxiety) d/c donepezil, possibly start memantine 4. Depression (F32.A: Depression, unspecified) buspirone and Lexapro restarted 1. Altered mental status, unspecified (R41.82: Altered mental status, unspecified) Ordered: [facility] Hospital Care/Day Straight Fwd 25 Minutes [id number] [facility] Hospital Care/Day Straight Fwd 25 Minutes [id number] 2. Fall at home (W19.XXXA: Unspecified fall, initial encounter) 3. Dementia (F03.90: Unspecified dementia, unspecified severity, without behavioral disturbance, psychotic disturbance, mood disturbance, and anxiety) 4. Depression (F32.A: Depression, unspecified) Unspecified place in unspecified non-institutional (private) residence as the place of occurrence of the external cause (Y92.009: Unspecified place in unspecified non-institutional (private) residence as the place of occurrence of the external cause) Orders: busPIRone, 15 mg = 1.5 tab(s), Tab, Oral, BID, Routine, Start date 03/12/23 9:00:00 EDT, 03/12/23 8:53:00 EDT escitalopram, 20 mg = 2 tab(s), Tab, Oral, Daily, Routine, Start date 03/12/23 9:00:00 EDT, 03/12/23 8:53:00 EDT melatonin, 1 mg = 1 tab(s), Tab-Chew, Oral, Once a day (at bedtime), Routine, Start date 03/11/23 21:00:00 EDT Occupational Therapy Additional Tx Occupational Therapy Evaluate Patient, Develop a Plan of Care and Implement Plan Referral to Resource Center Extracted from: Title:APSO Note-neurology Author:Judy CROWLEY, Mahendra ole Date:03/12/23 Reason for consult: Acute on chronic altered mental status ASSESSMENT: Baseline neurodegenerative disorder. Presumed dementia but fairly mild. MoCA testing was something like 17 or 19. Still manages to live independently for the most part. Visual hallucinations are prominent. PLAN: 1. MRI brain with and without contrast Reviewed which does not reveal evidence of an acute intracranial process such as stroke or hemorrhage 2. I recommend continuing second-generation antihistamine for the itch. Avoid first generation antihistamines. Start cetirizine 10 mg nightly. I counseled the patient on possible diagnosis, evaluation, treatment options. The patient can follow-up with adult outpatient neurology clinic. 1. Altered mental status, unspecified (R41.82: Altered mental status, unspecified) 2. Fall at home (W19.XXXA: Unspecified fall, initial encounter) 3. Dementia (F03.90: Unspecified dementia, unspecified severity, without behavioral disturbance, psychotic disturbance, mood disturbance, and anxiety) 4. Depression (F32.A: Depression, unspecified) Unspecified place in unspecified non-institutional (private) residence as the place of occurrence of the external cause (Y92.009: Unspecified place in unspecified non-institutional (private) residence as the place of occurrence of the external cause) Extracted from: Title:APSO Note Author:Barrie Rodriguez DO Zackary e:03/11/23 1. Altered mental status, un specified (R41.82: Altered mental status, unspecified) Secondary to worsening dementia versus metabolic encephalopathy from medication Consult neurology and appreciate recommendations CT of head negative UA negative for UTI, CBC and BMP appear within normal limits We will continue to hold medications at this time 2. Fall at home (W19.XXXA: Unspecified fall, initial encounter) Secondary to above CT of head, CT cervical spine, CXR negative for acute findings Fall precautions, ambulate only with assistance 3. Dementia (F03.90: Unspecified dementia, unspecified severity, without behavioral disturbance, psychotic disturbance, mood disturbance, and anxiety) We will hold Aricept secondary to #1 4. Depression (F32.A: Depression, unspecified) buspirone and Lexapro will hold secondary to #1 1. Altered mental status, unspecified (R41.82: Altered mental status, unspecified) Ordered: [facility] Hospital Care/Day Moderate 35 Minutes [id number] 2. Fall at home (W19.XXXA: Unspecified fall, initial encounter) 3. Dementia (F03.90: Unspecified dementia, unspecified severity, without behavioral disturbance, psychotic disturbance, mood disturbance, and anxiety) 4. Depression (F32.A: Depression, unspecified) Unspecified place in unspecified non-institutional (private) residence as the place of occurrence of the external cause (Y92.009: Unspecified place in unspecified non-institutional (private) residence as the place of occurrence of the external cause) Orders: busPIRone, 15 mg = 1.5 tab(s), Oral, BID, # 90 tab(s), Refills(s) 0, Pharmacy: [facility]/pharmacy #[id number], 152.4, cm, 05/09/22 21:11:00 EDT, Height/Length Dosing, 83, kg, 05/09/22 21:11:00 EDT, Weight Dosing hydrALAZINE, 10 mg = 0.5 mL, Injection, IV Push, q6hr PRN Other (see comment), Routine, Start date 03/10/23 13:56:00 EDT, 03/10/23 13:56:00 EDT ondansetron, 4 mg = 2 mL, Injection, IV Push, q6hr PRN Nausea, Routine, Start date 03/10/23 13:56:00 EDT, 03/10/23 13:56:00 EDT senna, 17.2 mg = 2 tab(s), Tab, Oral, BID PRN Other (see comment), Routine, Start date 03/10/23 13:56:00 EDT Ambulate with Assistance Automated Diff Basic Metabolic Panel Below the Knee Intermittent Pneumatic Compression Device CBC w/ Auto Diff Communication Order Physician to Nursing Consult to Neurology eGFR Magnesium Level Occupational Therapy Evaluate Patient, Develop a Plan of Care and Implement Plan Physical Therapy Evaluate Patient, Develop a Plan of Care and Implement Plan Precautions Regular Diet Resuscitation Status - DNR CCA (Comfort Care Arrest) Vital Signs Weight Extracted from: Title:Consult Note-neurology Author:Judy CROWLEY N ichole Date:03/11/23 Reason for consult: Acute on chronic altered mental status ASSESSMENT: 1. Nothing jumping out as an immediate cause for encephalopathy. No major metabolic disturbance. Seemingly without any infectious process. Medications look fairly benign. Unclear significance of her apparently having occasional beer. 2. Baseline neurodegenerative disorder. Presumed dementia but fairly mild. MoCA testing was something like 17 or 19. Still manages to live independently for the most part. Visual hallucinations are prominent. My biggest consideration would still be Lewy body dementia. PLAN: 1. MRI brain with and without contrast 2. Can try second-generation antihistamine for the itch. Avoid first generation antihistamines. Start cetirizine 10 mg nightly. 3. Can discontinue donepezil. Future consideration can be given for memantine. 1. Altered mental status, unspecified (R41.82: Altered mental status, unspecified) 2. Fall at home (W19.XXXA: Unspecified fall, initial encounter) 3. Dementia (F03.90: Unspecified dementia, unspecified severity, without behavioral disturbance, psychotic disturbance, mood disturbance, and anxiety) 4. Depression (F32.A: Depression, unspecified) Unspecified place in unspecified non-institutional (private) residence as the place of occurrence of the external cause (Y92.009: Unspecified place in unspecified non-institutional (private) residence as the place of occurrence of the external cause) Extracted from: Title:Admission H & P Author:Barrie Rodriguez DO Date:03/10/23 1. Altered mental status, un specified (R41.82: Altered mental status, unspecified) Secondary to worsening dementia versus metabolic encephalopathy from medication Consult neurology CT of head negative UA negative for UTI, CBC and BMP appear within normal limits 2. Fall at home (W19.XXXA: Unspecified fall, initial encounter) Secondary to above CT of head, CT cervical spine, CXR negative for acute findings Fall precautions, ambulate only with assistance 3. Dementia (F03.90: Unspecified dementia, unspecified severity, without behavioral disturbance, psychotic disturbance, mood disturbance, and anxiety) Continue Aricept 4. Depression (F32.A: Depression, unspecified) Continue buspirone and Lexapro will await neurology recommendations dvt ppx- PAS b/o diet-regular code status- DNRCCA Patient will be admitted under observation status due to length of stay estimated less than 2 midnights 1. Altered mental status, unspecified (R41.82: Altered mental status, unspecified) 2. Fall at home (W19.XXXA: Unspecified fall, initial encounter) 3. Dementia (F03.90: Unspecified dementia, unspecified severity, without behavioral disturbance, psychotic disturbance, mood disturbance, and anxiety) 4. Depression (F32.A: Depression, unspecified) Unspecified place in unspecified non-institutional (private) residence as the place of occurrence of the external cause (Y92.009: Unspecified place in unspecified non-institutional (private) residence as the place of occurrence of the external cause) Orders: hydrALAZINE, 10 mg = 0.5 mL, Injection, IV Push, q6hr PRN Other (see comment), Routine, Start date 03/10/23 13:56:00 EDT, 03/10/23 13:56:00 EDT ondansetron, 4 mg = 2 mL, Injection, IV Push, q6hr PRN Nausea, Routine, Start date 03/10/23 13:56:00 EDT, 03/10/23 13:56:00 EDT senna, 17.2 mg = 2 tab(s), Tab, Oral, BID PRN Other (see comment), Routine, Start date 03/10/23 13:56:00 EDT Ambulate with Assistance Basic Metabolic Panel Below the Knee Intermittent Pneumatic Compression Device CBC w/ Auto Diff Consult to Neurology Magnesium Level Occupational Therapy Evaluate Patient, Develop a Plan of Care and Implement Plan Physical Therapy Evaluate Patient, Develop a Plan of Care and Implement Plan Precautions Regular Diet Resuscitation Status - DNR CCA (Comfort Care Arrest) Vital Signs Weight Extracted from: Title:ED Note Author:Jose Armando Abrams PA-C te:03/10/23 1. Altered mental status, un specified (R41.82: Altered mental status, unspecified) 2. Fall at home (W19.XXXA: Unspecified fall, initial encounter) 3. Dementia (F03.90: Unspecified dementia, unspecified severity, without behavioral disturbance, psychotic disturbance, mood disturbance, and anxiety) 4. Depression (F32.A: Depression, unspecified) Unspecified place in unspecified non-institutional (private) residence as the place of occurrence of the external cause (Y92.009: Unspecified place in unspecified non-institutional (private) residence as the place of occurrence of the external cause) Orders: Sodium Chloride 0.9% intravenous solution 1,000 mL, 1,000 mL, IV, 20 mL/hr, STAT, Start date 03/10/23 11:23:00 EDT, 50 hour(s), Total volume (mL): 1,000 Automated Diff Basic Metabolic Panel CBC w/ Auto Diff CT Head or Brain w/o Contrast CT Spine Cervical w/o Contrast ECG 12 Lead Adult ED Physician consult Hospitalist for continued care eGFR Extra SST Tube PT & PTT Troponin 0 Hr. Troponin 3 Hr. Troponin 6 Hr. Troponin 9 Hr. UA With Cult Reflex XR Chest Single View Future Appointments Appointment Date:03/16/2023 09:00:00 AM Scheduled Provider:Inderjit ASHRAF MD Location:Extended Care Appointment Type: TCU [facility]08-07-2023 Hospital Discharge instructions Patient Education 03/14/2023 09:22:15 Fall Prevention in the Home, Adult, Ypyv-ue-Aowe Fall Prevention in the Home, Adult Falls can cause injuries and can happen to people of all ages. There are many things you can do to make your home safe and to help prevent falls. Ask for help when making these changes. What actions can I take to prevent falls? General Instructions Use good lighting in all rooms. Replace any light bulbs that burn out. Turn on the lights in dark areas. Use night-lights. Keep items that you use often in [id number]-tb-[id number] places. Lower the shelves around your home if needed. Set up your furniture so you have a clear path. Avoid moving your furniture around. Do not have throw rugs or other things on the floor that can make you trip. Avoid walking on wet floors. If any of your floors are uneven, fix them. Add color or contrast paint or tape to clearly rocky and help you see: ?Grab bars or handrails. ?First and last steps of staircases. ?Where the edge of each step is. If you use a stepladder: ?Make sure that it is fully opened. Do not climb a closed stepladder. ?Make sure the sides of the stepladder are locked in place. ?Ask someone to hold the stepladder while you use it. Know where your pets are when moving through your home. What can I do in the bathroom? Keep the floor dry. Clean up any water on the floor right away. Remove soap buildup in the tub or shower. Use nonskid mats or decals on the floor of the tub or shower. Attach bath mats securely with double-sided, nonslip rug tape. If you need to sit down in the shower, use a plastic, nonslip stool. Install grab bars by the toilet and in the tub and shower. Do not use towel bars as grab bars. What can I do in the bedroom? Make sure that you have a light by your bed that is easy to reach. Do not use any sheets or blankets for your bed that hang to the floor. Have a firm chair with side arms that you can use for support when you get dressed. What can I do in the kitchen? Clean up any spills right away. If you need to reach something above you, use a step stool with a grab bar. Keep electrical cords out of the way. Do not use floor zambian or wax that makes floors slippery. What can I do with my stairs? Do not leave any items on the stairs. Make sure that you have a light switch at the top and the bottom of the stairs. Make sure that there are handrails on both sides of the stairs. Fix handrails that are broken or loose. Install nonslip stair treads on all your stairs. Avoid having throw rugs at the top or bottom of the stairs. Choose a carpet that does not hide the edge of the steps on the stairs. Check carpeting to make sure that it is firmly attached to the stairs. Fix carpet that is loose or worn. What can I do on the outside of my home? Use bright outdoor lighting. Fix the edges of walkways and driveways and fix any cracks. Remove anything that might make you trip as you walk through a door, such as a raised step or threshold. Trim any bushes or trees on paths to your home. Check to see if handrails are loose or broken and that both sides of all steps have handrails. Install guardrails along the edges of any raised decks and porches. Clear paths of anything that can make you trip, such as tools or rocks. Have leaves, snow, or ice cleared regularly. Use sand or salt on paths during winter. Clean up any spills in your garage right away. This includes grease or oil spills. What other actions can I take? Wear shoes that: ?Have a low heel. Do not wear high heels. ?Have rubber bottoms. ?Feel good on your feet and fit well. ?Are closed at the toe. Do not wear open-toe sandals. Use tools that help you move around if needed. These include: ?Canes. ?Walkers. ?Scooters. ?Crutches. Review your medicines with your doctor. Some medicines can make you feel dizzy. This can increase your chance of falling. Ask your doctor what else you can do to help prevent falls. Where to find more information Centers for Disease Control and Prevention, STEADI: www.cdc.gov National [place] on Aging: www.diann.nih.gov Contact a doctor if: You are afraid of falling at home. You feel weak, drowsy, or dizzy at home. You fall at home. Summary There are many simple things that you can do to make your home safe and to help prevent falls. Ways to make your home safe include removing things that can make you trip and installing grab barsin the bathroom. Ask for help when making these changes in your home. This information is not intended to replace advice given to you by your health care provider. Make sure you discuss any questions you have with your health care provider. Document Revised: 04/26/2022 Document Reviewed: 02/25/2021 [employer] Patient Education 2022 [employer]. Follow Up Care 03/10/2023 11:16:19 With:Andres RODRIGUEZ, LEATHA Zaman Address: [place] [id number]- When:2 to 4 weeks [facility]07-10-2023 Evaluation note* Encounter Date Diagnosis Assessment Notes Treatment Notes Treatment Clinical Notes Feb, Obstructive sleep apnea (ICD-10 - G47.33) AHI 12 [employer] Other 07-03-2023 Miscellaneous Notes* Telephone Encounter - Joyce Mohamud RN - 02/07/2023 2:27 PM EDT RN returned daughter's phone call, no answer, left a message that I faxed over the last office visit notes to Dr. Tobi Pacheco to [facility] [phone]. Joyce Mohamud RN * Telephone Encounter - Blaise Higginbotham Pss - 02/07/2023 2:11 PM EDT Dtr, Linh ALATORRE on [facility] Nurse Line on 02/07 @ 1:25P. Linh stated she was sorry she missed the Nurse call re: mom. Pt. verified 1940. Linh provided the fax number for Dr. Tobi Pacheco . Linh's contact number is . Thank you, Blaise documented in this encounterK[facility]-03-2023 Miscellaneous Notes* Telephone Encounter - Joyce Mohamud RN - 02/07/2023 12:55 PM EDT RN called daughter Linh back, no answer, left a detailed message that we will need the fax number to sent the requested notes to the new PCP Tobi Pacheco, [place], [place]. Joyce Mohamud RN * Telephone Encounter - Blaise Higginbotham [facility] - 02/07/2023 12:01 PM EDT Dtr, Linh ALATORRE on [facility] Nurse Line on 02/10 @9:53A. Linh states pt was recently seen by the CULINARY SPECIALIST.She is wondering if she can get a Report sent to pt PCP, Tobi Pacheco in [place], [place]. Linh is POA and requesting a return call back at . Thank you, Blaise documented in this encounterKettering [facility]06-23-2023 Miscellaneous Notes* Telephone Encounter - LORY Vallejo - 01/28/2023 4:20 PM EDT 01/28/23 Secure e-mail with the following information was sent to the pt's dtr for review: Thank you for your patience as I gathered the information listed below. Unfortunately, many of the senior communities in the area requested are not pet friendly. I have indicated the communities thatare listed as pet friendly. I know this narrows down the list quite a bit. Another resource that you may find helpful is The [facility]-Information &Referral line. Call [phone] and select option 0 for all other services & request senior resources. When reviewing the list of communities, please reference the abbreviation gonzalez listed below. IL (Independent Living) AL (Assisted Living) AL-MC (Assisted Living with secure memory care unit) AL-MS (Assisted Living with memory care support) SN-Snf LTC-MC (long-term care with secure memory care unit) LTC-MS (long-term care with memory support) [facility] [place] (IL; AL; SN) *Pet friendly [address] [place] [address] [facility] (AL; SN) *Pets welcome [address] [place] [address] [facility]) *Pet friendly for small pets [address] [place] [address] [facility] ([place]; AL; AL-MC; SN) *Possibly pet friendly [address] [place] [address] [facility] (MC; SN; LTC) [address] [place] [address] [facility] [place] ([place]; AL) [address] [facility] , [place], [place] [address] [facility] ([place]; AL; AL-MC; SN; LTC) [address] [facility]. [place], [place] [address] [facility] (AL) [address] [place] [address] [facility] ([place]; AL; AL-MC; SN) [address] [place] [address] SW will remain available. LORY Vallejo documented in this encounterKettering Health [facility]06-14-2023 Instructions* Patient Instructions* LORY Vallejo - 01/19/2023 2:35 PM EDT Dear Ms. Glover and daughter Linh, Our team had the pleasure of seeing you today at [facility]. We reviewed your evaluation of memory, mood and overall functioning. We discussed the testing we completed. We use a tool called the MOCA (Eyad Cognitive Assessment). This is a brief tool to measure cognitive function. Caridad's score was 19/30. Normal range is 26/30. Our brief cognitive testing revealed some inefficiency in forming new memories, visuospatial skills, planning tasks, retrieval of memories and words, verbal fluency, abstraction, delayed recall (short-term memory after 2 minutes) and long-term memory. We discussed the outcome of our testing which showed there is some cognitive impairment that is severe enough to interfere with daily functioning. This is known as dementia. We discussed that the cause is likely multi-factorial. Medications We recommend taking the Donepezil (Aricept) 5mg in the morning after breakfast. We recommend taking vitamin B12, 500 mcg daily. This can be found over the counter. Medical Alert System We recommend utilizing a Medical Alert System to increase safety in the home. In the event of a fall or an emergency, help is available at the push of a button. Some options for this are: [employer]: Call or visit https://Skorpios Technologies/ & click on Seniors tab -Mobile System. -Fall detection. -Medication reminders. -GPS monitoring. -Alirio fencing option for wandering. -Checks heart rate, blood pressure, temperature, and oxygen levels. -Worn as a wristband. Life Alert: Call or visit www.Ultora -Offers home based and mobile system. -Offers a push button for the shower. -Comes in a lanyard. Lifefone: Call or visit www.Indochino -Home based or mobile system. -Fall detection. -GPS detects location of emergency. -Water proof. -Worn as a lanyard, wristband, or offers a push button. Lifeline: Call or visit www.Musistic -Home based & mobile system. -Fall detection. -GPS detects location of the emergency. -Water resistant; can be worn in the shower. -Worn as a wristband or lanyard. Lively: Call or visit wwwEnerVault/medical-alerts -Offers mobile systems. -Offers fall detection. -Comes in a lanyard. Also compatible with MR Presta. Medical Alert: Call or visit www.ASC [place] -Offers home based & mobile system. -Mobile system offers GPS monitoring. -Fall detection for all systems. -Systems can be worn in the bath or shower. -Two way speaker allows you to communicate with a trained response specialist who will determine who to contact for help (family, friends, or emergency responders). -Comes in a lanyard or wristband. Medical Guardian: Call or visit www.medicalRioglass Solar HoldingnGlobalPay -Offers home based and mobile system. -GPS tracking for mobile system. -Water resistant, not water proof. -Worn as a lanyard or wristband. Mobile Help: Call or visit www.Fiestah -Offers home based & mobile system. -Comes in a lanyard or small mobile device. UnaliWear: Call or visit www.WedPics (deja mi) -Home based and mobile system. -Fall detection. -GPS detects location of the emergency. -Water resistant; can be worn in the shower. -Medication reminders. -Worn as a wristband. Insurance companies may offer their own medical alert system for a fee. Below are questions to ask when selecting a Medical Alert System: Do I need a home based or mobile system (used for active individuals)? Do I want a monitored (/ access to emergency team) or non-monitored (calls a friend or family member) system? Does the device offer fall detection? If so what is the cost? What is the activation fee? What is the monthly fee? What is the cost of the device? Is a contract required? Are there fees to cancel the service? Is the device water proof? Can it be worn in the shower? Education & Support for Memory Changes When an individual experiences memory changes, no matter how mild or severe, we encourage individuals and families to educate themselves, learn communication tips, and ways to adjust expectations over time. There are many resources available online. The Alzheimer's Association (web site: alz.org/[place]) An organization that provides education and support to individuals/caregivers affected by memory loss, Alzheimer's disease, and all forms of dementia. Available 24 hours a day, 7 days per week. Contact: Local: ; Toll free: [phone] Family Caregiver [place] (web site: Caregiver.org) JEOY Carter-- a secure online solution for quality information, support, and resources for family caregivers. Contact: Toll-free number: [phone] Advance Directives As per our discussion of advanced directives, we understand you have these documents in place whichis excellent. Follow Up Our office can be reached by calling [phone] Option 1. Sincerely, Quiana Waterman APRN.SCARIFIER OPERATOR CARLINE Strickland, LORY Camarena documented in this encounterKettering Health [facility]06-14-2023 NoteHNO ID: [id number] Author: Quiana Waterman APRN.SCARIFIER OPERATOR Service: ? Author Type: Nurse Specialist Type: Progress Notes Filed: 01/20/2023 12:16 PM Note Text: Date: January 19, 2023 CARIDAD GL[place] [id number] [facility] [address] [facility] INITIAL PATIENT EVALUATION Reason for Consult: Cognitive changes, Mobility decline, and Behavioral changes I had the pleasure of seeing this 82 year old year old female at the [facility]. The patient is referred by SELF Patient is accompanied by and information obtained from Daughter Linh and available records in the system. Background and History of Present Illness: Here for guidance on next steps. Goal is to keep the pt safe at home. Change in behavior noted approximately 6 years ago, shortly after the of her spouse. The pt began drinking more, she was gambling and lost money. She has succumbed to scams. 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 She has had chronic cognitive impairment with gradual progression and as of February with neuropsychology she retained enough independence to be considered to have mild cognitive impairment, but I think things have significantly progressed past then. With the prominent visual hallucinations, dementia with Lewy bodies will be a consideration. She does not have any outward parkinsonian manifestations. No acute pathology on MRI of brain. The pt is followed by Dr. Faustin for psychiatry. She has a history of MDD and anxiety (skin picking behavior). Symptoms Cognition Memory problems include short-term memory impairment, impaired learning ability, rapid forgetting and forgetting events. Long-term memory impairment and repeating statements and questions are not present. Difficulty coming up with common words and impaired fluency contribute to communication problems. There is impaired reasoning, impaired judgment and impaired planning. There are episodes of confusion. In daily life, she needs assistance with instrumental ADL?s (physical assist in the shower). Behavior Mood is described as anxious (skin picking behavior). Personality has changed-Change following of spouse-drinking more, gambling, going out. She is sleeping more. Appetite is increased for sweets. Behavioral aberrations: - visual hallucinations and delusions - children, faces in windows, long hair on her arm hallucinations Physical/Motor The patient has had unsteadiness and falling. Functional Assessment Staging (FAST) 4=Decreased ability to perform complex tasks, e.g., planning dinner for guests, handling personal finances (such as forgetting to pay bills), difficulty marketing, etc. Onset and Progression: 6 years ago, change in behavior following the of her spouse-going out, gambling, lost money, drinking more. Previous and Current treatment: Donepezil (Aricept) 5 mg, Quetiapine (per dtr is NOT taking), busPIRone hydrochloride, escitalopram Functional Abilities ADL'S: Bathing:Needs assistance getting in and out of the tub-dtr assists Dressing: Independent Eating: Independent Toileting: Independent Ambulation: independent Falls in last 12 months:Yes, frequent falls, fell today. Some falls have been associated with alcohol use. Assistive device: other rollator walker IADL's Meal prep/Cooking: Needs assistance Shopping: Needs assistance Housekeeping: Needs assistance Laundry: Needs assistance Medication mgt.: Needs assistance Pill box in use? Yes, filled by dtr Telephone: Independent Finances: Needs assistance Who does? Daughter Linh Transportation: Needs assistance Is the patient driving: No, stopped driving one year ago. 5. Activities of Daily Living Lomas Index of [place] in Activities of Daily Living (A.D.L.) Bathing: Need help with bathing more than one part of the body, getting in or out of the tub or shower. Requires total bathing. (0 POINTS) Transferring: Moves in and out of bed or chair unassisted. Mechanical transfer aids are acceptable. (1 POINT) Feeding: Gets food from plate into mouth without help. Preparation of food may be done by another person. (1 POINT) Sami - Ector Instrumental Activities of Daily Living Scale (I.A.D.L.) Ability to Use Telephone: Dials a few well-known numbers (1 POINT) Shopping: Needs to be accompanied on any shopping trip (0 POINTS) Food Preparation: Needs to have meals prepared and served (0 POINTS) Housekeeping: Needs help with all home maintenance tasks (1 POINT) Laundry: Launders small items-rinses stockings, etc. (1 POINT) Mode of Transportation: Travel limited to taxi or automobile with assistance of (more content not included)...[facility]06-14-2023 Nurse Note* Coty Duque RN - 01/19/2023 12:46 PM EDT Caridad Glover is a 82 year old year old right handed woman Accompanied by: daughter. 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 Patient states that she is having trouble at home and with memory Vital Signs: BP 160/81 (BP Site: Left Arm, BP Position: Sitting, BP Cuff Size: Regular Adult) Pulse (!) 54 Wt 84.5 kg (186 lb 4.8 oz) BMI 36.38 kg/m Coty Duque RN documented in this [facility] History of Present illness Narrative* Quiana Waterman, DIETARY COOK.SCARIFIER OPERATOR - 01/19/2023 12:30 PM EDT Images from the original note were not included. Date: January 19, 2023 CARIDAD GLOVER [id number] [facility] [id number] [facility] INITIAL PATIENT EVALUATION Reason for Consult: Cognitive changes, Mobility decline, and Behavioral changes I had the pleasure of seeing this 82 year old year old female at the [facility]. The patient is referred by SELF Patient is accompanied by and information obtained from Daughter Linh and available records in the system. Background and History of Present Illness: Here for guidance on next steps. Goal is to keep the pt safe at home. Change in behavior noted approximately 6 years ago, shortly after the of her spouse. The pt began drinking more, she was gambling and lost money. She has succumbed to scams. 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 She has had chronic cognitive impairment with gradual progression and as of February with neuropsychology she retained enough independence to be considered to have mild cognitive impairment, but I think things have significantly progressed past then. With the prominent visual hallucinations, dementia with Lewy bodies will be a consideration. She does not have any outward parkinsonian manifestations. No acute pathology on MRI of brain. The pt is followed by Dr. Faustin for psychiatry. She has a history of MDD and anxiety (skin pickingbehavior). Symptoms Cognition Memory problems include short-term memory impairment, impaired learning ability, rapid forgetting and forgetting events. Long-term memory impairment and repeating statements and questions are not present. Difficulty coming up with common words and impaired fluency contribute to communication problems. There is impaired reasoning, impaired judgment and impaired planning. There are episodes of confusion. In daily life, she needs assistance with instrumental ADL s (physical assist in the shower). Behavior Mood is described as anxious (skin picking behavior). Personality has changed- Change following of spouse-drinking more, gambling, going out. She is sleeping more. Appetite is increased for sweets. Behavioral aberrations: - visual hallucinations and delusions - children, faces in windows, long hair on her arm hallucinations Physical/Motor The patient has had unsteadiness and falling. Functional Assessment Staging (FAST) 4=Decreased ability to perform complex tasks, e.g., planning dinner for guests, handling personal finances (such as forgetting to pay bills), difficulty marketing, etc. Onset and Progression: 6 years ago, change in behavior following the of her spouse-going out,gambling, lost money, drinking more. Previous and Current treatment: Donepezil (Aricept) 5 mg, Quetiapine (per dtr is NOT taking), busPIRone hydrochloride, escitalopram Functional Abilities ADL'S: Bathing:Needs assistance getting in and out of the tub-dtr assists Dressing: Independent Eating: Independent Toileting: Independent Ambulation: independent Falls in last 12 months:Yes, frequent falls, fell today. Some falls have been associated with alcohol use. Assistive device: other rollator walker IADL's Meal prep/Cooking: Needs assistance Shopping: Needs assistance Housekeeping: Needs assistance Laundry: Needs assistance Medication mgt.: Needs assistance Pill box in use? Yes, filled by dtr Telephone: Independent Finances: Needs assistance Who does? Daughter Linh Transportation: Needs assistance Is the patient driving: No, stopped driving one year ago. 5. Activities of Daily Living Lomas Index of [place] in Activities of Daily Living (A.D.L.) Bathing: Need help with bathing more than one part of the body, getting in or out of the tub or shower. Requires total bathing. (0 POINTS) Transferring: Moves in and out of bed or chair unassisted. Mechanical transfer aids are acceptable.(1 POINT) Feeding: Gets food from plate into mouth without help. Preparation of food may be done by another person. (1 POINT) Sami - Ector Instrumental Activities of Daily Living Scale (I.A.D.L.) Ability to Use Telephone: Dials a few well-known numbers (1 POINT) Shopping: Needs to be accompanied on any shopping trip (0 POINTS) Food Preparation: Needs to have meals prepared and served (0 POINTS) Housekeeping: Needs help with all home maintenance tasks (1 POINT) Laundry: Launders small items-rinses stockings, etc. (1 POINT) Mode of Transportation: Travel limited to taxi or automobile with assistance of another (1 POINT) Responsibility for Own Medications: Takes responsibility if medication is prepared in advance in separate dosage (0 POINTS) Ability to Handle Finances: Incapable of handling money (0 POINTS) -Score: 4 (higher is more independent, 0-8) 6. Driving Do you know how to determine when the person living with dementia should stop driving or how to discuss this sensitive topic with him/her? The person I care for doesn t drive. Living Situation: Alone with her cat, many acres to maintain. Agencies involved: Meals on Wheels MWF Special Concerns: Hallucinations/Delusions: Yes: pt is currently denying VH-admits she had them in the past; previously saw children, peoples faces in the windows, long hair on her arm that she would pull . She believes that people have stolen items from her when she has sold them. Pt stated today the VH have largely ceased, but may see squares on the wall Sleep: NAWAF with no CPAP Emergency: unrealistic plan:did not state 911 Are there guns in the home? No longer Advanced Directives Durable POA: Yes, copy received; Linh dtr is HPOA. Financial POA: Yes Consult [facility] CIGAR TOBACCO REHANDLER if not completed: role introduced SW will send info on local [facility] communities to the pt's dtr for review. 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 -1 son traumatically in 2008; 1 dtr Linh is local and the pt's main support. -Guardian No -Is patient a ? No I have personally reviewed and verified the above information. Quiana Waterman, DIETARY COOK.SCARIFIER OPERATOR PAST MEDICAL HISTORY Diagnosis Date Glaucoma suspect of both eyes H/O heartburn Psoriatic arthritis (HCC) pt on mtx ALLERGIES Allergen Reactions Cortisone Other: See Comments Spinal fluid suppressed Medrol Dose Pack [M* Other: See Comments Severe headaches Current Outpatient Medications on File Prior to Visit Medication Sig donepezil (ARICEPT) 10 mg tablet Take 10 mg by mouth daily at bedtime. folic acid 400 mcg tablet Take 0.4 mg by mouth. Magnesium Oxide 250 mg magnesium tab Take 250 mg by mouth. meloxicam (MOBIC) 15 mg tablet Take 15 mg by mouth once daily. metoprolol succinate ER (TOPROL XL) 25 mg 24 hr tablet Take 25 mg by mouth once daily. QUEtiapine (SEROQUEL) 25 mg tablet Take by mouth. tiZANidine (ZANAFLEX) 4 mg tablet Take by mouth. vitamin E, dl,tocopheryl acet, (VITAMIN E, DL, ACETATE,) 180 mg (400 unit) capsule Take 180 mg by mouth. latanoprost (XALATAN) 0.005 % ophthalmic solution Use 1 Drop in both eyes once daily. EPINEPHrine (EPIPEN) 0.3 mg/0.3 mL auto-injector Zholprkenuwio-Bhvvevya-Yzccgp (CENTRUM SILVER) tab Take 1 tablet by mouth once daily. Cholecalciferol, Vitamin D3, (VITAMIN D) 1,000 unit cap Take 1 capsule by mouth once daily. No current facility-administered medications on file prior to visit. FAMILY HISTORY Problem Relation Age of Onset Coronary Artery Disease Father Cancer Sister hodgkin's, melanoma Social History Tobacco Use Smoking status: Never Smokeless tobacco: Never Substance Use Topics Alcohol use: Yes Comment: beer, wine (3-4 beers a day on occasion) Drug use: No Patient REPORT: -she is not aware of reason for visit -states she would not have come on her own Review of systems: Alcohol: hx of usage, pt denies current use, drinks NA beer Tobacco:No Weight change: Up: yes down: No Appetite:Good Constipation, Diarrhea: NO Urinary incontinence: Yes, Pads? No Nocturia: Yes Chest pain: No Difficulty breathing: NO Edema:yes Dyspnea: NO Presence of pain and effect on function: I don't know Current level of physical activity: uses walker/rolator Memory concerns: lousy -and getting worse Depression: yes, Anxiety: No Falls/injuries/accidents since last visit: Yes Patient-Entered Data: Patient-Reported No flowsheet data found. PHYSICAL EXAMINATION: BP w/Orthostatic Vitals Date and Time Orthostatic BP Orthostatic Pulse BP Pulse BP Position BP Site BP Cuff Size 01/19/23 1239 155/77 60 -- -- Standing Left Arm Regular Adult 01/19/23 1238 -- -- 160/81 54 Sitting Left Arm Regular Adult General appearance: Well appearing, alert, in no acute distress, well-hydrated, well nourished. Skin: Skin color, texture, turgor normal, no suspicious rashes or lesions, Positives: Excoriation: mild to left elbow, is also red (pt itching this area during the visit); mild healed/vs red areas toB/L hips and buttocks Eyes: Anicteric sclera. Pupils are equally round and reactive to light. Extraocular movements are intact. Extremities: Edema: B/L feet, pitting NEUROLOGICAL EXAM Cognition alert Orientation: x4 Appearance: normal grooming Eye contact: normal Facial expression: appropriate Psychomotor: Slowed Speech/Language: unremarkable -can name, repeat with no dysarthria Mood: + states is depressed Affect: pleasant PDW:Yes per dtr SI:No Self-injurious behavior:NO Emotional state: Depressed, engaged in visit Thought Process: logical and tangential Thought Content: suspiciousness per dtr report Hallucinations: Pt states the VH have largely diminished; states she may see squares on the wall Judgment: impaired due to dementia and impaired due to lack of insight Insight: poor Early Cognitive Assessment (MoCA) MoCA 01/19/2023 MOCA TOTAL SCORE 19 out of 30 Cranial Nerves: I - Smell NA II - Visual acuity, visual fan NT II,III - Pupillary reactions Intact III,IV, - Extra-ocular movements, including opening of the eyes Intact V - Facial sensation, movements of the jaw Intact VII - Facial movements and gustation Intact VIII -Hearing and balance Intact IX,X - Swallowing, elevation of the palate, Intact V,VII,X,XII - Voice and speech Intact XI - Shrugging the shoulders and turning the head Intact XII - Movement and protrusion of tongue Intact Motor Strength is 5/5 in upper and 5/5 in lower extremities Upper extremity rigidity is 0: Normal bilaterally No tremor No bradykinesia, abnormal movements or postural instability Foot stomp is normal bilaterally Arm roll is normal bilaterally Horizontal arm extension: no tremor Pronator drift: negative Reflexes +2 bilateral in U/L extremities Coordination Cerebellar: no dysmetria or dysdiadochokinesis, normal pronation/supination Finger fine motor: Tap w/ thumb normal bilaterally, Flex./ext. normal bilaterally-mild impaired -ie, slowed Finger to nose: good Posture and Gait Rise from chair with arms folded: good Gait: Slowed gait, antalgic Step Height: diminished Gait deviation: no Heel walk: Not attempted Romberg: negative No Data Recorded (0-4) minimal depression, (5-9) mild depression, (10-14) moderate depression, (15-19) moderately severe depression, (20-27) severe depression Brief Neuropsychiatric Evaluation: Clock Drawin/5 Abstract thinking was poor. intermediate memory was fair to poor. She could name 11 animals in 60 seconds and 3 words beginning with letter F in one minute. No results found for: TSH, B12, FOLATE, [id number] results available in scanned documents. However B-12 was not available. Most recent MRI/CT brain: Will upload MRI images of brain 05/10/22 FINDINGS: There is no infarct, intracranial hemorrhage, mass effect, midline shift, extra- axial collection, abnormal enhancement, or evidence of hydrocephalus. Mild generalized cerebral volume loss is present, with mild patchy supratentorial white matter changes most consistent with chronic SVID. 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 Dtr is looking for our opinion/ 2nd opinion on her diagnosis. This is her first visit to [facility]. MoCA administered with score of 19/30. This brief cognitive testing revealed deficits in forming new memories, visuospatial skills, learning, planning tasks, keeping track of when events have happened, retrieval of memories and words, verbal fluency, abstraction, judgment, and depression. Physical/ Neuro exam notable for slowed gait, skin excoriation to left elbow, and B/L hip/buttocks fromskin picking. Functionality: Assisted with most IADL's, and shower. Overall, this patient's presentation is consistent with dementia-probable multifactorial as above. Dtr provided multiple past medical records that included NPT, CT and MRI reports,as well as inpatient records which were reviewed. I agree with the neurology evaluation completed while inpatient in May 2022, that patient has progressed from MCI to dementia, with associated psychosis (visual hallucinations, delusions) and some compulsive tendencies (scratching and picking at skin). Pt reports a hx of visual hallucinations, but they have largely subsided; she states she may see square on the wall. Her visual spatial function on the MOCA today was not typical of DLB. She does not have parkinsonian manifestations on exam. There are no reports of RBD however she resides alone. I agree with her current treatment. She may benefit from a trial of Memantine (Namenda) would deferto her current providers in [facility], neurology and psychiatry. Pt resides alone with assist from daughter. We discussed that providing her assisted living level of care. In my opinion pt would do well in [place] and would appreciate the attention and supervision. Dtr shares pt has succumbed to scams and continues to be solicited. We suggested they remove the land line and place her cell # on the DO NOT CALL list. I recommended to dtr that pt continue to follow with her providers including psychiatry in the event that a SEE is necessary in the future. (F03.90) Multifactorial dementia (HCC) (primary encounter diagnosis) Plan: Could consider Memantine (Namenda) (F10.10) Alcohol abuse Plan: Continue to refrain (R44.1) Visual hallucinations Comment: Much less per pt Plan: Continue same treatment plan. (G47.33) NAWAF (obstructive sleep apnea) Comment: NO CPAP-pt refused PLAN -Follow up as needed. I spent a total of 100 minutes on the date of the service which included preparing to see the patient, [id number] patient care, completing clinical documentation, obtaining and/or reviewing separately obtained history, counseling and educating the patient/family/caregiver, ordering medications, te sts, or procedures, communicating with other HCPs (not separately reported) and care coordination (not separately reported). Quiana Waterman APRN, Geriatric Clinical Nurse Specialist [facility] CC: 1. Rojas Brown, OD, (fax) [phone] 2. Caridad Glover, [id number] [facility] [address] documented in this encounterK[facility]05-13-[facility] Evaluation note* Encounter Date Diagnosis Assessment Notes Treatment Notes Treatment Clinical Notes December, Closed nondisplaced fracture of styloid process of left ulna, initial encounter (ICD-10 - S52.615A) [facility] Other 05-12-2023 Evaluation note* Encounter Date Diagnosis Assessment Notes Treatment Notes Treatment Clinical Notes December, Left arm pain (ICD-10 - M79.602) [facility] Other 03-07-2023 Evaluation note* Encounter Date Diagnosis Assessment Notes Treatment Notes Treatment Clinical Notes Oct, Puncture wound (ICD-10 - T14.8XXA) [facility] Other 03-06-2023 Evaluation note* Encounter Date Diagnosis Assessment Notes Treatment Notes Treatment Clinical Notes Oct, Open bite of unspecified finger without damage to nail, initial encounter (ICD-10 - S61.259A) Oct, Cellulitis of left upper extremity (ICD-10 - L03.114) Elevate and soak in warm water daily. Oct, Bitten by cat, initial encounter (ICD-10 - W55.01XA) Check on Tetanus status [facility] Other 02-06-2023 Evaluation note* Encounter Date Diagnosis Assessment Notes Treatment Notes Treatment Clinical Notes Sep, NSVT (nonsustained ventricular tachycardia) (ICD-10 - I47.29) Continue Metoprolol and avoid stimulants. Encouraged to exercise and lose weight. Sep, Obstructive sleep apnea (ICD-10 - G47.33) This patient is aware of the benefits associated with NAWAF: With continued use, the patient reduces the risk for CO, CVA, HTN, cardiac dysrhythmias and sudden cardiac deaths.The patient is also aware of the association between NAWAF and morning headaches, daytime somnolence, fatigue and obesity Not able to tolerate masks. Sep, Generally unsteady (ICD-10 - R26.81) Secondary to arthritis, body habitus, age and neuropathy. Fall precautions, suggest use of wheeled walker. Sep, MCI (mild cognitive impairment) with memory loss (ICD-10 - G31.84) f/u Neurology and Psych. Continue Aricept and consider adding Namenda. Discussed referral to [facility]. Discussed use of antipsychotics for sleep and behavioral concerns. Sep, Psoriatic arthritis (ICD-10 - L40.50) f/u Rheumatology. Psoriasis in remission. Sep, Primary osteoarthritis of both knees (ICD-10 - M17.0) Fall precautions. Quad exercises, ice/heat and Voltaren Gel. 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 Sep, Mild episode of recurrent major depressive disorder (ICD-10 - F33.0) Healthy diet, keep active and continue SSRI. Suggested adding Buspar for augmentation [facility] Other 01-20-2023 Evaluation note* Encounter Date Diagnosis Assessment Notes Treatment Notes Treatment Clinical Notes Aug, Other specified disorders of bone density and structure, right thigh (ICD-10 - M85.851) Aug, Other specified disorders of bone density and structure, left thigh (ICD-10 - M85.852) [facility] Other 12-30-2022 Miscellaneous Notes* Telephone Encounter - Jenn Barclay - 08/06/2022 8:25 AM EST Patient has been reminded to check with pharmacy 24 to 48hr after request. Pt is identified by name and birthdate: Yes Patient phones requesting refills as follows: Requested Prescriptions Pending Prescriptions Disp Refills latanoprost (XALATAN) 0.005 % ophthalmic solution 2.5 mL 0 Please review and advise. documented in this encounterK[facility]10-31-2022 Miscellaneous Notes* Telephone Encounter - Chaparro Yarbrough, OD - 06/07/2022 2:18 PM EDT Gave 1 refill last refill pt need to be seen before any refills Patrice Yarbrough * Telephone Encounter - PATSY Gaston - 06/07/2022 1:21 PM EDT Patient called regarding refill. documented in this encounterK[facility]10-05-2022 Hospital Discharge instructions Patient Education 05/12/2022 14:42:47 Core Measures: Stroke (Cerebrovascular Accident) [facility], (Custom) Stroke (Cerebrovascular Accident) A stroke is acute of brain tissue, and it is a neurologic emergency. A stroke can cause permanent loss of function of the central nervous system (brain). If the symptoms of a stroke end withoutcomplications in 24 hours, it is diagnosed as a transient ischemic attack (TIA). If the symptoms are not resolved within 24 hours, it is defined as a stroke. CAUSES A stroke is caused by a decrease of oxygen supply to an area of your brain. It is usually the result of a small blood clot or hardening of the arteries. Blockages in, or damage to, the carotid arteries leading to the brain can also cause a stroke. Bleeding in the brain can cause, or accompany, a stroke. SYMPTOMS These symptoms usually develop suddenly (or may be newly present upon awakening from sleep): Loss of vision. Double vision. Confusion. Numbness or weakness on one side of the face or body. Inability to speak (aphasia). DIAGNOSIS Your caregiver can often determine the presence or absence of a stroke based on your symptoms, history, and examination. A CT scan of the brain is usually performed to confirm the stroke, look for causes, and determine the severity. Other tests may be done to find the cause of the stroke, including: An EKG and heart monitoring. An echocardiogram (ultrasound evaluation of the heart). An ultrasound evaluation of your carotid arteries. Determination of blood oxygen level and blood tests. PREVENTION The likelihood of a stroke can be decreased by appropriate treatment of high blood pressure, high cholesterol, diabetes, and by stopping smoking. RISK FACTORS: If you have been told by your doctor or nurse practitioner that you have any of the following risk factors for stroke, work with your health pharmacist critical care to control them. High Blood Pressure: High blood pressure is one of the main causes of stroke. It is the most important risk factor to control. Take your blood pressure medication, lose weight, increase your activity, and limit your salt intake to help control your blood pressure.Take your your blood pressure and write it down and then take them to your next doctor's appointment. Smoking: If you smoke: QUIT! We can help. Please call [facility]essation [facility] at [phone] ([facility]), or [phone], ext. [phone] Diabetes: Work with your healthcare professional to keep your blood sugar under control. Check yourblood sugar and take the results to your next doctor's visit. Take your medications as directed. Eating a healthy diet and exercising will also help keep your diabetes under control. For information on [facility] please call, . Carotid or other Artery Diseases: The carotid arteries in your neck carry blood to the brain. A stroke can be caused by a blood clot blocking an artery that has been damaged by a fatty buildup insidethe artery wall. Discuss ways to manage this with your health care provider. Atrial Fibrillation (A Fib): In A fib, your heart does not have a normal beat. This may allow clotsto form and puts you at a greater risk for having a stroke. Work with your health care provider to control your A fib. Your doctor may order special medication that helps prevent clots from forming. High blood cholesterol or high blood fats: High cholesterol increases your risk of stroke. Exerciseregularly, but talk to your health care provider first. A diet low in fat and cholesterol can help.If you have any questions about a low fat, low cholesterol diet, you can call our [employer] educational technology coordinator at [phone] Ext. [phone]. The goal for total cholesterol is less than 200, and for LDL or thebad cholesterol is less than 100. Lifestyle Management: You increase your risk of stroke if you are overweight or obese, are not veryactive, or drink too much alcohol. Enjoy a diet rich in fruits and vegetables. Exercise regularly and drink alcohol in moderation or no more than two drinks a day for men and no more than one drink aday for non- women, or don't drink at all. This will help decrease your risk of stroke. Oral Contraceptives: Taking control pills or the pill can be a risk factor for stroke especially if you smoke. Discuss using the oral contraceptives and your risk of stroke with your health pharmacist critical care. TREATMENT TIME IS OF THE ESSENCE! Medications to dissolve a blood clot can only be used within four and a half hours of the onset of symptoms. After that time, treatment of stroke depends on duration of symptoms, severity, and cause. Medications and diet measures may be used to address diabetes, high blood pr essure, and other risk factors. Physical therapy, speech therapy, and occupational therapy specialists will assess you and work to improve any functions impaired by the stroke. Measures will be takento prevent short and assisted complications, including aspiration pneumonia, blood clots in the leg s, bedsores, and falls. HOME CARE INSTRUCTIONS Care at home after a stroke can be complicated. Medications Blood thinners may be used to prevent another stroke. Blood thinners need to be used exactly as instructed. Medicines may also be used to control risk factors for a stroke. Be sure you understand all your medication instructions. It is very important to not run out of your medicine. [place] while you still have a one-week supply. Do not stop taking your medicine without speaking to your healthcare professional. Take all of your medications or an updated list of your medications to all of your doctor's appointments. Physical, occupational, and speech therapy Ongoing therapy is often necessary to maximize recovery after a stroke. If you have been advised to use a walker or a cane, use it at all times. Be sure youkeep your therapy appointments. Diet Certain diets may be prescribed to address high blood pressure, high cholesterol, or diabetes.Foods may need to be a special consistency (soft, pureed, small bites) to avoid food going into your lungs or choking. Home safety A safe home environment is important to reduce the risk of falls. Your caregiver may arrange for specialists to evaluate your home. Grab bars in the bedroom and bathroom are often important. Your caregiver may arrange for special equipment to be used at home, such as raised toilets and a seat for the shower. It s important to know and control your risk factors, but it is also important to recognize the signs and symptoms of stroke/TIA and know what to do: Call 911 if any of these things happen: Sudden numbness or weakness of the face, arm, or leg especially on one side of the body. Sudden confusion, trouble speaking, or understanding. Sudden trouble seeing in one or both eyes. Sudden trouble walking, dizziness, loss of balance or coordination Sudden severe headache with no known cause * It is very important for you to follow-up with your Primary Care Doctor and your Neurologist after you go home. Make sure that you keep your doctor visits. Remember: TIME LOST is BRAIN LOST Resources: for more information on strokes, log onto [email or web address] or www.strokeassociation.org or call the [place] [employer] at (004) 724- 9919. Revised 08/2018 Follow Up Care 05/09/2022 20:58:58 With:EDMOND PACHECO Address: [address] [place] [address]- Business (1) When:05/19/2022 15:00:00 With:Austyn Campos MD, [facility] Address: [address] [address] [place] [id number]- Business (1) When:06/08/2022 11:15:00 [facility]10-05-2022 Evaluation + Plan noteExtracted from: Title:Discharge Note Author:Davy RODRIGUEZ, Alex Hernandez ate:05/12/22 Stable Discharge To, Anticipated II - Home with home health Discharge Diet(s): Regular (05/12/22 14:42:00) Prescriptions busPIRone 10 mg Tab, 5 mg= 0.5 tab(s), Oral, TID SEROquel 25 mg Tab, 25 mg= 1 tab(s), Oral, Bedtime Home Folate 0.4 mg Tab, 0.4 mg= 1 tab(s), Oral, Daily latanoprost Opth 0.005% Batool, 1 drop(s), OPTH, Daily Lexapro 20 mg Tab, 20 mg= 1 tab(s), Oral, Daily magnesium oxide 250 mg oral tablet, 250 mg= 1 tab(s), Oral, Daily metoprolol 25 mg ER Tab, 25 mg= 1 tab(s), Oral, Daily Multiple Vitamins Tab, 1 tab(s), Oral, Daily pilocarpine 5 mg Tab, 5 mg= 1 tab(s), Oral, TID, Not taking tiZANidine 4 mg Tab Vitamin D3 2000 intl units, 2000 International_Unit, Oral, Daily vitamin E 180 mg oral capsule, 180 mg= 1 cap(s), Oral, Daily With When Contact Information Andres RODRIGUEZ, LEATHA Zaman Within 2 to 4 weeks [address] [address] [place] [address]- Additional Instructions: Core Measures: Stroke (Cerebrovascular Accident) [facility], (Custom) Extracted from: Title:APSO Note- Neurology Author:Driss Moraes RN Date:05/11/22 ASSESSMENT: 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 She has had chronic cognitive impairment with gradual progression and as of February with neuropsychology she retained enough independence to be considered to have mild cognitive impairment, but I think things have significantly progressed past then. With the prominent visual hallucinations, dementia with Lewy bodies will be a consideration. She does not have any outward parkinsonian manifestations. No acute pathology on MRI of brain. PLAN: 1. Serum B1 level is pending given her alcohol abuse history. B12 291. TSH okay. 2. Continue Seroquel 25 mg nightly (QTc is acceptable); avoid first generation antipsychiatric medications in case this is LBD 4. Strong consideration for starting donepezil 5 mg twice daily 5. In terms of the compulsive tendencies, I am glad she is on an SSRI. She might need substitution for another SSRI or adjunct medication. Defer to Dr. Faustin. 6. Reevaluation with neuropsychology would be advisable 7. Outpatient follow-up with neurology 1. Acute confusion (R41.0: Disorientation, unspecified) 2. Arm paresthesia, left (R20.2: Paresthesia of skin) 3. Hypertensive urgency (I16.0: Hypertensive urgency) 4. Hyponatremia (E87.1: Hypo-osmolality and hyponatremia) 5. History of PSVT (paroxysmal supraventricular tachycardia) (Z86.79: Personal history of other diseases of the circulatory system) 6. 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 She has had chronic cognitive impairment with gradual progression and as of February with neuropsychology she retained enough independence to be considered to have mild cognitive impairment, but I think things have significantly progressed past then. With the prominent visual hallucinations, dementia with Lewy bodies will be a consideration. She does not have any outward parkinsonian manifestations. Need to rule out central pathology, especially to the occipital lobes. But visual fan are full. PLAN: 1. MRI brain with and without contrast 2. Checking a serum B1 level given her alcohol abuse history. B12 291. TSH okay. 3. Start Seroquel 25 mg nightly (QTc is acceptable); avoid first generation antipsychiatric medications in case this is LBD 4. Strong consideration for starting donepezil 5 mg twice daily 5. In terms of the compulsive tendencies, I am glad she is on an SSRI. She might need substitution for another SSRI or adjunct medication. Defer to Dr. Faustin. 6. Reevaluation with neuropsychology would be advisable 7. Outpatient follow-up with neurology 1. Acute confusion (R41.0: Disorientation, unspecified) 2. Arm paresthesia, left (R20.2: Paresthesia of skin) 3. Hypertensive urgency (I16.0: Hypertensive urgency) 4. Hyponatremia (E87.1: Hypo-osmolality and hyponatremia) 5. History of PSVT (paroxysmal supraventricular tachycardia) (Z86.79: Personal history of other diseases of the circulatory system) 6. Obesity (E66.9: Obesity, unspecified) Extracted from: Title:Admission H & P Author:Reuben DREW DO Date:05/10/22 1. Acute confusion (R41.0: D isorientation, unspecified) Patient implies she has had difficulty with her thought process for several weeks. It was reported to me by the emergency department who I believe had access to family that she has had acute worsening. Patient does not recall this however this may be due to an acute process that is resulting in change in mental status that is recent. Await availability of family members to see if they can shed some additional light. Had considered role of hyponatremia which is still a possibility ,however it appears that she has been chronic hyponatremiic. We will check thyroid function studies, inflammatory markers, liver function studies. With reports through the emergency department of slurred speech and left arm paresthesias rule out a vascular event as well. We will check an MRI. Additional studies if the MRI is abnormal or if otherwise directed by neurology. Ordered: Hepatic Function Panel Sedimentation Rate Automated TSH With T4fr Reflex Vitamin B12 Level 2. 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 However there was a history obtained emergency department of acute onset. We will check vitamin B12. See above regarding vascular work-up 3. Hypertensive urgency (I16.0: Hypertensive urgency) Question if this played a role in patient's symptoms or if this is a catecholamine response to threatened vascular event. We will monitor anticipate she will require any antihypertensives would like to complete above work-up first however 4. Hyponatremia (E87.1: Hypo-osmolality and hyponatremia) Appears to be chronic. She does have a history of chronic alcohol use but suggest she is only drinking 2 and a beers daily. We will check thyroid function studies cortisol levels Ordered: Cortisol TSH With T4fr Reflex 5. History of PSVT (paroxysmal supraventricular tachycardia) (Z86.79: Personal history of other diseases of the circulatory system) Per cardiology report of a monitor that showed runs of SVT as well as runs of non-SVT asymptomatic. In light of above we will monitor on telemetry. We will check thyroid function studies 6. Obesity (E66.9: Obesity, unspecified) With multiple comorbidities patient would benefit from weight loss Orders: heparin, 5,000 unit(s) = 1 mL, Injection, SubCutaneous, q12hr, Routine, Start date 05/10/22 6:00:00 EDT, 05/10/22 5:52:00 EDT ondansetron, 4 mg = 2 mL, Injection, IV Push, q6hr PRN Nausea, Routine, Start date 05/10/22 5:52:00 EDT, 05/10/22 5:52:00 EDT Ambulate with Assistance Basic Metabolic Panel Below the Knee Intermittent Pneumatic Compression Device Cardiac Monitoring CBC w/ Auto Diff Communication Order Communication Order Communication Order Physician to Nursing Consult to Neurology Dysphagia Screen Evaluate Need For Continued Telemetry HgbA1c Lipid Panel MRI Brain w/o Contrast Neurological Assessment Place in Status Precautions Resuscitation Status - Full Stroke Education Stroke Quality Measures Vital Signs Weight Patient is admitted as an observation with the anticipation she would not require 2 midnight stay Extracted from: Title:ED Note Author:Vicente Rausch DO Date :05/10/22 Acute confusion (R41.0: Diso rientation, unspecified) Arm paresthesia, left (R20.2: Paresthesia of skin) Orders: aspirin, 324 mg = 4 tab(s), Tab-Chew, Oral, Once, Stop date 05/09/22 22:43:00 EDT, STAT, Start date 05/09/22 22:43:00 EDT, 05/09/22 22:43:00 EDT Add on Test Automated Diff B-Type Natriuretic Peptide Basic Metabolic Panel CBC w/ Auto Diff [place] Stroke Scale Communication Order Physician to Nursing Continuous Pulse Oximetry CT Head or Brain w/o Contrast ECG 12 Lead Adult ED Cardiac Monitoring ED Physician consult Hospitalist for continued care eGFR Ethanol Level Extra [place] Tube Extra SST Tube Hepatic Function Panel Oxygen Therapy PT & PTT Routine Capillary Glucose POC Saline Lock Insert Stroke Quality Measures Troponin 0 Hr. Troponin 3 Hr. UA With Cult Reflex Vital Signs XR Chest Single View Future Appointments Appointment Date:05/17/2022 07:30:00 AM Scheduled Provider: Location:[facility] [place] Appointment Type:PT 45 (FT) Appointment Date:05/20/2022 07:30:00 AM Scheduled Provider: Location:[facility] [place] Appointment Type:PT 45 (FT) Appointment Date:05/25/2022 07:30:00 AM Scheduled Provider: Location:[facility] [place] Appointment Type:PT 45 (FT) Appointment Date:05/28/2022 07:30:00 AM Scheduled Provider: Location:[facility] [place] Appointment Type:PT Re-Eval 45 (FT) Appointment Date:06/01/2022 07:45:00 AM Scheduled Provider: Location:[facility] [place] Appointment Type:PT 45 (FT) Appointment Date:06/03/2022 07:30:00 AM Scheduled Provider: Location:[facility] [place] Appointment Type:PT 45 (FT) Appointment Date:06/08/2022 07:30:00 AM Scheduled Provider: Location:[facility] [place] Appointment Type:PT 45 (FT) Appointment Date:06/10/2022 07:30:00 AM Scheduled Provider: Location:[facility] [place] Appointment Type:PT 45 (FT) Appointment Date:06/15/2022 07:30:00 AM Scheduled Provider: Location:[facility] [place] Appointment Type:PT 45 (FT) Appointment Date:06/17/2022 07:30:00 AM Scheduled Provider: Location:[facility] [place] Appointment Type:PT 45 (FT) Appointment Date:06/22/2022 07:30:00 AM Scheduled Provider: Location:[facility] [place] Appointment Type:PT 45 (FT) Appointment Date:06/25/2022 07:30:00 AM Scheduled Provider: Location:[facility] [place] Appointment Type:PT Re-Eval 45 (FT) Diagnostic Tests Pending * Vitamin B1 05/10/22 Future Scheduled Tests Laboratory* Lipid Panel 12/15/21 [facility]05-10-2022 Evaluation + Plan note Future Scheduled Tests Laboratory* Lipid Panel 12/15/21 Radiology* NM Myocardial Spect Rest/Stress 1 Day 12/15/21 [facility]05-10-2022 Evaluation + Plan note Future Scheduled Tests Laboratory* Lipid Panel 12/15/21 [facility]05-08-2022 Evaluation + Plan noteExtracted from: Title:Discharge Note Author:YONY RODRIGUEZ, Mitra Zackary e:12/13/21 1. Fall (W19.XXXA: Unspecified fall, initial encounter) Ordered: [facility] Hospital Care/Day Moderate 25 Minutes 17421 2. Closed head injury (S09.90XA: Unspecified injury of head, initial encounter) Ordered: [facility] Hospital Care/Day Moderate 25 Minutes 03216 3. Nasal fracture (S02.2XXA: Fracture of nasal bones, initial encounter for closed fracture) Ordered: [facility] Care/Day Moderate 25 Minutes 65309 4. Facial laceration (S01.81XA: Laceration without foreign body of other part of head, initial encounter) Ordered: [facility] Care/Day Moderate 25 Minutes 03180 5. Acute alcohol intoxication (F10.929: Alcohol use, unspecified with intoxication, unspecified) Ordered: [facility] Care/Day Moderate 25 Minutes 13650 6. Hyponatremia (E87.1: Hypo-osmolality and hyponatremia) Ordered: [facility] Care/Day Moderate 25 Minutes 07523 7. Hx of ventricular tachycardia (Z86.79: Personal history of other diseases of the circulatory system) Ordered: [facility] Care/Day Moderate 25 Minutes [id number] Orders: Basic Metabolic Panel Basic Metabolic Panel eGFR Magnesium Level stable Home Prescriptions Keflex 500 mg Cap, 500 mg= 1 cap(s), Oral, TID Home CeleBREX 200 mg Cap, 200 mg= 1 cap(s), Oral, Daily Folate 0.4 mg Tab, 0.4 mg= 1 tab(s), Oral, Daily, Investigating latanoprost Opth 0.005% Batool, 1 drop(s), OPTH, Daily magnesium oxide 250 mg oral tablet, 250 mg= 1 tab(s), Oral, Daily, Investigating metoprolol 25 mg ER Tab, 25 mg= 1 tab(s), Oral, Daily Multiple Vitamins Tab, 1 tab(s), Oral, Daily, Investigating: Pt states she is taking several OTC vitamins at home, but not sure which ones listed in her list pilocarpine 5 mg Tab, 5 mg= 1 tab(s), Oral, TID tiZANidine 4 mg Tab Vitamin D3 2000 intl units, 2000 International_Unit, Oral, Daily, Investigating vitamin E 180 mg oral capsule, 180 mg= 1 cap(s), Oral, Daily, Investigating With When Contact Information Follow up with primary care provider Additional Instructions: Hyponatremia Hyponatremia Alcohol Intoxication Extracted from: Title:Admission H & P Author:Steffen Castle MD Date:12/13/21 1. Fall (W19.XXXA: Unspecifi ed fall, initial encounter) - Most likely 2/2 the EtOH intoxication - PT/OT for safe discharge planning. - Encouraged EtOH cessation Ordered: Initial Observation Care/Day High 70 min 77191 2. Closed head injury (S09.90XA: Unspecified injury of head, initial encounter) - Will monitor at this time. - Plan as above Ordered: Initial Observation Care/Day High 70 min 38743 3. Nasal fracture (S02.2XXA: Fracture of nasal bones, initial encounter for closed fracture) - Follow up with ENT as an outpatient. Ordered: Initial Observation Care/Day High 70 min 14236 4. Facial laceration (S01.81XA: Laceration without foreign body of other part of head, initial encounter) Sutured follow up with your PCP to have the sutures removed Ordered: Initial Observation Care/Day High 70 min 73147 5. Acute alcohol intoxication (F10.929: Alcohol use, unspecified with intoxication, unspecified) - [facility] protocol ordered - Banana bag ordered - Will hold of on the Ativan as the patient is acutely intoxicated Ordered: Initial Observation Care/Day High 70 min 54549 6. Hyponatremia (E87.1: Hypo-osmolality and hyponatremia) - IV fluids as needed. Ordered: Initial Observation Care/Day High 70 min 60335 7. Hx of ventricular tachycardia (Z86.79: Personal history of other diseases of the circulatory system) - Will monitor on telemetry. Ordered: Initial Observation Care/Day High 70 min 09211 Orders: acetaminophen, 650 mg = 2 tab(s), Tab, Oral, q6hr PRN Pain, Routine, Start date 12/13/21 2:59:00 EDT, 12/13/21 2:59:00 EDT enoxaparin, 40 mg = 0.4 mL, Injection, SubCutaneous, Daily, Routine, Start date 12/13/21 9:00:00 EDT, 12/13/21 2:59:00 EDT hydrALAZINE, 10 mg = 0.5 mL, Injection, IV Push, q6hr PRN Other (see comment), Routine, Start date 12/13/21 2:59:00 EDT, 12/13/21 2:59:00 EDT hydrOXYzine, 25 mg = 1 tab(s), Tab, Oral, Once PRN Agitation, Routine, Start date 12/13/21 3:01:00 EDT, 12/13/21 3:01:00 EDT ibuprofen, 800 mg = 1 tab(s), Tab, Oral, TID PRN Pain, Routine, Start date 12/13/21 2:59:00 EDT, 12/13/21 2:59:00 EDT ondansetron, 4 mg = 2 mL, Injection, IV Push, q6hr PRN Nausea, Routine, Start date 12/13/21 2:59:00 EDT, 12/13/21 2:59:00 EDT Sodium Chloride 0.9% intravenous solution 1,000 mL + multivitamin 10 mL + thiamine 100 mg + folic a, 1,000 mL, IV, 100 mL/hr, for 1 dose(s), Stop date 12/13/21 12:59:00 EDT, Routine, Start date 12/13/21 3:00:00 EDT, 10 hour(s), Total volume (mL): 1,000, 72 kg, 1.73, m2 Ambulate with Assistance Below the Knee Intermittent Pneumatic Compression Device Cardiac Monitoring Clinical [place] Withdrawal Assessment Clinical [place] Withdrawal Assessment Clinical [place] Withdrawal Assessment Clinical [place] Withdrawal Assessment Communication Order Physician to Nursing Evaluate Need For Continued Telemetry Intake and Output Notify Provider Vital Signs Notify Provider Vital Signs Occupational Therapy Evaluate Patient, Develop a Plan of Care and Implement Plan Oxygen Protocol Physical Therapy Evaluate Patient, Develop a Plan of Care and Implement Plan Place in Status Precautions Pulse Oximetry Regular Diet Resuscitation Status - Full Vital Signs Vital Signs Vital Signs Weight Extracted from: Title:ED Note Author:Ermias Brown, Gavin Denton te:12/13/21 1. Fall (W19.XXXA: Unspecifi ed fall, initial encounter) 2. Closed head injury (S09.90XA: Unspecified injury of head, initial encounter) 3. Nasal fracture (S02.2XXA: Fracture of nasal bones, initial encounter for closed fracture) 4. Facial laceration (S01.81XA: Laceration without foreign body of other part of head, initial encounter) 5. Acute alcohol intoxication (F10.929: Alcohol use, unspecified with intoxication, unspecified) 6. Hyponatremia (E87.1: Hypo-osmolality and hyponatremia) 7. Hx of ventricular tachycardia (Z86.79: Personal history of other diseases of the circulatory system) Orders: acetaminophen, 325 mg = 1 tab(s), Tab, Oral, Once, Stop date 12/13/21 1:39:00 EDT, Start date 12/13/21 1:39:00 EDT acetaminophen, Tab, Misc, Once, Stop date 12/13/21 1:37:33 EDT, Physician Stop, 12/13/21 1:37:33 EDT lidocaine, 40 mg, 4 mL, Injection, IntraDermal, Once, Stop date 12/13/21 1:12:00 EDT, STAT, Start date 12/13/21 1:12:[address] Maxillofacial w/o Contrast ED Physician consult Hospitalist for continued care Magnesium Level XR Chest Single View XR Pelvis 1 or 2 Views Future Appointments Appointment Date:12/15/2021 10:30:00 AM Scheduled Provider:Juaquin Owen MD Location:[facility]iology Clinic Appointment Type:Cardiology New Patient (FT) Diagnostic Tests Pending * Basic Metabolic Panel 12/14/21 [facility]05-08-2022 Hospital Discharge instructions Patient Education 12/13/2021 10:14:05 Hyponatremia Hyponatremia Hyponatremia is when the amount of salt (sodium) in your blood is too low. When sodium levels are low, your cells absorb extra water, which causes them to swell. The swelling happens throughout the body, but it mostly affects the brain. What are the causes? This condition may be caused by: Certain medical conditions, such as: ?Heart, kidney, or liver problems. ?Thyroid problems. ?Adrenal gland problems. ?Metabolic conditions, such as Collier disease or syndrome of inappropriate antidiuretic hormone (SIADH). Severe vomiting or diarrhea. Certain medicines or illegal drugs. Dehydration. Drinking too much water. Eating a diet that is low in sodium. Large fernandes on your body. Excessive sweating. What increases the risk? You are more likely to develop this condition if you: Have long-term (chronic) kidney disease. Have heart failure. Have a medical condition that causes frequent or excessive diarrhea. Participate in intense physical activities, such as marathon running. Take certain medicines that affect the sodium and fluid balance in the blood. Some of these medicine types include: ?Diuretics. ?NSAIDs. ?Some opioid pain medicines. ?Some antidepressants. ?Some seizure prevention medicines. What are the signs or symptoms? Symptoms of this condition include: Headache. Nausea and vomiting. Being very tired (lethargic). Muscle weakness and cramping. Loss of appetite. Feeling weak or light-headed. Severe symptoms of this condition include: Confusion. Agitation. Having a rapid heart rate. Passing out (fainting). Seizures. Coma. How is this diagnosed? This condition is diagnosed based on: A physical exam. Your medical history. Tests, including: ?Blood tests. ?Urine tests. How is this treated? Treatment for this condition depends on the cause. Treatment may include: Getting fluids through an IV that is inserted into one of your veins. Medicines to correct the sodium imbalance. If medicines are causing the condition, the medicines will need to be adjusted. Limiting your water or fluid intake to get the correct sodium balance. Monitoring in the hospital setting to closely watch your symptoms for improvement. Follow these instructions at home: Take [id number] and prescription medicines only as told by your health care provider. Many medicines can make this condition worse. Talk with your health care provider about any medicines that you are currently taking. Carefully follow a recommended diet as told by your health care provider. Carefully follow instructions from your health care provider about fluid restrictions. Do not drink alcohol. Keep all follow-up visits as told by your health care provider. This is important. Contact a health care provider if: You develop worsening nausea, fatigue, headache, confusion, or weakness. Your symptoms go away and then return. You have problems following the recommended diet. Get help right away if: You have a seizure. You pass out. You have ongoing diarrhea or vomiting. Summary Hyponatremia is when the amount of salt (sodium) in your blood is too low. When sodium levels are low, your cells absorb extra water, which causes them to swell. The swelling happens throughout the body, but it mostly affects the brain. Treatment for this condition depends on the cause. It may include IV fluids, medicines, and limiting your fluid intake. This information is not intended to replace advice given to you by your health care provider. Make sure you discuss any questions you have with your health care provider. Document Released: 07/15/2003 Document Revised: 06/08/2019 Document Reviewed: 06/08/2019 [employer] Patient Education 2020 [employer]. 12/13/2021 10:14:05 Hyponatremia Hyponatremia Hyponatremia is when the amount of salt (sodium) in your blood is too low. When sodium levels are low, your cells absorb extra water, which causes them to swell. The swelling happens throughout the body, but it mostly affects the brain. What are the causes? This condition may be caused by: Certain medical conditions, such as: ?Heart, kidney, or liver problems. ?Thyroid problems. ?Adrenal gland problems. ?Metabolic conditions, such as Collier disease or syndrome of inappropriate antidiuretic hormone (SIADH). Severe vomiting or diarrhea. Certain medicines or illegal drugs. Dehydration. Drinking too much water. Eating a diet that is low in sodium. Large fernandes on your body. Excessive sweating. What increases the risk? You are more likely to develop this condition if you: Have long-term (chronic) kidney disease. Have heart failure. Have a medical condition that causes frequent or excessive diarrhea. Participate in intense physical activities, such as marathon running. Take certain medicines that affect the sodium and fluid balance in the blood. Some of these medicine types include: ?Diuretics. ?NSAIDs. ?Some opioid pain medicines. ?Some antidepressants. ?Some seizure prevention medicines. What are the signs or symptoms? Symptoms of this condition include: Headache. Nausea and vomiting. Being very tired (lethargic). Muscle weakness and cramping. Loss of appetite. Feeling weak or light-headed. Severe symptoms of this condition include: Confusion. Agitation. Having a rapid heart rate. Passing out (fainting). Seizures. Coma. How is this diagnosed? This condition is diagnosed based on: A physical exam. Your medical history. Tests, including: ?Blood tests. ?Urine tests. How is this treated? Treatment for this condition depends on the cause. Treatment may include: Getting fluids through an IV that is inserted into one of your veins. Medicines to correct the sodium imbalance. If medicines are causing the condition, the medicines will need to be adjusted. Limiting your water or fluid intake to get the correct sodium balance. Monitoring in the hospital setting to closely watch your symptoms for improvement. Follow these instructions at home: Take vvxm-anb-wnwsmtr and prescription medicines only as told by your health care provider. Many medicines can make this condition worse. Talk with your health care provider about any medicines that you are currently taking. Carefully follow a recommended diet as told by your health care provider. Carefully follow instructions from your health care provider about fluid restrictions. Do not drink alcohol. Keep all follow-up visits as told by your health care provider. This is important. Contact a health care provider if: You develop worsening nausea, fatigue, headache, confusion, or weakness. Your symptoms go away and then return. You have problems following the recommended diet. Get help right away if: You have a seizure. You pass out. You have ongoing diarrhea or vomiting. Summary Hyponatremia is when the amount of salt (sodium) in your blood is too low. When sodium levels are low, your cells absorb extra water, which causes them to swell. The swelling happens throughout the body, but it mostly affects the brain. Treatment for this condition depends on the cause. It may include IV fluids, medicines, and limiting your fluid intake. This information is not intended to replace advice given to you by your health care provider. Make sure you discuss any questions you have with your health care provider. Document Released: 07/15/2003 Document Revised: 06/08/2019 Document Reviewed: 06/08/2019 [employer] Patient Education 2020 [employer]. 12/13/2021 10:13:59 Alcohol Intoxication Alcohol Intoxication Alcohol intoxication occurs when a person no longer thinks clearly or functions well (becomes impaired) after drinking alcohol. Intoxication can occur with just one drink. The legal definition of alcohol intoxication depends on the amount of alcohol in the blood (blood alcohol concentration, JEWEL). JEWEL of 80 100 mg/dL or higher is commonly considered legally intoxicated. The level of impairment depends on: The amount of alcohol the person had. The person's age, gender, and weight. How often the person drinks. Whether the person has other medical conditions, such as diabetes, seizures, or a heart condition. Alcohol intoxication can range from mild to severe. The condition can be dangerous, especially if the person: Also took certain drugs or prescription medicines. Drinks a large amount of alcohol in a short period of time (binge drinks). ?For women, binge drinking is having four or more drinks at one time. ?For men, binge drinking is having five or more drinks at one time. If you or anyone around you appears intoxicated, speak up and act. What are the causes? This condition is caused by drinking alcohol. What increases the risk? The following factors may make you more likely to develop this condition: Peer pressure in young adults. Difficulty managing stress. History of drug or alcohol abuse. Combining alcohol with drugs. Family history of drug or alcohol abuse. Low body weight. Binge drinking. What are the signs or symptoms? Symptoms of alcohol intoxication can vary from person to person. Symptoms can be mild, moderate, orsevere. Symptoms of mild alcohol intoxication may include: Feeling relaxed or sleepy. Having mild difficulty with coordination, speech, memory, or attention. Symptoms of moderate alcohol intoxication may include: Extreme emotions, like anger or sadness. Moderate difficulty with coordination, speech, memory, or attention. Symptoms of severe alcohol intoxication may include: Severe difficulty with coordination, speech, memory, or attention. Passing out. Vomiting. Confusion. Slow breathing. Coma. Intoxication can change quickly from mild to severe. It can cause coma or , especially in people who are not exposed to alcohol often. How is this diagnosed? Your health care provider will ask you how much alcohol you drank and what kind you had. Intoxication may also be diagnosed based on: Your symptoms and medical history. A physical exam. A blood test that measures JEWEL. A smell of alcohol on your breath. How is this treated? Treatment for alcohol intoxication may include: Being monitored in an emergency department, hospital, or treatment center until your JEWEL comes downand it is safe for you to go home. IV fluids to prevent or treat loss of fluid in the body (dehydration). Medicine to treat nausea or vomiting or to get rid of alcohol in the body. Counseling (brief intervention) about the dangers of using alcohol. Treatment for substance use disorder. Oxygen therapy or a breathing machine (ventilator). Long-term (chronic) exposure to alcohol can have long-term effects on your brain, heart, and gastrointestinal system. These effects can be serious and may also require treatment. Follow these instructions at home: Eating and drinking Do not drink alcohol if: ?Your health care provider tells you not to drink. ?You are , may be , or are planning to become . ?You are under the legal drinking age (21 years old in the [place] ?You are taking medicines that should not be taken with alcohol. ?You have a medical condition, and alcohol makes it worse. ?You need to drive or perform activities that require you to be alert. ?You have substance use disorder. Ask your health care provider if alcohol is safe for you. If your health care provider allows you to drink alcohol, limit how much you have. You may drink: ?0 1 drink a day for women. ? 0 2 drinks a day for men. ?Be aware of how much alcohol is in your drink. In the [place] one drink equals one 12 oz bottle of beer (355 mL), one 5 oz glass of wine (148 mL), or one 1 oz shot of hard liquor (44 mL). Avoid drinking alcohol on an empty stomach. Stay hydrated. Drink enough fluid to keep your urine pale yellow. Avoid caffeine because it can dehydrate you. Avoid drinking more than one drink per hour. When having multiple drinks, drink water or a non-alcoholic beverage between alcoholic drinks. General instructions Take ayqz-trd-orxchzt and prescription medicines only as told by your health care provider. Do not drive after drinking any amount of alcohol. Plan for a designated rolloff truck driver or another way to go home. Have someone responsible stay with you while you are intoxicated. You should not be left alone. Keep all follow-up visits as told by your health care provider. This is important. Contact a health care provider if: You do not feel better after a few days. You have problems at work, at school, or at home due to drinking. Get help right away if: You have any of the following: ?Moderate to severe trouble with coordination, speech, memory, or attention. ?Trouble staying awake. ?Severe confusion. ?A seizure. ?Light-headedness. ?Fainting. ?Vomiting bright red blood or material that looks like coffee grounds. ?Bloody stool (feces). The blood may make your stool bright red, black, or tarry. It may also smellbad. ?Shakiness when trying to stop drinking. ?Thoughts about hurting yourself or others. If you ever feel like you may hurt yourself or others, or have thoughts about taking your own life,get help right away. You can go to your nearest emergency department or call: Your local emergency services (911 in the [place] A suicide crisis helpline, such as the National Suicide Prevention Lifeline at . Thisis open 24 hours a day. Summary Alcohol intoxication occurs when a person no longer thinks clearly or functions well after drinkingalcohol. If your health care provider says that alcohol is safe for you, limit alcohol intake to no more than 1 drink a day for women (no drinks if you are ) and 2 drinks a day for men. One drink equals 12 oz of beer, 5 oz of wine, or 1 oz of hard liquor. Contact your health care provider if drinking has caused you problems at work, school, or home. Get help right away if you have thoughts about hurting yourself or others. This information is not intended to replace advice given to you by your health care provider. Make sure you discuss any questions you have with your health care provider. Document Released: 05/04/2006 Document Revised: 11/14/2018 Document Reviewed: 11/14/2018 [employer] Patient Education 2020 [employer]. Follow Up Care 12/12/2021 22:19:19 With:Follow up with primary care provider Address:Unknown When: Unknown [facility]10-16-2014 Evaluation note* Encounter Date Diagnosis Assessment Notes Treatment Notes Treatment Clinical Notes May, Dysuria (ICD-10 - R30.0) Dysuria [employer] Other Evaluation + Plan note Future Appointments Appointment Date:11/17/2021 11:00:00 AM Scheduled [facility] Future Appointments Appointment Date:01/27/2022 08:15:00 PM Scheduled Provider: Location:.SLEEP LAB_ Appointment Type:B[employer]ISHER Sleep Study PSG (FT) Future Scheduled Tests Laboratory* Lipid [facility] Future Appointments Appointment Date:06/11/2022 03:30:00 PM Scheduled Provider: Location[facility] Appointment Type:PT 45 (FT) Appointment Date:06/17/2022 11:45:00 AM Scheduled Provider[facility] Type:PT 45 (FT) Appointment Date:06/22/2022 11:45:00 AM Scheduled Provider: Location[facility] Appointment Type:PT 45 (FT) Appointment Date:06/24/2022 02:30:00 PM Scheduled Provider: [facility] Type:PT 45 (FT) Appointment Date:06/29/2022 11:45:00 AM Scheduled Provider: [facility] Type:PT 45 (FT) Appointment Date:07/02/2022 11:45:00 AM Scheduled Provider: [place] [place] Appointment Type:PT 45 (FT) Appointment Date:07/06/2022 12:30:00 PM Scheduled Provider: [place] Appointment Type:PT Re-Eval 45 (FT) Appointment Date:07/08/2022 11:15:00 AM Scheduled Provider: [place] Appointment Type:PT 45 (FT) Appointment Date:07/13/2022 11:45:00 AM Scheduled Provider: [place] [place] Appointment Type:PT 45 (FT) Appointment Date:07/15/2022 11:45:00 AM Scheduled Provider: [place] Appointment Type:PT 45 (FT) Appointment Date:07/20/2022 11:45:00 AM Scheduled Provider: [place] Appointment Type:PT 45 (FT) Appointment Date:07/22/2022 10:45:00 AM Scheduled Provider: [place] Appointment Type:PT 45 (FT) Appointment Date:07/27/2022 11:45:00 AM Scheduled Provider: [place] Appointment Type:PT 45 (FT) Appointment Date:07/29/2022 11:45:00 AM Scheduled Provider: [place] Appointment Type:PT 45 (FT) Appointment Date:08/03/2022 11:00:00 AM Scheduled Provider: [place] Appointment Type:PT Re-Eval 45 (FT) Diagnostic Tests Pending * Methylmalonic Acid 06/09/22 Future Scheduled Tests Laboratory* [facility]id [facility] Future Appointments Appointment Date:03/30/2023 01:45:00 PM Scheduled Provider: Location:[place] [place] Appointment Type:PT Re-Eval 45 (FT) [facility] Evaluation + Plan note Future Appointments Appointment Date:03/31/2023 01:45:00 PM Scheduled Provider: Location:[place] [place] Appointment Type:PT 45 (FT) Appointment Date:04/06/2023 02:45:00 PM Scheduled Provider: [place] Appointment Type:PT 45 (FT) Appointment Date:04/08/2023 01:30:00 PM Scheduled Provider: [place] [place] Appointment Type:PT 45 (FT) Appointment Date:04/13/2023 01:15:00 PM Scheduled Provider: [place] [place] Appointment Type:PT 45 (FT) Appointment Date:04/18/2023 11:30:00 AM Scheduled Provider: [place] [place] Appointment Type:PT 45 (FT) Appointment Date:04/20/2023 01:30:00 PM Scheduled Provider: [place] [place] Appointment Type:PT 45 (FT) Appointment Date:04/25/2023 11:15:00 AM Scheduled Provider: [place] Appointment Type:PT 45 (FT) Appointment Date:04/28/2023 12:30:00 PM Scheduled Provider: [place] Appointment Type:PT Re-Eval 30 (FT) Diagnostic Tests Pending * Urine Culture 03/30/23 * Urine Culture [facility] Future Appointments Appointment Date:05/17/2023 11:00:00 AM Scheduled Provider: [place] Appointment Type:PT 45 (FT) Appointment Date:05/20/2023 12:00:00 PM Scheduled Provider: [place] Appointment Type:PT 45 (FT) Appointment Date:05/24/2023 11:00:00 AM Scheduled Provider: [place] Appointment Type:PT 45 (FT) Appointment Date:05/26/2023 12:30:00 PM Scheduled Provider: [place] Appointment Type:PT Re-Eval 30 (FT) Diagnostic Tests Pending * Urine Culture [facility]11[facility]23 [facility] Future Appointments Appointment Date:06/22/2023 10:30:00 AM Scheduled Provider: [place] Appointment Type:PT 45 (FT) Appointment Date:06/27/2023 11:15:00 AM Scheduled Provider: [place] Appointment Type:PT Re-Eval 45 (FT) Diagnostic Tests Pending * Urine Culture 06[facility]21/23 [facility] Future Appointments Appointment Date:06/27/2023 11:15:00 AM Scheduled Provider: [place] Appointment Type:PT Re-Eval 45 (FT) [facility] Future Appointments Appointment Date:03/30/2024 11:30:00 AM Scheduled Provider:Gera Thomas PA-C [facility] Appointment Type:Cardiology Follow Up (FT) Future Scheduled Tests Radiology* Echo Transthoracic Complete 03/02/24 [facility] evaluation + Plan note Future Appointments Appointment Date:03/30/2024 11:30:00 AM Scheduled Provider:Gera Thomas PA-C Location:[facility] Appointment Type:Cardiology Follow Up (FT) [facility] evaluation + Plan note Future Appointments Appointment Date:07/11/2024 08:15:00 AM Scheduled Provider:Karlee Montes De Oca MD Location:[facility] Appointment Type:URO New Patient Diagnostic Tests Pending * Urine Culture 05/30/24 [facility] evaluation + Plan note Future Appointments Appointment Date:07/11/2024 08:15:00 AM Scheduled Provider:Karlee Montes De Oca MD Location:[facility] Appointment Type:URO New Patient Diagnostic Tests Pending * Urine Culture 06/18/24 [facility] evaluation + Plan note Future Appointments Appointment Date:07/11/2024 08:15:00 AM Scheduled Provider:Karlee Montes De Oca MD Location:[facility] Appointment Type:URO New Patient [facility] evaluation + Plan note Future Appointments Appointment Date:10/18/2024 08:20:00 AM Scheduled Provider:CARON CARVAJAL PA-C Location:[facility] Appointment Type:URO Office Visit Future Scheduled Tests Radiology* XR Abdomen 1 View 07/02/24 * US Renal 07/02/24 [facility] evaluation + Plan note Future Appointments Appointment Date:10/18/2024 08:20:00 AM Scheduled Provider:CARON CARVAJAL PA-C Location[facility] Appointment Type:URO Office Visit Diagnostic Tests Pending * Urine Culture 07/02/24 Future Scheduled Tests Radiology* XR Abdomen 1 View 07/02/24 * US Renal 07/02/24 [facility] evaluation + Plan note Future Appointments Appointment Date:10/18/2024 08:20:00 AM Scheduled Provider:CAR[facility]JAL [facility] evaluation + Plan note Future Appointments Appointment Date:09/17/2024 08:20:00 AM Scheduled Provider:CARON CARVAJAL PA-C [facility] Office Visit [facility] evaluation noteNo assessment information available [facility] Work Phone: evaluation noteNo InformationNopemisc[facility] [employer] Other Evaluation note* Diagnosis 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 elsewhere Alcohol abuse Alcohol abuse, unspecified Visual hallucinations Psychophysical visual disturbances NAWAF (obstructive sleep apnea) Obstructive sleep apnea (adult) (pediatric) [facility] in [facility] Diagnosis Unwitnessed fall- Primary documented in this encounter [facility] note* Diagnosis Fall, initial encounter- Primary documented in this encounter [facility] note* Diagnosis Onset Date Resolution Status Admit Date Alzheimer dementia acute March 15, 2025 2:30pm Chronic heart failure with preserved ejection fraction (HFpEF) acute March 15, 2025 2:30pm Chronic venous insufficiency of lower extremity acute March 15, 2025 2:30pm Compulsive skin picking acute A ugust 2024 2:30pm Major depression acute March 152024 2:30pm Medicare annual wellness vis it, subsequent acute March 15, 2025 2:30pm NAWAF (obstructive sleep apnea) acute March 15, 2025 2:30pm Psoriatic arthritis acute Augus t 2024 2:30pm Pulmonary hypertension acute Au evgeny 2024 2:30pm [facility] Work Phone: [employer] general Narrative - Reported* Type Description Date Medical History Osteoarthritis Medical History H/O spinal stenosis Medical History Headache Medical History Allergic contact dermatitis due to plants, except food Medical History Acute pharyngitis due to other s pecified organisms Medical History Allergic contact dermatitis due to chemical Medical History Dizziness Medical History Mild episode of recurrent major depressive disorder Medical History NSVT (nonsustained ventricular t achycardia) Medical History Osteoarthritis of hips, bilatera l Medical History Chronic pruritus Medical History Cellulitis of hand, left Medical History Lumbar spondylosis Medical History Post-traumatic osteoarthritis of right shoulder Medical History ALZHEIMER'S DEMENTIA WITH BEHAVI ORAL DISTURBANCE Medical History Generally unsteady Medical History Visual hallucination Medical History Bilateral leg weakness Medical History Obstructive sleep apnea Medical History MCI (mild cognitive impairment) with memory loss Medical History Herpes labialis Medical History Adenomatous polyp of descending colon Medical History Cellulitis of finger of right ordaz nd Medical History Bee sting reaction, accidental or unintentional, initial encounter Medical History Dyspnea on effort Medical History Elevated blood press ure reading in office without diagnosis of hypertension Medical History Xerosis cutis Medical History RYAN (dyspnea on exertion) Medical History Palpitation Medical History Hyponatremia Medical History Concussion without l oss of consciousness, subsequent encounter Medical History Fracture of nasal lenny lydia, subsequent encounter for fracture with delayed healing Medical History Deviated nasal septum Medical History Intertriginous dermatitis associ ated with moisture Medical History Bacterial folliculitis Medical History Cellulitis of left leg Medical History Psoriatic arthritis Surgical History tubal ligation Surgical History back surgery Surgical History colonoscopy Surgical History wisdom teeth Hospitalization History see above [employer] Other [employer] general Narrative - Reported* Type Description Date Medical History Osteoarthritis Medical History H/O spinal stenosis Medical History Headache Medical History Allergic contact dermatitis due to plants, except food Medical History Acute pharyngitis due to other s pecified organisms Medical History Allergic contact dermatitis due to chemical Medical History Dizziness Medical History Mild episode of recurrent major depressive disorder Medical History NSVT (nonsustained ventricular t achycardia) Medical History Osteoarthritis of hips, bilatera l Medical History Chronic pruritus Medical History Cellulitis of hand, left Medical History Lumbar spondylosis Medical History Post-traumatic osteoarthritis of right shoulder Medical History ALZHEIMER'S DEMENTIA WITH BEHAVI ORAL DISTURBANCE Medical History Generally unsteady Medical History Visual hallucination Medical History Bilateral leg weakness Medical History Obstructive sleep apnea Medical History MCI (mild cognitive impairment) with memory loss Medical History Herpes labialis Medical History Adenomatous polyp of descending colon Medical History Cellulitis of finger of right ordaz nd Medical History Bee sting reaction, accidental or unintentional, initial encounter Medical History Dyspnea on effort Medical History Elevated blood press ure reading in office without diagnosis of hypertension Medical History Xerosis cutis Medical History RYAN (dyspnea on exertion) Medical History Palpitation Medical History Hyponatremia Medical History Concussion without l oss of consciousness, subsequent encounter Medical History Fracture of nasal lenny lydia, subsequent encounter for fracture with delayed healing Medical History Deviated nasal septum Medical History Intertriginous dermatitis associ ated with moisture Medical History Bacterial folliculitis Medical History Cellulitis of left leg Medical History Psoriatic arthritis Medical History NAWAF Surgical History tubal ligation Surgical History back surgery Surgical History colonoscopy Surgical History wisdom teeth Hospitalization History see above [employer] Other Hospital course Narrative No data available for this section [facility] No data available for this section [facility] Discharge instructions* Attachments The following attachments cannot be sent through Care Everywhere. * Fall Prevention ([place]) documented in this encounterB[facility] No data available for this section [facility] (narrative) Referred by: CARON CARVAJAL PA-C [facility] Reason for referral (narrative)No reason for referral information availableSelect [facility] [place] Work Phone: Summary Purpose Family History No Family History Records Found Relationship Condition Age at Onset Recorded Date/T sunny father Unknown Not Specified Unknown sister Unknown Relationship Condition Age at Onset Recorded Date/T sunny father Unknown mother Unknown sister Unknown Advance Directives No Advanced Directives Records Found Advance Directive Response Recorded Date/ Time Advance Directives No March 26, 2020 5:32pm Advance Directive Response Recorded Date/ Time Advance Directives No March 26, 2020 4:32pm Documents on File Type Date Recorded Patient Logistics Director Expl anation Advance Directive(s) 01/28/2023 4:44 PM HP OA Advance Directive(s) 01/28/2023 4:45 PM Rimma Escalona Documents on File Type Date Recorded Patient Logistics Director Expl anation Advance Directive(s) 01/28/2023 4:45 PM Rimma salas Will Advance Directive(s) 01/28/2023 4:44 PM HP OA Advance Directive Response Recorded Date/ Time Advance Directives No March 04 2:23pm Chief Complaint and Reason for Visit Chief Complaint M15.0 Z79.899 Chief Complaint M15.0 Z79.899 Cognitive Disability Chief Complaint M15.0 Z79.89 Chief Complaint L40.51 M15.0 Z79.899 Chief Complaint Admit Date oa February 28, 2025 8:02 am Chief Complaint Admit Date oa February 28, 2025 8:02 am wellness March 15, 2025 2:3 0pm Reason for Visit Admit Date Alzheimer dementia March 15, 2025 2:3 0pm 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) March 15, 2025 2:30pm Chronic venous insufficiency of lower ex tremity March 15, 2025 2:30pm Compulsive skin picking March 15, 2025 2:30pm Major depression March 15, 2025 2:3 0pm Medicare annual wellness visit, subseque nt March 15, 2025 2:30pm NAWAF (obstructive sleep apnea) March 2:30pm Psoriatic arthritis March 15, 2025 2:3 0pm Pulmonary hypertension March 15, 2025 2:30pm Additional Source Comments INFORMATION SOURCE (unrecogn ized section and content) DATE CREATED AUTHOR 09/08/2020 [facility] DATE CREATED AUTHOR AUTHOR'S ORGANIZ ATION 07/17/2021 [facility] dical Specialist DATE CREATED AUTHOR AUTHOR'S ORGANIZ ATION 09/08/2023 [facility] DATE CREATED AUTHOR AUTHOR'S ORGANIZ ATION 01/15/2024 [facility] edical Center DATE CREATED AUTHOR AUTHOR'S ORGANIZ ATION [facility] DATE CREATED AUTHOR AUTHOR'S ORGANIZ ATION 03/15/2024 [facility] DATE CREATED AUTHOR AUTHOR'S ORGANIZ ATION 05/06/2024 [facility] DATE CREATED AUTHOR AUTHOR'S ORGANIZ ATION 05/17/2024 [facility] Center DATE CREATED AUTHOR AUTHOR'S ORGANIZ ATION 06/01/2024 [facility] DATE CREATED AUTHOR AUTHOR'S ORGANIZ ATION 06/19/2024 [facility] DATE CREATED AUTHOR AUTHOR'S ORGANIZ ATION 06/21/2024 [facility] DATE CREATED AUTHOR AUTHOR'S ORGANIZ ATION 07/02/2024 [facility] DATE CREATED AUTHOR AUTHOR'S ORGANIZ ATION 07/07/2024 [facility] DATE CREATED AUTHOR AUTHOR'S ORGANIZ ATION 07/11/2024 [facility] DATE CREATED AUTHOR AUTHOR'S ORGANIZ ATION 10/10/2024 [facility] DATE CREATED AUTHOR AUTHOR'S ORGANIZ ATION 03/20/2025 [facility] y[facility] Care Teams (unrecognized sec tion and content) Team Status: Inactive Member Role Status Dates Luciano Taylor MD Attending Provider Active NON STAFF Primary Care Provider Active Team Status: Active Member Role Status Dates NON STAFF Primary Care Provider Active Team Status: Inactive Member Role Status Dates NON STAFF Primary Care Provider Active Saran Verduzco , PhD Attending Provider Active [employer] Specialist Relationship Specialty Start Date End Date [facility] [address] [place] [address] PCP - General 08/31/13 Team Status: Inactive Member Role Status Dates NON STAFF Primary Care Provider Active Luciano Taylor MD Attending Provider Active [employer] Specialist Relationship Specialty Start Date End Date [facility] [address] [place] [address] PCP - General 08/31/13 Team Status: Inactive Member Role Status Dates NON STAFF Primary Care Provider Active RICCARDO Murrell Attending Provider Active [employer] Specialist Relationship Specialty Start Date End Date [facility] [address] [place] [address] PCP - General 08/31/13 Team Status: Active Member Role Status Dates Edmond Pacheco DO Primary Care Provider Active Team Status: Inactive Member Role Status Dates Edmond Pacheco DO Primary Care Provider Active RICCARDO Murrell Attending Provider Active [employer] Specialist Relationship Specialty Start Date End Date Rojas Brown [address] [place] [phone] PCP - General 08/31/13 [employer] Specialist Relationship Specialty Start Date End Date Rojas Brown [address] [place] [phone] PCP - General 08/31/13 [employer] Specialist Relationship Specialty Start Date End Date Thai Patel MD [address] [place] [address] PCP - General Internal Medicine 09/15/23 [employer] Specialist Relationship Specialty Start Date End Date Thai Patel MD [address] [place] [phone] PCP - General Internal Medicine 09/15/23 Team Status: Inactive Member Role Status Dates Edmond Pacheco DO Primary Care Provider Active Start: November 23, 2023 End: November 23, 2023 RICCARDO Murrell Attending Provider Active Start: November 23, 2023 End: November 23, 2023 [employer] Specialist Relationship Specialty Start Date End Date Rojas Brown [address] [place] [phone] PCP - General 08/31/13 Team Status: Inactive Member Role Status Dates Edmond Pacheco DO Primary Care Provider Active Start: February 28, 2025 End: February 28, 2025 Sunny Taylor MD Attending Provider Active St art: February 28, 2025 End: February 28, 2025 Team Status: Inactive Member Role Status Dates Edmond Pacheco DO Primary Care Provider Active Start: March 15, 2025 End: March 15, 2025 Edmond Pacheco DO Attending Provider Active Sta rt: March 15, 2025 End: March 15, 2025 Goals (unrecognized section and content) Goals may be documented in a n alternate section Source Comments (unrecognize d section and content) In the event this informatio n is protected by the Federal Confidentiality of Alcohol and Drug Abuse Patient Records regulations: The Federal rules restrict any use of the information to criminally investigate or prosecute any alcohol or drug abuse patient.[facility] the event this information is protected by the Federal Confidentiality of Alcohol and Drug Abuse Patient Records regulations: The Federal rules restrict any use of the information to criminally investigate or prosecute any alcohol or drug abuse patient.[facility] the event this information is protected by the Federal Confidentiality of Alcohol and Drug Abuse Patient Records regulations: The Federal rules restrict any use of the information to criminally investigate or prosecute any alcohol or drug abuse patient.[facility] the event this information is protected by the Federal Confidentiality of Alcohol and Drug Abuse Patient Records regulations: The Federal rules restrict any use of the information to criminally investigate or prosecute any alcohol or drug abuse patient.[facility] the event this information is protected by the Federal Confidentiality of Alcohol and Drug Abuse Patient Records regulations: The Federal rules restrict any use of the information to criminally investigate or prosecute any alcohol or drug abuse patient.[facility] the event this information is protected by the Federal Confidentiality of Alcohol and Drug Abuse Patient Records regulations: The Federal rules restrict any use of the information to criminally investigate or prosecute any alcohol or drug abuse patient.[facility] the event this information is protected by the Federal Confidentiality of Alcohol and Drug Abuse Patient Records regulations: The Federal rules restrict any use of the information to criminally investigate or prosecute any alcohol or drug abuse patient.[facility] Reason for Visit (unrecogniz ed section and content) Reason Comments Refill Request Reason Onset Date Comments Refill Request 08/06/2022 Reason Comments New Patient Evaluation Reason Comments Outside Machinist - Other Reason Comments Results Pt daughter is reque sting a copy of report Outside Machinist - Other Reason Comments Appointment Returned call and ga ve Fax Number to Dr. Tobi Pacheco Outside Machinist - Other Reason Comments Fall Per SNF, patient fel l from standing. Unwitnessed. Patient denies LOC, denies head injury. No complaints at this time. Reason Comments Fall unwitnessed Reason Onset Date Comments Refill Request 03/09/2024 FOR RECORDS PERTAINING TO PATIENTS WHO ARE OR HAVE BEEN ENROLLED IN A CHEMICAL DEPENDENCY/SUBSTANCEABUSE PROGRAM, SOME INFORMATION MAY BE OMITTED. This clinical summary was aggregated from multiple sources. Caution should be exercised in using it in the provision of clinical care. This summary normalizes information from multiple sources, and as a consequence, information in this document may materially change the coding, format and clinical context of patient data. In addition, data may be omitted in some cases. CLINICAL DECISIONS SHOULD BE BASED ON THE PRIMARY CLINICAL RECORDS. [facility] [employer] [facility]. provides no warranty or guarantee of the accuracy or completeness of information in this document.
[2025-03-24 16:47] LABS: Hematocrit 41.7 % (36.0-48.0); Hemoglobin 14.0 g/dL (12.0-16.0); Immature Granulocytes Abs Auto 0.04 10^3/uL (0.00-0.03); Immature Granulocytes Pct Auto 0.3 % (0.0-0.5); Lymphocytes Absolute Auto 1.6 10^3/uL (1.2-3.8); Mean Corpuscular HGB Conc 33.6 g/dL (29.9-35.2); Mean Corpuscular Hemoglobin 32.8 pg (26.7-34.0); Mean Corpuscular Volume 97.7 fL (81.0-99.0); Platelet Count 169 10^3/uL (150-450); Red Blood Count 4.27 10^6/uL (4.20-5.40); White Blood Count 12.4 10^3/uL (4.0-11.0)
[2025-03-24 17:03] LABS: TSH W/ REFLEX FT4 0.921 uIU/mL (0.358-3.740)
[2025-03-24 17:04] LABS: Alanine Aminotransferase 16 U/L (14-59); Albumin Globulin Ratio 0.7; Albumin Level 3.2 g/dL (3.4-5.0); Alkaline Phosphatase 105 U/L (46-116); Anion Gap 9.3; Aspartate Amino Transferase 18 U/L (15-37); Blood Urea Nitrogen 11.0 mg/dL (7.0-18.0); Calcium 8.3 mg/dL (8.5-10.1); Carbon Dioxide 28.1 mmol/L (21.0-32.0); Chloride 105 mmol/L (98-107); Estimated GFR (African America >60 (>=60 mL/min/1.73m^2); Estimated GFR (Non-African Ame >60 (>=60 mL/min/1.73m^2); Globulin 4.7 g/dL; Glucose 168 mg/dL (74-106); NT Pro B Type Natriuretic Pept 1291.0 pg/mL (<=1800.0); Potassium 3.4 mmol/L (3.5-5.1); Sodium 139 mmol/L (136-145); Total Protein 7.9 g/dL (6.4-8.2)
[2025-03-24 17:08] LABS: Lactate/Lactic Acid 2.5 mmol/L (0.4-2.0)
[2025-03-24 17:18] LABS: Glucose Urine UA NEGATIVE (NEGATIVE)
[2025-03-24 17:35] LABS: Cast Seen? NONE SEEN #/LPF (NONE SEEN); Crystals Seen? None Seen #/HPF (None Seen); Urine Culture Indicated YES-FRMC
[2025-03-24] MEDS: PIPERACILLIN SODIUM/TAZOBACTAM 3.375 GM in 0.9 % SODIUM CHLORIDE 50 ML IV (18:06)
--- NOTE | 2025-03-24 18:15 | ECG_ITS ---
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 Measurements Intervals [place] Rate: 64 P: 55 VA: 164 QRS: 41 QRSD: 82 T: 73 QT: 436 QTc: 446 Interpretive Statements 1100 Sinus rhythm 8102 Low QRS voltage in chest leads 9120 atypical ECG Compared to ECG 03/24/2025 16:03:51 Ventricular premature complex(es) no longer present Electronically Signed On 03-25-2025 17:46:21 EDT by ARIA FISH M.D.
--- OUTSIDE RECORDS SUMMARY | 2025-03-24 18:45 | XMS_ITS | CCD ---
Author Organization [facility] Care Team Providers Care Elementary Supervisor Name Role Phone EDMOND PACHECO Primary Care Unavailable JUNIOR, EDMOND Admitting Unavailable BALL, EDMOND Attending Unavailable BALL, EDMOND Consulting Unavailable BALL, EDMOND Admitting Unavailable BALL, EDMOND Attending Unavailable JUNIOR, EDMOND Consulting Unavailable JUNIOR, EDMOND Primary Care Unavailable EDMOND PACHECO Primary Care Physician MD Luciano Taylor Attending Provider [phone] NON STAFF Primary Care Provider Unavailangel Verduzco, PhD [facility] Attending Provider Rojas Brown Primary Care Provider NON STAFF Primary Care Provider UnavailMD Luciano Meehan Attending Provider [phone] Rojas Brown B Primary Care Provider RICCARDO Jackson Attending Provider Edmond Pacheco Unavailable DO Edmond Pacheco Primary Care Provider RICCARDO Jackson Attending Provider Tana Lares Unavailable Unavailable MARGE ROJAS B Primary Care Unavailable CHAPARRO YARBROUGH Attending Unavailable QUIANA WATERMAN Attending Unavailable ROJAS BROWN B Primary Care Unavailable Thai Patel MD Primary Care Provider [phone] DO Edmond Pacheco Primary Care Provider RICCARDO Jackson Attending Provider DENNISE SOL Attending Unavailable THAI PATEL Primary Care Unavailable THAI PATEL Primary Care Unavailable ANT KIRK Attending Unavailable THAI PATEL Primary Care Unavailable AYANA KING Attending Unavailable THAI PATEL Primary Care Unavailable AYANA KING Attending Unavailable THAI PATEL Primary Care Unavailable ANT KIRK Attending Unavailable THAI PATEL Primary Care Physician Rojas Brown Primary Care Provider PATELRENAE PAIZHIF Primary Care Unavailable DOUG Thomas Attending Unavailable DOUG Thomas Admitting Unavailable BALL, EDMOND Admitting Unavailable BALL, EDMOND Attending Unavailable Immanuel, [facility] Nan Ibrahim Attending Unavaila anoop ASHRAF, Inderjit Attending Unavailable Chaparro Hanna Attending Unavailable PASCALE, Inderjit Attending Unavailable BALL, EDMOND Attending Unavailable BALL, EDMOND Admitting Unavailable BALL, EDMOND Attending Unavailable BALL, EDMOND Admitting Unavailable BALL, EDMOND Attending Unavailable BALL, EDMOND Admitting Unavailable Medon, Austyn Consulting Unavailable Valente SALEEM Attending Unavailable Reuben DREW Admitting Unavailable MD Austyn Campos Consulting Unavailable Medon, Austyn Consulting Unavailable Medon, Austyn Consulting Unavailable Medon, Austyn Consulting Unavailable Medon, Austyn Consulting Unavailable Medon, Austyn Consulting Unavailable Medon, Austyn Consulting Unavailable Medon, Austyn Consulting Unavailable Alex Bhatti Attending Unavailable Andres, Austyn Consulting Unavailable Reuben DREW Admitting Unavailable MD Austyn Campos Consulting Unavailable Medon, Austyn Consulting Unavailable Medon, Austyn Consulting Unavailable Medon, Austyn Consulting Unavailable Medon, Austyn Consulting Unavailable Medon, Austyn Consulting Unavailable Medon, Austyn Consulting Unavailable Medon, Austyn Consulting Unavailable THAI PATEL Primary Care Unavailable DOUG Thomas Attending Unavailable DOUG Thomas Admitting Unavailable NONE, XXXX Referring Unavailable Inderjit ASHRAF Attending Unavailable Inderjit ASHRAF Admitting Unavailable DOUG Thomas Admitting Unavailable DOUG Thomas Attending Unavailable DOUG Thomas Referring Unavailable THAI PATEL Primary Care Unavailable David Calderon Consulting Unavailable David Calderon Consulting Unavailable David Calderon Consulting Unavailable DOUG Thomas Admitting Unavailable ThomasDOUG Attending Unavailable PATEL, THAI Primary Care Unavailable BALL, EDMOND Admitting Unavailable BALL, EDMOND Attending Unavailable PATEL, THAI Primary Care Unavailable BALL, EDMOND Admitting Unavailable PATEL, THAI Primary Care Unavailable BALL, EDMOND Attending Unavailable LuKarlee kwan Attending Unavailable PATEL, [facility] Primary Care Unavailable BALL, EDMOND Admitting Unavailable PATEL, THAI Primary Care Unavailable BALL, EDMOND Attending Unavailable PATEL, THAI Primary Care Unavailable PATEL, THAI Primary Care Unavailable BALL, EDMOND Attending Unavailable BALL, EDMOND Admitting Unavailable BALL, EDMOND Admitting Unavailable BALL, EDMOND Attending Unavailable PATEL, THAI Primary Care Unavailable BALL, EDMOND Admitting Unavailable BALL, EDMOND Attending Unavailable PATEL, THAI Primary Care Unavailable BALL, EDMOND Admitting Unavailable BALL, EDMOND Attending Unavailable PATEL, [facility] Primary Care Unavailable LueKarlee Attending Unavailable PATEL, [facility] Primary Care Unavailable DOUG CARVAJAL Admitting Unavailab le JANETTE, DOUG Kwan Attending Unavailab le JANETTEDOUG Referring Unavailab le PATEL, [facility] Primary Care Unavailable PATEL, THAI Primary Care Unavailable BALL, EDMOND Admitting Unavailable BALL, EDMOND Attending Unavailable JANETTEDOUG RAYGOZA Admitting Unavailab le JANETTE, DOUG Kwan Attending Unavailab le PATEL, [facility] Primary Care Unavailable JANETTEDOUG Attending Unavailab le PATEL, [facility] Primary Care Unavailable JANETTEDOUG Attending Unavailab le PATEL, [facility] Primary Care Unavailable Edmond Pacheco DO Primary Care Provider Sunny Taylor MD Attending Provider Edmond Pacheco DO Attending Provider Sunny Taylor Attending Unavailable Sunny Taylor Admmartine Unavailable Ball, Edmond Primary Care Unavailable Edmond Pacheco DO Primary Care Provider Allergies Allergy Classification Reported Allergen(s) Allergy Type Date of Onset Reaction(s) Facility (12 sources) Cortisone; Translations: [CORTISONE] Drug Allergy 05-15-20 13 spinal fluid suppresion and headaches [facility] Repository (20 sources) Cortisone; Translations: [cortisone] Drug Allergy 05-20-20 Other: See Comments, Other (See Comments) [facility] (20 sources) methylPREDNISolon e; Translations: [methylprednisolo ne] Drug Allergy 08-30-19 Other: See Comments, Other (See Comments) [facility] Work Phone: (20 sources) cortizone injections Propensity to adverse reactions spinal fluid suppresion and headaches [facility] Other (2 sources) patient allergy list reviewed by nurse or physicia Propensity to adverse reactions 08-22-19 Comment:Done [facility] Other (20 sources) Substance with penicillin structure and antibacterial mechanism of action (substance) Drug allergy Comment:Nellie [employer] [facility] [employer] Other (1 source) Penicillins Allergy to substance 06-21-20 Comment:[facility] (9 sources) No Known Medication Allergies; Translations: [No Known Medication Allergies] Propensity to adverse reactions (disorder) [facility] Repository (7 sources) Penicillin; Translations: [penicillin] Drug Allergy Unknown (qualifier value) [facility] (1 source) Honey bee venom Allergy to substance 01-17-20 [facility] (1 source) Penicillin V Drug Allergy 01-17-20 [facility] Medications Current Medications Medication Drug Class(es) Dates [...] Refills(s) 0 Start Date: 07/13/23 Status: Ordered BABY ASPIRIN PO Baby Aspirin Active take 1 tablet by colton th every [...] Start: 03-14-2023 take 1 capsule by mo [facility] at bedtime cetirizine 10 mg oral capsule 10 mg = 1 cap(s), Oral, Bedtime, # 40 cap(s), Refills(s) 0, Pharmacy: [facility]/pharmacy #[id number], 152, cm, 03/10/23 11:33:00 EDT, Height/Length Dosing, 78, kg, 03/10/23 11:33:00 EDT, Weight Dosing Start Date: 03/14/23 Status: Ordered take 1 tablet by colton every twenty-four hours Cetirizine HCl 10 MG [...] mg by mouth d aily at bedtime. [id number] 0.3 ml EPINEPHrine 1 mg/ml auto-injector (7 [...] 26, 2024 4:33pm July 11, 2024 10:39pm escitalopram (Le xapro) 10 MG tablet Lexapro Active Comment on above: Take 20 mg by [...] Necrosis Factor Walt Start: 03-10-[address] Taylor, Refills(s) 0 Start Date: 03/10/23 Status: Ordered Start: 03-10-2023 Remicade Refil ls(s) 0 Start Date: 03/10/23 Status: Ordered inFLIXimab (Nilson jamilah) 100 MG injection Remicade Active infliximab (NILSON JAMILAH INTRAVENOUS) Inject intravenously. Every 8 weeks 0 Active Comment on above: Inject intravenously . Every 8 weeks lactobacillus acidophilus [id number] unt oral capsule (1 source) Start: 03-15-20 Lactobacillus Acidophilus 25 million cell capsule Active 2 CELL PO March 15, 2025 12:00am Complies with drug therapy latanoprost 0.05 mg/ml ophthalmic solution (20 sources) Prostaglandin Analog Start: 03-22-20 End: 03-26-20 take 1 drop(s) into the eye(s) once daily Latanoprost 0.005 % drops Active 1 DROPS EYE-BOTH Daily 2.5 March 26, 2024 4:43pm Complies with drug therapy Start: 03-12-2024 take 1 drop(s) into the eye(s) once daily latanoprost (XALATAN) 0.005 % ophthalmic solution Use 1 Drop in both eyes once daily. 2.5 mL 11 03/12/2024 Active Start: 08-16-2022 End: 03-09-2024 take 1 drop(s) into the eye(s) once daily latanoprost (XALATAN) 0.005 % ophthalmic solution Use 1 Drop in both eyes once daily. 2.5 mL 11 08/16/2022 03/09/2024 Discontinued Start: 08-16-2022 take 1 [...] (see comment) Start Date: 09/02/14 Status: Ordered latanoprost (Xal atan) 0.005 % ophthalmic solution 1 (one) time each day at the same time. Active Comment on above: INSTILL 1 DROP INTO [...] 2:53pm Start: 03-14-2023 [facility] Melatonin 1 mg oral tablet 1 mg, Oral, Once a day (at bedtime), # 30 tab(s), Refills(s) 0, Pharmacy: [facility]/pharmacy #[id number], 152, cm, 03/10/23 11:33:00 EDT, Height/Length Dosing, 78, kg, 03/10/23 11:33:00 EDT, Weight Dosing Start Date: 03/14/23 Status: Ordered take 1 capsule by [facility] every twenty-four hours Melatonin 1 MG 1 [...] day(s), # 60 tab(s), Refills(s) 11, Pharmacy: [facility] [id number], 153, cm, 07/12/24 8:20:00 EST, Height/Length [...] 0, Prophylaxis Start Date: 03/30/14 Status: Ordered Multiple Vitamins-Minerals (CENTRUM SILVER ULTRA WOMENS PO) (1 source) Multiple Vitamins-Minerals (CENTRUM SILVER ULTRA WOMENS PO) Centrum Silver Ultra Womens Active Multivitamins-Mineral s-Lutein (CENTRUM SILVER) tab (7 sources) Start: 08-31-19 14 take 1 tablet by mouth once daily Multivitamins-Mineral s-Lutein (CENTRUM SILVER) tab Take 1 tablet by mouth once daily. 0 08/31/2013 Active Comment on above: Take 1 tablet by colton once daily. nitrofurantoin, macrocrystals 50 mg oral [...] on above: TAKE 1 CAPSULE BY MO [facility] ONCE DAILY Oral for 30 Days pilocarpine hydrochloride 5 mg oral tablet (14 sources) Cholinergic Receptor Agonist Start: 0 take 1 tablet by mouth three times daily pilocarpine 5 mg Tab 5 mg = 1 tab(s), Oral, TID, dry mouth, Other (see comment) Start Date: 03/29/20 Status: Ordered Start: 03-29-2020 take 1 tablet by colton once daily pilocarpine 5 mg Tab 5 mg = 1 tab(s), Oral, Daily, dry mouth, Other (see comment) Start Date: 03/29/20 Status: Ordered Pilocarpine HCl 1.25 % solution Pilocarpine HCl Active potassium chloride 10 meq extended release oral [...] Start: 03-02-2024 take 1 tablet by colton once daily at mealtime potassium chloride 10 mEq ER Tab 10 mEq = 1 tab(s), Oral, Daily, with food, # 60 tab(s), Refills(s) 1 Start Date: 03/02/24 Status: Ordered sennosides, halfway 8.6 mg oral capsule (1 source) Start: [...] 15, 2025 2:51pm take 2 tablets by mo [facility] every four hours as needed for pain [...] by mouth once daily. 0 08/31/2013 Active biotin 10 MG tab let every 12 (twelve) hours. Active Biotin Not-Takin g/PRN Comment on above: [...] BID, # 90 tab(s), Refills(s) 0, Pharmacy: [facility]/pharmacy #[id number], 152.4, cm, 05/09/22 21:11:00 EDT, Height/Length Dosing, 83, kg, 05/09/22 21:11:00 EDT, Weight Dosing Start Date: 05/12/22 Status: Ordered Start: 05-12-2022 take 5 mg by mouth t hree times daily busPIRone 10 mg Tab 5 mg = 0.5 tab(s), Oral, TID, # 90 tab(s), Refills(s) 0, Pharmacy: [facility]/pharmacy #[id number], 152.4, cm, 05/09/22 21:11:00 EDT, Height/Length Dosing, 83, kg, 05/09/22 21:11:00 EDT, Weight Dosing Start Date: 05/12/22 Status: Ordered BuSpar Active cefdinir 300 mg oral capsule (4 sources) Cephalosporin Antibacterial Start: 05-06-2024 End: 07-16-2024 take 1 capsule by mouth twice daily Cefdinir 300 mg capsule Discontinued 300 MG PO Twice daily 20 May 17, 2024 3:23pm July 16, 2024 4:05pm [...] capsule Discontinued 200 MG PO Twice daily 56 March 26, 2024 4:32pm September 26, 2024 7:17pm Start: 03-10-2023 take 1 capsule by mo [facility] twice daily CeleBREX 200 mg Cap 200 mg = 1 cap(s), Oral, BID, Refills(s) 0 Start Date: 03/10/23 Status: Ordered Start: 08-31-2013 take 1 capsule by mo uth once daily celecoxib (CELEBREX) 200 mg capsule Take 200 mg by mouth once daily. 0 12/23/2022 Active Comment on above: Take 1 capsule by mo uth once daily. Take 200 mg by mouth once daily. Centrum Silver Ultra Mens (20 sources) Centrum Silver U ltra Mens Not-Taking/PRN Centrum Silver U ltra Mens Active cholecalciferol 0.025 mg oral capsule (7 sources) Vitamin D Start: 08-31-2013 take 1 capsule by mouth once daily Cholecalciferol, Vitamin D3, (VITAMIN D) 1,000 unit cap Take 1 capsule by mouth once daily. 0 08/31/2013 Active cholecalciferol (Vitamin D-3) 25 MCG (1000 UT) capsule Vitamin D-3 Active Comment on above: Take 1 capsule by mo uth once daily. ciprofloxacin 250 mg oral tablet (13 sources) Quinolone Antimicrobial Start: 05-13-20 take 1 tablet by mouth every twelve hours Ciprofloxacin HCl 250 MG 1 tablet Orally every 12 hrs for 5 days May, Not-Taking/PRN citalopram 40 mg oral tablet (2 sources) Serotonin Reuptake Inhibitor Start: 12-03-19 End: 03-06-20 take 1 tablet by mouth once daily Citalopram 40 mg tablet Discontinued 40 MG PO Daily December 02, 2024 12:00am March 06, 2025 10:16pm [place] silk preparation (4 sources) Start: 07-16-20 End: 03-15-20 [place] Discontinued PO July 16, 2024 1:00am [...] 12:00am July 16, 2024 3:53pm estrogens, conjugated (halfway) 0.625 mg/ml vaginal cream (20 sources) Estrogen [...] Start Date: 02/04/21 Status: Ordered Folic Acid 0.8 M G capsule 1 (one) time each day at the same time. Active Folic Acid Not-T aking/PRN Comment on above: [...] capsule Discontinued 100 MG PO Twice daily April 20, 2024 12:00am July 16, 2024 [...] mouth . meloxicam 15 mg oral tablet (2 sources) Nonsteroidal Anti-inflammatory Drug Start: 2 End: 3 take 1 tablet by mouth once daily meloxicam (MOBIC) 15 mg tablet Take 15 mg by mouth once daily. 0 08/03/2022 01/19/2023 Discontinued (Discontinued by another Health Care Provider) Meloxicam 15 MG tablet dispersible Meloxicam Active Comment on above: Take 15 mg by mouth once daily. methotrexate 2.5 mg oral tablet (20 sources) Folate Analog Metabolic Inhibitor Start: 4 take 6 tablets by mouth every week methotrexate 2.5 mg tablet Take 6 tablets by mouth once each week. as directed. 0 08/31/2013 Active methotrexate 2.5 MG tablet Oral Active Methotrexate Not -Taking/PRN Comment on above: Take 6 tablets by mo uth once each week. as directed. 24 hr metoprolol succinate 25 mg extended release oral tablet (20 sources) beta-Adrenergic Walt Start: 03-22-2024 End: 02-13-2025 take 1 tablet by mouth once daily Metoprolol Succinate 25 mg tablet extended release 24 hr Discontinued 25 MG PO Daily March 26, 2024 4:35pm February 13, 2025 8:18pm Start: 05-28-2022 take 1 tablet by colton th once [...] Refills(s) 0 Start Date: 12/13/21 Status: Ordered METOPROLOL SUCCI BRIJESH ER PO Metoprolol Succinate Active take 1 tablet by colton th once daily metoprolol succinate (TOPROL XL) 50 MG extended release tablet Indications: Hypertension Take 1 tablet by mouth daily Indications: High Blood Pressure Disorder 0 Active Comment on above: Take 25 mg by mouth once daily. nitrofurantoin, macrocrystals 25 mg / nitrofurantoin, monohydrate 75 mg oral capsule (2 sources) Nitrofuran Antibacterial Start: End: 12-09-2 024 take 1 capsule by mouth twice daily at mealtime Nitrofurantoin Monohyd/M-Cryst (Macrobid) 100 mg capsule Discontinued 100 MG PO Twice daily 05 12April 17, 2024 12:00am July 16, 2024 4:06pm must administer with a meal/food QUEtiapine 25 mg oral tablet (20 sources) Atypical Antipsychotic Start: 024 End: 025 take 1 tablet by mouth twice daily [...] Bedtime, # 30 tab(s), Refills(s) 0, Pharmacy: [facility]/pharmacy #[id number], 152.4, cm, 05/09/22 21:11:00 EDT, Height/Length [...] Twice daily 05 12April 17, 2024 12:00am April 17, 2024 5:47pm Start: 06-21-2023 take 1 [...] current use of drug therapy; Translations: [Other intermediate manager (current) drug therapy] Onset: 03-16-2023 Episodic Other [...] (8 sources) Epithelial basement membrane dystrophy; 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 Comment on above: Performed By: #### C MP, CBC #### [address] Albumin [Mass/volume] in Ser um or Plasma by Bromocresol green (BCG) dye binding methoOrdered By: Sunnyvikram Taylor on 02-28-2025 Albumin BCG dye [Mass/Vol] 3.5 g/dL 3.5-5.7 [facility] Alkaline phosphatase [Enzyma tic activity/volume] in Serum or PlasmaOrdered By: Sunnyvikram Taylor on 02-28-2025 ALP [Catalytic activity/Vol] 85 U/L Normal 34-104 [facility] Comment on above: Result Comment: PERF ORMED BY: [place] [address] PATHOLOGIST GRAVEDIGGER FARA WOOD M.D. Performed By: #### C MP, CBC #### [address] Aspartate aminotransferase [ Enzymatic activity/volume] in Serum or PlasmaOrdered By: Sunny Taylor on 02-28-2025 AST [Catalytic activity/Vol] 15 U/L Normal 13-39 [facility] Comment on above: Performed By: #### C MP, CBC #### [place] [address] [place] Basophils [#/volume] in Bloo d by Automated countOrdered By: Sunny Taylor on 02-28-2025 Basophils (Bld) [#/Vol] 0.1 10*3/uL Normal 0.0-0.2 [facility] Comment on above: Result Comment: PERF ORMED BY: [place] [address] PATHOLOGIST GRAVEDIGGER FARA WOOD M.D. Performed By: #### C MP, CBC #### [place] [address] [place] Basophils/100 leukocytes in Blood by Automated countOrdered By: Sunny Taylor on 02-28-2025 Basophils/100 WBC (Bld) 0.9 % Normal . [facility] Comment on above: Performed By: #### C MP, CBC #### [place] [address] [place] Bilirubin.total [Mass/volume ] in Serum or PlasmaOrdered By: Sunny Taylor on 02-28-2025 Bilirubin [Mass/Vol] 0.6 mg/dL Normal 0.3-1.0 [facility] Comment on above: Performed By: #### C MP, CBC #### [address] Calcium [Mass/volume] in Ser um or PlasmaOrdered By: Sunny Taylor on 02-28-2025 Calcium [Mass/Vol] 8.7 mg/dL Normal 8.6-10.3 [facility] Comment on above: Performed By: #### C MP, CBC #### [address] Carbon dioxide, total [Moles /volume] in Serum or PlasmaOrdered By: Sunny Taylor on 02-28-2025 CO2 [Moles/Vol] 34.7 mmol/L High 21.0-31.0 [facility] Comment on above: Performed By: #### C MP, CBC #### [address] Chloride [Moles/volume] in S marianna or PlasmaOrdered By: Sunny Taylor on 02-28-2025 Chloride [Moles/Vol] 101 mmol/L Normal 98-107 [facility] Comment on above: Performed By: #### C MP, CBC #### [address] Complete Blood Count Auto Di ffon 02-28-2025 Mean Corpuscular HGB Conc 33.4 g/dL Normal 32.0-35.0 [facility] Comment on above: Performed By: #### C MP, CBC #### [address] NRBC% 0.1 /100{WBC} Normal 0-0.5 [facility] Comment on above: Performed By: #### C MP, CBC #### [address] White Blood Count 5.8 [CFU]/mL Normal 3.8-11.6 [facility] Comment on above: Performed By: #### C MP, CBC #### [address] Comprehensive Metabolic Pane ridge 02-28-2025 Albumin [Mass/Vol] 3.5 g/dL Normal 3.5-5.7 [facility] Comment on above: Performed By: #### C MP, CBC #### [place] [address] [place] GFR/1.73 sq M.predicted MDRD (S/P/Bld) [Vol rate/Area] mL/min/{1.73_m2} Normal [facility] Comment on above: Performed By: #### C MP, CBC #### [address] Creatinine [Mass/volume] in Serum or PlasmaOrdered By: Sunny Taylor on 02-28-2025 Creatinine [Mass/Vol] 0.73 mg/dL Normal 0.60-1.20 [facility] Comment on above: Performed By: #### C MP, CBC #### [place] [address] [place] Eosinophils [#/volume] in Bl ood by Automated countOrdered By: Sunny Taylor on 02-28-2025 Eosinophils (Bld) [#/Vol] 0.4 10*3/uL Normal 0.0-0.45 [facility] Comment on above: Performed By: #### C MP, CBC #### [place] [address] [place] Eosinophils/100 leukocytes i n Blood by Automated countOrdered By: Sunny Taylor on 02-28-2025 Eosinophils/100 WBC (Bld) 6.6 % Normal . [facility] Comment on above: Performed By: #### C MP, CBC #### [address] Erythrocyte distribution wid th [Ratio] by Automated countOrdered By: Sunny Taylor on 02-28-2025 Erythrocyte distribution width (RBC) [Ratio] 13.4 % Normal 11.9-15.3 [facility] Comment on above: Performed By: #### C MP, CBC #### [facility] [address] [place] [address] [place] Erythrocytes [#/volume] in B lood by Automated countOrdered By: Sunny Taylor on 02-28-2025 RBC (Bld) [#/Vol] 3.98 10*6/uL Normal 3.60-5.00 [facility] Comment on above: Performed By: #### C MP, CBC #### [facility] [address] [place] [address] [place] Glucose [Mass/volume] in Ser um or PlasmaOrdered By: Sunny Taylor on 02-28-2025 Glucose [Mass/Vol] 98 mg/dL Normal 70-100 [facility] Comment on above: ADA recommended refe rence rangeRandom Glucose Reference Range is dependent on time and content of last meal. Glucose of more than 200 mg/dL in a nonstressed, ambulatory subject supports the diagnosis of Diabetes Mellitus. Result Comment: Mereta om Glucose Reference Range is dependent on time and content of last meal. Glucose of more than 200 mg/dL in a nonstressed, ambulatory subject supports the diagnosis of Diabetes Mellitus. ADA recommended reference range Performed By: #### C MP, CBC #### [address] Hematocrit [Volume Fraction] of Blood by Automated countOrdered By: Sunny Taylor on 02-28-2025 Hematocrit (Bld) [Volume fraction] 38.6 % Normal 34.0-46.4 [facility] Comment on above: Performed By: #### C MP, CBC #### [facility] [address] [place] [address] [place] Hemoglobin [Mass/volume] in BloodOrdered By: Sunny Taylor on 02-28-2025 Hemoglobin (Bld) [Mass/Vol] 12.9 g/dL Normal 11.8-15.4 [facility] Comment on above: Performed By: #### C MP, CBC #### [place] [address] [place] Leukocytes [#/volume] correc kala for nucleated erythrocytes in Blood by Automated counOrdered By: Sunny Brandon on 02-28-2025 WBC corrected for nucl RBC Auto (Bld) [#/Vol] 5.8 10*3/uL 3.8-11.6 [facility] Leukocytes [#/volume] in Blo od by Automated countOrdered By: Sunny Clevelandrow on 02-28-2025 WBC (Bld) [#/Vol] 5.8 10*3/uL Normal 3.8-11.6 [facility] Comment on above: Performed By: #### C MP, CBC #### [place] [address] [place] Lymphocytes [#/volume] in Bl ood by Automated countOrdered By: Sunny Taylor on 02-28-2025 Lymphocytes (Bld) [#/Vol] 2.1 10*3/uL Normal 1.00-4.8 [facility] Comment on above: Performed By: #### C MP, CBC #### [address] Lymphocytes/100 leukocytes i n Blood by Automated countOrdered By: Sunny Taylor on 02-28-2025 Lymphocytes/100 WBC (Bld) 36.6 % Normal . [facility] Comment on above: Performed By: #### C MP, CBC #### [address] MCH [Entitic mass] by Automa kala countOrdered By: Sunny Taylor on 02-28-2025 MCH (RBC) [Entitic mass] 32.5 pg Normal 24.7-34.3 [facility] Comment on above: Performed By: #### C MP, CBC #### [address] MCHC Auto (RBC) [Mass/Vol]Or dered By: Sunny Taylor on 02-28-2025 MCHC (RBC) [Mass/Vol] 33.4 g/dL 32.0-35.0 [facility] MCV [Entitic volume] by Auto mated countOrdered By: Sunny Taylor on 02-28-2025 MCV (RBC) [Entitic vol] 97.1 fL Normal 80-100 F [facility] Comment on above: Performed By: #### C MP, CBC #### [address] Monocytes [#/volume] in Bloo d by Automated countOrdered By: Sunny Taylor on 02-28-2025 Monocytes (Bld) [#/Vol] 0.4 10*3/uL Normal 0.0-0.8 [facility] Comment on above: Performed By: #### C MP, CBC #### [address] Monocytes/100 leukocytes in Blood by Automated countOrdered By: Sunny Taylor on 02-28-2025 Monocytes/100 WBC (Bld) 7.3 % Normal . [facility] Comment on above: Performed By: #### C MP, CBC #### [place] [address] [place] Neutrophils [#/volume] in Bl ood by Automated countOrdered By: Sunny Taylor on 02-28-2025 Neutrophils (Bld) [#/Vol] 2.8 10*3/uL Normal 1.8-7.7 [facility] Comment on above: Performed By: #### C MP, CBC #### [address] Neutrophils/100 leukocytes i n Blood by Automated countOrdered By: Sunny Taylor on 02-28-2025 Neutrophils/100 WBC (Bld) 48.6 % Normal . [facility] Comment on above: Performed By: #### C MP, CBC #### [address] No Panel InformationOrdered By: Sunny Taylor on 02-28-2025 Estimated GFR (CKD-EPI) > 60.0 mL/Min [facility] Creatinine Clearance (Chem N/A [facility] Nucleated erythrocytes [Pres ence] in Blood by Automated countOrdered By: Sunny Taylor on 02-28-2025 Nucleated RBC Auto Ql (Bld) 0.1 /100{WBC} 0-0.5 [facility] Platelet mean volume [Entiti c volume] in Blood by Automated countOrdered By: Sunny Taylor on 02-28-2025 Platelet mean volume (Bld) [Entitic vol] 8.3 fL Normal 6.3-10.7 [facility] Comment on above: Performed By: #### C MP, CBC #### [address] Platelets [#/volume] in Bloo d by Automated countOrdered By: Sunny Taylor on 02-28-2025 Platelets (Bld) [#/Vol] 182 10*3/uL Normal 150-450 [facility] Comment on above: Performed By: #### C MP, CBC #### [address] Potassium [Moles/volume] in Serum or PlasmaOrdered By: Sunny Taylor on 02-28-2025 Potassium [Moles/Vol] 4.0 mmol/L Normal 3.5-5.1 [facility] Comment on above: Performed By: #### C MP, CBC #### [address] Protein [Mass/volume] in Ser um or PlasmaOrdered By: Sunny Taylor on 02-28-2025 Protein [Mass/Vol] 7.0 g/dL Normal 6.4-8.9 [facility] Comment on above: Performed By: #### C MP, CBC #### [address] Serum globulin measurement b y calculation (mass/volume)Ordered By: Sunny Taylor on 02-28-2025 Globulin (S) [Mass/Vol] 3.5 g/dL Normal [facility] Comment on above: Performed By: #### C MP, CBC #### [address] Serum or plasma albumin/glob ulin mass ratioOrdered By: Sunny Taylor on 02-28-2025 Albumin/Globulin [Mass ratio] 1.0 {ratio} Normal [facility] Comment on above: Performed By: #### C MP, CBC #### [facility] [address] Serum or plasma anion gap de terminationOrdered By: Sunny Brandon on 02-28-2025 Anion gap [Moles/Vol] 9.3 mmol/L Normal 6.0-15.0 [facility] Comment on above: Performed By: #### C MP, CBC #### [facility] [address] [place] [address] [place] Sodium [Moles/volume] in Ser um or PlasmaOrdered By: Sunny Brandon on 02-28-2025 Sodium [Moles/Vol] 141 mmol/L Normal 136-145 [facility] Comment on above: Performed By: #### C MP, CBC #### [facility] [address] Urea nitrogen [Mass/volume] in Serum or PlasmaOrdered By: Sunny Taylor on 02-28-2025 Urea nitrogen [Mass/Vol] 13 mg/dL Normal 7-25 [facility] Comment on above: Performed By: #### C MP, CBC #### [facility] [address] C Urineon 07-05-2024 Bacteria identified Cx Nom [...] Locations R1: This test was performed at: [facility], [address] [place] [address], [phone]- , [place], [facility] Comment on above: Performed By: #### 2 [id number] #### [facility] [address] [place] [address] Renalon 07-05-2024 US Renal Exam Date/Time: 07/04/2024 [...] MD Transcribed by: SID Technologist: HUMBERTO Schultz [facility] XR Abdomen 1 Viewon 07-05-20 24 XR [...] SID Technologist: DAVIN Technical Comments Radiation Dose: Kar in mGy = na DAP = na Normal [facility] Ambulatory Visit Summaryon 1 09-01-2023 Ambulatory Visit Summary Ambulatory Visit Summary CARIDAD CARIAS I :1940 Visit Date:07/02/2024 Ambulatory Visit Instructions Your Diagnosis Recurrent UTI Your Care Team Attending Physician - CARON CARVAJAL PA-C Primary Care Physician - THAI PATEL This Is Your Medications List [facility] Prescription (#####) amlodipine (Norvasc 2.5 mg Tab) [...] Follow-Up Appointments 2024 8:20 AM EDT With: CARON CARVAJAL PA-C Where: [facility] [address] [place] [address]- Medications What How Much When Instructions Unchanged [...] 1 Tablets By Mouth Every day Unchanged Misc Prescription (#####) 0 30 tab(s), 0 Refill(s) [...] for choosing us for your care. Normal [facility] URINALYSISOrdered By: SYSTEM SYSTEM on 06-29-2024 Bacteria Auto Ql (U) 3+ /HPF Invalid Interpretation Code Trace/HPF [facility] UA Auto SS Clarity (U) Ex.Turbid *ABN* (06/29/24 8:00 AM) Invalid Interpretation Code Clear [facility] UA Auto SS Color (U) Dark-Kiowa 1 *ABN* (06/29/24 8:00 AM) Invalid Interpretation Code Yellow [facility] UA Auto SS Comment on above: Interpretive Data: M icroscopic readings are only performed on those samples that meet specific criteria set forth by [facility]. Epithelial cells.squamous Auto (Urine sed) [#/Area] 3-4 graded/HPF Invalid Interpretation Code [facility] UA Auto [...] PF [facility] UA Auto SS URINALYSISOrdered By: Lalitha shearer on 06-29-2024 UA Spec Desc Clean Catch (06/29/24 8:00 AM) Normal [facility] UA Auto SS Urinalysis with Microon 06-09 Bacteria Auto Ql (U) 3+ /HPF Abnormal Trace [facility] Comment on above: Performed By: #### 4 [id number] #### [facility] [address] [place] [address] Clarity (U) Ex.Turbid Abnormal Clear [facility] Comment on above: Performed By: #### 4 [id number] #### [facility] [address] [place] [address] Color (U) Dark-Kiowa Abnormal Yellow [facility] Comment on above: Result Comment: Micr oscopic readings are only performed on those samples that meet specific criteria set forth by [facility]. Performed By: #### 4 [id number] #### [facility] [address] [place] [address] Epithelial cells.squamous Auto (Urine sed) [#/Area] 3-4 Invalid Interpretation Code [facility] Comment on above: Performed By: #### 4 [id number] #### [facility] [address] [place] [address] Hemoglobin Auto test strip (U) [Mass/Vol] 2+ mg/dL Abnormal Negative [facility] Comment on above: Performed By: #### 4 [id number] #### [facility] [address] [place] [address] Leukocyte clumps Auto (Urine sed) [#/Area] >30 Abnormal [facility] Comment on above: Performed By: #### 4 [id number] #### [facility] [address] [place] [address] Leukocyte esterase Auto test strip Ql (U) 500 [place]/uL Abnormal Negative [facility] Comment on above: Performed By: #### 4 [id number] #### [facility] [address] [place] [address] Nitrite Auto test strip Ql (U) 2+ mg/dL Abnormal Negative [facility] Comment on above: Performed By: #### 4 [id number] #### [facility] [address] [place] [address] pH (U) 6.0 [pH] Invalid Interpretation Code 5.0-9.0 [facility] Comment on above: Performed By: #### 4 [id number] #### [facility] [address] [place] [address] Protein Ql (U) 3+ mg/dL Abnormal Negative [facility] Comment on above: Performed By: #### 4 [id number] #### [facility] [address] [place] [address] Specific gravity (U) [Rel density] 1.020 Invalid Interpretation Code 1.005-1.030 [facility] Comment on above: Performed By: #### 4 [id number] #### [facility] [address] [place] [address] WBC Auto (Urine sed) [#/Area] >75 Abnormal 0-5 [facility] Comment on above: Performed By: #### 4 [id number] #### [facility] [address] [place] [address] Type of Urine collection method Clean Catch Normal [facility] Comment on above: Performed By: #### 4 [id number] #### [facility] [address] [place], [place] [id number] Urinalysis with MicroOrdered By: SYSTEM SYSTEM on 06-29-2024 Bilirubin Ql (U) Negative Normal Negative [facility] UA Auto SS Comment on above: Performed By: #### 4 [id number] #### [facility] [address] [place] [address] Glucose Ql (U) Negative Normal Negative [facility] UA Au to SS Comment on above: Performed By: #### 4 [id number] #### [facility] [address] [place] [address] Ketones Auto test strip Ql (U) Negative Normal Negative [facility] UA Auto SS Comment on above: Performed By: #### 4 [id number] #### [facility] [address] [place] [address] Mucus Auto Ql (U) Negative Normal Negative [facility] UA Auto SS Comment on above: Performed By: #### 4 [id number] #### [facility] [address] [place] [address] Urobilinogen (U) [Mass/Vol] Negative Normal Negative [facility] UA Auto SS Comment on above: Performed By: #### 4 [id number] #### [facility] [address] [place] [address] C Urineon 06-20-2024 Bacteria identified Cx Nom (U) Microbiology PROCEDURE: Urine Culture [R1] SOURCE: U CleanCatch BODY SITE: COLLECTED DATE/TIME: 06/18/2024 00:30 EST RECEIVED DATE/TIME: 06/18/2024 10:44 EST START DATE/TIME: 06/18/2024 10:44 EST FREE TEXT SOURCE: JUNIOR BRYANT, EDMOND PACHECO DO, EDMOND FINAL REPORTS Final Report [] Verified Date/Time: 06/20/2024 08:37 EST 2,000 cfu/ml Mixed skin contaminants Performing Locations R1: This test was performed at: [facility], [address] [place] [address], [phone]- , , Normal [facility] Comment on above: Performed By: #### 2 [id number] #### [facility] [address] [place] [address] UA with Cult Rflxon 06-18-20 24 Bacteria Auto Ql (U) Trace Normal Trace [facility] Comment on above: Performed By: #### 4 [id number] #### [facility] [address] [place] [address] Bilirubin Ql (U) Negative Normal Negative [facility] Comment on above: Performed By: #### 4 [id number] #### [facility] [address] [place] [address] Clarity (U) Clear Normal Clear [facility] Comment on above: Performed By: #### 4 [id number] #### [facility] [address] [place] [address] Color (U) Yellow Normal Yellow [facility] Comment on above: Result Comment: Micr oscopic readings are only performed on those samples that meet specific criteria set forth by [facility]. Performed By: #### 4 [id number] #### [facility] [address] [place] [address] Epithelial cells.squamous Auto (Urine sed) [#/Area] 0-2 Invalid Interpretation Code [facility] Comment on above: Performed By: #### 4 [id number] #### [facility] [address] [place] [address] Glucose Ql (U) Negative Normal Negative [facility] Comment on above: Performed By: #### 4 [id number] #### [facility] [address] [place] [address] Hemoglobin Auto test strip (U) [Mass/Vol] Negative Normal Negative [facility] Comment on above: Performed By: #### 4 [id number] #### [facility] [address] [place] [address] Ketones Auto test strip Ql (U) Negative Normal Negative [facility] Comment on above: Performed By: #### 4 [id number] #### [facility] [address] [place] [address] Leukocyte esterase Auto test strip Ql (U) 25 [place]/uL Normal Negative [facility] Comment on above: Performed By: #### 4 [id number] #### [facility] [address] [place] [address] Mucus Auto Ql (U) Trace Normal Negative [facility] Comment on above: Performed By: #### 4 [id number] #### [facility] [address] [place] [address] Nitrite Auto test strip Ql (U) Negative Normal Negative [facility] Comment on above: Performed By: #### 4 [id number] #### [facility] [address] [place] [address] pH (U) 5.5 [pH] Invalid Interpretation Code 5.0-9.0 [facility] Comment on above: Performed By: #### 4 [id number] #### [facility] [address] [place] [address] Protein Ql (U) Negative Normal Negative [facility] Comment on above: Performed By: #### 4 [id number] #### [facility] [address] [place] [address] RBC Ql (U) 0-3 Normal 0-3 [facility] Comment on above: Performed By: #### 4 [id number] #### [facility] [address] [place] [address] Specific gravity (U) [Rel density] 1.019 Invalid Interpretation Code 1.005-1.030 [facility] Comment on above: Performed By: #### 4 [id number] #### [facility] [address] [place] [address] Urobilinogen (U) [Mass/Vol] Negative Normal Negative [facility] Comment on above: Performed By: #### 4 [id number] #### [facility] [address] [place] [address] WBC Auto (Urine sed) [#/Area] 6-15 Abnormal 0-5 [facility] Comment on above: Performed By: #### 4 [id number] #### [facility] [address] [place] [address] Type of Urine collection method Clean Catch Normal [facility] Comment on above: Performed By: #### 4 [id number] #### [facility] [address] [place] [address] URINALYSISOrdered By: SYSTEM SYSTEM on 06-18-2024 Bacteria Auto Ql (U) Trace /HPF Normal Trace/HPF [facility]A Auto SS Bilirubin Ql (U) Negative Normal Negativemg/ dL [facility] UA Auto SS Clarity (U) Clear (06/18/24 12:30 AM) Normal Clear [facility] UA Auto SS Color (U) Yellow 1 (06/18/24 12:30 AM) Normal Yellow [facility] UA Auto SS Comment on above: Interpretive Data: M icroscopic readings are only performed on those samples that meet specific criteria set forth by [facility]. Epithelial cells.squamous Auto (Urine sed) [#/Area] 0-2 graded/HPF Invalid Interpretation Code [facility] UA Auto SS Glucose Ql (U) Negative Normal Negativemg/ dL [facility] UA Auto SS Hemoglobin Auto test strip (U) [Mass/Vol] Negative Normal Negativemg/ dL [facility] UA Auto SS Ketones Auto test strip Ql (U) Negative Normal Negativemg/ dL [facility] UA Auto SS Leukocyte esterase Auto test [...] Desc Clean Catch (06/18/24 12:30 AM) Normal [facility] UA Auto SS C Urineon 06-01-2024 Bacteria identified Cx Nom (U) Microbiology PROCEDURE: Urine Culture [R1] SOURCE: U CleanCatch BODY SITE: COLLECTED DATE/TIME: 05/30/2024 10:00 EDT RECEIVED DATE/TIME: 05/30/2024 20:27 EDT START DATE/TIME: 05/30/2024 20:27 EDT FREE TEXT SOURCE: EDMOND PACHECO DO, [...] Locations R1: This test was performed at: [facility], [address] [place] [address], [id number]- , [place], Normal [facility] Comment on above: Performed By: #### 2 [id number] #### [facility] [address] [place] [address] UA with Cult Rflxon 05-30-20 24 Bacteria Auto Ql (U) 4+ /HPF Abnormal Trace [facility] Comment on above: Performed By: #### 4 [id number] #### [facility] [address] [place] [address] Clarity (U) Ex.Turbid Abnormal Clear [facility] Comment on above: Performed By: #### 4 [id number] #### [facility] [address] [place] [address] Color (U) Light-Kiowa Abnormal Yellow [facility] Comment on above: Result Comment: Micr oscopic readings are only performed on those samples that meet specific criteria set forth by [facility]. Performed By: #### 4 [id number] #### [facility] [address] [place] [address] Epithelial cells.squamous Auto (Urine sed) [#/Area] 0-2 Invalid Interpretation Code [facility] Comment on above: Performed By: #### 4 [id number] #### [facility] [address] [place] [address] Hemoglobin Auto test strip (U) [Mass/Vol] 1+ mg/dL Abnormal Negative [facility] Comment on above: Performed By: #### 4 [id number] #### [facility] [address] [place] [address] Leukocyte clumps Auto (Urine sed) [#/Area] 21-30 Abnormal [facility] Comment on above: Performed By: #### 4 [id number] #### [facility] [address] [place] [address] Leukocyte esterase Auto test strip Ql (U) 500 [place]/uL Abnormal Negative [facility] Comment on above: Performed By: #### 4 [id number] #### [facility] [address] [place] [address] Nitrite Auto test strip Ql (U) 2+ mg/dL Abnormal Negative [facility] Comment on above: Performed By: #### 4 [id number] #### [facility] [address] [place] [address] pH (U) 7.0 [pH] Invalid Interpretation Code 5.0-9.0 [facility] Comment on above: Performed By: #### 4 [id number] #### [facility] [address] [place] [address] Protein Ql (U) 1+ mg/dL Abnormal Negative [facility] Comment on above: Performed By: #### 4 [id number] #### [facility] [address] [place] [address] RBC Ql (U) 31-75 Abnormal 0-3 [facility] Comment on above: Performed By: #### 4 [id number] #### [facility] [address] [place], [place] [phone] Specific gravity (U) [Rel density] 1.017 Invalid Interpretation Code 1.005-1.030 [facility] Comment on above: Performed By: #### 4 [id number] #### [facility] [address] [place] [address] WBC Auto (Urine sed) [#/Area] >75 Abnormal 0-5 [facility] Comment on above: Performed By: #### 4 [id number] #### [facility] [address] [place] [address] Type of Urine collection method Clean Catch Normal [facility] Comment on above: Performed By: #### 4 [id number] #### [facility] [address] [place], [place] [phone] UA with Cult RflxOrdered By: SYSTEM SYSTEM on 05-30-2024 Bilirubin Ql (U) Negative Normal Negative [facility] UA Auto SS Comment on above: Performed By: #### 4 [id number] #### [facility] [address] [place] [address] Glucose Ql (U) Negative Normal Negative [facility] UA Au to SS Comment on above: Performed By: #### 4 [id number] #### [facility] [address] [place] [address] Ketones Auto test strip Ql (U) Negative Normal Negative [facility] UA Auto SS Comment on above: Performed By: #### 4 [id number] #### [facility] [address] [place] [address] Mucus Auto Ql (U) Negative Normal Negative [facility] UA Auto SS Comment on above: Performed By: #### 4 [id number] #### [facility] [address] [place] [address] Urobilinogen (U) [Mass/Vol] Negative Normal Negative [facility] UA Auto SS Comment on above: Performed By: #### 4 [id number] #### [facility] [address] [place] [address] URINALYSISOrdered By: SYSTEM SYSTEM on 05-30-2024 Bacteria Auto Ql (U) 4+ /HPF Invalid Interpretation Code Trace/HPF [facility] UA Auto SS Clarity (U) Ex.Turbid *ABN* (05/30/24 10:00 AM) Invalid Interpretation Code Clear [facility] UA Auto SS Color (U) Light-Kiowa 1 *ABN* (05/30/24 10:00 AM) Invalid Interpretation Code Yellow [facility] UA Auto SS Comment on above: Interpretive Data: M icroscopic readings are only performed on those samples that meet specific criteria set forth by [facility]. Epithelial cells.squamous Auto (Urine sed) [#/Area] [...] Desc Clean Catch (05/30/24 10:00 AM) Normal [facility] UA Auto SS C Urineon 05-17-2024 Bacteria identified Cx Nom (U) Microbiology PROCEDURE: Urine Culture [R1] SOURCE: U CleanCatch BODY SITE: COLLECTED DATE/TIME: 05/15/2024 08:45 [...] Locations R1: This test was performed at: [facility], [address] [place] [address], [address] , , [facility] Comment on above: Performed By: #### 2 [id number] #### [facility] [address] [place] [address] C Urineon 05-06-2024 Bacteria identified Cx Nom (U) Microbiology PROCEDURE: Urine Culture [R1] SOURCE: U Pedibag BODY SITE: COLLECTED DATE/TIME: 05/04/2024 13:10 EDT RECEIVED DATE/TIME: 05/04/2024 14:38 EDT START DATE/TIME: 05/04/2024 14:38 EDT FREE TEXT SOURCE: EDMOND PACHECO DO, [...] Locations R1: This test was performed at: [facility], [address] [place] [address], [facility]- , , [facility] Comment on above: Performed By: #### 2 [id number] #### [facility] [address] [place] [address] BNPon 03-02-2024 Int Ctr BNP Pass Normal [facility] Comment on above: Performed By: #### 1 [id number] #### [facility] [address] [place] [address] Natriuretic peptide B (Bld) [Mass/Vol] 120 pg/mL High 5-80 [facility] Comment on above: Performed By: #### 1 [id number] #### [facility] [address] [place] [address] CHEMISTRYOrdered By: SYSTEM SYSTEM on 03-02-2024 Albumin [...] 120 pg/mL High 5 - 80 pg/mL [facility] HemeManSS HEMATOLOGYOrdered By: SYSTEM SYSTEM [...] 11.0 E9/L Remisol [facility] Noteon 03-02-2024 Heart and Vascular Office/Clinic [...] time being (more content not included)... Normal [facility] Comment on above: Result Comment: Elec tronically Signed By: Gera Thomas PA-C\.br\Date and Time Signed: 03/02/24 12:46 EDT\.br\Electronically Co-Signed By: Kiara Coronel\.br\Date and Time Co-Signed: 03/02/24 12:15 EDT Basic Metabolic Panelon 02-05 Anion gap [Moles/Vol] 10 mmol/L Normal 9-15 [facility] Comment on above: Performed By: #### U YASMINE #### [facility] [address] [place] [address] Calcium [Mass/Vol] 8.3 mg/dL Low 8.5-9.9 [facility] Comment on above: Performed By: #### U YASMINE #### [facility] [address] [place] [address] Chloride [Moles/Vol] 102 mmol/L Normal 95-107 [facility] Comment on above: Performed By: #### U YASMINE #### [facility] [address] [place] [address] CO2 [Moles/Vol] 28 mmol/L Normal 20-31 [facility] Comment on above: Performed By: #### U YASMINE #### [facility] [address] [place] [address] Creatinine [Mass/Vol] 0.69 mg/dL Normal 0.50-0.90 [facility] Comment on above: Performed By: #### U YASMINE #### [facility] [address] [place] [address] GFR 86.8 Normal >60 [facility] Comment on above: Result Comment: Noreen atric [...] secretion. Performed By: #### U YASMINE #### [facility] [address] [place] [address] Glucose [Mass/Vol] 72 mg/dL Normal 70-99 [facility] Comment on above: Performed By: #### U YASMINE #### [facility] [address] [place] [address] Potassium [Moles/Vol] 3.8 mmol/L Normal 3.4-4.9 [facility] Comment on above: Performed By: #### U YASMINE #### [facility] [address] [place] [address] Sodium [Moles/Vol] 140 mmol/L Normal 135-144 [facility] Comment on above: Performed By: #### U YASMINE #### [facility] [address] [place] [address] Urea nitrogen [Mass/Vol] 16 mg/dL Normal 8-23 [facility] Comment on above: Performed By: #### U YASMINE #### [facility] [address] [place] [address] proBNPon 02-20-2024 Natriuretic peptide B (Bld) [Mass/Vol] 187 pg/mL Normal [facility] Comment on above: Result Comment: NT-p ro [...] 2006;27:330-337 Performed By: #### U YASMINE #### [facility] [address] [place] [address] Basic Metabolic Panelon 02-05 Anion gap [Moles/Vol] 8 mmol/L Low 9-15 [facility] Comment on above: Performed By: #### M G #### [facility] [address] [place] [address] Calcium [Mass/Vol] 8.1 mg/dL Low 8.5-9.9 [facility] Comment on above: Performed By: #### M G #### [facility] [address] [place] [address] Chloride [Moles/Vol] 101 mmol/L Normal 95-107 [facility] Comment on above: Performed By: #### M G #### [facility] [address] [place] [address] CO2 [Moles/Vol] 27 mmol/L Normal 20-31 [facility] Comment on above: Performed By: #### M G #### [facility] [address] [place] [address] Creatinine [Mass/Vol] 0.61 mg/dL Normal 0.50-0.90 [facility] Comment on above: Performed By: #### M G #### [facility] [address] [place] [address] GFR 89.5 Normal >60 [facility] Comment on above: Result Comment: Noreen atric [...] secretion. Performed By: #### M G #### [facility] [address] [address] Glucose [Mass/Vol] 98 mg/dL Normal 70-99 [facility] Comment on above: Performed By: #### M G #### [facility] [address] [place] [address] Potassium [Moles/Vol] 4.3 mmol/L Normal 3.4-4.9 [facility] Comment on above: Performed By: #### M G #### [facility] [address] [place] [address] Sodium [Moles/Vol] 136 mmol/L Normal 135-144 [facility] Comment on above: Performed By: #### M G #### [facility] [address] [place] [address] Urea nitrogen [Mass/Vol] 15 mg/dL Normal 8-23 [facility] Comment on above: Performed By: #### M G #### [facility] [address] [place] [address] Culture, Urineon 02-01-2024 Culture, Urine ORDER#: [id number] ORDERED BY: YNES LANDA SOURCE: Urine Clean Catch COLLECTED: 02/01/24 09:30 ANTIBIOTICS AT MAX.: RECEIVED : 02/01/24 10:25 Culture, Urine FINAL 02/02/24 16:19 Cult,Urine: NO GROWTH Performed at [address] [id number] ([phone] Normal [facility] Comment on above: Performed By: #### U YASMINE #### [facility] [address] [place] [address] Urinalysis, reflex to micros copicon 02-01-2024 Bilirubin Ql (U) Negative Normal Negative [facility] Comment on above: Performed By: #### U YASMINE #### [facility] [address] [place] [address] Clarity (U) Clear Normal Clear [facility] Comment on above: Performed By: #### U YASMINE #### [facility] [address] [place] [address] Color (U) Yellow Normal Straw/Bingham [facility] Comment on above: Performed By: #### U YASMINE #### [facility] [address] [place] [address] Glucose Ql (U) Negative Normal Negative [facility] Comment on above: Performed By: #### U YASMINE #### [facility] [address] [place] [address] Hemoglobin Ql (U) Negative Normal Negative [facility] Comment on above: Performed By: #### U YASMINE #### [facility] [address] [place] [address] Ketones Ql (U) Negative Normal Negative [facility] Comment on above: Performed By: #### U YASMINE #### [facility] [address] [place] [address] Leukocyte esterase Test strip Ql (U) TRACE Abnormal Negative [facility] Comment on above: Performed By: #### U YASMINE #### [facility] [address] [place] [address] Nitrite Ql (U) Negative Normal Negative [facility] Comment on above: Performed By: #### U YASMINE #### [facility] [address] [place] [address] pH (U) 7.0 [pH] Normal 5.0-9.0 [facility] Comment on above: Performed By: #### U YASMINE #### [facility] [address] [place] [address] Protein Ql (U) Negative Normal Negative [facility] Comment on above: Performed By: #### U YASMINE #### [facility] [address] [place] [address] Specific gravity (U) [Rel density] 1.012 Normal 1.005-1.03 [facility] Comment on above: Performed By: #### U YASMINE #### [facility] [address] [place] [address] Urobilinogen Qn (U) 1.0 {Cuba'U}/dL Normal < 2.0 [facility] Comment on above: Performed By: #### U YASMINE #### [facility] [address] [address] Urine Microscopicon 02-01-20 24 Bacteria LM.HPF (Urine sed) [#/Area] Negative Normal Negative [facility] Comment on above: Performed By: #### M G #### [facility] [address] [place] [address] Urine Epithelial Cells Auto 3-5 Normal 0-5 [facility] Comment on above: Performed By: #### M G #### [facility] [address] [place] [address] Urine Hyaline Casts Auto 1-3 Normal 0-5 [facility] Comment on above: Performed By: #### M G #### [facility] [address] [place] [address] Urine RBC Auto 0-2 Normal 0-5 [facility] Comment on above: Performed By: #### M G #### [facility] [address] [place] [address] Urine WBC Auto 10-20 Abnormal 0-5 [facility] Comment on above: Performed By: #### M G #### [facility] [address] [place] [address] Bacterial susceptibility hernandez el by Kedar 01-12-2024 Bacterial susceptibility panel YASMINE (Isol) ORDER#: [id number] ORDERED BY: AYANA KING SOURCE: Urine Clean Catch COLLECTED: 01/12/24 17:08 ANTIBIOTICS AT MAX.: RECEIVED : 01/12/24 17:08 Culture, Urine FINAL 01/14/24 13:21 Performed at [address] [address] ([phone] Klebsiella pneumoniae 10 to 50,000 CFU/ML K. [...] and P. mirabilis S=SUSCEPTIBLE I=INTERMEDIATE R=RESISTANT Normal [facility] Comment on above: Performed By: #### 5 [id number] #### [facility] [address] [place] [address] CBC With Platelet and Differ entialon 01-12-2024 Basophils (Bld) [#/Vol] 0.1 10*3/uL Normal 0.0-0.2 [facility] Comment on above: Performed By: #### L IPAS #### [facility] [address] [place] [address] Basophils/100 WBC (Bld) 1.0 % Normal [facility] Comment on above: Performed By: #### L IPAS #### [facility] [address] [place] [address] Eosinophils (Bld) [#/Vol] 0.6 10*3/uL Normal 0.0-0.7 [facility] Comment on above: Performed By: #### L IPAS #### [facility] [address] [place] [address] Eosinophils/100 WBC (Bld) 10.2 % Normal [facility] Comment on above: Performed By: #### L IPAS #### [facility] [address] [place] [address] Erythrocyte distribution width (RBC) [Ratio] 13.7 % Normal 11.5-14.5 [facility] Comment on above: Performed By: #### L IPAS #### [facility] [address] [place] [address] Hematocrit (Bld) [Volume fraction] 38.8 % Normal 37.0-47.0 [facility] Comment on above: Performed By: #### L IPAS #### [facility] [address] [place] [address] Hemoglobin (Bld) [Mass/Vol] 12.8 g/dL Normal 12.0-16.0 [facility] Comment on above: Performed By: #### L IPAS #### [facility] [address] [place] [address] Lymphocytes (Bld) [#/Vol] 2.3 10*3/uL Normal 1.0-4.8 [facility] Comment on above: Performed By: #### L IPAS #### [facility] [address] [place] [address] Lymphocytes/100 WBC (Bld) 40.1 % Normal [facility] Comment on above: Performed By: #### L IPAS #### [facility] [address] [place] [address] MCH (RBC) [Entitic mass] 32.6 pg Critically high 27.0-31.3 [facility] Comment on above: Performed By: #### L IPAS #### [facility] [address] [place] [address] MCHC 33.0 % Normal 33.0-37.0 [facility] Comment on above: Performed By: #### L IPAS #### [facility] [address] [place] [address] MCV (RBC) [Entitic vol] 98.7 fL Critically high 79.4-94 .8 [facility] Comment on above: Performed By: #### L IPAS #### [facility] [address] [place] [address] Monocytes (Bld) [#/Vol] 0.5 10*3/uL Normal 0.2-0.8 [facility] Comment on above: Performed By: #### L IPAS #### [facility] [address] [place] [address] Monocytes/100 WBC (Bld) 9.3 % Normal [facility] Comment on above: Performed By: #### L IPAS #### [facility] [address] [place] [address] Neutrophils (Bld) [#/Vol] 2.3 10*3/uL Normal 1.4-6.5 [facility] Comment on above: Performed By: #### L IPAS #### [facility] [address] [place] [address] Neutrophils/100 WBC (Bld) 39.2 % Normal [facility] Comment on above: Performed By: #### L IPAS #### [facility] [address] [place] [address] Platelets (Bld) [#/Vol] 142 10*3/uL Normal 130-400 [facility] Comment on above: Performed By: #### L IPAS #### [facility] [address] [place] [address] RBC (Bld) [#/Vol] 3.93 10*6/uL Low 4.20-5.40 [facility] Comment on above: Performed By: #### L IPAS #### [facility] [address] [place] [address] WBC (Bld) [#/Vol] 5.8 10*3/uL Normal 4.8-10.8 [facility] Comment on above: Performed By: #### L IPAS #### [facility] [address] [place] [address] CT CERVICAL SPINE WO CONTRAS Ton 01-12-2024 [...] Arnold Escobedo MD 01/12/24 Final result Normal [facility] CT HEAD WO CONTRASTon 2023 CT HEAD [...] Vince Ace MD 01/12/24 Final result Normal [facility] Comprehensive Metabolic Pane ridge 01-12-2024 Albumin [Mass/Vol] 3.2 g/dL Low 3.5-4.6 [facility] Comment on above: Performed By: #### C JENNIFERRN #### [facility] [address] [place] [address] ALP [Catalytic activity/Vol] 105 U/L Normal 40-130 [facility] Comment on above: Performed By: #### C JENNIFERRN #### [facility] [address] [place] [address] ALT [Catalytic activity/Vol] 19 U/L Normal 0-33 [facility] Comment on above: Performed By: #### C XURN #### [facility] [address] [place] [address] Anion gap [Moles/Vol] 7 mmol/L Low 9-15 [facility] Comment on above: Performed By: #### C XURN #### [facility] [address] [place] [address] AST [Catalytic activity/Vol] 33 U/L Normal 0-35 [facility] Comment on above: Performed By: #### C XURN #### [facility] [address] [place] [address] Bilirubin [Mass/Vol] 0.6 mg/dL Normal 0.2-0.7 [facility] Comment on above: Performed By: #### C XURN #### [facility] [address] [place] [address] Calcium [Mass/Vol] 8.3 mg/dL Low 8.5-9.9 [facility] Comment on above: Performed By: #### C XURN #### [facility] [address] [place] [address] Chloride [Moles/Vol] 102 mmol/L Normal 95-107 [facility] Comment on above: Performed By: #### C GAYLE #### [facility] [address] [place] [address] CO2 [Moles/Vol] 28 mmol/L Normal 20-31 [facility] Comment on above: Performed By: #### C GAYLE #### [facility] [address] [place] [address] Creatinine [Mass/Vol] 0.61 mg/dL Normal 0.50-0.90 [facility] Comment on above: Performed By: #### C GAYLE #### [facility] [address] [place] [address] GFR 89.5 Normal >60 [facility] Comment on above: Result Comment: Noreen atric [...] affects renal tubular secretion. Performed By: #### Sherita ARAUJO #### [facility] [address] [place] [address] Globulin (S) [Mass/Vol] 4.1 g/dL Critically high 2.3-3.5 [facility] Comment on above: Performed By: #### Sherita ARAUJO #### [facility] [address] [place] [address] Glucose [Mass/Vol] 100 mg/dL Critically high 70-99 [facility] Comment on above: Performed By: #### C GAYLE #### [facility] [address] [place] [address] Potassium [Moles/Vol] 4.7 mmol/L Normal 3.4-4.9 [facility] Comment on above: Performed By: #### Sherita ARAUJO #### [facility] [address] [place] [address] Protein [Mass/Vol] 7.3 g/dL Normal 6.3-8.0 [facility] Comment on above: Performed By: #### Sherita ARAUJO #### [facility] [address] [place] [address] Sodium [Moles/Vol] 137 mmol/L Normal 135-144 [facility] Comment on above: Performed By: #### Sherita ARAUJO #### [facility] [address] [place] [address] Urea nitrogen [Mass/Vol] 12 mg/dL Normal 8-23 [facility] Comment on above: Performed By: #### Sherita ARAUJO #### [facility] [address] [place] [address] Culture, Urineon 01-12-2024 Culture, Urine ORDER#: [id number] ORDERED BY: AYANA KING SOURCE: Urine Clean Catch COLLECTED: 01/12/24 17:08 ANTIBIOTICS AT MAX.: RECEIVED : 01/12/24 17:08 Culture, Urine PRELIM 01/13/24 19:35 Cult,Urine: GRAM NEGATIVE RODS Cult,Urine: 10 to 50,000 CFU/ML Performed at [address] [address] ([phone] Normal [facility] Comment on above: Performed By: #### Sherita ARAUJO #### [facility] [address] [place] [address] High Sensitivity Troponin To n 01-12-2024 High Sensitivity Troponin T 11 ng/L Normal 0-19 [facility] Comment on above: Result Comment: High Sensitivity Troponin values cannot be compared with other Troponin methodologies. Performed By: #### T RP5 #### [facility] [address] [place] [address] High Sensitivity Troponin T 8 ng/L Normal 0-19 [facility] Comment on above: Result Comment: High Sensitivity Troponin values cannot be compared with other Troponin methodologies. Performed By: #### T RP5 #### [facility] [address] [place] [address] Lipaseon 01-12-2024 Lipase [Catalytic activity/Vol] 50 U/L Normal 12-95 [facility] Comment on above: Performed By: #### L IPAS #### [facility] [address] [place] [address] Urinalysis, reflex to cultur adri 01-12-2024 Urine Reflexed to Culture Yes Normal [facility] Comment on above: Performed By: #### C XURN #### [facility] [address] [place] [address] Bilirubin Ql (U) Negative Normal Negative [facility] Comment on above: Performed By: #### C XURN #### [facility] [address] [place] [address] Clarity (U) Clear Normal Clear [facility] Comment on above: Performed By: #### C XURN #### [facility] [address] [place] [address] Color (U) Yellow Normal Straw/Bingham [facility] Comment on above: Performed By: #### C XURN #### [facility] [address] [place] [address] Glucose Ql (U) Negative Normal Negative [facility] Comment on above: Performed By: #### C XURN #### [facility] [address] [place] [address] Hemoglobin Ql (U) MODERATE Abnormal Negative [facility] Comment on above: Performed By: #### C XURN #### [facility] [address] [place] [address] Ketones Ql (U) Negative Normal Negative [facility] Comment on above: Performed By: #### C XURN #### [facility] [address] [place] [address] Leukocyte esterase Test strip Ql (U) MODERATE Abnormal Negative [facility] Comment on above: Performed By: #### Sherita ARAUJO #### [facility] [address] [place] [address] Nitrite Ql (U) Negative Normal Negative [facility] Comment on above: Performed By: #### C GAYLE #### [facility] [address] [place] [address] pH (U) 7.0 [pH] Normal 5.0-9.0 [facility] Comment on above: Performed By: #### C GAYLE #### [facility] [address] [place] [address] Protein Ql (U) Negative Normal Negative [facility] Comment on above: Performed By: #### C GAYLE #### [facility] [address] [place] [address] Specific gravity (U) [Rel density] 1.008 Normal 1.005-1.03 [facility] Comment on above: Performed By: #### C GAYLE #### [facility] [address] [place] [address] Urobilinogen Qn (U) 1.0 {Cuba'U}/dL Normal < 2.0 [facility] Comment on above: Performed By: #### Sherita ARAUJO #### [facility] [address] [place] [address] Urine Microscopicon 01-12-20 24 Urine Bacteria RARE Abnormal Negative [facility] Comment on above: Performed By: #### U YASMINE #### [facility] [address] [place] [address] Urine Yeast Present Abnormal None Seen [facility] Comment on above: Performed By: #### U YASMINE #### [facility] [address] [place] [address] Urine Epithelial Cells Auto 0-2 Normal 0-5 [facility] Comment on above: Performed By: #### U YASMINE #### [facility] [address] [place] [address] Urine Hyaline Casts Auto 0-1 Normal 0-5 [facility] Comment on above: Performed By: #### U YASMINE #### [facility] [address] [place] [address] Urine RBC Auto 50-100 Abnormal 0-5 [facility] Comment on above: Performed By: #### U YASMINE #### [facility] [address] [place] [address] Urine WBC Auto 50-100 Abnormal 0-5 [facility] Comment on above: Performed By: #### U YASMINE #### [facility] [address] [place] [address] XR CHEST PORTABLEon 01-12-20 XR CHEST PORTABLE EXAMINATION: ONE XRAY VIEW [...] Fahad Dozier MD 01/12/24 Final result Normal [facility] XR ELBOW RIGHT (MIN 3 VIEWS) on [...] Fahad Dozier MD 01/12/24 Final result Normal [facility] CT CERVICAL SPINE WO CONTRAS Ton 12-21-2023 [...] and degenerative joint disease. Interpreted by: Ernst Hernandez MD Signed by: Ernst Hernandez MD 12/21/23 Final result Normal [facility] CT HEAD WO CONTRASTon 2023 CT HEAD [...] Ernst Hernandez MD 12/21/23 Final result Normal [facility] Bacterial susceptibility hernandez el by MICon 12-16-2023 Bacterial susceptibility panel YASMINE (Isol) ORDER#: [id number] ORDERED BY: YNES LANDA SOURCE: Urine Clean Catch COLLECTED: 12/16/23 12:30 ANTIBIOTICS AT MAX.: RECEIVED : 12/16/23 13:50 Culture, Urine FINAL 12/18/23 12:22 [place] [address] Escherichia coli >100,000 CFU/ML E. coli ANTIBIOTICS [...] and P. mirabilis S=SUSCEPTIBLE I=INTERMEDIATE R=RESISTANT Normal [facility] Comment on above: Performed By: #### U YASMINE #### [facility] [address] [place] [address] Basic Metabolic Panelon 05-1 0-2023 Anion gap [Moles/Vol] 9 mmol/L Normal 9-15 [facility] Comment on above: Performed By: #### B MP #### [facility] [address] [place] [address] Calcium [Mass/Vol] 8.7 mg/dL Normal 8.5-9.9 [facility] Comment on above: Performed By: #### B MP #### [facility] [address] [place] [address] Chloride [Moles/Vol] 99 mmol/L Normal 95-107 [facility] Comment on above: Performed By: #### B MP #### [facility] [address] [place] [address] CO2 [Moles/Vol] 26 mmol/L Normal 20-31 [facility] Comment on above: Performed By: #### B MP #### [facility] [address] [place] [address] Creatinine [Mass/Vol] 0.59 mg/dL Normal 0.50-0.90 [facility] Comment on above: Performed By: #### B MP #### [facility] [address] [place] [address] GFR >90.0 Normal >60 [facility] Comment on above: Result Comment: Noreen atric [...] secretion. Performed By: #### B MP #### [facility] [address] [place] [address] Glucose [Mass/Vol] 125 mg/dL Critically high 70-99 [facility] Comment on above: Performed By: #### B MP #### [facility] [address] [place] [address] Potassium [Moles/Vol] 4.2 mmol/L Normal 3.4-4.9 [facility] Comment on above: Performed By: #### B MP #### [facility] [address] [place] [address] Sodium [Moles/Vol] 134 mmol/L Low 135-144 [facility] Comment on above: Performed By: #### B MP #### [facility] [address] [place] [address] Urea nitrogen [Mass/Vol] 11 mg/dL Normal 8-23 [facility] Comment on above: Performed By: #### B MP #### [facility] [address] [place] [address] Culture, Urineon 12-16-2023 Culture, Urine ORDER#: [id number] ORDERED BY: YNES LANDA SOURCE: Urine Clean Catch COLLECTED: 12/16/23 12:30 ANTIBIOTICS AT MAX.: RECEIVED : 12/16/23 13:50 Culture, Urine PRELIM 12/17/23 19:00 Performed at [address] [address] ([phone] Escherichia coli >100,000 CFU/ML Normal [facility] Comment on above: Performed By: #### U YASMINE #### [facility] [address] [place] [address] Urinalysis, reflex to micros copicon 12-16-2023 Bilirubin Ql (U) Negative Normal Negative [facility] Comment on above: Performed By: #### M G #### [facility] [address] [place] [address] Clarity (U) Clear Normal Clear [facility] Comment on above: Performed By: #### M G #### [facility] [address] [place] [address] Color (U) Yellow Normal Straw/Bingham [facility] Comment on above: Performed By: #### M G #### [facility] [address] [place] [address] Glucose Ql (U) Negative Normal Negative [facility] Comment on above: Performed By: #### M G #### [facility] [address] [place] [address] Hemoglobin Ql (U) Negative Normal Negative [facility] Comment on above: Performed By: #### M G #### [facility] [address] [place] [address] Ketones Ql (U) Negative Normal Negative [facility] Comment on above: Performed By: #### M G #### [facility] [address] [place] [address] Leukocyte esterase Test strip Ql (U) MODERATE Abnormal Negative [facility] Comment on above: Performed By: #### M G #### [facility] [address] [place] [address] Nitrite Ql (U) Negative Normal Negative [facility] Comment on above: Performed By: #### M G #### [facility] [address] [place] [address] pH (U) 7.0 [pH] Normal 5.0-9.0 [facility] Comment on above: Performed By: #### M G #### [facility] [address] [place] [address] Protein Ql (U) Negative Normal Negative [facility] Comment on above: Performed By: #### M G #### [facility] [address] [place] [address] Specific gravity (U) [Rel density] 1.014 Normal 1.005-1.03 [facility] Comment on above: Performed By: #### M G #### [facility] [address] [place] [address] Urobilinogen Qn (U) 1.0 {Cuba'U}/dL Normal < 2.0 [facility] Comment on above: Performed By: #### M G #### [facility] [address] [place] [address] Urine Microscopicon 05-20 24 Urine Bacteria FEW Abnormal Negative [facility] Comment on above: Performed By: #### U YASMINE #### [facility] [address] [place] [address] Urine Epithelial Cells Auto 0-2 Normal 0-5 [facility] Comment on above: Performed By: #### U YASMINE #### [facility] [address] [place] [address] Urine Hyaline Casts Auto 1-3 Normal 0-5 [facility] Comment on above: Performed By: #### U YASMINE #### [facility] [address] [place] [address] Urine RBC Auto 6-10 Abnormal 0-5 [facility] Comment on above: Performed By: #### U YASMINE #### [facility] [address] [place] [address] Urine WBC Auto >100 Critically high 0-5 [facility] Comment on above: Performed By: #### U YASMINE #### [facility] [address] [place] [address] CBC With Platelet No Differe ntialon 12-02-2023 Erythrocyte distribution width (RBC) [Ratio] 13.6 % Normal 11.5-14.5 [facility] Comment on above: Performed By: #### C BCND #### [facility] [address] [place] [address] Hematocrit (Bld) [Volume fraction] 38.3 % Normal 37.0-47.0 [facility] Comment on above: Performed By: #### C BCND #### [facility] [address] [place] [address] Hemoglobin (Bld) [Mass/Vol] 12.7 g/dL Normal 12.0-16.0 [facility] Comment on above: Performed By: #### C BCND #### [facility] [address] [place] [address] MCH (RBC) [Entitic mass] 32.1 pg Critically high 27.0-31.3 [facility] Comment on above: Performed By: #### C BCND #### [facility] [address] [place] [address] MCHC 33.2 % Normal 33.0-37.0 [facility] Comment on above: Performed By: #### C BCND #### [facility] [address] [place] [address] MCV (RBC) [Entitic vol] 96.7 fL Critically high 79.4-94 .8 [facility] Comment on above: Performed By: #### C BCND #### [facility] [address] [place] [address] Platelets (Bld) [#/Vol] 149 10*3/uL Normal 130-400 [facility] Comment on above: Performed By: #### C BCND #### [facility] [address] [place] [address] RBC (Bld) [#/Vol] 3.96 10*6/uL Low 4.20-5.40 [facility] Comment on above: Performed By: #### C BCND #### [facility] [address] [place] [address] WBC (Bld) [#/Vol] 5.2 10*3/uL Normal 4.8-10.8 [facility] Comment on above: Performed By: #### C BCND #### [facility] [address] [place] [address] Culture, Urineon 11-28-2023 Culture, Urine ORDER#: [id number] ORDERED BY: YNES LANDA SOURCE: Urine Clean Catch COLLECTED: 11/28/23 14:19 ANTIBIOTICS AT MAX.: RECEIVED : 11/28/23 16:28 Culture, Urine FINAL 11/29/23 18:57 Cult,Urine: NO SIGNIFICANT [place] [address] Normal [facility] Comment on above: Performed By: #### C XURN #### [facility] [address] [place] [address] Urinalysis, reflex to micros copicon 11-28-2023 Bilirubin Ql (U) Negative Normal Negative [facility] Comment on above: Performed By: #### U YASMINE #### [facility] [address] [place] [address] Clarity (U) Clear Normal Clear [facility] Comment on above: Performed By: #### U YASMINE #### [facility] [address] [place] [address] Color (U) Yellow Normal Straw/Bingham [facility] Comment on above: Performed By: #### U YASMINE #### [facility] [address] [place] [address] Glucose Ql (U) Negative Normal Negative [facility] Comment on above: Performed By: #### U YASMINE #### [facility] [address] [place] [address] Hemoglobin Ql (U) Negative Normal Negative [facility] Comment on above: Performed By: #### U YASMINE #### [facility] [address] [place] [address] Ketones Ql (U) Negative Normal Negative [facility] Comment on above: Performed By: #### U YASMINE #### [facility] [address] [place] [address] Leukocyte esterase Test strip Ql (U) Negative Normal Negative [facility] Comment on above: Performed By: #### U YASIMNE #### [facility] [address] [place] [address] Nitrite Ql (U) Negative Normal Negative [facility] Comment on above: Performed By: #### U YASMINE #### [facility] [address] [place] [address] pH (U) 7.0 [pH] Normal 5.0-9.0 [facility] Comment on above: Performed By: #### U YASMINE #### [facility] [address] [place] [address] Protein Ql (U) Negative Normal Negative [facility] Comment on above: Performed By: #### U YASMINE #### [facility] [address] [place] [address] Specific gravity (U) [Rel density] 1.007 Normal 1.005-1.03 [facility] Comment on above: Performed By: #### U YASMINE #### [facility] [address] [place] [address] Urobilinogen Qn (U) 1.0 {Cuba'U}/dL Normal < 2.0 [facility] Comment on above: Performed By: #### U YASMINE #### [facility] [address] [place] [address] Alanine aminotransferase [En zymatic activity/volume] in Serum or PlasmaOrdered By: Carline Jackson on 11-23-2023 ALT [Catalytic activity/Vol] 20 U/L 7-52 [facility] Albumin [Mass/volume] in Ser um or Plasma by Bromocresol green (BCG) dye binding methoOrdered By: Carline Jackson on 11-23-2023 Albumin BCG dye [Mass/Vol] 3.2 g/dL 3.5-5.7 [facility] Alkaline phosphatase [Enzyma tic activity/volume] in Serum or PlasmaOrdered By: Carline Jackson on 11-23-2023 ALP [Catalytic activity/Vol] 75 U/L 34-104 [facility] Aspartate aminotransferase [ Enzymatic activity/volume] in Serum or PlasmaOrdered By: Carline Jackson on 11-23-2023 AST [Catalytic activity/Vol] 40 U/L 13-39 [facility] Basophils Auto (Bld) [#/Vol] Ordered By: Carline Jackson on 11-23-2023 Basophils (Bld) [#/Vol] 0.1 10*3/uL 0.0-0.2 [facility] Basophils/100 WBC Auto (Bld) Ordered By: Carline Jackson on 11-23-2023 Basophils/100 WBC (Bld) 1.1 % . [facility] Bilirubin.total [Mass/volume ] in Serum or PlasmaOrdered By: Carline Jackson on 11-23-2023 Bilirubin [Mass/Vol] 0.9 mg/dL 0.3-1.0 [facility] Calcium [Mass/volume] in Ser um or PlasmaOrdered By: Carline Jackson on 11-23-2023 Calcium [Mass/Vol] 8.7 mg/dL 8.6-10.3 [facility] Carbon dioxide, total [Moles /volume] in Serum or PlasmaOrdered By: Carline Jackson on 11-23-2023 CO2 [Moles/Vol] 27.2 mmol/L 21.0-31.0 [facility] Chloride [Moles/volume] in S marianna or PlasmaOrdered By: Carline Jackson on 11-23-2023 Chloride [Moles/Vol] 104 mmol/L 98-107 [facility] Creatinine [Mass/volume] in Serum or PlasmaOrdered By: Carline Jackson on 11-23-2023 Creatinine [Mass/Vol] 0.79 mg/dL 0.60-1.20 [facility] Eosinophils Auto (Bld) [#/Vo l]Ordered By: Carline Jackson on 11-23-2023 Eosinophils (Bld) [#/Vol] 0.5 10*3/uL 0.0-0.45 [facility] Eosinophils/100 WBC Auto (Bl d)Ordered By: Carline Jackson on 11-23-2023 Eosinophils/100 WBC (Bld) 9.7 % . [facility] Erythrocyte distribution wid th Auto (RBC) [Ratio]Ordered By: Carline Jackson on 11-23-2023 Erythrocyte distribution width (RBC) [Ratio] 13.9 % 11.9-15.3 [facility] Erythrocyte sedimentation ra te by Photometric methodOrdered By: Carline Jackson on 11-23-2023 ESR Photometric method (Bld) [Velocity] 30 mm/hr 0-29 [facility] Globulin Calc (S) [Mass/Vol] Ordered By: Carline Jackson on 11-23-2023 Globulin (S) [Mass/Vol] 4.1 g/dL F [facility] Glucose [Mass/volume] in Ser um or PlasmaOrdered By: Carline Jackson on 11-23-2023 Glucose [Mass/Vol] 94 mg/dL 70-100 [facility] Comment on above: ADA recommended refe rence rangeRandom Glucose Reference Range is dependent on time and content of last meal. Glucose of more than 200 mg/dL in a nonstressed, ambulatory subject supports the diagnosis of Diabetes Mellitus. Hematocrit Auto (Bld) [Volum e fraction]Ordered By: Carline Jackson on 11-23-2023 Hematocrit (Bld) [Volume fraction] 37.4 % 34.0-46.4 [facility] Hemoglobin [Mass/volume] in BloodOrdered By: Carline Jackson on 11-23-2023 Hemoglobin (Bld) [Mass/Vol] 12.6 g/dL 11.8-15.4 [facility] Leukocytes [#/volume] correc kala for nucleated erythrocytes in Blood by Automated counOrdered By: Carline Jackson on 11-23-2023 WBC corrected for nucl RBC Auto (Bld) [#/Vol] 5.3 10*3/uL 3.8-11.6 [facility] Lymphocytes Auto (Bld) [#/Vo l]Ordered By: Carline Jackson on 11-23-2023 Lymphocytes (Bld) [#/Vol] 2.4 10*3/uL 1.00-4.8 [facility] Lymphocytes/100 WBC Auto (Bl d)Ordered By: Carline Jackson on 11-23-2023 Lymphocytes/100 WBC (Bld) 45.9 % . [facility] MCH Auto (RBC) [Entitic mass ]Ordered By: Carline Jackson on 11-23-2023 MCH (RBC) [Entitic mass] 32.6 pg 24.7-34.3 [facility] MCHC Auto (RBC) [Mass/Vol]Or dered By: Carline Jackson on 11-23-2023 MCHC (RBC) [Mass/Vol] 33.8 g/dL 32.0-35.0 [facility] MCV Auto (RBC) [Entitic vol] Ordered By: Carline Jackson on 11-23-2023 MCV (RBC) [Entitic vol] 96.4 fL 80-100 [facility] Monocytes Auto (Bld) [#/Vol] Ordered By: Carline Jackson on 11-23-2023 Monocytes (Bld) [#/Vol] 0.5 10*3/uL 0.0-0.8 [facility] Monocytes/100 WBC Auto (Bld) Ordered By: Carline Jackson on 11-23-2023 Monocytes/100 WBC (Bld) 9.1 % . F [facility] Neutrophils Auto (Bld) [#/Vo l]Ordered By: Carline Jakcson on 11-23-2023 Neutrophils (Bld) [#/Vol] 1.8 10*3/uL 1.8-7.7 [facility] Neutrophils/100 WBC Auto (Bl d)Ordered By: Carline Jackson on 11-23-2023 Neutrophils/100 WBC (Bld) 34.2 % . [facility] No Panel InformationOrdered By: Carline Jackson on 11-23-2023 Estimated GFR (CKD-EPI) > 60.0 mL/Min [facility] Creatinine Clearance (Chem N/A [facility] Nucleated erythrocytes [Pres ence] in Blood by Automated countOrdered By: Carline Jackson on 11-23-2023 Nucleated RBC Auto Ql (Bld) 0.2 /100{WBC} 0-0.5 [facility] Platelet mean volume Auto (B ld) [Entitic vol]Ordered By: Carline Jackson on 11-23-2023 Platelet mean volume (Bld) [Entitic vol] 8.6 fL 6.3-10.7 [facility] Platelets Auto (Bld) [#/Vol] Ordered By: Carline Jackson on 11-23-2023 Platelets (Bld) [#/Vol] 165 10*3/uL 150-450 [facility] Potassium [Moles/volume] in Serum or PlasmaOrdered By: Carline Jackson on 11-23-2023 Potassium [Moles/Vol] 4.4 mmol/L 3.5-5.1 [facility] Protein [Mass/volume] in Ser um or PlasmaOrdered By: Carline Jackson on 11-23-2023 Protein [Mass/Vol] 7.3 g/dL 6.4-8.9 [facility] RBC Auto (Bld) [#/Vol]Ordere d By: Carline Jackson on 11-23-2023 RBC (Bld) [#/Vol] 3.87 10*6/uL 3.60-5.00 [facility] Serum or plasma albumin/glob ulin mass ratioOrdered By: Carline Jackson on 11-23-2023 Albumin/Globulin [Mass ratio] 0.8 {ratio} [facility] Serum or plasma anion gap de terminationOrdered By: Carline Jackson on 11-23-2023 Anion gap [Moles/Vol] 7.2 mmol/L 6.0-15.0 [facility] Sodium [Moles/volume] in Ser um or PlasmaOrdered By: Carline Jackson on 11-23-2023 Sodium [Moles/Vol] 134 mmol/L 136-145 [facility] Urea nitrogen [Mass/volume] in Serum or PlasmaOrdered By: Carline Jackson on 11-23-2023 Urea nitrogen [Mass/Vol] 16 mg/dL 7-25 [facility] WBC Auto (Bld) [#/Vol]Ordere d By: Carline Jackson on 11-23-2023 WBC (Bld) [#/Vol] 5.3 10*3/uL 3.8-11.6 [facility] Urinalysis, reflex to micros copicon 11-07-2023 Bilirubin Ql (U) Negative Normal Negative [facility] Comment on above: Performed By: #### U A #### [facility] [address] [place] [address] Clarity (U) CLOUDY Abnormal Clear [facility] Comment on above: Performed By: #### U A #### [facility] [address] [place] [address] Color (U) Yellow Normal Straw/Bingham [facility] Comment on above: Performed By: #### U A #### [facility] [address] [place] [address] Glucose Ql (U) Negative Normal Negative [facility] Comment on above: Performed By: #### U A #### [facility] [address] [place] [address] Hemoglobin Ql (U) TRACE Abnormal Negative [facility] Comment on above: Performed By: #### U A #### [facility] [address] [place] [address] Ketones Ql (U) Negative Normal Negative [facility] Comment on above: Performed By: #### U A #### [facility] [address] [place] [address] Leukocyte esterase Test strip Ql (U) LARGE Abnormal Negative [facility] Comment on above: Performed By: #### U A #### [facility] [address] [place] [address] Nitrite Ql (U) Positive Abnormal Negative [facility] Comment on above: Performed By: #### U A #### [facility] [address] [place] [address] pH (U) 7.5 [pH] Normal 5.0-9.0 [facility] Comment on above: Performed By: #### U A #### [facility] [address] [place] [address] Protein Ql (U) TRACE Abnormal Negative [facility] Comment on above: Performed By: #### U A #### [facility] [address] [place] [address] Specific gravity (U) [Rel density] 1.014 Normal 1.005-1.03 [facility] Comment on above: Performed By: #### U A #### [facility] [address] [place] [address] Urobilinogen Qn (U) 4.0 {Cuba'U}/dL Abnormal < 2.0 [facility] Comment on above: Performed By: #### U A #### [facility] [address] [place] [address] Urine Microscopicon 11-07-19 24 Epithelial cells LM Ql (Urine sed) 0-2 Normal [facility] Comment on above: Performed By: #### U YASMINE #### [facility] [address] [place] [address] Urine Bacteria MODERATE Abnormal Negative [facility] Comment on above: Performed By: #### U YASMINE #### [facility] [address] [place] [address] Urine RBC 0-2 Normal 0-2 [facility] Comment on above: Performed By: #### U YASMINE #### [facility] [address] [place] [address] WBC (U) [#/Vol] /uL Abnormal 0-5 [facility] Comment on above: Performed By: #### U YASMINE #### [facility] [address] [facility] [id number] Bacterial susceptibility hernandez el YASMINE (Isol)on 11-06-2023 Bacterial susceptibility panel Disk diffusion (KB) (Isol) ORDER#: [id number] ORDERED BY: YNES LANDA SOURCE: Urine Voided COLLECTED: 11/06/23 06:00 ANTIBIOTICS AT MAX.: RECEIVED : 11/07/23 07:50 Culture, Urine FINAL 11/09/23 08:13 Performed at [address] [address] ([phone] Enterobacter cloacae complex >100,000 CFU/ML E. cloacae complex ANTIBIOTICS YASMINE Interp KB ZoneKB Interp Ceftriaxone S Gentamicin <=1 S Levofloxacin <=0.12 S Nitrofurantoin 64 I Piperacillin/Tazobacta m <=4 S Trimethoprim/Sulfameth oxazole <=20 S S=SUSCEPTIBLE I=INTERMEDIATE R=RESISTANT Normal [facility] Comment on above: Performed By: #### 5 0545-3 #### [facility] [address] [facility] [address] Bacterial susceptibility hernandez el by Kedar 11-06-2023 Bacterial susceptibility panel YASMINE (Isol) ORDER#: [id number] ORDERED BY: YNES LANDA SOURCE: Urine Voided COLLECTED: 11/06/23 06:00 ANTIBIOTICS AT MAX.: RECEIVED : 11/07/23 07:50 Culture, Urine PRELIM 11/08/23 23:23 Performed at [place] [id number] [facility] [address] Enterobacter cloacae complex >100,000 CFU/ML E. cloacae complex ANTIBIOTICS YASMINE Interp Gentamicin <=1 S Levofloxacin <=0.12 S Nitrofurantoin 64 I Piperacillin/Tazobacta m <=4 S Trimethoprim/Sulfameth oxazole <=20 S S=SUSCEPTIBLE I=INTERMEDIATE R=RESISTANT Normal [facility] Comment on above: Performed By: #### 5 0545-3 #### [facility] [address] [place] [address] Culture, Urineon 11-06-2023 Culture, Urine ORDER#: [id number] ORDERED BY: YNES LANDA SOURCE: Urine Voided COLLECTED: 11/06/23 06:00 ANTIBIOTICS AT MAX.: RECEIVED : 11/07/23 07:50 Culture, Urine PRELIM 11/08/23 10:00 [place] [address] Enterobacter cloacae complex >100,000 CFU/ML Normal [facility] Comment on above: Performed By: #### U YASMINE #### [facility] [address] [place] [address] Alcoholon 10-21-2023 Blood Alcohol Concentration Not indicated [facility] Comment on above: Performed By: #### C XURN #### [facility] [address] [place] [address] Ethanol [Mass/Vol] mg/dL Normal [facility] Comment on above: Performed By: #### C XURN #### [facility] [address] [place] [address] Bacterial susceptibility hernandez el by MICon 10-21-2023 Bacterial susceptibility panel YASMINE (Isol) ORDER#: [id number] ORDERED BY: AYANA KING SOURCE: Urine Clean Catch COLLECTED: 10/21/23 18:35 ANTIBIOTICS AT MAX.: RECEIVED : 10/21/23 18:35 Culture, Urine FINAL 10/23/23 20:41 Performed at [address] [address] Escherichia coli >100,000 CFU/ML E. coli ANTIBIOTICS [...] and P. mirabilis S=SUSCEPTIBLE I=INTERMEDIATE R=RESISTANT Normal [facility] Comment on above: Performed By: #### C GAYLE #### [facility] [address] [place] [address] CBC With Platelet and Differ entialon 10-21-2023 Basophils (Bld) [#/Vol] 0.1 10*3/uL Normal 0.0-0.2 [facility] Comment on above: Performed By: #### C XURN #### [facility] [address] [place] [address] Basophils/100 WBC (Bld) 1.1 % Normal [facility] Comment on above: Performed By: #### C XURN #### [facility] [address] [place] [address] Eosinophils (Bld) [#/Vol] 0.6 10*3/uL Normal 0.0-0.7 [facility] Comment on above: Performed By: #### C XURN #### [facility] [address] [place] [address] Eosinophils/100 WBC (Bld) 9.0 % Normal [facility] Comment on above: Performed By: #### C XURN #### [facility] [address] [place] [address] Erythrocyte distribution width (RBC) [Ratio] 13.5 % Normal 11.5-14.5 [facility] Comment on above: Performed By: #### C XURN #### [facility] [address] [place] [address] Hematocrit (Bld) [Volume fraction] 42.3 % Normal 37.0-47.0 [facility] Comment on above: Performed By: #### C XURN #### [facility] [address] [place] [address] Hemoglobin (Bld) [Mass/Vol] 13.7 g/dL Normal 12.0-16.0 [facility] Comment on above: Performed By: #### C XURN #### [facility] [address] [place] [address] Lymphocytes (Bld) [#/Vol] 2.9 10*3/uL Normal 1.0-4.8 [facility] Comment on above: Performed By: #### Sherita ARAUJO #### [facility] [address] [place] [address] Lymphocytes/100 WBC (Bld) 44.8 % Normal [facility] Comment on above: Performed By: #### C GAYLE #### [facility] [address] [place] [address] MCH (RBC) [Entitic mass] 32.2 pg Critically high 27.0-31.3 [facility] Comment on above: Performed By: #### C GAYLE #### [facility] [address] [place] [address] MCHC 32.4 % Low 33.0-37.0 [facility] Comment on above: Performed By: #### Sherita AARUJO #### [facility] [address] [place] [address] MCV (RBC) [Entitic vol] 99.3 fL Critically high 79.4-94 .8 [facility] Comment on above: Performed By: #### Sherita ARAUJO #### [facility] [address] [place] [place] [address] Monocytes (Bld) [#/Vol] 0.7 10*3/uL Normal 0.2-0.8 [facility] Comment on above: Performed By: #### Sherita ARAUJO #### [facility] [address] [place] [address] Monocytes/100 WBC (Bld) 10.9 % Normal [facility] Comment on above: Performed By: #### Sherita ARAUJO #### [facility] [address] [place] [address] Neutrophils (Bld) [#/Vol] 2.2 10*3/uL Normal 1.4-6.5 [facility] Comment on above: Performed By: #### Sherita ARAUJO #### [facility] [address] [place] [address] Neutrophils/100 WBC (Bld) 33.9 % Normal [facility] Comment on above: Performed By: #### C XURN #### [facility] [address] [place] [address] Platelets (Bld) [#/Vol] 147 10*3/uL Normal 130-400 [facility] Comment on above: Performed By: #### C XURN #### [facility] [address] [facility] [address] RBC (Bld) [#/Vol] 4.26 10*6/uL Normal 4.20-5.40 [facility] Comment on above: Performed By: #### C XURN #### [facility] [address] [facility] [address] WBC (Bld) [#/Vol] 6.5 10*3/uL Normal 4.8-10.8 [facility] Comment on above: Performed By: #### C XURN #### [facility] [address] [facility] [address] COVID-19on 10-21-2023 SARS-CoV-2 (COVID-19) RNA MARCY+probe Ql (Unsp spec) Not detected Normal Not Detect [facility] Comment on above: Result Comment: Rapi d NAAT: Negative results should be treated as [...] authorized laboratories. Fact sheet for Healthcare Providers: https://www.fda.gov/media/564816/download Fact sheet for Patients: https://www.fda.gov/media/869476/download METHODOLOGY: Isothermal Nucleic Acid Amplification Performed By: #### C OVRG #### [facility] [address] [facility] [address] [address] CERVICAL SPINE WO CONTRAS Ton 10-21-2023 [...] Rene Cervantes MD 10/21/23 Final result Normal [facility] CT HEAD WO CONTRASTon 2023 CT HEAD [...] Michael Stafford MD 10/21/23 Final result Normal [facility] Comprehensive Metabolic Pane ridge 10-21-2023 Albumin [Mass/Vol] 3.5 g/dL Normal 3.5-4.6 [facility] Comment on above: Performed By: #### C MP #### [facility] [address] [place] [address] ALP [Catalytic activity/Vol] 102 U/L Normal 40-130 [facility] Comment on above: Performed By: #### C MP #### [facility] [address] [place] [address] ALT [Catalytic activity/Vol] 21 U/L Normal 0-33 [facility] Comment on above: Performed By: #### C MP #### [facility] [address] [place] [address] Anion gap [Moles/Vol] 8 mmol/L Low 9-15 [facility] Comment on above: Performed By: #### C MP #### [facility] [address] [place] [address] AST [Catalytic activity/Vol] 40 U/L Critically high 0-35 [facility] Comment on above: Performed By: #### C MP #### [facility] [address] [place] [address] Bilirubin [Mass/Vol] 0.6 mg/dL Normal 0.2-0.7 [facility] Comment on above: Performed By: #### C MP #### [facility] [address] [place] [address] Calcium [Mass/Vol] 8.7 mg/dL Normal 8.5-9.9 [facility] Comment on above: Performed By: #### C MP #### [facility] [address] [place] [address] Chloride [Moles/Vol] 101 mmol/L Normal 95-107 [facility] Comment on above: Performed By: #### C MP #### [facility] [address] [place] [address] CO2 [Moles/Vol] 25 mmol/L Normal 20-31 [facility] Comment on above: Performed By: #### C MP #### [facility] [address] [place] [address] Creatinine [Mass/Vol] 0.64 mg/dL Normal 0.50-0.90 [facility] Comment on above: Performed By: #### C MP #### [facility] [address] [place] [address] GFR >60.0 Normal >60 [facility] Comment on above: Result Comment: Noreen atric [...] secretion. Performed By: #### C MP #### [facility] [address] [place] [address] Globulin (S) [Mass/Vol] 4.3 g/dL Critically high 2.3-3.5 [facility] Comment on above: Performed By: #### C MP #### [facility] [address] [place] [address] Glucose [Mass/Vol] 102 mg/dL Critically high 70-99 [facility] Comment on above: Performed By: #### C MP #### [facility] [address] [place] [address] Potassium [Moles/Vol] 4.7 mmol/L Normal 3.4-4.9 [facility] Comment on above: Performed By: #### C MP #### [facility] [address] [place] [address] Protein [Mass/Vol] 7.8 g/dL Normal 6.3-8.0 [facility] Comment on above: Performed By: #### C MP #### [facility] [address] [place] [address] Sodium [Moles/Vol] 134 mmol/L Low 135-144 [facility] Comment on above: Performed By: #### C MP #### [facility] [address] [place] [address] Urea nitrogen [Mass/Vol] 14 mg/dL Normal 8-23 [facility] Comment on above: Performed By: #### C MP #### [facility] [address] [place] [address] Culture, Urineon 10-21-2023 Culture, Urine ORDER#: [id number] ORDERED BY: AYANA KING SOURCE: Urine Clean Catch COLLECTED: 10/21/23 18:35 ANTIBIOTICS AT MAX.: RECEIVED : 10/21/23 18:35 Culture, Urine PRELIM 10/23/23 08:53 Performed at [facility] [address] [place] [address] ([phone] Escherichia coli >100,000 CFU/ML Normal [facility] Comment on above: Performed By: #### C XURN #### [facility] [address] [place] [address] High Sensitivity Troponin To n 10-21-2023 High Sensitivity Troponin T 7 ng/L Normal 0-19 [facility] Comment on above: Result Comment: High Sensitivity Troponin values cannot be compared with other Troponin methodologies. Performed By: #### C GAYLE #### [facility] [address] [place] [address] Lipaseon 10-21-2023 Lipase [Catalytic activity/Vol] 51 U/L Normal 12-95 [facility] Comment on above: Performed By: #### C GAYLE #### [facility] [address] [place] [address] Magnesiumon 10-21-2023 Magnesium [Mass/Vol] 2.0 mg/dL Normal 1.7-2.4 [facility] Comment on above: Performed By: #### C GAYLE #### [facility] [address] [place] [address] TSH w/out Reflexon TSH w/out Reflex 0.794 uIU/mL Normal 0.440-3.86 [facility] Comment on above: Performed By: #### C GAYLE #### [facility] [address] [place] [address] Thyroxine Freeon 10-21-2023 Thyroxine Free 1.07 ng/dL Normal 0.84-1.68 [facility] Comment on above: Performed By: #### C GAYLE #### [facility] [address] [place] [address] Urinalysis, reflex to cultur adri 10-21-2023 Urine Reflexed to Culture Yes Normal [facility] Comment on above: Performed By: #### U AR #### [facility] [address] [place] [address] Bilirubin Ql (U) Negative Normal Negative [facility] Comment on above: Performed By: #### U AR #### [facility] [address] [place] [address] Clarity (U) Clear Normal Clear [facility] Comment on above: Performed By: #### U AR #### [facility] [address] [place] [address] Color (U) Yellow Normal Straw/Bingham [facility] Comment on above: Performed By: #### U AR #### [facility] [address] [place] [address] Glucose Ql (U) Negative Normal Negative [facility] Comment on above: Performed By: #### U AR #### [facility] [address] [place] [address] Hemoglobin Ql (U) Negative Normal Negative [facility] Comment on above: Performed By: #### U AR #### [facility] [address] [place] [address] Ketones Ql (U) Negative Normal Negative [facility] Comment on above: Performed By: #### U AR #### [facility] [address] [place] [address] Leukocyte esterase Test strip Ql (U) SMALL Abnormal Negative [facility] Comment on above: Performed By: #### U AR #### [facility] [address] [place] [address] Nitrite Ql (U) Positive Abnormal Negative [facility] Comment on above: Performed By: #### U AR #### [facility] [address] [place] [address] pH (U) 7.5 [pH] Normal 5.0-9.0 [facility] Comment on above: Performed By: #### U AR #### [facility] [address] [place] [address] Protein Ql (U) Negative Normal Negative [facility] Comment on above: Performed By: #### U AR #### [facility] [address] [place] [address] Specific gravity (U) [Rel density] 1.010 Normal 1.005-1.03 [facility] Comment on above: Performed By: #### U AR #### [facility] [address] [place] [address] Urobilinogen Qn (U) 1.0 {[place]'U}/dL Normal < 2.0 [facility] Comment on above: Performed By: #### U AR #### [facility] [address] [place] [address] Urine Microscopicon 10-21-19 24 Urine Bacteria MANY Abnormal Negative [facility] Comment on above: Performed By: #### U AR #### [facility] [address] [place] [address] Urine Epithelial Cells Auto 0-2 Normal 0-5 [facility] Comment on above: Performed By: #### U AR #### [facility] [address] [place] [address] Urine Hyaline Casts Auto 0-1 Normal 0-5 [facility] Comment on above: Performed By: #### U AR #### [facility] [address] [place] [address] Urine RBC Auto 6-10 Abnormal 0-5 [facility] Comment on above: Performed By: #### U AR #### [facility] [address] [place] [address] Urine WBC Auto 20-50 Abnormal 0-5 [facility] Comment on above: Performed By: #### U AR #### [facility] [address] [place] [address] XR CHEST PORTABLEon 10-21-19 24 XR CHEST PORTABLE EXAMINATION: ONE XRAY [...] Fahad Dozier MD 10/21/23 Final result Normal [facility] TSH 3rd Generationon 024 TSH 3rd Generation 1.550 mU/L Normal 0.270-4.20 [facility] Comment on above: Result Comment: REFE RENCE INTERVAL: TSH 3rd Generation Access complete set of age- and/or gender-specific reference intervals for this test in the [employer] [facility] Test Directory (eBillme). Performed By: [facility] [address] [place] [address] Repairer Sash And Door: Rehan Harrell MD, PhD CLIA Number: [id number] CBC With Platelet No Differe ntialon 09-12-2023 Erythrocyte distribution width (RBC) [Ratio] 13.2 % Normal 11.5-14.5 [facility] Comment on above: Performed By: #### C BCND #### [facility] [address] [place] [address] Hematocrit (Bld) [Volume fraction] 39.1 % Normal 37.0-47.0 [facility] Comment on above: Performed By: #### C BCND #### [facility] [address] [place] [address] Hemoglobin (Bld) [Mass/Vol] 12.9 g/dL Normal 12.0-16.0 [facility] Comment on above: Performed By: #### C BCND #### [facility] [address] [place] [address] MCH (RBC) [Entitic mass] 32.0 pg Critically high 27.0-31.3 [facility] Comment on above: Performed By: #### C BCND #### [facility] [address] [place] [address] MCHC 33.0 % Normal 33.0-37.0 [facility] Comment on above: Performed By: #### C BCND #### [facility] [address] [place] [address] MCV (RBC) [Entitic vol] 97.0 fL Critically high 79.4-94 .8 [facility] Comment on above: Performed By: #### C BCND #### [facility] [address] [place] [address] Platelets (Bld) [#/Vol] 212 10*3/uL Normal 130-400 [facility] Comment on above: Performed By: #### C BCND #### [facility] [address] [place] [address] RBC (Bld) [#/Vol] 4.03 10*6/uL Low 4.20-5.40 [facility] Comment on above: Performed By: #### C BCND #### [facility] [address] [place] [address] WBC (Bld) [#/Vol] 5.1 10*3/uL Normal 4.8-10.8 [facility] Comment on above: Performed By: #### C BCND #### [facility] [address] [place] [address] Comprehensive Metabolic Pane ridge 09-12-2023 Albumin [Mass/Vol] 3.5 g/dL Normal 3.5-4.6 [facility] Comment on above: Performed By: #### C MP #### [facility] [address] [place] [address] ALP [Catalytic activity/Vol] 79 U/L Normal 40-130 [facility] Comment on above: Performed By: #### C MP #### [facility] [address] [place] [address] ALT [Catalytic activity/Vol] 23 U/L Normal 0-33 [facility] Comment on above: Performed By: #### C MP #### [facility] [address] [place] [address] Anion gap [Moles/Vol] 9 mmol/L Normal 9-15 [facility] Comment on above: Performed By: #### C MP #### [facility] [address] [place] [address] AST [Catalytic activity/Vol] 43 U/L Critically high 0-35 [facility] Comment on above: Performed By: #### C MP #### [facility] [address] [place] [address] Bilirubin [Mass/Vol] 0.8 mg/dL Critically high 0.2-0.7 [facility] Comment on above: Performed By: #### C MP #### [facility] [address] [place] [address] Calcium [Mass/Vol] 8.7 mg/dL Normal 8.5-9.9 [facility] Comment on above: Performed By: #### C MP #### [facility] [address] [place] [address] Chloride [Moles/Vol] 102 mmol/L Normal 95-107 [facility] Comment on above: Performed By: #### C MP #### [facility] [address] [place] [address] CO2 [Moles/Vol] 24 mmol/L Normal 20-31 [facility] Comment on above: Performed By: #### C MP #### [facility] [address] [place] [address] Creatinine [Mass/Vol] 0.68 mg/dL Normal 0.50-0.90 [facility] Comment on above: Performed By: #### C MP #### [facility] [address] [place] [address] GFR >60.0 Normal >60 [facility] Comment on above: Result Comment: Noreen atric [...] secretion. Performed By: #### C MP #### [facility] [address] [place] [address] Globulin (S) [Mass/Vol] 4.1 g/dL Critically high 2.3-3.5 [facility] Comment on above: Performed By: #### C MP #### [facility] [address] [place] [address] Glucose [Mass/Vol] 100 mg/dL Critically high 70-99 [facility] Comment on above: Performed By: #### C MP #### [facility] [address] [place] [address] Potassium [Moles/Vol] 4.2 mmol/L Normal 3.4-4.9 [facility] Comment on above: Performed By: #### C MP #### [facility] [address] [place] [address] Protein [Mass/Vol] 7.6 g/dL Normal 6.3-8.0 [facility] Comment on above: Performed By: #### C MP #### [facility] [address] [place] [address] Sodium [Moles/Vol] 135 mmol/L Normal 135-144 [facility] Comment on above: Performed By: #### C MP #### [facility] [address] [place] [address] Urea nitrogen [Mass/Vol] 13 mg/dL Normal 8-23 [facility] Comment on above: Performed By: #### C MP #### [facility] [address] [place] [address] Magnesiumon 09-12-2023 Magnesium [Mass/Vol] 1.9 mg/dL Normal 1.7-2.4 [facility] Comment on above: Performed By: #### M G #### [facility] [address] [place] [address] proBNPon 09-12-2023 Natriuretic peptide B (Bld) [Mass/Vol] 400 pg/mL Normal [facility] Comment on above: Result Comment: NT-p ro [...] 2006;27:330-337 Performed By: #### U YASMINE #### [facility] [address] [facility] [place] [id number] Quantiferon-TB Plus (Client Incubated)on 09-02-2023 Gamma interferon background IA Qn (Bld) 0.00 International_Unit/mL Invalid Interpretation Code [facility] Comment on above: Performed By: #### 1 [id number], [id number], [id number], [id number], [id number] #### [facility] [address] [place] [address] M. tuberculosis stim IFN-g by CD4+ CD8+ T-cells Qn (Bld) 0.00 International_Unit/mL Invalid Interpretation Code [facility] Comment on above: Performed By: #### 1 [id number], [id number], 6763330, [id number], [id number] #### [facility] [address] [place] [address] M. tuberculosis stim IFN-g by CD4+ T-cells Qn (Bld) 0.02 International_Unit/mL Invalid Interpretation Code [facility] Comment on above: Performed By: #### 1 [id number], [id number], 6481822, [id number], [id number] #### [facility] [address] [place] [address] M. tuberculosis stim IFN-g Ql (Bld) [Interp] Negative Invalid Interpretation Code Negative [facility] Comment on above: Result Comment: No r [...] interferon gamma. Chemiluminescence immunoassay methodology Performed at: [address] [id number] PhD Santos Villareal Performed By: #### 1 [id number], [id number], 1858854, [id number], [id number] #### [facility] [address] [place] [address] Mitogen stimulated gamma interferon Qn (Bld) >10.00 Invalid Interpretation Code [facility] Comment on above: Performed By: #### 1 [id number], [id number], 5116644, 7397827, [id number] #### [facility] [address] [place] [address] Service comment (Unsp spec) [Interp] Comment Invalid Interpretation Code [facility] Comment on above: Result Comment: Holland tiFERON-TB [...] for the test. Performed By: #### 1 [id number], 7338628, 2970877, 9018621, [id number] #### [facility] [address] [place] [address] Discharge Instructionson Discharge Instructions [id number]. [id number] Normal [facility] Inpatient Clinical Summaryon 08-31-2023 Inpatient Clinical Summary [address] [address] Clinical Summary Person Information: Name: CARIDAD CARIAS I Age: 83 Years : 1940 Sex: Female PCP: EDMOND PACHECO DO Marital Status: Phone: [phone] Race: White Ethnicity: Non- or Language: Citizen Of [place] Visit Id: Visit Reason: Altered mental status; AMS Speciality: Acuity: Enc Type: Observation Med Service: Medical Arrival: 08/27/2023 18:31:49 Discharge: Dispo Type: Admitted as IP to this [facility] Address: [address] [place] [id number] Provider Notes: Diagnosis: 1:Dementia; 2:History of CVA [...] Follow up: With: Address: When: Austyn Campos MD, [place] [address] [email or web address] [place] [id number] Within 2 to 4 weeks Patient Education Information: [facility] Inpatient Patient Summaryon 08-31-2023 Inpatient Patient Summary CARIDAD CARIAS I :1940 Visit Date:08/27/2023 Inpatient Discharge Instructions [...] Pending Diagnostic Test Results None Pharmacy Information [facility] New Follow Up Appointments after Discharge Follow Up with Andres RODRIGUEZ, LEATHA Zaman When: Within 2 to 4 weeks Where: [facility] [address] [place] [address]- Medications What How Much When Instructions Next [...] day 09/01/23 Unchanged omeprazole (omeprazole 20 mg Cap-DR) 1 [...] Neurodermatitis Nocturia (more content not included)... Normal [facility] Inpatient Patient Summary [address] [address] Patient Discharge Instructions PERSON INFORMATION Name: JVSUADCARIDAD I Date of : 1940 Current Date: [...] Depression, unspecified Condition at Discharge: Stable CARIDAD CARIAS I has been given the following list [...] results: None Follow up: With: Address: When: Austyn Campos MD, [facility]U [address] [place] [address] Within 2 to 4 weeks [...] ___Next Dose: ___ omeprazole (omeprazole 20 mg Diomedes-) 1 Capsules By Mouth once a day [...] the morning) (more content not included)... Normal [facility] Interdisciplinary Note - Adalberto e Manageron 08-31-2023 Interdisciplinary Note - Bakery Deliverer CRM to room to discuss DC planning. Patient is awake and alert in room. Family is present. Patient is [facility]. She is unable to return at DC and needs LTC in a memory unit. Patient PCP and insurance has been verified. Patient is an observation for AMS. Patient is assigned to DR Bhatti, see notes. Patient has Neurology on case. Patient has been referred to 1. [facility] per family had accepted and hoping to DC 08/31/23. We have sent needed paperwork to them and are awaiting on final confirmation of acceptance. TB test was ordered. Patient was provided CRM contact, white board updated. CRM following. Patient can DC to [facility] today Family is transporting Normal [facility] Comment on above: Result Comment: Elec tronically Signed By: Dianna Arthur\.br\Date and Time Signed: 08/31/23 14:51 EST Interdisciplinary Note - Soc ial Workeron 08-31-2023 Interdisciplinary Note - Rehabilitation Manager This SW spoke to Barbie at [facility] today and confirmed they have everything needed for patient to admit there today. She voiced that everything is good to go and asked that patient's RN call report to the Memory Care Nurse at the facility; this was relayed to staff. This SW will continue to await the results of patient's blood TB test and will send these over to [facility] once they are available. At this time they were able to utilize the Chest X-ray but continue to want the results of the blood test for compliance with their state requirements. SW will remain available. Normal [facility] Interdisciplinary Note - Adalberto e Manageron 08-30-2023 Interdisciplinary Note - Bakery Deliverer CRM to room to discuss DC planning. Patient is awake and alert in room. Family is present. Patient is from [facility]. She is unable to return at DC and needs LTC in a memory unit. Patient PCP and insurance has been verified. Patient is an observation for AMS. Patient is assigned to DR Bhatti, see notes. Patient has Neurology on case. [facility] and hoping to DC 08/31/23. We did send needed paper work filled out by Physician to [place] [facility] that they were requesting. TB test was ordered. Patient was provided CRM contact, white board updated. CRM following. Normal [facility] Comment on above: Result Comment: Elec tronically [...] Time: 35 Mins Plan: As above: waiting usp care facility placement Subjective The patient was [...] 4 mg= 1 tab(s), Oral, Bedtime Normal [facility] Comment on above: Result Comment: Elec tronically Signed By: Davy RODRIGUEZ, Alex\.br\Date and Time Signed: 08/30/23 09:39 EST Interdisciplinary Note - Adalberto e Manageron 08-29-2023 Interdisciplinary Note - Bakery Deliverer CRM to room to discuss DC planning. Patient is awake and alert in room. Patient [facility]. She is unable to return at DC and needs LTC in a memory unit. Patient daughter will be in today around 1300/1330. Patient PCP and insurance has been verified. Patient is an observation for AMS. Patient is assinged to DR Bhatti, see notes. Patient has Neurology on case. Patient has been referred to 1. [facility], 2. Janice at the [place], 3. [facility] and 4. [facility]. Patient was provided CRM contact, white board updated. CRM following. Will DC once placement found Normal [facility] Comment on above: Result Comment: Elec tronically Signed By: Dianna Arthur\.br\Date and Time Signed: 08/29/23 11:40 EST Interdisciplinary Note - Penelope n 08-29-2023 Interdisciplinary Note - OT OT [facility] six clicks score = no further OT needs. Patient requires close/dist sup w/ all adls and transfers d/t cues for safety/sequencing. This appears to be pt's baseline d/t dementia. Recommend 24 hr supervision for optimal safety and Ind w/ functional activities. DC inpatient OT services. Normal [facility] Progress Note-Physicianon Progress Note-Physician Basic Informatio n [...] 4 mg= 1 tab(s), Oral, Bedtime Normal [facility] Comment on above: Result Comment: Elec tronically Signed By: Davy RODRIGUEZ, Alex\.br\Date and Time Signed: 08/29/23 13:34 EST BMPon 08-28-2023 Anion gap [Moles/Vol] 7 mmol/L Normal 6-16 [facility] Comment on above: Performed By: #### 1 [id number], 6322337, 0140763, 9122228, 53282143 #### [facility] [address] [place] [address] BUN/Creat Ratio 22 No Units High 10-20 [facility] Comment on above: Performed By: #### 1 7209449, 1163075, 4326541, 2051346, 43702024 #### [facility] [address] [place] [address] Calcium [Mass/Vol] 8.3 mg/dL Low 8.9-11.1 [facility] Comment on above: Performed By: #### 1 6711802, 7688008, 9976365, 8888459, 77427699 #### [facility] [address] [place] [address] Chloride [Moles/Vol] 103 mmol/L Normal 101-111 [facility] Comment on above: Performed By: #### 1 8632612, 1339658, 6209521, 1701230, 39186535 #### [facility] [address] [place] [address] CO2 [Moles/Vol] 29 mmol/L Normal 21-31 [facility] Comment on above: Performed By: #### 1 4324265, 7719166, 8953848, 0007621, 62587200 #### [facility] [address] [place] [address] Creatinine [Mass/Vol] 0.6 mg/dL Normal 0.5-1.3 [facility] Comment on above: Performed By: #### 1 1145393, 3087231, 0387742, 0115629, 82071997 #### [facility] [address] [place] [address] Glucose [Mass/Vol] 90 mg/dL Normal 55-199 [facility] Comment on above: Performed By: #### 1 4531003, 2204510, 5267491, 8865745, 39437524 #### [facility] [address] [place] [address] Potassium [Moles/Vol] 4.0 mmol/L Normal 3.5-5.3 [facility] Comment on above: Performed By: #### 1 0854702, 2651532, 7927784, 6644005, 09389597 #### [facility] [address] [place] [address] Sodium [Moles/Vol] 135 mmol/L Normal 135-145 [facility] Comment on above: Performed By: #### 1 2850538, 8968628, 3707439, 0320669, 42586797 #### [facility] [address] [place] [address] Urea nitrogen [Mass/Vol] 13 mg/dL Normal 5-21 [facility] Comment on above: Performed By: #### 1 8953078, 6725129, 3566784, 3999713, 28405148 #### [facility] [address] [place] [address] CBC w/ Auto Diffon 4 Basophil Absolute 0.1 E9/L Normal 0.0-0.2 [facility] Comment on above: Performed By: #### 1 8522961, 7368796, 6322034, 7138353, 39765819 #### [facility] [address] [place] [address] Basophils/100 WBC (Bld) 1.0 % Normal 0.0-2.0 F [facility] Comment on above: Performed By: #### 1 2280619, 4321413, 8213831, 1820368, 48251324 #### [facility] [address] [place] [address] Eos Absolute 0.4 E9/L Normal 0.0-0.5 [facility] Comment on above: Performed By: #### 1 5207011, 2136803, 0172635, 9105753, 05746038 #### [facility] [address] [place] [address] Eosinophils/100 WBC (Bld) 7.8 % Normal 0.0-8.0 [facility] Comment on above: Performed By: #### 1 9157220, 1809440, 2804591, 1701916, 11412736 #### [facility] [address] [place] [address] Erythrocyte distribution width (RBC) [Ratio] 13.5 % Normal 10.9-14.2 [facility] Comment on above: Performed By: #### 1 2759546, 8185713, 4848766, 0861528, 96511711 #### [facility] [address] [place] [address] Hematocrit (Bld) [Volume fraction] 36.0 % Normal 34.0-46.0 [facility] Comment on above: Performed By: #### 1 7372535, 1283503, 9101163, 0465913, 73493541 #### [facility] [address] [place] [address] Hemoglobin (Bld) [Mass/Vol] 11.7 g/dL Low 12.0-16.0 [facility] Comment on above: Performed By: #### 1 1589917, 7605663, 1133919, 6316669, 20188358 #### [facility] [address] [place] [address] Lymph Absolute 2.4 E9/L Normal 1.0-4.0 [facility] Comment on above: Performed By: #### 1 9724916, 8911720, 5410074, 0229641, 20845590 #### [facility] [address] [place] [address] Lymphocytes/100 WBC (Bld) 46.5 % Normal 14.0-50.0 [facility] Comment on above: Performed By: #### 1 0335830, 5409169, 0418632, 5202227, 07146057 #### [facility] [address] [place] [address] MCH (RBC) [Entitic mass] 32.0 pg Normal 27.0-34.0 [facility] Comment on above: Performed By: #### 1 3462154, 0448369, 2978233, 0170389, 88996832 #### [facility] [address] [place] [address] MCHC (RBC) [Mass/Vol] 32.5 g/dL Normal 31.4-36.0 [facility] Comment on above: Performed By: #### 1 1307758, 4680861, 3409788, 2166070, 29017862 #### [facility] [address] [place] [address] MCV (RBC) [Entitic vol] 98.5 fL Normal 80.0-100.0 F [facility] Comment on above: Performed By: #### 1 3838123, 4393585, 9961151, 2983528, 36622609 #### [facility] [address] [place] [address] Marshall Absolute 0.6 E9/L Normal 0.2-1.0 [facility] Comment on above: Performed By: #### 1 8130858, 1249737, 9932439, 0406858, 98666052 #### [facility] [address] [place] [address] Monocytes/100 WBC (Bld) 10.5 % Normal 4.0-14.0 [facility] Comment on above: Performed By: #### 1 1495066, 5457049, 4252955, 2217943, 13404499 #### [facility] [address] [place] [address] Neutro Absolute 1.8 E9/L Low 2.0-7.5 [facility] Comment on above: Performed By: #### 1 3441758, 0687113, 1329585, 8079957, 32559727 #### [facility] [address] [place] [address] Neutro Auto 34.2 % Low 36.0-75.0 [facility] Comment on above: Performed By: #### 1 6725411, 2407256, 1076135, 5157852, 80178577 #### [facility] [address] [place] [address] Platelet 164.0 E9/L Normal 150.0-500.0 [facility] Comment on above: Performed By: #### 1 7909399, 8888288, 0265740, 0244803, 41283827 #### [facility] [address] [place] [address] Platelet mean volume (Bld) [Entitic vol] 7.6 fL Normal 6.4-10.8 [facility] Comment on above: Performed By: #### 1 8702765, 6265114, 7487779, 6986285, 39641735 #### [facility] [address] [place] [address] RBC 3.7 E12/L Low 4.3-5.9 [facility] Comment on above: Performed By: #### 1 3513333, 4817283, 4185051, 4728112, 71153817 #### [facility] [address] [place] [address] WBC 5.3 E9/L Normal 4.0-11.0 [facility] Comment on above: Performed By: #### 1 8530916, 6788652, 8785384, 0393271, 20878912 #### [facility] [address] [place] [address] Interdisciplinary Note - Adalberto e Manageron 08-28-2023 Interdisciplinary Note - Bakery Deliverer CRM spoke with patients daughter Linh on the phone as patient has dementia and confused. Patient was previous rounded on by Dr Rodriguez today. No family in room. Patient is Whiteboard updated and CRM contact # provided. Patients daughter verified PCP, insurance and DME. Per daughter patient has been at [facility] living and cannot return there as she is a flight risk. Daughter states she needs help to find a memory unit facility for her mother. She has called [facility] and they may come eval tomorrow for placement. She also had called [facility] and no beds. discussed [facility] as a choice and Chalet at the [employer] in [place] as her suggestions. Discussed [facility] as well. she is agreeable to send referrals to all places. She states she works 2 jobs to pay for care for her mother and mother has $40,000 in bank and a home to be sold to pay for care. She dis verify insurance, PCP and DME. [place] [facility] to room and patient only oriented o self. Will wait responses from facilities. Normal [facility] Comment on above: Result Comment: Elec tronically [...] dizziness UA negative Seroquel at night Ordered: [facility] Care/Day Moderate 35 Minutes [address] 2. History of CVA in adulthood (Z86.73: [...] of name and that she lives in [facility]: cooperative, affect appropriate for age, pleasant [...] 04:55:00) Lymph Auto: 46.5 % (08/28/23 04:55:00) Marshall Auto: 10.5 % (08/28/23 04:55:00) Eos Auto: 7.8 % (08/28/23 04:55:00) Basophil Auto: 1 % (08/28/23 04:55:00) Neutro Absolute: 1.8 E9/L Low (08/28/23 04:55:00) Lymph Absolute: 2.4 E9/L (08/28/23 04:55:00) Marshall Absolute: 0.6 E9/L (08/28/23 04:55:00) Eos Absolute: [...] A/G R (more content not included)... Normal [facility] Comment on above: Result Comment: Elec tronically Signed By: Barrie Rodriguez DO\.br\Date and Time Signed: 08/28/23 09:52 EST Sed Rate Automatedon 024 ESR (Bld) [Velocity] 45 mm/h High 0-34 [facility] Comment on above: Performed By: #### 1 1497701, 4264200, 9557253, 0901973, 63856520 #### [facility] [address] [place] [address] Troponin 6 Hr.on 08-28-2023 Troponin 14.20 pg/mL Normal 10.10-27.10 [facility] Comment on above: Result Comment: The 95% CI (Confidence Interval) PPV (Positive Predictive Value) for myocardial infarction in females is 38 pg/mL, in males 51 pg/mL. The results should be used in conjunction with clinical conditions of myocardial infarction. (Access High Sensitivity Troponin I Instructions For Use, Anali Alcoa, March 2018) Performed By: #### 1 [id number] #### [facility] [address] [place] [address] Troponin 9 Hr.on 08-28-2023 Troponin 11.60 pg/mL Normal 10.10-27.10 [facility] Comment on above: Result Comment: The 95% CI (Confidence Interval) PPV (Positive Predictive Value) for myocardial infarction in females is 38 pg/mL, in males 51 pg/mL. The results should be used in conjunction with clinical conditions of myocardial infarction. (Access High Sensitivity Troponin I Instructions For Use, Anali Alcoa, March 2018) Performed By: #### 1 9317096, 6814258, 8731565, 1990609, 40101950 #### [facility] [address] [place] [address] XR Chest Single Viewon 08-28 XR Chest [...] mGy = n/a DAP = n/a Normal [facility] eGFRon 08-28-2023 eGFR 90 mL/min/1.73 m2 Normal >=59 [facility] Comment on above: Order Comment: Order Added by Discern Expert. Performed By: #### 1 2576640, 4828701, 2453512, 9087717, 40661931 #### [facility] [address] [place] [address] BMPon 08-27-2023 Anion gap [Moles/Vol] 8 mmol/L Normal 6-16 [facility] Comment on above: Performed By: #### 1 8695758, 7587312, 2420565, 3815511, 89126210 #### [facility] [address] [place] [address] BUN/Creat Ratio 16 No Units Normal 10-20 [facility] Comment on above: Performed By: #### 1 2413617, 8260320, 9973999, 2933407, 80262602 #### [facility] [address] [place] [address] Calcium [Mass/Vol] 8.6 mg/dL Low 8.9-11.1 [facility] Comment on above: Performed By: #### 1 7186830, 7926426, 1271579, 9806419, 59927723 #### [facility] [address] [place] [address] Chloride [Moles/Vol] 102 mmol/L Normal 101-111 [facility] Comment on above: Performed By: #### 1 4080958, 3386007, 6873196, 6159833, 75302937 #### [facility] [address] [place] [address] CO2 [Moles/Vol] 29 mmol/L Normal 21-31 [facility] Comment on above: Performed By: #### 1 7435001, 8955729, 2315862, 6378749, 91610649 #### [facility] [address] [place] [address] Creatinine [Mass/Vol] 0.8 mg/dL Normal 0.5-1.3 [facility] Comment on above: Performed By: #### 1 9688369, 9444979, 3747891, 7780006, 33448847 #### [facility] [address] [place] [address] Glucose [Mass/Vol] 89 mg/dL Normal 55-199 [facility] Comment on above: Performed By: #### 1 0879213, 1282617, 2396837, 5707100, 61837850 #### [facility] [address] [place] [address] Potassium [Moles/Vol] 3.9 mmol/L Normal 3.5-5.3 [facility] Comment on above: Performed By: #### 1 9542375, 6093798, 4593461, 5757477, 38840918 #### [facility] [address] [place] [address] Sodium [Moles/Vol] 135 mmol/L Normal 135-145 [facility] Comment on above: Performed By: #### 1 9522737, 5348904, 4258490, 0861411, 06551834 #### [facility] [address] [place] [address] Urea nitrogen [Mass/Vol] 13 mg/dL Normal 5-21 [facility] Comment on above: Performed By: #### 1 8049764, 6252361, 2348774, 1878156, 34097295 #### [facility] [address] [place] [address] CBC w/ Auto Diffon 4 Basophil Absolute 0.1 E9/L Normal 0.0-0.2 [facility] Comment on above: Performed By: #### 1 0885644, 9387955, 1373760, 3387035, 32721595 #### [facility] [address] [place] [address] Basophils/100 WBC (Bld) 1.0 % Normal 0.0-2.0 F [facility] Comment on above: Performed By: #### 1 8477225, 0810835, 6742596, 4448152, 47048608 #### [facility] [address] [place] [address] Eos Absolute 0.3 E9/L Normal 0.0-0.5 [facility] Comment on above: Performed By: #### 1 4672480, 6261973, 4208676, 7996509, 80503948 #### [facility] [address] [place] [address] Eosinophils/100 WBC (Bld) 5.2 % Normal 0.0-8.0 [facility] Comment on above: Performed By: #### 1 6448564, 6323880, 1227090, 5458333, 60932585 #### [facility] [address] [place] [address] Erythrocyte distribution width (RBC) [Ratio] 13.7 % Normal 10.9-14.2 [facility] Comment on above: Performed By: #### 1 8127408, 6160382, 0633251, 7125287, 85953237 #### [facility] [address] [place] [address] Hematocrit (Bld) [Volume fraction] 38.0 % Normal 34.0-46.0 [facility] Comment on above: Performed By: #### 1 4041178, 7181500, 4252503, 0181682, 36952958 #### [facility] [address] [place] [address] Hemoglobin (Bld) [Mass/Vol] 12.6 g/dL Normal 12.0-16.0 [facility] Comment on above: Performed By: #### 1 6904719, 1824388, 9790726, 8227133, 20816222 #### [facility] [address] [place] [address] Lymph Absolute 2.8 E9/L Normal 1.0-4.0 [facility] Comment on above: Performed By: #### 1 6334190, 5947060, 2202185, 0129541, 02211453 #### [facility] [address] [place] [address] Lymphocytes/100 WBC (Bld) 45.7 % Normal 14.0-50.0 [facility] Comment on above: Performed By: #### 1 1143732, 1828280, 7911611, 3003143, 69237659 #### [facility] [address] [place] [address] MCH (RBC) [Entitic mass] 33.0 pg Normal 27.0-34.0 [facility] Comment on above: Performed By: #### 1 0239069, 7865025, 1065099, 9127359, 69306735 #### [facility] [address] [place] [address] MCHC (RBC) [Mass/Vol] 33.5 g/dL Normal 31.4-36.0 [facility] Comment on above: Performed By: #### 1 8068314, 6762115, 6822683, 3946798, 58999276 #### [facility] [address] [place] [address] MCV (RBC) [Entitic vol] 98.4 fL Normal 80.0-100.0 F [facility] Comment on above: Performed By: #### 1 4913570, 3361414, 7547539, 5749919, 92724731 #### [facility] [address] [place] [address] Marshall Absolute 0.6 E9/L Normal 0.2-1.0 [facility] Comment on above: Performed By: #### 1 6726874, 3053733, 1059303, 5477111, 94363626 #### [facility] [address] [place] [address] Monocytes/100 WBC (Bld) 10.5 % Normal 4.0-14.0 [facility] Comment on above: Performed By: #### 1 6668813, 1229508, 7872679, 3646562, 65811990 #### [facility] [address] [place] [address] Neutro Absolute 2.3 E9/L Normal 2.0-7.5 [facility] Comment on above: Performed By: #### 1 5359501, 5997526, 7326189, 5229273, 04985395 #### [facility] [address] [place] [address] Neutro Auto 37.6 % Normal 36.0-75.0 [facility] Comment on above: Performed By: #### 1 2521794, 0653599, 8590581, 7714153, 53466836 #### [facility] [address] [place] [address] Platelet 176.0 E9/L Normal 150.0-500.0 [facility] Comment on above: Performed By: #### 1 1146828, 6538988, 0187120, 5666446, 15790070 #### [facility] [address] [place], [place] [address] Platelet mean volume (Bld) [Entitic vol] 7.6 fL Normal 6.4-10.8 [facility] Comment on above: Performed By: #### 1 9725874, 5322721, 3750600, 5895767, 14971820 #### [facility] [address] [place], [place] [address] RBC 3.8 E12/L Low 4.3-5.9 [facility] Comment on above: Performed By: #### 1 0451151, 0866688, 0261050, 4246691, 90159871 #### [facility] [address] [place] [address] WBC 6.1 E9/L Normal 4.0-11.0 [facility] Comment on above: Performed By: #### 1 6970133, 5373374, 8761309, 9573525, 17468444 #### [facility] [address] [place], [place] [address] Consent for Treatmenton 08-09 Consent for Treatment [id number] Normal [facility] ED Clinical Summaryon 2023 ED Clinical Summary [address] [address] ED Clinical Summary Person Information Name: CARIDAD CARIAS [place] Age: 83 Years : 1940 Sex: Female Language: Citizen Of [place] PCP: EDMOND PACHECO DO Marital Status: Phone: [phone] Visit Id: Visit Reason: Altered mental status; AMS Speciality: Acuity: 3 Enc Type: Observation Med Service: Emergency Arrival: 08/27/2023 18:31:49 Discharge: LOS: 000 03:43 Checkin: 08/27/2023 18:31:49 Checkout: 08/27/2023 22:14:01 Dispo Type: Admitted as IP to this [facility] EVENTS: Event Name Event Status [...] 21:46:02 Patient Care Request 08/27/2023 21:46:02 ADDRESS: [address] [place] [id number] PHYS DOC NOTES: MEDICAL INFORMATION: Prescriptions Given: [...] Follow up: DIAGNOSIS: Altered mental status Normal [facility] ED Note-Nursingon 08-27-2023 ED Note-Nursing Pt's BP in 200's systolic. Physician aware. will continue to monitor. no new meds ordered at this time. Normal [facility] ED Note-Physicianon 08-27-19 ED Note-Physician Basic Information Time Seen: Vicente Rausch DO Jag[place] 08/27/2023 18:53 Chief Complaint dtr. brought pt. from [facility] d/t AMS x 1 week. hx dementia. [...] and Complexity of Problems Differential Diagnosis: [] [facility] Data External documents reviewed: [] My EKG [...] 81 mg= (more content not included)... Normal [facility] Comment on above: Result Comment: Elec tronically Signed By: Vicente Rausch DO\.br\Date and Time Signed: 08/27/23 21:18 EST ED Patient Education Noteon 08-27-2023 ED Patient Education Note Normal [facility] ED Patient Summaryon 024 ED Patient Summary [place] [id number] Patient Discharge Instructions Person Information Name: CARIDAD CARIAS I Age: 83 Years Arrival Date: 08/27/2023 18:31:49 Discharge Diagnosis: Altered mental status Primary Care Physician: EDMOND PACHECO DO Provider Information Primary Provider: Vicente Rausch DO Advanced Registration Clerk:None The exam and treatment you received in the Emergency Department were for an urgent problem and are not intended as complete care. It is important that you follow up with a doctor, nurse practitioner, or physician?s assistant [employer] content [employer] delivery for ongoing care. If your symptoms become worse or you do not improve as expected and you are unable to reach your usual health care provider, you should return to the Emergency Department. We are available 24 hours a day. CARIDAD CARIAS I has been given the following list [...] opioids can be used to help relieve [id number] pain and are often prescribed following a [...] be struggling with addiction, tell your health pharmacy customer care specialist and ask for guidance or call [facility] National Helpline at 8-577-769-EULC. b Source: [place] Department of Health and Human Services/Center for Disease Control & Prevention [facility] Medications Given: Medication Dose Route busPIR (more content not included)... Normal [facility] Hep Func Panelon 08-27-2023 Albumin [Mass/Vol] 3.2 g/dL Low 3.3-5.0 [facility] Comment on above: Performed By: #### 1 2390080, 4407365, 9103735, 5301803, 79346132 #### [facility] [address] [place] [address] Albumin/Globulin [Mass ratio] 0.8 {ratio} Low 1.1-2.2 [facility] Comment on above: Performed By: #### 1 [id number], 1211547, 3079767, 5738173, 77262194 #### [facility] [address] [place] [address] Alk Phos 86 Int._Unit/L Normal 21-98 [facility] Comment on above: Performed By: #### 1 6944571, 4583611, 8241433, 2414200, 81611297 #### [facility] [address] [place] [address] ALT 26 Int._Unit/L Normal 6-46 [facility] Comment on above: Performed By: #### 1 4009444, 0420204, 3641926, 0493103, 88735095 #### [facility] [address] [place] [address] AST 41 Int._Unit/L Normal 5-43 [facility] Comment on above: Performed By: #### 1 4321830, 0066537, 8546518, 0680294, 84471462 #### [facility] [address] [place] [address] Bili Direct 0.2 mg/dL Normal 0.0-0.4 [facility] Comment on above: Performed By: #### 1 0786511, 3673422, 1542648, 5713019, 30851650 #### [facility] [address] [place] [address] Bili Indirect 0.5 mg/dL Normal 0.1-0.9 [facility] Comment on above: Performed By: #### 1 2385876, 2614429, 6101310, 5393009, 99042273 #### [facility] [address] [place] [address] Bili Total 0.7 mg/dL Normal 0.0-1.1 [facility] Comment on above: Performed By: #### 1 2763069, 7890192, 7566834, 7135714, 17137596 #### [facility] [address] [place] [address] Globulin (S) [Mass/Vol] 4.1 g/dL High 1.4-4.0 F [facility] Comment on above: Performed By: #### 1 8552416, 3327961, 0265992, 3272551, 29712738 #### [facility] [address] [place] [address] Protein [Mass/Vol] 7.3 g/dL Normal 6.0-7.8 [facility] Comment on above: Performed By: #### 1 3121521, 6442121, 9569381, 7993777, 80603757 #### [facility] [address] [place] [address] Monitor Recordon 08-27-2023 Monitor Record [id number]. 00TIFF Normal [facility] PT & PTTon 08-27-2023 aPTT Coag (PPP) [Time] 33.1 second(s) Normal 25.1-36.5 [facility] Comment on above: Result Comment: Para meter 15 days - 4 weeks 1 - 5 months 6 - 11 months 1 - 5 years 6 - 10 years 11 - 17 years PTT Mean: 35.4 (27.6-45.6) Mean: 33.5 (24.8-40.7) Mean: 32.4 (25.1-40.7) Mean: 31.6 (24.0-39.2) Mean: 31.6 (26.9-38.7) Mean: 31.0 (24.6-38.4) Pediatric Reference ranges were obtained from a study by Reese Leiva et al. prepared from 1437 samples obtained at 7 different centers using the same coagulation reagent and instrumentation as [facility]. Currently there are no coagulation studies available worldwide for children to 14 days, and no normal ranges. Heparin therapeutic range (represented by Anti-Factor Xa activity of 0.2 - 0.4 U/mL) corresponds to PTT of 56.6 - 109.0 sec. Performed By: #### 1 2077336, 4617933, 4561128, 6623388, 26163977 #### [facility] [address] [place] [address] INR Coag (PPP) [Relative time] 1.1 {INR} Invalid Interpretation Code [facility] Comment on above: Result Comment: INR results are specifically intended to assess patients stabilized on long-term Anticoagulation therapy suggested INR?s ?Less Intensive Anticoagulation? 2.0 ? 3.0 Conventional Range 3.0 ? 4.5 Performed By: #### 1 8320395, 3717573, 9216268, 8396094, 78626297 #### [facility] [address] [place] [address] PT Coag (PPP) [Time] 12.0 second(s) Normal 9.4-12.5 [facility] Comment on above: Result Comment: 15 d [...] ranges were obtained from a study by bon Clayton al. prepared from 1437 samples obtained at 7 different centers using the same coagulation reagent and instrumentation as [facility]. Currently there are no coagulation studies available worldwide for children to 14 days, and no normal ranges. Performed By: #### 1 0264422, 9373118, 3470698, 0594378, 06107670 #### [facility] [address] [place] [address] TSH With T4fr Reflexon 08-27 TSH Qn 1.53 m[IU]/L Normal 0.34-5.60 [facility] Comment on above: Performed By: #### 1 0026153, 0126905, 1932757, 6636855, 56670072 #### [facility] [address] [place] [address] Troponin 0 Hr.on 08-27-2023 Troponin 13.60 pg/mL Normal 10.10-27.10 [facility] Comment on above: Result Comment: The 95% CI (Confidence Interval) PPV (Positive Predictive Value) for myocardial infarction in females is 38 pg/mL, in males 51 pg/mL. The results should be used in conjunction with clinical conditions of myocardial infarction. (Access High Sensitivity Troponin I Instructions For Use, [employer], March 2018) Performed By: #### 1 [id number], 6031980, 5673115, 3184824, 76823921 #### [facility] [address] [place] [address] Troponin 3 Hr.on 08-27-2023 Troponin 15.40 pg/mL Normal 10.10-27.10 [facility] Comment on above: Result Comment: The 95% CI (Confidence Interval) PPV (Positive Predictive Value) for myocardial infarction in females is 38 pg/mL, in males 51 pg/mL. The results should be used in conjunction with clinical conditions of myocardial infarction. (Angelfish High Sensitivity Troponin I Instructions For Use, [employer], March 2018) Performed By: #### 1 5071039, 5546773, 6028880, 1378894, 22377894 #### [facility] [address] [place] [address] UA With Cult Reflexon 2023 Bilirubin Ql (U) Negative Normal Negative [facility] Comment on above: Performed By: #### 1 3338230, 1184214, 0181210, 3009371, 57967591 #### [facility] [address] [place] [address] Clarity (U) CLEAR Normal Clear [facility] Comment on above: Performed By: #### 1 8615601, 1689539, 0191674, 0656175, 06212950 #### [facility] [address] [place] [address] Color (U) YELLOW Normal Yellow [facility] Comment on above: Performed By: #### 1 1160587, 6392071, 7350238, 1619384, 93826113 #### [facility] [address] [place] [address] Epithelial cells.squamous LM.HPF (Urine sed) [#/Area] 0-2 Normal 0-2 [facility] Comment on above: Performed By: #### 1 1118305, 9429048, 7031154, 2542990, 81244525 #### [facility] [address] [place] [address] Glucose Test strip (U) [Mass/Vol] Negative Normal Negative [facility] Comment on above: Performed By: #### 1 5371603, 4238984, 9749463, 3091145, 58779618 #### [facility] [address] [place] [address] Hemoglobin Ql (U) Negative Normal Negative [facility] Comment on above: Performed By: #### 1 8135237, 1787110, 5438704, 5313349, 42174352 #### [facility] [address] [place] [address] Ketones (U) [Mass/Vol] Negative Normal Negative [facility] Comment on above: Performed By: #### 1 9271755, 7873733, 3444474, 2927780, 69124484 #### [facility] [address] [place] [address] Speedway.plasma/Speedway. RBC (Bld) [Mass ratio] 0-3 Normal 0-3 [facility] Comment on above: Performed By: #### 1 7953333, 5234956, 3022953, 0072085, 78362141 #### [facility] [address] [place] [address] Nitrite Ql (U) Negative Normal Negative [facility] Comment on above: Performed By: #### 1 0664984, 4683465, 6852892, 6712369, 58255951 #### [facility] [address] [place] [address] pH (U) 6.5 [pH] Invalid Interpretation Code 5.0-9.0 [facility] Comment on above: Performed By: #### 1 0286770, 8700650, 7742073, 9730947, 72308509 #### [facility] [address] [place] [address] Protein (U) [Mass/Vol] Negative Normal Negative [facility] Comment on above: Performed By: #### 1 5480475, 0718625, 7064326, 5675507, 56678017 #### [facility] [address] [address] Specific gravity (U) [Rel density] 1.010 Invalid Interpretation Code 1.005-1.030 [facility] Comment on above: Performed By: #### 1 5159491, 0227872, 4658101, 1661960, 96721291 #### [facility] [address] [id number] Type of Urine collection method Clean Catch Normal [facility] Comment on above: Performed By: #### 1 5081936, 4940587, 5328632, 5295954, 65935175 #### [facility] [address] [place], [place] [address] Urobilinogen Qn (U) 0.2 {Cuba'U}/dL Normal 0.0-1.0 [facility] Comment on above: Performed By: #### 1 4216404, 5993758, 4171611, 3251759, 23368798 #### [facility] [address] [place] [address] WBC Auto Ql (U) Negative Normal Negative [facility] Comment on above: Performed By: #### 1 3151860, 7983978, 3295854, 4747706, 52274784 #### [facility] [address] [place], [place] [address] WBC LM.HPF (Urine sed) [#/Area] 0-5 Normal 0-5 [facility] Comment on above: Performed By: #### 1 0078740, 7533179, 8533054, 9621659, 16264007 #### [facility] [address] [place] [address] eGFRon 08-27-2023 eGFR 74 mL/min/1.73 m2 Normal >=59 [facility] Comment on above: Order Comment: Order added by Discern Expert. Performed By: #### 1 5467456, 1681913, 8621165, 4585176, 50419535 #### [facility] [address] [place] [address] Skilled Nursing Recordson 07-26 Skilled Nursing Records [id number]. 00TIFF Normal [facility] Medicine Office/Clini c Noteon 07-21-2023 Family Medicine Office/Clinic Note History of Present Illness TCU DISCHARGE after TCU ADMISSION Inpatient [facility] 07/10?6, 1 day history AMS [...] therapy stay. Plan to discharge 07/22/2023 to [facility]. PMHx- dementia, OA, anxiety depression, DM (?) no meds, A1c 5.3, NAWAF untreated,psoriatic arthritis on Remicade. Nonsustained VT on Holter Dec, 2021, nl micah. Hx alcohol abuse. nonsmoker. Hx lumbr surgeries, toe surgeries PCP Dr. Edmond Pacheco Psychiatry Dr. Faustin Neurologist LAUREN Rheumatology Dr. 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 Normal [facility] Comment on above: Result Comment: Elec tronically Signed By: Cyndi HOBSON, Chaparro Soler\.br\Date and Time Signed: 07/21/23 10:03 EST UA With Cult Reflexon 2022 Bacteria LM Ql (Urine sed) TRACE Normal Trace [facility] Comment on above: Performed By: #### 1 3884814, 1086072, 2465932, 8022119, 15067301 #### [facility] [address] [place] [address] Bilirubin Ql (U) Negative Normal Negative [facility] Comment on above: Performed By: #### 1 6899764, 5821288, 1406954, 3174643, 63636294 #### [facility] [address] [place] [address] Clarity (U) CLEAR Normal Clear [facility] Comment on above: Performed By: #### 1 6706553, 3428909, 2915487, 6409614, 23602578 #### [facility] [address] [place] [address] Color (U) YELLOW Normal Yellow [facility] Comment on above: Performed By: #### 1 0173237, 0242408, 8124837, 1464131, 90856053 #### [facility] [address] [place] [address] Epithelial cells.squamous LM.HPF (Urine sed) [#/Area] 0-2 Normal 0-2 [facility] Comment on above: Performed By: #### 1 2733198, 0422519, 9656215, 6731499, 15113233 #### [facility] [address] [place] [address] Glucose Test strip (U) [Mass/Vol] Negative Normal Negative [facility] Comment on above: Performed By: #### 1 1172634, 1445840, 5829221, 9143107, 43955947 #### [facility] [address] [place] [address] Hemoglobin Ql (U) Negative Normal Negative [facility] Comment on above: Performed By: #### 1 5679249, 3522825, 2481083, 1814413, 27088897 #### [facility] [address] [place] [address] Ketones (U) [Mass/Vol] Negative Normal Negative [facility] Comment on above: Performed By: #### 1 0924463, 1178497, 2396641, 5935606, 60607447 #### [facility] [address] [place] [address] Speedway.plasma/Speedway. RBC (Bld) [Mass ratio] 0-3 Normal 0-3 [facility] Comment on above: Performed By: #### 1 6870309, 4680418, 0989891, 6459943, 25809487 #### [facility] [address] [place] [address] Nitrite Ql (U) Negative Normal Negative [facility] Comment on above: Performed By: #### 1 1271420, 2581488, 4587367, 9384211, 92422233 #### [facility] [address] [place] [address] pH (U) 6.0 [pH] Invalid Interpretation Code 5.0-9.0 [facility] Comment on above: Performed By: #### 1 8035378, 2856700, 3460468, 1433079, 20141606 #### [facility] [address] [place] [address] Protein (U) [Mass/Vol] Negative Normal Negative [facility] Comment on above: Performed By: #### 1 2516118, 0504947, 6616682, 0754806, 63227626 #### [facility] [address] [place] [address] Specific gravity (U) [Rel density] 1.020 Invalid Interpretation Code 1.005-1.030 [facility] Comment on above: Performed By: #### 1 5939166, 0770534, 8071817, 7806705, 67855319 #### [facility] [address] [place] [address] Type of Urine collection method Clean Catch Normal [facility] Comment on above: Performed By: #### 1 0885403, 6383197, 6884893, 2711652, 08618860 #### [facility] [address] [place], [place] [address] Urobilinogen Qn (U) 0.2 {Cuba'U}/dL Normal 0.0-1.0 [facility] Comment on above: Performed By: #### 1 8894118, 4105316, 9560076, 4594328, 99108503 #### [facility] [address] [place] [address] WBC Auto Ql (U) Negative Normal Negative [facility] Comment on above: Performed By: #### 1 2422127, 8372558, 7420168, 3498362, 08686870 #### [facility] [address] [place] [address] WBC LM.HPF (Urine sed) [#/Area] 0-5 Normal 0-5 [facility] Comment on above: Performed By: #### 1 3899660, 6144315, 3965024, 6702434, 11153704 #### [facility] [address] [place] [address] URINALYSISOrdered By: Lizet Saab on 07-19-2023 Bacteria [...] AM) Normal Negative [facility] UA Auto SS Speedway.plasma/Speedway. RBC (Bld) [Mass ratio] 0-3 /HPF Normal [...] Desc Clean Catch (07/19/23 8:33 AM) Normal [facility] UA Auto SS Urobilinogen Qn (U) 0.5567042 {Cuba'U}/dL Normal 0.0 - 1.0 EU/dL [facility] UA Auto SS WBC Auto Ql (U) Negative (07/19/23 8:33 AM) Normal Negative [facility] UA Auto SS WBC LM.HPF (Urine sed) [#/Area] 0-5 /HPF Normal 0-5/HPF [facility] UA Auto SS Family Medicine Office/Clini c Noteon 07-15-2023 Family Medicine Office/Clinic Note History of Present Illness TCU ADMIT from [facility] 07/10?6 1 day history AMS on dementia. MRI brain no acute findings, started Seroquel to help sleep-wake cycle . Seen by neurology, history progressive dementia. Recent neuropsychological eval a month ago showing progression from mild to moderate dementia. Past and current hx of hallucinations that begin as seeing patterns on lyel. MRI no acute changes, chronic small vessel [...] LAUREN Rheumatology Dr. 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 oriented to name. Place is hospital after thinking about it, season ?, Holiday [place]. Month- long pause, July with cueing. Year [...] seroquel qHS to manage symptoms, if is Ludivina Body watch for worsening ST rehab stay [...] Beer, Daily, 0 (more content not included)... [facility] Comment on above: Result Comment: Elec tronically Signed By: PASCALE RODRIGUEZ, Inderjit\.br\Date and Time Signed: 07/15/23 10:14 EST Discharge Instructionson Discharge Instructions [id number]. 00TIFF [facility] Insurance Correspondence Off iceon 07-14-2023 Insurance Correspondence Office [id number]. 00TIFF [facility] Medication Listson 3 Medication Lists [id number]. 00TIFF [facility] Transfer Documentson 023 Transfer Documents [id number]. 00TIFF [facility] BMPon 07-13-2023 Anion gap [Moles/Vol] 5 mmol/L Low 6-16 [facility] Comment on above: Performed By: #### 2 752715, 46574581 ####[facility] [address] [place] [address] Calcium [Mass/Vol] 8.6 mg/dL Low 8.9-11.1 [facility] Comment on above: Performed By: #### 2 482579, 08905726 ####[facility] [address] [place] [address] Chloride [Moles/Vol] 105 mmol/L Normal 101-111 [facility] Comment on above: Performed By: #### 2 518307, 47966733 ####[facility] [address] [place] [address] CO2 [Moles/Vol] 29 mmol/L Normal 21-31 [facility] Comment on above: Performed By: #### 2 905507, 85792164 ####[facility] [address] [place] [address] Creatinine [Mass/Vol] 0.6 mg/dL Normal 0.5-1.3 [facility] Comment on above: Performed By: #### 2 927930, 27639346 ####[facility] [address] [place] [address] Glucose [Mass/Vol] 98 mg/dL Normal 55-199 [facility] Comment on above: Result Comment: If t his glucose result represents a fasting glucose, interpretation should refer to the following reference range: 55-99 mg/dL Performed By: #### 2 026488, 08299038 ####[facility] [address] [place] [address] Potassium [Moles/Vol] 4.0 mmol/L Normal 3.5-5.3 [facility] Comment on above: Performed By: #### 2 285397, 16598419 ####[facility] [address] [place] [address] Sodium [Moles/Vol] 135 mmol/L Normal 135-145 [facility] Comment on above: Performed By: #### 2 415724, 32959848 ####[facility] [address] [place] [address] Urea nitrogen [Mass/Vol] 16 mg/dL Normal 5-21 [facility] Comment on above: Performed By: #### 2 715344, 31330015 ####[facility] [address] [place] [address] Urea nitrogen/Creatinine [Mass ratio] 27 No Units High 10- [facility] Comment on above: Performed By: #### 2 764328, 42398142 ####[facility] [address] [place] [address] CHEMISTRYOrdered By: SYSTEM SYSTEM on 07-13-2023 Anion gap [Moles/Vol] 5 mmol/L Low 6 - 16 mEq/L [facility] Remisol Calcium [Mass/Vol] 8.6 mg/dL Low 8.9 - 11. 1 mg/dL [facility] Chloride [Moles/Vol] 105 mmol/L Normal 101 - 1 11 mmol/L [facility] CO2 [Moles/Vol] 29 mmol/L Normal 21 - 31 mmol/L [facility] Remisol Creatinine [Mass/Vol] 0.6 mg/dL Normal 0.5 - 1.3 mg/dL [facility] Remisol GFR/1.73 sq M.predicted among non-blacks MDRD (S/P/Bld) [Vol rate/Area] 91 mL/min/1.73 m2 Normal >=59mL/min/ 1.73 m2 [facility] Chem S Comment on above: Interpretive Data: C hronic kidney disease could be indicated at eGFR's of less than 60 mL/min/1.73m2. Kidney failure is indicated at less than 15 mL/min/1.73m2. Glucose [Mass/Vol] 98 mg/dL Normal 55 - 199 mg/dL [facility] Remisol Comment on above: Interpretive Data: I f this glucose result represents a fasting glucose, interpretation should refer to the following reference range: 55-99 mg/dL Potassium [Moles/Vol] 4.0 mmol/L Normal 3.5 - 5.3 mmol/L [facility] Sodium [Moles/Vol] 135 mmol/L Normal 135 - 145 mmol/L [facility] Urea nitrogen [Mass/Vol] 16 mg/dL Normal 5 - 21 mg/dL [facility] Remisol Urea nitrogen/Creatinine [Mass ratio] 27 mg/mg High 10 - 20 [facility] Remisol Discharge Note-Nursingon Discharge Note-Nursing CARIDAD CARIAS I :1940 Visit Date:07/10/2023 Inpatient Discharge Instructions [...] Pending Diagnostic Test Results None Pharmacy Information [facility] Discharge Instructions Manage sleep wake cycle disturbance with Seroquel at bedtime. Follow-up with neurology and your family doctor as listed as follow-up. Maintain adequate oral hydration. Previously Scheduled Follow-Up Appointments Tuesday 10:00 AM EST Where: [facility] New Follow Up Appointments after Discharge Follow Up with EDMOND PACHECO DO When: Within 2 weeks Comments: Call for followup appointment Where: [address] [place] [address] Follow Up with Andres RODRIGUEZ, LEATHA Zaman When: Within 2 to 4 weeks [facility] [email or web address] [address]- Medications What How Much When Instructions Next [...] By Mouth Once a day (at bedtime) 126 @ 9 PM Unchanged multivitamin (Multiple Vitamins Tab) 1 Tablets By Mouth Every day 127 @ 9 AM Unchanged omeprazole (omeprazole 20 mg Cap-DR) 1 Capsules By Mouth Once a day (in the morning) 127 @ 9 AM Unchanged tizanidine (tiZANidine 4 [...] (magnesium oxi (more content not included)... Normal [facility] Inpatient Clinical Summaryon 07-13-2023 Inpatient Clinical Summary [address] [address] Clinical Summary Person Information: Name: CARIDAD CARIAS I Age: 82 Years : 1940 Sex: Female PCP: EDMOND PACHECO DO Marital Status: Phone: [phone] Race: White Ethnicity: Non- or Language: Citizen Of [place] Visit Id: Visit Reason: Altered mental status; ALTERED MENTAL STATUS - VERY CONFUSED - FRONTAL HEADACHE Speciality: Acuity: Enc Type: Observation Med Service: Medical Arrival: 07/10/2023 16:39:36 Discharge: Dispo Type: Admitted as IP to this Hosp Address: [id number] [place] [id number] Provider Notes: Diagnosis: 1:Acute encephalopathy; 2:History of [...] up: With: Address: When: EDMOND PACHECO DO [address] [place] [id number] Within 2 weeks Comments: Call for followup appointment With: Address: When: Austyn Campos MD, [facility] [address] [place] [address] Within 2 to 4 weeks Type Location Start Finish State Secured Appointment Type Secured Location 07/15/2023 10:00 AM 07/15/2023 10:45 AM Confirmed Patient Education Information: Sleep Apnea, Kccb-my-Pnmf; Hyponatremia, Eikz-xx-Kbvf Normal [facility] Inpatient Patient Summaryon 07-13-2023 Inpatient Patient Summary [address] [address] Patient Discharge Instructions PERSON INFORMATION Name: CARIDAD CARIAS I Date of : 1940 Current Date: [...] Depression, unspecified Condition at Discharge: Stable CARIDAD CARIAS I has been given the following list [...] up: With: Address: When: EDMOND PACHECO DO [address] [place] [address] Within 2 weeks Comments: Call for followup appointment With: Address: When: Andres RODRIGUEZ, LEATHA ZamanPhoenix [email or web address] [place] Dominique [phone] Within 2 to 4 weeks In the [...] LIST OF Y (more content not included)... [facility] Interdisciplinary Note - Adalberto e Manageron 07-13-2023 Interdisciplinary Note - Bakery Deliverer Pt is awake and alert in bed, previously rounded with Rimma . Aware of TCU acceptance and precert obtained and plan to DC to TCU today, family present. Declines any further concerns or needs. . PCP verified and insurance information reviewed and DME discussed. Contact information provided and white board updated. [facility] Comment on above: Result Comment: Elec tronically Signed By: Jeovanny CROWLEY, Shanae\.anusha\Date and Time Signed: 07/13/23 12:59 EST Progress [...] Remote history of lower back surgery at [facility]. Patient is on Zanaflex we will continue [...] 06:44:00) Ramon (more content not included)... Normal [facility] Comment on above: Result Comment: Elec tronically Signed By: Rimma Paez\.br\Date and Time Signed: 07/12/23 23:36 EST\.br\Electronically Co-Signed By: Valente SALEEM MD\.br\Date and Time Co-Signed: 07/13/23 07:19 EST eGFRon 07-13-2023 GFR/1.73 sq M.predicted among non-blacks MDRD (S/P/Bld) [Vol rate/Area] 91 mL/min/1.73 m2 Normal >=59 [facility] Comment on above: Order Comment: Order added by Discern Expert. Result Comment: Sorter Lumber Straightener adelso kidney disease could be indicated at eGFR's of less than 60 mL/min/1.73m2. Kidney failure is indicated at less than 15 mL/min/1.73m2. Performed By: #### 2 [id number], [id number] ####[facility] [address] [place] [address] Ammoniaon 07-12-2023 Ammonia (P) [Moles/Vol] 24 mcmol Normal 11-35 F [facility] Comment on above: Performed By: #### 2 306474, 8312069, [id number] ####[facility] [address] [place] [address] BMPon 07-12-2023 Anion gap [Moles/Vol] 10 mmol/L Normal 6-16 Fis [facility] Comment on above: Performed By: #### 2 293928, 4213075, [id number] #### [facility] [address] [place] [address] Calcium [Mass/Vol] 8.8 mg/dL Low 8.9-11.1 [facility] Comment on above: Performed By: #### 2 783437, 2800480, 43484087 #### [facility] [address] [place] [address] Chloride [Moles/Vol] 105 mmol/L Normal 101-111 [facility] Comment on above: Performed By: #### 2 881580, 1414542, 42473898 #### [facility] [address] [place] [address] CO2 [Moles/Vol] 27 mmol/L Normal 21-31 [facility] Comment on above: Performed By: #### 2 604545, 9834427, 06492628 #### [facility] [address] [place] [address] Creatinine [Mass/Vol] 0.6 mg/dL Normal 0.5-1.3 [facility] Comment on above: Performed By: #### 2 504936, 0614433, 11992686 #### [facility] [address] [place] [address] Glucose [Mass/Vol] 101 mg/dL Normal 55-199 [facility] Comment on above: Result Comment: If t his glucose result represents a fasting glucose, interpretation should refer to the following reference range: 55-99 mg/dL Performed By: #### 2 346918, 0814822, 30108179 #### [facility] [address] [place] [address] Potassium [Moles/Vol] 3.5 mmol/L Normal 3.5-5.3 [facility] Comment on above: Performed By: #### 2 000301, 7285439, 20316764 #### [facility] [address] [place] [address] Sodium [Moles/Vol] 138 mmol/L Normal 135-145 [facility] Comment on above: Performed By: #### 2 674529, 1274472, 43016324 #### [facility] [address] [place] [address] Urea nitrogen [Mass/Vol] 15 mg/dL Normal 5-21 [facility] Comment on above: Performed By: #### 2 869871, 9501840, 39858188 #### [facility] [address] [place] [address] Urea nitrogen/Creatinine [Mass ratio] 25 No Units High 10-20 [facility] Comment on above: Performed By: #### 2 127341, 1061003, 69785170 #### [facility] [address] [place] [address] CHEMISTRYOrdered By: SYSTEM SYSTEM on 07-12-2023 Ammonia (P) [Moles/Vol] 24 umol Normal 11 - 35 mcmol [facility] Remisol Anion gap [Moles/Vol] 10 mmol/L Normal 6 - 16 mEq/L [facility] Remisol Calcium [Mass/Vol] 8.8 mg/dL Low 8.9 - 11. 1 mg/dL [facility] Remisol Chloride [Moles/Vol] 105 mmol/L Normal 101 - 1 11 mmol/L [facility] Remisol CO2 [Moles/Vol] 27 mmol/L Normal 21 - 31 mmol/L [facility] Remisol Creatinine [Mass/Vol] 0.6 mg/dL Normal 0.5 - 1.3 mg/dL [facility] Remisol GFR/1.73 sq M.predicted among non-blacks MDRD (S/P/Bld) [Vol rate/Area] 91 mL/min/1.73 m2 Normal >=59mL/min/ 1.73 m2 [facility] Chem S Comment on above: Interpretive Data: C hronic kidney disease could be indicated at eGFR's of less than 60 mL/min/1.73m2. Kidney failure is indicated at less than 15 mL/min/1.73m2. Glucose [Mass/Vol] 101 mg/dL Normal 55 - 199 mg/dL [facility] Remisol Comment on above: Interpretive Data: I f this glucose result represents a fasting glucose, interpretation should refer to the following reference range: 55-99 mg/dL Potassium [Moles/Vol] 3.5 mmol/L Normal 3.5 - 5.3 mmol/L [facility] Remisol Sodium [Moles/Vol] 138 mmol/L Normal 135 - 145 mmol/L [facility] Remisol Urea nitrogen [Mass/Vol] 15 mg/dL Normal 5 - 21 mg/dL [facility] Remisol Urea nitrogen/Creatinine [Mass ratio] 25 mg/mg High 10 - 20 [facility] Remisol Interdisciplinary Note - Adalberto e Manageron 07-12-2023 Interdisciplinary Note - Bakery Deliverer Pt is awake and alert in bed, previously rounded with Rimma JOHNSTON Pt is aware and remains agreeble to plan for TCU [place], pending precert at this time. Family at bedside. Aware of plan to stay in hospital today and anticipate DC 07/13. Pt declines any further concerns ro DC needs. . PCP verified and insurance information reviewed and DME discussed. Contact information provided and white board updated. [facility] Comment on above: Result Comment: Elec tronically Signed By: Jeovanny CROWLEY, Shanae\.br\Date and Time Signed: 07/12/23 12:53 EST Monitor Recordon 07-12-2023 Monitor Record [id number]#1. 00TIFF Normal [facility] Monitor Record [id number]#1. 00TIFF Normal [facility] Monitor Record [id number]#1. 00TIFF Normal [facility] eGFRon 07-12-2023 GFR/1.73 sq M.predicted among non-blacks MDRD (S/P/Bld) [Vol rate/Area] 91 mL/min/1.73 m2 Normal >=59 [facility] Comment on above: Order Comment: Order added by Discern Expert. Result Comment: Sorter Lumber Straightener adelso kidney disease could be indicated at eGFR's of less than 60 mL/min/1.73m2. Kidney failure is indicated at less than 15 mL/min/1.73m2. Performed By: #### 2 220855, 7906305, [id number] #### [facility] [address] [place] [address] Auto Diffon 07-11-2023 Basophils/100 WBC (Bld) 0.3 % Normal 0.0-2.0 [facility] Comment on above: Order Comment: Order Added by Discern Expert. Performed By: #### 1 0525197, 2908147, 4068087, 9654491, 48819714 #### [facility] [address] [place] [address] Basophils/Leukocytes Auto (Bld) [Pure # fraction] 0.0 E9/L Normal 0.0-0.2 [facility] Comment on above: Order Comment: Order Added by Discern Expert. Performed By: #### 1 7275787, 9452686, 7719256, 3068520, 58911177 #### [facility] [address] [place] [address] Eosinophils/100 WBC (Bld) 1.4 % Normal 0.0-8.0 [facility] Comment on above: Order Comment: Order Added by Alethea Expert. Performed By: #### 1 4845474, 4573006, 6100083, 2404614, 82220016 #### [facility] [address] [place] [address] Eosinophils/Leukocytes Auto (Bld) [Pure # fraction] 0.1 E9/L Normal 0.0-0.5 [facility] Comment on above: Order Comment: Order Added by Alethea Expert. Performed By: #### 1 1836739, 0303954, 6125259, 8045912, 13041972 #### [facility] [address] [place] [address] Lymphocytes/100 WBC (Bld) 32.5 % Normal 14.0-50.0 [facility] Comment on above: Order Comment: Order Added by Alethea Expert. Performed By: #### 1 9605984, 1685956, 9869812, 0259799, 68771442 #### [facility] [address] [place] [address] Lymphocytes/Leukocytes Auto (Bld) [Pure # fraction] 2.0 E9/L Normal 1.0-4.0 [facility] Comment on above: Order Comment: Order Added by Discern Expert. Performed By: #### 1 9840925, 2622491, 7312106, 6288305, 35106782 #### [facility] [address] [place] [address] Monocytes/100 WBC (Bld) 7.4 % Normal 4.0-14.0 [facility] Comment on above: Order Comment: Order Added by Discern Expert. Performed By: #### 1 3112147, 1905936, 6417178, 6302726, 59585693 #### [facility] [address] [place] [address] Monocytes/Leukocytes Auto (Bld) [Pure # fraction] 0.5 E9/L Normal 0.2-1.0 [facility] Comment on above: Order Comment: Order Added by Discern Expert. Performed By: #### 1 1059025, 9229118, 6813772, 7424665, 32096952 #### [facility] [address] [place] [address] Neutrophils/100 WBC (Bld) 58.4 % Normal 36.0-75.0 [facility] Comment on above: Order Comment: Order Added by Alethea Expert. Performed By: #### 1 2903103, 8590191, 3391790, 9007195, 12625421 #### [facility] [address] [place] [address] Neutrophils/Leukocytes Auto (Bld) [Pure # fraction] 3.6 E9/L Normal 2.0-7.5 [facility] Comment on above: Order Comment: Order Added by Discern Expert. Performed By: #### 1 9206473, 4722587, 9339860, 7472995, 76646427 #### [facility] [address] [place] [address] BMPon 07-11-2023 Anion gap [Moles/Vol] 7 mmol/L Normal 6-16 [facility] Comment on above: Performed By: #### 1 2235907, 7867297, 0974922, 4764643, 49825509 #### [facility] [address] [place] [address] Calcium [Mass/Vol] 8.5 mg/dL Low 8.9-11.1 [facility] Comment on above: Performed By: #### 1 2591333, 3392436, 7756493, 7310424, 64805823 #### [facility] [address] [place] [address] Chloride [Moles/Vol] 104 mmol/L Normal 101-111 [facility] Comment on above: Performed By: #### 1 0705099, 9058348, 7621406, 3056654, 35004233 #### [facility] [address] [place] [address] CO2 [Moles/Vol] 28 mmol/L Normal 21-31 [facility] Comment on above: Performed By: #### 1 2193882, 4744398, 2036691, 6455735, 77954516 #### [facility] [address] [place] [address] Glucose [Mass/Vol] 105 mg/dL Normal 55-199 [facility] Comment on above: Result Comment: If t his glucose result represents a fasting glucose, interpretation should refer to the following reference range: 55-99 mg/dL Performed By: #### 1 8421482, 6747712, 4921424, 2259027, 38153457 #### [facility] [address] [place] [address] Potassium [Moles/Vol] 3.9 mmol/L Normal 3.5-5.3 [facility] Comment on above: Performed By: #### 1 2174333, 2884299, 4441203, 6149116, 15726349 #### [facility] [address] [place] [address] Sodium [Moles/Vol] 135 mmol/L Normal 135-145 [facility] Comment on above: Performed By: #### 1 9075133, 1466551, 9082141, 2829531, 33473086 #### [facility] [address] [place] [address] Creatinine [Mass/Vol] 0.6 mg/dL Normal 0.5-1.3 [facility] Comment on above: Performed By: #### 1 1613946, 9263716, 9970768, 8518881, 12060766 #### [facility] [address] [place] [address] Urea nitrogen [Mass/Vol] 14 mg/dL Normal 5-21 [facility] Comment on above: Performed By: #### 1 0334391, 9561429, 3362608, 6583774, 00058156 #### [facility] [address] [place] [address] Urea nitrogen/Creatinine [Mass ratio] 23 No Units High 10-20 [facility] Comment on above: Performed By: #### 1 7675556, 7409701, 1664408, 7942979, 49630576 #### [facility] [address] [place] [address] CBC w/ Auto Diffon 3 Erythrocyte distribution width (RBC) [Ratio] 13.0 % Normal 10.9-14.2 [facility] Comment on above: Performed By: #### 1 1136398, 6170332, 9068832, 6659182, 59472434 #### [facility] [address] [place] [address] Hematocrit (Bld) [Volume fraction] 36.9 % Normal 34.0-46.0 [facility] Comment on above: Performed By: #### 1 1120259, 6308321, 1351267, 2632188, 12508384 #### [facility] [address] [place] [address] Hemoglobin (Bld) [Mass/Vol] 12.7 g/dL Normal 12.0-16.0 [facility] Comment on above: Performed By: #### 1 9698403, 7955137, 9849853, 1720119, 01079233 #### [facility] [address] [place] [address] MCH (RBC) [Entitic mass] 32.9 pg Normal 27.0-34.0 [facility] Comment on above: Performed By: #### 1 7237378, 6926226, 8707279, 0340386, 29033825 #### [facility] [address] [place] [address] MCHC (RBC) [Mass/Vol] 34.3 g/dL Normal 31.4-36.0 [facility] Comment on above: Performed By: #### 1 0066522, 3441531, 3941147, 3024307, 62155889 #### [facility] [address] [place] [address] MCV (RBC) [Entitic vol] 95.9 fL Normal 80.0-100.0 F [facility] Comment on above: Performed By: #### 1 0481929, 6819600, 0518177, 8255762, 38850044 #### [facility] [address] [place] [address] Platelet mean volume (Bld) [Entitic vol] 7.7 fL Normal 6.4-10.8 [facility] Comment on above: Performed By: #### 1 0639640, 0824032, 9877111, 1427792, 01733891 #### [facility] [address] [place] [address] Platelets (Bld) [#/Vol] 171.0 E9/L Normal 150.0-500.0 [facility] Comment on above: Performed By: #### 1 9502171, 0388474, 5240082, 6817253, 36145977 #### [facility] [address] [place] [address] RBC (Bld) [#/Vol] 3.8 E12/L Low 4.3-5.9 [facility] Comment on above: Performed By: #### 1 5608753, 7977541, 0162332, 0787028, 08144192 #### [facility] [address] [place] [address] WBC corrected for nucl RBC Auto (Bld) [#/Vol] 6.2 E9/L Normal 4.0-11.0 [facility] Comment on above: Performed By: #### 1 6267774, 3235785, 8236472, 3140260, 26655168 #### [facility] [address] [place] [address] CHEMISTRYOrdered By: SYSTEM SYSTEM on 07-11-2023 Ethanol [...] 91 mL/min/1.73 m2 Normal >=59mL/min/ 1.73 m2 [facility] Comment on above: Interpretive Data: [...] High Sensitivity Troponin I Instructions For Use, Anali Alcoa, March 2018) Consultation Noteon 07-11-20 Consultation Note [...] sensation in all 4 extremities Cerebellar exam: Boycju-ds-[id number] reveals no ataxia. Gait is deferred Assessment/Plan [...] (F42.4: Excoria (more content not included)... Normal [facility] Comment on above: Result Comment: Elec tronically Signed By: Rashida Moraes RN\.br\Date and Time Signed: 07/11/23 07:08 EST\.br\Electronically Co-Signed By: Austyn Campos MD\.br\Date and Time Co-Signed: 07/11/23 10:43 EST Ethanolon 07-11-2023 Ethanol [Mass/Vol] mg/dL Normal <=7 [facility] Comment on above: Performed By: #### 1 4283304, 7880075, 1621020, 3836491, 13431365 #### [facility] [address] [place] [address] HEMATOLOGYOrdered By: SYSTEM SYSTEM on 07-11-2023 Basophils/100 [...] 36.9 % Normal 34.0 - 46.0 % FT HemeAutoSS Hemoglobin (Bld) [Mass/Vol] 12.7 g/dL Normal 12.0 - 16.0 gm/dL [facility] MCH (RBC) [Entitic mass] 32.9 pg Normal 27.0 - 34.0 pg FT [facility]SS MCHC (RBC) [Mass/Vol] 34.3 g/dL Normal 31.4 - 36.0 gm/dL FT [facility] MCV (RBC) [Entitic vol] 95.9 fL Normal 80.0 - 100.0 fL [facility] Platelet mean volume (Bld) [Entitic vol] 7.7 fL Normal 6.4 - 10.8 fL [facility] Platelets (Bld) [#/Vol] 171.0 E9/L Normal 150. 0 - 500.0 E9/L [facility] RBC (Bld) [#/Vol] 3.8 E12/L Low 4.3 - 5.9 E12/L FT [facility] WBC corrected for nucl RBC Auto (Bld) [#/Vol] 6.2 E9/L Normal 4.0 - 11.0 E9/L [facility] HemeAutoSS Hep Func Panelon 07-11-2023 Albumin [Mass/Vol] 3.3 g/dL Normal 3.3-5.0 [facility] Comment on above: Performed By: #### 1 3136131, 4401206, 3858896, 3100792, 23122289 #### [facility] [address] [place] [address] Albumin/Globulin (S) [Mass conc ratio] 0.8 Low 1.1-2.2 [facility] Comment on above: Performed By: #### 1 6594560, 9118823, 1478369, 2945567, 89052610 #### [facility] [address] [place] [address] ALP [Catalytic activity/Vol] 60 Int._Unit/L Normal 21-98 [facility] Comment on above: Performed By: #### 1 6414605, 0625152, 3983257, 8425676, 51517244 #### [facility] [address] [place] [address] ALT No additional P-5'-P [Catalytic activity/Vol] 18 Int._Unit/L Normal 6-46 [facility] Comment on above: Performed By: #### 1 5772133, 0313567, 6261132, 3512075, 00984099 #### [facility] [address] [place] [address] AST [Catalytic activity/Vol] 36 Int._Unit/L Normal 5-43 [facility] Comment on above: Performed By: #### 1 0613958, 2857255, 2325876, 1166212, 76973611 #### [facility] [address] [place] [address] Bilirubin [Mass/Vol] 1.3 mg/dL High 0.0-1.1 [facility] Comment on above: Performed By: #### 1 0774218, 4829628, 7116087, 5592854, 64334742 #### [facility] [address] [place] [address] Bilirubin.direct [Mass/Vol] 0.2 mg/dL Normal 0.1-0.4 [facility] Comment on above: Performed By: #### 1 8150886, 4128902, 0390144, 6829912, 11945674 #### [facility] [address] [place] [address] Bilirubin.indirect [Mass or moles/Vol] 1.1 mg/dL High 0.1-0.9 [facility] Comment on above: Performed By: #### 1 9134217, 3146981, 5967175, 1280326, 40629143 #### [facility] [address] [place] [address] Globulin (S) [Mass/Vol] 4.2 g/dL High 1.4-4.0 F [facility] Comment on above: Performed By: #### 1 8535491, 0063236, 8961761, 5682509, 02281706 #### [facility] [address] [place] [address] [place] [address] Protein [Mass/Vol] 7.5 g/dL Normal 6.0-7.8 [facility] Comment on above: Performed By: #### 1 9800416, 5541041, 6250955, 9326470, 73197221 #### [facility] [address] [place] [address] Interdisciplinary Note - Adalberto e Manageron 07-11-2023 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 Pending PT/OT. ROSADO form discussed over the phone. Copy provided. Ant dc TBD. CRM to follow. PT/OT recs SNF. Referral made per dtr's request. Precert. Normal [facility] Comment on above: Result Comment: Elec tronically Signed By: Edita Cai\.br\Date and Time Signed: 07/11/23 15:18 EST Interdisciplinary Note - Penelope n 07-11-2023 Interdisciplinary Note - OT OT [facility] six clicks score 14/24= SNF. Patient requires cga/min A w/ adls and transfers. Patient requires cues for safety and sequencing w/ all functional tasks. Inpatient OT services to follow daily to progress as able w/ functional skills. Normal [facility] Interdisciplinary Note - PTo n 07-11-2023 Interdisciplinary [...] tactile cues with all functional mobility. Normal [facility] MRI Brain w/o Contraston MRI Brain w/o [...] SID Technologist: JASPREET Technical Comments None Normal [facility] Monitor Recordon 07-11-2023 Monitor Record [id number]#1. 00TIFF Normal [facility] Monitor Record [id number]#1. 00TIFF Normal [facility] Monitor Record [id number]#1. 00TIFF Normal [facility] Monitor Record [id number]#1. 00TIFF Normal [facility] Progress Note-Physicianon Progress Note-Physician Assessment/Plan 1. Acute [...] Remote history of lower back surgery at [facility]. Patient is on Zanaflex we will continue [...] % (07/11/23 05:47:00) (more content not included)... Normal [facility] Comment on above: Result Comment: Elec tronically Signed By: Rimma Paez\.br\Date and Time Signed: 07/11/23 12:23 EST\.br\Electronically Co-Signed By: HARPER RODRIGUEZ, Valente\.br\Date and Time Co-Signed: 07/11/23 14:40 EST RAD - MRI Screening Formon 1 09-11-2022 RAD - MRI Screening Form [id number] 0TIFF Normal [facility] Sed Rate Automatedon 023 ESR (Bld) [Velocity] 46 mm/h High 0-34 [facility] Comment on above: Performed By: #### 1 5414581, 5434404, 3409121, 1622768, 42120081 #### [facility] [address] [place] [address] TSH With T4fr Reflexon 07-11 TSH Qn 0.78 m[IU]/L Normal 0.34-5.60 [facility] Comment on above: Performed By: #### 1 6665383, 8375739, 8297695, 2707943, 56166795 #### [facility] [address] [place] [address] Troponin 6 Hr.on 07-11-2023 Troponin I.cardiac [Mass/Vol] 11.30 pg/mL Normal 10.10-27.10 [facility] Comment on above: Result Comment: The 95% CI (Confidence Interval) PPV (Positive Predictive Value) for myocardial infarction in females is 38 pg/mL, in males 51 pg/mL. The results should be used in conjunction with clinical conditions of myocardial infarction. (Access High Sensitivity Troponin I Instructions For Use, Anali Winnie, March 2018) Performed By: #### 1 [id number], 5370671, 5736569, 6288230, 97788149 #### [facility] [address] [id number] Troponin 9 Hr.on 07-11-2023 Troponin I.cardiac [Mass/Vol] 11.70 pg/mL Normal 10.10-27.10 [facility] Comment on above: Result Comment: The 95% CI (Confidence Interval) PPV (Positive Predictive Value) for myocardial infarction in females is 38 pg/mL, in males 51 pg/mL. The results should be used in conjunction with clinical conditions of myocardial infarction. (Access High Sensitivity Troponin I Instructions For Use, Anali [employer], March 2018) Performed By: #### 1 [id number], 3516374, 0855217, 5558915, 07139456 #### [facility] [address] [place] [address] U Drug Screenon 07-11-2023 Amphetamines Screen method >1000 ng/mL Ql (U) Negative Normal Negative [facility] Comment on above: Result Comment: Nega tive Cutoff: <1000 ng/mL Performed By: #### 1 6991619, 4755303, 2746290, 9562355, 85023123 #### [facility] [address] [id number] Barbiturates Screen Ql (U) Negative Normal Negative [facility] Comment on above: Result Comment: Nega tive Cutoff: <200 ng/mL Performed By: #### 1 5136560, 2396946, 4773833, 9894035, 80981534 #### [facility] [address] [place] [address] Benzodiazepines Ql (U) Negative Normal Negative [facility] Comment on above: Result Comment: Nega tive Cutoff: <200 ng/mL Performed By: #### 1 3723932, 9662755, 8815217, 4127991, 85857702 #### [facility] [address] [place] [address] Cocaine Ql (U) Negative Normal Negative [facility] Comment on above: Result Comment: Nega tive Cutoff: <300 ng/mL Performed By: #### 1 5957867, 6095168, 1366529, 6660347, 67969917 #### [facility] [address] [place] [address] Opiates Screen Ql (U) Negative Normal Negative [facility] Comment on above: Result Comment: Nega tive Cutoff: <300 ng/mL Performed By: #### 1 3798157, 8007026, 1162150, 9688400, 23814885 #### [facility] [address] [place] [address] Phencyclidine Screen method >25 ng/mL Ql (U) Negative Normal Negative [facility] Comment on above: Result Comment: Nega tive Cutoff: <25 ng/mL These drug screen results are to be used for medical (i.e., treatment) purposes only. Unconfirmed drug screening results must not be used for non-medical purposes (e.g., employment testing, legal testing). Performed By: #### 1 1299260, 6528289, 2596082, 6585598, 26892421 #### [facility] [address] [place] [address] Tetrahydrocannabinol Screen method >50 ng/mL Ql (U) Negative Normal Negative [facility] Comment on above: Result Comment: Nega tive Cutoff: <50 ng/mL Performed By: #### 1 8375220, 0620162, 5555437, 5921525, 33993266 #### [facility] [address] [place] [address] Vit B12on 07-11-2023 Cobalamin (Vitamin B12) [Mass/Vol] 340 pg/mL Normal 50-1500 [facility] Comment on above: Performed By: #### 1 4412578, 9530429, 5192351, 2289906, 32551452 #### [facility] [address] [place] [address] XR Chest Single Viewon 07-11 XR Chest [...] mGy = na DAP = na Normal [facility] eGFRon 07-11-2023 GFR/1.73 sq M.predicted among non-blacks MDRD (S/P/Bld) [Vol rate/Area] 91 mL/min/1.73 m2 Normal >=59 [facility] Comment on above: Order Comment: Order added by Discern Expert. Result Comment: Sorter Lumber Straightener adelso kidney disease could be indicated at eGFR's of less than 60 mL/min/1.73m2. Kidney failure is indicated at less than 15 mL/min/1.73m2. Performed By: #### 1 4376305, 7789637, 6171724, 5918454, 05742613 #### [facility] [address] [place] [address] Auto Diffon 07-10-2023 Basophils/100 WBC (Bld) 0.4 % Normal 0.0-2.0 F [facility] Comment on above: Order Comment: Order Added by Discern Expert. Performed By: #### 1 3449038, 8528997, 8577169, 4895112, 98632816 #### [facility] [address] [place] [address] Basophils/Leukocytes Auto (Bld) [Pure # fraction] 0.0 E9/L Normal 0.0-0.2 [facility] Comment on above: Order Comment: Order Added by Discern Expert. Performed By: #### 1 6602803, 3505768, 2320372, 6913658, 96432686 #### [facility] [address] [place] [address] Eosinophils/100 WBC (Bld) 2.4 % Normal 0.0-8.0 [facility] Comment on above: Order Comment: Order Added by Discern Expert. Performed By: #### 1 1646399, 4580735, 7171625, 4926116, 20367158 #### [facility] [address] [place] [address] Eosinophils/Leukocytes Auto (Bld) [Pure # fraction] 0.1 E9/L Normal 0.0-0.5 [facility] Comment on above: Order Comment: Order Added by Alethea Expert. Performed By: #### 1 3737608, 6825623, 3901445, 0823707, 75069313 #### [facility] [address] [place] [address] Lymphocytes/100 WBC (Bld) 40.0 % Normal 14.0-50.0 [facility] Comment on above: Order Comment: Order Added by Discern Expert. Performed By: #### 1 7011410, 5107099, 8480848, 2056561, 94304030 #### [facility] [address] [place] [address] Lymphocytes/Leukocytes Auto (Bld) [Pure # fraction] 2.2 E9/L Normal 1.0-4.0 [facility] Comment on above: Order Comment: Order Added by Alethea Expert. Performed By: #### 1 9837767, 0622663, 7331233, 7487436, 97373464 #### [facility] [address] [place] [address] Monocytes/100 WBC (Bld) 9.2 % Normal 4.0-14.0 [facility] Comment on above: Order Comment: Order Added by Discern Expert. Performed By: #### 1 5412898, 2589856, 6177930, 2023404, 61428698 #### [facility] [address] [place] [address] Monocytes/Leukocytes Auto (Bld) [Pure # fraction] 0.5 E9/L Normal 0.2-1.0 [facility] Comment on above: Order Comment: Order Added by Discern Expert. Performed By: #### 1 4337006, 1748042, 0113765, 4449152, 63181324 #### [facility] [address] [place] [address] Neutrophils/100 WBC (Bld) 48.0 % Normal 36.0-75.0 [facility] Comment on above: Order Comment: Order Added by Discern Expert. Performed By: #### 1 1632350, 4394211, 6455426, 9809591, 81922175 #### [facility] [address] [place] [address] Neutrophils/Leukocytes Auto (Bld) [Pure # fraction] 2.7 E9/L Normal 2.0-7.5 [facility] Comment on above: Order Comment: Order Added by Discern Expert. Performed By: #### 1 7206236, 6042242, 7174812, 2256820, 72086573 #### [facility] [address] [place] [address] BMPon 07-10-2023 Creatinine [Mass/Vol] 0.6 mg/dL Normal 0.5-1.3 [facility] Comment on above: Performed By: #### 1 1723054, 6161398, 8555349, 6826803, 05632913 #### [facility] [address] [place] [address] Urea nitrogen [Mass/Vol] 15 mg/dL Normal 5-21 [facility] Comment on above: Performed By: #### 1 6028521, 7127406, 0565357, 1546745, 75142622 #### [facility] [address] [place] [address] Urea nitrogen/Creatinine [Mass ratio] 25 No Units High 10-20 [facility] Comment on above: Performed By: #### 1 8334282, 0025339, 6509041, 2753224, 85227145 #### [facility] [address] [place] [address] Anion gap [Moles/Vol] 11 mmol/L Normal 6-16 [facility] Comment on above: Performed By: #### 1 3733187, 5982689, 0882508, 9082821, 63896370 #### [facility] [address] [place] [address] Calcium [Mass/Vol] 8.8 mg/dL Low 8.9-11.1 [facility] Comment on above: Performed By: #### 1 3894444, 1881939, 7479687, 1160324, 06721412 #### [facility] [address] [place] [address] Chloride [Moles/Vol] 100 mmol/L Low 101-[address] [facility] Comment on above: Performed By: #### 1 1403846, 1447890, 1619332, 8033685, 16469987 #### [facility] [address] [place] [address] CO2 [Moles/Vol] 26 mmol/L Normal 21-31 [facility] Comment on above: Performed By: #### 1 4666020, 5784824, 0498062, 0737439, 29164469 #### [facility] [address] [place] [address] Glucose [Mass/Vol] 93 mg/dL Normal 55-199 [facility] Comment on above: Result Comment: If t his glucose result represents a fasting glucose, interpretation should refer to the following reference range: 55-99 mg/dL Performed By: #### 1 8927349, 3840682, 8860827, 5259402, 08135703 #### [facility] [address] [place] [address] Potassium [Moles/Vol] 3.8 mmol/L Normal 3.5-5.3 [facility] Comment on above: Performed By: #### 1 5298506, 7181747, 0037501, 9537006, 98584830 #### [facility] [address] [place] [address] Sodium [Moles/Vol] 133 mmol/L Low 135-145 [facility] Comment on above: Performed By: #### 1 8239995, 9928191, 9378830, 5977530, 43710287 #### [facility] [address] [place] [address] CBC w/ Auto Diffon 3 Erythrocyte distribution width (RBC) [Ratio] 12.9 % Normal 10.9-14.2 [facility] Comment on above: Performed By: #### 1 0095988, 5328133, 7754524, 6407819, 53683110 #### [facility] [address] [place] [address] Hematocrit (Bld) [Volume fraction] 40.5 % Normal 34.0-46.0 [facility] Comment on above: Performed By: #### 1 5205750, 2607068, 0955784, 9398618, 42268577 #### [facility] [address] [place] [address] Hemoglobin (Bld) [Mass/Vol] 13.6 g/dL Normal 12.0-16.0 [facility] Comment on above: Performed By: #### 1 5587589, 9902737, 5379547, 8761453, 03616332 #### [facility] [address] [place] [address] MCH (RBC) [Entitic mass] 32.2 pg Normal 27.0-34.0 [facility] Comment on above: Performed By: #### 1 2134080, 2471846, 0322533, 4296445, 22058098 #### [facility] [address] [place] [address] MCHC (RBC) [Mass/Vol] 33.5 g/dL Normal 31.4-36.0 [facility] Comment on above: Performed By: #### 1 8000885, 2982338, 3865929, 9923832, 59256101 #### [facility] [address] [place] [address] MCV (RBC) [Entitic vol] 96.4 fL Normal 80.0-100.0 F [facility] Comment on above: Performed By: #### 1 0231961, 6876814, 2773258, 8778495, 81113450 #### [facility] [address] [place] [address] Platelet mean volume (Bld) [Entitic vol] 8.0 fL Normal 6.4-10.8 [facility] Comment on above: Performed By: #### 1 1030710, 2601764, 6169970, 9731677, 32119201 #### [facility] [address] [place] [address] Platelets (Bld) [#/Vol] 186.0 E9/L Normal 150.0-500.0 [facility] Comment on above: Performed By: #### 1 5867457, 0287436, 0746213, 7350232, 72108327 #### [facility] [address] [place] [address] RBC (Bld) [#/Vol] 4.2 E12/L Low 4.3-5.9 [facility] Comment on above: Performed By: #### 1 4653982, 5453891, 3157925, 8245109, 00881236 #### [facility] [address] [place] [address] WBC corrected for nucl RBC Auto (Bld) [#/Vol] 5.6 E9/L Normal 4.0-11.0 [facility] Comment on above: Performed By: #### 1 2985145, 6359658, 9860577, 2088549, 16750015 #### [facility] [address] [place] [address] CHEMISTRYOrdered By: SYSTEM SYSTEM on 07-10-2023 Troponin I.cardiac [Mass/Vol] 11.30 pg/mL Normal 10.10 - 27.10 pg/mL [facility] Remisol Comment on above: Interpretive Data: T he 95% CI (Confidence Interval) PPV (Positive Predictive Value) for myocardial infarction in females is 38 pg/mL, in males 51 pg/mL. The results should be used in conjunction with clinical conditions of myocardial infarction. (Access High Sensitivity Troponin I Instructions For Use, [employer], March 2018) Troponin I.cardiac [Mass/Vol] 11.00 pg/mL Normal 10.10 - 27.10 pg/mL [facility] Comment on above: Interpretive Data: T he 95% CI (Confidence Interval) PPV (Positive Predictive Value) for myocardial infarction in females is 38 pg/mL, in males 51 pg/mL. The results should be used in conjunction with clinical conditions of myocardial infarction. (Angelfish High Sensitivity Troponin I Instructions For Use, [employer], March 2018) Amphetamines Screen method >1000 ng/mL [...] N egative Cutoff: <50 ng/mL CHEMISTRYOrdered By: Tay ALTMAN User on 07-10-2023 POC Username JAGRUTI FLOR Invalid Interpretation Code [facility] POC Subsection Sodium [Moles/Vol] [id number] mmol/L Invalid Interpretation Code [facility] POC Subsection Sodium [Moles/Vol] [id number] mmol/L Invalid Interpretation Code [facility] POC Subsection CT Head or [...] REPORT Dictated: 07/10/2023 5:52 pm Juaquin Allen MD. Signed (Electronic Signature): 07/10/2023 5:52 pm Signed by: Juaquin Allen MD Transcribed by: SID Technologist: CYNTHIA Schultz [facility] Capillary Glucose POCOrdered By: Tay ALTMANUser on 07-10-2023 Glucose [Mass/Vol] 90 mg/dL Normal 55-99 [facility] P OC Subsection Comment on above: Result Comment: Noti fied RN/MD Performed By: #### 1 4621109, 1013255, 0503415, 1767200, 72256969 #### [facility] [address] [place] [address] Consent for Treatmenton Consent for Treatment [id number]#[id number] 0TIFF Normal [facility] ED Clinical Summaryon 2022 ED Clinical Summary [address] [address] ED Clinical Summary Person Information Name: CARIDAD CARIAS [place] Age: 82 Years : 1940 Sex: Female Language: Citizen Of [place] PCP: EDMOND PACHECO DO Marital Status: Phone: [phone] Visit Id: Visit Reason: Altered mental status; ALTERED MENTAL STATUS - VERY CONFUSED - FRONTAL HEADACHE Speciality: Acuity: 2 Enc Type: Observation Med Service: Emergency Arrival: 07/10/2023 16:39:36 Discharge: LOS: 000 03:48 Checkin: 07/10/2023 16:39:36 Checkout: 07/10/2023 20:27:17 Dispo Type: Admitted as IP to this [facility] EVENTS: Event Name Event Status [...] 19:47:44 Patient Care Request 07/10/2023 19:47:44 ADDRESS: [id number] PHYS DOC NOTES: MEDICAL INFORMATION: Prescriptions Given: [...] 1:History of dementia; 2:Altered mental status Normal [facility] ED Note-Physicianon 07-10-20 ED Note-Physician Basic Information [...] but recovered [facility]. The patient lives alone at home [...] Allergies liang (more content not included)... Normal [facility] Comment on above: Result Comment: Elec tronically Signed By: Ryan Boss MD\.br\Date and Time Signed: 07/10/23 19:52 EST ED Patient Education Noteon 07-10-2023 ED Patient Education Note Normal [facility] ED Patient Summaryon 023 ED Patient Summary [address] [id number] Patient Discharge Instructions Person Information Name: CARIDAD CARIAS I Age: 82 Years Arrival Date: 07/10/2023 16:39:36 Discharge Diagnosis: 1:History of dementia; 2:Altered mental status Primary Care Physician: EDMOND PACHECO DO Provider Information Primary Provider: Ryan Boss MD Advanced Registration Clerk:None The exam and treatment you received in the Emergency Department were for an urgent problem and are not intended as complete care. It is important that you follow up with a doctor, nurse practitioner, or physician?s assistant [employer] content [employer] delivery for ongoing care. If your symptoms become worse or you do not improve as expected and you are unable to reach your usual health care provider, you should return to the Emergency Department. We are available 24 hours a day. CARIDAD CARIAS I has been given the following list [...] opioids can be used to help relieve wjywwsth-li-rbhwbi pain and are often prescribed following a [...] be struggling with addiction, tell your health pharmacy customer care specialist and ask for guidance or call [facility]?S National Helpline at 4-909-981-OEGM. u Source: [place] Department of Health and Human Services/Center for Disease Control & Prevention [facility] Medications Given: Medication (more content not included)... Normal [facility] HEMATOLOGYOrdered By: SYSTEM SYSTEM on 07-10-2023 Basophils/100 WBC (Bld) 0.4 % Normal 0.0 - 2.0 % [facility] HemeAutoSS Basophils/Leukocytes Auto (Bld) [Pure # fraction] 0.0 E9/L Normal 0.0 - 0.2 E9/L [facility] HemeAutoSS Eosinophils/100 WBC (Bld) 2.4 % Normal [...] 12.9 % Normal 10.9 - 14.2 % [facility] Hematocrit (Bld) [Volume fraction] 40.5 % Normal 34.0 - 46.0 % [facility] Hemoglobin (Bld) [Mass/Vol] 13.6 g/dL Normal 12.0 - 16.0 gm/dL [facility] MCH (RBC) [Entitic mass] 32.2 pg Normal 27.0 - 34.0 pg [facility] MCHC (RBC) [Mass/Vol] 33.5 g/dL Normal 31.4 - 36.0 gm/dL [facility] MCV (RBC) [Entitic vol] 96.4 fL Normal 80.0 - 100.0 fL [facility] Platelet mean volume (Bld) [Entitic vol] 8.0 fL Normal 6.4 - 10.8 fL [facility] Platelets (Bld) [#/Vol] 186.0 E9/L Normal 150. 0 - 500.0 E9/L [facility] RBC (Bld) [#/Vol] 4.2 E12/L Low 4.3 - 5.9 E12/L [facility] WBC corrected for nucl RBC Auto (Bld) [#/Vol] 5.6 E9/L Normal 4.0 - 11.0 E9/L [facility] HemeAutoSS Troponin 0 Hr.on 07-10-2023 Troponin I.cardiac [Mass/Vol] 10.20 pg/mL Normal 10.10-27.10 [facility] Comment on above: Result Comment: The 95% CI (Confidence Interval) PPV (Positive Predictive Value) for myocardial infarction in females is 38 pg/mL, in males 51 pg/mL. The results should be used in conjunction with clinical conditions of myocardial infarction. (Access High Sensitivity Troponin I Instructions For Use, Anali Winnie, March 2018) Performed By: #### 1 3187430, 6276304, 0530698, 2635006, 69623480 #### [facility] [address] [place] [address] Troponin 3 Hr.on 07-10-2023 Troponin I.cardiac [Mass/Vol] 11.00 pg/mL Normal 10.10-27.10 [facility] Comment on above: Result Comment: The 95% CI (Confidence Interval) PPV (Positive Predictive Value) for myocardial infarction in females is 38 pg/mL, in males 51 pg/mL. The results should be used in conjunction with clinical conditions of myocardial infarction. (Access High Sensitivity Troponin I Instructions For Use, Anali [employer], March 2018) Performed By: #### 1 [id number] ####[facility] [address] [place] [address] UA With Cult Reflexon 2022 Bilirubin Ql (U) Negative Normal Negative [facility] Comment on above: Performed By: #### 1 5282814 ####[address] [address] Clarity (U) CLEAR Normal Clear [facility] Comment on above: Performed By: #### 1 4714514 ####[address] [address] Color (U) YELLOW Normal Yellow [facility] Comment on above: Performed By: #### 1 8926043 ####[facility] [address] [place] [address] Epithelial cells.squamous LM.HPF (Urine sed) [#/Area] 3-4 Normal 0-2 [facility] Comment on above: Performed By: #### 1 8150572 ####[facility] [address] [place] [address] Glucose Test strip (U) [Mass/Vol] Negative Normal Negative [facility] Comment on above: Performed By: #### 1 5032332 ####[facility] [address] [place] [address] Hemoglobin Ql (U) Negative Normal Negative [facility] Comment on above: Performed By: #### 1 9825015 ####[facility] [address] [place] [address] Ketones (U) [Mass/Vol] Negative Normal Negative Fi [facility] Comment on above: Performed By: #### 1 9624645 [address] [place] [address] Speedway.plasma/Speedway. RBC (Bld) [Mass ratio] 0-3 Normal 0-3 [facility] Comment on above: Performed By: #### 1 7093201 ####[address] [address] Nitrite Ql (U) Negative Normal Negative [facility] Comment on above: Performed By: #### 1 6733195 ####[address] [address] pH (U) 6.5 [pH] Invalid Interpretation Code 5.0-9.0 [facility] Comment on above: Performed By: #### 1 5687473 ####[address] [address] Protein (U) [Mass/Vol] Negative Normal Negative [facility] Comment on above: Performed By: #### 1 8027340 ####[address] [address] Specific gravity (U) [Rel density] 1.010 Invalid Interpretation Code 1.005-1.030 [facility] Comment on above: Performed By: #### 1 4121936 ####[address] [address] Type of Urine collection method Clean Catch Normal [facility] Comment on above: Performed By: #### 1 7335435 ####[address] [address] Urobilinogen Qn (U) 0.2 {[place]'U}/dL Normal 0.0-1.0 [facility] Comment on above: Performed By: #### 1 0784680 ####[address] [address] WBC Auto Ql (U) Negative Normal Negative [facility] Comment on above: Performed By: #### 1 1107265 ####[address] [address] WBC LM.HPF (Urine sed) [#/Area] 0-5 Normal 0-5 [facility] Comment on above: Performed By: #### 1 8117473 ####[facility] [address] [place] [address] URINALYSISOrdered By: Kayy Alfaro on 07-10-2023 Bilirubin Ql (U) Negative (07/10/23 5:10 PM) Normal Negative [facility] UA Auto SS Clarity (U) Clear (07/10/23 5:10 PM) Normal Clear [facility] UA Auto SS Color (U) Yellow (07/10/23 5:10 PM) Normal Yellow [facility] UA Auto SS Epithelial cells.squamous LM.HPF (Urine sed) [#/Area] 3-4 /HPF Normal 0-2/HPF [facility] UA Aut o SS Glucose Test strip (U) [Mass/Vol] Negative (07/10/23 5:10 PM) Normal Negative [facility] UA Auto SS Hemoglobin Ql (U) Negative (07/10/23 5:10 PM) Normal Negative [facility] UA Auto SS Ketones (U) [Mass/Vol] Negative (07/10/23 5:10 PM) Normal Negative [facility] UA Auto SS Speedway.plasma/Speedway. RBC (Bld) [Mass ratio] 0-3 /HPF Normal [...] Desc Clean Catch (07/10/23 5:10 PM) Normal [facility] UA Auto SS Urobilinogen Qn (U) 0.6464088 {[place]'U}/dL Normal 0.0 - 1.0 EU/dL [facility] UA Auto SS WBC Auto Ql (U) Negative (07/10/23 5:10 PM) Normal Negative [facility] UA Auto SS WBC LM.HPF (Urine sed) [#/Area] 0-5 /HPF Normal 0-5/HPF [facility] UA Auto SS eGFRon 07-10-2023 GFR/1.73 sq M.predicted among non-blacks MDRD (S/P/Bld) [Vol rate/Area] 91 mL/min/1.73 m2 Normal >=59 [facility] [facility] Comment on above: Order Comment: Order added by Discern Expert. Result Comment: Sorter Lumber Straightener adelso kidney disease could be indicated at eGFR's of less than 60 mL/min/1.73m2. Kidney failure is indicated at less than 15 mL/min/1.73m2. Performed By: #### 1 8041477, 3243672, 5937708, 9487093, 42092825 #### [facility] [address] [place] [address] Physician Orderon 07-08-2023 Physician Order [id number] 0TIFF Normal [facility] Nonvisit Note - PTon 023 Nonvisit Note - PT 06-27-23 hf, pt cxl in remind system, no reason available. Normal [facility] Auto Diffon 06-24-2023 Basophils/100 WBC (Bld) 0.5 % Normal 0.0-2.0 F [facility] Comment on above: Order Comment: Order Added by Discern Expert. Performed By: #### 1 0397324, 1168164, 4073118, 8467730 ####[facility] [address] [place] [address] Basophils/Leukocytes Auto (Bld) [Pure # fraction] 0.0 E9/L Normal 0.0-0.2 [facility] Comment on above: Order Comment: Order Added by Discern Expert. Performed By: #### 1 8810040, 3478814, 3746458, 2052723 ####[facility] [id number] [place] [address] Eosinophils/100 WBC (Bld) 2.0 % Normal 0.0-8.0 [facility] Comment on above: Order Comment: Order Added by Alethea Expert. Performed By: #### 1 2780889, 1512927, 8990249, 4230398 ####[address] [place] [address] Eosinophils/Leukocytes Auto (Bld) [Pure # fraction] 0.1 E9/L Normal 0.0-0.5 [facility] Comment on above: Order Comment: Order Added by Discern Expert. Performed By: #### 1 9447148, 1125983, 0060496, 5511592 ####[address] [address] Lymphocytes/100 WBC (Bld) 36.5 % Normal 14.0-50.0 [facility] Comment on above: Order Comment: Order Added by Alethea Expert. Performed By: #### 1 8273233, 2604041, 7223885, 6749772 ####[address] [address] Lymphocytes/Leukocytes Auto (Bld) [Pure # fraction] 1.7 E9/L Normal 1.0-4.0 [facility] Comment on above: Order Comment: Order Added by Alethea Expert. Performed By: #### 1 2314244, 4497475, 7987968, 7267364 ####[address] [address] Monocytes/100 WBC (Bld) 8.1 % Normal 4.0-14.0 [facility] Comment on above: Order Comment: Order Added by Alethea Expert. Performed By: #### 1 8631463, 2308313, 6323923, 0226748 ####[address] [place] [address] Monocytes/Leukocytes Auto (Bld) [Pure # fraction] 0.4 E9/L Normal 0.2-1.0 [facility] Comment on above: Order Comment: Order Added by Alethea Expert. Performed By: #### 1 7332304, 7333828, 6077258, 3796188 ####[address] [place] [address] Neutrophils/100 WBC (Bld) 52.9 % Normal 36.0-75.0 [facility] Comment on above: Order Comment: Order Added by Discern Expert. Performed By: #### 1 3370370, 8819200, 6205504, 9858782 ####[address] [place] [address] Neutrophils/Leukocytes Auto (Bld) [Pure # fraction] 2.5 E9/L Normal 2.0-7.5 [facility] Comment on above: Order Comment: Order Added by Discern Expert. Performed By: #### 1 5896776, 5347983, 3216953, 4538446 ####[address] [address] CBC w/ Auto Diffon 3 Erythrocyte distribution width (RBC) [Ratio] 13.1 % Normal 10.9-14.2 [facility] Comment on above: Performed By: #### 1 3410880, 4453363, 9022822, 3745426 ####[address] [address] Hematocrit (Bld) [Volume fraction] 38.0 % Normal 34.0-46.0 [facility] Comment on above: Performed By: #### 1 7321059, 3393977, 8043418, 0071253 ####[address] [address] Hemoglobin (Bld) [Mass/Vol] 12.7 g/dL Normal 12.0-16.0 [facility] Comment on above: Performed By: #### 1 4072070, 4970596, 5244796, 0494447 ####[address] [address] MCH (RBC) [Entitic mass] 32.4 pg Normal 27.0-34.0 [facility] Comment on above: Performed By: #### 1 3857545, 3517769, 8139533, 5032930 ####[address] [address] MCHC (RBC) [Mass/Vol] 33.3 g/dL Normal 31.4-36.0 [facility] Comment on above: Performed By: #### 1 8212200, 7343910, 9030252, 7807246 ####[facility] [address] [place] [address] MCV (RBC) [Entitic vol] 97.2 fL Normal 80.0-100.0 F [facility] Comment on above: Performed By: #### 1 6201888, 9020345, 4633390, 2811196 ####[facility] [address] [place] [address] Platelet mean volume (Bld) [Entitic vol] 7.1 fL Normal 6.4-10.8 [facility] Comment on above: Performed By: #### 1 6350175, 2854311, 2353270, 8027839 ####[address] Platelets (Bld) [#/Vol] 194.0 E9/L Normal 150.0-500.0 [facility] Comment on above: Performed By: #### 1 2696080, 7702366, 0225373, 6637081 ####[address] RBC (Bld) [#/Vol] 3.9 E12/L Low 4.3-5.9 [facility] Comment on above: Performed By: #### 1 0234179, 7750612, 9120720, 3127111 ####[address] [address] WBC corrected for nucl RBC Auto (Bld) [#/Vol] 4.8 E9/L Normal 4.0-11.0 [facility] Comment on above: Performed By: #### 1 8317709, 7677166, 1623482, 3922802 ####[address] [address] CHEMISTRYOrdered By: SYSTEM SYSTEM on 06-24-2023 Albumin [...] 0.8 mg/dL Normal 0.5 - 1.3 mg/dL [facility] Remisol GFR/1.73 sq M.predicted among non-blacks MDRD (S/P/Bld) [Vol rate/Area] 74 mL/min/1.73 m2 Normal >=59mL/min/ 1.73 m2 [facility] Chem S Comment on above: Interpretive Data: C hronic kidney disease could be indicated at eGFR's of less than 60 mL/min/1.73m2. Kidney failure is indicated at less than 15 mL/min/1.73m2. Globulin (S) [Mass/Vol] 4.4 g/dL High 1.4 - 4.0 gm/dL [facility] Remisol Glucose [Mass/Vol] 154 mg/dL Normal 55 - 199 mg/dL [facility] Remisol Comment on above: Interpretive Data: I f this glucose result represents a fasting glucose, interpretation should refer to the following reference range: 55-99 mg/dL Potassium [Moles/Vol] 3.9 mmol/L Normal 3.5 - 5.3 mmol/L [facility] Remisol Protein [Mass/Vol] 7.7 g/dL Normal 6.0 - 7.8 gm/dL [facility] Remisol Sodium [Moles/Vol] 136 mmol/L Normal 135 - 145 mmol/L [facility] Remisol Urea nitrogen [Mass/Vol] 15 mg/dL Normal 5 - 21 mg/dL [facility] Remisol Urea nitrogen/Creatinine [Mass ratio] 19 mg/mg Normal 10 - 20 [facility] Remisol CMPon 06-24-2023 Albumin [Mass/Vol] 3.3 g/dL Normal 3.3-5.0 [facility] Comment on above: Performed By: #### 1 7160612, 8092435, 1609247, 4833047, 83248593 #### [facility] [address] [place] [address] Albumin/Globulin (S) [Mass conc ratio] 0.8 Low 1.1-2.2 [facility] Comment on above: Performed By: #### 1 6587957, 9443307, 9042660, 4862189, 18911042 #### [facility] [address] [place] [address] ALP [Catalytic activity/Vol] 69 Int._Unit/L Normal 21-98 [facility] Comment on above: Performed By: #### 1 9487039, 6440016, 2540184, 3522465, 04256289 #### [facility] [address] [place] [address] ALT No additional P-5'-P [Catalytic activity/Vol] 22 Int._Unit/L Normal 6-46 [facility] Comment on above: Performed By: #### 1 4173947, 5589107, 7964859, 5236917, 51294827 #### [facility] [address] [place] [address] Anion gap [Moles/Vol] 11 mmol/L Normal 6-16 [facility] Comment on above: Performed By: #### 1 8943103, 3270574, 8750276, 1643589, 04329714 #### [facility] [address] [place] [address] AST [Catalytic activity/Vol] 37 Int._Unit/L Normal 5-43 [facility] Comment on above: Performed By: #### 1 0028933, 4612576, 3171202, 1624237, 26414146 #### [facility] [address] [place] [address] Bilirubin [Mass/Vol] 1.1 mg/dL Normal 0.0-1.1 [facility] Comment on above: Performed By: #### 1 7734816, 4125960, 9247018, 2398152, 55254749 #### [facility] [address] [place] [address] Calcium [Mass/Vol] 8.9 mg/dL Normal 8.9-11.1 [facility] Comment on above: Performed By: #### 1 3888798, 3527076, 4338063, 4915111, 25216790 #### [facility] [address] [place] [address] Chloride [Moles/Vol] 102 mmol/L Normal 101-111 [facility] Comment on above: Performed By: #### 1 1428943, 4063719, 4214459, 2998608, 77555304 #### [facility] [address] [place] [address] CO2 [Moles/Vol] 27 mmol/L Normal 21-31 [facility] Comment on above: Performed By: #### 1 3560524, 9785604, 1847993, 5298296, 48472618 #### [facility] [address] [place] [address] Creatinine [Mass/Vol] 0.8 mg/dL Normal 0.5-1.3 [facility] Comment on above: Performed By: #### 1 7783917, 3157822, 6547091, 7880196, 94150709 #### [facility] [address] [place] [address] Globulin (S) [Mass/Vol] 4.4 g/dL High 1.4-4.0 F [facility] Comment on above: Performed By: #### 1 2781692, 4871954, 0412098, 8911106, 30992952 #### [facility] [address] [place] [address] Glucose [Mass/Vol] 154 mg/dL Normal 55-199 [facility] Comment on above: Result Comment: If t his glucose result represents a fasting glucose, interpretation should refer to the following reference range: 55-99 mg/dL Performed By: #### 1 5391938, 4929638, 7387729, 3723590, 56838159 #### [facility] [address] [place] [address] Potassium [Moles/Vol] 3.9 mmol/L Normal 3.5-5.3 [facility] Comment on above: Performed By: #### 1 5046527, 2014886, 5484596, 3316620, 25828882 #### [facility] [address] [place] [address] Protein [Mass/Vol] 7.7 g/dL Normal 6.0-7.8 [facility] Comment on above: Performed By: #### 1 8011499, 7074576, 8122855, 2737800, 01604328 #### [facility] [address] [place] [address] Sodium [Moles/Vol] 136 mmol/L Normal 135-145 [facility] Comment on above: Performed By: #### 1 3719111, 5102581, 3925391, 2574990, 11715873 #### [facility] [address] [place] [address] Urea nitrogen [Mass/Vol] 15 mg/dL Normal 5-21 [facility] Comment on above: Performed By: #### 1 1254638, 9995581, 1945376, 0678582, 85283612 #### [facility] [address] [place] [address] Urea nitrogen/Creatinine [Mass ratio] 19 No Units Normal 10-20 [facility] Comment on above: Performed By: #### 1 3040824, 5866809, 2925510, 3753623, 75972175 #### [facility] [address] [place] [address] Consent for Treatmenton 06-08 Consent for Treatment [id number] 0TIFF Normal [facility] HEMATOLOGYOrdered By: SYSTEM SYSTEM on 06-24-2023 Basophils/100 [...] 38.0 % Normal 34.0 - 46.0 % [facility] HemeAutoSS Hemoglobin (Bld) [Mass/Vol] 12.7 g/dL Normal 12.0 - 16.0 gm/dL [facility] HemeAutoSS MCH (RBC) [Entitic mass] 32.4 pg Normal 27.0 - 34.0 pg [facility] HemeAutoSS MCHC (RBC) [Mass/Vol] 33.3 g/dL Normal 31.4 - 36.0 gm/dL [facility] HemeAutoSS MCV (RBC) [Entitic vol] 97.2 fL Normal 80.0 - 100.0 fL [facility] HemeAutoSS Platelet mean volume (Bld) [Entitic vol] 7.1 fL Normal 6.4 - 10.8 fL [facility] HemeAutoSS Platelets (Bld) [#/Vol] 194.0 E9/L Normal 150. 0 - 500.0 E9/L [facility] HemeAutoSS RBC (Bld) [#/Vol] 3.9 E12/L Low 4.3 - 5.9 E12/L [facility] HemeAutoSS WBC corrected for nucl RBC Auto (Bld) [#/Vol] 4.8 E9/L Normal 4.0 - 11.0 E9/L [facility] HemeAutoSS Physician Orderon 06-24-2023 Physician Order [id number]#1.0 0TIFF Normal [facility] eGFRon 06-24-2023 GFR/1.73 sq M.predicted among non-blacks MDRD (S/P/Bld) [Vol rate/Area] 74 mL/min/1.73 m2 Normal >=59 [facility] Comment on above: Order Comment: Order added by Discern Expert. Result Comment: Sorter Lumber Straightener adelso kidney disease could be indicated at eGFR's of less than 60 mL/min/1.73m2. Kidney failure is indicated at less than 15 mL/min/1.73m2. Performed By: #### 1 1404365, 1498006, 6995055, 8186756, 62508614 #### [facility] [address] [place] [address] C Urineon 06-23-2023 Bacteria identified Cx Nom (U) [...] Locations R1: This test was performed at: [facility], [address] [place] [address], [address] , [place], Normal [facility] Comment on above: Performed By: #### 1 0287671, 7478123, 2246983, 6011868, 23802975 #### [facility] [address] [place] [address] Physician Orderon 06-21-2023 Physician Order [id number]#1.0 0TIFF [facility] URINALYSISOrdered By: Lizet Saab on 06-21-2023 [...] Interpretation Code Negative [facility] UA Auto SS Speedway.plasma/Speedway. RBC (Bld) [Mass ratio] 0-3 /HPF Normal 0-3/HPF [facility] UA A uto SS Mucus Ql (Urine sed) Trace (06/21/23 7:00 AM) Normal [facility] UA Auto SS Nitrite Ql (U) Positive *ABN* (06/21/23 7:00 AM) Invalid Interpretation Code Negative [facility] UA Auto SS pH (U) 5.5 *NA* (06/21/23 7:00 AM) Invalid Interpretation Code 5.0 - 9.0 [facility] UA Auto SS Protein (U) [Mass/Vol] Negative (06/21/23 7:00 AM) Normal Negative [facility] UA Auto SS Specific gravity (U) [Rel density] 1.025 *NA* (06/21/23 7:00 AM) Invalid Interpretation Code 1.005 - 1.030 [facility] UA Auto SS UA Spec Desc Clean Catch (06/21/23 7:00 AM) Normal [facility] UA Auto SS Urobilinogen Qn (U) 0.6515750 {Cuba'U}/dL Normal 0.0 - 1.0 EU/dL [facility] UA Auto SS WBC Auto Ql (U) 2+ *ABN* (06/21/23 7:00 AM) Invalid Interpretation Code Negative [facility] UA Auto SS Urinalysison 06-21-2023 Bacteria LM Ql (Urine sed) 2+ /HPF Abnormal Trace [facility] Comment on above: Performed By: #### 1 2080493, 8314504, 9597808, 6750497, 27791206 #### [facility] [address] [place] [address] Bilirubin Ql (U) 1+ Abnormal Negative [facility] Comment on above: Performed By: #### 1 1944120, 9659501, 5871053, 4566584, 03727823 #### [facility] [address] [place] [address] Calcium oxalate crystals LM Ql (Urine sed) Present Normal [facility] Comment on above: Performed By: #### 1 3624874, 2499676, 9692499, 8199023, 48280058 #### [facility] [address] [place] [address] Clarity (U) SL CLOUDY Abnormal Clear [facility] Comment on above: Performed By: #### 1 1036585, 4019746, 7911442, 3501924, 47938572 #### [facility] [address] [place] [address] Color (U) YELLOW Normal Yellow [facility] Comment on above: Performed By: #### 1 8062176, 5879329, 5373658, 9541021, 54531457 #### [facility] [address] [place] [address] Epithelial cells.squamous LM.HPF (Urine sed) [#/Area] 0-2 Normal 0-2 [facility] Comment on above: Performed By: #### 1 4413769, 1660690, 2878051, 6486962, 28502288 #### [facility] [address] [place] [address] Glucose Test strip (U) [Mass/Vol] Negative Normal Negative [facility] Comment on above: Performed By: #### 1 9856079, 3263187, 3052624, 9319359, 04614549 #### [facility] [address] [place] [address] Hemoglobin Ql (U) Negative Normal Negative [facility] Comment on above: Performed By: #### 1 1285462, 8331288, 6475343, 9018642, 44039436 #### [facility] [address] [place] [address] Ketones (U) [Mass/Vol] TRACE Abnormal Negative [facility] Comment on above: Performed By: #### 1 6688452, 7851075, 6040478, 2970869, 10957457 #### [facility] [address] [place] [address] Speedway.plasma/Speedway. RBC (Bld) [Mass ratio] 0-3 Normal 0-3 [facility] Comment on above: Performed By: #### 1 4007739, 2480887, 1056353, 9723100, 08600334 #### [facility] [address] [place] [address] Mucus Ql (Urine sed) TRACE Normal [facility] Comment on above: Performed By: #### 1 4837080, 0636844, 5505668, 1255232, 90093714 #### [facility] [address] [place] [address] Nitrite Ql (U) Positive Abnormal Negative [facility] Comment on above: Performed By: #### 1 9335559, 3125932, 1511626, 8143532, 53332492 #### [facility] [address] [place] [address] pH (U) 5.5 [pH] Invalid Interpretation Code 5.0-9.0 [facility] Comment on above: Performed By: #### 1 5599656, 9705856, 9546587, 1429791, 03339556 #### [facility] [address] [place] [address] Protein (U) [Mass/Vol] Negative Normal Negative [facility] Comment on above: Performed By: #### 1 8838963, 6636847, 5462026, 2942166, 72862622 #### [facility] [address] [place] [address] Specific gravity (U) [Rel density] 1.025 Invalid Interpretation Code 1.005-1.030 [facility] Comment on above: Performed By: #### 1 3294617, 9031742, 3371899, 0141594, 63033247 #### [facility] [address] [place] [address] Type of Urine collection method Clean Catch Normal [facility] Comment on above: Performed By: #### 1 0337336, 6037874, 7159915, 5364015, 65442026 #### [facility] [address] [place] [address] Urobilinogen Qn (U) 0.2 {[place]'U}/dL Normal 0.0-1.0 [facility] Comment on above: Performed By: #### 1 1557679, 3247853, 5865487, 5369641, 33342626 #### [facility] [address] [place] [address] WBC Auto Ql (U) 2+ Abnormal Negative [facility] Comment on above: Performed By: #### 1 6045030, 8887013, 4429590, 5834168, 84970139 #### [facility] [address] [place] [address] UrinalysisOrdered By: Lizet Saab on 06-21-2023 WBC LM.HPF (Urine sed) [#/Area] /[HPF] Abnormal 0-5 [facility] UA Auto SS Comment on above: Performed By: #### 1 5373788, 7886983, 6790984, 1838713, 37410673 #### [facility] [address] [place] [address] Nonvisit Note - PTon 023 Nonvisit Note - PT Patient showed up at 11:00 (30 minutes late). Her ride misunderstood the time and thought the appointment was at 11:00 instead of 10:30. Normal [facility] Nonvisit Note - PTon 023 Nonvisit Note - [place] [facility] called and said they would not be able to pick her up. Her daughter will out of town so she is unable to get her either. Normal [facility] PT - Assessmentson 3 PT - Assessments [id number]. [id number] Normal [facility] PT - Assessments [id number]. [id number] Normal [facility] C Urineon 05-13-2023 Bacteria identified Cx Nom [...] Locations R1: This test was performed at: [facility], [address] [place] [address], [address]- , [place], Normal [facility] Comment on above: Performed By: #### 1 9476618, 8654308, 2831803, 4489981, 96468331 #### [facility] [address] [place] [address] Physician Orderon 05-11-2023 Physician Order [id number]:[id number] Normal [facility] URINALYSISOrdered By: Cuate Rea on 05-11-2023 Bacteria [...] [Mass/Vol] Negative (05/11/23 10:10 AM) Normal Negative [facility] UA Auto SS Hemoglobin Ql (U) Negative (05/11/23 10:10 AM) Normal Negative [facility] UA Auto SS Ketones (U) [Mass/Vol] Negative (05/11/23 10:10 AM) Normal Negative [facility] UA Auto SS Speedway.plasma/Speedway. RBC (Bld) [Mass ratio] 0-3 /HPF Normal 0-3/HPF [facility] UA A uto SS Nitrite Ql (U) Negative (05/11/23 10:10 AM) Normal Negative [facility] UA Auto SS pH (U) 8.0 *NA* (05/11/23 10:10 AM) Invalid Interpretation Code 5.0 - 9.0 [facility] UA Auto SS Protein (U) [Mass/Vol] Negative (05/11/23 10:10 AM) Normal Negative [facility] UA Auto SS Specific gravity (U) [Rel density] 1.015 *NA* (05/11/23 10:10 AM) Invalid Interpretation Code 1.005 - 1.030 [facility] UA Auto SS UA Spec Desc Clean Catch (05/11/23 10:10 AM) Normal [facility] UA Auto SS Urobilinogen Qn (U) 0.8071718 {[place]uba'U}/dL Normal 0.0 - 1.0 EU/dL [facility] UA Auto SS WBC Auto Ql (U) Negative (05/11/23 10:10 AM) Normal Negative [facility] UA Auto SS WBC LM.HPF (Urine sed) [#/Area] 0-5 /HPF Normal 0-5/HPF [facility] UA Auto SS Urinalysison 05-11-2023 Bacteria LM Ql (Urine sed) 2+ /HPF Abnormal Trace [facility] Comment on above: Performed By: #### 1 0613359, 9694946, 9027902, 6542913, 80700954 #### [facility] [address] [place] [address] Bilirubin Ql (U) Negative Normal Negative [facility] Comment on above: Performed By: #### 1 5350974, 9498942, 6258919, 7954211, 41105781 #### [facility] [address] [place] [address] Clarity (U) SL CLOUDY Abnormal Clear [facility] Comment on above: Performed By: #### 1 8976341, 9173456, 1068166, 2993707, 69766171 #### [facility] [address] [place] [address] Color (U) YELLOW Normal Yellow [facility] Comment on above: Performed By: #### 1 9632517, 5576105, 4136026, 8773841, 38192668 #### [facility] [address] [place] [address] Epithelial cells.squamous LM.HPF (Urine sed) [#/Area] 0-2 Normal 0-2 [facility] Comment on above: Performed By: #### 1 2249840, 6204708, 3904592, 1783578, 08970242 #### [facility] [address] [place] [address] Glucose Test strip (U) [Mass/Vol] Negative Normal Negative [facility] Comment on above: Performed By: #### 1 2625354, 5207537, 5133417, 4224103, 88520761 #### [facility] [address] [place] [address] Hemoglobin Ql (U) Negative Normal Negative [facility] Comment on above: Performed By: #### 1 5271269, 1063322, 9296909, 7359882, 25281748 #### [facility] [address] [place] [address] Ketones (U) [Mass/Vol] Negative Normal Negative [facility] Comment on above: Performed By: #### 1 8190156, 5554498, 5375793, 5585305, 54404147 #### [facility] [address] [place] [address] Speedway.plasma/Speedway. RBC (Bld) [Mass ratio] 0-3 Normal 0-3 [facility] Comment on above: Performed By: #### 1 [id number], 0963173, 6888114, 8064091, [id number] #### [facility] [address] [place] [address] Nitrite Ql (U) Negative Normal Negative [facility] Comment on above: Performed By: #### 1 3904104, 1377220, 9689631, 5295963, 39620325 #### [facility] [address] [place] [address] pH (U) 8.0 [pH] Invalid Interpretation Code 5.0-9.0 [facility] Comment on above: Performed By: #### 1 4051479, 6335779, 6744938, 6200370, 62228400 #### [facility] [address] [place] [address] Protein (U) [Mass/Vol] Negative Normal Negative [facility] Comment on above: Performed By: #### 1 6855561, 0590956, 2813243, 3685560, 17141027 #### [facility] [address] [place] [address] Specific gravity (U) [Rel density] 1.015 Invalid Interpretation Code 1.005-1.030 [facility] Comment on above: Performed By: #### 1 [id number], 2776980, 3489980, 1289228, 48127406 #### [facility] [address] [place] [address] Type of Urine collection method Clean Catch Normal [facility] Comment on above: Performed By: #### 1 [id number], 8322462, 9566632, 2818251, 66746277 #### [facility] [address] [place], [place] [address] Urobilinogen Qn (U) 0.2 {Cuba'U}/dL Normal 0.0-1.0 [facility] Comment on above: Performed By: #### 1 [id number], 4458967, 5040713, 7172487, 53819098 #### [facility] [address] [place] [address] WBC Auto Ql (U) Negative Normal Negative [facility] Comment on above: Performed By: #### 1 9219714, 7536473, 6467043, 2908105, 76778205 #### [facility] [address] [place] [address] WBC LM.HPF (Urine sed) [#/Area] 0-5 Normal 0-5 [facility] Comment on above: Performed By: #### 1 9861881, 6679258, 5749849, 7484646, 63354333 #### [facility] [address] [place] [address] Nonvisit Note - PTon 023 Nonvisit Note - PT Daughter called and said that Caridad was dizzy. Normal [facility] Nonvisit Note - PTon 023 Nonvisit Note [...] any abnormal news or sx's from her care-scutcher tender that's there to help her at the [...] HR: 48 bpm, & BP: 138/98. Normal [facility] PT - Assessmentson PT - Assessments [id number]#1. 00CD:127 Normal [facility] PT - Assessments [id number]#1. 00CD:127 Normal [facility] PT - Home Exercise Programon 04-25-2023 PT - Home Exercise Program [id number]#1.0 0CD:127 Normal [facility] Alanine aminotransferase [En zymatic activity/volume] in Serum or PlasmaOrdered By: Carline Jackson on 04-05-2023 ALT [Catalytic activity/Vol] 23 U/L [facility] Albumin [Mass/volume] in Ser um or Plasma by Bromocresol green (BCG) dye binding methoOrdered By: Carline Jackson on 04-05-2023 Albumin BCG dye [Mass/Vol] 3.5 g/dL 3.5-5.7 [facility] Alkaline phosphatase [Enzyma tic activity/volume] in Serum or PlasmaOrdered By: Carline Jackson on 04-05-2023 ALP [Catalytic activity/Vol] 69 U/L 34-104 [facility] Aspartate aminotransferase [ Enzymatic activity/volume] in Serum or PlasmaOrdered By: Carline Jackson on 04-05-2023 AST [Catalytic activity/Vol] 45 U/L 13-39 [facility] Basophils Auto (Bld) [#/Vol] Ordered By: Carline Jackson on 04-05-2023 Basophils (Bld) [#/Vol] 0.0 10*3/uL 0.0-0.2 [facility] Basophils/100 WBC Auto (Bld) Ordered By: Carline Jackson on 04-05-2023 Basophils/100 WBC (Bld) 0.7 % . F [facility] Bilirubin.total [Mass/volume ] in Serum or PlasmaOrdered By: Carline Jackson on 04-05-2023 Bilirubin [Mass/Vol] 1.0 mg/dL 0.3-1.0 [facility] Calcium [Mass/volume] in Ser um or PlasmaOrdered By: Carline Jackson on 04-05-2023 Calcium [Mass/Vol] 8.6 mg/dL 8.6-10.3 [facility] Carbon dioxide, total [Moles /volume] in Serum or PlasmaOrdered By: Carline Jackson on 04-05-2023 CO2 [Moles/Vol] 25.2 mmol/L 21.0-31.0 [facility] Chloride [Moles/volume] in S marianna or PlasmaOrdered By: Carline Jackson on 04-05-2023 Chloride [Moles/Vol] 99 mmol/L 98-107 [facility] Creatinine [Mass/volume] in Serum or PlasmaOrdered By: Carline Jackson on 04-05-2023 Creatinine [Mass/Vol] 0.95 mg/dL 0.60-1.20 [facility] Eosinophils Auto (Bld) [#/Vo l]Ordered By: Carline Jackson on 04-05-2023 Eosinophils (Bld) [#/Vol] 0.1 10*3/uL 0.0-0.45 [facility] Eosinophils/100 WBC Auto (Bl d)Ordered By: Carline Jackson on 04-05-2023 Eosinophils/100 WBC (Bld) 2.1 % . [facility] Erythrocyte distribution wid th Auto (RBC) [Ratio]Ordered By: Carline Jackson on 04-05-2023 Erythrocyte distribution width (RBC) [Ratio] 13.7 % 11.9-15.3 [facility] Erythrocyte sedimentation ra te by Photometric methodOrdered By: Carline Jackson on 04-05-2023 ESR Photometric method (d) [Velocity] 47 mm/hr [facility] Globulin Calc (S) [Mass/Vol] Ordered By: Carline Jackson on 04-05-2023 Globulin (S) [Mass/Vol] 4.9 g/dL [facility] Glucose [Mass/volume] in Ser um or PlasmaOrdered By: Carline Jackson on 04-05-2023 Glucose [Mass/Vol] 100 mg/dL 70-100 [facility] Comment on above: ADA recommended refe rence rangeRandom Glucose Reference Range is dependent on time and content of last meal. Glucose of more than 200 mg/dL in a nonstressed, ambulatory subject supports the diagnosis of Diabetes Mellitus. Hematocrit Auto (Bld) [Volum e fraction]Ordered By: Carline Jackson on 04-05-2023 Hematocrit (Bld) [Volume fraction] 38.5 % 34.0-46.4 [facility] Hemoglobin [Mass/volume] in BloodOrdered By: Carline Jackson on 04-05-2023 Hemoglobin (Bld) [Mass/Vol] 13.0 g/dL 11.8-15.4 [facility] Leukocytes [#/volume] correc kala for nucleated erythrocytes in Blood by Automated counOrdered By: Carline Jackson on 04-05-2023 WBC corrected for nucl RBC Auto (Bld) [#/Vol] 5.2 10*3/uL 3.8-11.6 [facility] Lymphocytes Auto (Bld) [#/Vo l]Ordered By: Carline Jackson on 04-05-2023 Lymphocytes (Bld) [#/Vol] 1.9 10*3/uL 1.00-4.8 [facility] Lymphocytes/100 WBC Auto (Bl d)Ordered By: Carline Jackson on 04-05-2023 Lymphocytes/100 WBC (Bld) 36.4 % . [facility] MCH Auto (RBC) [Entitic mass ]Ordered By: Carline Jackson on 04-05-2023 MCH (RBC) [Entitic mass] 32.3 pg 24.7-34.3 [facility] MCHC Auto (RBC) [Mass/Vol]Or dered By: Carline Jackson on 04-05-2023 MCHC (RBC) [Mass/Vol] 33.7 g/dL 32.0-35.0 [facility] MCV Auto (RBC) [Entitic vol] Ordered By: Carline Jackson on 04-05-2023 MCV (RBC) [Entitic vol] 95.9 fL 80-100 [facility] Monocytes Auto (Bld) [#/Vol] Ordered By: Carline Jackson on 04-05-2023 Monocytes (Bld) [#/Vol] 0.4 10*3/uL 0.0-0.8 [facility] Monocytes/100 WBC Auto (Bld) Ordered By: Carline Jackson on 04-05-2023 Monocytes/100 WBC (Bld) 6.8 % . F [facility] Neutrophils Auto (Bld) [#/Vo l]Ordered By: Carline Jackson on 04-05-2023 Neutrophils (Bld) [#/Vol] 2.8 10*3/uL 1.8-7.7 [facility] Neutrophils/100 WBC Auto (Bl d)Ordered By: Carline Jackson on 04-05-2023 Neutrophils/100 WBC (Bld) 54.0 % . [facility] No Panel InformationOrdered By: Carline Jackson on 04-05-2023 Estimated GFR (CKD-EPI) > 60.0 mL/Min [facility] Pharmacy Creatinine Clearance (Chem N/A [facility] Nucleated erythrocytes [Pres ence] in Blood by Automated countOrdered By: Carline Jackson on 04-05-2023 Nucleated RBC Auto Ql (Bld) 0.2 /100{WBC} 0-0.5 [facility] Platelet mean volume Auto (B ld) [Entitic vol]Ordered By: Carline Jackson on 04-05-2023 Platelet mean volume (Bld) [Entitic vol] 8.6 fL 6.3-10.7 [facility] Platelets Auto (Bld) [#/Vol] Ordered By: Carline Jackson on 04-05-2023 Platelets (Bld) [#/Vol] 186 10*3/uL 150-450 [facility] Potassium [Moles/volume] in Serum or PlasmaOrdered By: Carline Jackson on 04-05-2023 Potassium [Moles/Vol] See comment 3.5-5.1 [facility] Comment on above: Specimen hemolyzed, redraw requested Protein [Mass/volume] in Ser um or PlasmaOrdered By: Carline Jackson on 04-05-2023 Protein [Mass/Vol] 8.4 g/dL 6.4-8.9 [facility] RBC Auto (Bld) [#/Vol]Ordere d By: Carline Jackson on 04-05-2023 RBC (Bld) [#/Vol] 4.01 10*6/uL 3.60-5.00 [facility] Serum or plasma albumin/glob ulin mass ratioOrdered By: Carline Jackson on 04-05-2023 Albumin/Globulin [Mass ratio] 0.7 {ratio} [facility] Serum or plasma anion gap de terminationOrdered By: Carline Jackson on 04-05-2023 Anion gap [Moles/Vol] TNP [facility] Comment on above: Test not performed Sodium [Moles/volume] in Ser um or PlasmaOrdered By: Carline Jackson on 04-05-2023 Sodium [Moles/Vol] 130 mmol/L 136-145 [facility] Urea nitrogen [Mass/volume] in Serum or PlasmaOrdered By: Carline Jackson on 04-05-2023 Urea nitrogen [Mass/Vol] 20 mg/dL 03-01 [facility] WBC Auto (Bld) [#/Vol]Ordere d By: Carline Jackson on 04-05-2023 WBC (Bld) [#/Vol] 5.2 10*3/uL 3.8-11.6 [facility] C Urineon 04-01-2023 Bacteria identified Cx Nom [...] Locations R1: This test was performed at: [facility], [address] [place] [address], [address] , , [facility] Comment on above: Performed By: #### 2 [id number] ####[place] [address] Nonvisit Note - PTon 023 Nonvisit Note - PT works better than tuesday per daughter Normal [facility] PT - Assessmentson 3 PT - Assessments ..[id number]#1. 00CD:127 [facility] PT - Assessments [id number]#1. 00CD:127 Normal [facility] Physician Orderon 03-30-2023 Physician Order [id number]#1. 00CD:127 Normal [facility] UA With Cult Reflexon 2022 Bacteria LM Ql (Urine sed) 3+ /HPF Abnormal Trace [facility] Comment on above: Performed By: #### 1 [id number], 7131432, 8333634, 8725656, 79550566 #### [facility] [address] [place] [address] Bilirubin Ql (U) Negative Normal Negative [facility] Comment on above: Performed By: #### 1 9026001, 5741673, 5388098, 1585448, 42721045 #### [facility] [address] [place] [address] Clarity (U) CLOUDY Abnormal Clear [facility] Comment on above: Performed By: #### 1 1067449, 8237203, 0590625, 7763405, 58510902 #### [facility] [address] [place] [address] Color (U) YELLOW Normal Yellow [facility] Comment on above: Performed By: #### 1 9755844, 1216122, 5565654, 2271884, 38483283 #### [facility] [address] [place] [address] Epithelial cells.squamous LM.HPF (Urine sed) [#/Area] 0-2 Normal 0-2 [facility] Comment on above: Performed By: #### 1 2837620, 3198151, 2835508, 0165161, 86180508 #### [facility] [address] [place] [address] Glucose Test strip (U) [Mass/Vol] Negative Normal Negative [facility] Comment on above: Performed By: #### 1 2922001, 6034583, 8353169, 3985860, 88639581 #### [facility] [address] [place] [address] Hemoglobin Ql (U) Negative Normal Negative [facility] Comment on above: Performed By: #### 1 8286265, 4826695, 9146998, 7196909, 45528278 #### [facility] [address] [place] [address] Ketones (U) [Mass/Vol] Negative Normal Negative [facility] Comment on above: Performed By: #### 1 0832323, 0460656, 9826359, 6236817, 87476259 #### [facility] [address] [place] [address] Speedway.plasma/Speedway. RBC (Bld) [Mass ratio] 0-3 Normal 0-3 [facility] Comment on above: Performed By: #### 1 2050152, 1492073, 4638599, 2441715, 89629568 #### [facility] [address] [place] [address] Nitrite Ql (U) Positive Abnormal Negative [facility] Comment on above: Performed By: #### 1 9708699, 9619666, 4363875, 4965051, 91757309 #### [facility] [address] [place], [place] [address] pH (U) 7.0 [pH] Invalid Interpretation Code 5.0-9.0 [facility] Comment on above: Performed By: #### 1 0701662, 9603785, 0891207, 0155437, 25937632 #### [facility] [address] [place] [address] Protein (U) [Mass/Vol] Negative Normal Negative [facility] Comment on above: Performed By: #### 1 4188735, 9596562, 1078695, 0327243, 74827232 #### [facility] [address] [place], [place] [address] Specific gravity (U) [Rel density] 1.020 Invalid Interpretation Code 1.005-1.030 [facility] Comment on above: Performed By: #### 1 3563194, 8797786, 5655723, 6070633, 84568585 #### [facility] [address] [place], [place] [address] Type of Urine collection method Clean Catch Normal [facility] Comment on above: Performed By: #### 1 9488938, 8310043, 9342075, 5168502, 15569951 #### [facility] [address] [place], [place] [address] Urobilinogen Qn (U) 1.0 {Cuba'U}/dL Normal 0.0-1.0 [facility] Comment on above: Performed By: #### 1 5956056, 1828525, 0596225, 2948111, 41125671 #### [facility] [address] [place] [address] WBC Auto Ql (U) 1+ Abnormal Negative [facility] Comment on above: Performed By: #### 1 3722053, 0536837, 7599408, 3666418, 57006541 #### [facility] [address] [place] [address] WBC LM.HPF (Urine sed) [#/Area] /[HPF] Abnormal 0-5 [facility] Comment on above: Performed By: #### 1 5674465, 0288351, 8555620, 8440265, 25561172 #### [facility] [address] [place] [address] URINALYSISOrdered By: Laura Sharp on 03-30-2023 Bacteria [...] AM) Normal Negative [facility] UA Auto SS Speedway.plasma/Speedway. RBC (Bld) [Mass ratio] 0-3 /HPF Normal 0-3/HPF [facility] UA A uto SS Nitrite Ql (U) Positive *ABN* (03/30/23 4:45 AM) Invalid Interpretation Code Negative [facility] UA Auto SS pH (U) 7.0 *NA* (03/30/23 4:45 AM) Invalid Interpretation Code 5.0 - 9.0 [facility] UA Auto SS Protein (U) [Mass/Vol] Negative (03/30/23 4:45 AM) Normal Negative [facility] UA Auto SS Specific gravity (U) [Rel density] 1.020 *NA* (03/30/23 4:45 AM) Invalid Interpretation Code 1.005 - 1.030 [facility] UA Auto SS UA Spec Desc Clean Catch (03/30/23 4:45 AM) Normal [facility] UA Auto SS Urobilinogen Qn (U) 1.9838465 {Cuba'U}/dL Normal 0.0 - 1.0 EU/dL [facility] UA Auto SS WBC Auto Ql (U) 1+ *ABN* (03/30/23 4:45 AM) Invalid Interpretation Code Negative [facility] UA Auto SS WBC LM.HPF (Urine sed) [#/Area] /[HPF] Invalid Interpretation Code 0-5/HPF [facility] UA Auto SS Family Medicine Office/Clini c Noteon 03-24-2023 Family Medicine Office/Clinic Note Chief Complaint TCU Discharge History of Present Illness Patient is being seen today for a discharge visit. TCU ADMIT from [facility] 03/10?7 presented after fall at [...] diphtheria/pertussis, favian (more content not included)... Normal [facility] Comment on above: Result Comment: Elec tronically Signed By: Immanuel HOBSON, Nan Cline.anusha\Date and Time Signed: 03/24/23 11:48 EDT Family Medicine Office/Clini c Noteon 03-16-2023 Family Medicine Office/Clinic Note History of Present Illness TCU ADMIT from [facility] 03/10?7 presented after fall at [...] ischemic changes, possible lacunar infarcts. Discharge for ST rehab stay. Had OP PT in January, for falls, broken toe. Hb 12.7 CR 0.7 ALB 2.9 PMHx- dementia, OA, anxiety depression, DM (?) no meds, A1c 5.3, NAWAF, history of psoriatic arthritis on Remicade. Nonsustained VT on Holter Dec, 2021, nl lexiscan. Hx alcohol abuse. nonsmoker. PCP Dr. Edmond Pacheco Psychiatry Dr. Faustin Neurologist LAUREN Rheumatology Dr. Taylor Dtr Linh Riley, BOARD WRITER Physical Exam Pleasant, talkative obese WF seated [...] 7. 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 Mazariegos Other intermediate manager (current) drug therapy (Z79.899: Other usp (current) drug therapy) Follow-up No qualifying data [...] mg= 1 (more content not included)... Normal [facility] Comment on above: Result Comment: Elec tronically Signed By: PASCALE RODRIGUEZ, Inderjit\.br\Date and Time Signed: 03/16/23 21:17 EDT Insurance Correspondence Off iceon 03-16-2023 Insurance Correspondence Office [id number]#[id number] 0CD:127 Normal [facility] CHEMISTRYOrdered By: SYSTEM SYSTEM on 03-11-2023 Anion gap [Moles/Vol] 5 mmol/L Low 6 - 16 mEq/L [facility] Remisol Calcium [Mass/Vol] 8.2 mg/dL Low 8.9 - 11. 1 mg/dL [facility] Remisol Chloride [Moles/Vol] 106 mmol/L Normal 101 - 1 11 mmol/L [facility] Remisol CO2 [Moles/Vol] 30 mmol/L Normal 21 - 31 mmol/L [facility] Remisol Creatinine [Mass/Vol] 0.7 mg/dL Normal 0.5 - 1.3 mg/dL [facility] Remisol GFR/1.73 sq M.predicted among non-blacks MDRD (S/P/Bld) [Vol rate/Area] 87 mL/min/1.73 m2 Normal >=59mL/min/ 1.73 m2 [facility] Chem S Glucose [Mass/Vol] 95 mg/dL Normal 55 - 199 mg/dL [facility] Remisol Magnesium [Mass/Vol] 1.8 mg/dL Normal 1.3 - 2 .4 mg/dL [facility] Remisol Potassium [Moles/Vol] 3.9 mmol/L Normal 3.5 - 5.3 mmol/L [facility] Remisol Sodium [Moles/Vol] 137 mmol/L Normal 135 - 145 mmol/L [facility] Remisol Urea nitrogen [Mass/Vol] 12 mg/dL Normal 5 - 21 mg/dL [facility] [...] - 16 mEq/L [facility] Remisol Calcium [Mass/Vol] 8.6 mg/dL Low 8.9 - 11. 1 mg/dL [facility] Remisol Chloride [Moles/Vol] 101 mmol/L Normal 101 - 1 11 mmol/L [facility]isol CO2 [Moles/Vol] 28 mmol/L Normal 21 - 31 mmol/L [facility] Remisol Creatinine [Mass/Vol] 0.7 mg/dL Normal 0.5 - 1.3 mg/dL [facility] Remisol GFR/1.73 sq M.predicted among non-blacks MDRD (S/P/Bld) [Vol rate/Area] 87 mL/min/1.73 m2 Normal >=59mL/min/ 1.73 m2 [facility] Chem S Glucose [Mass/Vol] 102 mg/dL Normal 55 - 199 mg/dL [facility] Remisol Potassium [Moles/Vol] 3.9 mmol/L Normal 3.5 - 5.3 mmol/L [facility] Remisol Sodium [Moles/Vol] 135 mmol/L Normal 135 - 145 mmol/L [facility] Remisol Urea nitrogen [Mass/Vol] 10 mg/dL Normal 5 - 21 mg/dL [facility] Remisol Urea nitrogen/Creatinine [Mass ratio] 14 mg/mg Normal 10 - 20 [facility] Remisol CHEMISTRYOrdered By: Lab ROP User on 03-10-2023 Glucose [Mass/Vol] 109 mg/dL High 55 - 99 mg/dL [facility] POC Subsection POC Device SN [id number] Invalid Interpretation Code [facility] POC Subsection POC User ID [id number] Invalid Interpretation Code [facility] POC Subsection POC Username ELIDA RIVERA Invalid Interpretation Code [facility] POC Subsection COAGULATIONOrdered By: Ricarda Saab on 03-10-2023 aPTT Coag (PPP) [Time] 35.2 s Normal 25.1 - 36.5 second(s) [facility] Auto Coag INR Coag (PPP) [Relative time] 1.1 {INR} Invalid Interpretation Code [facility] Auto Coag PT Coag (PPP) [Time] 12.4 s Normal 9.4 - 1 2.5 second(s) [facility] Auto Coag HEMATOLOGYOrdered By: SYSTEM SYSTEM on 03-10-2023 Basophils/100 WBC (Bld) 0.9 % Normal 0.0 - 2.0 % [facility] HemeAutoSS Basophils/Leukocytes Auto (Bld) [Pure # fraction] 0.0 E9/L Normal 0.0 - 0.2 E9/L [facility] HemeAutoSS Eosinophils/100 WBC (Bld) 1.9 % Normal [...] PM) Normal Negative [facility] UA Auto SS Speedway.plasma/Speedway. RBC (Bld) [Mass ratio] 0-3 /HPF Normal [...] [facility] UA Auto SS Urobilinogen Qn (U) 4.2393371 {[place]uba'U}/dL Invalid Interpretation Code 0.0 - 1.0 EU/dL [facility] UA Auto SS WBC Auto Ql (U) Negative (03/10/23 12:34 PM) Normal Negative [facility] UA Auto SS WBC LM.HPF (Urine sed) [#/Area] 0-5 /HPF Normal 0-5/HPF [facility] UA Auto SS Klarissa 02-07-2023 DAVID Telephone ([facility]) CARIDAD CARIAS I ([id number]) 1940 F Date Time Provider Department 02/07/23 QUIANA WATERMAN During your visit today, we recorded the following information about you: Blaise Higginbotham Pss 02/07/2023 12:09 PM Signed Dtr, Linh ALATORRE on [facility] Nurse Line on 02/10 @9:53A. Linh states pt was recently seen by the CAMPUS ADMINISTRATIVE ASSISTANT. She is wondering if she can get a Report sent to pt PCP, Tobi Pacheco in [place], [place]. Linh is POA and requesting a return call back at . Thank you, Blaise Mohamud RN 02/07/2023 12:56 PM Signed RN called daughter Linh back, no answer, left a detailed message that we will need the fax number to sent the requested notes to the new PCP Tobi Pacheco, [place], [place]. Joyce oMhamud RN Allergies As of Date: 02/07/2023 Noted Allergy Reaction CORTISONE 05/20/2017 14 - Other: See Comments Comments: Spinal fluid suppressed MEDROL DOSE PACK (METHYLPREDNISOL*08/31 14 - Other: See Comments Comments: Severe headaches Date Reviewed: 01/19/2023 Reviewed by: Coty Duque RN - Fully Assessed Reason for Visit: Results [95] Cmt: Pt daughter is requesting a copy of report Automation Analyst - Other [3602] Prescriptions as of 02/07/2023 [...] eyes [H35.373]05/20/2017 PCO (posterior capsular opacification), bilater*11/16/2017 [id number] 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.529] 01/28/2020 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 Tobi Pacheco to [facility] [phone]. Joyce Mohamud RN Allergies As of Date: 02/07/2023 Noted Allergy Reaction CORTISONE 05/20/2017 14 - Other: See Comments Comments: Spinal fluid suppressed MEDROL DOSE PACK (METHYLPREDNISOL*08/31 14 - Other: See Comments Comments: Severe headaches Date Reviewed: 01/19/2023 Reviewed by: Coty Duque RN - Fully Assessed Reason for Visit: Appointment [[id number]] Cmt: Returned call and gave Fax Number to Dr. 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 Call [phone] and select option 0 for all other services AND request senior resources. When reviewing the list of communities, please reference the abbreviation gonzalez listed below. IL (Independent Living) AL (Assisted Living) AL-MC (Assisted Living with secure memory care unit) AL-MS (Assisted Living with memory care support) SN-Assisted LTC-MC (long-term care with secure memory care unit) LTC-MS (long-term care with memory support) [facility] ([place]; AL; SN) *Pet friendly [address] [place] [address] [facility] ([place]; SN) *Pets welcome [address] [place] [address] [facility] ([facility]; SN) *Pet friendly for small pets [address] [place] [address] [facility] ([place]; AL; AL-MC; SN) *Possibly pet friendly [address] [facility] [place] [address] [facility] (MC; SN; LT) [address], [place] [address] [facility] ([place]; [place]) [address] [facility] [place], [place] [id number] [facility] ([place]; AL; AL-MC; SN; [facility]) [address] [place], [place] [id number] [facility] (AL) [address] [place] [address] [facility] [employer] [facility] ([place]; AL; AL-MC; SN) [address] [place] [address] SW will remain available. 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 Normal [facility] Alanine aminotransferase [En zymatic activity/volume] in Serum or PlasmaOrdered By: Carline Jackson on 01-20-2023 ALT [Catalytic activity/Vol] 18 U/L 7-52 [facility] Albumin [Mass/volume] in Ser um or Plasma by Bromocresol green (BCG) dye binding methoOrdered By: Carline Jackson on 01-20-2023 Albumin BCG dye [Mass/Vol] 3.3 g/dL 3.5-5.7 [facility] Alkaline phosphatase [Enzyma tic activity/volume] in Serum or PlasmaOrdered By: Carline Jackson on 01-20-2023 ALP [Catalytic activity/Vol] 80 U/L 34-104 [facility] Aspartate aminotransferase [ Enzymatic activity/volume] in Serum or PlasmaOrdered By: Carline Jackson on 01-20-2023 AST [Catalytic activity/Vol] 38 U/L 13-39 [facility] Basophils Auto (Bld) [#/Vol] Ordered By: Carline Jacksno on 01-20-2023 Basophils (Bld) [#/Vol] 0.0 10*3/uL 0.0-0.2 [facility] Basophils/100 WBC Auto (Bld) Ordered By: Carline Jackson on 01-20-2023 Basophils/100 WBC (Bld) 0.7 % . F [facility] Bilirubin.total [Mass/volume ] in Serum or PlasmaOrdered By: Carline Jackson on 01-20-2023 Bilirubin [Mass/Vol] 0.8 mg/dL 0.3-1.0 [facility] Calcium [Mass/volume] in Ser um or PlasmaOrdered By: Carline Jackson on 01-20-2023 Calcium [Mass/Vol] 8.4 mg/dL 8.6-10.3 [facility] Carbon dioxide, total [Moles /volume] in Serum or PlasmaOrdered By: Carline Jackson on 01-20-2023 CO2 [Moles/Vol] 26.8 mmol/L 21.0-31.0 [facility] Chloride [Moles/volume] in S marianna or PlasmaOrdered By: Carline Jackson on 01-20-2023 Chloride [Moles/Vol] 103 mmol/L 98-107 [facility] Creatinine [Mass/volume] in Serum or PlasmaOrdered By: Carline Jackson on 01-20-2023 Creatinine [Mass/Vol] 0.64 mg/dL 0.60-1.20 [facility] Eosinophils Auto (Bld) [#/Vo l]Ordered By: Carline Jackson on 01-20-2023 Eosinophils (Bld) [#/Vol] 0.2 10*3/uL 0.0-0.45 [facility] Eosinophils/100 WBC Auto (Bl d)Ordered By: Carline Jackson on 01-20-2023 Eosinophils/100 WBC (Bld) 3.4 % . [facility] Erythrocyte distribution wid th Auto (RBC) [Ratio]Ordered By: Carline Jackson on 01-20-2023 Erythrocyte distribution width (RBC) [Ratio] 13.5 % 11.9-15.3 [facility] Erythrocyte sedimentation ra te by Photometric methodOrdered By: Carline Jackson on 01-20-2023 ESR Photometric method (d) [Velocity] 42 mm/hr 0-29 [facility] Globulin Calc (S) [Mass/Vol] Ordered By: Carline Jackson on 01-20-2023 Globulin (S) [Mass/Vol] 4.4 g/dL F [facility] Glucose [Mass/volume] in Ser um or PlasmaOrdered By: Carline Jackson on 01-20-2023 Glucose [Mass/Vol] 79 mg/dL 70-100 [facility] Comment on above: ADA recommended refe rence rangeRandom Glucose Reference Range is dependent on time and content of last meal. Glucose of more than 200 mg/dL in a nonstressed, ambulatory subject supports the diagnosis of Diabetes Mellitus. Hematocrit Auto (Bld) [Volum e fraction]Ordered By: Carline Jackson on 01-20-2023 Hematocrit (Bld) [Volume fraction] 37.1 % 34.0-46.4 [facility] Hemoglobin [Mass/volume] in BloodOrdered By: Carline Jackson on 01-20-2023 Hemoglobin (Bld) [Mass/Vol] 12.5 g/dL 11.8-15.4 [facility] Leukocytes [#/volume] correc kala for nucleated erythrocytes in Blood by Automated counOrdered By: Carline Jackson on 01-20-2023 WBC corrected for nucl RBC Auto (Bld) [#/Vol] 4.8 10*3/uL 3.8-11.6 [facility] Lymphocytes Auto (Bld) [#/Vo l]Ordered By: Carline Jackson on 01-20-2023 Lymphocytes (Bld) [#/Vol] 2.0 10*3/uL 1.00-4.8 [facility] Lymphocytes/100 WBC Auto (Bl d)Ordered By: Carline Jackson on 01-20-2023 Lymphocytes/100 WBC (Bld) 41.0 % . [facility] MCH Auto (RBC) [Entitic mass ]Ordered By: Carline Jackson on 01-20-2023 MCH (RBC) [Entitic mass] 32.5 pg 24.7-34.3 [facility] MCHC Auto (RBC) [Mass/Vol]Or dered By: Carline Jackson on 01-20-2023 MCHC (RBC) [Mass/Vol] 33.8 g/dL 32.0-35.0 [facility] MCV Auto (RBC) [Entitic vol] Ordered By: Carline Jackson on 01-20-2023 MCV (RBC) [Entitic vol] 96.1 fL 80-100 [facility] Monocytes Auto (Bld) [#/Vol] Ordered By: Carline Jackson on 01-20-2023 Monocytes (Bld) [#/Vol] 0.4 10*3/uL 0.0-0.8 [facility] Monocytes/100 WBC Auto (Bld) Ordered By: Carline Jackson on 01-20-2023 Monocytes/100 WBC (Bld) 7.9 % . F [facility] Neutrophils Auto (Bld) [#/Vo l]Ordered By: Carline Jackson on 01-20-2023 Neutrophils (Bld) [#/Vol] 2.2 10*3/uL 1.8-7.7 [facility] Neutrophils/100 WBC Auto (Bl d)Ordered By: Carline Jackson on 01-20-2023 Neutrophils/100 WBC (Bld) 47.0 % . [facility] No Panel InformationOrdered By: Carline Jackson on 01-20-2023 Estimated GFR (CKD-EPI) > 60.0 mL/Min [facility] Pharmacy Creatinine Clearance (Chem N/A [facility] Nucleated erythrocytes [Pres ence] in Blood by Automated countOrdered By: Carline Jackson on 01-20-2023 Nucleated RBC Auto Ql (Bld) 0.2 /100{WBC} 0-0.5 [facility] Platelet mean volume Auto (B ld) [Entitic vol]Ordered By: Carline Jackson on 01-20-2023 Platelet mean volume (Bld) [Entitic vol] 7.8 fL 6.3-10.7 [facility] Platelets Auto (Bld) [#/Vol] Ordered By: Carline Jackson on 01-20-2023 Platelets (Bld) [#/Vol] 174 10*3/uL 150-450 [facility] Potassium [Moles/volume] in Serum or PlasmaOrdered By: Carline Jackson on 01-20-2023 Potassium [Moles/Vol] 4.3 mmol/L 3.5-5.1 [facility] Protein [Mass/volume] in Ser um or PlasmaOrdered By: Carline Jackson on 01-20-2023 Protein [Mass/Vol] 7.7 g/dL 6.4-8.9 [facility] RBC Auto (Bld) [#/Vol]Ordere d By: Carline Jackson on 01-20-2023 RBC (Bld) [#/Vol] 3.86 10*6/uL 3.60-5.00 [facility] Serum or plasma albumin/glob ulin mass ratioOrdered By: Carline Jackson on 01-20-2023 Albumin/Globulin [Mass ratio] 0.8 {ratio} [facility] Serum or plasma anion gap de terminationOrdered By: Carline Jackson on 01-20-2023 Anion gap [Moles/Vol] 8.5 mmol/L 6.0-15.0 [facility] Sodium [Moles/volume] in Ser um or PlasmaOrdered By: Carline Jackson on 01-20-2023 Sodium [Moles/Vol] 134 mmol/L 136-145 [facility] Urea nitrogen [Mass/volume] in Serum or PlasmaOrdered By: Carline Jackson on 01-20-2023 Urea nitrogen [Mass/Vol] 17 mg/dL 7-25 [facility] WBC Auto (Bld) [#/Vol]Ordere d By: Carline Jackson on 01-20-2023 WBC (Bld) [#/Vol] 4.8 10*3/uL 3.8-11.6 [facility] CNOVon 01-19-2023 CNOV Office Visit (PATSY ) CARIDAD CARIAS I ([id number]) 1940 F Date Time Provider Department 01/19/23 12:30 PM QUIANA WATERMAN During your visit today, we recorded the following information about you: Pulse Blood pressure Weight 54/minute 160/81 84.5 kg Quiana Waterman APRN.PHYSICIAN INDUSTRIAL 01/20/2023 12:16 PM Signed Date: January 19, 2023 CARIDAD CARIAS [id number] [facility] [id number] [facility] INITIAL PATIENT EVALUATION Reason for Consult: Cognitive changes, Mobility decline, and Behavioral changes I had the pleasure of seeing this 82 year old year old female at the [facility]. The patient is referred by SELF Patient [...] Activities of Daily Living Lomas Index of Comfort in Activities of Daily Living (A.D.L.) Bathing: [...] be done by another person. (1 POINT) [place] Instrumental Activities of Daily Living Scale (I.A.D.L.) Ability to Use Telephone: Dials a few well-known numbers (1 POINT) Shopping: Needs to be accompanied on any shopping trip (0 POINTS) Food Preparation: Needs to have meals prepare (more content not included)... Normal [facility] CNCOon 12-31-2022 CNCO Letter Text Normal [facility] Basophils Auto (Bld) [#/Vol] Ordered By: Carline Jackson on 09-23-2022 Basophils (Bld) [#/Vol] 0.0 10*3/uL 0.0-0.2 [facility] Basophils/100 WBC Auto (Bld) Ordered By: Carline Jackson on 09-23-2022 Basophils/100 WBC (Bld) 0.7 % . F [facility] Body fluid albumin measureme nt (mass/volume)Ordered By: Calrine Jackson on 09-23-2022 Albumin (Body fld) [Mass/Vol] 2.8 g/dL 3.2-5.5 [facility] Creatinine and Glomerular fi ltration rate.predicted panel (S/P/Bld)Ordered By: Carline Jackson on 09-23-2022 Creatinine [Mass/Vol] 0.74 mg/dL 0.44-1.03 [facility] Eosinophils Auto (Bld) [#/Vo l]Ordered By: Carline Jackson on 09-23-2022 Eosinophils (Bld) [#/Vol] 0.2 10*3/uL 0.0-0.45 [facility] Eosinophils/100 WBC Auto (Bl d)Ordered By: Carline Jackson on 09-23-2022 Eosinophils/100 WBC (Bld) 3.7 % . [facility] Erythrocyte distribution wid th Auto (RBC) [Ratio]Ordered By: Carline Jackson on 09-23-2022 Erythrocyte distribution width (RBC) [Ratio] 13.7 % 11.9-15.3 [facility] Erythrocyte sedimentation ra te by Photometric methodOrdered By: Carline Jackson on 09-23-2022 ESR Photometric method (d) [Velocity] 39 mm/hr 0-29 [facility] Estimated glomerular filtrat ion rate (GFR) non- AmericanOrdered By: Carline Jackson on 09-23-2022 GFR/1.73 sq M.predicted among non-blacks MDRD (S/P/Bld) [Vol rate/Area] > 60 mL/Min [facility] Globulin Calc (S) [Mass/Vol] Ordered By: Carline Jackson on 09-23-2022 Globulin (S) [Mass/Vol] 4.4 g/dL F [facility] Hematocrit Auto (Bld) [Volum e fraction]Ordered By: Carline Jackson on 09-23-2022 Hematocrit (Bld) [Volume fraction] 38.0 % 34.0-46.4 [facility] Hemoglobin [Mass/volume] in BloodOrdered By: Carline Jackson on 09-23-2022 Hemoglobin (Bld) [Mass/Vol] 12.5 g/dL 11.8-15.4 [facility] Leukocytes [#/volume] correc kala for nucleated erythrocytes in Blood by Automated counOrdered By: Carline Jackson on 09-23-2022 WBC corrected for nucl RBC Auto (Bld) [#/Vol] 4.5 10*3/uL 3.8-11.6 [facility] Lymphocytes Auto (Bld) [#/Vo l]Ordered By: Carline Jackson on 09-23-2022 Lymphocytes (Bld) [#/Vol] 1.5 10*3/uL 1.00-4.8 [facility] Lymphocytes/100 WBC Auto (Bl d)Ordered By: Carline Jackson on 09-23-2022 Lymphocytes/100 WBC (Bld) 34.1 % . [facility] MCH Auto (RBC) [Entitic mass ]Ordered By: Carline Jackson on 09-23-2022 MCH (RBC) [Entitic mass] 31.7 pg 24.7-34.3 [facility] MCHC Auto (RBC) [Mass/Vol]Or dered By: Carline Jackson on 09-23-2022 MCHC (RBC) [Mass/Vol] 32.8 g/dL 32.0-35.0 [facility] MCV Auto (RBC) [Entitic vol] Ordered By: Carline Jackson on 09-23-2022 MCV (RBC) [Entitic vol] 96.7 fL 80-100 [facility] Monocytes Auto (Bld) [#/Vol] Ordered By: Carline Jackson on 09-23-2022 Monocytes (Bld) [#/Vol] 0.4 10*3/uL 0.0-0.8 [facility] Monocytes/100 WBC Auto (Bld) Ordered By: Carline Jackson on 09-23-2022 Monocytes/100 WBC (Bld) 8.5 % . F [facility] Neutrophils Auto (Bld) [#/Vo l]Ordered By: Carline Jackson on 09-23-2022 Neutrophils (Bld) [#/Vol] 2.4 10*3/uL 1.8-7.7 [facility] Neutrophils/100 WBC Auto (Bl d)Ordered By: Carline Jackson on 09-23-2022 Neutrophils/100 WBC (Bld) 53.0 % . [facility] No Panel InformationOrdered By: Carline Jackson on 09-23-2022 Estimated GFR () > 60 mL/Min [facility] Comment on above: GFR estimated refere nce range: According to KDOQI guidelines, <60 ml/min/1.73m2 is sufficient to diagnose a patient with chronic kidney disease. Pharmacy Creatinine Clearance (Chem N/A [facility] Nucleated erythrocytes [Pres ence] in Blood by Automated countOrdered By: Carline Jackson on 09-23-2022 Nucleated RBC Auto Ql (Bld) 0.5 /100{WBC} 0-0.5 [facility] Platelet mean volume Auto (B ld) [Entitic vol]Ordered By: Carline Jackson on 09-23-2022 Platelet mean volume (Bld) [Entitic vol] 7.9 fL 6.3-10.7 [facility] Platelets Auto (Bld) [#/Vol] Ordered By: Carline Jackson on 09-23-2022 Platelets (Bld) [#/Vol] 187 10*3/uL 150-450 [facility] Protein [Mass/volume] in Ser um or PlasmaOrdered By: Carline Jackson on 09-23-2022 Protein [Mass/Vol] 7.2 g/dL 6.1-7.9 [facility] RBC Auto (Bld) [#/Vol]Ordere d By: Carline Jackson on 09-23-2022 RBC (Bld) [#/Vol] 3.93 10*6/uL 3.60-5.00 [facility] Serum or plasma alanine robins otransferase measurement without P-5'-P (enzymatic activiOrdered By: Carline Jackson on 09-23-2022 ALT No additional P-5'-P [Catalytic activity/Vol] 26 U/L 10-60 [facility] Serum or plasma albumin/glob ulin mass ratioOrdered By: Carline Jackson on 09-23-2022 Albumin/Globulin [Mass ratio] 0.6 {ratio} [facility] Serum or plasma alkaline rolando sphatase measurement (enzymatic activity/volume)Ordered By: Carline Jackson on 09-23-2022 ALP [Catalytic activity/Vol] 63 U/L 32-92 [facility] Serum or plasma anion gap de terminationOrdered By: Carline Jackson on 09-23-2022 Anion gap [Moles/Vol] 11.3 mmol/L 6.0-15.0 [facility] Serum or plasma aspartate am inotransferase measurement (enzymatic activity/volume)Ordered By: Carline Jackson on 09-23-2022 AST [Catalytic activity/Vol] 50 U/L 10-42 [facility] Serum or plasma calcium saray urement (mass/volume)Ordered By: Carline Jackson on 09-23-2022 Calcium [Mass/Vol] 8.6 mg/dL 8.2-10.2 [facility] Serum or plasma chloride van surement (moles/volume)Ordered By: Carline Jackson on 09-23-2022 Chloride [Moles/Vol] 100 mmol/L 95-114 [facility] Serum or plasma glucose saray urement (mass/volume)Ordered By: Carline Jackson on 09-23-2022 Glucose [Mass/Vol] 105 mg/dL 70-100 [facility] Comment on above: ADA recommended refe rence rangeRandom Glucose Reference Range is dependent on time and content of last meal. Glucose of more than 200 mg/dL in a nonstressed, ambulatory subject supports the diagnosis of Diabetes Mellitus. Serum or plasma potassium me asurement (moles/volume)Ordered By: Carline Jackson on 09-23-2022 Potassium [Moles/Vol] 4.4 mmol/L 3.5-5.1 [facility] Serum or plasma sodium measu rement (moles/volume)Ordered By: Carline Jackson on 09-23-2022 Sodium [Moles/Vol] 134 mmol/L 136-146 [facility] Serum or plasma total biliru bin measurement (mass/volume)Ordered By: Carline Jackson on 09-23-2022 Bilirubin [Mass/Vol] 0.9 mg/dL 0.3-1.2 [facility] Serum or plasma total carbon dioxide measurement (moles/volume)Ordered By: Carline Jackson on 09-23-2022 CO2 [Moles/Vol] 27.1 mmol/L 22.0-30.0 [facility] Serum or plasma urea nitroge n measurement (mass/volume)Ordered By: Carline Jackson on 09-23-2022 Urea nitrogen [Mass/Vol] 10 mg/dL 04-30 [facility] WBC Auto (Bld) [#/Vol]Ordere d By: Carline Jackson on 09-23-2022 WBC (Bld) [#/Vol] 4.5 10*3/uL 3.8-11.6 [facility] Albumin [Mass/volume] in Ser um or PlasmaOrdered By: Sunny Taylor on 07-21-2022 Albumin [Mass/Vol] 2.6 g/dL 3.2-5.5 [facility] Basophils Auto (Bld) [#/Vol] Ordered By: Sunny Taylor on 07-21-2022 Basophils (Bld) [#/Vol] 0.0 10*3/uL 0.0-0.2 [facility] Basophils/100 WBC Auto (Bld) Ordered By: Sunny Taylor on 07-21-2022 Basophils/100 WBC (Bld) 0.6 % . F [facility] Creatinine and Glomerular fi ltration rate.predicted panel (S/P/Bld)Ordered By: Sunny Taylor on 07-21-2022 Creatinine [Mass/Vol] 0.62 mg/dL 0.44-1.03 [facility] Eosinophils Auto (Bld) [#/Vo l]Ordered By: Sunny Taylor on 07-21-2022 Eosinophils (Bld) [#/Vol] 0.1 10*3/uL 0.0-0.45 [facility] Eosinophils/100 WBC Auto (Bl d)Ordered By: Sunny Taylor on 07-21-2022 Eosinophils/100 WBC (Bld) 1.7 % . [facility] Erythrocyte distribution wid th Auto (RBC) [Ratio]Ordered By: Sunny Taylor on 07-21-2022 Erythrocyte distribution width (RBC) [Ratio] 13.4 % 11.9-15.3 [facility] Erythrocyte sedimentation ra te by Photometric methodOrdered By: Sunny Taylor on 07-21-2022 ESR Photometric method (Bld) [Velocity] 38 mm/hr 0-29 [facility] Estimated glomerular filtrat ion rate (GFR) non- AmericanOrdered By: Sunny Taylor on 07-21-2022 GFR/1.73 sq M.predicted among non-blacks MDRD (S/P/Bld) [Vol rate/Area] > 60 mL/Min [facility] Globulin Calc (S) [Mass/Vol] Ordered By: Sunny Taylor on 07-21-2022 Globulin (S) [Mass/Vol] 4.3 g/dL F [facility] Hematocrit Auto (Bld) [Volum e fraction]Ordered By: Sunny Taylor on 07-21-2022 Hematocrit (Bld) [Volume fraction] 37.5 % 34.0-46.4 [facility] Hemoglobin [Mass/volume] in BloodOrdered By: Sunny Taylor on 07-21-2022 Hemoglobin (Bld) [Mass/Vol] 12.5 g/dL 11.8-15.4 [facility] Leukocytes [#/volume] correc kala for nucleated erythrocytes in Blood by Automated counOrdered By: Sunny Taylor on 07-21-2022 WBC corrected for nucl RBC Auto (Bld) [#/Vol] 4.3 10*3/uL 3.8-11.6 [facility] Lymphocytes Auto (Bld) [#/Vo l]Ordered By: Sunny Taylor on 07-21-2022 Lymphocytes (Bld) [#/Vol] 1.7 10*3/uL 1.00-4.8 [facility] Lymphocytes/100 WBC Auto (Bl d)Ordered By: Sunny Taylor on 07-21-2022 Lymphocytes/100 WBC (Bld) 39.7 % . [facility] MCH Auto (RBC) [Entitic mass ]Ordered By: Sunny Taylor on 07-21-2022 MCH (RBC) [Entitic mass] 32.1 pg 24.7-34.3 [facility] MCHC Auto (RBC) [Mass/Vol]Or dered By: Sunny Taylor on 07-21-2022 MCHC (RBC) [Mass/Vol] 33.4 g/dL 32.0-35.0 [facility] MCV Auto (RBC) [Entitic vol] Ordered By: Sunny Taylor on 07-21-2022 MCV (RBC) [Entitic vol] 96.1 fL 80-100 [facility] Monocytes Auto (Bld) [#/Vol] Ordered By: Sunny Taylor on 07-21-2022 Monocytes (Bld) [#/Vol] 0.4 10*3/uL 0.0-0.8 [facility] Monocytes/100 WBC Auto (Bld) Ordered By: Sunny Taylor on 07-21-2022 Monocytes/100 WBC (Bld) 9.2 % . [facility] Neutrophils Auto (Bld) [#/Vo l]Ordered By: Sunny Taylor on 07-21-2022 Neutrophils (Bld) [#/Vol] 2.1 10*3/uL 1.8-7.7 [facility] Neutrophils/100 WBC Auto (Bl d)Ordered By: Sunny Taylor on 07-21-2022 Neutrophils/100 WBC (Bld) 48.8 % . [facility] No Panel InformationOrdered By: Sunny Taylor on 07-21-2022 Estimated GFR () > 60 mL/Min [facility] Comment on above: GFR estimated refere nce range: According to KDOQI guidelines, <60 ml/min/1.73m2 is sufficient to diagnose a patient with chronic kidney disease. Pharmacy Creatinine Clearance (Chem N/A [facility] Nucleated erythrocytes [Pres ence] in Blood by Automated countOrdered By: Sunny Taylor on 07-21-2022 Nucleated RBC Auto Ql (Bld) 0.2 /100{WBC} 0-0.5 [facility] Platelet mean volume Auto (B ld) [Entitic vol]Ordered By: Sunny Taylor on 07-21-2022 Platelet mean volume (Bld) [Entitic vol] 8.1 fL 6.3-10.7 [facility] Platelets Auto (Bld) [#/Vol] Ordered By: Sunny Taylor on 07-21-2022 Platelets (Bld) [#/Vol] 196 10*3/uL 150-450 [facility] Protein [Mass/volume] in Ser um or PlasmaOrdered By: Sunny Taylor on 07-21-2022 Protein [Mass/Vol] 6.9 g/dL 6.1-7.9 [facility] RBC Auto (Bld) [#/Vol]Ordere d By: Sunny Taylor on 07-21-2022 RBC (Bld) [#/Vol] 3.90 10*6/uL 3.60-5.00 [facility] Serum or plasma alanine robins otransferase measurement without P-5'-P (enzymatic activiOrdered By: Sunny Taylor on 07-21-2022 ALT No additional P-5'-P [Catalytic activity/Vol] 26 U/L 10-60 [facility] Serum or plasma albumin/glob ulin mass ratioOrdered By: Sunny Taylor on 07-21-2022 Albumin/Globulin [Mass ratio] 0.6 {ratio} [facility] Serum or plasma alkaline rolando sphatase measurement (enzymatic activity/volume)Ordered By: Sunny Taylor on 07-21-2022 ALP [Catalytic activity/Vol] 65 U/L 32-92 [facility] Serum or plasma anion gap de terminationOrdered By: Sunny Taylor on 07-21-2022 Anion gap [Moles/Vol] 9.3 mmol/L 6.0-15.0 [facility] Serum or plasma aspartate am inotransferase measurement (enzymatic activity/volume)Ordered By: Sunny Taylor on 07-21-2022 AST [Catalytic activity/Vol] 49 U/L 10-42 [facility] Serum or plasma calcium saray urement (mass/volume)Ordered By: Sunny Taylor on 07-21-2022 Calcium [Mass/Vol] 8.2 mg/dL 8.2-10.2 [facility] Serum or plasma chloride van surement (moles/volume)Ordered By: Sunny Taylor on 07-21-2022 Chloride [Moles/Vol] 100 mmol/L 95-114 [facility] Serum or plasma glucose saray urement (mass/volume)Ordered By: Sunny Taylor on 07-21-2022 Glucose [Mass/Vol] 77 mg/dL 70-100 [facility] Comment on above: ADA recommended refe rence rangeRandom Glucose Reference Range is dependent on time and content of last meal. Glucose of more than 200 mg/dL in a nonstressed, ambulatory subject supports the diagnosis of Diabetes Mellitus. Serum or plasma potassium me asurement (moles/volume)Ordered By: Sunny Taylor on 07-21-2022 Potassium [Moles/Vol] 4.9 mmol/L 3.5-5.1 [facility] Serum or plasma sodium measu rement (moles/volume)Ordered By: Sunny Taylor on 07-21-2022 Sodium [Moles/Vol] 131 mmol/L 136-146 [facility] Serum or plasma total biliru bin measurement (mass/volume)Ordered By: Sunny Taylor on 07-21-2022 Bilirubin [Mass/Vol] 0.7 mg/dL 0.3-1.2 [facility] Serum or plasma total carbon dioxide measurement (moles/volume)Ordered By: Sunny Taylor on 07-21-2022 CO2 [Moles/Vol] 26.6 mmol/L 22.0-30.0 [facility] Serum or plasma urea nitroge n measurement (mass/volume)Ordered By: Sunny Taylor on 07-21-2022 Urea nitrogen [Mass/Vol] 8 mg/dL 9- [facility] WBC Auto (Bld) [#/Vol]Ordere d By: Sunny Taylor on 07-21-2022 WBC (Bld) [#/Vol] 4.3 10*3/uL 3.8-11.6 [facility] CHEMISTRYOrdered By: SYSTEM SYSTEM on 06-09-2022 Folate [...] m2 [facility] Chem S Globulin (S) [Mass/Vol] 4.1 g/dL [...] 2.2 E9/L Normal 2.0 - 7.5 E9/L [facility] HEMATOLOGYOrdered By: Lizet Cason on 05-10-2022 Erythrocyte distribution width (RBC) [Ratio] 12.7 % Normal 10.9 - 14.2 % [facility] Hematocrit (Bld) [Volume fraction] 36.2 % Normal 34.0 - 46.0 % [facility] Hemoglobin (Bld) [Mass/Vol] 12.2 g/dL Normal 12.0 - 16.0 gm/dL [facility] MCH (RBC) [Entitic mass] 32.7 pg Normal 27.0 - 34.0 pg [facility] MCHC (RBC) [Mass/Vol] 33.8 g/dL Normal 31.4 - 36.0 gm/dL [facility] MCV (RBC) [Entitic vol] 96.7 fL Normal 80.0 - 100.0 fL [facility] Platelet mean volume (Bld) [Entitic vol] 7.9 fL Normal 6.4 - 10.8 fL [facility] Platelets (Bld) [#/Vol] 167.0 E9/L Normal 150. 0 - 500.0 E9/L [facility] RBC (Bld) [#/Vol] 3.7 E12/L Low 4.3 - 5.9 E12/L [facility] Sed Rate Automated 46 mm/h High 0 - 34 mm/hr [facility] WBC corrected for nucl RBC Auto (Bld) [#/Vol] 4.1 E9/L Normal 4.0 - 11.0 E9/L [facility] Reference Laboratory Testing Ordered By: Generated DomainUser on 05-10-2022 Cortisol [Mass/Vol] 12.9 ug/dL Invalid Interpretation Code [facility] SendOutsSS Comment on above: Result Comment: Liang isol AM 6.2 - 19.4 Cortisol PM 2.3 - 11.9 Performed at: [facility] [id number] PhD Santos Villareal CHEMISTRYOrdered By: SYSTEM SYSTEM [...] - 0.9 mg/dL [facility] Remisol Calcium [Mass/Vol] 8.3 mg/dL Low 8.9 - 11. 1 mg/dL [facility] Chloride [Moles/Vol] 97 mmol/L Low 101 - 1 11 mmol/L [facility] CO2 [Moles/Vol] 25 mmol/L Normal 21 - 31 mmol/L [facility] Creatinine [Mass/Vol] 0.7 mg/dL Normal 0.5 - 1.3 mg/dL [facility] Ethanol [Mass/Vol] mg/dL Normal <=7mg/dL [facility] R emisol GFR/1.73 sq M.predicted among blacks MDRD (S/P/Bld) [Vol rate/Area] mL/min/1.73 m2 Normal >=59mL/min/ 1.73 m2 [facility] Chem S GFR/1.73 sq M.predicted among non-blacks MDRD (S/P/Bld) [Vol rate/Area] mL/min/1.73 m2 Normal >=59mL/min/ 1.73 m2 [facility] Chem S Globulin (S) [Mass/Vol] 4.4 g/dL High 1.4 - 4.0 gm/dL [facility] Remisol Glucose [Mass/Vol] 94 mg/dL Normal 55 - 199 mg/dL [facility] Potassium [Moles/Vol] 4.2 mmol/L Normal 3.5 - 5.3 mmol/L [facility] Protein [Mass/Vol] 7.3 g/dL Normal 6.0 - 7.8 gm/dL [facility] Sodium [Moles/Vol] 129 mmol/L Low 135 - 145 mmol/L [facility] Troponin I.cardiac [Mass/Vol] 9.00 pg/mL Low 10.10 - 27.10 pg/mL [facility] Urea nitrogen [Mass/Vol] 10 mg/dL Normal 5 - 21 mg/dL [facility] Urea nitrogen/Creatinine [Mass ratio] 14 mg/mg Normal 10 - 20 [facility] CHEMISTRYOrdered By: Karan cuenca on 05-09-2022 Natriuretic peptide B (Bld) [Mass/Vol] 87 pg/mL High 5 - 80 pg/mL [facility] COAGULATIONOrdered By: Martha Panda on 05-09-2022 [...] 4.7 E9/L Normal 4.0 - 11.0 E9/L [facility] URINALYSISOrdered By: Karan Ham on 05-09-2022 [...] PM) Normal Negative [facility] UA Auto SS Speedway.plasma/Speedway. RBC (Bld) [Mass ratio] 0-3 /HPF Normal [...] Desc Clean Catch (05/09/22 10:28 PM) Normal [facility] UA Auto SS Urobilinogen Qn (U) [id number] {[place]uba'U}/dL Normal 0.0 - 1.0 EU/dL [facility] UA Auto SS WBC Auto Ql (U) Negative (05/09/22 10:28 PM) Normal Negative [facility] UA Auto SS WBC LM.HPF (Urine sed) [#/Area] 0-5 /HPF Normal 0-5/HPF [facility] UA Auto SS BLOOD BANKOrdered By: Iwona Verma on 12-13-2021 ABO/Rh Retype Interp Positive Invalid Interpretation Code [facility] BB Subsection CHEMISTRYOrdered By: SYSTEM SYSTEM on 12-13-2021 Anion gap [Moles/Vol] 11 mmol/L Normal 6 - 16 mEq/L [facility] Rem[facility] Calcium [Mass/Vol] 8.4 mg/dL Low 8.9 - 11. 1 mg/dL [facility] Chloride [Moles/Vol] 99 mmol/L Low 101 - 1 11 mmol/L [facility] Rem[facility] CO2 [Moles/Vol] 27 mmol/L Normal 21 - 31 mmol/L [facility] Remisol Creatinine [Mass/Vol] 0.6 mg/dL Normal 0.5 - 1.3 mg/dL [facility] GFR/1.73 sq M.predicted among blacks MDRD (S/P/Bld) [Vol rate/Area] mL/min/1.73 m2 Normal >=59mL/min/ 1.73 m2 [facility] Chem S GFR/1.73 sq M.predicted among non-blacks MDRD (S/P/Bld) [Vol rate/Area] mL/min/1.73 m2 Normal >=59mL/min/ 1.73 m2 [facility] Chem S Glucose [Mass/Vol] 97 mg/dL Normal 55 - 199 mg/dL [facility] Magnesium [Mass/Vol] 1.8 mg/dL Normal 1.3 - 2 .4 mg/dL [facility] Potassium [Moles/Vol] 4.2 mmol/L Normal 3.5 [...] AM) Normal Negative [facility] UA Auto SS [place].plasma/Speedway. RBC (Bld) [Mass ratio] 0-3 /HPF Normal [...] [facility] UA Auto SS UA Spec Desc Random Urine (12/13/21 12:05 AM) Normal [facility] UA Auto SS Urobilinogen Qn (U) [id number] {[place]uba'U}/dL Normal 0.0 - 1.0 EU/dL [facility] UA Auto SS WBC Auto Ql (U) Negative (12/13/21 12:05 AM) Normal Negative [facility] UA Auto SS WBC LM.HPF (Urine sed) [#/Area] 0-5 /HPF Normal 0-5/HPF [facility] UA Auto SS BLOOD BANKOrdered By: Kimberly cordoba on 12-12-2021 ABO/Rh Interp Positive Invalid Interpretation Code [facility] BB Subsection ABSC Gel Interp Negative (12/12/21 10:41 PM) Normal [facility] BB Subsection CHEMISTRYOrdered By: SYSTEM [...] Crit ical Result S_ETOH:161.[address] MONSON AT ER by STEVEN GARAY And Read Back For Confirmation at: 12/12/2021 23:27:36 GFR/1.73 sq M.predicted among blacks MDRD (S/P/Bld) [Vol rate/Area] mL/min/1.73 m2 Normal >=59mL/min/ 1.73 m2 [facility] Chem S GFR/1.73 sq M.predicted among non-blacks MDRD (S/P/Bld) [Vol rate/Area] mL/min/1.73 m2 Normal >=59mL/min/ 1.73 m2 [facility] Chem S Globulin (S) [Mass/Vol] 4.6 g/dL [...] - 20 [facility] Remisol COAGULATIONOrdered By: Kimberly Garay on 12-12-2021 aPTT Coag (PPP) [Time] 33.0 [...] 13.4 g/dL Normal 12.0 - 16.0 gm/dL [facility] MCH (RBC) [Entitic mass] 33.7 pg Normal 27.0 - 34.0 pg [facility] MCHC (RBC) [Mass/Vol] 34.7 g/dL Normal 31.4 - 36.0 gm/dL [facility] MCV (RBC) [Entitic vol] 96.9 fL Normal 80.0 - 100.0 fL [facility] Platelet mean volume (Bld) [Entitic vol] 7.5 fL Normal 6.4 - 10.8 fL [facility] Platelets (Bld) [#/Vol] 170.0 E9/L Normal 150. 0 - 500.0 E9/L [facility] RBC (Bld) [#/Vol] 4.0 E12/L Low 4.3 - 5.9 E12/L [facility] WBC corrected for nucl RBC Auto (Bld) [#/Vol] 4.9 E9/L Normal 4.0 - 11.0 E9/L [facility] Basophils Auto (Bld) [#/Vol] Ordered By: Sunny Taylor on 12-09-2021 Basophils (Bld) [#/Vol] 0.1 10*3/uL 0.0-0.2 [facility] Basophils/100 WBC Auto (Bld) Ordered By: Sunny Taylor on 12-09-2021 Basophils/100 WBC (Bld) 2.5 % [facility] Blood hemoglobin measurement (mass/volume)Ordered By: Sunny Taylor on 12-09-2021 Hemoglobin (Bld) [Mass/Vol] 12.9 g/dL 11.8-15.4 [facility] Blood leukocytes automated c ount (number/volume)Ordered By: Sunny Taylor on 12-09-2021 WBC (Bld) [#/Vol] 3.9 10*3/uL 4.5-11.0 [facility] Body fluid albumin measureme nt (mass/volume)Ordered By: Sunny Taylor on 12-09-2021 Albumin (Body fld) [Mass/Vol] 2.7 g/dL 3.2-5.5 [facility] Creatinine and Glomerular fi ltration rate.predicted panel (S/P/Bld)Ordered By: Sunny Taylor on 12-09-2021 Creatinine [Mass/Vol] 0.63 mg/dL 0.44-1.03 [facility] Eosinophils Auto (Bld) [#/Vo l]Ordered By: Sunny Taylor on 12-09-2021 Eosinophils (Bld) [#/Vol] 0.2 10*3/uL 0.0-0.45 [facility] Eosinophils/100 WBC Auto (Bl d)Ordered By: Sunny Taylor on 12-09-2021 Eosinophils/100 WBC (Bld) 4.3 % [facility] Erythrocyte distribution wid th Auto (RBC) [Ratio]Ordered By: Sunny Taylor on 12-09-2021 Erythrocyte distribution width (RBC) [Ratio] 12.7 % 11.9-15.3 [facility] Estimated glomerular filtrat ion rate (GFR) non- AmericanOrdered By: Sunny Taylor on 12-09-2021 GFR/1.73 sq M.predicted among non-blacks MDRD (S/P/Bld) [Vol rate/Area] > 60 mL/Min [facility] Globulin Calc (S) [Mass/Vol] Ordered By: Sunny Taylor on 12-09-2021 Globulin (S) [Mass/Vol] 4.5 g/dL [facility] Hematocrit Auto (Bld) [Volum e fraction]Ordered By: Sunny Taylor on 12-09-2021 Hematocrit (Bld) [Volume fraction] 37.1 % 34.0-46.4 [facility] Laboratory - Hematology and Cell countsOrdered By: Sunny Taylor on 12-09-2021 Nucleated RBC/100 WBC (Bld) [Ratio] 0.3 % 0-0.5 [facility] Lymphocytes Auto (Bld) [#/Vo l]Ordered By: Sunny Taylor on 12-09-2021 Lymphocytes (Bld) [#/Vol] 1.2 10*3/uL 1.00-4.8 [facility] Lymphocytes/100 WBC Auto (Bl d)Ordered By: Sunny Taylor on 12-09-2021 Lymphocytes/100 WBC (Bld) 31.4 % [facility] MCH Auto (RBC) [Entitic mass ]Ordered By: Sunny Taylor on 12-09-2021 MCH (RBC) [Entitic mass] 34.2 pg 24.7-34.3 [facility] MCHC Auto (RBC) [Mass/Vol]Or dered By: Sunny Taylor on 12-09-2021 MCHC (RBC) [Mass/Vol] 34.7 g/dL 32.0-35.0 [facility] MCV Auto (RBC) [Entitic vol] Ordered By: Sunny Taylor on 12-09-2021 MCV (RBC) [Entitic vol] 98.5 fL 80-100 [facility] Monocytes Auto (Bld) [#/Vol] Ordered By: Sunny Taylor on 12-09-2021 Monocytes (Bld) [#/Vol] 0.3 10*3/uL 0.0-0.8 [facility] Monocytes/100 WBC Auto (Bld) Ordered By: Sunny Taylor on 12-09-2021 Monocytes/100 WBC (Bld) 8.4 % [facility] Neutrophils Auto (Bld) [#/Vo l]Ordered By: Sunny Taylor on 12-09-2021 Neutrophils (Bld) [#/Vol] 2.1 10*3/uL 1.8-7.7 [facility] Neutrophils/100 WBC Auto (Bl d)Ordered By: Sunny Taylor on 12-09-2021 Neutrophils/100 WBC (Bld) 53.4 % [facility] No Panel InformationOrdered By: Sunny Taylor on 12-09-2021 Estimated GFR () > 60 mL/Min [facility] Comment on above: GFR estimated refere nce range: According to KDOQI guidelines, <60 ml/min/1.73m2 is sufficient to diagnose a patient with chronic kidney disease. Pharmacy Creatinine Clearance (Chem N/A [facility] Platelet mean volume Auto (B ld) [Entitic vol]Ordered By: Sunny Taylor on 12-09-2021 Platelet mean volume (Bld) [Entitic vol] 8.9 fL 6.3-10.7 [facility] Platelets Auto (Bld) [#/Vol] Ordered By: Sunny Taylor on 12-09-2021 Platelets (Bld) [#/Vol] 174 10*3/uL 150-450 [facility] Protein [Mass/volume] in Ser um or PlasmaOrdered By: Sunny Taylor on 12-09-2021 Protein [Mass/Vol] 7.2 g/dL 6.1-7.9 [facility] RBC Auto (Bld) [#/Vol]Ordere d By: Sunny Taylor on 12-09-2021 RBC (Bld) [#/Vol] 3.76 10*6/uL 3.60-5.00 [facility] Serum or plasma alanine robins otransferase measurement without P-5'-P (enzymatic activiOrdered By: Sunny Taylor on 12-09-2021 ALT No additional P-5'-P [Catalytic activity/Vol] 24 U/L 10-60 [facility] Serum or plasma albumin/glob ulin mass ratioOrdered By: Sunny Taylor on 12-09-2021 Albumin/Globulin [Mass ratio] 0.6 {ratio} [facility] Serum or plasma alkaline rolando sphatase measurement (enzymatic activity/volume)Ordered By: Sunny Taylor on 12-09-2021 ALP [Catalytic activity/Vol] 71 U/L 32-92 [facility] Serum or plasma aspartate am inotransferase measurement (enzymatic activity/volume)Ordered By: Sunny Taylor on 12-09-2021 AST [Catalytic activity/Vol] 41 U/L 10-42 [facility] Serum or plasma calcium saray urement (mass/volume)Ordered By: Sunny Taylor on 12-09-2021 Calcium [Mass/Vol] 8.5 mg/dL 8.2-10.2 [facility] Serum or plasma chloride van surement (moles/volume)Ordered By: Sunny Taylor on 12-09-2021 Chloride [Moles/Vol] 102 mmol/L 95-114 [facility] Serum or plasma glucose saray urement (mass/volume)Ordered By: Sunny Taylor on 12-09-2021 Glucose [Mass/Vol] 99 mg/dL 70-100 [facility] Comment on above: ADA recommended refe rence [...] on 12-09-2021 Potassium [Moles/Vol] 4.2 mmol/L 3.5-5.1 [facility] Serum or plasma sodium measu rement (moles/volume)Ordered By: Sunny Taylor on 12-09-2021 Sodium [Moles/Vol] 134 mmol/L 136-146 [facility] Serum or plasma total biliru bin measurement (mass/volume)Ordered By: Sunny Taylor on 12-09-2021 Bilirubin [Mass/Vol] 0.8 mg/dL 0.3-1.2 [facility] Serum or plasma total carbon dioxide measurement (moles/volume)Ordered By: Sunny Taylor on 12-09-2021 CO2 [Moles/Vol] 24.5 mmol/L 22.0-30.0 [facility] Serum or plasma urea nitroge n measurement (mass/volume)Ordered By: Sunny Taylor on 12-09-2021 Urea nitrogen [Mass/Vol] 9 mg/dL 04-30 [facility] Complete Blood Counton 07-15 Erythrocyte distribution width (RBC) [Ratio] 12.6 % Normal 11.0-15.0 [facility] Comment on above: Performed By: #### C BC #### [facility] [address], [place] [id number] Hematocrit (Bld) [Volume fraction] 42.2 % Normal 35.0-47.0 [facility] Comment on above: Performed By: #### C BC #### [facility] [address], [place] [id number] Hemoglobin (Bld) [Mass/Vol] 13.2 g/dL Normal 11.6-15.5 [facility] Comment on above: Performed By: #### C BC #### [facility] [address], [place] [id number] MCH (RBC) [Entitic mass] 34.5 pg High 27.0-33.0 [facility] Comment on above: Performed By: #### C BC #### [facility] [address], [place] [id number] MCHC (RBC) [Mass/Vol] 31.3 g/dL Low 32.0-36.0 [facility] Comment on above: Performed By: #### C BC #### [facility] [address], [place] [id number] MCV (RBC) [Entitic vol] 110 fL High 80-100 [facility] Comment on above: Performed By: #### C BC #### [facility] [address], [place] [id number] Platelet mean volume (Bld) [Entitic vol] 9.90 fL Normal 7.50-12.50 [facility] Comment on above: Performed By: #### C BC #### [facility] [address], [place] [id number] Platelets (Bld) [#/Vol] 227 10*3/uL Normal 140-400 [facility] Comment on above: Performed By: #### C BC #### [facility] [address], [place] [id number] RBC (Bld) [#/Vol] 3.83 10*6/uL Low 3.90-5.20 [facility] Comment on above: Performed By: #### C BC #### [facility] [address], [place] [id number] RDW-SD 50.3 fL High 37.0-50.0 [facility] Comment on above: Performed By: #### C BC #### [facility] [address], [place] [id number] WBC (Bld) [#/Vol] 5.7 10*3/uL Normal 3.8-11.0 [facility] Comment on above: Performed By: #### C BC #### [facility] [address], [place] [id number] Q - LAUREN SCREEN IFA W/RFL TIT ER IFAon 07-10-2021 LAUREN SCREEN, IFA Positive Abnormal NEGATIVE [facility] Comment on above: Order Comment: [facility] performed at: [employer], [facility], [address] [place] [address], [address] [place] [address], [phone], [employer]: Donavan Moser MD [facility] Date/Time: [facility] [...] indicated. For additional information, please refer to [email or web address] (This link is being provided for informational/ educational purposes only.) Performed By: #### 1 0231A, ESR, %39404, TSH, 249X #### [facility] Default [address] [place] [address] Q - LAUREN TITER/PATTERNon LAUREN PATTERN Nuclear, Homogeneous Abnormal [facility] Comment on above: Order Comment: [facility] performed at: [facility], [address] [place] [address], [address] [place] [address], [phone], [employer]: Donavan Moser MD [facility] Date/Time: [facility] Results Received Date/Time: [facility] Reported Date/Time: FASTING: NO Result Comment: Homo geneous pattern is associated with systemic lupus erythematosus (SLE), drug-induced lupus and juvenile idiopathic arthritis. AC-1: Homogeneous International Consensus on LAUREN Patterns (https://doi.org/10.1515/impp-7964-4525) Performed By: #### 1 0231A, ESR, %83870, TSH, 249X #### [facility] [address] [place] [address] LAUREN PATTERN Nuclear, Speckled Abnormal [place] Reel Winder Comment on above: Order Comment: [facility] performed at: [employer], [facility], [address], [address] [place], [address], Rep[employer]: Donavan Moser MD [facility] Date/Time: [facility] Results Received Date/Time: [facility] Reported Date/Time: FASTING: NO Result Comment: Spec kled pattern is associated with mixed connective tissue disease (MCTD), systemic lupus erythematosus (SLE), Sjogren's syndrome, dermatomyositis, and systemic sclerosis/polymyositis overlap. AC-2,4,5,29: Speckled International Consensus on LAUREN Patterns (https://doi.org/10.1515/nlkb-9176-4915) Performed By: #### 1 0231A, ESR, %88939, TSH, 249X #### [facility] [address] [place] [address] LAUREN TITER 1:80 High [facility] Comment on above: Order Comment: [facility] performed at: [employer], [facility], [address], [address] [place], [phone], [employer]: Donavan Moser MD [facility] Date/Time: [facility] Results Received Date/Time: [facility] Reported Date/Time: FASTING: NO Result Comment: A lo w level LAUREN titer may be present in pre-clinical autoimmune diseases and normal individuals. Reference Range <1:40 Negative 1:40-1:80 Low Antibody Level >1:80 Elevated Antibody Level Performed By: #### 1 0231A, ESR, %02228, TSH, 249X #### [facility] [address] [place] [address] LAUREN TITER > OR = 1:1280 Abnormal [facility] Comment on above: Order Comment: [facility] performed at: [employer], [facility], [address], [address] [place], [address], Rep[employer]: Donavan Moser MD [facility] Date/Time: [facility] Results Received Date/Time: [facility] Reported Date/Time: FASTING: NO Result Comment: Refe rence Range <1:40 Negative 1:40-1:80 Low Antibody Level >1:80 Elevated Antibody Level Performed By: #### 1 0231A, ESR, %85940, TSH, 249X #### [facility] [address] [place] [address] Q - COMPREHENSIVE METABOLIC PANEL W/EGFRon 07-10-2021 Albumin [Mass/Vol] 3.4 g/dL Low 3.6-5.1 [facility] Comment on above: Order Comment: [facility] performed at: [employer], [address] [place] [address], [address] [place] [address], [address] [place] [address], [employer]: Donavan Moser MD [facility] Date/Time: [facility] Results Received Date/Time: [facility] Reported Date/Time: FASTING: NO Performed By: #### 1 0231A, ESR, %07459, TSH, 249X #### [facility] [address] [place] [address] Albumin/Globulin [Mass ratio] 0.9 {ratio} Low 1.0-2.5 [facility] Comment on above: Order Comment: [facility] performed at: [employer] [facility], [address] [place] [address], [address] [place] [address], [address] [place] [address], [employer]: Donavan Moser MD [facility] Date/Time: [facility] Results Received Date/Time: [facility] Reported Date/Time: FASTING: NO Performed By: #### 1 0231A, ESR, %68648, TSH, 249X #### [facility] [address] [place] [address] ALP [Catalytic activity/Vol] 76 U/L Normal 37-153 [facility] Reel Winder Comment on above: Order Comment: [facility] performed at: [employer] [facility], [address] [place] [address], [address] [place] [address], [address] [place] [address], Rep[employer]: Donavan Moser MD [facility] Date/Time: [facility] Results Received Date/Time: [facility] Reported Date/Time: FASTING: NO Performed By: #### 1 0231A, ESR, %85775, TSH, 249X #### [facility] Default [address] [place] [address] ALT [Catalytic activity/Vol] 16 U/L Normal 6-29 [facility] Reel Winder Comment on above: Order Comment: [facility] performed at: [employer], [facility], [address] [place] [address], [address] [place] [address], [address] [place] [address], [employer]: Donavan Moser MD [facility] Date/Time: [facility] Results Received Date/Time: [facility] Reported Date/Time: FASTING: NO Performed By: #### 1 0231A, ESR, %84680, TSH, 249X #### [facility] Default [address] [place] [address] AST [Catalytic activity/Vol] 25 U/L Normal 10-35 [facility] Specialist Comment on above: Order Comment: [facility] Testing performed at: [employer], [facility], [address] [place] [address], [address] [place] [address], [address] [place] [address], [employer]: Donavan Moser MD [facility] Date/Time: [facility] Results Received Date/Time: [facility] Reported Date/Time: FASTING: NO Performed By: #### 1 0231A, ESR, %58054, TSH, 249X #### [facility] Default [address] [place] [address] Bilirubin [Mass/Vol] 0.9 mg/dL Normal 0.2-1.2 [facility] Comment on above: Order Comment: [facility] Testing performed at: [place], [facility], [address] [place] [address], [address] [place] [address], [address] [place] [address], [employer]: Donavan Moser MD [facility] Date/Time: [facility] Results Received Date/Time: [facility] Reported Date/Time: FASTING: NO Performed By: #### 1 0231A, ESR, %54271, TSH, 249X #### [facility] Default [address] [place] [address] BUN/CREA 20 NOT APPLICABLE Normal 6-22 [facility] Reel Winder Comment on above: Order Comment: [facility] performed at: [employer], [facility], [address] [place] [address], [address] [place] [address], [phone], [employer]: Donavan Moser MD [facility] Date/Time: [facility] Results Received Date/Time: [facility] Reported Date/Time: FASTING: NO Performed By: #### 1 0231A, ESR, %80537, TSH, 249X #### [facility] [address] [place] [address] Calcium [Mass/Vol] 8.5 mg/dL Low 8.6-10.4 [facility] Reel Winder Comment on above: Order Comment: [facility] Testing performed at: [facility], [address] [place] [address], [address] [place] [address], [phone], Repaire[employer]: Donavan Moser MD [facility] Date/Time: [facility] Results Received Date/Time: [facility] Reported Date/Time: FASTING: NO Performed By: #### 1 0231A, ESR, %89836, TSH, 249X #### [facility] Default [address] [place] [address] Chloride [Moles/Vol] 99 mmol/L Normal 98-110 [facility] [place] Reel Winder Comment on above: Order Comment: [facility] performed at: [employer], [facility], [address] [facility], [address] [place] [address], [phone], Rep[employer]: Donavan Moser MD [facility] Date/Time: [facility] Results Received Date/Time: [facility] Reported Date/Time: FASTING: NO Performed By: #### 1 0231A, ESR, %84559, TSH, 249X #### [facility] Default [address] [place] [address] CO2 [Moles/Vol] 28 mmol/L Normal 20-32 [facility] Comment on above: Order Comment: [facility] performed at: [employer] [place], [facility], [address] [facility], [address] [place] [address], [address] [place] [address], [employer]: Donavan Moser MD [facility] Date/Time: [facility] Results Received Date/Time: [facility] Reported Date/Time: FASTING: NO Performed By: #### 1 0231A, ESR, %69332, TSH, 249X #### [facility] Default [address] [place] [address] Creatinine [Mass/Vol] 0.61 mg/dL Normal 0.60-0.93 [facility] Comment on above: Order Comment: [facility] Testing performed at: [facility], [address] [place] [address], [address] [place] [address], [address] [place] [address], Rep[employer]: Donavan Moser MD [facility] Date/Time: [facility] Results Received Date/Time: [facility] Reported Date/Time: FASTING: NO Result Comment: For patients >49 years of age, the reference limit for Creatinine is approximately 13% higher for people identified as -Guyanese. Performed By: #### 1 0231A, ESR, %69474, TSH, 249X #### [facility] Default [address] [place] [address] eGFRAA 115 mL/min/1.73m2 Normal > OR = 60 [facility] Specialist Comment on above: Order Comment: [facility] performed at: [employer] [place], [facility], [address] [place] [address], [address] [place] [address], [address] [place] [address], Rep[employer]: Donavan Moser MD [facility] Date/Time: [facility] Results Received Date/Time: [facility] Reported Date/Time: FASTING: NO Performed By: #### 1 0231A, ESR, %27931, TSH, 249X #### [facility] Default [address] [place] [address] eGFRNAA 95 mL/min/1.73m2 Normal > OR = 60 [facility] Specialist Comment on above: Order Comment: [facility] performed at: [employer] [place], [facility], [address] [facility], [address] [place] [address], [phone], Rep[employer]: Donavan Moser MD [facility] Date/Time: [facility] Results Received Date/Time: [facility] Reported Date/Time: FASTING: NO Performed By: #### 1 0231A, ESR, %63856, TSH, 249X #### [facility] Default [address] [place] [address] Globulin (S) [Mass/Vol] 3.8 g/dL High 1.9-3.7 [facility] Specialist Comment on above: Order Comment: [facility] performed at: [facility], [address] [facility], [address] [place] [address], [phone], Rep[employer]: Donavan Moser MD [facility] Date/Time: [facility] Results Received Date/Time: [facility] Reported Date/Time: FASTING: NO Performed By: #### 1 0231A, ESR, %86096, TSH, 249X #### [facility] Default [address] [place] [address] Glucose [Mass/Vol] 89 mg/dL Normal 65-139 [facility] Specialist Comment on above: Order Comment: [facility] performed at: [employer], [facility], [address] [facility], [address] [place] [address], [phone], Rep[employer]: Donavan Moser MD [facility] Date/Time: [facility] Results Received Date/Time: [facility] Reported Date/Time: FASTING: NO Result Comment: Non-fasting reference interval Performed By: #### 1 0231A, ESR, %28704, TSH, 249X #### [facility] Default [address] [place] [address] Potassium [Moles/Vol] 4.3 mmol/L Normal 3.5-5.3 Alec desai [place] Reel Winder Comment on above: Order Comment: [facility] Testing performed at: [facility], [address] [place] [address], [address] [place] [address], [address] [place] [address], Rep[employer]: Donavan Moser MD [facility] Date/Time: [facility] Results Received Date/Time: [facility] Reported Date/Time: FASTING: NO Performed By: #### 1 0231A, ESR, %58930, TSH, 249X #### [facility] Default [address] [place] [address] Protein [Mass/Vol] 7.2 g/dL Normal 6.1-8.1 Jhonny crowley [place] Reel Winder Comment on above: Order Comment: [facility] Testing performed at: [facility], [address] [place] [address], [address] [place] [address], [address] [place] [address], Rep[employer]: Donavan Moser MD [facility] Date/Time: [facility] Results Received Date/Time: [facility] Reported Date/Time: FASTING: NO Performed By: #### 1 0231A, ESR, %55617, TSH, 249X #### [facility] Default [address] [place] [address] Sodium [Moles/Vol] 135 mmol/L Normal 135-146 Jhonny crowley [place] Reel Winder Comment on above: Order Comment: [facility] Testing performed at: [facility], [address] [place] [address], [address] [place] [address], [phone], Repairer [employer]: Donavan Moser MD [facility] Date/Time: [facility] Results Received Date/Time: [facility] Reported Date/Time: FASTING: NO Performed By: #### 1 0231A, ESR, %40200, TSH, 249X #### [facility] Default [address] [place] [address] Urea nitrogen [Mass/Vol] 12 mg/dL Normal 7-25 [facility] Reel Winder Comment on above: Order Comment: [facility] Testing performed at: [employer], [facility], [address] [place] [address], [address] [place] [address], [address] [place] [address], Rep[employer]: Donavan Moser MD [facility] Date/Time: [facility] Results Received Date/Time: [facility] Reported Date/Time: FASTING: NO Performed By: #### 1 0231A, ESR, %63817, TSH, 249X #### [facility] Default [address] [place] [address] RBC Sedimentation Rateon ESR (Bld) [Velocity] 77 mm/h High < OR = 30 [facility] Comment on above: Order Comment: [facility] Testing performed at: [facility], [address] [place] [address], [address] [place] [address], [address] [place] [address], Rep[employer]: Donavan Moser MD [facility] Date/Time: [facility] Results Received Date/Time: [facility] Reported Date/Time: FASTING: NO Performed By: #### 1 0231A, ESR, %40830, TSH, 249X #### [facility] Default [address] [place] [address] TSHon 07-10-2021 TSH Qn 0.74 m[IU]/L Normal 0.40-4.50 [facility] Reel Winder Comment on above: Order Comment: [facility] performed at: [employer], [facility], [address] [place] [address], [address] [place] [address], [address] [place] [address], Rep[employer]: Donavan Moser MD [facility] Date/Time: [id number] [facility] Results Received Date/Time: [id number] [facility] Reported Date/Time: [id number] FASTING: NO Performed By: #### 1 0231A, ESR, %19622, TSH, 249X #### [facility] Default [address] [place] [address] [facility]on [facility]-08 Covid-19 PCR NOT DETECTED Normal NOT DETECTED [facility] Comment on above: Result Comment: This test is not yet approved or cleared by the [place] FDA. When there are no FDA-approved or cleared tests available, and other criteria are met, FDA can make tests available under an emergency access mechanism called an Emergency Use Authorization (EUA). The EUA for this test is supported by the [place] of Health and Human Service's (HHS's) declaration [...] longer be used). Performed By: #### [facility] #### [facility] [address] [address] Domo Miller EUA Statement SEE BELOW Normal [facility] Comment on above: Result Comment: This test is not yet approved or cleared by the [place] FDA. When there are no FDA-approved or cleared tests available, and other criteria are met, FDA can make tests available under an emergency access mechanism called an Emergency Use Authorization (EUA). The EUA for this test is supported by the [employer] of Health and Human Service?s (HHS?s) declaration [...] consistent with SARS-CoV-2. Performed By: #### C VDTB #### [facility] [address] [place] [id number] Domo Miller COVID-19 PCRon 03-19-2020 SARS-CoV-2, MARCY Not Detected Normal Not Detected [facility] Comment on above: Result Comment: This test was developed and its performance characteristics determined by [employer]. This test has not been FDA cleared [...] assay. Performed By: #### C VDPCR #### [facility] [address] [place] [id number] Domo Miller Vital Signs Date Time Vital Sign Value Performing Clinician Facility 03-15-2025 14:37-0400 Body height 152.4 cm [employer] DO Work Phone: [facility] 03-15-2025 14:37-0400 Body mass index (BMI) [Ratio] 36.8 kg/m2 Edmond LoanHero DO Work Phone: [facility] 03-15-2025 14:37-0400 Body weight 85.44 kg Edmond [employer] DO Work Phone: [facility] 03-15-2025 14:37-0400 Diastolic blood pressure 81 mm[Hg] Edmond LoanHero DO Work Phone: [facility] 03-15-2025 14:37-0400 Heart rate 64 /min Edmond Ball DO Work Phone: [facility] 03-15-2025 14:37-0400 Respiratory rate 12 /min Edmond Ball DO Work Phone: [facility] 03-15-2025 14:37-0400 Systolic blood pressure 125 mm[Hg] Edmond Ball DO Work Phone: [facility] 07-12-2024 08:07-0500 Body temperature 98.24 [degF] Karlee Lue [facility] 07-12-2024 08:07-0500 Diastolic blood pressure 74 mm[Hg] Karlee Lue [facility] 07-12-2024 08:07-0500 Respiratory rate 16 /min Karlee Lue [facility] 07-12-2024 08:07-0500 Systolic blood pressure 128 mm[Hg] Karlee Lue [facility] 07-02-2024 13:43-0500 Blood Pressure Location CARON JANETTE [facility] 07-02-2024 13:43-0500 Diastolic blood pressure 61 mm[Hg] CARON JANETTE [facility] 07-02-2024 13:43-0500 Heart rate 65 /min CARON JANETTE [facility] 07-02-2024 13:43-0500 Respiratory rate 18 /min CARON JANETTE [facility] 07-02-2024 13:43-0500 Systolic blood pressure 102 mm[Hg] CARON CARVAJAL [facility] 03-02-2024 11:10-0400 Blood Pressure Location Gera Thomas [facility] 03-02-2024 11:10-0400 Diastolic blood pressure 90 mm[Hg] [facility] 03-02-2024 11:10-0400 Heart rate 58 /min [facility] 03-02-2024 11:10-0400 Respiratory rate 18 /min Gera Thomas [facility] 03-02-2024 11:10-0400 SaO2% (BldA) [Mass fraction] 94 % Gera Thomas [facility] 03-02-2024 11:10-0400 Systolic blood pressure 140 mm[Hg] Gera [facility] 09-28-2023 09:05-0500 Body height 154 cm Ant Kirk DO Work Phone: [employer] 09-28-2023 09:05-0500 Body mass index (BMI) [Ratio] 37.3 kg/m2 Ant Kirk DO Work Phone: [employer] 09-28-2023 09:05-0500 Body temperature 98.01 [degF] Ant Kirk DO Work Phone: [employer] 09-28-2023 09:05-0500 Body weight 88.45 kg Ant Kirk [employer] Work Phone: [employer] [facility] 09-28-2023 09:05-0500 Diastolic blood pressure 64 mm[Hg] Ant Kirk DO Work Phone: [employer] 09-28-2023 09:05-0500 Heart rate 57 /min Ant Kirk DO Work Phone: [employer] 09-28-2023 09:05-0500 Respiratory rate 16 /min Ant Kirk DO Work Phone: [facility] [employer] 09-28-2023 09:05-0500 SaO2% (BldA) [Mass fraction] 96 % Ant Kirk DO Work Phone: [facility] [employer] 09-28-2023 09:05-0500 Systolic blood pressure 145 mm[Hg] Ant Kirk DO Work Phone: [employer] 09-15-2023 12:32-0500 Diastolic blood pressure 55 mm[Hg] Dennise Sol DO Work Phone: [employer] 09-15-2023 12:32-0500 Heart rate 56 /min Dennise Sol DO Work Phone: [employer] 09-15-2023 12:32-0500 Respiratory rate 20 /min Dennise Sol DO Work Phone: [employer] 09-15-2023 12:32-0500 SaO2% (BldA) [Mass fraction] 99 % Dennise Sol DO Work Phone: [employer] 09-15-2023 12:32-0500 Systolic blood pressure 126 mm[Hg] Dennise Sol DO Work Phone: [employer] 09-15-2023 10:29-0500 Body height 152.4 cm Dennise Sol [employer] Work Phone: [employer] 09-15-2023 10:29-0500 Body mass index (BMI) [Ratio] 37.11 kg/m2 Dennise Sol [employer] Work Phone: [employer] 09-15-2023 10:29-0500 Body temperature 98.29 [degF] Dennise Sol [employer] Work Phone: [facility] 09-15-2023 10:29-0500 Body weight 86.18 kg Dennise Sol DO Work Phone: [facility] 07-13-2023 11:29-0500 Heart rate 72 /min Reuben VIKI [facility] 07-13-2023 11:29-0500 SaO2% (BldA) [Mass fraction] 95 % Reuben VIKI [facility] 07-13-2023 11:27-0500 Diastolic blood pressure 79 mm[Hg] Reuben VIKI [facility] 07-13-2023 11:27-0500 Mean blood pressure 101 mm[Hg] Reuben VIKI [facility] 07-13-2023 11:27-0500 Systolic blood pressure 145 mm[Hg] Reuben VIKI [facility] 07-13-2023 11:27-0500 Body temperature 97.88 [degF] Reuben VIKI [facility] 07-13-2023 10:07-0500 Hourly Rounding Reuben VIKI [facility] 07-13-2023 10:07-0500 Promise to Return Reuben VIKI [facility] 07-13-2023 09:00-0500 Hourly Rounding Reuben VIKI [facility] 07-13-2023 09:00-0500 Promise to Return Reuben VIKI [facility] 07-13-2023 08:23-0500 Hourly Rounding Reuben VIKI [facility] 07-13-2023 08:23-0500 Promise to Return Reuben VIKI [facility] 07-13-2023 07:35-0500 Heart rate 68 /min Reubenmichelle CISNEROSSLIN [facility] 07-13-2023 07:35-0500 SaO2% (BldA) [Mass fraction] 96 % Reubenmichelle CISNEROSSLIN [facility] 07-13-2023 07:35-0500 Diastolic blood pressure 69 mm[Hg] Reuben VIKI [facility] 07-13-2023 07:35-0500 Mean blood pressure 97 mm[Hg] Reuben VIKI [facility] 07-13-2023 07:35-0500 Systolic blood pressure 153 mm[Hg] Reuben VIKI [facility] 07-13-2023 07:34-0500 Body temperature 97.88 [degF] Reubenmichelle [facility] 07-13-2023 05:03-0500 Blood Pressure Location Reubenmichelle [facility] 07-13-2023 05:03-0500 Body temperature 97.52 [degF] Reubenmichelle [facility] 07-13-2023 05:03-0500 Diastolic blood pressure 64 mm[Hg] Reuben VIKI [facility] 07-13-2023 05:03-0500 Heart rate 69 /min Reuben VIKI [facility] 07-13-2023 05:03-0500 Mean blood pressure 88 mm[Hg] Reuben VIKI [facility] 07-13-2023 05:03-0500 Respiratory rate 20 /min Reubenmichelle [facility] 07-13-2023 05:03-0500 SaO2% (BldA) [Mass fraction] 94 % Reubenmichelle [facility] 07-13-2023 05:03-0500 Systolic blood pressure 137 mm[Hg] Reubenmichelle [facility] 07-13-2023 03:08-0500 Respiratory rate 20 /min Reubenmichelle [facility] 07-12-2023 19:48-0500 Mean blood pressure 99 mm[Hg] Reubenmichelle [facility] 07-12-2023 17:10-0500 Body temperature 98.24 [degF] Reubenmichelle [facility] 07-12-2023 05:25-0500 Body temperature 98.06 [degF] Reubenmichelle [facility] 07-12-2023 05:25-0500 Mean blood pressure 92 mm[Hg] Reubenmichelle [facility] 07-12-2023 05:25-0500 Respiratory rate 18 /min Reubenmichelle [facility] 07-11-2023 12:00-0500 Body temperature 97.7 [degF] Reubenmichelle [facility] 07-11-2023 04:10-0500 Blood Pressure Location Reubenmichelle [facility] 07-11-2023 04:10-0500 Mean blood pressure 100 mm[Hg] Reubenmichelle [facility] 07-11-2023 00:45-0500 Blood Pressure Location Reuben VIKI [facility] 07-10-2023 20:15-0500 Heart rate 86 /min Reuben VIKI [facility] 07-10-2023 19:12-0500 Respiratory rate 18 /min Reuben VIKI [facility] 07-10-2023 18:45-0500 Respiratory rate 18 /min Reuben VIKI [facility] 07-10-2023 17:25-0500 gluc 90 mg/dL Reuben VIKI [facility] 07-10-2023 17:25-0500 gluc Reubenmichelle [facility] 07-10-2023 16:55-0500 Heart rate 85 /min Reubenmichelle [facility] 05-17-2023 14:45-0400 Body height 152.4 cm Edmond Ball Other [facility] [employer] Other 05-17-2023 14:45-0400 Body mass index (BMI) [Ratio] 37.3 kg/m2 Edmond Ball Other [facility] [employer] Other 05-17-2023 14:45-0400 Body weight 86.64 kg Edmond Ball Other [facility] [employer] Other 05-17-2023 14:45-0400 Diastolic blood pressure 67 mm[Hg] Edmond Ball Other [facility] [employer] Other 05-17-2023 14:45-0400 Respiratory rate 12 /min Edmond Ball Other [facility] [employer] Other 05-17-2023 14:45-0400 Systolic blood pressure 152 mm[Hg] Edmond Ball Other [employer] Other 04-06-2023 11:00-0400 Body height 152.4 cm Edmond Ball Other [employer] Other 04-06-2023 11:00-0400 Body mass index (BMI) [Ratio] 36.56 kg/m2 Edmond Ball Other [employer] Other 04-06-2023 11:00-0400 Body weight 84.91 kg Edmond Ball Other [employer] Other 04-06-2023 11:00-0400 Diastolic blood pressure 74 mm[Hg] Edmond Ball Other [employer] Other 04-06-2023 11:00-0400 Respiratory rate 12 /min Edmond Ball Other [employer] Other 04-06-2023 11:00-0400 Systolic blood pressure 160 mm[Hg] Edmond Ball Other [employer] Other 03-14-2023 11:27-0400 Heart rate 59 /min Mbanefo OJUKWU [facility] 03-14-2023 11:27-0400 SaO2% (BldA) [Mass fraction] 95 % Mbanefo OJUKWU [facility] 03-14-2023 11:26-0400 Diastolic blood pressure 72 mm[Hg] Mbanefo OJUKWU [facility] 03-14-2023 11:26-0400 Mean blood pressure 86 mm[Hg] Mbanefo OJUKW[facility] 03-14-2023 11:26-0400 Systolic blood pressure 113 mm[Hg] Mbanefo OJUKWU [facility] 03-14-2023 11:26-0400 Body temperature 98.24 [degF] Mbanefo OJUKWU [facility] 03-14-2023 11:00-0400 Blood Pressure Location Mbanefo OJUKW[facility] 03-14-2023 11:00-0400 Respiratory rate 16 /min Mbanefo OJ[facility] 03-14-2023 10:00-0400 Hourly Rounding Mbanefo OJUKWU [facility] 03-14-2023 10:00-0400 Promise to Return Mbanefo OJUKWU [facility] 03-14-2023 09:18-0400 Hourly Rounding Mbanefo [facility] 03-14-2023 09:18-0400 Promise to Return Mbanefo [facility] 03-14-2023 08:29-0400 Heart rate 57 /min Mbanefo [facility]UK[facility] 03-14-2023 08:29-0400 SaO2% (BldA) [Mass fraction] 96 % Mbanefo [facility] 03-14-2023 08:29-0400 Diastolic blood pressure 77 mm[Hg] Mbanefo [facility] 03-14-2023 08:29-0400 Mean blood pressure 99 mm[Hg] Mbanefo [facility] 03-14-2023 08:29-0400 Systolic blood pressure 142 mm[Hg] Mbanefo [facility] 03-14-2023 08:29-0400 Body temperature 97.88 [degF] Mbanefo [facility] 03-14-2023 08:00-0400 Hourly Rounding Mbanefo [facility] 03-14-2023 08:00-0400 Promise to Return Mbanefo [facility] 03-13-2023 20:00-0400 Body temperature 97.7 [degF] Mbanefo [facility] 03-13-2023 20:00-0400 Diastolic blood pressure 64 mm[Hg] Mbanefo [facility] 03-13-2023 20:00-0400 Heart rate 63 /min Mbanefo [facility] 03-13-2023 20:00-0400 SaO2% (BldA) [Mass fraction] 94 % Mbanefo OJUK[facility] 03-13-2023 20:00-0400 Systolic blood pressure 114 mm[Hg] Mbanefo [facility] 03-13-2023 15:20-0400 Mean blood pressure 100 mm[Hg] Mbanefo [facility] 03-12-2023 19:00-0400 Mean blood pressure 92 mm[Hg] Mbanefo [facility] 03-11-2023 05:00-0400 Body temperature 98.06 [degF] Mbanefo [facility] 03-11-2023 01:00-0400 Body temperature 98.06 [degF] Mbanefo [facility] 03-10-2023 15:54-0400 Blood Pressure Location Mbanefo [facility] 03-10-2023 15:54-0400 Body temperature 98.24 [degF] Mbanefo [facility] 03-10-2023 15:54-0400 Heart rate 61 /min Mbanefo [facility] 03-10-2023 15:54-0400 Respiratory rate 17 /min [facility] [facility] 03-10-2023 14:45-0400 Mean blood pressure 115 mm[Hg] Mbanefo OJUKWU [facility] 03-10-2023 14:45-0400 Respiratory rate 17 /min Mbanefo OJUKWU [facility] 03-10-2023 13:45-0400 Mean blood pressure 96 mm[Hg] Mbanefo OJUKWU [facility] 03-10-2023 13:45-0400 Respiratory rate 16 /min Mbanefo OJUKWU [facility] 03-10-2023 12:45-0400 Respiratory rate 15 /min Mbanefo OJUKWU [facility] 03-10-2023 11:48-0400 Heart rate 61 /min Mbanefo OJUKWU [facility] 03-10-2023 11:33-0400 gluc 109 mg/dL Mbanefo OJUKWU [facility] 03-10-2023 11:33-0400 gluc Mbanefo OJUKWU [facility] 03-10-2023 11:22-0400 Heart rate 71 /min Mbanefo OJUKWU [facility] 01-19-2023 12:38-0400 Body weight 84.5 kg Quiana Waterman APRN.PHYSICIAN INDUSTRIAL Work Phone: [facility] 01-19-2023 12:38-0400 Diastolic blood pressure 81 mm[Hg] Quiana Waterman APRN.PHYSICIAN INDUSTRIAL Work Phone: [facility] 01-19-2023 12:38-0400 Heart rate 54 /min Quiana Waterman APRN.PHYSICIAN INDUSTRIAL Work Phone: [facility] 01-19-2023 12:38-0400 Systolic blood pressure 160 mm[Hg] Quiana Waterman APRN.PHYSICIAN INDUSTRIAL Work Phone: [facility] 09-13-2022 15:30-0500 Body height 152.4 cm Edmond Ball Other [employer] Other 09-13-2022 15:30-0500 Body mass index (BMI) [Ratio] 36.24 kg/m2 Edmond Ball Other [employer] Other 09-13-2022 15:30-0500 Body weight 84.19 kg Edmond Ball Other [employer] Other 09-13-2022 15:30-0500 Diastolic blood pressure 74 mm[Hg] Edmond Ball Other [employer] Other 09-13-2022 15:30-0500 Respiratory rate 12 /min Edmond Ball Other [employer] Other 09-13-2022 15:30-0500 Systolic blood pressure 122 mm[Hg] Edmond Ball Other [facility] [employer] Other 05-12-2022 15:28-0400 Body temperature 98.24 [degF] Reuben VIKI [facility] 05-12-2022 15:28-0400 Diastolic blood pressure 58 mm[Hg] Reuben VIKI [facility] 05-12-2022 15:28-0400 Heart rate 68 /min Reuben VIKI [facility] 05-12-2022 15:28-0400 Mean blood pressure 79 mm[Hg] Reuben VIKI [facility] 05-12-2022 15:28-0400 SaO2% (BldA) [Mass fraction] 95 % Reuben VIKI [facility] 05-12-2022 15:28-0400 Systolic blood pressure 122 mm[Hg] Reuben VIKI [facility] 05-12-2022 14:46-0400 Diastolic blood pressure 78 mm[Hg] Reuben VIKI [facility] 05-12-2022 14:46-0400 Heart rate 82 /min Reuben VIKI [facility] 05-12-2022 14:46-0400 Mean blood pressure 97 mm[Hg] Reuben VIKI [facility] 05-12-2022 14:46-0400 Respiratory rate 16 /min Reuben VIKI [facility] 05-12-2022 14:46-0400 Systolic blood pressure 135 mm[Hg] Reuben VIKI [facility] 05-12-2022 13:00-0400 Hourly Rounding Reuben VIKI [facility] 05-12-2022 13:00-0400 Promise to Return Reuben VIKI [facility] 05-12-2022 12:00-0400 Hourly Rounding Reuben VIKI [facility] 05-12-2022 12:00-0400 Promise to Return Reuben VIKI [facility] 05-12-2022 11:00-0400 Blood Pressure Location Reuben VIKI [facility] 05-12-2022 11:00-0400 Body temperature 99.68 [degF] Reuben VIKI [facility] 05-12-2022 11:00-0400 BP/Pulse Patient Position Reuben VIKI [facility] 05-12-2022 11:00-0400 Diastolic blood pressure 67 mm[Hg] Reuben VIKI [facility] 05-12-2022 11:00-0400 Heart rate 61 /min Reuben VIKI [facility] 05-12-2022 11:00-0400 Hourly Rounding Reuben VIKI [facility] 05-12-2022 11:00-0400 Mean blood pressure 83 mm[Hg] Reuben VIKI [facility] 05-12-2022 11:00-0400 Promise to Return Reuben VIKI [facility] 05-12-2022 11:00-0400 Respiratory rate 18 /min Reuben VIKI [facility] 05-12-2022 11:00-0400 Systolic blood pressure 116 mm[Hg] Reubenmichelle CISNEROSSLIN [facility] 05-12-2022 10:00-0400 Mean blood pressure 82 mm[Hg] Reubenmichelle CISNEROSSLIN [facility] 05-12-2022 07:53-0400 Heart rate 64 /min Reubenmichelle CISNEROSSLIN [facility] 05-12-2022 07:00-0400 Body temperature 98.06 [degF] Reuben CISNEROSSLIN [facility] 05-12-2022 07:00-0400 SaO2% (BldA) [Mass fraction] 94 % Reubenmichelle CISNEROSSLIN [facility] 05-12-2022 06:48-0400 Heart rate 69 /min Reubenmichelle YOUNGLIN [facility] 05-12-2022 04:00-0400 SaO2% (BldA) [Mass fraction] 99 % Reuben CISNEROSSLIN [facility] 05-11-2022 20:39-0400 Mean blood pressure 81 mm[Hg] Reuben CISNEROSSLIN [facility] 05-11-2022 17:14-0400 Blood Pressure Location Reubenmichelle CISNEROSSLIN [facility] 05-11-2022 17:14-0400 BP/Pulse Patient Position Reubenmichelle CISNEROSSLIN [facility] 05-11-2022 17:14-0400 Mean blood pressure 90 mm[Hg] Reubenmichelle CISNEROSSLIN [facility] 05-11-2022 08:21-0400 Heart rate 76 /min Reubenmichelle CISNEROSSLIN [facility] 05-10-2022 02:27-0400 Respiratory rate 11 /min Reuben CISNEROSSLIN [facility] 05-10-2022 02:21-0400 Respiratory rate 15 /min Reuben CISNEROSSLIN [facility] 05-09-2022 21:00-0400 gluc 93 mg/dL Reuben DREW [facility] 05-09-2022 21:00-0400 gluc Reuben DREW [facility] 12-15-2021 10:38-0400 Diastolic blood pressure 66 mm[Hg] Juaquin Owen [facility] 12-15-2021 10:38-0400 Mean blood pressure 92 mm[Hg] Juaquin Owen [facility] 12-15-2021 10:38-0400 Systolic blood pressure 143 mm[Hg] Juaquin Owen [facility] 12-15-2021 10:30-0400 Blood Pressure Location Juaquin Owen [facility] 12-15-2021 10:30-0400 Diastolic blood pressure 64 mm[Hg] Juaquin Owen [facility] 12-15-2021 10:30-0400 Heart rate 65 /min Juaquin Owen [facility] 12-15-2021 10:30-0400 Respiratory rate 18 /min Juaquin Owen [facility] 12-15-2021 10:30-0400 SaO2% (BldA) [Mass fraction] 98 % Juaquin Owen [facility] 12-15-2021 10:30-0400 Systolic blood pressure 144 mm[Hg] Juaquin Owen [facility] 12-13-2021 14:00-0400 Body temperature 98.96 [degF] Steffen Castle [facility] 12-13-2021 14:00-0400 Heart rate 80 /min Steffen Castle [facility] 12-13-2021 14:00-0400 Mean blood pressure 89 mm[Hg] Steffen Castle [facility] 12-13-2021 14:00-0400 Respiratory rate 10 /min Steffen Castle [facility] 12-13-2021 11:05-0400 Hourly Rounding Steffen Castle [facility] 12-13-2021 11:05-0400 Promise to Return Steffen Castle [facility] 12-13-2021 10:22-0400 Hourly Rounding Steffen Castle [facility] 12-13-2021 10:22-0400 Promise to Return Steffen Castle [facility] 12-13-2021 09:17-0400 Hourly Rounding Steffen Castle [facility] 12-13-2021 09:17-0400 Promise to Return Steffen Castle [facility] 12-13-2021 08:46-0400 SaO2% (BldA) [Mass fraction] 97 % Steffen Castle [facility] 12-13-2021 08:10-0400 Diastolic blood pressure 68 mm[Hg] Steffen Castle [facility] 12-13-2021 08:10-0400 Heart rate 70 /min Steffen Castle [facility] 12-13-2021 08:10-0400 Systolic blood pressure 145 mm[Hg] Steffen Castle [facility] 12-13-2021 07:05-0400 Body temperature 98.06 [degF] Steffen Castle [facility] 12-13-2021 07:05-0400 Diastolic blood pressure 68 mm[Hg] Steffen Castle [facility] 12-13-2021 07:05-0400 Heart rate 70 /min Steffen Castle [facility] 12-13-2021 07:05-0400 Mean blood pressure 93 mm[Hg] tSeffen Castle [facility] 12-13-2021 07:05-0400 SaO2% (BldA) [Mass fraction] 96 % Steffen Castle [facility] 12-13-2021 07:05-0400 Systolic blood pressure 145 mm[Hg] Steffen Castle [facility] 12-13-2021 03:45-0400 Blood Pressure Location Steffen Castle [facility] 12-13-2021 03:45-0400 Body temperature 97.88 [degF] Steffen Castle [facility] 12-13-2021 03:45-0400 Diastolic blood pressure 73 mm[Hg] Steffen Castle [facility] 12-13-2021 03:45-0400 Heart rate 68 /min Steffen Castle [facility] 12-13-2021 03:45-0400 Respiratory rate 16 /min Steffen Castle [facility] 12-13-2021 03:45-0400 SaO2% (BldA) [Mass fraction] 96 % Steffen Castle [facility] 12-13-2021 03:45-0400 Systolic blood pressure 156 mm[Hg] Steffen Ross [facility] 12-13-2021 03:00-0400 Heart rate 71 /min Steffen Castle [facility] 12-13-2021 03:00-0400 Mean blood pressure 96 mm[Hg] Steffen Ross [facility] 12-13-2021 03:00-0400 Respiratory rate 11 /min Steffen Castle [facility] 12-13-2021 01:00-0400 Mean blood pressure 71 mm[Hg] Steffen Castle [facility] 12-13-2021 01:00-0400 Respiratory rate 12 /min Steffen Castle [facility] 12-12-2021 22:45-0400 Heart rate 87 /min Steffen Castle [facility] 12-12-2021 22:45-0400 Respiratory rate 18 /min Steffen Castle [facility] 12-12-2021 22:30-0400 Heart rate 71 /min Steffen Castle [facility] 12-12-2021 22:30-0400 Respiratory rate 20 /min Steffen Castle [facility] Encounters Encounter Date Encounter Type Care Provider Facility Start: 03-24-2025 End: 03-24-2025 Clinisync Result Encounter Sunny WALKER Work Phone: [facility] Unsolicited Start: 03-24-2025 End: 03-24-2025 Clinisync Result Encounter Sunny WALKER Work Phone: [facility] Unsolicited Start: 03-15-2025 End: 03-15-2025 ambulatory Edmond Pacheco DO Work Phone: [facility] Work Phone: Start: 03-15-2025 End: 03-15-2025 Patient encounter procedure Edmond Pacheco DO -[facility] Work Phone: Start: 03-13-2025 Patient encounter procedure Edmond Pacheco DO Work Phone: [facility] Start: 02-28-2025 End: 02-28-2025 Patient encounter procedure Sunny Taylor MD -[facility] [address] Work Phone: Start: 02-28-2025 End: 02-28-2025 ambulatory Edmond Pacheco DO Work Phone: [facility] Work Phone: Start: 10-08-2024 End: 10-08-2024 ambulatory PA-C CARON CARVAJAL Facility:[facility] [place] Start: 10-08-2024 End: 10-08-2024 Patient encounter procedure CARON CARVAJAL [facility] Start: 07-12-2024 ambulatory Karlee M. Lue Facility:[facility] [place] Start: 07-12-2024 End: 07-12-2024 Patient encounter procedure Karlee M. Lue [facility] Start: 07-11-2024 ambulatory Karlee M. Lue Facility:[facility] [place] Start: 07-04-2024 End: 07-04-2024 ambulatory PA-C CARON CARVAJAL Facility:[facility] Start: 07-04-2024 End: 07-04-2024 Patient encounter procedure CARON CARVAJAL [facility] Start: 07-02-2024 End: 07-02-2024 ambulatory PA-C CARON CARVAJAL Facility:[facility] Start: 07-02-2024 End: 07-02-2024 Lab Drop off CARON CARVAJAL [facility] Start: 07-02-2024 End: 07-02-2024 ambulatory PA-C CARON CARVAJAL Facility:[facility] [place] Start: 07-02-2024 End: 07-02-2024 Patient encounter procedure CARON CARVAJAL [facility] Start: 06-29-2024 End: 06-29-2024 ambulatory EDMOND BALL Facility:[facility] Start: 06-29-2024 End: 06-29-2024 Lab Drop off EDMOND BALL [facility] Start: 06-18-2024 End: 06-18-2024 ambulatory EDMOND BALL Facility:[facility] Start: 06-18-2024 End: 06-18-2024 Lab Drop off EDMOND BALL [facility] Start: 05-30-2024 End: 05-30-2024 ambulatory EDMOND BALL Facility:[facility] Start: 05-30-2024 End: 05-30-2024 Lab Drop off EDMOND BALL [facility] Start: 05-25-2024 ambulatory THAI PATEL Facility:[facility] [place] Start: 05-15-2024 End: 05-15-2024 ambulatory EDMOND BALL Facility:[facility] Start: 05-15-2024 End: 05-15-2024 Lab Drop off EDMOND BALL [facility] Start: 05-04-2024 End: 05-04-2024 ambulatory EDMOND BALL Facility:[facility] Start: 05-04-2024 End: 05-04-2024 Lab Drop off EDMOND BALL [facility] Start: 03-30-2024 End: 03-30-2024 Pre-admission assessment Gera Thomas [facility] Start: 03-14-2024 End: 03-14-2024 ambulatory PA-C Gera Thomas Facility:[facility] Start: 03-14-2024 End: 03-14-2024 Patient encounter procedure Gera Thomas [facility] Start: 03-09-2024 Refill Chaparro mccray OD Work Phone: Ophthalmology Comment on above: Refill Request Start: 03-02-2024 End: 03-02-2024 ambulatory [facility] Facility:[facility] Start: 03-02-2024 End: 03-02-2024 Patient encounter procedure Gera Thomas [facility] Start: 03-02-2024 End: 03-02-2024 ambulatory [facility] Facility:[facility] Start: 03-02-2024 End: 03-02-2024 Patient encounter procedure Gera Thomas [facility] Start: 01-12-2024 End: 01-12-2024 Emergency department patient visit [facility] Start: 12-21-2023 End: 12-21-2023 Emergency department patient visit [facility] Start: 11-23-2023 End: 11-23-2023 ambulatory DO Edmond Ball Work Phone: [facility] Work Phone: Start: 11-23-2023 End: 11-23-2023 Patient encounter procedure DO Edmond Ball Work Phone: [facility] [address] Work Phone: Start: 10-21-2023 End: 10-21-2023 Emergency department patient visit THAI PATEL [facility] Start: 09-28-2023 End: 09-28-2023 Emergency department patient visit nAt Kirk DO Work Phone: [facility] Comment on above: Fall, initial encoun ter (Primary Dx) Start: 09-15-2023 End: 09-15-2023 Emergency department patient visit Dennise Sol DO Work Phone: [facility] Comment on above: Unwitnessed fall (Pr imary Dx) Start: 09-07-2023 End: 09-07-2023 ambulatory ROJAS BROWN Facility:[facility] Start: 08-27-2023 End: 08-31-2023 ambulatory Alex Bhatti Facility:[facility] Start: 08-19-2023 End: 08-19-2023 ambulatory Edmond Pacheco Other [employer] Other Start: 08-19-2023 Telephone encounter Edmond Pacheco [facility] Start: 08-16-2023 End: 08-16-2023 ambulatory Edmond Pacheco Other [employer] Other Start: 08-16-2023 Telephone encounter Edmond Pacheco [facility] Start: 07-21-2023 End: 07-21-2023 ambulatory Chaparro Hanna Facility::[id number] Start: 07-21-2023 End: 07-21-2023 Off-Site [facility] Start: 07-20-2023 End: 07-20-2023 ambulatory Edmond Pacheco Other [employer] Other Start: 07-20-2023 Telephone encounter Edmond Pacheco [facility] Start: 07-20-2023 End: 07-22-2023 Evaluation and management of inpatient Inderjit WHITTAKERWOOD [facility] Start: 07-15-2023 End: 07-15-2023 ambulatory Inderjit ASHRAF Facility:CD:[id number] Start: 07-15-2023 End: 07-15-2023 Off-Site [facility]derjit [facility] Start: 07-13-2023 End: 07-22-2023 ambulatory Inderjit ASHRAF Facility:[facility] Start: 07-10-2023 End: 07-13-2023 ambulatory Austyn Campos Facility:[facility] Start: 07-10-2023 End: 07-13-2023 Observation Reuben DREW [facility] Start: 07-08-2023 End: 07-16-2023 Pre-admission assessment EDMOND PACHECO [facility] Start: 06-24-2023 Telephone encounter Edmond CONRAD [facility] Start: 06-24-2023 End: 06-24-[address] [facility] [employer] Other Start: 06-24-2023 End: 06-24-2023 Patient encounter procedure EDMOND PACHECO [facility] Start: 06-22-2023 End: 06-22-2023 ambulatory Edmond Pacheco Other [employer] Other Start: 06-22-2023 Telephone encounter Edmond CONRAD [facility] Start: 06-21-2023 Telephone encounter Edmond CONRAD [facility] Start: 06-21-2023 End: 06-21-2023 ambulatory EDMOND PACHECO [employer] Other Start: 06-21-2023 End: 06-21-2023 Lab Drop off EDMOND PACHECO [facility] Start: 06-20-2023 End: 06-20-2023 ambulatory Edmond Ball Other [employer] Other Start: 06-20-2023 Telephone encounter Edmond Ball [facility] Start: 05-17-2023 End: 05-17-2023 ambulatory Edmond Ball Other [employer] Other Start: 05-17-2023 Office outpatient vi sit 25 minutes Edmond Ball [facility] Start: 05-16-2023 End: 05-16-2023 ambulatory Edmond Ball Other [employer] Other Start: 05-16-2023 Telephone encounter Edmond Ball [facility] Start: 05-13-2023 End: 05-13-2023 ambulatory Edmond Ball Other [employer] Other Start: 05-13-2023 Telephone encounter Edmond Ball [facility] Start: 05-11-2023 Telephone encounter Edmond Ball [facility] Start: 05-11-2023 End: 05-11-2023 ambulatory EDMOND BALL [employer] Other Start: 05-11-2023 End: 05-11-2023 Lab Drop off EDMOND BALL [facility] Start: 05-06-2023 End: 05-06-2023 ambulatory Edmond Ball Other [employer] Other Start: 05-06-2023 Telephone encounter Edmond Ball [facility] Start: 05-05-2023 End: 05-05-2023 ambulatory Edmond Ball Other [employer] Other Start: 05-05-2023 Telephone encounter Edmond Ball [facility] Start: 05-03-2023 End: 05-03-2023 ambulatory Edmond Ball Other [employer] Other Start: 05-03-2023 Telephone encounter Edmond Pacheco [facility] Start: 04-26-2023 End: 04-26-2023 ambulatory Edmond Pacheco Other [employer] Other Start: 04-26-2023 Telephone encounter Edmond Pacheco [facility] Start: 04-06-2023 End: 04-06-2023 ambulatory dEmond Pacheco Other [employer] Other Start: 04-06-2023 Office outpatient vi sit 25 minutes Edmond Pacheco [facility] Start: 04-05-2023 End: 04-05-2023 ambulatory DO Edmond Pacheco Work Phone: [facility] Work Phone: Start: 04-05-2023 End: 04-05-2023 Patient encounter procedure DO Edmond Pacheco Work Phone: [facility] [address] Work Phone: Start: 03-31-2023 End: 03-31-2023 ambulatory Edmond Pacheco Other [employer] Other Start: 03-31-2023 Telephone encounter Edmond Pacheco [facility] Start: 03-30-2023 Telephone encounter Edmond CONRAD [facility] Start: 03-30-2023 End: 03-30-[address] [facility] [employer] Other Start: 03-30-2023 End: 03-30-2023 Lab Drop off EDMOND PACHECO [facility] Start: 03-24-2023 End: 03-24-2023 ambulatory [employer]-BC Nan Gambino Facility:CD:[id number] Start: 03-24-2023 End: 03-24-2023 Off-Site [facility] Start: 03-16-2023 End: 03-16-2023 ambulatory Inderjit WHITTAKERWOOD Facility:CD:[id number] Start: 03-16-2023 End: 03-16-2023 Off-Site Inderjit [facility] Start: 03-10-2023 End: 03-14-2023 Observation Valente VELASQUEZKWU [facility] Start: 02-14-2023 End: 02-14-[address] Junior Other [facility] [employer] Other Start: 02-14-2023 Telephone encounter Edmond Pacheco Stacey Pacheco [facility] Start: 02-07-2023 Telephone encounter Quiana Waterman APRN.PHYSICIAN INDUSTRIAL Work Phone: Neurology Comment on above: Results (Pt daughter is requesting a copy of report); Automation Analyst - Other Appointment (Returne d call and gave Fax Number to Dr. Tobi Pacheco); Automation Analyst - Other Start: 01-28-2023 Telephone encounter Yari Villa MCKINLEYW Work Phone: Neurology Comment on above: Automation Analyst - O ther Start: 01-20-2023 End: 01-20-2023 ambulatory DO Edmond Pacheco Work Phone: [facility] Work Phone: Start: 01-20-2023 End: 01-20-2023 Patient encounter procedure DO Edmond Pacheco Work Phone: [facility] [address] Work Phone: Start: 01-19-2023 End: 01-19-2023 ambulatory QUIANA WATERMAN Facility:[facility] Start: 01-19-2023 End: 01-19-2023 Patient encounter procedure Quiana Waterman APRN.PHYSICIAN INDUSTRIAL Work Phone: Neurology Comment on above: Multifactorial demen tia (HCC) (Primary Dx); Alcohol abuse; Visual hallucinations; NAWAF (obstructive sleep apnea) Start: 12-31-2022 End: 09-20-2023 Recurring Michael Rodriguez [facility] Start: 12-18-2022 End: 12-18-2022 ambulatory Edmond Pacheco Other [employer] Other Start: 12-18-2022 Telephone encounter Edmond Pacheco [facility] Start: 12-17-2022 End: 12-17-2022 ambulatory Edmond Pacheco Other [employer] Other Start: 12-17-2022 Telephone encounter Edmond Pacheco FP [facility] Start: 12-17-2022 End: 12-17-2022 Patient encounter procedure EDMOND PACHECO [facility] Start: 10-19-2022 End: 10-19-2022 ambulatory Edmond Pacheco Other [employer] Other Start: 10-19-2022 Telephone encounter Edmond Pacheco [facility] Start: 10-12-2022 End: 10-12-2022 ambulatory Edmond Pacheco Other [employer] Other Start: 10-12-2022 Nursing evaluation o f patient and report Edmond Pcaheco [facility] Start: 10-11-2022 End: 10-11-2022 ambulatory Edmond Pacheco Other [employer] Other Start: 10-11-2022 Office outpatient vi sit 15 minutes Edmond Pacheco [facility] Start: 09-23-2022 End: 09-23-2022 ambulatory NON STAFF [facility] Work Phone: Start: 09-23-2022 End: 09-23-2022 Patient encounter procedure [facility] [address] Work Phone: Start: 09-13-2022 End: 09-13-2022 ambulatory Edmond Pacheco Other [employer] Other Start: 09-13-2022 Office outpatient vi sit 25 minutes Edmond Pacheco [facility] Start: 08-27-2022 End: 08-27-2022 ambulatory Edmond Pacheco Other [employer] Other Start: 08-27-2022 Telephone encounter Edmond Pacheco FP [facility] Start: 08-26-2022 End: 08-26-2022 Patient encounter procedure Michael Rodriguez [facility] Start: 08-06-2022 Refill Chaparro Pérez er OD Work Phone: Ophthalmology Comment on above: Refill Request Start: 07-21-2022 End: 07-21-2022 ambulatory NON STAFF [facility] Work Phone: Start: 07-21-2022 End: 07-21-2022 Patient encounter procedure [facility] [address] Start: 07-05-2022 Pre-procedure evalua tion check Edmond Pacheco Other [employer] Other Start: 06-09-2022 End: 06-09-2022 Patient encounter procedure Austyn Andres [facility] Start: 06-01-2022 Refill Chaparro Pérez er OD Work Phone: Ophthalmology Comment on above: Refill Request Start: 05-24-2022 End: 06-02-2022 Pre-admission assessment Michael Rodriguez [facility] Start: 05-09-2022 End: 05-12-2022 Observation Reuben DREW [facility] Start: 02-23-2022 End: 02-23-2022 Patient encounter procedure Kimmie Morgan [facility] Start: 01-27-2022 End: 01-27-2022 Patient encounter procedure Kimmie Watsond [facility] Start: 01-26-2022 End: 01-26-2022 Patient encounter procedure Juaquin Owen [facility] Start: 01-05-2022 End: 01-05-2022 Patient encounter procedure MD Luciano Taylor Work Phone: [facility] Start: 12-15-2021 End: 12-15-2021 Patient encounter procedure Juaquin Owen [facility] Start: 12-12-2021 End: 12-13-2021 Observation Steffen [facility] Start: 12-09-2021 End: 12-09-2021 Patient encounter procedure MD Luciano Taylor Work Phone: [facility] [address] Start: 11-17-2021 End: 11-17-2021 Patient encounter procedure EDMOND JUNIOR [facility] Start: 11-04-2021 End: 11-04-2021 Patient encounter procedure EDMOND JUNIOR [facility] Start: 07-18-2020 End: 07-19-2020 Patient encounter procedure EDMOND PACHECO Facility:H1 Start: 03-18-2020 End: 03-19-2020 Patient encounter procedure EDMOND PACHECO Facility:H1 Start: 08-22-2019 Adult health examination Wallace pimentel Junior Other [employer] Other Start: 06-20-2019 Gynecological examin ation normal Edmond Pacheco Other [employer] Other Procedures Date Procedure Procedure Detail Performing Clinician Start: 03-24-2025 URINE CULTURE - [facility] Noemi tthew Aryan Ocampo PA Work Phone: Start: 09-15-2023 Ecg routine ecg w/le ast 12 lds w/i&r Dennise Sol DO Work Phone: Start: 02-05-2021 Closed reduction of nasal fracture EDMOND [employer] Start: 09-19-2014 Helene osteotomy secon d and third metatarsal. capsulotomy third metatarsophalangeal joint. Helene osteotomy second metatarsophalangeal joint. proximal interphalangeal joint arthroplasty left second digit and to the left third digit [employer] Start: 09-11-2014 Pre-surgery evaluation Edmond [employer] Other Start: 08-08-2012 Cataract (morphologi c abnormality) [employer] Back structure, excl uding neck (body structure) [employer] Comment on above: laminectomy L3-4 5/2 014 Other bilateral liga tion and division of fallopian tubes [employer] Right hammer toe and bunionectomy [employer] RIght knee arthroscopy [employer] Plan of Treatment Date Care Activity Detail Author Start: 10-12-2032 Urine microalbumin profile DTaP,Tdap,Td Vaccine (3 - Td or Tdap) [facility] Start: 04-08-2025 Influenza vaccination Influenza Vacc ine (#1) [facility] Start: 09-12-2024 End: 09-12-2024 Patient encounter procedure 09/12/2024 10:15 AM EST Office Visit [facility] Ophthalmology [address] [facility] [place], [place] [id number] Chaparro Yarbrough, OD [address] [place], [place] [id number] 1 Year Full, Dilate, Mac OCT, ONH/GCL OCT Ophthalmology Comment on above: 1 Year Full, Roland Ahmadi OCT, ONH/GCL OCT Start: 04-08-2024 Influenza vaccination Influenza Vacc ine (#1) [facility] Start: 08-08-2023 Advance Directive Discussion Advance Directive Discussion [facility] Start: 08-08-2023 Annual Wellness Visi t (Medicare Advantage) Annual Wellness Visit (Medicare Advantage) [facility] Start: 04-08-2023 Covid-19 Vaccine ( season) Covid-19 Vaccine ( season) [facility] Start: 04-08-2023 Influenza vaccination INFLUENZA (#1) [facility] Start: 03-08-2023 Influenza vaccination Flu vaccine (# 1) [facility] Start: 03-02-2023 Pneumococcal Vaccine : 65+ (2 of 2 - PCV) Pneumococcal Vaccine: 65+ (2 of 2 - PCV) [facility] Start: 03-02-2023 Pneumococcal Vaccine : 65+ Years (2 of 2 - PCV) Pneumococcal Vaccine: 65+ Years (2 of 2 - PCV) [facility] Start: 08-08-2022 ADVANCE DIRECTIVE DISCUSSION ADVANCE DIRECTIVE DISCUSSION [facility] Start: 08-08-2022 DEPRESSION ASSESSMENT DEPRESSION ASS ESSMENT [facility] Start: 04-08-2022 Influenza vaccination INFLUENZA (#1) [facility] Start: 09-15-2021 COVID-19 VACCINE (4 - Booster for Pfizer series) COVID-19 VACCINE (4 - Booster for Pfizer series) [facility] Start: 08-08-2021 ADVANCE DIRECTIVE DISCUSSION ADVANCE DIRECTIVE DISCUSSION [facility] Start: 08-08-2021 DEPRESSION ASSESSMENT DEPRESSION ASS ESSMENT [facility] Start: 09-07-2019 Shingrix Vaccine (2 of 2) Shingrix Vaccine (2 of 2) [facility] Start: 2007 BONE DENSITY BONE DENSITY [facility] Start: 2007 Pneumococcal 65+ yea rs Vaccine (1 - PCV) Pneumococcal 65+ years Vaccine (1 - PCV) [facility] Start: 2007 Screening for osteoporosis Bone Density Screening [facility] Start: 2002 Respiratory Syncytia l Virus (RSV) or age 60 yrs+ (1 - 1-dose 60+ series) Respiratory Syncytial Virus (RSV) or age 60 yrs+ (1 - 1-dose 60+ series) [facility] Start: 2002 RSV Vaccine (1 - 1-dose 60+ series) RSV Vaccine (1 - 1-dose 60+ series) [facility] Start: 1997 Screening for osteoporosis DEXA (modify frequency per FRAX score) [facility] Start: 1992 Shingles vaccine (1 of 2) Shingles vaccine (1 of 2) [facility] Start: 1987 DIABETES SCREEN DIABETES SCREEN [facility] Start: 1987 Diabetes Screening Diabetes Screenin g [facility] Start: 1961 DTaP/Tdap/Td vaccine (1 - Tdap) DTaP/Tdap/Td vaccine (1 - Tdap) [facility] Start: 1961 SHINGRIX VACCINE (1 of 2) SHINGRIX VACCINE (1 of 2) [facility] Start: 1961 Urine microalbumin profile DTAP,TDAP,TD (1 - Tdap) [facility] Start: 1954 Depression Monitoring Depression Mon itoring [facility] Start: 1953 Screening for malignant neoplasm of cervix Cervical Cancer Screening [facility] Start: 1948 PNEUMOCOCCAL: 65+ (1 - PCV) PNEUMOCOCCAL: 65+ (1 - PCV) [facility] Start: 01-30-1943 COVID-19 VACCINE (#1) COVID-19 VACCI NE (#1) [facility] EKG 12 Lead EKG 12 Lead ECG STAT 09/15/2023 11:15 AM EST [facility] URINE CULTURE - [facility] URINE CULTU RE - [facility] Lab Routine 03/24/2025 5:08 PM EDT [facility] Work Phone: [facility] Immunizations Immunization Date Immunization Notes Care Provider [facility] le[facility] 05-17-2023 influenza, high dose seasonal, preservative-free Edmond Pacheco Other [employer] Other 05-17-2023 influenza virus vaccine, unspecified formulation DO Edmond Pacheco Work Phone: [facility] 10-12-2022 tetanus and diphther ia toxoids, adsorbed, preservative free, for adult use (2 Lf of tetanus toxoid and 2 Lf of diphtheria toxoid) DO Edmond Pacheco Work Phone: [facility] 10-12-2022 tetanus and diphther ia toxoids, adsorbed, preservative free, for adult use (5 Lf of tetanus toxoid and 2 Lf of diphtheria toxoid) Edmond Pacheco Other [employer] Other 04-20-2022 Influenza vaccine, quadrivalent, adjuvanted Edmond Pacheco DO Work Phone: [facility] 04-20-2022 influenza virus vaccine, split virus (incl. purified surface antigen) Edmond Pacheco Other [employer] [facility] [employer] Other 04-20-2022 influenza virus vaccine, unspecified formulation Inderjit [employer] 03-02-2022 pneumococcal polysaccharide vaccine, 23 valent Inderjit [employer] 07-21-2021 SARS-CoV-2 (COVID-19 ) mRNA BNT-162b2 vax [employer]derjit [employer] 09-25-2020 SARS-CoV-2 (COVID-19 ) mRNA BNT-162b2 vax Inderjit [employer] Comment on above: Result Comment: 2022: [id number] 09-04-2020 SARS-CoV-2 (COVID-19 ) mRNA BNT-162b2 vax Inderjit ASHRAF [employer] Comment on above: Result Comment: 2022: [id number] 07-13-2019 zoster vaccine recombinant Inderjit [employer] 06-21-2019 influenza virus vaccine, split virus (incl. purified surface antigen) Edmond Pacheco Other [facility] [employer] Other 06-21-2019 influenza virus vaccine, unspecified formulation DO Edmond Pacheco Work Phone: [facility] 06-21-2019 pneumococcal conjuga te vaccine, 13 valent Edmond Pacheco Other [facility] 04-20-2016 tetanus toxoid, redu bhupendra diphtheria toxoid, and acellular pertussis vaccine, adsorbed Edmond Pacheco Other [facility] 05-06-2015 influenza virus vaccine, split virus (incl. purified surface antigen) Edmond Pacheco Other [facility] [employer] Other 05-06-2015 influenza virus vaccine, unspecified formulation DO Edmond Pacheco Work Phone: [facility] 06-18-2014 influenza, injectabl e, quadrivalent, contains preservative Edmond Pacheco DO Work Phone: [facility] Payers Date Payer Category Payer Self-pay [id number] 2022 Medicare (Managed Care) [facility] MEDIC[facility] [id number] 2020 Medicare UHC MEDICARE UHC MEDICARE ADVANTAGE PPO [id number] 2020-Present [phone] [address] [address] [place] [address] PPO [id number] 2020 Private Health Insurance [id number] 1959 Medicare [id number] 1940 Unknown [id number] 2.16.840.1.832866.3.579.2 .593 1942 Unknown [id number] 2.16.840.1.641364.3.579.2 .593 1942 Unknown [id number] 2.16.840.1.272129.3.579.2 .182 1942 Unknown [id number] 2.16.840.1.831166.3.579.2 .182 1942 Unknown [id number] 2.16.840.1.372062.3.579.2 .182 1942 Unknown [id number] 2.16.840.1.437472.3.579.2 .182 1942 Unknown [id number] 2.16.840.1.596849.3.579.2 .182 1942 Unknown [id number] 2.16.840.1.289574.3.579.2 .727 1942 Unknown [id number] 2.16.840.1.352257.3.579.2 .727 1942 Unknown [id number] 2.16.840.1.793463.3.579.2 .727 1942 Unknown [id number] 2.16.840.1.785249.3.579.2 .727 1942 Unknown [id number] 2.16.840.1.101116.3.579.2 .727 1942 Unknown [id number] 2.16.840.1.637776.3.579.2 .727 1942 Unknown [id number] 2.16.840.1.318725.3.579.2 .727 1942 Unknown [id number] 2.16.840.1.218833.3.579.2 .72 1942 Unknown [id number] 2.16.840.1.993502.3.579.2 .727 1942 Unknown [id number] 2.16.840.1.226195.3.579.2 .72 1942 Unknown [id number] 2.16.840.1.481013.3.579.2 .72 1942 Unknown [id number] 2.16.840.1.713821.3.579.2 .72 1942 Unknown [id number] 2.16.840.1.948829.3.579.2 .72 1942 Unknown [id number] 2.16.840.1.135874.3.579.2 .72 1942 Unknown [id number] 2.16.840.1.532410.3.579.2 .72 1942 Unknown [id number] 2.16.840.1.066722.3.579.2 .1942 Unknown [id number] 2.16.840.1.907343.3.579.2 .72 1942 Unknown [id number] 2.16.840.1.687389.3.579.2 .72 1942 Unknown [id number] 2.16.840.1.566250.3.579.2 .72 1942 Unknown [id number] 2.16.840.1.639214.3.579.2 .72 1942 Unknown [id number] 2.16.840.1.593562.3.579.2 .72 1942 Unknown [id number] 2.16.840.1.874163.3.579.2 .727 1942 Unknown [id number] 2.16.840.1.980332.3.579.2 .727 1942 Unknown [id number] 2.16840.1.133356.3.579.2 .727 1942 Unknown [id number] 2.16.840.1.336579.3.579.2 .727 1942 Unknown [id number] 2.16840.1.640612.3.579.2 .72 1942 Unknown [id number] 2.16840.1.253897.3.579.2 .727 Medicare [id number] 2.16.840.1.810867.19 Medicare Medicare [id number] Unknown [id number] 2..840.1.147086.3.579.2 .531 Social History Date Type Detail Facility Start: 03-29-2020 End: 01-16-2023 Tobacco smoking status Never smoked tobacco (finding) [facility] Start: 12-12-2021 Tobacco smoking status Never [facility] Start: 01-17-2023 End: 09-15-2023 Sex Assigned At Female [facility] Start: 1940 Sex Assigned At Female F [facility] Start: 11-16-2017 End: 01-16-2023 Tobacco use and exposure Smokeless tobacco non-user [facility] Start: 01-28-2020 End: 09-07-2023 Alcohol intake Current drinker of alcohol (finding) [facility] Start: 08-31-2013 Alcohol Comment beer, wine (3- 4 beers a day on occasion) [facility] Start: 1940 Sex Assigned At Not on file C [facility] Tobacco smoking status PAIS Tobacco smoking consumption unknown [employer] Start: 01-17-2023 End: 09-15-2023 History of Social function [employer] How often to you hav e a drink containing alcohol? Never [employer] Start: 09-28-2023 Alcohol intake Ex-drinker (finding) [facility] Sex Female (finding) [facility] Start: 01-17-2023 Alcoholic beverage intake Lifetime non-drinker (finding) [facility] Start: 01-16-2023 Alcohol Comment caffiene 4cups/day N [facility] NEGATED: Highlighted rowStart: NINF History of tobacco use Passive smoker [facility] Medical Equipment Procedure Code Equipment Code Equipment Origin al Text Equipment Identifier Dates Lens Iol +21 Niels p 13mm 6mm Pc - [id number] Start: 09-11-2013 Lens Iol +20.5 [employer] Iq - [id number] Start: 09-18-2013 Comment on above: Description: IQ Functional Status Date Assessment Result Facility 07-12-2024 Functional Status N/A [facility] 07-02-2024 Functional Status N/A [facility] 03-02-2024 Functional Status No [facility] 07-10-2023 Functional Status N/A [facility] 07-10-2023 Functional Status [facility] 03-10-2023 Functional Status N/A [facility] 03-10-2023 Functional Status [facility] 05-10-2022 Functional Status No [facility] 05-09-2022 Functional Status [facility] Clinical Notes 05-23-2014 to 07-12-2024 Telephone Encounter - Chaparro Yarbrough OD - 03/12/2024 10:15 AM EDTTelephone Encounter - Chaparro Yarbrough, ANDRESSA - 03/12/2024 10:15 AM EDTTelephone Encounter - [...] provider. Document Revised: 02/22/2023 Document Reviewed: 02/22/2023 [employer] Patient Education 2023 [employer]. Follow Up Care 07/06/2024 11:33:09 With:CARON CARVAJAL PA-C, URL Address: [address] [facility] [place] [address] When: Unknown [facility] 07-02-2024 Hospital Discharge instructions Patient Education [...] Treatment for this condition includes: Antibiotic medicine. Uods-srq-fvpljhf medicines to treat discomfort. Drinking enough water [...] Follow these instructions at home: Medicines Take nbht-wvg-evtwnzc and prescription medicines only as told by [...] provider. Document Revised: 03/01/2021 Document Reviewed: 03/06/2021 [employer] Patient Education 2023 [employer]. 07/02/2024 16:12:28 ESBL Infection ESBL Infection ESBL [...] have recently been admitted to a hospital, usp, or other health care facility. You have [...] clean their hands with an alcohol-based hand application counselor, before they enter or leave your room. [...] clean their hands with an alcohol-based hand application counselor, before they enter or leave your room. Taking antibiotics exactly as told by your health care provider. Washing your hands with soap and water for at least 20 seconds, or cleaning your hands with an alcohol-based hand application counselor, after you do any of these things: [...] cleaning your hands with an alcohol-based hand application counselor, especially after using the bathroom. This information is not intended to replace advice given to you by your health care provider. Make sure you discuss any questions you have with your health care provider. Document Revised: 12/05/2020 Document Reviewed: 12/06/2020 [employer]ure Patient Education 2023 [employer]. 07/02/2024 16:12:27 Antibiotic Resistance Antibiotic Resistance Antibiotics [...] provider. Document Revised: 02/22/2023 Document Reviewed: 02/22/2023 [employer] Patient Education 2023 [employer]. Follow Up Care 07/02/2024 09:46:39 With:JANETTE CAMACHO, CARON Kwan, URL Address: [facility] [place] [address] When: Unknown Comments:F/u in 3 months [facility] 07-02-2024 Note Urology Office/Clini c Note [...] hx of dementia, daughter present. Lives at [facility]. 1. Recurrent UTI (N39.0: Urinary tract infection, [...] historian, unable to communicate her UTI symptoms. IAnt PA-C personally scribed Caron Carvajal PA-C 07/02/2024 16:16:49. Electronically signed by jeet Mcmanus 07/02/2024 16:16:49. Documentation recorded by the jeet Bruner PA-C_ accurately reflects the services(s) I performed and decisions made by me. Authenticated by Lakshmi (more content not included)... [facility] Comment on above: Result Comment: Elec tronically [...] have recently been admitted to a hospital, usp, or other health care facility. ??? You [...] clean their hands with an alcohol-based hand application counselor, before they enter or leave your room. [...] their hands wi (more content not included)... [facility] 05-15-2024 Evaluation + Plan note Diagnostic Tests PendingUrine Culture 05/15/24 [facility] 05-04-2024 Evaluation + Plan note Diagnostic Tests PendingUrine Culture 05/04/24 [facility] 03-14-2024 Note Echocardiology Procedure Exam Date/Time Accession # Ordering Dr. Ritter Transthoracic w/ 03/14/2024 14:23 EDT [id number] Gera Thomas PA-C Contrast CPT code 01582 C8929 Reason for Exam (Echo Transthoracic w/ Contrast) Shortness of breath, Edema, Dizziness R60.0;Evaluate Ejec Fraction Report [facility] [address] [place] [address] Adult Echocardiogram Report Name: CARIDAD CARIAS I Study Date: 03/14/2024 01:07 PM BP: 143/63 mmHg Patient [facility]: [facility] HR: 59 : 1940 Gender: Female Height: 60 in Age: 83 yrs Ethnicity: WHT Weight: 208 lb Reason For Study: Evaluate Ejec Fraction BSA: 1.9 m2 History: CVA,Alcohol use Ordering Physician: Martha^Gera^A Referring Physician: Gera Thomas Performed By: Carla [...] David Calderon MD Transcribed by: CECILE Technologist: [facility] 03-12-2024 Telephone encounter Note Rx sent in [facility] 03-12-2024 Miscellaneous Notes Rx sent in Patient [...] review and advise. documented in this encounter [facility] 03-09-2024 Telephone encounter Note Patient has been reminded to check with pharmacy 24 to 48hr after request. Pt is identified by name and birthdate: Yes Patient phones requesting refills as follows: Requested Prescriptions Pending Prescriptions Disp Refills latanoprost (XALATAN) 0.005 % ophthalmic solution 2.5 mL 11 Sig: Use 1 Drop in both eyes once daily. Please review and advise. [facility] 09-15-2023 Hospital Discharge instructions Dennise Sol DO [...] cannot be sent through Care Everywhere.Fall Prevention (Citizen Of [place])documented in this encounter [facility] 09-07-2023 Note HNO ID: [id number] Author: CHAPARRO YARBROUGH OD Service: ? 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 [facility] She was discharged in stable condition. [...] hx, worsening, Consult and Co-manage Consult to Dog Bather - Completed -- 08/28/23 0:39:00 EST, Other [...] LEATHA Zaman Within 2 to [address] [address]- Additional Instructions: [facility] Comment on above: Result Comment: Elec tronically Signed By: Davy RODRIGUEZ, Ahmadavid\.br\Date and Time Signed: 08/31/23 11:59 EST 08-30-2023 Note PT Evaluation done t his date. Pt. with on AM-PAC. Needs cues and supervision for safety with all activities due to dementia. Recommend 28/02 supervision but no further PT needs. [facility] 08-29-2023 Note Chief Complaint I had a [...] Patient is alert. Not oriented to Willson Robin, year, or month. Attention seems fairly normal [...] Bedtime Sodium Chlori (more content not included)... [facility] Comment on above: Result Comment: Elec tronically Signed By: Rashida Moraes RN\.br\Date and Time Signed: 08/29/23 07:31 EST\.br\Electronically Co-Signed By: Tapan Bender DO\.br\Date and Time Co-Signed: 08/29/23 10:12 EST 08-29-[address] in dementia facility. [facility] is working with patient/family for appropriate d/c planning and referral is out to facilities with dementia units. SW will remain available and assist as/if needed. [facility] 08-28-2023 Note Chief Complaint I had a [...] events. Physical and Occupational Therapy had recommended [facility] facility therefore she was discharged to the transitional care unit. Per review of the chart it appears on 21 July she was discharged from the TCU to [facility]. Other past medical history included in review of previous charts includes obstructive sleep apnea with poor tolerance of CPAP, anxiety depression, psoriatic arthritis for which she had seen Dr. Taylor, hypertension, GERD, history of cervical and lumbar 9 disease with remote lumbar surgeries. Patient was brought into the emergency department this evening with below Been advised by the emergency aging department supervisor to access to the patient's daughter who [...] patient's daughter would stay with the patient bxhvdd-ymw-svuaw. Patient's daughter was not present during the [...] she was at a friend's house in [place], she was not oriented to president even [...] breath, no cou (more content not included)... [facility] Comment on above: Result Comment: Elec tronically Signed By: Reuben DREW DO\.br\Date and Time Signed: 08/28/23 00:37 EST 08-19-2023 Evaluation note Encounter Date Diagnosis Assessment Notes Aug, Dysuria (ICD-10 - R30.0) [employer] Other [id number] NoteAdmission and Discharge Information Admitting Physician - [...] 58.4 % Lymph Auto - 32.5 % Marshall Auto - 7.4 % Eos Auto - 1.4 % Basophil Auto - 0.3 % Neutro Absolute - 3.6 E9/L Lymph Absolute - 2.0 E9/L Marshall Absolute - 0.5 E9/L Eos Absolute - [...] - 90 mg/dL POC Device SN - [id number] POC User ID - [id number] POC Username - JAGRUTI FLOR CBC w/ [...] Rate Automated (07/11/2023) Sed (more content not included)...[facility] Result Comment: Electronically Signed By: Rimma Paez\.br\Date and Time Signed: 07/19/23 13:14 EST\.br\Electronically Co-Signed By: HARPER RODRIGUEZ, Valente\.br\Date and Time Co-Signed: 07/25/23 09:12 [id number] Hospital Discharge instructions Patient Education 07/13/2023 11:39:06 Sleep Apnea, Dyew-nj-Xdca Sleep Apnea Sleep apnea affects breathing during [...] quitting, ask your doctor. General instructions Take avpd-elv-kwjjdyo and prescription medicines only as told by [...] provider. Document Revised: 03/03/2022 Document Reviewed: 07/03/2021 GlycoPure Patient Education 2022 [employer]. 07/13/2023 11:38:57 Hyponatremia, Stvw-tf-Zsqp Hyponatremia Hyponatremia is when the amount of [...] symptoms. Follow these instructions at home: Take qwqj-lnp-vgjoioj and prescription medicines only as told by [...] provider. Document Revised: 02/02/2022 Document Reviewed: 02/02/2022 [employer]ure Patient Education 2022 [employer]. Follow Up Care 07/10/2023 16:40:18 With:EDMOND PACHECO DO Address: [facility] [place] [address] When:2 weeks Comments:Call for followup appointment With:Andres RODRIGUEZ, LEATHA Zaman Address: [place] [place] [address]- When:2 to 4 weeks [facility]12-05-2023 Evaluation + Plan noteExtracted from: Title:APSO [...] Remote history of lower back surgery at [facility]. Patient is on Zanaflex we will continue [...] Depression, unspecified) Extracted from: Title:APSO Note Author:Rimma Paez Date:07/11/23 1. Acute encephalopathy (G93 .40: Encephalopathy, [...] Remote history of lower back surgery at [facility]. Patient is on Zanaflex we will continue [...] Title:Admission H & P Author:Reuben DREW DO Date:07/10/23 1. Acute encephalopathy (G93 .40: Encephalopathy, [...] Remote history of lower back surgery at [facility]. Patient is on Zanaflex we will continue [...] up is negative Extracted from: Title:ED Note Author:Ryan Boss MD Date: 1. History of dementia (Z86. 59: Personal history of other mental and behavioral disorders) 2. Altered mental status (R41.82: Altered mental status, unspecified) Orders: Capillary Glucose POC ED Physician consult Hospitalist for continued care Future Appointments Appointment Date:07/15/2023 10:00:00 AM Scheduled Provider: Location:.CARDIO Appointment Type:CV Holter/Event (FT) [facility]12-05-2023 NoteBasic Information The patient is a [...] significantly confused and hallucinating and not at [facility]. The patient was brought in by family [...] Count -- 1 -- (more content not included)...[facility] AndersonComment on above:Result Comment: Electronically Signed By: Rashida Moraes RN\.br\Date and Time Signed: 07/12/23 07:18 EST\.br\Electronically Co-Signed By: Austyn Campos MD\.br\Date and Time Co-Signed: 07/12/2309:57 [id number] NoteChief Complaint significant change in mental status [...] had remote surgery lower lumbar spine at [facility]. Patient was brought into the emergency department [...] having the Hall[employer] channel on with the Red[employer] System movie she was uncertain. She was not oriented to the president's name but she was able to do simple math i.e. 2+2 = 4. I therefore called patient's daughter Linh who is the power of divorce attorney at [phone] to obtain patient's recent history. Her daughter [...] twice daily and she does have a community associate. She does state since her neuropsych evaluation [...] no dizziness, no numbness, (more content not included)...[facility] AndersonComment on above:Result Comment: Electronically Signed By: Reuben DREW DO.anusha\Date and Time Signed: 07/11/23 00:06 [id number] Evaluation note* Encounter Date Diagnosis Assessment Notes Treatment Notes Treatment Clinical Notes Jun, Acute cystitis without hematuria (ICD-10 - N30.00) Jun, Primary hypertension (ICD-10 - I10) [facility] Other 11-14-2023 Evaluation note* Encounter Date Diagnosis Assessment Notes Treatment Notes Treatment Clinical Notes Jun, Acute cystitis without hematuria (ICD-10 - N30.00) [facility] Other 11-13-2023 Evaluation note* Encounter Date Diagnosis Assessment Notes Treatment Notes Treatment Clinical Notes Jun, Dysuria (ICD-10 - R30.0) [facility] Other [id number] Evaluation note* Encounter Date Diagnosis Assessment Notes Treatment Notes Treatment Clinical Notes May, Obstructive sleep apnea (ICD-10 - G47.33) AHI 12 This patient is aware of the benefits associated with NAWAF: With continued use, the patient reduces the risk for OR, CVA, HTN, cardiac dysrhythmias and sudden cardiac [...] Acute cystitis without hematuria (ICD-10 - N30.00) [facility] Other 10-04-2023 Evaluation note* Encounter Date Diagnosis Assessment Notes Treatment Notes Treatment Clinical Notes May, Dysuria (ICD-10 - R30.0) [facility] Other 09-19-2023 Evaluation note* Encounter Date Diagnosis Assessment Notes Treatment Notes Treatment Clinical Notes Apr, Mild episode of recurrent major depressive disorder (ICD-10 - F33.0) [facility] Other 08-30-2023 Evaluation note* Encounter Date Diagnosis [...] use, the patient reduces the risk for OR, CVA, HTN, cardiac dysrhythmias and sudden cardiac [...] improve w/ Bactrim, which was moderately sensitive [place] w/ Levoquin x 5 days Mar, Palpitation (ICD-10 - R00.2) Hydrate and avoid stimulants. Continue Metoprolol at this time. 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 Requires reminders to use adaptive device. Fall precautions [facility] Other 08-23-2023 Evaluation note* Encounter Date Diagnosis Assessment Notes Treatment Notes Treatment Clinical Notes Mar, Acute cystitis without hematuria (ICD-10 - N30.00) [facility] Other 08-07-2023 Evaluation + Plan noteExtracted from: Title:Discharge Note Author:Davy RODRIGUEZ, Alex Hernandez ate:03/14/23 Stable Discharge To, Anticipated II - Assisted Unit Discharged to - Home independently TCU [...] LEATHA Zaman Within 2 to 4 weeks [facility] [place] [address]- Additional Instructions: Fall Prevention in the Home, Adult, Gmub-kn-Hsyj Extracted from: Title:APSO Note Author:Barrie Rodriguez DO e:03/13/23 1. Altered mental status, un specified [...] Sbsq Hospital Care/Day Straight Fwd 25 Minutes [id number] 2. Fall at home (W19.XXXA: Unspecified fall, [...] Extracted from: Title:APSO Note Author:Barrie Rodriguez DO e:03/12/23 1. Altered mental status, un specified [...] unspecified (R41.82: Altered mental status, unspecified) Ordered: [facility] Care/Day Straight Fwd 25 Minutes [id number] [facility] Care/Day Straight Fwd 25 Minutes 93385 2. Fall at home (W19.XXXA: Unspecified fall, [...] to Resource Center Extracted from: Title:APSO Note-neurology Author:Mahendra Kim RN Date:03/12/23 Reason for consult: Acute on chronic [...] Extracted from: Title:APSO Note Author:Barrie Rodriguez DO e:03/11/23 1. Altered mental status, un specified [...] unspecified (R41.82: Altered mental status, unspecified) Ordered: [facility] Care/Day Moderate 35 Minutes [id number] 2. Fall at home (W19.XXXA: Unspecified fall, [...] BID, # 90 tab(s), Refills(s) 0, Pharmacy: [facility]/pharmacy #[id number], 152.4, cm, 05/09/22 21:11:00 EDT, Height/Length [...] Signs Weight Extracted from: Title:Consult Note-neurology Author:Judy CROWLEY, N ichole Date:03/11/23 Reason for consult: Acute [...] Scheduled Provider:Inderjit ASHRAF MD Location:Extended Care Appointment Type:[facility]08-07-2023 Hospital Discharge instructions Patient Education 03/14/2023 09:22:15 Fall Prevention in the Home, Adult, Atkr-me-Npdy Fall Prevention in the Home, Adult Falls [...] Keep items that you use often in tfpr-lf-escfk places. Lower the shelves around your home [...] of the way. Do not use floor divehi or wax that makes floors slippery. What [...] Disease Control and Prevention, STEADI: www.cdc.gov National [place] on Aging: www.diann.nih.gov Contact a doctor if: [...] provider. Document Revised: 04/26/2022 Document Reviewed: 02/25/2021 Elsevier Patient Education 2022 [employer]. Follow Up Care 03/10/2023 11:16:19 With:Andres RODRIGUEZ, LEATHA Zaman Address: [address] [address]- When:2 to 4 weeks [facility]07-10-2023 Evaluation note* Encounter Date Diagnosis Assessment Notes Treatment Notes Treatment Clinical Notes Feb, Obstructive sleep apnea (ICD-10 - G47.33) AHI 12 [facility] Other 07-03-2023 Miscellaneous Notes* Telephone Encounter - Joyce Mohamud RN - 02/07/2023 2:27 PM EDT RN returned daughter's phone call, no answer, left a message that I faxed over the last office visit notes to Dr. Tobi Pacheco to [facility] [phone]. Joyce Mohamud RN * Telephone Encounter - Blaise Higginbotham Pss - 02/07/2023 2:11 PM EDT Dtr, Linh HULLM on [facility] Nurse Line on 02/07 @ 1:25P. Linh stated she was sorry she missed the Nurse call re: mom. Pt. verified 1940. Linh provided the fax number for Dr. Tobi Pacheco . Linh's contact number is . Thank you, Blaise documented in this encounterRiverview Health Institute07-03-2023 Miscellaneous Notes* Telephone Encounter - Joyce Mohamud RN - 02/07/2023 12:55 PM EDT RN called daughter Linh back, no answer, left a detailed message that we will need the fax number to sent the requested notes to the new PCP Tobi Pacheco, [place], [place]. Joyce Pandolfi, RN * Telephone Encounter - Blaise Higginbotham Pss - 02/07/2023 12:01 PM EDT Dtr, Linh Riley LANDRY on [facility] Nurse Line on 02/10 @9:53A. Linh states pt was recently seen by the CAMPUS ADMINISTRATIVE ASSISTANT.She is wondering if she can get a Report sent to pt PCP, Tobi Pacheco in [place], [place]. Linh is POA and requesting a return call back at . Thank you, Blaise documented in this encounterRiverview Health Institute06-23-2023 Miscellaneous Notes* Telephone Encounter - LORY Vallejo [...] that you may find helpful is [facility]-Information &Referral line. Call [phone] and select option 0 for all other services & request senior resources. When reviewing the list of communities, please reference the abbreviation gonzalez listed below. IL (Independent Living) AL (Assisted Living) AL-MC (Assisted Living with secure memory care unit) AL-MS (Assisted Living with memory care support) SN-Assisted LTC-MC (long-term care with secure memory care unit) LTC-MS (long-term care with memory support) [facility] (IL; AL; SN) *Pet friendly [address] [facility], [place] [address] [facility] ([place]; SN) *Pets welcome [address] [place] [address] [facility] ([facility]; SN) *Pet friendly for small pets [address] [place] [address] [facility] Life Plan [facility] ([place]; AL; AL-; ) *Possibly pet friendly [address] [facility] [place] [address] [facility] (MC; SN; [facility]) [address], [place] [address] [facility] ([place]; [place]) [address] [facility] [place], [place] [id number] [facility] ([place]; AL; AL-; SN; [facility]) [address] [place], [place] [id number] [facility] (AL) [address] [facility] [place] [address] [facility] ([place]; AL; AL-; SN) [address] [place] [address] SW will remain available. LORY Vallejo documented in this encounterRiverview Health Institute06-14-2023 Instructions* Patient Instructions* LORY Vallejo - 01/19/2023 2:35 PM EDT Dear Ms. Carias and daughter Linh, Our team had the [...] a button. Some options for this are: iBoxPay: Call or visit https://AppArchitect/ & click on Seniors tab -Mobile System. -Fall detection. -Medication reminders. -GPS monitoring. -Alirio fencing option for wandering. -Checks heart rate, blood pressure, temperature, and oxygen levels. -Worn as a wristband. Life Alert: Call or visit www.PureForge -Offers home based and mobile system. -Offers a push button for the shower. -Comes in a lanyard. Lifefone: Call or visit www.FL3XX -Home based or mobile system. -Fall detection. -GPS detects location of emergency. -Water proof. -Worn as a lanyard, wristband, or offers a push button. Lifeline: Call or visit www.XOXO Kitchen -Home based & mobile system. -Fall detection. -GPS detects location of the emergency. -Water resistant; can be worn in the shower. -Worn as a wristband or lanyard. Lively: Call or visit wwwSava Transmedia/medical-alerts -Offers mobile systems. -Offers fall detection. -Comes in a lanyard. Also compatible with InSound Medical. Medical Alert: Call or visit www.Click Bus -Offers home based & mobile system. -Mobile system offers GPS monitoring. -Fall detection for all systems. -Systems can be worn in the bath or shower. -Two way speaker allows you to communicate with a trained response specialist who will determine who to contact for help (family, friends, or emergency responders). -Comes in a lanyard or wristband. Medical Guardian: Call or visit www.medicalBookmycabnTigris Pharmaceuticals -Offers home based and mobile system. -GPS tracking for mobile system. -Water resistant, not water proof. -Worn as a lanyard or wristband. Mobile Help: Call or visit www.Off & Away -Offers home based & mobile system. -Comes in a lanyard or small mobile device. UnaliWear: Call or visit www.Behind the Burner -Home based and mobile system. -Fall detection. [...] active individuals)? Do I want a monitored (28/02 access to emergency team) or non-monitored (calls [...] available online. The Alzheimer's Association (web site: alz.org/kee) An organization that provides education and support to individuals/caregivers affected by memory loss, Alzheimer's disease, and all forms of dementia. Available 24 hours a day, 7 days per week. Contact: Local: ; Toll free: [phone] Family Caregiver [place] (web site: Caregiver.org) JOEY Carter-- a secure online solution for quality information, support, and resources for family caregivers. Contact: Toll-free number: [phone] Advance Directives As per our discussion of advanced directives, we understand you have these documents in place whichis excellent. Follow Up Our office can be reached by calling [phone] Option 1. Sincerely, Quiana Waterman APRN.PHYSICIAN INDUSTRIAL CARLINE Strickland, [facility] LORY Vallejo documented in this encounterRiverview Health Institute06-14-2023 NoteHNO ID: [id number] Author: Quiana Waterman APRN.PHYSICIAN INDUSTRIAL Service: ? Author Type: Nurse Specialist Type: Progress Notes Filed: 01/20/2023 12:16 PM Note Text: Date: January 19, 2023 [place] [address] [place] [address] [facility] INITIAL PATIENT EVALUATION Reason for Consult: Cognitive changes, Mobility decline, and Behavioral changes I had the pleasure of seeing this 82 year old year old female at the [facility]. The patient is referred by SELF Patient [...] Activities of Daily Living Lomas Index of Comfort in Activities of Daily Living (A.D.L.) Bathing: [...] automobile with assistance of (more content not included)...[facility]06-14-2023 Nurse Note* Coty Duque RN - 01/19/2023 12:46 PM EDT Caridad Carias is a 82 year old year old right handed woman Accompanied by: daughter. 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 Patient states that she is having trouble at home and with memory Vital Signs: BP 160/81 (BP Site: Left Arm, BP Position: Sitting, BP Cuff Size: Regular Adult) Pulse (!) 54 Wt 84.5 kg (186 lb 4.8 oz) BMI 36.38 kg/m Coty Duque RN documented in this encounterRiverview Health Institute06-14-2023 History of Present illness Narrative* Quiana Waterman APRN.PHYSICIAN INDUSTRIAL - 01/19/2023 12:30 PM EDT Images from the original note were not included. Date: January 19, 2023 CARID[address] CARIAS [address] [facility] [address] [facility] INITIAL PATIENT EVALUATION Reason for Consult: Cognitive changes, Mobility decline, and Behavioral changes I had the pleasure of seeing this 82 year old year old female at the [facility]. The patient is referred by SELF Patient [...] Activities of Daily Living Lomas Index of Comfort in Activities of Daily Living (A.D.L.) Bathing: [...] POA: Yes, copy received; Linh dtr is GABBIE. Financial POA: Yes Consult [facility] NETWORK SYSTEMS ANALYST if not completed: role introduced SW will send info on local [facility] communities to the pt's dtr for review. 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 -1 son traumatically in 2008; 1 dtr Linh is local and the pt's main support. -Guardian No -Is patient a ? No I have personally reviewed and verified the above information. Quiana Waterman, FOREIGN.PHYSICIAN INDUSTRIAL PAST MEDICAL HISTORY Diagnosis Date Glaucoma suspect [...] daily. EPINEPHrine (EPIPEN) 0.3 mg/0.3 mL auto-injector Esyevootikjcj-Inzaweqw-Kvlatl (CENTRUM SILVER) tab Take 1 tablet by [...] due to lack of insight Insight: poor Eyad Cognitive Assessment (MoCA) MoCA 01/19/2023 MOCA TOTAL [...] Evaluation: Clock Drawin/5 Abstract thinking was poor. senior living memory was fair to poor. She could name 11 animals in 60 seconds and 3 words beginning with letter F in one minute. No results found for: TSH, B12, FOLATE, ASEU08-bip results available in scanned documents. However B-12 [...] diagnosis. This is her [facility] visit to [facility]. MoCA administered with score of 19/30. This [...] (Namenda) would deferto her current providers in [facility], neurology and psychiatry. Pt resides alone with assist from daughter. We discussed that dr providing her assisted living level of care. In my opinion pt would do well in [place] and would appreciate the attention and supervision. [...] which included preparing to see the patient, mxfg-cp-buvv patient care, completing clinical documentation, obtaining and/or reviewing separately obtained history, counseling and educating the patient/family/caregiver, ordering medications, te sts, or procedures, communicating with other HCPs (not separately reported) and care coordination (not separately reported). Quiana Waterman APRN, Geriatric Clinical Nurse Specialist [facility] CC: 1. Rojas Brown, OD, fax) [phone] 2. Caridad Carias, [address] [facility] [address] documented in this encounterRiverview Health Institute05-13-2023 Evaluation note* Encounter Date Diagnosis Assessment Notes Treatment Notes Treatment Clinical Notes December, Closed nondisplaced fracture of styloid process of left ulna, initial encounter (ICD-10 - S52.615A) [facility] Other 05-12-2023 Evaluation note* Encounter Date Diagnosis Assessment Notes Treatment Notes Treatment Clinical Notes December, Left arm pain (ICD-10 - M79.602) [facility] Other 03-07-2023 Evaluation note* Encounter Date Diagnosis Assessment Notes Treatment Notes Treatment Clinical Notes Oct, Puncture wound (ICD-10 - T14.8XXA) [facility] Other 03-06-2023 Evaluation note* Encounter Date Diagnosis Assessment Notes Treatment Notes Treatment Clinical Notes Oct, Open bite of unspecified finger without damage to nail, initial encounter (ICD-10 - S61.259A) Oct, Cellulitis of left upper extremity (ICD-10 - L03.114) Elevate and soak in warm water daily. Oct, Bitten by cat, initial encounter (ICD-10 - W55.01XA) Check on Tetanus status [facility] Other 02-06-2023 Evaluation note* Encounter Date Diagnosis Assessment Notes Treatment Notes Treatment Clinical Notes Sep, NSVT (nonsustained ventricular tachycardia) (ICD-10 - I47.29) Continue Metoprolol and avoid stimulants. Encouraged to exercise and lose weight. Sep, Obstructive sleep apnea (ICD-10 - G47.33) This patient is aware of the benefits associated with NAWAF: With continued use, the patient reduces the risk for OR, CVA, HTN, cardiac dysrhythmias and sudden cardiac [...] continue SSRI. 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 Pt is identified by name and birthdate: Yes Patient phones requesting refills as follows: Requested Prescriptions Pending Prescriptions Disp Refills latanoprost (XALATAN) 0.005 % ophthalmic solution 2.5 mL 0 Please review and advise. documented in this encounterRiverview Health Institute10-31-2022 Miscellaneous Notes* Telephone Encounter - Chaparro Yarbrough, OD - 06/07/2022 2:18 PM EDT Gave 1 refill last refill pt need to be seen before any refills Patrice Yarbrough * Telephone Encounter - PATSY Gaston - 06/07/2022 1:21 PM EDT Patient called regarding refill. documented in this encounterRiverview Health Institute10-05-2022 Hospital Discharge instructions Patient Education 05/12/2022 14:42:47 Core Measures: Stroke (Cerebrovascular Accident) [facility], (Custom) Stroke (Cerebrovascular Accident) A [...] factors for stroke, work with your health pharmacy customer care specialist to control them. High Blood Pressure: High [...] Please call [facility] Smoking Cessation Program at [phone] ([facility]), or [phone], ext. [phone] Diabetes: Work with your healthcare professional to [...] cholesterol diet, you can call our Ramy riveter at [phone] Ext. [phone]. The goal for total cholesterol is less [...] your risk of stroke with your health pharmacy customer care specialist. TREATMENT TIME IS OF THE ESSENCE! Medications [...] Measures will be takento prevent short and intermediate manager complications, including aspiration pneumonia, blood clots in [...] for more information on strokes, log onto www.Yieldr.Bitly or www.strokeassociation.org or call the [place] [employer] at ([phone]) 447- [phone]. Revised 08/2018 Follow Up Care 05/09/2022 20:58:58 With:EDMOND PACHECO Address: [address] [facility], [place] [address]- Business (1) When:05/19/2022 15:00:00 With:Austyn Campos MD, NEU Address: [address] [place] [address]- Business (1) When:06/08/2022 11:15:00 [facility]10-05-2022 Evaluation + Plan noteExtracted from: Title:Discharge [...] cap(s), Oral, Daily With When Contact Information Austyn Campos MD, NEU Within 2 to 4 weeks [place] [address] [place] [address]- Additional Instructions: Core Measures: Stroke (Cerebrovascular Accident) [facility], (Custom) Extracted from: Title:APSO Note- Neurology Author:Aleisha CROWLEY, Driss Chand Date:05/11/22 ASSESSMENT: Suspected neurodegenerative disorder with associated [...] Basic Metabolic Panel CBC w/ Auto Diff [place] Stroke Scale Communication Order Physician to Nursing Continuous Pulse Oximetry CT Head or Brain w/o Contrast ECG 12 Lead Adult ED Cardiac Monitoring ED Physician consult Hospitalist for continued care eGFR Ethanol Level Extra [place] Tube Extra SST Tube Hepatic Function Panel Oxygen Therapy PT & PTT Routine Capillary Glucose POC Saline Lock Insert Stroke Quality Measures Troponin 0 Hr. Troponin 3 Hr. UA With Cult Reflex Vital Signs XR Chest Single View Future Appointments Appointment Date:05/17/2022 07:30:00 AM Scheduled Provider: Location:.PHYSICAL [place] Appointment Type:PT 45 (FT) Appointment Date:05/20/2022 07:30:00 AM Scheduled Provider: Location:.PHYSICAL [place] Appointment Type:PT 45 (FT) Appointment Date:05/25/2022 07:30:00 AM Scheduled Provider: Location:.PH[place]ICAL [place] Appointment Type:PT 45 (FT) Appointment Date:05/28/2022 07:30:00 AM Scheduled Provider: Location:.PHYSICAL [place] Appointment Type:PT Re-Eval 45 (FT) Appointment Date:06/01/2022 07:45:00 AM Scheduled Provider: Location:.PHYSICAL [place] Appointment Type:PT 45 (FT) Appointment Date:06/03/2022 07:30:00 AM Scheduled Provider: Location:.PHYSICAL [place] Appointment Type:PT 45 (FT) Appointment Date:06/08/2022 07:30:00 AM Scheduled Provider: Location:.PHYSICAL [place] Appointment Type:PT 45 (FT) Appointment Date:06/10/2022 07:30:00 AM Scheduled Provider: Location:.PHYSICAL [place] Appointment Type:PT 45 (FT) Appointment Date:06/15/2022 07:30:00 AM Scheduled Provider: Location:.[place]ICAL [place] Appointment Type:PT 45 (FT) Appointment Date:06/17/2022 07:30:00 AM Scheduled Provider: Location:.[place] Appointment Type:PT 45 (FT) Appointment Date:06/22/2022 07:30:00 AM Scheduled Provider: Location:.[place] Appointment Type:PT 45 (FT) Appointment Date:06/25/2022 07:30:00 AM Scheduled Provider: Location:.[place] Appointment Type:PT Re-Eval 45 (FT) Diagnostic Tests Pending * Vitamin B1 05/10/22 Future Scheduled Tests Laboratory* Lipid Panel 12/15/21 [facility]05-10-2022 Evaluation + Plan note Future Scheduled Tests Laboratory* Lipid Panel 12/15/21 Radiology* NM Myocardial Spect Rest/Stress 1 Day 12/15/21 [facility]05-10-2022 Evaluation + Plan note Future Scheduled Tests Laboratory* Lipid Panel 12/15/21 [facility]05-08-2022 Evaluation + Plan noteExtracted from: Title:Discharge Note Author:YONY RODRIGUEZ, Mitra Zackary e:12/13/21 1. Fall (W19.XXXA: Unspecified fall, initial encounter) Ordered: [facility] Care/Day Moderate 25 Minutes 21719 2. Closed head injury (S09.90XA: Unspecified injury of head, initial encounter) Ordered: [facility] Care/Day Moderate 25 Minutes 52749 3. Nasal fracture (S02.2XXA: Fracture of nasal bones, initial encounter for closed fracture) Ordered: [facility] Care/Day Moderate 25 Minutes 24214 4. Facial laceration (S01.81XA: Laceration without foreign body of other part of head, initial encounter) Ordered: [facility] Care/Day Moderate 25 Minutes 36953 5. Acute alcohol intoxication (F10.929: Alcohol use, unspecified with intoxication, unspecified) Ordered: [facility] Care/Day Moderate 25 Minutes 28799 6. Hyponatremia (E87.1: Hypo-osmolality and hyponatremia) Ordered: [facility] Care/Day Moderate 25 Minutes 81247 7. Hx of ventricular tachycardia (Z86.79: Personal history of other diseases of the circulatory system) Ordered: [facility] Care/Day Moderate 25 Minutes [id number] Orders: Basic Metabolic Panel Basic Metabolic Panel [...] Ordered: Initial Observation Care/Day High 70 min 77064 2. Closed head injury (S09.90XA: Unspecified injury of head, initial encounter) - Will monitor at this time. - Plan as above Ordered: Initial Observation Care/Day High 70 min 43770 3. Nasal fracture (S02.2XXA: Fracture of nasal bones, initial encounter for closed fracture) - Follow up with ENT as an outpatient. Ordered: Initial Observation Care/Day High 70 min 69620 4. Facial laceration (S01.81XA: Laceration without foreign body of other part of head, initial encounter) Sutured follow up with your PCP to have the sutures removed Ordered: Initial Observation Care/Day High 70 min 81866 5. Acute alcohol intoxication (F10.929: Alcohol use, unspecified with intoxication, unspecified) - [facility] protocol ordered - Banana bag ordered - Will hold of on the Ativan as the patient is acutely intoxicated Ordered: Initial Observation Care/Day High 70 min 79084 6. Hyponatremia (E87.1: Hypo-osmolality and hyponatremia) - IV fluids as needed. Ordered: Initial Observation Care/Day High 70 min 46261 7. Hx of ventricular tachycardia (Z86.79: Personal history of other diseases of the circulatory system) - Will monitor on telemetry. Ordered: Initial Observation Care/Day High 70 min 88546 Orders: acetaminophen, 650 mg = 2 tab(s), [...] Intermittent Pneumatic Compression Device Cardiac Monitoring Clinical [place] Withdrawal Assessment Clinical [place] Withdrawal Assessment Clinical [place] Withdrawal Assessment Clinical [place] Withdrawal Assessment Communication Order Physician to Nursing [...] Vital Signs Weight Extracted from: Title:ED Note Author:Carmen Monson M.D.liliana Crespo Bertin te:12/13/21 1. Fall (W19.XXXA: Unspecifi ed fall, [...] Tests Pending * Basic Metabolic Panel 12/14/21 [facility]05-08-2022 Hospital Discharge instructions Patient Education 12/13/2021 [...] ?Adrenal gland problems. ?Metabolic conditions, such as [place] disease or syndrome of inappropriate antidiuretic hormone [...] improvement. Follow these instructions at home: Take zxue-cvo-iameggx and prescription medicines only as told by [...] 07/15/2003 Document Revised: 06/08/2019 Document Reviewed: 06/08/2019 [employer] Patient Education 2020 [employer]. 12/13/2021 10:14:05 Hyponatremia Hyponatremia Hyponatremia is when [...] ?Adrenal gland problems. ?Metabolic conditions, such as [place] disease or syndrome of inappropriate antidiuretic hormone [...] improvement. Follow these instructions at home: Take lfcj-loh-ngrerwq and prescription medicines only as told by [...] 07/15/2003 Document Revised: 06/08/2019 Document Reviewed: 06/08/2019 [employer] Patient Education 2020 [employer]. 12/13/2021 10:13:59 Alcohol Intoxication Alcohol Intoxication Alcohol [...] beverage between alcoholic drinks. General instructions Take qhpx-iqr-hoxmsrf and prescription medicines only as told by your health care provider. Do not drive after drinking any amount of alcohol. Plan for a designated hazmat cdl driver or another way to go home. [...] 05/04/2006 Document Revised: 11/14/2018 Document Reviewed: 11/14/2018 [employer] Patient Education [employer]. Follow Up Care 12/12/2021 22:19:19 With:Follow up with primary care provider Address:Unknown When: Unknown [facility]10-16-2014 Evaluation note* Encounter Date Diagnosis Assessment Notes Treatment Notes Treatment Clinical Notes May, Dysuria (ICD-10 - R30.0) Dysuria [facility] Other Evaluation + Plan note Future Appointments Appointment Date:11/17/2021 11:00:00 AM Scheduled Provider: Location:.CARDIO Appointment Type:CV Holter/Event (FT) [facility] Future App[facility]ments Appointment Date:01/27/2022 08:15:00 PM Scheduled Provider: Location:.SLEEP LAB_ Appointment Type:[facility] Sleep Study PSG (FT) Future Scheduled Tests Laboratory* Lipid Panel 12/15/21 [facility] Future Appointments Appointment Date:06/11/2022 03:30:00 PM Scheduled Provider: Location:[place] Appointment Type:PT 45 (FT) Appointment Date:06/17/2022 11:45:00 AM Scheduled Provider: Location:[place] Appointment Type:PT 45 (FT) Appointment Date:06/22/2022 11:45:00 AM Scheduled Provider: Location:[place] Appointment Type:PT 45 (FT) Appointment Date:06/24/2022 02:30:00 PM Scheduled Provider: Location:[place] Appointment Type:PT 45 (FT) Appointment Date:06/29/2022 11:45:00 AM Scheduled Provider: Location:[place] Appointment Type:PT 45 (FT) Appointment Date:07/02/2022 11:45:00 AM Scheduled Provider: Location:[place] Appointment Type:PT 45 (FT) Appointment Date:07/06/2022 12:30:00 PM Scheduled Provider: Location:[place] Appointment Type:PT Re-Eval 45 (FT) Appointment Date:07/08/2022 11:15:00 AM Scheduled Provider: Location:[place] Appointment Type:PT 45 (FT) Appointment Date:07/13/2022 11:45:00 AM Scheduled Provider: Location:[place] Appointment Type:PT 45 (FT) Appointment Date:07/15/2022 11:45:00 AM Scheduled Provider: Location:[place] Appointment Type:PT 45 (FT) Appointment Date:07/20/2022 11:45:00 AM Scheduled Provider: Location:[place] Appointment Type:PT 45 (FT) Appointment Date:07/22/2022 10:45:00 AM Scheduled Provider: Location:[place] Appointment Type:PT 45 (FT) Appointment Date:07/27/2022 11:45:00 AM Scheduled Provider: Location:[place] Appointment Type:PT 45 (FT) Appointment Date:07/29/2022 11:45:00 AM Scheduled Provider: Location:[place] Appointment Type:PT 45 (FT) Appointment Date:08/03/2022 11:00:00 AM Scheduled Provider: Location:[place] Appointment Type:PT Re-Eval 45 (FT) Diagnostic Tests Pending * Methylmalonic Acid 06/09/22 Future Scheduled Tests Laboratory* Lipid [facility]15[facility] Future Appointments Appointment Date:03/30/2023 01:45:00 PM Scheduled Provider: [place]:.[place] Appointment Type:PT Re-Eval 45 (FT) [facility] Evaluation + Plan note Future Appointments Appointment Date:03/31/2023 01:45:00 PM Scheduled Provider: [place]:.[place] Appointment Type:PT 45 (FT) Appointment Date:04/06/2023 02:45:00 PM Scheduled Provider: [place] Appointment Type:PT 45 (FT) Appointment Date:04/08/2023 01:30:00 PM Scheduled Provider: [place] Appointment Type:PT 45 (FT) Appointment Date:04/13/2023 01:15:00 PM Scheduled Provider: [place] Appointment Type:PT 45 (FT) Appointment Date:04/18/2023 11:30:00 AM Scheduled Provider: [place] Appointment Type:PT 45 (FT) Appointment Date:04/20/2023 01:30:00 PM Scheduled Provider: [place] Appointment Type:PT 45 (FT) Appointment Date:04/25/2023 11:15:00 AM Scheduled Provider: [place] Appointment Type:PT 45 (FT) Appointment Date:04/28/2023 12:30:00 PM Scheduled Provider: [place] Appointment Type:PT Re-Eval 30 (FT) Diagnostic Tests Pending * Urine Culture 03/30/23 * Urine Culture [facility]30[facility] Future Appointments Appointment Date:05/17/2023 11:00:00 AM Scheduled Provider: Location:[place] Appointment Type:PT 45 (FT) Appointment Date:05/20/2023 12:00:00 PM Scheduled Provider: [place] Appointment Type:PT 45 (FT) Appointment Date:05/24/2023 11:00:00 AM Scheduled Provider: [place] Appointment Type:PT 45 (FT) Appointment Date:05/26/2023 12:30:00 PM [facility]uled [facility]:PT Re-Eval 30 (FT) Diagnostic Tests Pending * Urine Culture 05/11/23 [facility] Future Appointments Appointment Date:06/22/2023 10:30:00 AM Scheduled Provider: [facility] Type:PT 45 (FT) Appointment Date:06/27/2023 11:15:00 AM Scheduled Provider: [facility] Type:PT Re-Eval 45 (FT) Diagnostic Tests Pending * Urine Culture 06/21/23 [facility] Future Appointments Appointment Date:06/27/2023 11:15:00 AM Scheduled Provider: [facility] Type:PT Re-Eval 45 (FT) [facility] Future Appointments Appointment Date:03/30/2024 11:30:00 AM Scheduled Provider:Gera Thomas PA-C Location:.[facility]iology Clinic Appointment Type:Cardiology Follow Up (FT) Future Scheduled Tests Radiology* Echo Transthoracic Complete 03/02/24 [facility] evaluation + Plan note Future Appointments Appointment Date:03/30/2024 11:30:00 AM Scheduled Provider:Gera Thomas PA-C [facility]:Cardiology Follow Up (FT) [facility] evaluation + Plan note Future Appointments Appointment Date:07/11/2024 08:15:00 AM Scheduled Provider:Karlee Montes De Oca MD Location:[facility] Appointment Type:URO New Patient Diagnostic Tests Pending * Urine Culture 05/30/24 [facility] evaluation + Plan note Future Appointments Appointment Date:07/11/2024 08:15:00 AM Scheduled Provider:Karlee Montes De Oca MD Location:[facility] Appointment Type:URO New Patient Diagnostic Tests Pending * Urine Culture 06/18/24 [facility] evaluation + Plan note Future Appointments Appointment Date:07/11/2024 08:15:00 AM Scheduled Provider:Karlee Montes De Oca MD Location:[facility] Appointment Type:URO New Patient [facility] evaluation + Plan note Future Appointments Appointment Date:10/18/2024 08:20:00 AM Scheduled Provider:CARON CARVAJAL PA-C Location:[facility] Appointment Type:URO Office Visit Future Scheduled Tests Radiology* XR Abdomen 1 View 07/02/24 * US Renal 07/02/24 [facility] evaluation + Plan note Future Appointments Appointment Date:10/18/2024 08:20:00 AM Scheduled Provider:CARON CARVAJAL PA-C Location:[facility] Appointment Type:URO Office Visit Diagnostic Tests Pending * Urine Culture 07/02/24 Future Scheduled Tests Radiology* XR Abdomen 1 View 07/02/24 * US Renal 07/02/24 [facility] evaluation + Plan note Future Appointments Appointment Date:10/18/2024 08:20:00 AM Scheduled Provider:CARON CARVAJAL PA-C Location:[facility] Appointment Type:URO Office Visit [facility] evaluation + Plan note Future Appointments Appointment Date:09/17/2024 08:20:00 AM Scheduled Provider:CARON CARVAJAL PA-C Location:[facility] Appointment Type:URO Office Visit [facility] evaluation noteNo assessment information available [facility] Work Phone: Evaluvicil noteNo InformationNocox south Spotivate Other evaluation note* Diagnosis 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 elsewhere Alcohol abuse Alcohol abuse, unspecified Visual hallucinations Psychophysical visual disturbances NAWAF (obstructive sleep apnea) Obstructive sleep apnea (adult) (pediatric) [facility] Unwitnessed fall- Primary documented in this encounter [facility] note* Diagnosis Fall, initial encounter- Primary documented in this encounter [facility] note* Diagnosis Onset Date Resolution Status Admit [...] Pulmonary hypertension acute Au evgeny 2024 2:30pm [facility] Work Phone: Hiseioq general Narrative - Reported* Type Description Date [...] History wisdom teeth Hospitalization History see above [facility] Other History general Narrative - Reported* Type Description Date [...] History wisdom teeth Hospitalization History see above [facility] Other Hospital course Narrative No data available for this section [facility] No data available for this section [facility] Discharge instructions* Attachments The following attachments cannot be sent through Care Everywhere. * Fall Prevention ([place]) [facility] No data available for this section [facility] (narrative) Referred by: CARON CARVAJAL PA-C [facility] Reason for referral (narrative)No reason for referral information availableAv[facility] Work Phone: Summary Purpose Family History Relationship Condition Age at Onset Recorded Date/T sunny father Unknown Not Specified Unknown sister Unknown Relationship Condition Age at Onset Recorded Date/T sunny father Unknown mother Unknown sister Unknown Advance Directives Advance Directive Response Recorded Date/ Time Advance Directives No March 26, 2020 5:32pm Advance Directive Response Recorded Date/ Time Advance Directives No March 26, 2020 4:32pm Documents on File Type Date Recorded 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 Advance Directive(s) 01/28/2023 4:44 PM HP OA Advance Directive(s) 01/28/2023 4:45 PM Li ving Will Documents on File Type Date Recorded 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 Advance Directive(s) 01/28/2023 4:45 PM Li ving Will Advance Directive(s) 01/28/2023 4:44 PM HP [...] 2025 2:3 0pm Medicare annual wellness visit, kia stewart March 15, 2025 2:30pm NAWAF (obstructive sleep apnea) March 2:30pm Psoriatic arthritis March 15, 2025 2:3 0pm Pulmonary hypertension March 15, 2025 2:30pm Additional Source Comments INFORMATION SOURCE (unrecogn ized section and content) DATE CREATED AUTHOR 09/08/2020 [facility] DATE CREATED AUTHOR AUTHOR'S ORGANIZ ATION 07/17/2021 [facility] Specialist DATE CREATED AUTHOR AUTHOR'S ORGANIZ ATION 09/08/2023 [facility] DATE CREATED AUTHOR AUTHOR'S ORGANIZ ATION 01/15/2024 [facility] DATE CREATED AUTHOR AUTHOR'S ORGANIZ ATION 02/23/2024 [facility] DATE CREATED AUTHOR AUTHOR'S ORGANIZ ATION 03/15/2024 [facility] DATE CREATED AUTHOR AUTHOR'S ORGANIZ ATION 05/06/2024 [facility] DATE CREATED AUTHOR AUTHOR'S ORGANIZ ATION 05/17/2024 [facility] DATE CREATED AUTHOR AUTHOR'S ORGANIZ ATION 06/01/2024 [facility] DATE CREATED AUTHOR AUTHOR'S ORGANIZ ATION 06/19/2024 [facility] DATE CREATED AUTHOR AUTHOR'S ORGANIZ ATION 06/21/2024 [facility] DATE CREATED AUTHOR AUTHOR'S ORGANIZ ATION 07/02/2024 [facility] DATE CREATED AUTHOR AUTHOR'S ORGANIZ ATION 07/07/2024 [facility] DATE CREATED AUTHOR AUTHOR'S ORGANIZ ATION 07/11/2024 [facility] DATE CREATED AUTHOR AUTHOR'S ORGANIZ ATION 10/10/2024 [facility] DATE CREATED AUTHOR AUTHOR'S ORGANIZ ATION 03/20/2025 [facility] Care Teams (unrecognized sec tion and content) Team Status: Inactive Member Role Status Dates Luciano Taylor MD Attending Provider Active NON STAFF Primary Care Provider Active Team Status: Active Member Role Status Dates NON STAFF Primary Care Provider Active Team Status: Inactive Member Role Status Dates NON STAFF Primary Care Provider Active Saran Verduzco , PhD Attending Provider Active Elementary Supervisor Relationship Specialty Start Date End Date Rojas Brown [address] [place] [address] PCP - General 08/31/13 Team Status: Inactive Member Role Status Dates NON STAFF Primary Care Provider Active Luciano Taylor MD Attending Provider Active Elementary Supervisor Relationship Specialty Start Date End Date Rojas Brown [address] [place] [address] PCP - General 08/31/13 Team Status: Inactive Member Role Status Dates NON STAFF Primary Care Provider Active RICCARDO Murrell Attending Provider Active Elementary Supervisor Relationship Specialty Start Date End Date Rojas Brown [address] [place] [address] PCP - General 08/31/13 Team Status: Active Member Role Status Dates Edmond Pacheco DO Primary Care Provider Active Team Status: Inactive Member Role Status Dates Edmond Pacheco DO Primary Care Provider Active RICCARDO Murrell Attending Provider Active Elementary Supervisor Relationship Specialty Start Date End Date Rojas Brown [address] [place] [address] PCP - General 08/31/13 Elementary Supervisor Relationship Specialty Start Date End Date Rojas Brown [address] [place] [address] PCP - General 08/31/13 Elementary Supervisor Relationship Specialty Start Date End Date Thai Patel MD [address] [place] [phone] PCP - General Internal Medicine 09/15/23 Elementary Supervisor Relationship Specialty Start Date End Date Thai Patel MD [facility] [place] [address] PCP - General Internal Medicine 09/15/23 Team Status: Inactive Member Role Status Dates Edmond Pacheco DO Primary Care Provider Active Start: November 23, 2023 End: November 23, 2023 RICCARDO Murrell Attending Provider Active Start: November 23, 2023 End: November 23, 2023 Elementary Supervisor Relationship Specialty Start Date End Date Rojas Brown [address] [place] [phone] PCP - General 08/31/13 Team Status: Inactive [...] March 15, 2025 End: March 15, 2025 Elementary Supervisor Relationship Specialty Start Date End Date JuniorEdmond DO Aniya PCP - General Internal Medicine 12/24/22 Goals (unrecognized section and content) Goals may be documented in a n alternate section Source Comments (unrecognize d section and content) In the event this informatio n is protected by the Federal Confidentiality of Alcohol and Drug Abuse Patient Records regulations: The Federal rules restrict any use of the information to criminally investigate or prosecute any alcohol or drug abuse patient.[facility] Institute[facility] the event this information is protected by the Federal Confidentiality of Alcohol and Drug Abuse Patient Records regulations: The Federal rules restrict any use of the information to criminally investigate or prosecute any alcohol or drug abuse patient.[facility] InstituteIn the event this information is protected by the Federal Confidentiality of Alcohol and Drug Abuse Patient Records regulations: The Federal rules restrict any use of the information to criminally investigate or prosecute any alcohol or drug abuse patient.[facility] InstituteIn the event this information is protected by the Federal Confidentiality of Alcohol and Drug Abuse Patient Records regulations: The Federal rules restrict any use of the information to criminally investigate or prosecute any alcohol or drug abuse patient.[facility] InstituteIn the event this information is protected by the Federal Confidentiality of Alcohol and Drug Abuse Patient Records regulations: The Federal rules restrict any use of the information to criminally investigate or prosecute any alcohol or drug abuse patient.[facility] InstituteIn the event this information is protected by the Federal Confidentiality of Alcohol and Drug Abuse Patient Records regulations: The Federal rules restrict any use of the information to criminally investigate or prosecute any alcohol or drug abuse patient.[facility] InstituteIn the event this information is protected by the Federal Confidentiality of Alcohol and Drug Abuse Patient Records regulations: The Federal rules restrict any use of the information to criminally investigate or prosecute any alcohol or drug abuse patient.[facility] Reason for Visit (unrecogniz ed section and content) Reason Comments Refill Request Reason Onset Date Comments Refill Request 08/06/2022 Reason Comments New Patient Evaluation Reason Comments Automation Analyst - Other Reason Comments Results Pt daughter is reque sting a copy of report Automation Analyst - Other Reason Comments Appointment Returned call and ga ve Fax Number to Dr. Tobi Pacheco Automation Analyst - Other Reason Comments Fall Per SNF, [...] BE BASED ON THE PRIMARY CLINICAL RECORDS. [employer] [facility]. provides no warranty or guarantee of the accuracy or completeness of information in this document.
--- NOTE | 2025-03-24 18:59 | PC.NURSE ---
1835 arrived from er. daughter at bedside. report obtained. pt incont of large amount of urine, bed changed, ritika care given, brief applied. vs obtained, pt pleasant.
[2025-03-24] MEDS: POTASSIUM CHLORIDE 10 MEQ ER TABLET 20 MEQ PO (19:52)
[2025-03-24] MEDS: ENOXAPARIN SODIUM 40 MG/0.4 ML SYRINGE SUBQ (19:52)
[2025-03-24] MEDS: ASPIRIN 81 MG TABLET.DR 162 MG PO (19:53)
[2025-03-24] MEDS: METOPROLOL SUCCINATE 25 MG TAB.ER.24H PO (19:55)
[2025-03-24] MEDS: TRAZODONE HCL 50 MG TABLET 25 MG PO (21:39)
[2025-03-25] VITALS (17 sets, daily range): BP systolic 97–145; BP diastolic 52–78; PULSE 52–66; TEMP 36.6–38.1; O2SAT 91–98; BMI 35.8
[2025-03-25] MEDS: PIPERACILLIN SODIUM/TAZOBACTAM 3.375 GM in 0.9 % SODIUM CHLORIDE 50 ML IV ×3 (03:43→19:03)
[2025-03-25 06:17] LABS: Hematocrit 31.7 % (36.0-48.0); Hemoglobin 10.8 g/dL (12.0-16.0); Immature Granulocytes Abs Auto 0.02 10^3/uL (0.00-0.03); Immature Granulocytes Pct Auto 0.2 % (0.0-0.5); Lymphocytes Absolute Auto 2.1 10^3/uL (1.2-3.8); Mean Corpuscular HGB Conc 34.1 g/dL (29.9-35.2); Mean Corpuscular Hemoglobin 33.0 pg (26.7-34.0); Mean Corpuscular Volume 96.9 fL (81.0-99.0); Platelet Count 138 10^3/uL (150-450); Red Blood Count 3.27 10^6/uL (4.20-5.40); White Blood Count 9.2 10^3/uL (4.0-11.0)
[2025-03-25 06:30] LABS: Anion Gap 8.8; Blood Urea Nitrogen 11.0 mg/dL (7.0-18.0); Calcium 8.1 mg/dL (8.5-10.1); Carbon Dioxide 30.9 mmol/L (21.0-32.0); Chloride 106 mmol/L (98-107); Estimated GFR (African America >60 (>=60 mL/min/1.73m^2); Estimated GFR (Non-African Ame >60 (>=60 mL/min/1.73m^2); Glucose 110 mg/dL (74-106); Magnesium 1.8 mg/dL (1.8-2.4); Potassium 3.7 mmol/L (3.5-5.1); Sodium 142 mmol/L (136-145)
[2025-03-25] MEDS: ASPIRIN 81 MG TABLET.DR 162 MG PO (08:16)
[2025-03-25] MEDS: ESCITALOPRAM 10 MG TABLET 20 MG PO (08:16)
[2025-03-25] MEDS: ENOXAPARIN SODIUM 40 MG/0.4 ML SYRINGE SUBQ (08:17)
--- NOTE | 2025-03-25 09:20 | CM.NOTE ---
Rounds made with Dr. Juarez, discussed with pt and daughter plan of care. Pt at this time is at [facility]. PT and OT will evaluate pt for discharge planning. Daughter states pt has benefited from skilled therapy in the past, pt has had increased weakness in the last month.
--- NOTE | 2025-03-25 11:43 | PM.HP ---
HPI H&P: HPI History of Present Illness Chief complaint: ALTERED MENTAL STATUS, UTI, SEPSIS Narrative: Mrs. Glover is an 84-year-old female who lives at the long-term. She does not have dementia associated with cognitive and functional impairment. Patient was sent to the emergency room with increased confusion, disorientation and weakness. Not acting herself for about a week. No fever or chills. No pain or discomfort. No vomiting. No hematemesis or melena Opioid HPI Opioid Management Most Recent Pain and Opioid Data: Last Pain Scale 5 03/26/24, 04:23 Last Pain Assessment 03/24/25, 19:00 Last ORT Total Score 0 03/24/25, :00 Last ORT Risk Category Low Risk 03/24/25, :00 Review of Systems ROS Status of ROS 10 or more systems reviewed and unremarkable except as noted in history and below [facility] Medical History (Updated 03/25/25 @ 11:48 by Analilia Juarez MD) Heart failure ?I50.9 - Heart failure, unspecified (ICD-10) Pulmonary hypertension ?I27.20 - Pulmonary hypertension, unspecified (ICD-10) Accidental fall ?W19.XXXA - Unspecified fall, initial encounter (ICD-10) Acute UTI (urinary tract infection) ?N39.0 - Urinary tract infection, site not specified (ICD-10) Osteoarthritis ?M19.90 - Unspecified osteoarthritis, unspecified site (ICD-10) Glaucoma ?H40.9 - Unspecified glaucoma (ICD-10) PSVT (paroxysmal supraventricular tachycardia) ?I47.10 - Supraventricular tachycardia, unspecified (ICD-10) Spinal stenosis ?M48.00 - Spinal stenosis, site unspecified (ICD-10) Psoriatic arthritis ?L40.50 - Arthropathic psoriasis, unspecified (ICD-10) Surgical History (Updated 03/25/24 @ 12:52 by Estefani Quinones) History of nasal surgery ?Z98.890 - Other specified postprocedural states (ICD-10) Hx of foot surgery ?Z98.890 - Other specified postprocedural states (ICD-10) H/O laminectomy ?Z98.890 - Other specified postprocedural states (ICD-10) Social History (Updated 03/25/24 @ 12:53 by Estefani Quinones) Within the past year, how often did you have a drink containing alcohol: never Score interpretation: A score less than 3 is consistent with normal alcohol consumption. 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 Known occupational exposures/hazards: No Highest level of school completed/degree received: 11th grade Do you think of yourself as: straight/heterosexual Gender Identity: female Meds Home Medications and Allergies Home Medications ?Medication ?Instructions ?Recorded ?Confirmed ?Type celecoxib 200 mg capsule 200 mg PO BID 03/25/24 03/24/25 History cetirizine 10 mg tablet (24Hour 10 mg PO DAILY PRN allergy symptoms 03/25/24 03/24/25 History Allergy) escitalopram oxalate 20 mg tablet 20 mg PO DAILY 03/25/24 03/24/25 History furosemide 40 mg tablet 40 mg PO DAILY 03/25/24 03/24/25 History latanoprost 0.005 % eye drops 1 drp ophthalmic (eye) DAILY 03/25/24 03/24/25 History metoprolol succinate 25 mg 25 mg PO DAILY 03/25/24 03/24/25 History tablet,extended release 24 hr omeprazole 20 mg capsule,delayed 20 mg PO DAILY 03/25/24 03/24/25 History release quetiapine 25 mg tablet 25 mg PO BID PRN BREAKTHROUGH 03/25/24 03/25/25 History AGITATION famotidine 20 mg tablet (Pepcid) 20 mg PO DAILY 03/24/25 03/24/25 History trazodone 50 mg tablet 25 mg PO .QHS PRN insomnia 03/24/25 03/24/25 History potassium chloride 10 mEq 10 meq PO .QD 03/25/25 03/25/25 History tablet,extended release Allergies Allergy/AdvReac Type Severity Reaction Status Date / Time No Known Drug Allergies Allergy Verified 03/25/24 08:58 Exam Narrative Exam Narrative: [pt is awake and alert. oriented to person but not to the exact date or location. Morbidly obese. No distress. HEENT: [place] conjunctiva and NL buccal mucosa Neck: Supple, no tenderness Endocrine: No Thyromegaly. Vascular: No JVD or carotid bruit. Lymphatic: No cervical lymphadenopathy. Chest: CTA no DTP. Heart RRR, no extra sound or murmur. Abd: Soft, no tenderness, no rebound and no rigidity. Increase abd girth therefore clinically I could not exclude the possibility of intra abd mass or organomegaly. LE: No cyanosis or clubbing, no varices or edema. 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 Unable to provide details. Her daughter is at the bedside providing all needed information. Symmetrical motor and tone. needing cyst and supervision standing up and ambulating. []] Constitutional Vital Signs, click to edit/add: Last Vital Signs Temp 98 F 03/25/25 08:00 Pulse 56 L 03/25/25 10:00 Resp 22 H 03/25/25 08:00 BP 97/52 03/25/25 08:00 Pulse Ox 95 03/25/25 08:00 O2 Del Method Room Air 03/25/25 08:00 O2 Flow Rate 2 03/25/25 04:00 Results Labs Labs: Short CBC 03/24/25 03/25/25 Range/Units 16:25 06:11 WBC 12.4 H 9.2 (4.0-11.0) 10^3/uL Hgb 14.0 10.8 L (12.0-16.0) g/dL Hct 41.7 31.7 L (36.0-48.0) % Plt Count 169 138 L (150-450) 10^3/uL BMP 03/24/25 03/25/25 16:25 06:11 Sodium 139 142 Potassium 3.4 L 3.7 Chloride 105 106 Carbon Dioxide 28.1 30.9 BUN 11.0 11.0 Creatinine 0.87 0.62 Glucose 168 H 110 H Calcium 8.3 L 8.1 L Liver Function 03/24/25 Range/Units 16:25 Total Bilirubin 0.8 (0.2-1.0) mg/dL AST 18 (15-37) U/L ALT 16 (14-59) U/L Alkaline Phosphatase 105 (46-116) U/L Albumin 3.2 L (3.4-5.0) g/dL Urine 03/24/25 Range/Units 17:08 Urine Color Lt yellow (YELLOW) Urine Clarity Cloudy A (CLEAR) Urine pH 6.0 (5.0-9.0) Ur Specific [place] 1.015 (1.005-1.025) Urine Protein Negative (NEG/TRACE) mg/dL Urine Glucose (UA) Negative (NEGATIVE) mg/dL Assessment and Plan Assessment and Plan (1) Sepsis: (2) UTI (urinary tract infection): (3) Generalized weakness: Plan Sepsis present on admission. Sepsis guidelines have been followed including IV fluid infusion, blood draw, and monitoring lactic level and initiation of antibiotic. Recurrent complicated UTI Metabolic and septic encephalopathy Accepted to admit patient to the medical floor I started patient on IV fluid infusion. Start patient on broad-spectrum antibiotic pending culture report. Blood and urine cultures are pending Cognitive and functional impairment secondary to dementia and obesity Worse than baseline according to her daughter. Likely secondary to metabolic and septic derangement as listed above. CT head is negative for acute intracranial process. No focal deficit. No clinical evidence of meningitis. Continue to monitor neurological functional status and proceed with additional needed diagnostic and therapeutic intervention accordingly. Continue PT OT. Patient lives in assisted living. She may need short-term skilled care Anemia, no evidence of acute blood loss. Patient will likely require to have anemia workup to be done in the outpatient setting to be handled by PCP in collaboration with other needed outpatient providers. This may include but not limited to EGD, colonoscopy, referral to see hematology and other needed age-appropriate cancer screening. Hypokalemia Potassium supplementation Chronic medical conditions not listed above, incidental findings seen on labs and imaging. These would need to be addressed. Could be addressed when time and condition are appropriate. Could be addressed in the outpatient setting by PCP collaboration with other needed outpatient providers. Urinary Catheter Management Urinary Catheter Management Straight: Cath placed during this visit: yes Urethral indwelling: No Insertion date: 03/24/25 Insertion time: 17:10
--- NOTE | 2025-03-25 11:58 | SWNOTE1 ---
Recommendation of SNF at discharge. PT's daughter did leave and will be returning, pt has confusion at this time. SW called pt's daughter, Linh, and left her a message.
[2025-03-25] MEDS: MIDODRINE HCL 5 MG TABLET 2.5 MG PO (12:11)
[2025-03-25] MEDS: 0.9 % SODIUM CHLORIDE 1,000 ML 100 ML IV ×2 (12:13→21:14)
--- NOTE | 2025-03-25 12:17 | SWNOTE1 ---
Pt's daughter called back, but she was in the middle of a visit with her patient, she voiced she will call back shortly.
--- NOTE | 2025-03-25 13:17 | SWNOTE1 ---
SW spoke to pt's daughter, Linh, over the phone. SW did let her know that rehab is recommended for strengthening. Daughter is in agreement and feels pt will benefit and will need to walk without assistance back at [facility]. Daughter voiced she was over in [facility] in past, but feels like she should be over closer to [place] this time. She asked about the [facility]. SW advised they do take her insurance. She asked about any other facilities that are close and take her insurance. SW let her know [facility] in [place] is [facility]. She voiced no [facility] and she did not want to go towards [place]. She would like [facility] as her first choice. JAGUAR to send referral. Referral sent to [facility]. Referral included face sheet, ED note, H&P, provider notes, case management report, nursing notes, diagnostic imaging, med list, and PT notes.
--- NOTE | 2025-03-25 13:21 | SWNOTE1 ---
Important Message from Medicare reviewed and discussed with patient's Linh smith. She verbalized understanding and SW signed the form that it was reviewed. Original placed in pt's room and copy placed in patient?s chart.
--- NOTE | 2025-03-25 14:05 | SWNOTE1 ---
Abhi at [facility] reached out to JAGUAR and they will not have an opening to possibly later this week. JAGUAR called daughter, Linh, and let her know about [facility]. Her second choice is [facility]. JAGUAR reached out to Delaney at [facility], had to leave message,. JAGUAR called back again and spoke to Francesca who is covering for [facility]. She voiced to send over the referral and provided SW with her fax and they will try to review it today, but stated since it is later in afternoon, they may not review until tomorrow morning. JAGUAR also received an email from [facility] and she is out of office this afternoon and stated it may not be reviewed until tomorrow. Referral sent to [facility]. Referral included face sheet, ED note, H&P, provider notes, case management report, nursing notes, diagnostic imaging, med list, and PT/OT notes.
--- NOTE | 2025-03-25 15:56 | SWNOTE1 ---
JAGUAR spoke to daughter, Linh, in regards to [facility]. She voiced she spoke to someone at [facility] and she is going there tonight to tour it and they may have a bed. JAGUAR let Linh know to call and leave SW a message and JAGUAR will touch base in morning. JAGUAR reached out to Priscila and Abhi. Abhi stated that daughter is stopping by this evening to check out semi-private room. [facility] will updated SW in morning as well.
[2025-03-25] MEDS: ACETAMINOPHEN 325 MG TABLET 650 MG PO (15:58)
--- NOTE | 2025-03-25 15:58 | PC.NURSE ---
Patient moved to room 217 as a med-surg patient with telemetry per Dr. Juarez's order. Bedside report given to Mitzi Snyder RN. Daughter Linh notified and aware of patient moving rooms.
[2025-03-25] MEDS: TRAZODONE HCL 50 MG TABLET 25 MG PO (21:14)
[2025-03-25] MEDS: QUETIAPINE FUMARATE 25 MG TABLET PO (21:14)
[2025-03-26] VITALS (23 sets, daily range): BP systolic 130–186; BP diastolic 63–82; PULSE 54–97; TEMP 36.6–37.4; O2SAT 90–93
[2025-03-26] MEDS: PIPERACILLIN SODIUM/TAZOBACTAM 3.375 GM in 0.9 % SODIUM CHLORIDE 50 ML IV ×3 (01:32→17:06)
--- NOTE | 2025-03-26 08:00 | SWNOTE1 ---
JAGUAR received a message from Abhi at [facility] last evening and she voiced the daughter is alright with pt having a semi-private room and they are able to accept. Abhi voiced she will need rest of referral to start precert. JAGUAR let her know everything was faxed. SW checked this morning and re-faxed the whole referral so precert can be started.
--- NOTE | 2025-03-26 08:11 | REH.PTDLY ---
Physical Therapy Daily Note PT Daily Note/Assess Start: 03/26/25 08:04 Freq: Status: Active Protocol: Document 03/26/25 08:04 YOHANNES (Rec: 03/26/25 08:11 YOHANNES [id number]) Physical Therapy Daily Note/Assessment Time In 07:39 Time Out 08:02 Subjective Nursing in room upon arrival, pt lethargic upon arrival . Therapeutic Exercise 8 Minutes (minutes) Therapeutic Exercise 1 Units Therapeutic Exercise Instructed in seated Donnie LE exs with verbal cues and Treatment demo 10x ea, counting out loud for pt to better stay on task. Pt slow to perform exs. Exs included LAQ, HR/TR, marching, hip add squeeze, and hip abd step outs for improved mobility and strength Therapeutic Activity 15 Minutes (minutes) Therapeutic Activity 1 Units Therapeutic Activity Verbal cues needed for rolling in bed for change of Comments brief, Mod A. Supine to sit transfers Max A to bring legs to EOB, Mod A to sit upright. Sit to stand transfers Mod A x1, CGAx1. Gait training from bed to chair with RW with Max verbal cues needed for proper gait sequence. Pt performs gait very slowly and stops at times, needing verbal reminders. Cues for large strides as pt makes very small advancements with gait. Mod A to prevent pt from advancing RW too far forward and needs assistance to turn RW. Cues for pt to sit back in chair and reach with UEs, pt fails to reach back. Chair alarm on for safety. Total Therapy 23 Minutes Total Physical 2 Therapy Units Daily Note Summary Pt needs Max verbal cues during rx for task at hand. Requires Mod A with transfers and gait as well for safety and due to weakness. Pt will need SNF stay at [facility] to improve strength at this time as pt requires Mod- Max A with tasks.
--- NOTE | 2025-03-26 08:30 | SWNOTE1 ---
SW met with daughter, Linh, in pt's room. Pt's daughter voiced she did look at the room last evening at [facility], it is semi-private in care home care side, but she does want her to go there. Daughter hopeful it will only be a short time since she is going to be getting rehab to get stronger and return to [facility]. SW advised daughter that we will have [facility] start precert and SW to keep daughter updated.
[2025-03-26] MEDS: ESCITALOPRAM 10 MG TABLET 20 MG PO (09:19)
[2025-03-26] MEDS: ENOXAPARIN SODIUM 40 MG/0.4 ML SYRINGE SUBQ (09:19)
[2025-03-26] MEDS: ASPIRIN 81 MG TABLET.DR 162 MG PO (09:19)
--- NOTE | 2025-03-26 09:20 | CM.NOTE ---
Rounds made with Dr. Juarez, discussed with daughter and pt plan of care. Urine preliminary culture positive for e-coli, updated pt and daughter. No discharge today. Pt will discharge to [facility] for skilled therapy when medically stable.
--- NOTE | 2025-03-26 09:23 | SWNOTE1 ---
JAGUAR spoke to Priscila at [facility] and she did receive the full referral and she will get precert started. SW to send updated therapy and physician notes from today once completed.
--- NOTE | 2025-03-26 11:29 | P.PN_ITS ---
Progress Note: Subjective Subjective Interval history: No new symptoms since yesterday. Her daughter stated that she appears to be perking up compared to yesterday. Exam Narrative Exam Narrative: [pt is awake and alert. oriented to person but not to the exact date or location. Morbidly obese. No distress. HEENT: [place] conjunctiva and NL buccal mucosa Neck: Supple, no tenderness Endocrine: No Thyromegaly. Vascular: No JVD or carotid bruit. Lymphatic: No cervical lymphadenopathy. Chest: Crackles at the right base. The left base is clear. Heart RRR, no extra sound or murmur. Abd: Soft, no tenderness, no rebound and no rigidity. Increase abd girth therefore clinically I could not exclude the possibility of intra abd mass or organomegaly. LE: No cyanosis or clubbing, no varices or edema. 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 Unable to provide details. Her daughter is at the bedside providing all needed information. Symmetrical motor and tone. needing cyst and supervision standing up and ambulating. []] Constitutional Vital Signs, click to edit/add: Last Vital Signs Temp 99.4 F 03/26/25 07:35 Pulse 65 03/26/25 10:00 Resp 22 H 03/26/25 07:35 BP 147/77 H 03/26/25 08:04 Pulse Ox 93 L 03/26/25 07:35 O2 Del Method Room Air 03/26/25 07:35 O2 Flow Rate 2 03/25/25 04:00 Progress Note: A&P Assessment and Plan (1) Sepsis: (2) UTI (urinary tract infection): (3) Generalized weakness: Plan Sepsis present on admission. Sepsis guidelines have been followed including IV fluid infusion, blood draw, and monitoring lactic level and initiation of antibiotic. Recurrent complicated UTI Metabolic and septic encephalopathy Continue IV fluid infusion. Start patient on broad-spectrum antibiotic pending culture report. Blood and urine cultures are pending Cognitive and functional impairment secondary to dementia and obesity Worse than baseline according to her daughter. Likely secondary to metabolic and septic derangement as listed above. CT head is negative for acute intracranial process. No focal deficit. No clinical evidence of meningitis. Continue to monitor neurological functional status and proceed with additional needed diagnostic and therapeutic intervention accordingly. Continue PT OT. Patient lives in assisted living. She may need short-term skilled care. Discussed with physical therapy and case management. Patient qualified to go to skilled. The pre-CERT has been submitted. Anemia, no evidence of acute blood loss. Patient will likely require to have anemia workup to be done in the outpatient setting to be handled by PCP in collaboration with other needed outpatient providers. This may include but not limited to EGD, colonoscopy, referral to see hematology and other needed age-appropriate cancer screening. Hypokalemia Potassium supplementation Chronic medical conditions not listed above, incidental findings seen on labs and imaging. These would need to be addressed. Could be addressed when time and condition are appropriate. Could be addressed in the outpatient setting by PCP collaboration with other needed outpatient providers. Urinary Catheter Management Urinary Catheter Management Straight: Cath placed during this visit: yes Urethral indwelling: No Insertion date: 03/24/25 Insertion time: 17:10 Pure Wick: Cath placed during this visit: no
--- NOTE | 2025-03-26 11:45 | SWNOTE1 ---
SW faxed updates including PT/OT, physician notes, labs, vitals, and nursing notes to [facility].
[2025-03-26] MEDS: PANTOPRAZOLE SODIUM 40 MG TABLET.DR PO (13:40)
[2025-03-26] MEDS: FUROSEMIDE 40 MG TABLET PO ×2 (13:40→23:03)
[2025-03-26] MEDS: ACETAMINOPHEN 325 MG TABLET 650 MG PO ×2 (17:05→21:54)
[2025-03-26] MEDS: MAGNESIUM SULFATE/D5W 1 GM/100 ML PREMIX IV (21:51)
[2025-03-26] MEDS: LATANOPROST 0.005% 2.5 ML BOTTLE 1 DROP OP (21:53)
[2025-03-26] MEDS: POTASSIUM CHLORIDE 10 MEQ ER TABLET 20 MEQ PO (21:54)
[2025-03-26] MEDS: TRAZODONE HCL 50 MG TABLET 25 MG PO (21:55)
[2025-03-26] MEDS: SENNOSIDES/DOCUSATE SODIUM 1 TAB TABLET PO (21:55)
[2025-03-26] MEDS: QUETIAPINE FUMARATE 25 MG TABLET PO (21:55)
[2025-03-27] VITALS (8 sets, daily range): BP systolic 124–143; BP diastolic 54–80; PULSE 62–92; TEMP 36.8; O2SAT 90–91
[2025-03-27 05:35] LABS: Hematocrit 35.6 % (36.0-48.0); Hemoglobin 11.9 g/dL (12.0-16.0); Mean Corpuscular HGB Conc 33.4 g/dL (29.9-35.2); Mean Corpuscular Hemoglobin 32.2 pg (26.7-34.0); Mean Corpuscular Volume 96.5 fL (81.0-99.0); Platelet Count 150 10^3/uL (150-450); Red Blood Count 3.69 10^6/uL (4.20-5.40); White Blood Count 6.6 10^3/uL (4.0-11.0)
[2025-03-27 05:50] LABS: Anion Gap 7.7; Blood Urea Nitrogen 10.0 mg/dL (7.0-18.0); Calcium 8.3 mg/dL (8.5-10.1); Carbon Dioxide 31.8 mmol/L (21.0-32.0); Chloride 105 mmol/L (98-107); Estimated GFR (African America >60 (>=60 mL/min/1.73m^2); Estimated GFR (Non-African Ame >60 (>=60 mL/min/1.73m^2); Glucose 104 mg/dL (74-106); Potassium 3.5 mmol/L (3.5-5.1); Sodium 141 mmol/L (136-145)
[2025-03-27] MEDS: PANTOPRAZOLE SODIUM 40 MG TABLET.DR PO (06:05)
--- NOTE | 2025-03-27 08:00 | SWNOTE1 ---
SW had an email from Abhi at [facility] and pt is approved to go to [facility]. Approval is from 03/26/25-03/28/25. JAGUAR let case management know.
--- NOTE | 2025-03-27 08:30 | CM.NOTE ---
Rounds made with Dr. Juarez, daughter at bedside when Dr. Juarez discussed discharge to [facility] for skilled rehab today. Daughter in agreement and verbalizes understanding of medications and final culture (urine) results. SS will fax CRF and discharge summary to [facility] and call about pt's discharge.
--- NOTE | 2025-03-27 08:50 | CM.NOTE ---
Daughter requesting to speak with case management. Daughter at this time states she will transport pt to [facility] when ready for discharge. Daughter requesting pt to shower prior to discharge and [facility] will drop off clothing for pt to change into. Daughter will be back around 12 or 1 for pt's discharge. Breanna CROWLEY updated and will get patient ready for discharge. Updated bin worker for discharge planning.
[2025-03-27] MEDS: METOPROLOL SUCCINATE 25 MG TAB.ER.24H PO (09:09)
[2025-03-27] MEDS: ENOXAPARIN SODIUM 40 MG/0.4 ML SYRINGE SUBQ (09:09)
[2025-03-27] MEDS: FUROSEMIDE 40 MG TABLET PO (09:10)
[2025-03-27] MEDS: ASPIRIN 81 MG TABLET.DR 162 MG PO (09:10)
[2025-03-27] MEDS: ESCITALOPRAM 10 MG TABLET 20 MG PO (09:10)
--- NOTE | 2025-03-27 09:44 | SWNOTE1 ---
SW spoke to case management and pt is stable for discharge today. Pt's daughter will be transporting pt over to the [facility] today. She will be back around 07/08 to transport her. JAGUAR updated the [facility].
--- NOTE | 2025-03-27 09:59 | PM.DS1 ---
DS: Providers Provider Date of admission: 03/24/25 18:30 Primary care physician: Edmond Souza DO Consults: 03/24/25 18:09 Occupational Therapy Eval and Treat Routine Reason for consultation: Weakness Physical Therapy Eval and Treat Routine Reason for consultation: Weakness DS: Diagnosis Discharge Diagnosis (1) Sepsis: (2) UTI (urinary tract infection): (3) Generalized weakness: Plan As listed above and others that are not listed DS: Summary Hospital Course Hospital Course: Mrs. Stephenson is an 84-year-old female with a known diagnosis of dementia and recurrent UTI. She was brought in with increasing confusion, progressive weakness. She was found to have UTI associated with sepsis encephalopathy Sepsis present on admission. Sepsis guidelines have been followed including IV fluid infusion, blood draw, and monitoring lactic level and initiation of antibiotic. Recurrent complicated UTI, recurrent UTI Metabolic and septic encephalopathy Patient received intravenous antibiotic. Blood culture thus far is negative. Urine cultures positive for E. coli which is pansensitive Her antibiotic initially was Zosyn which was switched to ceftriaxone last evening based on sensitivity report and the patient will be discharged home on oral cephalosporin Metabolic and septic encephalopathy Cognitive and functional impairment secondary to dementia and obesity Worse than baseline according to her daughter. Likely secondary to metabolic and septic derangement as listed above. CT head is negative for acute intracranial process. No focal deficit. No clinical evidence of meningitis. Her cognition is back to near baseline state according to her daughter. Patient has quite advanced cognitive loss. She is able to understand basic questions related to food and bowel movement otherwise she is unable to engage in any complex conversation whatsoever at baseline. She was seen by PT OT team and recommended to be admitted to a residential facility for short-term rehabilitation. Microvascular disease seen on CT head. I suspect patient has vascular dementia. I started patient on aspirin daily for CVA prevention. Anemia, no evidence of acute blood loss. Patient will likely require to have anemia workup to be done in the outpatient setting to be handled by PCP in collaboration with other needed outpatient providers. This may include but not limited to EGD, colonoscopy, referral to see hematology and other needed age-appropriate cancer screening. Hypokalemia Potassium supplementation Chronic medical conditions not listed above, incidental findings seen on labs and imaging. These would need to be addressed. Could be addressed when time and condition are appropriate. Could be addressed in the outpatient setting by PCP collaboration with other needed outpatient providers. Patient has multiple complex medical issues as listed above and others that are not listed. All appear to be stable. I do not have any clear or strong clinical justification to extend inpatient hospitalization. Patient however will require close and frequent monitoring as well as additional work-up, investigation and therapeutic intervention that could take place from this point on post discharge. That is to prevent relapse, decompensation, rehospitalization and other medical implications. I instructed patient to ask her primary care doctor to obtain [facility] record entirely to address abnormalities seen on labs and imaging that I have and have not addressed during this hospitalization, follow-up on pending blood work, imaging and pathology is if available and to follow-up on needed medical care in the outpatient setting. I discussed her case with her daughter almost on a daily basis Time Spent with Patient Time attestation: Total time spent providing and/or coordinating discharge services: Time spent: greater than 30 minutes Exam Narrative Exam Narrative: [pt is awake and alert. oriented to person but not to the exact date or location. Morbidly obese. No distress. HEENT: [place] conjunctiva and NL buccal mucosa Neck: Supple, no tenderness Endocrine: No Thyromegaly. Vascular: No JVD or carotid bruit. Lymphatic: No cervical lymphadenopathy. Chest: Resolution of the crackles at the right base. The left base is clear. Heart RRR, no extra sound or murmur. Abd: Soft, no tenderness, no rebound and no rigidity. Increase abd girth therefore clinically I could not exclude the possibility of intra abd mass or organomegaly. LE: No cyanosis or clubbing, no varices or edema. 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 Unable to provide details. Her daughter is at the bedside providing all needed information. Symmetrical motor and tone. needing cyst and supervision standing up and ambulating. []] Constitutional Vital Signs, click to edit/add: Last Vital Signs Temp 98.2 F 03/27/25 07:20 Pulse 92 H 03/27/25 09:47 Resp 18 03/27/25 07:20 BP 132/59 03/27/25 07:20 Pulse Ox 91 L 03/27/25 07:20 O2 Del Method Room Air 03/27/25 07:20 O2 Flow Rate 2 03/25/25 04:00 DS: Data Data Completed and Pending Labs on day of discharge: Labs from last 24 hours 03/27/25 05:28 WBC 6.6 RBC 3.69 L Hgb 11.9 L Hct 35.6 L MCV 96.5 MCH 32.2 MCHC 33.4 RDW 12.7 Plt Count 150 MPV 9.5 Sodium 141 Potassium 3.5 Chloride 105 Carbon Dioxide 31.8 Anion Gap 7.7 BUN 10.0 Creatinine 0.65 Est GFR ( Amer) >60 Est GFR (Non-Af Amer) >60 BUN/Creatinine Ratio 15.4 Glucose 104 Calcium 8.3 L Preliminary micro results at discharge 03/24/25 16:17 Blood Culture Result 2 - Preliminary Blood NO GROWTH AT 36-48 HOURS. FINAL TO FOLLOW. 03/24/25 16:09 Blood Culture Result 1 - Preliminary Blood NO GROWTH AT 36-48 HOURS. FINAL TO FOLLOW. Discharge Plan Discharge Disposition: Xfer SNF Condition: Fair Discharge Medications: New sennosides-docusate sodium [Senna Plus] 8.6-50 mg Tablet 1 tab PO QD PRN (Reason: Constipation) Qty: 0 0RF aspirin 81 mg Tablet,Delayed Release (Dr/Ec) 162 mg PO QD Qty: 0 0RF docusate sodium 100 mg Capsule 100 mg PO BID PRN (Reason: Constipation) Qty: 0 0RF cefuroxime axetil 500 mg tablet 500 mg PO BID 6 Days Qty: 12 0RF Continued escitalopram oxalate 20 mg tablet 20 mg PO DAILY furosemide 40 mg tablet 40 mg PO DAILY latanoprost 0.005 % drops 1 drp OPHTHALMIC (EYE) DAILY metoprolol succinate 25 mg tablet extended release 24 hr 25 mg PO DAILY omeprazole 20 mg capsule,delayed release(DR/EC) 20 mg PO DAILY quetiapine 25 mg tablet 25 mg PO BID PRN (Reason: BREAKTHROUGH AGITATION) trazodone 50 mg tablet 25 mg PO .QHS PRN (Reason: insomnia) famotidine [Pepcid] 20 mg tablet 20 mg PO DAILY potassium chloride 10 mEq tablet extended release 10 meq PO .QD Discontinued celecoxib 200 mg capsule 200 mg PO BID cetirizine [24Hour Allergy] 10 mg tablet 10 mg PO DAILY PRN (Reason: allergy symptoms) Print Language: Kinyarwanda Activity Restrictions/Additional Instructions: I may not have addressed or treated all of your medical illnesses or the abnormal blood work or imaging studies during this hospitalization. Please ask your primary care provider to obtain [facility] records entirely to follow up on all of the abnormal physical, laboratory, and imaging findings that I have not addressed. For [facility]cc provider Fall precautions. Recommend BMP weekly for 3 weeks Please return back to the emergency room or seek medical attention if your symptoms worsen or return. Discharging you from [facility] does not mean that your medical care ends here and now. You may still need additional monitoring, work up, investigation, and treatment plan to be handled from this point on by out patient providers including your primary care provider and specialists. For any medication question, please contact your retail pharmacist or your primary care provider. Thank you. Forms: Portal Instructions
--- NOTE | 2025-03-27 10:18 | SWNOTE1 ---
JAGUAR faxed over dc med rec and dc summary to Ketty at [facility]. JAGUAR took CRF to floor for the nurse to complete. JAGUAR completed Hospital Exemption [id number] online.
--- NOTE | 2025-03-27 10:19 | SWNOTE1 ---
Pt is going to the [facility] today skilled. Nurse, pt's daughter, and [facility] are all aware of this and aware that daughter is transporting between 12&1.
--- NOTE | 2025-03-27 11:50 | SWNOTE1 ---
Daughter called case management and she will be here around 12:15 and will likely arrive to [facility] around 12:30. SW called and spoke to Priscila at [facility] and let her know that pt will be arriving around 12:30. JAGUAR advised nurse Welch that [facility] will be ready for her.
--- NOTE | 2025-03-27 12:01 | PC.NURSE ---
report given to michael at the [facility]. All questions answered
== END 2025-03-27 12:23 | DRG 871 ==
LOC: ER 17:54 → MS 18:41
PROVIDERS: Personal Emergency Response Attendant; Admitting Provider Internal Medicine; Emergency Provider Emergency Medicine; PCP Internal Medicine; Visit Provider Internal Medicine
DX: A41.9 Sepsis, unspecified organism (principal); G93.41 Metabolic encephalopathy; N39.0 Urinary tract infection, site not specified; I95.9 Hypotension, unspecified; I49.3 Ventricular premature depolarization; I27.20 Pulmonary hypertension, unspecified; R65.20 Severe sepsis without septic shock; E66.9 Obesity, unspecified; Z68.35 Body mass index [BMI] 35.0-35.9, adult; D64.9 Anemia, unspecified; E87.6 Hypokalemia; B96.20 Unspecified Escherichia coli [E. coli] as the cause of diseases classified elsewhere; F01.50 Vascular dementia, unspecified severity, without behavioral disturbance, psychotic disturbance, mood disturbance, and anxiety; Z79.82 Long term (current) use of aspirin; Z79.899 Other long term (current) drug therapy
CPT/HCPCS: 36415; 70450; 71045; 80048; 80053; 81001; 83605; 83735; 83880; 84100; 84443; 84484; 85025; 85027; 87040; 87086; 87088; 87186; 93005; 96361; 96365; 97110; 97162; 97165; 97530; 97535; 99285; J0696; J1650; J2543; J3475

== ENCOUNTER 2025-04-05 09:29 | Outpatient (REF) | payer MEDICARE, SELFPAY ==
--- OUTSIDE RECORDS SUMMARY | 2025-03-24 20:05 | XMS_ITS | Continuity of Care Document ---
Author Organization [facility] Address [address] [place] [address] Phone Care Team Providers Care Academic Advising Director Name Role Phone Edmond Souza DO Primary Care Provider [phone] Sunny Taylor MD Attending Provider [phone] Edmond Souza DO Attending Provider [phone] Sunny Ocampo PA-C Attending Provider Care Teams Visit Care Team Team Status: Inactive Member Role Status Dates Edmond Souza DO Primary Care Provider Active Start: February 28, 2025 End: February 28, 2025 Sunny Taylor MD Attending Provider Active St art: February 28, 2025 End: February 28, 2025 Visit Care Team Team Status: Inactive Member Role Status Dates Edmond Souza DO Primary Care Provider Active Start: March 15, 2025 End: March 15, 2025 Edmond Souza DO Attending Provider Active Sta rt: March 15, 2025 End: March 15, 2025 Patient Care Team Team Status: Active Member Role Status Dates Edmond Souza DO Primary Care Provider Active Start: March 24, 2025 Sunny Ocampo PA-C Attending Provider Active S tart: March 24, 2025 Patient Care Team Team Status: Inactive Member Role Status Dates Sunny Ocampo PA-C Attending Provider Active Start: March 24, 2025 End: March 24, 2025 Chief Complaint and Reason for Visit Chief Complaint Admit Date oa February 28, 2025 8:02 am wellness March 15, 2025 2:3 0pm UNL March 24, 2025 5: 08pm Reason for Visit Admit Date Alzheimer dementia March 15, 2025 2:3 0pm 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) March 15, 2025 2:30pm Chronic venous insufficiency of lower ex tremity March 15, 2025 2:30pm Compulsive skin picking March 15, 2025 2:30pm Major depression March 15, 2025 2:3 0pm Medicare annual wellness visit, kia nt March 15, 2025 2:30pm NAWAF (obstructive sleep apnea) March 2:30pm Psoriatic arthritis March 15, 2025 2:3 0pm Pulmonary hypertension March 15, 2025 2:30pm Allergies, Adverse Reactions, Alerts Allergen Type Severity Reaction Last Updated Verified Status No Known Allergies Allergy Unknown March 15, 2025 2:30 pm Yes Active Social History Smoking Status Status Start Date End Date Date of Observa tion Never smoked tobacco (finding) March 04, 2025 2:23pm Observation Status Observation Response Date of Response Legal Sex Female (finding) Sex Assigned At Female [id number] Family History Relationship Condition Age at Onset Recorded Date/T sunny father Unknown mother Unknown sister Unknown Problems Active Problems Medical Problem Onset Date Status Comments Alzheimer dementia Unknown Active 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) Unknown Active Chronic venous insufficiency of lower extremity Unknown Active Medicare annual wellness vis it, subsequent Unknown Active Major depression Unknown Active Insomnia Unknown Active NAWAF (obstructive sleep apnea) Unknown Active Compulsive skin picking Unknown Active Psoriatic arthritis Unknown Active Pulmonary hypertension Unknown Active Primary hypertension Unknown Active Echo: L VEF 70%, normal RV size/function, RVSP 45-50 - 03/2024 Recurrent cystitis Unknown Active Asymptomatic bacteriuria Unknown Active Medications Medication Status Dose Units Route Directions Qty Days St art Date Stop Date End Date Instructions Adherence Latanoprost 0.005 % drops Discont inued 1 DROPS EYE-BROOKS TH Daily March 22, 2024 12:00a m Augus 2023 4:45p m Furosemide 40 mg tablet Discont inued 40 MG PO Every morning March 22, 2024 12:00a m Augus 2023 4:45p m Potassium Chloride 10 mEq capsule, extended release Discont inued 10 MEQ PO Daily March 22, 2024 12:00a m Augus 2023 4:45p m Escitalopra m Oxalate (Lexapro) 20 mg tablet Discont inued 20 MG PO Daily March 22, 2024 12:00a m Augus 2023 4:45p m Omeprazole 20 mg capsule,del ayed release(DR/ EC) Discont inued 20 MG PO Daily March 22, 2024 12:00a m Augus 2023 4:45p m Metoprolol Succinate 25 mg tablet extended release 24 hr Discont inued 25 MG PO Daily March 22, 2024 12:00a m Augus 2023 4:45p m Cetirizine (Zyrtec) 10 mg capsule Discont inued 10 MG PO Daily as needed March 22, 2024 12:00a m Augus 2023 4:45p m Celecoxib (Celebrex) 200 mg capsule Discont inued 200 MG PO Twice daily March 22, 2024 12:00a m Augus 2023 4:45p m Glucosamine Ruby 2kcl-Chondr oit 750-600 mg tablet Active TAB PO March 22, 2024 12:00a m Unknown Buspirone 10 mg tablet Discont inued 10 MG PO Three times daily March 22, 2024 12:00a m Augus 2023 4:45p m Quetiapine (Seroquel) 25 mg tablet Discont inued 25 MG PO Twice daily March 22, 2024 12:00a m Augus 2023 4:45p m Tizanidine 4 mg capsule Discont inued 4 MG PO Daily at bedtime as needed March 22, 2024 12:00a m Augus 2023 4:42p m Melatonin 5 mg capsule Discont inued 5 MG PO Daily at bedtime March 22, 2024 12:00a m Augus 2023 4:45p m Acetaminoph en (Tylenol Extra Strength) 500 mg tablet Discont inued 500 MG PO Every 6 hours as needed March 22, 2024 12:00a m Augus t 2024 2:51p m Quetiapine (Seroquel) 25 mg tablet Discont inued 25 MG PO Twice daily 56 28 2023 9:12pm Febru sharonda 2024 7:17p m Sulfamethox azole-Trime thoprim 800-160 mg tablet Discont inued 1 TAB PO Twice daily 10 5 ava 2023 12:00a m Septe mber 2023 5:47p m Nitrofurant oin Monohyd/M-C ryst (Macrobid) 100 mg capsule Discont inued 100 MG PO Twice daily 10 5 Septem ava 2023 12:00a m Decem ava 2023 4:06p m must administer with a meal/food Gabapentin 100 mg capsule Discont inued 100 MG PO Twice daily 60 30 Septem ava 2023 12:00a m Decem ava 2023 4:06p m Potassium Chloride 10 mEq tablet extended release Active 10 MEQ PO Daily 30 30 Septem ava 2023 12:00a m Unknown Cetirizine 10 mg tablet Active 0 .ROUTE .COMPLEX ava 2023 2:22pm TAKE ONE TABLET BY MOUTH DAILY NEEDED FOR RASH Unknown Cefdinir 300 mg capsule Discont inued 300 MG PO Twice daily 10 5 ava 2023 12:00a m Octob er 2023 3:25p m Cefdinir 300 mg capsule Discont inued 300 MG PO Twice daily 20 Octobe r 2023 3:23pm Decem ava 2023 4:05p m Ertapenem 1 gram recon soln Discont inued 1 GM IM Daily 10 Octobe r 2023 12:00a m Decem ava 2023 3:53p m Escitalopra m Oxalate (Lexapro) 20 mg tablet Discont inued 20 MG PO Daily Decemb er 2023 10:39p m December 02, 2024 8:26p m Omeprazole 20 mg capsule,del ayed release(DR/ EC) Active 0 .ROUTE .COMPLEX y 2024 7:04pm TAKE ONE CAPSULE BY MOUTH DAILY Unknown Celecoxib (Celebrex) 200 mg capsule Active 200 MG PO Twice daily 56 2024 7:16pm Unknown Furosemide 40 mg tablet Active 40 MG PO Every morning ry 2024 7:16pm Unknown Quetiapine (Seroquel) 25 mg tablet Discont inued 25 MG PO Twice daily 56 2024 7:17pm November 20, 2024 5:32p m Trazodone 50 mg tablet Discont inued 25 MG PO Daily at bedtime as needed for insomnia 2024 1:00am October 15, 2024 5:03p m Trazodone 50 mg tablet Active 50 MG PO Daily at bedtime as needed for insomnia October 15, 2024 5:00pm Unknown Ketoconazol e 2 % shampoo Discont inued 1 APPLIC TOPICA L Twice a Week 120 October 15, 2024 12:00a m Augus t 2024 2:53p m Quetiapine (Seroquel) 25 mg tablet Active 0 PO Twice daily 66 November 20, 2024 5:30pm 1 tablet bid and 1 tab qd PRN breakthrough agitation. Unknown Citalopram 40 mg tablet Discont inued 40 MG PO Daily December 02, 2024 12:00a m March 06, 2025 10:16 pm Metoprolol Succinate 25 mg tablet extended release 24 hr Active 25 MG PO Daily February 13, 2025 8:18pm Unknown Escitalopra m Oxalate 20 mg tablet Active 20 MG PO Daily 90 March 07, 2025 12:00a m Unknown Cefuroxime Axetil 500 mg tablet Discont inued 500 MG PO Twice daily March 26, 2024 12:00a m Septe mber 2023 5:45p m Buspirone 10 mg tablet Discont inued 10 MG PO Three times daily 84 March 26, 2024 4:31pm Decem ava 2023 4:04p m Celecoxib (Celebrex) 200 mg capsule Discont inued 200 MG PO Twice daily 56 March 26, 2024 4:32pm Febru sharonda 2024 7:17p m Cetirizine (Zyrtec) 10 mg capsule Discont inued 10 MG PO Daily as needed for rash March 26, 2024 4:32pm Septe mber 2023 2:23p m Escitalopra m Oxalate (Lexapro) 20 mg tablet Discont inued 20 MG PO Daily March 26, 2024 4:33pm Decem ava 2023 10:39 pm Furosemide 40 mg tablet Discont inued 40 MG PO Every morning March 26, 2024 4:34pm Febru sharonda 2024 7:17p m Melatonin 5 mg capsule Discont inued 5 MG PO Daily at bedtime March 26, 2024 4:35pm Augus t 2024 2:53p m Metoprolol Succinate 25 mg tablet extended release 24 hr Discont inued 25 MG PO Daily March 26, 2024 4:35pm February 13, 2025 8:18p m Omeprazole 20 mg capsule,del ayed release(DR/ EC) Discont inued 20 MG PO Daily March 26, 2024 4:36pm Janua ry 2024 7:04p m Potassium Chloride 10 mEq capsule, extended release Discont inued 10 MEQ PO Daily March 26, [facility]24 [facility] 8:13p m Quetiapine (Seroquel) 25 mg tablet Discont inued 25 MG PO Daily at bedtime March 26, 2024 4:37pm [facility] 2023 9:13p m Quetiapine 25 mg tablet Discont inued 25 MG PO .COMPLEX March 26, 2024 12:00a m Septe [facility] 2023 9:12p m 1/2 to 1 tablet qd PRN anxiety. Latanoprost 0.005 % drops Active 1 DROPS EYE-BROOKS TH Daily 2.5 March 26, 2024 4:43pm Unknown Triamcinolo ne Acetonide 0.1 % ointment Discont inued 1 APPLIC TOPICA L Daily as needed for rash 454 March 26, 2024 12:00a m Decem ava 2023 4:06p m D-Mannose (Azo D-Mannose) 500 mg capsule Discont inued 2000 MG PO Daily Decemb er 2023 1:00am Augus t 2024 2:52p m Estradiol 0.01 % (0.1 mg/gram) cream Active VAGINA L Decemb er 2023 1:00am Unknown Gentamicin 40 mg/mL solution Discont inued 80 MG IM Three times daily Decemb er 2023 1:00am 2024 2:52p m Cranberry Conc-Ascorb ic Acid 4,200-20 mg capsule Discont inued 2 CAP PO Twice daily [facility] er 2023 1:00am Aug 2024 2:52p m cornsilk Discont inued PO [facility] er 2023 1:00am Aug 2024 2:51p m Methenamine Hippurate 1 gram tablet Active 1 GM PO Daily at bedtime March 15, 2025 12:00a m Unknown Famotidine 20 mg tablet Active 20 MG PO Daily March 15, 2025 12:00a m Unknown Docusate Sodium 100 mg capsule Active 100 MG PO Twice daily March 15, 2025 12:00a m Unknown Loratadine 10 mg tablet Active 10 MG PO Daily March 15, 2025 12:00a m Unknown Sennosides (Senna) 8.6 mg capsule Active 8.6 MG PO Daily March 15, 2025 12:00a m Unknown Lactobacill us Acidophilus 25 million cell capsule Active 2 CELL PO March 15, 2025 12:00a m Unknown Immunizations Immunization Event Date Not Given Reason Dose Number [employer] Lot Number Vaccine Information Statement (VIS) Detail Administration Location COVID-19 mRNA, Comirnaty ([employer]) September 04, 2020 [id number] COVID-19 mRNA, Comirnaty ([employer]) September 25, 2020 [id number] COVID-19 mRNA, Comirnaty ([employer]) July 21, 2021 [id number] Quadrivalent Influenza (mdv) June 18, 2014 Influenza vaccine, quadrivalent, adjuvanted April 20, 2022 [id number] influenza, unspecified formulation May 06, 2015 influenza, unspecified formulation June 21, 2019 influenza, unspecified formulation April 20, 2022 influenza, unspecified formulation May 17, 2023 Pneumococcal Conjugate Vaccine, 13 valent June 21, 2019 Pneumococcal Polysacc. Vaccine, 23 valent March 02, 2022 Zoster Vaccine Recombinant, Adjuvanted July 13, 2019 [id number] Tetanus, Diphtheria adult, 2 Lf pres free abs October 12, 2022 Tetanus, Diphtheria, Pertussis (Tdap) April 20, 2016 Procedures Procedure Date Performed Status Urine Culture March 24, 2025 active Relevant Diagnostic Tests and/or Laboratory Data Laboratory Results Test Collection Date/Time Result Date/Time Result Interpretation Reference Range Result Comment Performing Site Lactic Acid Level March 24, 2025 4:25pm March 24, 2025 4:25pm 2.5 mmol/L Above upper panic limits 0.4-2.0 RESULTS CALLED TO DENISE SHAVER B-Type Natriure tic Peptide March 24, 2025 4:25pm March 24, 2025 4:25pm 1291.0 pg/mL <=1800.0 Troponin I High Sensitiv ity March 24, 2025 4:25pm March 24, 2025 4:25pm 13.2 pg/mL 4.0-51.3 CUT-OFF POINTS HAVE BEEN ESTABLISHED BASED ON THE FOURTHUNIVE RSAL DEFINITION OF MYOCARDIAL INFARCTION. THE UPPERREFERE NCE LIMIT (URL) OF TROPONIN, DEFINED THE 99THPERCENT ILE OF cTnI DISTRIBUTIO N IN A REFERENCE POPULATION, HAS BEEN CONFIRMED THE DECISION THRESHOLD FOR MIDIAGNOSIS .99TH PERCENTILE = 51.4 PG/MLNOTE: HIGH-SENSIT IVITY TROPONIN ASSAY IS NOT INTENDED TO BEUSED IN ISOLATION BUT SHOULD BE INTERPRETED IN CONJUNCTION WITH OTHER DIAGNOSTIC AND CLINICAL INFORMATION . Anion Gap March 24, 2025 4:25pm March 24, 2025 4:25pm 9.3 Thyroid Stimulat ing Hormone 3rd Gen March 24, 2025 4:25pm March 24, 2025 4:25pm 0.921 u[iU]/mL 0.358-3.74 0 Basophil s # (Auto) March 24, 2025 4:25pm March 24, 2025 4:25pm 0.0 10 3/uL 0.0-0.1 Urine Culture Reflexed March 24, 2025 5:08pm [facility] Albumin/ Globulin Ratio March 24, 2025 4:25pm March 24, 2025 4:25pm 0.7 Basophil s (%) (Auto) March 24, 2025 4:25pm March 24, 2025 4:25pm 0.3 % 0.2-2.0 Urine Other Casts March 24, 2025 5:08pm NONE SEEN #/LPF NONE SEEN Albumin March 24, 2025 4:25pm March 24, 2025 4:25pm 3.2 g/dL Below low normal 3.4-5.0 Eosinoph ils # (Auto) March 24, 2025 4:25pm March 24, 2025 4:25pm 0.1 10 3/uL 0.0-0.7 Urine Other Crystals March 24, 2025 5:08pm None Seen #/HPF None Seen Alkaline Phosphat ase March 24, 2025 4:25pm March 24, 2025 4:25pm 105 U/L 46-116 Eosinoph ils (%) (Auto) March 24, 2025 4:25pm March 24, 2025 4:25pm 0.4 % Below low normal 0.9-7.0 Urine Bacteria March 24, 2025 5:08pm MODERATE #/HPF Abnormal (applies to non-numeric results) NONE SEEN Alanine Aminotra nsferase (ALT/SGP T) March 24, 2025 4:25pm March 24, 2025 4:25pm 16 U/L 14-59 Hematocr it March 24, 2025 4:25pm March 24, 2025 4:25pm 41.7 % 36.0-48.0 Urine Bilirubi n March 24, 2025 5:08pm NEGATIVE NEGATIVE Aspartat e Amino Transf (AST/SGO T) March 24, 2025 4:25pm March 24, 2025 4:25pm 18 U/L 15-37 Hemoglob in March 24, 2025 4:25pm March 24, 2025 4:25pm 14.0 g/dL 12.0-16.0 Urine Occult Blood March 24, 2025 5:08pm SMALL Abnormal (applies to non-numeric results) NEGATIVE BUN/Crea tinine Ratio March 24, 2025 4:25pm March 24, 2025 4:25pm 12.6 Immature Granuloc yte # (Auto) March 24, 2025 4:25pm March 24, 2025 4:25pm 0.04 10 3/uL Above high normal 0.00-0.03 Urine Appearan ce March 24, 2025 5:08pm CLOUDY Abnormal (applies to non-numeric results) CLEAR Blood Urea Nitrogen March 24, 2025 4:25pm March 24, 2025 4:25pm 11.0 mg/dL 7.0-18.0 Immature Granuloc yte % (Auto) March 24, 2025 4:25pm March 24, 2025 4:25pm 0.3 % 0.0-0.5 Urine Color March 24, 2025 5:08pm LT YELLOW YELLOW Calcium Level March 24, 2025 4:25pm March 24, 2025 4:25pm 8.3 mg/dL Below low normal 8.5-10.1 Lymphocy fahad # (Auto) March 24, 2025 4:25pm March 24, 2025 4:25pm 1.6 10 3/uL 1.2-3.8 Urine Glucose (UA) March 24, 2025 5:08pm NEGATIVE mg/dL NEGATIVE Chloride Level March 24, 2025 4:25pm March 24, 2025 4:25pm 105 mmol/L 98-107 Lymphocy fahad (%) (Auto) March 24, 2025 4:25pm March 24, 2025 4:25pm 13.0 % Below low normal 20.5-60.0 Urine Ketones March 24, 2025 5:08pm NEGATIVE mg/dL NEGATIVE Carbon Dioxide Level March 24, 2025 4:25pm March 24, 2025 4:25pm 28.1 mmol/L 21.0-32.0 Mean Corpuscu lar Hemoglob in March 24, 2025 4:25pm March 24, 2025 4:25pm 32.8 pg 26.7-34.0 Urine Leukocyt e Esterase March 24, 2025 5:08pm LARGE Abnormal (applies to non-numeric results) NEGATIVE Creatini ne March 24, 2025 4:25pm March 24, 2025 4:25pm 0.87 mg/dL 0.55-1.02 Mean Corpuscu lar Hemoglob in Concent March 24, 2025 4:25pm March 24, 2025 4:25pm 33.6 g/dL 29.9-35.2 Urine Mucus March 24, 2025 5:08pm TRACE Abnormal (applies to non-numeric results) NONE SEEN Estimate d GFR ( ) March 24, 2025 4:25pm March 24, 2025 4:25pm >60 >=60 mL/min/1.7 3m 2 Mean Corpuscu lar Volume March 24, 2025 4:25pm March 24, 2025 4:25pm 97.7 fL 81.0-99.0 Urine Nitrite March 24, 2025 5:08pm NEGATIVE NEGATIVE Estimate d GFR (Non-Afr ican [place] March 24, 2025 4:25pm March 24, 2025 4:25pm >60 >=60 mL/min/1.7 3m 2 Monocyte s # (Auto) March 24, 2025 4:25pm March 24, 2025 4:25pm 0.6 10 3/uL 0.3-0.8 Urine pH March 24, 2025 5:08pm 6.0 5.0-9.0 Globulin March 24, 2025 4:25pm March 24, 2025 4:25pm 4.7 g/dL Monocyte s (%) (Auto) March 24, 2025 4:25pm March 24, 2025 4:25pm 4.5 % 1.7-12.0 Urine Protein March 24, 2025 5:08pm NEGATIVE mg/dL NEG/TRACE Glucose Level March 24, 2025 4:25pm March 24, 2025 4:25pm 168 mg/dL Above high normal 74-106 Mean Platelet Volume March 24, 2025 4:25pm March 24, 2025 4:25pm 10.1 fL 9.5-13.5 Urine RBC March 24, 2025 5:08pm 10-20 #/HPF Abnormal (applies to non-numeric results) 0-2 Potassiu m Level March 24, 2025 4:25pm March 24, 2025 4:25pm 3.4 mmol/L Below low normal 3.5-5.1 Neutroph ils # (Auto) March 24, 2025 4:25pm March 24, 2025 4:25pm 10.1 10 3/uL Above high normal 1.4-6.5 Urine Specific [place] March 24, 2025 5:08pm 1.015 1.005-1.02 5 Sodium Level March 24, 2025 4:25pm March 24, 2025 4:25pm 139 mmol/L 136-145 Neutroph ils (%) (Auto) March 24, 2025 4:25pm March 24, 2025 4:25pm 81.5 % Above high normal 43.0-75.0 Urine Squamous Epitheli al Cells March 24, 2025 5:08pm MODERATE #/LPF Abnormal (applies to non-numeric results) NONE/RARE Total Bilirubi n March 24, 2025 4:25pm March 24, 2025 4:25pm 0.8 mg/dL 0.2-1.0 Platelet Count March 24, 2025 4:25pm March 24, 2025 4:25pm 169 10 3/uL 150-450 Urine Urobilin ogen March 24, 2025 5:08pm 0.2 EU/dL 0.2-1.0 Total Protein March 24, 2025 4:25pm March 24, 2025 4:25pm 7.9 g/dL 6.4-8.2 Red Blood Count March 24, 2025 4:25pm March 24, 2025 4:25pm 4.27 10 6/uL 4.20-5.40 Urine WBC March 24, 2025 5:08pm >100 #/HPF Abnormal (applies to non-numeric results) NONE SEEN Red Cell Distribu tion Width March 24, 2025 4:25pm March 24, 2025 4:25pm 13.0 % 11.0-15.0 Correcte d White Blood Count March 24, 2025 4:25pm March 24, 2025 4:25pm 12.4 10 3/uL Above high normal 4.0-11.0 Correcte d White Blood Count February 28, 2025 8:08am February 28, 2025 12:11pm 5.8 10*3/uL 3.8-11.6 [facility] [id number] [address] [facility] [address] Uncorrec kala WBC Count February 28, 2025 8:08am February 28, 2025 12:11pm 5.8 10*3/uL 3.8-11.6 [facility] [id number] [address] [facility] [address] Red Blood Count February 28, 2025 8:08am February 28, 2025 12:11pm 3.98 10*6/uL 3.60-5.00 [facility] [id number] [address] [facility] [address] Hemoglob in February 28, 2025 8:08am February 28, 2025 12:11pm 12.9 g/dL 11.8-15.4 [facility] [id number] [address] [facility] [address] Hematocr it February 28, 2025 8:08am February 28, 2025 12:11pm 38.6 % 34.0-46.4 [facility] [id number] [address] [facility] [address] Mean Corpuscu lar Volume February 28, 2025 8:08am February 28, 2025 12:11pm 97.1 fL 80-100 [facility] [id number] [address] [facility] [address] Mean Corpuscu lar Hemoglob in February 28, 2025 8:08am February 28, 2025 12:11pm 32.5 pg 24.7-34.3 [facility] [id number] [address] [facility] [address] Mean Corpuscu lar Hemoglob in Concent February 28, 2025 8:08am February 28, 2025 12:11pm 33.4 g/dL 32.0-35.0 [facility] [id number] [address] [place] [address] Red Cell Distribu tion Width February 28, 2025 8:08am February 28, 2025 12:11pm 13.4 % 11.9-15.3 [facility] [id number] [address] [place] [address] Platelet Count February 28, 2025 8:08am February 28, 2025 12:11pm 182 10*3/uL 150-450 [facility] [id number] [address] [place] [address] Mean Platelet Volume February 28, 2025 8:08am February 28, 2025 12:11pm 8.3 fL 6.3-10.7 [facility] [id number] [address] [facility] [address] Neutroph ils (%) (Auto) February 28, 2025 8:08am February 28, 2025 12:11pm 48.6 % . [facility] [id number] [address] [facility] [address] Lymphocy fahad (%) (Auto) February 28, 2025 8:08am February 28, 2025 12:11pm 36.6 % . [facility] [id number] [address] [facility] [address] Monocyte s (%) (Auto) February 28, 2025 8:08am February 28, 2025 12:11pm 7.3 % . [facility] [id number] [address] [facility] [address] Eosinoph ils (%) (Auto) February 28, 2025 8:08am February 28, 2025 12:11pm 6.6 % . [facility] [id number] [address] [facility] [address] Basophil s (%) (Auto) February 28, 2025 8:08am February 28, 2025 12:11pm 0.9 % . [facility] [id number] [address] [facility] [address] Nucleate d RBC Relative Count (auto) February 28, 2025 8:08am February 28, 2025 12:11pm 0.1 /100{WBC} 0-0.5 [facility] [id number] [address] [place], [place] [address] Neutroph ils # (Auto) February 28, 2025 8:08am February 28, 2025 12:11pm 2.8 10*3/uL 1.8-7.7 [facility] [id number] [address] [place] [address] Lymphocy fahad # (Auto) February 28, 2025 8:08am February 28, 2025 12:11pm 2.1 10*3/uL 1.00-4.8 [facility] [id number] [address] [place] [address] Monocyte s # (Auto) February 28, 2025 8:08am February 28, 2025 12:11pm 0.4 10*3/uL 0.0-0.8 [facility] [id number] [address] [place], [place] [address] Eosinoph ils # (Auto) February 28, 2025 8:08am February 28, 2025 12:11pm 0.4 10*3/uL 0.0-0.45 [facility] [id number] [address] [place], [place] [address] Basophil s # (Auto) February 28, 2025 8:08am February 28, 2025 12:11pm 0.1 10*3/uL 0.0-0.2 [facility] [id number] [address] [place] [address] Glucose Level February 28, 2025 8:08am February 28, 2025 12:18pm 98 mg/dL 70-100 ADA recommended reference rangeRandom Glucose Reference Range is dependent on time and content of last meal. Glucose of more than 200 mg/dL in a nonstressed , ambulatory subject supports the diagnosis of Diabetes Mellitus. [facility] [id number] [address] [place], [place] [id number] Blood Urea Nitrogen February 28, 2025 8:08am February 28, 2025 12:18pm 13 mg/dL 7-25 [facility] [id number] [address] [place], [place] [address] Creatini ne February 28, 2025 8:08am February 28, 2025 12:18pm 0.73 mg/dL 0.60-1.20 [facility] [id number] [address] [place] [address] Estimate d GFR (CKD-EPI ) February 28, 2025 8:08am February 28, 2025 12:18pm > 60.0 mL/Min [facility] [id number] [address] [place], [place] [address] Sodium Level February 28, 2025 8:08am February 28, 2025 12:18pm 141 mmol/L 136-145 [facility] [id number] [address] [place], [place] [address] Potassiu m Level February 28, 2025 8:08am February 28, 2025 12:18pm 4.0 mmol/L 3.5-5.1 [facility] [id number] [address] [place], [place] [address] Chloride Level February 28, 2025 8:08am February 28, 2025 12:18pm 101 mmol/L 98-107 [facility] [id number] [address] [place], [place] [address] Carbon Dioxide Level February 28, 2025 8:08am February 28, 2025 12:18pm 34.7 mmol/L Above high normal 21.0-31.0 [facility] [id number] [address] [facility] [address] Anion Gap February 28, 2025 8:08am February 28, 2025 12:18pm 9.3 mEq/L 6.0-15.0 [facility] [id number] [address] [place] [address] Calcium Level February 28, 2025 8:08am February 28, 2025 12:18pm 8.7 mg/dL 8.6-10.3 [facility] [id number] [address] [place] [address] Total Protein February 28, 2025 8:08am February 28, 2025 12:18pm 7.0 g/dL 6.4-8.9 [facility] [id number] [address] [place] [address] Albumin February 28, 2025 8:08am February 28, 2025 12:18pm 3.5 g/dL 3.5-5.7 [facility] [id number] [address] [place] [address] Globulin February 28, 2025 8:08am February 28, 2025 12:18pm 3.5 g/dL [facility] [id number] [address] [place] [address] Albumin/ Globulin Ratio February 28, 2025 8:08am February 28, 2025 12:18pm 1.0 [facility] [id number] [address] [place] [id number] Total Bilirubi n February 28, 2025 8:08am February 28, 2025 12:18pm 0.6 mg/dL 0.3-1.0 [facility] [id number] [address] [place] [id number] Aspartat e Amino Transf (AST/SGO T) February 28, 2025 8:08am February 28, 2025 12:18pm 15 U/L 13-39 [facility] [id number] [address] [place] [id number] Alanine Aminotra nsferase (ALT/SGP T) February 28, 2025 8:08am February 28, 2025 12:18pm 9 U/L 7-52 [facility] [id number] [address] [place] [id number] Alkaline Phosphat ase February 28, 2025 8:08am February 28, 2025 12:18pm 85 U/L 34-104 [facility] [id number] [address] [place] [id number] Pharmacy Creatini ne Chaitanya e (Chem February 28, 2025 8:08am February 28, 2025 12:18pm N/A [facility] [id number] [address] [place] [id number] Vital Signs Vital Reading Result Reference Range Collection Date/Time Height 60 [in_i] March 15 2:37pm Weight 85.44 kg March 15 2:37pm Heart Rate 64 /min 60-100 March 15 2:37pm Respiratory rate 12 /min -March 15, 2025 2:37pm BP Systolic 125 mm[Hg] 100-140 March 15 2:37pm BP Diastolic 81 mm[Hg] 60-100 March 15 2:37pm BMI (Body Mass Index) 36.8 kg/m2 March 15, 2025 2:37pm Advance Directives Advance Directive Response Recorded Date/ Time Advance Directives No March 04 2:23pm Insurance Providers Guarantor Caridad Adalberto Heaton Address [address] [place] [phone] Contact Info. Home Phone: Payer Policy Id Subscriber's Name Subscriber Id Effe ctive Date Expiration Date Medicare [id number] Caridadlaurita Glover I [id number] [employer] [facility] PFFS [id number] Caridad Glover I [id number] [facility] PFFS [id number] Caridad Glover I [id number] Encounters Encounter Location(s) Arrival/Admit Date Discharge/Depart Date Provider(s) Departed Clinical -Lab [address] February 28, 2025 8:02am February 28, 2025 8:03am Sunny Taylor MD Departed Physician/Prov ider Office Visit -[facility] March 15, 2025 2:30pm March 15, 2025 3:31pm Edmond Souza DO Non-patient / Non-visit -[facility] March 24, 2025 4:25pm Sunny Ocampo PA-C Departed Referred -[facility] March 24, 2025 5:08pm March 24, 2025 5:09pm Sunny Ocampo PA-C Recent Diagnosis Onset Date Admit Date Alzheimer dementia Unknown March 15, 025 2:30pm 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) Unknown March 15, 2025 2:30pm Chronic venous insufficiency of lower extremity Unknown March 15, 2025 2:30pm Compulsive skin picking Unknown March 152024 2:30pm Major depression Unknown March 15 2:30pm Medicare annual wellness visit, subsequent Unkno wn March 15, 2025 2:30pm NAWAF (obstructive sleep apnea) Unknown 2024 2:30pm Psoriatic arthritis Unknown March 15, 2025 2:30pm Pulmonary hypertension Unknown March 2:30pm Assessments Diagnosis Onset Date Resolution Status Admit Date [...] Augus t 2024 2:30pm Pulmonary hypertension acute 2024 2:30pm Plan of Treatment Author Edmond Souza [facility] Authored March 15, 2025 3:3 6pm I have instructed this patie nt on the recommended lifestyle changes, which includes a low fat, high fiber diet along with a regular exercise routine. I have also reviewed the recommended age-appropriate preventive testing for this patient. I have also reviewed the recommended vaccines for their age and risk factors. Optimize BP control. Salt and water restriction. 'Gentle diuresis. I have instructed this patient to avoid salt and elevate their lower extremities. I have also recommended use of support stockings. I instructed them to inspect their legs and feet daily for blisters and ulcerations. Continue Lasix without interruption Continue supportive care. Requires 24 hour care and assistance w/ ADL Given her recurrent UTI and severity of most recent infection, considering on d/c Remicade. OA spine, hips and knees are more disabling to her at this time Reassure. Use moisturizing lotions often. Continue Zyrtec and topical steroid crm as needed Trial of compounded crm from [facility] This patient is aware of the benefits associated with treatment of NAWAF: With continued use, the patient reduces the risk for IA, CVA, HTN, cardiac dysrhythmias and sudden cardiac deaths. The patient is also aware of the association between NAWAF and morning headaches, daytime somnolence, fatigue and obesity Due to her cognitive impairment, compliance poor Evaluated w/ treatment guided by Psychiatry. Mood stable, confused w/ periods of agitation. Continue Sertraline without interruption I have instructed this patient on a low salt diet, exercise and daily weights. I have instructed them to notify the office for any on any unexpected weight gain > 3lbs and /or increased dyspnea on exertion, difficulty breathing during sleep, worsening lower extremity swelling, chest pain or lightheadedness. I have reviewed the GDMT with beta blockers, ERICA/ARB or ARNI, MRA and a SGLT-2i. Echo: LVEF 70%, normal RV size/function, RVSP 45-50 - 03/2024 Future Tests Future scheduled test information is unavailable Pending Tests Test Name Ordered Date Scheduled Date Urine Culture March 24, 2025 5:08pm Future Visits Future appointment information is unavailable Referrals to Other Providers Referral information is unavailable Future Procedures Procedure Name Ordered Date Scheduled Date Urine Culture March 24, 2025 7:53pm March 24, 2025 5:08pm Future Medications Future medication information is unavailable Patient Instructions Patient instructions are unavailable
--- OUTSIDE RECORDS SUMMARY | 2025-04-05 09:32 | XMS_ITS | Encounter Summary ---
Author Organization [facility] Address [address] [place] [address] Care Team Providers Care Weight Control Engineer Name Role Phone Rojas Brown Primary Care Provider [phone] Source Comments In the event this information is protected by the Federal Confidentiality of Alcohol and Drug AbusePatient Records regulations: The Federal rules restrict any use of the information to criminally investigate or prosecute any alcohol or drug abuse patient.[facility] Reason for Visit * Reason Comments Refill Request Encounter Details Date Type Department Care Team (Late st Contact Info) Description 03/27/2025 Refill Ophthalmology [address] [place] [address] Evans Yarbrough, OD [address] [place] [address] Refill Request Social History Tobacco Use Types Packs/Day Years Used Date Smoking Tobacco: Never Smokeless Tobacco: Never Alcohol Use Standard Drinks/Week Comments Yes 0 (1 standard drink = 0.6 oz pure alcohol) beer, wine (3-4 beers a day on occasion) Area Deprivation Index Answer Date Livan rded National Score (1-100), lower number is lower ri sk 46 01/19/2023 State Score (1-10), lower number is lower risk 2 01/19/2023 Data from: https://www.neighborhoodatlas.[facility]/. Last address used for calculation [address] 01/19/2023 Comments Unknown Sex and Gender Information Value Date Recorded Sex Assigned at Not on file Legal Sex Female 10:33 AM EST Gender Identity Not on file Sexual Orientation Not on file documented as of this encounter Miscellaneous Notes * Telephone Encounter - Evans Yarbrough OD - 03/27/2025 12:33 PM EDT Rx sent in Patrice Yarbrough documented in this encounter Plan of Treatment Not on file documented as of this encounter Visit Diagnoses Not on filedocumented in this encounter Care Teams Weight Control Engineer Relationship Specialty Start Date End Date Rojas Brown [address] [place] [id number] PCP - General 08/31/13 documented as of this encounter
--- OUTSIDE RECORDS SUMMARY | 2025-04-05 09:32 | XMS_ITS | Encounter Summary ---
Author Organization [facility] Address [address] [place] [address] Care Team Providers Care Scientific Database Curator Name Role Phone Edmond Souza DO Primary Care Provider [phone] Encounter Details Date Type Department Care Team (Late st Contact Info) Description 03/26/2025 Results Follow-Up [facility] Orthopaedics [address] [facility] [place] [address] Sunny Ocampo PA [address] [facility] [place] [address] URINE CULTURE Social History Tobacco Use Types Packs/Day Years Used Date Smoking Tobacco: Never Passive Smoke Exposure: Never Smokeless Tobacco: Never Alcohol Use Standard Drinks/Week Comments Never 0 (1 standard drink = 0.6 oz pur e alcohol) caffiene 4cups/day Comments No Sex and Gender Information Value Date Recorded Sex Assigned at Not on file Legal Sex Female 7:16 PM EDT Gender Identity Not on file Sexual Orientation Not on file documented as of this encounter Plan of Treatment Not on file documented as of this encounter Visit Diagnoses Not on filedocumented in this encounter Care Teams Scientific Database Curator Relationship Specialty Start Date End Date Edmond Souza DO PCP - General Internal Medicine 12/24/22 documented as of this encounter
--- OUTSIDE RECORDS SUMMARY | 2025-04-05 09:32 | XMS_ITS | Encounter Summary ---
Author Organization [facility] Address [address] [place] [address] Care Team Providers Care Senior Graduate Advisor Name Role Phone Edmond Souza DO Primary Care Provider [phone] Encounter Details Date Type Department Care Team (Late st Contact Info) Description 03/25/2025 Results Follow-Up [facility] Orthopaedics [address] [facility] [place] [address] Sunny Ocampo PA [address] [facility] [place] [address] ECG 12-LEAD, BLOOD CULTURE 1, BLOOD CULTURE 2 Social History Tobacco Use Types Packs/Day Years [...] on filedocumented in this encounter Care Teams Senior Graduate Advisor Relationship Specialty Start Date End Date Edmond Souza DO PCP - General Internal Medicine 12/24/22 documented as of this encounter
--- OUTSIDE RECORDS SUMMARY | 2025-04-05 09:32 | XMS_ITS | Clinical Summary ---
Author Organization [facility] Address [address] [place] [address] Care Team Providers Care Marine Electrician Helper Name Role Phone Rojas Brown Primary Care Provider [phone] Allergies Active Allergy Reactions Criticality Noted Date Comments Cortisone Other: See Comments 05/20/2017 Spinal fluid suppressed Methylprednisolone Other: See Comments 08/31/19 14 Severe headaches Medications Multivitamins- Minerals-Lutei n (CENTRUM SILVER) tab Take 1 tablet by mouth once daily. 0 4 Active EPINEPHrine (EPIPEN) 0.3 mg/0.3 mL auto-injector 9 Active metoprolol succinate ER (TOPROL XL) 25 mg 24 hr tablet Take 25 mg by mouth once daily. 2 Active tiZANidine (ZANAFLEX) 4 mg tablet Take by mouth. 2 Active omeprazole (PRILOSEC) 20 mg capsule TAKE 1 CAPSULE BY MOUTH ONCE DAILY Oral for 30 Days Active celecoxib (CELEBREX) 200 mg capsule Take 200 mg by mouth once daily. 3 Active escitalopram oxalate (LEXAPRO) 20 mg tablet Take 20 mg by mouth daily at bedtime. 3 Active busPIRone (BUSPAR) 10 mg tablet 3 Active infliximab (REMICADE INTRAVENOUS) Inject intravenous ly. Every 8 weeks Active latanoprost (XALATAN) 0.005 % ophthalmic solution INSTILL 1 DROP INTO EACH EYE ONCE DAILY 2.5 mL 11 5 Active latanoprost (XALATAN) 0.005 % ophthalmic solution Use 1 Drop in both eyes once daily. 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 Lens replaced 10/29/2015 After-cataract obscuring vision 10/29/2015 Dry eye syndrome 10/29/2015 Lens replaced by other means - Both Eyes 015 Epiretinal membrane (ERM) of left eye 10/25/2014 After-cataract, obscuring vision - Both Eyes Preglaucoma, unspecified 03/20/2014 Senile cataract, unspecified 08/24/2013 Encounters Date Type Department Care Team Description 03/27/2025 Refill Ophthalmology [address] [place] [address] Evans Yarbrough, OD Refill Request from Last 3 Months Family History Medical History Relation Comments Coronary Artery Disease Father Cancer Sister hodgkin's, melan wm Relation Status Comments Father Sister Social History Tobacco Use Types Packs/Day Years Used Date Smoking Tobacco: Never Smokeless Tobacco: Never Tobacco Cessation:Counseling Given: Not Answered Alcohol Use Standard Drinks/Week Comments Yes 0 (1 standard drink = 0.6 oz pure alcohol) beer, wine (3-4 beers a day on occasion) Area Deprivation Index Answer Date Livan rded National Score (1-100), lower number is lower ri sk 46 01/19/2023 State Score (1-10), lower number is lower risk 2 01/19/2023 Data from: https://www.neighborhoodatlas.medicine.[facility].edu/. Last address used for calculation [address] 01/19/2023 Comments Unknown Sex and Gender Information Value Date Recorded Sex Assigned at Not on file Legal Sex Female 10:33 AM EST Gender Identity Not on file Sexual Orientation Not on file Last Filed Vital Signs Vital Sign Reading Time Taken Comments Blood Pressure 160/81 01/19/2023 12:38 PM EDT Pulse 54 01/19/2023 12:38 PM EDT Temperature 36.3 C (97.4 F) 09/18/2013 8:47 AM EST Respiratory Rate 16 09/18/2013 10:12 AM EST Oxygen Saturation 97% 09/18/2013 10:12 AM EST Inhaled Oxygen Concentration - - Weight 84.5 kg (186 lb 4.8 oz) 01/19/2023 12:38 PM EDT Height 152.4 cm (5') 08/31/2013 1:49 PM EST Body Mass Index 36.38 08/31/2013 1:49 PM EST Plan of Treatment Health Maintenance Due Date Last Done Comments Cervical Cancer Screening 1953 Diabetes Screening 1987 Bone Density Screening 2007 RSV Vaccine (1 - 1-dose 75+ series) 2017 Shingrix Vaccine (2 of 2) 09/07/2019 07/13/2019 Pneumococcal Vaccine: 50+ (2 of 2 - PCV) 03/02/2023 03/02/2022 Advance Directive Discussion 08/08/2024 Medicare Advantage Annual We llness Visit 08/08/2024 Influenza Vaccine (#1) 2025 , 06/18/2014, 05/31/2013 DTaP,Tdap,Td Vaccine (3 - Td or Tdap) 10/12/203202/2023, 04/20/2016 Medical Devices Implanted Type Area Ground Products Director Device Identifier Shelf Expiration Date Model / Serial / Lot Lens Iol +21 Shama 13mm 6mm Pc - [id number] Implanted:Qty : 1 on 09/11/2013 at [facility] Intraocular Lens Right: Eye - Lens [employer] 07/07/2018 SN60WF 21.0 / [id number] / Lens Iol +20.5 Shama Acrsf Iq - [id number] Implanted:Qty : 1 on 09/18/2013 at [facility] Intraocular Lens Left: Eye - Lens [employer] 06/07/2018 SN60WF 20.5 / [id number] 12 / Description:IQ Insurance [facility] MEDICARE ADVANTAGE PPO Advance Directives Documents on File Type Date Recorded Patient Plasma Center Technician Expl anation Advance Directive(s) 01/28/2023 4:45 PM Rimma salas Will Advance Directive(s) 01/28/2023 4:44 PM OA Care Teams Marine Electrician Helper Relationship Specialty Start Date End Date Rojas Brown [address] [place] [id number] PCP - General 08/31/13
--- OUTSIDE RECORDS SUMMARY | 2025-04-05 09:32 | XMS_ITS | Encounter Summary ---
Author Organization [facility] Address [address] [place] [address] Care Team Providers Care Arabic Teacher Name Role Phone Edmond Souza DO Primary Care Provider [phone] Encounter Details Date Type Department Care Team (Late st Contact Info) Description 03/24/2025 Clinisync Result Encounter [facility] External Department Unsolicited Sunny Ocampo, PA [address] [place] [address] Social History Tobacco Use Types Packs/Day Years [...] on file documented as of this encounter Procedures Procedure Name Priority Date/Time Associated Diagnosis Comments ECG 12-LEAD 03/24/2025 3:47 PM EDT documented in this encounter Results * ECG 12-LEAD (03/24/2025 3:47 PM EDT) Anatomical Region Laterality Modality Other 03/24/2025 3:47 PM EDT Narrative 03/25/2025 5:43 PM EDT The [address] [address] Electrocardiograph Report Signed Patient: SHAHBAZ CARIAS I MR#: [id number] : 1940 Acct:[id number] Age/Sex: 84 / F ADM Date: 03/24/25 Loc: [place] 217-[address]: Analilia Juarez M.D. Ordering Physician: Sunny Ocampo Date of Service: 03/24/25 Procedure(s): ECG 12 lead Accession Number(s): [id number] cc: The [facility] Test Date: 2025-03-24 Pat Name: SHAHBAZ CARIAS Department: Room: - Gender: Female Metal Roaster: : 1940 Requested By: [id number] Order Number: [id number] Reading MD: ARIA FISH M.D. Measurements Intervals [place] Rate: 78 P: 49 MT: 180 QRS: 42 QRSD: 80 T: 70 QT: 386 QTc: 420 Interpretive Statements 1100 Sinus rhythm 1574 with frequent ventricular premature complexes 8102 Low QRS voltage in chest leads abnormal ECG Compared to ECG 03/25/2024 09:31:09 Ventricular premature complex(es) now present Low QRS voltage now present Electronically Signed On 03-25-2025 17:43:20 EDT by ARIA FISH M.D. Dictated By: ARIA FISH Signed By: 03/25/25 17403/25/25 174 DD/ 1547 TD/TT: Helicopter Utility Aircrewman: Procedure Note Radiology, Radiologist, MD - 03/25/2025 [place] [address] Electrocardiograph Report Signed Patient: SHAHBAZ CARIAS IMR#: [id number] : 1940cct:[id number] Age/Sex: 84 / FADM Date: 03/24/25 Loc: [place] 217-[address]: Analilia Juarez M.D. Ordering Physician: Sunny Ocampo Date of Service: 03/24/25 Procedure(s): ECG 12 lead Accession Number(s): [id number] cc: [facility] Test Date: 2025-03-24 Pat Name: SHAHBAZ CARIAS Department: Room: - Gender: Female Metal Roaster: : 1940 Requested By: [id number] Order Number: [id number] Reading MD: ARIA FISH M.D. Measurements Intervals [place] Rate: 78 P: 49 MT: 180 QRS: 42 QRSD: 80 T: 70 QT: 386 QTc: 420 Interpretive Statements 1100 Sinus rhythm 1574 with frequent ventricular premature complexes 8102 Low QRS voltage in chest leads abnormal ECG Compared to ECG 03/25/2024 09:31:09 Ventricular premature complex(es) now present Low QRS voltage now present Electronically Signed On 03-25-2025 17:43:20 EDT by ARIA FISH M.D. Dictated By: ARIA FISH Signed By:03/25/25 1743 03/25/25 174 DD/ 1547 TD/TT: Helicopter Utility Aircrewman: us Sunny [facility] Final Resul t documented in this encounter Visit Diagnoses Not on filedocumented in this encounter Care Teams Arabic Teacher Relationship Specialty Start Date End Date Edmond Souza DO PCP - General Internal Medicine 12/24/22 documented as of this encounter
--- OUTSIDE RECORDS SUMMARY | 2025-04-05 09:32 | XMS_ITS | Encounter Summary ---
Author Organization [facility] Address [address] [place] [address] Care Team Providers Care Plastic Machine Operator Name Role Phone Edmond Souza DO Primary Care Provider [phone] Encounter Details Date Type Department Care Team (Late st Contact Info) Description 03/25/2025 Results Follow-Up [facility] Orthopaedics [address] [facility] [address] Sunny Ocampo PA [address] [facility] [place] [address] URINE CULTURE - [facility] Social History Tobacco Use Types Packs/Day Years [...] on filedocumented in this encounter Care Teams Plastic Machine Operator Relationship Specialty Start Date End Date Edmond Souza DO PCP - General Internal Medicine 12/24/22 documented as of this encounter
--- OUTSIDE RECORDS SUMMARY | 2025-04-05 09:32 | XMS_ITS | Encounter Summary ---
Author Organization [facility] Address [address] [place] [address] Care Team Providers Care Starting Sheet Tank Operator Name Role Phone Edmond Souza DO Primary Care Provider [phone] Encounter Details Date Type Department Care Team (Late st Contact Info) Description 03/25/2025 Results Follow-Up [facility] [address] [place] [address] Sunny Ocampo PA [address] [place] [address] Urine culture, AEROBIC YASMINE CHARGE (NMIC56) Social History Tobacco Use Types Packs/Day Years [...] on filedocumented in this encounter Care Teams Starting Sheet Tank Operator Relationship Specialty Start Date End Date Edmond Souza DO PCP - General Internal Medicine 12/24/22 documented as of this encounter
--- OUTSIDE RECORDS SUMMARY | 2025-04-05 09:32 | XMS_ITS | Encounter Summary ---
Author Organization [facility] Address [address] [place] [address] Care Team Providers Care Tip Tester Name Role Phone Edmond Souza DO Primary Care Provider [phone] Encounter Details Date Type Department Care Team (Late st Contact Info) Description 01/17/2023 Abstract [facility] [address] [place] [id number] Michael Rodriguez DO [address] [place] [address] Social History Tobacco Use Types Packs/Day Years Used Date Smoking Tobacco: Never Passive Smoke Exposure: Never Smokeless Tobacco: Never Tobacco Cessation:Counseling Given: Not Answered Alcohol Use Standard Drinks/Week Comments Never 0 [...] on filedocumented in this encounter Care Teams Tip Tester Relationship Specialty Start Date End Date Edmond Souza DO PCP - General Internal Medicine 12/24/22 documented as of this encounter
--- OUTSIDE RECORDS SUMMARY | 2025-04-05 09:32 | XMS_ITS | Clinical Summary ---
Author Organization [facility] Address [address] [place] [address] Care Team Providers Care Cathode Ray Tube Salvage Processor Name Role Phone Edmond Souza DO Primary Care Provider [phone] Allergies Active Allergy Reactions Criticality Noted Date Comments Bee Venom 01/16/2023 Other Reaction(s): Unknown Cortisone 05/20/2017 Other Reaction(s): Other: See Comments, severe headache Spinal fluid suppressed Penicillin V 01/16/2023 Other Reaction(s): Unknown Medications Folic Acid 0.8 MG capsule 1 (one) time each day at the same time. Active biotin 10 MG tablet every 12 (twelve) hours. Active latanoprost (Xalatan) 0.005 % ophthalmic solution 1 (one) time each day at the same time. Active cholecalciferol (Vitamin D-3) 25 MCG (1000 UT) capsule Vitamin D-3 Active inFLIXimab (Remicade) 100 MG injection Remicade Active Pilocarpine HCl 1.25 % solution Pilocarpine HCl Active METOPROLOL SUCCINATE ER PO Metoprolol Succinate Active methotrexate 2.5 MG tablet Oral Active Meloxicam 15 MG tablet dispersible Meloxicam Active escitalopram (Lexapro) 10 MG tablet Lexapro Active Multiple Vitamins-Mineral s (CENTRUM SILVER ULTRA WOMENS PO) Centrum Silver Ultra Womens Active BABY ASPIRIN PO Baby Aspirin A ctive Active Problems No known active problems Encounters Date Type Department Care Team Description 03/26/2025 Results Follow-Up [facility] [address] [address] Sunny Ocampo PA URINE CULTURE 03/26/2025 [facility] [address] [place] [address] Sunny Ocampo PA 03/25/2025 Results Follow-Up [facility] [address] [place] [address] Sunny Ocampo PA ECG 12-LEAD, BLOOD CULTURE 1, BLOOD CULTURE 2 03/25/2025 Results Follow-Up [facility] [address] [place] [address] Sunny Ocampo PA ECG 12-LEAD 03/25/2025 Results Follow-Up [facility] [address] [place] [address] Sunny Ocampo PA Urine culture, AEROBIC YASMINE CHARGE (NMIC56) 03/25/2025 Results Follow-Up [place] [address] [place] [address] Sunny Ocampo PA URINE CULTURE - [facility] 03/24/2025 Clinisync Result Encounter [facility] External Department Unsolicited Sunny Ocampo PA 03/24/2025 Clinisync Result Encounter [facility] External Department Unsolicited Sunny Ocampo PA 03/24/2025 External Result Encounter [facility] External Department Unsolicited Sunny Ocampo PA 03/24/2025 Clinisync Result Encounter [facility] External Department Unsolicited Sunny Ocampo PA from Last 3 Months Family History Medical History Relation Name Comments Arthritis Mother Relation Name Status Comments Father Maternal Grandfather Maternal Grandmother Mother Paternal Grandfather Paternal Grandmother Social History Tobacco Use Types Packs/Day Years [...] Sign Reading Time Taken Comments Blood Pressure 122/76 09/29/2021 12:00 PM EST Pulse - - Temperature 36.4 C (97.6 F) 01/17/2023 8:37 AM EDT Respiratory Rate - - Oxygen Saturation - - Inhaled Oxygen Concentration - - Weight 84.4 kg (186 lb) 01/17/2023 8:37 AM EDT Height 152.4 cm (5') 01/17/2023 8:37 AM EDT Body Mass Index 36.33 01/17/2023 8:37 AM EDT Plan of Treatment Health Maintenance Due Date Last Done Comments Pneumococcal Vaccine: 65+ Ye ars (2 of 2 - PCV) 03/02/2023 03/02/2022 Influenza Vaccine (#1) 2025 2, 06/18/2014, 05/31/2013 Procedures Procedure Name Priority Date/Time Associated Diagnosis Comments URINE CULTURE Routine 03/26/2025 9:47 AM EDT AEROBIC YASMINE CHARGE (NMIC56) Routine 03/24/2025 5:08 PM EDT URINE CULTURE - [facility] Routine 03/24/2025 5:08 PM EDT CULTURE, URINE, ROUTINE Routine 03/24/2025 5:08 PM EDT BLOOD CULTURE 2 Routine 03/24/2025 4:17 PM EDT BLOOD CULTURE 1 Routine 03/24/2025 4:09 PM EDT ECG 12-LEAD 03/24/2025 4:03 PM EDT ECG 12-LEAD 03/24/2025 3:47 PM EDT from Last 3 Months Results * URINE CULTURE (03/26/2025 9:47 AM EDT) us Sunny WALKER LAB BLOOD ORDERABLES Final Re sult * (ABNORMAL) URINE CULTURE - [facility] (03/24/2025 5:08 PM EDT) [facility] URINE CULTURE - FR Urine Culture - FR Testing performed at [facility] URINE CULTURE - [facility] [address] [place] [address] [facility] URINE CULTURE - FR O:ESCCOL Isolated TB URINE CULTURE - FR Urine Culture - FR [place] Count [facility] URINE CULTURE - FR >100,000 CFU/ml [facility] URINE CULTURE - FR Organism: 1.1 Antibiotic Interpretation YASMINE Status TB URINE CULTURE - FR Amikacin S F(S) TB URINE CULTURE - [facility] Amoxicillin/Clavul anate S F(S) TB URINE CULTURE - [facility] Ampicillin S F(S) TB URINE CULTURE - [facility] Aztreonam S F(S) TB URINE CULTURE - [facility] Ceftazidime S F(S) TB URINE CULTURE - [facility] Ceftazidime/Avibac nick S F(S) TB URINE CULTURE - [facility] Ceftolozane/Tazoba ctam S F(S) TB URINE CULTURE - [facility] Ciprofloxacin S F(S) TB URINE CULTURE - [facility] Ertapenem S F(S) TB URINE CULTURE - [facility] Gentamicin S F(S) TB URINE CULTURE - [facility] Levofloxacin S F(S) TB URINE CULTURE - [facility] Meropenem S F(S) [facility] URINE CULTURE - [facility] Meropenem/Vaborbac nick S F(S) TB URINE CULTURE - [facility] Nitrofurantoin S F(S) TB URINE CULTURE - [facility] Tetracycline S F(S) TB URINE CULTURE - [facility] Tigecycline S F(S) TB URINE CULTURE - [facility] Tobramycin S F(S) TB URINE CULTURE - [facility] Ampicillin/Sulbact am S F(S) TB URINE CULTURE - [facility] Cefazolin S F(S) TB URINE CULTURE - [facility] Cefepime S F(S) TB URINE CULTURE - [facility] Ceftriaxone S F(S) TB URINE CULTURE - [facility] Cefuroxime S F(S) TB URINE CULTURE - [facility] Piperacillin/Tazob actam S F(S) TB URINE CULTURE - [facility] Trimethoprim/Sulfa S F(S) TB 03/24/2025 5:08 PM EDT 03/24/2025 5:13 PM EDT Narrative [facility] - 03/26/2025 3:56 PM EDT us Sunny WALKER LAB BLOOD ORDERABLES Final Re sult [facility] * (ABNORMAL) AEROBIC YASMINE CHARGE (NMIC56) (03/24/2025 5:08 PM EDT) AMIKACIN <16(S) 03/26/2025 8:45 AM EDT [facility] AMOXACILLIN/K CLAVULANATE <8/4(S) 03/26/2025 8:45 AM EDT [facility] AMPICILLIN <8(S) 03/26/2025 8:45 AM EDT [facility] AMPICILLIN/SULBACT AM <4/2(S) 03/26/2025 8:45 AM EDT [facility] AZTREONAM <4(S) 03/26/2025 8:45 AM EDT [facility] CEFAZOLIN <2(S) 03/26/2025 8:45 AM EDT [facility] CEFEPIME <2(S) 03/26/2025 8:45 AM EDT [facility] CEFTAZIDIME <1(S) 03/26/2025 8:45 AM EDT [facility] CEFTAZIDIME/AVIBAC NICK <4(S) 03/26/2025 8:45 AM EDT [facility] CEFTOLOZANE/TAZOBA CTAM <2(S) 03/26/2025 8:45 AM EDT [facility] CEFTRIAXONE <1(S) 03/26/2025 8:45 AM EDT [facility] CEFUROXIME <4(S) 03/26/2025 8:45 AM EDT [facility] CIPROFLOXACIN <0.25(S) 03/26/2025 8:45 AM EDT [facility] ERTAPENEM <0.5(S) 03/26/2025 8:45 AM EDT [facility] GENTAMICIN <2(S) 03/26/2025 8:45 AM EDT [facility] LEVOFLOXACIN <0.5(S) 03/26/2025 8:45 AM EDT [facility] MEROPENEM <1(S) 03/26/2025 8:45 AM EDT [facility] MEROPENEM/VABORBAC NICK <2(S) 03/26/2025 8:45 AM EDT [facility] NITROFURANTOIN <32(S) 03/26/2025 8:45 AM EDT [facility] PIPERACILLIN/TAZOB ACTAM <8(S) 03/26/2025 8:45 AM EDT [facility] TETRACYCLINE <4(S) 03/26/2025 8:45 AM EDT [facility] TIGECYCLINE <2(S) 03/26/2025 8:45 AM EDT [facility] TOBRAMYCIN <2(S) 03/26/2025 8:45 AM EDT [facility] TRIMETHOPRIM/SULFA METHOXAZOLE <0.5/9.5( S) 03/26/2025 8:45 AM EDT [facility] Urine Urine specimen obtained by clean catch procedure / Unknown 03/24/2025 5:08 PM EDT 03/24/2025 7:53 PM EDT Comment:Clean-Voided Midstre am Sunny WALKER [facility] Final Result Performing Organization Address [facility] de Phone Number [facility] [address] [place] [address], [facility] [address] [place] [address] * Urine culture (03/24/2025 5:08 PM EDT) [facility] ORGANISM Escherichia coli 03/26/2025 8:45 AM EDT [facility] COLONY COUNT >100,000 03/26/2025 8:45 AM EDT [facility] Urine Urine specimen obtained by clean catch procedure / Unknown 03/24/2025 5:08 PM EDT 03/24/2025 7:53 PM EDT Comment:Clean-Voided Midstre am Sunny WALKER LAB MICROBIOLOGY - GENERAL OR DERABLES Final Result Performing Organization Address City/[facility] Co de Phone Number [facility] [address] [place] [address], [facility] [address] [place] [address] * BLOOD CULTURE 2 (03/24/2025 4:17 PM EDT) BLOOD CULTURE 2 Blood Culture 2 NG5D NO GROWTH AT 5 DAYS.^NO GROWTH AT 5 DAYS. TB 03/24/2025 4:17 PM EDT 03/24/2025 4:35 PM EDT Narrative [facility] - 03/30/2025 12:42 PM EDT LEFT WRIST - PEDS Sunny WALKER LAB BLOOD ORDERABLES Final Re sult Performing Organization Address [facility] Co de Phone Number [facility] TB * BLOOD CULTURE 1 (03/24/2025 4:09 PM EDT) BLOOD CULTURE 1 Blood Culture 1 NG5D NO GROWTH AT 5 DAYS.^NO GROWTH AT 5 DAYS. [facility] 03/24/2025 4:09 PM EDT 03/24/2025 4:34 PM EDT Narrative [facility] - 03/30/2025 12:42 PM EDT RIGHT AC - AEROBIC ONLY Sunny WALKER LAB BLOOD ORDERABLES Final Re sult Performing Organization Address [facility] Co de Phone Number [facility] * ECG 12-LEAD (03/24/2025 4:03 PM EDT) Only the most recent of2 resultswithin the time period is included. Anatomical Region Laterality Modality Other 03/24/2025 4:03 PM EDT Narrative 03/25/2025 5:45 PM EDT The [address] [address] Electrocardiograph Report Signed Patient: SHAHBAZ CARIAS I MR#: [id number] : 1940 Acct:[id number] Age/Sex: 84 / F ADM Date: 03/24/25 Loc: MS 217-[address]: Analilia Juarez M.D. Ordering Physician: Sunny Ocampo Date of Service: 03/24/25 Procedure(s): ECG 12 lead Accession Number(s): [id number] cc: [facility] Test Date: 2025-03-24 Pat Name: SHAHBAZ CARIAS Department: Room: - Gender: Female Slinger Sequins: : 1940 Requested By: [id number] Order Number: [id number] Reading MD: ARIA FISH M.D. Measurements Intervals [place] Rate: 78 P: -23738 DC: -21101 QRS: 96 QRSD: 132 T: -76 QT: 408 QTc: 442 Interpretive Statements SINUS RHYTHM with frequent ventricular premature complexes 8102 Low QRS voltage in chest leads 9150 abnormal ECG Compared to ECG 03/24/2025 15:47:27 Ventricular premature complexes are still present Electronically Signed On 03-25-2025 17:45:13 EDT by ARIA FISH M.D. Dictated By: ARIA FISH Signed By: 03/25/25 1745 03/25/25 1745 DD/ 1603 TD/TT: Managing Director: Procedure Note Radiology, Radiologist, MD - 03/25/2025 [place] [address] Electrocardiograph Report Signed Patient: SHAHBAZ CARIAS IMR#: [id number] : 1940cct:[id number] Age/Sex: 84 / FADM Date: 03/24/25 Loc: MS 217-[address]: Analilia Juarez M.D. Ordering Physician: Sunny Ocampo Date of Service: 03/24/25 Procedure(s): ECG 12 lead Accession Number(s): [id number] cc: [facility] Test Date: 2025-03-24 Pat Name: SHAHBAZ CARIAS Department: Room: - Gender: Female Slinger Sequins: : 1940 Requested By: [id number] Order Number: [id number] Reading MD: ARIA FISH M.D. Measurements Intervals [place] Rate: 78 P: -85825 DC: -07775 QRS: 96 QRSD: 132 T: -76 QT: 408 QTc: 442 Interpretive Statements SINUS RHYTHM with frequent ventricular premature complexes 8102 Low QRS voltage in chest leads 9150 abnormal ECG Compared to ECG 03/24/2025 15:47:27 Ventricular premature complexes are still present Electronically Signed On 03-25-2025 17:45:13 EDT by ARIA FISH M.D. Dictated By: ARIA FISH Signed By:03/25/25174403/25/25 174 DD/ 160 TD/TT: Managing Director: us Sunny WALKER [facility] Final Resul t from Last 3 Months Insurance [employer] MED[employer]ARE Care Teams Cathode Ray Tube Salvage Processor Relationship Specialty Start Date End Date Edmond Souza DO PCP - General Internal Medicine 12/24/22
--- OUTSIDE RECORDS SUMMARY | 2025-04-05 09:32 | XMS_ITS | Encounter Summary ---
Author Organization [facility] Address [address] [place] [address] Care Team Providers Care Straightening Press Operator Name Role Phone Edmnod Souza DO Primary Care Provider [phone] Encounter Details Date Type Department Care Team (Late st Contact Info) Description 03/24/2025 External Result Encounter [facility] External Department Unsolicited Sunny Ocampo, DENISE [address] [place] [address] Social History Tobacco Use Types [...] Procedure Name Priority Date/Time Associated Diagnosis Comments AEROBIC YASMINE CHARGE (NMIC56) Routine 03/24/2025 5:08 PM EDT CULTURE, URINE, ROUTINE Routine 03/24/2025 5:08 PM EDT documented in this encounter Results * (ABNORMAL) AEROBIC YASMINE CHARGE (NMIC56) (03/24/2025 5:08 PM EDT) AMIKACIN <16(S) 03/26/2025 8:45 AM EDT [facility] AMOXACILLIN/K CLAVULANATE <8/4(S) 03/26/2025 8:45 AM EDT [facility] AMPICILLIN <8(S) 03/26/2025 8:45 AM EDT [facility] AMPICILLIN/SULBACT AM <4/2(S) 03/26/2025 8:45 AM EDT [facility] AZTREONAM <4(S) 03/26/2025 8:45 AM EDT [facility] CEFAZOLIN <2(S) 03/26/2025 8:45 AM EDT [facility] CEFEPIME <2(S) 03/26/2025 8:45 AM EDT [facility] CEFTAZIDIME <1(S) 03/26/2025 8:45 AM EDT [facility] CEFTAZIDIME/AVIBAC SANTOS <4(S) 03/26/2025 8:45 AM EDT [facility] CEFTOLOZANE/TAZOBA CTAM <2(S) 03/26/2025 8:45 AM EDT [facility] CEFTRIAXONE <1(S) 03/26/2025 8:45 AM EDT [facility] CEFUROXIME <4(S) 03/26/2025 8:45 AM EDT [facility] CIPROFLOXACIN <0.25(S) 03/26/2025 8:45 AM EDT [facility] ERTAPENEM <0.5(S) 03/26/2025 8:45 AM EDT [facility] GENTAMICIN <2(S) 03/26/2025 8:45 AM EDT [facility] LEVOFLOXACIN <0.5(S) 03/26/2025 8:45 AM EDT [facility] MEROPENEM <1(S) 03/26/2025 8:45 AM EDT [facility] MEROPENEM/VABORBAC SANTOS <2(S) 03/26/2025 8:45 AM EDT [facility] NITROFURANTOIN <32(S) 03/26/2025 8:45 AM EDT [facility] PIPERACILLIN/TAZOB ACTAM <8(S) 03/26/2025 8:45 AM EDT [facility] TETRACYCLINE <4(S) 03/26/2025 8:45 AM EDT [facility] TIGECYCLINE <2(S) 03/26/2025 8:45 AM EDT [facility] TOBRAMYCIN <2(S) 03/26/2025 8:45 AM EDT [facility] TRIMETHOPRIM/SULFA METHOXAZOLE <0.5/9.5( S) 03/26/2025 8:45 AM EDT [facility] Urine Urine specimen obtained by clean catch procedure / Unknown 03/24/2025 5:08 PM EDT 03/24/2025 7:53 PM EDT Comment:Clean-Voided Midstre am Sunny WALKER [facility] Final Result Performing Organization Address City/[facility]/ZIP Co de Phone Number [facility] [address] [place] [address], [facility] [address] [place] [address] * Urine culture (03/24/2025 5:08 PM EDT) [facility] ORGANISM Escherichia coli 03/26/2025 8:45 AM EDT [facility] COLONY COUNT >100,000 03/26/2025 8:45 AM EDT [facility] Urine Urine specimen obtained by clean catch procedure / Unknown 03/24/2025 5:08 PM EDT 03/24/2025 7:53 PM EDT Comment:Clean-Voided Midstre am us Sunny WALKER LAB MICROBIOLOGY - GENERAL OR DERABLES Final Result [facility] [address] [place] [address], [facility] [address] [place] [address] documented in this encounter Visit Diagnoses Not on filedocumented in this encounter Care Teams Straightening Press Operator Relationship Specialty Start Date End Date Edmond Souza DO PCP - General Internal Medicine 12/24/22 documented as of this encounter
--- OUTSIDE RECORDS SUMMARY | 2025-04-05 09:32 | XMS_ITS | Encounter Summary ---
Author Organization [facility] Address [address] [place] [address] Care Team Providers Care President And Chief Commercial Officer Name Role Phone Edmond Souza DO Primary Care Provider [phone] Encounter Details Date Type Department Care Team (Late st Contact Info) Description 03/24/2025 Clinisync Result Encounter [facility] External Department Unsolicited Sunny Ocampo, PA [address] [place] [address] Social History Tobacco Use Types [...] Procedure Name Priority Date/Time Associated Diagnosis Comments BLOOD CULTURE 2 Routine 03/24/2025 4:17 PM EDT BLOOD CULTURE 1 Routine 03/24/2025 4:09 PM EDT ECG 12-LEAD 03/24/2025 4:03 PM EDT documented in this encounter Results * BLOOD CULTURE 2 (03/24/2025 4:17 PM EDT) BLOOD CULTURE 2 Blood Culture 2 NG5D NO GROWTH AT 5 DAYS.^NO GROWTH AT 5 DAYS. TB 03/24/2025 4:17 PM EDT 03/24/2025 4:35 PM EDT Narrative [facility] - 03/30/2025 12:42 PM EDT LEFT WRIST - PEDS us Sunny WALKER LAB BLOOD ORDERABLES Final Re sult Performing Organization Address [facility] Co de Phone Number [facility] * BLOOD CULTURE 1 (03/24/2025 4:09 PM EDT) BLOOD CULTURE 1 Blood Culture 1 NG5D NO GROWTH AT 5 DAYS.^NO GROWTH AT 5 DAYS. [facility] 03/24/2025 4:09 PM EDT 03/24/2025 4:34 PM EDT Narrative [facility] - 03/30/2025 12:42 PM EDT RIGHT AC - AEROBIC ONLY us Sunny WALKER LAB BLOOD ORDERABLES Final Re sult Performing Organization Address [facility] de Phone Number [facility] TB * ECG 12-LEAD (03/24/2025 4:03 PM EDT) Anatomical Region Laterality Modality Other 03/24/2025 4:03 PM EDT Narrative 03/25/2025 5:[place] [address] Electrocardiograph Report Signed Patient: SHAHBAZ CARIAS I MR#: [id number] : 1940 Acct:[id number] Age/Sex: 84 / F ADM Date: 03/24/25 Loc: MS 217-[address]: Analilia Juarez M.D. Ordering Physician: Sunny Ocampo Date of Service: 03/24/25 Procedure(s): ECG 12 lead Accession Number(s): [id number] cc: [facility] Test Date: 2025-03-24 Pat Name: SHAHBAZ CARIAS Department: Room: - Gender: Female Size Changer: : 1940 Requested By: [id number] Order Number: [id number] Reading MD: ARIA FISH M.D. Measurements Intervals [place] Rate: 78 P: -70857 SC: -60151 QRS: 96 QRSD: 132 T: -76 QT: 408 QTc: 442 Interpretive Statements SINUS RHYTHM with frequent ventricular premature complexes 8102 Low QRS voltage in chest leads 9150 abnormal ECG Compared to ECG 03/24/2025 15:47:27 Ventricular premature complexes are still present Electronically Signed On 03-25-2025 17:45:13 EDT by ARIA FISH M.D. Dictated By: ARIA FISH Signed By: 03/25/25174403/25/25 174 DD/ 160 TD/TT: Fabric Awning Repairer: Procedure Note Radiology, Radiologist, MD - 03/25/2025 [place] [address] Electrocardiograph Report Signed Patient: SHAHBAZ CARIAS IMR#: [id number] : 1940cct:[id number] Age/Sex: 84 / FADM Date: 03/24/25 Loc: MS 217-[address]: Analilia Juarez M.D. Ordering Physician: Sunny Ocampo Date of Service: 03/24/25 Procedure(s): ECG 12 lead Accession Number(s): [id number] cc: [facility] Test Date: 2025-03-24 Pat Name: SHAHBAZ CARIAS Department: Room: - Gender: Female Size Changer: : 1940 Requested By: [id number] Order Number: [id number] [place] MD: ARIA FISH M.D. Measurements Intervals [place] Rate: 78 P: -88884 SC: -97596 QRS: 96 QRSD: 132 T: -76 QT: 408 QTc: 442 Interpretive Statements SINUS RHYTHM with frequent ventricular premature complexes 8102 Low QRS voltage in chest leads 9150 abnormal ECG Compared to ECG 03/24/2025 15:47:27 Ventricular premature complexes are still present Electronically Signed On 03-25-2025 17:45:13 EDT by ARIA FISH M.D. Dictated By: ARIA FISH Signed By:03/25/25 1745 03/25/25 1745 DD/ 1603 TD/TT: Fabric Awning Repairer: us Sunny WALKER [facility] Final Resul t documented in this encounter Visit Diagnoses Not on filedocumented in this encounter Care Teams President And Chief Commercial Officer Relationship Specialty Start Date End Date Edmond Souza DO PCP - General Internal Medicine 12/24/22 documented as of this encounter
--- OUTSIDE RECORDS SUMMARY | 2025-04-05 09:32 | XMS_ITS | Encounter Summary ---
Author Organization [facility] Address [address] [place] [address] Care Team Providers Care Lithographic General Worker Name Role Phone Edmond Souza DO Primary Care Provider [phone] Encounter Details Date Type Department Care Team (Late st Contact Info) Description 03/26/2025 [facility] [address] [place] [address] Sunny Ocampo PA [address] [place] [address] Social History Tobacco Use Types [...] URINE CULTURE Routine 03/26/2025 9:47 AM EDT documented in this encounter Results * URINE CULTURE (03/26/2025 9:47 AM EDT) us Sunny WALKER LAB BLOOD ORDERABLES Final Re sult documented in this encounter Visit Diagnoses Not on filedocumented in this encounter Care Teams Lithographic General Worker Relationship Specialty Start Date End Date Edmond Souza DO PCP - General Internal Medicine 12/24/22 documented as of this encounter
--- OUTSIDE RECORDS SUMMARY | 2025-04-05 09:32 | XMS_ITS | Encounter Summary ---
Author Organization [facility] Address [address] [place] [address] Care Team Providers Care Rn Chronic Name Role Phone Edmond Souza DO Primary Care Provider [phone] Encounter Details Date Type Department Care Team (Late st Contact Info) Description 03/25/2025 Results Follow-Up [facility] [address] [place] [address] Sunny Ocampo PA [address] [facility] [place] [address] ECG 12-LEAD Social History Tobacco Use Types Packs/Day Years [...] on filedocumented in this encounter Care Teams Rn Chronic Relationship Specialty Start Date End Date Edmond Souza DO PCP - General Internal Medicine 12/24/22 documented as of this encounter
--- OUTSIDE RECORDS SUMMARY | 2025-04-05 09:32 | XMS_ITS | Encounter Summary ---
Author Organization [facility] Address [address] [place] [address] Care Team Providers Care Cargo Station Worker Name Role Phone Edmond Souza DO Primary Care Provider [phone] Encounter Details Date Type Department Care Team (Late st Contact Info) Description 03/24/2025 Clinisync Result Encounter [facility] Unsolicited Sunny Ocampo, PA [address] [place] [address] Social History Tobacco Use Types [...] Priority Date/Time Associated Diagnosis Comments URINE CULTURE - FR Routine 03/24/2025 5:08 PM EDT documented in this encounter Results * (ABNORMAL) URINE CULTURE - [facility] (03/24/2025 5:08 PM EDT) [facility] URINE CULTURE - [facility] Urine Culture - FR Testing performed at [facility] URINE CULTURE - [facility] [address] [place] [address] [facility] URINE CULTURE - FR O:ESCCOL Isolated [facility] URINE CULTURE - FR Urine Culture - FR [place] Count [facility] URINE CULTURE - [facility] >100,000 CFU/ml [facility] URINE CULTURE - [facility] Organism: 1.1 Antibiotic Interpretation YASMINE Status [facility] URINE CULTURE - [facility] Amikacin S F(S) [facility] URINE CULTURE - [facility] Amoxicillin/Clavul anate S F(S) [facility] URINE CULTURE - [facility] Ampicillin S F(S) [facility] URINE CULTURE [facility] Aztreonam S F(S) [facility] URINE CULTURE - [facility] Ceftazidime S F(S) [facility] URINE CULTURE - [facility] Ceftazidime/Avibac nick S F(S) [facility] URINE CULTURE - [facility] Ceftolozane/Tazoba ctam S F(S) [facility] URINE CULTURE - [facility] Ciprofloxacin S F(S) [facility] URINE CULTURE [facility] Ertapenem S F(S) [facility] URINE C[facility] Gentamicin S F(S) [facility]INE C[facility] Levofloxacin S F(S) [facility] URINE C[facility] Meropenem S F(S) [facility] URINE CULTURE [facility] Meropenem/Vaborbac nick S F(S) [facility] URINE CULTURE [facility] Nitrofurantoin S F(S) [facility] URINE CULT[facility] Tetracycline S F(S) [facility]INE C[facility] Tigecycline S F(S) [facility]INE CULT[facility] Tobramycin S F(S) [facility]INE C[facility] Ampicillin/Sulbact am S F(S) [facility] URINE CULTURE [facility] Cefazolin S F(S) [facility] URINE CULTURE [facility] Cefepime S F(S) [facility] URINE CULTURE [facility] Ceftriaxone S F(S) [facility] URINE CULTURE [facility] Cefuroxime S F(S) [facility] URINE CULTURE [facility] Piperacillin/Tazob actam S F(S) [facility]INE CULTURE - [facility] Trimethoprim/Sulfa S F(S) [facility] 03/24/2025 5:08 PM EDT 03/24/2025 5:13 PM EDT Narrative [facility] - 03/26/2025 3:56 PM EDT us Sunny [facility] BLOOD ORDERABLES Final Re sult [facility] documented in this encounter Visit Diagnoses Not on filedocumented in this encounter Care Teams Cargo Station Worker Relationship Specialty Start Date End Date Edmond Souza DO PCP - General Internal Medicine 12/24/22 documented as of this encounter
--- OUTSIDE RECORDS SUMMARY | 2025-04-05 09:36 | XMS_ITS | CCD ---
Author Organization [facility] Care Team Providers Care Planogrammer Name Role Phone EDMOND PACHECO Primary Care Unavailable JUNIOR, EDMOND Admitting Unavailable BALL, EDMOND Attending Unavailable BALL, EDMOND Consulting Unavailable BALL, EDMOND Admitting Unavailable BALL, EDMOND Attending Unavailable BALL, EDMOND Consulting Unavailable JUNIOR, EDMOND Primary Care Unavailable EDMOND PACHECO Primary Care Physician MD Luciano Taylor Attending Provider [phone] NON STAFF Primary Care Provider Unavailangel Verduzco, PhD Saran Attending Provider Rojas Brown Primary Care Provider NON STAFF Primary Care Provider UnavailMD Luciano Meehan Attending Provider Rojas Brown B Primary Care Provider RICCARDO [...] Attending Unavailable THAI PATEL Primary Care Unavailable FERNANDO ATTCHARLETTE Attending Unavailable THAI PATEL Primary Care Unavailable KISS ATTCHARLETTE Attending Unavailable THAI PATEL Primary Care Unavailable ANT KIRK Attending Unavailable RENAE PATELHIF Primary Care Physician Rojas Brown Primary Care Provider [phone] PATELRENAE PAIZHIF Primary Care Unavailable DOUG Thomas Attending Unavailable DOUG Thomas Admitting Unavailable BALL, EDMOND Admitting Unavailable BALL, EDMOND Attending Unavailable Immanuel, [facility] Nan bIrahim Attending Unavaila ble PASCALE, Inderjit Attending Unavailable Cyndi, Chaparro Soler Attending Unavailable PASCALE, Inderjit Attending Unavailable BALL, EDMOND Attending Unavailable BALL, EDMOND Admitting Unavailable BALL, EDMOND Attending Unavailable BALL, EDMOND Admitting Unavailable BALL, EDMOND Attending Unavailable BALL, EDMOND Admitting Unavailable Orestes, Austyn Consulting Unavailable Valente SALEEM Attending Unavailable Reuben DREW Admitting Unavailable MD Austyn Campos Consulting Unavailable Orestes, Austyn Consulting Unavailable Orestes, Austyn Consulting Unavailable Orestes, Austyn Consulting Unavailable Orestes, Austyn Consulting Unavailable Orestes, Austyn Consulting Unavailable Orestes, Austyn Consulting Unavailable Orestes, Austyn Consulting Unavailable Alex Bhatti Attending Unavailable Andres, Austyn Consulting Unavailable Reuben DREW Admitting Unavailable MD Ausytn Campos Consulting Unavailable Orestes, Austyn Consulting Unavailable Orestes, Austyn Consulting Unavailable Orestes, Austyn Consulting Unavailable Orestes, Austyn Consulting Unavailable Orestes, Austyn Consulting Unavailable Orestes, Austyn Consulting Unavailable Orestes, Austyn Consulting Unavailable THAI PATEL Primary Care [...] Admitting Unavailable DOUG Thomas Attending Unavailable PATEL, [facility] Primary Care Unavailable BALL, EDMOND Admitting Unavailable BALL, EDMOND Attending Unavailable PATEL, [facility] Primary Care Unavailable BALL, EDMOND Admitting Unavailable PATEL, [facility] Primary Care Unavailable BALL, EDMOND Attending Unavailable LuKarlee kwan Attending Unavailable PATEL, [facility] Primary Care Unavailable BALL, EDMOND Admitting Unavailable PATEL, [facility] Primary Care Unavailable BALL, EDMOND Attending Unavailable PATEL, [facility] Primary Care Unavailable PATEL, [facility] Primary Care Unavailable BALL, EDMOND Attending Unavailable BALL, EDMOND Admitting Unavailable BALL, EDMOND Admitting Unavailable BALL, EDMOND Attending Unavailable PATEL, [facility] Primary Care Unavailable BALL, EDMOND Admitting Unavailable BALL, EDMOND Attending Unavailable PATEL, [facility] Primary Care Unavailable BALL, EDMOND Admitting Unavailable BALL, EDMOND Attending Unavailable PATEL, [facility] Primary Care Unavailable Karlee Montes De Oca Attending Unavailable PATEL, [facility] Primary Care Unavailable DOUG CARVAJAL Admitting Unavailab le JANETTEDOUG Attending Unavailab le JANETTEDOUG Referring Unavailab le PATEL, [facility] Primary Care Unavailable PATEL, [facility] Primary Care Unavailable BALL, EDMOND Admitting Unavailable BALL, EDMOND Attending Unavailable DOUG CARVAJAL Admitting Unavailab le JANETTEDOUG RAYGOZA Attending Unavailab le PATEL, [facility] Primary Care Unavailable JANETTEDOUG RAYGOZA Attending Unavailab le PATEL, [facility] Primary Care Unavailable JANETTEDOUG RAYGOZA Attending Unavailab le PATEL, [facility] Primary Care Unavailable Edmond Pacheco DO Primary Care Provider [phone] Sunny Taylor MD Attending Provider [phone] Edmond Pacheco DO Attending Provider Edmond Pacheco DO Primary Care Provider Sunny Ocampo PA-C Attending Provider [phone] Sunny Ocampo Admitting Unavailable Sunny Ocampo Attending Unavailable Brandon, Sunny Admitting Unavailable Sunny Taylor Attending Unavailable Junior, Edmond Primary Care Unavailable Allergies Allergy Classification Reported Allergen(s) Allergy Type Date of Onset Reaction(s) Facility (12 sources) Cortisone; Translations: [CORTISONE] Drug Allergy 05-15-20 13 spinal fluid suppresion and headaches [facility] Repository (20 sources) Cortisone; Translations: [cortisone] Drug Allergy 05-20-20 17 Other: See Comments, Other (See Comments) [facility] (20 sources) methylPREDNISolon e; Translations: [methylprednisolo ne] Drug Allergy 08-30-19 Other: See Comments, Other (See Comments) [facility] Work Phone: (20 sources) cortizone injections Propensity to adverse reactions spinal fluid suppresion and headaches [facility] [employer] Other (2 sources) patient allergy list reviewed by nurse or physicia Propensity to adverse reactions 08-22-19 Comment:Done [employer] Other (20 sources) Substance with penicillin structure and antibacterial mechanism of action (substance) Drug allergy Comment:[facility] [employer] Other (1 source) Penicillins Allergy to substance 06-21-20 Comment:[facility] (9 sources) No Known Medication Allergies; Translations: [No Known Medication Allergies] Propensity to adverse reactions (disorder) [facility] Repository (7 sources) Penicillin; Translations: [penicillin] Drug Allergy Unknown (qualifier value) [facility] [place] (4 sources) Honey bee venom Allergy to substance 01-17-20 [facility] (4 sources) Penicillin V Drug Allergy 01-17-20 [facility] Medications Current Medications Medication Drug [...] by colton th once daily as needed Start: 03-22-2024 End: 05-03-2024 take 1 capsule by mouth once daily as needed Cetirizine (Zyrtec) 10 mg capsule Discontinued 10 MG PO Daily as needed for rash March 26, 2024 4:32pm May 03, 2024 2:23pm Start: 03-14-2023 take 1 capsule by mo [facility] [place] [facility] at bedtime cetirizine 10 mg oral capsule 10 mg = 1 cap(s), Oral, Bedtime, # 40 cap(s), Refills(s) 0, Pharmacy: [facility]/pharmacy #[id number], 152, cm, 03/10/23 11:33:00 EDT, Height/Length Dosing, 78, kg, 03/10/23 11:33:00 EDT, Weight Dosing Start Date: 03/14/23 Status: Ordered take 1 tablet by colton every twenty-four hours Cetirizine HCl 10 MG 1 tablet Orally Once a day Active Chondroitin Sulfates / Glucosamine (5 sources) Start: 07-12-2024 take 1 capsule by mouth three times daily Glucosamine Chondroitin 1 cap, Oral, TID Start Date: 07/12/24 Status: Ordered Start: 03-22-2024 Cranberry preparation (2 sources) Non-Standardized Food Allergenic [...] Active docusate sodium 100 mg oral capsule (7 sources) Start: 03-15-2025 take 1 capsule by mouth twice daily Start: 07-02-2024 docusate 50 mg , BID [...] mg by mouth d aily at bedtime. [id number] 0.3 ml EPINEPHrine 1 mg/ml auto-injector (8 sources) alpha-Adrenergic Agonist, beta-Adrenergic Agonist, Catecholamine Start: 9 EPINEPHrine (EPIPEN) 0.3 mg/0.3 mL auto-injector 03/07/2019 Active escitalopram 20 mg oral tablet (20 sources) Serotonin Reuptake Inhibitor Start: 2 End: 5 take 1 tablet by mouth once daily escitalopram (Le xapro) 10 MG tablet Lexapro Active Comment on above: Take 20 mg by mouth daily at bedtime. estradiol 0.1 mg/ml vaginal cream (8 sources) Estrogen Start: 07-16-2024 Start: 07-02-2024 Estrace 0.1 mg /g Cream See Instructions, 42.5 gm, Refill(s) 6, apply a pea-sized amount vaginally and around the urethra nightly x 3 weeks, then 3x per week thereafter, [facility], 153, cm, 07/02/24 14:02:00 EST, Height/Length Dosing, 95.6, kg, 07/02/24 14:02:00 EST, Weight Dosing Start Date: 07/02/24 Status: Ordered famotidine 20 mg oral tablet (2 sources) Histamine-2 Receptor Antagonist Start: 03-15-2025 take 1 tablet by mouth once daily Fish Oils (7 sources) Start: 03-10-2023 take [...] 0 Start Date: 03/10/23 Status: Ordered infliximab (NILSON JAMILAH INTRAVENOUS) Inject intravenously. Every 8 weeks Active inFLIXimab (Nilson jamilah) 100 MG injection Remicade Active infliximab (NILSON JAMILAH INTRAVENOUS) Inject intravenously. Every 8 weeks 0 Active Comment on above: Inject intravenously . Every 8 weeks lactobacillus acidophilus [id number] unt oral capsule (2 sources) Start: 03-15-20 latanoprost 0.05 mg/ml ophthalmic solution (20 sources) Prostaglandin Analog Start: 03-27-20 take 1 drop(s) into the eye(s) once daily latanoprost (XALATAN) 0.005 % ophthalmic solution INSTILL 1 DROP INTO EACH EYE ONCE DAILY 2.5 mL 03/27/2025 Active Start: 03-12-2024 End: 03-27-2025 take 1 drop(s) into the eye(s) once daily Start: 08-16-2022 End: 03-09-2024 take 1 drop(s) [...] once daily. loratadine 10 mg oral tablet (2 sources) Start: 03-15-2025 take 1 tablet by mouth once daily magnesium hydroxide 240 mg/ml oral suspension (5 [...] Start: 03-14-2023 take 1 tablet by colton once daily at bedtime Melatonin 1 mg oral tablet 1 mg, Oral, Once a day (at bedtime), # 30 tab(s), Refills(s) 0, Pharmacy: [facility]/pharmacy #[id number], 152, cm, 03/10/23 11:33:00 EDT, Height/Length Dosing, 78, kg, 03/10/23 11:33:00 EDT, Weight Dosing Start Date: 03/14/23 Status: Ordered take 1 capsule by mo [facility] [place] every twenty-four hours Melatonin 1 MG 1 capsule at bedtime as needed Orally Once a day Active methenamine hippurate 1000 m g oral tablet (4 sources) Start: 03-15-2025 Start: 07-12-2024 End: 07-07-2025 take 1 tablet by mouth twice daily methenamine hippurate 1 g oral tablet 1 gm = 1 tab(s), Oral, BID, X 30 day(s), # 60 tab(s), Refills(s) 11, Pharmacy: [facility], 153, cm, 07/12/24 8:20:00 EST, Height/Length [...] Multiple Vitamins-Minerals (CENTRUM SILVER ULTRA WOMENS PO) (4 sources) Multiple Vitamins-Minerals (CENTRUM SILVER ULTRA WOMENS PO) Centrum Silver Ultra Womens Active Multivitamins-Mineral s-Lutein (CENTRUM SILVER) tab (8 sources) Start: 08-31-19 14 take 1 tablet by mouth once daily Multivitamins-Mineral s-Lutein (CENTRUM SILVER) tab Take 1 tablet by mouth once daily. 0 08/31/2013 Active Comment on above: Take 1 tablet by [facility] daily. nitrofurantoin, macrocrystals 50 mg oral capsule (14 sources) Nitrofuran Antibacterial Start: 03-02-20 nitrofurantoin macrocrystals 50 mg Cap 21 cap(s), 0 Refill(s), Refills(s) 0 Start Date: 03/02/24 Status: Ordered omeprazole 20 mg delayed release oral capsule (20 sources) Proton Pump Inhibitor Start: 09-05-19 take 1 capsule by mouth once daily Start: 03-10-2023 End: 09-05-2024 take 1 capsule by mouth once daily Omeprazole 20 mg capsule,delayed release(DR/EC) Discontinued 20 MG PO Daily March 26, 2024 4:36pm September 05, 2024 7:04pm Comment on above: TAKE 1 CAPSULE BY [facility] ONCE DAILY Oral for 30 Days pilocarpine hydrochloride 5 mg oral tablet (17 sources) Cholinergic Receptor Agonist Start: take 1 [...] sources) Start: 04-25-2024 take 1 tablet by colton th once daily Start: 03-22-2024 End: 04-25-2024 take 1 capsule [...] 1 Start Date: 03/02/24 Status: Ordered sennosides, senior living 8.6 mg oral capsule (2 sources) Start: 03-15-2025 take 1 capsule by mouth once daily traZODone hydrochloride 50 mg oral tablet (6 sources) Serotonin Reuptake Inhibitor Start: 10-15-2024 take 1 tablet by mouth once daily at bedtime as needed Start: 09-26-2024 End: 10-15-2024 Trazodone 50 mg [...] Sig (Original) acetaminophen 500 mg oral tablet (8 sources) Start: 03-22-2024 End: 03-15-2025 take 1 tablet by mouth every six hours as needed Acetaminophen (Tylenol Extra Strength) 500 mg tablet Discontinued 500 MG PO Every 6 hours as needed March 22, 2024 12:00am March 15, 2025 2:51pm take 2 tablets by mo [facility] [place] every four hours as needed for pain [...] times a day Not-Taking/PRN Cranberry Conc-Ascorbic Acid (3 sources) Non-Standardized Food Allergenic Extract, Non-Standardized Plant [...] Take 1 tablet by colton once daily. busPIRone hydrochloride 10 mg oral tablet (20 sources) Start: 01-18-2023 End: 07-16-2024 take 1 tablet by mouth [...] BID, # 90 tab(s), Refills(s) 0, Pharmacy: [facility]/pharmacy #[id number], 152.4, cm, 05/09/22 21:11:00 EDT, Height/Length Dosing, 83, kg, 05/09/22 21:11:00 EDT, Weight Dosing Start Date: 05/12/22 Status: Ordered Start: 05-12-2022 take 5 mg by mouth t hree times daily busPIRone 10 mg Tab 5 mg = 0.5 tab(s), Oral, TID, # 90 tab(s), Refills(s) 0, Pharmacy: [facility]/pharmacy #[id number], 152.4, cm, 05/09/22 21:11:00 EDT, Height/Length Dosing, 83, kg, 05/09/22 21:11:00 EDT, Weight Dosing Start Date: 05/12/22 Status: Ordered BuSpar Active cefdinir 300 mg oral capsule (6 sources) Cephalosporin Antibacterial Start: 05-06-2024 End: 07-16-2024 take 1 capsule by mouth twice daily Cefdinir 300 mg capsule Discontinued 300 MG PO Twice daily 20 May 17, 2024 3:23pm July 16, 2024 4:05pm cefuroxime 500 mg oral tablet (3 sources) Cephalosporin Antibacterial Start: 03-26-2024 End: 05-06-2024 [...] Start: 03-10-2023 take 1 capsule by mo ut twice daily CeleBREX 200 mg Cap 200 mg = 1 cap(s), Oral, BID, Refills(s) 0 Start Date: 03/10/23 Status: Ordered Start: 08-31-2013 take 1 capsule by mo ut once daily celecoxib (CELEBREX) 200 mg capsule Take 200 mg by mouth once daily. 12/23/2022 Active Comment on above: Take 1 capsule by mo uth once daily. Take 200 mg by mouth once daily. Centrum Silver Ultra Mens (20 sources) Centrum Silver U ltra Mens Not-Taking/PRN Centrum Silver U ltra Mens Active cholecalciferol 0.025 mg oral capsule (10 sources) Vitamin D Start: 08-31-2013 take 1 [...] May, Not-Taking/PRN citalopram 40 mg oral tablet (3 sources) Serotonin Reuptake Inhibitor Start: 12-03-19 End: 03-06-20 take 1 tablet by mouth once daily Citalopram 40 mg tablet Discontinued 40 MG PO Daily December 02, 2024 12:00am March 06, 2025 10:16pm [place] silk preparation (5 sources) Start: 07-16-20 End: 03-15-20 25 cornsilk Discontinued PO July 16, 2024 1:00am March 15, 2025 2:51pm Start: 07-16-2024 Start: 07-12-2024 take 1 tablet by mouth once da kathy cornsilk 1,200 mg cornsilk 1,200 mg, 1 tab, Oral, Daily Start Date: 07/12/24 Status: Ordered D-Mannose (3 sources) Start: 07-16-2024 End: 03-15-2025 take 4 capsules by mouth once daily, then take 1 capsule by mouth once D-Mannose (Azo D-Mannose) 500 mg capsule Discontinued 2000 MG PO Daily July 16, 2024 1:00am March 15, 2025 2:52pm Start: 07-16-2024 take 4 capsules by out once daily, then take 1 capsule by mouth once ertapenem 1000 mg injection (3 sources) Penem Antibacterial Start: 06-04-2024 End: 07-16-2024 inject 1 g by intramuscular injection once daily Ertapenem 1 gram recon soln Discontinued 1 GM IM Daily 05 17June 04, 2024 12:00am July 16, 2024 3:53pm estrogens, conjugated (senior living) 0.625 mg/ml vaginal cream (20 sources) Estrogen [...] 2024 7:17pm gabapentin 100 mg oral capsule (3 sources) Anti-epileptic Agent Start: 2023 End: 2023 take 1 capsule by mouth twice daily Gabapentin 100 mg capsule Discontinued 100 MG PO Twice daily April 20, 2024 12:00am July 16, 2024 4:06pm 2 ml gentamicin 40 mg/ml injection (3 sources) Start: 2023 End: 2024 inject 80 mg by intramuscular injection three times daily Gentamicin 40 mg/mL solution Discontinued 80 MG IM Three times daily July 16, 2024 1:00am March 15, 2025 2:52pm Hydrocortisone (12 sources) Corticosteroid Start: 2023 hydrocortisone Top 1% Crm Refill(s) 0, 28 gm, 0 Refill(s) Start Date: 03/02/24 Status: Ordered ketoconazole 20 mg/ml medicated shampoo (3 sources) Azole Antifungal Start: 2024 End: 2024 [...] mouth . meloxicam 15 mg oral tablet (5 sources) Nonsteroidal Anti-inflammatory Drug Start: 2 End: [...] oral tablet (20 sources) beta-Adrenergic Walt Start: 05-28-2022 End: 02-13-2025 take 1 tablet by mouth once daily Metoprolol Succinate 25 mg tablet extended release 24 hr Discontinued 25 MG PO Daily March 26, 2024 4:35pm February 13, 2025 8:18pm Start: 05-12-2022 End: 05-12-2022 metoprolol 25 mg [...] Start: 12-13-2021 take 1 tablet by colton once daily [...] / nitrofurantoin, monohydrate 75 mg oral capsule (3 sources) Nitrofuran Antibacterial Start: 09 End: take 1 capsule by mouth twice [...] tablet Discontinued 25 MG PO Twice daily September 26, 2024 7:17pm November 20, 2024 [...] Bedtime, # 30 tab(s), Refills(s) 0, Pharmacy: [facility]/pharmacy #[id number], 152.4, cm, 05/09/22 21:11:00 EDT, Height/Length Dosing, 83, kg, 05/09/22 21:11:00 EDT, Weight Dosing Start Date: 05/12/22 Status: Ordered take 0.5 tablet by m out once daily QUEtiapine (SEROQUEL) 25 MG [...] mg / trimethoprim 160 mg oral tablet (14 sources) Dihydrofolate Reductase Inhibitor Antibacterial, Sulfonamide Antimicrobial [...] NAFLEX) 4 mg tablet Take by mouth. 12/13/2021 Active Comment on above: Take by [...] except food] Onset: 12-16-2014 Episodic Anxiety disorders (11 sources) Acute stress disorder; Translations: [Acute stress [...] Onset: 03-02-2024 Episodic Congestive heart failure; nonhypertensive (6 sources) Acute on chronic heart failure co-occurrent [...] without esophagitis] Onset: 07-10-2023 Chronic Essential hypertension (19 sources) Essential hypertension; Translations: [Essential (primary) hypertension] [...] current use of drug therapy; Translations: [Other terminal system operator (current) drug therapy] Onset: 03-16-2023 Episodic Other [...] Episodic Other diseases of veins and lymphatics (10 sources) Venous insufficiency of leg; Translations: [Venous [...] venom] Onset: 03-07-2019 Episodic Pulmonary heart disease (10 sources) Pulmonary hypertension; Translations: [Pulmonary hypertension, unspecified] [...] edema] Onset: 03-02-2024 Episodic Residual codes; unclassified (3 sources) Insomnia; Translations: [Insomnia, unspecified] 09-26-2024 Episodic Retinal detachments; defects; vascular occlusion; and retinopathy (20 sources) Epiretinal membrane of left eye; Translations: [...] (suspected) exposure to COVID-19] Urinary tract infections (18 sources) Acute cystitis; Translations: [Acute cystitis] Onset: [...] falls] Onset: 09-15-2023 Episodic Other eye disorders (17 sources) Tear film insufficiency; Translations: [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 Measurements Intervals [place] Rate: 78 P: -71697 [place]: -[address]228 QRS: 96 QRSD: 132 T: -76 QT: 408 QTc: 442 Interpretive Statements SINUS RHYTHM with frequent ventricular premature complexes 8102 Low QRS voltage in chest leads 9150 abnormal ECG Compared to ECG 03/24/2025 15:47:27 Ventricular premature complexes are still present Electronically Signed On 03-25-2025 17:45:13 EDT by ARIA FISH M.D. Dictated By: ARIA FISH Signed By: 03/25/25 1745 03/25/25 1745 DD/ 1603 TD/TT: Electric Meter Tester Shop: [facility] Radiology, Radiologist, MD - 03/25/2025 [place] [address] Electrocardiograph Report Signed Patient: CARIDAD CARIAS I MR#: [id number] : 1940 Acct:[id number] Age/Sex: 84 / F ADM Date: 03/24/25 Loc: [place] 217-[address]: Analilia Juarez M.D. 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 Measurements Intervals [place] Rate: 78 P: -00351 [place]: -[address]69 QRS: 96 QRSD: 132 T: -76 QT: 408 QTc: 442 Interpretive Statements SINUS RHYTHM with frequent ventricular premature complexes 8102 Low QRS voltage in chest leads 9150 abnormal ECG Compared to ECG 03/24/2025 15:47:27 Ventricular premature complexes are still present Electronically Signed On 03-25-2025 17:45:13 EDT by ARIA FISH M.D. Dictated By: ARIA FISH Signed By: 03/25/[id number]/25/[id number] DD/ 02 TD/TT: Electric Meter Tester Shop: [place] [address] Electrocardiograph Report Signed Patient: CARIDAD CARIAS I MR#: [id number] : 1940 Acct:[id number] Age/Sex: 84 / F ADM Date: 03/24/25 Loc: [place] 217-[address]: Analilia Juarez M.D. 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 Measurements Intervals [place] Rate: 78 P: 49 [place]: 180 QRS: 42 QRSD: 80 T: 70 QT: 386 QTc: 420 Interpretive Statements 1100 Sinus rhythm 1574 with frequent ventricular premature complexes 8102 Low QRS voltage in chest leads abnormal ECG Compared to ECG 03/25/2024 09:31:09 Ventricular premature complex(es) now present Low QRS voltage now present Electronically Signed On 03-25-2025 17:43:20 EDT by ARIA FISH M.D. Dictated By: ARIA FISH Signed By: 03/25/[id number]/25/251742 DD/ 1547 TD/TT: Electric Meter Tester Shop: [facility] Radiology, Radiologist, - 03/25/2025 [place] [address] Electrocardiograph Report Signed Patient: CARIDAD CARIAS I MR#: [id number] : 1940 Acct:[id number] Age/Sex: 84 / F ADM Date: 03/24/25 Loc: [place] 217-[address]: Analilia Juarez M.D. 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 Measurements Intervals [place] Rate: 78 P: 49 [place]: 180 QRS: 42 QRSD: 80 T: 70 QT: 386 QTc: 420 Interpretive Statements 1100 Sinus rhythm 1574 with frequent ventricular premature complexes 8102 Low QRS voltage in chest leads abnormal ECG Compared to ECG 03/25/2024 09:31:09 Ventricular premature complex(es) now present Low QRS voltage now present Electronically Signed On 03-25-2025 17:43:20 EDT by ARIA FISH M.D. Dictated By: ARIA FISH Signed By: 03/25/25174203/25/251742 DD/ 1547 TD/TT: Electric Meter Tester Shop: [facility] ECG 12-LEADOrdered By: [email or web address] Radiology on 03-25-2025 [facility] Work Phone: [facility] Work Phone: Basophils Auto (Bld) [#/Vol] Ordered By: Sunny Ocampo on 03-24-2025 Basophils (Bld) [#/Vol] 0.0 10 3/uL 0.0-0.1 [facility] Basophils/100 WBC Auto (Bld) Ordered By: Sunny Ocampo on 03-24-2025 Basophils/100 WBC (Bld) 0.3 % 0.2-2.0 F [facility] ECG 12-LEADon 03-24-2025 Radiology Study observation (narrative) [facility] Radiology Study observation (narrative) [facility] Eosinophils/100 WBC Auto (Bl d)Ordered By: Sunny Ocampo on 03-24-2025 Eosinophils/100 WBC (Bld) 0.4 % Low 0.9-7.0 [facility] Erythrocyte distribution wid th Auto (RBC) [Ratio]Ordered By: Sunny Ocampo on 03-24-2025 Erythrocyte distribution width (RBC) [Ratio] 13.0 % 11.0-15.0 [facility] Globulin Calc (S) [Mass/Vol] Ordered By: Sunny Ocampo on 03-24-2025 Globulin (S) [Mass/Vol] 4.7 g/dL F [facility] Glomerular filtration rate ( GFR) estimation in non- AmericanOrdered By: Sunny Ocampo on 03-24-2025 GFR/1.73 sq M.predicted among non-blacks MDRD (S/P/Bld) [Vol rate/Area] mL/min/{1.73_m2} >=60 mL/min/1.73 m 2 [facility] Hematocrit Auto (Bld) [Volum e fraction]Ordered By: Sunny Ocampo on 03-24-2025 Hematocrit (Bld) [Volume fraction] 41.7 % 36.0-48.0 [facility] Hemoglobin [Mass/volume] in BloodOrdered By: Sunny Ocampo on 03-24-2025 Hemoglobin (Bld) [Mass/Vol] 14.0 g/dL 12.0-16.0 [facility] Laboratory - Chemistry and C hemistry - challengeOrdered By: Sunny Ocampo on 03-24-2025 Bilirubin Ql (U) Negative NEGATIVE [facility] Glucose (U) [Mass/Vol] Negative NEGATIVE [facility] Ketones Ql (U) Negative NEGATIVE [facility] pH (U) 6.0 [pH] 5.0-9.0 [facility] Specific gravity (U) [Rel density] 1.015 1.005-1.025 [facility] Urobilinogen Qn (U) 0.2 {[place]'U}/dL 0.2-1.0 [facility] Albumin [Mass/Vol] 3.2 g/dL Low 3.4-5.0 [facility] ALP [Catalytic activity/Vol] 105 U/L 46-116 [facility] ALT [Catalytic activity/Vol] 16 U/L 14-59 [facility] AST [Catalytic activity/Vol] 18 U/L 15-37 [facility] Bilirubin [Mass/Vol] 0.8 mg/dL 0.2-1.0 [facility] Calcium [Mass/Vol] 8.3 mg/dL Low 8.5-10.1 [facility] Chloride [Moles/Vol] 105 mmol/L 98-107 [facility] CO2 [Moles/Vol] 28.1 mmol/L 21.0-32.0 [facility] Creatinine [Mass/Vol] 0.87 mg/dL 0.55-1.02 [facility] GFR/1.73 sq M.predicted MDRD (S/P/Bld) [Vol rate/Area] mL/min/{1.73_m2} >=60 mL/min/1.73 m 2 [facility] Glucose [Mass/Vol] 168 mg/dL High 74-106 [facility] Lactate [Moles/Vol] 2.5 mmol/L Critically high 0.4-2.0 [facility] Comment on above: RESULTS CALLED TO DENISE WARREN Natriuretic peptide B (Bld) [Mass/Vol] 1291.0 pg/mL <=1800.0 [facility] Potassium [Moles/Vol] 3.4 mmol/L Low 3.5-5.1 [facility] Protein [Mass/Vol] 7.9 g/dL 6.4-8.2 [facility] Sodium [Moles/Vol] 139 mmol/L 136-145 [facility] TSH Qn 0.921 m[IU]/L 0.358-3.740 [facility] Urea nitrogen [Mass/Vol] 11.0 mg/dL 7.0-18.0 [facility] Urea nitrogen/Creatinine [Mass ratio] 12.6 mg/mg [facility] Laboratory - Hematology and Cell countsOrdered By: Sunny Ocampo on 03-24-2025 Immature granulocytes/100 WBC (Bld) 0.3 % 0.0-0.5 [facility] Laboratory - Specimen inform ationOrdered By: Sunny Ocampo on 03-24-2025 Appearance (U) CLOUDY Abnormal CLEAR [facility] Color (U) LT YELLOW YELLOW [facility] Laboratory - UrinalysisOrder ed By: Sunny Ocampo on 03-24-2025 Leukocyte esterase Test strip Ql (U) LARGE Abnormal NEGATIVE [facility] Mucus Ql (Urine sed) TRACE Abnormal NONE SEEN [facility] Nitrite Ql (U) Negative NEGATIVE [facility] Protein Ql (U) Negative NEG/TRACE [facility] Leukocytes [#/volume] correc kala for nucleated erythrocytes in Blood by Automated counOrdered By: Sunny Ocampo on 03-24-2025 WBC corrected for nucl RBC Auto (Bld) [#/Vol] 12.4 10 3/uL High 4.0-11.0 [facility] Lymphocytes Auto (Bld) [#/Vo l]Ordered By: Sunny Ocampo on 03-24-2025 Lymphocytes (Bld) [#/Vol] 1.6 10 3/uL 1.2-3.8 [facility] Lymphocytes/100 WBC Auto (Bl d)Ordered By: Sunny Ocampo on 03-24-2025 Lymphocytes/100 WBC (Bld) 13.0 % Low 20.5-60.0 [facility] MCH Auto (RBC) [Entitic mass ]Ordered By: Sunny Ocampo on 03-24-2025 MCH (RBC) [Entitic mass] 32.8 pg 26.7-34.0 [facility] MCHC Auto (RBC) [Mass/Vol]Or dered By: Sunny Ocampo on 03-24-2025 MCHC (RBC) [Mass/Vol] 33.6 g/dL 29.9-35.2 [facility] MCV Auto (RBC) [Entitic vol] Ordered By: Sunny Ocampo on 03-24-2025 MCV (RBC) [Entitic vol] 97.7 fL 81.0-99.0 F [facility] Monocytes Auto (Bld) [#/Vol] Ordered By: Sunny Ocampo on 03-24-2025 Monocytes (Bld) [#/Vol] 0.6 10 3/uL 0.3-0.8 [facility] Monocytes/100 WBC Auto (Bld) Ordered By: Sunny Ocampo on 03-24-2025 Monocytes/100 WBC (Bld) 4.5 % 1.7-12.0 [facility] Neutrophils Auto (Bld) [#/Vo l]Ordered By: Sunny Ocampo on 03-24-2025 Neutrophils (Bld) [#/Vol] 10.1 10 3/uL High 1.4-6.5 [facility] Neutrophils/100 WBC Auto (Bl d)Ordered By: Sunny Ocampo on 03-24-2025 Neutrophils/100 WBC (Bld) 81.5 % High 43.0-75.0 [facility] No Panel InformationOrdered By: Sunny Ocampo on 03-24-2025 Urine Bacteria MODERATE #/HPF Abnormal NONE SEEN [facility] Urine Culture Reflexed YES-[facility] Urine Occult Blood SMALL Abnormal NEGATIVE [facility] Urine Other Casts NONE SEEN #/LPF NONE SEEN [facility] Urine Other Crystals None Seen #/HPF None Seen [facility] Urine RBC 10-20 #/HPF Abnormal 0-2 [facility] Urine Squamous Epithelial Cells MODERATE #/LPF Abnormal NONE/RARE [facility] Urine WBC >100 #/HPF Abnormal NONE SEEN [facility] Eosinophils # (Auto) 0.1 10 3/uL 0.0-0.7 [facility] Immature Granulocyte # (Auto) 0.04 10 3/uL High 0.00-0.03 [facility] Troponin I High Sensitivity 13.2 pg/mL 4.0-51.3 [facility] Comment on above: CUT-OFF POINTS HAVE BEEN ESTABLISHED BASED ON THE FOURTHUNIVERSAL DEFINITION OF MYOCARDIAL INFARCTION. THE UPPERREFERENCE LIMIT (URL) OF TROPONIN, DEFINED THE 99THPERCENTILE OF cTnI DISTRIBUTION IN A REFERENCE POPULATION,HAS BEEN CONFIRMED THE DECISION THRESHOLD FOR MIDIAGNOSIS.99TH PERCENTILE = 51.4 PG/MLNOTE: HIGH-SENSITIVITY TROPONIN ASSAY IS NOT INTENDED TO BEUSED IN ISOLATION BUT SHOULD BE INTERPRETED IN CONJUNCTIONWITH OTHER DIAGNOSTIC AND CLINICAL INFORMATION. Platelet mean volume Auto (B ld) [Entitic vol]Ordered By: Sunny Ocampo on 03-24-2025 Platelet mean volume (Bld) [Entitic vol] 10.1 fL 9.5-13.5 [facility] Platelets Auto (Bld) [#/Vol] Ordered By: Sunny Ocampo on 03-24-2025 Platelets (Bld) [#/Vol] 169 10 3/uL 150-450 [facility] RBC Auto (Bld) [#/Vol]Ordere d By: Sunny Ocampo on 03-24-2025 RBC (Bld) [#/Vol] 4.27 10 6/uL 4.20-5.40 [facility] Serum or plasma albumin/glob ulin mass ratioOrdered By: Sunny Ocampo on 03-24-2025 Albumin/Globulin [Mass ratio] 0.7 {ratio} [facility] Serum or plasma anion gap de terminationOrdered By: Sunny Ocampo on 03-24-2025 Anion gap [Moles/Vol] 9.3 mmol/L [facility] Urine Cultureon 03-24-2025 Bacteria identified Cx Nom (U) ORGANISM: Escherichia coli (O:ESCCOL) [place] Count >100,000 Aerobic YASMINE Charge (NMIC56) --- SUSCEPTIBILITY -- ORGANISM: O:ESCCOL ANTIBIOTIC INTERPRETATION YASMINE Amikacin S <16 Amoxacillin/K Clavulanate S <8 Ampicillin S <8 Ampicillin/Sulbactam S <4 Aztreonam S <4 Cefazolin S <2 Cefepime S <2 Ceftazidime S <1 Ceftazidime/Avibactam S <4 Ceftolozane/Tazobactam S <2 Ceftriaxone S <1 Cefuroxime S <4 Ciprofloxacin S <0.25 Ertapenem S <0.5 Gentamicin S <2 Levofloxacin S <0.5 Meropenem S <1 Meropenem/Vaborbactam S <2 Nitrofurantoin S <32 Piperacillin/Tazobacta m S <8 Tetracycline S <4 Tigecycline S <2 Tobramycin S <2 Trimethoprim/Sulfameth oxazole S <0.5 S = SUSCEPTIBLE I = INTERMEDIATE R = RESISTANT BLANK = DATA NOT AVAILABLE, OR DRUG NOT ADVISABLE OR TESTED R* = RESISTANCE DUE TO EXTENDED SPECTRUM BETA-LACTAMASES ESBL = EXTENDED SPECTRUM BETA-LACTAMASE TFG = THYMIDINE-DEPENDENT STRAIN JOSE M = BETA-LACTAMASE POSITIVE IB = INDUCIBLE BETA-LACTAMASE. APPEARS IN PLACE OF 'S' WITH SPECIES KNOWN TO POSSESS INDUCIBLE BETA-LACTAMASES. POTENTIALLY THEY MAY BECOME RESISTANT TO ALL B-LACTAM DRUGS. PERFORMED BY: [place] [address] PATHOLOGIST SALES LEDGER ADMINISTRATOR FARA WOOD M.D. Normal [facility] Comment on above: Performed By: #### C UU #### [place] [address] [place] Alanine aminotransferase [En zymatic activity/volume] in Serum or PlasmaOrdered By: Sunny Taylor on 02-28-2025 ALT [Catalytic activity/Vol] 9 U/L Normal 7-52 [facility] Comment on above: Performed By: #### C MP, CBC #### [place] [address] [place] Albumin [Mass/volume] in Ser um or Plasma by Bromocresol green (BCG) dye binding methoOrdered By: Sunny Taylor on 02-28-2025 Albumin BCG dye [Mass/Vol] 3.5 g/dL 3.5-5.7 [facility] Alkaline phosphatase [Enzyma tic activity/volume] in Serum or PlasmaOrdered By: Sunny Taylor on 02-28-2025 ALP [Catalytic activity/Vol] 85 U/L Normal 34-104 [facility] Comment on above: Result Comment: PERF ORMED BY: [place] [address] PATHOLOGIST SALES LEDGER ADMINISTRATOR FARA WOOD M.D. Performed By: #### C MP, CBC #### [address] Aspartate aminotransferase [ Enzymatic activity/volume] in Serum or PlasmaOrdered By: Sunnyvikram Taylor on 02-28-2025 AST [Catalytic activity/Vol] 15 U/L Normal 13-39 [facility] Comment on above: Performed By: #### C MP, CBC #### [address] Basophils [#/volume] in Bloo d by Automated countOrdered By: Sunny Taylor on 02-28-2025 Basophils (Bld) [#/Vol] 0.1 10*3/uL Normal 0.0-0.2 [facility] Comment on above: Result Comment: PERF ORMED BY: [place] [address] PATHOLOGIST SALES LEDGER ADMINISTRATOR FARA WOOD M.D. Performed By: #### C MP, CBC #### [address] Basophils/100 leukocytes in Blood by Automated countOrdered By: Sunny Taylor on 02-28-2025 Basophils/100 WBC (Bld) 0.9 % Normal . [facility] Comment on above: Performed By: #### C MP, CBC #### [address] Bilirubin.total [Mass/volume ] in Serum or PlasmaOrdered By: Sunny Taylor on 02-28-2025 Bilirubin [Mass/Vol] 0.6 mg/dL Normal 0.3-1.0 [facility] Comment on above: Performed By: #### C MP, CBC #### [address] Calcium [Mass/volume] in Ser um or PlasmaOrdered By: Sunny Taylor on 02-28-2025 Calcium [Mass/Vol] 8.7 mg/dL Normal 8.6-10.3 [facility] Comment on above: Performed By: #### C MP, CBC #### [address] Carbon dioxide, total [Moles /volume] in Serum or PlasmaOrdered By: Sunny Brandon on 02-28-2025 CO2 [Moles/Vol] 34.7 mmol/L High 21.0-31.0 [facility] Comment on above: Performed By: #### C MP, CBC #### [address] Chloride [Moles/volume] in S marianna or PlasmaOrdered By: Sunny Taylor on 02-28-2025 Chloride [Moles/Vol] 101 mmol/L Normal 98-107 [facility] Comment on above: Performed By: #### C MP, CBC #### [address] Complete Blood Count Auto Di ffon 02-28-2025 Mean Corpuscular HGB Conc 33.4 g/dL Normal 32.0-35.0 [facility] Comment on above: Performed By: #### C MP, CBC #### [address] NRBC% 0.1 /100{WBC} Normal 0-0.5 [facility] Comment on above: Performed By: #### C MP, CBC #### [address] White Blood Count 5.8 [CFU]/mL Normal 3.8-11.6 [facility] Comment on above: Performed By: #### C MP, CBC #### [address] Comprehensive Metabolic Pane ridge 02-28-2025 Albumin [Mass/Vol] 3.5 g/dL Normal 3.5-5.7 [facility] Comment on above: Performed By: #### C MP, CBC #### [address] GFR/1.73 sq M.predicted MDRD (S/P/Bld) [Vol rate/Area] mL/min/{1.73_m2} Normal [facility] Comment on above: Performed By: #### C MP, CBC #### [address] Creatinine [Mass/volume] in Serum or PlasmaOrdered By: Sunny Taylor on 02-28-2025 Creatinine [Mass/Vol] 0.73 mg/dL Normal 0.60-1.20 [facility] Comment on above: Performed By: #### C MP, CBC #### [place] [address] [place] Eosinophils [#/volume] in Bl ood by Automated countOrdered By: Sunny Taylor on 02-28-2025 Eosinophils (Bld) [#/Vol] 0.4 10*3/uL Normal 0.0-0.45 [facility] Comment on above: Performed By: #### C MP, CBC #### [address] Eosinophils/100 leukocytes i n Blood by Automated countOrdered By: Sunny Taylor on 02-28-2025 Eosinophils/100 WBC (Bld) 6.6 % Normal . [facility] Comment on above: Performed By: #### C MP, CBC #### [address] Erythrocyte distribution wid th [Ratio] by Automated countOrdered By: Sunny Taylor on 02-28-2025 Erythrocyte distribution width (RBC) [Ratio] 13.4 % Normal 11.9-15.3 [facility] Comment on above: Performed By: #### C MP, CBC #### [place] [address] [place] Erythrocytes [#/volume] in B lood by Automated countOrdered By: Sunny Taylor on 02-28-2025 RBC (Bld) [#/Vol] 3.98 10*6/uL Normal 3.60-5.00 [facility] Comment on above: Performed By: #### C MP, CBC #### [place] [address] [place] Glucose [Mass/volume] in Ser um or PlasmaOrdered By: Sunny Taylor on 02-28-2025 Glucose [Mass/Vol] 98 mg/dL Normal 70-100 [facility] Comment on above: ADA recommended refe rence rangeRandom Glucose Reference Range is dependent on time and content of last meal. Glucose of more than 200 mg/dL in a nonstressed, ambulatory subject supports the diagnosis of Diabetes Mellitus. Result Comment: [place] om Glucose Reference Range is dependent on time and content of last meal. Glucose of more than 200 mg/dL in a nonstressed, ambulatory subject supports the diagnosis of Diabetes Mellitus. ADA recommended reference range Performed By: #### C MP, CBC #### [address] Hematocrit [Volume Fraction] of Blood by Automated countOrdered By: Sunny Taylor on 02-28-2025 Hematocrit (Bld) [Volume fraction] 38.6 % Normal 34.0-46.4 [facility] Comment on above: Performed By: #### C MP, CBC #### [address] Hemoglobin [Mass/volume] in BloodOrdered By: Sunny Taylor on 02-28-2025 Hemoglobin (Bld) [Mass/Vol] 12.9 g/dL Normal 11.8-15.4 [facility] Comment on above: Performed By: #### C MP, CBC #### [address] Leukocytes [#/volume] correc kala for nucleated erythrocytes in Blood by Automated counOrdered By: Sunny Taylor on 02-28-2025 WBC corrected for nucl RBC Auto (Bld) [#/Vol] 5.8 10*3/uL 3.8-11.6 [facility] Leukocytes [#/volume] in Blo od by Automated countOrdered By: Sunny Taylor on 02-28-2025 WBC (Bld) [#/Vol] 5.8 10*3/uL Normal 3.8-11.6 [facility] Comment on above: Performed By: #### C MP, CBC #### [place] [address] [place] Lymphocytes [#/volume] in Bl ood by Automated countOrdered By: Sunny Taylor on 02-28-2025 Lymphocytes (Bld) [#/Vol] 2.1 10*3/uL Normal 1.00-4.8 [facility] Comment on above: Performed By: #### C MP, CBC #### [place] [address] [place] Lymphocytes/100 leukocytes i n Blood by Automated countOrdered By: Sunny Brandon on 02-28-2025 Lymphocytes/100 WBC (Bld) 36.6 % Normal . [facility] Comment on above: Performed By: #### C MP, CBC #### [place] [address] [place] MCH [Entitic mass] by Automa kala countOrdered By: Sunny Brandon on 02-28-2025 MCH (RBC) [Entitic mass] 32.5 pg Normal 24.7-34.3 [facility] Comment on above: Performed By: #### C MP, CBC #### [address] MCHC Auto (RBC) [Mass/Vol]Or dered By: Sunny Brandon on 02-28-2025 MCHC (RBC) [Mass/Vol] 33.4 g/dL 32.0-35.0 [facility] MCV [Entitic volume] by Auto mated countOrdered By: Sunny Taylor on 02-28-2025 MCV (RBC) [Entitic vol] 97.1 fL Normal 80-100 F [facility] Comment on above: Performed By: #### C MP, CBC #### [place] [address] [place] Monocytes [#/volume] in Bloo d by Automated countOrdered By: Sunny Taylor on 02-28-2025 Monocytes (Bld) [#/Vol] 0.4 10*3/uL Normal 0.0-0.8 [facility] Comment on above: Performed By: #### C MP, CBC #### [place] [address] [place] Monocytes/100 leukocytes in Blood by Automated countOrdered By: Sunny Taylor on 02-28-2025 Monocytes/100 WBC (Bld) 7.3 % Normal . [facility] Comment on above: Performed By: #### C MP, CBC #### [facility] [address] Neutrophils [#/volume] in Bl ood by Automated countOrdered By: Sunny Clevelandrow on 02-28-2025 Neutrophils (Bld) [#/Vol] 2.8 10*3/uL Normal 1.8-7.7 [facility] Comment on above: Performed By: #### C MP, CBC #### [address] Neutrophils/100 leukocytes i n Blood by Automated countOrdered By: Sunny Clevelandrow on 02-28-2025 Neutrophils/100 WBC (Bld) 48.6 % Normal . [facility] Comment on above: Performed By: #### C MP, CBC #### [address] No Panel InformationOrdered By: Sunny Clevelandrow on 02-28-2025 Estimated GFR (CKD-EPI) > 60.0 mL/Min [facility] Creatinine Clearance (Chem N/A [facility] Nucleated erythrocytes [Pres ence] in Blood by Automated countOrdered By: Sunny Clevelandrow on 02-28-2025 Nucleated RBC Auto Ql (Bld) 0.1 /100{WBC} 0-0.5 [facility] Platelet mean volume [Entiti c volume] in Blood by Automated countOrdered By: Sunny Clevelandrow on 02-28-2025 Platelet mean volume (Bld) [Entitic vol] 8.3 fL Normal 6.3-10.7 [facility] Comment on above: Performed By: #### C MP, CBC #### [facility] [address] [place] [address] [place] Platelets [#/volume] in Bloo d by Automated countOrdered By: Sunny Clevelandrow on 02-28-2025 Platelets (Bld) [#/Vol] 182 10*3/uL Normal 150-450 [facility] Comment on above: Performed By: #### C MP, CBC #### [address] Potassium [Moles/volume] in Serum or PlasmaOrdered By: Sunny Taylor on 02-28-2025 Potassium [Moles/Vol] 4.0 mmol/L Normal 3.5-5.1 [facility] Comment on above: Performed By: #### C MP, CBC #### [address] Protein [Mass/volume] in Ser um or PlasmaOrdered By: Sunny Taylor on 02-28-2025 Protein [Mass/Vol] 7.0 g/dL Normal 6.4-8.9 [facility] Comment on above: Performed By: #### C MP, CBC #### [address] Serum globulin measurement b y calculation (mass/volume)Ordered By: Sunny Taylor on 02-28-2025 Globulin (S) [Mass/Vol] 3.5 g/dL Normal [facility] Comment on above: Performed By: #### C MP, CBC #### [address] Serum or plasma albumin/glob ulin mass ratioOrdered By: Sunny Taylor on 02-28-2025 Albumin/Globulin [Mass ratio] 1.0 {ratio} Normal [facility] Comment on above: Performed By: #### C MP, CBC #### [address] Serum or plasma anion gap de terminationOrdered By: Sunny Taylor on 02-28-2025 Anion gap [Moles/Vol] 9.3 mmol/L Normal 6.0-15.0 [facility] Comment on above: Performed By: #### C MP, CBC #### [address] Sodium [Moles/volume] in Ser um or PlasmaOrdered By: Sunny Taylor on 02-28-2025 Sodium [Moles/Vol] 141 mmol/L Normal 136-145 [facility] Comment on above: Performed By: #### C MP, CBC #### [facility] [address] Urea nitrogen [Mass/volume] in Serum or PlasmaOrdered By: Sunny Taylor on 02-28-2025 Urea nitrogen [Mass/Vol] 13 mg/dL Normal 03-01 [facility] Comment on above: Performed By: #### C MP, CBC #### [facility] [address] C Urineon 07-05-2024 Bacteria identified Cx Nom (U) Microbiology PROCEDURE: Urine Culture [R1] SOURCE: U Random BODY SITE: COLLECTED DATE/TIME: 07/02/2024 16:19 EST RECEIVED DATE/TIME: 07/03/2024 17:26 EST START DATE/TIME: 07/03/2024 17:26 EST FREE TEXT SOURCE: CARON CARVAJAL PA-C, PA-C, JENNIFER E FINAL REPORTS Final Report [] Verified Date/Time: [...] Locations R1: This test was performed at: [facility], [address] [place] [address], [id number] , , [facility] Comment on above: Performed By: #### 2 [id number] #### [facility] [address] [place] [address] Renalon 07-05-2024 US Renal Exam Date/Time: 07/04/2024 [...] MD Transcribed by: SID Technologist: HUMBERTO Schultz [facility] XR Abdomen 1 Viewon 07-05-20 24 [...] SID Technologist: DAVIN Technical Comments Radiation Dose: Kadavid in mGy = na DAP = na Normal [facility] Ambulatory Visit Summaryon 1 09-01-2023 Ambulatory Visit Summary Ambulatory Visit Summary CARIDAD CARIAS I :1940 Visit Date:07/02/2024 Ambulatory Visit Instructions Your Diagnosis Recurrent UTI Your Care Team Attending Physician - CARON CARVAJAL PA-C Primary Care Physician - THAI PATEL This Is Your Medications List [facility] [place] (#####) amlodipine (Norvasc 2.5 mg Tab) [...] CAMACHO, CARON Kwan Where: [facility] [id number]- Medications What How Much When Instructions Unchanged [...] 1 Tablets By Mouth Every day [facility] (#####) 0 30 tab(s), 0 Refill(s) [...] for choosing us for your care. Normal [facility] URINALYSISOrdered By: SYSTEM SYSTEM on 06-29-2024 Bacteria Auto Ql (U) 3+ /HPF Invalid Interpretation Code Trace/HPF [facility] UA Auto SS Clarity (U) Ex.Turbid *ABN* (06/29/24 8:00 AM) Invalid Interpretation Code Clear [facility] UA Auto SS Color (U) Dark-[place] 1 *ABN* (06/29/24 8:00 AM) Invalid Interpretation Code Yellow [facility] UA Auto SS Comment on above: Interpretive Data: M icroscopic readings are only performed on those samples that meet specific criteria set forth by [facility]. Epithelial cells.squamous Auto (Urine sed) [#/Area] 3-4 graded/HPF Invalid Interpretation Code [facility] UA Auto SS Hemoglobin Auto test strip (U) [Mass/Vol] 2+ mg/dL Invalid Interpretation Code Negativemg/ dL [facility] UA Auto SS Leukocyte clumps Auto (Urine sed) [#/Area] >30 graded/HPF Invalid Interpretation Code [facility] UA Auto SS Leukocyte esterase Auto test strip Ql (U) 500 [place]/uL [place]/uL Invalid Interpretation Code NegativeLeu /uL [facility] UA Auto SS Nitrite Auto test strip Ql (U) 2+ mg/dL Invalid Interpretation Code Negativemg/ dL [facility] UA Auto SS pH (U) 6.0 *NA* (06/29/24 8:00 AM) Invalid Interpretation Code 5.0 - 9.0 [facility] UA Auto SS Protein Ql (U) 3+ mg/dL Invalid Interpretation Code Negativemg/ dL [facility] UA Auto SS Specific gravity (U) [Rel density] 1.020 *NA* (06/29/24 8:00 AM) Invalid Interpretation Code 1.005 - 1.030 [facility] UA Auto SS WBC Auto (Urine sed) [#/Area] >75 graded/HPF Invalid Interpretation Code 0-5graded/H PF [facility] UA Auto SS URINALYSISOrdered By: Lalitha shearer on 06-29-2024 UA Spec Desc Clean Catch (06/29/24 8:00 AM) Normal [facility] UA Auto SS Urinalysis with Microon 06-09 Bacteria Auto Ql (U) 3+ /HPF Abnormal Trace [facility] Comment on above: Performed By: #### [id number] #### [facility] [address] [place] [address] Clarity (U) Ex.Turbid Abnormal Clear [facility] Comment on above: Performed By: #### [id number] #### [facility] [address] [place] [address] Color (U) Dark-[place] Abnormal Yellow [facility] Comment on above: Result Comment: Micr oscopic readings are only performed on those samples that meet specific criteria set forth by [facility]. Performed By: #### 4 [id number] #### [facility] [address] [place] [address] Epithelial cells.squamous Auto (Urine sed) [#/Area] 3-4 Invalid Interpretation Code [facility] Comment on above: Performed By: #### 4 [id number] #### [facility] [address] [place] [address] Hemoglobin Auto test strip (U) [Mass/Vol] 2+ mg/dL Abnormal Negative [facility] Comment on above: Performed By: #### 4 [id number] #### [facility] [address] [place] [address] Leukocyte clumps Auto (Urine sed) [#/Area] >30 Abnormal [facility] Comment on above: Performed By: #### 4 [id number] #### [facility] [address] [place] [address] Leukocyte esterase Auto test strip Ql (U) 500 [place]/uL Abnormal Negative [facility] Comment on above: Performed By: #### 4 [id number] #### [facility] [address] [place] [address] Nitrite Auto test strip Ql (U) 2+ mg/dL Abnormal Negative [facility] Comment on above: Performed By: #### 4 [id number] #### [facility] [address] [place] [address] pH (U) 6.0 [pH] Invalid Interpretation Code 5.0-9.0 [facility] Comment on above: Performed By: #### 4 [id number] #### [facility] [address] [place] [address] Protein Ql (U) 3+ mg/dL Abnormal Negative [facility] Comment on above: Performed By: #### 4 [id number] #### [facility] [address] [place] [address] Specific gravity (U) [Rel density] 1.020 Invalid Interpretation Code 1.005-1.030 [facility] Comment on above: Performed By: #### 4 [id number] #### [facility] [address] [place] [address] WBC Auto (Urine sed) [#/Area] >75 Abnormal 0-5 [facility] Comment on above: Performed By: #### 4 [id number] #### [facility] [address] [place] [address] Type of Urine collection method Clean Catch Normal [facility] Comment on above: Performed By: #### 4 [id number] #### [facility] [address] [place] [address] Urinalysis with MicroOrdered By: SYSTEM SYSTEM on 06-29-2024 Bilirubin Ql (U) Negative Normal Negative [facility] Auto SS Comment on above: Performed By: #### 4 [id number] #### [facility] [address] [place] [address] Glucose Ql (U) Negative Normal Negative [facility]A Au to SS Comment on above: Performed By: #### 4 [id number] #### [facility] [address] [place] [address] Ketones Auto test strip Ql (U) Negative Normal Negative [facility] SS Comment on above: Performed By: #### 4 [id number] #### [facility] [address] [place] [address] Mucus Auto Ql (U) Negative Normal Negative [facility] Auto SS Comment on above: Performed By: #### 4 [id number] #### [facility] [address] [place] [address] Urobilinogen (U) [Mass/Vol] Negative Normal Negative [facility] Auto SS Comment on above: Performed By: #### 4 [id number] #### [facility] [address] [place] [address] C Urineon 06-20-2024 Bacteria identified Cx Nom [...] Locations R1: This test was performed at: [facility], [address] [place] [address], [id number] , , Normal [facility] Comment on above: Performed By: #### 2 [id number] #### [facility] [address] [place] [address] UA with Cult Rflxon 06-18-20 24 Bacteria Auto Ql (U) Trace Normal Trace [facility] Comment on above: Performed By: #### 4 [id number] #### [facility] [address] [place] [address] Bilirubin Ql (U) Negative Normal Negative [facility] Comment on above: Performed By: #### 4 [id number] #### [facility] [address] [place] [address] Clarity (U) Clear Normal Clear [facility] Comment on above: Performed By: #### 4 [id number] #### [facility] [address] [place] [address] Color (U) Yellow Normal Yellow [facility] Comment on above: Result Comment: Micr oscopic readings are only performed on those samples that meet specific criteria set forth by [facility]. Performed By: #### 4 [id number] #### [facility] [address] [place] [address] Epithelial cells.squamous Auto (Urine sed) [#/Area] 0-2 Invalid Interpretation Code [facility] Comment on above: Performed By: #### 4 [id number] #### [facility] [address] [place] [address] Glucose Ql (U) Negative Normal Negative [facility] Comment on above: Performed By: #### 4 [id number] #### [facility] [address] [place] [address] Hemoglobin Auto test strip (U) [Mass/Vol] Negative Normal Negative [facility] Comment on above: Performed By: #### 4 [id number] #### [facility] [address] [place] [address] Ketones Auto test strip Ql (U) Negative Normal Negative [facility] Comment on above: Performed By: #### 4 [id number] #### [facility] [address] [place] [address] Leukocyte esterase Auto test strip Ql (U) 25 [place]/uL Normal Negative [facility] Comment on above: Performed By: #### 4 [id number] #### [facility] [address] [place] [address] Mucus Auto Ql (U) Trace Normal Negative [facility] Comment on above: Performed By: #### 4 [id number] #### [facility] [address] [place] [address] Nitrite Auto test strip Ql (U) Negative Normal Negative [facility] Comment on above: Performed By: #### 4 [id number] #### [facility] [address] [place] [address] pH (U) 5.5 [pH] Invalid Interpretation Code 5.0-9.0 [facility] Comment on above: Performed By: #### 4 [id number] #### [facility] [address] [place] [address] Protein Ql (U) Negative Normal Negative [facility] Comment on above: Performed By: #### 4 [id number] #### [facility] [address] [place] [address] RBC Ql (U) 0-3 Normal 0-3 [facility] Comment on above: Performed By: #### 4 [id number] #### [facility] [address] [place] [address] Specific gravity (U) [Rel density] 1.019 Invalid Interpretation Code 1.005-1.030 [facility] Comment on above: Performed By: #### 4 [id number] #### [facility] [address] [place] [address] Urobilinogen (U) [Mass/Vol] Negative Normal Negative [facility] Comment on above: Performed By: #### 4 [id number] #### [facility] [address] [place] [address] WBC Auto (Urine sed) [#/Area] 6-15 Abnormal 0-5 [facility] Comment on above: Performed By: #### 4 [id number] #### [facility] [address] [place] [address] Type of Urine collection method Clean Catch Normal [facility] Comment on above: Performed By: #### 4 [id number] #### [facility] [address] [place] [address] URINALYSISOrdered By: SYSTEM SYSTEM on 06-18-2024 Bacteria [...] that meet specific criteria set forth by [facility]. Epithelial cells.squamous Auto (Urine sed) [...] Urobilinogen (U) [Mass/Vol] Negative Normal Negativemg/ dL [facility] UA Auto SS WBC Auto (Urine sed) [#/Area] 6-15 graded/HPF Invalid Interpretation Code 0-5graded/H PF [facility] UA Auto SS URINALYSISOrdered By: Alesia Henson on 06-18-2024 UA Spec Desc Clean Catch (06/18/24 12:30 AM) Normal [facility] UA Auto SS C Urineon 06-01-2024 Bacteria [...] Locations R1: This test was performed at: [facility], [address] [place] [address], [id number]- , [place], Normal [facility] Comment on above: Performed By: #### 2 [id number] #### [facility] [address] [place] [address] UA with Cult Rflxon 05-30-20 24 Bacteria Auto Ql (U) 4+ /HPF Abnormal Trace Fish [facility] Comment on above: Performed By: #### 4 [id number] #### [facility] [address] [place] [address] Clarity (U) Ex.Turbid Abnormal Clear [facility] Comment on above: Performed By: #### 4 [id number] #### [facility] [address] [place] [address] Color (U) [place] Abnormal Yellow [facility] Comment on above: Result Comment: Micr oscopic readings are only performed on those samples that meet specific criteria set forth by [facility]. Performed By: #### 4 [id number] #### [facility] [address] [place] [address] Epithelial cells.squamous Auto (Urine sed) [#/Area] 0-2 Invalid Interpretation Code [facility] Comment on above: Performed By: #### 4 [id number] #### [facility] [address] [place] [address] Hemoglobin Auto test strip (U) [Mass/Vol] 1+ mg/dL Abnormal Negative [facility] Comment on above: Performed By: #### 4 [id number] #### [facility] [address] [place] [address] Leukocyte clumps Auto (Urine sed) [#/Area] 21-30 Abnormal [facility] Comment on above: Performed By: #### 4 [id number] #### [facility] [address] [place] [address] Leukocyte esterase Auto test strip Ql (U) 500 [place]/uL Abnormal Negative [facility] Comment on above: Performed By: #### 4 [id number] #### [facility] [address] [place] [address] Nitrite Auto test strip Ql (U) 2+ mg/dL Abnormal Negative [facility] Comment on above: Performed By: #### 4 [id number] #### [facility] [address] [place] [address] pH (U) 7.0 [pH] Invalid Interpretation Code 5.0-9.0 [facility] Comment on above: Performed By: #### 4 [id number] #### [facility] [address] [place] [address] Protein Ql (U) 1+ mg/dL Abnormal Negative [facility] Comment on above: Performed By: #### 4 [id number] #### [facility] [address] [place] [address] RBC Ql (U) 31-75 Abnormal 0-3 [facility] Comment on above: Performed By: #### 4 [id number] #### [facility] [address] [place] [address] Specific gravity (U) [Rel density] 1.017 Invalid Interpretation Code 1.005-1.030 [facility] Comment on above: Performed By: #### 4 [id number] #### [facility] [address] [place] [address] WBC Auto (Urine sed) [#/Area] >75 Abnormal 0-5 [facility] Comment on above: Performed By: #### 4 [id number] #### [facility] [address] [place] [address] Type of Urine collection method Clean Catch Normal [facility] Comment on above: Performed By: #### 4 [id number] #### [facility] [address] [place] [address] UA with Cult RflxOrdered By: SYSTEM SYSTEM on 05-30-2024 Bilirubin Ql (U) Negative Normal Negative [facility] Auto SS Comment on above: Performed By: #### 4 [id number] #### [facility] [address] [place] [address] Glucose Ql (U) Negative Normal Negative [facility]A Au to SS Comment on above: Performed By: #### 4 [id number] #### [facility] [address] [place] [address] Ketones Auto test strip Ql (U) Negative Normal Negative [facility]A Auto SS Comment on above: Performed By: #### 4 [id number] #### [facility] [address] [place] [address] Mucus Auto Ql (U) Negative Normal Negative [facility]A Auto SS Comment on above: Performed By: #### 4 [id number] #### [facility] [address] [place] [address] Urobilinogen (U) [Mass/Vol] Negative Normal Negative [facility] Auto SS Comment on above: Performed By: #### 4 [id number] #### [facility] [address] [place] [address] URINALYSISOrdered By: SYSTEM SYSTEM on 05-30-2024 Bacteria Auto Ql (U) 4+ /HPF Invalid Interpretation Code Trace/HPF [facility] UA Auto SS Clarity (U) Ex.Turbid *ABN* (05/30/24 10:00 AM) Invalid Interpretation Code Clear [facility] UA Auto SS Color (U) Light[place] 1 *ABN* (05/30/24 10:00 AM) Invalid Interpretation Code Yellow [facility] UA Auto SS Comment on above: Interpretive Data: M icroscopic readings are only performed on those samples that meet specific criteria set forth by [facility]. Epithelial cells.squamous Auto (Urine sed) [#/Area] 0-2 graded/HPF Invalid Interpretation Code [facility] UA Auto SS Hemoglobin Auto test strip (U) [Mass/Vol] 1+ mg/dL Invalid Interpretation Code Negativemg/ dL [facility] UA Auto SS Leukocyte clumps Auto (Urine sed) [#/Area] 21-30 graded/HPF Invalid Interpretation Code [facility] UA Auto SS Leukocyte esterase Auto test strip Ql (U) 500 [place]/uL [place]/uL Invalid Interpretation Code NegativeLeu /uL [facility] UA Auto SS Nitrite Auto test strip Ql (U) 2+ mg/dL Invalid Interpretation Code Negativemg/ dL [facility] UA Auto SS pH (U) 7.0 *NA* (05/30/24 10:00 AM) Invalid Interpretation Code 5.0 - 9.0 [facility] UA Auto SS Protein Ql (U) 1+ mg/dL Invalid Interpretation Code Negativemg/ dL [facility] UA Auto SS RBC Ql (U) 31-75 graded/HPF Invalid Interpretation Code 0-3graded/H PF [facility] UA Auto SS Specific gravity (U) [Rel density] 1.017 *NA* (05/30/24 10:00 AM) Invalid Interpretation Code 1.005 - 1.030 [facility] UA Auto SS WBC Auto (Urine sed) [#/Area] >75 graded/HPF Invalid Interpretation Code 0-5graded/H PF [facility] UA Auto SS URINALYSISOrdered By: Kristi Stone on 05-30-2024 UA Spec Desc Clean Catch (05/30/24 10:00 AM) Normal [facility] UA Auto SS C Urineon 05-17-2024 Bacteria identified Cx Nom (U) Microbiology PROCEDURE: Urine Culture [R1] SOURCE: U CleanCatch BODY SITE: COLLECTED DATE/TIME: 05/15/2024 08:45 EDT RECEIVED DATE/TIME: 05/15/2024 17:14 EDT START DATE/TIME: 05/15/2024 17:14 EDT FREE TEXT SOURCE: JNUIOR BRYANT, EDMOND PACHECO DO, EDMOND FINAL REPORTS [...] Locations R1: This test was performed at: [facility], [address] [place] [address], [phone]- , , [facility] Comment on above: Performed By: #### 2 [id number] #### [facility] [address] [place] [id number] C Urineon 05-06-2024 Bacteria identified Cx Nom (U) Microbiology PROCEDURE: Urine Culture [R1] SOURCE: Kieran Hansen BODY SITE: COLLECTED DATE/TIME: 05/04/2024 13:10 EDT [...] Locations R1: This test was performed at: [facility], [address] [place] [address], [phone]- , [place], Normal [facility] Comment on above: Performed By: #### 2 [id number] #### [facility] [address] [place] [address] BNPon 03-02-2024 Int Ctr BNP Pass Normal [facility] Comment on above: Performed By: #### 1 [id number] #### [facility] [address] [place] [address] Natriuretic peptide B (Bld) [Mass/Vol] 120 pg/mL High 5-80 [facility] Comment on above: Performed By: #### 1 [id number] #### [facility] [address] [place] [address] CHEMISTRYOrdered By: SYSTEM SYSTEM on 03-02-2024 Albumin [...] 120 pg/mL High 5 - 80 pg/mL [facility] HemeManSS HEMATOLOGYOrdered By: SYSTEM SYSTEM on 03-02-2024 [...] E9/L [facility]/Cl in Noteon 03-02-2024 Heart and Vascular Office/Clinic Note [...] time being (more content not included)... Normal [facility] Comment on above: Result Comment: Elec tronically Signed By: Gera Thomas PA-C\.br\Date and Time Signed: 03/02/24 12:46 EDT\.br\Electronically Co-Signed By: Kiara Coronel\.br\Date and Time Co-Signed: 03/02/24 12:15 EDT Basic Metabolic Panelon 02-05 Anion gap [Moles/Vol] 10 mmol/L Normal 9-15 [facility] Comment on above: Performed By: #### U YASMINE #### [facility] [address] [place] [address] Calcium [Mass/Vol] 8.3 mg/dL Low 8.5-9.9 [facility] Comment on above: Performed By: #### U YASMINE #### [facility] [address] [place] [address] Chloride [Moles/Vol] 102 mmol/L Normal 95-107 [facility] Comment on above: Performed By: #### U YASMINE #### [facility] [address] [place] [address] CO2 [Moles/Vol] 28 mmol/L Normal 20-31 [facility] Comment on above: Performed By: #### U YASMINE #### [facility] [address] [place] [address] Creatinine [Mass/Vol] 0.69 mg/dL Normal 0.50-0.90 [facility] Comment on above: Performed By: #### U YASMINE #### [facility] [address] [place] [address] GFR 86.8 Normal >60 [facility] Comment on above: Result Comment: Pedi atric calculator link https://www.kidney.org/professionals/kdoqi/gfr_calculatorped Effective May 10, [...] Performed By: #### U YASMINE #### [facility] [address] [place] [address] Glucose [Mass/Vol] 72 mg/dL Normal 70-99 [facility] Comment on above: Performed By: #### U YASMINE #### [facility] [address] [place] [address] Potassium [Moles/Vol] 3.8 mmol/L Normal 3.4-4.9 [facility] Comment on above: Performed By: #### U YASMINE #### [facility] [address] [place] [address] Sodium [Moles/Vol] 140 mmol/L Normal 135-144 [facility] Comment on above: Performed By: #### U YASMINE #### [facility] [address] [place] [address] Urea nitrogen [Mass/Vol] 16 mg/dL Normal 8-23 [facility] Comment on above: Performed By: #### U YASMINE #### [facility] [address] [place] [address] proBNPon 02-20-2024 Natriuretic peptide B (Bld) [Mass/Vol] 187 pg/mL Normal [facility] Comment on above: Result Comment: NT-p ro [...] Performed By: #### U YASMINE #### [facility] [address] [place] [address] Basic Metabolic Panelon 07- Anion gap [Moles/Vol] 8 mmol/L Low 9-15 [facility] Comment on above: Performed By: #### M G #### [facility] [address] [place] [address] Calcium [Mass/Vol] 8.1 mg/dL Low 8.5-9.9 [facility] Comment on above: Performed By: #### M G #### [facility] [address] [place] [address] Chloride [Moles/Vol] 101 mmol/L Normal 95-107 [facility] Comment on above: Performed By: #### M G #### [facility] [address] [place] [address] CO2 [Moles/Vol] 27 mmol/L Normal 20-31 [facility] Comment on above: Performed By: #### M G #### [facility] [address] [place] [address] Creatinine [Mass/Vol] 0.61 mg/dL Normal 0.50-0.90 [facility] Comment on above: Performed By: #### M G #### [facility] [address] [place] [address] GFR 89.5 Normal >60 [facility] Comment on above: Result Comment: Pedi atric calculator link https://www.kidney.org/professionals/kdoqi/gfr_calculatorped Effective May 10, [...] Performed By: #### M G #### [facility] [address] [place] [address] Glucose [Mass/Vol] 98 mg/dL Normal 70-99 [facility] Comment on above: Performed By: #### M G #### [facility] [address] [place] [address] Potassium [Moles/Vol] 4.3 mmol/L Normal 3.4-4.9 [facility] Comment on above: Performed By: #### M G #### [facility] [address] [place] [address] Sodium [Moles/Vol] 136 mmol/L Normal 135-144 [facility] Comment on above: Performed By: #### M G #### [facility] [address] [place] [address] Urea nitrogen [Mass/Vol] 15 mg/dL Normal 8-23 [facility] Comment on above: Performed By: #### M G #### [facility] [address] [place] [address] Culture, Urineon 02-01-2024 Culture, Urine ORDER#: [id number] ORDERED BY: YNES LANDA SOURCE: Urine Clean Catch COLLECTED: 02/01/24 09:30 ANTIBIOTICS AT MAX.: RECEIVED : 02/01/24 10:25 Culture, Urine FINAL 02/02/24 16:19 Cult,Urine: NO GROWTH Performed at [facility] [address] [place] [address] ([phone] [facility] Comment on above: Performed By: #### U YASMINE #### [facility] [address] [place] [address] Urinalysis, reflex to micros copicon 02-01-2024 Bilirubin Ql (U) Negative Normal Negative [facility] Comment on above: Performed By: #### U YASMINE #### [facility] [address] [place] [address] Clarity (U) Clear Normal Clear [facility] Comment on above: Performed By: #### U YASMINE #### [facility] [address] [place] [address] Color (U) Yellow Normal Straw/Mccurtain [facility] Comment on above: Performed By: #### U YASMINE #### [facility] [address] [place] [address] Glucose Ql (U) Negative Normal Negative [facility] Comment on above: Performed By: #### U YASMINE #### [facility] [address] [place] [address] Hemoglobin Ql (U) Negative Normal Negative [facility] Comment on above: Performed By: #### U YASMINE #### [facility] [address] [place] [address] Ketones Ql (U) Negative Normal Negative [facility] Comment on above: Performed By: #### U YASMINE #### [facility] [address] [place] [address] Leukocyte esterase Test strip Ql (U) TRACE Abnormal Negative [facility] Comment on above: Performed By: #### U YASMINE #### [facility] [address] [place] [address] Nitrite Ql (U) Negative Normal Negative [facility] Comment on above: Performed By: #### U YASMINE #### [facility] [address] [place] [address] pH (U) 7.0 [pH] Normal 5.0-9.0 [facility] Comment on above: Performed By: #### U YASMINE #### [facility] [address] [place] [address] Protein Ql (U) Negative Normal Negative [facility] Comment on above: Performed By: #### U YASMINE #### [facility] [address] [place] [address] Specific gravity (U) [Rel density] 1.012 Normal 1.005-1.03 [facility] Comment on above: Performed By: #### U YASMNIE #### [facility] [address] [place] [address] Urobilinogen Qn (U) 1.0 {[place]'U}/dL Normal < 2.0 [facility] Comment on above: Performed By: #### U YASMINE #### [facility] [address] [place] [address] Urine Microscopicon 02-01-20 24 Bacteria LM.HPF (Urine sed) [#/Area] Negative Normal Negative [facility] Comment on above: Performed By: #### M G #### [facility] [address] [facility] [place] [id number] Urine Epithelial Cells Auto 3-5 Normal 0-5 [facility] Comment on above: Performed By: #### M G #### [facility] [address] [place] [address] Urine Hyaline Casts Auto 1-3 Normal 0-5 [facility] Comment on above: Performed By: #### M G #### [facility] [address] [place] [address] Urine RBC Auto 0-2 Normal 0-5 [facility] Comment on above: Performed By: #### M G #### [facility] [address] [place] [address] Urine WBC Auto 10-20 Abnormal 0-5 [facility] Comment on above: Performed By: #### M G #### [facility] [address] [place] [address] Bacterial susceptibility hernandez el by MICon 01-12-2024 Bacterial susceptibility panel YASMINE (Isol) ORDER#: [id number] ORDERED BY: AYANA KING SOURCE: Urine Clean Catch COLLECTED: 01/12/24 17:08 ANTIBIOTICS AT MAX.: RECEIVED : 01/12/24 17:08 Culture, Urine FINAL 01/14/24 13:21 Performed at [address] [address] ([phone] Klebsiella pneumoniae 10 to 50,000 CFU/ML K. [...] P. mirabilis S=SUSCEPTIBLE I=INTERMEDIATE R=RESISTANT Normal [facility] Comment on above: Performed By: #### 5 0545-3 #### [facility] [address] [place] [id number] CBC With Platelet and Differ entialon 01-12-2024 Basophils (Bld) [#/Vol] 0.1 10*3/uL Normal 0.0-0.2 [facility] Comment on above: Performed By: #### L IPAS #### [facility] [address] [place] [address] Basophils/100 WBC (Bld) 1.0 % Normal M [facility] Comment on above: Performed By: #### L IPAS #### [facility] [address] [place] [address] Eosinophils (Bld) [#/Vol] 0.6 10*3/uL Normal 0.0-0.7 [facility] Comment on above: Performed By: #### L IPAS #### [facility] [address] [place] [address] Eosinophils/100 WBC (Bld) 10.2 % Normal [facility] Comment on above: Performed By: #### L IPAS #### [facility] [address] [place] [address] Erythrocyte distribution width (RBC) [Ratio] 13.7 % Normal 11.5-14.5 [facility] Comment on above: Performed By: #### L IPAS #### [facility] [address] [place] [address] Hematocrit (Bld) [Volume fraction] 38.8 % Normal 37.0-47.0 [facility] Comment on above: Performed By: #### L IPAS #### [facility] [address] [place] [address] Hemoglobin (Bld) [Mass/Vol] 12.8 g/dL Normal 12.0-16.0 [facility] Comment on above: Performed By: #### L IPAS #### [facility] [address] [place] [address] Lymphocytes (Bld) [#/Vol] 2.3 10*3/uL Normal 1.0-4.8 [facility] Comment on above: Performed By: #### L IPAS #### [facility] [address] [place] [address] Lymphocytes/100 WBC (Bld) 40.1 % Normal [facility] Comment on above: Performed By: #### L IPAS #### [facility] [address] [place] [address] MCH (RBC) [Entitic mass] 32.6 pg Critically high 27.0-31.3 [facility] Comment on above: Performed By: #### L IPAS #### [facility] [address] [place] [address] MCHC 33.0 % Normal 33.0-37.0 [facility] Comment on above: Performed By: #### L IPAS #### [facility] [address] [place] [address] MCV (RBC) [Entitic vol] 98.7 fL Critically high 79.4-[address] [facility] Comment on above: Performed By: #### L IPAS #### [facility] [address] [place] [address] Monocytes (Bld) [#/Vol] 0.5 10*3/uL Normal 0.2-0.8 [facility] Comment on above: Performed By: #### L IPAS #### [facility] [address] [place] [address] Monocytes/100 WBC (Bld) 9.3 % Normal [facility] Comment on above: Performed By: #### L IPAS #### [facility] [address] [place] [address] Neutrophils (Bld) [#/Vol] 2.3 10*3/uL Normal 1.4-6.5 [facility] Comment on above: Performed By: #### L IPAS #### [facility] [address] [place] [address] Neutrophils/100 WBC (Bld) 39.2 % Normal [facility] Comment on above: Performed By: #### L IPAS #### [facility] [address] [place] [address] Platelets (Bld) [#/Vol] 142 10*3/uL Normal 130-400 [facility] Comment on above: Performed By: #### L IPAS #### [facility] [address] [place] [address] RBC (Bld) [#/Vol] 3.93 10*6/uL Low 4.20-5.40 [facility] Comment on above: Performed By: #### L IPAS #### [facility] [address] [place] [address] WBC (Bld) [#/Vol] 5.8 10*3/uL Normal 4.8-10.8 [facility] Comment on above: Performed By: #### L IPAS #### [facility] [address] [place] [address] CT CERVICAL SPINE WO CONTRAS Ton 01-12-2024 [...] Escobedo MD 01/12/[address] [facility] CT HEAD WO CONTRASTon 2023 CT HEAD [...] Ace MD 01/12/[address] [facility] Comprehensive Metabolic Pane ridge 01-12-2024 Albumin [Mass/Vol] 3.2 g/dL Low 3.5-4.6 [facility] Comment on above: Performed By: #### C JESUSN #### [facility] [address] [place] [address] ALP [Catalytic activity/Vol] 105 U/L Normal 40-130 [facility] Comment on above: Performed By: #### C XURN #### [facility] [address] [place] [address] ALT [Catalytic activity/Vol] 19 U/L Normal 0-33 [facility] Comment on above: Performed By: #### C JESUSN #### [facility] [address] [place] [address] Anion gap [Moles/Vol] 7 mmol/L Low 9-15 [facility] Comment on above: Performed By: #### C JENNIFERRJose #### [facility] [address] [place] [address] AST [Catalytic activity/Vol] 33 U/L Normal 0-35 [facility] Comment on above: Performed By: #### C GAYLE #### [facility] [address] [place] [address] Bilirubin [Mass/Vol] 0.6 mg/dL Normal 0.2-0.7 [facility] Comment on above: Performed By: #### C XURJose #### [facility] [address] [place] [address] Calcium [Mass/Vol] 8.3 mg/dL Low 8.5-9.9 [facility] Comment on above: Performed By: #### C JESUSN #### [facility] [address] [place] [address] Chloride [Moles/Vol] 102 mmol/L Normal 95-107 [facility] Comment on above: Performed By: #### C XUDavidN #### [facility] [address] [place] [address] CO2 [Moles/Vol] 28 mmol/L Normal 20-31 [facility] Comment on above: Performed By: #### C XUDavidN #### [facility] [address] [place] [address] Creatinine [Mass/Vol] 0.61 mg/dL Normal 0.50-0.90 [facility] Comment on above: Performed By: #### C XUCARLINE #### [facility] [address] [place] [address] GFR 89.5 Normal >60 [facility] Comment on above: Result Comment: Kristiyunier cristinac calculator link https://www.kidney.org/professionals/kdoqi/gfr_[email or web address] Effective May 10, 2022 [...] renal tubular secretion. Performed By: #### C GAYLE #### [facility] [address] [place] [address] Globulin (S) [Mass/Vol] 4.1 g/dL Critically high 2.3-3.5 [facility] Comment on above: Performed By: #### C GAYLE #### [facility] [address] [place] [address] Glucose [Mass/Vol] 100 mg/dL Critically high 70-99 M [facility] Comment on above: Performed By: #### C GAYLE #### [facility] [address] [place] [address] Potassium [Moles/Vol] 4.7 mmol/L Normal 3.4-4.9 [facility] Comment on above: Performed By: #### C JESUSN #### [facility] [address] [place] [address] Protein [Mass/Vol] 7.3 g/dL Normal 6.3-8.0 [facility] Comment on above: Performed By: #### C JESUSN #### [facility] [address] [place] [address] Sodium [Moles/Vol] 137 mmol/L Normal 135-144 [facility] Comment on above: Performed By: #### C GAYLE #### [facility] [address] [place] [address] Urea nitrogen [Mass/Vol] 12 mg/dL Normal 8-23 [facility] Comment on above: Performed By: #### C JENNIFERRN #### [facility] [address] [place] [address] Culture, Urineon 01-12-2024 Culture, Urine ORDER#: [id number] ORDERED BY: AYANA KING SOURCE: Urine Clean Catch COLLECTED: 01/12/24 17:08 ANTIBIOTICS AT MAX.: RECEIVED : 01/12/24 17:08 Culture, Urine PRELIM 01/13/24 19:35 Cult,Urine: GRAM NEGATIVE RODS Cult,Urine: 10 to 50,000 CFU/ML Performed at [address] [id number] ([phone] [facility] Comment on above: Performed By: #### C JESUSN #### [facility] [address] [place] [address] High Sensitivity Troponin To n 01-12-2024 High Sensitivity Troponin T 11 ng/L Normal 0-19 [facility] Comment on above: Result Comment: High Sensitivity Troponin values cannot be compared with other Troponin methodologies. Performed By: #### T RP5 #### [facility] [address] [place] [address] High Sensitivity Troponin T 8 ng/L Normal 0-19 [facility] Comment on above: Result Comment: High Sensitivity Troponin values cannot be compared with other Troponin methodologies. Performed By: #### T RP5 #### [facility] [address] [place] [address] Lipaseon 01-12-2024 Lipase [Catalytic activity/Vol] 50 U/L Normal 12-95 [facility] Comment on above: Performed By: #### L IPAS #### [facility] [address] [place] [address] Urinalysis, reflex to cultur adri 01-12-2024 Urine Reflexed to Culture Yes Normal [facility] Comment on above: Performed By: #### C XURN #### [facility] [address] [place] [address] Bilirubin Ql (U) Negative Normal Negative [facility] Comment on above: Performed By: #### C XURN #### [facility] [address] [place] [address] Clarity (U) Clear Normal Clear [facility] Comment on above: Performed By: #### C XURN #### [facility] [address] [place] [address] Color (U) Yellow Normal Straw/Mccurtain [facility] Comment on above: Performed By: #### C JENNIFERRN #### [facility] [address] [place] [address] Glucose Ql (U) Negative Normal Negative [facility] Comment on above: Performed By: #### C XURN #### [facility] [address] [place] [address] Hemoglobin Ql (U) MODERATE Abnormal Negative [facility] Comment on above: Performed By: #### C XURN #### [facility] [address] [place] [address] Ketones Ql (U) Negative Normal Negative [facility] Comment on above: Performed By: #### C XURN #### [facility] [address] [place] [address] Leukocyte esterase Test strip Ql (U) MODERATE Abnormal Negative [facility] Comment on above: Performed By: #### C XURN #### [facility] [address] [place] [address] Nitrite Ql (U) Negative Normal Negative [facility] Comment on above: Performed By: #### C XURN #### [facility] [address] [place] [address] pH (U) 7.0 [pH] Normal 5.0-9.0 [facility] Comment on above: Performed By: #### C XUCARLINE #### [facility] [address] [place] [address] Protein Ql (U) Negative Normal Negative [facility] Comment on above: Performed By: #### Sherita ARAUJO #### [facility] [address] [place] [address] Specific gravity (U) [Rel density] 1.008 Normal 1.005-1.03 [facility] Comment on above: Performed By: #### C GAYLE #### [facility] [address] [place] [address] Urobilinogen Qn (U) 1.0 {Cuba'U}/dL Normal < 2.0 [facility] Comment on above: Performed By: #### C GAYLE #### [facility] [address] [place] [address] Urine Microscopicon 01-12-20 24 Urine Bacteria RARE Abnormal Negative [facility] Comment on above: Performed By: #### U YASMINE #### [facility] [address] [place] [address] Urine Yeast Present Abnormal None Seen [facility] Comment on above: Performed By: #### U YASMINE #### [facility] [address] [place] [address] Urine Epithelial Cells Auto 0-2 Normal 0-5 [facility] Comment on above: Performed By: #### U YASMINE #### [facility] [address] [place] [address] Urine Hyaline Casts Auto 0-1 Normal 0-5 [facility] Comment on above: Performed By: #### U YASMINE #### [facility] [address] [place] [address] Urine RBC Auto 50-100 Abnormal 0-5 [facility] Comment on above: Performed By: #### U YASMINE #### [facility] [address] [place] [address] Urine WBC Auto 50-100 Abnormal 0-5 [facility] Comment on above: Performed By: #### U YASMINE #### [facility] [address] [place] [id number] XR CHEST PORTABLEon 01-12-20 XR CHEST PORTABLE [...] Dozier MD 01/12/[address] [facility] XR ELBOW RIGHT (MIN 3 VIEWS) on [...] Dozier MD 01/12/[address] [facility] CT CERVICAL SPINE WO CONTRAS Ton 12-21-2023 [...] Hernandez MD 12/21/[address] [facility] CT HEAD WO CONTRASTon 2023 CT HEAD [...] Hernandez MD 12/21/[address] [facility] Bacterial susceptibility hernandez el by MICon 12-16-2023 Bacterial susceptibility panel YASMINE (Isol) ORDER#: [id number] ORDERED BY: YNES LANDA SOURCE: Urine Clean Catch COLLECTED: 12/16/23 12:30 ANTIBIOTICS AT MAX.: RECEIVED : 12/16/23 13:50 Culture, Urine FINAL 12/18/23 12:22 Performed at [address] [place] [id number] Escherichia coli >100,000 CFU/ML E. coli ANTIBIOTICS [...] P. mirabilis S=SUSCEPTIBLE I=INTERMEDIATE R=RESISTANT Normal [facility] Comment on above: Performed By: #### U YASMINE #### [facility] [address] [place] [address] Basic Metabolic Panelon 05- Anion gap [Moles/Vol] 9 mmol/L Normal 9-15 [facility] Comment on above: Performed By: #### B MP #### [facility] [address] [place] [address] Calcium [Mass/Vol] 8.7 mg/dL Normal 8.5-9.9 [facility] Comment on above: Performed By: #### B MP #### [facility] [address] [place] [address] Chloride [Moles/Vol] 99 mmol/L Normal 95-107 [facility] Comment on above: Performed By: #### B MP #### [facility] [address] [place] [address] CO2 [Moles/Vol] 26 mmol/L Normal 20-31 [facility] Comment on above: Performed By: #### B MP #### [facility] [address] [place] [address] Creatinine [Mass/Vol] 0.59 mg/dL Normal 0.50-0.90 [facility] Comment on above: Performed By: #### B MP #### [facility] [address] [place] [address] GFR >90.0 Normal >60 [facility] Comment on above: Result Comment: Noreen atric [...] Performed By: #### B MP #### [facility] [address] [place] [address] Glucose [Mass/Vol] 125 mg/dL Critically high 70-99 M [facility] Comment on above: Performed By: #### B MP #### [facility] [address] [place] [address] Potassium [Moles/Vol] 4.2 mmol/L Normal 3.4-4.9 [facility] Comment on above: Performed By: #### B MP #### [facility] [address] [place] [address] Sodium [Moles/Vol] 134 mmol/L Low 135-144 [facility] Comment on above: Performed By: #### B MP #### [facility] [address] [place] [address] Urea nitrogen [Mass/Vol] 11 mg/dL Normal 8-23 [facility] Comment on above: Performed By: #### B MP #### [facility] [address] [place] [address] Culture, Urineon 12-16-2023 Culture, Urine ORDER#: [id number] ORDERED BY: YNES LANDA SOURCE: Urine Clean Catch COLLECTED: 12/16/23 12:30 ANTIBIOTICS AT MAX.: RECEIVED : 12/16/23 13:50 Culture, Urine PRELIM 12/17/23 19:00 Performed at [facility] [address] [place] [id number] ([phone] Escherichia coli >100,000 CFU/ML Normal [facility] Comment on above: Performed By: #### U YASMINE #### [facility] [address] [place] [address] Urinalysis, reflex to micros copicon 12-16-2023 Bilirubin Ql (U) Negative Normal Negative [facility] Comment on above: Performed By: #### M G #### [facility] [address] [place] [address] Clarity (U) Clear Normal Clear [facility] Comment on above: Performed By: #### M G #### [facility] [address] [place] [address] Color (U) Yellow Normal Straw/Mccurtain [facility] Comment on above: Performed By: #### M G #### [facility] [address] [place] [address] Glucose Ql (U) Negative Normal Negative [facility] Comment on above: Performed By: #### M G #### [facility] [address] [place] [address] Hemoglobin Ql (U) Negative Normal Negative [facility] Comment on above: Performed By: #### M G #### [facility] [address] [place] [address] Ketones Ql (U) Negative Normal Negative [facility] Comment on above: Performed By: #### M G #### [facility] [address] [place] [address] Leukocyte esterase Test strip Ql (U) MODERATE Abnormal Negative [facility] Comment on above: Performed By: #### M G #### [facility] [address] [place] [address] Nitrite Ql (U) Negative Normal Negative [facility] Comment on above: Performed By: #### M G #### [facility] [address] [place] [address] pH (U) 7.0 [pH] Normal 5.0-9.0 [facility] Comment on above: Performed By: #### M G #### [facility] [address] [place] [address] Protein Ql (U) Negative Normal Negative [facility] Comment on above: Performed By: #### M G #### [facility] [address] [place] [address] Specific gravity (U) [Rel density] 1.014 Normal 1.005-1.03 [facility] Comment on above: Performed By: #### M G #### [facility] [address] [place] [address] Urobilinogen Qn (U) 1.0 {Cuba'U}/dL Normal < 2.0 [facility] Comment on above: Performed By: #### M G #### [facility] [address] [place] [address] Urine Microscopicon 05-20 24 Urine Bacteria FEW Abnormal Negative [facility] Comment on above: Performed By: #### U YASMINE #### [facility] [address] [place] [address] Urine Epithelial Cells Auto 0-2 Normal 0-5 [facility] Comment on above: Performed By: #### U YASMINE #### [facility] [address] [place] [address] Urine Hyaline Casts Auto 1-3 Normal 0-5 [facility] Comment on above: Performed By: #### U YASMINE #### [facility] [address] [place] [address] Urine RBC Auto 6-10 Abnormal 0-5 [facility] Comment on above: Performed By: #### U YASMINE #### [facility] [address] [place] [address] Urine WBC Auto >100 Critically high 0-5 [facility] Comment on above: Performed By: #### U YASMINE #### [facility] [address] [place] [address] CBC With Platelet No Differe ntialon 12-02-2023 Erythrocyte distribution width (RBC) [Ratio] 13.6 % Normal 11.5-14.5 [facility] Comment on above: Performed By: #### C BCND #### [facility] [address] [place] [address] Hematocrit (Bld) [Volume fraction] 38.3 % Normal 37.0-47.0 [facility] Comment on above: Performed By: #### C BCND #### [facility] [address] [place] [address] Hemoglobin (Bld) [Mass/Vol] 12.7 g/dL Normal 12.0-16.0 [facility] Comment on above: Performed By: #### C BCND #### [facility] [address] [place] [address] MCH (RBC) [Entitic mass] 32.1 pg Critically high 27.0-31.3 [facility] Comment on above: Performed By: #### C BCND #### [facility] [address] [place] [address] MCHC 33.2 % Normal 33.0-37.0 [facility] Comment on above: Performed By: #### C BCND #### [facility] [address] [place] [address] MCV (RBC) [Entitic vol] 96.7 fL Critically high 79.4-[address] [facility] Comment on above: Performed By: #### C BCND #### [facility] [address] [place] [address] Platelets (Bld) [#/Vol] 149 10*3/uL Normal 130-400 [facility] Comment on above: Performed By: #### C BCND #### [facility] [address] [place] [address] RBC (Bld) [#/Vol] 3.96 10*6/uL Low 4.20-5.40 [facility] Comment on above: Performed By: #### C BCND #### [facility] [address] [place] [address] WBC (Bld) [#/Vol] 5.2 10*3/uL Normal 4.8-10.8 [facility] Comment on above: Performed By: #### C BCND #### [facility] [address] [place] [address] Culture, Urineon 11-28-2023 Culture, Urine ORDER#: [id number] ORDERED BY: YNES LANDA SOURCE: Urine Clean Catch COLLECTED: 11/28/23 14:19 ANTIBIOTICS AT MAX.: RECEIVED : 11/28/23 16:28 Culture, Urine FINAL 11/29/23 18:57 Cult,Urine: NO SIGNIFICANT GROWTH Performed at [address] [facility] Comment on above: Performed By: #### C XURN #### [facility] [address] [place] [address] Urinalysis, reflex to micros copicon 11-28-2023 Bilirubin Ql (U) Negative Normal Negative [facility] Comment on above: Performed By: #### U YASMINE #### [facility] [address] [place] [address] Clarity (U) Clear Normal Clear [facility] Comment on above: Performed By: #### U YASMINE #### [facility] [address] [place] [address] Color (U) Yellow Normal Straw/Mccurtain [facility] Comment on above: Performed By: #### U YASMINE #### [facility] [address] [place] [address] Glucose Ql (U) Negative Normal Negative [facility] Comment on above: Performed By: #### U YASMINE #### [facility] [address] [place] [address] Hemoglobin Ql (U) Negative Normal Negative [facility] Comment on above: Performed By: #### U YASMINE #### [facility] [address] [place] [address] Ketones Ql (U) Negative Normal Negative [facility] Comment on above: Performed By: #### U YASMINE #### [facility] [address] [place] [address] Leukocyte esterase Test strip Ql (U) Negative Normal Negative [facility] Comment on above: Performed By: #### U YASMINE #### [facility] [address] [place] [address] Nitrite Ql (U) Negative Normal Negative [facility] Comment on above: Performed By: #### U YASMINE #### [facility] [address] [place] [address] pH (U) 7.0 [pH] Normal 5.0-9.0 [facility] Comment on above: Performed By: #### U YASMINE #### [facility] [address] [place] [address] Protein Ql (U) Negative Normal Negative [facility] Comment on above: Performed By: #### U YASMINE #### [facility] [address] [place] [id number] Specific gravity (U) [Rel density] 1.007 Normal 1.005-1.03 [facility] Comment on above: Performed By: #### U YASMINE #### [facility] [address] [place] [address] Urobilinogen Qn (U) 1.0 {Cuba'U}/dL Normal < 2.0 [facility] Comment on above: Performed By: #### U YASMINE #### [facility] [address] [place] [address] Alanine aminotransferase [En zymatic activity/volume] in Serum or PlasmaOrdered By: Carline Jackson on 11-23-2023 ALT [Catalytic activity/Vol] 20 U/L 7-52 [facility] Albumin [Mass/volume] in Ser um or Plasma by Bromocresol green (BCG) dye binding methoOrdered By: Carline Jackson on 11-23-2023 Albumin BCG dye [Mass/Vol] 3.2 g/dL 3.5-5.7 [facility] Alkaline phosphatase [Enzyma tic activity/volume] in Serum or PlasmaOrdered By: Carline Jackson on 11-23-2023 ALP [Catalytic activity/Vol] 75 U/L 34-104 [facility] Aspartate aminotransferase [ Enzymatic activity/volume] in Serum or PlasmaOrdered By: Carline Jackson on 11-23-2023 AST [Catalytic activity/Vol] 40 U/L 13-39 [facility] Basophils Auto (Bld) [#/Vol] Ordered By: Carline Jackson on 11-23-2023 Basophils (Bld) [#/Vol] 0.1 10*3/uL 0.0-0.2 [facility] Basophils/100 WBC Auto (Bld) Ordered By: Carline Jackson on 11-23-2023 Basophils/100 WBC (Bld) 1.1 % . F [facility] Bilirubin.total [Mass/volume ] in Serum or PlasmaOrdered By: Carline Jackson on 11-23-2023 Bilirubin [Mass/Vol] 0.9 mg/dL 0.3-1.0 [facility] Calcium [Mass/volume] in Ser um or PlasmaOrdered By: Carline Jackson on 11-23-2023 Calcium [Mass/Vol] 8.7 mg/dL 8.6-10.3 [facility] Carbon dioxide, total [Moles /volume] in Serum or PlasmaOrdered By: Carline Jackson on 11-23-2023 CO2 [Moles/Vol] 27.2 mmol/L 21.0-31.0 [facility] Chloride [Moles/volume] in S marianna or PlasmaOrdered By: Carline Jackson on 11-23-2023 Chloride [Moles/Vol] 104 mmol/L 98-107 [facility] Creatinine [Mass/volume] in Serum or PlasmaOrdered By: Carline Jackson on 11-23-2023 Creatinine [Mass/Vol] 0.79 mg/dL 0.60-1.20 [facility] Eosinophils Auto (Bld) [#/Vo l]Ordered By: Carline Jackson on 11-23-2023 Eosinophils (Bld) [#/Vol] 0.5 10*3/uL 0.0-0.45 [facility] Eosinophils/100 WBC Auto (Bl d)Ordered By: Carline Jackson on 11-23-2023 Eosinophils/100 WBC (Bld) 9.7 % . [facility] Erythrocyte distribution wid th Auto (RBC) [Ratio]Ordered By: Carline Jackson on 11-23-2023 Erythrocyte distribution width (RBC) [Ratio] 13.9 % 11.9-15.3 [facility] Erythrocyte sedimentation ra te by Photometric methodOrdered By: Carline Jackson on 11-23-2023 ESR Photometric method (Bld) [Velocity] 30 mm/hr 0-29 [facility] Globulin Calc (S) [Mass/Vol] Ordered By: Carline Jackson on 11-23-2023 Globulin (S) [Mass/Vol] 4.1 g/dL F [facility] Glucose [Mass/volume] in Ser um or PlasmaOrdered By: Carline Jackson on 11-23-2023 Glucose [Mass/Vol] 94 mg/dL 70-100 [facility] Comment on above: ADA recommended refe rence rangeRandom Glucose Reference Range is dependent on time and content of last meal. Glucose of more than 200 mg/dL in a nonstressed, ambulatory subject supports the diagnosis of Diabetes Mellitus. Hematocrit Auto (Bld) [Volum e fraction]Ordered By: Carline Jackson on 11-23-2023 Hematocrit (Bld) [Volume fraction] 37.4 % 34.0-46.4 [facility] Hemoglobin [Mass/volume] in BloodOrdered By: Carline Jackson on 11-23-2023 Hemoglobin (Bld) [Mass/Vol] 12.6 g/dL 11.8-15.4 [facility] Leukocytes [#/volume] correc kala for nucleated erythrocytes in Blood by Automated counOrdered By: Carline Jackson on 11-23-2023 WBC corrected for nucl RBC Auto (Bld) [#/Vol] 5.3 10*3/uL 3.8-11.6 [facility] Lymphocytes Auto (Bld) [#/Vo l]Ordered By: Carline Jackson on 11-23-2023 Lymphocytes (Bld) [#/Vol] 2.4 10*3/uL 1.00-4.8 [facility] Lymphocytes/100 WBC Auto (Bl d)Ordered By: Carline Jackson on 11-23-2023 Lymphocytes/100 WBC (Bld) 45.9 % . [facility] MCH Auto (RBC) [Entitic mass ]Ordered By: Carline Jackson on 11-23-2023 MCH (RBC) [Entitic mass] 32.6 pg 24.7-34.3 [facility] MCHC Auto (RBC) [Mass/Vol]Or dered By: Carline Jackson on 11-23-2023 MCHC (RBC) [Mass/Vol] 33.8 g/dL 32.0-35.0 [facility] MCV Auto (RBC) [Entitic vol] Ordered By: Carline Jackson on 11-23-2023 MCV (RBC) [Entitic vol] 96.4 fL 80-100 [facility] Monocytes Auto (Bld) [#/Vol] Ordered By: Carline Jackson on 11-23-2023 Monocytes (Bld) [#/Vol] 0.5 10*3/uL 0.0-0.8 [facility] Monocytes/100 WBC Auto (Bld) Ordered By: Carline Jackson on 11-23-2023 Monocytes/100 WBC (Bld) 9.1 % . F [facility] Neutrophils Auto (Bld) [#/Vo l]Ordered By: Carline Jackson on 11-23-2023 Neutrophils (Bld) [#/Vol] 1.8 10*3/uL 1.8-7.7 [facility] Neutrophils/100 WBC Auto (Bl d)Ordered By: Carline Jackson on 11-23-2023 Neutrophils/100 WBC (Bld) 34.2 % . [facility] No Panel InformationOrdered By: Carline Jackson on 11-23-2023 Estimated GFR (CKD-EPI) > 60.0 mL/Min [facility] Creatinine Clearance (Chem N/A [facility] Nucleated erythrocytes [Pres ence] in Blood by Automated countOrdered By: Carline Jackson on 11-23-2023 Nucleated RBC Auto Ql (Bld) 0.2 /100{WBC} 0-0.5 [facility] Platelet mean volume Auto (B ld) [Entitic vol]Ordered By: Carline Jackson on 11-23-2023 Platelet mean volume (Bld) [Entitic vol] 8.6 fL 6.3-10.7 [facility] Platelets Auto (Bld) [#/Vol] Ordered By: Carline Jackson on 11-23-2023 Platelets (Bld) [#/Vol] 165 10*3/uL 150-450 [facility] Potassium [Moles/volume] in Serum or PlasmaOrdered By: Carline Jackson on 11-23-2023 Potassium [Moles/Vol] 4.4 mmol/L 3.5-5.1 [facility] Protein [Mass/volume] in Ser um or PlasmaOrdered By: Carline Jackson on 11-23-2023 Protein [Mass/Vol] 7.3 g/dL 6.4-8.9 [facility] RBC Auto (Bld) [#/Vol]Ordere d By: Carline Jackson on 11-23-2023 RBC (Bld) [#/Vol] 3.87 10*6/uL 3.60-5.00 [facility] Serum or plasma albumin/glob ulin mass ratioOrdered By: Carline Jackson on 11-23-2023 Albumin/Globulin [Mass ratio] 0.8 {ratio} [facility] Serum or plasma anion gap de terminationOrdered By: Carline Jackson on 11-23-2023 Anion gap [Moles/Vol] 7.2 mmol/L 6.0-15.0 [facility] Sodium [Moles/volume] in Ser um or PlasmaOrdered By: Carline Jackson on 11-23-2023 Sodium [Moles/Vol] 134 mmol/L 136-145 [facility] Urea nitrogen [Mass/volume] in Serum or PlasmaOrdered By: Carline Jackson on 11-23-2023 Urea nitrogen [Mass/Vol] 16 mg/dL 7-25 [facility] WBC Auto (Bld) [#/Vol]Ordere d By: Carline Jackson on 11-23-2023 WBC (Bld) [#/Vol] 5.3 10*3/uL 3.8-11.6 [facility] Urinalysis, reflex to micros copicon 11-07-2023 Bilirubin Ql (U) Negative Normal Negative [facility] Comment on above: Performed By: #### U A #### [facility] [address] [place] [address] Clarity (U) CLOUDY Abnormal Clear [facility] Comment on above: Performed By: #### U A #### [facility] [address] [place] [address] Color (U) Yellow Normal Straw/Mccurtain [facility] Comment on above: Performed By: #### U A #### [facility] [address] [place] [address] Glucose Ql (U) Negative Normal Negative [facility] Comment on above: Performed By: #### U A #### [facility] [address] [place] [address] Hemoglobin Ql (U) TRACE Abnormal Negative [facility] Comment on above: Performed By: #### U A #### [facility] [address] [place] [address] Ketones Ql (U) Negative Normal Negative [facility] Comment on above: Performed By: #### U A #### [facility] [address] [place] [address] Leukocyte esterase Test strip Ql (U) LARGE Abnormal Negative [facility] Comment on above: Performed By: #### U A #### [facility] [address] [place] [address] Nitrite Ql (U) Positive Abnormal Negative [facility] Comment on above: Performed By: #### U A #### [facility] [address] [place] [address] pH (U) 7.5 [pH] Normal 5.0-9.0 [facility] Comment on above: Performed By: #### U A #### [facility] [address] [place] [address] Protein Ql (U) TRACE Abnormal Negative [facility] Comment on above: Performed By: #### U A #### [facility] [address] [place] [id number] Specific gravity (U) [Rel density] 1.014 Normal 1.005-1.03 [facility] Comment on above: Performed By: #### U A #### [facility] [address] [place] [id number] Urobilinogen Qn (U) 4.0 {Cuba'U}/dL Abnormal < 2.0 [facility] Comment on above: Performed By: #### U A #### [facility] [address] [place] [id number] Urine Microscopicon 11-07-19 24 Epithelial cells LM Ql (Urine sed) 0-[address] [facility] Comment on above: Performed By: #### U YASMINE #### [facility] [address] [facility] [place] [address] Urine Bacteria MODERATE Abnormal Negative [facility] Comment on above: Performed By: #### U YASMINE #### [facility] [address] [facility] [place] [address] Urine RBC 0-2 Normal 0-2 [facility] Comment on above: Performed By: #### U YASMINE #### [facility] [address] [facility] [place] [address] WBC (U) [#/Vol] /uL Abnormal 0-5 [facility] Comment on above: Performed By: #### U YASMINE #### [facility] [address] [facility] [place] [address] Bacterial susceptibility hernandez el YASMINE (Isol)on 11-06-2023 Bacterial susceptibility panel Disk diffusion (KB) (Isol) ORDER#: [id number] ORDERED BY: YNES LANDA SOURCE: Urine Voided COLLECTED: 11/06/23 06:00 ANTIBIOTICS AT MAX.: RECEIVED : 11/07/23 07:50 Culture, Urine FINAL 11/09/23 08:13 Performed at [facility] [address] [place] [id number] ([phone] Enterobacter cloacae complex >100,000 CFU/ML E. cloacae complex ANTIBIOTICS YASMINE Interp KB ZoneKB Interp Ceftriaxone S Gentamicin <=1 S Levofloxacin <=0.12 S Nitrofurantoin 64 I Piperacillin/Tazobacta m <=4 S Trimethoprim/Sulfameth oxazole <=20 S S=SUSCEPTIBLE I=INTERMEDIATE R=RESISTANT Normal [facility] Comment on above: Performed By: #### 5 0545-3 #### [facility] [address] [place] [id number] Bacterial susceptibility hernandez el by Kedar 11-06-2023 Bacterial susceptibility panel YASMINE (Isol) ORDER#: [id number] ORDERED BY: YNES LANDA SOURCE: Urine Voided COLLECTED: 11/06/23 06:00 ANTIBIOTICS AT MAX.: RECEIVED : 11/07/23 07:50 Culture, Urine PRELIM 11/08/23 23:23 Performed at [place] [address] [place], [place] [id number] ([phone] Enterobacter cloacae complex >100,000 CFU/ML E. cloacae complex ANTIBIOTICS YASMINE Interp Gentamicin <=1 S Levofloxacin <=0.12 S Nitrofurantoin 64 I Piperacillin/Tazobacta m <=4 S Trimethoprim/Sulfameth oxazole <=20 S S=SUSCEPTIBLE I=INTERMEDIATE R=RESISTANT Normal [facility] Comment on above: Performed By: #### 5 0545-3 #### [facility] [address] [place] [id number] Culture, Urineon 11-06-2023 Culture, Urine ORDER#: [id number] ORDERED BY: YNES LANDA SOURCE: Urine Voided COLLECTED: 11/06/23 06:00 ANTIBIOTICS AT MAX.: RECEIVED : 11/07/23 07:50 Culture, Urine PRELIM 11/08/23 10:00 Performed at [address] [id number] ([phone] Enterobacter cloacae complex >100,000 CFU/ML Normal [facility] Comment on above: Performed By: #### U YASMINE #### [facility] [address] [facility] [address] Alcoholon 10-21-2023 Blood Alcohol Concentration Not indicated Normal [facility] Comment on above: Performed By: #### C XURN #### [facility] [address] [facility] [address] Ethanol [Mass/Vol] mg/dL Normal [facility] Comment on above: Performed By: #### C XURN #### [facility] [address] [facility] [address] Bacterial susceptibility hernandez el by MICon 10-21-2023 Bacterial susceptibility panel YASMINE (Isol) ORDER#: [id number] ORDERED BY: AYANA KING SOURCE: Urine Clean Catch COLLECTED: 10/21/23 18:35 ANTIBIOTICS AT MAX.: RECEIVED : 10/21/23 18:35 Culture, Urine FINAL 10/23/23 20:41 Performed at [address] [id number] ([phone] Escherichia coli >100,000 CFU/ML E. coli ANTIBIOTICS [...] P. mirabilis S=SUSCEPTIBLE I=INTERMEDIATE R=RESISTANT Normal [facility] Comment on above: Performed By: #### Sherita ARAUJO #### [facility] [address] [place] [facility] CBC With Platelet and Differ entialon 10-21-2023 Basophils (Bld) [#/Vol] 0.1 10*3/uL Normal 0.0-0.2 [facility] Comment on above: Performed By: #### Sherita ARAUJO #### [facility] [address] [facility] Basophils/100 WBC (Bld) 1.1 % Normal M [facility] Comment on above: Performed By: #### Sherita ARAUJO #### [facility] [address] [facility] Eosinophils (Bld) [#/Vol] 0.6 10*3/uL Normal 0.0-0.7 [facility] Comment on above: Performed By: #### Sherita ARAUJO #### [facility] [address] [place] [address] Eosinophils/100 WBC (Bld) 9.0 % Normal [facility] Comment on above: Performed By: #### Sherita ARAUJO #### [facility] [address] [place] [address] Erythrocyte distribution width (RBC) [Ratio] 13.5 % Normal 11.5-14.5 [facility] Comment on above: Performed By: #### C GAYLE #### [facility] [address] [place] [address] Hematocrit (Bld) [Volume fraction] 42.3 % Normal 37.0-47.0 [facility] Comment on above: Performed By: #### Sherita ARAUJO #### [facility] [address] [place] [address] Hemoglobin (Bld) [Mass/Vol] 13.7 g/dL Normal 12.0-16.0 [facility] Comment on above: Performed By: #### Sherita ARAUJO #### [facility] [address] [place] [address] Lymphocytes (Bld) [#/Vol] 2.9 10*3/uL Normal 1.0-4.8 [facility] Comment on above: Performed By: #### Sherita ARAUJO #### [facility] [address] [place] [address] Lymphocytes/100 WBC (Bld) 44.8 % Normal [facility] Comment on above: Performed By: #### C GAYLE #### [facility] [address] [place] [address] MCH (RBC) [Entitic mass] 32.2 pg Critically high 27.0-31.3 [facility] Comment on above: Performed By: #### Sherita ARAUJO #### [facility] [address] [place] [address] MCHC 32.4 % Low 33.0-37.0 [facility] Comment on above: Performed By: #### Sherita ARAUJO #### [facility] [address] [place] [address] MCV (RBC) [Entitic vol] 99.3 fL Critically high 79.4-[address] [facility] Comment on above: Performed By: #### Sherita ARAUJO #### [facility] [address] [place] [address] Monocytes (Bld) [#/Vol] 0.7 10*3/uL Normal 0.2-0.8 [facility] Comment on above: Performed By: #### Sherita ARAUJO #### [facility] [address] [place] [address] Monocytes/100 WBC (Bld) 10.9 % Normal [facility] Comment on above: Performed By: #### Sherita ARAUJO #### [facility] [address] [place] [address] Neutrophils (Bld) [#/Vol] 2.2 10*3/uL Normal 1.4-6.5 [facility] Comment on above: Performed By: #### Sherita ARAUJO #### [facility] [address] [place] [address] Neutrophils/100 WBC (Bld) 33.9 % Normal [facility] Comment on above: Performed By: #### Sherita ARAUJO #### [facility] [address] [place] [address] Platelets (Bld) [#/Vol] 147 10*3/uL Normal 130-400 [facility] Comment on above: Performed By: #### Sherita ARAUJO #### [facility] [address] [place] [address] RBC (Bld) [#/Vol] 4.26 10*6/uL Normal 4.20-5.40 [facility] Comment on above: Performed By: #### Sherita RODRIGUEZRN #### [facility] [address] [place] [id number] WBC (Bld) [#/Vol] 6.5 10*3/uL Normal 4.8-10.8 [facility] Comment on above: Performed By: #### C XURN #### [facility] [address] [place] [id number] COVID-19on 10-21-2023 SARS-CoV-2 (COVID-19) RNA MARCY+probe Ql (Unsp spec) Not detected Normal Not Detect [facility] Comment on above: Result Comment: Cynthia hernandez [...] authorized laboratories. Fact sheet for Healthcare Providers: https://www.fda.gov/media/334753/download Fact sheet for Patients: https://www.fda.gov/media/952064/download METHODOLOGY: Isothermal Nucleic Acid Amplification Performed By: #### C OVRG #### [facility] [address] [place] [id number] CT CERVICAL SPINE WO CONTRAS Ton 10-21-2023 [...] Cervantes MD 10/21/[address] [facility] CT HEAD WO CONTRASTon 2023 CT HEAD [...] Stafford MD 10/21/[address] [facility] Comprehensive Metabolic Pane ridge 10-21-2023 Albumin [Mass/Vol] 3.5 g/dL Normal 3.5-4.6 [facility] Comment on above: Performed By: #### C MP #### [facility] [address] [place] [address] ALP [Catalytic activity/Vol] 102 U/L Normal 40-130 [facility] Comment on above: Performed By: #### C MP #### [facility] [address] [place] [address] ALT [Catalytic activity/Vol] 21 U/L Normal 0-33 [facility] Comment on above: Performed By: #### C MP #### [facility] [address] [place] [address] Anion gap [Moles/Vol] 8 mmol/L Low 9-15 [facility] Comment on above: Performed By: #### C MP #### [facility] [address] [place] [address] AST [Catalytic activity/Vol] 40 U/L Critically high 0-35 [facility] Comment on above: Performed By: #### C MP #### [facility] [address] [place] [address] Bilirubin [Mass/Vol] 0.6 mg/dL Normal 0.2-0.7 [facility] Comment on above: Performed By: #### C MP #### [facility] [address] [place] [address] Calcium [Mass/Vol] 8.7 mg/dL Normal 8.5-9.9 [facility] Comment on above: Performed By: #### C MP #### [facility] [address] [place] [address] Chloride [Moles/Vol] 101 mmol/L Normal 95-107 [facility] Comment on above: Performed By: #### C MP #### [facility] [address] [place] [address] CO2 [Moles/Vol] 25 mmol/L Normal 20-31 [facility] Comment on above: Performed By: #### C MP #### [facility] [address] [place] [address] Creatinine [Mass/Vol] 0.64 mg/dL Normal 0.50-0.90 [facility] Comment on above: Performed By: #### C MP #### [facility] [address] [place] [address] GFR >60.0 Normal >60 [facility] Comment on above: Result Comment: Noreen atric [...] Performed By: #### C MP #### [facility] [address] [place] [address] Globulin (S) [Mass/Vol] 4.3 g/dL Critically high 2.3-3.5 [facility] Comment on above: Performed By: #### C MP #### [facility] [address] [place] [address] Glucose [Mass/Vol] 102 mg/dL Critically high 70-99 [facility] Comment on above: Performed By: #### C MP #### [facility] [address] [place] [address] Potassium [Moles/Vol] 4.7 mmol/L Normal 3.4-4.9 [facility] Comment on above: Performed By: #### C MP #### [facility] [address] [place] [address] Protein [Mass/Vol] 7.8 g/dL Normal 6.3-8.0 [facility] Comment on above: Performed By: #### C MP #### [facility] [address] [place] [address] Sodium [Moles/Vol] 134 mmol/L Low 135-144 [facility] Comment on above: Performed By: #### C MP #### [facility] [address] [place] [address] Urea nitrogen [Mass/Vol] 14 mg/dL Normal 8-23 [facility] Comment on above: Performed By: #### C MP #### [facility] [address] [place] [address] Culture, Urineon 10-21-2023 Culture, Urine ORDER#: [id number] ORDERED BY: AYANA KING SOURCE: Urine Clean Catch COLLECTED: 10/21/23 18:35 ANTIBIOTICS AT MAX.: RECEIVED : 10/21/23 18:35 Culture, Urine PRELIM 10/23/23 08:53 [place] [address] Escherichia coli >100,000 CFU/ML Normal [facility] Comment on above: Performed By: #### C JESUSN #### [facility] [address] [place] [address] High Sensitivity Troponin To n 10-21-2023 High Sensitivity Troponin T 7 ng/L Normal 0-19 [facility] Comment on above: Result Comment: High Sensitivity Troponin values cannot be compared with other Troponin methodologies. Performed By: #### C JESUSN #### [facility] [address] [place] [address] Lipaseon 10-21-2023 Lipase [Catalytic activity/Vol] 51 U/L Normal 12-95 [facility] Comment on above: Performed By: #### C JESUSN #### [facility] [address] [place] [address] Magnesiumon 10-21-2023 Magnesium [Mass/Vol] 2.0 mg/dL Normal 1.7-2.4 [facility] Comment on above: Performed By: #### C JESUSN #### [facility] [address] [place] [address] TSH w/out Reflexon TSH w/out Reflex 0.794 uIU/mL Normal 0.440-3.86 [facility] Comment on above: Performed By: #### C GAYLE #### [facility] [address] [place] [address] Thyroxine Freeon 10-21-2023 Thyroxine Free 1.07 ng/dL Normal 0.84-1.68 [facility] Comment on above: Performed By: #### C GAYLE #### [facility] [address] [place] [address] Urinalysis, reflex to cultur adri 10-21-2023 Urine Reflexed to Culture Yes Normal [facility] Comment on above: Performed By: #### U AR #### [facility] [address] [place] [address] Bilirubin Ql (U) Negative Normal Negative [facility] Comment on above: Performed By: #### U AR #### [facility] [address] [place] [address] Clarity (U) Clear Normal Clear [facility] Comment on above: Performed By: #### U AR #### [facility] [address] [place] [address] Color (U) Yellow Normal Straw/Mccurtain [facility] Comment on above: Performed By: #### U AR #### [facility] [address] [place] [address] Glucose Ql (U) Negative Normal Negative [facility] Comment on above: Performed By: #### U AR #### [facility] [address] [place] [address] Hemoglobin Ql (U) Negative Normal Negative [facility] Comment on above: Performed By: #### U AR #### [facility] [address] [place] [address] Ketones Ql (U) Negative Normal Negative [facility] Comment on above: Performed By: #### U AR #### [facility] [address] [place] [address] Leukocyte esterase Test strip Ql (U) SMALL Abnormal Negative [facility] Comment on above: Performed By: #### U AR #### [facility] [address] [place] [address] Nitrite Ql (U) Positive Abnormal Negative [facility] Comment on above: Performed By: #### U AR #### [facility] [address] [place] [address] pH (U) 7.5 [pH] Normal 5.0-9.0 [facility] Comment on above: Performed By: #### U AR #### [facility] [address] [place] [address] Protein Ql (U) Negative Normal Negative [facility] Comment on above: Performed By: #### U AR #### [facility] [address] [place] [address] Specific gravity (U) [Rel density] 1.010 Normal 1.005-1.03 [facility] Comment on above: Performed By: #### U AR #### [facility] [address] [place] [address] Urobilinogen Qn (U) 1.0 {Cuab'U}/dL Normal < 2.0 [facility] Comment on above: Performed By: #### U AR #### [facility] [address] [place] [address] Urine Microscopicon 10-21-19 24 Urine Bacteria MANY Abnormal Negative [facility] Comment on above: Performed By: #### U AR #### [facility] [address] [place] [address] Urine Epithelial Cells Auto 0-2 Normal 0-5 [facility] Comment on above: Performed By: #### U AR #### [facility] [address] [place] [address] Urine Hyaline Casts Auto 0-1 Normal 0-5 [facility] Comment on above: Performed By: #### U AR #### [facility] [address] [place] [address] Urine RBC Auto 6-10 Abnormal 0-5 [facility] Comment on above: Performed By: #### U AR #### [facility] [address] [place] [address] Urine WBC Auto 20-50 Abnormal 0-5 [facility] Comment on above: Performed By: #### U AR #### [facility] [address] [place] [address] XR CHEST PORTABLEon 10-21-19 XR CHEST PORTABLE [...] Dozier MD 10/21/[address] [facility] TSH 3rd Generationon 06-2 024 TSH 3rd Generation 1.550 mU/L Normal 0.270-4.20 [facility] Comment on above: Result Comment: REFE RENCE INTERVAL: TSH 3rd Generation Access complete set of age- and/or gender-specific reference intervals for this test in the [facility] Test Directory ([employer]). Performed By: [employer] [address] [place] [id number] Meter Reading Clerk: Rehan Harrell MD, PhD CLIA Number: [id number] CBC With Platelet No Differe ntialon 09-12-2023 Erythrocyte distribution width (RBC) [Ratio] 13.2 % Normal 11.5-14.5 [facility] Comment on above: Performed By: #### C BCND #### [facility] [address] [place] [address] Hematocrit (Bld) [Volume fraction] 39.1 % Normal 37.0-47.0 [facility] Comment on above: Performed By: #### C BCND #### [facility] [address] [place] [address] Hemoglobin (Bld) [Mass/Vol] 12.9 g/dL Normal 12.0-16.0 [facility] Comment on above: Performed By: #### C BCND #### [facility] [address] [place] [address] MCH (RBC) [Entitic mass] 32.0 pg Critically high 27.0-31.3 [facility] Comment on above: Performed By: #### C BCND #### [facility] [address] [place] [address] MCHC 33.0 % Normal 33.0-37.0 [facility] Comment on above: Performed By: #### C BCND #### [facility] [address] [place] [address] MCV (RBC) [Entitic vol] 97.0 fL Critically high 79.4-[address] [facility] Comment on above: Performed By: #### C BCND #### [facility] [address] [place] [address] Platelets (Bld) [#/Vol] 212 10*3/uL Normal 130-400 [facility] Comment on above: Performed By: #### C BCND #### [facility] [address] [place] [address] RBC (Bld) [#/Vol] 4.03 10*6/uL Low 4.20-5.40 [facility] Comment on above: Performed By: #### C BCND #### [facility] [address] [place] [address] WBC (Bld) [#/Vol] 5.1 10*3/uL Normal 4.8-10.8 [facility] Comment on above: Performed By: #### C BCND #### [facility] [address] [place] [address] Comprehensive Metabolic Pane ridge 09-12-2023 Albumin [Mass/Vol] 3.5 g/dL Normal 3.5-4.6 [facility] Comment on above: Performed By: #### C MP #### [facility] [address] [place] [address] ALP [Catalytic activity/Vol] 79 U/L Normal 40-130 [facility] Comment on above: Performed By: #### C MP #### [facility] [address] [place] [address] ALT [Catalytic activity/Vol] 23 U/L Normal 0-33 [facility] Comment on above: Performed By: #### C MP #### [facility] [address] [place] [address] Anion gap [Moles/Vol] 9 mmol/L Normal 9-15 [facility] Comment on above: Performed By: #### C MP #### [facility] [address] [place] [address] AST [Catalytic activity/Vol] 43 U/L Critically high 0-35 [facility] Comment on above: Performed By: #### C MP #### [facility] [address] [place] [address] Bilirubin [Mass/Vol] 0.8 mg/dL Critically high 0.2-0.7 [facility] Comment on above: Performed By: #### C MP #### [facility] [address] [place] [address] Calcium [Mass/Vol] 8.7 mg/dL Normal 8.5-9.9 [facility] Comment on above: Performed By: #### C MP #### [facility] [address] [place] [address] Chloride [Moles/Vol] 102 mmol/L Normal 95-107 [facility] Comment on above: Performed By: #### C MP #### [facility] [address] [place] [address] CO2 [Moles/Vol] 24 mmol/L Normal 20-31 [facility] Comment on above: Performed By: #### C MP #### [facility] [address] [place] [address] Creatinine [Mass/Vol] 0.68 mg/dL Normal 0.50-0.90 [facility] Comment on above: Performed By: #### C MP #### [facility] [address] [place] [address] GFR >60.0 Normal >60 [facility] Comment on above: Result Comment: Noreen atric [...] Performed By: #### C MP #### [facility] [address] [place] [address] Globulin (S) [Mass/Vol] 4.1 g/dL Critically high 2.3-3.5 [facility] Comment on above: Performed By: #### C MP #### [facility] [address] [place] [address] Glucose [Mass/Vol] 100 mg/dL Critically high 70-99 M [facility] Comment on above: Performed By: #### C MP #### [facility] [address] [place] [address] Potassium [Moles/Vol] 4.2 mmol/L Normal 3.4-4.9 [facility] Comment on above: Performed By: #### C MP #### [facility] [address] [place] [id number] Protein [Mass/Vol] 7.6 g/dL Normal 6.3-8.0 [facility] Comment on above: Performed By: #### C MP #### [facility] [address] [place] [id number] Sodium [Moles/Vol] 135 mmol/L Normal 135-144 [facility] Comment on above: Performed By: #### C MP #### [facility] [address] [place] [address] Urea nitrogen [Mass/Vol] 13 mg/dL Normal 8-23 [facility] Comment on above: Performed By: #### C MP #### [facility] [address] [facility] [place] [address] Magnesiumon 09-12-2023 Magnesium [Mass/Vol] 1.9 mg/dL Normal 1.7-2.4 [facility] Comment on above: Performed By: #### M G #### [facility] [address] [place] [id number] proBNPon 09-12-2023 Natriuretic peptide B (Bld) [Mass/Vol] 400 pg/mL Normal [facility] Comment on above: Result Comment: NT-p ro [...] Performed By: #### U YASMINE #### [facility] [address] [facility] [place] [address] Quantiferon-TB Plus (Client Incubated)on 09-02-2023 Gamma interferon background IA Qn (Bld) 0.00 International_Unit/mL Invalid Interpretation Code [facility] Comment on above: Performed By: #### 1 [id number], 7668896, 4434700, 5111664, [id number] #### [facility] [address] [place] [address] M. tuberculosis stim IFN-g by CD4+ CD8+ T-cells Qn (Bld) 0.00 International_Unit/mL Invalid Interpretation Code [facility] Comment on above: Performed By: #### 1 [id number], 8085865, 7403992, 1300299, [id number] #### [facility] [address] [place] [address] M. tuberculosis stim IFN-g by CD4+ T-cells Qn (Bld) 0.02 International_Unit/mL Invalid Interpretation Code [facility] Comment on above: Performed By: #### 1 5352161, 5894167, 1483879, 6179317, [id number] #### [facility] [address] [place] [address] M. tuberculosis stim IFN-g Ql (Bld) [Interp] Negative Invalid Interpretation Code Negative [facility] Comment on above: Result Comment: No [...] interferon gamma. Chemiluminescence immunoassay methodology Performed at: [employer] [id number] PhD Santos Villareal Performed By: #### 1 8108675, 8173877, 1873536, 3500107, [id number] #### [facility] [address] [place] [address] Mitogen stimulated gamma interferon Qn (Bld) >10.00 Invalid Interpretation Code [facility] Comment on above: Performed By: #### 1 6831693, 7953497, 7717082, 3471354, 03540605 #### [facility] [address] [place] [address] Service comment (Unsp spec) [Interp] Comment Invalid Interpretation Code [facility] Comment on above: Result Comment: Holland [...] for the test. Performed By: #### 1 [id number], 5120134, 8191418, 0261419, [id number] #### [facility] [address] [place] [address] Discharge Instructionson Discharge Instructions [id number] Normal [facility] Inpatient Clinical Summaryon 08-31-2023 Inpatient Clinical Summary [address] [address] Clinical Summary Person Information: Name: CARIDAD CARIAS I Age: 83 Years : 1940 Sex: Female PCP: EDMOND PACHECO DO Marital Status: Phone: [phone] Race: White Ethnicity: Non- or Language: [place] Visit Id: Visit Reason: Altered mental status; AMS Speciality: Acuity: Enc Type: Observation Med Service: Medical Arrival: 08/27/2023 18:31:49 Discharge: Dispo Type: Admitted as IP to this [facility] Address: [address] [place] [id number] Provider Notes: Diagnosis: 1:Dementia; 2:History of CVA [...] With: Address: When: Austyn Campos MD, [place] [address] [place] [address] Within 2 to 4 weeks Patient Education Information: Normal [facility] Inpatient Patient Summaryon 08-31-2023 Inpatient Patient [...] Pending Diagnostic Test Results None [facility] after Discharge Follow Up with Andres RODRIGUEZ, LEATHA Zaman When: Within 2 to 4 weeks Where: [facility] [address] [address]- Medications What How Much When Instructions Next [...] Neurodermatitis Nocturia (more content not included)... Normal [facility] Inpatient Patient Summary [address] [address] Patient Discharge Instructions PERSON INFORMATION [...] Follow up: With: Address: When: Andres RODRIGUEZ, LEATHA Zaman [address] [address] Within 2 to 4 weeks [...] the morning) (more content not included)... Normal [facility] Interdisciplinary Note - Adalberto e Manageron 08-31-2023 Interdisciplinary Note - Mirror Department Supervisor CRM to room to discuss DC planning. Patient is awake and alert in room. Family is present. Patient is from [facility] She is unable to return at DC and needs LTC in a memory unit. Patient PCP and insurance has been verified. Patient is an observation for AMS. Patient is assigned to DR Bhatti, see notes. Patient has Neurology on case. Patient has been referred to 1. [facility] per family had accepted and hoping to DC 08/31/23. We have sent needed paperwork to them and are awaiting on final confirmation of acceptance. TB test was ordered. Patient was provided CRM contact, white board updated. CRM following. Patient can DC to [facility] today Family is transporting [facility] Comment on above: Result Comment: Elec troadelsoally Signed By: Dianna Arthur\.br\Date and Time Signed: 08/31/23 14:51 EST Interdisciplinary Note - Soc ial Workeron 08-31-2023 Interdisciplinary Note - [employer] This SW spoke to [place] at [facility] today and confirmed they have everything needed for patient to admit there today. She voiced that everything is good to go and asked that patient's RN call report to the Memory Care Nurse at the facility; this was relayed to staff. This SW will continue to await the results of patient's blood TB test and will send these over to [place] once they are available. At this time they were able to utilize the Chest X-ray but continue to want the results of the blood test for compliance with their state requirements. SW will remain available. Normal [facility] Interdisciplinary Note - Adalberto e Manageron 08-30-2023 Interdisciplinary Note - Mirror Department Supervisor CRM to room to discuss DC planning. Patient is awake and alert in room. Family is present. Patient is from [facility]. She is unable to return at DC and needs LTC in a memory unit. Patient PCP and insurance has been verified. Patient is an observation for AMS. Patient is assigned to DR Bhatti, see notes. Patient has Neurology on case. Patient has been [facility] to [facility] per family had accepted and hoping to DC 08/31/23. We did send needed paper work filled out by Physician to [facility] that they were requesting. TB test was ordered. Patient was provided CRM contact, trevor board updated. CRM following. 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 Patient is awake and alert in room. Patient is from [facility]. She is unable to return at [place] and needs LTC in a memory unit. Patient daughter will be in today around 1300/1330. Patient PCP and insurance has been verified. Patient is an observation for AMS. Patient is assinged to DR Bhatti, see notes. Patient has Neurology on case. [facility] [place] [facility], 2[facility], 3. [facility] and 4. [facility]. Patient was provided CRM contact, white board updated. CRM following. Will DC once placement found Normal [facility] Comment on above: Result Comment: Elec tronically Signed By: Dianna Arthur\.br\Date and Time Signed: 08/29/23 11:40 EST Interdisciplinary Note - Penelope n 08-29-2023 Interdisciplinary Note - OT OT [facility] six clicks score 21/24 = no further OT needs. Patient requires close/dist sup w/ all adls and transfers d/t cues for safety/sequencing. This appears to be pt's baseline d/t dementia. Recommend 24 hr supervision for optimal safety and Ind w/ functional activities. DC inpatient OT services. Normal [facility] Progress Note-Physicianon Progress Note-Physician Basic Informatio [...] 4 mg= 1 tab(s), Oral, Bedtime Normal [facility] Comment on above: Result Comment: Elec tronically Signed By: Davy RODRIGUEZ, Alex\.br\Date and Time Signed: 08/29/23 13:34 EST BMPon 08-28-2023 Anion gap [Moles/Vol] 7 mmol/L Normal 6-16 [facility] Comment on above: Performed By: #### 1 [id number], 1923692, 5556597, 3102124, 94871810 #### [facility] [address] [place] [address] BUN/Creat Ratio 22 No Units High 10-20 [facility] Comment on above: Performed By: #### 1 0407430, 9650765, 9316954, 4162314, 85131509 #### [facility] [address] [place] [address] Calcium [Mass/Vol] 8.3 mg/dL Low 8.9-11.1 [facility] Comment on above: Performed By: #### 1 2504245, 5924008, 3387067, 2603963, 18126521 #### [facility] [address] [place] [address] Chloride [Moles/Vol] 103 mmol/L Normal 101-111 [facility] Comment on above: Performed By: #### 1 6956587, 9440394, 8245030, 9701431, 32627605 #### [facility] [address] [place] [address] CO2 [Moles/Vol] 29 mmol/L Normal 21-31 [facility] Comment on above: Performed By: #### 1 2902935, 6202992, 5263734, 6869302, 02844422 #### [facility] [address] [place] [address] Creatinine [Mass/Vol] 0.6 mg/dL Normal 0.5-1.3 [facility] Comment on above: Performed By: #### 1 5349911, 4025837, 5711153, 6806247, 10445464 #### [facility] [address] [place] [address] Glucose [Mass/Vol] 90 mg/dL Normal 55-199 [facility] Comment on above: Performed By: #### 1 1420604, 6795299, 1622941, 3813831, 89910290 #### [facility] [address] [place] [address] Potassium [Moles/Vol] 4.0 mmol/L Normal 3.5-5.3 [facility] Comment on above: Performed By: #### 1 4837108, 6766279, 2185859, 0179204, 37816784 #### [facility] [address] [place] [address] Sodium [Moles/Vol] 135 mmol/L Normal 135-145 [facility] Comment on above: Performed By: #### 1 8255092, 1923412, 4192389, 5114338, 53221477 #### [facility] [address] [place] [address] Urea nitrogen [Mass/Vol] 13 mg/dL Normal 5-21 [facility] Comment on above: Performed By: #### 1 3717481, 6211653, 5203830, 8732231, 75096316 #### [facility] [address] [place] [address] CBC w/ Auto Diffon 4 Basophil Absolute 0.1 E9/L Normal 0.0-0.2 [facility] Comment on above: Performed By: #### 1 3650239, 6889910, 0050843, 7844317, 07847492 #### [facility] [address] [place] [address] Basophils/100 WBC (Bld) 1.0 % Normal 0.0-2.0 [facility] Comment on above: Performed By: #### 1 9594268, 8512634, 5164429, 5551908, 93859314 #### [facility] [address] [place] [address] Eos Absolute 0.4 E9/L Normal 0.0-0.5 [facility] Comment on above: Performed By: #### 1 4264451, 8857295, 5267161, 4171683, 40877042 #### [facility] [address] [place] [address] Eosinophils/100 WBC (Bld) 7.8 % Normal 0.0-8.0 [facility] Comment on above: Performed By: #### 1 7239071, 1383799, 1212538, 2776163, 97422781 #### [facility] [address] [place] [address] Erythrocyte distribution width (RBC) [Ratio] 13.5 % Normal 10.9-14.2 [facility] Comment on above: Performed By: #### 1 6400293, 8499996, 8791069, 5957606, 38531209 #### [facility] [address] [place] [address] Hematocrit (Bld) [Volume fraction] 36.0 % Normal 34.0-46.0 [facility] Comment on above: Performed By: #### 1 4185271, 7971651, 9356456, 7372099, 64163632 #### [facility] [address] [place] [address] Hemoglobin (Bld) [Mass/Vol] 11.7 g/dL Low 12.0-16.0 [facility] Comment on above: Performed By: #### 1 8355630, 6654463, 0094629, 8949972, 72611232 #### [facility] [address] [place] [address] Lymph Absolute 2.4 E9/L Normal 1.0-4.0 [facility] Comment on above: Performed By: #### 1 0318449, 7927875, 0901498, 2077222, 29573775 #### [facility] [address] [place] [address] Lymphocytes/100 WBC (Bld) 46.5 % Normal 14.0-50.0 [facility] Comment on above: Performed By: #### 1 0293473, 6139660, 9475713, 4704390, 53705125 #### [facility] [address] [place] [address] MCH (RBC) [Entitic mass] 32.0 pg Normal 27.0-34.0 [facility] Comment on above: Performed By: #### 1 5549949, 1303143, 8478680, 3016733, 47653998 #### [facility] [address] [place] [address] MCHC (RBC) [Mass/Vol] 32.5 g/dL Normal 31.4-36.0 [facility] Comment on above: Performed By: #### 1 8510441, 3867862, 6588635, 1946735, 57034845 #### [facility] [address] [place] [address] MCV (RBC) [Entitic vol] 98.5 fL Normal 80.0-100.0 F [facility] Comment on above: Performed By: #### 1 6748859, 4768833, 8916027, 0603791, 06693439 #### [facility] [address] [place] [address] Walker Absolute 0.6 E9/L Normal 0.2-1.0 [facility] Comment on above: Performed By: #### 1 4338851, 9673197, 0126589, 4930185, 64874598 #### [facility] [address] [place] [address] Monocytes/100 WBC (Bld) 10.5 % Normal 4.0-14.0 [facility] Comment on above: Performed By: #### 1 2922650, 0946125, 7077234, 9971851, 67126599 #### [facility] [address] [place] [address] Neutro Absolute 1.8 E9/L Low 2.0-7.5 [facility] Comment on above: Performed By: #### 1 8741141, 0066105, 1793346, 6641461, 52826406 #### [facility] [address] [place] [address] Neutro Auto 34.2 % Low 36.0-75.0 [facility] Comment on above: Performed By: #### 1 [id number], 6419602, 6550976, 4152383, 47605795 #### [facility] [address] [place] [address] Platelet 164.0 E9/L Normal 150.0-500.0 [facility] Comment on above: Performed By: #### 1 9751500, 2561372, 9368929, 2857760, 70541968 #### [facility] [address] [place] [address] Platelet mean volume (Bld) [Entitic vol] 7.6 fL Normal 6.4-10.8 [facility] Comment on above: Performed By: #### 1 1009608, 8257262, 1791001, 4223413, 85851956 #### [facility] [address] [place] [address] RBC 3.7 E12/L Low 4.3-5.9 [facility] Comment on above: Performed By: #### 1 1301703, 5318359, 2891680, 3974415, 29477226 #### [facility] [address] [place] [address] WBC 5.3 E9/L Normal 4.0-11.0 [facility] Comment on above: Performed By: #### 1 3971874, 1297941, 9477469, 1816663, 28406268 #### [facility] [address] [place] [address] Interdisciplinary Note - Adalberto e Manageron 08-28-2023 Interdisciplinary Note - Mirror Department Supervisor CRM spoke with patients daughter Linh on the phone as patient has dementia and confused. Patient was previous rounded on by Dr Rodriguez today. No family in room. Patient is Whiteboard updated and CRM contact # provided. Patients daughter verified PCP, insurance and DME. Per daughter patient has been at [facility] and cannot return there as she is a flight risk. Daughter states she needs help to find a memory unit facility for her mother. She has called [facility] and they may come eval tomorrow for placement. She also [facility] and [facility] beds. discussed [facility] as a choice and [facility] in [place] as her suggestions. Discussed [facility] as well. she is agreeable to send referrals to all places. She states she works 2 jobs to pay for care for her mother and mother has $40,000 in bank and a home to be sold to pay for care. She dis verify insurance, PCP and DME. She will transport at de. [facility] to room and patient only oriented o self. Will wait responses from facilities. Normal [facility] Comment on above: Result Comment: Elec [...] dizziness UA negative Seroquel at night Ordered: [facility] Care/Day Moderate 35 Minutes 34691 2. History of CVA in adulthood (Z86.73: [...] of name and that she lives in [facility]: cooperative, affect appropriate for age, pleasant [...] 04:55:00) Lymph Auto: 46.5 % (08/28/23 04:55:00) Walker Auto: 10.5 % (08/28/23 04:55:00) Eos Auto: 7.8 % (08/28/23 04:55:00) Basophil Auto: 1 % (08/28/23 04:55:00) Neutro Absolute: 1.8 E9/L Low (08/28/23 04:55:00) Lymph Absolute: 2.4 E9/L (08/28/23 04:55:00) Walker Absolute: 0.6 E9/L (08/28/23 04:55:00) Eos Absolute: [...] A/G R (more content not included)... Normal [facility] Comment on above: Result Comment: Elec tronically Signed By: Barrie Rodriguez DO\zita\Date and Time Signed: 08/28/23 09:52 EST Sed Rate Automatedon 024 ESR (Bld) [Velocity] 45 mm/h High 0-34 [facility] Comment on above: Performed By: #### 1 2380655, 1377342, 9893043, 1376702, 35332851 #### [facility] [address] [place] [address] Troponin 6 Hr.on 08-28-2023 Troponin 14.20 pg/mL Normal 10.10-27.10 [facility] Comment on above: Result Comment: The 95% CI (Confidence Interval) PPV (Positive Predictive Value) for myocardial infarction in females is 38 pg/mL, in males 51 pg/mL. The results should be used in conjunction with clinical conditions of myocardial infarction. (Access High Sensitivity Troponin I Instructions For Use, GOkey, March 2018) Performed By: #### 1 [id number] #### [facility] [address] [place] [address] Troponin 9 Hr.on 08-28-2023 Troponin 11.60 pg/mL Normal 10.10-27.10 [facility] Comment on above: Result Comment: The 95% CI (Confidence Interval) PPV (Positive Predictive Value) for myocardial infarction in females is 38 pg/mL, in males 51 pg/mL. The results should be used in conjunction with clinical conditions of myocardial infarction. (Access High Sensitivity Troponin I Instructions For Use, GOkey, March 2018) Performed By: #### 1 3597471, 9274482, 5116048, 8083241, 05853942 #### [facility] [address] [place] [address] XR Chest Single Viewon 08-28 XR Chest [...] mGy = n/a DAP = n/a Normal [facility] eGFRon 08-28-2023 eGFR 90 mL/min/1.73 m2 Normal >=59 [facility] Comment on above: Order Comment: Order Added by Discern Expert. Performed By: #### 1 7485547, 0324789, 2900890, 8689121, 23889375 #### [facility] [address] [place] [address] BMPon 08-27-2023 Anion gap [Moles/Vol] 8 mmol/L Normal 6-16 [facility] Comment on above: Performed By: #### 1 6019522, 7849663, 0417757, 1460006, 25038467 #### [facility] [address] [place] [address] BUN/Creat Ratio 16 No Units Normal 10-20 [facility] Comment on above: Performed By: #### 1 9901776, 8765673, 4546662, 2544527, 02419148 #### [facility] [address] [place] [address] Calcium [Mass/Vol] 8.6 mg/dL Low 8.9-11.1 [facility] Comment on above: Performed By: #### 1 4812159, 8587942, 1843850, 1610266, 71398690 #### [facility] [address] [place] [address] Chloride [Moles/Vol] 102 mmol/L Normal 101-111 [facility] Comment on above: Performed By: #### 1 4430866, 2116773, 5088908, 9784549, 40662098 #### [facility] [address] [place] [address] CO2 [Moles/Vol] 29 mmol/L Normal 21-31 [facility] Comment on above: Performed By: #### 1 0435187, 1019105, 2484038, 7742831, 72773459 #### [facility] [address] [place] [address] Creatinine [Mass/Vol] 0.8 mg/dL Normal 0.5-1.3 [facility] Comment on above: Performed By: #### 1 5800994, 6654128, 4213340, 5043084, 89122558 #### [facility] [address] [place] [address] Glucose [Mass/Vol] 89 mg/dL Normal 55-199 [facility] Comment on above: Performed By: #### 1 5821489, 1877168, 9647518, 9099374, 82471964 #### [facility] [address] [place] [address] Potassium [Moles/Vol] 3.9 mmol/L Normal 3.5-5.3 [facility] Comment on above: Performed By: #### 1 7541684, 6512617, 6584310, 9607774, 02624415 #### [facility] [address] [place] [address] Sodium [Moles/Vol] 135 mmol/L Normal 135-145 [facility] Comment on above: Performed By: #### 1 4622501, 1369933, 1698201, 8132807, 74919211 #### [facility] [address] [place] [address] Urea nitrogen [Mass/Vol] 13 mg/dL Normal 5-21 [facility] Comment on above: Performed By: #### 1 2233318, 7571604, 9785814, 6524682, 45454203 #### [facility] [address] [place] [address] CBC w/ Auto Diffon 4 Basophil Absolute 0.1 E9/L Normal 0.0-0.2 [facility] Comment on above: Performed By: #### 1 3947990, 5610870, 8067586, 1516603, 95424133 #### [facility] [address] [place] [address] Basophils/100 WBC (Bld) 1.0 % Normal 0.0-2.0 [facility] Comment on above: Performed By: #### 1 6569601, 8242466, 2850150, 9926187, 23895535 #### [facility] [address] [place] [address] Eos Absolute 0.3 E9/L Normal 0.0-0.5 [facility] Comment on above: Performed By: #### 1 9356102, 1131695, 4762302, 9879406, 91505673 #### [facility] [address] [place] [address] Eosinophils/100 WBC (Bld) 5.2 % Normal 0.0-8.0 [facility] Comment on above: Performed By: #### 1 5254203, 2386080, 3190446, 7989391, 86869825 #### [facility] [address] [place] [address] Erythrocyte distribution width (RBC) [Ratio] 13.7 % Normal 10.9-14.2 [facility] Comment on above: Performed By: #### 1 6071199, 2517681, 0567642, 7894158, 69529009 #### [facility] [address] [place] [address] Hematocrit (Bld) [Volume fraction] 38.0 % Normal 34.0-46.0 [facility] Comment on above: Performed By: #### 1 5835856, 7961426, 0468225, 1989520, 85515979 #### [facility] [address] [place] [address] Hemoglobin (Bld) [Mass/Vol] 12.6 g/dL Normal 12.0-16.0 [facility] Comment on above: Performed By: #### 1 0381811, 9195582, 8642870, 4710288, 22013802 #### [facility] [address] [place] [address] Lymph Absolute 2.8 E9/L Normal 1.0-4.0 [facility] Comment on above: Performed By: #### 1 4058472, 1352441, 2907762, 9433576, 73311931 #### [facility] [address] [place] [address] Lymphocytes/100 WBC (Bld) 45.7 % Normal 14.0-50.0 [facility] Comment on above: Performed By: #### 1 1189341, 9947448, 2830323, 3556663, 68106525 #### [facility] [address] [place] [address] MCH (RBC) [Entitic mass] 33.0 pg Normal 27.0-34.0 [facility] Comment on above: Performed By: #### 1 8935629, 5681215, 8399028, 3251724, 85668843 #### [facility] [address] [place] [address] MCHC (RBC) [Mass/Vol] 33.5 g/dL Normal 31.4-36.0 [facility] Comment on above: Performed By: #### 1 9453496, 9687110, 1064132, 1853574, 40067656 #### [facility] [address] [place] [address] MCV (RBC) [Entitic vol] 98.4 fL Normal 80.0-100.0 [facility] Comment on above: Performed By: #### 1 8681452, 7307661, 0189798, 1917524, 37405617 #### [facility] [address] [place] [address] Walker Absolute 0.6 E9/L Normal 0.2-1.0 [facility] Comment on above: Performed By: #### 1 6399498, 8876193, 1219538, 4204238, 89051094 #### [facility] [address] [place] [address] Monocytes/100 WBC (Bld) 10.5 % Normal 4.0-14.0 [facility] Comment on above: Performed By: #### 1 1220386, 1152288, 9986385, 3388250, 35843553 #### [facility] [address] [place] [address] Neutro Absolute 2.3 E9/L Normal 2.0-7.5 [facility] Comment on above: Performed By: #### 1 5422473, 3956863, 2646376, 7712257, 19905146 #### [facility] [address] [place] [address] Neutro Auto 37.6 % Normal 36.0-75.0 [facility] Comment on above: Performed By: #### 1 1761142, 0276049, 3178673, 5632050, 36452818 #### [facility] [address] [place] [address] Platelet 176.0 E9/L Normal 150.0-500.0 [facility] Comment on above: Performed By: #### 1 4845959, 7510091, 7011975, 1654293, 17893841 #### [facility] [address] [place] [address] Platelet mean volume (Bld) [Entitic vol] 7.6 fL Normal 6.4-10.8 [facility] Comment on above: Performed By: #### 1 2759132, 6559949, 0020635, 0005722, 96808104 #### [facility] [address] [place] [address] RBC 3.8 E12/L Low 4.3-5.9 [facility] Comment on above: Performed By: #### 1 4288654, 4494215, 6198414, 8236611, 80643148 #### [facility] [address] [place] [address] WBC 6.1 E9/L Normal 4.0-11.0 [facility] Comment on above: Performed By: #### 1 2836619, 2285990, 0659271, 7818443, 37954161 #### [facility] [address] [place] [address] Consent for Treatmenton 08-09 Consent for Treatment [id number] 0TIFF Normal [facility] ED Clinical Summaryon 2023 ED Clinical Summary [address] [address] ED Clinical Summary Person Information Name: CARIDAD CARIAS I [facility] Age: 83 Years : 1940 Sex: Female Language: St Lucian PCP: EDMOND PACHECO DO Marital Status: Phone: [phone] Visit Id: Visit Reason: Altered mental status; AMS Speciality: Acuity: 3 Enc Type: Observation Med Service: Emergency Arrival: 08/27/2023 18:31:49 Discharge: LOS: 000 03:43 Checkin: 08/27/2023 18:31:49 Checkout: 08/27/2023 22:14:01 Dispo Type: Admitted as IP to this [facility] EVENTS: Event Name Event Status Request Date/Time [...] 21:46:02 Patient Care Request 08/27/2023 21:46:02 ADDR[place]: [id number] [facility] [id number] PHYS DOC NOTES: MEDICAL INFORMATION: Prescriptions Given: [...] Follow up: DIAGNOSIS: Altered mental status Normal [facility] ED Note-Nursingon 08-27-2023 ED Note-Nursing Pt's BP in 200's systolic. Physician aware. will continue to monitor. no new meds ordered at this time. Normal [facility] ED Note-Physicianon 08-27-19 24 ED Note-Physician Basic Information Time Seen: Vicente Rausch DO 08/27/2023 18:53 Chief Complaint dtr. brought pt. from [facility] d/t AMS x 1 week. hx dementia. [...] and Complexity of Problems Differential Diagnosis: [] [facility] Data External documents reviewed: [] My EKG [...] 81 mg= (more content not included)... Normal [facility] Comment on above: Result Comment: Elec tronically Signed By: Vicente Rausch DO\.br\Date and Time Signed: 08/27/23 21:18 EST ED Patient Education Noteon 08-27-2023 ED Patient Education Note Normal [facility] ED Patient Summaryon 024 ED Patient Summary [place] [id number] Patient Discharge Instructions Person Information Name: CARIDAD CARIAS I Age: 83 Years Arrival Date: 08/27/2023 18:31:49 Discharge Diagnosis: Altered mental status Primary Care Physician: EDMOND PACHECO DO Provider Information Primary Provider: Vicente Rausch DO Advanced Linux Programmer:None The exam and treatment you received in the Emergency Department were for an urgent problem and are not intended as complete care. It is important that you follow up with a doctor, nurse practitioner, or physician?s assistant site manager for ongoing care. If your symptoms become [...] opioids can be used to help relieve ciogcfuy-jm-rknarr pain and are often prescribed following a [...] be struggling with addiction, tell your health chronic care nurse and ask for guidance or call [facility]?S National Helpline at 0-725-194-VOKQ. k Source: [place] Department of Health and Human Services/Center for Disease Control & Prevention [facility] Medications Given: Medication Dose Route busPIR (more content not included)... Normal [facility] Hep Func Panelon 08-27-2023 Albumin [Mass/Vol] 3.2 g/dL Low 3.3-5.0 [facility] Comment on above: Performed By: #### 1 1719271, 9321241, 6581181, 6735302, 14593660 #### [facility] [address] [place] [address] Albumin/Globulin [Mass ratio] 0.8 {ratio} Low 1.1-2.2 [facility] Comment on above: Performed By: #### 1 9890155, 1573316, 0243322, 1164331, 49429381 #### [facility] [address] [place] [address] Alk Phos 86 Int._Unit/L Normal 21-98 [facility] Comment on above: Performed By: #### 1 8112989, 8193336, 3789146, 3027004, 75635826 #### [facility] [address] [place] [address] ALT 26 Int._Unit/L Normal 6-46 [facility] Comment on above: Performed By: #### 1 6018363, 9338368, 8897967, 4495200, 29663440 #### [facility] [address] [place] [address] AST 41 Int._Unit/L Normal 5-43 [facility] Comment on above: Performed By: #### 1 3981696, 1764254, 3807465, 8747244, 74938794 #### [facility] [address] [place] [address] Bili Direct 0.2 mg/dL Normal 0.0-0.4 [facility] Comment on above: Performed By: #### 1 0567070, 0541469, 9595655, 5954785, 38573154 #### [facility] [address] [place] [address] Bili Indirect 0.5 mg/dL Normal 0.1-0.9 [facility] Comment on above: Performed By: #### 1 4536666, 5057693, 3483492, 3715443, 84013963 #### [facility] [address] [place] [address] Bili Total 0.7 mg/dL Normal 0.0-1.1 [facility] Comment on above: Performed By: #### 1 0909411, 8841887, 4378074, 6277404, 84851023 #### [facility] [address] [place] [address] Globulin (S) [Mass/Vol] 4.1 g/dL High 1.4-4.0 [facility] Comment on above: Performed By: #### 1 8364712, 1529758, 3806970, 3273304, 62889912 #### [facility] [address] [place] [address] Protein [Mass/Vol] 7.3 g/dL Normal 6.0-7.8 [facility] Comment on above: Performed By: #### 1 0224131, 4351189, 3189689, 5423650, 13269399 #### [facility] [address] [place] [address] Monitor Recordon 08-27-2023 Monitor Record [id number] Normal [facility] PT & PTTon 08-27-2023 aPTT Coag (PPP) [Time] 33.1 second(s) Normal 25.1-36.5 [facility] Comment on above: Result Comment: Para [...] the same coagulation reagent and instrumentation as [facility]. Currently there are no coagulation studies available worldwide for children to 14 days, and no normal ranges. Heparin therapeutic range (represented by Anti-Factor Xa activity of 0.2 - 0.4 U/mL) corresponds to PTT of 56.6 - 109.0 sec. Performed By: #### 1 0797115, 8868487, 5556140, 8207363, 98961644 #### [facility] [address] [place] [address] INR Coag (PPP) [Relative time] 1.1 {INR} Invalid Interpretation Code [facility] Comment on above: Result Comment: INR results are specifically intended to assess patients stabilized on long-term Anticoagulation therapy suggested INR?s ?Less Intensive Anticoagulation? 2.0 ? 3.0 Conventional Range 3.0 ? 4.5 Performed By: #### 1 5392564, 8646747, 1352108, 6224677, 54255512 #### [facility] [address] [place] [address] PT Coag (PPP) [Time] 12.0 second(s) Normal 9.4-12.5 [facility] Comment on above: Result Comment: 15 [...] the same coagulation reagent and instrumentation as [facility]. Currently there are no coagulation studies available worldwide for children to 14 days, and no normal ranges. Performed By: #### 1 8536603, 5551039, 9164553, 8941396, 86813355 #### [facility] [address] [place] [address] TSH With T4fr Reflexon 08-27 TSH Qn 1.53 m[IU]/L Normal 0.34-5.60 [facility] Comment on above: Performed By: #### 1 5732001, 0560893, 9069370, 4804929, 24530058 #### [facility] [address] [place] [address] Troponin 0 Hr.on 08-27-2023 Troponin 13.60 pg/mL Normal 10.10-27.10 [facility] Comment on above: Result Comment: The 95% CI (Confidence Interval) PPV (Positive Predictive Value) for myocardial infarction in females is 38 pg/mL, in males 51 pg/mL. The results should be used in conjunction with clinical conditions of myocardial infarction. (Access High Sensitivity Troponin I Instructions For Use, GOkey, March 2018) Performed By: #### 1 2638402, 9751059, 7875553, 3104130, 72009627 #### [facility] [address] [place] [address] Troponin 3 Hr.on 08-27-2023 Troponin 15.40 pg/mL Normal 10.10-27.10 [facility] Comment on above: Result Comment: The 95% CI (Confidence Interval) PPV (Positive Predictive Value) for myocardial infarction in females is 38 pg/mL, in males 51 pg/mL. The results should be used in conjunction with clinical conditions of myocardial infarction. (Access High Sensitivity Troponin I Instructions For Use, GOkey, March 2018) Performed By: #### 1 3440301, 3029283, 9015733, 6041606, 06777228 #### [facility] [address] [place] [address] UA With Cult Reflexon 2023 Bilirubin Ql (U) Negative Normal Negative [facility] Comment on above: Performed By: #### 1 5415791, 3771211, 2129139, 9950165, 78878742 #### [facility] [address] [place] [address] Clarity (U) CLEAR Normal Clear [facility] Comment on above: Performed By: #### 1 8502839, 6305749, 3923407, 0763151, 26156841 #### [facility] [address] [place] [address] Color (U) YELLOW Normal Yellow [facility] Comment on above: Performed By: #### 1 2728863, 2311042, 4012008, 8488369, 40786173 #### [facility] [address] [place] [address] Epithelial cells.squamous LM.HPF (Urine sed) [#/Area] 0-2 Normal 0-2 [facility] Comment on above: Performed By: #### 1 4022591, 6890389, 9203467, 1774198, 49236027 #### [facility] [address] [place] [address] Glucose Test strip (U) [Mass/Vol] Negative Normal Negative [facility] Comment on above: Performed By: #### 1 1883795, 1950089, 6902553, 0736020, 32704139 #### [facility] [address] [place] [address] Hemoglobin Ql (U) Negative Normal Negative [facility] Comment on above: Performed By: #### 1 8667144, 8578743, 2420853, 1600720, 97157270 #### [facility] [address] [place] [address] Ketones (U) [Mass/Vol] Negative Normal Negative [facility] Comment on above: Performed By: #### 1 4590581, 3718481, 1982929, 8391198, 16703565 #### [facility] [address] [place] [address] Letona.plasma/Letona. RBC (Bld) [Mass ratio] 0-3 Normal 0-3 [facility] Comment on above: Performed By: #### 1 9390702, 4066402, 1081730, 5330195, 71288754 #### [facility] [address] [place] [address] Nitrite Ql (U) Negative Normal Negative [facility] Comment on above: Performed By: #### 1 9590439, 4695153, 5544401, 2038976, 15300837 #### [facility] [address] [place] [address] pH (U) 6.5 [pH] Invalid Interpretation Code 5.0-9.0 [facility] Comment on above: Performed By: #### 1 8743394, 1634662, 6757076, 2616968, 14141893 #### [facility] [address] [place] [address] Protein (U) [Mass/Vol] Negative Normal Negative [facility] Comment on above: Performed By: #### 1 7516385, 9604452, 2521879, 7060167, 71161333 #### [facility] [address] [place] [address] Specific gravity (U) [Rel density] 1.010 Invalid Interpretation Code 1.005-1.030 [facility] Comment on above: Performed By: #### 1 4794916, 9758636, 6697979, 0329262, 47498705 #### [facility] [address] [place] [address] Type of Urine collection method Clean Catch Normal [facility] Comment on above: Performed By: #### 1 6351133, 1609989, 5765311, 3966241, 64373377 #### [facility] [address] [place] [address] Urobilinogen Qn (U) 0.2 {[place]'U}/dL Normal 0.0-1.0 [facility] Comment on above: Performed By: #### 1 5270746, 9453963, 5208818, 6547709, 08222359 #### [facility] [address] [place] [address] WBC Auto Ql (U) Negative Normal Negative [facility] [facility] Comment on above: Performed By: #### 1 4862660, 1184189, 8532572, 7768547, 73691750 #### [facility] [address] [place] [address] WBC LM.HPF (Urine sed) [#/Area] 0-5 Normal 0-5 [facility] Comment on above: Performed By: #### 1 8091378, 7715681, 3486603, 0661299, 96334169 #### [facility] [address] [place] [address] eGFRon 08-27-2023 eGFR 74 mL/min/1.73 m2 Normal >=59 [facility] Comment on above: Order Comment: Order added by Discern Expert. Performed By: #### 1 6941361, 1114732, 2672610, 6215712, 55006574 #### [facility] [address] [place] [address] [facility] Recordson 07-26 [facility] Records [id number]#1. 00TIFF Normal [facility] Family Medicine Office/Clini c Noteon 07-21-2023 Family Medicine Office/Clinic Note History of Present Illness TCU DISCHARGE after TCU ADMISSION Inpatient [facility] 07/10?6, 1 day history AMS and dementia. [...] therapy stay. Plan to discharge 07/22/2023 to [facility]. PMHx- dementia, OA, anxiety depression, DM (?) no meds, A1c 5.3, NAWAF untreated,psoriatic arthritis on Remicade. Nonsustained VT on Holter Dec, 2021, nl lexiscan. Hx alcohol abuse. nonsmoker. Hx lumbr surgeries, toe surgeries PCP Dr. Edmond Pacheco Psychiatry Dr. Faustin Neurologist LAUREN Rheumatology Dr. Taylor Dtr Linh Riley, RETAIL ADVERTISING ACCOUNT EXECUTIVE Physical Exam GENERAL - 82 yo WF sitting in recliner doing exercises with PT LUNGS - CTA CARDIAC - RRR, No murmur ABD - BSP, NT EXT - No edema noted MUSCULOSKELETAL - strength strong for age with push/pull, hand electrical integrator strong PSYCHIATRIC - A+O x3, able to state date, month, upcoming holiday, and president Assessment/Plan 1. Dementia (F03.90: Unspecified dementia, unspecified severity, without behavioral disturbance, psychotic disturbance, mood disturbance, and anxiety) vascular with alcohol component vs Lewey Body vs Alzheimers waxing/waning behavioral affects, no underlying metabolic cause identified had adverse effects with Aricept, Namenda continue Seroquel 25mg qHS to manage symptoms Completed rehab stay 2. Cerebrovascular disease (I67.9: Cerebrovascular [...] Recorded p (more content not included)... Normal [facility] Comment on above: Result Comment: Elec tronically Signed By: Cyndi HOBSON, Chaparro Dean\Date and Time Signed: 07/21/23 10:03 EST UA With Cult Reflexon 2022 Bacteria LM Ql (Urine sed) TRACE Normal Trace [facility] Comment on above: Performed By: #### 1 2352392, 7500259, 9567097, 2258312, 86523008 #### [facility] [address] [place] [address] Bilirubin Ql (U) Negative Normal Negative [facility] Comment on above: Performed By: #### 1 0362603, 3347057, 4487823, 6171024, 53674443 #### [facility] [address] [place] [address] Clarity (U) CLEAR Normal Clear [facility] Comment on above: Performed By: #### 1 0301415, 7518957, 2626270, 3284615, 27092641 #### [facility] [address] [place] [address] Color (U) YELLOW Normal Yellow [facility] Comment on above: Performed By: #### 1 8091029, 6617671, 7445140, 4640434, 36386147 #### [facility] [address] [place] [address] Epithelial cells.squamous LM.HPF (Urine sed) [#/Area] 0-2 Normal 0-2 [facility] Comment on above: Performed By: #### 1 6686504, 2796388, 6364100, 2985847, 83796825 #### [facility] [address] [place] [address] Glucose Test strip (U) [Mass/Vol] Negative Normal Negative [facility] Comment on above: Performed By: #### 1 9789903, 5480335, 4304274, 5581099, 28369883 #### [facility] [address] [place] [address] Hemoglobin Ql (U) Negative Normal Negative [facility] Comment on above: Performed By: #### 1 8076524, 5639399, 0674857, 4049735, 63023208 #### [facility] [address] [place] [address] Ketones (U) [Mass/Vol] Negative Normal Negative [facility] Comment on above: Performed By: #### 1 6288548, 2637784, 2643033, 6585472, 12933141 #### [facility] [address] [place] [address] Letona.plasma/Letona. RBC (Bld) [Mass ratio] 0-3 Normal 0-3 [facility] Comment on above: Performed By: #### 1 7124361, 0193875, 2472074, 5034729, 42574635 #### [facility] [address] [place] [address] Nitrite Ql (U) Negative Normal Negative [facility] Comment on above: Performed By: #### 1 9908888, 8435891, 8984665, 6585832, 26727531 #### [facility] [address] [place] [address] pH (U) 6.0 [pH] Invalid Interpretation Code 5.0-9.0 [facility] Comment on above: Performed By: #### 1 1397100, 7528152, 9917803, 1858973, 65071294 #### [facility] [address] [place] [address] Protein (U) [Mass/Vol] Negative Normal Negative [facility] Comment on above: Performed By: #### 1 4571324, 8340546, 9517563, 4597213, 28288182 #### [facility] [address] [place] [address] Specific gravity (U) [Rel density] 1.020 Invalid Interpretation Code 1.005-1.030 [facility] Comment on above: Performed By: #### 1 8312277, 3231930, 1147092, 2393052, 96259006 #### [facility] [address] [place] [address] Type of Urine collection method Clean Catch Normal [facility] Comment on above: Performed By: #### 1 1047333, 4701414, 6473074, 8054484, 29489515 #### [facility] [address] [place] [address] Urobilinogen Qn (U) 0.2 {Cuba'U}/dL Normal 0.0-1.0 [facility] Comment on above: Performed By: #### 1 0745181, 5039237, 7779595, 5882748, 89522068 #### [facility] [address] [place] [address] WBC Auto Ql (U) Negative Normal Negative [facility] Comment on above: Performed By: #### 1 4760290, 5870957, 6777211, 5713436, 47778926 #### [facility] [address] [place] [address] WBC LM.HPF (Urine sed) [#/Area] 0-5 Normal 0-5 [facility] Comment on above: Performed By: #### 1 5704643, 3158773, 9976350, 0545472, 02435830 #### [facility] [address] [place] [address] URINALYSISOrdered By: Lizet Saab on 07-19-2023 Bacteria [...] [Mass/Vol] Negative (07/19/23 8:33 AM) Normal Negative [facility] UA Auto SS Hemoglobin Ql (U) Negative (07/19/23 8:33 AM) Normal Negative [facility] UA Auto SS Ketones (U) [Mass/Vol] Negative (07/19/23 8:33 AM) Normal Negative [facility] UA Auto SS Letona.plasma/Letona. RBC (Bld) [Mass ratio] 0-3 /HPF Normal 0-3/HPF [facility] UA A uto SS Nitrite Ql (U) Negative (07/19/23 8:33 AM) Normal Negative [facility] UA Auto SS pH (U) 6.0 *NA* (07/19/23 8:33 AM) Invalid Interpretation Code 5.0 - 9.0 [facility] UA Auto SS Protein (U) [Mass/Vol] Negative (07/19/23 8:33 AM) Normal Negative [facility] UA Auto SS Specific gravity (U) [Rel density] 1.020 *NA* (07/19/23 8:33 AM) Invalid Interpretation Code 1.005 - 1.030 [facility] UA Auto SS UA Spec Desc Clean Catch (07/19/23 8:33 AM) Normal [facility] UA Auto SS Urobilinogen Qn (U) 0.9645720 {Cuba'U}/dL Normal 0.0 - 1.0 EU/dL [facility] UA Auto SS WBC Auto Ql (U) Negative (07/19/23 8:33 AM) Normal Negative [facility] UA Auto SS WBC LM.HPF (Urine sed) [#/Area] 0-5 /HPF Normal 0-5/HPF [facility] UA Auto SS Family Medicine Office/Clini c Noteon 07-15-2023 Family Medicine Office/Clinic Note History of Present Illness TCU ADMIT from [facility] 07/10?6 1 day history AMS on dementia. [...] 2021, nl lexiscan. Hx alcohol abuse. nonsmoker. Hx lumbr surgeries, toe surgeries PCP Dr. Edmond Pacheco Psychiatry Dr. Faustin Neurologist [facility] Rheumatology Dr. 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 oriented to name. Place is hospital after thinking about it, season ?, Holiday Fran. Month- long pause, July with cueing. Year [...] Beer, Daily, 0 (more content not included)... [facility] Comment on above: Result Comment: Elec tronically Signed By: PASCALE RODRIGUEZ, Inderjit\.br\Date and Time Signed: 07/15/23 10:14 EST Discharge Instructionson Discharge Instructions [id number]#1. 00TIFF [facility] Insurance Correspondence Off iceon 07-14-2023 Insurance Correspondence Office [id number]#1. 00TIFF [facility] Medication Listson 3 Medication Lists [id number]#1. 00TIFF [facility] Transfer Documentson 023 Transfer Documents [id number]#1. 00TIFF [facility] BMPon 07-13-2023 Anion gap [Moles/Vol] 5 mmol/L Low 6-16 [facility] Comment on above: Performed By: #### 2 122142, [id number] ####[facility] [address] [place] [address] Calcium [Mass/Vol] 8.6 mg/dL Low 8.9-11.1 [facility] Comment on above: Performed By: #### 2 542830, 64677504 ####[facility] [address] [place] [address] Chloride [Moles/Vol] 105 mmol/L Normal 101-111 [facility] Comment on above: Performed By: #### 2 518667, 02794462 ####[facility] [address] [place] [place] [address] CO2 [Moles/Vol] 29 mmol/L Normal 21-31 [facility] Comment on above: Performed By: #### 2 848877, 47864802 ####[facility] [address] [place] [address] Creatinine [Mass/Vol] 0.6 mg/dL Normal 0.5-1.3 [facility] Comment on above: Performed By: #### 2 537559, 99761532 ####[facility] [address] [place] [address] Glucose [Mass/Vol] 98 mg/dL Normal 55-199 [facility] Comment on above: Result Comment: If t his glucose result represents a fasting glucose, interpretation should refer to the following reference range: 55-99 mg/dL Performed By: #### 2 343837, 27890003 ####[facility] [address] [place] [address] Potassium [Moles/Vol] 4.0 mmol/L Normal 3.5-5.3 [facility] Comment on above: Performed By: #### 2 471549, 84223390 ####[facility] [address] [place] [address] Sodium [Moles/Vol] 135 mmol/L Normal 135-145 [facility] Comment on above: Performed By: #### 2 257226, 71732919 ####[facility] [address] [place] [address] Urea nitrogen [Mass/Vol] 16 mg/dL Normal 5-21 [facility] Comment on above: Performed By: #### 2 571178, 48836891 ####[facility] [address] [place] [address] Urea nitrogen/Creatinine [Mass ratio] 27 No Units High 10-20 [facility] Comment on above: Performed By: #### 2 863523, 52772697 ####[facility] [address] [place] [address] CHEMISTRYOrdered By: SYSTEM SYSTEM on 07-13-2023 Anion gap [Moles/Vol] 5 mmol/L Low 6 - 16 mEq/L [facility] Remisol Calcium [Mass/Vol] 8.6 mg/dL Low 8.9 - 11. 1 mg/dL [facility] Remisol Chloride [Moles/Vol] 105 mmol/L Normal 101 - 1 11 mmol/L [facility] CO2 [Moles/Vol] 29 mmol/L Normal 21 - 31 mmol/L [facility] Remisol Creatinine [Mass/Vol] 0.6 mg/dL Normal 0.5 - 1.3 mg/dL [facility] Remisol GFR/1.73 sq M.predicted among non-blacks MDRD (S/P/Bld) [Vol rate/Area] 91 mL/min/1.73 m2 Normal >=59mL/min/ 1.73 m2 [facility] Chem S Comment on above: Interpretive Data: C hronic kidney disease could be indicated at eGFR's of less than 60 mL/min/1.73m2. Kidney failure is indicated at less than 15 mL/min/1.73m2. Glucose [Mass/Vol] 98 mg/dL Normal 55 - 199 mg/dL [facility] Remisol Comment on above: Interpretive Data: I f this glucose result represents a fasting glucose, interpretation should refer to the following reference range: 55-99 mg/dL Potassium [Moles/Vol] 4.0 mmol/L Normal 3.5 - 5.3 mmol/L [facility] Remisol Sodium [Moles/Vol] 135 mmol/L Normal 135 - 145 mmol/L [facility] Remisol Urea nitrogen [Mass/Vol] 16 mg/dL Normal 5 - 21 mg/dL [facility] Remisol Urea nitrogen/Creatinine [Mass ratio] 27 mg/mg High 10 - 20 [facility] Remisol Discharge Note-Nursingon Discharge Note-Nursing CARIDAD CARIAS Yunier :1940 Visit Date:07/10/2023 Inpatient Discharge Instructions Your [...] Test Results None Pharmacy Information Monik Dominique Discharge Instructions Manage sleep wake cycle disturbance with Seroquel at bedtime. Follow-up with neurology and your family doctor as listed as follow-up. Maintain adequate oral hydration. Previously Scheduled Follow-Up Appointments Tuesday 10:00 AM EST Where: [facility] New Follow Up Appointments after Discharge Follow Up with EDMOND PACHECO DO When: Within 2 weeks Comments: Call for followup appointment Where: [address] [place] [address]- Follow Up with Andres RODRIGUEZ, LEATHA Zaman When: Within 2 to 4 weeks Where: [facility] [address] [place] [id number]- Medications What How Much When Instructions Next [...] 9 AM Unchanged omeprazole (omeprazole 20 mg Diomedes-) 1 Capsules By Mouth Once a day [...] (magnesium oxi (more content not included)... Normal [facility] Inpatient Clinical Summaryon 07-13-2023 Inpatient Clinical Summary [address] [address] Clinical Summary Person Information: Name: CARIDAD CARIAS I Age: 82 Years : 1940 Sex: Female PCP: EDMOND PACHECO DO Marital Status: Phone: [phone] Race: White Ethnicity: Non- or Language: [place]ian Visit Id: Visit Reason: Altered mental status; ALTERED MENTAL STATUS - VERY CONFUSED - FRONTAL HEADACHE Speciality: Acuity: Enc Type: Observation Med Service: Medical Arrival: 07/10/2023 16:39:36 Discharge: Dispo Type: Admitted as IP to this Hosp Address: [address] [place] [id number] Provider Notes: Diagnosis: 1:Acute encephalopathy; 2:History of [...] up: With: Address: When: EDMOND PACHECO DO [address] [place] [id number] Within 2 weeks Comments: Call for followup appointment With: Address: When: Austyn Campos MD [address] [address] Within 2 to 4 weeks Type Location Start Finish State Secured Appointment Type Secured Location 07/15/2023 10:00 AM 07/15/2023 10:45 AM Confirmed Patient Education Information: Sleep Apnea, Sxuy-pq-Gknw; Hyponatremia, Ikik-jz-Ambb Normal [facility] Inpatient Patient Summaryon 07-13-2023 Inpatient Patient Summary [address] [address] Patient Discharge Instructions PERSON INFORMATION [...] Address: When: EDMOND PACHECO DO [address] [place] [address] Within 2 weeks Comments: Call for followup appointment With: Address: When: Andres RODRIGUEZ, Austyn [address] [address] Within 2 to 4 weeks [...] LIST OF Y (more content not included)... [facility] Interdisciplinary Note - Adalberto e Manageron 07-13-2023 Interdisciplinary Note - Mirror Department Supervisor Pt is awake and alert in bed, previously rounded with Rimma . Aware of TCU acceptance and precert obtained and plan to DC to TCU today, family present. Declines any further concerns or needs. . PCP verified and insurance information reviewed and DME discussed. Contact information provided and white board updated. [facility] Comment on above: Result Comment: Elec tronically [...] Remote history of lower back surgery at [facility]. Patient is on Zanaflex we will continue [...] 06:44:00) Ramon (more content not included)... Normal [facility] Comment on above: Result Comment: Elec tronically Signed By: Rimma Paez\.br\Date and Time Signed: 07/12/23 23:36 EST\.br\Electronically Co-Signed By: HARPER RODRIGUEZ, Valente\.br\Date and Time Co-Signed: 07/13/23 07:19 EST eGFRon 07-13-2023 GFR/1.73 sq M.predicted among non-blacks MDRD (S/P/Bld) [Vol rate/Area] 91 mL/min/1.73 m2 Normal >=59 [facility] Comment on above: Order Comment: Order added by Discern Expert. Result Comment: Store Promoter adelso kidney disease could be indicated at eGFR's of less than 60 mL/min/1.73m2. Kidney failure is indicated at less than 15 mL/min/1.73m2. Performed By: #### 2 161715, [id number] ####[facility] [address] [place] [address] Ammoniaon 07-12-2023 Ammonia (P) [Moles/Vol] 24 mcmol Normal 11-35 F [facility] Comment on above: Performed By: #### 2 044737, 0732629, 35891979 ####[facility] [address] [place] [address] BMPon 07-12-2023 Anion gap [Moles/Vol] 10 mmol/L Normal 6-16 [facility] Comment on above: Performed By: #### 2 630808, 1631096, 44395477 #### [facility] [address] [place] [address] Calcium [Mass/Vol] 8.8 mg/dL Low 8.9-11.1 [facility] Comment on above: Performed By: #### 2 115198, 4749941, 33712261 #### [facility] [address] [place] [address] Chloride [Moles/Vol] 105 mmol/L Normal 101-111 [facility] Comment on above: Performed By: #### 2 719900, 6994513, 64461617 #### [facility] [address] [place] [address] CO2 [Moles/Vol] 27 mmol/L Normal 21-31 [facility] Comment on above: Performed By: #### 2 091297, 5861048, 53950673 #### [facility] [address] [place] [address] Creatinine [Mass/Vol] 0.6 mg/dL Normal 0.5-1.3 [facility] Comment on above: Performed By: #### 2 218755, 4982210, 25263879 #### [facility] [address] [place] [address] Glucose [Mass/Vol] 101 mg/dL Normal 55-199 [facility] Comment on above: Result Comment: If t his glucose result represents a fasting glucose, interpretation should refer to the following reference range: 55-99 mg/dL Performed By: #### 2 045690, 3683596, 34838063 #### [facility] [address] [place] [address] Potassium [Moles/Vol] 3.5 mmol/L Normal 3.5-5.3 [facility] Comment on above: Performed By: #### 2 107487, 4120235, 42553373 #### [facility] [address] [place] [address] Sodium [Moles/Vol] 138 mmol/L Normal 135-145 [facility] Comment on above: Performed By: #### 2 563041, 2481921, 25865759 #### [facility] [address] [place] [address] Urea nitrogen [Mass/Vol] 15 mg/dL Normal 5-21 [facility] Comment on above: Performed By: #### 2 618739, 7682906, 44328624 #### [facility] [address] [place] [address] Urea nitrogen/Creatinine [Mass ratio] 25 No Units High 10-20 [facility] Comment on above: Performed By: #### 2 990707, 0476774, 03043559 #### [facility] [address] [place] [address] CHEMISTRYOrdered By: SYSTEM SYSTEM on 07-12-2023 Ammonia (P) [Moles/Vol] 24 umol Normal 11 - 35 mcmol [facility] Anion gap [Moles/Vol] 10 mmol/L Normal [...] 91 mL/min/1.73 m2 Normal >=59mL/min/ 1.73 m2 [facility] Chem S Comment on above: Interpretive Data: C hronic kidney disease could be indicated at eGFR's of less than 60 mL/min/1.73m2. Kidney failure is indicated at less than 15 mL/min/1.73m2. Glucose [Mass/Vol] 101 mg/dL Normal 55 - 199 mg/dL [facility] Remisol Comment on above: Interpretive Data: I f this glucose result represents a fasting glucose, interpretation should refer to the following reference range: 55-99 mg/dL Potassium [Moles/Vol] 3.5 mmol/L Normal 3.5 - 5.3 mmol/L [facility] Sodium [Moles/Vol] 138 mmol/L Normal 135 - 145 mmol/L [facility] Urea nitrogen [Mass/Vol] 15 mg/dL Normal 5 - 21 mg/dL [facility] Remisol Urea nitrogen/Creatinine [Mass ratio] 25 mg/mg High 10 - 20 [facility] Interdisciplinary Note - Adalberto e Manageron 07-12-2023 Interdisciplinary Note - Mirror Department Supervisor Pt is awake and alert in bed, previously rounded with Rimma JOHNSTON Pt is aware and remains agreeble to plan for TCU at DC, pending precert at this time. Family at bedside. Aware of plan to stay in hospital today and anticipate DC /. Pt declines any further concerns ro DC needs. . PCP verified and insurance information reviewed and DME discussed. Contact information provided and white board updated. Normal [facility] Comment on above: Result Comment: Elec tronically Signed By: Jeovanny CROWLEY, Shanae\.anusha\Date and Time Signed: 07/12/23 12:53 EST Monitor Recordon 07-12-2023 Monitor Record [id number]#1. 00TIFF Normal [facility] Monitor Record [id number]#1. 00TIFF Normal [facility] Monitor Record [id number]#1. 00TIFF Normal [facility] eGFRon 07-12-2023 GFR/1.73 sq M.predicted among non-blacks MDRD (S/P/Bld) [Vol rate/Area] 91 mL/min/1.73 m2 Normal >=59 [facility] Comment on above: Order Comment: Order added by Discern Expert. Result Comment: Store Promoter adelso kidney disease could be indicated at eGFR's of less than 60 mL/min/1.73m2. Kidney failure is indicated at less than 15 mL/min/1.73m2. Performed By: #### 2 166088, 2006924, 37682812 #### [facility] [address] [place] [address] Auto Diffon 07-11-2023 Basophils/100 WBC (Bld) 0.3 % Normal 0.0-2.0 F [facility] Comment on above: Order Comment: Order Added by Discern Expert. Performed By: #### 1 7568181, 4446613, 1147608, 9312428, 97069282 #### [facility] [address] [place] [address] Basophils/Leukocytes Auto (Bld) [Pure # fraction] 0.0 E9/L Normal 0.0-0.2 [facility] Comment on above: Order Comment: Order Added by Discern Expert. Performed By: #### 1 2785800, 1862278, 3393782, 5141869, 27547882 #### [facility] [address] [place] [address] Eosinophils/100 WBC (Bld) 1.4 % Normal 0.0-8.0 [facility] Comment on above: Order Comment: Order Added by Discern Expert. Performed By: #### 1 8624085, 1960800, 7421129, 4347153, 83095498 #### [facility] [address] [place] [address] Eosinophils/Leukocytes Auto (Bld) [Pure # fraction] 0.1 E9/L Normal 0.0-0.5 [facility] Comment on above: Order Comment: Order Added by Discern Expert. Performed By: #### 1 0505799, 9736303, 9626550, 5718257, 73279891 #### [facility] [address] [place] [address] Lymphocytes/100 WBC (Bld) 32.5 % Normal 14.0-50.0 [facility] Comment on above: Order Comment: Order Added by Discern Expert. Performed By: #### 1 3188096, 4249490, 4416303, 9262138, 21092577 #### [facility] [address] [place] [address] Lymphocytes/Leukocytes Auto (Bld) [Pure # fraction] 2.0 E9/L Normal 1.0-4.0 [facility] Comment on above: Order Comment: Order Added by Discern Expert. Performed By: #### 1 7082309, 8336854, 3177570, 6115621, 15938738 #### [facility] [address] [place] [address] Monocytes/100 WBC (Bld) 7.4 % Normal 4.0-14.0 [facility] Comment on above: Order Comment: Order Added by Discern Expert. Performed By: #### 1 2844687, 1167905, 8719550, 1060543, 69657335 #### [facility] [address] [place] [address] Monocytes/Leukocytes Auto (Bld) [Pure # fraction] 0.5 E9/L Normal 0.2-1.0 [facility] Comment on above: Order Comment: Order Added by Discern Expert. Performed By: #### 1 [id number], 7270530, 1760967, 2770393, 65770848 #### [facility] [address] [place] [address] Neutrophils/100 WBC (Bld) 58.4 % Normal 36.0-75.0 [facility] Comment on above: Order Comment: Order Added by Discern Expert. Performed By: #### 1 7068300, 7470903, 6515336, 6923213, 80665276 #### [facility] [address] [place] [address] Neutrophils/Leukocytes Auto (Bld) [Pure # fraction] 3.6 E9/L Normal 2.0-7.5 [facility] Comment on above: Order Comment: Order Added by Alethea Expert. Performed By: #### 1 6473836, 2335853, 0069046, 4589514, 33459653 #### [facility] [address] [place] [address] BMPon 07-11-2023 Anion gap [Moles/Vol] 7 mmol/L Normal 6-16 [facility] Comment on above: Performed By: #### 1 5816823, 1047668, 2649349, 2023901, 60506259 #### [facility] [address] [place] [address] Calcium [Mass/Vol] 8.5 mg/dL Low 8.9-11.1 [facility] Comment on above: Performed By: #### 1 0105662, 8816082, 4108215, 3244236, 40818856 #### [facility] [address] [place] [address] Chloride [Moles/Vol] 104 mmol/L Normal 101-111 [facility] Comment on above: Performed By: #### 1 0822846, 2061191, 0349414, 2200340, 05500538 #### [facility] [address] [place] [address] CO2 [Moles/Vol] 28 mmol/L Normal 21-31 [facility] Comment on above: Performed By: #### 1 1353025, 5080497, 0500208, 3744026, 98397058 #### [facility] [address] [place] [address] Glucose [Mass/Vol] 105 mg/dL Normal 55-199 [facility] Comment on above: Result Comment: If t his glucose result represents a fasting glucose, interpretation should refer to the following reference range: 55-99 mg/dL Performed By: #### 1 8867165, 9282694, 0423297, 2136905, 55385836 #### [facility] [address] [place] [address] Potassium [Moles/Vol] 3.9 mmol/L Normal 3.5-5.3 [facility] Comment on above: Performed By: #### 1 7848834, 6886255, 0841419, 3391154, 05049091 #### [facility] [address] [place] [address] Sodium [Moles/Vol] 135 mmol/L Normal 135-145 [facility] Comment on above: Performed By: #### 1 9272100, 1607344, 9288547, 4037079, 06552494 #### [facility] [address] [place] [address] Creatinine [Mass/Vol] 0.6 mg/dL Normal 0.5-1.3 [facility] Comment on above: Performed By: #### 1 6435973, 2203078, 7498192, 7474581, 87390446 #### [facility] [address] [place] [address] Urea nitrogen [Mass/Vol] 14 mg/dL Normal 5-21 [facility] Comment on above: Performed By: #### 1 3611841, 5414470, 7186695, 4506663, 52088589 #### [facility] [address] [place] [address] Urea nitrogen/Creatinine [Mass ratio] 23 No Units High 10-20 [facility] Comment on above: Performed By: #### 1 1344337, 9532564, 9791106, 8567918, 08059396 #### [facility] [address] [place] [address] CBC w/ Auto Diffon 3 Erythrocyte distribution width (RBC) [Ratio] 13.0 % Normal 10.9-14.2 [facility] Comment on above: Performed By: #### 1 6157242, 4389564, 0958424, 3412684, 60256912 #### [facility] [address] [place] [address] Hematocrit (Bld) [Volume fraction] 36.9 % Normal 34.0-46.0 [facility] Comment on above: Performed By: #### 1 1578681, 8062656, 8582798, 3144312, 20308004 #### [facility] [address] [place] [address] Hemoglobin (Bld) [Mass/Vol] 12.7 g/dL Normal 12.0-16.0 [facility] Comment on above: Performed By: #### 1 4236349, 9228861, 8184598, 9741272, 49318232 #### [facility] [address] [place] [address] MCH (RBC) [Entitic mass] 32.9 pg Normal 27.0-34.0 [facility] Comment on above: Performed By: #### 1 4729386, 2018473, 0019463, 4353593, 77407160 #### [facility] [address] [place] [address] MCHC (RBC) [Mass/Vol] 34.3 g/dL Normal 31.4-36.0 [facility] Comment on above: Performed By: #### 1 4357792, 9031924, 3584303, 7034183, 46286539 #### [facility] [address] [place] [address] MCV (RBC) [Entitic vol] 95.9 fL Normal 80.0-100.0 [facility] Comment on above: Performed By: #### 1 7876117, 6159419, 6086280, 9758315, 02213404 #### [facility] [address] [place] [address] Platelet mean volume (Bld) [Entitic vol] 7.7 fL Normal 6.4-10.8 [facility] Comment on above: Performed By: #### 1 4834739, 3462786, 1140366, 6337606, 18159056 #### [facility] [address] [place] [address] Platelets (Bld) [#/Vol] 171.0 E9/L Normal 150.0-500.0 [facility] Comment on above: Performed By: #### 1 4364655, 1020094, 8726398, 5260366, 10518297 #### [facility] [address] [place], [place] [address] RBC (Bld) [#/Vol] 3.8 E12/L Low 4.3-5.9 [facility] Comment on above: Performed By: #### 1 4185627, 9172611, 8567713, 3782279, 62121614 #### [facility] [address] [place] [address] WBC corrected for nucl RBC Auto (Bld) [#/Vol] 6.2 E9/L Normal 4.0-11.0 [facility] Comment on above: Performed By: #### 1 5158455, 2530765, 3603362, 8916658, 53420072 #### [facility] [address] [place] [address] CHEMISTRYOrdered By: SYSTEM SYSTEM on 07-11-2023 Ethanol [...] High Sensitivity Troponin I Instructions For Use, [facility], March 2018) Consultation Noteon 07-11-20 Consultation Note Chief Complaint significant change in mental status - alia Melton Reason for Consultation encephalopathy (dementia) History of [...] sensation in all 4 extremities Cerebellar exam: Lmchmu-ye-mghy reveals no ataxia. Gait is deferred Assessment/Plan [...] (F42.4: Excoria (more content not included)... Normal [facility] Comment on above: Result Comment: Elec tronically Signed By: Rashida Moraes RN\.br\Date and Time Signed: 07/11/23 07:08 EST\.br\Electronically Co-Signed By: Austyn Campos MD\.br\Date and Time Co-Signed: 07/11/23 10:43 EST Ethanolon 07-11-2023 Ethanol [Mass/Vol] mg/dL Normal <=7 [facility] Comment on above: Performed By: #### 1 3572040, 0072847, 6010683, 4211198, 29575903 #### [facility] [address] [place] [address] HEMATOLOGYOrdered By: SYSTEM SYSTEM on 07-11-2023 Basophils/100 [...] 3.6 E9/L Normal 2.0 - 7.5 E9/L FT HemeAutoSS HEMATOLOGYOrdered By: Lizet Saab on 07-11-2023 [...] E9/L Normal 150. 0 - 500.0 E9/L [facility] HemeAutoSS RBC (Bld) [#/Vol] 3.8 E12/L Low 4.3 - 5.9 E12/L [facility] HemeAutoSS WBC corrected for nucl RBC Auto (Bld) [#/Vol] 6.2 E9/L Normal 4.0 - 11.0 E9/L [facility] HemeAutoSS Hep Func Panelon 07-11-2023 Albumin [Mass/Vol] 3.3 g/dL Normal 3.3-5.0 [facility] Comment on above: Performed By: #### 1 7310990, 8643419, 3592532, 4264932, 60512147 #### [facility] [address] [place] [address] Albumin/Globulin (S) [Mass conc ratio] 0.8 Low 1.1-2.2 [facility] Comment on above: Performed By: #### 1 5799082, 0704512, 7149245, 0870796, 92303135 #### [facility] [address] [place] [address] ALP [Catalytic activity/Vol] 60 Int._Unit/L Normal 21-98 [facility] Comment on above: Performed By: #### 1 1358567, 6113482, 1853130, 2606535, 64470662 #### [facility] [address] [place] [address] ALT No additional P-5'-P [Catalytic activity/Vol] 18 Int._Unit/L Normal 6-46 [facility] Comment on above: Performed By: #### 1 9366691, 5319575, 8249234, 7110638, 45592442 #### [facility] [address] [place] [address] AST [Catalytic activity/Vol] 36 Int._Unit/L Normal 5-43 [facility] Comment on above: Performed By: #### 1 6619619, 2196085, 4935683, 9280889, 99688471 #### [facility] [address] [place] [address] Bilirubin [Mass/Vol] 1.3 mg/dL High 0.0-1.1 [facility] Comment on above: Performed By: #### 1 7320785, 4255625, 8561311, 7267754, 03767979 #### [facility] [address] [place] [address] Bilirubin.direct [Mass/Vol] 0.2 mg/dL Normal 0.1-0.4 [facility] Comment on above: Performed By: #### 1 1261900, 3325515, 5066960, 0774752, 22180931 #### [facility] [address] [place] [address] Bilirubin.indirect [Mass or moles/Vol] 1.1 mg/dL High 0.1-0.9 [facility] Comment on above: Performed By: #### 1 9576729, 9960264, 2990169, 4044444, 38117262 #### [facility] [address] [place] [address] Globulin (S) [Mass/Vol] 4.2 g/dL High 1.4-4.0 [facility] Comment on above: Performed By: #### 1 7132140, 6752398, 4342688, 9974662, 84192058 #### [facility] [address] [place] [address] Protein [Mass/Vol] 7.5 g/dL Normal 6.0-7.8 [facility] Comment on above: Performed By: #### 1 7034478, 9941035, 2943150, 4175888, 83013116 #### [facility] [address] [place] [address] Interdisciplinary Note - Adalberto e Manageron 07-11-2023 Interdisciplinary Note - Mirror Department Supervisor Per nursing, asked to let pt sleep, she didn't get any rest last night. Pending PT/OT. ROSADO form discussed over the phone. Copy provided. Ant dc TBD. CRM to follow. PT/OT recs SNF. Referral made per dtr's request. Precert. Normal [facility] Comment on above: Result Comment: Elec tronically Signed By: Edita Cai\Date and Time Signed: 07/11/23 15:18 EST Interdisciplinary Note - Penelope n 07-11-2023 Interdisciplinary Note - OT OT [facility] six clicks score 14/24= SNF. Patient requires cga/min A w/ adls and transfers. Patient requires cues for safety and sequencing w/ all functional tasks. Inpatient OT services to follow daily to progress as able w/ functional skills. Normal [facility] Interdisciplinary Note - PTo n 07-11-2023 [...] tactile cues with all functional mobility. Normal [facility] MRI Brain w/o Contraston MRI Brain [...] SID Technologist: JASPREET Technical Comments None Normal [facility] Monitor Recordon 07-11-2023 Monitor Record [id number]#1. 00TIFF Normal [facility] Monitor Record [id number] 20 [id number]#1. 00TIFF Normal [facility] Monitor Record [id number] 20 [id number]#1. 00TIFF Normal [facility] Monitor Record [id number] 20 [id number]#1. 00TIFF Normal [facility] Progress Note-Physicianon Progress Note-Physician Assessment/Plan 1. [...] Remote history of lower back surgery at [facility]. Patient is on Zanaflex we will continue [...] (07/11/23 05:47:00) (more content not included)... Normal [facility] Comment on above: Result Comment: Elec tronically Signed By: Rimma Paez\.br\Date and Time Signed: 07/11/23 12:23 EST\.br\Electronically Co-Signed By: HARPER RODRIGUEZ, Valente\.br\Date and Time Co-Signed: 07/11/23 14:40 EST RAD - MRI Screening Formon 1 09-11-2022 RAD - MRI Screening Form [id number]#1.0 0TIFF Normal [facility] Sed Rate Automatedon 023 ESR (Bld) [Velocity] 46 mm/h High 0-34 [facility] Comment on above: Performed By: #### 1 4523895, 8102270, 4522127, 3399252, 95083325 #### [facility] [address] [place] [address] TSH With T4fr Reflexon 07-11 TSH Qn 0.78 m[IU]/L Normal 0.34-5.60 [facility] Comment on above: Performed By: #### 1 8754942, 4887785, 8971131, 9681343, 92206937 #### [facility] [address] [place] [address] Troponin 6 Hr.on 07-11-2023 Troponin I.cardiac [Mass/Vol] 11.30 pg/mL Normal 10.10-27.10 [facility] Comment on above: Result Comment: The 95% CI (Confidence Interval) PPV (Positive Predictive Value) for myocardial infarction in females is 38 pg/mL, in males 51 pg/mL. The results should be used in conjunction with clinical conditions of myocardial infarction. (Access High Sensitivity Troponin I Instructions For Use, [facility], March 2018) Performed By: #### 1 3795906, 4146946, 7834726, 1218281, 82818243 #### [facility] [address] [place] [address] Troponin 9 Hr.on 07-11-2023 Troponin I.cardiac [Mass/Vol] 11.70 pg/mL Normal 10.10-27.10 [facility] Comment on above: Result Comment: The 95% CI (Confidence Interval) PPV (Positive Predictive Value) for myocardial infarction in females is 38 pg/mL, in males 51 pg/mL. The results should be used in conjunction with clinical conditions of myocardial infarction. (Access High Sensitivity Troponin I Instructions For Use, [facility], March 2018) Performed By: #### 1 5368739, 2109099, 4591266, 6864311, 63975754 #### [facility] [address] [place] [address] U Drug Screenon 07-11-2023 Amphetamines Screen method >1000 ng/mL Ql (U) Negative Normal Negative [facility] Comment on above: Result Comment: Nega tive Cutoff: <1000 ng/mL Performed By: #### 1 6289854, 4987705, 5808914, 3341823, 40599225 #### [facility] [address] [place] [address] Barbiturates Screen Ql (U) Negative Normal Negative [facility] Comment on above: Result Comment: Nega tive Cutoff: <200 ng/mL Performed By: #### 1 3263686, 2178076, 5327668, 7148143, 88828042 #### [facility] [address] [place] [address] Benzodiazepines Ql (U) Negative Normal Negative [facility] Comment on above: Result Comment: Nega tive Cutoff: <200 ng/mL Performed By: #### 1 9363517, 0693170, 3622686, 1983778, 83877700 #### [facility] [address] [place] [address] Cocaine Ql (U) Negative Normal Negative [facility] Comment on above: Result Comment: Nega tive Cutoff: <300 ng/mL Performed By: #### 1 4402079, 7260955, 5771784, 3849640, 77624245 #### [facility] [address] [place] [address] Opiates Screen Ql (U) Negative Normal Negative [facility] Comment on above: Result Comment: Nega tive Cutoff: <300 ng/mL Performed By: #### 1 4882832, 8484028, 2370076, 6531123, 79397306 #### [facility] [address] [place] [address] Phencyclidine Screen method >25 ng/mL Ql (U) Negative Normal Negative [facility] Comment on above: Result Comment: Nega tive Cutoff: <25 ng/mL These drug screen results are to be used for medical (i.e., treatment) purposes only. Unconfirmed drug screening results must not be used for non-medical purposes (e.g., employment testing, legal testing). Performed By: #### 1 1767052, 6911824, 1712716, 3122402, 29343673 #### [facility] [address] [place] [address] Tetrahydrocannabinol Screen method >50 ng/mL Ql (U) Negative Normal Negative [facility] Comment on above: Result Comment: Nega tive Cutoff: <50 ng/mL Performed By: #### 1 1395638, 8867898, 2432636, 1644708, 14732392 #### [facility] [address] [place] [address] Vit B12on 07-11-2023 Cobalamin (Vitamin B12) [Mass/Vol] 340 pg/mL Normal 50-1500 [facility] Comment on above: Performed By: #### 1 8632132, 5499018, 7502402, 3289831, 44584024 #### [facility] [address] [place] [address] XR Chest Single Viewon 07-11 XR Chest [...] mGy = na DAP = na Normal [facility] eGFRon 07-11-2023 GFR/1.73 sq M.predicted among non-blacks MDRD (S/P/Bld) [Vol rate/Area] 91 mL/min/1.73 m2 Normal >=59 [facility] Comment on above: Order Comment: Order added by Discern Expert. Result Comment: Store Promoter adelso kidney disease could be indicated at eGFR's of less than 60 mL/min/1.73m2. Kidney failure is indicated at less than 15 mL/min/1.73m2. Performed By: #### 1 5135294, 0765610, 4257039, 9487220, 95604840 #### [facility] [address] [place] [address] Auto Diffon 07-10-2023 Basophils/100 WBC (Bld) 0.4 % Normal 0.0-2.0 [facility] Comment on above: Order Comment: Order Added by Alethea Expert. Performed By: #### 1 0099297, 2995371, 2907889, 8137926, 98692774 #### [facility] [address] [place] [address] Basophils/Leukocytes Auto (Bld) [Pure # fraction] 0.0 E9/L Normal 0.0-0.2 [facility] Comment on above: Order Comment: Order Added by Alethea Expert. Performed By: #### 1 7201448, 0933905, 3937839, 0871006, 72154268 #### [facility] [address] [place] [address] Eosinophils/100 WBC (Bld) 2.4 % Normal 0.0-8.0 [facility] Comment on above: Order Comment: Order Added by Discern Expert. Performed By: #### 1 0673071, 7199374, 1871597, 3496709, 40902642 #### [facility] [address] [place] [address] Eosinophils/Leukocytes Auto (Bld) [Pure # fraction] 0.1 E9/L Normal 0.0-0.5 [facility] Comment on above: Order Comment: Order Added by Alethea Expert. Performed By: #### 1 1573722, 2918760, 1913385, 2847672, 23683367 #### [facility] [address] [place] [address] Lymphocytes/100 WBC (Bld) 40.0 % Normal 14.0-50.0 [facility] Comment on above: Order Comment: Order Added by Discern Expert. Performed By: #### 1 4266288, 5560179, 8744250, 8468434, 02086817 #### [facility] [address] [place] [address] Lymphocytes/Leukocytes Auto (Bld) [Pure # fraction] 2.2 E9/L Normal 1.0-4.0 [facility] Comment on above: Order Comment: Order Added by Discern Expert. Performed By: #### 1 6548013, 6949718, 3896278, 8767091, 02095955 #### [facility] [address] [place] [address] Monocytes/100 WBC (Bld) 9.2 % Normal 4.0-14.0 [facility] Comment on above: Order Comment: Order Added by Discern Expert. Performed By: #### 1 5727113, 6967139, 0923986, 6541103, 87613135 #### [facility] [address] [place] [address] Monocytes/Leukocytes Auto (Bld) [Pure # fraction] 0.5 E9/L Normal 0.2-1.0 [facility] Comment on above: Order Comment: Order Added by Discern Expert. Performed By: #### 1 0009552, 8261909, 2154286, 9589865, 54442475 #### [facility] [address] [place] [address] Neutrophils/100 WBC (Bld) 48.0 % Normal 36.0-75.0 [facility] Comment on above: Order Comment: Order Added by Discern Expert. Performed By: #### 1 4761149, 8761402, 7549402, 8897971, 72498670 #### [facility] [address] [place] [address] Neutrophils/Leukocytes Auto (Bld) [Pure # fraction] 2.7 E9/L Normal 2.0-7.5 [facility] Comment on above: Order Comment: Order Added by Discern Expert. Performed By: #### 1 1516571, 3919793, 5307132, 6014997, 48383470 #### [facility] [address] [place] [address] BMPon 07-10-2023 Creatinine [Mass/Vol] 0.6 mg/dL Normal 0.5-1.3 [facility] Comment on above: Performed By: #### 1 8172719, 5665295, 4588224, 0337113, 41800476 #### [facility] [address] [place] [address] Urea nitrogen [Mass/Vol] 15 mg/dL Normal 5-21 [facility] Comment on above: Performed By: #### 1 6488855, 3965656, 6293398, 5658845, 18935269 #### [facility] [address] [place] [address] Urea nitrogen/Creatinine [Mass ratio] 25 No Units High 10-20 [facility] Comment on above: Performed By: #### 1 6637080, 6903676, 2769827, 2477022, 95592686 #### [facility] [address] [place] [address] Anion gap [Moles/Vol] 11 mmol/L Normal 6-16 [facility] Comment on above: Performed By: #### 1 9675086, 5657718, 3458639, 6133246, 16845676 #### [facility] [address] [place] [address] Calcium [Mass/Vol] 8.8 mg/dL Low 8.9-11.1 [facility] Comment on above: Performed By: #### 1 6402676, 3378417, 8822815, 6238506, 62918451 #### [facility] [address] [place] [address] Chloride [Moles/Vol] 100 mmol/L Low 101-111 [facility] Comment on above: Performed By: #### 1 7182306, 0196966, 5727244, 6838036, 56829670 #### [facility] [address] [place] [address] CO2 [Moles/Vol] 26 mmol/L Normal 21-31 [facility] Comment on above: Performed By: #### 1 4974617, 6510371, 2151331, 4869722, 33596691 #### [facility] [address] [place] [address] Glucose [Mass/Vol] 93 mg/dL Normal 55-199 [facility] Comment on above: Result Comment: If t his glucose result represents a fasting glucose, interpretation should refer to the following reference range: 55-99 mg/dL Performed By: #### 1 2475842, 6418261, 0045373, 9305021, 95216395 #### [facility] [address] [place] [address] Potassium [Moles/Vol] 3.8 mmol/L Normal 3.5-5.3 [facility] Comment on above: Performed By: #### 1 6525387, 7417200, 2310500, 3013215, 07902660 #### [facility] [address] [place] [address] Sodium [Moles/Vol] 133 mmol/L Low 135-145 [facility] Comment on above: Performed By: #### 1 7012809, 7527080, 0940761, 2525548, 93575047 #### [facility] [address] [place] [address] CBC w/ Auto Diffon 3 Erythrocyte distribution width (RBC) [Ratio] 12.9 % Normal 10.9-14.2 [facility] Comment on above: Performed By: #### 1 2292307, 1480391, 9027577, 5184129, 55115938 #### [facility] [address] [place] [address] Hematocrit (Bld) [Volume fraction] 40.5 % Normal 34.0-46.0 [facility] Comment on above: Performed By: #### 1 8088068, 6404201, 3451514, 9363229, 26364994 #### [facility] [address] [place] [address] Hemoglobin (Bld) [Mass/Vol] 13.6 g/dL Normal 12.0-16.0 [facility] Comment on above: Performed By: #### 1 9944067, 9628129, 9180382, 0515849, 25682230 #### [facility] [address] [place] [address] MCH (RBC) [Entitic mass] 32.2 pg Normal 27.0-34.0 [facility] Comment on above: Performed By: #### 1 8444174, 5736916, 6073547, 9550551, 18121232 #### [facility] [address] [place] [address] MCHC (RBC) [Mass/Vol] 33.5 g/dL Normal 31.4-36.0 [facility] Comment on above: Performed By: #### 1 2232767, 3683196, 3905443, 6795616, 68797837 #### [facility] [address] [place] [address] MCV (RBC) [Entitic vol] 96.4 fL Normal 80.0-100.0 [facility] Comment on above: Performed By: #### 1 6747278, 3531732, 8398031, 2949178, 25876507 #### [facility] [address] [place] [address] Platelet mean volume (Bld) [Entitic vol] 8.0 fL Normal 6.4-10.8 [facility] Comment on above: Performed By: #### 1 6779080, 7280582, 9748053, 6649373, 69895767 #### [facility] [address] [place] [address] Platelets (Bld) [#/Vol] 186.0 E9/L Normal 150.0-500.0 [facility] Comment on above: Performed By: #### 1 [id number], 6853364, 8736635, 2852815, 05695113 #### [facility] [address] [place] [address] RBC (Bld) [#/Vol] 4.2 E12/L Low 4.3-5.9 [facility] Comment on above: Performed By: #### 1 5100826, 9206226, 4589997, 6802343, 40916417 #### [facility] [address] [place] [address] WBC corrected for nucl RBC Auto (Bld) [#/Vol] 5.6 E9/L Normal 4.0-11.0 [facility] Comment on above: Performed By: #### 1 9584427, 9987687, 2717951, 5492291, 66709163 #### [facility] [address] [place] [address] CHEMISTRYOrdered By: SYSTEM SYSTEM on 07-10-2023 Troponin [...] High Sensitivity Troponin I Instructions For Use, GOkey, March 2018) Troponin I.cardiac [Mass/Vol] 11.00 pg/mL Normal 10.10 - 27.10 pg/mL [facility]isol Comment on above: Interpretive Data: T he 95% CI (Confidence Interval) PPV (Positive Predictive Value) for myocardial infarction in females is 38 pg/mL, in males 51 pg/mL. The results should be used in conjunction with clinical conditions of myocardial infarction. (Access High Sensitivity Troponin I Instructions For Use, GOkey, March 2018) Amphetamines Screen method >1000 ng/mL [...] Lab ROP User on 07-10-2023 POC Username [email or web address] FLOR Invalid Interpretation Code [facility] POC Subsection Sodium [Moles/Vol] 596961720721 mmol/L Invalid Interpretation Code [facility] POC Subsection Sodium [Moles/Vol] 585233416 mmol/L Invalid Interpretation Code [facility] POC Subsection CT Head or Brain w/o [...] MD Transcribed by: SID Technologist: CYNTHIA Schultz [facility] Capillary Glucose POCOrdered By: Lab Rosalio on 07-10-2023 Glucose [Mass/Vol] 90 mg/dL Normal 55-99 [facility] P OC Subsection Comment on above: Result Comment: Анна aguirre RN/ Performed By: #### 1 8063210, 6712479, 7129733, 0906526, 86661556 #### [facility] [address] [place] [address] Consent for Treatmenton Consent for Treatment [id number]#1.0 0TIFF Normal [facility] ED Clinical Summaryon 2022 ED Clinical Summary [address] [address] ED Clinical Summary Person Information Name: CARIDAD CARIAS [place] Age: 82 Years : 1940 Sex: Female Language: St Lucian PCP: EDMOND PACHECO DO Marital Status: Phone: [phone] Visit Id: Visit Reason: Altered mental status; ALTERED MENTAL STATUS - VERY CONFUSED - FRONTAL HEADACHE Speciality: Acuity: 2 Enc Type: Observation Med Service: Emergency Arrival: 07/10/2023 16:39:36 Discharge: LOS: 000 03:48 Checkin: 07/10/2023 16:39:36 Checkout: 07/10/2023 20:27:17 Dispo Type: Admitted as IP to this [facility] EVENTS: Event Name Event Status Request Date/Time [...] 19:47:44 Patient Care Request 07/10/2023 19:47:44 ADDRESS: [address] [place] [phone] PHYS DOC NOTES: MEDICAL INFORMATION: Prescriptions Given: [...] 1:History of dementia; 2:Altered mental status Normal [facility] ED Note-Physicianon 07-10-20 ED Note-Physician Basic [...] but recovered [facility]. The patient lives alone at home [...] Allergies liang (more content not included)... Normal [facility] Comment on above: Result Comment: Elec tronically Signed By: Gera RODRIGUEZ, Ryan\.br\Date and Time Signed: 07/10/23 19:52 EST ED Patient Education Noteon 07-10-2023 ED Patient Education Note Normal [facility] ED Patient Summaryon 023 ED Patient Summary [place] [id number] Patient Discharge Instructions Person Information Name: CARIDAD CARIAS I Age: 82 Years Arrival Date: 07/10/2023 16:39:36 Discharge Diagnosis: 1:History of dementia; 2:Altered mental status Primary Care Physician: EDMOND PACHECO DO Provider Information Primary Provider: Ryan Boss MD Advanced Linux Programmer:None The exam and treatment you received in the Emergency Department were for an urgent problem and are not intended as complete care. It is important that you follow up with a doctor, nurse practitioner, or physician?s assistant site manager for ongoing care. If your symptoms become [...] opioids can be used to help relieve hnnvntip-jw-zxzldo pain and are often prescribed following a [...] be struggling with addiction, tell your health chronic care nurse and ask for guidance or call SAMHSA?S National Helpline at 7-400-852-ZQVM. v Source: [place] Department of Health and Human Services/Center for Disease Control & Prevention [facility] Medications Given: Medication (more content not included)... Normal [facility] HEMATOLOGYOrdered By: SYSTEM SYSTEM on 07-10-2023 Basophils/100 [...] 5.6 E9/L Normal 4.0 - 11.0 E9/L FT HemeAutoSS Troponin 0 Hr.on 07-10-2023 Troponin I.cardiac [Mass/Vol] 10.20 pg/mL Normal 10.10-27.10 [facility] Comment on above: Result Comment: The 95% CI (Confidence Interval) PPV (Positive Predictive Value) for myocardial infarction in females is 38 pg/mL, in males 51 pg/mL. The results should be used in conjunction with clinical conditions of myocardial infarction. (Access High Sensitivity Troponin I Instructions For Use, GOkey, March 2018) Performed By: #### 1 [id number], 7746334, 4637019, 9052669, 67018468 #### [facility] [address] [place] [address] Troponin 3 Hr.on 07-10-2023 Troponin I.cardiac [Mass/Vol] 11.00 pg/mL Normal 10.10-27.10 [facility] Comment on above: Result Comment: The 95% CI (Confidence Interval) PPV (Positive Predictive Value) for myocardial infarction in females is 38 pg/mL, in males 51 pg/mL. The results should be used in conjunction with clinical conditions of myocardial infarction. (Access High Sensitivity Troponin I Instructions For Use, GOkey, March 2018) Performed By: #### 1 [id number] ####[facility] [address] [place] [address] UA With Cult Reflexon 2022 Bilirubin Ql (U) Negative Normal Negative [facility] Comment on above: Performed By: #### 1 6363095 ####[facility] [address] [address] Clarity (U) CLEAR Normal Clear [facility] Comment on above: Performed By: #### 1 2400553 ####[address] [address] Color (U) YELLOW Normal Yellow [facility] Comment on above: Performed By: #### 1 8162214 ####[address] [address] Epithelial cells.squamous LM.HPF (Urine sed) [#/Area] 3-4 Normal 0-2 [facility] Comment on above: Performed By: #### 1 2518923 ####[address] [address] Glucose Test strip (U) [Mass/Vol] Negative Normal Negative [facility] Comment on above: Performed By: #### 1 2949276 ####[address] [address] Hemoglobin Ql (U) Negative Normal Negative [facility] Comment on above: Performed By: #### 1 5531448 ####[address] [address] Ketones (U) [Mass/Vol] Negative Normal Negative [facility] Comment on above: Performed By: #### 1 2712231 ####[address] [address] Letona.plasma/Letona. RBC (Bld) [Mass ratio] 0-3 Normal 0-3 [facility] Comment on above: Performed By: #### 1 5230295 ####[address] [address] Nitrite Ql (U) Negative Normal Negative [facility] Comment on above: Performed By: #### 1 3099532 ####[address] [address] pH (U) 6.5 [pH] Invalid Interpretation Code 5.0-9.0 [facility] Comment on above: Performed By: #### 1 4133873 ####[facility] [address] [place] [address] Protein (U) [Mass/Vol] Negative Normal Negative [facility] Comment on above: Performed By: #### 1 2690074 ####[facility] [address] [place] [address] Specific gravity (U) [Rel density] 1.010 Invalid Interpretation Code 1.005-1.030 [facility] Comment on above: Performed By: #### 1 0568907 ####[facility] [address] [place] [address] Type of Urine collection method Clean Catch Normal [facility] Comment on above: Performed By: #### 1 7203756 ####[address] [address] Urobilinogen Qn (U) 0.2 {Cuba'U}/dL Normal 0.0-1.0 [facility] Comment on above: Performed By: #### 1 9134058 ####[facility] [address] [place] [address] WBC Auto Ql (U) Negative Normal Negative [facility] Comment on above: Performed By: #### 1 4035999 ####[facility] [address] [place] [address] WBC LM.HPF (Urine sed) [#/Area] 0-5 Normal 0-5 [facility] Comment on above: Performed By: #### 1 9027524 ####[facility] [address] [place] [address] URINALYSISOrdered By: Kayy Alfaro on 07-10-2023 Bilirubin [...] PM) Normal Negative [facility] UA Auto SS Letona.plasma/Letona. RBC (Bld) [Mass ratio] 0-3 /HPF Normal [...] Desc Clean Catch (07/10/23 5:10 PM) Normal [facility] UA Auto SS Urobilinogen Qn (U) 0.4874943 {Cuba'U}/dL Normal 0.0 - 1.0 EU/dL [facility] UA Auto SS WBC Auto Ql (U) Negative (07/10/23 5:10 PM) Normal Negative [facility] UA Auto SS WBC LM.HPF (Urine sed) [#/Area] 0-5 /HPF Normal 0-5/HPF [facility] UA Auto SS eGFRon 07-10-2023 GFR/1.73 sq M.predicted among non-blacks MDRD (S/P/Bld) [Vol rate/Area] 91 mL/min/1.73 m2 Normal >=59 [facility] Comment on above: Order Comment: Order added by Discern Expert. Result Comment: Store Promoter adelso kidney disease could be indicated at eGFR's of less than 60 mL/min/1.73m2. Kidney failure is indicated at less than 15 mL/min/1.73m2. Performed By: #### 1 2370416, 7547874, 4510027, 0299750, 12689102 #### [facility] [address] [place] [address] Physician Orderon 07-08-2023 Physician Order [id number]#1.0 0TIFF Normal [facility] Nonvisit Note - PTon 023 Nonvisit Note - PT 06-27-23 hf, pt cxl in remind system, no reason available. Normal [facility] Auto Diffon 06-24-2023 Basophils/100 WBC (Bld) 0.5 % Normal 0.0-2.0 [facility] Comment on above: Order Comment: Order Added by Discern Expert. Performed By: #### 1 5467831, 0495879, 8842954, 5201793 ####[facility] [address] [place] [address] Basophils/Leukocytes Auto (Bld) [Pure # fraction] 0.0 E9/L Normal 0.0-0.2 [facility] Comment on above: Order Comment: Order Added by Discern Expert. Performed By: #### 1 3685187, 9636221, 4190367, 6205700 ####[place] [address] [place] [address] Eosinophils/100 WBC (Bld) 2.0 % Normal 0.0-8.0 [facility] Comment on above: Order Comment: Order Added by Discern Expert. Performed By: #### 1 8933208, 7354886, 1457850, 7572835 ####[facility] [address] [place] [address] Eosinophils/Leukocytes Auto (Bld) [Pure # fraction] 0.1 E9/L Normal 0.0-0.5 [facility] Comment on above: Order Comment: Order Added by Discern Expert. Performed By: #### 1 5080689, 3287636, 2967338, 0284178 ####[place] [address] [place] [address] Lymphocytes/100 WBC (Bld) 36.5 % Normal 14.0-50.0 [facility] Comment on above: Order Comment: Order Added by Discern Expert. Performed By: #### 1 8020044, 5576335, 3971670, 1673227 ####[place] [address] [place] [address] Lymphocytes/Leukocytes Auto (Bld) [Pure # fraction] 1.7 E9/L Normal 1.0-4.0 [facility] Comment on above: Order Comment: Order Added by Discern Expert. Performed By: #### 1 7057888, 0917605, 1020191, 4024828 ####[place] [address] [place] [address] Monocytes/100 WBC (Bld) 8.1 % Normal 4.0-14.0 [facility] Comment on above: Order Comment: Order Added by Alethea Expert. Performed By: #### 1 2940341, 5662829, 2096825, 5890062 ####[address] [address] Monocytes/Leukocytes Auto (Bld) [Pure # fraction] 0.4 E9/L Normal 0.2-1.0 [facility] Comment on above: Order Comment: Order Added by Alethea Expert. Performed By: #### 1 6939032, 6863768, 8411116, 5163146 ####[address] [address] Neutrophils/100 WBC (Bld) 52.9 % Normal 36.0-75.0 [facility] Comment on above: Order Comment: Order Added by Alethea Expert. Performed By: #### 1 3707071, 6690741, 4116375, 0177512 ####[place] [address] [place] [address] Neutrophils/Leukocytes Auto (Bld) [Pure # fraction] 2.5 E9/L Normal 2.0-7.5 [facility] Comment on above: Order Comment: Order Added by Alethea Expert. Performed By: #### 1 0044968, 6766585, 4680752, 7543540 ####[facility] [address] [place] [address] CBC w/ Auto Diffon 3 Erythrocyte distribution width (RBC) [Ratio] 13.1 % Normal 10.9-14.2 [facility] Comment on above: Performed By: #### 1 4004465, 1578272, 9976979, 9276953 ####[facility] [address] [place] [address] Hematocrit (Bld) [Volume fraction] 38.0 % Normal 34.0-46.0 [facility] Comment on above: Performed By: #### 1 3270785, 9077476, 4555100, 7755188 ####[place] [address] [place] [address] Hemoglobin (Bld) [Mass/Vol] 12.7 g/dL Normal 12.0-16.0 [facility] Comment on above: Performed By: #### 1 4272867, 5346467, 9381788, 0453744 ####[address] [address] MCH (RBC) [Entitic mass] 32.4 pg Normal 27.0-34.0 [facility] Comment on above: Performed By: #### 1 3514203, 4363048, 6179166, 7654705 ####[place] [address] [place] [address] MCHC (RBC) [Mass/Vol] 33.3 g/dL Normal 31.4-36.0 [facility] Comment on above: Performed By: #### 1 3026298, 9710451, 8231181, 9920833 ####[facility] [address] [place] [address] MCV (RBC) [Entitic vol] 97.2 fL Normal 80.0-100.0 [facility] Comment on above: Performed By: #### 1 8457842, 7769382, 7683783, 3774439 ####[facility] [address] [place] [address] Platelet mean volume (Bld) [Entitic vol] 7.1 fL Normal 6.4-10.8 [facility] Comment on above: Performed By: #### 1 5048145, 1783315, 2089007, 1634584 ####[facility] [address] [place] [address] Platelets (Bld) [#/Vol] 194.0 E9/L Normal 150.0-500.0 [facility] Comment on above: Performed By: #### 1 4199276, 4739481, 5931352, 2556241 ####[facility] [address] [place] [address] RBC (Bld) [#/Vol] 3.9 E12/L Low 4.3-5.9 [facility] Comment on above: Performed By: #### 1 2291089, 6022199, 3690057, 2244811 ####[facility] [address] [place] [address] WBC corrected for nucl RBC Auto (Bld) [#/Vol] 4.8 E9/L Normal 4.0-11.0 [facility] Comment on above: Performed By: #### 1 9633896, 9635433, 3840661, 1379698 ####[facility] [address] [place] [address] CHEMISTRYOrdered By: SYSTEM SYSTEM on 06-24-2023 Albumin [...] mg/dL Normal 0.0 - 1 .1 mg/dL [facility] Calcium [Mass/Vol] 8.9 mg/dL Normal 8.9 - 11. 1 mg/dL [facility] Chloride [Moles/Vol] 102 mmol/L Normal 101 - 1 11 mmol/L [facility] CO2 [Moles/Vol] 27 mmol/L Normal 21 - 31 mmol/L [facility] Creatinine [Mass/Vol] 0.8 mg/dL Normal 0.5 - 1.3 mg/dL [facility] GFR/1.73 sq M.predicted among non-blacks MDRD (S/P/Bld) [Vol rate/Area] 74 mL/min/1.73 m2 Normal >=59mL/min/ 1.73 m2 [facility] Chem S Comment on above: Interpretive Data: C hronic kidney disease could be indicated at eGFR's of less than 60 mL/min/1.73m2. Kidney failure is indicated at less than 15 mL/min/1.73m2. Globulin (S) [Mass/Vol] 4.4 g/dL High 1.4 - 4.0 gm/dL [facility] Glucose [Mass/Vol] 154 mg/dL Normal 55 - 199 mg/dL [facility] Comment on above: Interpretive Data: I f this glucose result represents a fasting glucose, interpretation should refer to the following reference range: 55-99 mg/dL Potassium [Moles/Vol] 3.9 mmol/L Normal 3.5 - 5.3 mmol/L [facility] Protein [Mass/Vol] 7.7 g/dL Normal 6.0 - 7.8 gm/dL [facility] Sodium [Moles/Vol] 136 mmol/L Normal 135 - 145 mmol/L [facility] Urea nitrogen [Mass/Vol] 15 mg/dL Normal 5 - 21 mg/dL [facility] Urea nitrogen/Creatinine [Mass ratio] 19 mg/mg Normal 10 - 20 [facility] CMPon 06-24-2023 Albumin [Mass/Vol] 3.3 g/dL Normal 3.3-5.0 [facility] Comment on above: Performed By: #### 1 9969236, 0646754, 5564663, 9059672, 20582179 #### [facility] [address] [place] [address] Albumin/Globulin (S) [Mass conc ratio] 0.8 Low 1.1-2.2 [facility] Comment on above: Performed By: #### 1 8045861, 7302360, 7612563, 8198300, 53092730 #### [facility] [address] [place] [address] ALP [Catalytic activity/Vol] 69 Int._Unit/L Normal 21-98 [facility] Comment on above: Performed By: #### 1 6126881, 7164745, 4558318, 7188432, 27740808 #### [facility] [address] [place] [address] ALT No additional P-5'-P [Catalytic activity/Vol] 22 Int._Unit/L Normal 6-46 [facility] Comment on above: Performed By: #### 1 0302945, 0604028, 3798900, 6417525, 61269638 #### [facility] [address] [place] [address] Anion gap [Moles/Vol] 11 mmol/L Normal 6-16 [facility] Comment on above: Performed By: #### 1 6194736, 2490890, 5610895, 5194211, 13433763 #### [facility] [address] [place] [address] AST [Catalytic activity/Vol] 37 Int._Unit/L Normal 5-43 [facility] Comment on above: Performed By: #### 1 6494869, 8386488, 2435385, 6317875, 11486117 #### [facility] [address] [place] [address] Bilirubin [Mass/Vol] 1.1 mg/dL Normal 0.0-1.1 [facility] Comment on above: Performed By: #### 1 6817244, 1602790, 0425777, 2284113, 20985328 #### [facility] [address] [place] [address] Calcium [Mass/Vol] 8.9 mg/dL Normal 8.9-11.1 [facility] Comment on above: Performed By: #### 1 4100832, 5951163, 6480797, 5605440, 03383699 #### [facility] [address] [place] [address] Chloride [Moles/Vol] 102 mmol/L Normal 101-111 [facility] Comment on above: Performed By: #### 1 1179142, 5122046, 6561195, 7406231, 58750684 #### [facility] [address] [place] [address] CO2 [Moles/Vol] 27 mmol/L Normal 21-31 [facility] Comment on above: Performed By: #### 1 9258087, 9221155, 8453642, 1471766, 52177408 #### [facility] [address] [place] [address] Creatinine [Mass/Vol] 0.8 mg/dL Normal 0.5-1.3 [facility] Comment on above: Performed By: #### 1 9328256, 6310294, 1410032, 9622088, 16694219 #### [facility] [address] [place] [address] Globulin (S) [Mass/Vol] 4.4 g/dL High 1.4-4.0 [facility] Comment on above: Performed By: #### 1 8456710, 4011678, 5010471, 0424226, 08383434 #### [facility] [address] [place] [address] Glucose [Mass/Vol] 154 mg/dL Normal 55-199 [facility] Comment on above: Result Comment: If t his glucose result represents a fasting glucose, interpretation should refer to the following reference range: 55-99 mg/dL Performed By: #### 1 8447776, 7616248, 2189056, 9232390, 70891359 #### [facility] [address] [place] [address] Potassium [Moles/Vol] 3.9 mmol/L Normal 3.5-5.3 [facility] Comment on above: Performed By: #### 1 6402777, 3529232, 8939170, 2968679, 74726276 #### [facility] [address] [place] [address] Protein [Mass/Vol] 7.7 g/dL Normal 6.0-7.8 [facility] Comment on above: Performed By: #### 1 1005830, 0064255, 3199583, 3804911, 97782944 #### [facility] [address] [place] [address] Sodium [Moles/Vol] 136 mmol/L Normal 135-145 [facility] Comment on above: Performed By: #### 1 1465808, 5292527, 2108361, 8851757, 63663060 #### [facility] [address] [place] [address] Urea nitrogen [Mass/Vol] 15 mg/dL Normal 5-21 [facility] Comment on above: Performed By: #### 1 7494274, 6408360, 4300465, 1300862, 51568753 #### [facility] [address] [place] [address] Urea nitrogen/Creatinine [Mass ratio] 19 No Units Normal 10-20 [facility] Comment on above: Performed By: #### 1 5647127, 2920335, 9945203, 6036398, 60420021 #### [facility] [address] [place] [address] Consent for Treatmenton 06-08 Consent for Treatment [id number] 0TIFF Normal [facility] HEMATOLOGYOrdered By: SYSTEM SYSTEM on 06-24-2023 [...] gm/dL [facility] HemeAutoSS MCH (RBC) [Entitic mass] 32.4 pg [...] 3.9 E12/L Low 4.3 - 5.9 E12/L [facility] HemeAutoSS WBC corrected for nucl RBC Auto (Bld) [#/Vol] 4.8 E9/L Normal 4.0 - 11.0 E9/L [facility] HemeAutoSS Physician Orderon 06-24-2023 Physician Order [id number]#1.0 0TIFF Normal [facility] eGFRon 06-24-2023 GFR/1.73 sq M.predicted among non-blacks MDRD (S/P/Bld) [Vol rate/Area] 74 mL/min/1.73 m2 Normal >=59 [facility] Comment on above: Order Comment: Order added by Discern Expert. Result Comment: Store Promoter adelso kidney disease could be indicated at eGFR's of less than 60 mL/min/1.73m2. Kidney failure is indicated at less than 15 mL/min/1.73m2. Performed By: #### 1 4547487, 5190327, 2840324, 3916167, 71381765 #### [facility] [address] [place] [address] C Urineon 06-23-2023 Bacteria identified Cx Nom (U) Microbiology PROCEDURE: Urine Culture [R1] SOURCE: U CleanCatch BODY SITE: COLLECTED DATE/TIME: 06/21/2023 07:00 EST RECEIVED DATE/TIME: 06/21/2023 10:22 EST START DATE/TIME: 06/21/2023 10:23 EST FREE TEXT SOURCE: EDMOND PACHECO DO, [...] Locations R1: This test was performed at: [facility], [address] [place] [address], [address] , , [facility] Comment on above: Performed By: #### 1 7357694, 6413627, 4279911, 0219500, 41917635 #### [facility] [address] [place] [address] Physician Orderon 06-21-2023 Physician Order [id number]#1.0 0TIFF Normal [facility] URINALYSISOrdered By: Lizet Saab on 06-21-2023 [...] Interpretation Code Negative [facility] UA Auto SS Letona.plasma/Letona. RBC (Bld) [Mass ratio] 0-3 /HPF Normal [...] [facility] UA Auto SS Urobilinogen Qn (U) 0.6820099 {Cuba'U}/dL Normal 0.0 - 1.0 EU/dL [facility] UA Auto SS WBC Auto Ql (U) 2+ *ABN* (06/21/23 7:00 AM) Invalid Interpretation Code Negative [facility] UA Auto SS Urinalysison 06-21-2023 Bacteria LM Ql (Urine sed) 2+ /HPF Abnormal Trace [facility] Comment on above: Performed By: #### 1 7752907, 7400213, 1308075, 9300137, 58698050 #### [facility] [address] [place] [address] Bilirubin Ql (U) 1+ Abnormal Negative [facility] Comment on above: Performed By: #### 1 8123479, 2530316, 8211703, 4696641, 94237704 #### [facility] [address] [place] [address] Calcium oxalate crystals LM Ql (Urine sed) Present Normal [facility] Comment on above: Performed By: #### 1 2215787, 0406119, 6652866, 3732682, 88859503 #### [facility] [address] [place] [address] Clarity (U) SL CLOUDY Abnormal Clear [facility] Comment on above: Performed By: #### 1 6767677, 3754906, 7018441, 3834095, [id number] #### [facility] [address] [place] [address] Color (U) YELLOW Normal Yellow [facility] Comment on above: Performed By: #### 1 4251972, 6185623, 5361640, 8016001, 03189363 #### [facility] [address] [place] [address] Epithelial cells.squamous LM.HPF (Urine sed) [#/Area] 0-2 Normal 0-2 [facility] Comment on above: Performed By: #### 1 8291613, 9621983, 1854093, 6829249, 68590966 #### [facility] [address] [place] [address] Glucose Test strip (U) [Mass/Vol] Negative Normal Negative [facility] Comment on above: Performed By: #### 1 4809022, 7716996, 2762435, 5661737, 18882130 #### [facility] [address] [place] [address] Hemoglobin Ql (U) Negative Normal Negative [facility] Comment on above: Performed By: #### 1 6423318, 0973446, 1334717, 3850648, 93555906 #### [facility] [address] [place] [address] Ketones (U) [Mass/Vol] TRACE Abnormal Negative [facility] Comment on above: Performed By: #### 1 7276874, 9506238, 2281379, 9194514, 15145822 #### [facility] [address] [place] [address] Letona.plasma/Letona. RBC (Bld) [Mass ratio] 0-3 Normal 0-3 [facility] Comment on above: Performed By: #### 1 1366554, 1337507, 8949070, 9977836, 20419881 #### [facility] [address] [place] [address] Mucus Ql (Urine sed) TRACE Normal [facility] Comment on above: Performed By: #### 1 6854742, 3160448, 2804496, 3075690, 32384939 #### [facility] [address] [place] [address] Nitrite Ql (U) Positive Abnormal Negative [facility] Comment on above: Performed By: #### 1 3018182, 1570898, 1803160, 4524097, 76007200 #### [facility] [address] [place] [address] pH (U) 5.5 [pH] Invalid Interpretation Code 5.0-9.0 [facility] Comment on above: Performed By: #### 1 8635790, 8397551, 3414408, 7901742, 08113711 #### [facility] [address] [place] [address] Protein (U) [Mass/Vol] Negative Normal Negative [facility] Comment on above: Performed By: #### 1 0156399, 3654866, 9411664, 3091709, 33531582 #### [facility] [address] [place] [address] Specific gravity (U) [Rel density] 1.025 Invalid Interpretation Code 1.005-1.030 [facility] Comment on above: Performed By: #### 1 9507305, 9023710, 9071559, 7824322, 01202579 #### [facility] [address] [place] [address] Type of Urine collection method Clean Catch Normal [facility] Comment on above: Performed By: #### 1 6288155, 6664768, 8271595, 9614274, 88432327 #### [facility] [address] [place], [place] [address] Urobilinogen Qn (U) 0.2 {Cuba'U}/dL Normal 0.0-1.0 [facility] Comment on above: Performed By: #### 1 2573534, 7800204, 0525866, 1648684, 87128001 #### [facility] [address] [place] [address] WBC Auto Ql (U) 2+ Abnormal Negative [facility] Comment on above: Performed By: #### 1 1124744, 7213799, 8335018, 9042337, 11676314 #### [facility] [address] [place] [address] UrinalysisOrdered By: Lizet Saab on 06-21-2023 WBC LM.HPF (Urine sed) [#/Area] /[HPF] Abnormal 0-5 [facility] Comment on above: Performed By: #### 1 4470521, 4085422, 7630478, 5764389, 34964307 #### [facility] [address] [facility] [place] [address] Nonvisit Note - PTon 023 Nonvisit Note - PT Patient showed up at 11:00 (30 minutes late). Her ride misunderstood the time and thought the appointment was at 11:00 instead of 10:30. Normal [facility] Nonvisit Note - PTon 023 Nonvisit Note - PT Transit called and said they would not be able to pick her up. Her daughter will out of town so she is unable to get her either. Normal [facility] PT - Assessmentson 3 PT - Assessments [id number] 04 [id number]#1. 00TIFF [facility] PT - Assessments [id number]#1. 00TIFF [facility] C Urineon 05-13-2023 Bacteria identified Cx Nom [...] Locations R1: This test was performed at: [facility], [address] [place] [address], [facility]- , , [facility] Comment on above: Performed By: #### 1 6337423, 8698433, 4282290, 5174726, 50129920 #### [facility] [address] [place] [address] Physician Orderon 05-11-2023 Physician Order [id number]#1.0 0CD:127 [facility] URINALYSISOrdered By: Cuate Rea on 05-11-2023 Bacteria LM Ql (Urine sed) 2+ /HPF Invalid Interpretation Code Trace/HPF [facility] Auto SS Bilirubin Ql [...] AM) Normal Negative [facility] UA Auto SS Letona.plasma/Letona. RBC (Bld) [Mass ratio] 0-3 /HPF Normal [...] Desc Clean Catch (05/11/23 10:10 AM) Normal [facility] UA Auto SS Urobilinogen Qn (U) 0.6405582 {Cuba'U}/dL Normal 0.0 - 1.0 EU/dL [facility] UA Auto SS WBC Auto Ql (U) Negative (05/11/23 10:10 AM) Normal Negative [facility] UA Auto SS WBC LM.HPF (Urine sed) [#/Area] 0-5 /HPF Normal 0-5/HPF [facility] UA Auto SS Urinalysison 05-11-2023 Bacteria LM Ql (Urine sed) 2+ /HPF Abnormal Trace [facility] Comment on above: Performed By: #### 1 9228146, 1367659, 5594764, 4712707, 92135621 #### [facility] [address] [place] [address] Bilirubin Ql (U) Negative Normal Negative [facility] Comment on above: Performed By: #### 1 9980199, 7086271, 7434267, 6420296, 23864843 #### [facility] [address] [place] [address] Clarity (U) SL CLOUDY Abnormal Clear [facility] Comment on above: Performed By: #### 1 5644382, 2155003, 1393843, 8488317, 01811415 #### [facility] [address] [place] [address] Color (U) YELLOW Normal Yellow [facility] Comment on above: Performed By: #### 1 1046882, 9548817, 0757800, 5071373, 59149493 #### [facility] [address] [place] [address] Epithelial cells.squamous LM.HPF (Urine sed) [#/Area] 0-2 Normal 0-2 [facility] Comment on above: Performed By: #### 1 9550509, 1625940, 9354085, 5028110, 84532688 #### [facility] [address] [place] [address] Glucose Test strip (U) [Mass/Vol] Negative Normal Negative [facility] Comment on above: Performed By: #### 1 9629915, 3995651, 7667286, 4814161, 62551733 #### [facility] [address] [place] [address] Hemoglobin Ql (U) Negative Normal Negative [facility] Comment on above: Performed By: #### 1 4501586, 8395381, 4374260, 6659014, 59811165 #### [facility] [address] [place] [address] Ketones (U) [Mass/Vol] Negative Normal Negative [facility] Comment on above: Performed By: #### 1 6873798, 9830922, 3269320, 0543843, 42660767 #### [facility] [address] [place] [address] Letona.plasma/Letona. RBC (Bld) [Mass ratio] 0-3 Normal 0-3 [facility] Comment on above: Performed By: #### 1 9334511, 1706660, 4170342, 4453894, 94473755 #### [facility] [address] [place] [address] Nitrite Ql (U) Negative Normal Negative [facility] Comment on above: Performed By: #### 1 6605923, 2537361, 6992070, 6323442, 35302996 #### [facility] [address] [place] [address] pH (U) 8.0 [pH] Invalid Interpretation Code 5.0-9.0 [facility] Comment on above: Performed By: #### 1 8032193, 3809796, 6830709, 1300301, 03600818 #### [facility] [address] [place], [place] [address] Protein (U) [Mass/Vol] Negative Normal Negative [facility] Comment on above: Performed By: #### 1 3055899, 7960722, 1687466, 4970377, 15833407 #### [facility] [address] [place], [place] [address] Specific gravity (U) [Rel density] 1.015 Invalid Interpretation Code 1.005-1.030 [facility] Comment on above: Performed By: #### 1 2669611, 4880046, 9622879, 3759528, 12849348 #### [facility] [address] [place], [place] [address] Type of Urine collection method Clean Catch Normal [facility] Comment on above: Performed By: #### 1 8539264, 3270247, 2678083, 2959267, 88497316 #### [facility] [address] [place], [place] [address] Urobilinogen Qn (U) 0.2 {Cuba'U}/dL Normal 0.0-1.0 [facility] Comment on above: Performed By: #### 1 3146326, 6822456, 0297445, 8499648, 86602689 #### [facility] [address] [place] [address] WBC Auto Ql (U) Negative Normal Negative [facility] Comment on above: Performed By: #### 1 7950580, 6178000, 9594030, 8514748, 44032858 #### [facility] [address] [place] [address] WBC LM.HPF (Urine sed) [#/Area] 0-5 Normal 0-5 [facility] Comment on above: Performed By: #### 1 3936245, 3111692, 7742930, 1610374, 64516607 #### [facility] [address] [place] [address] Nonvisit Note - PTon 023 Nonvisit Note - PT Daughter called and said that Caridad was dizzy. Normal [facility] Nonvisit Note - PTon 023 Nonvisit [...] any abnormal news or sx's from her care-resident caregiver that's there to help her at [...] HR: 48 bpm, & BP: 138/98. Normal [facility] PT - Assessmentson PT - Assessments [id number] 04 [id number]#1. 00CD:127 [facility] PT - Assessments [id number]#1. 00CD:127 [facility] PT - Home Exercise Programon 04-25-2023 PT - Home Exercise Program [id number]#1.0 0CD:127 Normal [facility] Alanine aminotransferase [En zymatic activity/volume] in Serum or PlasmaOrdered By: Carline Jackson on 04-05-2023 ALT [Catalytic activity/Vol] 23 U/L 7-52 [facility] Albumin [Mass/volume] in Ser um or Plasma by Bromocresol green (BCG) dye binding methoOrdered By: Carline Jackson on 04-05-2023 Albumin BCG dye [Mass/Vol] 3.5 g/dL 3.5-5.7 [facility] Alkaline phosphatase [Enzyma tic activity/volume] in Serum or PlasmaOrdered By: Carline Jackson on 04-05-2023 ALP [Catalytic activity/Vol] 69 U/L 34-104 [facility] Aspartate aminotransferase [ Enzymatic activity/volume] in Serum or PlasmaOrdered By: Carline Jackson on 04-05-2023 AST [Catalytic activity/Vol] 45 U/L 13-39 [facility] Basophils Auto (Bld) [#/Vol] Ordered By: Carline Jackson on 04-05-2023 Basophils (Bld) [#/Vol] 0.0 10*3/uL 0.0-0.2 [facility] Basophils/100 WBC Auto (Bld) Ordered By: Carline Jackson on 04-05-2023 Basophils/100 WBC (Bld) 0.7 % . F [facility] Bilirubin.total [Mass/volume ] in Serum or PlasmaOrdered By: Carline Jackson on 04-05-2023 Bilirubin [Mass/Vol] 1.0 mg/dL 0.3-1.0 [facility] Calcium [Mass/volume] in Ser um or PlasmaOrdered By: Carline Jackson on 04-05-2023 Calcium [Mass/Vol] 8.6 mg/dL 8.6-10.3 [facility] Carbon dioxide, total [Moles /volume] in Serum or PlasmaOrdered By: Carline Jackson on 04-05-2023 CO2 [Moles/Vol] 25.2 mmol/L 21.0-31.0 [facility] Chloride [Moles/volume] in S marianna or PlasmaOrdered By: Carline Jackson on 04-05-2023 Chloride [Moles/Vol] 99 mmol/L 98-107 [facility] Creatinine [Mass/volume] in Serum or PlasmaOrdered By: Carline Jackson on 04-05-2023 Creatinine [Mass/Vol] 0.95 mg/dL 0.60-1.20 [facility] Eosinophils Auto (Bld) [#/Vo l]Ordered By: Carline Jackson on 04-05-2023 Eosinophils (Bld) [#/Vol] 0.1 10*3/uL 0.0-0.45 [facility] Eosinophils/100 WBC Auto (Bl d)Ordered By: Carline Jackson on 04-05-2023 Eosinophils/100 WBC (Bld) 2.1 % . [facility] Erythrocyte distribution wid th Auto (RBC) [Ratio]Ordered By: Carline Jackson on 04-05-2023 Erythrocyte distribution width (RBC) [Ratio] 13.7 % 11.9-15.3 [facility] Erythrocyte sedimentation ra te by Photometric methodOrdered By: Carline Jackson on 04-05-2023 ESR Photometric method (Bld) [Velocity] 47 mm/hr 0-29 [facility] Globulin Calc (S) [Mass/Vol] Ordered By: Carline Jackson on 04-05-2023 Globulin (S) [Mass/Vol] 4.9 g/dL F [facility] Glucose [Mass/volume] in Ser um or PlasmaOrdered By: Carline Jackson on 04-05-2023 Glucose [Mass/Vol] 100 mg/dL 70-100 [facility] Comment on above: ADA recommended refe rence rangeRandom Glucose Reference Range is dependent on time and content of last meal. Glucose of more than 200 mg/dL in a nonstressed, ambulatory subject supports the diagnosis of Diabetes Mellitus. Hematocrit Auto (Bld) [Volum e fraction]Ordered By: Carline Jackson on 04-05-2023 Hematocrit (Bld) [Volume fraction] 38.5 % 34.0-46.4 [facility] Hemoglobin [Mass/volume] in BloodOrdered By: Carline Jackson on 04-05-2023 Hemoglobin (Bld) [Mass/Vol] 13.0 g/dL 11.8-15.4 [facility] Leukocytes [#/volume] correc kala for nucleated erythrocytes in Blood by Automated counOrdered By: Carline Jackson on 04-05-2023 WBC corrected for nucl RBC Auto (Bld) [#/Vol] 5.2 10*3/uL 3.8-11.6 [facility] Lymphocytes Auto (Bld) [#/Vo l]Ordered By: Carline Jackson on 04-05-2023 Lymphocytes (Bld) [#/Vol] 1.9 10*3/uL 1.00-4.8 [facility] Lymphocytes/100 WBC Auto (Bl d)Ordered By: Carline Jackson on 04-05-2023 Lymphocytes/100 WBC (Bld) 36.4 % . [facility] MCH Auto (RBC) [Entitic mass ]Ordered By: Carline Jackson on 04-05-2023 MCH (RBC) [Entitic mass] 32.3 pg 24.7-34.3 [facility] MCHC Auto (RBC) [Mass/Vol]Or dered By: Carline Jackson on 04-05-2023 MCHC (RBC) [Mass/Vol] 33.7 g/dL 32.0-35.0 [facility] MCV Auto (RBC) [Entitic vol] Ordered By: Carline Jackson on 04-05-2023 MCV (RBC) [Entitic vol] 95.9 fL 80-100 [facility] Monocytes Auto (Bld) [#/Vol] Ordered By: Carline Jackson on 04-05-2023 Monocytes (Bld) [#/Vol] 0.4 10*3/uL 0.0-0.8 [facility] Monocytes/100 WBC Auto (Bld) Ordered By: Carline Jackson on 04-05-2023 Monocytes/100 WBC (Bld) 6.8 % . F [facility] Neutrophils Auto (Bld) [#/Vo l]Ordered By: Carline Jackson on 04-05-2023 Neutrophils (Bld) [#/Vol] 2.8 10*3/uL 1.8-7.7 [facility] Neutrophils/100 WBC Auto (Bl d)Ordered By: Carline Jackson on 04-05-2023 Neutrophils/100 WBC (Bld) 54.0 % . [facility] No Panel InformationOrdered By: Carline Jackson on 04-05-2023 Estimated GFR (CKD-EPI) > 60.0 mL/Min [facility] Creatinine Clearance (Chem N/A [facility] Nucleated erythrocytes [Pres ence] in Blood by Automated countOrdered By: Carline Jackson on 04-05-2023 Nucleated RBC Auto Ql (Bld) 0.2 /100{WBC} 0-0.5 [facility] Platelet mean volume Auto (B ld) [Entitic vol]Ordered By: Carline Jackson on 04-05-2023 Platelet mean volume (Bld) [Entitic vol] 8.6 fL 6.3-10.7 [facility] Platelets Auto (Bld) [#/Vol] Ordered By: Carline Jackson on 04-05-2023 Platelets (Bld) [#/Vol] 186 10*3/uL 150-450 [facility] Potassium [Moles/volume] in Serum or PlasmaOrdered By: Carline Jackson on 04-05-2023 Potassium [Moles/Vol] See comment 3.5-5.1 [facility] Comment on above: Specimen hemolyzed, redraw requested Protein [Mass/volume] in Ser um or PlasmaOrdered By: Carline Jackson on 04-05-2023 Protein [Mass/Vol] 8.4 g/dL 6.4-8.9 [facility] RBC Auto (Bld) [#/Vol]Ordere d By: Carline Jackson on 04-05-2023 RBC (Bld) [#/Vol] 4.01 10*6/uL 3.60-5.00 [facility] Serum or plasma albumin/glob ulin mass ratioOrdered By: Carline Jackson on 04-05-2023 Albumin/Globulin [Mass ratio] 0.7 {ratio} [facility] Serum or plasma anion gap de terminationOrdered By: Carline Jackson on 04-05-2023 Anion gap [Moles/Vol] TNP [facility] Comment on above: Test not performed Sodium [Moles/volume] in Ser um or PlasmaOrdered By: Carline Jackson on 04-05-2023 Sodium [Moles/Vol] 130 mmol/L 136-145 [facility] Urea nitrogen [Mass/volume] in Serum or PlasmaOrdered By: Carline Jackson on 04-05-2023 Urea nitrogen [Mass/Vol] 20 mg/dL 03-01 [facility] WBC Auto (Bld) [#/Vol]Ordere d By: Carline Jackson on 04-05-2023 WBC (Bld) [#/Vol] 5.2 10*3/uL 3.8-11.6 [facility] C Urineon 04-01-2023 Bacteria identified Cx [...] Locations R1: This test was performed at: [facility], [address] [place] [address], [id number]- , [place], Normal [facility] Comment on above: Performed By: #### 2 [id number] ####[facility] [address] [place] [address] Nonvisit Note - PTon 023 Nonvisit Note - PT works better than tuesday per daughter Normal [facility] PT - Assessmentson 3 PT - Assessments [id number]#1. 00CD:127 Normal [facility] PT - Assessments [id number]#1. 00CD:127 Normal [facility] Physician Orderon 03-30-2023 Physician Order [id number]#1. 00CD:127 Normal [facility] UA With Cult Reflexon 2022 Bacteria LM Ql (Urine sed) 3+ /HPF Abnormal Trace [facility] Comment on above: Performed By: #### 1 2889785, 7310191, 3577457, 5515200, 76936290 #### [facility] [address] [place] [address] Bilirubin Ql (U) Negative Normal Negative [facility] Comment on above: Performed By: #### 1 7555980, 3518424, 1943783, 1402179, 13936814 #### [facility] [address] [place] [address] Clarity (U) CLOUDY Abnormal Clear [facility] Comment on above: Performed By: #### 1 3363334, 4191200, 9758705, 1836600, 14523850 #### [facility] [address] [place] [address] Color (U) YELLOW Normal Yellow [facility] Comment on above: Performed By: #### 1 2582600, 0415383, 9888056, 4326676, 59337866 #### [facility] [address] [place] [address] Epithelial cells.squamous LM.HPF (Urine sed) [#/Area] 0-2 Normal 0-2 [facility] Comment on above: Performed By: #### 1 2039835, 7770963, 3808362, 4224254, 41764780 #### [facility] [address] [place] [address] Glucose Test strip (U) [Mass/Vol] Negative Normal Negative [facility] Comment on above: Performed By: #### 1 4548058, 4896154, 2558371, 4032121, 94302946 #### [facility] [address] [place] [address] Hemoglobin Ql (U) Negative Normal Negative [facility] Comment on above: Performed By: #### 1 3979705, 2650723, 6943275, 1363388, 01450210 #### [facility] [address] [place] [address] Ketones (U) [Mass/Vol] Negative Normal Negative [facility] Comment on above: Performed By: #### 1 3259844, 2736013, 7685996, 4620376, 13847588 #### [facility] [address] [place] [address] Letona.plasma/Letona. RBC (Bld) [Mass ratio] 0-3 Normal 0-3 [facility] Comment on above: Performed By: #### 1 7032389, 2714816, 3339579, 6427813, 77847708 #### [facility] [address] [place] [address] Nitrite Ql (U) Positive Abnormal Negative [facility] Comment on above: Performed By: #### 1 1847114, 4749818, 0225663, 1510315, 47767918 #### [facility] [address] [place] [address] pH (U) 7.0 [pH] Invalid Interpretation Code 5.0-9.0 [facility] Comment on above: Performed By: #### 1 1794261, 5430627, 6499115, 8969146, 62959140 #### [facility] [address] [place] [address] Protein (U) [Mass/Vol] Negative Normal Negative [facility] Comment on above: Performed By: #### 1 5344379, 7287961, 8035659, 9445190, 83254690 #### [facility] [address] [place], [place] [address] Specific gravity (U) [Rel density] 1.020 Invalid Interpretation Code 1.005-1.030 [facility] Comment on above: Performed By: #### 1 9899095, 5678486, 9987792, 5046865, 49146846 #### [facility] [address] [place] [address] Type of Urine collection method Clean Catch Normal [facility] Comment on above: Performed By: #### 1 2018644, 0154703, 8981928, 2995942, 83244003 #### [facility] [address] [place] [address] Urobilinogen Qn (U) 1.0 {Cuba'U}/dL Normal 0.0-1.0 [facility] Comment on above: Performed By: #### 1 5686337, 4816091, 9093054, 9641419, 98275268 #### [facility] [address] [place] [address] WBC Auto Ql (U) 1+ Abnormal Negative [facility] Comment on above: Performed By: #### 1 3053848, 3629136, 8867610, 9686191, 97512782 #### [facility] [address] [place] [address] WBC LM.HPF (Urine sed) [#/Area] /[HPF] Abnormal 0-5 [facility] Comment on above: Performed By: #### 1 7080469, 1402090, 1079512, 6643282, 49088372 #### [facility] [address] [place] [address] URINALYSISOrdered By: Laura Sharp on 03-30-2023 Bacteria [...] AM) Normal Negative [facility] UA Auto SS Letona.plasma/Letona. RBC (Bld) [Mass ratio] 0-3 /HPF Normal [...] [facility] UA Auto SS Urobilinogen Qn (U) 1.1682999 {[place]uba'U}/dL Normal 0.0 - 1.0 EU/dL [facility] UA Auto SS WBC Auto Ql (U) 1+ *ABN* (03/30/23 4:45 AM) Invalid Interpretation Code Negative [facility] UA Auto SS WBC LM.HPF (Urine sed) [#/Area] /[HPF] Invalid Interpretation Code 0-5/HPF [facility] UA Auto SS Family Medicine Office/Clini c Noteon 03-24-2023 Family Medicine Office/Clinic Note Chief Complaint TCU Discharge History of Present Illness Patient is being seen today for a discharge visit. TCU ADMIT from [facility] 03/10?7 presented after fall at home and [...] diphtheria/pertussis, favian (more content not included)... Normal [facility] Comment on above: Result Comment: Elec tronically Signed By: Immanuel HOBSON, Nan Ibrahim\.anusha\Date and Time Signed: 03/24/23 11:48 EDT Family Medicine Office/Clini c Noteon 03-16-2023 Family Medicine Office/Clinic Note History of Present Illness TCU ADMIT from [facility] 03/10?7 presented after fall at home and [...] LAUREN Rheumatology Dr. 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 Normal [facility] Comment on above: Result Comment: Elec tronically Signed By: PASCALE RODRIGUEZ, Inderjit\.br\Date and Time Signed: 03/16/23 21:17 EDT Insurance Correspondence Off iceon 03-16-2023 Insurance Correspondence Office [id number] Normal [facility] CHEMISTRYOrdered By: SYSTEM SYSTEM on 03-11-2023 Anion gap [Moles/Vol] 5 mmol/L Low 6 - 16 mEq/L [facility] Remisol Calcium [Mass/Vol] 8.2 mg/dL Low 8.9 - 11. 1 mg/dL [facility] Chloride [Moles/Vol] 106 mmol/L Normal 101 - 1 11 mmol/L [facility] CO2 [Moles/Vol] 30 mmol/L Normal 21 - 31 mmol/L [facility] Creatinine [Mass/Vol] 0.7 mg/dL Normal 0.5 - 1.3 mg/dL [facility] Remisol GFR/1.73 sq M.predicted among non-blacks MDRD (S/P/Bld) [Vol rate/Area] 87 mL/min/1.73 m2 Normal >=59mL/min/ 1.73 m2 [facility] Chem S Glucose [Mass/Vol] 95 mg/dL Normal [...] 7.60 pg/mL Low 10.10 - 27.10 pg/mL [facility] Remisol Anion gap [Moles/Vol] 10 mmol/L Normal 6 - 16 mEq/L [facility] Remisol Calcium [Mass/Vol] 8.6 mg/dL Low 8.9 - 11. 1 mg/dL [facility] Remisol Chloride [Moles/Vol] 101 mmol/L Normal 101 - 1 11 mmol/L [facility] Remisol CO2 [Moles/Vol] 28 mmol/L Normal 21 - 31 mmol/L [facility] Remisol Creatinine [Mass/Vol] 0.7 mg/dL Normal 0.5 - 1.3 mg/dL [facility] Remisol GFR/1.73 sq M.predicted among non-blacks MDRD (S/P/Bld) [Vol rate/Area] 87 mL/min/1.73 m2 Normal >=59mL/min/ 1.73 m2 [facility] Chem S Glucose [Mass/Vol] 102 mg/dL Normal 55 - 199 mg/dL [facility] Remisol Potassium [Moles/Vol] 3.9 mmol/L Normal 3.5 - 5.3 mmol/L [facility] Remisol Sodium [Moles/Vol] 135 mmol/L Normal 135 - 145 mmol/L [facility] Remisol Urea nitrogen [Mass/Vol] 10 mg/dL Normal 5 - 21 mg/dL [facility] Remisol Urea nitrogen/Creatinine [Mass ratio] 14 mg/mg Normal 10 - 20 [facility] Remisol CHEMISTRYOrdered By: Lab ROP User on 03-10-2023 Glucose [Mass/Vol] 109 mg/dL High 55 - 99 mg/dL [facility] POC Subsection POC Device SN [id number] Invalid Interpretation Code [facility] POC Subsection POC User ID [id number] Invalid Interpretation Code [facility] POC Subsection POC Username NICOLE ELIDA Invalid Interpretation Code [facility] POC Subsection COAGULATIONOrdered By: Ricarda Saab on 03-10-2023 aPTT Coag (PPP) [Time] 35.2 s Normal 25.1 - 36.5 second(s) [facility] Auto Coag INR Coag (PPP) [Relative time] 1.1 {INR} Invalid Interpretation Code [facility] Auto Coag PT Coag (PPP) [Time] 12.4 s Normal 9.4 - 1 2.5 second(s) [facility] Auto Coag HEMATOLOGYOrdered By: SYSTEM SYSTEM on [...] PM) Normal Negative [facility] UA Auto SS Letona.plasma/Letona. RBC (Bld) [Mass ratio] 0-3 /HPF Normal [...] PM) Invalid Interpretation Code 1.005 - 1.030 [facility] UA Auto SS UA Spec Desc Clean Catch (03/10/23 12:34 PM) Normal [facility] UA Auto SS Urobilinogen Qn (U) [id number] {Cuba'U}/dL Invalid Interpretation Code 0.0 - 1.0 EU/dL [facility] UA Auto SS WBC Auto Ql (U) Negative (03/10/23 12:34 PM) Normal Negative [facility]A Auto SS WBC LM.HPF (Urine sed) [#/Area] 0-5 /HPF Normal 0-5/HPF [facility] UA Auto SS CNPNon 02-07-2023 CNPN Telephone ([facility]) CARIDAD CARIAS I ([id number]) 1940 F Date Time Provider Department 02/07/23 QUIANA WATERMAN [facility] During your visit today, we recorded the following information about you: Blaise Pathak 02/07/2023 12:09 PM Signed Dtr, Linh Osvaldo ALATORRE on [facility] Nurse Line on 02/10 @9:53A. Linh states pt was recently seen by the BODY BUILDER APPRENTICE. She is wondering if she can get a Report sent to pt PCP, Tobi Pacheco in [place], [place]. Linh is POA and requesting a return call back at . Thank you, Blaise Mohamud RN 02/07/2023 12:56 PM Signed RN called daughter Linh back, no answer, left a detailed message that we will need the fax number to sent the requested notes to the new PCP Tobi Pacheco, [place], [place]. Joyce Mohamud RN Allergies As of Date: 02/07/2023 Noted Allergy Reaction CORTISONE 05/20/2017 14 - Other: See Comments Comments: Spinal fluid suppressed MEDROL DOSE PACK (METHYLPREDNISOL*08/31 14 - Other: See Comments Comments: Severe headaches Date Reviewed: 01/19/2023 Reviewed by: Coty Duque RN - Fully Assessed Reason for Visit: Results [95] Cmt: Pt daughter is requesting a copy of report Nurse School - Other [3602] Prescriptions as of 02/07/2023 [...] eyes [H35.373]05/20/2017 PCO (posterior capsular opacification), bilater*11/16/2017 Sxl-czo-efwoliqbpce 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.529] 01/28/2020 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 Linh [...] visit notes to Dr. Tobi Pacheco to [facility] [phone]. Joyce Mohamud RN Allergies As of Date: 02/07/2023 Noted Allergy Reaction CORTISONE 05/20/2017 14 - Other: See Comments Comments: Spinal fluid suppressed MEDROL DOSE PACK (METHYLPREDNISOL*08/31 14 - Other: See Comments Comments: Severe headaches Date Reviewed: 01/19/2023 Reviewed by: Coty Duque RN - Fully Assessed Reason for Visit: Appointment [186] Cmt: Returned call and gave Fax Number to Dr. 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 Call [phone] and select option 0 for all other services AND request senior resources. When reviewing the list of communities, please reference the abbreviation gonzalez listed below. IL (Independent Living) AL (Assisted Living) AL-MC (Assisted Living with secure memory care unit) AL-MS (Assisted Living with memory care support) SN-Fdc LTC-MC (long-term care with secure memory care unit) LTC-MS (long-term care with memory support) [facility] (IL; AL; SN) *Pet friendly [address] [place] [address] [facility] (AL; SN) *Pets welcome [address] [place] [address] [facility] (AL-; SN) *Pet friendly for small pets [address] [place] [address] [facility] ([place]; AL; AL-MC; SN) *Possibly pet friendly [address] [facility] [place] [address] [facility] (MC; SN; LTC) [address] , [place] [address] [facility] ([place]; [facility]) [address] [facility] , [place], [place] [id number] [facility] (IL; AL; AL-MC; SN; LTC) [address] [place], [place] [address] [facility] (AL) [address] [place] [address] [facility] ([place]; AL; AL-MC; SN) [address] [place] [address] will remain available. 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 Normal [facility] Alanine aminotransferase [En zymatic activity/volume] in Serum or PlasmaOrdered By: Carline Jackson on 01-20-2023 ALT [Catalytic activity/Vol] 18 U/L 7-52 [facility] Albumin [Mass/volume] in Ser um or Plasma by Bromocresol green (BCG) dye binding methoOrdered By: Carline Jackson on 01-20-2023 Albumin BCG dye [Mass/Vol] 3.3 g/dL 3.5-5.7 [facility] Alkaline phosphatase [Enzyma tic activity/volume] in Serum or PlasmaOrdered By: Carline Jackson on 01-20-2023 ALP [Catalytic activity/Vol] 80 U/L 34-104 [facility] Aspartate aminotransferase [ Enzymatic activity/volume] in Serum or PlasmaOrdered By: Carline Jackson on 01-20-2023 AST [Catalytic activity/Vol] 38 U/L 13-39 [facility] Basophils Auto (Bld) [#/Vol] Ordered By: Carline Jackson on 01-20-2023 Basophils (Bld) [#/Vol] 0.0 10*3/uL 0.0-0.2 [facility] Basophils/100 WBC Auto (Bld) Ordered By: Carline Jackson on 01-20-2023 Basophils/100 WBC (Bld) 0.7 % . F [facility] Bilirubin.total [Mass/volume ] in Serum or PlasmaOrdered By: Carline Jackson on 01-20-2023 Bilirubin [Mass/Vol] 0.8 mg/dL 0.3-1.0 [facility] Calcium [Mass/volume] in Ser um or PlasmaOrdered By: Carline Jackson on 01-20-2023 Calcium [Mass/Vol] 8.4 mg/dL 8.6-10.3 [facility] Carbon dioxide, total [Moles /volume] in Serum or PlasmaOrdered By: Carline Jackson on 01-20-2023 CO2 [Moles/Vol] 26.8 mmol/L 21.0-31.0 [facility] Chloride [Moles/volume] in S marianna or PlasmaOrdered By: Carline Jackson on 01-20-2023 Chloride [Moles/Vol] 103 mmol/L 98-107 [facility] Creatinine [Mass/volume] in Serum or PlasmaOrdered By: Carline Jackson on 01-20-2023 Creatinine [Mass/Vol] 0.64 mg/dL 0.60-1.20 [facility] Eosinophils Auto (Bld) [#/Vo l]Ordered By: Carline Jackson on 01-20-2023 Eosinophils (Bld) [#/Vol] 0.2 10*3/uL 0.0-0.45 [facility] Eosinophils/100 WBC Auto (Bl d)Ordered By: Carline Jackson on 01-20-2023 Eosinophils/100 WBC (Bld) 3.4 % . [facility] Erythrocyte distribution wid th Auto (RBC) [Ratio]Ordered By: Carline Jackson on 01-20-2023 Erythrocyte distribution width (RBC) [Ratio] 13.5 % 11.9-15.3 [facility] Erythrocyte sedimentation ra te by Photometric methodOrdered By: Carline Jackson on 01-20-2023 ESR Photometric method (Bld) [Velocity] 42 mm/hr 0-29 [facility] Globulin Calc (S) [Mass/Vol] Ordered By: Carline Jackson on 01-20-2023 Globulin (S) [Mass/Vol] 4.4 g/dL F [facility] Glucose [Mass/volume] in Ser um or PlasmaOrdered By: Carline Jackson on 01-20-2023 Glucose [Mass/Vol] 79 mg/dL 70-100 [facility] Comment on above: ADA recommended refe rence rangeRandom Glucose Reference Range is dependent on time and content of last meal. Glucose of more than 200 mg/dL in a nonstressed, ambulatory subject supports the diagnosis of Diabetes Mellitus. Hematocrit Auto (Bld) [Volum e fraction]Ordered By: Carline Jackson on 01-20-2023 Hematocrit (Bld) [Volume fraction] 37.1 % 34.0-46.4 [facility] Hemoglobin [Mass/volume] in BloodOrdered By: Carline Jackson on 01-20-2023 Hemoglobin (Bld) [Mass/Vol] 12.5 g/dL 11.8-15.4 [facility] Leukocytes [#/volume] correc kala for nucleated erythrocytes in Blood by Automated counOrdered By: Carline Jackson on 01-20-2023 WBC corrected for nucl RBC Auto (Bld) [#/Vol] 4.8 10*3/uL 3.8-11.6 [facility] Lymphocytes Auto (Bld) [#/Vo l]Ordered By: Carline Jackson on 01-20-2023 Lymphocytes (Bld) [#/Vol] 2.0 10*3/uL 1.00-4.8 [facility] Lymphocytes/100 WBC Auto (Bl d)Ordered By: Carline Jackson on 01-20-2023 Lymphocytes/100 WBC (Bld) 41.0 % . [facility] MCH Auto (RBC) [Entitic mass ]Ordered By: Carline Jackson on 01-20-2023 MCH (RBC) [Entitic mass] 32.5 pg 24.7-34.3 [facility] MCHC Auto (RBC) [Mass/Vol]Or dered By: Carline Jackson on 01-20-2023 MCHC (RBC) [Mass/Vol] 33.8 g/dL 32.0-35.0 [facility] MCV Auto (RBC) [Entitic vol] Ordered By: Carline Jackson on 01-20-2023 MCV (RBC) [Entitic vol] 96.1 fL 80-100 F [facility] Monocytes Auto (Bld) [#/Vol] Ordered By: Carline Jackson on 01-20-2023 Monocytes (Bld) [#/Vol] 0.4 10*3/uL 0.0-0.8 [facility] Monocytes/100 WBC Auto (Bld) Ordered By: Carline Jackson on 01-20-2023 Monocytes/100 WBC (Bld) 7.9 % . F [facility] Neutrophils Auto (Bld) [#/Vo l]Ordered By: Carline Jackson on 01-20-2023 Neutrophils (Bld) [#/Vol] 2.2 10*3/uL 1.8-7.7 [facility] Neutrophils/100 WBC Auto (Bl d)Ordered By: Carline Jackson on 01-20-2023 Neutrophils/100 WBC (Bld) 47.0 % . [facility] No Panel InformationOrdered By: Carline Jackson on 01-20-2023 Estimated GFR (CKD-EPI) > 60.0 mL/Min [facility] Pharmacy Creatinine Clearance (Chem N/A [facility] Nucleated erythrocytes [Pres ence] in Blood by Automated countOrdered By: Carline Jackson on 01-20-2023 Nucleated RBC Auto Ql (Bld) 0.2 /100{WBC} 0-0.5 [facility] Platelet mean volume Auto (B ld) [Entitic vol]Ordered By: Carline Jackson on 01-20-2023 Platelet mean volume (Bld) [Entitic vol] 7.8 fL 6.3-10.7 [facility] Platelets Auto (Bld) [#/Vol] Ordered By: Carline Jackson on 01-20-2023 Platelets (Bld) [#/Vol] 174 10*3/uL 150-450 [facility] Potassium [Moles/volume] in Serum or PlasmaOrdered By: Carline Jackson on 01-20-2023 Potassium [Moles/Vol] 4.3 mmol/L 3.5-5.1 [facility] Protein [Mass/volume] in Ser um or PlasmaOrdered By: Carline Jcakson on 01-20-2023 Protein [Mass/Vol] 7.7 g/dL 6.4-8.9 [facility] RBC Auto (Bld) [#/Vol]Ordere d By: Carline Jackson on 01-20-2023 RBC (Bld) [#/Vol] 3.86 10*6/uL 3.60-5.00 [facility] [place] Serum or plasma albumin/glob ulin mass ratioOrdered By: Carline Jackson on 01-20-2023 Albumin/Globulin [Mass ratio] 0.8 {ratio} [facility] Serum or plasma anion gap de terminationOrdered By: Carline Jackson on 01-20-2023 Anion gap [Moles/Vol] 8.5 mmol/L 6.0-15.0 [facility] Sodium [Moles/volume] in Ser um or PlasmaOrdered By: Carline Jackson on 01-20-2023 Sodium [Moles/Vol] 134 mmol/L 136-145 [facility] Urea nitrogen [Mass/volume] in Serum or PlasmaOrdered By: Carline Jackson on 01-20-2023 Urea nitrogen [Mass/Vol] 17 mg/dL 7-25 [facility] WBC Auto (Bld) [#/Vol]Ordere d By: Carline Jackson on 01-20-2023 WBC (Bld) [#/Vol] 4.8 10*3/uL 3.8-11.6 [facility] CNOVon 01-19-2023 CNOV Office Visit ([facility] ) JVCARIDAD MANRIQUEZ I ([id number]) 1940 F Date Time Provider Department 01/19/23 12:30 PM QUIANA WATERMAN During your visit today, we recorded the following information about you: Pulse Blood pressure Weight 54/minute 160/81 84.5 kg Quiana Waterman APRN.GROUP UNDERWRITER 01/20/2023 12:16 PM Signed Date: January 19, 2023 CARIDAD SOLITARIONON [id number] [facility] [id number] [facility] INITIAL PATIENT EVALUATION Reason for Consult: Cognitive changes, Mobility decline, and Behavioral changes I had the pleasure of seeing this 82 year old year old female at the [facility]. The patient is referred by SELF Patient [...] Activities of Daily Living Lomas Index of [place] in Activities of Daily Living (A.D.L.) Bathing: [...] be done by another person. (1 POINT) [place] Instrumental Activities of Daily Living Scale (I.A.D.L.) Ability to Use Telephone: Dials a few well-known numbers (1 POINT) Shopping: Needs to be accompanied on any shopping trip (0 POINTS) Food Preparation: Needs to have meals prepare (more content not included)... Normal [facility] CNCOon 12-31-2022 CNCO Letter Text Normal [facility] Basophils Auto (Bld) [#/Vol] Ordered By: Carline Jackson on 09-23-2022 Basophils (Bld) [#/Vol] 0.0 10*3/uL 0.0-0.2 [facility] Basophils/100 WBC Auto (Bld) Ordered By: Carline Jackson on 09-23-2022 Basophils/100 WBC (Bld) 0.7 % . F [facility] Body fluid albumin measureme nt (mass/volume)Ordered By: Carline Jackson on 09-23-2022 Albumin (Body fld) [Mass/Vol] 2.8 g/dL 3.2-5.5 [facility] Creatinine and Glomerular fi ltration rate.predicted panel (S/P/Bld)Ordered By: Carline Jackson on 09-23-2022 Creatinine [Mass/Vol] 0.74 mg/dL 0.44-1.03 [facility] Eosinophils Auto (Bld) [#/Vo l]Ordered By: Carline Jackson on 09-23-2022 Eosinophils (Bld) [#/Vol] 0.2 10*3/uL 0.0-0.45 [facility] Eosinophils/100 WBC Auto (Bl d)Ordered By: Carline Jackson on 09-23-2022 Eosinophils/100 WBC (Bld) 3.7 % . [facility] Erythrocyte distribution wid th Auto (RBC) [Ratio]Ordered By: Carline Jackson on 09-23-2022 Erythrocyte distribution width (RBC) [Ratio] 13.7 % 11.9-15.3 [facility] Erythrocyte sedimentation ra te by Photometric methodOrdered By: Carline Jackson on 09-23-2022 ESR Photometric method (Bld) [Velocity] 39 mm/hr 0-29 [facility] Estimated glomerular filtrat ion rate (GFR) non- AmericanOrdered By: Carline Jackson on 09-23-2022 GFR/1.73 sq M.predicted among non-blacks MDRD (S/P/Bld) [Vol rate/Area] > 60 mL/Min [facility] Globulin Calc (S) [Mass/Vol] Ordered By: Carline Jackson on 09-23-2022 Globulin (S) [Mass/Vol] 4.4 g/dL F [facility] Hematocrit Auto (Bld) [Volum e fraction]Ordered By: Carline Jackson on 09-23-2022 Hematocrit (Bld) [Volume fraction] 38.0 % 34.0-46.4 [facility] Hemoglobin [Mass/volume] in BloodOrdered By: Carline Jackson on 09-23-2022 Hemoglobin (Bld) [Mass/Vol] 12.5 g/dL 11.8-15.4 [facility] Leukocytes [#/volume] correc kala for nucleated erythrocytes in Blood by Automated counOrdered By: Carline Jackson on 09-23-2022 WBC corrected for nucl RBC Auto (Bld) [#/Vol] 4.5 10*3/uL 3.8-11.6 [facility] Lymphocytes Auto (Bld) [#/Vo l]Ordered By: Carline Jackson on 09-23-2022 Lymphocytes (Bld) [#/Vol] 1.5 10*3/uL 1.00-4.8 [facility] Lymphocytes/100 WBC Auto (Bl d)Ordered By: Carline Jackson on 09-23-2022 Lymphocytes/100 WBC (Bld) 34.1 % . [facility] MCH Auto (RBC) [Entitic mass ]Ordered By: Carline Jackson on 09-23-2022 MCH (RBC) [Entitic mass] 31.7 pg 24.7-34.3 [facility] MCHC Auto (RBC) [Mass/Vol]Or dered By: Carline Jackson on 09-23-2022 MCHC (RBC) [Mass/Vol] 32.8 g/dL 32.0-35.0 [facility] MCV Auto (RBC) [Entitic vol] Ordered By: Carline Jackson on 09-23-2022 MCV (RBC) [Entitic vol] 96.7 fL 80-100 [facility] Monocytes Auto (Bld) [#/Vol] Ordered By: Carline Jackson on 09-23-2022 Monocytes (Bld) [#/Vol] 0.4 10*3/uL 0.0-0.8 [facility] Monocytes/100 WBC Auto (Bld) Ordered By: Carline Jackson on 09-23-2022 Monocytes/100 WBC (Bld) 8.5 % . [facility] Neutrophils Auto (Bld) [#/Vo l]Ordered By: Carline Jackson on 09-23-2022 Neutrophils (Bld) [#/Vol] 2.4 10*3/uL 1.8-7.7 [facility] Neutrophils/100 WBC Auto (Bl d)Ordered By: Carline Jackson on 09-23-2022 Neutrophils/100 WBC (Bld) 53.0 % . [facility] No Panel InformationOrdered By: Carline Jackson on 09-23-2022 Estimated GFR () > 60 mL/Min [facility] Comment on above: GFR estimated refere nce range: According to KDOQI guidelines, <60 ml/min/1.73m2 is sufficient to diagnose a patient with chronic kidney disease. Pharmacy Creatinine Clearance (Chem N/A [facility] Nucleated erythrocytes [Pres ence] in Blood by Automated countOrdered By: Carline Jackson on 09-23-2022 Nucleated RBC Auto Ql (Bld) 0.5 /100{WBC} 0-0.5 [facility] Platelet mean volume Auto (B ld) [Entitic vol]Ordered By: Carline Jackson on 09-23-2022 Platelet mean volume (Bld) [Entitic vol] 7.9 fL 6.3-10.7 [facility] Platelets Auto (Bld) [#/Vol] Ordered By: Carline Jackson on 09-23-2022 Platelets (Bld) [#/Vol] 187 10*3/uL 150-450 [facility] Protein [Mass/volume] in Ser um or PlasmaOrdered By: Carline Jackson on 09-23-2022 Protein [Mass/Vol] 7.2 g/dL 6.1-7.9 [facility] RBC Auto (Bld) [#/Vol]Ordere d By: Carline Jackson on 09-23-2022 RBC (Bld) [#/Vol] 3.93 10*6/uL 3.60-5.00 [facility] [place] Serum or plasma alanine robins otransferase measurement without P-5'-P (enzymatic activiOrdered By: Carline Jackson on 09-23-2022 ALT No additional P-5'-P [Catalytic activity/Vol] 26 U/L 10-60 [facility] Serum or plasma albumin/glob ulin mass ratioOrdered By: Carline Jackson on 09-23-2022 Albumin/Globulin [Mass ratio] 0.6 {ratio} [facility] Serum or plasma alkaline rolando sphatase measurement (enzymatic activity/volume)Ordered By: Carline Jackson on 09-23-2022 ALP [Catalytic activity/Vol] 63 U/L 32-92 [facility] Serum or plasma anion gap de terminationOrdered By: Carline Jackson on 09-23-2022 Anion gap [Moles/Vol] 11.3 mmol/L 6.0-15.0 [facility] Serum or plasma aspartate am inotransferase measurement (enzymatic activity/volume)Ordered By: Carline Jackson on 09-23-2022 AST [Catalytic activity/Vol] 50 U/L 10-42 [facility] Serum or plasma calcium saray urement (mass/volume)Ordered By: Carline Jackson on 09-23-2022 Calcium [Mass/Vol] 8.6 mg/dL 8.2-10.2 [facility] Serum or plasma chloride van surement (moles/volume)Ordered By: Carline Jackson on 09-23-2022 Chloride [Moles/Vol] 100 mmol/L 95-114 [facility] Serum or plasma glucose saray urement (mass/volume)Ordered By: Carline Jackson on 09-23-2022 Glucose [Mass/Vol] 105 mg/dL 70-100 [facility] Comment on above: ADA recommended refe rence rangeRandom Glucose Reference Range is dependent on time and content of last meal. Glucose of more than 200 mg/dL in a nonstressed, ambulatory subject supports the diagnosis of Diabetes Mellitus. Serum or plasma potassium me asurement (moles/volume)Ordered By: Carline Jackson on 09-23-2022 Potassium [Moles/Vol] 4.4 mmol/L 3.5-5.1 [facility] Serum or plasma sodium measu rement (moles/volume)Ordered By: Carline Jackson on 09-23-2022 Sodium [Moles/Vol] 134 mmol/L 136-146 [facility] Serum or plasma total biliru bin measurement (mass/volume)Ordered By: Carline Jackson on 09-23-2022 Bilirubin [Mass/Vol] 0.9 mg/dL 0.3-1.2 [facility] Serum or plasma total carbon dioxide measurement (moles/volume)Ordered By: Carline Jackson on 09-23-2022 CO2 [Moles/Vol] 27.1 mmol/L 22.0-30.0 [facility] Serum or plasma urea nitroge n measurement (mass/volume)Ordered By: Carline Jackson on 09-23-2022 Urea nitrogen [Mass/Vol] 10 mg/dL 9-23 [facility] WBC Auto (Bld) [#/Vol]Ordere d By: Carline Jackson on 09-23-2022 WBC (Bld) [#/Vol] 4.5 10*3/uL 3.8-11.6 [facility] Albumin [Mass/volume] in Ser um or PlasmaOrdered By: Sunny Taylor on 07-21-2022 Albumin [Mass/Vol] 2.6 g/dL 3.2-5.5 [facility] Basophils Auto (Bld) [#/Vol] Ordered By: Sunny Taylor on 07-21-2022 Basophils (Bld) [#/Vol] 0.0 10*3/uL 0.0-0.2 [facility] Basophils/100 WBC Auto (Bld) Ordered By: Sunny Taylor on 07-21-2022 Basophils/100 WBC (Bld) 0.6 % . [facility] Creatinine and Glomerular fi ltration rate.predicted panel (S/P/Bld)Ordered By: Sunny Taylor on 07-21-2022 Creatinine [Mass/Vol] 0.62 mg/dL 0.44-1.03 [facility] Eosinophils Auto (Bld) [#/Vo l]Ordered By: Sunny Taylor on 07-21-2022 Eosinophils (Bld) [#/Vol] 0.1 10*3/uL 0.0-0.45 [facility] Eosinophils/100 WBC Auto (Bl d)Ordered By: Sunny Taylor on 07-21-2022 Eosinophils/100 WBC (Bld) 1.7 % . [facility] Erythrocyte distribution wid th Auto (RBC) [Ratio]Ordered By: Sunny Taylor on 07-21-2022 Erythrocyte distribution width (RBC) [Ratio] 13.4 % 11.9-15.3 [facility] Erythrocyte sedimentation ra te by Photometric methodOrdered By: Sunny Taylor on 07-21-2022 ESR Photometric method (Bld) [Velocity] 38 mm/hr 0-29 [facility] Estimated glomerular filtrat ion rate (GFR) non- AmericanOrdered By: Sunny Taylor on 07-21-2022 GFR/1.73 sq M.predicted among non-blacks MDRD (S/P/Bld) [Vol rate/Area] > 60 mL/Min [facility] Globulin Calc (S) [Mass/Vol] Ordered By: Sunny Taylor on 07-21-2022 Globulin (S) [Mass/Vol] 4.3 g/dL [facility] Hematocrit Auto (Bld) [Volum e fraction]Ordered By: Sunny Taylor on 07-21-2022 Hematocrit (Bld) [Volume fraction] 37.5 % 34.0-46.4 [facility] Hemoglobin [Mass/volume] in BloodOrdered By: Sunny Taylor on 07-21-2022 Hemoglobin (Bld) [Mass/Vol] 12.5 g/dL 11.8-15.4 [facility] Leukocytes [#/volume] correc kala for nucleated erythrocytes in Blood by Automated counOrdered By: Sunny Taylor on 07-21-2022 WBC corrected for nucl RBC Auto (Bld) [#/Vol] 4.3 10*3/uL 3.8-11.6 [facility] Lymphocytes Auto (Bld) [#/Vo l]Ordered By: Sunny Taylor on 07-21-2022 Lymphocytes (Bld) [#/Vol] 1.7 10*3/uL 1.00-4.8 [facility] Lymphocytes/100 WBC Auto (Bl d)Ordered By: Sunny Taylor on 07-21-2022 Lymphocytes/100 WBC (Bld) 39.7 % . [facility] MCH Auto (RBC) [Entitic mass ]Ordered By: Sunny Taylor on 07-21-2022 MCH (RBC) [Entitic mass] 32.1 pg 24.7-34.3 [facility] MCHC Auto (RBC) [Mass/Vol]Or dered By: Sunny Taylor on 07-21-2022 MCHC (RBC) [Mass/Vol] 33.4 g/dL 32.0-35.0 [facility] MCV Auto (RBC) [Entitic vol] Ordered By: Sunny Taylor on 07-21-2022 MCV (RBC) [Entitic vol] 96.1 fL 80-100 [facility] Monocytes Auto (Bld) [#/Vol] Ordered By: Sunny Taylor on 07-21-2022 Monocytes (Bld) [#/Vol] 0.4 10*3/uL 0.0-0.8 [facility] Monocytes/100 WBC Auto (Bld) Ordered By: Sunny Taylor on 07-21-2022 Monocytes/100 WBC (Bld) 9.2 % . [facility] Neutrophils Auto (Bld) [#/Vo l]Ordered By: Sunny Taylor on 07-21-2022 Neutrophils (Bld) [#/Vol] 2.1 10*3/uL 1.8-7.7 [facility] Neutrophils/100 WBC Auto (Bl d)Ordered By: Sunny Taylor on 07-21-2022 Neutrophils/100 WBC (Bld) 48.8 % . [facility] No Panel InformationOrdered By: Sunny Taylor on 07-21-2022 Estimated GFR () > 60 mL/Min [facility] Comment on above: GFR estimated refere nce range: According to KDOQI guidelines, <60 ml/min/1.73m2 is sufficient to diagnose a patient with chronic kidney disease. Pharmacy Creatinine Clearance (Chem N/A [facility] Nucleated erythrocytes [Pres ence] in Blood by Automated countOrdered By: Sunny Taylor on 07-21-2022 Nucleated RBC Auto Ql (Bld) 0.2 /100{WBC} 0-0.5 [facility] Platelet mean volume Auto (B ld) [Entitic vol]Ordered By: Sunny Taylor on 07-21-2022 Platelet mean volume (Bld) [Entitic vol] 8.1 fL 6.3-10.7 [facility] Platelets Auto (Bld) [#/Vol] Ordered By: Sunny Taylor on 07-21-2022 Platelets (Bld) [#/Vol] 196 10*3/uL 150-450 [facility] Protein [Mass/volume] in Ser um or PlasmaOrdered By: Sunny Taylor on 07-21-2022 Protein [Mass/Vol] 6.9 g/dL 6.1-7.9 [facility] RBC Auto (Bld) [#/Vol]Ordere d By: Sunny Taylor on 07-21-2022 RBC (Bld) [#/Vol] 3.90 10*6/uL 3.60-5.00 [facility] Serum or plasma alanine robins otransferase measurement without P-5'-P (enzymatic activiOrdered By: Sunny Taylor on 07-21-2022 ALT No additional P-5'-P [Catalytic activity/Vol] 26 U/L 10-60 [facility] Serum or plasma albumin/glob ulin mass ratioOrdered By: Sunny Taylor on 07-21-2022 Albumin/Globulin [Mass ratio] 0.6 {ratio} [facility] Serum or plasma alkaline rolando sphatase measurement (enzymatic activity/volume)Ordered By: Sunny Taylor on 07-21-2022 ALP [Catalytic activity/Vol] 65 U/L 32-92 [facility] Serum or plasma anion gap de terminationOrdered By: Sunny Taylor on 07-21-2022 Anion gap [Moles/Vol] 9.3 mmol/L 6.0-15.0 [facility] Serum or plasma aspartate am inotransferase measurement (enzymatic activity/volume)Ordered By: Sunny Taylor on 07-21-2022 AST [Catalytic activity/Vol] 49 U/L 10-42 [facility] Serum or plasma calcium saray urement (mass/volume)Ordered By: Sunny Taylor on 07-21-2022 Calcium [Mass/Vol] 8.2 mg/dL 8.2-10.2 [facility] Serum or plasma chloride van surement (moles/volume)Ordered By: Sunny Taylor on 07-21-2022 Chloride [Moles/Vol] 100 mmol/L 95-114 [facility] Serum or plasma glucose saray urement (mass/volume)Ordered By: Sunny Taylor on 07-21-2022 Glucose [Mass/Vol] 77 mg/dL 70-100 [facility] Comment on above: ADA recommended refe rence rangeRandom Glucose Reference Range is dependent on time and content of last meal. Glucose of more than 200 mg/dL in a nonstressed, ambulatory subject supports the diagnosis of Diabetes Mellitus. Serum or plasma potassium me asurement (moles/volume)Ordered By: Sunny Taylor on 07-21-2022 Potassium [Moles/Vol] 4.9 mmol/L 3.5-5.1 [facility] Serum or plasma sodium measu rement (moles/volume)Ordered By: Sunny Taylor on 07-21-2022 Sodium [Moles/Vol] 131 mmol/L 136-146 [facility] Serum or plasma total biliru bin measurement (mass/volume)Ordered By: Sunny Taylor on 07-21-2022 Bilirubin [Mass/Vol] 0.7 mg/dL 0.3-1.2 [facility] Serum or plasma total carbon dioxide measurement (moles/volume)Ordered By: Sunny Taylor on 07-21-2022 CO2 [Moles/Vol] 26.6 mmol/L 22.0-30.0 [facility] Serum or plasma urea nitroge n measurement (mass/volume)Ordered By: Sunny Taylor on 07-21-2022 Urea nitrogen [Mass/Vol] 8 mg/dL 04-30 [facility] WBC Auto (Bld) [#/Vol]Ordere d By: Sunny Taylor on 07-21-2022 WBC (Bld) [#/Vol] 4.3 10*3/uL 3.8-11.6 [facility] CHEMISTRYOrdered By: SYSTEM SYSTEM on 06-09-2022 [...] (Bld) [Mass fraction] 5.3 % Normal <=5.9% [facility] HEMATOLOGYOrdered By: SYSTEM SYSTEM on 05-10-2022 [...] Cortisol [Mass/Vol] 12.9 ug/dL Invalid Interpretation Code [facility] SendOutsSS Comment on above: Result Comment: Liang isol AM 6.2 - 19.4 Cortisol PM 2.3 - 11.9 Performed at: [facility] [id number] PhD Santos Villareal CHEMISTRYOrdered By: SYSTEM SYSTEM [...] [facility] Remisol Ethanol [Mass/Vol] mg/dL Normal <=7mg/dL [facility] R emisol GFR/1.73 sq M.predicted among blacks MDRD (S/P/Bld) [Vol rate/Area] mL/min/1.73 m2 Normal >=59mL/min/ 1.73 m2 [facility] Chem S GFR/1.73 sq M.predicted among non-blacks MDRD (S/P/Bld) [Vol rate/Area] mL/min/1.73 m2 Normal >=59mL/min/ 1.73 m2 [facility] Chem S Globulin (S) [Mass/Vol] 4.4 g/dL [...] PM) Normal Negative [facility] UA Auto SS Letona.plasma/Letona. RBC (Bld) [Mass ratio] 0-3 /HPF Normal 0-3/HPF [facility] UA A uto SS Nitrite Ql (U) Negative (05/09/22 10:28 PM) Normal Negative [facility] UA Auto SS pH (U) 7.0 *NA* (05/09/22 10:28 PM) Invalid Interpretation Code 5.0 - 9.0 [facility] Auto SS Protein (U) [Mass/Vol] Negative (05/09/22 10:28 PM) Normal Negative [facility] UA Auto SS Specific gravity (U) [Rel density] 1.010 *NA* (05/09/22 10:28 PM) Invalid Interpretation Code 1.005 - 1.030 [facility] UA Auto SS UA Spec Desc Clean Catch (05/09/22 10:28 PM) Normal [facility] UA Auto SS Urobilinogen Qn (U) 0.2318083 {[place]'U}/dL Normal 0.0 - 1.0 EU/dL [facility] Auto SS WBC Auto Ql (U) Negative (05/09/22 10:28 PM) Normal Negative [facility] UA Auto SS WBC LM.HPF (Urine sed) [#/Area] 0-5 /HPF Normal 0-5/HPF [facility] UA Auto SS BLOOD BANKOrdered By: Iwona Verma on 12-13-2021 ABO/Rh Retype Interp Positive Invalid Interpretation Code [facility] BB Subsection CHEMISTRYOrdered By: SYSTEM SYSTEM on [...] Normal >=59mL/min/ 1.73 m2 [facility] Chem S Glucose [Mass/Vol] 97 mg/dL Normal [...] AM) Normal Negative [facility] UA Auto SS Letona.plasma/Letona. RBC (Bld) [Mass ratio] 0-3 /HPF Normal [...] Desc Random Urine (12/13/21 12:05 AM) Normal [facility] UA Auto SS Urobilinogen Qn (U) 0.4658134 {[place]'U}/dL Normal 0.0 - 1.0 EU/dL [facility] UA Auto SS WBC Auto Ql (U) Negative (12/13/21 12:05 AM) Normal Negative [facility] UA Auto SS WBC LM.HPF (Urine sed) [#/Area] 0-5 /HPF Normal 0-5/HPF [facility] UA Auto SS BLOOD BANKOrdered By: Kimberly cordoba on 12-12-2021 ABO/Rh Interp Positive Invalid Interpretation Code [facility] BB Subsection ABSC Gel Interp Negative (12/12/21 10:41 PM) Normal [facility] BB Subsection CHEMISTRYOrdered By: SYSTEM SYSTEM on [...] Result S_ETOH:161.[address] MONSON AT by STEVEN GARAY And Read Back [...] 1.0 % Normal 0.0 - 2.0 % [facility] Basophils/Leukocytes Auto (Bld) [Pure # fraction] 0.0 E9/L Normal 0.0 - 0.2 E9/L [facility] Eosinophils/100 WBC (Bld) 4.6 % Normal [...] 4.0 E12/L Low 4.3 - 5.9 E12/L [facility] HemeAutoSS WBC corrected for nucl RBC Auto (Bld) [#/Vol] 4.9 E9/L Normal 4.0 - 11.0 E9/L [facility]eAutoSS Basophils Auto (Bld) [#/Vol] Ordered By: Sunny Taylor on 12-09-2021 Basophils (Bld) [#/Vol] 0.1 10*3/uL 0.0-0.2 [facility] Basophils/100 WBC Auto (Bld) Ordered By: Sunny Taylor on 12-09-2021 Basophils/100 WBC (Bld) 2.5 % [facility] Blood hemoglobin measurement (mass/volume)Ordered By: Sunny Taylor on 12-09-2021 Hemoglobin (Bld) [Mass/Vol] 12.9 g/dL 11.8-15.4 [facility] Blood leukocytes automated c ount (number/volume)Ordered By: Sunny Taylor on 12-09-2021 WBC (Bld) [#/Vol] 3.9 10*3/uL 4.5-11.0 [facility] Body fluid albumin measureme nt (mass/volume)Ordered By: Sunny Taylor on 12-09-2021 Albumin (Body fld) [Mass/Vol] 2.7 g/dL 3.2-5.5 [facility] Creatinine and Glomerular fi ltration rate.predicted panel (S/P/Bld)Ordered By: Sunny Taylor on 12-09-2021 Creatinine [Mass/Vol] 0.63 mg/dL 0.44-1.03 [facility] Eosinophils Auto (Bld) [#/Vo l]Ordered By: Sunny Taylor on 12-09-2021 Eosinophils (Bld) [#/Vol] 0.2 10*3/uL 0.0-0.45 [facility] Eosinophils/100 WBC Auto (Bl d)Ordered By: Sunny Taylor on 12-09-2021 Eosinophils/100 WBC (Bld) 4.3 % [facility] Erythrocyte distribution wid th Auto (RBC) [Ratio]Ordered By: Sunny Taylor on 12-09-2021 Erythrocyte distribution width (RBC) [Ratio] 12.7 % 11.9-15.3 [facility] Estimated glomerular filtrat ion rate (GFR) non- AmericanOrdered By: Sunny Taylor on 12-09-2021 GFR/1.73 sq M.predicted among non-blacks MDRD (S/P/Bld) [Vol rate/Area] > 60 mL/Min [facility] Globulin Calc (S) [Mass/Vol] Ordered By: Sunny Taylor on 12-09-2021 Globulin (S) [Mass/Vol] 4.5 g/dL [facility] Hematocrit Auto (Bld) [Volum e fraction]Ordered By: Sunny Taylor on 12-09-2021 Hematocrit (Bld) [Volume fraction] 37.1 % 34.0-46.4 [facility] Laboratory - Hematology and Cell countsOrdered By: Sunny Taylor on 12-09-2021 Nucleated RBC/100 WBC (Bld) [Ratio] 0.3 % 0-0.5 [facility] Lymphocytes Auto (Bld) [#/Vo l]Ordered By: Sunny Taylor on 12-09-2021 Lymphocytes (Bld) [#/Vol] 1.2 10*3/uL 1.00-4.8 [facility] Lymphocytes/100 WBC Auto (Bl d)Ordered By: Sunny Taylor on 12-09-2021 Lymphocytes/100 WBC (Bld) 31.4 % [facility] MCH Auto (RBC) [Entitic mass ]Ordered By: Sunny Taylor on 12-09-2021 MCH (RBC) [Entitic mass] 34.2 pg 24.7-34.3 [facility] MCHC Auto (RBC) [Mass/Vol]Or dered By: Sunny Taylor on 12-09-2021 MCHC (RBC) [Mass/Vol] 34.7 g/dL 32.0-35.0 [facility] MCV Auto (RBC) [Entitic vol] Ordered By: Sunny Taylor on 12-09-2021 MCV (RBC) [Entitic vol] 98.5 fL 80-100 [facility] Monocytes Auto (Bld) [#/Vol] Ordered By: Sunny Taylor on 05-04-2022 Monocytes (Bld) [#/Vol] 0.3 10*3/uL 0.0-0.8 [facility] Monocytes/100 WBC Auto (Bld) Ordered By: Sunny Taylor on 12-09-2021 Monocytes/100 WBC (Bld) 8.4 % [facility] Neutrophils Auto (Bld) [#/Vo l]Ordered By: Sunny Taylor on 12-09-2021 Neutrophils (Bld) [#/Vol] 2.1 10*3/uL 1.8-7.7 [facility] Neutrophils/100 WBC Auto (Bl d)Ordered By: Sunny Taylor on 12-09-2021 Neutrophils/100 WBC (Bld) 53.4 % [facility] No Panel InformationOrdered By: Sunny Taylor on 12-09-2021 Estimated GFR () > 60 mL/Min [facility] Comment on above: GFR estimated refere nce range: According to KDOQI guidelines, <60 ml/min/1.73m2 is sufficient to diagnose a patient with chronic kidney disease. Pharmacy Creatinine Clearance (Chem N/A [facility] Platelet mean volume Auto (B ld) [Entitic vol]Ordered By: Sunny Taylor on 12-09-2021 Platelet mean volume (Bld) [Entitic vol] 8.9 fL 6.3-10.7 [facility] Platelets Auto (Bld) [#/Vol] Ordered By: Sunny Taylor on 12-09-2021 Platelets (Bld) [#/Vol] 174 10*3/uL 150-450 [facility] Protein [Mass/volume] in Ser um or PlasmaOrdered By: Sunny Taylor on 12-09-2021 Protein [Mass/Vol] 7.2 g/dL 6.1-7.9 [facility] RBC Auto (Bld) [#/Vol]Ordere d By: Sunny Taylor on 12-09-2021 RBC (Bld) [#/Vol] 3.76 10*6/uL 3.60-5.00 [facility] Serum or plasma alanine robins otransferase measurement without P-5'-P (enzymatic activiOrdered By: Sunny Taylor on 12-09-2021 ALT No additional P-5'-P [Catalytic activity/Vol] 24 U/L 10-60 [facility] Serum or plasma albumin/glob ulin mass ratioOrdered By: Sunny Taylor on 12-09-2021 Albumin/Globulin [Mass ratio] 0.6 {ratio} [facility] Serum or plasma alkaline rolando sphatase measurement (enzymatic activity/volume)Ordered By: Sunny Taylor on 12-09-2021 ALP [Catalytic activity/Vol] 71 U/L 32-92 [facility] Serum or plasma aspartate am inotransferase measurement (enzymatic activity/volume)Ordered By: Sunny Taylor on 12-09-2021 AST [Catalytic activity/Vol] 41 U/L 10-42 [facility] Serum or plasma calcium saray urement (mass/volume)Ordered By: Sunny Taylor on 12-09-2021 Calcium [Mass/Vol] 8.5 mg/dL 8.2-10.2 [facility] Serum or plasma chloride van surement (moles/volume)Ordered By: Sunny Taylor on 12-09-2021 Chloride [Moles/Vol] 102 mmol/L 95-114 [facility] Serum or plasma glucose saray urement (mass/volume)Ordered By: Sunny Taylor on 12-09-2021 Glucose [Mass/Vol] 99 mg/dL 70-100 [facility] Comment on above: ADA recommended refe [...] on 12-09-2021 Potassium [Moles/Vol] 4.2 mmol/L 3.5-5.1 [facility] Serum or plasma sodium measu rement (moles/volume)Ordered By: Sunny Taylor on 12-09-2021 Sodium [Moles/Vol] 134 mmol/L 136-146 [facility] Serum or plasma total biliru bin measurement (mass/volume)Ordered By: Sunny Taylor on 12-09-2021 Bilirubin [Mass/Vol] 0.8 mg/dL 0.3-1.2 [facility] Serum or plasma total carbon dioxide measurement (moles/volume)Ordered By: Sunny Taylor on 12-09-2021 CO2 [Moles/Vol] 24.5 mmol/L 22.0-30.0 [facility] Serum or plasma urea nitroge n measurement (mass/volume)Ordered By: Sunny Taylor on 12-09-2021 Urea nitrogen [Mass/Vol] 9 mg/dL 04-30 [facility] Complete Blood Counton 07-15 Erythrocyte distribution width (RBC) [Ratio] 12.6 % Normal 11.0-15.0 [facility] Comment on above: Performed By: #### C BC #### [facility] [address] [place], [place] [id number] Hematocrit (Bld) [Volume fraction] 42.2 % Normal 35.0-47.0 [facility] Comment on above: Performed By: #### C BC #### [facility] [address] [place], [place] [id number] Hemoglobin (Bld) [Mass/Vol] 13.2 g/dL Normal 11.6-15.5 [facility] Comment on above: Performed By: #### C BC #### [facility] [address] [place], [place] [id number] MCH (RBC) [Entitic mass] 34.5 pg High 27.0-33.0 [facility] Comment on above: Performed By: #### C BC #### [facility] [address] [place], [place] [id number] MCHC (RBC) [Mass/Vol] 31.3 g/dL Low 32.0-36.[address] [facility] Comment on above: Performed By: #### C BC #### [facility] [address] [place], [place] [id number] MCV (RBC) [Entitic vol] 110 fL High 80-100 N [facility] Comment on above: Performed By: #### C BC #### [facility] [address] [place], [place] [id number] Platelet mean volume (Bld) [Entitic vol] 9.90 fL Normal 7.50-12.50 [facility] Comment on above: Performed By: #### C BC #### [facility] [address] [place], [place] [id number] Platelets (Bld) [#/Vol] 227 10*3/uL Normal 140-400 [facility] Comment on above: Performed By: #### C BC #### [facility] [address] [place], [place] [id number] RBC (Bld) [#/Vol] 3.83 10*6/uL Low 3.90-5.[address] [facility] Comment on above: Performed By: #### C BC #### [facility] [address] [place], [place] [id number] RDW-SD 50.3 fL High 37.0-50.0 [facility] Comment on above: Performed By: #### C BC #### [facility] [address] [place], [place] [id number] WBC (Bld) [#/Vol] 5.7 10*3/uL Normal 3.8-11.0 [facility] Comment on above: Performed By: #### C BC #### [facility] [address] [place], [place] [id number] Q - LAUREN SCREEN IFA W/RFL TIT ER IFAon 07-10-2021 LAUREN SCREEN, IFA Positive Abnormal NEGATIVE [facility] Comment on above: Order Comment: [facility] performed at: QPT, [facility], [address] [facility], [address] [facility], [place], [address], Meter Reading Clerk: Donavan Moser MD [facility] Date/Time: [facility] [...] indicated. For additional information, please refer to http://education.[employer]/faq/EAQ223 (This link is being provided for informational/ educational purposes only.) Performed By: #### 1 0231A, ESR, %17661, TSH, 249X #### [facility] [address] [place] [address] Q - LAUREN TITER/PATTERNon LAUREN PATTERN Nuclear, Homogeneous Abnormal [facility] [place] [employer] Comment on above: Order Comment: [facility] performed at: [employer] [employer] [facility], [address] , [address] [place] [address], [phone], Meter Reading Clerk: Donavan Moser MD [facility] Date/Time: [facility] Results Received Date/Time: [facility] Reported Date/Time: FASTING: NO Result Comment: Homo geneous pattern is associated with systemic lupus erythematosus (SLE), drug-induced lupus and juvenile idiopathic arthritis. AC-1: Homogeneous International Consensus on LAUREN Patterns (https://doi.org/10.1515/nwnm-6956-7515) Performed By: #### 1 0231A, ESR, %82646, TSH, 249X #### [facility] [address] [place] [address] LAUREN PATTERN Nuclear, Speckled Abnormal [place] [employer] Comment on above: Order Comment: [facility] performed at: [employer] [employer] [facility], [address], [address] [place], [phone], Meter Reading Clerk: Donavan Moser MD [facility] Date/Time: [facility] Results Received Date/Time: [facility] Reported Date/Time: FASTING: NO Result Comment: Spec kled pattern is associated with mixed connective tissue disease (MCTD), systemic lupus erythematosus (SLE), Sjogren's syndrome, dermatomyositis, and systemic sclerosis/polymyositis overlap. AC-2,4,5,29: Speckled International Consensus on LAUREN Patterns (https://doi.org/10.1515/zaja-1815-2931) Performed By: #### 1 0231A, ESR, %94490, TSH, 249X #### [facility] [address] [place] [address] LAUREN TITER 1:80 High [facility] Comment on above: Order Comment: [facility] performed at: [employer] [employer] [facility], [address] [place] [address], [address] [place] [address], [address] [place] [address], Meter Reading Clerk: Donavan Moser MD [facility] Date/Time: [facility] Results Received Date/Time: [facility] Reported Date/Time: FASTING: NO Result Comment: A lo w level LAUREN titer may be present in pre-clinical autoimmune diseases and normal individuals. Reference Range <1:40 Negative 1:40-1:80 Low Antibody Level >1:80 Elevated Antibody Level Performed By: #### 1 0231A, ESR, %21091, TSH, 249X #### [facility] [address] [place] [address] LAUREN TITER > OR = 1:1280 Abnormal [facility] Comment on above: Order Comment: [facility] performed at: [employer] [facility], [address] [place] [address], [address] [place] [address], [address] [place] [address], Meter Reading Clerk: Donavan Moser MD [facility] Date/Time: [facility] Results Received Date/Time: [facility] Reported Date/Time: FASTING: NO Result Comment: Refe rence Range <1:40 Negative 1:40-1:80 Low Antibody Level >1:80 Elevated Antibody Level Performed By: #### 1 0231A, ESR, %04529, TSH, 249X #### [facility] [address] [place] [address] Q - COMPREHENSIVE METABOLIC PANEL W/EGFRon 07-10-2021 Albumin [Mass/Vol] 3.4 g/dL Low 3.6-5.1 [facility] Comment on above: Order Comment: [facility] performed at: [facility], [facility], [address] [place] [address], [address] [place] [address], [address] [place] [address], Meter Reading Clerk: Donavan Moser MD [facility] Date/Time: [facility] Results Received Date/Time: [facility] Reported Date/Time: FASTING: NO Performed By: #### 1 0231A, ESR, %31170, TSH, 249X #### [facility] [address] [place] [address] Albumin/Globulin [Mass ratio] 0.9 {ratio} Low 1.0-2.5 [facility] [employer] Comment on above: Order Comment: [facility] performed at: [facility], [employer] [facility], [address] [place] [address], [address] [place] [address], [address] [place] [address], Meter Reading Clerk: Donavan Moser MD [facility] Date/Time: [facility] Results Received Date/Time: [facility] Reported Date/Time: FASTING: NO Performed By: #### 1 0231A, ESR, %79847, TSH, 249X #### [facility] [address] [place] [address] ALP [Catalytic activity/Vol] 76 U/L Normal 37-153 [facility] [employer] Comment on above: Order Comment: [facility] performed at: [facility], [employer] [facility], [address] [place] [address], [address] [place] [address], [address] [place] [address], Meter Reading Clerk: Donavan Moser MD [facility] Date/Time: [facility] Results Received Date/Time: [facility] Reported Date/Time: FASTING: NO Performed By: #### 1 0231A, ESR, %02757, TSH, 249X #### [facility] [address] [place] [address] ALT [Catalytic activity/Vol] 16 U/L Normal 6-29 [place] [facility] Comment on above: Order Comment: [facility] Testing performed at: [facility], [facility], [address] [place] [address], [address] [place] [address], [address] [place] [address], Meter Reading Clerk: Donavan Moser MD [facility] Collection Date/Time: [facility] Results Received Date/Time: [facility] Reported Date/Time: FASTING: NO Performed By: #### 1 0231A, ESR, %[id number], TSH, 249X #### [facility] Default [address] [place] [address] AST [Catalytic activity/Vol] 25 U/L Normal 10-35 [facility] Comment on above: Order Comment: [facility] Testing performed at: [facility], [facility], [address] [place] [address], [address] [place] [address], [id number], Meter Reading Clerk: Donavan Moser MD [facility] Collection Date/Time: [facility] Results Received Date/Time: [facility] Reported Date/Time: FASTING: NO Performed By: #### 1 0231A, ESR, %[id number], TSH, 249X #### [facility] Default [address] [place] [address] Bilirubin [Mass/Vol] 0.9 mg/dL Normal 0.2-1.2 [facility] Comment on above: Order Comment: [facility] Testing performed at: [facility], [address] [place] [address], [address] [place] [address], [address] [place] [address], Meter Reading Clerk: Donavan Moser MD [facility] Collection Date/Time: [facility] Results Received Date/Time: [facility] Reported Date/Time: FASTING: NO Performed By: #### 1 0231A, ESR, %[id number], TSH, 249X #### [facility] Default [address] [place] [address] BUN/CREA 20 NOT APPLICABLE Normal 6-22 [facility] Comment on above: Order Comment: [facility] performed at: [facility], [address] [place] [address], [address] [place] [address], [phone], Meter Reading Clerk: Donavan Moser MD [facility] Collection Date/Time: [facility] Results Received Date/Time: [facility] Reported Date/Time: FASTING: NO Performed By: #### 1 0231A, ESR, %[id number], TSH, 249X #### [facility] Default [address] [place] [address] Calcium [Mass/Vol] 8.5 mg/dL Low 8.6-10.4 [facility] Specialist Comment on above: Order Comment: [facility] Testing performed at: [facility], [address] [place] [address], [address] [place] [address], [address] [place] [address], Meter Reading Clerk: Donavan Moser MD [facility] Collection Date/Time: [facility] Results Received Date/Time: [facility] Reported Date/Time: FASTING: NO Performed By: #### 1 0231A, ESR, %[id number], TSH, 249X #### [facility] [address] [place] [address] Chloride [Moles/Vol] 99 mmol/L Normal 98-110 [facility] Specialist Comment on above: Order Comment: [facility] Testing performed at: [facility], [address] [place] [address], [address] [place] [address], [address] [place] [address], Meter Reading Clerk: Donavan Moser MD [facility] Collection Date/Time: [facility] Results Received Date/Time: [facility] Reported Date/Time: FASTING: NO Performed By: #### 1 0231A, ESR, %74264, TSH, 249X #### [facility] [address] [place] [address] CO2 [Moles/Vol] 28 mmol/L Normal 20-32 [facility] [employer] Comment on above: Order Comment: [facility] Testing performed at: [facility], [address] [place] [address], [address] [place] [address], [address] [place] [address], Meter Reading Clerk: Donavan Moser MD [facility] Collection Date/Time: [facility] Results Received Date/Time: [facility] Reported Date/Time: FASTING: NO Performed By: #### 1 0231A, ESR, %28948, TSH, 249X #### [facility] [address] [place] [address] Creatinine [Mass/Vol] 0.61 mg/dL Normal 0.60-0.[address] [facility] Comment on above: Order Comment: [facility] Testing performed at: [facility], [address] [place] [address], [address] [place] [address], [address] [place] [address], Meter Reading Clerk: Donavan Moser MD [facility] Collection Date/Time: [facility] Results Received Date/Time: [facility] Reported Date/Time: FASTING: NO Result Comment: For patients >49 years of age, the reference limit for Creatinine is approximately 13% higher for people identified as -[place]. Performed By: #### 1 0231A, ESR, %01275, TSH, 249X #### [facility] [address] [place] [address] eGFRAA 115 mL/min/1.73m2 Normal > OR = 60 [facility] Comment on above: Order Comment: [facility] Testing performed at: [facility], [address] [place] [address], [address] [place] [address], [address] [place] [address], Meter Reading Clerk: Donavan Moser MD [facility] Collection Date/Time: [facility] Results Received Date/Time: [facility] Reported Date/Time: FASTING: NO Performed By: #### 1 0231A, ESR, %76454, TSH, 249X #### [facility] [address] [place] [address] eGFRNAA 95 mL/min/1.73m2 Normal > OR = 60 [facility] Comment on above: Order Comment: [facility] Testing performed at: [facility], [address] [facility], [address] [place] [address], [address] [place] [address], Meter Reading Clerk: Donavan Moser MD [facility] Collection Date/Time: [facility] Results Received Date/Time: [facility] Reported Date/Time: FASTING: NO Performed By: #### 1 0231A, ESR, %35816, TSH, 249X #### [facility] [address] [place] [address] Globulin (S) [Mass/Vol] 3.8 g/dL High 1.9-3.7 [facility] [employer] Machine Comment on above: Order Comment: [facility] Testing performed at: [facility], [address] [facility], [address] [place] [address], [address] [place] [address], Meter Reading Clerk: Donavan Moser MD [facility] Collection Date/Time: [facility] Results Received Date/Time: [facility] Reported Date/Time: FASTING: NO Performed By: #### 1 0231A, ESR, %24195, TSH, 249X #### [facility] [address] [place] [address] Glucose [Mass/Vol] 89 mg/dL Normal 65-[address] [facility] [employer] Machine Comment on above: Order Comment: [facility] Testing performed at: [facility], [address] [place] [address], [address] [place] [address], [address] [place] [address], Meter Reading Clerk: Donavan Moser MD [facility] Collection Date/Time: [facility] Results Received Date/Time: [facility] Reported Date/Time: FASTING: NO Result Comment: Non-fasting reference interval Performed By: #### 1 0231A, ESR, %20254, TSH, 249X #### [facility] [address] [place] [address] Potassium [Moles/Vol] 4.3 mmol/L Normal 3.5-5.3 [facility] [employer] Machine Comment on above: Order Comment: [facility] Testing performed at: [facility], [address] [facility], [address] [place] [address], [address] [place] [address], Meter Reading Clerk: Donavan Moser MD [facility] Collection Date/Time: [facility] Results Received Date/Time: [facility] Reported Date/Time: FASTING: NO Performed By: #### 1 0231A, ESR, %68479, TSH, 249X #### [facility] [address] [place] [address] Protein [Mass/Vol] 7.2 g/dL Normal 6.1-8.1 [facility] [place] [employer] Comment on above: Order Comment: [facility] Testing performed at: [facility], [address] [place] [address], [address] [place] [address], [address] [place] [address], Meter Reading Clerk: Donavan Moser MD [facility] Collection Date/Time: [facility] Results Received Date/Time: [facility] Reported Date/Time: FASTING: NO Performed By: #### 1 0231A, ESR, %13077, TSH, 249X #### [facility] [address] [place] [address] Sodium [Moles/Vol] 135 mmol/L Normal 135-146 [facility] [place] [employer] Comment on above: Order Comment: [facility] Testing performed at: [facility], [address] [place] [address], [address] [place] [address], [address] [place] [address], Meter Reading Clerk: Donavan Moser MD [facility] Collection Date/Time: [facility] Results Received Date/Time: [facility] Reported Date/Time: FASTING: NO Performed By: #### 1 0231A, ESR, %75095, TSH, 249X #### [facility] [address] [place] [address] Urea nitrogen [Mass/Vol] 12 mg/dL Normal 7-25 [facility] [employer] Comment on above: Order Comment: [facility] Testing performed at: [facility], [address] [place] [address], [address] [place] [address], [address] [place] [address], Meter Reading Clerk: Donavan Moser MD [facility] Collection Date/Time: [facility] Results Received Date/Time: [facility] Reported Date/Time: FASTING: NO Performed By: #### 1 0231A, ESR, %09234, TSH, 249X #### [facility] [address] [place] [address] RBC Sedimentation Rateon ESR (Bld) [Velocity] 77 mm/h High < OR = 30 [facility] Comment on above: Order Comment: [facility] Testing performed at: [facility], [address] [place] [address], [address] [place] [address], [address] [place] [address], Meter Reading Clerk: Donavan Moser MD [facility] Collection Date/Time: [facility] Results Received Date/Time: [facility] Reported Date/Time: FASTING: NO Performed By: #### 1 0231A, ESR, %78954, TSH, 249X #### [facility] Default [address] [place] [address] TSHon 07-10-2021 TSH Qn 0.74 m[IU]/L Normal 0.40-4.50 [facility] Specialist Comment on above: Order Comment: [facility] Testing performed at: [facility], [facility], [address] [place] [address], [address] [place] [address], [address] [place] [address], Meter Reading Clerk: Donavan Moser MD [facility] Collection Date/Time: [facility] Results Received Date/Time: [facility] Reported Date/Time: FASTING: NO Performed By: #### 1 0231A, ESR, %12011, TSH, 249X #### [facility] Default [address] [place] [address] Covid-19 PCR (CVDTBH)on 07-08 Covid-19 PCR NOT DETECTED Normal NOT DETECTED [facility] Comment on above: Result Comment: This test is not yet approved or cleared by the [place] FDA. When there are no FDA-approved or cleared tests available, and other criteria are met, FDA can make tests available under an emergency access mechanism called an Emergency Use Authorization (EUA). The EUA for this test is supported by the [employer] of Health and Human Service's (HHS's) declaration [...] longer be used). Performed By: #### C VDTB #### [facility] [address] [place], [place] [id number] Domo Miller EUA Statement SEE BELOW Normal [facility] Comment on above: Result Comment: This test is not yet approved or cleared by the [place] FDA. When there are no FDA-approved or cleared tests available, and other criteria are met, FDA can make tests available under an emergency access mechanism called an Emergency Use Authorization (EUA). The EUA for this test is supported by the [place] of Health and Human Service?s (HHS?s) declaration [...] SARS-CoV-2. Performed By: #### C VDTB #### [facility] [address] [place], [place] [id number] Domo Miller COVID-19 PCRon 03-19-2020 SARS-CoV-2, MARCY Not Detected Normal Not Detected [facility] Comment on above: Result Comment: This test was developed and its performance characteristics determined by [employer]. This test has not been FDA cleared [...] assay. Performed By: #### C VDPCR #### [facility] [address] [place] [address] Domo Miller Vital Signs Date Time Vital Sign Value Performing Clinician Facility 03-15-2025 14:37-0400 Body height 152.4 cm Edmond Ball DO Work Phone: [facility] 03-15-2025 14:37-0400 Body mass index (BMI) [Ratio] 36.8 kg/m2 Edmond Ball DO Work Phone: [facility] 03-15-2025 14:37-0400 Body weight 85.44 kg Edmond Ball DO Work Phone: [facility] 03-15-2025 14:37-0400 Diastolic blood pressure 81 mm[Hg] Edmond Ball DO Work Phone: [facility] 03-15-2025 14:37-0400 Heart rate 64 /min Edmond Ball DO Work Phone: [facility] 03-15-2025 14:37-0400 Respiratory rate 12 /min Edmond Ball DO Work Phone: [facility] 03-15-2025 14:37-0400 Systolic blood pressure 125 mm[Hg] Edmond Ball DO Work Phone: [facility] 07-12-2024 08:07-0500 Body temperature 98.24 [degF] Karlee Montes De [facility] [place] [facility] 07-12-2024 08:07-0500 Diastolic blood pressure 74 mm[Hg] Karlee Lue [facility] [place] [facility] 07-12-2024 08:07-0500 Respiratory rate 16 /min Karlee Lue [facility] [place] [facility] 07-12-2024 08:07-0500 Systolic blood pressure 128 mm[Hg] Karlee Lue [facility] [place] [facility] 07-02-2024 13:43-0500 Blood Pressure Location CARON JANETTE [facility] [place] [facility] 07-02-2024 13:43-0500 Diastolic blood pressure 61 mm[Hg] CARON JANETTE [facility] [place] [facility] 07-02-2024 13:43-0500 Heart rate 65 /min CARON JANETTE [facility] [place] [facility] 07-02-2024 13:43-0500 Respiratory rate 18 /min CARON JANETTE [facility] [place] [facility] 07-02-2024 13:43-0500 Systolic blood pressure 102 mm[Hg] CARON JANETTE [facility] [place] [facility] 03-02-2024 11:10-0400 Blood Pressure Location Gera [facility] 03-02-2024 11:10-0400 Diastolic blood pressure 90 mm[Hg] Gera [facility] 03-02-2024 11:10-0400 Heart rate 58 /min Gera Thomas [facility] 03-02-2024 11:10-0400 Respiratory rate 18 /min Gera Thomas [facility] 03-02-2024 11:10-0400 SaO2% (BldA) [Mass fraction] 94 % Gera [facility] 03-02-2024 11:10-0400 Systolic blood pressure 140 mm[Hg] Gera [facility] 09-28-2023 09:05-0500 Body height 154 cm Ant Kirk DO Work Phone: [employer] 09-28-2023 09:05-0500 Body mass index (BMI) [Ratio] 37.3 kg/m2 Ant Kirk DO Work Phone: [employer] 09-28-2023 09:05-0500 Body temperature 98.01 [degF] Ant Kirk DO Work Phone: [employer] 09-28-2023 09:05-0500 Body weight 88.45 kg Ant Kirk DO Work Phone: [employer] 09-28-2023 09:05-0500 Diastolic blood pressure 64 mm[Hg] Ant Kirk DO Work Phone: [employer] 09-28-2023 09:05-0500 Heart rate 57 /min Ant Kirk DO Work Phone: [employer] 09-28-2023 09:05-0500 Respiratory rate 16 /min Ant Kirk DO Work Phone: [employer] 09-28-2023 09:05-0500 SaO2% (BldA) [Mass fraction] 96 % Ant Kirk DO Work Phone: [employer] 09-28-2023 09:05-0500 Systolic blood pressure 145 mm[Hg] Ant Kirk DO Work Phone: [employer] 09-15-2023 12:32-0500 Diastolic blood pressure 55 mm[Hg] Dennise Sol DO Work Phone: [employer] 09-15-2023 12:32-0500 Heart rate 56 /min Dennise Sol [employer] Work Phone: [facility] [employer] 09-15-2023 12:32-0500 Respiratory rate 20 /min Dennise Sol [employer] Work Phone: [facility] [employer] 09-15-2023 12:32-0500 SaO2% (BldA) [Mass fraction] 99 % Deninse Sol [employer] Work Phone: [employer] 09-15-2023 12:32-0500 Systolic blood pressure 126 mm[Hg] Dennise Sol DO Work Phone: [facility] [employer] 09-15-2023 10:29-0500 Body height 152.4 cm Dennise Sol DO Work Phone: [facility] [employer] 09-15-2023 10:29-0500 Body mass index (BMI) [Ratio] 37.11 kg/m2 Dennise Sol [employer] Work Phone: [facility] [employer] 09-15-2023 10:29-0500 Body temperature 98.29 [degF] Dennise Sol [employer] Work Phone: [facility] [employer] 09-15-2023 10:29-0500 Body weight 86.18 kg Dennise Sol [employer] Work Phone: [facility] [employer] 07-13-2023 11:29-0500 Heart rate 72 /min Reuben DREW [facility] 07-13-2023 11:29-0500 SaO2% (BldA) [Mass fraction] 95 % Reuben DREW [facility] 07-13-2023 11:27-0500 Diastolic blood pressure 79 mm[Hg] Reuben DREW [facility] 07-13-2023 11:27-0500 Mean blood pressure 101 mm[Hg] Reuben VIKI [facility] 07-13-2023 11:27-0500 Systolic blood pressure 145 mm[Hg] Reuben VIKI [facility] 07-13-2023 11:27-0500 Body temperature 97.88 [degF] Reuben VIKI [facility] 07-13-2023 10:07-0500 Hourly Rounding Reuben VIKI [facility] 07-13-2023 10:07-0500 Promise to Return Reuben VIKI [facility] 07-13-2023 09:00-0500 Hourly Rounding Reuben VIKI [facility] 07-13-2023 09:00-0500 Promise to Return Reuben VIKI [facility] 07-13-2023 08:23-0500 Hourly Rounding Reuben VIKI [facility] 07-13-2023 08:23-0500 Promise to Return Reuben VIKI [facility] 07-13-2023 07:35-0500 Heart rate 68 /min Reuben VIKI [facility] 07-13-2023 07:35-0500 SaO2% (BldA) [Mass fraction] 96 % Reuben VIKI [facility] 07-13-2023 07:35-0500 Diastolic blood pressure 69 mm[Hg] Reuben VIKI [facility] 07-13-2023 07:35-0500 Mean blood pressure 97 mm[Hg] Reuben VIKI [facility] 07-13-2023 07:35-0500 Systolic blood pressure 153 mm[Hg] Reuben YOUNGLIN [facility] 07-13-2023 07:34-0500 Body temperature 97.88 [degF] Reuben YOUNGLIN [facility] 07-13-2023 05:03-0500 Blood Pressure Location Reuben DREW [facility] 07-13-2023 05:03-0500 Body temperature 97.52 [degF] Reuben DREW [facility] 07-13-2023 05:03-0500 Diastolic blood pressure 64 mm[Hg] Reuben DREW [facility] 07-13-2023 05:03-0500 Heart rate 69 /min Reubenmichelle DREW [facility] 07-13-2023 05:03-0500 Mean blood pressure 88 mm[Hg] Reuben DREW [facility] 07-13-2023 05:03-0500 Respiratory rate 20 /min Reuben DREW [facility] 07-13-2023 05:03-0500 SaO2% (BldA) [Mass fraction] 94 % Reuben DREW [facility] 07-13-2023 05:03-0500 Systolic blood pressure 137 mm[Hg] Reuben CISNEROSSLIN [facility] 07-13-2023 03:08-0500 Respiratory rate 20 /min Reuben CISNEROSSLIN [facility] 07-12-2023 19:48-0500 Mean blood pressure 99 mm[Hg] Reuben CISNEROSSLIN [facility] 07-12-2023 17:10-0500 Body temperature 98.24 [degF] Reubenmichelle CISNEROSSLIN [facility] 07-12-2023 05:25-0500 Body temperature 98.06 [degF] Reubenmichelle CISNEROSSLIN [facility] 07-12-2023 05:25-0500 Mean blood pressure 92 mm[Hg] Reubenmichelle CISNEROSSLIN [facility] 07-12-2023 05:25-0500 Respiratory rate 18 /min Reubenmichelle CISNEROSSLIN [facility] 07-11-2023 12:00-0500 Body temperature 97.7 [degF] Reubenmichelle CISNEROSSLIN [facility] 07-11-2023 04:10-0500 Blood Pressure Location Reubenmichelle CISNEROSSLIN [facility] 07-11-2023 04:10-0500 Mean blood pressure 100 mm[Hg] Reubenmichelle CISNEROSSLIN [facility] 07-11-2023 00:45-0500 Blood Pressure Location Reubenmichelle CISNEROSSLIN [facility] 07-10-2023 20:15-0500 Heart rate 86 /min Reubenmichelle CISNEROSSLIN [facility] 07-10-2023 19:12-0500 Respiratory rate 18 /min Reuben VIKI [facility] 07-10-2023 18:45-0500 Respiratory rate 18 /min Reuben VIKI [facility] 07-10-2023 17:25-0500 gluc 90 mg/dL Reubenmichelle CISNEROSSLIN [facility] 07-10-2023 17:25-0500 gluc Rueben DREW [facility] 07-10-2023 16:55-0500 Heart rate 85 /min Reuben DREW [facility] 05-17-2023 14:45-0400 Body height 152.4 cm Edmond Ball Other [facility] [employer] Other 05-17-2023 14:45-0400 Body mass index (BMI) [Ratio] 37.3 kg/m2 Edmond Ball Other [employer] Other 05-17-2023 14:45-0400 Body weight 86.64 kg Edmond Ball Other [employer] Other 05-17-2023 14:45-0400 Diastolic blood pressure 67 mm[Hg] Edmond Ball Other [employer] Other 05-17-2023 14:45-0400 Respiratory rate 12 /min Edmond Ball Other [employer] Other 05-17-2023 14:45-0400 Systolic blood pressure 152 mm[Hg] Edmond Ball Other [employer] Other 04-06-2023 11:00-0400 Body height 152.4 cm Edmond Ball Other [employer] Other 04-06-2023 11:00-0400 Body mass index (BMI) [Ratio] 36.56 kg/m2 Edmond Ball Other [employer] Other 04-06-2023 11:00-0400 Body weight 84.91 kg Edmond Ball Other [employer] Other 04-06-2023 11:00-0400 Diastolic blood pressure 74 mm[Hg] Edmond Ball Other [facility] [employer] Other 04-06-2023 11:00-0400 Respiratory rate 12 /min Edmond Ball Other [employer] Other 04-06-2023 11:00-0400 Systolic blood pressure 160 mm[Hg] Edmond Ball Other [facility] [employer] Other 03-14-2023 11:27-0400 Heart rate 59 /min Mbanefo OJUKWU [facility] 03-14-2023 11:27-0400 SaO2% (BldA) [Mass fraction] 95 % Mbanefo OJUKWU [facility] 03-14-2023 11:26-0400 Diastolic blood pressure 72 mm[Hg] Mbanefo OJUKWU [facility] 03-14-2023 11:26-0400 Mean blood pressure 86 mm[Hg] Mbanefo OJUKWU [facility] 03-14-2023 11:26-0400 Systolic blood pressure 113 mm[Hg] Mbanefo OJUKWU [facility] 03-14-2023 11:26-0400 Body temperature 98.24 [degF] Mbanefo OJUKWU [facility] 03-14-2023 11:00-0400 Blood Pressure Location Mbanefo OJUKWU [facility] 03-14-2023 11:00-0400 Respiratory rate 16 /min Mbanefo OJUKWU [facility] 03-14-2023 10:00-0400 Hourly Rounding Mbanefo OJUKWU [facility] 03-14-2023 10:00-0400 Promise to Return Mbanefo OJUKWU [facility] 03-14-2023 09:18-0400 Hourly Rounding Mbanefo OJUKWU [facility] 03-14-2023 09:18-0400 Promise to Return Mbanefo OJUKWU [facility] 03-14-2023 08:29-0400 Heart rate 57 /min Mbanefo OJUKWU [facility] 03-14-2023 08:29-0400 SaO2% (BldA) [Mass fraction] 96 % Mbanefo OJUKWU [facility] 03-14-2023 08:29-0400 Diastolic blood pressure 77 mm[Hg] Mbanefo OJUKWU [facility] 03-14-2023 08:29-0400 Mean blood pressure 99 mm[Hg] Mbanefo OJUKWU [facility] 03-14-2023 08:29-0400 Systolic blood pressure 142 mm[Hg] Mbanefo OJUKWU [facility] 03-14-2023 08:29-0400 Body temperature 97.88 [degF] Mbanefo OJUKW[facility] 03-14-2023 08:00-0400 Hourly Rounding Mbanefo OJUKW[facility] 03-14-2023 08:00-0400 Promise to Return Mbanefo O[facility]UKW[facility] 03-13-2023 20:00-0400 Body temperature 97.7 [degF] Mbanefo OJUKW[facility] 03-13-2023 20:00-0400 Diastolic blood pressure 64 mm[Hg] Mbanefo OJUKW[facility] 03-13-2023 20:00-0400 Heart rate 63 /min Mbanefo OJUKW[facility] 03-13-2023 20:00-0400 SaO2% (BldA) [Mass fraction] 94 % Mbanefo OJUKW[facility] 03-13-2023 20:00-0400 Systolic blood pressure 114 mm[Hg] Mbanefo OJUKWU [facility] 03-13-2023 15:20-0400 Mean blood pressure 100 mm[Hg] Mbanefo OJUKW[facility] 03-12-2023 19:00-0400 Mean blood pressure 92 mm[Hg] Mbanefo OJUKWU [facility] 03-11-2023 05:00-0400 Body temperature 98.06 [degF] Mbanefo OJUKWU [facility] 03-11-2023 01:00-0400 Body temperature 98.06 [degF] Mbanefo OJUKWU [facility] 03-10-2023 15:54-0400 Blood Pressure Location Mbanefo OJUKWU [facility] 03-10-2023 15:54-0400 Body temperature 98.24 [degF] [facility] [facility] 03-10-2023 15:54-0400 Heart rate 61 /min Mbanefo OJUKWU [facility] 03-10-2023 15:54-0400 Respiratory rate 17 /min Mbanefo OJUKWU [facility] 03-10-2023 14:45-0400 Mean blood pressure 115 mm[Hg] Mbanefo OJUKWU [facility] 03-10-2023 14:45-0400 Respiratory rate 17 /min Mbanefo OJUKWU [facility] 03-10-2023 13:45-0400 Mean blood pressure 96 mm[Hg] Mbanefo OJUKWU [facility] 03-10-2023 13:45-0400 Respiratory rate 16 /min Mbanefo OJUKWU [facility] 03-10-2023 12:45-0400 Respiratory rate 15 /min Mbanefo OJUKWU [facility] 03-10-2023 11:48-0400 Heart rate 61 /min Mbanefo OJUKWU [facility] 03-10-2023 11:33-0400 gluc 109 mg/dL Mbanefo OJUKWU [facility] 03-10-2023 11:33-0400 gluc Mbanefo OJUKWU [facility] 03-10-2023 11:22-0400 Heart rate 71 /min Mbanefo OJUKWU [facility] 01-19-2023 12:38-0400 Body weight 84.5 kg Quiana Waterman APRN.CNS Work Phone: [facility] 06-14-2023 12:38-0400 Diastolic blood pressure 81 mm[Hg] Quiana Eros BOLIVARN.GROUP UNDERWRITER Work Phone: [facility] 01-19-2023 12:38-0400 Heart rate 54 /min Quiana Eros [employer] ARCHITECT.GROUP UNDERWRITER Work Phone: [facility] 01-19-2023 12:38-0400 Systolic blood pressure 160 mm[Hg] Quiana Eros [employer] ARCHITECT.GROUP UNDERWRITER Work Phone: [facility] 09-13-2022 15:30-0500 Body height 152.4 cm Edmond Ball Other [employer] Other 09-13-2022 15:30-0500 Body mass index (BMI) [Ratio] 36.24 kg/m2 Edmond Ball Other [employer] Other 09-13-2022 15:30-0500 Body weight 84.19 kg Edmond Ball Other [employer] Other 09-13-2022 15:30-0500 Diastolic blood pressure 74 mm[Hg] Edmond Ball Other [employer] Other 09-13-2022 15:30-0500 Respiratory rate 12 /min Edmond Ball Other [employer] Other 09-13-2022 15:30-0500 Systolic blood pressure 122 mm[Hg] Edmond Ball Other [employer] Other 05-12-2022 15:28-0400 Body temperature 98.24 [degF] Reuben DREW [facility] 05-12-2022 15:28-0400 Diastolic blood pressure 58 mm[Hg] Reuben YOUNGLIN [facility] 05-12-2022 15:28-0400 Heart rate 68 /min Reuben DREW [facility] 05-12-2022 15:28-0400 Mean blood pressure 79 mm[Hg] Reuben VIKI [facility] 05-12-2022 15:28-0400 SaO2% (BldA) [Mass fraction] 95 % Reuben VIKI [facility] 05-12-2022 15:28-0400 Systolic blood pressure 122 mm[Hg] Reuben VIKI [facility] 05-12-2022 14:46-0400 Diastolic blood pressure 78 mm[Hg] Reuben VIKI [facility] 05-12-2022 14:46-0400 Heart rate 82 /min Reuben VIKI [facility] 05-12-2022 14:46-0400 Mean blood pressure 97 mm[Hg] Reuben VIKI [facility] 05-12-2022 14:46-0400 Respiratory rate 16 /min Reuben VIKI [facility] 05-12-2022 14:46-0400 Systolic blood pressure 135 mm[Hg] Reuben VIKI [facility] 05-12-2022 13:00-0400 Hourly Rounding Reuben VIKI [facility] 05-12-2022 13:00-0400 Promise to Return Reuben VIKI [facility] 05-12-2022 12:00-0400 Hourly Rounding Reuben VIKI [facility] 05-12-2022 12:00-0400 Promise to Return Reuben VIKI [facility] 05-12-2022 11:00-0400 Blood Pressure Location Reubenmichelle CISNEROSSLIN [facility] 05-12-2022 11:00-0400 Body temperature 99.68 [degF] Reuben VIKI [facility] 05-12-2022 11:00-0400 BP/Pulse Patient Position Reubenmichelle CISNEROSSLIN [facility] 05-12-2022 11:00-0400 Diastolic blood pressure 67 mm[Hg] Reuben VIKI [facility] 05-12-2022 11:00-0400 Heart rate 61 /min Reuben VIKI [facility] 05-12-2022 11:00-0400 Hourly Rounding Reubenmichelle CISNEROSSLIN [facility] 05-12-2022 11:00-0400 Mean blood pressure 83 mm[Hg] Reuben VIKI [facility] 05-12-2022 11:00-0400 Promise to Return Reubenmichelle CISNEROSSLIN [facility] 05-12-2022 11:00-0400 Respiratory rate 18 /min Reuben VIKI [facility] 05-12-2022 11:00-0400 Systolic blood pressure 116 mm[Hg] Reuben VIKI [facility] 05-12-2022 10:00-0400 Mean blood pressure 82 mm[Hg] Reuben VIKI [facility] 05-12-2022 07:53-0400 Heart rate 64 /min Reuben VIKI [facility] 05-12-2022 07:00-0400 Body temperature 98.06 [degF] Reuben VIKI [facility] 05-12-2022 07:00-0400 SaO2% (BldA) [Mass fraction] 94 % Reubenmichelle CISNEROSSLIN [facility] 05-12-2022 06:48-0400 Heart rate 69 /min Reubenmichelle CISNEROSSLIN [facility] 05-12-2022 04:00-0400 SaO2% (BldA) [Mass fraction] 99 % Reubenmichelle CISNEROSSLIN [facility] 05-11-2022 20:39-0400 Mean blood pressure 81 mm[Hg] Reubenmichelle CISNEROSSLIN [facility] 05-11-2022 17:14-0400 Blood Pressure Location Reubenmichelle CISNEROSSLIN [facility] 05-11-2022 17:14-0400 BP/Pulse Patient Position Reubenmichelle CISNEROSSLIN [facility] 05-11-2022 17:14-0400 Mean blood pressure 90 mm[Hg] Reubenmichelle CISNEROSSLIN [facility] 05-11-2022 08:21-0400 Heart rate 76 /min Reubenmichelle CISNEROSSLIN [facility] 05-10-2022 02:27-0400 Respiratory rate 11 /min Reubenmichelle CISNEROSSLIN [facility] 05-10-2022 02:21-0400 Respiratory rate 15 /min Reubenmichelle CISNEROSSLIN [facility] 05-09-2022 21:00-0400 gluc 93 mg/dL Reubenmichelle CISNEROSSLIN [facility] 05-09-2022 21:00-0400 gluc Reubenmichelle CISNEROSSLIN [facility] 12-15-2021 10:38-0400 Diastolic blood pressure 66 mm[Hg] Juaquin Owen [facility] 12-15-2021 10:38-0400 Mean blood pressure 92 mm[Hg] Juaquin Owen [facility] 12-15-2021 10:38-0400 Systolic blood pressure 143 mm[Hg] Juaquin Owen [facility] 12-15-2021 10:30-0400 Blood Pressure Location Juaquin Owen [facility] 12-15-2021 10:30-0400 Diastolic blood pressure 64 mm[Hg] Juaquin Owen [facility] 12-15-2021 10:30-0400 Heart rate 65 /min Juaquin Owen [facility] 12-15-2021 10:30-0400 Respiratory rate 18 /min Juaquin Owen [facility] 12-15-2021 10:30-0400 SaO2% (BldA) [Mass fraction] 98 % Juaquin Owen [facility] 12-15-2021 10:30-0400 Systolic blood pressure 144 mm[Hg] Juaquin Owen [facility] 12-13-2021 14:00-0400 Body temperature 98.96 [degF] Steffen Castle [facility] 12-13-2021 14:00-0400 Heart rate 80 /min Steffen Castle [facility] 12-13-2021 14:00-0400 Mean blood pressure 89 mm[Hg] Steffen Castle [facility] 12-13-2021 14:00-0400 Respiratory rate 10 /min Steffen Castle [facility] 12-13-2021 11:05-0400 Hourly Rounding Steffen Castle [facility] 12-13-2021 11:05-0400 Promise to Return Steffen Castle [facility] 12-13-2021 10:22-0400 Hourly Rounding Steffen Castle [facility] 12-13-2021 10:22-0400 Promise to Return Steffen Castle [facility] 12-13-2021 09:17-0400 Hourly Rounding Steffen Castle [facility] 12-13-2021 09:17-0400 Promise to Return Steffen Castle [facility] 12-13-2021 08:46-0400 SaO2% (BldA) [Mass fraction] 97 % Steffen Castle [facility] 12-13-2021 08:10-0400 Diastolic blood pressure 68 mm[Hg] Steffen Ross [facility] 12-13-2021 08:10-0400 Heart rate 70 /min Steffen Castle [facility] 12-13-2021 08:10-0400 Systolic blood pressure 145 mm[Hg] Steffen Ross [facility] 12-13-2021 07:05-0400 Body temperature 98.06 [degF] Steffen Ross [facility] 12-13-2021 07:05-0400 Diastolic blood pressure 68 mm[Hg] Steffen Ross [facility] 12-13-2021 07:05-0400 Heart rate 70 /min Steffen Castle [facility] 12-13-2021 07:05-0400 Mean blood pressure 93 mm[Hg] Steffen Csatle [facility] 12-13-2021 07:05-0400 SaO2% (BldA) [Mass fraction] 96 % Steffen Castle [facility] 12-13-2021 07:05-0400 Systolic blood pressure 145 mm[Hg] Steffen Castle [facility] 12-13-2021 03:45-0400 Blood Pressure Location Steffen Castle [facility] 12-13-2021 03:45-0400 Body temperature 97.88 [degF] Steffen Castle [facility] 12-13-2021 03:45-0400 Diastolic blood pressure 73 mm[Hg] Steffen Castle [facility] 12-13-2021 03:45-0400 Heart rate 68 /min Steffen Castle [facility] 12-13-2021 03:45-0400 Respiratory rate 16 /min Steffen Castle [facility] 12-13-2021 03:45-0400 SaO2% (BldA) [Mass fraction] 96 % Steffen Castle [facility] 12-13-2021 03:45-0400 Systolic blood pressure 156 mm[Hg] Steffen Castle [facility] 12-13-2021 03:00-0400 Heart rate 71 /min Steffen Castle [facility] 12-13-2021 03:00-0400 Mean blood pressure 96 mm[Hg] Steffen Castle [facility] 12-13-2021 03:00-0400 Respiratory rate 11 /min Steffen Castle [facility] 12-13-2021 01:00-0400 Mean blood pressure 71 mm[Hg] Steffen Castle [facility] 12-13-2021 01:00-0400 Respiratory rate 12 /min Steffen Castle [facility] 12-12-2021 22:45-0400 Heart rate 87 /min Steffen Castle [facility] 12-12-2021 22:45-0400 Respiratory rate 18 /min Steffen Castle [facility] 12-12-2021 22:30-0400 Heart rate 71 /min Steffen Castle [facility] 12-12-2021 22:30-0400 Respiratory rate 20 /min Steffenjosemanuel Castle [facility] Encounters Encounter Date Encounter Type Care Provider Facility Start: 03-27-2025 End: 03-27-2025 Refill Chaparro Yarbrough OD Work Phone: Ophthalmology Comment on above: Refill Request Start: 03-24-2025 End: 03-24-2025 ambulatory Edmond Pacheco DO Work Phone: [facility] Work Phone: Start: 03-24-2025 End: 03-24-2025 Departed Referred Sunny Ocampo PA-C -[facility] Start: 03-24-2025 Non-patient / Non-visit Sheldon Ocampo PA-C -[facility] Work Phone: Start: 03-24-2025 End: 03-25-2025 Clinisync Result Encounter Sunny WALKER Work Phone: [facility] Unsolicited Start: 03-24-2025 End: 03-25-2025 Clinisync Result Encounter Sunny WALKER Work Phone: [facility] Unsolicited Start: 03-24-2025 End: 03-25-2025 External Result Encounter Sunny WALKER Work Phone: [facility] Unsolicited Start: 03-15-2025 End: 03-15-2025 ambulatory Edmond Pacheco DO Work Phone: [facility] Work Phone: Start: 03-15-2025 End: 03-15-2025 Patient encounter procedure Edmond Pacheco DO -[facility] Work Phone: Start: 03-13-2025 Patient encounter procedure Edmond Pacheco DO Work Phone: [facility] Start: 02-28-2025 End: 02-28-2025 Patient encounter procedure Sunny Taylor MD -[address] Work Phone: Start: 02-28-2025 End: 02-28-2025 ambulatory Edmond Pacheco DO Work Phone: [facility] Work Phone: Start: 10-08-2024 End: 10-08-2024 ambulatory PA-C CARON CARVAJAL Facility:[facility] Start: 10-08-2024 End: 10-08-2024 Patient encounter procedure CARON CARVAJAL [facility] Start: 07-12-2024 ambulatory Karlee M. Lue Facility:[facility] Start: 07-12-2024 End: 07-12-2024 Patient encounter procedure Karlee M. Lue [facility] Start: 07-11-2024 ambulatory Karlee M. Lue Facility:[facility] Start: 07-04-2024 End: 07-04-2024 ambulatory PA-C CARON CARVAJAL Facility:[facility] Start: 07-04-2024 End: 07-04-2024 Patient encounter procedure CARON CARVAJAL [facility] Start: 07-02-2024 End: 07-02-2024 ambulatory PA-C CARON CARVAJAL Facility:[facility] Start: 07-02-2024 End: 07-02-2024 Lab Drop off CARON CARVAJAL [facility] Start: 07-02-2024 End: 07-02-2024 ambulatory PA-C CARON Aniya VINCENTRY Facility:[facility] Start: 07-02-2024 End: 07-02-2024 Patient encounter procedure CARON CARVAJAL [facility] Start: 06-29-2024 End: 06-29-2024 ambulatory EDMOND BALL Facility:[facility] Start: 06-29-2024 End: 06-29-2024 Lab Drop off EDMOND BALL [facility] Start: 06-18-2024 End: 06-18-2024 ambulatory EDMOND BALL Facility:[facility] Start: 06-18-2024 End: 06-18-2024 Lab Drop off EDMOND BALL [facility] Start: 05-30-2024 End: 05-30-2024 ambulatory EDMOND BALL Facility:[facility] Start: 05-30-2024 End: 05-30-2024 Lab Drop off EDMOND BALL [facility] Start: 05-25-2024 ambulatory THAI PATEL Facility:[facility] Start: 05-15-2024 End: 05-15-2024 ambulatory EDMOND BALL Facility:[facility] Start: 05-15-2024 End: 05-15-2024 Lab Drop off EDMOND BALL [facility] Start: 05-04-2024 End: 05-04-2024 ambulatory EDMOND PACHECO Facility:[facility] Start: 05-04-2024 End: 05-04-2024 Lab Drop off EDMOND PACHECO [facility] Start: 03-30-2024 End: 03-30-2024 Pre-admission assessment Gera Thomas [facility] Start: 03-14-2024 End: 03-14-2024 ambulatory PA-C Gera Thomas Facility:[facility] Start: 03-14-2024 End: 03-14-2024 Patient encounter procedure Gera Thomas [facility] Start: 03-09-2024 Refill Chaparro mccray OD Work Phone: Ophthalmology Comment on above: Refill Request Start: 03-02-2024 End: 03-02-2024 ambulatory [facility] Facility:[facility] Start: 03-02-2024 End: 03-02-2024 Patient encounter procedure Gera Thomas [facility] Start: 03-02-2024 End: 03-02-2024 ambulatory [facility] Facility:[facility] Start: 03-02-2024 End: 03-02-2024 Patient encounter procedure Gera Thomas [facility] Start: 01-12-2024 End: 01-12-2024 Emergency department patient visit [facility] Start: 12-21-2023 End: 12-21-2023 Emergency department patient visit [facility] Start: 11-23-2023 End: 11-23-2023 ambulatory DO Edmond Pacheco Work Phone: [facility] Work Phone: Start: 11-23-2023 End: 11-23-2023 Patient encounter procedure DO Edmond Pacheco Work Phone: [facility] [address] Work Phone: Start: 10-21-2023 End: 10-21-2023 Emergency department patient visit THAI PATEL [facility] Start: 09-28-2023 End: 09-28-2023 Emergency department patient visit Ant Kirk DO Work Phone: [facility] Comment on above: Fall, initial encoun ter (Primary Dx) Start: 09-15-2023 End: 09-15-2023 Emergency department patient visit Dennise Sol DO Work Phone: [facility] Comment on above: Unwitnessed fall (Pr imary Dx) Start: 09-07-2023 End: 09-07-2023 ambulatory ROJAS BROWN Facility:[facility] Start: 08-27-2023 End: 08-31-2023 ambulatory Alex Bhatti Facility:[facility] Start: 08-19-2023 End: 08-19-2023 ambulatory Edmond Pacheco Other [employer] Other Start: 08-19-2023 Telephone encounter Edmond CONRAD [facility] Start: 08-16-2023 End: 08-16-2023 ambulatory Edmond Pacheco Other [employer] Other Start: 08-16-2023 Telephone encounter Edmond CONRAD [facility] Start: 07-21-2023 End: 07-21-2023 ambulatory Chaparro Hanna Facility:CD:[id number] Start: 07-21-2023 End: 07-21-2023 Off-Site [facility] Start: 07-20-2023 End: 07-20-2023 ambulatory Edmond Junior Other [employer] Other Start: 07-20-2023 Telephone encounter Edmond CONRAD [facility] Start: 07-20-2023 End: 07-22-2023 Evaluation and management of inpatient Inderjit ASHRAF [facility] Start: 07-15-2023 End: 07-15-2023 ambulatory Inderjit ASHRAF Facility:[id number] Start: 07-15-2023 End: 07-15-2023 Off-Site [facility]jit [facility] Start: 07-13-2023 End: 07-22-2023 ambulatory Inderjit ASHRAF Facility:[facility] Start: 07-10-2023 End: 07-13-2023 ambulatory Austyn Campos Facility:[facility] Start: 07-10-2023 End: 07-13-2023 Observation Reuben DREW [facility] Start: 07-08-2023 End: 07-16-2023 Pre-admission assessment EDMOND PACHECO [facility] Start: 06-24-2023 Telephone encounter Edmond CONRAD [facility] Start: 06-24-2023 End: 06-24-2023 ambulatory EDMOND [facility] Other Start: 06-24-2023 End: 06-24-2023 Patient encounter procedure EDMOND PACHECO [facility] Start: 06-22-2023 End: 06-22-2023 ambulatory Edmond Pacheco Other [employer] Other Start: 06-22-2023 Telephone encounter Edmond Ibarra [facility] Start: 06-21-2023 Telephone encounter Edmond Ibarra [facility] Start: 06-21-2023 End: 06-21-2023 ambulatory EDMOND PACHECO [place] [employer] Other Start: 06-21-2023 End: 06-21-2023 Lab Drop off EDMOND BALL [facility] Start: 06-20-2023 End: 06-20-2023 ambulatory Edmond Ball Other [employer] Other Start: 06-20-2023 Telephone encounter Edmond Ball [facility] Start: 05-17-2023 End: 05-17-2023 ambulatory Edmond Ball Other [employer] Other Start: 05-17-2023 Office outpatient vi sit 25 minutes Edmond Ball [facility] Start: 05-16-2023 End: 05-16-2023 ambulatory Edmond Ball Other [employer] Other Start: 05-16-2023 Telephone encounter Edmond Ball [facility] Start: 05-13-2023 End: 05-13-2023 ambulatory Edmond Ball Other [employer] Other Start: 05-13-2023 Telephone encounter Edmond Ball [facility] Start: 05-11-2023 Telephone encounter Edmond Ball [facility] Start: 05-11-2023 End: 05-11-2023 ambulatory EDMOND BALL [employer] Other Start: 05-11-2023 End: 05-11-2023 Lab Drop off EDMOND BALL [facility] Start: 05-06-2023 End: 05-06-2023 ambulatory Edmond Ball Other [employer] Other Start: 05-06-2023 Telephone encounter Edmond Ball [facility] Start: 05-05-2023 End: 05-05-2023 ambulatory Edmond Ball Other [employer] Other Start: 05-05-2023 Telephone encounter Edmond Ball [facility] Start: 05-03-2023 End: 05-03-2023 ambulatory Edmond Pacheco Other [employer] Other Start: 05-03-2023 Telephone encounter Edmond CONRAD [facility] Start: 04-26-2023 End: 04-26-2023 ambulatory Edmond Pacheco Other [employer] Other Start: 04-26-2023 Telephone encounter Edmond CONRAD [facility] Start: 04-06-2023 End: 04-06-2023 ambulatory Edmond Pacheco Other [employer] Other Start: 04-06-2023 Office outpatient vi sit 25 minutes Edmond Pacheco [facility] Start: 04-05-2023 End: 04-05-2023 ambulatory DO Edmond Pacheco Work Phone: [facility] Work Phone: Start: 04-05-2023 End: 04-05-2023 Patient encounter procedure DO Edmond Pacheco Work Phone: [facility] [address] Work Phone: Start: 03-31-2023 End: 03-31-2023 ambulatory Edmond Pacheco Other [employer] Other Start: 03-31-2023 Telephone encounter Edmond CONRAD [facility] Start: 03-30-2023 Telephone encounter Edmond CONRAD [facility] Start: 03-30-2023 End: 03-30-2023 ambulatory EDMOND PACHECO [facility] Other Start: 03-30-2023 End: 03-30-2023 Lab Drop off EDMOND PACHECO [facility] Start: 03-24-2023 End: 03-24-2023 ambulatory SWITCHMAN-BC Nan Gambino Facility:[id number] Start: 03-24-2023 End: 03-24-2023 Off-Site [facility] Start: 03-16-2023 End: 03-16-2023 ambulatory Inderjit ASHRAF Facility:[id number] Start: 03-16-2023 End: 03-16-2023 Off-Site [facility]jit [facility] Start: 03-10-2023 End: 03-14-2023 Observation Valente VELASQUEZKWU [facility] Start: 02-14-2023 End: 02-14-2023 ambulatory Edmond Pacheco Other [facility] [employer] Other Start: 02-14-2023 Telephone encounter Edmond Pacheco [facility] Start: 02-07-2023 Telephone encounter Quiana Waterman [employer] ARCHITECT.GROUP UNDERWRITER Work Phone: Neurology Comment on above: Results (Pt daughter is requesting a copy of report); Nurse [facility] - Other Appointment (Returne d call and gave Fax Number to Dr. Tobi Pacheco); Nurse [facility] - Other Start: 01-28-2023 Telephone encounter Yari HENLEY Work Phone: Neurology Comment on above: Nurse [facility] - [facility] ther Start: 01-20-2023 End: 01-20-2023 ambulatory DO Edmond Pacheco Work Phone: [facility] Work Phone: Start: 01-20-2023 End: 01-20-2023 Patient encounter procedure DO Edmond Pacheco Work Phone: [facility] [address] Work Phone: Start: 01-19-2023 End: 01-19-2023 ambulatory QUIANA WATERMAN Facility:[facility] Start: 01-19-2023 End: 01-19-2023 Patient encounter procedure Quiana Waterman [employer] ARCHITECT.GROUP UNDERWRITER Work Phone: Neurology Comment on above: Multifactorial demen tia (HCC) (Primary Dx); Alcohol abuse; Visual hallucinations; NAWAF (obstructive sleep apnea) Start: 12-31-2022 End: 09-20-2023 Recurring Michael Chand Davecosta [facility] Start: 12-18-2022 End: 12-18-2022 ambulatory Edmond Pacheco Other [employer] Other Start: 12-18-2022 Telephone encounter Edmond CONRAD [facility] Start: 12-17-2022 End: 12-17-2022 ambulatory Edmond Pacheco Other [employer] Other Start: 12-17-2022 Telephone encounter Edmond CONRAD [facility] Start: 12-17-2022 End: 12-17-2022 Patient encounter procedure EDMOND PACHECO [facility] Start: 10-19-2022 End: 10-19-2022 ambulatory Edmond Pacheco Other [employer] Other Start: 10-19-2022 Telephone encounter Edmond CONRAD [facility] Start: 10-12-2022 End: 10-12-2022 ambulatory Emdond Pacheco Other [employer] Other Start: 10-12-2022 Nursing evaluation o f patient and report Edmond Pacheco [facility] Start: 10-11-2022 End: 10-11-2022 ambulatory Edmond Pacheco Other [employer] Other Start: 10-11-2022 Office outpatient vi sit 15 minutes Edmond Pacheco [facility] Start: 09-23-2022 End: 09-23-2022 ambulatory NON STAFF [facility] Work Phone: Start: 09-23-2022 End: 09-23-2022 Patient encounter procedure [facility] [address] Work Phone: Start: 09-13-2022 End: 09-13-2022 ambulatory Edmond Pacheco Other [employer] Other Start: 09-13-2022 Office outpatient vi sit 25 minutes Edmond Pacheco [facility] Start: 08-27-2022 End: 08-27-2022 ambulatory Edmond Pacheco Other [employer] Other Start: 08-27-2022 Telephone encounter Edmond Pacheco [facility] Start: 08-26-2022 End: 08-26-2022 Patient encounter procedure Michael Rodriguez [facility] Start: 08-06-2022 Refill Chaparro Pérez er OD Work Phone: Ophthalmology Comment on above: Refill Request Start: 07-21-2022 End: 07-21-2022 ambulatory NON STAFF [facility] Work Phone: Start: 07-21-2022 End: 07-21-2022 Patient encounter procedure [facility] [address] Start: 07-05-2022 Pre-procedure evalua tion check Edmond Pacheco Other [employer] Other Start: 06-09-2022 End: 06-09-2022 Patient encounter procedure Austyn Andres [facility] Start: 06-01-2022 Refill Chaparro mccray OD Work Phone: Ophthalmology Comment on above: Refill Request Start: 05-24-2022 End: 06-02-2022 Pre-admission assessment Michael Rodriguez [facility] Start: 05-09-2022 End: 05-12-2022 Observation Reuben DREW [facility] Start: 02-23-2022 End: 02-23-2022 Patient encounter procedure Kimmie Morgan [facility] Start: 01-27-2022 End: 01-27-2022 Patient encounter procedure Kimmie Morgan [facility] Start: 01-26-2022 End: 01-26-2022 Patient encounter procedure Juaquin Owen [facility] Start: 01-05-2022 End: 01-05-2022 Patient encounter procedure MD Luciano Taylor Work Phone: [facility] Start: 12-15-2021 End: 12-15-2021 Patient encounter procedure Juaquin Owen [facility] Start: 12-12-2021 End: 12-13-2021 Observation Steffen Castle [facility] Start: 12-09-2021 End: 12-09-2021 Patient encounter procedure MD Luciano Taylor Work Phone: [facility] [address] Start: 11-17-2021 End: 11-17-2021 Patient encounter procedure EDMOND PACHECO [facility] Start: 11-04-2021 End: 11-04-2021 Patient encounter procedure EDMOND PACHECO [facility] Start: 07-18-2020 End: 07-19-2020 Patient encounter procedure EDMOND PACHECO Facility:H1 Start: 03-18-2020 End: 03-19-2020 Patient encounter procedure EDMNOD PACHECO Facility:[facility]1 Start: 08-22-2019 Adult health examination Wallace loren Pacheco Other [facility] Other Start: 06-20-2019 Gynecological examin ation normal Edmond Becual Other [facility] Other Procedures Date Procedure Procedure Detail Performing Clinician Start: 03-24-2025 Culture bacterial qu anttative colony count urine Sunny WALKER Work Phone: Start: 03-24-2025 URINE CULTURE - [facility] Ma tthew Aryan WALKER Work Phone: Start: 03-24-2025 End: 03-24-2025 ECG 12-LEAD Sunny WALKER Work Phone: Start: 09-15-2023 Ecg routine ecg w/le ast 12 lds w/i&r Dennise Sol DO Work Phone: Start: 02-05-2021 Closed reduction of nasal fracture [facility] Start: 09-19-2014 Helene osteotomy secon d and third metatarsal. capsulotomy third metatarsophalangeal joint. Helene osteotomy second metatarsophalangeal joint. proximal interphalangeal joint arthroplasty left second digit and to the left third digit [facility] Start: 09-11-2014 Pre-surgery evaluation Edmond Pacheco Other Start: 08-08-2012 Cataract (morphologi c abnormality) [facility] Back structure, excl uding neck (body structure) [facility] Comment on above: laminectomy L3-4 5/2 014 Other bilateral liga tion and division of fallopian tubes [facility] Right hammer toe and bunionectomy [facility] RIght knee arthroscopy WALLACE CH[facility]G [facility] Plan of Treatment Date Care Activity Detail Author Start: 10-12-2032 Urine microalbumin profile DTaP,Tdap,Td Vaccine (3 - Td or Tdap) [facility] Start: 04-08-2025 Influenza vaccination Influenza Vacc ine (#1) [facility] Start: 03-24-2025 Urine culture [facility] Start: 03-24-2025 Bacteria identified in Urine by Culture [facility] Start: 09-12-2024 End: 09-12-2024 Patient encounter procedure 09/12/2024 10:15 AM EST Office Visit [facility] Ophthalmology [address] [facility] [address] Chaparro Yarbrough, OD [address] [place] [address] 1 Year Full, Dilate, Mac OCT, ONH/GCL OCT Ophthalmology Comment on above: 1 Year Full, Dilate, Mac OCT, ONH/GCL OCT Start: 08-08-2024 Advance Directive Discussion Advance Directive Discussion [facility] Start: 08-08-2024 Medicare Advantage Annual Wellness Visit Medicare Advantage Annual Wellness Visit [facility] Start: 04-08-2024 Influenza vaccination Influenza Vacc ine (#1) [facility] Start: 08-08-2023 Advance Directive Discussion Advance Directive Discussion [facility] Start: 08-08-2023 Annual Wellness Visi t (Medicare Advantage) Annual Wellness Visit (Medicare Advantage) [facility] Start: 04-08-2023 Covid-19 Vaccine ( season) Covid-19 Vaccine ( season) [facility] Start: 04-08-2023 Influenza vaccination INFLUENZA (#1) [facility] Start: 03-08-2023 Influenza vaccination Flu vaccine (# 1) [facility] Start: 03-02-2023 Pneumococcal Vaccine : 50+ (2 of 2 - PCV) Pneumococcal Vaccine: 50+ (2 of 2 - PCV) [facility] Start: 03-02-2023 Pneumococcal Vaccine : 65+ (2 of 2 - PCV) Pneumococcal Vaccine: 65+ (2 of 2 - PCV) [facility] Start: 03-02-2023 Pneumococcal Vaccine : 65+ Years (2 of 2 - PCV) Pneumococcal Vaccine: 65+ Years (2 of 2 - PCV) [facility] Start: 08-08-2022 ADVANCE DIRECTIVE DISCUSSION ADVANCE DIRECTIVE DISCUSSION [facility] Start: 08-08-2022 DEPRESSION ASSESSMENT DEPRESSION ASS ESSMENT [facility] Start: 04-08-2022 Influenza vaccination INFLUENZA (#1) [facility] Start: 09-15-2021 COVID-19 VACCINE (4 - Booster for Pfizer series) COVID-19 VACCINE (4 - Booster for Pfizer series) [facility] Start: 08-08-2021 ADVANCE DIRECTIVE DISCUSSION ADVANCE DIRECTIVE DISCUSSION [facility] Start: 08-08-2021 DEPRESSION ASSESSMENT DEPRESSION ASS ESSMENT [facility] Start: 09-07-2019 Shingrix Vaccine (2 of 2) Shingrix Vaccine (2 of 2) [facility] Start: 2017 RSV Vaccine (1 - 1-dose 75+ series) RSV Vaccine (1 - 1-dose 75+ series) [facility] Start: 2007 BONE DENSITY BONE DENSITY [facility] Start: 2007 Pneumococcal 65+ yea rs Vaccine (1 - PCV) Pneumococcal 65+ years Vaccine (1 - PCV) [facility] Start: 2007 Screening for osteoporosis Bone Density Screening [facility] Start: 2002 Respiratory Syncytia l Virus (RSV) or age 60 yrs+ (1 - 1-dose 60+ series) Respiratory Syncytial Virus (RSV) or age 60 yrs+ (1 - 1-dose 60+ series) [facility] Start: 2002 RSV Vaccine (1 - 1-dose 60+ series) RSV Vaccine (1 - 1-dose 60+ series) [facility] Start: 1997 Screening for osteoporosis DEXA (modify frequency per FRAX score) [facility] Start: 1992 Shingles vaccine (1 of 2) Shingles vaccine (1 of 2) [facility] Start: 1987 DIABETES SCREEN DIABETES SCREEN [facility] Start: 1987 Diabetes Screening Diabetes Screenin g [facility] Start: 1961 DTaP/Tdap/Td vaccine (1 - Tdap) DTaP/Tdap/Td vaccine (1 - Tdap) [facility] Start: 1961 SHINGRIX VACCINE (1 of 2) SHINGRIX VACCINE (1 of 2) [facility] Start: 1961 Urine microalbumin profile DTAP,TDAP,TD (1 - Tdap) [facility] Start: 1954 Depression Monitoring Depression Mon itoring [facility] Start: 1953 Screening for malignant neoplasm of cervix Cervical Cancer Screening [facility] Start: 1948 PNEUMOCOCCAL: 65+ (1 - PCV) PNEUMOCOCCAL: 65+ (1 - PCV) [facility] Start: 01-30-1943 COVID-19 VACCINE (#1) COVID-19 VACCI NE (#1) [facility] EKG 12 Lead EKG 12 Lead ECG STAT 09/15/2023 11:15 AM EST [facility] URINE CULTURE - [facility] URINE CULTU RE - [facility] Lab Routine 03/24/2025 5:08 PM EDT [facility] Work Phone: [facility] Immunizations Immunization Date Immunization Notes Care Provider Fa torey 05-17-2023 influenza, high dose seasonal, preservative-free Edmond Pacheco Other [facility] Other 05-17-2023 influenza virus vaccine, unspecified formulation DO Edmond Pacheco Work Phone: [facility] 10-12-2022 tetanus and diphther ia toxoids, adsorbed, preservative free, for adult use (2 Lf of tetanus toxoid and 2 Lf of diphtheria toxoid) DO Edmond Pacheco Work Phone: [facility] 10-12-2022 tetanus and diphther ia toxoids, adsorbed, preservative free, for adult use (5 Lf of tetanus toxoid and 2 Lf of diphtheria toxoid) Edmond Pacheco Other [facility] Other 04-20-2022 Influenza vaccine, quadrivalent, adjuvanted Edmond Pacheco DO Work Phone: [facility] 04-20-2022 influenza virus vaccine, split virus (incl. purified surface antigen) Edmond Pacheco Other [facility] Other 04-20-2022 influenza virus vaccine, unspecified formulation Inderjit ASHRAF [facility] 03-02-2022 pneumococcal polysaccharide vaccine, 23 valent [facility] 07-21-2021 SARS-CoV-2 (COVID-19 ) mRNA BNT-162b2 vax [facility] 09-25-2020 SARS-CoV-2 (COVID-19 ) mRNA BNT-162b2 vax [facility] Comment on above: Result Comment: 2022: [id number] 09-04-2020 SARS-CoV-2 (COVID-19 ) mRNA BNT-162b2 vax Inderjit ASHRAF [facility] Comment on above: Result Comment: 2022: [id number] 07-13-2019 zoster vaccine recombinant Inderjit ASHRAF [facility] 06-21-2019 influenza virus vaccine, split virus (incl. purified surface antigen) Edmond Pacheco Other [facility] [employer] Other 06-21-2019 influenza virus vaccine, unspecified formulation DO Edmond Junior Work Phone: [facility] 06-21-2019 pneumococcal conjuga te vaccine, 13 valent Edmond Pacheco Other [facility] 04-20-2016 tetanus toxoid, redu bhupendra diphtheria toxoid, and acellular pertussis vaccine, adsorbed Edmond Pacheco Other [facility] 05-06-2015 influenza virus vaccine, split virus (incl. purified surface antigen) Edmond Pacheco Other [facility] [employer] Other 05-06-2015 influenza virus vaccine, unspecified formulation DO Edmond Junior Work Phone: [facility] 06-18-2014 influenza, injectabl e, quadrivalent, contains preservative Edmond Pacheco DO Work Phone: [facility] Payers Date Payer Category Payer Self-pay [id number] 2020 Medicare [facility] MED[employer]ARE [employer] PPO [id number] 2020-Present [phone] [address] [address] [place] [address] PPO [id number] 2020 Medicare (Managed Care) 1.2. [id number] 2020 Private Health Insurance [id number] 1959 Medicare [id number] 1940 Unknown [id number] 2.16.840.1.224615.3.579.2. 593 1942 Unknown [id number] 2.16.840.1.187608.3.579.2. 593 1942 Unknown [id number] 2.16.840.1.789132.3.579.2. 182 1942 Unknown [id number] 2.16.840.1.661081.3.579.2. 182 1942 Unknown [id number] 2.16.840.1.678219.3.579.2. 182 1942 Unknown [id number] 2.16.840.1.115058.3.579.2. 182 1942 Unknown [id number] 2.16.840.1.383764.3.579.2. 182 1942 Unknown [id number] 2.16.840.1.417218.3.579.2. 727 1942 Unknown [id number] 2.16.840.1.319010.3.579.2. 727 1942 Unknown [id number] 2.16.840.1.927099.3.579.2. 727 1942 Unknown [id number] 2.16.840.1.586951.3.579.2. 72 1942 Unknown [id number] 2.16.840.1.114018.3.579.2. 72 1942 Unknown [id number] 2.16.840.1.723370.3.579.2. 72 1942 Unknown [id number] 2.16.840.1.530042.3.579.2. 72 1942 Unknown [id number] 2.16.840.1.520519.3.579.2. 72 1942 Unknown [id number] 2.16.840.1.860029.3.579.2 1942 Unknown [id number] 2.16.840.1.396116.3.579.2. 72 1942 Unknown [id number] 2.16.840.1.000744.3.579.2. 72 1942 Unknown [id number] 2.16.840.1.460413.3.579.2. 1942 Unknown [id number] 2.16.840.1.442654.3.579.2. 72 1942 Unknown [id number] 2.16.840.1.472814.3.579.2. 72 1942 Unknown [id number] 2.16.840.1.462178.3.579.2. 72 1942 Unknown [id number] 2.16.840.1.522367.3.579.2. 72 1942 Unknown [id number] 2.16.840.1.141290.3.579.2. 72 1942 Unknown [id number] 2.16.840.1.023026.3.579.2 727 1942 Unknown [id number] 2.16.840.1.504339.3.579.2. 727 1942 Unknown [id number] 2.16.840.1.289120.3.579.2. 727 1942 Unknown [id number] 2.16.840.1.518372.3.579.2. 727 1942 Unknown [id number] 2.16.840.1.159233.3.579.2. 727 1942 Unknown [id number] 2.16.840.1.232073.3.579.2. 727 1942 Unknown [id number] 2.16.840.1.860002.3.579.2. 727 1942 Unknown [id number] 2.16.840.1.447420.3.579.2. 727 1942 Unknown [id number] 2.16.840.1.294052.3.579.2. 727 1942 Unknown [id number] 2.16.840.1.108751.3.579.2. 727 Medicare [id number] 2.16.840.1.552133.19 Medicare Medicare [id number] Unknown [id number] 2.16.840.1.837002.3.579.2. 531 Unknown [id number] 2.16.840.1.712341.3.579.2. 531 Social History Date Type Detail Facility Start: 03-29-2020 End: 01-19-2023 Tobacco smoking status Never smoked tobacco (finding) [facility] Start: 09-25-2012 End: 12-12-2021 Tobacco smoking status Never [facility] Start: 01-19-2023 End: 09-15-2023 Sex Assigned At Female [facility] Start: 1940 Sex Assigned At Female F [facility] Start: 11-16-2017 End: 01-19-2023 Tobacco use and exposure Smokeless tobacco non-user [facility] Start: 01-28-2020 End: 09-07-2023 Alcohol intake Current drinker of alcohol (finding) [facility] Start: 08-31-2013 Alcohol Comment beer, wine (3- 4 beers a day on occasion) [facility] Start: 1940 Sex Assigned At Not on file [facility] [place] Tobacco smoking status [facility] Tobacco smoking consumption unknown [facility] [employer] Start: 01-19-2023 End: 09-15-2023 History of Social function [facility] [employer] How often to you hav e a drink containing alcohol? Never [facility] Start: 09-28-2023 Alcohol intake Ex-drinker (finding) [facility] Sex Female (finding) [facility] Start: 01-17-2023 Alcoholic beverage intake Lifetime non-drinker (finding) [facility] Start: 01-16-2023 Alcohol Comment caffiene 4cups/day N [facility] NEGATED: Highlighted rowStart: NINF History of tobacco use Passive smoker [facility] [employer] Medical Equipment Procedure Code Equipment Code Equipment Origin al Text Equipment Identifier Dates Lens Iol +21 Niels p 13mm 6mm Pc - [id number] Start: 09-11-2013 Lens Iol +20.5 [employer] Iq - [id number] Start: 09-18-2013 Comment on above: Description: IQ Functional Status Date Assessment Result Facility 07-12-2024 Functional Status N/A [facility] 07-02-2024 Functional Status N/A [facility] 03-02-2024 Functional Status No [facility] 07-10-2023 Functional Status N/A [facility] 07-10-2023 Functional Status [facility] 03-10-2023 Functional Status N/A [facility] 03-10-2023 Functional Status [facility] 05-10-2022 Functional Status No [facility] 05-09-2022 Functional Status [facility] Clinical Notes 05-23-2014 to 03-27-2025 Telephone Encounter - Chaparro Yarbrough OD - 03/27/2025 12:33 PM EDTTelephone Encounter - Chaparro Yarbrough OD - 03/27/2025 12:33 PM EDT Note Date & Type Note Facility 03-27-2025 Telephone encounter Note Form atting of this note might be different from the original. Rx sent in Patrice Yarbrough [facility] 03-27-2025 Miscellaneous Notes Formattin g of this note might be different from the original. Rx sent in Patrice Yarbrough documented in this encounter [facility] 03-15-2025 Evaluation note Diagnosis Onset Date Resolution Alzheimer dementia acute March 15, 2025 2:30pm Chronic heart failure with preserved ejection fraction (HFpEF) acute March 15 2:30pm Chronic venous insufficiency of lower extremity acute March 15, 2025 2:30pm Compulsive skin picking acute A ugust 2024 2:30pm Major depression acute March 152024 2:30pm Medicare annual wellness visit, subsequent acute March 15 2:30pm NAWAF (obstructive sleep apnea) acute March 15, 2025 2:30pm Psoriatic arthritis acute Augus t 2024 2:30pm Pulmonary hypertension acute Au evgeny 2024 2:30pm [facility] Work Phone: [phone] 828-998812-05-2024 Hospital Discharge instructions Patient Education 07/12/2024 08:05:10 [...] start to feel better. If you stop takingthem too soon: You may feel sick again. [...] as soon as possible. Do not take doubleor extra doses. What are the risks of [...] in the future with bacteria that do notrespond to medicine (antibiotic-resistant infection). Antibiotics can cause bacteria to change so that if the antibiotic is taken again, the medicine cannot kill the bacteria. These infections can bemore serious because they are hard, or sometimes [...] your antibiotics unless told otherwise. Drink enough fluidto keep your urine pale yellow. Ask your [...] provider. Document Revised: 02/22/2023 Document Reviewed: 02/22/2023 [employer] Patient Education 2023 [employer]. Follow Up Care 07/06/2024 11:33:09 With:CARON CARVAJAL PA-C, URL Address: [facility] [address] [place] [address] When: Unknown [facility] 11-25-2024 Hospital Discharge instructions Patient Education 07/02/2024 16:12:38 Urinary Tract Infection, Adult Urinary Tract Infection, Adult A urinary tract infection (UTI) is an infection of any part of the urinary tract. The urinary tractincludes the kidneys, ureters, bladder, and urethra. These organs make, store, and get rid of urinein the body. An upper UTI affects the [...] Treatment for this condition includes: Antibiotic medicine. Jrmx-vho-vrhxhoj medicines to treat discomfort. Drinking enough water to stay hydrated. If you have frequent infections or have other conditions such as a kidney stone, you may need to see a health care provider who specializes in the urinary tract (urologist). In rare cases, urinary tract infections can cause sepsis. Sepsis is a life- threatening condition that occurs when the body responds to an infection. Sepsis is treated in the hospital with IV antibiotics, fluids, and other medicines. Follow these instructions at home: Medicines Take nsnw-thh-tymokfx and prescription medicines only as told by your health care provider. If you were prescribed an antibiotic medicine, take it as told by your health care provider. Do notstop using the antibiotic even if you start [...] told by your health care provider. Do notstop using the antibiotic even if you start to feel better. Keep all follow-up visits. This is important. This information is not intended to replace advice given to you by your health care provider. Make sure you discuss any questions you have with your health care provider. Document Revised: 03/01/2021 Document Reviewed: 03/06/2021 [employer] Patient Education 2023 [employer]. 07/02/2024 16:12:28 ESBL Infection ESBL Infection ESBL [...] energy. Normally, they do not cause infection unlessthere are too many bacteria, or unless the bacteria travel to other parts of the body where they are not normally found. ESBL infections are hard to treat. Bacteria that make ESBL are sometimes called super bugs because they are very hard to get rid of. Lab tests must be done to find the type of ESBL bacteria that iscausing the infection and the right antibiotic medicine [...] or on other surfaces. People who are infectedwith ESBL bacteria may shed the bacteria in [...] have recently been admitted to a hospital, mcc, or other health care facility. You have [...] clean their hands with an alcohol-based hand vapor coater, before they enter or leave your room. [...] care for you, and then remove the glovesand gown before leaving your room. ?Ask your [...] clean their hands with an alcohol-based hand vapor coater, before they enter or leave your room. Taking antibiotics exactly as told by your health care provider. Washing your hands with soap and water for at least 20 seconds, or cleaning your hands with an alcohol-based hand vapor coater, after you do any of these things: [...] seconds or cleaning your hands with an alcohol- based hand vapor coater, especially after using the bathroom. This information is not intended to replace advice given to you by your health care provider. Make sure you discuss any questions you have with your health care provider. Document Revised: 12/05/2020 Document Reviewed: 12/06/2020 [employer] Patient Education 2023 [employer]. 07/02/2024 16:12:27 Antibiotic Resistance Antibiotic Resistance Antibiotics [...] with an antibiotic over and over again. Overtime, the bacteria become resistant to the antibiotic. [...] from animals that were treated with antibiotics. Antibiotic- resistant bacteria can be passed through the food. [...] from a past prescription. Ask your health careprovider how to safely get rid of the [...] provider. Document Revised: 02/22/2023 Document Reviewed: 02/22/2023 [employer] Patient Education 2023 [employer]. Follow Up Care 07/02/2024 09:46:39 With:JANETTE CAMACHO, CARON Kwan, URL Address: [address] [address] When: Unknown Comments:F/u in 3 months [facility] [place] [id number] NoteUrology Office/Clinic Note Chief Complaint Referral HPI Staff 83 year old female Referred by Tobi Pacheco DO for Cystitis. Pt. c/o urgency, urge incontinence ( withUTI urge incontinence is worse). Pt. daughter states [...] hx of dementia, daughter present. Lives at [facility]. 1. Recurrent UTI (N39.0: Urinary [...] E. Coli, pt had to be tx w/IM Ertapenem x 10 D which cleared the [...] me. Authenticated by Lakshmi (more content not included)...[facility]Result Comment: Electronically Signed By: CARON CARVAJAL PA-C\.br\Date and Time Signed: 07/02/2416:36 EST\.br\Electronically Co-Signed By: Ant Bruner PA-C\.br\Date and Time Co-Signed: 07/02/2416:24 [id number] NotePatient Education Infectious Disease ESBL Infection ESBL (extended-spectrum [...] energy. Normally, they do not cause infection unlessthere are too many bacteria, or unless the bacteria travel to other parts of the body where they are not normally found. ESBL infections are hard to treat. Bacteria that make ESBL are sometimes called super bugs because they are very hard to get rid of. Lab tests must be done to find the type of ESBL bacteria that iscausing the infection and the right antibiotic medicine [...] or on other surfaces. People who are infectedwith ESBL bacteria may shed the bacteria in [...] have recently been admitted to a hospital, mcc, or other health care facility. ??? You [...] clean their hands with an alcohol-based hand vapor coater, before they enter or leave your room. [...] wash their hands wi (more content not included)...[facility] Evaluation + Plan note Diagnostic Tests Pending * Urine Culture 05/15/24 [facility] 09-27-2024 Evaluation + Plan note Diagnostic Tests Pending * Urine Culture 05/04/24 [facility] 08-07-2024 NoteEchocardiology Procedure Exam Date/Time Accession # Ordering Echo Transthoracic w/ 03/14/2024 14:23 EDT [id number] Gera Thomas PA-C Contrast CPT code 94821 C8929 Reason for Exam (Echo Transthoracic w/ Contrast) Shortness of breath, Edema, Dizziness R60.0;Evaluate Ejec Fraction Report [facility] [address] [place] [address] Adult Echocardiogram Report Name: CARIDAD CARIAS I Study Date: 03/14/2024 01:07 PM BP: 143/63 mmHg Patient [facility] HR: 59 : 1940 Gender: Female Height: 60 in Age: 83 yrs Ethnicity: [facility] Weight: 208 lb Reason For Study: Evaluate [...] David Calderon MD Transcribed by: CECILE Technologist: [facility]08-05-2024 Telephone encounter Note* Telephone Encounter - Chaparro Yarbrough OD - 03/12/2024 10:15 AM EDT Rx sent in [facility]08-05-2024 Miscellaneous Notes* Telephone Encounter - Chaparro Yarbrough OD - 03/12/2024 10:15 AM EDT Rx sent in * Telephone Encounter - Michelle Robbins - 03/09/2024 9:43 AM EDT Patient has been reminded to check with pharmacy 24 to 48hr after request. Pt is identified by name and birthdate: Yes Patient phones requesting refills as follows: Requested Prescriptions Pending Prescriptions Disp Refills latanoprost (XALATAN) 0.005 % ophthalmic solution 2.5 mL 11 Sig: Use 1 Drop in both eyes once daily. Please review and advise. [facility] Telephone encounter Note * Telephone Encounter - Michelle Robbins - 03/09/2024 9:43 AM EDT Patient has been reminded to check with pharmacy 24 to 48hr after request. Pt is identified by name and birthdate: Yes Patient phones requesting refills as follows: Requested Prescriptions Pending Prescriptions Disp Refills latanoprost (XALATAN) 0.005 % ophthalmic solution 2.5 mL 11 Sig: Use 1 Drop in both eyes once daily. Please review and advise. [facility]02-08-2024 Hospital Discharge instructions* Discharge Instructions* Dennise Sol DO - 09/15/2023 11:19 AM EST Please call the facility physician for a reexamination Return to the emergency department if she develops worsening confusion beyond her baseline, headache, dizziness, blurry vision, neck or back pain, numbness or weakness, slurred speech, chest pain or shortness of breath, abdominal pain, nausea vomiting, fevers or chills or other symptoms or concerns * Attachments The following attachments cannot be sent through Care Everywhere. * Fall Prevention ([place]) [facility] NoteHNO ID: [id number] Author: CHAPARRO YARBROUGH, ANDRESSA Service: ? Author Type: DEPUTY SHERIFF BAILIFF Type: Progress Notes Filed: 09/07/2023 12:53 Note [...] Chaparro Yarbrough, OD September 07, 2023 12:50 [facility] 08-31-2023 NoteAdmission and Discharge Information Admitting Physician - [...] may require titration of Seroquel. [facility] She was discharged in stable condition. - [...] hx, worsening, Consult and Co-manage Consult to Eeg Technologist - Completed -- 08/28/23 0:39:00 EST, Other [...] LEATHA Zaman Within 2 to 4 weeks [address] [id number]- Additional Instructions:[facility] HospitalComment on above:Result Comment: Electronically Signed By: Davy RODRIGUEZ, Ahmachato\.br\Date and Time Signed: 08/31/23 11:59 [id number] NotePT Evaluation done this date. Pt. with on AM-PAC. Needs cues and supervision for safety with all activities due to dementia. Recommend 28/02 supervision but no further PT needs.[facility]01-22-[facility]24 NoteChief Complaint I had a fall couple of [...] an assisted living facility. Patient's daughter states forthe last week she has had increasing confusion [...] ?C(Oral) HR: 91(Monitored) BP: 128/76 SpO2: 93% WT:90.1 kg GEN: General appearance normal. Well-kempt. No distress. No visualized deformities or trauma. CARDIO/VASC: Limbs without significant edema and appear well-perfused. PULM: Normal work of breathing. SKIN: Visualized skin is intact and without lesions aside from age-related findings. MS: Affect is normal. Patient is alert. Not oriented to [place], year, or month. Attention seems fairly normal [...] Oral, Bedtime Sodium Chlori (more content not included)...[facility] HospitalComment on above:Result Comment: Electronically Signed By: Aleisha CROWLEY, Rashida Chand\.br\Date and Time Signed: 08/29/23 07:31 EST\.br\Electronically Co-Signed By: Tapan Bender DO\.br\Date and Time Co-Signed: 08/29/23 10:12 [id number] Note Family requesting placement in dementia facility. CRM is working with patient/family for appropriate d/c planning and referral is out to facilities with dementia units. SW will remain available and assist as/if needed.[facility]01-21-2024 NoteChief Complaint I had a fall couple of [...] to have progressed from mild to moderate dementia.She had not tolerated Aricept for this was felt to be contributing to the cardia and with Namenda she became dizzy therefore these agents were discontinued. Neurology had question Lewy body dementia for she was having hallucinations as well. Does have known history of remote lacunar infarcts. She also noted to have compulsive skin picking neurology had previously advised to avoid first generationantihistamines therefore she had been on Zyrtec. With [...] Workup did demonstrate only a mildly elevated sedrate, B12 and thyroid function studies were within normal limits as was serum ammonia. MRI was negative for any acute ocular events. Physical and Occupational Therapy had recommended prison facility therefore she was discharged to the transitional care unit. Per review of the chart it appears on 21 July she was discharged from the TCU to [facility]. Other past medical history included in review of previous charts includes obstructive sleep apnea with poor tolerance of CPAP, anxiety depression, psoriatic arthritis for which she had seen Dr. Tyalor, hypertension, GERD, history of cervical and lumbar 9 disease with remote lumbar surgeries. Patient was brought into the em ergency department this evening with below Been advised by the emergency history department chair to access to the patient's daughter who is a nurse practitioner there was once again concerns about the patient having increasing confusion and experiencing agitation. Been advised that on this evening of presentation patient was [facility] during around and disoriented. There was no history of any falls. Been advised by the emergency department physician who in turn and been advised by patient's daughter the patient's daughterhad been advised that the only circumstance which patient would remain a resident at the assisted living would be of the patient's daughter would stay with the patient wriyjq-zgm-edyqe. Patient's daug hter was not present during the time of this interview. Admit advised that patient's daughter had been appropriately searching other facilities looking for a facility that had a lockdown unit for dementia to avoid further wandering. As it is a weekend it would be unlikely that we would be able tomake arrangements for before Tuesday patient's daughter was understandably concerned about patient being able to receive an appropriate level of care from where she came. Asking patient herself if sheis felt she has been confused she confirmed this was uncertain of what time. I did ask her points of orientation she was oriented to self, when I asked her location she stated that she was at a friend 's house in [place], she was not oriented to president even with multiple- choice, she was able to do simple math. [...] of breath, no cou (more content not included)...[facility] HospitalComment on above:Result Comment: Electronically Signed By: Reuben DREW DO\.br\Date and Time Signed: 08/28/23 00:37 [id number] Evaluation note* Encounter Date Diagnosis Assessment Notes Treatment Notes Treatment Clinical Notes Aug, Dysuria (ICD-10 - R30.0) [facility] Other 12-18-2023 NoteAdmission and Discharge Information Admitting Physician - [...] 58.4 % Lymph Auto - 32.5 % Walker Auto - 7.4 % Eos Auto - 1.4 % Basophil Auto - 0.3 % Neutro Absolute - 3.6 E9/L Lymph Absolute - 2.0 E9/L Walker Absolute - 0.5 E9/L Eos Absolute - [...] - 90 mg/dL POC Device SN - [id number] POC User ID - [id number] POC Username - JAGRUTI FLOR CBC w/ [...] Rate Automated (07/11/2023) Sed (more content not included)...[facility] CampusComment on above: Result Comment: Electronically Signed By: Rimma Paez\.br\Date and Time Signed: 07/19/23 13:14 EST\.br\Electronically Co-Signed By: HARPER RODRIGUEZ, Valente\.br\Date and Time Co-Signed: 07/25/23 09:12 [id number] Hospital Discharge instructions Patient Education 07/13/2023 11:39:06 Sleep Apnea, Maoj-ao-Ggle Sleep Apnea Sleep apnea affects breathing during [...] quitting, ask your doctor. General instructions Take gyes-jki-gptcwje and prescription medicines only as told by [...] provider. Document Revised: 03/03/2022 Document Reviewed: 07/03/2021 [employer] Patient Education 2022 [employer]. 07/13/2023 11:38:57 Hyponatremia, Vfao-ov-Tfdj Hyponatremia Hyponatremia is when the amount of [...] symptoms. Follow these instructions at home: Take anja-rni-pkferum and prescription medicines only as told by [...] provider. Document Revised: 02/02/2022 Document Reviewed: 02/02/2022 [employer] Patient Education 2022 [employer]. Follow Up Care 07/10/2023 16:40:18 With:EDMOND PACHECO DO Address: [facility] [place] [address]- When:2 weeks Comments:Call for followup appointment With:Andres RODRIGUEZ, LEATHA Zaman Address: [address] [place] [address]- When:2 to 4 weeks [facility]12-05-2023 Evaluation + Plan noteExtracted from: Title:APSO [...] Remote history of lower back surgery at [facility]. Patient is on Zanaflex we will continue [...] Remote history of lower back surgery at [facility]. Patient is on Zanaflex we will continue [...] Remote history of lower back surgery at [facility]. Patient is on Zanaflex we will continue [...] Scheduled Provider: Location:.CARDIO Appointment Type:CV Holter/Event (FT) [facility]12-05-2023 NoteBasic Information The patient is a [...] significantly confused and hallucinating and [facility]. The patient was brought in by [...] Count -- 1 -- (more content not included)...[facility] HospitalComment on above:Result Comment: Electronically Signed By: Rashida Moraes RN\.br\Date and Time Signed: 07/12/23 07:18 EST\.br\Electronically Co-Signed By: Austyn Campos MD\.br\Date and Time Co-Signed: 07/12/2309:57 [id number] NoteChief Complaint significant change in mental status [...] had remote surgery lower lumbar spine at [facility]. Patient was brought into the emergency department [...] having the [employer] channel on with the [employer] movie she was uncertain. She was not oriented to the president's name but she was able to do simple math i.e. 2+2 = 4. I therefore called patient's daughter Linh who is the power of car painter at [phone] to obtain patient's recent history. Her daughter [...] twice daily and she does have a oracle identity management consultant. She does state since her neuropsych evaluation [...] no dizziness, no numbness, (more content not included)...[facility] HospitalComment on above:Result Comment: Electronically Signed By: Reuben DREW DO\Date and Time Signed: 07/11/23 00:06 [id number] Evaluation note* Encounter Date Diagnosis Assessment Notes Treatment Notes Treatment Clinical Notes Jun, Acute cystitis without hematuria (ICD-10 - N30.00) Jun, Primary hypertension (ICD-10 - I10) [facility] Other 11-14-2023 Evaluation note* Encounter Date Diagnosis Assessment Notes Treatment Notes Treatment Clinical Notes 14 Jun, 2023 Acute cystitis without hematuria (ICD-10 - N30.00) [facility] Other 11-13-2023 Evaluation note* Encounter Date Diagnosis Assessment Notes Treatment Notes Treatment Clinical Notes 13 Jun, 2023 Dysuria (ICD-10 - R30.0) [facility] Other 10-10-2023 Evaluation note* Encounter Date Diagnosis Assessment Notes Treatment Notes Treatment Clinical Notes 10 May, 2023 Obstructive sleep apnea (ICD-10 - G47.33) AHI 12 This patient is aware of the benefits associated with NAWAF: With continued use, the patient reduces the risk for DE, CVA, HTN, cardiac dysrhythmias and sudden cardiac [...] Acute cystitis without hematuria (ICD-10 - N30.00) [facility] Other 10-04-2023 Evaluation note* Encounter Date Diagnosis Assessment Notes Treatment Notes Treatment Clinical Notes May, Dysuria (ICD-10 - R30.0) [facility] Other 09-19-2023 Evaluation note* Encounter Date Diagnosis Assessment Notes Treatment Notes Treatment Clinical Notes Apr, Mild episode of recurrent major depressive disorder (ICD-10 - F33.0) [facility] Other 08-30-2023 Evaluation note* Encounter Date Diagnosis [...] use, the patient reduces the risk for DE, CVA, HTN, cardiac dysrhythmias and sudden cardiac [...] improve w/ Bactrim, which was moderately sensitive [place] w/ Levoquin x 5 days Mar, Palpitation (ICD-10 - R00.2) Hydrate and avoid stimulants. Continue Metoprolol at this time. 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 Requires reminders to use adaptive device. Fall precautions [facility] Other 08-23-2023 Evaluation note* Encounter Date Diagnosis Assessment Notes Treatment Notes Treatment Clinical Notes Mar, Acute cystitis without hematuria (ICD-10 - N30.00) [facility] Other 08-07-2023 Evaluation + Plan noteExtracted from: Title:Discharge Note Author:Davy RODRIGUEZ, Alex Hernandez ate:03/14/23 Stable Discharge To, Anticipated II - Fdc Unit Discharged to - Home independently TCU [...] LEATHA Zaman Within 2 to 4 weeks [place] [address] [place] [address]- Additional Instructions: Fall Prevention in the Home, Adult, Omdb-jx-Hlyd Extracted from: Title:APSO Note Author:Barrie Rodriguez DO [...] unspecified (R41.82: Altered mental status, unspecified) [facility] Straight Fwd 25 Minutes 08714 2. Fall at home (W19.XXXA: Unspecified fall, [...] Sbsq Hospital Care/Day Straight Fwd 25 Minutes [id number] Sbsq Hospital Care/Day Straight Fwd 25 Minutes 19858 2. Fall at home (W19.XXXA: Unspecified fall, [...] Resource Center Extracted from: Title:APSO Note-neurology Author:Judy CROWLEY [facility] ria Date:03/12/23 Reason for consult: Acute on chronic [...] Altered mental status, unspecified) Ordered: [facility] Hospital Care/Day Moderate 35 Minutes 53582 2. Fall at home (W19.XXXA: Unspecified fall, [...] BID, # 90 tab(s), Refills(s) 0, Pharmacy: [facility]/pharmacy #[id number], 152.4, cm, 05/09/22 21:11:00 EDT, Height/Length [...] Vital Signs Weight Extracted from: Title:Consult Note-neurology Author:Jose Kim RN ichole Date:03/11/23 Reason for consult: Acute on [...] CBC w/ Auto Diff Consult to Neurology [facility] Level Occupational Therapy Evaluate Patient, Develop a [...] Scheduled Provider:Inderjit ASHRAF MD Location:Extended Care Appointment Type:[facility]08-07-2023 Hospital Discharge instructions Patient Education 03/14/2023 09:22:15 Fall Prevention in the Home, Adult, Qrhf-wg-Bgwr Fall Prevention in the Home, Adult Falls [...] Keep items that you use often in oywq-hv-xjaui places. Lower the shelves around your home [...] of the way. Do not use floor mongolian or wax that makes floors slippery. What [...] Disease Control and Prevention, STEADI: www.cdc.gov National [place] on Aging: www.diann.nih.gov Contact a doctor if: [...] provider. Document Revised: 04/26/2022 Document Reviewed: 02/25/2021 [employer] Patient Education 2022 [employer]. Follow Up Care 03/10/2023 11:16:19 With:Austyn Campos MD, NEU Address: [place] [address] [place] [address]- When:2 to 4 weeks [facility]07-10-2023 Evaluation note* Encounter Date Diagnosis Assessment Notes Treatment Notes Treatment Clinical Notes Feb, Obstructive sleep apnea (ICD-10 - G47.33) AHI 12 [facility] Other 07-03-2023 Miscellaneous Notes* Telephone Encounter - Joyce Mohamud RN - 02/07/2023 2:27 PM EDT RN returned daughter's phone call, no answer, left a message that I faxed over the last office visit notes to Dr. Tobi Pacheco to [facility] [phone]. Joyce Mohamud RN * Telephone Encounter - Blaise Pathak - 02/07/2023 2:11 PM EDT Dtr, Linh Riley LVM on [facility] Nurse Line on 02/07 @ 1:25P. Linh stated she was sorry she missed the Nurse call re: mom. Pt. verified 1940. Linh provided the fax number for Dr. Tobi Pacheco . Linh's contact number is . Thank you, Blaise documented in this encounterThe [facility]07-03-2023 Miscellaneous Notes* Telephone Encounter - Joyce Mohamud RN - 02/07/2023 12:55 PM EDT RN called daughter Linh back, no answer, left a detailed message that we will need the fax number to sent the requested notes to the new PCP Tobi Pacheco, [place], [place]. Joyce Mohamud RN * Telephone Encounter - Blaise Higginbotham Pss - 02/07/2023 12:01 PM EDT Dtr, Linh Riley LANDRY on [facility] Nurse Line on 02/10 @9:53A. Linh states pt was recently seen by the BODY BUILDER APPRENTICE.She is wondering if she can get a Report sent to pt PCP, Tobi Pacheco in [place], [place]. Linh is POA and requesting a return call back at . Thank you, Blaise documented in this encounterThe [facility] System06-23-2023 Miscellaneous Notes* Telephone Encounter - LORY Vallejo [...] that you may find helpful is The [facility]-Information &Referral line. Call [phone] and select option 0 for all other services & request senior resources. When reviewing the list of communities, please reference the abbreviation gonzalez listed below. IL (Independent Living) AL (Assisted Living) AL-MC (Assisted Living with secure memory care unit) AL-MS (Assisted Living with memory care support) SN-Fdc LTC-MC (long-term care with secure memory care unit) LTC-MS (long-term care with memory support) [facility] ([place]; AL; SN) *Pet friendly [address] [place] [address] [facility] ([place]; SN) *Pets welcome [address], [place] [address] [facility] (AL-MC; SN) *Pet friendly for small pets [address] [place] [address] [facility] Life Plan [facility] ([place]; [place]; AL-MC; SN) *Possibly pet friendly [address] [facility] [place] [place] [address] [facility] (MC; SN; LT) [address], [place] [address] [facility] ([place]; [place]) [address] [facility] , [place], [place] [address] [facility] ([place]; AL; AL-MC; SN; [facility]) [address] [place], [place] [address] [facility] (AL) [address] [place] [address] [facility] ([place]; AL; AL-MC; SN) [address] [place] [address] SW will remain available. LORY Vallejo documented in this encounterThe [facility]health System06-14-2023 Instructions* Patient Instructions* LORY Vallejo - 01/19/2023 2:35 PM EDT Dear Reyna Jv and daughter Linh, Our team had the pleasure of seeing you today at [facility]. We reviewed your evaluation of memory, mood and overall functioning. We discussed the testing we completed. We use a tool called the MOCA (Madras Cognitive Assessment). This is a brief tool [...] a button. Some options for this are: [employer]: Call or visit https://Vedicis/ & click on Seniors tab -Mobile System. -Fall detection. -Medication reminders. -GPS monitoring. -Alirio fencing option for wandering. -Checks heart rate, blood pressure, temperature, and oxygen levels. -Worn as a wristband. Life Alert: Call or visit www.[employer] -Offers home based and mobile system. -Offers a push button for the shower. -Comes in a lanyard. Lifefone: Call or visit www.Technisys -Home based or mobile system. -Fall detection. -GPS detects location of emergency. -Water proof. -Worn as a lanyard, wristband, or offers a push button. Lifeline: Call or visit wwwMouth Foods -Home based & mobile system. -Fall detection. -GPS detects location of the emergency. -Water resistant; can be worn in the shower. -Worn as a wristband or lanyard. Lively: Call or visit wwwGettingHired/medical-alerts -Offers mobile systems. -Offers fall detection. -Comes in a lanyard. Also compatible with [employer]. Medical Alert: Call or visit [employer] -Offers home based & mobile system. -Mobile system offers GPS monitoring. -Fall detection for all systems. -Systems can be worn in the bath or shower. -Two way speaker allows you to communicate with a trained response specialist who will determine who to contact for help (family, friends, or emergency responders). -Comes in a lanyard or wristband. Medical Guardian: Call or visit www.medicalFuture Drinks CompanynStrategic Global Investments -Offers home based and mobile system. -GPS tracking for mobile system. -Water resistant, not water proof. -Worn as a lanyard or wristband. Mobile Help: Call or visit www.Locate[place] -Offers home based & mobile system. -Comes in a lanyard or small mobile device. UnaliWear: Call or visit isocket.Ke[employer] Group -Home based and mobile system. -Fall detection. [...] per week. Contact: Local: ; Toll free: [phone] Family Caregiver [place] (web site: Caregiver.org) JOEY Raul-- a secure online solution for quality information, support, and resources for family caregivers. Contact: Toll-free number: [phone] Advance Directives As per our discussion of advanced directives, we understand you have these documents in place whichis excellent. Follow Up Our office can be reached by calling [phone] Option 1. Sincerely, Quiana Waterman APRN.GROUP UNDERWRITER CARLINE Strickland, [facility] LORY Vallejo documented in this encounterThe [facility] System06-14-2023 NoteHNO ID: [id number] Author: Quiana Waterman APRN.GROUP UNDERWRITER Service: ? Author Type: Nurse Specialist Type: Progress Notes Filed: 01/20/2023 12:16 PM Note Text: Date: January 19, 2023 CARIDAD Yunier CARIAS [address] [facility] [address] [facility] INITIAL PATIENT EVALUATION Reason for Consult: Cognitive changes, Mobility decline, and Behavioral changes I had the pleasure of seeing this 82 year old year old female at the [facility]. The patient is referred by SELF Patient [...] Activities of Daily Living Lomas Index of [place] in Activities of Daily Living (A.D.L.) Bathing: [...] automobile with assistance of (more content not included)...[facility]06-14[facility] Nurse Note* Coty Duque RN - 01/19/2023 12:46 PM EDT Caridad Carias is a 82 year old year old right handed woman Accompanied by: daughter. 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 Patient states that she is having trouble at home and with memory Vital Signs: BP 160/81 (BP Site: Left Arm, BP Position: Sitting, BP Cuff Size: Regular Adult) Pulse (!) 54 Wt 84.5 kg (186 lb 4.8 oz) BMI 36.38 kg/m Coty Duque RN documented in this encounterThe [facility] System06-14-2023 History of Present illness Narrative* Quiana Waterman APRN.GROUP UNDERWRITER - 01/19/2023 12:30 PM EDT Images from the original note were not included. Date: January 19, 2023 [place]AD [place] [address] [address] [place] [address] [facility] INITIAL PATIENT EVALUATION Reason for Consult: Cognitive changes, Mobility decline, and Behavioral changes I had the pleasure of seeing this 82 year old year old female at the [facility]. The patient is referred by SELF Patient [...] Activities of Daily Living Lomas Index of [place] in Activities of Daily Living (A.D.L.) Bathing: [...] be done by another person. (1 POINT) [place] - [place]ctor Instrumental Activities of Daily Living [...] POA: Yes, copy received; Linh dtr is [facility]. Financial POA: Yes Consult [facility] FINISH SAW OPERATOR if not completed: role introduced SW will send info on local [facility] communities to the pt's dtr for review. 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 -1 son traumatically in 2008; 1 dtr Linh is local and the pt's main support. -Guardian No -Is patient a ? No I have personally reviewed and verified the above information. Quiana Waterman APRN.GROUP UNDERWRITER PAST MEDICAL HISTORY Diagnosis Date Glaucoma suspect [...] daily. EPINEPHrine (EPIPEN) 0.3 mg/0.3 mL auto-injector Ycopxthxsthvu-Qymhfabp-Jlasmf (CENTRUM SILVER) tab Take 1 tablet by [...] Evaluation: Clock Drawin/5 Abstract thinking was poor. meterman memory was fair to poor. She could name 11 animals in 60 seconds and 3 words beginning with letter F in one minute. No results found for: TSH, B12, FOLATE, XDUQ99-jyc results available in scanned documents. However B-12 [...] diagnosis. This is her first visit to [facility]. MoCA administered with score of 19/30. This [...] (Namenda) would deferto her current providers in [facility], neurology and psychiatry. Pt resides alone [...] pt Plan: Continue same treatment plan. (G47.33) NWAAF (obstructive sleep apnea) Comment: NO CPAP-pt refused PLAN -Follow up as needed. I spent a total of 100 minutes on the date of the service which included preparing to see the patient, lqed-mk-icuj patient care, completing clinical documentation, obtaining and/or reviewing separately obtained history, counseling and educating the patient/family/caregiver, ordering medications, te sts, or procedures, communicating with other HCPs (not separately reported) and care coordination (not separately reported). Quiana Waterman APRN, Geriatric Clinical Nurse Specialist [facility] CC: 1. Rojas Brown, ANDRESSA, (fax) [phone] 2. Caridad Carias, [address] [facility] [id number] documented in [facility]* Encounter Date Diagnosis Assessment Notes Treatment Notes Treatment Clinical Notes December, Closed nondisplaced fracture of styloid process of left ulna, initial encounter (ICD-10 - S52.615A) [facility] Other 05-12-2023 Evaluation note* Encounter Date Diagnosis Assessment Notes Treatment Notes Treatment Clinical Notes December, Left arm pain (ICD-10 - M79.602) [facility] Other 03-07-2023 Evaluation note* Encounter Date Diagnosis Assessment Notes Treatment Notes Treatment Clinical Notes Oct, Puncture wound (ICD-10 - T14.8XXA) [facility] Other 03-06-2023 Evaluation note* Encounter Date Diagnosis Assessment Notes Treatment Notes Treatment Clinical Notes Oct, Open bite of unspecified finger without damage to nail, initial encounter (ICD-10 - S61.259A) Oct, Cellulitis of left upper extremity (ICD-10 - L03.114) Elevate and soak in warm water daily. Oct, Bitten by cat, initial encounter (ICD-10 - W55.01XA) Check on Tetanus status [facility] Other 02-06-2023 Evaluation note* Encounter Date Diagnosis Assessment Notes Treatment Notes Treatment Clinical Notes Sep, NSVT (nonsustained ventricular tachycardia) (ICD-10 - I47.29) Continue Metoprolol and avoid stimulants. Encouraged to exercise and lose weight. Sep, Obstructive sleep apnea (ICD-10 - G47.33) This patient is aware of the benefits associated with NAWAF: With continued use, the patient reduces the risk for DE, CVA, HTN, cardiac dysrhythmias and sudden cardiac [...] continue SSRI. 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 Pt is identified by name and birthdate: Yes Patient phones requesting refills as follows: Requested Prescriptions Pending Prescriptions Disp Refills latanoprost (XALATAN) 0.005 % ophthalmic solution 2.5 mL 0 Please review and advise. documented in this encounterThe [facility]10-[facility]-2022 Miscellaneous Notes* Telephone Encounter - Chaparro Yarbrough, OD - 06/07/2022 2:18 PM EDT Gave 1 refill last refill pt need to be seen before any refills Patrice Yarbrough * Telephone Encounter - Rimma Lo, PATSY - 06/07/2022 1:21 PM EDT Patient called regarding refill. documented in this encounterThe [facility]22 Hospital Discharge instructions Patient Education 05/12/2022 14:42:47 Core Measures: Stroke (Cerebrovascular Accident) [facility], ([facility]) Stroke (Cerebrovascular Accident) A stroke is acute [...] factors for stroke, work with your health chronic care nurse to control them. High Blood Pressure: High [...] Please call [facility]oking Cessation Program at [phone] ([facility]), or [phone], ext. [phone] Diabetes: Work with your healthcare professional to [...] cholesterol diet, you can call our [employer] aviation mechanic at [phone] Ext. [phone]. The goal for total cholesterol is less [...] your risk of stroke with your health chronic care nurse. TREATMENT TIME IS OF THE ESSENCE! Medications [...] Measures will be takento prevent short and terminal system operator complications, including aspiration pneumonia, blood clots in [...] for more information on strokes, log onto www.[email or web address] or [email or web address] or call the [place] [employer] at [phone]. Revised 08/2018 Follow Up Care 05/09/2022 20:58:58 With:EDMOND PACHECO Address: [address] [place] [address]- Business (1) When:05/19/2022 15:00:00 With:Austyn Campos MD, NEU Address: [address] [place] [address] [place], [place] [address] [address]- Business (1) When:06/08/2022 11:15:00 [facility]10-05-2022 Evaluation + Plan noteExtracted from: Title:Discharge [...] MD, NEU Within 2 to 4 weeks [address] [place] [address]- Additional Instructions: Core Measures: Stroke (Cerebrovascular Accident) [facility], ([facility]) Extracted from: Title:APSO Note- Neurology Author:Driss [...] (E66.9: Obesity, unspecified) Extracted from: Title:Consult Note-neurology Author:Judy CROWLEY N alessandro Date:05/10/22 ASSESSMENT: Suspected neurodegenerative disorder with associated [...] Basic Metabolic Panel CBC w/ Auto Diff Rodessa Stroke Scale Communication Order Physician to Nursing Continuous Pulse Oximetry CT Head or Brain w/o Contrast ECG 12 Lead Adult ED Cardiac Monitoring ED Physician consult Hospitalist for continued care eGFR Ethanol Level Extra Normangee Tube Extra SST Tube Hepatic Function Panel [...] Future Scheduled Tests Laboratory* Lipid Panel 12/15/21 [facility]05-10-2022 Evaluation + Plan note Future Scheduled Tests Laboratory* Lipid Panel 12/15/21 Radiology* NM Myocardial Spect Rest/Stress 1 Day 12/15/21 [facility]05-10-2022 Evaluation + Plan note Future Scheduled Tests Laboratory* Lipid Panel 12/15/21 [facility]05-08-2022 Evaluation + Plan noteExtracted from: Title:Discharge Note Author:YONY RODRIGUEZ, Mitra Zackary e:12/13/21 1. Fall (W19.XXXA: Unspecified fall, initial encounter) Ordered: [facility] Care/Day Moderate 25 Minutes 26510 2. Closed head injury (S09.90XA: Unspecified injury of head, initial encounter) Ordered: [facility] Care/Day Moderate 25 Minutes 21852 3. Nasal fracture (S02.2XXA: Fracture of nasal bones, initial encounter for closed fracture) Ordered: [facility] Care/Day Moderate 25 Minutes 84762 4. Facial laceration (S01.81XA: Laceration without foreign body of other part of head, initial encounter) Ordered: [facility] Care/Day Moderate 25 Minutes 62283 5. Acute alcohol intoxication (F10.929: Alcohol use, unspecified with intoxication, unspecified) Ordered: [facility] Care/Day Moderate 25 Minutes 28191 6. Hyponatremia (E87.1: Hypo-osmolality and hyponatremia) Ordered: [facility] Care/Day Moderate 25 Minutes 57480 7. Hx of ventricular tachycardia (Z86.79: Personal history of other diseases of the circulatory system) Ordered: [facility] Care/Day Moderate 25 Minutes 58639 Orders: Basic Metabolic Panel Basic Metabolic Panel [...] Intoxication Extracted from: Title:Admission H & P Author:Tin RODRIGUEZ, Steffen Pettit Date:12/13/21 1. Fall (W19.XXXA: Unspecifi ed fall, initial encounter) - Most likely 2/2 the EtOH intoxication - PT/OT for safe discharge planning. - Encouraged EtOH cessation Ordered: Initial Observation Care/Day High 70 min 40809 2. Closed head injury (S09.90XA: Unspecified injury of head, initial encounter) - Will monitor at this time. - Plan as above Ordered: Initial Observation Care/Day High 70 min 01221 3. Nasal fracture (S02.2XXA: Fracture of nasal bones, initial encounter for closed fracture) - Follow up with ENT as an outpatient. Ordered: Initial Observation Care/Day High 70 min 90413 4. Facial laceration (S01.81XA: Laceration without foreign body of other part of head, initial encounter) Sutured follow up with your PCP to have the sutures removed Ordered: Initial Observation Care/Day High 70 min 07625 5. Acute alcohol intoxication (F10.929: Alcohol use, unspecified with intoxication, unspecified) - [facility] protocol ordered - Banana bag ordered - Will hold of on the Ativan as the patient is acutely intoxicated Ordered: Initial Observation Care/Day High 70 min 24582 6. Hyponatremia (E87.1: Hypo-osmolality and hyponatremia) - IV fluids as needed. Ordered: Initial Observation Care/Day High 70 min 27680 7. Hx of ventricular tachycardia (Z86.79: Personal history of other diseases of the circulatory system) - Will monitor on telemetry. Ordered: Initial Observation Care/Day High 70 min 06223 Orders: acetaminophen, 650 mg = 2 tab(s), [...] Intermittent Pneumatic Compression Device Cardiac Monitoring Clinical Hammond Withdrawal Assessment Clinical Hammond Withdrawal Assessment Clinical Hammond Withdrawal Assessment Clinical Hammond Withdrawal Assessment Communication Order Physician to Nursing [...] Vital Signs Weight Extracted from: Title:ED Note Author:Gavin Monson M.D. te:12/13/21 1. Fall (W19.XXXA: Unspecifi ed fall, [...] Tests Pending * Basic Metabolic Panel 12/14/21 [facility]05-08-2022 Hospital Discharge instructions Patient Education 12/13/2021 [...] ?Adrenal gland problems. ?Metabolic conditions, such as Yuval disease or syndrome of inappropriate antidiuretic hormone [...] improvement. Follow these instructions at home: Take hkny-uue-csajiyb and prescription medicines only as told by [...] 07/15/2003 Document Revised: 06/08/2019 Document Reviewed: 06/08/2019 [employer] Patient Education 2020 [employer]. 12/13/2021 10:14:05 Hyponatremia Hyponatremia Hyponatremia is when [...] ?Adrenal gland problems. ?Metabolic conditions, such as Yuval disease or syndrome of inappropriate antidiuretic hormone [...] improvement. Follow these instructions at home: Take ynts-idp-qljqkun and prescription medicines only as told by [...] 07/15/2003 Document Revised: 06/08/2019 Document Reviewed: 06/08/2019 [employer] Patient Education 2020 [employer]. 12/13/2021 10:13:59 Alcohol Intoxication Alcohol Intoxication Alcohol [...] beverage between alcoholic drinks. General instructions Take zvhw-jgx-uheldcp and prescription medicines only as told by your health care provider. Do not drive after drinking any amount of alcohol. Plan for a designated warehouse driver or another way to go home. [...] 05/04/2006 Document Revised: 11/14/2018 Document Reviewed: 11/14/2018 [employer] Patient Education 2020 [employer]. Follow Up Care 12/12/2021 22:19:19 With:Follow up with primary care provider Address:Unknown When: Unknown [facility]10-16-2014 Evaluation note* Encounter Date Diagnosis Assessment Notes Treatment Notes Treatment Clinical Notes May, Dysuria (ICD-10 - R30.0) Dysuria [facility] Other Evaluation + Plan note Future Appointments Appointment Date:11/17/2021 11:00:00 AM Scheduled Provider: Location:FT.CARDIO Appointment Type:CV Holter/Event ([facility]) [facility] Future Appointments Appointment Date:01/27/2022 08:15:00 PM Scheduled Provider: Location:.SLEEP LAB_ Appointment Type:[employer] Sleep Study PSG (FT) Future Scheduled Tests Laboratory* Lipid Panel 12/15/21 [facility] Future Appointments Appointment Date:06/11/2022 03:30:00 PM Scheduled Provider: Location:.[place]ICAL [place] Appointment Type:PT 45 (FT) Appointment Date:06/17/2022 11:45:00 AM Scheduled Provider: Location:.[place] Appointment Type:PT 45 (FT) Appointment Date:06/22/2022 11:45:00 AM Scheduled Provider: Location:.[place] Appointment Type:PT 45 (FT) Appointment Date:06/24/2022 02:30:00 PM Scheduled Provider: Location:.[place] Appointment Type:PT 45 (FT) Appointment Date:06/29/2022 11:45:00 AM Scheduled Provider: Location:.[place] Appointment Type:PT 45 (FT) Appointment Date:07/02/2022 11:45:00 AM Scheduled Provider: Location:.[place] Appointment Type:PT 45 (FT) Appointment Date:07/06/2022 12:30:00 PM Scheduled Provider: Location:.[place]ICAL [place] Appointment Type:PT Re-Eval 45 (FT) Appointment Date:07/08/2022 11:15:00 AM Scheduled Provider: Location:.[place]ICAL [place] Appointment Type:PT 45 (FT) Appointment Date:07/13/2022 11:45:00 AM Scheduled Provider: Location:.[place]ICAL [place] Appointment Type:PT 45 (FT) Appointment Date:07/15/2022 [...] Future Scheduled Tests Laboratory* Lipid Panel [facility]15[facility]21 [facility] Future Appointments Appointment Date:03/30/2023 01:45:00 PM Scheduled Provider: Location:.[place]ICAL [place] Appointment Type:PT Re-Eval 45 (FT) [facility] Evaluation + Plan note Future [...] Urine Culture 03/30/23 * Urine Culture 03/30/23 [facility] Future Appointments Appointment Date:05/17/2023 11:00:00 AM Scheduled Provider: Location:.[place] Appointment Type:PT 45 (FT) Appointment Date:05/20/2023 12:00:00 PM Scheduled Provider: Location:.[place] Appointment Type:PT 45 (FT) Appointment Date:05/24/2023 11:00:00 AM Scheduled Provider: Location:.[place]ICAL [place] Appointment Type:PT 45 (FT) Appointment Date:05/26/2023 12:30:00 PM Scheduled Provider: Location:.[place] Appointment Type:PT Re-Eval 30 (FT) Diagnostic Tests Pending * Urine Culture 05/11/23 [facility] Future Appointments Appointment Date:06/22/2023 10:30:00 AM Scheduled Provider: Location:.[place] Appointment Type:PT 45 (FT) Appointment Date:06/27/2023 11:15:00 AM Scheduled Provider: [facility] Type:PT Re-Eval 45 (FT) Diagnostic Tests Pending * Urine Culture 06/21/23 [facility] Future Appointments Appointment Date:06/27/2023 11:15:00 AM Scheduled Provider: [facility] [place] [facility] Type:PT Re-Eval 45 (FT) [facility] Future Appointments Appointment Date:03/30/2024 11:30:00 AM Scheduled Provider:Gera Thomas PA-C Location:[facility]Cardiology Clinic Appointment Type:Cardiology Follow Up (FT) Future Scheduled Tests Radiology* Echo Transthoracic Complete 03/02/24 [facility] evaluation + Plan note Future Appointments Appointment Date:03/30/2024 11:30:00 AM Scheduled Provider:Gera Thomas PA-C Location:[facility]Cardiology Clinic Appointment Type:Cardiology Follow Up (FT) [facility] Evaluation + Plan note Future Appointments Appointment Date:07/11/2024 08:15:00 AM Scheduled Provider:Karlee Montes De Oca MD Location:[facility] Appointment Type:URO New Patient Diagnostic Tests Pending * Urine Culture 05/30/24 [facility] evaluation + Plan note Future Appointments Appointment Date:07/11/2024 08:15:00 AM Scheduled Provider:Karlee Montes De Oca MD Location:[facility] [place] Appointment Type:URO New Patient Diagnostic Tests Pending * Urine Culture 06/18/24 [facility] evaluation + Plan note Future Appointments Appointment Date:07/11/2024 08:15:00 AM Scheduled Provider:Karlee Montes De Oca MD Location:[facility] Appointment Type:URO New Patient [facility] evaluation + Plan note Future Appointments Appointment Date:10/18/2024 08:20:00 AM Scheduled Provider:CARON CARVAJAL PA-C Location:[facility] Appointment Type:URO Office Visit Future Scheduled Tests Radiology* XR Abdomen 1 View 07/02/24 * US Renal 07/02/24 [facility] evaluation + Plan note Future Appointments Appointment Date:10/18/2024 08:20:00 AM Scheduled Provider:CARON CARVAJAL PA-C Location:[facility] Appointment Type:URO Office Visit Diagnostic Tests Pending * Urine Culture 07/02/24 Future Scheduled Tests Radiology* XR Abdomen 1 View 07/02/24 * US Renal 07/02/24 [facility] evaluation + Plan note Future Appointments Appointment Date:10/18/2024 08:20:00 AM Scheduled Provider:CARON CARVAJAL PA-C Location:[facility] Appointment Type:URO Office Visit [facility] evaluation + Plan note Future Appointments Appointment Date:09/17/2024 08:20:00 AM Scheduled Provider:CARON CARVAJAL PA-C Location:[facility] Appointment Type:URO Office Visit [facility] evaluation noteNo assessment information available [facility] Work Phone: [email or web address] noteNo InformationNortJames E. 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 Alcohol abuse Alcohol abuse, unspecified Visual hallucinations Psychophysical visual disturbances NAWAF (obstructive sleep apnea) Obstructive sleep apnea (adult) (pediatric) documented [facility] Diagnosis Unwitnessed fall- Primary documented in this encounter [facility] note* Diagnosis Fall, initial encounter- Primary documented in this encounter [facility] note* Diagnosis Onset Date Resolution Status [...] Pulmonary hypertension acute Au evgeny 2024 2:30pm [facility] Work Phone: History general Narrative - Reported* Type Description [...] History wisdom teeth Hospitalization History see above [facility] Other History general Narrative - Reported* Type [...] History wisdom teeth Hospitalization History see above [facility] Other Hospital course Narrative No data available for this section [facility] Discharge instructions No data available for this section [facility] Discharge instructions* Attachments The following attachments cannot be sent through Care Everywhere. * Fall Prevention ([facility]) documented in this encounterBON [facility] No data available for this section [facility] (narrative) Referred by: CARON CARVAJAL PA-C [facility] Qu[facility] Reason for referral (narrative)No reason for referral information availableSelect [facility] Work Phone: Summary Purpose Family History Relationship [...] Documents on File Type Date Recorded Patient Director Of Outreach Expl anation Advance Directive(s) 01/28/2023 4:44 PM HP OA Advance Directive(s) 01/28/2023 4:45 PM Li ving Will Documents on File Type Date Recorded Patient Director Of Outreach Expl anation Advance Directive(s) 01/28/2023 4:45 PM [...] 0pm Pulmonary hypertension March 15, 2025 2:30pm Chief Complaint M15.0 Z79.899 Chief Complaint M15.0 Z79.899 Cognitive Disability Chief Complaint M15.0 Z79.89 Chief Complaint L40.51 M15.0 Z79.899 Chief Complaint Admit Date oa February 28, 2025 8:02 am Chief Complaint Admit Date oa February 28, 2025 8:02 am wellness March 15, 2025 2:3 0pm Additional Source Comments INFORMATION SOURCE (unrecogn ized section and content) DATE CREATED AUTHOR 09/08/2020 [facility] DATE CREATED AUTHOR AUTHOR'S ORGANIZ ATION 07/17/2021 [facility] dical Specialist DATE CREATED AUTHOR AUTHOR'S ORGANIZ ATION 09/08/2023 [facility] DATE CREATED AUTHOR AUTHOR'S ORGANIZ ATION 01/15/2024 [facility] DATE CREATED AUTHOR AUTHOR'S ORGANIZ ATION 02/23/2024 [facility] DATE CREATED AUTHOR AUTHOR'S ORGANIZ ATION 03/15/2024 [facility] DATE CREATED AUTHOR AUTHOR'S ORGANIZ ATION 05/06/2024 [facility] DATE CREATED AUTHOR AUTHOR'S ORGANIZ ATION 05/17/2024 [facility] DATE CREATED AUTHOR AUTHOR'S ORGANIZ ATION 06/01/2024 [facility] DATE CREATED AUTHOR AUTHOR'S ORGANIZ ATION 06/19/2024 [facility] DATE CREATED AUTHOR AUTHOR'S ORGANIZ ATION 06/21/2024 [facility] DATE CREATED AUTHOR AUTHOR'S ORGANIZ ATION 07/02/2024 [facility] DATE CREATED AUTHOR AUTHOR'S ORGANIZ ATION 07/07/2024 [facility] DATE CREATED AUTHOR AUTHOR'S ORGANIZ ATION 07/11/2024 [facility] DATE CREATED AUTHOR AUTHOR'S ORGANIZ ATION 10/10/2024 [facility] DATE CREATED AUTHOR AUTHOR'S ORGANIZ ATION 03/27/2025 [facility] Care Teams (unrecognized sec tion and content) Team Status: Inactive Member Role Status Dates Luciano Taylor MD Attending Provider Active NON STAFF Primary Care Provider Active Team Status: Active Member Role Status Dates NON STAFF Primary Care Provider Active Team Status: Inactive Member Role Status Dates NON STAFF Primary Care Provider Active Saran Verduzco , PhD Attending Provider Active Planogrammer Relationship Specialty Start Date End Date Rojas Brown [address] [place] [address] PCP - General 08/31/13 Team Status: Inactive Member Role Status Dates NON STAFF Primary Care Provider Active Luciano Taylor MD Attending Provider Active Planogrammer Relationship Specialty Start Date End Date Rojas Brown [address] [place] [address] PCP - General 08/31/13 Team Status: Inactive Member Role Status Dates NON STAFF Primary Care Provider Active PANCHO MurrellC Attending Provider Active Planogrammer Relationship Specialty Start Date End Date Rojas Brown [address] [place] [address] PCP - General 08/31/13 Team Status: Active Member Role Status Dates Edmond Pacheco DO Primary Care Provider Active Team Status: Inactive Member Role Status Dates Edmond Pacheco DO Primary Care Provider Active Carline Jackson NP-C Attending Provider Active Planogrammer Relationship Specialty Start Date End Date Rojas Brown [address] [place] [address] PCP - General 08/31/13 Planogrammer Relationship Specialty Start Date End Date Rojas Brown [address] [place] [address] PCP - General 08/31/13 Planogrammer Relationship Specialty Start Date End Date Thai Patel MD [address] [place] [phone] PCP - General Internal Medicine 09/15/23 Planogrammer Relationship Specialty Start Date End Date Thai Patel MD [address] [place] [phone] PCP - General Internal Medicine 09/15/23 Team Status: Inactive Member Role Status Dates Edmond Pacheco DO Primary Care Provider Active Start: November 23, 2023 End: November 23, 2023 RICCARDO Murrell Attending Provider Active Start: November 23, 2023 End: November 23, 2023 Planogrammer Relationship Specialty Start Date End Date Rojas Brown [address] [place] [phone] PCP - General 08/31/13 Team Status: Inactive [...] March 15, 2025 End: March 15, 2025 Planogrammer Relationship Specialty Start Date End Date Edmond Pacheco DO PCP - General Internal Medicine 12/24/22 Team Status: Active Member Role Status Dates Edmond Pacheco DO Primary Care Provider Active Start: March 24, 2025 Sunny Ocampo PA-C Attending Provider Active S tart: March 24, 2025 Team Status: Inactive Member Role Status Dates Sunny Ocampo PA-C Attending Provider Active Start: March 24, 2025 End: March 24, 2025 Planogrammer Relationship Specialty Start Date End Date Edmond Pacheco DO PCP - General Internal Medicine 12/24/22 Goals [...] or prosecute any alcohol or drug abuse patient.[facility] the event this information is protected by the Federal Confidentiality of Alcohol and Drug Abuse Patient Records regulations: The Federal rules restrict any use of the information to criminally investigate or prosecute any alcohol or drug abuse patient.[facility]In the event this information is protected by the Federal Confidentiality of Alcohol and Drug Abuse Patient Records regulations: The Federal rules restrict any use of the information to criminally investigate or prosecute any alcohol or drug abuse patient.[facility]In the event this information is protected by the Federal Confidentiality of Alcohol and Drug Abuse Patient Records regulations: The Federal rules restrict any use of the information to criminally investigate or prosecute any alcohol or drug abuse patient.[facility]In the event this information is protected by the Federal Confidentiality of Alcohol and Drug Abuse Patient Records regulations: The Federal rules restrict any use of the information to criminally investigate or prosecute any alcohol or drug abuse patient.[facility]In the event this information is protected by the Federal Confidentiality of Alcohol and Drug Abuse Patient Records regulations: The Federal rules restrict any use of the information to criminally investigate or prosecute any alcohol or drug abuse patient.[facility]In the event this information is protected by the Federal Confidentiality of Alcohol and Drug Abuse Patient Records regulations: The Federal rules restrict any use of the information to criminally investigate or prosecute any alcohol or drug abuse patient.[facility] SystemIn the event this information is protected by the Federal Confidentiality of Alcohol and Drug Abuse Patient Records regulations: The Federal rules restrict any use of the information to criminally investigate or prosecute any alcohol or drug abuse patient.[facility] Reason for Visit (unrecogniz ed section and content) Reason Comments Refill Request Reason Onset Date Comments Refill Request 08/06/2022 Reason Comments New Patient Evaluation Reason Comments Nurse School - Other Reason Comments Results Pt daughter is reque sting a copy of report Nurse School - Other Reason Comments Appointment Returned call and ga ve Fax Number to Dr. Tobi Pacheco Nurse [facility] - Other Reason Comments Fall Per SNF, [...] BE BASED ON THE PRIMARY CLINICAL RECORDS. [email or web address] [facility]. provides no warranty or guarantee of the accuracy or completeness of information in this document.
[2025-04-05 09:52] LABS: Glucose Urine UA NEGATIVE (NEGATIVE)
[2025-04-05 10:00] LABS: Cast Seen? NONE SEEN #/LPF (NONE SEEN); Crystals Seen? None Seen #/HPF (None Seen)
[2025-04-05 10:01] LABS: Urine Culture Indicated YES-FRMC
== END 2025-04-05 09:30 | disposition home or self-care (01) ==
LOC: LAB 09:29
PROVIDERS: PCP Internal Medicine; Visit Provider Internal Medicine
DX: R35.0 Frequency of micturition (principal); R32 Unspecified urinary incontinence; R41.82 Altered mental status, unspecified; R82.90 Unspecified abnormal findings in urine
CPT/HCPCS: 81001; 87086; 87088; 87186

== ENCOUNTER 2025-04-15 10:47 | Outpatient (REF) | payer MEDICARE, SELFPAY ==
--- OUTSIDE RECORDS SUMMARY | 2025-04-15 10:59 | XMS_ITS | CCD ---
Author Organization [facility] Inform ion Partnership [facility] Care Team Providers Care Shipping Support Name Role Phone EDMOND PACHECO Primary Care Unavailable JUNIOR, EDMOND Admitting Unavailable JUNIOR, EDMOND Attending Unavailable JUNIOR, EDMOND Consulting Unavailable JUNIOR, EDMOND Admitting Unavailable BALL, EDMOND Attending Unavailable JUNIOR, EDMOND Consulting Unavailable JUNIOR, EDMOND Primary Care Unavailable EDMOND PACHECO Primary Care Physician MD Luciano Taylor Attending Provider NON STAFF Primary Care Provider Unavailangel Verduzco, PhD [facility] Attending Provider [phone] Rojas Brown Primary Care Provider NON STAFF Primary Care Provider UnavailMD Luciano Meehan Attending Provider Rojas Brown B Primary Care Provider ObRICCARDO cano Attending Provider Edmond Pacheco Unavailable DO Edmond Pacheco Primary Care Provider [phone] RICCARDO Jackson Attending Provider Tana Lares Unavailable Unavailable BRAZDAPHNE ROJAS B Primary Care Unavailable CHAPARRO YARBROUGH Attending Unavailable QUIANA WATERMAN Attending Unavailable HEYDI BROWNEST B Primary Care Unavailable Thai Patel MD Primary Care Provider DO Edmond Pacheco Primary Care Provider RICCARDO Jackson Attending Provider DENNISE SOL Attending Unavailable THAI PATEL Primary Care Unavailable THAI PATEL Primary Care Unavailable ANT KIRK Attending Unavailable RENAE PATELHIF Z Primary Care Unavailable AYANA KING Attending Unavailable JORGE, THAI Z Primary Care Unavailable AYANA KING Attending Unavailable JORGE, THAI Z Primary Care Unavailable ANT KIRK Attending Unavailable THAI PATEL Primary Care Physician Rojas Brown Primary Care Provider PATELRENAE PAIZHIF Primary Care Unavailable DOUG Thomas Attending Unavailable DOUG Thomas Admitting Unavailable BALL, EDMOND Admitting Unavailable BALL, EDMOND Attending Unavailable Immanuel, [facility]- Nan Ibrahim Attending Unavaila ble PASCALE, Inderjit Attending Unavailable Cyndi, Chaparro Soler Attending Unavailable PASCALE, Inderjit Attending Unavailable BALL, EDMOND Attending Unavailable BALL, EDMOND Admitting Unavailable BALL, EDMOND Attending Unavailable BALL, EDMOND Admitting Unavailable BALL, EDMOND Attending Unavailable BALL, EDMOND Admitting Unavailable Eden, Austyn Consulting Unavailable Valente SALEEM Attending Unavailable Reuben DREW Admitting Unavailable MD Austyn Campos Consulting Unavailable Eden, Austyn Consulting Unavailable Eden, Austyn Consulting Unavailable Eden, Austyn Consulting Unavailable Eden, Austyn Consulting Unavailable Eden, Austyn Consulting Unavailable Eden, Austyn Consulting Unavailable Eden, Austyn Consulting Unavailable Alex Bhatti Attending Unavailable Eden, Austyn Consulting Unavailable Reuben DREW Admitting Unavailable MD Austyn Campos Consulting Unavailable Eden, Austyn Consulting Unavailable Eden, Austyn Consulting Unavailable Eden, Austyn Consulting Unavailable Eden, Austyn Consulting Unavailable Eden, Austyn Consulting Unavailable Eden, Austyn Consulting Unavailable Eden, Austyn Consulting Unavailable PATEL, THAI Primary Care Unavailable DOUG Thomas Attending Unavailable DOUG Thomas Admitting Unavailable NONE, XXXX Referring Unavailable Inderjit ASHRAF Attending Unavailable Inderjit ASHRAF Admitting Unavailable DOUG Thomas Admitting Unavailable DOUG Thomas Attending Unavailable DOUG Thomas Referring Unavailable PATEL, THAI Primary Care Unavailable David Calderon Consulting Unavailable David Calderon Consulting Unavailable David Calderon Consulting Unavailable DOUG Thomas Admitting Unavailable DOUG Thomas Attending Unavailable PATEL, THAI Primary Care Unavailable BALL, EDMOND Admitting Unavailable BALL, EDMOND Attending Unavailable PATEL, THAI Primary Care Unavailable BALL, EDMOND Admitting Unavailable PATEL, THAI Primary Care Unavailable BALL, EDMOND Attending Unavailable Karlee Montes De Oca Attending Unavailable PATEL, THAI Primary Care Unavailable [...] Attending Unavailable PATEL, THAI Primary Care Unavailable Karlee Montes De Oca Attending Unavailable PATEL, THAI Primary Care Unavailable DOUG CARVAJAL Admitting Unavailab raza JANETTEDOUG RAYGOZA Attending Unavailab le JANETTEDOUG RAYGOZA Referring Unavailab le PATEL, [facility] Primary Care Unavailable PATEL, THAI Primary Care Unavailable BALL, EDMOND Admitting Unavailable BALL, EDMOND Attending Unavailable DOUG CARVAJAL Admitting Unavailab le JANETTEDUOG RAYGOZA Attending Unavailab le PATEL, [facility] Primary Care Unavailable DOUG CARVAJAL Attending Unavailab le PATEL, [facility] Primary Care Unavailable DOUG CARVAJAL Attending Unavailab le PATEL, [facility] Primary Care Unavailable Junior DO, Edmond Primary Care Provider Sunny Taylor MD Attending Provider [phone] Edmond Pacheco DO Attending Provider Edmond Pacheco DO Primary Care Provider Sunny Ocampo PA-C Attending Provider Analilia Juarez MD Attending Provider Tiffanie William CMA Attending Provider Unavaila Sunny Cole Admitting Unavailable Sunny Ocampo Attending Unavailable Junior, Edmond Admitting Unavailable Ball, Edmond Attending Unavailable Sunny Taylor Admitting Unavailable Sunny Taylor Attending Unavailable Edmond Pacheco Primary Care Unavailable Allergies Allergy Classification Reported Allergen(s) Allergy Type Date of Onset Reaction(s) Facility (12 sources) Cortisone; Translations: [CORTISONE] Drug Allergy 05-15-20 13 spinal fluid suppresion and headaches [facility] Repository (20 sources) Cortisone; Translations: [cortisone] Drug Allergy 05-20-20 17 Other: See Comments, Other (See Comments) [facility] (20 sources) methylPREDNISolon e; Translations: [methylprednisolo ne] Drug Allergy 08-30-19 14 Other: See Comments, Other (See Comments) [facility] Work Phone: (20 sources) cortizone injections Propensity to adverse reactions spinal fluid suppresion and headaches [employer] Other (2 sources) patient allergy list reviewed by nurse or physicia Propensity to adverse reactions 08-22-19 Comment:Done [employer] Other (20 sources) Substance with penicillin structure and antibacterial mechanism of action (substance) Drug allergy Comment:t-Art [facility] [employer] Other (1 source) Penicillins Allergy to substance 06-21-20 Comment:[facility] (9 sources) No Known Medication Allergies; Translations: [No Known Medication Allergies] Propensity to adverse reactions (disorder) [facility] Repository (7 sources) Penicillin; Translations: [penicillin] Drug Allergy Unknown (qualifier value) [facility] (4 sources) Honey bee venom Allergy to substance 01-17-20 [facility] (4 sources) Penicillin V Drug Allergy 01-17-20 [facility] Healthcare Medications Current Medications Medication Drug Class(es) Dates Sig (Normalized) Sig (Original) ##### (12 sources) Start: 03-02-2024 ##### 30 tab(s), 0 Refill(s) Start Date: 03/02/24 Status: Ordered acetaminophen 500 mg oral capsule (10 sources) Start: 03-29-2025 take 1 capsule by mouth every six hours as needed Start: 03-22-2024 End: 03-15-2025 take 1 tablet by mouth every six hours as needed Acetaminophen (Tylenol Extra Strength) 500 mg tablet Discontinued 500 MG PO Every 6 hours as needed March 22, 2024 12:00am March 15, 2025 2:51pm take 2 tablets by mo [facility] every four hours as needed for pain Acetaminophen 325 MG 2 tablets Orally every 4 hrs as needed for pain/fever Active amLODIPine 2.5 mg oral tablet (13 sources) [...] Platelet Aggregation Inhibitor, Nonsteroidal Anti-inflammatory Drug Start: 03-29-2025 take 1 tablet by mouth once daily Start: 07-13-2023 take 1 tablet by colton once daily aspirin 81 mg Oral EC [...] (10 sources) Azole Antifungal, Corticosteroid Lotrisone Active cefuroxime 500 mg oral tablet (5 sources) Cephalosporin Antibacterial Start: take 1 tablet by mouth twice daily Start: 03-26-2024 End: 05-06-2024 take 1 tablet by mouth twice daily Cefuroxime Axetil 500 mg tablet Discontinued 500 MG PO Twice daily March 26, 2024 12:00am May 06, 2024 5:45pm Centrum Silver (1 source) Start: 03-10-2023 take 1 tablet by mouth once daily Centrum Silver 1 tab(s), Oral, Daily, Refill(s) 0 Start Date: 03/10/23 Status: Ordered cephalexin 500 mg oral capsule (7 sources) Cephalosporin Antibacterial Start: 01-29-2021 take 1 capsule by mouth three times daily Keflex 500 mg Cap 500 mg = 1 cap(s), Oral, TID, # 30 cap(s), Refills(s) 0 Start Date: 01/29/21 Status: Ordered Cetirizine (20 sources) Histamine-1 Receptor Antagonist Start: 07-02-2024 cetirizine 10 mg, Daily Start Date: 07/02/24 Status: Ordered Start: 05-03-2024 End: 03-29-2025 take 1 tablet by mouth once daily as needed Cetirizine 10 mg tablet Discontinued 0 .ROUTE .COMPLEX May 03, 2024 2:22pm March 29, 2025 7:59am TAKE ONE TABLET BY MOUTH DAILY NEEDED FOR RASH Start: 03-22-2024 End: 05-03-2024 take 1 capsule by mouth once daily as needed Cetirizine (Zyrtec) 10 mg capsule Discontinued 10 MG PO Daily as needed for rash March 26, 2024 4:32pm May 03, 2024 2:23pm Start: 03-14-2023 take 1 capsule by mo [facility] at bedtime cetirizine 10 mg oral capsule 10 mg = 1 cap(s), Oral, Bedtime, # 40 cap(s), Refills(s) 0, Pharmacy: [facility]/pharmacy #[id number], 152, cm, 03/10/23 11:33:00 EDT, Height/Length Dosing, 78, kg, 03/10/23 11:33:00 EDT, Weight Dosing Start Date: 03/14/23 Status: Ordered take 1 tablet by colton every twenty-four hours Cetirizine HCl 10 MG 1 tablet Orally Once a day Active Chondroitin Sulfates / Glucosamine (6 sources) Start: 07-12-2024 take 1 capsule by mouth three times daily Glucosamine Chondroitin 1 cap, Oral, TID Start Date: 07/12/24 Status: Ordered Start: 03-22-2024 End: 03-29-2025 Glucosamine Ruby 2kcl-Chondroi t 750-600 mg tablet Discontinued TAB PO March 22, 2024 12:00am March 29, 2025 7:59am Cranberry preparation (2 sources) Non-Standardized Food Allergenic [...] Active docusate sodium 100 mg oral capsule (8 sources) Start: 03-15-2025 take 1 capsule by [...] Start: 03-10-2023 take 1 tablet by colton once daily at bedtime Aricept 5 mg [...] mg by mouth d aily at bedtime. [id number] 0.3 ml EPINEPHrine 1 mg/ml auto-injector (8 sources) alpha-Adrenergic Agonist, beta-Adrenergic Agonist, Catecholamine Start: 9 EPINEPHrine (EPIPEN) 0.3 mg/0.3 mL auto-injector 03/07/2019 Active escitalopram 20 mg oral tablet (20 sources) Serotonin Reuptake Inhibitor Start: take 1 tablet by mouth once daily Start: 05-10-2022 End: 12-02-2024 take 1 tablet by mouth once daily Escitalopram Oxalate (Lexapro) 20 mg tablet Discontinued 20 MG PO Daily March 26, 2024 4:33pm July 11, 2024 10:39pm escitalopram (Le xapro) 10 MG tablet Lexapro Active Comment on above: Take 20 mg by mouth daily at bedtime. famotidine 20 mg oral tablet (3 sources) Histamine-2 Receptor Antagonist Start: 03-15-2025 take [...] above: Inject intravenously . Every 8 weeks latanoprost 0.05 mg/ml ophthalmic solution (20 sources) Prostaglandin Analog Start: take 1 drop(s) into the eye(s) once daily latanoprost (XALATAN) 0.005 % ophthalmic solution INSTILL 1 DROP INTO EACH EYE ONCE DAILY 2.5 mL 11 03/27/2025 Active Start: 03-12-2024 End: 03-27-2025 take 1 drop(s) into the eye(s) once daily Latanoprost 0.005 % drops Discontinued 1 DROPS EYE-BOTH Daily March 22, 2024 12:00am March 26, 2024 4:45pm Start: 08-16-2022 End: 03-09-2024 take 1 drop(s) [...] Drop in both e yes once daily. magnesium hydroxide 240 mg/ml oral suspension (5 [...] bedtime), # 30 tab(s), Refills(s) 0, Pharmacy: [facility]/pharmacy #[id number], 152, cm, 03/10/23 11:33:00 EDT, Height/Length Dosing, 78, kg, 03/10/23 11:33:00 EDT, Weight Dosing Start Date: 03/14/23 Status: Ordered take 1 capsule by mo [facility] every twenty-four hours Melatonin 1 MG 1 capsule at bedtime as needed Orally Once a day Active Multi For Her - (5 sources) Multi [...] on above: TA[facility] 1 CAPSULE [facility] Oral for 30 Days pilocarpine [...] Start: 04-25-2024 take 1 tablet by colton once daily Start: 03-22-2024 End: 04-25-2024 take [...] 1 Start Date: 03/02/24 Status: Ordered sennosides, fdc 8.6 mg oral capsule (3 sources) Start: 03-15-2025 take 1 capsule by mouth once daily traZODone hydrochloride 50 mg oral tablet (8 sources) Serotonin Reuptake Inhibitor Start: 10-15-2024 take [...] Drug Class(es) Dates Sig (Normalized) Sig (Original) acyclovir 0.05 mg/mg topical ointment (20 sources) Herpesvirus Nucleoside Analog DNA Polymerase Inhibitor, Herpes Simplex Virus Nucleoside Analog DNA Polymerase Inhibitor, Herpes Zoster Virus Nucleoside Analog DNA Polymerase Inhibitor Acyclovir 5 % 1 application every 3 hours Externally Six times a day Not-Taking/PRN Cranberry Conc-Ascorbic Acid (4 sources) Non-Standardized Food Allergenic Extract, Non-Standardized Plant Allergenic Extract, Vitamin C Start: 07-16-2024 End: 03-15-2025 take 2 capsules by mouth twice daily [...] BID, # 90 tab(s), Refills(s) 0, Pharmacy: [facility]/pharmacy #[id number], 152.4, cm, 05/09/22 21:11:00 EDT, Height/Length Dosing, 83, kg, 05/09/22 21:11:00 EDT, Weight Dosing Start Date: 05/12/22 Status: Ordered Start: 05-12-2022 take 5 mg by mouth t hree times daily busPIRone 10 mg Tab 5 mg = 0.5 tab(s), Oral, TID, # 90 tab(s), Refills(s) 0, Pharmacy: [facility]/pharmacy #[id number], 152.4, cm, 05/09/22 21:11:00 EDT, Height/Length Dosing, 83, kg, 05/09/22 21:11:00 EDT, Weight Dosing Start Date: 05/12/22 Status: Ordered BuSpar Active cefdinir 300 mg oral capsule (8 sources) Cephalosporin Antibacterial Start: 05-06-2024 End: 07-16-2024 take 1 capsule by mouth twice daily Cefdinir 300 mg capsule Discontinued 300 MG PO Twice daily 20 May 17, 2024 3:23pm July 16, 2024 4:05pm celecoxib 200 mg oral capsule (20 sources) Nonsteroidal Anti-inflammatory Drug Start: 03-02-2024 End: 03-29-2025 take 1 capsule by mouth twice daily [...] May, Not-Taking/PRN citalopram 40 mg oral tablet (4 sources) Serotonin Reuptake Inhibitor Start: 12-03-19 End: 03-06-20 take 1 tablet by mouth once daily Citalopram 40 mg tablet Discontinued 40 MG PO Daily December 02, 2024 12:00am March 06, 2025 10:16pm [place] silk preparation (6 sources) Start: 07-16-20 End: 03-15-20 cornsilk Discontinued PO July 16, 2024 1:00am March 15, 2025 2:51pm Start: 07-16-2024 Start: 07-12-2024 take 1 tablet by mouth once da kathy cornsilk 1,200 mg cornsilk 1,200 mg, 1 tab, Oral, Daily Start Date: 07/12/24 Status: Ordered D-Mannose (4 sources) Start: 07-16-2024 End: 03-15-2025 take 4 capsules by mouth once daily, then take 1 capsule by mouth once D-Mannose (Azo D-Mannose) 500 mg capsule Discontinued 2000 MG PO Daily July 16, 2024 1:00am March 15, 2025 2:52pm Start: 07-16-2024 take 4 capsules by m outh once daily, then take 1 capsule by mouth once ertapenem 1000 mg injection (4 sources) Penem Antibacterial Start: 06-04-2024 End: 07-16-2024 inject 1 g by intramuscular injection once daily Ertapenem 1 gram recon soln Discontinued 1 GM IM Daily 05 17June 04, 2024 12:00am July 16, 2024 3:53pm estradiol 0.1 mg/ml vaginal cream (9 sources) Estrogen Start: 07-16-2024 End: 03-29-2025 Estradiol 0.01 % (0.1 mg/gram) cream Discontinued VAGINAL July 16, 2024 1:00am March 29, 2025 7:59am Start: 07-02-2024 Estrace 0.1 mg /g Cream See Instructions, 42.5 gm, Refill(s) 6, apply a pea-sized amount vaginally and around the urethra nightly x 3 weeks, then 3x per week thereafter, [facility], 153, cm, 07/02/24 14:02:00 EST, Height/Length Dosing, 95.6, kg, 07/02/24 14:02:00 EST, Weight Dosing Start Date: 07/02/24 Status: Ordered estrogens, conjugated (fdc) 0.625 mg/ml vaginal cream (20 sources) Estrogen Premarin 0.625 M G/GM as directed Vaginal Not-Taking/PRN Premarin 0.625 M [...] 2024 7:17pm gabapentin 100 mg oral capsule (4 sources) Anti-epileptic Agent Start: 2023 End: 2023 take 1 capsule by mouth twice daily Gabapentin 100 mg capsule Discontinued 100 MG PO Twice daily April 20, 2024 12:00am July 16, 2024 4:06pm 2 ml gentamicin 40 mg/ml injection (4 sources) Start: 2023 End: 2024 inject 80 mg by intramuscular injection three times daily Gentamicin 40 mg/mL solution Discontinued 80 MG IM Three times daily July 16, 2024 1:00am March 15, 2025 2:52pm Hydrocortisone (12 sources) Corticosteroid Start: 2023 hydrocortisone Top 1% Crm Refill(s) 0, 28 gm, 0 Refill(s) Start Date: 03/02/24 Status: Ordered ketoconazole 20 mg/ml medicated shampoo (4 sources) Azole Antifungal Start: 2024 End: 2024 Ketoconazole 2 % shampoo Discontinued 1 APPLIC TOPICAL Twice a Week October 15, 2024 12:00am March 15, 2025 2:53pm lactobacillus acidophilus [id number] unt oral capsule (3 sources) Start: 2024 End: 2024 Lactobacillus Acidophilus 25 million cell capsule Discontinued 2 CELL PO March 15, 2025 12:00am March 29, 2025 7:59am latanoprost Opth 0.005% Batool (4 sources) Start: 2014 latanoprost Opth 0.005% Batool 1 drop(s), OPTH, Daily, Refill(s) 0, Other (see comment) Start Date: 09/02/14 Status: Ordered levoFLOXacin 250 mg oral tablet (19 sources) Quinolone Antimicrobial Start: 2022 take 1 tablet by mouth every twenty-four hours levoFLOXacin 250 MG 1 tablet Orally Once a day Mar, Not-Taking/PRN loratadine 10 mg oral tablet (3 sources) Start: 2024 End: 2024 take 1 tablet by mouth once daily Loratadine 10 mg tablet Discontinued 10 MG PO Daily March 15, 2025 12:00am March 29, 2025 7:59am Magnesium (2 sources) take 1 tablet by [...] Start: 02-04-2021 take 1 tablet by colton once daily magnesium oxide 250 mg oral tablet 250 mg = 1 tab(s), Oral, Daily, Prophylaxis Start Date: 02/04/21 Status: Ordered Comment on above: Take 400 mg by mouth . meloxicam 15 mg oral tablet (5 sources) Nonsteroidal Anti-inflammatory Drug Start: End: 3 take 1 tablet by mouth once daily meloxicam (MOBIC) 15 mg tablet Take 15 mg by mouth once daily. 0 08/03/2022 01/19/2023 Discontinued (Discontinued by another Health Care Provider) Meloxicam 15 MG tablet dispersible Meloxicam Active Comment on above: Take 15 mg by mouth once daily. methenamine hippurate 1000 mg oral tablet (5 sources) Start: 03-15-2025 End: 03-29-2025 Methenamine Hippurate 1 gram tablet Discontinued 1 GM PO Daily at bedtime March 15, 2025 12:00am March 29, 2025 7:59am Start: 07-12-2024 End: 07-07-2025 take 1 tablet by mouth twice daily methenamine hippurate 1 g oral tablet 1 gm = 1 tab(s), Oral, BID, X 30 day(s), # 60 tab(s), Refills(s) 11, Pharmacy: [facility], 153, cm, 07/12/24 8:20:00 EST, Height/Length Dosing, 95.6, kg, 07/12/24 8:20:00 EST, Weight Dosing Start Date: 07/12/24 Stop Date: 07/07/25 Status: Ordered methotrexate 2.5 mg oral tablet (20 sources) Folate Analog Metabolic Inhibitor Start: 08-31-2013 take 6 tablets by mouth every week methotrexate 2.5 mg tablet Take 6 tablets by mouth once each week. as directed. 0 08/31/2013 Active methotrexate 2.5 MG tablet Oral Active Methotrexate Not -Taking/PRN Comment on above: Take 6 tablets by mo [facility] once each week. as directed. 24 hr [...] / nitrofurantoin, monohydrate 75 mg oral capsule (4 sources) Nitrofuran Antibacterial Start: End: take 1 capsule by mouth twice daily at mealtime Nitrofurantoin Monohyd/M-Cryst (Macrobid) 100 mg capsule Discontinued 100 MG PO Twice daily 05 12April 17, 2024 12:00am July 16, 2024 4:06pm must administer with a meal/food QUEtiapine 25 mg oral tablet (20 sources) Atypical Antipsychotic Start: 024 End: take 1 tablet by mouth twice [...] Bedtime, # 30 tab(s), Refills(s) 0, Pharmacy: [facility]/pharmacy #[id number], 152.4, cm, 05/09/22 21:11:00 EDT, Height/Length Dosing, 83, kg, 05/09/22 21:11:00 EDT, Weight Dosing Start Date: 05/12/22 Status: Ordered take 0.5 tablet by m outh once daily QUEtiapine (SEROQUEL) 25 MG tablet [...] mg / trimethoprim 160 mg oral tablet (15 sources) Dihydrofolate Reductase Inhibitor Antibacterial, Sulfonamide Antimicrobial [...] except food] Onset: 12-16-2014 Episodic Anxiety disorders (13 sources) Acute stress disorder; Translations: [Acute stress [...] Onset: 03-02-2024 Episodic Congestive heart failure; nonhypertensive (8 sources) Acute on chronic heart failure co-occurrent [...] without esophagitis] Onset: 07-10-2023 Chronic Essential hypertension (20 sources) Essential hypertension; Translations: [Essential (primary) hypertension] [...] current use of drug therapy; Translations: [Other fine hairer (current) drug therapy] Onset: 03-16-2023 Episodic Other [...] Episodic Other diseases of veins and lymphatics (12 sources) Venous insufficiency of leg; Translations: [Venous [...] venom] Onset: 03-07-2019 Episodic Pulmonary heart disease (12 sources) Pulmonary hypertension; Translations: [Pulmonary hypertension, unspecified] [...] edema] Onset: 03-02-2024 Episodic Residual codes; unclassified (4 sources) Insomnia; Translations: [Insomnia, unspecified] 09-26-2024 Episodic [...] (suspected) exposure to COVID-19] Urinary tract infections (19 sources) Acute cystitis; Translations: [Acute cystitis] Onset: [...] (9 sources) Epithelial basement membrane dystrophy; 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 pH (U) 6.0 [pH] 5.0-9.0 [facility] Specific gravity (U) [Rel density] 1.025 1.005-1.025 [facility] Urobilinogen Qn (U) 0.2 {[place]'U}/dL 0.2-1.0 [facility] Laboratory - Specimen inform ationOrdered By: Edmond Pacheco on 04-05-2025 Appearance (U) CLOUDY Abnormal CLEAR [facility] Color (U) LT. YELLOW YELLOW [facility] Laboratory - UrinalysisOrder ed By: Edmond Pacheco on 04-05-2025 Leukocyte esterase Test strip Ql (U) LARGE Abnormal NEGATIVE [facility] Mucus Ql (Urine sed) NONE SEEN NONE SEEN [facility] Nitrite Ql (U) Positive Abnormal NEGATIVE [facility] Protein Ql (U) 30 mg/dL Abnormal NEG/TRACE [facility] No Panel InformationOrdered By: Edmond Pacheco on 04-05-2025 Urine Bacteria SMALL #/HPF Abnormal NONE SEEN [facility] Urine Culture Reflexed YES-[facility] Urine Microscopic Review YES [facility] Urine Occult Blood MODERATE Abnormal NEGATIVE [facility] Urine Other Casts NONE SEEN #/LPF NONE SEEN [facility] Urine Other Crystals None Seen #/HPF None Seen [facility] Urine RBC 5-10 #/HPF Abnormal 0-2 [facility] Urine Squamous Epithelial Cells FEW #/LPF Abnormal NONE/RARE [facility] Urine WBC >100 #/HPF Abnormal NONE SEEN [facility] Urine Cultureon 04-05-2025 Bacteria identified Cx Nom (U) ORGANISM: Escherichia coli (ESBL) (O:ESCCOLESBL) [place] Count >100,000 Organism Comments Multidrug Resistant Organism Aerobic YASMINE Charge (NMIC56) --- SUSCEPTIBILITY -- ORGANISM: O:ESCCOLESBL ANTIBIOTIC INTERPRETATION YASMINE Amikacin S <16 Amoxacillin/K Clavulanate S <8 Ampicillin R >16 Ampicillin/Sulbactam I 1616/8 Aztreonam R 8 Cefazolin R >16 Cefepime R >16 Ceftazidime R 4 Ceftazidime/Avibactam S <4 Ceftolozane/Tazobactam S <2 Ceftriaxone R >32 Cefuroxime R >16 Ciprofloxacin R >2 Ertapenem S <0.5 Gentamicin S <2 Levofloxacin R >4 Meropenem S <1 Meropenem/Vaborbactam S <2 Nitrofurantoin R >64 Piperacillin/Tazobacta m S <8 Tetracycline R >8 Tigecycline S <2 Tobramycin S <2 Trimethoprim/Sulfameth oxazole R >2 S = SUSCEPTIBLE I = INTERMEDIATE R [...] RESISTANT TO ALL B-LACTAM DRUGS. PERFORMED BY: [place] [address] PATHOLOGIST HAIR OR BEAUTY SALON ASSISTANT FARA WODO M.D. Normal [facility] Comment on above: Performed By: #### C UU #### [facility] [address] Erythrocyte distribution wid th Auto (RBC) [Ratio]Ordered By: Analilia Juarez on 03-27-2025 Erythrocyte distribution width (RBC) [Ratio] 12.7 % 11.0-15.0 [facility] Glomerular filtration rate ( GFR) estimation in non- AmericanOrdered By: Analilia Juarez on 03-27-2025 GFR/1.73 sq M.predicted among non-blacks MDRD (S/P/Bld) [Vol rate/Area] mL/min/{1.73_m2} >=60 mL/min/1.[address] [facility] Hematocrit Auto (Bld) [Volum e fraction]Ordered By: Analilia Juarez on 03-27-2025 Hematocrit (Bld) [Volume fraction] 35.6 % Low 36.0-48.0 [facility] Hemoglobin [Mass/volume] in BloodOrdered By: Analilia Juarez on 03-27-2025 Hemoglobin (Bld) [Mass/Vol] 11.9 g/dL Low 12.0-16.0 [facility] Laboratory - Chemistry and C hemistry - challengeOrdered By: Analilia Juarez on 03-27-2025 Calcium [Mass/Vol] 8.3 mg/dL Low 8.5-10.1 [facility] Chloride [Moles/Vol] 105 mmol/L 98-107 [facility] CO2 [Moles/Vol] 31.8 mmol/L 21.0-32.0 [facility] Creatinine [Mass/Vol] 0.65 mg/dL 0.55-1.02 [facility] GFR/1.73 sq M.predicted MDRD (S/P/Bld) [Vol rate/Area] mL/min/{1.73_m2} >=60 mL/min/1.[address] [facility] Glucose [Mass/Vol] 104 mg/dL 74-106 [facility] Potassium [Moles/Vol] 3.5 mmol/L 3.5-5.1 [facility] Sodium [Moles/Vol] 141 mmol/L 136-145 [facility] Urea nitrogen [Mass/Vol] 10.0 mg/dL 7.0-18.0 [facility] Urea nitrogen/Creatinine [Mass ratio] 15.4 mg/mg [facility] Leukocytes [#/volume] correc kala for nucleated erythrocytes in Blood by Automated counOrdered By: Analilia Juarez on 03-27-2025 WBC corrected for nucl RBC Auto (Bld) [#/Vol] 6.6 10 3/uL 4.0-11.0 [facility] MCH Auto (RBC) [Entitic mass ]Ordered By: Analilia Juarez on 03-27-2025 MCH (RBC) [Entitic mass] 32.2 pg 26.7-34.0 [facility] MCHC Auto (RBC) [Mass/Vol]Or dered By: Analilia Juarez on 03-27-2025 MCHC (RBC) [Mass/Vol] 33.4 g/dL 29.9-35.2 [facility] MCV Auto (RBC) [Entitic vol] Ordered By: Analilia Juarez on 03-27-2025 MCV (RBC) [Entitic vol] 96.5 fL 81.0-99.0 [facility] Platelet mean volume Auto (B ld) [Entitic vol]Ordered By: Analilia Juarez on 03-27-2025 Platelet mean volume (Bld) [Entitic vol] 9.5 fL 9.5-13.5 [facility] Platelets Auto (Bld) [#/Vol] Ordered By: Analilia Juarez on 03-27-2025 Platelets (Bld) [#/Vol] 150 10 3/uL 150-450 [facility] RBC Auto (Bld) [#/Vol]Ordere d By: Analilia Juarez on 03-27-2025 RBC (Bld) [#/Vol] 3.69 10 6/uL Low 4.20-5.40 [facility] Serum or plasma anion gap de terminationOrdered By: Analilia Juarez on 03-27-2025 Anion gap [Moles/Vol] 7.7 mmol/L [facility] Basophils Auto (Bld) [#/Vol] Ordered By: Analilia Juarez on 03-25-2025 Basophils (Bld) [#/Vol] 0.0 10 3/uL 0.0-0.1 [facility] Basophils/100 WBC Auto (Bld) Ordered By: Analilia Juarez on 03-25-2025 Basophils/100 WBC (Bld) 0.4 % 0.2-2.0 [facility] ECG 12-LEADon 03-25-2025 [place] [address] Electrocardiograph Report Signed Patient: CARIDAD GLOVER I MR#: [id number] : 1940 Acct:[id number] Age/Sex: 84 / F ADM Date: 03/24/25 Loc: MS 217-[address]: Analilia Juarez M.D. Ordering Physician: Sunny Ocampo Date of Service: 03/24/25 Procedure(s): ECG 12 lead Accession Number(s): [id number] cc: [facility] Test Date: 2025-03-24 Pat Name: CARIDAD GLOVER Department: Room: - Gender: Female Car Sweeper: : 1940 Requested By: [id number] Order Number: [id number] Reading MD: ARIA FISH M.D. Measurements Intervals [place] Rate: 78 P: -46843 WI: -77526 QRS: 96 QRSD: 132 T: -76 QT: 408 QTc: 442 Interpretive Statements SINUS RHYTHM with frequent ventricular premature complexes 8102 Low QRS voltage in chest leads 9150 abnormal ECG Compared to ECG 03/24/2025 15:47:27 Ventricular premature complexes are still present Electronically Signed On 03-25-2025 17:45:13 EDT by ARIA FISH M.D. Dictated By: ARIA FISH Signed By: 03/25/25174403/25/25 174 DD/ 160 TD/TT: Viscose Cellar Worker: [facility] Radiology, Radiologist, MD - 03/25/2025 [place] [address] Electrocardiograph Report Signed Patient: CARIDAD GLOVER I MR#: [id number] : 1940 Acct:[id number] Age/Sex: 84 / F ADM Date: 03/24/25 Loc: MS 217-[address]: Analilia Juarez M.D. Ordering Physician: Sunny Ocampo Date of Service: 03/24/25 Procedure(s): ECG 12 lead Accession Number(s): [id number] cc: [facility] Test Date: 2025-03-24 Pat Name: CARIDAD GLOVER Department: Room: - Gender: Female Car Sweeper: : 1940 Requested By: [id number] Order Number: [id number] Reading MD: ARIA FISH M.D. Measurements Intervals [place] Rate: 78 P: -58354 WI: -05648 QRS: 96 QRSD: 132 T: -76 QT: 408 QTc: 442 Interpretive Statements SINUS RHYTHM with frequent ventricular premature complexes 8102 Low QRS voltage in chest leads 9150 abnormal ECG Compared to ECG 03/24/2025 15:47:27 Ventricular premature complexes are still present Electronically Signed On 03-25-2025 17:45:13 EDT by ARIA FISH M.D. Dictated By: ARIA FISH Signed By: 03/25/25 [id number]/25/[id number] DD/ 1603 TD/TT: Viscose Cellar Worker: [place] [address] Electrocardiograph Report Signed Patient: CARIDAD GLOVER I MR#: [id number] : 1940 Acct:[id number] Age/Sex: 84 / F ADM Date: 03/24/25 Loc: MS 217-[address]: Analilia Juarez M.D. Ordering Physician: Sunny Ocampo Date of Service: 03/24/25 Procedure(s): ECG 12 lead Accession Number(s): [id number] cc: [facility] Test Date: 2025-03-24 Pat Name: CARIDAD GLOVER Department: Room: - Gender: Female Car Sweeper: : 1940 Requested By: [id number] Order Number: [id number] Reading MD: ARIA FISH M.D. Measurements Intervals [place] Rate: 78 P: 49 WI: 180 QRS: 42 QRSD: 80 T: 70 [...] FISH Signed By: 03/25/25174203/25/251742 DD/ 1547 TD/TT: Viscose Cellar Worker: [facility] Radiology, Radiologist, - 03/25/2025 [place] [address] Electrocardiograph Report Signed Patient: CARIDAD GLOVER I MR#: [id number] : 1940 Acct:[id number] Age/Sex: 84 / F ADM Date: 03/24/25 Loc: MS 217-[address]: Analilia Juarez M.D. Ordering Physician: Sunny Ocampo Date of Service: 03/24/25 Procedure(s): ECG 12 lead Accession Number(s): [id number] cc: [facility] Test Date: 2025-03-24 Pat Name: CARIDAD GLOVER Department: Room: - Gender: Female Car Sweeper: : 1940 Requested By: [id number] Order Number: [id number] Reading MD: ARIA FISH M.D. Measurements Intervals [place] Rate: 78 P: 49 WI: 180 QRS: 42 QRSD: 80 T: 70 QT: 386 QTc: 420 Interpretive Statements 1100 Sinus rhythm 1574 with frequent ventricular premature complexes 8102 Low QRS voltage in chest leads abnormal ECG Compared to ECG 03/25/2024 09:31:09 Ventricular premature complex(es) now present Low QRS voltage now present Electronically Signed On 03-25-2025 17:43:20 EDT by ARIA FISH M.D. Dictated By: ARIA FISH Signed By: 03/25/25 1743 03/25/25 1743 DD/ 1547 TD/TT: Viscose Cellar Worker: [employer] ECG 12-LEADOrdered By: [employer] Radiology on 03-25-2025 [facility] Work Phone: [facility] Work Phone: Eosinophils/100 WBC Auto (Bl d)Ordered By: Analilia Juarez on 03-25-2025 Eosinophils/100 WBC (Bld) 2.2 % 0.9-7.0 [facility] Erythrocyte distribution wid th Auto (RBC) [Ratio]Ordered By: Analilia Juarez on 03-25-2025 Erythrocyte distribution width (RBC) [Ratio] 13.0 % 11.0-15.0 [facility] Glomerular filtration rate ( GFR) estimation in non- AmericanOrdered By: Analilia Juarez on 03-25-2025 GFR/1.73 sq M.predicted among non-blacks MDRD (S/P/Bld) [Vol rate/Area] mL/min/{1.73_m2} >=60 mL/min/1.[address] [facility] Hematocrit Auto (Bld) [Volum e fraction]Ordered By: Analilia Juarez on 03-25-2025 Hematocrit (Bld) [Volume fraction] 31.7 % Low 36.0-48.0 [facility] Hemoglobin [Mass/volume] in BloodOrdered By: Analilia Juarez on 03-25-2025 Hemoglobin (Bld) [Mass/Vol] 10.8 g/dL Low 12.0-16.0 [facility] Laboratory - Chemistry and C hemistry - challengeOrdered By: Analilia Juarez on 03-25-2025 Calcium [Mass/Vol] 8.1 mg/dL Low 8.5-10.1 [facility] Chloride [Moles/Vol] 106 mmol/L 98-107 [facility] CO2 [Moles/Vol] 30.9 mmol/L 21.0-32.0 [facility] Creatinine [Mass/Vol] 0.62 mg/dL 0.55-1.02 [facility] GFR/1.73 sq M.predicted MDRD (S/P/Bld) [Vol rate/Area] mL/min/{1.73_m2} >=60 mL/min/1.[address] [facility] Glucose [Mass/Vol] 110 mg/dL High 74-106 [facility] Magnesium [Mass/Vol] 1.8 mg/dL 1.8-2.4 [facility] Potassium [Moles/Vol] 3.7 mmol/L 3.5-5.1 [facility] Sodium [Moles/Vol] 142 mmol/L 136-145 [facility] Urea nitrogen [Mass/Vol] 11.0 mg/dL 7.0-18.0 [facility] Urea nitrogen/Creatinine [Mass ratio] 17.7 mg/mg [facility] Laboratory - Hematology and Cell countsOrdered By: Analilia Juarez on 03-25-2025 Immature granulocytes/100 WBC (Bld) 0.2 % 0.0-0.5 [facility] Leukocytes [#/volume] correc kala for nucleated erythrocytes in Blood by Automated counOrdered By: Analilia Juarez on 03-25-2025 WBC corrected for nucl RBC Auto (Bld) [#/Vol] 9.2 10 3/uL 4.0-11.0 [facility] Lymphocytes Auto (Bld) [#/Vo l]Ordered By: Analilia Juarez on 03-25-2025 Lymphocytes (Bld) [#/Vol] 2.1 10 3/uL 1.2-3.8 [facility] Lymphocytes/100 WBC Auto (Bl d)Ordered By: Analilia Juarez on 03-25-2025 Lymphocytes/100 WBC (Bld) 22.6 % 20.5-60.0 [facility] MCH Auto (RBC) [Entitic mass ]Ordered By: Analilia Juarez on 03-25-2025 MCH (RBC) [Entitic mass] 33.0 pg 26.7-34.0 [facility] MCHC Auto (RBC) [Mass/Vol]Or dered By: Analilia Juarez on 03-25-2025 MCHC (RBC) [Mass/Vol] 34.1 g/dL 29.9-35.2 [facility] MCV Auto (RBC) [Entitic vol] Ordered By: Analilia Juarez on 03-25-2025 MCV (RBC) [Entitic vol] 96.9 fL 81.0-99.0 [facility] Monocytes Auto (Bld) [#/Vol] Ordered By: Analilia Juarez on 03-25-2025 Monocytes (Bld) [#/Vol] 0.8 10 3/uL 0.3-0.8 [facility] Monocytes/100 WBC Auto (Bld) Ordered By: Analilia Juarez on 03-25-2025 Monocytes/100 WBC (Bld) 8.3 % 1.7-12.0 [facility] Neutrophils Auto (Bld) [#/Vo l]Ordered By: Analilia Juarez on 03-25-2025 Neutrophils (Bld) [#/Vol] 6.1 10 3/uL 1.4-6.5 [facility] Neutrophils/100 WBC Auto (Bl d)Ordered By: Analilia Juarez on 03-25-2025 Neutrophils/100 WBC (Bld) 66.3 % 43.0-75.0 [facility] No Panel InformationOrdered By: Analilia Juarez on 03-25-2025 Eosinophils # (Auto) 0.2 10 3/uL 0.0-0.7 [facility] Immature Granulocyte # (Auto) 0.02 10 3/uL 0.00-0.03 [facility] Phosphorus Level 2.8 mg/dL 2.6-4.7 [facility] Platelet mean volume Auto (B ld) [Entitic vol]Ordered By: Analilia Juarez on 03-25-2025 Platelet mean volume (Bld) [Entitic vol] 9.5 fL 9.5-13.5 [facility] Platelets Auto (Bld) [#/Vol] Ordered By: Analilia Juarez on 03-25-2025 Platelets (Bld) [#/Vol] 138 10 3/uL Low 150-450 [facility] RBC Auto (Bld) [#/Vol]Ordere d By: Analilia Juarez on 03-25-2025 RBC (Bld) [#/Vol] 3.27 10 6/uL Low 4.20-5.40 [facility] Serum or plasma anion gap de terminationOrdered By: Analilia Juarez on 03-25-2025 Anion gap [Moles/Vol] 8.8 mmol/L [facility] Basophils Auto (Bld) [#/Vol] Ordered By: Sunny Ocampo on 03-24-2025 Basophils (Bld) [#/Vol] 0.0 10 3/uL 0.0-0.1 [facility] Basophils/100 WBC Auto (Bld) Ordered By: Sunny Ocampo on 03-24-2025 Basophils/100 WBC (Bld) 0.3 % 0.2-2.0 [facility] ECG 12-LEADon 03-24-2025 Radiology Study observation (narrative) [facility] Radiology Study observation (narrative) [facility] Eosinophils/100 WBC Auto (Bl d)Ordered By: Sunny Ocampo on 03-24-2025 Eosinophils/100 WBC (Bld) 0.4 % Low 0.9-7.0 [facility] Erythrocyte distribution wid th Auto (RBC) [Ratio]Ordered By: Sunny Ocampo on 03-24-2025 Erythrocyte distribution width (RBC) [Ratio] 13.0 % 11.0-15.0 [facility] Globulin Calc (S) [Mass/Vol] Ordered By: Sunny Ocampo on 03-24-2025 Globulin (S) [Mass/Vol] 4.7 g/dL [facility] Glomerular filtration rate ( GFR) estimation in non- AmericanOrdered By: Sunny Ocampo on 03-24-2025 GFR/1.73 sq M.predicted among non-blacks MDRD (S/P/Bld) [Vol rate/Area] mL/min/{1.73_m2} >=60 mL/min/1.[address] [facility] Hematocrit Auto (Bld) [Volum e fraction]Ordered By: Sunny Ocampo on 03-24-2025 Hematocrit (Bld) [Volume fraction] 41.7 % 36.0-48.0 [facility] Hemoglobin [Mass/volume] in BloodOrdered By: Sunny Ocampo on 03-24-2025 Hemoglobin (Bld) [Mass/Vol] 14.0 g/dL 12.0-16.0 [facility] Laboratory - Chemistry and C hemistry - challengeOrdered By: Sunny Ocampo on 03-24-2025 Bilirubin Ql (U) Negative NEGATIVE [facility] Glucose (U) [Mass/Vol] Negative NEGATIVE [facility] Ketones Ql (U) Negative NEGATIVE [facility] pH (U) 6.0 [pH] 5.0-9.0 [facility] Specific gravity (U) [Rel density] 1.015 1.005-1.025 [facility] Urobilinogen Qn (U) 0.2 {[place]'U}/dL 0.2-1.0 [facility] Albumin [Mass/Vol] 3.2 g/dL Low 3.4-5.0 [facility] ALP [Catalytic activity/Vol] 105 U/L 46-116 [facility] ALT [Catalytic activity/Vol] 16 U/L 14-59 [facility] AST [Catalytic activity/Vol] 18 U/L 15-37 [facility] Bilirubin [Mass/Vol] 0.8 mg/dL 0.2-1.0 [facility] Calcium [Mass/Vol] 8.3 mg/dL Low 8.5-10.1 [facility] Chloride [Moles/Vol] 105 mmol/L 98-107 [facility] CO2 [Moles/Vol] 28.1 mmol/L 21.0-32.0 [facility] Creatinine [Mass/Vol] 0.87 mg/dL 0.55-1.02 [facility] GFR/1.73 sq M.predicted MDRD (S/P/Bld) [Vol rate/Area] mL/min/{1.73_m2} >=60 mL/min/1.[address] [facility] Glucose [Mass/Vol] 168 mg/dL High 74-106 [facility] Lactate [Moles/Vol] 2.5 mmol/L Critically high 0.4-2.0 [facility] Comment on above: RESULTS CALLED TO DENISE WARREN Natriuretic peptide B (Bld) [Mass/Vol] 1291.0 pg/mL <=1800.0 [facility] Potassium [Moles/Vol] 3.4 mmol/L Low 3.5-5.1 [facility] Protein [Mass/Vol] 7.9 g/dL 6.4-8.2 [facility] Sodium [Moles/Vol] 139 mmol/L 136-145 [facility] TSH Qn 0.921 m[IU]/L 0.358-3.740 [facility] Urea nitrogen [Mass/Vol] 11.0 mg/dL 7.0-18.0 [facility] Urea nitrogen/Creatinine [Mass ratio] 12.6 mg/mg [facility] Laboratory - Hematology and Cell countsOrdered By: Sunny Ocampo on 03-24-2025 Immature granulocytes/100 WBC (Bld) 0.3 % 0.0-0.5 [facility] Laboratory - Specimen inform ationOrdered By: Sunny Ocampo on 03-24-2025 Appearance (U) CLOUDY Abnormal CLEAR [facility] Color (U) LT YELLOW YELLOW [facility] Laboratory - UrinalysisOrder ed By: Sunny Ocampo on 03-24-2025 Leukocyte esterase Test strip Ql (U) LARGE Abnormal NEGATIVE [facility] Mucus Ql (Urine sed) TRACE Abnormal NONE SEEN [facility] Nitrite Ql (U) Negative NEGATIVE [facility] Protein Ql (U) Negative NEG/TRACE [facility] Leukocytes [#/volume] correc kala for nucleated erythrocytes in Blood by Automated counOrdered By: Sunny Ocampo on 03-24-2025 WBC corrected for nucl RBC Auto (Bld) [#/Vol] 12.4 10 3/uL High 4.0-11.0 [facility] Lymphocytes Auto (Bld) [#/Vo l]Ordered By: Sunny Ocampo on 03-24-2025 Lymphocytes (Bld) [#/Vol] 1.6 10 3/uL 1.2-3.8 [facility] Lymphocytes/100 WBC Auto (Bl d)Ordered By: Sunny Ocampo on 03-24-2025 Lymphocytes/100 WBC (Bld) 13.0 % Low 20.5-60.0 [facility] MCH Auto (RBC) [Entitic mass ]Ordered By: Sunny Ocampo on 03-24-2025 MCH (RBC) [Entitic mass] 32.8 pg 26.7-34.0 [facility] MCHC Auto (RBC) [Mass/Vol]Or dered By: Sunny Ocampo on 03-24-2025 MCHC (RBC) [Mass/Vol] 33.6 g/dL 29.9-35.2 [facility] MCV Auto (RBC) [Entitic vol] Ordered By: Sunny Ocampo on 03-24-2025 MCV (RBC) [Entitic vol] 97.7 fL 81.0-99.0 [facility] Monocytes Auto (Bld) [#/Vol] Ordered By: Sunny Ocampo on 03-24-2025 Monocytes (Bld) [#/Vol] 0.6 10 3/uL 0.3-0.8 [facility] Monocytes/100 WBC Auto (Bld) Ordered By: Sunny Ocampo on 03-24-2025 Monocytes/100 WBC (Bld) 4.5 % 1.7-12.0 [facility] Neutrophils Auto (Bld) [#/Vo l]Ordered By: Sunny Ocampo on 03-24-2025 Neutrophils (Bld) [#/Vol] 10.1 10 3/uL High 1.4-6.5 [facility] Neutrophils/100 WBC Auto (Bl d)Ordered By: Sunny Ocampo on 03-24-2025 Neutrophils/100 WBC (Bld) 81.5 % High 43.0-75.0 [facility] No Panel InformationOrdered By: Sunny Ocampo on 03-24-2025 Urine Bacteria MODERATE #/HPF Abnormal NONE SEEN [facility] Urine Culture Reflexed YES-[facility] Urine Occult Blood SMALL Abnormal NEGATIVE [facility] Urine Other Casts NONE SEEN #/LPF NONE SEEN [facility] Urine Other Crystals None Seen #/HPF None Seen [facility] Urine RBC 10-20 #/HPF Abnormal 0-2 [facility] Urine Squamous Epithelial Cells MODERATE #/LPF Abnormal NONE/RARE [facility] Urine WBC >100 #/HPF Abnormal NONE SEEN [facility] Eosinophils # (Auto) 0.1 10 3/uL 0.0-0.7 [facility] Immature Granulocyte # (Auto) 0.04 10 3/uL High 0.00-0.03 [facility] Troponin I High Sensitivity 13.2 pg/mL 4.0-51.3 [facility] Comment on above: CUT-OFF POINTS HAVE BEEN [...] volume (Bld) [Entitic vol] 10.1 fL 9.5-13.5 [facility] Platelets Auto (Bld) [#/Vol] Ordered By: Sunny Ocampo on 08-17-2025 Platelets (Bld) [#/Vol] 169 10 3/uL 150-450 [facility] RBC Auto (Bld) [#/Vol]Ordere d By: Sunny Ocampo on 03-24-2025 RBC (Bld) [#/Vol] 4.27 10 6/uL 4.20-5.40 [facility] Serum or plasma albumin/glob ulin mass ratioOrdered By: Sunny Ocampo on 03-24-2025 Albumin/Globulin [Mass ratio] 0.7 {ratio} [facility] Serum or plasma anion gap de terminationOrdered By: Sunny Ocampo on 03-24-2025 Anion gap [Moles/Vol] 9.3 mmol/L [facility] Urine Cultureon 03-24-2025 Bacteria identified Cx Nom (U) ORGANISM: Escherichia coli (O:ESCCOL) Baltic Count >100,000 Aerobic YASMINE Charge (NMIC56) --- [...] RESISTANT TO ALL B-LACTAM DRUGS. PERFORMED BY: [place] [address] PATHOLOGIST HAIR OR BEAUTY SALON ASSISTANT FARA WOOD M.D. Normal [facility] Comment on above: Performed By: #### C UU #### [address] Urine cultureOrdered By: Jay Ocampo on 03-24-2025 Bacteria identified Cx Nom (U) Escherichia coli Abnormal [facility] Alanine aminotransferase [En zymatic activity/volume] in Serum or PlasmaOrdered By: Sunny Taylor on 02-28-2025 ALT [Catalytic activity/Vol] 9 U/L Normal 7-52 [facility] Comment on above: Performed By: #### C MP, CBC #### [address] Albumin [Mass/volume] in Ser um or Plasma by Bromocresol green (BCG) dye binding methoOrdered By: Sunny Taylor on 02-28-2025 Albumin BCG dye [Mass/Vol] 3.5 g/dL 3.5-5.7 [facility] Alkaline phosphatase [Enzyma tic activity/volume] in Serum or PlasmaOrdered By: Sunny Taylor on 02-28-2025 ALP [Catalytic activity/Vol] 85 U/L Normal 34-104 [facility] Comment on above: Result Comment: PERF ORMED BY: [place] [address] PATHOLOGIST HAIR OR BEAUTY SALON ASSISTANT FARA WOOD M.D. Performed By: #### C MP, CBC #### [facility] [address] [place], [place] [id number] [facility] Aspartate aminotransferase [ Enzymatic activity/volume] in Serum or PlasmaOrdered By: Sunny Taylor on 02-28-2025 AST [Catalytic activity/Vol] 15 U/L Normal 13-39 [facility] Comment on above: Performed By: #### C MP, CBC #### [address] Basophils [#/volume] in Bloo d by Automated countOrdered By: Sunnyvikram Taylor on 02-28-2025 Basophils (Bld) [#/Vol] 0.1 10*3/uL Normal 0.0-0.2 [facility] Comment on above: Result Comment: PERF ORMED BY: [place] [address] PATHOLOGIST HAIR OR BEAUTY SALON ASSISTANT FARA WOOD M.D. Performed By: #### C MP, CBC #### [facility] [address] [place] [address] [place] Basophils/100 leukocytes in Blood by Automated countOrdered By: Sunny Taylor on 02-28-2025 Basophils/100 WBC (Bld) 0.9 % Normal . [facility] Comment on above: Performed By: #### C MP, CBC #### [place] [address] [place] Bilirubin.total [Mass/volume ] in Serum or PlasmaOrdered By: Sunny Taylor on 02-28-2025 Bilirubin [Mass/Vol] 0.6 mg/dL Normal 0.3-1.0 [facility] Comment on above: Performed By: #### C MP, CBC #### [place] [address] [place] Calcium [Mass/volume] in Ser um or PlasmaOrdered By: Sunny Taylor on 02-28-2025 Calcium [Mass/Vol] 8.7 mg/dL Normal 8.6-10.3 [facility] Comment on above: Performed By: #### C MP, CBC #### [place] [address] [place] Carbon dioxide, total [Moles /volume] in Serum or PlasmaOrdered By: Sunny Taylor on 02-28-2025 CO2 [Moles/Vol] 34.7 mmol/L High 21.0-31.0 [facility] Comment on above: Performed By: #### C MP, CBC #### [place] [address] [place] Chloride [Moles/volume] in S marianna or PlasmaOrdered By: Sunny Taylor on 02-28-2025 Chloride [Moles/Vol] 101 mmol/L Normal 98-107 [facility] Comment on above: Performed By: #### C MP, CBC #### [address] Complete Blood Count Auto Di ffon 02-28-2025 Mean Corpuscular HGB Conc 33.4 g/dL Normal 32.0-35.0 [facility] Comment on above: Performed By: #### C MP, CBC #### [address] NRBC% 0.1 /100{WBC} Normal 0-0.5 [facility] Comment on above: Performed By: #### C MP, CBC #### [address] White Blood Count 5.8 [CFU]/mL Normal 3.8-11.6 [facility] Comment on above: Performed By: #### C MP, CBC #### [address] Comprehensive Metabolic Pane [place] 02-28-2025 Albumin [Mass/Vol] 3.5 g/dL Normal 3.5-5.7 [facility] [facility] Comment on above: Performed By: #### C MP, CBC #### [address] GFR/1.73 sq M.predicted MDRD (S/P/Bld) [Vol rate/Area] mL/min/{1.73_m2} Normal [facility] Comment on above: Performed By: #### C MP, CBC #### [address] Creatinine [Mass/volume] in Serum or PlasmaOrdered By: Sunny Taylor on 02-28-2025 Creatinine [Mass/Vol] 0.73 mg/dL Normal 0.60-1.20 [facility] Comment on above: Performed By: #### C MP, CBC #### [address] Eosinophils [#/volume] in Bl ood by Automated countOrdered By: Sunny Clevelandrow on 02-28-2025 Eosinophils (Bld) [#/Vol] 0.4 10*3/uL Normal 0.0-0.45 [facility] Comment on above: Performed By: #### C MP, CBC #### [facility] [address] [place] [address] [place] Eosinophils/100 leukocytes i n Blood by Automated countOrdered By: Sunny Clevelandrow on 02-28-2025 Eosinophils/100 WBC (Bld) 6.6 % Normal . [facility] Comment on above: Performed By: #### C MP, CBC #### [address] Erythrocyte distribution wid th [Ratio] by Automated countOrdered By: Sunny Taylor on 02-28-2025 Erythrocyte distribution width (RBC) [Ratio] 13.4 % Normal 11.9-15.3 [facility] Comment on above: Performed By: #### C MP, CBC #### [address] Erythrocytes [#/volume] in B lood by Automated countOrdered By: Sunyn Clevelandrow on 02-28-2025 RBC (Bld) [#/Vol] 3.98 10*6/uL Normal 3.60-5.00 [facility] Comment on above: Performed By: #### C MP, CBC #### [address] Glucose [Mass/volume] in Ser um or PlasmaOrdered By: Sunny Taylor on 02-28-2025 Glucose [Mass/Vol] 98 mg/dL Normal 70-100 [facility] Comment on above: ADA recommended refe rence rangeRandom Glucose Reference Range is dependent on time and content of last meal. Glucose of more than 200 mg/dL in a nonstressed, ambulatory subject supports the diagnosis of Diabetes Mellitus. Result Comment: [place] Glucose Reference Range is dependent on time and content of last meal. Glucose of more than 200 mg/dL in a nonstressed, ambulatory subject supports the diagnosis of Diabetes Mellitus. ADA recommended reference range Performed By: #### C MP, CBC #### [address] Hematocrit [Volume Fraction] of Blood by Automated countOrdered By: Sunnyvikram Taylor on 02-28-2025 Hematocrit (Bld) [Volume fraction] 38.6 % Normal 34.0-46.4 [facility] Comment on above: Performed By: #### C MP, CBC #### [address] Hemoglobin [Mass/volume] in BloodOrdered By: Sunnyvikram Taylor on 02-28-2025 Hemoglobin (Bld) [Mass/Vol] 12.9 g/dL Normal 11.8-15.4 [facility] Comment on above: Performed By: #### C MP, CBC #### [address] Leukocytes [#/volume] correc kala for nucleated erythrocytes in Blood by Automated counOrdered By: Sunnyvikram Taylor on 02-28-2025 WBC corrected for nucl RBC Auto (Bld) [#/Vol] 5.8 10*3/uL 3.8-11.6 [facility] Leukocytes [#/volume] in Blo od by Automated countOrdered By: Sunny Taylor on 02-28-2025 WBC (Bld) [#/Vol] 5.8 10*3/uL Normal 3.8-11.6 [facility] Comment on above: Performed By: #### C MP, CBC #### [address] Lymphocytes [#/volume] in Bl ood by Automated countOrdered By: Sunny Taylor on 02-28-2025 Lymphocytes (Bld) [#/Vol] 2.1 10*3/uL Normal 1.00-4.8 [facility] Comment on above: Performed By: #### C MP, CBC #### [address] Lymphocytes/100 leukocytes i n Blood by Automated countOrdered By: Sunny Taylor on 02-28-2025 Lymphocytes/100 WBC (Bld) 36.6 % Normal . [facility] Comment on above: Performed By: #### C MP, CBC #### [address] MCH [Entitic mass] by Automa kala countOrdered By: Sunny Taylor on 02-28-2025 MCH (RBC) [Entitic mass] 32.5 pg Normal 24.7-34.3 [facility] Comment on above: Performed By: #### C MP, CBC #### [address] MCHC Auto (RBC) [Mass/Vol]Or dered By: Sunny Taylor on 02-28-2025 MCHC (RBC) [Mass/Vol] 33.4 g/dL 32.0-35.0 [facility] MCV [Entitic volume] by Auto mated countOrdered By: Sunny Taylor on 02-28-2025 MCV (RBC) [Entitic vol] 97.1 fL Normal 80-100 [facility] Comment on above: Performed By: #### C MP, CBC #### [place] [address] [place] Monocytes [#/volume] in Bloo d by Automated countOrdered By: Sunny Taylor on 02-28-2025 Monocytes (Bld) [#/Vol] 0.4 10*3/uL Normal 0.0-0.8 [facility] Comment on above: Performed By: #### C MP, CBC #### [place] [address] [place] Monocytes/100 leukocytes in Blood by Automated countOrdered By: Sunny Taylor on 02-28-2025 Monocytes/100 WBC (Bld) 7.3 % Normal . [facility] Comment on above: Performed By: #### C MP, CBC #### [place] [address] [place] Neutrophils [#/volume] in Bl ood by Automated countOrdered By: Sunny Taylor on 02-28-2025 Neutrophils (Bld) [#/Vol] 2.8 10*3/uL Normal 1.8-7.7 [facility] Comment on above: Performed By: #### C MP, CBC #### [address] Neutrophils/100 leukocytes i n Blood by Automated countOrdered By: Sunny Clevelandrow on 02-28-2025 Neutrophils/100 WBC (Bld) 48.6 % Normal . [facility] Comment on above: Performed By: #### C MP, CBC #### [address] No Panel InformationOrdered By: Sunny Taylor on 02-28-2025 Estimated GFR (CKD-EPI) > 60.0 mL/Min [facility] Creatinine Clearance (Chem N/A [facility] Nucleated erythrocytes [Pres ence] in Blood by Automated countOrdered By: Sunny Taylor on 02-28-2025 Nucleated RBC Auto Ql (Bld) 0.1 /100{WBC} 0-0.5 [facility] Platelet mean volume [Entiti c volume] in Blood by Automated countOrdered By: Sunny Taylor on 02-28-2025 Platelet mean volume (Bld) [Entitic vol] 8.3 fL Normal 6.3-10.7 [facility] Comment on above: Performed By: #### C MP, CBC #### [address] Platelets [#/volume] in Bloo d by Automated countOrdered By: Sunny Taylor on 02-28-2025 Platelets (Bld) [#/Vol] 182 10*3/uL Normal 150-450 [facility] Comment on above: Performed By: #### C MP, CBC #### [address] Potassium [Moles/volume] in Serum or PlasmaOrdered By: Sunny Taylor on 02-28-2025 Potassium [Moles/Vol] 4.0 mmol/L Normal 3.5-5.1 [facility] Comment on above: Performed By: #### C MP, CBC #### [place] [address] [place] Protein [Mass/volume] in Ser um or PlasmaOrdered By: Sunny Taylor on 02-28-2025 Protein [Mass/Vol] 7.0 g/dL Normal 6.4-8.9 [facility] Comment on above: Performed By: #### C MP, CBC #### [address] Serum globulin measurement b y calculation (mass/volume)Ordered By: Sunny Taylor on 02-28-2025 Globulin (S) [Mass/Vol] 3.5 g/dL Normal [facility] Comment on above: Performed By: #### C MP, CBC #### [address] Serum or plasma albumin/glob ulin mass ratioOrdered By: Sunny Taylor on 02-28-2025 Albumin/Globulin [Mass ratio] 1.0 {ratio} Normal [facility] Comment on above: Performed By: #### C MP, CBC #### [address] Serum or plasma anion gap de terminationOrdered By: Sunny Taylor on 02-28-2025 Anion gap [Moles/Vol] 9.3 mmol/L Normal 6.0-15.0 [facility] Comment on above: Performed By: #### C MP, CBC #### [address] Sodium [Moles/volume] in Ser um or PlasmaOrdered By: Sunny Taylor on 02-28-2025 Sodium [Moles/Vol] 141 mmol/L Normal 136-145 [facility] Comment on above: Performed By: #### C MP, CBC #### [address] Urea nitrogen [Mass/volume] in Serum or PlasmaOrdered By: Sunny Taylor on 02-28-2025 Urea nitrogen [Mass/Vol] 13 mg/dL Normal 7-25 [facility] Comment on above: Performed By: #### C MP, CBC #### [address] [place] [address] [facility] Urineon 07-05-2024 Bacteria identified Cx Nom (U) [...] Locations R1: This test was performed at: [facility], [address] [place] [address], [address]- , [place], Normal [facility] Comment on above: Performed By: #### 2 [id number] #### [facility] [address] [place] [address] [place] Renalon 07-05-2024 [place] Renal Exam Date/Time: [...] MD Transcribed by: SID Technologist: HUMBERTO Schultz [facility] XR Abdomen 1 Viewon 07-05-20 24 [...] mGy = na DAP = na Normal [facility] Ambulatory Visit Summaryon 1 09-01-2023 Ambulatory Visit Summary Ambulatory Visit Summary CARIDAD GLOVER I :1940 Visit Date:07/02/2024 Ambulatory Visit Instructions Your Diagnosis Recurrent UTI Your Care Team Attending Physician - CARON CARVAJAL PA-C Primary Care Physician - THAI PATEL This Is Your Medications List [facility] Prescription (#####) amlodipine (Norvasc 2.5 [...] CAMACHO, CARON Kwan Where: [facility] [address] [place] [address]- Medications What How Much When Instructions Unchanged [...] 1 Tablets By Mouth Every day Unchanged [facility] Prescription (#####) 0 30 tab(s), 0 Refill(s) [...] for choosing us for your care. Normal [facility] URINALYSISOrdered By: SYSTEM SYSTEM on 06-29-2024 Bacteria Auto Ql (U) 3+ /HPF Invalid Interpretation Code Trace/HPF [facility] UA Auto SS Clarity (U) Ex.Turbid *ABN* (06/29/24 8:00 AM) Invalid Interpretation Code Clear [facility] UA Auto SS Color (U) Dark-[place] 1 *ABN* (06/29/24 8:00 AM) Invalid Interpretation Code Yellow [facility] UA Auto SS Comment on above: Interpretive Data: M icroscopic readings are only performed on those samples that meet specific criteria set forth by [facility]. Epithelial cells.squamous Auto (Urine sed) [#/Area] 3-4 graded/HPF Invalid Interpretation Code [facility]A Auto SS Hemoglobin Auto test [...] Interpretation Code 1.005 - 1.030 [facility] Auto SS WBC Auto (Urine sed) [#/Area] >75 graded/HPF Invalid Interpretation Code 0-5graded/H PF [facility] Auto SS URINALYSISOrdered By: Lalitha seharer on 06-29-2024 UA Spec Desc Clean Catch (06/29/24 8:00 AM) Normal [facility] Auto SS Urinalysis with Microon 06-09 Bacteria Auto Ql (U) 3+ /HPF Abnormal Trace Fish [facility] Comment on above: Performed By: #### 4 [id number] #### [facility] [address] [place] [address] Clarity (U) Ex.Turbid Abnormal Clear [facility] Comment on above: Performed By: #### 4 [id number] #### [facility] [address] [place] [address] Color (U) Dark-[place] Abnormal Yellow [facility] Comment on above: Result Comment: Micr oscopic readings are only performed on those samples that meet specific criteria set forth by [facility]. Performed By: #### 4 [id number] #### [facility] [address] [place] [address] Epithelial cells.squamous Auto (Urine sed) [#/Area] 3-4 Invalid Interpretation Code [facility] Comment on above: Performed By: #### 4 [id number] #### [facility] [address] [place] [address] Hemoglobin Auto test strip (U) [Mass/Vol] 2+ mg/dL Abnormal Negative [facility] Comment on above: Performed By: #### 4 [id number] #### [facility] [address] [place] [address] Leukocyte clumps Auto (Urine sed) [#/Area] >30 Abnormal [facility] Comment on above: Performed By: #### 4 [id number] #### [facility] [address] [place] [address] Leukocyte esterase Auto test strip Ql (U) 500 [place]/uL Abnormal Negative [facility] Comment on above: Performed By: #### 4 [id number] #### [facility] [address] [place] [address] Nitrite Auto test strip Ql (U) 2+ mg/dL Abnormal Negative [facility] Comment on above: Performed By: #### 4 [id number] #### [facility] [address] [id number] pH (U) 6.0 [pH] Invalid Interpretation Code 5.0-9.0 [facility] Comment on above: Performed By: #### 4 [id number] #### [facility] [address] [place], [place] [id number] Protein Ql (U) 3+ mg/dL Abnormal Negative [facility] Comment on above: Performed By: #### 4 [id number] #### [facility] [address] [place] [address] Specific gravity (U) [Rel density] 1.020 Invalid Interpretation Code 1.005-1.030 [facility] Comment on above: Performed By: #### 4 [id number] #### [facility] [address] [place], [place] [id number] WBC Auto (Urine sed) [#/Area] >75 Abnormal 0-5 [facility] Comment on above: Performed By: #### 4 [id number] #### [facility] [address] [place] [address] Type of Urine collection method Clean Catch Normal [facility] Comment on above: Performed By: #### 4 [id number] #### [facility] [address] [place] [address] Urinalysis with MicroOrdered By: SYSTEM SYSTEM on 06-29-2024 Bilirubin Ql (U) Negative Normal Negative [facility] Auto SS Comment on above: Performed By: #### 4 [id number] #### [facility] [address] [place] [address] Glucose Ql (U) Negative Normal Negative [facility] Au to SS Comment on above: Performed By: #### 4 [id number] #### [facility] [address] [place] [address] Ketones Auto test strip Ql (U) Negative Normal Negative [facility] Auto SS Comment on above: Performed By: #### 4 [id number] #### [facility] [address] [place] [address] Mucus Auto Ql (U) Negative Normal Negative [facility] Auto SS Comment on above: Performed By: #### 4 [id number] #### [facility] [address] [place] [address] Urobilinogen (U) [Mass/Vol] Negative Normal Negative [facility] Auto SS Comment on above: Performed By: #### 4 [id number] #### [facility] [address] [place] [address] C Urineon 06-20-2024 Bacteria identified Cx Nom [...] Locations R1: This test was performed at: [facility], [address] [place] [address], [address]- , , Normal [facility] Comment on above: Performed By: #### 2 [id number] #### [facility] [address] [place] [address] UA with Cult Rflxon 06-18-20 24 Bacteria Auto Ql (U) Trace Normal Trace Fish er [facility] Comment on above: Performed By: #### 4 [id number] #### [facility] [address] [place] [address] Bilirubin Ql (U) Negative Normal Negative [facility] Comment on above: Performed By: #### 4 [id number] #### [facility] [address] [place] [address] Clarity (U) Clear Normal Clear [facility] Comment on above: Performed By: #### 4 [id number] #### [facility] [address] [place] [address] Color (U) Yellow Normal Yellow [facility] Comment on above: Result Comment: Micr oscopic readings are only performed on those samples that meet specific criteria set forth by [facility]. Performed By: #### 4 [id number] #### [facility] [address] [place] [address] Epithelial cells.squamous Auto (Urine sed) [#/Area] 0-2 Invalid Interpretation Code [facility] Comment on above: Performed By: #### 4 [id number] #### [facility] [address] [place] [address] Glucose Ql (U) Negative Normal Negative [facility] Comment on above: Performed By: #### 4 [id number] #### [facility] [address] [place] [address] Hemoglobin Auto test strip (U) [Mass/Vol] Negative Normal Negative [facility] Comment on above: Performed By: #### 4 [id number] #### [facility] [address] [place] [address] Ketones Auto test strip Ql (U) Negative Normal Negative [facility] Comment on above: Performed By: #### 4 [id number] #### [facility] [address] [place] [address] Leukocyte esterase Auto test strip Ql (U) 25 [place]/uL Normal Negative [facility] Comment on above: Performed By: #### 4 [id number] #### [facility] [address] [place] [address] Mucus Auto Ql (U) Trace Normal Negative [facility] Comment on above: Performed By: #### 4 [id number] #### [facility] [address] [place] [address] Nitrite Auto test strip Ql (U) Negative Normal Negative [facility] Comment on above: Performed By: #### 4 [id number] #### [facility] [address] [place] [address] pH (U) 5.5 [pH] Invalid Interpretation Code 5.0-9.0 [facility] Comment on above: Performed By: #### 4 [id number] #### [facility] [address] [place] [address] Protein Ql (U) Negative Normal Negative [facility] Comment on above: Performed By: #### 4 [id number] #### [facility] [address] [place] [address] RBC Ql (U) 0-3 Normal 0-3 [facility] Comment on above: Performed By: #### 4 [id number] #### [facility] [address] [place] [address] Specific gravity (U) [Rel density] 1.019 Invalid Interpretation Code 1.005-1.030 [facility] Comment on above: Performed By: #### 4 [id number] #### [facility] [address] [place] [address] Urobilinogen (U) [Mass/Vol] Negative Normal Negative [facility] Comment on above: Performed By: #### 4 [id number] #### [facility] [address] [place] [address] WBC Auto (Urine sed) [#/Area] 6-15 Abnormal 0-5 [facility] Comment on above: Performed By: #### 4 [id number] #### [facility] [address] [place] [address] Type of Urine collection method Clean Catch Normal [facility] Comment on above: Performed By: #### 4 [id number] #### [facility] [address] [place] [address] URINALYSISOrdered By: SYSTEM SYSTEM on 06-18-2024 Bacteria [...] that meet specific criteria set forth by [facility]. Epithelial cells.squamous Auto (Urine sed) [...] Normal [facility] UA Auto SS C Urineon 06-01-2024 Bacteria [...] Locations R1: This test was performed at: [facility], [address] [place] [address], [address]- , [place], Normal [facility] Comment on above: Performed By: #### 2 [id number] #### [facility] [address] [place] [address] UA with Cult Rflxon 05-30-20 Bacteria Auto Ql (U) 4+ /HPF Abnormal Trace Fish [facility] Comment on above: Performed By: #### 4 [id number] #### [facility] [address] [place] [address] Clarity (U) Ex.Turbid Abnormal Clear [facility] Comment on above: Performed By: #### 4 [id number] #### [facility] [address] [place] [address] Color (U) Light-[place] Abnormal Yellow [facility] Comment on above: Result Comment: Micr oscopic readings are only performed on those samples that meet specific criteria set forth by [facility]. Performed By: #### 4 [id number] #### [facility] [address] [place] [address] Epithelial cells.squamous Auto (Urine sed) [#/Area] 0-2 Invalid Interpretation Code [facility] Comment on above: Performed By: #### 4 [id number] #### [facility] [address] [place] [address] Hemoglobin Auto test strip (U) [Mass/Vol] 1+ mg/dL Abnormal Negative [facility] Comment on above: Performed By: #### 4 [id number] #### [facility] [address] [place] [address] Leukocyte clumps Auto (Urine sed) [#/Area] 21-30 Abnormal [facility] Comment on above: Performed By: #### 4 [id number] #### [facility] [address] [place] [address] Leukocyte esterase Auto test strip Ql (U) 500 [place]/uL Abnormal Negative [facility] Comment on above: Performed By: #### 4 [id number] #### [facility] [address] [place] [address] Nitrite Auto test strip Ql (U) 2+ mg/dL Abnormal Negative [facility] Comment on above: Performed By: #### 4 [id number] #### [facility] [address] [place] [address] pH (U) 7.0 [pH] Invalid Interpretation Code 5.0-9.0 [facility] Comment on above: Performed By: #### 4 [id number] #### [facility] [address] [place] [address] Protein Ql (U) 1+ mg/dL Abnormal Negative [facility] Comment on above: Performed By: #### 4 [id number] #### [facility] [address] [place] [address] RBC Ql (U) 31-75 Abnormal 0-3 [facility] Comment on above: Performed By: #### 4 [id number] #### [facility] [address] [place] [address] Specific gravity (U) [Rel density] 1.017 Invalid Interpretation Code 1.005-1.030 [facility] Comment on above: Performed By: #### 4 [id number] #### [facility] [address] [place] [address] WBC Auto (Urine sed) [#/Area] >75 Abnormal 0-5 [facility] Comment on above: Performed By: #### 4 [id number] #### [facility] [address] [place] [address] Type of Urine collection method Clean Catch Normal [facility] Comment on above: Performed By: #### 4 [id number] #### [facility] [address] [place] [address] UA with Cult RflxOrdered By: SYSTEM SYSTEM on 05-30-2024 Bilirubin Ql (U) Negative Normal Negative [facility] UA Auto SS Comment on above: Performed By: #### 4 [id number] #### [facility] [address] [place] [address] Glucose Ql (U) Negative Normal Negative [facility] UA Au to SS Comment on above: Performed By: #### 4 [id number] #### [facility] [address] [place] [address] Ketones Auto test strip Ql (U) Negative Normal Negative [facility] UA Auto SS Comment on above: Performed By: #### 4 [id number] #### [facility] [address] [place] [address] Mucus Auto Ql (U) Negative Normal Negative [facility] UA Auto SS Comment on above: Performed By: #### 4 [id number] #### [facility] [address] [place] [address] Urobilinogen (U) [Mass/Vol] Negative Normal Negative [facility] UA Auto SS Comment on above: Performed By: #### 4 [id number] #### [facility] [address] [place] [address] URINALYSISOrdered By: SYSTEM SYSTEM on 05-30-2024 Bacteria Auto Ql (U) 4+ /HPF Invalid Interpretation Code Trace/HPF [facility] UA Auto SS Clarity (U) Ex.Turbid *ABN* (05/30/24 10:00 AM) Invalid Interpretation Code Clear [facility] UA Auto SS Color (U) Light-[place] 1 *ABN* (05/30/24 10:00 AM) Invalid Interpretation Code Yellow [facility] UA Auto SS Comment on above: Interpretive Data: M icroscopic readings are only performed on those samples that meet specific criteria set forth by [facility]. Epithelial cells.squamous Auto (Urine sed) [...] Catch (05/30/24 10:00 AM) Normal [facility] Auto SS C Urineon 05-17-2024 Bacteria [...] Locations R1: This test was performed at: [facility], [address] [place] [address], [facility] , , [facility] Comment on above: Performed By: #### 2 [id number] #### [facility] [address] [place] [address] C Urineon 05-06-2024 Bacteria identified Cx Nom [...] Locations R1: This test was performed at: [facility], [address] [place] [address], [id number]- , [place], Normal [facility] Comment on above: Performed By: #### 2 [id number] #### [facility] [address] [place] [address] BNPon 03-02-2024 Int Ctr BNP Pass Normal [facility] Comment on above: Performed By: #### 1 [id number] #### [facility] [address] [place] [address] Natriuretic peptide B (Bld) [Mass/Vol] 120 pg/mL High 5-80 [facility] Comment on above: Performed By: #### 1 [id number] #### [facility] [address] [place] [address] CHEMISTRYOrdered By: SYSTEM SYSTEM on 03-02-2024 Albumin [...] High 5 - 80 pg/mL [facility] [place] [facility] HEMATOLOGYOrdered By: SYSTEM SYSTEM on 03-02-2024 [...] E9/L [facility]/ in Noteon 03-02-2024 Heart and Vascular Office/Clinic [...] time being (more content not included)... Normal [facility] Comment on above: Result Comment: Elec tronically Signed By: Gera Thomas PA-C\.br\Date and Time Signed: 03/02/24 12:46 EDT\.br\Electronically Co-Signed By: Kiara Coronel.br\Date and Time Co-Signed: 03/02/24 12:15 EDT Basic Metabolic Panelon 02-05 Anion gap [Moles/Vol] 10 mmol/L Normal 9-15 [facility] [place] Comment on above: Performed By: #### U YASMINE #### [facility] [address] [place] [address] Calcium [Mass/Vol] 8.3 mg/dL Low 8.5-9.9 [facility] Comment on above: Performed By: #### U YASMINE #### [facility] [address] [place] [address] Chloride [Moles/Vol] 102 mmol/L Normal 95-107 [facility] Comment on above: Performed By: #### U YASMINE #### [facility] [address] [place] [address] CO2 [Moles/Vol] 28 mmol/L Normal 20-31 [facility] Comment on above: Performed By: #### U YASMINE #### [facility] [address] [place] [address] Creatinine [Mass/Vol] 0.69 mg/dL Normal 0.50-0.90 [facility] [place] Comment on above: Performed By: #### U YASMINE #### [facility] [address] [place] [address] GFR 86.8 Normal >60 [facility] Comment on above: Result Comment: [...] secretion. Performed By: #### U YASMINE #### [facility] [address] [place] [address] Glucose [Mass/Vol] 72 mg/dL Normal 70-99 [facility] Comment on above: Performed By: #### U YASMNIE #### [facility] [address] [place] [address] Potassium [Moles/Vol] 3.8 mmol/L Normal 3.4-4.9 [facility] [place] Comment on above: Performed By: #### U YASMINE #### [facility] [address] [place] [address] Sodium [Moles/Vol] 140 mmol/L Normal 135-144 [facility] Comment on above: Performed By: #### U YASMINE #### [facility] [address] [place] [address] Urea nitrogen [Mass/Vol] 16 mg/dL Normal 8-23 [facility] Comment on above: Performed By: #### U YASMINE #### [facility] [address] [place] [address] proBNPon 02-20-2024 Natriuretic peptide B (Bld) [Mass/Vol] 187 pg/mL Normal [facility] Comment on above: Result Comment: [...] 2006;27:330-337 Performed By: #### U YASMINE #### [facility] [address] [place] [address] Basic Metabolic Panelon - Anion gap [Moles/Vol] 8 mmol/L Low 9-15 [facility] [place] Comment on above: Performed By: #### M G #### [facility] [address] [place] [address] Calcium [Mass/Vol] 8.1 mg/dL Low 8.5-9.9 [facility] Comment on above: Performed By: #### M G #### [facility] [address] [place] [address] Chloride [Moles/Vol] 101 mmol/L Normal 95-107 [facility] Comment on above: Performed By: #### M G #### [facility] [address] [place] [address] CO2 [Moles/Vol] 27 mmol/L Normal 20-31 [facility] Comment on above: Performed By: #### M G #### [facility] [address] [place] [address] Creatinine [Mass/Vol] 0.61 mg/dL Normal 0.50-0.90 [facility] [place] Comment on above: Performed By: #### M G #### [facility] [address] [place] [address] GFR 89.5 Normal >60 [facility] Comment on above: Result Comment: [...] secretion. Performed By: #### M G #### [facility] [address] [place] [address] Glucose [Mass/Vol] 98 mg/dL Normal 70-99 [facility] Comment on above: Performed By: #### M G #### [facility] [address] [place] [address] Potassium [Moles/Vol] 4.3 mmol/L Normal 3.4-4.9 [facility] [place] Comment on above: Performed By: #### M G #### [facility] [address] [place] [address] Sodium [Moles/Vol] 136 mmol/L Normal 135-144 [facility] Comment on above: Performed By: #### M G #### [facility] [address] [place] [address] Urea nitrogen [Mass/Vol] 15 mg/dL Normal 8-23 [facility] Comment on above: Performed By: #### M G #### [facility] [address] [place] [address] Culture, Urineon 02-01-2024 Culture, Urine ORDER#: [id number] ORDERED BY: YNES LANDA SOURCE: Urine Clean Catch COLLECTED: 02/01/24 09:30 ANTIBIOTICS AT MAX.: RECEIVED : 02/01/24 10:25 Culture, Urine FINAL 02/02/24 16:19 Cult,Urine: NO GROWTH Performed at [address] [address] ([phone] Normal [facility] Comment on above: Performed By: #### U YASMINE #### [facility] [address] [place] [address] Urinalysis, reflex to micros copicon 02-01-2024 Bilirubin Ql (U) Negative Normal Negative [facility] Comment on above: Performed By: #### U YASMINE #### [facility] [address] [place] [address] Clarity (U) Clear Normal Clear [facility] Comment on above: Performed By: #### U YASMINE #### [facility] [address] [place] [address] Color (U) Yellow Normal Straw/Hettinger [facility] Comment on above: Performed By: #### U YASMINE #### [facility] [address] [place] [address] Glucose Ql (U) Negative Normal Negative [facility] Comment on above: Performed By: #### U YASMINE #### [facility] [address] [place] [address] Hemoglobin Ql (U) Negative Normal Negative [facility] Comment on above: Performed By: #### U YASMINE #### [facility] [address] [place] [address] Ketones Ql (U) Negative Normal Negative [facility] Comment on above: Performed By: #### U YASMINE #### [facility] [address] [place] [address] Leukocyte esterase Test strip Ql (U) TRACE Abnormal Negative [facility] Comment on above: Performed By: #### U YASMINE #### [facility] [address] [place] [address] Nitrite Ql (U) Negative Normal Negative [facility] Comment on above: Performed By: #### U YASMINE #### [facility] [address] [place] [address] pH (U) 7.0 [pH] Normal 5.0-9.0 [facility] Comment on above: Performed By: #### U YASMINE #### [facility] [address] [place] [address] Protein Ql (U) Negative Normal Negative [facility] Comment on above: Performed By: #### U YASMINE #### [facility] [address] [place] [address] Specific gravity (U) [Rel density] 1.012 Normal 1.005-1.03 [facility] Comment on above: Performed By: #### U YASMINE #### [facility] [address] [place] [address] Urobilinogen Qn (U) 1.0 {Cuba'U}/dL Normal < 2.0 [facility] Comment on above: Performed By: #### U YASMINE #### [facility] [address] [place] [address] Urine Microscopicon 02-01-20 24 Bacteria LM.HPF (Urine sed) [#/Area] Negative Normal Negative [facility] Comment on above: Performed By: #### M G #### [facility] [address] [place] [address] Urine Epithelial Cells Auto 3-5 Normal 0-5 [facility] Comment on above: Performed By: #### M G #### [facility] [address] [place] [address] Urine Hyaline Casts Auto 1-3 Normal 0-5 [facility] Comment on above: Performed By: #### M G #### [facility] [address] [place] [address] Urine RBC Auto 0-2 Normal 0-5 [facility] Comment on above: Performed By: #### M G #### [facility] [address] [place] [address] Urine WBC Auto 10-20 Abnormal 0-5 [facility] Comment on above: Performed By: #### M G #### [facility] [address] [place] [address] [facility] Bacterial susceptibility panel YASMINE (Isol) ORDER#: [id number] ORDERED BY: AYANA KING SOURCE: Urine Clean Catch COLLECTED: 01/12/24 17:08 ANTIBIOTICS AT MAX.: RECEIVED : 01/12/24 17:08 Culture, Urine FINAL 01/14/24 13:21 Performed at [address] [address] ([phone] Klebsiella pneumoniae 10 to 50,000 CFU/ML K. [...] and P. mirabilis S=SUSCEPTIBLE I=INTERMEDIATE R=RESISTANT Normal [facility] Comment on above: Performed By: #### 5 [id number] #### [facility] [address] [facility] [address] CBC With Platelet and Differ entialon 01-12-2024 Basophils (Bld) [#/Vol] 0.1 10*3/uL Normal 0.0-0.2 [facility] Comment on above: Performed By: #### L IPAS #### [facility] [address] [place] [address] Basophils/100 WBC (Bld) 1.0 % Normal [facility] Comment on above: Performed By: #### L IPAS #### [facility] [address] [place] [address] Eosinophils (Bld) [#/Vol] 0.6 10*3/uL Normal 0.0-0.7 [facility] Comment on above: Performed By: #### L IPAS #### [facility] [address] [place] [address] Eosinophils/100 WBC (Bld) 10.2 % Normal [facility] Comment on above: Performed By: #### L IPAS #### [facility] [address] [place] [address] Erythrocyte distribution width (RBC) [Ratio] 13.7 % Normal 11.5-14.5 [facility] Comment on above: Performed By: #### L IPAS #### [facility] [address] [place] [address] Hematocrit (Bld) [Volume fraction] 38.8 % Normal 37.0-47.0 [facility] Comment on above: Performed By: #### L IPAS #### [facility] [address] [place] [address] Hemoglobin (Bld) [Mass/Vol] 12.8 g/dL Normal 12.0-16.0 [facility] Comment on above: Performed By: #### L IPAS #### [facility] [address] [place] [address] Lymphocytes (Bld) [#/Vol] 2.3 10*3/uL Normal 1.0-4.8 [facility] Comment on above: Performed By: #### L IPAS #### [facility] [address] [place] [address] Lymphocytes/100 WBC (Bld) 40.1 % Normal [facility] Comment on above: Performed By: #### L IPAS #### [facility] [address] [place] [address] MCH (RBC) [Entitic mass] 32.6 pg Critically high 27.0-31.3 [facility] Comment on above: Performed By: #### L IPAS #### [facility] [address] [place] [address] MCHC 33.0 % Normal 33.0-37.0 [facility] Comment on above: Performed By: #### L IPAS #### [facility] [address] [place] [address] MCV (RBC) [Entitic vol] 98.7 fL Critically high 79.4-94 .8 [facility] Comment on above: Performed By: #### L IPAS #### [facility] [address] [place] [address] Monocytes (Bld) [#/Vol] 0.5 10*3/uL Normal 0.2-0.8 [facility] Comment on above: Performed By: #### L IPAS #### [facility] [address] [place] [address] Monocytes/100 WBC (Bld) 9.3 % Normal M [facility] Comment on above: Performed By: #### L IPAS #### [facility] [address] [place] [address] Neutrophils (Bld) [#/Vol] 2.3 10*3/uL Normal 1.4-6.5 [facility] Comment on above: Performed By: #### L IPAS #### [facility] [address] [place] [address] Neutrophils/100 WBC (Bld) 39.2 % Normal [facility] Comment on above: Performed By: #### L IPAS #### [facility] [address] [place] [address] Platelets (Bld) [#/Vol] 142 10*3/uL Normal 130-400 [facility] Comment on above: Performed By: #### L IPAS #### [facility] [address] [place] [address] RBC (Bld) [#/Vol] 3.93 10*6/uL Low 4.20-5.40 [facility] Comment on above: Performed By: #### L IPAS #### [facility] [address] [place] [address] WBC (Bld) [#/Vol] 5.8 10*3/uL Normal 4.8-10.8 [facility] Comment on above: Performed By: #### L IPAS #### [facility] [address] [place] [address] CT CERVICAL SPINE WO CONTRAS Ton 01-12-2024 [...] Arnold Escobedo MD 01/12/24 Final result Normal [facility] CT HEAD WO CONTRASTon 2023 [...] Vince Ace MD 01/12/24 Final result Normal [facility] Comprehensive Metabolic Pane ridge 01-12-2024 Albumin [Mass/Vol] 3.2 g/dL Low 3.5-4.6 [facility] Comment on above: Performed By: #### C XURN #### [facility] [address] [place] [address] ALP [Catalytic activity/Vol] 105 U/L Normal 40-130 [facility] Comment on above: Performed By: #### C XURN #### [facility] [address] [place] [address] ALT [Catalytic activity/Vol] 19 U/L Normal 0-33 [facility] Comment on above: Performed By: #### C XURN #### [facility] [address] [place] [address] Anion gap [Moles/Vol] 7 mmol/L Low 9-15 [facility] [place] Comment on above: Performed By: #### C JENNIFERRN #### [facility] [address] [place] [address] AST [Catalytic activity/Vol] 33 U/L Normal 0-35 [facility] Comment on above: Performed By: #### C GAYLE #### [facility] [address] [place] [address] Bilirubin [Mass/Vol] 0.6 mg/dL Normal 0.2-0.7 [facility] Comment on above: Performed By: #### C GAYLE #### [facility] [address] [place] [address] Calcium [Mass/Vol] 8.3 mg/dL Low 8.5-9.9 [facility] Comment on above: Performed By: #### C GAYLE #### [facility] [address] [place] [address] Chloride [Moles/Vol] 102 mmol/L Normal 95-107 [facility] Comment on above: Performed By: #### C JESUSN #### [facility] [address] [place] [address] CO2 [Moles/Vol] 28 mmol/L Normal 20-31 [facility] Comment on above: Performed By: #### C GAYLE #### [facility] [address] [place] [address] Creatinine [Mass/Vol] 0.61 mg/dL Normal 0.50-0.90 [facility] [place] Comment on above: Performed By: #### C GAYLE #### [facility] [address] [place] [address] GFR 89.5 Normal >60 [facility] Comment on above: Result Comment: [...] secretion. Performed By: #### C XURN #### [facility] [address] [place] [address] Globulin (S) [Mass/Vol] 4.1 g/dL Critically high 2.3-3.5 [facility] Comment on above: Performed By: #### C XURN #### [facility] [address] [place] [address] Glucose [Mass/Vol] 100 mg/dL Critically high 70-99 M [facility] Comment on above: Performed By: #### C XURN #### [facility] [address] [place] [address] Potassium [Moles/Vol] 4.7 mmol/L Normal 3.4-4.9 [facility] [place] Comment on above: Performed By: #### C XURN #### [facility] [address] [place] [address] Protein [Mass/Vol] 7.3 g/dL Normal 6.3-8.0 [facility] Comment on above: Performed By: #### C XURN #### [facility] [address] [place] [address] Sodium [Moles/Vol] 137 mmol/L Normal 135-144 [facility] Comment on above: Performed By: #### C XURN #### [facility] [address] [place] [address] Urea nitrogen [Mass/Vol] 12 mg/dL Normal 8-23 [facility] Comment on above: Performed By: #### C XURN #### [facility] [address] [place] [address] Culture, Urineon 01-12-2024 Culture, Urine ORDER#: [id number] ORDERED BY: AYANA KING SOURCE: Urine Clean Catch COLLECTED: 01/12/24 17:08 ANTIBIOTICS AT MAX.: RECEIVED : 01/12/24 17:08 Culture, Urine PRELIM 01/13/24 19:35 Cult,Urine: GRAM NEGATIVE RODS Cult,Urine: 10 to 50,000 CFU/ML Performed at [place] [address] [place] [address] Normal [facility] Comment on above: Performed By: #### C XURN #### [facility] [address] [place] [address] High Sensitivity Troponin To n 01-12-2024 High Sensitivity Troponin T 11 ng/L Normal 0-19 [facility] Comment on above: Result Comment: High Sensitivity Troponin values cannot be compared with other Troponin methodologies. Performed By: #### T RP5 #### [facility] [address] [place] [address] High Sensitivity Troponin T 8 ng/L Normal 0-19 [facility] Comment on above: Result Comment: High Sensitivity Troponin values cannot be compared with other Troponin methodologies. Performed By: #### T RP5 #### [facility] [address] [place] [address] Lipaseon 01-12-2024 Lipase [Catalytic activity/Vol] 50 U/L Normal 12-95 [facility] Comment on above: Performed By: #### L IPAS #### [facility] [address] [place] [address] Urinalysis, reflex to cultur adri 01-12-2024 Urine Reflexed to Culture Yes Normal [facility] Comment on above: Performed By: #### C XURN #### [facility] [address] [place] [address] Bilirubin Ql (U) Negative Normal Negative [facility] Comment on above: Performed By: #### C XURN #### [facility] [address] [place] [address] Clarity (U) Clear Normal Clear [facility] Comment on above: Performed By: #### C XURN #### [facility] [address] [place] [address] Color (U) Yellow Normal Straw/Hettinger [facility] Comment on above: Performed By: #### Sherita ARAUJO #### [facility] [address] [place] [address] Glucose Ql (U) Negative Normal Negative [facility] Comment on above: Performed By: #### Sherita ARAUJO #### [facility] [address] [place] [address] Hemoglobin Ql (U) MODERATE Abnormal Negative [facility] Comment on above: Performed By: #### Sherita ARAUJO #### [facility] [address] [place] [address] Ketones Ql (U) Negative Normal Negative [facility] Comment on above: Performed By: #### Sherita ARAUJO #### [facility] [address] [place] [address] Leukocyte esterase Test strip Ql (U) MODERATE Abnormal Negative [facility] Comment on above: Performed By: #### Sherita ARAUJO #### [facility] [address] [place] [address] Nitrite Ql (U) Negative Normal Negative [facility] Comment on above: Performed By: #### Sherita ARAUJO #### [facility] [address] [place] [address] pH (U) 7.0 [pH] Normal 5.0-9.0 [facility] Comment on above: Performed By: #### C GAYLE #### [facility] [address] [place] [address] Protein Ql (U) Negative Normal Negative [facility] Comment on above: Performed By: #### C GAYLE #### [facility] [address] [place] [address] Specific gravity (U) [Rel density] 1.008 Normal 1.005-1.03 [facility] Comment on above: Performed By: #### C GAYLE #### [facility] [address] [place] [address] Urobilinogen Qn (U) 1.0 {Cuba'U}/dL Normal < 2.0 [facility] Comment on above: Performed By: #### C XURN #### [facility] [address] [place] [address] Urine Microscopicon 01-12-20 24 Urine Bacteria RARE Abnormal Negative [facility] Comment on above: Performed By: #### U YASMINE #### [facility] [address] [place] [address] Urine Yeast Present Abnormal None Seen [facility] Comment on above: Performed By: #### U YASMINE #### [facility] [address] [place] [address] Urine Epithelial Cells Auto 0-2 Normal 0-5 [facility] Comment on above: Performed By: #### U YASMINE #### [facility] [address] [place] [address] Urine Hyaline Casts Auto 0-1 Normal 0-5 [facility] Comment on above: Performed By: #### U YASMINE #### [facility] [address] [place] [address] Urine RBC Auto 50-100 Abnormal 0-5 [facility] Comment on above: Performed By: #### U YASMINE #### [facility] [address] [place] [address] Urine WBC Auto 50-100 Abnormal 0-5 [facility] Comment on above: Performed By: #### U YASMINE #### [facility] [address] [place] [address] XR CHEST PORTABLEon 01-12-20 24 XR CHEST [...] Fahad Dozier MD 01/12/24 Final result Normal [facility] XR ELBOW RIGHT (MIN 3 [...] Fahad Dozier MD 01/12/24 Final result Normal [facility] CT CERVICAL SPINE WO CONTRAS [...] Ernst Hernandez MD 12/21/23 Final result Normal [facility] CT HEAD WO CONTRASTon 2023 [...] shift. No abnormal extra-axial fluid collection. The triveid-white differentiation is maintained without evidence of an [...] Ernst Hernandez MD 12/21/23 Final result Normal [facility] Bacterial susceptibility hernandez el by [facility] 12-16-2023 Bacterial susceptibility panel YASMINE (Isol) ORDER#: [id number] ORDERED BY: YNES LANDA SOURCE: Urine Clean Catch COLLECTED: 12/16/23 12:30 ANTIBIOTICS AT MAX.: RECEIVED : 12/16/23 13:50 Culture, Urine FINAL 12/18/23 12:22 Performed at [address] [address] ([phone] Escherichia coli >100,000 CFU/ML E. coli ANTIBIOTICS [...] and P. mirabilis S=SUSCEPTIBLE I=INTERMEDIATE R=RESISTANT Normal [facility] Comment on above: Performed By: #### U YASMINE #### [facility] [address] [place] [address] Basic Metabolic Panelon 05-1 0-2024 Anion gap [Moles/Vol] 9 mmol/L Normal 9-15 [facility] [place] Comment on above: Performed By: #### B MP #### [facility] [address] [place] [address] Calcium [Mass/Vol] 8.7 mg/dL Normal 8.5-9.9 [facility] Comment on above: Performed By: #### B MP #### [facility] [address] [place] [address] Chloride [Moles/Vol] 99 mmol/L Normal 95-107 [facility] Comment on above: Performed By: #### B MP #### [facility] [address] [place] [address] CO2 [Moles/Vol] 26 mmol/L Normal 20-31 [facility] Comment on above: Performed By: #### B MP #### [facility] [address] [place] [address] Creatinine [Mass/Vol] 0.59 mg/dL Normal 0.50-0.90 [facility] [place] Comment on above: Performed By: #### B MP #### [facility] [address] [place] [address] GFR >90.0 Normal >60 [facility] Comment on above: Result Comment: [...] secretion. Performed By: #### B MP #### [facility] [address] [place] [address] Glucose [Mass/Vol] 125 mg/dL Critically high 70-99 M [facility] Comment on above: Performed By: #### B MP #### [facility] [address] [place] [address] Potassium [Moles/Vol] 4.2 mmol/L Normal 3.4-4.9 [facility] [place] Comment on above: Performed By: #### B MP #### [facility] [address] [place] [address] Sodium [Moles/Vol] 134 mmol/L Low 135-144 [facility] Comment on above: Performed By: #### B MP #### [facility] [address] [place] [address] Urea nitrogen [Mass/Vol] 11 mg/dL Normal 8-23 [facility] Comment on above: Performed By: #### B MP #### [facility] [address] [place] [address] Culture, Urineon 12-16-2023 Culture, Urine ORDER#: [id number] ORDERED BY: YNES LANDA SOURCE: Urine Clean Catch COLLECTED: 12/16/23 12:30 ANTIBIOTICS AT MAX.: RECEIVED : 12/16/23 13:50 Culture, Urine PRELIM 12/17/23 19:00 Performed at [address] [id number] ([phone] Escherichia coli >100,000 CFU/ML Normal [facility] Comment on above: Performed By: #### U YASMINE #### [facility] [address] [place] [address] Urinalysis, reflex to micros copicon 12-16-2023 Bilirubin Ql (U) Negative Normal Negative [facility] Comment on above: Performed By: #### M G #### [facility] [address] [place] [address] Clarity (U) Clear Normal Clear [facility] Comment on above: Performed By: #### M G #### [facility] [address] [place] [address] Color (U) Yellow Normal Straw/Hettinger [facility] Comment on above: Performed By: #### M G #### [facility] [address] [place] [address] Glucose Ql (U) Negative Normal Negative [facility] Comment on above: Performed By: #### M G #### [facility] [address] [place] [address] Hemoglobin Ql (U) Negative Normal Negative [facility] Comment on above: Performed By: #### M G #### [facility] [address] [place] [address] Ketones Ql (U) Negative Normal Negative [facility] Comment on above: Performed By: #### M G #### [facility] [address] [place] [address] Leukocyte esterase Test strip Ql (U) MODERATE Abnormal Negative [facility] Comment on above: Performed By: #### M G #### [facility] [address] [place] [address] Nitrite Ql (U) Negative Normal Negative [facility] Comment on above: Performed By: #### M G #### [facility] [address] [place] [address] pH (U) 7.0 [pH] Normal 5.0-9.0 [facility] Comment on above: Performed By: #### M G #### [facility] [address] [place] [address] Protein Ql (U) Negative Normal Negative [facility] Comment on above: Performed By: #### M G #### [facility] [address] [place] [address] Specific gravity (U) [Rel density] 1.014 Normal 1.005-1.03 [facility] Comment on above: Performed By: #### M G #### [facility] [address] [place] [address] Urobilinogen Qn (U) 1.0 {Cuba'U}/dL Normal < 2.0 [facility] Comment on above: Performed By: #### M G #### [facility] [address] [place] [address] Urine Microscopicon 05-10-20 24 Urine Bacteria FEW Abnormal Negative [facility] Comment on above: Performed By: #### U YASMINE #### [facility] [address] [place] [address] Urine Epithelial Cells Auto 0-2 Normal 0-5 [facility] Comment on above: Performed By: #### U YASMINE #### [facility] [address] [place] [address] Urine Hyaline Casts Auto 1-3 Normal 0-5 [facility] Comment on above: Performed By: #### U YASMINE #### [facility] [address] [place] [address] Urine RBC Auto 6-10 Abnormal 0-5 [facility] Comment on above: Performed By: #### U YASMINE #### [facility] [address] [place] [address] Urine WBC Auto >100 Critically high 0-5 [facility] Comment on above: Performed By: #### U YASMINE #### [facility] [address] [place] [address] CBC With Platelet No Differe ntialon 12-02-2023 Erythrocyte distribution width (RBC) [Ratio] 13.6 % Normal 11.5-14.5 [facility] Comment on above: Performed By: #### C BCND #### [facility] [address] [place] [address] Hematocrit (Bld) [Volume fraction] 38.3 % Normal 37.0-47.0 [facility] Comment on above: Performed By: #### C BCND #### [facility] [address] [place] [address] Hemoglobin (Bld) [Mass/Vol] 12.7 g/dL Normal 12.0-16.0 [facility] Comment on above: Performed By: #### C BCND #### [facility] [address] [place] [address] MCH (RBC) [Entitic mass] 32.1 pg Critically high 27.0-31.3 [facility] Comment on above: Performed By: #### C BCND #### [facility] [address] [place] [address] MCHC 33.2 % Normal 33.0-37.0 [facility] Comment on above: Performed By: #### C BCND #### [facility] [address] [place] [address] MCV (RBC) [Entitic vol] 96.7 fL Critically high 79.4-94 .8 [facility] Comment on above: Performed By: #### C BCND #### [facility] [address] [place] [address] Platelets (Bld) [#/Vol] 149 10*3/uL Normal 130-400 [facility] Comment on above: Performed By: #### C BCND #### [facility] [address] [place] [address] RBC (Bld) [#/Vol] 3.96 10*6/uL Low 4.20-5.40 [facility] Comment on above: Performed By: #### C BCND #### [facility] [address] [place] [address] WBC (Bld) [#/Vol] 5.2 10*3/uL Normal 4.8-10.8 [facility] Comment on above: Performed By: #### C BCND #### [facility] [address] [place] [address] Culture, Urineon 11-28-2023 Culture, Urine ORDER#: [id number] ORDERED BY: YNES LANDA SOURCE: Urine Clean Catch COLLECTED: 11/28/23 14:19 ANTIBIOTICS AT MAX.: RECEIVED : 11/28/23 16:28 Culture, Urine FINAL 11/29/23 18:57 Cult,Urine: NO SIGNIFICANT GROWTH Performed at [address] [address] ([phone] Normal [facility] Comment on above: Performed By: #### C XUCARLINE #### [facility] [address] [place] [address] Urinalysis, reflex to micros copicon 11-28-2023 Bilirubin Ql (U) Negative Normal Negative [facility] Comment on above: Performed By: #### U YASMINE #### [facility] [address] [place] [address] Clarity (U) Clear Normal Clear [facility] Comment on above: Performed By: #### U YASMINE #### [facility] [address] [place] [address] Color (U) Yellow Normal Straw/Hettinger [facility] Comment on above: Performed By: #### U YASMINE #### [facility] [address] [place] [address] Glucose Ql (U) Negative Normal Negative [facility] Comment on above: Performed By: #### U YASMINE #### [facility] [address] [place] [address] Hemoglobin Ql (U) Negative Normal Negative [facility] Comment on above: Performed By: #### U YASMINE #### [facility] [address] [place] [address] Ketones Ql (U) Negative Normal Negative [facility] Comment on above: Performed By: #### U YASMINE #### [facility] [address] [place] [address] Leukocyte esterase Test strip Ql (U) Negative Normal Negative [facility] Comment on above: Performed By: #### U YASMINE #### [facility] [address] [place] [address] Nitrite Ql (U) Negative Normal Negative [facility] Comment on above: Performed By: #### U YASMINE #### [facility] [address] [place] [address] pH (U) 7.0 [pH] Normal 5.0-9.0 [facility] Comment on above: Performed By: #### U YASMINE #### [facility] [address] [place] [address] Protein Ql (U) Negative Normal Negative [facility] Comment on above: Performed By: #### U YASMINE #### [facility] [address] [place] [address] Specific gravity (U) [Rel density] 1.007 Normal 1.005-1.03 [facility] Comment on above: Performed By: #### U YASMINE #### [facility] [address] [place] [address] Urobilinogen Qn (U) 1.0 {Cuba'U}/dL Normal < 2.0 [facility] Comment on above: Performed By: #### U YASMINE #### [facility] [address] [place] [address] Alanine aminotransferase [En zymatic activity/volume] in Serum or PlasmaOrdered By: Carline Jackson on 11-23-2023 ALT [Catalytic activity/Vol] 20 U/L 7-52 [facility] Albumin [Mass/volume] in Ser um or Plasma by Bromocresol green (BCG) dye binding methoOrdered By: Carline Jackson on 11-23-2023 Albumin BCG dye [Mass/Vol] 3.2 g/dL 3.5-5.7 [facility] Alkaline phosphatase [Enzyma tic activity/volume] in Serum or PlasmaOrdered By: Carline Jackson on 11-23-2023 ALP [Catalytic activity/Vol] 75 U/L 34-104 [facility] Aspartate aminotransferase [ Enzymatic activity/volume] in Serum or PlasmaOrdered By: Carline Jackson on 11-23-2023 AST [Catalytic activity/Vol] 40 U/L 13-39 [facility] Basophils Auto (Bld) [#/Vol] Ordered By: Carline Jackson on 11-23-2023 Basophils (Bld) [#/Vol] 0.1 10*3/uL 0.0-0.2 [facility] Basophils/100 WBC Auto (Bld) Ordered By: Carline Jackson on 11-23-2023 Basophils/100 WBC (Bld) 1.1 % . F [facility] Bilirubin.total [Mass/volume ] in Serum or PlasmaOrdered By: Carline Jackson on 11-23-2023 Bilirubin [Mass/Vol] 0.9 mg/dL 0.3-1.0 [facility] Calcium [Mass/volume] in Ser um or PlasmaOrdered By: Carline Jackson on 11-23-2023 Calcium [Mass/Vol] 8.7 mg/dL 8.6-10.3 [facility] Carbon dioxide, total [Moles /volume] in Serum or PlasmaOrdered By: Carline Jackson on 11-23-2023 CO2 [Moles/Vol] 27.2 mmol/L 21.0-31.0 [facility] Chloride [Moles/volume] in S marianna or PlasmaOrdered By: Carline Jackson on 11-23-2023 Chloride [Moles/Vol] 104 mmol/L 98-107 [facility] Creatinine [Mass/volume] in Serum or PlasmaOrdered By: Carline Jackson on 11-23-2023 Creatinine [Mass/Vol] 0.79 mg/dL 0.60-1.20 [facility] Eosinophils Auto (Bld) [#/Vo l]Ordered By: Carline Jackson on 11-23-2023 Eosinophils (Bld) [#/Vol] 0.5 10*3/uL 0.0-0.45 [facility] Eosinophils/100 WBC Auto (Bl d)Ordered By: Carline Jackson on 11-23-2023 Eosinophils/100 WBC (Bld) 9.7 % . [facility] Erythrocyte distribution wid th Auto (RBC) [Ratio]Ordered By: Carline Jackson on 11-23-2023 Erythrocyte distribution width (RBC) [Ratio] 13.9 % 11.9-15.3 [facility] Erythrocyte sedimentation ra te by Photometric methodOrdered By: Carline Jackson on 11-23-2023 ESR Photometric method (Bld) [Velocity] 30 mm/hr 0-29 [facility] Globulin Calc (S) [Mass/Vol] Ordered By: Carline Jackson on 11-23-2023 Globulin (S) [Mass/Vol] 4.1 g/dL [facility] Glucose [Mass/volume] in Ser um or PlasmaOrdered By: Carline Jackson on 11-23-2023 Glucose [Mass/Vol] 94 mg/dL 70-100 [facility] Comment on above: ADA recommended refe rence rangeRandom Glucose Reference Range is dependent on time and content of last meal. Glucose of more than 200 mg/dL in a nonstressed, ambulatory subject supports the diagnosis of Diabetes Mellitus. Hematocrit Auto (Bld) [Volum e fraction]Ordered By: Carline Jackson on 11-23-2023 Hematocrit (Bld) [Volume fraction] 37.4 % 34.0-46.4 [facility] Hemoglobin [Mass/volume] in BloodOrdered By: Carline Jackson on 11-23-2023 Hemoglobin (Bld) [Mass/Vol] 12.6 g/dL 11.8-15.4 [facility] Leukocytes [#/volume] correc kala for nucleated erythrocytes in Blood by Automated counOrdered By: Carline Jackson on 11-23-2023 WBC corrected for nucl RBC Auto (Bld) [#/Vol] 5.3 10*3/uL 3.8-11.6 [facility] Lymphocytes Auto (Bld) [#/Vo l]Ordered By: Carline Jackson on 11-23-2023 Lymphocytes (Bld) [#/Vol] 2.4 10*3/uL 1.00-4.8 [facility] Lymphocytes/100 WBC Auto (Bl d)Ordered By: Carline Jackson on 11-23-2023 Lymphocytes/100 WBC (Bld) 45.9 % . [facility] MCH Auto (RBC) [Entitic mass ]Ordered By: Carline Jackson on 11-23-2023 MCH (RBC) [Entitic mass] 32.6 pg 24.7-34.3 [facility] MCHC Auto (RBC) [Mass/Vol]Or dered By: Carline Jackson on 11-23-2023 MCHC (RBC) [Mass/Vol] 33.8 g/dL 32.0-35.0 [facility] MCV Auto (RBC) [Entitic vol] Ordered By: Carline Jackson on 11-23-2023 MCV (RBC) [Entitic vol] 96.4 fL 80-100 [facility] Monocytes Auto (Bld) [#/Vol] Ordered By: Carline Jackson on 11-23-2023 Monocytes (Bld) [#/Vol] 0.5 10*3/uL 0.0-0.8 [facility] Monocytes/100 WBC Auto (Bld) Ordered By: Carline Jackson on 11-23-2023 Monocytes/100 WBC (Bld) 9.1 % . [facility] Neutrophils Auto (Bld) [#/Vo l]Ordered By: Carline Jackson on 11-23-2023 Neutrophils (Bld) [#/Vol] 1.8 10*3/uL 1.8-7.7 [facility] Neutrophils/100 WBC Auto (Bl d)Ordered By: Carline Jackson on 11-23-2023 Neutrophils/100 WBC (Bld) 34.2 % . [facility] No Panel InformationOrdered By: Carline Jackson on 11-23-2023 Estimated GFR (CKD-EPI) > 60.0 mL/Min [facility] Creatinine Clearance (Chem N/A [facility] Nucleated erythrocytes [Pres ence] in Blood by Automated countOrdered By: Carline Jackson on 11-23-2023 Nucleated RBC Auto Ql (Bld) 0.2 /100{WBC} 0-0.5 [facility] Platelet mean volume Auto (B ld) [Entitic vol]Ordered By: Carline Jackson on 11-23-2023 Platelet mean volume (Bld) [Entitic vol] 8.6 fL 6.3-10.7 [facility] Platelets Auto (Bld) [#/Vol] Ordered By: Carline Jackson on 11-23-2023 Platelets (Bld) [#/Vol] 165 10*3/uL 150-450 [facility] Potassium [Moles/volume] in Serum or PlasmaOrdered By: Carline Jackson on 11-23-2023 Potassium [Moles/Vol] 4.4 mmol/L 3.5-5.1 [facility] Protein [Mass/volume] in Ser um or PlasmaOrdered By: Carline Jackson on 11-23-2023 Protein [Mass/Vol] 7.3 g/dL 6.4-8.9 [facility] RBC Auto (Bld) [#/Vol]Ordere d By: Carline Jackson on 11-23-2023 RBC (Bld) [#/Vol] 3.87 10*6/uL 3.60-5.00 [facility] Serum or plasma albumin/glob ulin mass ratioOrdered By: Carline Jackson on 11-23-2023 Albumin/Globulin [Mass ratio] 0.8 {ratio} [facility] Serum or plasma anion gap de terminationOrdered By: Carline Jackson on 11-23-2023 Anion gap [Moles/Vol] 7.2 mmol/L 6.0-15.0 [facility] Sodium [Moles/volume] in Ser um or PlasmaOrdered By: Carline Jackson on 11-23-2023 Sodium [Moles/Vol] 134 mmol/L 136-145 [facility] Urea nitrogen [Mass/volume] in Serum or PlasmaOrdered By: Carline Jackson on 11-23-2023 Urea nitrogen [Mass/Vol] 16 mg/dL 7-25 [facility] WBC Auto (Bld) [#/Vol]Ordere d By: Carline Jackson on 11-23-2023 WBC (Bld) [#/Vol] 5.3 10*3/uL 3.8-11.6 [facility] Urinalysis, reflex to micros copicon 11-07-2023 Bilirubin Ql (U) Negative Normal Negative [facility] Comment on above: Performed By: #### U A #### [facility] [address] [place] [address] Clarity (U) CLOUDY Abnormal Clear [facility] Comment on above: Performed By: #### U A #### [facility] [address] [place] [address] Color (U) Yellow Normal Straw/Hettinger [facility] Comment on above: Performed By: #### U A #### [facility] [address] [place] [address] Glucose Ql (U) Negative Normal Negative [facility] Comment on above: Performed By: #### U A #### [facility] [address] [place] [address] Hemoglobin Ql (U) TRACE Abnormal Negative [facility] Comment on above: Performed By: #### U A #### [facility] [address] [place] [address] Ketones Ql (U) Negative Normal Negative [facility] Comment on above: Performed By: #### U A #### [facility] [address] [place] [address] Leukocyte esterase Test strip Ql (U) LARGE Abnormal Negative [facility] Comment on above: Performed By: #### U A #### [facility] [address] [place] [address] Nitrite Ql (U) Positive Abnormal Negative [facility] Comment on above: Performed By: #### U A #### [facility] [address] [place] [address] pH (U) 7.5 [pH] Normal 5.0-9.0 [facility] Comment on above: Performed By: #### U A #### [facility] [address] [place] [address] Protein Ql (U) TRACE Abnormal Negative [facility] Comment on above: Performed By: #### U A #### [facility] [address] [place] [address] Specific gravity (U) [Rel density] 1.014 Normal 1.005-1.03 [facility] Comment on above: Performed By: #### U A #### [facility] [address] [place] [address] Urobilinogen Qn (U) 4.0 {Cuba'U}/dL Abnormal < 2.0 [facility] Comment on above: Performed By: #### U A #### [facility] [address] [place] [address] Urine Microscopicon 11-07-19 24 Epithelial cells LM Ql (Urine sed) 0-2 Normal [facility] Comment on above: Performed By: #### U YASMINE #### [facility] [address] [facility] [address] Urine Bacteria MODERATE Abnormal Negative [facility] Comment on above: Performed By: #### U YASMINE #### [facility] [address] [place] [address] Urine RBC 0-2 Normal 0-2 [facility] Comment on above: Performed By: #### U YASMINE #### [facility] [address] [facility] [address] WBC (U) [#/Vol] /uL Abnormal 0-5 [facility] Comment on above: Performed By: #### U YASMINE #### [facility] [address] [facility] [address] Bacterial susceptibility hernandez el YASMINE (Isol)on 11-06-2023 Bacterial susceptibility panel Disk diffusion (KB) (Isol) ORDER#: [id number] ORDERED BY: YNES LANDA SOURCE: Urine Voided COLLECTED: 11/06/23 06:00 ANTIBIOTICS AT MAX.: RECEIVED : 11/07/23 07:50 Culture, Urine FINAL 11/09/23 08:13 Performed at [facility] [address] [place] [phone] Enterobacter cloacae complex >100,000 CFU/ML E. cloacae complex ANTIBIOTICS YASMINE Interp KB ZoneKB Interp Ceftriaxone S Gentamicin <=1 S Levofloxacin <=0.12 S Nitrofurantoin 64 I Piperacillin/Tazobacta m <=4 S Trimethoprim/Sulfameth oxazole <=20 S S=SUSCEPTIBLE I=INTERMEDIATE R=RESISTANT Normal [facility] Comment on above: Performed By: #### 5 0545-3 #### [facility] [address] [place] [address] Bacterial susceptibility hernandez el by [facility] 11-06-2023 Bacterial susceptibility panel YASMINE (Isol) ORDER#: [id number] ORDERED BY: YNES LANDA SOURCE: Urine Voided COLLECTED: 11/06/23 06:00 ANTIBIOTICS AT MAX.: RECEIVED : 11/07/23 07:50 Culture, Urine PRELIM 11/08/23 23:23 Performed at [place] [address] [place] [address] ([phone] Enterobacter cloacae complex >100,000 CFU/ML E. cloacae complex ANTIBIOTICS YASMINE Interp Gentamicin <=1 S Levofloxacin <=0.12 S Nitrofurantoin 64 I Piperacillin/Tazobacta m <=4 S Trimethoprim/Sulfameth oxazole <=20 S S=SUSCEPTIBLE I=INTERMEDIATE R=RESISTANT Normal [facility] Comment on above: Performed By: #### 5 0545-3 #### [facility] [address] [facility] [address] Culture, Urineon 11-06-2023 Culture, Urine ORDER#: [id number] ORDERED BY: YNES LANDA SOURCE: Urine Voided COLLECTED: 11/06/23 06:00 ANTIBIOTICS AT MAX.: RECEIVED : 11/07/23 07:50 Culture, Urine PRELIM 11/08/23 10:00 Performed at [address] [id number] ([phone] Enterobacter cloacae complex >100,000 CFU/ML Normal [facility] Comment on above: Performed By: #### U YASMINE #### [facility] [address] [facility] [id number] Alcoholon 10-21-2023 Blood Alcohol Concentration Not indicated Normal [facility] Comment on above: Performed By: #### Sherita ARAUJO #### [facility] [address] [place] [id number] Ethanol [Mass/Vol] mg/dL Normal [facility] Comment on above: Performed By: #### Sherita ARAUJO #### [facility] [address] [place] [address] Bacterial susceptibility hernandez el by [facility] 10-21-2023 Bacterial susceptibility panel YASMINE (Isol) ORDER#: [id number] ORDERED BY: AYANA KING SOURCE: Urine Clean Catch COLLECTED: 10/21/23 18:35 ANTIBIOTICS AT MAX.: RECEIVED : 10/21/23 18:35 Culture, Urine FINAL 10/23/23 20:41 Performed at [address] [id number] ([phone] Escherichia coli >100,000 CFU/ML E. coli ANTIBIOTICS [...] and P. mirabilis S=SUSCEPTIBLE I=INTERMEDIATE R=RESISTANT Normal [facility] Comment on above: Performed By: #### Sherita ARAUJO #### [facility] [address] [facility] [address] CBC With Platelet and Differ entialon 10-21-2023 Basophils (Bld) [#/Vol] 0.1 10*3/uL Normal 0.0-0.2 [facility] Comment on above: Performed By: #### Sherita ARAUJO #### [facility] [address] [place] [address] Basophils/100 WBC (Bld) 1.1 % Normal [facility] Comment on above: Performed By: #### Sherita ARAUJO #### [facility] [address] [place] [address] Eosinophils (Bld) [#/Vol] 0.6 10*3/uL Normal 0.0-0.7 [facility] Comment on above: Performed By: #### Sherita ARAUJO #### [facility] [address] [place] [address] Eosinophils/100 WBC (Bld) 9.0 % Normal [facility] Comment on above: Performed By: #### Sherita ARAUJO #### [facility] [address] [place] [address] Erythrocyte distribution width (RBC) [Ratio] 13.5 % Normal 11.5-14.5 [facility] Comment on above: Performed By: #### Sherita ARAUJO #### [facility] [address] [place] [address] Hematocrit (Bld) [Volume fraction] 42.3 % Normal 37.0-47.0 [facility] Comment on above: Performed By: #### C GAYLE #### [facility] [address] [place] [address] Hemoglobin (Bld) [Mass/Vol] 13.7 g/dL Normal 12.0-16.0 [facility] Comment on above: Performed By: #### Sherita ARAUJO #### [facility] [address] [place] [address] Lymphocytes (Bld) [#/Vol] 2.9 10*3/uL Normal 1.0-4.8 [facility] Comment on above: Performed By: #### Sherita ARAUJO #### [facility] [address] [place] [address] Lymphocytes/100 WBC (Bld) 44.8 % Normal [facility] Comment on above: Performed By: #### hSerita ARAUJO #### [facility] [address] [place] [address] MCH (RBC) [Entitic mass] 32.2 pg Critically high 27.0-31.3 [facility] Comment on above: Performed By: #### Sherita ARAUJO #### [facility] [address] [place] [address] MCHC 32.4 % Low 33.0-37.0 [facility] Comment on above: Performed By: #### Sherita ARAUJO #### [facility] [address] [place] [address] MCV (RBC) [Entitic vol] 99.3 fL Critically high 79.4-94 .8 [facility] Comment on above: Performed By: #### Sherita RODRIGUEZRN #### [facility] [address] [place] [address] Monocytes (Bld) [#/Vol] 0.7 10*3/uL Normal 0.2-0.8 [facility] Comment on above: Performed By: #### C XURN #### [facility] [address] [place] [address] Monocytes/100 WBC (Bld) 10.9 % Normal [facility] Comment on above: Performed By: #### C XURN #### [facility] [address] [place] [address] Neutrophils (Bld) [#/Vol] 2.2 10*3/uL Normal 1.4-6.5 [facility] Comment on above: Performed By: #### C XURN #### [facility] [address] [place] [address] Neutrophils/100 WBC (Bld) 33.9 % Normal [facility] Comment on above: Performed By: #### C XURN #### [facility] [address] [place] [address] Platelets (Bld) [#/Vol] 147 10*3/uL Normal 130-400 [facility] Comment on above: Performed By: #### C XURN #### [facility] [address] [place] [address] RBC (Bld) [#/Vol] 4.26 10*6/uL Normal 4.20-5.40 [facility] Comment on above: Performed By: #### C XURN #### [facility] [address] [place] [address] WBC (Bld) [#/Vol] 6.5 10*3/uL Normal 4.8-10.8 [facility] Comment on above: Performed By: #### C XURN #### [facility] [address] [place] [address] COVID-19on 03-15-2024 SARS-CoV-2 (COVID-19) RNA MARCY+probe Ql (Unsp spec) Not detected Normal Not Detect [facility] Comment on above: Result Comment: [...] authorized laboratories. Fact sheet for Healthcare Providers: https://www.fda.gov/media/372156/download Fact sheet for Patients: https://www.fda.gov/media/318688/download METHODOLOGY: Isothermal Nucleic Acid Amplification Performed By: #### C OVRG #### [facility] [address] [place] [address] CT CERVICAL SPINE WO CONTRAS Ton 10-21-2023 [...] Rene Cervantes MD 10/21/23 Final result Normal [facility] CT HEAD WO CONTRASTon 2023 [...] Michael Stafford MD 10/21/23 Final result Normal [facility] Comprehensive Metabolic Pane ridge 10-21-2023 Albumin [Mass/Vol] 3.5 g/dL Normal 3.5-4.6 [facility] Comment on above: Performed By: #### C MP #### [facility] [address] [place] [address] ALP [Catalytic activity/Vol] 102 U/L Normal 40-130 [facility] Comment on above: Performed By: #### C MP #### [facility] [address] [place] [address] ALT [Catalytic activity/Vol] 21 U/L Normal 0-33 [facility] Comment on above: Performed By: #### C MP #### [facility] [address] [place] [address] Anion gap [Moles/Vol] 8 mmol/L Low 9-15 [facility] ([place], [place] Comment on above: Performed By: #### C MP #### [facility] [address] [place] [address] AST [Catalytic activity/Vol] 40 U/L Critically high 0-35 [facility] Comment on above: Performed By: #### C MP #### [facility] [address] [place] [address] Bilirubin [Mass/Vol] 0.6 mg/dL Normal 0.2-0.7 [facility] Comment on above: Performed By: #### C MP #### [facility] [address] [place] [address] Calcium [Mass/Vol] 8.7 mg/dL Normal 8.5-9.9 [facility] Comment on above: Performed By: #### C MP #### [facility] [address] [place] [address] Chloride [Moles/Vol] 101 mmol/L Normal 95-107 [facility] Comment on above: Performed By: #### C MP #### [facility] [address] [place] [address] CO2 [Moles/Vol] 25 mmol/L Normal 20-31 [facility] Comment on above: Performed By: #### C MP #### [facility] [address] [place] [address] Creatinine [Mass/Vol] 0.64 mg/dL Normal 0.50-0.90 [facility] [place] Comment on above: Performed By: #### C MP #### [facility] [address] [place] [address] GFR >60.0 Normal >60 [facility] Comment on above: Result Comment: Kristiyunier atric calculator link https://www.kidney.org/professionals/kdoqi/gfr_calculatorped Effective May 10, [...] secretion. Performed By: #### C MP #### [facility] [address] [place] [address] Globulin (S) [Mass/Vol] 4.3 g/dL Critically high 2.3-3.5 [facility] Comment on above: Performed By: #### C MP #### [facility] [address] [place] [address] Glucose [Mass/Vol] 102 mg/dL Critically high 70-99 M [facility] Comment on above: Performed By: #### C MP #### [facility] [address] [place] [address] Potassium [Moles/Vol] 4.7 mmol/L Normal 3.4-4.9 [facility] [place] Comment on above: Performed By: #### C MP #### [facility] [address] [place] [address] Protein [Mass/Vol] 7.8 g/dL Normal 6.3-8.0 [facility] Comment on above: Performed By: #### C MP #### [facility] [address] [place] [address] Sodium [Moles/Vol] 134 mmol/L Low 135-144 [facility] Comment on above: Performed By: #### C MP #### [facility] [address] [place] [address] Urea nitrogen [Mass/Vol] 14 mg/dL Normal 8-23 [facility] Comment on above: Performed By: #### C MP #### [facility] [address] [place] [address] Culture, Urineon 10-21-2023 Culture, Urine ORDER#: [id number] ORDERED BY: AYANA KING SOURCE: Urine Clean Catch COLLECTED: 10/21/23 18:35 ANTIBIOTICS AT MAX.: RECEIVED : 10/21/23 18:35 Culture, Urine PRELIM 10/23/23 08:53 Performed at [address] [address] ([phone] Escherichia coli >100,000 CFU/ML Normal [facility] Comment on above: Performed By: #### C GAYLE #### [facility] [address] [place] [address] High Sensitivity Troponin To n 10-21-2023 High Sensitivity Troponin T 7 ng/L Normal 0-19 [facility] Comment on above: Result Comment: High Sensitivity Troponin values cannot be compared with other Troponin methodologies. Performed By: #### C GAYLE #### [facility] [address] [place] [address] Lipaseon 10-21-2023 Lipase [Catalytic activity/Vol] 51 U/L Normal 12-95 [facility] Comment on above: Performed By: #### C JESUSN #### [facility] [address] [place] [address] Magnesiumon 10-21-2023 Magnesium [Mass/Vol] 2.0 mg/dL Normal 1.7-2.4 [facility] Comment on above: Performed By: #### C JESUSN #### [facility] [address] [place] [address] TSH w/out Reflexon TSH w/out Reflex 0.794 uIU/mL Normal 0.440-3.86 [facility] Comment on above: Performed By: #### C GAYLE #### [facility] [address] [place] [address] Thyroxine Freeon 10-21-2023 Thyroxine Free 1.07 ng/dL Normal 0.84-1.68 [facility] Comment on above: Performed By: #### C XURN #### [facility] [address] [place] [address] Urinalysis, reflex to cultur adri 10-21-2023 Urine Reflexed to Culture Yes Normal [facility] Comment on above: Performed By: #### U AR #### [facility] [address] [place] [address] Bilirubin Ql (U) Negative Normal Negative [facility] Comment on above: Performed By: #### U AR #### [facility] [address] [place] [address] Clarity (U) Clear Normal Clear [facility] Comment on above: Performed By: #### U AR #### [facility] [address] [place] [address] Color (U) Yellow Normal Straw/Hettinger [facility] Comment on above: Performed By: #### U AR #### [facility] [address] [place] [address] Glucose Ql (U) Negative Normal Negative [facility] Comment on above: Performed By: #### U AR #### [facility] [address] [place] [address] Hemoglobin Ql (U) Negative Normal Negative [facility] Comment on above: Performed By: #### U AR #### [facility] [address] [place] [address] Ketones Ql (U) Negative Normal Negative [facility] Comment on above: Performed By: #### U AR #### [facility] [address] [place] [address] Leukocyte esterase Test strip Ql (U) SMALL Abnormal Negative [facility] Comment on above: Performed By: #### U AR #### [facility] [address] [place] [address] Nitrite Ql (U) Positive Abnormal Negative [facility] Comment on above: Performed By: #### U AR #### [facility] [address] [place] [address] pH (U) 7.5 [pH] Normal 5.0-9.0 [facility] Comment on above: Performed By: #### U AR #### [facility] [address] [place] [address] Protein Ql (U) Negative Normal Negative [facility] Comment on above: Performed By: #### U AR #### [facility] [address] [place] [address] Specific gravity (U) [Rel density] 1.010 Normal 1.005-1.03 [facility] Comment on above: Performed By: #### U AR #### [facility] [address] [place] [address] Urobilinogen Qn (U) 1.0 {[place]'U}/dL Normal < 2.0 [facility] Comment on above: Performed By: #### U AR #### [facility] [address] [place] [address] Urine Microscopicon 03-15-20 24 Urine Bacteria MANY Abnormal Negative [facility] Comment on above: Performed By: #### U AR #### [facility] [address] [place] [address] Urine Epithelial Cells Auto 0-2 Normal 0-5 [facility] Comment on above: Performed By: #### U AR #### [facility] [address] [place] [address] Urine Hyaline Casts Auto 0-1 Normal 0-5 [facility] Comment on above: Performed By: #### U AR #### [facility] [address] [place] [address] Urine RBC Auto 6-10 Abnormal 0-5 [facility] Comment on above: Performed By: #### U AR #### [facility] [address] [place] [address] Urine WBC Auto 20-50 Abnormal 0-5 [facility] Comment on above: Performed By: #### U AR #### [facility] [address] [place] [address] XR CHEST PORTABLEon 10-21-19 XR CHEST PORTABLE [...] Fahad Dozier MD 10/21/23 Final result Normal [facility] TSH 3rd Generationon 09-13-2 024 TSH 3rd Generation 1.550 mU/L Normal 0.270-4.20 [facility] Comment on above: Result Comment: REFE RENCE INTERVAL: TSH 3rd Generation Access complete set of age- and/or gender-specific reference intervals for this test in the [facility] ([employer]). Performed By: [facility] [address] [place] [address] Log Feeder: Rehan Harrell MD, PhD CLIA Number: [id number] CBC With Platelet No Differe ntialon 09-12-2023 Erythrocyte distribution width (RBC) [Ratio] 13.2 % Normal 11.5-14.5 [facility] Comment on above: Performed By: #### C BCND #### [facility] [address] [place] [address] Hematocrit (Bld) [Volume fraction] 39.1 % Normal 37.0-47.0 [facility] Comment on above: Performed By: #### C BCND #### [facility] [address] [place] [address] Hemoglobin (Bld) [Mass/Vol] 12.9 g/dL Normal 12.0-16.0 [facility] Comment on above: Performed By: #### C BCND #### [facility] [address] [place] [address] MCH (RBC) [Entitic mass] 32.0 pg Critically high 27.0-31.3 [facility] Comment on above: Performed By: #### C BCND #### [facility] [address] [place] [address] MCHC 33.0 % Normal 33.0-37.0 [facility] Comment on above: Performed By: #### C BCND #### [facility] [address] [place] [address] MCV (RBC) [Entitic vol] 97.0 fL Critically high 79.4-94 .8 [facility] Comment on above: Performed By: #### C BCND #### [facility] [address] [place] [address] Platelets (Bld) [#/Vol] 212 10*3/uL Normal 130-400 [facility] Comment on above: Performed By: #### C BCND #### [facility] [address] [place] [address] RBC (Bld) [#/Vol] 4.03 10*6/uL Low 4.20-5.40 [facility] Comment on above: Performed By: #### C BCND #### [facility] [address] [place] [address] WBC (Bld) [#/Vol] 5.1 10*3/uL Normal 4.8-10.8 [facility] Comment on above: Performed By: #### C BCND #### [facility] [address] [place] [address] Comprehensive Metabolic Pane ridge 09-12-2023 Albumin [Mass/Vol] 3.5 g/dL Normal 3.5-4.6 [facility] Comment on above: Performed By: #### C MP #### [facility] [address] [place] [address] ALP [Catalytic activity/Vol] 79 U/L Normal 40-130 [facility] Comment on above: Performed By: #### C MP #### [facility] [address] [place] [address] ALT [Catalytic activity/Vol] 23 U/L Normal 0-33 [facility] Comment on above: Performed By: #### C MP #### [facility] [address] [place] [address] Anion gap [Moles/Vol] 9 mmol/L Normal 9-15 [facility] ([place], [place]) Comment on above: Performed By: #### C MP #### [facility] [address] [place] [address] AST [Catalytic activity/Vol] 43 U/L Critically high 0-35 [facility] Comment on above: Performed By: #### C MP #### [facility] [address] [place] [address] Bilirubin [Mass/Vol] 0.8 mg/dL Critically high 0.2-0.7 [facility] Comment on above: Performed By: #### C MP #### [facility] [address] [place] [address] Calcium [Mass/Vol] 8.7 mg/dL Normal 8.5-9.9 [facility] Comment on above: Performed By: #### C MP #### [facility] [address] [place] [address] Chloride [Moles/Vol] 102 mmol/L Normal 95-107 [facility] Comment on above: Performed By: #### C MP #### [facility] [address] [place] [address] CO2 [Moles/Vol] 24 mmol/L Normal 20-31 [facility] Comment on above: Performed By: #### C MP #### [facility] [address] [place] [address] Creatinine [Mass/Vol] 0.68 mg/dL Normal 0.50-0.90 [facility] [place] Comment on above: Performed By: #### C MP #### [facility] [address] [place] [address] GFR >60.0 Normal >60 [facility] Comment on above: Result Comment: [...] secretion. Performed By: #### C MP #### [facility] [address] [place] [address] Globulin (S) [Mass/Vol] 4.1 g/dL Critically high 2.3-3.5 [facility] Comment on above: Performed By: #### C MP #### [facility] [address] [place] [address] Glucose [Mass/Vol] 100 mg/dL Critically high 70-99 [facility] Comment on above: Performed By: #### C MP #### [facility] [address] [place] [address] Potassium [Moles/Vol] 4.2 mmol/L Normal 3.4-4.9 [facility] [place] Comment on above: Performed By: #### C MP #### [facility] [address] [place] [address] Protein [Mass/Vol] 7.6 g/dL Normal 6.3-8.0 [facility] Comment on above: Performed By: #### C MP #### [facility] [address] [place] [address] Sodium [Moles/Vol] 135 mmol/L Normal 135-144 [facility] Comment on above: Performed By: #### C MP #### [facility] [address] [place] [address] Urea nitrogen [Mass/Vol] 13 mg/dL Normal 8-23 [facility] Comment on above: Performed By: #### C MP #### [facility] [address] [place] [address] Magnesiumon 09-12-2023 Magnesium [Mass/Vol] 1.9 mg/dL Normal 1.7-2.4 [facility] Comment on above: Performed By: #### M G #### [facility] [address] [place] [address] proBNPon 09-12-2023 Natriuretic peptide B (Bld) [Mass/Vol] 400 pg/mL Normal [facility] Comment on above: Result Comment: [...] 2006;27:330-337 Performed By: #### U YASMINE #### [facility] [address] [place] [address] Quantiferon-TB Plus (Client Incubated)on 09-02-2023 Gamma interferon background IA Qn (Bld) 0.00 International_Unit/mL Invalid Interpretation Code [facility] Comment on above: Performed By: #### 1 [id number], [id number], [id number], [id number], [id number] #### [facility] [address] [place] [address] M. tuberculosis stim IFN-g by CD4+ CD8+ T-cells Qn (Bld) 0.00 International_Unit/mL Invalid Interpretation Code [facility] Comment on above: Performed By: #### 1 [id number], [id number], 3073215, [id number], [id number] #### [facility] [address] [place] [address] M. tuberculosis stim IFN-g by CD4+ T-cells Qn (Bld) 0.02 International_Unit/mL Invalid Interpretation Code [facility] Comment on above: Performed By: #### 1 [id number], [id number], [id number], [id number], [id number] #### [facility] [address] [place] [address] M. tuberculosis stim IFN-g Ql (Bld) [Interp] Negative Invalid Interpretation Code Negative [facility] Comment on above: Result Comment: No [...] interferon gamma. Chemiluminescence immunoassay methodology Performed at: [facility] [id number] PhD Santos Villareal Performed By: #### 1 [id number], [id number], [id number], [id number], [id number] #### [facility] [address] [place] [address] Mitogen stimulated gamma interferon Qn (Bld) >10.00 Invalid Interpretation Code [facility] Comment on above: Performed By: #### 1 [id number], [id number], 7828654, 1091873, [id number] #### [facility] [address] [place] [address] Service comment (Unsp spec) [Interp] Comment Invalid Interpretation Code [facility] Comment on above: Result Comment: [place] [...] for the test. Performed By: #### 1 [id number], [id number], 6385870, [id number], [id number] #### [facility] [address] [place] [address] Discharge Instructionson Discharge Instructions [id number] Normal [facility] Inpatient Clinical Summaryon 08-31-2023 Inpatient Clinical Summary [address] [address] Clinical Summary Person Information: Name: CARIDAD GLOVER I Age: 83 Years : 1940 Sex: Female PCP: EDMOND PACHECO DO Marital Status: Phone: [phone] Race: White Ethnicity: Non- or Language: Tristanian Visit Id: Visit Reason: Altered mental status; AMS Speciality: Acuity: Enc Type: Observation Med Service: Medical Arrival: 08/27/2023 18:31:49 Discharge: Dispo Type: Admitted as IP to this [facility] Address: [address] [place] [id number] Provider Notes: Diagnosis: 1:Dementia; 2:History of CVA [...] With: Address: When: Austyn Campos MD, NEU [address] [address] Within 2 to 4 weeks Patient Education Information: Normal [facility] Inpatient Patient Summaryon 08-31-2023 Inpatient Patient [...] Pending Diagnostic Test Results None Pharmacy Information [facility] New Follow Up Appointments after Discharge Follow Up with Andres RODRIGUEZ, LEATHA Zaman When: Within 2 to 4 weeks Where: [facility] [address] [place] [address]- Medications What How Much When Instructions Next [...] Neurodermatitis Nocturia (more content not included)... Normal [facility] Inpatient Patient Summary [place] [id number] Patient Discharge Instructions PERSON INFORMATION Name: CARIDAD [...] Follow up: With: Address: When: Andres RODRIGUE[place] [address] [address] [address] Within 2 to 4 weeks [...] the morning) (more content not included)... Normal [facility] Interdisciplinary Note - Adalberto e Manageron 08-31-2023 Interdisciplinary Note - [employer] Underwriter CRM to room to discuss DC planning. Patient is awake and alert in room. Family is present. Patient is from [facility] She is unable to return at [place] and needs LTC in a memory unit. Patient PCP and insurance has been verified. Patient is an observation for AMS. Patient is assigned to DR Bhatti, see notes. Patient has Neurology on case. Patient has been referred to 1. [place] [facility] per family had accepted and hoping to DC 08/31/23. We have sent needed paperwork to them and are awaiting on final confirmation of acceptance. TB test was ordered. Patient was provided CRM contact, white board updated. CRM following. Patient can DC to [facility] today Family is transporting [facility] Comment on above: Result Comment: Elec tronically Signed By: Dianna Arthur\.br\Date and Time Signed: 08/31/23 14:51 EST Interdisciplinary Note - Soc ial Workeron 08-31-2023 Interdisciplinary Note - Mycologist This SW spoke to [place] at [facility] today and confirmed they have everything needed for patient to admit there today. She voiced that everything is good to go and asked that patient's RN call report to the Memory Care Nurse at the facility; this was relayed to staff. This SW will continue to await the results of patient's blood TB test and will send these over to [place] once they are available. At this time they were able to utilize the Chest X-ray but continue to want the results of the blood test for compliance with their state requirements. SW will remain available. [facility] Interdisciplinary Note - Adalberto e Manageron 08-30-2023 Interdisciplinary Note - [employer] Underwriter CRM to room to discuss DC planning. Patient is awake and alert in room. Family is present. Patient is from [facility]. She is unable to return at DC and needs LTC in a memory unit. Patient PCP and insurance has been verified. Patient is an observation for AMS. Patient is assigned to DR Bhatti, see notes. Patient has Neurology on case. Patient has been referred to 1. [facility] [facility] per family had accepted and hoping to DC 08/31/23. We did send needed paper work filled out by Physician to [facility] that they were requesting. TB test was ordered. Patient was provided CRM contact, white board updated. CRM following. [facility] Comment on above: Result Comment: Elec [...] Time: 35 Mins Plan: As above: waiting intermediate care facility placement Subjective The patient was [...] 4 mg= 1 tab(s), Oral, Bedtime Normal [facility] Comment on above: Result Comment: Elec tronically Signed By: Davy RODRIGUEZ, Alex\.br\Date and Time Signed: 08/30/23 09:39 EST Interdisciplinary Note - Adalberto e Manageron 08-29-2023 Interdisciplinary Note - [employer] Underwriter CRM to room to discuss DC planning. Patient is awake and alert in room. Patient is from [facility]. She is unable to return at DC and needs LTC in a memory unit. Patient daughter will be in today around 1300/1330. Patient PCP and insurance has been verified. Patient is an observation for AMS. Patient is assinged to DR Bhatti, see notes. Patient has Neurology on case. Patient has been referred to 1. [facility], 2. [facility] at the [facility], 3. [facility] and 4. [facility]. Patient was provided CRM contact, white board updated. CRM following. Will DC once placement found Normal [facility] Comment on above: Result Comment: Elec tronically Signed By: Dianna Arthur\.br\Date and Time Signed: 08/29/23 11:40 EST Interdisciplinary Note - Penelope n 08-29-2023 Interdisciplinary Note - OT OT [facility] six clicks score = no further OT needs. Patient requires close/dist sup w/ all adls and transfers d/t cues for safety/sequencing. This appears to be pt's baseline d/t dementia. Recommend 24 hr supervision for optimal safety and Ind w/ functional activities. DC inpatient OT services. Normal [facility] Progress Note-Physicianon Progress Note-Physician Basic Informatio [...] 4 mg= 1 tab(s), Oral, Bedtime Normal [facility] Comment on above: Result Comment: Elec tronically Signed By: Davy RODRIGUEZ, Alex\.br\Date and Time Signed: 08/29/23 13:34 EST BMPon 08-28-2023 Anion gap [Moles/Vol] 7 mmol/L Normal 6-16 [facility] Comment on above: Performed By: #### 1 [id number], [id number], 2993588, [id number], [id number] #### [facility] [address] [place] [address] BUN/Creat Ratio 22 No Units High 10-20 [facility] Comment on above: Performed By: #### 1 [id number], [id number], 7251166, [id number], [id number] #### [facility] [address] [place] [address] Calcium [Mass/Vol] 8.3 mg/dL Low 8.9-11.1 [facility] Comment on above: Performed By: #### 1 [id number], 7747098, 4085872, 3999584, [id number] #### [facility] [address] [place] [address] Chloride [Moles/Vol] 103 mmol/L Normal 101-111 [facility] Comment on above: Performed By: #### 1 [id number], 7044369, 5502165, 9030775, [id number] #### [facility] Laboratory [address] [place] [address] CO2 [Moles/Vol] 29 mmol/L Normal 21-31 [facility] Comment on above: Performed By: #### 1 9938737, 5419903, 5690821, 3851348, 51319180 #### [facility] [address] [place] [address] Creatinine [Mass/Vol] 0.6 mg/dL Normal 0.5-1.3 [facility] Comment on above: Performed By: #### 1 7629887, 1473275, 4779895, 2469184, 57090255 #### [facility] [address] [place] [address] Glucose [Mass/Vol] 90 mg/dL Normal 55-199 [facility] Comment on above: Performed By: #### 1 6264397, 4226085, 5043940, 4129411, 64775695 #### [facility] [address] [place] [address] Potassium [Moles/Vol] 4.0 mmol/L Normal 3.5-5.3 [facility] Comment on above: Performed By: #### 1 1112117, 0885832, 5456084, 5539383, 04954528 #### [facility] [address] [place] [address] Sodium [Moles/Vol] 135 mmol/L Normal 135-145 [facility] Comment on above: Performed By: #### 1 5729491, 1070826, 4557127, 4113901, 35314201 #### [facility] [address] [place] [address] Urea nitrogen [Mass/Vol] 13 mg/dL Normal 5-21 [facility] Comment on above: Performed By: #### 1 8966211, 6748568, 6511755, 3370813, 16875855 #### [facility] [address] [place] [address] CBC w/ Auto Diffon 4 Basophil Absolute 0.1 E9/L Normal 0.0-0.2 [facility] Comment on above: Performed By: #### 1 8179697, 7926074, 2148644, 4107604, 05107937 #### [facility] [address] [place] [address] Basophils/100 WBC (Bld) 1.0 % Normal 0.0-2.0 [facility] Comment on above: Performed By: #### 1 9010229, 1857430, 5769724, 9148843, 52072996 #### [facility] [address] [place] [address] Eos Absolute 0.4 E9/L Normal 0.0-0.5 [facility] Comment on above: Performed By: #### 1 3159308, 9359933, 9747422, 4288106, 36303877 #### [facility] [address] [place] [address] Eosinophils/100 WBC (Bld) 7.8 % Normal 0.0-8.0 [facility] Comment on above: Performed By: #### 1 8415692, 0637852, 5710198, 4080247, 44635767 #### [facility] [address] [place] [address] Erythrocyte distribution width (RBC) [Ratio] 13.5 % Normal 10.9-14.2 [facility] Comment on above: Performed By: #### 1 7503570, 5189222, 4005244, 1775420, 15299900 #### [facility] [address] [place] [address] Hematocrit (Bld) [Volume fraction] 36.0 % Normal 34.0-46.0 [facility] Comment on above: Performed By: #### 1 7404844, 8244450, 2554743, 4847044, 70300469 #### [facility] [address] [place] [address] Hemoglobin (Bld) [Mass/Vol] 11.7 g/dL Low 12.0-16.0 [facility] Comment on above: Performed By: #### 1 6739998, 9839194, 0888572, 3601390, 94197237 #### [facility] [address] [place] [address] Lymph Absolute 2.4 E9/L Normal 1.0-4.0 [facility] Comment on above: Performed By: #### 1 3429576, 3693767, 8094857, 3574776, 78212254 #### [facility] [address] [place] [address] Lymphocytes/100 WBC (Bld) 46.5 % Normal 14.0-50.0 [facility] Comment on above: Performed By: #### 1 1209719, 0540660, 1742803, 1298936, 28461191 #### [facility] [address] [place] [address] MCH (RBC) [Entitic mass] 32.0 pg Normal 27.0-34.0 [facility] Comment on above: Performed By: #### 1 8456436, 3051920, 2205902, 3634476, 26089265 #### [facility] [address] [place] [address] MCHC (RBC) [Mass/Vol] 32.5 g/dL Normal 31.4-36.0 [facility] Comment on above: Performed By: #### 1 2408027, 7369648, 0404235, 2778596, 26007505 #### [facility] [address] [place] [address] MCV (RBC) [Entitic vol] 98.5 fL Normal 80.0-100.0 [facility] Comment on above: Performed By: #### 1 4140595, 7922038, 6394961, 9979686, 28184464 #### [facility] [address] [place] [address] [place] Absolute 0.6 E9/L Normal 0.2-1.0 [facility] Comment on above: Performed By: #### 1 0624757, 5214074, 9490720, 0448994, 37339594 #### [facility] [address] [place] [address] Monocytes/100 WBC (Bld) 10.5 % Normal 4.0-14.0 [facility] Comment on above: Performed By: #### 1 8759234, 1776333, 0516474, 0542141, 69208940 #### [facility] [address] [place] [address] Neutro Absolute 1.8 E9/L Low 2.0-7.5 [facility] Comment on above: Performed By: #### 1 7652463, 6015202, 2771051, 8237135, 40683798 #### [facility] [address] [place] [address] Neutro Auto 34.2 % Low 36.0-75.0 [facility] Comment on above: Performed By: #### 1 2113746, 2762139, 9418885, 8752683, 59201493 #### [facility] [address] [place] [address] Platelet 164.0 E9/L Normal 150.0-500.0 [facility] Comment on above: Performed By: #### 1 8302512, 1983533, 6005772, 9855233, 97401294 #### [facility] [address] [place] [address] Platelet mean volume (Bld) [Entitic vol] 7.6 fL Normal 6.4-10.8 [facility] Comment on above: Performed By: #### 1 6861196, 1005652, 5797417, 1499313, 65313261 #### [facility] [address] [place] [address] RBC 3.7 E12/L Low 4.3-5.9 [facility] Comment on above: Performed By: #### 1 9851219, 1557711, 8044883, 0221014, 98304443 #### [facility] [address] [place] [address] WBC 5.3 E9/L Normal 4.0-11.0 [facility] Comment on above: Performed By: #### 1 1091050, 8227933, 7060438, 3598101, 44936621 #### [facility] [address] [place] [address] Interdisciplinary Note - Adalberto e Manageron 08-28-2023 Interdisciplinary Note - [employer] Underwriter CRM spoke with patients daughter Linh on the phone as patient has dementia and confused. Patient was previous rounded on by Dr Rodriguez today. No family in room. Patient is Whiteboard updated and CRM contact # provided. Patients daughter verified PCP, insurance and DME. Per daughter patient has been at [facility] and cannot return there as she is a flight risk. Daughter states she needs help to find a memory unit facility for her mother. She has called [facility] and they may come eval tomorrow for placement. She also had called [facility] and no beds. discussed [facility] as a choice and [facility] in [place] as her suggestions. Discussed [facility] as well. she is agreeable to send referrals to all places. She states she works 2 jobs to pay for care for her mother and mother has $40,000 in bank and a home to be sold to pay for care. She dis verify insurance, PCP and DME. She will transport at [facility] to room and patient only oriented o self. Will wait responses from facilities. Normal [facility] Comment on above: Result Comment: Elec [...] dizziness UA negative Seroquel at night Ordered: [facility] Care/Day Moderate 35 Minutes [id number] 2. History of CVA in adulthood (Z86.73: [...] of name and that she lives in [facility]: cooperative, affect appropriate for age, pleasant [...] 04:55:00) Lymph Auto: 46.5 % (08/28/23 04:55:00) [place]co Auto: 10.5 % (08/28/23 04:55:00) Eos Auto: 7.8 % (08/28/23 04:55:00) Basophil Auto: 1 % (08/28/23 04:55:00) Neutro Absolute: 1.8 E9/L Low (08/28/23 04:55:00) Lymph Absolute: 2.4 E9/L (08/28/23 04:55:00) [place] Absolute: 0.6 E9/L (08/28/23 04:55:00) Eos Absolute: [...] A/G R (more content not included)... Normal [facility] Comment on above: Result Comment: Elec tronically Signed By: Barrie Rodriguez DO\.br\Date and Time Signed: 08/28/23 09:52 EST Sed Rate Automatedon 024 ESR (Bld) [Velocity] 45 mm/h High 0-34 [facility] Comment on above: Performed By: #### 1 5405847, 2556257, 7635398, 8224875, 82918709 #### [facility] [address] [place] [address] Troponin 6 Hr.on 08-28-2023 Troponin 14.20 pg/mL Normal 10.10-27.10 [facility] Comment on above: Result Comment: The 95% CI (Confidence Interval) PPV (Positive Predictive Value) for myocardial infarction in females is 38 pg/mL, in males 51 pg/mL. The results should be used in conjunction with clinical conditions of myocardial infarction. (Access High Sensitivity Troponin I Instructions For Use, [employer], March 2018) Performed By: #### 1 [id number] #### [facility] [address] [place] [address] Troponin 9 Hr.on 08-28-2023 Troponin 11.60 pg/mL Normal 10.10-27.10 [facility] Comment on above: Result Comment: The 95% CI (Confidence Interval) PPV (Positive Predictive Value) for myocardial infarction in females is 38 pg/mL, in males 51 pg/mL. The results should be used in conjunction with clinical conditions of myocardial infarction. (Access High Sensitivity Troponin I Instructions For Use, [employer], March 2018) Performed By: #### 1 8044860, 5371213, 1923965, 2718409, 51437218 #### [facility] [address] [place] [address] XR Chest Single Viewon 08-28 XR Chest [...] Rausch FINAL REPORT Dictated: 08/28/2023 11:38 am Alejandro Juaquin RODRIGUEZ Signed (Electronic Signature): 08/28/2023 11:38 am Signed by: Juaquin Allen MD Transcribed by: SID Technologist: RODNEY Technical Comments Radiation Dose: Ka,r in mGy = n/a DAP = n/a Normal [facility] eGFRon 08-28-2023 eGFR 90 mL/min/1.73 m2 Normal >=59 [facility] Comment on above: Order Comment: Order Added by Discern Expert. Performed By: #### 1 2843670, 9286816, 0856519, 6117573, 27072008 #### [facility] [address] [place] [address] BMPon 08-27-2023 Anion gap [Moles/Vol] 8 mmol/L Normal 6-16 [facility] Comment on above: Performed By: #### 1 9020743, 5765280, 8922817, 5891516, 85195852 #### [facility] [address] [facility] [place] [address] BUN/Creat Ratio 16 No Units Normal 10-20 [facility] Comment on above: Performed By: #### 1 4005399, 2144697, 7734763, 0177071, 92511907 #### [facility] [address] [place] [address] Calcium [Mass/Vol] 8.6 mg/dL Low 8.9-11.1 [facility] Comment on above: Performed By: #### 1 3109409, 3069886, 3066776, 4142102, 83169053 #### [facility] [address] [place] [address] Chloride [Moles/Vol] 102 mmol/L Normal 101-111 [facility] Comment on above: Performed By: #### 1 5258770, 9953835, 6694196, 6438695, 49515379 #### [facility] [address] [place] [address] CO2 [Moles/Vol] 29 mmol/L Normal 21-31 [facility] Comment on above: Performed By: #### 1 4642106, 8256132, 9592870, 8797828, 08714821 #### [facility] [address] [place] [address] Creatinine [Mass/Vol] 0.8 mg/dL Normal 0.5-1.3 [facility] Comment on above: Performed By: #### 1 6084147, 7331760, 0376279, 7731889, 79676564 #### [facility] [address] [place] [address] Glucose [Mass/Vol] 89 mg/dL Normal 55-199 [facility] Comment on above: Performed By: #### 1 1281444, 0805402, 6279676, 1022949, 99448028 #### [facility] [address] [place] [address] Potassium [Moles/Vol] 3.9 mmol/L Normal 3.5-5.3 [facility] Comment on above: Performed By: #### 1 0778409, 2761323, 9074787, 0066417, 97895639 #### [facility] [address] [place] [address] Sodium [Moles/Vol] 135 mmol/L Normal 135-145 [facility] Comment on above: Performed By: #### 1 1996407, 8948299, 9160700, 8077589, 43961158 #### [facility] [address] [place] [address] Urea nitrogen [Mass/Vol] 13 mg/dL Normal 5-21 [facility] Comment on above: Performed By: #### 1 3574305, 7737123, 8806745, 9179641, 64803215 #### [facility] [address] [place] [address] CBC w/ Auto Diffon 4 Basophil Absolute 0.1 E9/L Normal 0.0-0.2 [facility] Comment on above: Performed By: #### 1 0085254, 8540629, 8222264, 1728005, 57491765 #### [facility] [address] [place] [address] Basophils/100 WBC (Bld) 1.0 % Normal 0.0-2.0 [facility] Comment on above: Performed By: #### 1 1303661, 7444973, 7355631, 7262574, 40505239 #### [facility] [address] [place] [address] Eos Absolute 0.3 E9/L Normal 0.0-0.5 [facility] Comment on above: Performed By: #### 1 4565781, 5935835, 0390460, 2013227, 87161980 #### [facility] [address] [place] [address] Eosinophils/100 WBC (Bld) 5.2 % Normal 0.0-8.0 [facility] Comment on above: Performed By: #### 1 0345924, 8667656, 5398423, 1846688, 72375663 #### [facility] [address] [place] [address] Erythrocyte distribution width (RBC) [Ratio] 13.7 % Normal 10.9-14.2 [facility] Comment on above: Performed By: #### 1 4958987, 7371792, 8225994, 3177529, 16542302 #### [facility] [address] [place] [address] Hematocrit (Bld) [Volume fraction] 38.0 % Normal 34.0-46.0 [facility] Comment on above: Performed By: #### 1 5181202, 2255042, 5782050, 4408666, 85935473 #### [facility] [address] [place] [address] Hemoglobin (Bld) [Mass/Vol] 12.6 g/dL Normal 12.0-16.0 [facility] Comment on above: Performed By: #### 1 3642439, 3269496, 4274427, 7544054, 93011172 #### [facility] [address] [place] [address] Lymph Absolute 2.8 E9/L Normal 1.0-4.0 [facility] Comment on above: Performed By: #### 1 5450676, 8578223, 0829558, 0484383, 85587962 #### [facility] [address] [place] [address] Lymphocytes/100 WBC (Bld) 45.7 % Normal 14.0-50.0 [facility] Comment on above: Performed By: #### 1 7301492, 8289037, 3955110, 5716863, 54130984 #### [facility] [address] [place] [address] MCH (RBC) [Entitic mass] 33.0 pg Normal 27.0-34.0 [facility] Comment on above: Performed By: #### 1 3248061, 4871383, 1719516, 3616077, 96075801 #### [facility] [address] [place] [address] MCHC (RBC) [Mass/Vol] 33.5 g/dL Normal 31.4-36.0 [facility] Comment on above: Performed By: #### 1 2331276, 3670710, 1183588, 6411956, 12556255 #### [facility] [address] [place] [address] MCV (RBC) [Entitic vol] 98.4 fL Normal 80.0-100.0 [facility] Comment on above: Performed By: #### 1 3428612, 5392925, 8954163, 0582071, 18899363 #### [facility] [address] [place] [address] [place] Absolute 0.6 E9/L Normal 0.2-1.0 [facility] Comment on above: Performed By: #### 1 2524213, 6065048, 4699243, 4489189, 55028258 #### [facility] [address] [place] [address] Monocytes/100 WBC (Bld) 10.5 % Normal 4.0-14.0 [facility] Comment on above: Performed By: #### 1 9940750, 6123126, 3020439, 8947481, 87871226 #### [facility] [address] [place] [address] Neutro Absolute 2.3 E9/L Normal 2.0-7.5 [facility] Comment on above: Performed By: #### 1 3563075, 7095129, 0175300, 3465473, 19797677 #### [facility] [address] [place] [address] Neutro Auto 37.6 % Normal 36.0-75.0 [facility] Comment on above: Performed By: #### 1 2825357, 5458346, 0339758, 8524536, 87303410 #### [facility] [address] [place] [address] Platelet 176.0 E9/L Normal 150.0-500.0 [facility] Comment on above: Performed By: #### 1 3195207, 5958971, 3079505, 2615088, 49688293 #### [facility] [address] [place] [address] Platelet mean volume (Bld) [Entitic vol] 7.6 fL Normal 6.4-10.8 [facility] Comment on above: Performed By: #### 1 6988155, 3396908, 6173560, 3178592, 44211950 #### [facility] [address] [place] [address] RBC 3.8 E12/L Low 4.3-5.9 [facility] Comment on above: Performed By: #### 1 5577967, 1579289, 9302721, 0571365, 86633208 #### [facility] [address] [place] [address] WBC 6.1 E9/L Normal 4.0-11.0 [facility] Comment on above: Performed By: #### 1 0548255, 0098167, 4343250, 0476517, 51463718 #### [facility] [address] [place] [address] Consent for Treatmenton 08-09 Consent for Treatment [id number] 0TIFF Normal [facility] ED Clinical Summaryon 2023 ED Clinical Summary [address] [address] ED Clinical Summary Person Information Name: CARIDAD [place] Age: 83 Years : 1940 Sex: Female Language: Tristanian PCP: EDMOND PACHECO DO Marital Status: Phone: [phone] Visit Id: Visit Reason: Altered mental status; AMS Speciality: Acuity: 3 Enc Type: Observation Med Service: Emergency Arrival: 08/27/2023 18:31:49 Discharge: LOS: 000 03:43 Checkin: 08/27/2023 18:31:49 Checkout: 08/27/2023 22:14:01 Dispo Type: Admitted as IP to this [facility] EVENTS: Event Name Event Status Request Date/Time [...] 21:46:02 Patient Care Request 08/27/2023 21:46:02 ADDRESS: [id number] [place] [id number] PHYS DOC NOTES: MEDICAL INFORMATION: Prescriptions Given: [...] Follow up: DIAGNOSIS: Altered mental status Normal [facility] ED Note-Nursingon 08-27-2023 ED Note-Nursing Pt's BP in 200's systolic. Physician aware. will continue to monitor. no new meds ordered at this time. Normal [facility] ED Note-Physicianon 08-27-19 ED Note-Physician Basic Information Time Seen: Vicente Rausch DO 08/27/2023 18:53 Chief Complaint dtr. brought pt. from [facility] d/t AMS x 1 week. hx dementia. [...] and Complexity of Problems Differential Diagnosis: [] [facility] Data External documents reviewed: [] My [...] 81 mg= (more content not included)... Normal [facility] Comment on above: Result Comment: Elec tronically Signed By: Vicente Rausch DO\.br\Date and Time Signed: 08/27/23 21:18 EST ED Patient Education Noteon 08-27-2023 ED Patient Education Note Normal [facility] ED Patient Summaryon 024 ED Patient Summary [address] [address] Patient Discharge Instructions Person Information Name: CARIDAD GLOVER I Age: 83 Years Arrival Date: 08/27/2023 18:31:49 Discharge Diagnosis: Altered mental status Primary Care Physician: EDMOND PACHECO DO Provider Information Primary Provider: Vicente Rausch DO Advanced Cardiology Teacher:None The exam and treatment you received in the Emergency Department were for an urgent problem and are not intended as complete care. It is important that you follow up with a doctor, nurse practitioner, or physician?s children's nursery assistant for ongoing care. If your symptoms [...] opioids can be used to help relieve ecqntzvm-ym-aarosx pain and are often prescribed following a [...] be struggling with addiction, tell your health career center advisor and ask for guidance or call SAM[employer]?S National Helpline at 1-473-558-HELP. v Source: [place] Department of Health and Human Services/Center for Disease Control & Prevention [facility] Medications Given: Medication Dose Route busPIR (more content not included)... Normal [facility] Hep Func Panelon 08-27-2023 Albumin [Mass/Vol] 3.2 g/dL Low 3.3-5.0 [facility] Comment on above: Performed By: #### 1 7630991, 7249770, 8685472, 7833175, 17134211 #### [facility] [address] [place] [address] Albumin/Globulin [Mass ratio] 0.8 {ratio} Low 1.1-2.2 [facility] Comment on above: Performed By: #### 1 9270006, 9012258, 3047335, 1218505, 06377664 #### [facility] [address] [place] [address] Alk Phos 86 Int._Unit/L Normal 21-98 [facility] Comment on above: Performed By: #### 1 2783032, 3417322, 0331855, 8978085, 96119087 #### [facility] [address] [place] [address] ALT 26 Int._Unit/L Normal 6-46 [facility] Comment on above: Performed By: #### 1 9732847, 2385262, 7816016, 5614794, 41940821 #### [facility] [address] [place] [address] AST 41 Int._Unit/L Normal 5-43 [facility] Comment on above: Performed By: #### 1 9577543, 4783074, 1337233, 0242693, 47583230 #### [facility] [address] [place] [address] Bili Direct 0.2 mg/dL Normal 0.0-0.4 [facility] Comment on above: Performed By: #### 1 4368222, 1503957, 3132521, 0581311, 43765591 #### [facility] [address] [place] [address] Bili Indirect 0.5 mg/dL Normal 0.1-0.9 [facility] Comment on above: Performed By: #### 1 5236280, 3373186, 1836583, 9536453, 61488297 #### [facility] [address] [place] [address] Bili Total 0.7 mg/dL Normal 0.0-1.1 [facility] Comment on above: Performed By: #### 1 0347476, 7597738, 9673261, 1745046, 77594540 #### [facility] [address] [place] [address] Globulin (S) [Mass/Vol] 4.1 g/dL High 1.4-4.0 [facility] Comment on above: Performed By: #### 1 5168896, 7451152, 2814715, 8614370, 05254886 #### [facility] [address] [place] [address] Protein [Mass/Vol] 7.3 g/dL Normal 6.0-7.8 [facility] Comment on above: Performed By: #### 1 3812608, 4450922, 8758550, 5912510, 83234877 #### [facility] [address] [place] [address] Monitor Recordon 08-27-2023 Monitor Record [id number]. [id number] Normal [facility] PT & PTTon 08-27-2023 aPTT Coag (PPP) [Time] 33.1 second(s) Normal 25.1-36.5 [facility] Comment on above: Result Comment: Para meter 15 days - 4 weeks 1 - 5 months 6 - 11 months 1 - 5 years 6 - 10 years 11 - 17 years PTT Mean: 35.4 (27.6-45.6) Mean: 33.5 (24.8-40.7) Mean: 32.4 (25.1-40.7) Mean: 31.6 (24.0-39.2) Mean: 31.6 (26.9-38.7) Mean: 31.0 (24.6-38.4) Pediatric Reference ranges were obtained from a study by kishor Clayton. prepared from 1437 samples obtained at 7 different centers using the same coagulation reagent and instrumentation as [facility]. Currently there are no coagulation studies available worldwide for children to 14 days, and no normal ranges. Heparin therapeutic range (represented by Anti-Factor Xa activity of 0.2 - 0.4 U/mL) corresponds to PTT of 56.6 - 109.0 sec. Performed By: #### 1 1377565, 1628187, 4715830, 5667343, 86190448 #### [facility] [address] [place] [address] INR Coag (PPP) [Relative time] 1.1 {INR} Invalid Interpretation Code [facility] Comment on above: Result Comment: INR results are specifically intended to assess patients stabilized on long-term Anticoagulation therapy suggested INR?s ?Less Intensive Anticoagulation? 2.0 ? 3.0 Conventional Range 3.0 ? 4.5 Performed By: #### 1 0486362, 7847305, 6524005, 5212042, 82021941 #### [facility] [address] [place] [address] PT Coag (PPP) [Time] 12.0 second(s) Normal 9.4-12.5 [facility] Comment on above: Result Comment: 15 [...] ranges were obtained from a study by kishor Clayton. prepared from 1437 samples obtained at 7 different centers using the same coagulation reagent and instrumentation as [facility] Currently there are no coagulation studies available worldwide for children to 14 days, and no normal ranges. Performed By: #### 1 [id number], 0608127, 6584604, 2485630, [id number] #### [facility] [address] [place] [address] TSH With T4fr Reflexon 08-27 TSH Qn 1.53 m[IU]/L Normal 0.34-5.60 [facility] Comment on above: Performed By: #### 1 6918704, 2890963, 8420380, 8434202, 41612222 #### [facility] [address] [place] [address] Troponin 0 Hr.on 08-27-2023 Troponin 13.60 pg/mL Normal 10.10-27.10 [facility] Comment on above: Result Comment: The 95% CI (Confidence Interval) PPV (Positive Predictive Value) for myocardial infarction in females is 38 pg/mL, in males 51 pg/mL. The results should be used in conjunction with clinical conditions of myocardial infarction. (Access High Sensitivity Troponin I Instructions For Use, [employer], March 2018) Performed By: #### 1 2729435, 9975992, 1177141, 4927171, 36724652 #### [facility] [address] [place] [address] Troponin 3 Hr.on 08-27-2023 Troponin 15.40 pg/mL Normal 10.10-27.10 [facility] Comment on above: Result Comment: The 95% CI (Confidence Interval) PPV (Positive Predictive Value) for myocardial infarction in females is 38 pg/mL, in males 51 pg/mL. The results should be used in conjunction with clinical conditions of myocardial infarction. (Access High Sensitivity Troponin I Instructions For Use, [employer], March 2018) Performed By: #### 1 [id number], 2498429, 3929083, 6251535, [id number] #### [facility] [address] [place] [address] UA With Cult Reflexon 2023 Bilirubin Ql (U) Negative Normal Negative [facility] Comment on above: Performed By: #### 1 7665198, 7624083, 2216152, 6670938, 65968316 #### [facility] [address] [place] [address] Clarity (U) CLEAR Normal Clear [facility] Comment on above: Performed By: #### 1 6112353, 7990318, 6800666, 9107856, 84286149 #### [facility] [address] [place] [address] Color (U) YELLOW Normal Yellow [facility] Comment on above: Performed By: #### 1 1918548, 4164241, 6395446, 4873236, 79808823 #### [facility] [address] [place] [address] Epithelial cells.squamous LM.HPF (Urine sed) [#/Area] 0-2 Normal 0-2 [facility] Comment on above: Performed By: #### 1 7750131, 2389951, 8914002, 8505498, 87066967 #### [facility] [address] [place] [address] Glucose Test strip (U) [Mass/Vol] Negative Normal Negative [facility] Comment on above: Performed By: #### 1 5782352, 3525209, 1653973, 2706017, 01510560 #### [facility] [address] [place] [address] Hemoglobin Ql (U) Negative Normal Negative [facility] Comment on above: Performed By: #### 1 9286483, 7142787, 7006361, 9925334, 58716668 #### [facility] [address] [place] [address] Ketones (U) [Mass/Vol] Negative Normal Negative [facility] Comment on above: Performed By: #### 1 4040730, 1893726, 2595079, 5285745, 22701520 #### [facility] [address] [place] [address] [place].plasma/[place]. RBC (Bld) [Mass ratio] 0-3 Normal 0-3 [facility] Comment on above: Performed By: #### 1 0138112, 8842105, 6619124, 7971774, 32839741 #### [facility] [address] [place] [address] Nitrite Ql (U) Negative Normal Negative [facility] Comment on above: Performed By: #### 1 9691703, 2124751, 2943436, 2642149, 63891391 #### [facility] [address] [place] [address] pH (U) 6.5 [pH] Invalid Interpretation Code 5.0-9.0 [facility] Comment on above: Performed By: #### 1 5689103, 6275436, 5490622, 3306441, 70828927 #### [facility] [address] [place] [address] Protein (U) [Mass/Vol] Negative Normal Negative [facility] Comment on above: Performed By: #### 1 1560844, 4295176, 7634827, 3167856, 20679518 #### [facility] [address] [place] [address] Specific gravity (U) [Rel density] 1.010 Invalid Interpretation Code 1.005-1.030 [facility] Comment on above: Performed By: #### 1 1115824, 1828361, 7838761, 2261526, 72096264 #### [facility] [address] [place] [address] Type of Urine collection method Clean Catch Normal [facility] Comment on above: Performed By: #### 1 7878279, 1639306, 9869051, 3244856, 19851374 #### [facility] [address] [place] [address] Urobilinogen Qn (U) 0.2 {[place]'U}/dL Normal 0.0-1.0 [facility] Comment on above: Performed By: #### 1 2732732, 2204479, 9442587, 8974512, 80863056 #### [facility] [address] [place] [address] WBC Auto Ql (U) Negative Normal Negative [facility] Comment on above: Performed By: #### 1 6849401, 8634952, 0577069, 6731304, 69602924 #### [facility] [address] [place] [address] WBC LM.HPF (Urine sed) [#/Area] 0-5 Normal 0-5 [facility] Comment on above: Performed By: #### 1 0960924, 5054751, 4113459, 0716021, 51161599 #### [facility] [address] [place] [address] eGFRon 08-27-2023 eGFR 74 mL/min/1.73 m2 Normal >=59 [facility] Comment on above: Order Comment: Order added by Discern Expert. Performed By: #### 1 2893651, 1792962, 3220287, 3862788, 02228492 #### [facility] [address] [place] [address] Group Home Recordson 07-26 [facility] [id number]. 00TIFF Normal [facility] Family Medicine Office/Clini c Noteon 07-21-2023 Family Medicine Office/Clinic Note History of Present Illness TCU DISCHARGE [place] [facility] [place] 1 day history AMS and dementia. MRI [...] therapy stay. Plan to discharge 07/22/20[address] [facility]. PMHx- dementia, OA, anxiety depression, DM (?) no meds, A1c 5.3, NAWAF untreated,psoriatic arthritis on Remicade. Nonsustained VT on Holter Dec, 2021, nl lexiscan. Hx alcohol abuse. nonsmoker. Hx lumbr surgeries, toe surgeries PCP Dr. Edmond Pacheco Psychiatry Dr. Faustin Neurologist LAUREN Rheumatology Dr. Taylor Dtr Linh Riley, MINE EXPERT Physical Exam GENERAL - 82 yo WF sitting in recliner doing exercises with PT LUNGS - CTA CARDIAC - RRR, No murmur ABD - BSP, NT EXT - No edema noted MUSCULOSKELETAL - strength strong for age with push/pull, hand mallet cutter strong PSYCHIATRIC - A+O x3, able to [...] Recorded p (more content not included)... Normal [facility] Comment on above: Result Comment: Elec tronically Signed By: Cyndi HOBSON, Chaparro Vann.anusha\Date and Time Signed: 07/21/23 10:03 EST UA With Cult Reflexon 2022 Bacteria LM Ql (Urine sed) TRACE Normal Trace [facility] Comment on above: Performed By: #### 1 6916099, 9387546, 9777767, 5810385, 38645971 #### [facility] [address] [place] [address] Bilirubin Ql (U) Negative Normal Negative [facility] Comment on above: Performed By: #### 1 3221830, 7195987, 1586888, 4207212, 64318291 #### [facility] [address] [place] [address] Clarity (U) CLEAR Normal Clear [facility] Comment on above: Performed By: #### 1 1586993, 1793161, 9213880, 2087714, 35534236 #### [facility] [address] [place] [address] Color (U) YELLOW Normal Yellow [facility] Comment on above: Performed By: #### 1 2316218, 6840022, 0832366, 5137764, 31074265 #### [facility] [address] [place] [address] Epithelial cells.squamous LM.HPF (Urine sed) [#/Area] 0-2 Normal 0-2 [facility] Comment on above: Performed By: #### 1 1647492, 6537292, 1023764, 4069319, 48237107 #### [facility] [address] [place] [address] Glucose Test strip (U) [Mass/Vol] Negative Normal Negative [facility] Comment on above: Performed By: #### 1 4582934, 8389078, 8247672, 0154344, 59093325 #### [facility] [address] [place] [address] Hemoglobin Ql (U) Negative Normal Negative [facility] Comment on above: Performed By: #### 1 7495859, 8514723, 7297009, 5959230, 66992483 #### [facility] [address] [place] [address] Ketones (U) [Mass/Vol] Negative Normal Negative [facility] Comment on above: Performed By: #### 1 4023837, 5081340, 8624147, 0339043, 65924852 #### [facility] [address] [place] [address] [place].plasma/[place]. RBC (Bld) [Mass ratio] 0-3 Normal 0-3 [facility] Comment on above: Performed By: #### 1 4153629, 0775286, 6315744, 9942844, 75089189 #### [facility] [address] [place] [address] Nitrite Ql (U) Negative Normal Negative [facility] Comment on above: Performed By: #### 1 6851707, 6331065, 6269004, 3527570, 73131191 #### [facility] [address] [place] [address] pH (U) 6.0 [pH] Invalid Interpretation Code 5.0-9.0 [facility] Comment on above: Performed By: #### 1 3335329, 9989353, 4772877, 7770289, 53728367 #### [facility] [address] [place] [address] Protein (U) [Mass/Vol] Negative Normal Negative [facility] Comment on above: Performed By: #### 1 3653490, 8316573, 7045472, 4556349, 18730368 #### [facility] [address] [place] [address] Specific gravity (U) [Rel density] 1.020 Invalid Interpretation Code 1.005-1.030 [facility] Comment on above: Performed By: #### 1 6605583, 9359800, 3125632, 3821517, 25602072 #### [facility] [address] [place] [address] Type of Urine collection method Clean Catch Normal [facility] Comment on above: Performed By: #### 1 3607508, 8079069, 8703258, 6455494, 17576360 #### [facility] [address] [place] [address] Urobilinogen Qn (U) 0.2 {[place]'U}/dL Normal 0.0-1.0 [facility] Comment on above: Performed By: #### 1 8331064, 3652241, 1557239, 4268186, 46051074 #### [facility] [address] [place] [address] WBC Auto Ql (U) Negative Normal Negative [facility] Comment on above: Performed By: #### 1 5445384, 3408693, 4351713, 1624048, 33944096 #### [facility] [address] [place] [address]26[address] WBC LM.HPF (Urine sed) [#/Area] 0-5 Normal 0-5 [facility] Comment on above: Performed By: #### 1 0434917, 9225132, 2662511, 0108906, 31069572 #### [facility] [address] [place] [address] URINALYSISOrdered By: Lizet Saab on 07-19-2023 Bacteria [...] AM) Normal Negative [facility] UA Auto SS [place].plasma/[place]. RBC (Bld) [Mass ratio] 0-3 /HPF Normal 0-3/HPF [facility] [place]A A uto SS Nitrite Ql (U) Negative (07/19/23 8:33 AM) Normal Negative [facility] UA Auto SS pH (U) 6.0 *NA* (07/19/23 8:33 AM) Invalid Interpretation Code 5.0 - 9.0 [facility] UA Auto SS Protein (U) [Mass/Vol] Negative (07/19/23 8:33 AM) Normal Negative [facility] UA Auto SS Specific gravity (U) [Rel density] 1.020 *NA* (07/19/23 8:33 AM) Invalid Interpretation Code 1.005 - 1.030 [facility] UA Auto SS UA Spec Desc Clean Catch (07/19/23 8:33 AM) Normal [facility] UA Auto SS Urobilinogen Qn (U) 0.2904399 {[place]'U}/dL Normal 0.0 - 1.0 EU/dL [facility] UA Auto SS WBC Auto Ql (U) Negative (07/19/23 8:33 AM) Normal Negative [facility] UA Auto SS WBC LM.HPF (Urine sed) [#/Area] 0-5 /HPF Normal 0-5/HPF [facility] UA Auto SS Family Medicine Office/Clini c Noteon 07-15-2023 Family Medicine Office/Clinic Note History of Present Illness [place] [facility] [place] 1 day history AMS on dementia. [...] Taylor Dtr Linh Riley, PREST[place] Physical Exam Pleasantly confused obese WF laying in bed, awakens easily. oriented to name. Place is hospital after thinking about it, season ?, Holiday [place]. Month- long pause, July with cueing. Year [...] Daily, 0 (more content not included)... Normal [facility] Comment on above: Result Comment: Elec tronically Signed By: PASCALE RODRIGUEZ, Inderjit\.br\Date and Time Signed: 07/15/23 10:14 EST Discharge Instructionson Discharge Instructions [id number]#1. 00TIFF Normal [facility] Insurance Correspondence Off iceon 07-14-2023 Insurance Correspondence Office [id number]#1. 00TIFF Normal [facility] Medication Listson 3 Medication Lists [id number]. 00TIFF Normal [facility] Transfer Documentson 023 Transfer Documents [id number]. 00TIFF Normal [facility] BMPon 07-13-2023 Anion gap [Moles/Vol] 5 mmol/L Low 6-16 [facility] Comment on above: Performed By: #### 2 933161, 25512154 ####[facility] [address] [place] [address] Calcium [Mass/Vol] 8.6 mg/dL Low 8.9-11.1 [facility] Comment on above: Performed By: #### 2 274108, 86223041 ####[facility] [address] [place] [address] Chloride [Moles/Vol] 105 mmol/L Normal 101-111 [facility] Comment on above: Performed By: #### 2 802848, 61053069 ####[facility] [address] [place] [address] CO2 [Moles/Vol] 29 mmol/L Normal 21-31 [facility] Comment on above: Performed By: #### 2 124151, 39822615 ####[facility] [address] [place] [address] Creatinine [Mass/Vol] 0.6 mg/dL Normal 0.5-1.3 [facility] Comment on above: Performed By: #### 2 567604, 59549413 ####[facility] [address] [place] [address] Glucose [Mass/Vol] 98 mg/dL Normal 55-199 [facility] Comment on above: Result Comment: If t his glucose result represents a fasting glucose, interpretation should refer to the following reference range: 55-99 mg/dL Performed By: #### 2 506141, 86753698 ####[facility] [address] [place] [address] Potassium [Moles/Vol] 4.0 mmol/L Normal 3.5-5.3 [facility] Comment on above: Performed By: #### 2 474267, 07150396 ####[facility] [address] [place] [address] Sodium [Moles/Vol] 135 mmol/L Normal 135-145 [facility] Comment on above: Performed By: #### 2 176630, 31554197 ####[facility] [address] [place] [address] Urea nitrogen [Mass/Vol] 16 mg/dL Normal 5-21 [facility] Comment on above: Performed By: #### 2 973341, 64702501 ####[facility] [address] [place] [address] Urea nitrogen/Creatinine [Mass ratio] 27 No Units High 10-20 [facility] Comment on above: Performed By: #### 2 316334, 61798143 ####[facility] [address] [place] [address] CHEMISTRYOrdered By: SYSTEM SYSTEM on 07-13-2023 Anion gap [Moles/Vol] 5 mmol/L Low 6 - 16 mEq/L [facility]isol Calcium [Mass/Vol] 8.6 mg/dL Low 8.9 - 11. 1 mg/dL [facility] Chloride [Moles/Vol] 105 mmol/L Normal 101 - 1 11 mmol/L [facility] CO2 [Moles/Vol] 29 mmol/L Normal 21 - 31 mmol/L [facility] Creatinine [Mass/Vol] 0.6 mg/dL Normal 0.5 - 1.3 mg/dL [facility]isol GFR/1.73 sq M.predicted among non-blacks MDRD (S/P/Bld) [Vol rate/Area] 91 mL/min/1.73 m2 Normal >=59mL/min/ 1.73 m2 [facility] Comment on above: Interpretive Data: C hronic kidney disease could be indicated at eGFR's of less than 60 mL/min/1.73m2. Kidney failure is indicated at less than 15 mL/min/1.73m2. Glucose [Mass/Vol] 98 mg/dL Normal 55 - 199 mg/dL [facility] Comment on above: Interpretive Data: I f this glucose result represents a fasting glucose, interpretation should refer to the following reference range: 55-99 mg/dL Potassium [Moles/Vol] 4.0 mmol/L Normal 3.5 - 5.3 mmol/L [facility]isol Sodium [Moles/Vol] 135 mmol/L Normal 135 - 145 mmol/L [facility]isol Urea nitrogen [Mass/Vol] 16 mg/dL Normal 5 - 21 mg/dL [facility]isol Urea nitrogen/Creatinine [Mass ratio] 27 mg/mg High 10 - 20 [facility]isol Discharge Note-Nursingon Discharge Note-Nursing CARIDAD GLOVER [...] Pending Diagnostic Test Results None Pharmacy Information [facility] Discharge Instructions Manage sleep wake cycle disturbance with Seroquel at bedtime. Follow-up with neurology and your family doctor as listed as follow-up. Maintain adequate oral hydration. Previously Scheduled Follow-Up Appointments Tuesday 10:00 AM EST Where: [facility] New Follow Up Appointments after Discharge Follow Up with EDMOND PACHECO DO When: Within 2 weeks Comments: Call for followup appointment Where: [address] [facility] [place] [address]- Follow Up with Andres RODRIGUEZ, LEATHA Zaman When: Within 2 to 4 weeks Where: [facility] [address] [address]- Medications What How Much When Instructions Next Dose New aspirin (aspirin 81 mg Oral EC Tab) 1 Tablets By Mouth Every day 12/7 @ 9 AM New quetiapine (SEROquel 25 mg Tab) 1 Tablets By Mouth At bedtime 126 @ 9 PM Unchanged busPIRone (busPIRone 15 mg Tab) 1 Tablets By Mouth 2 times a day 12/6 @ 9 PM Unchanged celecoxib (CeleBREX 200 mg Cap) 1 Capsules By Mouth 2 times a day 12/6 @ 9 PM Unchanged cetirizine (cetirizine 10 mg oral capsule) 1 Capsules By Mouth At bedtime 126 @ 9 PM Unchanged escitalopram (Lexapro 20 mg Tab) 1 Tablets By Mouth Every day 127 @ 9 AM Unchanged infliximab (Remicade) Dr Taylor PREVIOUSLY SCHEDULED Unchanged latanoprost ophthalmic (latanoprost Opth 0.005% Batool) See instructions 1 drop Both eyes daily 126 @ 9 AM Unchanged melatonin (Melatonin 1 mg oral tablet) 1 Milligram By Mouth Once a day (at bedtime) 12/6 @ 9 PM Unchanged multivitamin (Multiple Vitamins Tab) 1 Tablets By Mouth Every day 7 @ 9 AM Unchanged omeprazole (omeprazole 20 [...] (magnesium oxi (more content not included)... Normal [facility] Inpatient Clinical Summaryon 07-13-2023 Inpatient Clinical Summary [address] [address] Clinical Summary Person Information: Name: CARIDAD GLOVER I Age: 82 Years : 1940 Sex: Female PCP: EDMOND PACHECO DO Marital Status: Phone: [phone] Race: White Ethnicity: Non- or Language: Tristanian Visit Id: Visit Reason: Altered mental status; ALTERED MENTAL STATUS - VERY CONFUSED - FRONTAL HEADACHE Speciality: Acuity: Enc Type: Observation Med Service: Medical Arrival: 07/10/2023 16:39:36 Discharge: Dispo Type: Admitted as IP to this [facility] Address: [address] [place] [phone] Provider Notes: Diagnosis: 1:Acute encephalopathy; 2:History of [...] up: With: Address: When: EDMOND PACHECO DO [address] [place] [id number] Within 2 weeks Comments: Call for followup appointment With: Address: When: Austyn Campos MD[address] [address] Within 2 to 4 weeks Type Location Start Finish State Secured Appointment Type Secured Location 07/15/2023 10:00 AM 07/15/2023 10:45 AM Confirmed Patient Education Information: Sleep Apnea, Fzzi-bk-Sgwa; Hyponatremia, Ccja-jh-Vbui Normal [facility] Inpatient Patient Summaryon 07-13-2023 Inpatient Patient Summary [address] [address] Patient Discharge Instructions PERSON INFORMATION [...] up: With: Address: When: EDMOND PACHECO DO [address] [place] [id number] Within 2 weeks Comments: Call for followup appointment With: Address: When: Andres RODRIGUEZ, LEATHA Zaman [address] [address] Within 2 to 4 weeks [...] LIST OF Y (more content not included)... Normal [facility] Interdisciplinary Note - Adalberto e Manageron 07-13-2023 Interdisciplinary Note - Commercial Lines Underwriter Pt is awake and alert in bed, previously rounded with Rimma . Aware of TCU acceptance and precert obtained and plan to DC to TCU today, family present. Declines any further concerns or needs. . PCP verified and insurance information reviewed and DME discussed. Contact information provided and white board updated. Antoine [facility] Comment on above: Result Comment: Elec [...] Remote history of lower back surgery at [facility]. Patient is on Zanaflex we [...] 06:44:00) Ramon (more content not included)... Normal [facility] Comment on above: Result Comment: Elec tronically Signed By: Rimma Paez\.br\Date and Time Signed: 07/12/23 23:36 EST\.br\Electronically Co-Signed By: HARPER RODRIGUEZ, Valente\.br\Date and Time Co-Signed: 07/13/23 07:19 EST eGFRon 07-13-2023 GFR/1.73 sq M.predicted among non-blacks MDRD (S/P/Bld) [Vol rate/Area] 91 mL/min/1.73 m2 Normal >=59 [facility] Comment on above: Order Comment: Order added by Discern Expert. Result Comment: Sales Development Specialist adelso kidney disease could be indicated at eGFR's of less than 60 mL/min/1.73m2. Kidney failure is indicated at less than 15 mL/min/1.73m2. Performed By: #### 2 041170, [id number] ####[facility] [address] [place] [address] Ammoniaon 07-12-2023 Ammonia (P) [Moles/Vol] 24 mcmol Normal 11-35 [facility] Comment on above: Performed By: #### 2 479161, 5997385, 46577002 ####[facility] [address] [place] [address] BMPon 07-12-2023 Anion gap [Moles/Vol] 10 mmol/L Normal 6-16 [facility] Comment on above: Performed By: #### 2 516748, 5977856, 11546331 #### [facility] [address] [place] [address] Calcium [Mass/Vol] 8.8 mg/dL Low 8.9-11.1 [facility] Comment on above: Performed By: #### 2 542155, 5768743, 94688595 #### [facility] [address] [place] [address] Chloride [Moles/Vol] 105 mmol/L Normal 101-111 [facility] Comment on above: Performed By: #### 2 943540, 9718373, 35617409 #### [facility] [address] [place] [address] CO2 [Moles/Vol] 27 mmol/L Normal 21-31 [facility] Comment on above: Performed By: #### 2 142019, 1110223, 08131979 #### [facility] [address] [place] [address] Creatinine [Mass/Vol] 0.6 mg/dL Normal 0.5-1.3 [facility] Comment on above: Performed By: #### 2 703955, 6450394, 73823858 #### [facility] [address] [place] [address] Glucose [Mass/Vol] 101 mg/dL Normal 55-199 [facility] Comment on above: Result Comment: If t his glucose result represents a fasting glucose, interpretation should refer to the following reference range: 55-99 mg/dL Performed By: #### 2 144816, 1321645, 36405754 #### [facility] [address] [place] [address] Potassium [Moles/Vol] 3.5 mmol/L Normal 3.5-5.3 [facility] Comment on above: Performed By: #### 2 676334, 6165384, 23479581 #### [facility] [address] [place] [address] Sodium [Moles/Vol] 138 mmol/L Normal 135-145 [facility] Comment on above: Performed By: #### 2 776878, 1460954, 79231704 #### [facility] [address] [place] [address] Urea nitrogen [Mass/Vol] 15 mg/dL Normal 5-21 [facility] Comment on above: Performed By: #### 2 [id number], 6045581, [id number] #### [facility] [address] [place] [address] Urea nitrogen/Creatinine [Mass ratio] 25 No Units High 10-20 [facility] Comment on above: Performed By: #### 2 667873, 4387824, [id number] #### [facility] [address] [place] [address] CHEMISTRYOrdered By: SYSTEM SYSTEM on 07-12-2023 Ammonia (P) [Moles/Vol] 24 umol Normal 11 - 35 mcmol [facility] Anion gap [Moles/Vol] 10 mmol/L Normal 6 - 16 mEq/L FT [facility] Calcium [Mass/Vol] 8.8 mg/dL Low 8.9 - 11. 1 mg/dL [facility] Chloride [Moles/Vol] 105 mmol/L Normal 101 - 1 11 mmol/L [facility] [facility] CO2 [Moles/Vol] 27 mmol/L Normal 21 - 31 mmol/L [facility] [facility] Creatinine [Mass/Vol] 0.6 mg/dL Normal 0.5 - 1.3 mg/dL [facility] [facility] GFR/1.73 sq M.predicted among non-blacks MDRD (S/P/Bld) [Vol rate/Area] 91 mL/min/1.73 m2 Normal >=59mL/min/ 1.73 m2 [facility] [facility] Comment on above: Interpretive Data: C hronic kidney disease could be indicated at eGFR's of less than 60 mL/min/1.73m2. Kidney failure is indicated at less than 15 mL/min/1.73m2. Glucose [Mass/Vol] 101 mg/dL Normal 55 - 199 mg/dL [facility] Comment on above: Interpretive Data: I f this glucose result represents a fasting glucose, interpretation should refer to the following reference range: 55-99 mg/dL Potassium [Moles/Vol] 3.5 mmol/L Normal 3.5 - 5.3 mmol/L [facility] Sodium [Moles/Vol] 138 mmol/L Normal 135 - 145 mmol/L [facility] [facility] Urea nitrogen [Mass/Vol] 15 mg/dL Normal 5 - 21 mg/dL [facility] [facility] Urea nitrogen/Creatinine [Mass ratio] 25 mg/mg High 10 - 20 [facility] Interdisciplinary Note - Adalberto e Manageron 07-12-2023 Interdisciplinary Note - Commercial Lines Underwriter Pt is awake and alert in bed, previously rounded with Rimma JOHNSTON Pt is aware and remains agreeble to plan for TCU at [place], pending precert at this time. Family at bedside. Aware of plan to stay in hospital today and anticipate DC 12/6. Pt declines any further concerns ro DC needs. . PCP verified and insurance information reviewed and DME discussed. Contact information provided and white board updated. Normal [facility] Comment on above: Result Comment: Elec tronically Signed By: Jeovanny CROWLEY, Shanae\.anusha\Date and Time Signed: 07/12/23 12:53 EST Monitor Recordon 07-12-2023 Monitor Record [id number] 20 [id number]#1. 00TIFF Normal [facility] Monitor Record [id number]. 00TIFF Normal [facility] Monitor Record [id number] 20 [id number]#1. 00TIFF Normal [facility] eGFRon 07-12-2023 GFR/1.73 sq M.predicted among non-blacks MDRD (S/P/Bld) [Vol rate/Area] 91 mL/min/1.73 m2 Normal >=59 [facility] Comment on above: Order Comment: Order added by Discern Expert. Result Comment: Sales Development Specialist adelso kidney disease could be indicated at eGFR's of less than 60 mL/min/1.73m2. Kidney failure is indicated at less than 15 mL/min/1.73m2. Performed By: #### 2 593022, 4930295, [id number] #### [facility] [address] [place] [address] Auto Diffon 07-11-2023 Basophils/100 WBC (Bld) 0.3 % Normal 0.0-2.0 [facility] Comment on above: Order Comment: Order Added by Discern Expert. Performed By: #### 1 [id number], 7851410, 7087461, 0214728, 56458633 #### [facility] [address] [place] [address] Basophils/Leukocytes Auto (Bld) [Pure # fraction] 0.0 E9/L Normal 0.0-0.2 [facility] Comment on above: Order Comment: Order Added by Discern Expert. Performed By: #### 1 0353376, 1185944, 8218940, 4614061, 72191018 #### [facility] [address] [place] [address] Eosinophils/100 WBC (Bld) 1.4 % Normal 0.0-8.0 [facility] Comment on above: Order Comment: Order Added by Discern Expert. Performed By: #### 1 4950175, 1735351, 4445819, 6655587, 30872900 #### [facility] [address] [place] [address] Eosinophils/Leukocytes Auto (Bld) [Pure # fraction] 0.1 E9/L Normal 0.0-0.5 [facility] Comment on above: Order Comment: Order Added by Discern Expert. Performed By: #### 1 3632384, 9577478, 8192243, 7481457, 28646901 #### [facility] [address] [place] [address] Lymphocytes/100 WBC (Bld) 32.5 % Normal 14.0-50.0 [facility] Comment on above: Order Comment: Order Added by Discern Expert. Performed By: #### 1 1556019, 3945383, 8633779, 1488149, 81689707 #### [facility] [address] [place] [address] Lymphocytes/Leukocytes Auto (Bld) [Pure # fraction] 2.0 E9/L Normal 1.0-4.0 [facility] Comment on above: Order Comment: Order Added by Alethea Expert. Performed By: #### 1 4047108, 2364797, 3549366, 9140135, 04793187 #### [facility] [address] [place] [address] Monocytes/100 WBC (Bld) 7.4 % Normal 4.0-14.0 [facility] [place] Comment on above: Order Comment: Order Added by Alethea Expert. Performed By: #### 1 2685808, 6394856, 7166320, 3530305, 06756863 #### [facility] [address] [place] [address] Monocytes/Leukocytes Auto (Bld) [Pure # fraction] 0.5 E9/L Normal 0.2-1.0 [facility] Comment on above: Order Comment: Order Added by Alethea Expert. Performed By: #### 1 9460513, 1329065, 5646953, 9361354, 72224225 #### [facility] [address] [place] [address] Neutrophils/100 WBC (Bld) 58.4 % Normal 36.0-75.0 [facility] Comment on above: Order Comment: Order Added by Discern Expert. Performed By: #### 1 8024063, 3235921, 4935217, 6736681, 26217011 #### [facility] [address] [place] [address] Neutrophils/Leukocytes Auto (Bld) [Pure # fraction] 3.6 E9/L Normal 2.0-7.5 [facility] Comment on above: Order Comment: Order Added by Discern Expert. Performed By: #### 1 6479692, 3849666, 5464651, 2572283, 94287572 #### [facility] [address] [place] [address] BMPon 07-11-2023 Anion gap [Moles/Vol] 7 mmol/L Normal 6-16 [facility] Comment on above: Performed By: #### 1 2689718, 1397907, 2089850, 9841518, 92179835 #### [facility] [address] [place] [address] Calcium [Mass/Vol] 8.5 mg/dL Low 8.9-11.1 [facility] Comment on above: Performed By: #### 1 3811173, 9686805, 2406057, 7039106, 19388589 #### [facility] [address] [place] [address] Chloride [Moles/Vol] 104 mmol/L Normal 101-111 [facility] Comment on above: Performed By: #### 1 4180618, 2278227, 1459529, 5827110, 09086782 #### [facility] [address] [place] [address] CO2 [Moles/Vol] 28 mmol/L Normal 21-31 [facility] Comment on above: Performed By: #### 1 7718485, 5714899, 1615545, 9677417, 80600529 #### [facility] [address] [place] [address] Glucose [Mass/Vol] 105 mg/dL Normal 55-199 [facility] Comment on above: Result Comment: If t his glucose result represents a fasting glucose, interpretation should refer to the following reference range: 55-99 mg/dL Performed By: #### 1 4269055, 8466920, 2768111, 0766666, 73204332 #### [facility] [address] [place] [address] Potassium [Moles/Vol] 3.9 mmol/L Normal 3.5-5.3 [facility] Comment on above: Performed By: #### 1 3017270, 8816694, 0119285, 2437629, 30760423 #### [facility] [address] [place] [address] Sodium [Moles/Vol] 135 mmol/L Normal 135-145 [facility] Comment on above: Performed By: #### 1 5808934, 2955014, 1663065, 8041884, 20637002 #### [facility] [address] [place] [address] Creatinine [Mass/Vol] 0.6 mg/dL Normal 0.5-1.3 [facility] Comment on above: Performed By: #### 1 0348815, 0221665, 0392866, 9383777, 60612926 #### [facility] [address] [place] [address] Urea nitrogen [Mass/Vol] 14 mg/dL Normal 5-21 [facility] Comment on above: Performed By: #### 1 6997340, 7743140, 3069239, 9763606, 96765238 #### [facility] [address] [place] [address] Urea nitrogen/Creatinine [Mass ratio] 23 No Units High 10-20 [facility] Comment on above: Performed By: #### 1 0576020, 6422712, 1289069, 6067687, 96279777 #### [facility] [address] [place] [address] CBC w/ Auto Diffon 3 Erythrocyte distribution width (RBC) [Ratio] 13.0 % Normal 10.9-14.2 [facility] Comment on above: Performed By: #### 1 4330319, 6864045, 2215193, 5860981, 28031119 #### [facility] [address] [place] [address] Hematocrit (Bld) [Volume fraction] 36.9 % Normal 34.0-46.0 [facility] Comment on above: Performed By: #### 1 9133873, 9579334, 9023919, 2983686, 50005862 #### [facility] [address] [place] [address] Hemoglobin (Bld) [Mass/Vol] 12.7 g/dL Normal 12.0-16.0 [facility] Comment on above: Performed By: #### 1 6652183, 9741358, 6142505, 8171536, 90029831 #### [facility] [address] [place] [address] MCH (RBC) [Entitic mass] 32.9 pg Normal 27.0-34.0 [facility] Comment on above: Performed By: #### 1 0109124, 3781693, 0341509, 0804655, 44503171 #### [facility] [address] [place] [address] MCHC (RBC) [Mass/Vol] 34.3 g/dL Normal 31.4-36.0 [facility] Comment on above: Performed By: #### 1 4809376, 7921784, 3319456, 0876740, 80156100 #### [facility] [address] [place] [address] MCV (RBC) [Entitic vol] 95.9 fL Normal 80.0-100.0 [facility] Comment on above: Performed By: #### 1 5672432, 8547722, 7131687, 5623091, 26761844 #### [facility] [address] [place] [address] Platelet mean volume (Bld) [Entitic vol] 7.7 fL Normal 6.4-10.8 [facility] Comment on above: Performed By: #### 1 7053362, 4376169, 6651174, 4509248, 36669958 #### [facility] [address] [place] [address] Platelets (Bld) [#/Vol] 171.0 E9/L Normal 150.0-500.0 [facility] Comment on above: Performed By: #### 1 5153028, 3995090, 5112080, 9057444, 94268287 #### [facility] [address] [place] [address] RBC (Bld) [#/Vol] 3.8 E12/L Low 4.3-5.9 [facility] Comment on above: Performed By: #### 1 8096715, 5127727, 5952196, 2260586, 19315336 #### [facility] [address] [place] [address] WBC corrected for nucl RBC Auto (Bld) [#/Vol] 6.2 E9/L Normal 4.0-11.0 [facility] Comment on above: Performed By: #### 1 5244284, 9715501, 9352776, 2527248, 77011158 #### [facility] [address] [place] [address] CHEMISTRYOrdered By: SYSTEM SYSTEM on 07-11-2023 Ethanol [...] 91 mL/min/1.73 m2 Normal >=59mL/min/ 1.73 m2 [facility] Comment on above: Interpretive Data: [...] High Sensitivity Troponin I Instructions For Use, [employer], March 2018) Consultation Noteon 07-11-20 Consultation Note [...] sensation in all 4 extremities Cerebellar exam: Mvnvck-zt-lego reveals no ataxia. Gait is deferred Assessment/Plan [...] (F42.4: Excoria (more content not included)... Normal [facility] Comment on above: Result Comment: Elec tronically Signed By: Rashida Moraes RN\.br\Date and Time Signed: 07/11/23 07:08 EST\.br\Electronically Co-Signed By: Austyn Campos MD\.br\Date and Time Co-Signed: 07/11/23 10:43 EST Ethanolon 07-11-2023 Ethanol [Mass/Vol] mg/dL Normal <=7 [facility] Comment on above: Performed By: #### 1 2341862, 2360456, 5127884, 7431631, 07979499 #### [facility] [address] [place] [address] HEMATOLOGYOrdered By: SYSTEM SYSTEM on 07-11-2023 Basophils/100 [...] 07-11-2023 Albumin [Mass/Vol] 3.3 g/dL Normal 3.3-5.0 [facility] Comment on above: Performed By: #### 1 8013542, 7123020, 3962506, 1928685, 22485905 #### [facility] [address] [place] [address] Albumin/Globulin (S) [Mass conc ratio] 0.8 Low 1.1-2.2 [facility] Comment on above: Performed By: #### 1 3815642, 1534729, 6955600, 3170978, 22902857 #### [facility] [address] [place] [address] ALP [Catalytic activity/Vol] 60 Int._Unit/L Normal 21-98 [facility] Comment on above: Performed By: #### 1 1508093, 4020435, 9313867, 6162422, 97633188 #### [facility] [address] [place] [address] ALT No additional P-5'-P [Catalytic activity/Vol] 18 Int._Unit/L Normal 6-46 [facility] Comment on above: Performed By: #### 1 0903868, 6647117, 4652779, 1329074, 93991330 #### [facility] [address] [place] [address] AST [Catalytic activity/Vol] 36 Int._Unit/L Normal 5-43 [facility] Comment on above: Performed By: #### 1 1830246, 4214832, 1846871, 8683975, 57973461 #### [facility] [address] [place] [address] Bilirubin [Mass/Vol] 1.3 mg/dL High 0.0-1.1 [facility] Comment on above: Performed By: #### 1 2411568, 4252546, 7918629, 8496161, 40893580 #### [facility] [address] [place] [address] Bilirubin.direct [Mass/Vol] 0.2 mg/dL Normal 0.1-0.4 [facility] Comment on above: Performed By: #### 1 6013777, 3957057, 0013941, 3847038, 52714723 #### [facility] [address] [place] [address] Bilirubin.indirect [Mass or moles/Vol] 1.1 mg/dL High 0.1-0.9 [facility] Comment on above: Performed By: #### 1 5338831, 5292129, 0087124, 9776412, 58940387 #### [facility] [address] [place] [address] Globulin (S) [Mass/Vol] 4.2 g/dL High 1.4-4.0 [facility] Comment on above: Performed By: #### 1 7941555, 9510714, 4159658, 6977886, 07963780 #### [facility] [address] [place] [address] Protein [Mass/Vol] 7.5 g/dL Normal 6.0-7.8 [facility] Comment on above: Performed By: #### 1 3336496, 0317348, 1693776, 9949154, 62997580 #### [facility] [address] [place] [address] Interdisciplinary Note - Adalberto e Manageron 07-11-2023 Interdisciplinary Note - Commercial Lines Underwriter Per nursing, asked to let pt sleep, she didn't get any rest last night. Pending PT/OT. ROSADO form discussed over the phone. Copy provided. Ant dc TBD. CRM to follow. PT/OT recs SNF. Referral made per dtr's request. Precert. Normal [facility] Comment on above: Result Comment: Elec tronically Signed By: Edita Cai.anusha\Date and Time Signed: 07/11/23 15:18 EST Interdisciplinary Note - Penelope n 07-11-2023 Interdisciplinary Note - OT OT [facility] six clicks score 14/24= SNF. Patient requires cga/min A w/ adls and transfers. Patient requires cues for safety and sequencing w/ all functional tasks. Inpatient OT services to follow daily to progress as able w/ functional skills. Normal [facility] Interdisciplinary Note - PTo n 07-11-2023 [...] tactile cues with all functional mobility. Normal [facility] MRI Brain w/o Contraston MRI Brain [...] SID Technologist: JASPREET Technical Comments None Normal [facility] Monitor Recordon 07-11-2023 Monitor Record [id number] 20 [id number]. 00TIFF Normal [facility] Monitor Record [id number] 20 [id number]. 00TIFF Normal [facility] Monitor Record [id number] 20 [id number]. 00TIFF Normal [facility] Monitor Record [id number] 20 [id number]. 00TIFF Normal [facility] Progress Note-Physicianon Progress Note-Physician Assessment/Plan 1. [...] Remote history of lower back surgery at [facility]. Patient is on Zanaflex we [...] (07/11/23 05:47:00) (more content not included)... Normal [facility] Comment on above: Result Comment: Elec tronically Signed By: iRmma Paez\.br\Date and Time Signed: 07/11/23 12:23 EST\.br\Electronically Co-Signed By: HARPER RODRIGUEZ, Valente\.br\Date and Time Co-Signed: 07/11/23 14:40 EST RAD - MRI Screening Formon 1 09-11-2022 RAD - MRI Screening Form [id number] 0TIFF Normal [facility] Sed Rate Automatedon 023 ESR (Bld) [Velocity] 46 mm/h High 0-34 [facility] Comment on above: Performed By: #### 1 1647828, 1223723, 3449389, 1862985, 18088025 #### [facility] [address] [place] [address] TSH With T4fr Reflexon 07-11 TSH Qn 0.78 m[IU]/L Normal 0.34-5.60 [facility] Comment on above: Performed By: #### 1 8741146, 5949776, 3223202, 6911147, 13018525 #### [facility] [address] [place] [address] Troponin 6 Hr.on 07-11-2023 Troponin I.cardiac [Mass/Vol] 11.30 pg/mL Normal 10.10-27.10 [facility] Comment on above: Result Comment: The 95% CI (Confidence Interval) PPV (Positive Predictive Value) for myocardial infarction in females is 38 pg/mL, in males 51 pg/mL. The results should be used in conjunction with clinical conditions of myocardial infarction. (Access High Sensitivity Troponin I Instructions For Use, [employer], March 2018) Performed By: #### 1 8846192, 8289323, 5783035, 6522594, 17381586 #### [facility] [address] [place] [address] Troponin 9 Hr.on 07-11-2023 Troponin I.cardiac [Mass/Vol] 11.70 pg/mL Normal 10.10-27.10 [facility] Comment on above: Result Comment: The 95% CI (Confidence Interval) PPV (Positive Predictive Value) for myocardial infarction in females is 38 pg/mL, in males 51 pg/mL. The results should be used in conjunction with clinical conditions of myocardial infarction. (Access High Sensitivity Troponin I Instructions For Use, [employer], March 2018) Performed By: #### 1 1455086, 7339538, 9453314, 9262070, 51118596 #### [facility] [address] [place] [address] U Drug Screenon 07-11-2023 Amphetamines Screen method >1000 ng/mL Ql (U) Negative Normal Negative [facility] Comment on above: Result Comment: Nega tive Cutoff: <1000 ng/mL Performed By: #### 1 8671202, 9103274, 2609634, 3195280, 55134535 #### [facility] [address] [place] [address] Barbiturates Screen Ql (U) Negative Normal Negative [facility] Comment on above: Result Comment: Nega tive Cutoff: <200 ng/mL Performed By: #### 1 0199911, 7086558, 9360799, 1754128, 71305014 #### [facility] [address] [place] [address] Benzodiazepines Ql (U) Negative Normal Negative [facility] Comment on above: Result Comment: Nega tive Cutoff: <200 ng/mL Performed By: #### 1 1297026, 4713228, 2159153, 1236070, 59242599 #### [facility] [address] [place] [address] Cocaine Ql (U) Negative Normal Negative [facility] Comment on above: Result Comment: Nega tive Cutoff: <300 ng/mL Performed By: #### 1 9404221, 5091721, 1903121, 5600290, 21836728 #### [facility] [address] [place] [address] Opiates Screen Ql (U) Negative Normal Negative [facility] Comment on above: Result Comment: Nega tive Cutoff: <300 ng/mL Performed By: #### 1 2922621, 1298829, 7894463, 9236459, 71282706 #### [facility] [address] [place] [address] Phencyclidine Screen method >25 ng/mL Ql (U) Negative Normal Negative [facility] Comment on above: Result Comment: Nega tive Cutoff: <25 ng/mL These drug screen results are to be used for medical (i.e., treatment) purposes only. Unconfirmed drug screening results must not be used for non-medical purposes (e.g., employment testing, legal testing). Performed By: #### 1 6066832, 6800741, 3405022, 9780722, 69732330 #### [facility] [address] [place] [address] Tetrahydrocannabinol Screen method >50 ng/mL Ql (U) Negative Normal Negative [facility] Comment on above: Result Comment: Nega tive Cutoff: <50 ng/mL Performed By: #### 1 1964617, 9302207, 4271178, 3342995, 40387494 #### [facility] [address] [place] [address] Vit B12on 07-11-2023 Cobalamin (Vitamin B12) [Mass/Vol] 340 pg/mL Normal 50-1500 [facility] Comment on above: Performed By: #### 1 5330554, 8580016, 2003487, 3975359, 33698492 #### [facility] [address] [place] [address] XR Chest Single Viewon 07-11 XR Chest [...] mGy = na DAP = na Normal [facility] eGFRon 07-11-2023 GFR/1.73 sq M.predicted among non-blacks MDRD (S/P/Bld) [Vol rate/Area] 91 mL/min/1.73 m2 Normal >=59 [facility] Comment on above: Order Comment: Order added by Discern Expert. Result Comment: Sales Development Specialist adelso kidney disease could be indicated at eGFR's of less than 60 mL/min/1.73m2. Kidney failure is indicated at less than 15 mL/min/1.73m2. Performed By: #### 1 0186418, 3787531, 5694671, 4419459, 50536017 #### [facility] [address] [place] [address] Auto Diffon 07-10-2023 Basophils/100 WBC (Bld) 0.4 % Normal 0.0-2.0 [facility] Comment on above: Order Comment: Order Added by Discern Expert. Performed By: #### 1 7629502, 1045853, 1895705, 2300312, 72879517 #### [facility] [address] [place] [address] Basophils/Leukocytes Auto (Bld) [Pure # fraction] 0.0 E9/L Normal 0.0-0.2 [facility] Comment on above: Order Comment: Order Added by Discern Expert. Performed By: #### 1 3555786, 9670182, 7311892, 1797603, 68814398 #### [facility] [address] [place] [address] Eosinophils/100 WBC (Bld) 2.4 % Normal 0.0-8.0 [facility] Comment on above: Order Comment: Order Added by Discern Expert. Performed By: #### 1 7557020, 2066774, 4036652, 5811149, 45938492 #### [facility] [address] [place] [address] Eosinophils/Leukocytes Auto (Bld) [Pure # fraction] 0.1 E9/L Normal 0.0-0.5 [facility] Comment on above: Order Comment: Order Added by Discern Expert. Performed By: #### 1 5531469, 8822992, 8404600, 0782710, 84634284 #### [facility] [address] [place] [address] Lymphocytes/100 WBC (Bld) 40.0 % Normal 14.0-50.0 [facility] Comment on above: Order Comment: Order Added by Discern Expert. Performed By: #### 1 6078077, 5674468, 9171618, 3307434, 99516412 #### [facility] [address] [place] [address] Lymphocytes/Leukocytes Auto (Bld) [Pure # fraction] 2.2 E9/L Normal 1.0-4.0 [facility] Comment on above: Order Comment: Order Added by Discern Expert. Performed By: #### 1 9794140, 8447141, 4943109, 8389812, 13731866 #### [facility] [address] [place] [address] Monocytes/100 WBC (Bld) 9.2 % Normal 4.0-14.0 [facility] Comment on above: Order Comment: Order Added by Discern Expert. Performed By: #### 1 3852661, 9988594, 1383541, 3791531, 75796327 #### [facility] [address] [place] [address] Monocytes/Leukocytes Auto (Bld) [Pure # fraction] 0.5 E9/L Normal 0.2-1.0 [facility] Comment on above: Order Comment: Order Added by Discern Expert. Performed By: #### 1 7054329, 9247610, 8179551, 4679018, 69487397 #### [facility] [address] [place] [address] Neutrophils/100 WBC (Bld) 48.0 % Normal 36.0-75.0 [facility] Comment on above: Order Comment: Order Added by Alethea Expert. Performed By: #### 1 9241214, 2983173, 7242868, 6347858, 44811108 #### [facility] [address] [place] [address] Neutrophils/Leukocytes Auto (Bld) [Pure # fraction] 2.7 E9/L Normal 2.0-7.5 [facility] Comment on above: Order Comment: Order Added by Alethea Expert. Performed By: #### 1 6447249, 4933074, 3147734, 8912495, 84734891 #### [facility] [address] [place] [address] BMPon 07-10-2023 Creatinine [Mass/Vol] 0.6 mg/dL Normal 0.5-1.3 [facility] Comment on above: Performed By: #### 1 8070213, 1338306, 9723162, 3442341, 81314323 #### [facility] [address] [place] [address] Urea nitrogen [Mass/Vol] 15 mg/dL Normal 5-21 [facility] Comment on above: Performed By: #### 1 5742435, 5051026, 5889843, 9850012, 81887730 #### [facility] [address] [place] [address] Urea nitrogen/Creatinine [Mass ratio] 25 No Units High 10-20 [facility] Comment on above: Performed By: #### 1 3218243, 5430075, 3229394, 6137955, 98864850 #### [facility] [address] [place] [address] Anion gap [Moles/Vol] 11 mmol/L Normal 6-16 [facility] Comment on above: Performed By: #### 1 0413512, 2026406, 3495538, 6097471, 04282215 #### [facility] [address] [place] [address] Calcium [Mass/Vol] 8.8 mg/dL Low 8.9-11.1 [facility] Comment on above: Performed By: #### 1 3669560, 1773553, 0187236, 8583714, 20341302 #### [facility] [address] [place] [address] Chloride [Moles/Vol] 100 mmol/L Low 101-111 [facility] Comment on above: Performed By: #### 1 9581614, 5905291, 7614926, 2549844, 50610176 #### [facility] [address] [place] [address] CO2 [Moles/Vol] 26 mmol/L Normal 21-31 [facility] Comment on above: Performed By: #### 1 2434713, 8170788, 6263595, 5620467, 32997134 #### [facility] [address] [place] [address] Glucose [Mass/Vol] 93 mg/dL Normal 55-199 [facility] Comment on above: Result Comment: If t his glucose result represents a fasting glucose, interpretation should refer to the following reference range: 55-99 mg/dL Performed By: #### 1 4056156, 9037325, 2980269, 8095568, 04631530 #### [facility] [address] [place] [address] Potassium [Moles/Vol] 3.8 mmol/L Normal 3.5-5.3 [facility] Comment on above: Performed By: #### 1 0480130, 7693750, 8939507, 5034515, 95828794 #### [facility] [address] [place] [address] Sodium [Moles/Vol] 133 mmol/L Low 135-145 [facility] Comment on above: Performed By: #### 1 9272221, 0676118, 6563082, 4066618, 07926915 #### [facility] [address] [place] [address] CBC w/ Auto Diffon 3 Erythrocyte distribution width (RBC) [Ratio] 12.9 % Normal 10.9-14.2 [facility] Comment on above: Performed By: #### 1 2561262, 1730331, 9281709, 1898794, 21280125 #### [facility] [address] [place] [address] Hematocrit (Bld) [Volume fraction] 40.5 % Normal 34.0-46.0 [facility] Comment on above: Performed By: #### 1 6351368, 1566527, 7122948, 8046623, 75459919 #### [facility] [address] [place] [address] Hemoglobin (Bld) [Mass/Vol] 13.6 g/dL Normal 12.0-16.0 [facility] Comment on above: Performed By: #### 1 6561064, 7113731, 0500801, 2440898, 22053197 #### [facility] [address] [place] [address] MCH (RBC) [Entitic mass] 32.2 pg Normal 27.0-34.0 [facility] Comment on above: Performed By: #### 1 3349147, 0842588, 3168152, 3222264, 36046895 #### [facility] [address] [place] [address] MCHC (RBC) [Mass/Vol] 33.5 g/dL Normal 31.4-36.0 [facility] Comment on above: Performed By: #### 1 5352646, 5499546, 7084442, 0210020, 61374039 #### [facility] [address] [place] [address] MCV (RBC) [Entitic vol] 96.4 fL Normal 80.0-100.0 [facility] Comment on above: Performed By: #### 1 3154696, 9516821, 9793885, 6687836, 28355919 #### [facility] [address] [place], [place] [address] Platelet mean volume (Bld) [Entitic vol] 8.0 fL Normal 6.4-10.8 [facility] Comment on above: Performed By: #### 1 3929754, 6208819, 1731355, 5658574, 52718512 #### [facility] [address] [place] [address] Platelets (Bld) [#/Vol] 186.0 E9/L Normal 150.0-500.0 [facility] Comment on above: Performed By: #### 1 7584564, 0264403, 3633263, 2196920, 13152162 #### [facility] [address] [place] [address] RBC (Bld) [#/Vol] 4.2 E12/L Low 4.3-5.9 [facility] Comment on above: Performed By: #### 1 4802065, 7177997, 3602816, 7246541, 43263099 #### [facility] [address] [place] [address] WBC corrected for nucl RBC Auto (Bld) [#/Vol] 5.6 E9/L Normal 4.0-11.0 [facility] Comment on above: Performed By: #### 1 1604256, 5463029, 0370946, 8688915, 92148204 #### [facility] [address] [place] [address] CHEMISTRYOrdered By: SYSTEM SYSTEM on 07-10-2023 Troponin [...] High Sensitivity Troponin I Instructions For Use, [employer], March 2018) Troponin I.cardiac [Mass/Vol] 11.00 pg/mL Normal 10.10 - 27.10 pg/mL [facility] Comment on above: Interpretive Data: T he 95% CI (Confidence Interval) PPV (Positive Predictive Value) for myocardial infarction in females is 38 pg/mL, in males 51 pg/mL. The results should be used in conjunction with clinical conditions of myocardial infarction. (Access High Sensitivity Troponin I Instructions For Use, [employer], March 2018) Amphetamines Screen method >1000 ng/mL [...] JAGRUTI FLOR Invalid Interpretation Code [facility] [place] Subsection Sodium [Moles/Vol] 147571473845 mmol/L Invalid Interpretation Code [facility] [place] Subsection Sodium [Moles/Vol] 555752577 mmol/L Invalid Interpretation Code [facility] [place] Sub[place] CT Head or Brain w/o [...] Allen MD Transcribed by: SID Technologist: CYNTHIA Normal [facility] Capillary Glucose POCOrdered By: Lab ROPUser on 07-10-2023 Glucose [Mass/Vol] 90 mg/dL Normal 55-99 [facility] [place] OC Subsection Comment on above: Result Comment: Анна aguirre RN/ Performed By: #### 1 6180754, 8565430, 4633316, 4249075, 58054491 #### [facility] [address] [place] [address] Consent for Treatmenton Consent for Treatment [id number] 0TIFF Normal [facility] ED Clinical Summaryon 2022 ED Clinical Summary [address] [address] ED Clinical Summary Person Information Name: CARIDAD [place]OVER [place] Age: 82 Years : 1940 Sex: Female Language: Tristanian PCP: EDMOND PACHECO DO Marital Status: Phone: [phone] Visit Id: Visit Reason: Altered mental status; ALTERED MENTAL STATUS - VERY CONFUSED - FRONTAL HEADACHE Speciality: Acuity: 2 Enc Type: Observation Med Service: Emergency Arrival: 07/10/2023 16:39:36 Discharge: LOS: 000 03:48 Checkin: 07/10/2023 16:39:36 Checkout: 07/10/2023 20:27:17 Dispo Type: Admitted as IP to this [facility] EVENTS: Event Name Event Status Request Date/Time [...] 19:47:44 Patient Care Request 07/10/2023 19:47:44 ADDRESS: [address] [place] [id number] [facility] DOC NOTES: MEDICAL INFORMATION: Prescriptions Given: [...] 1:History of dementia; 2:Altered mental status Normal [facility] ED Note-Physicianon 07-10-20 ED Note-Physician Basic [...] but recovered after a stay in the custodial facility. The patient lives alone at home [...] Allergies liang (more content not included)... Normal [facility] Comment on above: Result Comment: Elec tronically Signed By: Gera RODRIGUEZ, Ryan\.br\Date and Time Signed: 07/10/23 19:52 EST ED Patient Education Noteon 07-10-2023 ED Patient Education Note Normal [facility] ED Patient Summaryon 023 ED Patient Summary [address] [address] Patient Discharge Instructions Person Information Name: CARIDAD GLOVER I Age: 82 Years Arrival Date: 07/10/2023 16:39:36 Discharge Diagnosis: 1:History of dementia; 2:Altered mental status Primary Care Physician: EDMOND PACHECO DO Provider Information Primary Provider: Ryan Boss MD Advanced Cardiology Teacher:None The exam and treatment you received in the Emergency Department were for an urgent problem and are not intended as complete care. It is important that you follow up with a doctor, nurse practitioner, or physician?s children's nursery assistant for ongoing care. If your symptoms [...] opioids can be used to help relieve ycgduqfh-kv-oeeahg pain and are often prescribed following a [...] be struggling with addiction, tell your health career center advisor and ask for guidance or call [facility] National Helpline at 4-986-109-RBPK. v Source: [place] Department of Health and Human Services/Center for Disease Control & Prevention [facility] Medications Given: Medication (more content not included)... Normal [facility] HEMATOLOGYOrdered By: SYSTEM SYSTEM on 07-10-2023 [...] 4.2 E12/L Low 4.3 - 5.9 E12/L [facility] HemeAutoSS WBC corrected for nucl RBC Auto (Bld) [#/Vol] 5.6 E9/L Normal 4.0 - 11.0 E9/L [facility] HemeAutoSS Troponin 0 Hr.on 07-10-2023 Troponin I.cardiac [Mass/Vol] 10.20 pg/mL Normal 10.10-27.10 [facility] Comment on above: Result Comment: The 95% CI (Confidence Interval) PPV (Positive Predictive Value) for myocardial infarction in females is 38 pg/mL, in males 51 pg/mL. The results should be used in conjunction with clinical conditions of myocardial infarction. (Access High Sensitivity Troponin I Instructions For Use, [employer], March 2018) Performed By: #### 1 4222205, 6335922, 2985514, 7336495, 74108883 #### [facility] [address] [place] [address] Troponin 3 Hr.on 07-10-2023 Troponin I.cardiac [Mass/Vol] 11.00 pg/mL Normal 10.10-27.10 [facility] Comment on above: Result Comment: The 95% CI (Confidence Interval) PPV (Positive Predictive Value) for myocardial infarction in females is 38 pg/mL, in males 51 pg/mL. The results should be used in conjunction with clinical conditions of myocardial infarction. (Access High Sensitivity Troponin I Instructions For Use, [employer], March 2018) Performed By: #### 1 5440150 ####[facility] [address] [place] [address] UA With Cult Reflexon 2022 Bilirubin Ql (U) Negative Normal Negative [facility] Comment on above: Performed By: #### 1 0789476 ####[address] [place] [address] Clarity (U) CLEAR Normal Clear [facility] Comment on above: Performed By: #### 1 7560397 ####[address] [place] [address] Color (U) YELLOW Normal Yellow [facility] Comment on above: Performed By: #### 1 3294879 ####[address] [place] [address] Epithelial cells.squamous LM.HPF (Urine sed) [#/Area] 3-4 Normal 0-2 [facility] Comment on above: Performed By: #### 1 3726341 ####[facility] [address] [place] [address] Glucose Test strip (U) [Mass/Vol] Negative Normal Negative [facility] Comment on above: Performed By: #### 1 6362924 ####[address] [address] Hemoglobin Ql (U) Negative Normal Negative [facility] Comment on above: Performed By: #### 1 7560661 ####[address] [address] Ketones (U) [Mass/Vol] Negative Normal Negative [facility] Comment on above: Performed By: #### 1 0030659 ####[address] [address] [place].plasma/[place]. RBC (Bld) [Mass ratio] 0-3 Normal 0-3 [facility] Comment on above: Performed By: #### 1 5792991 ####[address] [address] Nitrite Ql (U) Negative Normal Negative [facility] Comment on above: Performed By: #### 1 1945227 ####[address] [address] pH (U) 6.5 [pH] Invalid Interpretation Code 5.0-9.0 [facility] Comment on above: Performed By: #### 1 8145459 ####[address] [address] Protein (U) [Mass/Vol] Negative Normal Negative [facility] Comment on above: Performed By: #### 1 2778263 ####[address] [address] Specific gravity (U) [Rel density] 1.010 Invalid Interpretation Code 1.005-1.030 [facility] Comment on above: Performed By: #### 1 2214753 ####[facility] [address] [place] [address] Type of Urine collection method Clean Catch Normal [facility] Comment on above: Performed By: #### 1 1260682 ####[facility] [address] [place] [address] Urobilinogen Qn (U) 0.2 {[place]'U}/dL Normal 0.0-1.0 [facility] Comment on above: Performed By: #### 1 5285631 ####[facility] [address] [place] [address] WBC Auto Ql (U) Negative Normal Negative [facility] Comment on above: Performed By: #### 1 7619767 ####[facility] [address] [place] [address] WBC LM.HPF (Urine sed) [#/Area] 0-5 Normal 0-5 [facility] Comment on above: Performed By: #### 1 4257838 ####[facility] [address] [place] [address] URINALYSISOrdered By: Kayy Alfaro on 07-10-2023 Bilirubin [...] PM) Normal Negative [facility] UA Auto SS [place].plasma/[place]. RBC (Bld) [Mass ratio] 0-3 /HPF Normal 0-3/HPF [facility] UA A uto SS Nitrite Ql (U) Negative (07/10/23 5:10 PM) Normal Negative [facility] UA Auto SS pH (U) 6.5 *NA* (07/10/23 5:10 PM) Invalid Interpretation Code 5.0 - 9.0 [facility] UA Auto SS Protein (U) [Mass/Vol] Negative (07/10/23 5:10 PM) Normal Negative [facility] UA Auto SS Specific gravity (U) [Rel density] 1.010 *NA* (07/10/23 5:10 PM) Invalid Interpretation Code 1.005 - 1.030 [facility] UA Auto SS UA Spec Desc Clean Catch (07/10/23 5:10 PM) Normal [facility] UA Auto SS Urobilinogen Qn (U) 0.7506229 {[place]'U}/dL Normal 0.0 - 1.0 EU/dL [facility] UA Auto SS WBC Auto Ql (U) Negative (07/10/23 5:10 PM) Normal Negative [facility] UA Auto SS WBC LM.HPF (Urine sed) [#/Area] 0-5 /HPF Normal 0-5/HPF [facility] UA Auto SS eGFRon 07-10-2023 GFR/1.73 sq M.predicted among non-blacks MDRD (S/P/Bld) [Vol rate/Area] 91 mL/min/1.73 m2 Normal >=59 [facility] Comment on above: Order Comment: Order added by Discern Expert. Result Comment: Sales Development Specialist adelso kidney disease could be indicated at eGFR's of less than 60 mL/min/1.73m2. Kidney failure is indicated at less than 15 mL/min/1.73m2. Performed By: #### 1 9557271, 4853854, 6257845, 8095735, 62841430 #### [facility] [address] [place] [address] Physician Orderon 07-08-2023 Physician Order [id number] 0TIFF Normal [facility] Nonvisit Note - PTon 023 Nonvisit Note - PT 06-27-23 hf, pt cxl in remind system, no reason available. Normal [facility] Auto Diffon 06-24-2023 Basophils/100 WBC (Bld) 0.5 % Normal 0.0-2.0 [facility] Comment on above: Order Comment: Order Added by Discern Expert. Performed By: #### 1 4548277, 3215736, 6158723, 4112887 ####[address] [address] Basophils/Leukocytes Auto (Bld) [Pure # fraction] 0.0 E9/L Normal 0.0-0.2 [facility] Comment on above: Order Comment: Order Added by Discern Expert. Performed By: #### 1 9324964, 9517145, 8108092, 5821250 ####[address] [address] Eosinophils/100 WBC (Bld) 2.0 % Normal 0.0-8.0 [facility] Comment on above: Order Comment: Order Added by Discern Expert. Performed By: #### 1 8038215, 1752239, 0726603, 6444333 ####[address] [address] Eosinophils/Leukocytes Auto (Bld) [Pure # fraction] 0.1 E9/L Normal 0.0-0.5 [facility] Comment on above: Order Comment: Order Added by Discern Expert. Performed By: #### 1 8781520, 6096673, 8394879, 6233510 ####[address] [address] Lymphocytes/100 WBC (Bld) 36.5 % Normal 14.0-50.0 [facility] Comment on above: Order Comment: Order Added by Discern Expert. Performed By: #### 1 9590761, 4813466, 6746463, 9316964 ####[address] [address] Lymphocytes/Leukocytes Auto (Bld) [Pure # fraction] 1.7 E9/L Normal 1.0-4.0 [facility] Comment on above: Order Comment: Order Added by Discern Expert. Performed By: #### 1 4759385, 3120673, 9329260, 6445015 ####[address] [place] [address] Monocytes/100 WBC (Bld) 8.1 % Normal 4.0-14.0 [facility] Comment on above: Order Comment: Order Added by Discern Expert. Performed By: #### 1 9232490, 4936136, 9922342, 8232020 ####[address] [address] Monocytes/Leukocytes Auto (Bld) [Pure # fraction] 0.4 E9/L Normal 0.2-1.0 [facility] Comment on above: Order Comment: Order Added by Discern Expert. Performed By: #### 1 8304801, 1162549, 3281160, 9879890 ####[address] [address] Neutrophils/100 WBC (Bld) 52.9 % Normal 36.0-75.0 [facility] Comment on above: Order Comment: Order Added by Discern Expert. Performed By: #### 1 7613233, 5395509, 4164461, 2993286 ####[address] [address] Neutrophils/Leukocytes Auto (Bld) [Pure # fraction] 2.5 E9/L Normal 2.0-7.5 [facility] Comment on above: Order Comment: Order Added by Discern Expert. Performed By: #### 1 9972727, 3789837, 7827599, 7143596 ####[address] [place] [address] CBC w/ Auto Diffon 3 Erythrocyte distribution width (RBC) [Ratio] 13.1 % Normal 10.9-14.2 [facility] Comment on above: Performed By: #### 1 3815331, 0889415, 1173390, 7571808 ####[address] [address] Hematocrit (Bld) [Volume fraction] 38.0 % Normal 34.0-46.0 [facility] Comment on above: Performed By: #### 1 2472455, 9141946, 3680211, 5256362 ####[address] Hemoglobin (Bld) [Mass/Vol] 12.7 g/dL Normal 12.0-16.0 [facility] Comment on above: Performed By: #### 1 8158147, 1487785, 1794571, 2549038 ####[address] MCH (RBC) [Entitic mass] 32.4 pg Normal 27.0-34.0 [facility] Comment on above: Performed By: #### 1 0807738, 5803929, 0686226, 2703223 ####[address] [address] MCHC (RBC) [Mass/Vol] 33.3 g/dL Normal 31.4-36.0 [facility] Comment on above: Performed By: #### 1 2196107, 7667336, 9364656, 6101430 ####[address] MCV (RBC) [Entitic vol] 97.2 fL Normal 80.0-100.0 [facility] Comment on above: Performed By: #### 1 4975102, 3979408, 3028966, 8547745 ####[place] Platelet mean volume (Bld) [Entitic vol] 7.1 fL Normal 6.4-10.8 [facility] Comment on above: Performed By: #### 1 7768416, 4224282, 3917985, 9469983 ####[address] [address] Platelets (Bld) [#/Vol] 194.0 E9/L Normal 150.0-500.0 [facility] Comment on above: Performed By: #### 1 9413279, 8057030, 7193193, 6775001 ####[facility] [address] [place] [address] RBC (Bld) [#/Vol] 3.9 E12/L Low 4.3-5.9 [facility] Comment on above: Performed By: #### 1 7696681, 4907834, 0344152, 5551413 ####[facility] [address] [place] [address] WBC corrected for nucl RBC Auto (Bld) [#/Vol] 4.8 E9/L Normal 4.0-11.0 [facility] Comment on above: Performed By: #### 1 3429909, 5533810, 3262126, 7843311 ####[facility] [address] [place] [address] CHEMISTRYOrdered By: SYSTEM SYSTEM on 06-24-2023 Albumin [...] m2 Normal >=59mL/min/ 1.73 m2 [facility] Chem S Comment on above: Interpretive Data: C hronic kidney disease could be indicated at eGFR's of less than 60 mL/min/1.73m2. Kidney failure is indicated at less than 15 mL/min/1.73m2. Globulin (S) [Mass/Vol] 4.4 g/dL High 1.4 - 4.0 gm/dL [facility] Remisol Glucose [Mass/Vol] 154 mg/dL Normal 55 - 199 mg/dL [facility] Comment on above: Interpretive Data: I f this glucose result represents a fasting glucose, interpretation should refer to the following reference range: 55-99 mg/dL Potassium [Moles/Vol] 3.9 mmol/L Normal 3.5 - 5.3 mmol/L [facility] Remisol Protein [Mass/Vol] 7.7 g/dL Normal 6.0 - 7.8 gm/dL [facility] Remisol Sodium [Moles/Vol] 136 mmol/L Normal 135 - 145 mmol/L [facility] Urea nitrogen [Mass/Vol] 15 mg/dL Normal 5 - 21 mg/dL [facility] Remisol Urea nitrogen/Creatinine [Mass ratio] 19 mg/mg Normal 10 - 20 [facility]isol CMPon 06-24-2023 Albumin [Mass/Vol] 3.3 g/dL Normal 3.3-5.0 [facility] Comment on above: Performed By: #### 1 2394491, 1371069, 3675420, 5868782, 75651409 #### [facility] [address] [place] [address] Albumin/Globulin (S) [Mass conc ratio] 0.8 Low 1.1-2.2 [facility] Comment on above: Performed By: #### 1 9836445, 1646595, 8415474, 7180867, 93753530 #### [facility] [address] [place] [address] ALP [Catalytic activity/Vol] 69 Int._Unit/L Normal 21-98 [facility] Comment on above: Performed By: #### 1 8218028, 4715822, 2960524, 4253554, 49367917 #### [facility] [address] [place] [address] ALT No additional P-5'-P [Catalytic activity/Vol] 22 Int._Unit/L Normal 6-46 [facility] Comment on above: Performed By: #### 1 1144410, 3520379, 0160312, 6626574, 93269095 #### [facility] [address] [place] [address] Anion gap [Moles/Vol] 11 mmol/L Normal 6-16 [facility] Comment on above: Performed By: #### 1 6005912, 3139097, 6872094, 0790581, 23550066 #### [facility] [address] [place] [address] AST [Catalytic activity/Vol] 37 Int._Unit/L Normal 5-43 [facility] Comment on above: Performed By: #### 1 9724766, 9479624, 9768088, 1040946, 74032651 #### [facility] [address] [place] [address] Bilirubin [Mass/Vol] 1.1 mg/dL Normal 0.0-1.1 [facility] Comment on above: Performed By: #### 1 0006300, 5479474, 6968684, 9496347, 39843175 #### [facility] [address] [place] [address] Calcium [Mass/Vol] 8.9 mg/dL Normal 8.9-11.1 [facility] Comment on above: Performed By: #### 1 8737041, 6018510, 0473626, 7728741, 48397455 #### [facility] [address] [place] [address] Chloride [Moles/Vol] 102 mmol/L Normal 101-111 [facility] Comment on above: Performed By: #### 1 8399417, 4442053, 4408987, 3188127, 49875823 #### [facility] [address] [place] [address] CO2 [Moles/Vol] 27 mmol/L Normal 21-31 [facility] Comment on above: Performed By: #### 1 5565838, 9214771, 0999412, 5014198, 20247699 #### [facility] [address] [place] [address] Creatinine [Mass/Vol] 0.8 mg/dL Normal 0.5-1.3 [facility] Comment on above: Performed By: #### 1 5976659, 4839187, 5296829, 4402294, 88016929 #### [facility] [address] [place] [address] Globulin (S) [Mass/Vol] 4.4 g/dL High 1.4-4.0 [facility] Comment on above: Performed By: #### 1 5576610, 1621329, 3201051, 4382135, 41257527 #### [facility] [address] [place] [address] Glucose [Mass/Vol] 154 mg/dL Normal 55-199 [facility] Comment on above: Result Comment: If t his glucose result represents a fasting glucose, interpretation should refer to the following reference range: 55-99 mg/dL Performed By: #### 1 [id number], 0681355, 4002121, 9810602, 45749125 #### [facility] [address] [place] [address] Potassium [Moles/Vol] 3.9 mmol/L Normal 3.5-5.3 [facility] Comment on above: Performed By: #### 1 7035716, 6405288, 0903571, 7501765, 68895601 #### [facility] [address] [place] [address] Protein [Mass/Vol] 7.7 g/dL Normal 6.0-7.8 [facility] Comment on above: Performed By: #### 1 6637848, 6464931, 8194589, 4519641, 46831609 #### [facility] [address] [place] [address] Sodium [Moles/Vol] 136 mmol/L Normal 135-145 [facility] Comment on above: Performed By: #### 1 7071360, 0459729, 3599415, 2329054, 22183377 #### [facility] [address] [place] [address] Urea nitrogen [Mass/Vol] 15 mg/dL Normal 5-21 [facility] Comment on above: Performed By: #### 1 2803648, 3169292, 9650439, 0923310, 29267624 #### [facility] [address] [place] [address] Urea nitrogen/Creatinine [Mass ratio] 19 No Units Normal 10-20 [facility] Comment on above: Performed By: #### 1 3473884, 7022011, 5319125, 8955716, 77847250 #### [facility] [address] [place] [address] Consent for Treatmenton 06-08 Consent for Treatment [id number]#1.0 0TIFF Normal [facility] HEMATOLOGYOrdered By: SYSTEM SYSTEM on 06-24-2023 [...] Normal 4.0 - 11.0 E9/L [facility] HemeAutoSS Physician Orderon 06-24-2023 Physician Order [id number]#1.0 0TIFF Normal [facility] eGFRon 06-24-2023 GFR/1.73 sq M.predicted among non-blacks MDRD (S/P/Bld) [Vol rate/Area] 74 mL/min/1.73 m2 Normal >=59 [facility] Comment on above: Order Comment: Order added by Discern Expert. Result Comment: Sales Development Specialist adelso kidney disease could be indicated at eGFR's of less than 60 mL/min/1.73m2. Kidney failure is indicated at less than 15 mL/min/1.73m2. Performed By: #### 1 3346445, 4117392, 6977628, 1190932, 13534260 #### [facility] [address] [place] [address] Urineon 06-23-2023 Bacteria identified Cx Nom (U) [...] Locations R1: This test was performed at: [facility], [address] [place] [address], [address] , , [facility] Comment on above: Performed By: #### 1 1019802, 2477590, 0102696, 0066332, 62203635 #### [facility] [address] [place] [address] Physician Orderon 06-21-2023 Physician Order [id number]#1.0 0TIFF [facility] URINALYSISOrdered By: Lizet Saab on 06-21-2023 Bacteria LM Ql (Urine sed) 2+ /HPF Invalid Interpretation Code Trace/HPF [facility] UA Auto SS Bilirubin Ql (U) 1+ *ABN* (06/21/23 7:00 AM) Invalid Interpretation Code Negative [facility] Auto SS Calcium oxalate crystals LM [...] Interpretation Code Negative [facility] UA Auto SS [place].plasma/[place]. RBC (Bld) [Mass ratio] 0-3 /HPF Normal 0-3/HPF [facility] A uto SS Mucus Ql (Urine [...] [facility] UA Auto SS Urobilinogen Qn (U) 0.8353984 {[place]'U}/dL Normal 0.0 - 1.0 EU/dL [facility] UA Auto SS WBC Auto Ql (U) 2+ *ABN* (06/21/23 7:00 AM) Invalid Interpretation Code Negative [facility] UA Auto SS Urinalysison 06-21-2023 Bacteria LM Ql (Urine sed) 2+ /HPF Abnormal Trace [facility] Comment on above: Performed By: #### 1 0471293, 0949171, 6782994, 9343273, 97016570 #### [facility] [address] [place] [address] Bilirubin Ql (U) 1+ Abnormal Negative [facility] Comment on above: Performed By: #### 1 9371388, 1702270, 1033125, 1064035, 75792906 #### [facility] [address] [place] [address] Calcium oxalate crystals LM Ql (Urine sed) Present Normal [facility] Comment on above: Performed By: #### 1 8068393, 3641700, 8776705, 2773600, 17904156 #### [facility] [address] [place] [address] Clarity (U) SL CLOUDY Abnormal Clear [facility] Comment on above: Performed By: #### 1 8749898, 0273735, 0473008, 3437739, 62934388 #### [facility] [address] [place] [address] Color (U) YELLOW Normal Yellow [facility] Comment on above: Performed By: #### 1 7757473, 9393020, 0192745, 5819986, 19968233 #### [facility] [address] [place] [address] Epithelial cells.squamous LM.HPF (Urine sed) [#/Area] 0-2 Normal 0-2 [facility] Comment on above: Performed By: #### 1 1115826, 5903626, 6309590, 3335232, 49818549 #### [facility] [address] [place] [address] Glucose Test strip (U) [Mass/Vol] Negative Normal Negative [facility] Comment on above: Performed By: #### 1 1559522, 1566137, 6895546, 7614510, 24310746 #### [facility] [address] [place] [address] Hemoglobin Ql (U) Negative Normal Negative [facility] Comment on above: Performed By: #### 1 1824098, 6333546, 1121897, 8070510, 01076344 #### [facility] [address] [place] [address] Ketones (U) [Mass/Vol] TRACE Abnormal Negative [facility] Comment on above: Performed By: #### 1 1299207, 2271345, 9846818, 4535805, 99214874 #### [facility] [address] [place] [address] [place].plasma/[place]. RBC (Bld) [Mass ratio] 0-3 Normal 0-3 [facility] Comment on above: Performed By: #### 1 3361800, 4359005, 2934070, 2252474, 11252180 #### [facility] [address] [place] [address] Mucus Ql (Urine sed) TRACE Normal [facility] Comment on above: Performed By: #### 1 1131668, 1060779, 5657840, 2534504, 03907774 #### [facility] [address] [place] [address] Nitrite Ql (U) Positive Abnormal Negative [facility] Comment on above: Performed By: #### 1 4639307, 5495601, 5386618, 6511730, 49264182 #### [facility] [address] [place] [address] pH (U) 5.5 [pH] Invalid Interpretation Code 5.0-9.0 [facility] Comment on above: Performed By: #### 1 2600474, 5860662, 6564700, 0194426, 47609658 #### [facility] [address] [place] [address] Protein (U) [Mass/Vol] Negative Normal Negative [facility] Comment on above: Performed By: #### 1 8785371, 3495410, 0164855, 5286356, 35819664 #### [facility] [address] [place] [address] Specific gravity (U) [Rel density] 1.025 Invalid Interpretation Code 1.005-1.030 [facility] Comment on above: Performed By: #### 1 2315475, 0389703, 8226344, 3735929, 05391496 #### [facility] [address] [place] [address] Type of Urine collection method Clean Catch Normal [facility] Comment on above: Performed By: #### 1 8869207, 6847072, 0972165, 7910237, 71758575 #### [facility] [address] [place] [address] Urobilinogen Qn (U) 0.2 {[place]'U}/dL Normal 0.0-1.0 [facility] Comment on above: Performed By: #### 1 5804408, 5178258, 8024495, 0625384, 74320388 #### [facility] [address] [place] [address] WBC Auto Ql (U) 2+ Abnormal Negative [facility] Comment on above: Performed By: #### 1 8119900, 2990093, 5920345, 0524412, 00278974 #### [facility] [address] [place] [address] UrinalysisOrdered By: Lizet Saab on 06-21-2023 WBC LM.HPF (Urine sed) [#/Area] /[HPF] Abnormal 0-5 [facility] Comment on above: Performed By: #### 1 8788113, 2603873, 7122950, 3921492, 51050821 #### [facility] [address] [place] [address] Nonvisit Note - PTon 023 Nonvisit Note - PT Patient showed up at 11:00 (30 minutes late). Her ride misunderstood the time and thought the appointment was at 11:00 instead of 10:30. Normal [facility] Nonvisit Note - PTon 023 Nonvisit Note - PT Transit called and said they would not be able to pick her up. Her daughter will out of town so she is unable to get her either. [facility] PT - Assessmentson 3 PT - Assessments [id number]#1. 00TIFF [facility] PT - Assessments [id number] 04 [id number]#1. 00TIFF [facility] C Urineon 05-13-2023 Bacteria identified Cx [...] Locations R1: This test was performed at: [facility], [address] [place] [address], [facility] , , [facility] Comment on above: Performed By: #### 1 3195661, 2900136, 5534086, 1344302, 49251366 #### [facility] [address] [place] [address] Physician Orderon 05-11-2023 Physician Order [id number]#1.0 0CD:127 [facility] URINALYSISOrdered By: Cuate Rea on 05-11-2023 [...] [Mass/Vol] Negative (05/11/23 10:10 AM) Normal Negative [facility] Auto SS Hemoglobin Ql (U) Negative (05/11/23 10:10 AM) Normal Negative [facility] UA Auto SS Ketones (U) [Mass/Vol] Negative (05/11/23 10:10 AM) Normal Negative [facility] UA Auto SS [place].plasma/[place]. RBC (Bld) [Mass ratio] 0-3 /HPF Normal 0-3/HPF [facility] A uto SS Nitrite Ql (U) Negative (05/11/23 10:10 AM) Normal Negative [facility] Auto SS pH (U) 8.0 *NA* (05/11/23 10:10 AM) Invalid Interpretation Code 5.0 - 9.0 [facility] Auto SS Protein (U) [Mass/Vol] Negative (05/11/23 10:10 AM) Normal Negative [facility] UA Auto SS Specific gravity (U) [Rel density] 1.015 *NA* (05/11/23 10:10 AM) Invalid Interpretation Code 1.005 - 1.030 [facility]A Auto SS UA Spec Desc Clean Catch (05/11/23 10:10 AM) Normal [facility] UA Auto SS Urobilinogen Qn (U) 0.8826027 {[place]'U}/dL Normal 0.0 - 1.0 EU/dL [facility]A Auto SS WBC Auto Ql (U) Negative (05/11/23 10:10 AM) Normal Negative [facility]A Auto SS WBC LM.HPF (Urine sed) [#/Area] 0-5 /HPF Normal 0-5/HPF [facility]A Auto SS Urinalysison 05-11-2023 Bacteria LM Ql (Urine sed) 2+ /HPF Abnormal Trace [facility] Comment on above: Performed By: #### 1 1597639, 8885214, 4886258, 6504261, 90167912 #### [facility] [address] [place] [address] Bilirubin Ql (U) Negative Normal Negative [facility] Comment on above: Performed By: #### 1 7564610, 4684696, 5567077, 6319579, 16626261 #### [facility] [address] [place] [address] Clarity (U) SL CLOUDY Abnormal Clear [facility] Comment on above: Performed By: #### 1 7934422, 5806604, 1392164, 2708808, 72112235 #### [facility] [address] [place] [address] Color (U) YELLOW Normal Yellow [facility] Comment on above: Performed By: #### 1 0163821, 3137074, 1170267, 8070324, 29729188 #### [facility] [address] [place] [address] Epithelial cells.squamous LM.HPF (Urine sed) [#/Area] 0-2 Normal 0-2 [facility] Comment on above: Performed By: #### 1 9077550, 5613145, 5360218, 1060088, 18754047 #### [facility] [address] [place], [place] [address] Glucose Test strip (U) [Mass/Vol] Negative Normal Negative [facility] Comment on above: Performed By: #### 1 7145388, 0494962, 6172383, 0963985, 22183810 #### [facility] [address] [place] [address] Hemoglobin Ql (U) Negative Normal Negative [facility] Comment on above: Performed By: #### 1 0723091, 3723615, 7596791, 3513538, 81029181 #### [facility] [address] [place] [address] Ketones (U) [Mass/Vol] Negative Normal Negative [facility] Comment on above: Performed By: #### 1 3541886, 5109411, 5306172, 3584838, 18999006 #### [facility] [address] [place] [address] [place].plasma/[place]. RBC (Bld) [Mass ratio] 0-3 Normal 0-3 [facility] Comment on above: Performed By: #### 1 2898464, 6110129, 3390908, 1770428, 78564281 #### [facility] [address] [place] [address] Nitrite Ql (U) Negative Normal Negative [facility] Comment on above: Performed By: #### 1 5349900, 8194197, 4157390, 5797154, 47654012 #### [facility] [address] [place] [address] pH (U) 8.0 [pH] Invalid Interpretation Code 5.0-9.0 [facility] Comment on above: Performed By: #### 1 4214915, 0393800, 8839527, 9000078, 07608507 #### [facility] [address] [place] [address] Protein (U) [Mass/Vol] Negative Normal Negative [facility] Comment on above: Performed By: #### 1 4550164, 2599984, 9291491, 0140782, 58784169 #### [facility] [address] [place] [address] Specific gravity (U) [Rel density] 1.015 Invalid Interpretation Code 1.005-1.030 [facility] Comment on above: Performed By: #### 1 7305847, 6799077, 6571192, 0952886, 07732631 #### [facility] [address] [place] [address] Type of Urine collection method Clean Catch Normal [facility] Comment on above: Performed By: #### 1 7873931, 8483067, 1585580, 4701715, 17827932 #### [facility] [address] [place] [address] Urobilinogen Qn (U) 0.2 {[place]'U}/dL Normal 0.0-1.0 [facility] Comment on above: Performed By: #### 1 2730221, 4739227, 2008106, 2117839, 31296905 #### [facility] [address] [place] [address] WBC Auto Ql (U) Negative Normal Negative [facility] Comment on above: Performed By: #### 1 6233693, 6557307, 1164034, 6616479, 36209795 #### [facility] [address] [place] [address] WBC LM.HPF (Urine sed) [#/Area] 0-5 Normal 0-5 [facility] Comment on above: Performed By: #### 1 5516002, 7861648, 3325179, 1611224, 02894760 #### [facility] [address] [place] [address] Nonvisit Note - PTon 023 Nonvisit Note - PT Daughter called and said that Caridad was dizzy. Normal [facility] Nonvisit Note - PTon 023 Nonvisit [...] any abnormal news or sx's from her care-golf caddie that's there to help her at the [...] HR: 48 bpm, & BP: 138/98. Normal [facility] PT - Assessmentson PT - Assessments [id number]#1. 00CD:127 Normal [facility] PT - Assessments [id number]#1. 00CD:127 Normal [facility] PT - Home Exercise Programon 04-25-2023 PT - Home Exercise Program [id number]#1.0 0CD:127 Normal [facility] Alanine aminotransferase [En zymatic activity/volume] in Serum or PlasmaOrdered By: Carline Jackson on 04-05-2023 ALT [Catalytic activity/Vol] 23 U/L 7-52 [facility] Albumin [Mass/volume] in Ser um or Plasma by Bromocresol green (BCG) dye binding methoOrdered By: Carline Jackson on 04-05-2023 Albumin BCG dye [Mass/Vol] 3.5 g/dL 3.5-5.7 [facility] Alkaline phosphatase [Enzyma tic activity/volume] in Serum or PlasmaOrdered By: Carline Jackson on 04-05-2023 ALP [Catalytic activity/Vol] 69 U/L 34-104 [facility] Aspartate aminotransferase [ Enzymatic activity/volume] in Serum or PlasmaOrdered By: Carline Jackson on 04-05-2023 AST [Catalytic activity/Vol] 45 U/L 13-39 [facility] Basophils Auto (Bld) [#/Vol] Ordered By: Carline Jackson on 04-05-2023 Basophils (Bld) [#/Vol] 0.0 10*3/uL 0.0-0.2 [facility] Basophils/100 WBC Auto (Bld) Ordered By: Carline Jackson on 04-05-2023 Basophils/100 WBC (Bld) 0.7 % . F [facility] Bilirubin.total [Mass/volume ] in Serum or PlasmaOrdered By: Carline Jackson on 04-05-2023 Bilirubin [Mass/Vol] 1.0 mg/dL 0.3-1.0 [facility] Calcium [Mass/volume] in Ser um or PlasmaOrdered By: Carline Jackson on 04-05-2023 Calcium [Mass/Vol] 8.6 mg/dL 8.6-10.3 [facility] Carbon dioxide, total [Moles /volume] in Serum or PlasmaOrdered By: Carline Jackson on 04-05-2023 CO2 [Moles/Vol] 25.2 mmol/L 21.0-31.0 [facility] Chloride [Moles/volume] in S marianna or PlasmaOrdered By: Carline Jackson on 04-05-2023 Chloride [Moles/Vol] 99 mmol/L 98-107 [facility] Creatinine [Mass/volume] in Serum or PlasmaOrdered By: Carline Jackson on 04-05-2023 Creatinine [Mass/Vol] 0.95 mg/dL 0.60-1.20 [facility] Eosinophils Auto (Bld) [#/Vo l]Ordered By: Carline Jackson on 04-05-2023 Eosinophils (Bld) [#/Vol] 0.1 10*3/uL 0.0-0.45 [facility] Eosinophils/100 WBC Auto (Bl d)Ordered By: Carline Jackson on 04-05-2023 Eosinophils/100 WBC (Bld) 2.1 % . [facility] Erythrocyte distribution wid th Auto (RBC) [Ratio]Ordered By: Carline Jackson on 04-05-2023 Erythrocyte distribution width (RBC) [Ratio] 13.7 % 11.9-15.3 [facility] Erythrocyte sedimentation ra te by Photometric methodOrdered By: Carline Jackson on 04-05-2023 ESR Photometric method (Bld) [Velocity] 47 mm/hr [facility] Globulin Calc (S) [Mass/Vol] Ordered By: Carline Jackson on 04-05-2023 Globulin (S) [Mass/Vol] 4.9 g/dL [facility] Glucose [Mass/volume] in Ser um or PlasmaOrdered By: Carline Jackson on 04-05-2023 Glucose [Mass/Vol] 100 mg/dL 70-100 [facility] Comment on above: ADA recommended refe rence rangeRandom Glucose Reference Range is dependent on time and content of last meal. Glucose of more than 200 mg/dL in a nonstressed, ambulatory subject supports the diagnosis of Diabetes Mellitus. Hematocrit Auto (Bld) [Volum e fraction]Ordered By: Carline Jackson on 04-05-2023 Hematocrit (Bld) [Volume fraction] 38.5 % 34.0-46.4 [facility] Hemoglobin [Mass/volume] in BloodOrdered By: Carline Jackson on 04-05-2023 Hemoglobin (Bld) [Mass/Vol] 13.0 g/dL 11.8-15.4 [facility] Leukocytes [#/volume] correc kala for nucleated erythrocytes in Blood by Automated counOrdered By: Carline Jackson on 04-05-2023 WBC corrected for nucl RBC Auto (Bld) [#/Vol] 5.2 10*3/uL 3.8-11.6 [facility] Lymphocytes Auto (Bld) [#/Vo l]Ordered By: Carline Jackson on 04-05-2023 Lymphocytes (Bld) [#/Vol] 1.9 10*3/uL 1.00-4.8 [facility] Lymphocytes/100 WBC Auto (Bl d)Ordered By: Carline Jackson on 04-05-2023 Lymphocytes/100 WBC (Bld) 36.4 % . [facility] MCH Auto (RBC) [Entitic mass ]Ordered By: Carline Jackson on 04-05-2023 MCH (RBC) [Entitic mass] 32.3 pg 24.7-34.3 [facility] MCHC Auto (RBC) [Mass/Vol]Or dered By: Carline Jackson on 04-05-2023 MCHC (RBC) [Mass/Vol] 33.7 g/dL 32.0-35.0 [facility] MCV Auto (RBC) [Entitic vol] Ordered By: Carline Jackson on 04-05-2023 MCV (RBC) [Entitic vol] 95.9 fL 80-100 [facility] Monocytes Auto (Bld) [#/Vol] Ordered By: Carline Jackson on 04-05-2023 Monocytes (Bld) [#/Vol] 0.4 10*3/uL 0.0-0.8 [facility] Monocytes/100 WBC Auto (Bld) Ordered By: Carline Jackson on 04-05-2023 Monocytes/100 WBC (Bld) 6.8 % . F [facility] Neutrophils Auto (Bld) [#/Vo l]Ordered By: Carline Jackson on 04-05-2023 Neutrophils (Bld) [#/Vol] 2.8 10*3/uL 1.8-7.7 [facility] Neutrophils/100 WBC Auto (Bl d)Ordered By: Carline Jackson on 04-05-2023 Neutrophils/100 WBC (Bld) 54.0 % . [facility] No Panel InformationOrdered By: Carline Jackson on 04-05-2023 Estimated GFR (CKD-EPI) > 60.0 mL/Min [facility] Creatinine Clearance (Chem N/A [facility] Nucleated erythrocytes [Pres ence] in Blood by Automated countOrdered By: Carline Jackson on 04-05-2023 Nucleated RBC Auto Ql (Bld) 0.2 /100{WBC} 0-0.5 [facility] Platelet mean volume Auto (B ld) [Entitic vol]Ordered By: Carline Jackson on 04-05-2023 Platelet mean volume (Bld) [Entitic vol] 8.6 fL 6.3-10.7 [facility] Platelets Auto (Bld) [#/Vol] Ordered By: Carline Jackson on 04-05-2023 Platelets (Bld) [#/Vol] 186 10*3/uL 150-450 [facility] Potassium [Moles/volume] in Serum or PlasmaOrdered By: Carline Jackson on 04-05-2023 Potassium [Moles/Vol] See comment 3.5-5.1 [facility] Comment on above: Specimen hemolyzed, redraw requested Protein [Mass/volume] in Ser um or PlasmaOrdered By: Carline Jackson on 04-05-2023 Protein [Mass/Vol] 8.4 g/dL 6.4-8.9 [facility] RBC Auto (Bld) [#/Vol]Ordere d By: Carline Jackson on 04-05-2023 RBC (Bld) [#/Vol] 4.01 10*6/uL 3.60-5.00 [facility] Serum or plasma albumin/glob ulin mass ratioOrdered By: Carline Jackson on 04-05-2023 Albumin/Globulin [Mass ratio] 0.7 {ratio} [facility] Serum or plasma anion gap de terminationOrdered By: Carline Jackson on 04-05-2023 Anion gap [Moles/Vol] TNP [facility] Comment on above: Test not performed Sodium [Moles/volume] in Ser um or PlasmaOrdered By: Carline Jackson on 04-05-2023 Sodium [Moles/Vol] 130 mmol/L 136-145 [facility] Urea nitrogen [Mass/volume] in Serum or PlasmaOrdered By: Carline Jackson on 04-05-2023 Urea nitrogen [Mass/Vol] 20 mg/dL 7-25 [facility] WBC Auto (Bld) [#/Vol]Ordere d By: Carline Jackson on 04-05-2023 WBC (Bld) [#/Vol] 5.2 10*3/uL 3.8-11.6 [facility] C Urineon 04-01-2023 Bacteria identified Cx Nom [...] Locations R1: This test was performed at: [facility], [address] [place] [address], [id number] , , [facility] Comment on above: Performed By: #### 2 [id number] ####[facility] [id number] [place] [address] Nonvisit Note - PTon 023 Nonvisit Note - PT works better than tuesday per daughter Normal [facility] PT - Assessmentson 3 PT - Assessments [id number]#1. 00CD:127 Normal [facility] PT - Assessments [id number]#1. 00CD:127 Normal [facility] Physician Orderon 03-30-2023 Physician Order [id number]#1. 00CD:127 Normal [facility] UA With Cult Reflexon 2022 Bacteria LM Ql (Urine sed) 3+ /HPF Abnormal Trace [facility] Comment on above: Performed By: #### 1 3322750, 2181163, 4616675, 7375306, 09262274 #### [facility] [address] [place] [address] Bilirubin Ql (U) Negative Normal Negative [facility] Comment on above: Performed By: #### 1 7146402, 2254922, 8556109, 5740962, 83527728 #### [facility] [address] [place] [address] Clarity (U) CLOUDY Abnormal Clear [facility] Comment on above: Performed By: #### 1 9885208, 5714911, 6081066, 6657904, 88975953 #### [facility] [address] [place] [address] Color (U) YELLOW Normal Yellow [facility] Comment on above: Performed By: #### 1 7880126, 8356768, 8581826, 5545181, 88077353 #### [facility] [address] [place] [address] Epithelial cells.squamous LM.HPF (Urine sed) [#/Area] 0-2 Normal 0-2 [facility] Comment on above: Performed By: #### 1 5247130, 2954679, 6296701, 1459093, 50999903 #### [facility] [address] [place] [address] Glucose Test strip (U) [Mass/Vol] Negative Normal Negative [facility] Comment on above: Performed By: #### 1 2019621, 9158065, 3515290, 0964098, 47753587 #### [facility] Laboratory [address] [place] [address] Hemoglobin Ql (U) Negative Normal Negative [facility] Comment on above: Performed By: #### 1 [id number], [id number], 2258109, [id number], [id number] #### [facility] Laboratory [address] [place] [address] Ketones (U) [Mass/Vol] Negative Normal Negative [facility] Comment on above: Performed By: #### 1 [id number], [id number], 7396043, 0897426, [id number] #### [facility] Laboratory [address] [place] [address] [place].plasma/[place]. RBC (Bld) [Mass ratio] 0-3 Normal 0-3 [facility] Comment on above: Performed By: #### 1 [id number], 8691231, 2265292, 1250558, [id number] #### [facility] Laboratory [address] [place] [address] Nitrite Ql (U) Positive Abnormal Negative [facility] Comment on above: Performed By: #### 1 [id number], 2461457, 9252930, 8644143, [id number] #### [facility] [address] [place] [address] pH (U) 7.0 [pH] Invalid Interpretation Code 5.0-9.0 [facility] Comment on above: Performed By: #### 1 [id number], 4182708, 7084518, 7238065, [id number] #### [facility] Laboratory [address] [place] [address] Protein (U) [Mass/Vol] Negative Normal Negative [facility] Comment on above: Performed By: #### 1 [id number], 6841260, 5272709, 7433879, [id number] #### [facility] Laboratory [address] [place] [address] Specific gravity (U) [Rel density] 1.020 Invalid Interpretation Code 1.005-1.030 [facility] Comment on above: Performed By: #### 1 [id number], 2277821, 6128726, 9805258, [id number] #### [facility] Laboratory [address] [place] [address] Type of Urine collection method Clean Catch Normal [facility] Comment on above: Performed By: #### 1 [id number], 9861029, 4134232, 5017891, [id number] #### [facility] Laboratory [address] [place], [place] [address] Urobilinogen Qn (U) 1.0 {[place]'U}/dL Normal 0.0-1.0 [facility] Comment on above: Performed By: #### 1 [id number], 5841006, 6785980, 7111931, [id number] #### [facility] Laboratory [address] [place] [address] WBC Auto Ql (U) 1+ Abnormal Negative [facility] Comment on above: Performed By: #### 1 [id number], 1728120, 9842175, 4237098, [id number] #### [facility] Laboratory [address] [place] [address] WBC LM.HPF (Urine sed) [#/Area] /[HPF] Abnormal 0-5 [facility] Comment on above: Performed By: #### 1 [id number], 6276587, 5151172, 5731659, [id number] #### [facility] Laboratory [address] [place] [address] URINALYSISOrdered By: Laura Sharp on 03-30-2023 Bacteria [...] AM) Normal Negative [facility] UA Auto SS [place].plasma/[place]. RBC (Bld) [Mass ratio] 0-3 /HPF Normal [...] [facility] UA Auto SS Urobilinogen Qn (U) 1.5946225 {[place]'U}/dL Normal 0.0 - 1.0 EU/dL [facility] [...] discharge visit. [place] [facility] [place] presented after fall at home and [...] diphtheria/pertussis, favian (more content not included)... Normal [facility] Comment on above: Result Comment: Elec tronically Signed By: Immanuel HOBSON, Nan Ibrahim\.br\Date and Time Signed: 03/24/23 11:48 EDT Family Medicine Office/Clini c Noteon 03-16-2023 Family Medicine Office/Clinic Note History of Present Illness [facility] [place] [facility] [place] presented after fall at home and [...] LAUREN Rheumatology Dr. Taylor Dtr Linh Riley, MINE EXPERT Physical Exam Pleasant, talkative obese WF seated [...] 7. 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 Mazariegos Other intermediate (current) drug therapy (Z79.899: Other fine hairer (current) drug therapy) Follow-up No qualifying data [...] mg= 1 (more content not included)... Normal [facility] Comment on above: Result Comment: Elec tronically Signed By: PASCALE RODRIGUEZ, Inderjit\.br\Date and Time Signed: 03/16/23 21:17 EDT Insurance Correspondence Off iceon 03-16-2023 Insurance Correspondence Office [id number] Normal [facility] CHEMISTRYOrdered By: SYSTEM SYSTEM on 03-11-2023 [...] m2 Normal >=59mL/min/ 1.73 m2 [facility] Chem S Glucose [Mass/Vol] 95 mg/dL Normal [...] Normal 0.5 - 1.3 mg/dL [facility] Remisol GFR/1.73 sq M.predicted among non-blacks MDRD (S/P/Bld) [Vol rate/Area] 87 mL/min/1.73 m2 Normal >=59mL/min/ 1.73 m2 [facility] Chem S Glucose [Mass/Vol] 102 mg/dL Normal 55 - 199 mg/dL [facility] Remisol Potassium [Moles/Vol] 3.9 mmol/L Normal 3.5 - 5.3 mmol/L [facility] Remisol Sodium [Moles/Vol] 135 mmol/L Normal 135 - 145 mmol/L [facility] Remisol Urea nitrogen [Mass/Vol] 10 mg/dL Normal 5 - 21 mg/dL [facility] Remisol Urea nitrogen/Creatinine [Mass ratio] 14 mg/mg Normal 10 - 20 [facility] Remisol CHEMISTRYOrdered By: Lab ROP User on 03-10-2023 Glucose [Mass/Vol] 109 mg/dL High 55 - 99 mg/dL [facility] POC Subsection POC Device SN [id number] Invalid Interpretation Code [facility] POC Subsection POC User ID [id number] Invalid Interpretation Code [facility] POC Subsection POC Username ELIDA RIVERA Invalid Interpretation Code [facility] POC Subsection COAGULATIONOrdered By: Ricarda Saab on 03-10-2023 aPTT Coag (PPP) [Time] 35.2 s Normal 25.1 - 36.5 second(s) [facility] Auto Coag INR Coag (PPP) [Relative time] 1.1 {INR} Invalid Interpretation Code [facility] Auto Coag PT Coag (PPP) [Time] 12.4 s Normal 9.4 - 1 2.5 second(s) [facility] Auto Coag HEMATOLOGYOrdered By: SYSTEM SYSTEM on 03-10-2023 Basophils/100 WBC (Bld) 0.9 % Normal 0.0 - 2.0 % [facility] HemeAutoSS Basophils/Leukocytes Auto (Bld) [Pure # fraction] 0.0 E9/L Normal 0.0 - 0.2 E9/L [facility] HemeAutoSS Eosinophils/100 WBC (Bld) 1.9 % Normal 0.0 - 8.0 % [facility] HemeAutoSS Eosinophils/Leukocytes Auto (Bld) [Pure # fraction] [...] Normal 4.0 - 11.0 E9/L [facility] HemeAutoSS URINALYSISOrdered By: Lizet Saab on 03-10-2023 [...] PM) Normal Negative [facility] UA Auto SS [place].plasma/[place]. RBC (Bld) [Mass ratio] 0-3 /HPF Normal [...] [facility] UA Auto SS Urobilinogen Qn (U) 4.0244650 {[place]'U}/dL Invalid Interpretation Code 0.0 - 1.0 EU/dL [facility] UA Auto SS WBC Auto Ql (U) Negative (03/10/23 12:34 PM) Normal Negative [facility] UA Auto SS WBC LM.HPF (Urine sed) [#/Area] 0-5 /HPF Normal 0-5/HPF [facility] UA Auto SS Klarissa 02-07-2023 CNPN Telephone ([facility]) CARIDAD GLOVER I ([id number]) 1940 F Date Time Provider Department 02/07/23 QUIANA WATERMAN [facility] During your visit today, we recorded the following information about you: Blaise Higginbotham Pss 02/07/2023 12:09 PM Signed Dtr, Linh Osvaldo ALATORRE on [facility] Nurse Line on 02/10 @9:53A. Linh states pt was recently seen by the ALCOHOL RUBBER. She is wondering if she can get a Report sent to pt PCP, Tobi Pacheco in [place], [place]. Linh is POA and requesting a return call back at . Thank you, Blaise Mohamud RN 02/07/2023 12:56 PM Signed RN called daughter Linh back, no answer, left a detailed message that we will need the fax number to sent the requested notes to the new PCP Tobi Pacheco, [place], [place]. 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] Prescriptions as of 02/07/2023 [...] eyes [H35.373]05/20/2017 PCO (posterior capsular opacification), bilater*11/16/2017 Vox-sww-jyyjmnifibt 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.529] 01/28/2020 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 Linh stated she was sorry she missed the Nurse call re: mom. Pt. verified 1940. Linh provided the fax number for Dr. Tobi Pahceco . Linh's contact number is . Thank you, Blaise Mohamud RN 02/07/2023 2:29 PM Signed RN returned daughter's phone call, no answer, left a message that I faxed over the last office visit notes to Dr. T[facility] [phone]. Joyce Mohamud RN Allergies As of Date: 02/07/2023 Noted Allergy Reaction CORTISONE 05/20/2017 14 - Other: See Comments Comments: Spinal fluid suppressed MEDROL DOSE PACK (METHYLPREDNISOL*08/31 14 - Other: See Comments Comments: Severe headaches Date Reviewed: 01/19/2023 Reviewed by: Coty Duque RN - Fully Assessed Reason for Visit: Appointment [186] Cmt: Returned call and gave Fax Number to Dr. 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 Call [phone] and select option 0 for all other services AND request senior resources. When reviewing the list of communities, please reference the abbreviation gonzalez listed below. IL (Independent Living) AL (Assisted Living) AL-MC (Assisted Living with secure memory care unit) AL-MS (Assisted Living with memory care support) SN-Alf LTC-MC (long-term care with secure memory care unit) LTC-MS (long-term care with memory support) [facility] (IL; AL; SN) *Pet friendly [address] [facility], [place] [address] [facility] (AL; SN) *Pets welcome [address] [place] [address] [facility] (AL-MC; SN) *Pet friendly for small pets [address] [place] [address] [facility] Life [facility] ([place]; AL; AL-MC; SN) *Possibly pet friendly [address] [facility] [address] [facility] (MC; SN; LTC) [address], [place] [address] [facility] [place] ([place]; AL) [address] [facility] , [place], [place] [address] [facility] (IL; AL; AL-MC; SN; LTC) [address] [place], [place] [address] [facility] [place] [facility] ([facility]) [address] [place] [address] [facility] ([place]; AL; AL-MC; SN) [address] [place] [address] SW will remain available. 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 Normal [facility] Alanine aminotransferase [En zymatic activity/volume] in Serum or PlasmaOrdered By: Carline Jackson on 01-20-2023 ALT [Catalytic activity/Vol] 18 U/L 7-52 [facility] Albumin [Mass/volume] in Ser um or Plasma by Bromocresol green (BCG) dye binding methoOrdered By: Carline Jackson on 01-20-2023 Albumin BCG dye [Mass/Vol] 3.3 g/dL 3.5-5.7 [facility] Alkaline phosphatase [Enzyma tic activity/volume] in Serum or PlasmaOrdered By: Carline Jackson on 01-20-2023 ALP [Catalytic activity/Vol] 80 U/L 34-104 [facility] Aspartate aminotransferase [ Enzymatic activity/volume] in Serum or PlasmaOrdered By: Carline Jackson on 01-20-2023 AST [Catalytic activity/Vol] 38 U/L 13-39 [facility] Basophils Auto (Bld) [#/Vol] Ordered By: Carline Jackson on 01-20-2023 Basophils (Bld) [#/Vol] 0.0 10*3/uL 0.0-0.2 [facility] Basophils/100 WBC Auto (Bld) Ordered By: Carline Jackson on 01-20-2023 Basophils/100 WBC (Bld) 0.7 % . F [facility] Bilirubin.total [Mass/volume ] in Serum or PlasmaOrdered By: Carline Jackson on 01-20-2023 Bilirubin [Mass/Vol] 0.8 mg/dL 0.3-1.0 [facility] Calcium [Mass/volume] in Ser um or PlasmaOrdered By: Carline Jackson on 01-20-2023 Calcium [Mass/Vol] 8.4 mg/dL 8.6-10.3 [facility] Carbon dioxide, total [Moles /volume] in Serum or PlasmaOrdered By: Carline Jackson on 01-20-2023 CO2 [Moles/Vol] 26.8 mmol/L 21.0-31.0 [facility] Chloride [Moles/volume] in S marianna or PlasmaOrdered By: Carline Jackson on 01-20-2023 Chloride [Moles/Vol] 103 mmol/L 98-107 [facility] Creatinine [Mass/volume] in Serum or PlasmaOrdered By: Carline Jackson on 01-20-2023 Creatinine [Mass/Vol] 0.64 mg/dL 0.60-1.20 [facility] Eosinophils Auto (Bld) [#/Vo l]Ordered By: Carline Jackson on 01-20-2023 Eosinophils (Bld) [#/Vol] 0.2 10*3/uL 0.0-0.45 [facility] Eosinophils/100 WBC Auto (Bl d)Ordered By: Carline Jackson on 01-20-2023 Eosinophils/100 WBC (Bld) 3.4 % . [facility] Erythrocyte distribution wid th Auto (RBC) [Ratio]Ordered By: Carline Jackson on 01-20-2023 Erythrocyte distribution width (RBC) [Ratio] 13.5 % 11.9-15.3 [facility] Erythrocyte sedimentation ra te by Photometric methodOrdered By: Carline Jackson on 01-20-2023 ESR Photometric method (Bld) [Velocity] 42 mm/hr 0-29 [facility] Globulin Calc (S) [Mass/Vol] Ordered By: Carline Jackson on 01-20-2023 Globulin (S) [Mass/Vol] 4.4 g/dL [facility] Glucose [Mass/volume] in Ser um or PlasmaOrdered By: Carline Jackson on 01-20-2023 Glucose [Mass/Vol] 79 mg/dL 70-100 [facility] Comment on above: ADA recommended refe rence rangeRandom Glucose Reference Range is dependent on time and content of last meal. Glucose of more than 200 mg/dL in a nonstressed, ambulatory subject supports the diagnosis of Diabetes Mellitus. Hematocrit Auto (Bld) [Volum e fraction]Ordered By: Carline Jackson on 01-20-2023 Hematocrit (Bld) [Volume fraction] 37.1 % 34.0-46.4 [facility] Hemoglobin [Mass/volume] in BloodOrdered By: Carline Jackson on 01-20-2023 Hemoglobin (Bld) [Mass/Vol] 12.5 g/dL 11.8-15.4 [facility] Leukocytes [#/volume] correc kala for nucleated erythrocytes in Blood by Automated counOrdered By: Carline Jackson on 01-20-2023 WBC corrected for nucl RBC Auto (Bld) [#/Vol] 4.8 10*3/uL 3.8-11.6 [facility] Lymphocytes Auto (Bld) [#/Vo l]Ordered By: Carline Jackson on 01-20-2023 Lymphocytes (Bld) [#/Vol] 2.0 10*3/uL 1.00-4.8 [facility] Lymphocytes/100 WBC Auto (Bl d)Ordered By: Carline Jackson on 01-20-2023 Lymphocytes/100 WBC (Bld) 41.0 % . [facility] MCH Auto (RBC) [Entitic mass ]Ordered By: Carline Jackson on 01-20-2023 MCH (RBC) [Entitic mass] 32.5 pg 24.7-34.3 [facility] MCHC Auto (RBC) [Mass/Vol]Or dered By: Carline Jackson on 01-20-2023 MCHC (RBC) [Mass/Vol] 33.8 g/dL 32.0-35.0 [facility] MCV Auto (RBC) [Entitic vol] Ordered By: Carline Jackson on 01-20-2023 MCV (RBC) [Entitic vol] 96.1 fL 80-100 F [facility] Monocytes Auto (Bld) [#/Vol] Ordered By: Carline Jackson on 01-20-2023 Monocytes (Bld) [#/Vol] 0.4 10*3/uL 0.0-0.8 [facility] Monocytes/100 WBC Auto (Bld) Ordered By: Carline Jackson on 01-20-2023 Monocytes/100 WBC (Bld) 7.9 % . F [facility] Neutrophils Auto (Bld) [#/Vo l]Ordered By: Carline Jackson on 01-20-2023 Neutrophils (Bld) [#/Vol] 2.2 10*3/uL 1.8-7.7 [facility] Neutrophils/100 WBC Auto (Bl d)Ordered By: Carline Jackson on 01-20-2023 Neutrophils/100 WBC (Bld) 47.0 % . [facility] No Panel InformationOrdered By: Carline Jackson on 01-20-2023 Estimated GFR (CKD-EPI) > 60.0 mL/Min [facility] Creatinine Clearance (Chem N/A [facility] Nucleated erythrocytes [Pres ence] in Blood by Automated countOrdered By: Carline Jackson on 01-20-2023 Nucleated RBC Auto Ql (Bld) 0.2 /100{WBC} 0-0.5 [facility] Platelet mean volume Auto (B ld) [Entitic vol]Ordered By: Carline Jackson on 01-20-2023 Platelet mean volume (Bld) [Entitic vol] 7.8 fL 6.3-10.7 [facility] Platelets Auto (Bld) [#/Vol] Ordered By: Carline Jackson on 01-20-2023 Platelets (Bld) [#/Vol] 174 10*3/uL 150-450 [facility] Potassium [Moles/volume] in Serum or PlasmaOrdered By: Carline Jackson on 01-20-2023 Potassium [Moles/Vol] 4.3 mmol/L 3.5-5.1 [facility] Protein [Mass/volume] in Ser um or PlasmaOrdered By: Carline Jackson on 01-20-2023 Protein [Mass/Vol] 7.7 g/dL 6.4-8.9 [facility] RBC Auto (Bld) [#/Vol]Ordere d By: Carline Jackson on 01-20-2023 RBC (Bld) [#/Vol] 3.86 10*6/uL 3.60-5.00 [facility] Serum or plasma albumin/glob ulin mass ratioOrdered By: Carline Jackson on 01-20-2023 Albumin/Globulin [Mass ratio] 0.8 {ratio} [facility] Serum or plasma anion gap de terminationOrdered By: Carline Jackson on 01-20-2023 Anion gap [Moles/Vol] 8.5 mmol/L 6.0-15.0 [facility] Sodium [Moles/volume] in Ser um or PlasmaOrdered By: Carline Jackson on 01-20-2023 Sodium [Moles/Vol] 134 mmol/L 136-145 [facility] Urea nitrogen [Mass/volume] in Serum or PlasmaOrdered By: Carline Jackson on 01-20-2023 Urea nitrogen [Mass/Vol] 17 mg/dL 7-25 [facility] WBC Auto (Bld) [#/Vol]Ordere d By: Carline Jackson on 01-20-2023 WBC (Bld) [#/Vol] 4.8 10*3/uL 3.8-11.6 [facility] CNOVon 01-19-2023 CNOV Office Visit (PATSY ) CARIDAD GLOVER I ([id number]) 1940 F Date Time Provider Department 01/19/23 12:30 PM QUIANA WATERMAN During your visit today, we recorded the following information about you: Pulse Blood pressure Weight 54/minute 160/81 84.5 kg Quiana Waterman APRN.POULTRY HATCHERY MANAGER 01/20/2023 12:16 PM Signed Date: January 19, 2023 CARIDAD GLOVER [id number] [place] [address] [facility] INITIAL PATIENT EVALUATION Reason for Consult: Cognitive changes, Mobility decline, and Behavioral changes I had the pleasure of seeing this 82 year old year old female at the [facility]. The patient is referred by SELF Patient [...] Activities of Daily Living Lomas Index of [place] in Activities of Daily Living (A.D.L.) Bathing: [...] meals prepare (more content not included)... Normal [facility] CNCOon 12-31-2022 CNCO Letter Text Normal [facility] Basophils Auto (Bld) [#/Vol] Ordered By: Carline Jackson on 09-23-2022 Basophils (Bld) [#/Vol] 0.0 10*3/uL 0.0-0.2 [facility] Basophils/100 WBC Auto (Bld) Ordered By: Carline Jackson on 09-23-2022 Basophils/100 WBC (Bld) 0.7 % . F [facility] Body fluid albumin measureme nt (mass/volume)Ordered By: Carline Jackson on 09-23-2022 Albumin (Body fld) [Mass/Vol] 2.8 g/dL 3.2-5.5 [facility] Creatinine and Glomerular fi ltration rate.predicted panel (S/P/Bld)Ordered By: Carline Jackson on 09-23-2022 Creatinine [Mass/Vol] 0.74 mg/dL 0.44-1.03 [facility] Eosinophils Auto (Bld) [#/Vo l]Ordered By: Carline Jackson on 09-23-2022 Eosinophils (Bld) [#/Vol] 0.2 10*3/uL 0.0-0.45 [facility] Eosinophils/100 WBC Auto (Bl d)Ordered By: Carline Jackson on 09-23-2022 Eosinophils/100 WBC (Bld) 3.7 % . [facility] Erythrocyte distribution wid th Auto (RBC) [Ratio]Ordered By: Carline Jackson on 09-23-2022 Erythrocyte distribution width (RBC) [Ratio] 13.7 % 11.9-15.3 [facility] Erythrocyte sedimentation ra te by Photometric methodOrdered By: Carline Jackson on 09-23-2022 ESR Photometric method (Bld) [Velocity] 39 mm/hr 0-29 [facility] Estimated glomerular filtrat ion rate (GFR) non- AmericanOrdered By: Carline Jackson on 09-23-2022 GFR/1.73 sq M.predicted among non-blacks MDRD (S/P/Bld) [Vol rate/Area] > 60 mL/Min [facility] Globulin Calc (S) [Mass/Vol] Ordered By: Carline Jackson on 09-23-2022 Globulin (S) [Mass/Vol] 4.4 g/dL [facility] Hematocrit Auto (Bld) [Volum e fraction]Ordered By: Carline Jackson on 09-23-2022 Hematocrit (Bld) [Volume fraction] 38.0 % 34.0-46.4 [facility] Hemoglobin [Mass/volume] in BloodOrdered By: Carline Jackson on 09-23-2022 Hemoglobin (Bld) [Mass/Vol] 12.5 g/dL 11.8-15.4 [facility] Leukocytes [#/volume] correc kala for nucleated erythrocytes in Blood by Automated counOrdered By: Carline Jackson on 09-23-2022 WBC corrected for nucl RBC Auto (Bld) [#/Vol] 4.5 10*3/uL 3.8-11.6 [facility] Lymphocytes Auto (Bld) [#/Vo l]Ordered By: Carline Jackson on 09-23-2022 Lymphocytes (Bld) [#/Vol] 1.5 10*3/uL 1.00-4.8 [facility] Lymphocytes/100 WBC Auto (Bl d)Ordered By: Carline Jackson on 09-23-2022 Lymphocytes/100 WBC (Bld) 34.1 % . [facility] MCH Auto (RBC) [Entitic mass ]Ordered By: Carline Jackson on 09-23-2022 MCH (RBC) [Entitic mass] 31.7 pg 24.7-34.3 [facility] MCHC Auto (RBC) [Mass/Vol]Or dered By: Carline Jackson on 09-23-2022 MCHC (RBC) [Mass/Vol] 32.8 g/dL 32.0-35.0 [facility] MCV Auto (RBC) [Entitic vol] Ordered By: Carline Jackson on 09-23-2022 MCV (RBC) [Entitic vol] 96.7 fL 80-100 [facility] Monocytes Auto (Bld) [#/Vol] Ordered By: Carline Jackson on 09-23-2022 Monocytes (Bld) [#/Vol] 0.4 10*3/uL 0.0-0.8 [facility] Monocytes/100 WBC Auto (Bld) Ordered By: Carline Jackson on 09-23-2022 Monocytes/100 WBC (Bld) 8.5 % . [facility] Neutrophils Auto (Bld) [#/Vo l]Ordered By: Carline Jackson on 09-23-2022 Neutrophils (Bld) [#/Vol] 2.4 10*3/uL 1.8-7.7 [facility] Neutrophils/100 WBC Auto (Bl d)Ordered By: Carline Jackson on 09-23-2022 Neutrophils/100 WBC (Bld) 53.0 % . [facility] No Panel InformationOrdered By: Carline Jackson on 09-23-2022 Estimated GFR () > 60 mL/Min [facility] Comment on above: GFR estimated refere nce range: According to KDOQI guidelines, <60 ml/min/1.73m2 is sufficient to diagnose a patient with chronic kidney disease. Pharmacy Creatinine Clearance (Chem N/A [facility] Nucleated erythrocytes [Pres ence] in Blood by Automated countOrdered By: Carline Jackson on 09-23-2022 Nucleated RBC Auto Ql (Bld) 0.5 /100{WBC} 0-0.5 [facility] Platelet mean volume Auto (B ld) [Entitic vol]Ordered By: Carline Jackson on 09-23-2022 Platelet mean volume (Bld) [Entitic vol] 7.9 fL 6.3-10.7 [facility] Platelets Auto (Bld) [#/Vol] Ordered By: Carline Jackson on 09-23-2022 Platelets (Bld) [#/Vol] 187 10*3/uL 150-450 [facility] Protein [Mass/volume] in Ser um or PlasmaOrdered By: Carline Jackson on 09-23-2022 Protein [Mass/Vol] 7.2 g/dL 6.1-7.9 [facility] RBC Auto (Bld) [#/Vol]Ordere d By: Carline Jackson on 09-23-2022 RBC (Bld) [#/Vol] 3.93 10*6/uL 3.60-5.00 [facility] Serum or plasma alanine robins otransferase measurement without P-5'-P (enzymatic activiOrdered By: Carline Jackson on 09-23-2022 ALT No additional P-5'-P [Catalytic activity/Vol] 26 U/L 10-60 [facility] Serum or plasma albumin/glob ulin mass ratioOrdered By: Carline Jackson on 09-23-2022 Albumin/Globulin [Mass ratio] 0.6 {ratio} [facility] Serum or plasma alkaline rolando sphatase measurement (enzymatic activity/volume)Ordered By: Carline Jackson on 09-23-2022 ALP [Catalytic activity/Vol] 63 U/L 32-92 [facility] Serum or plasma anion gap de terminationOrdered By: Carline Jackson on 09-23-2022 Anion gap [Moles/Vol] 11.3 mmol/L 6.0-15.0 [facility] Serum or plasma aspartate am inotransferase measurement (enzymatic activity/volume)Ordered By: Carline Jackson on 09-23-2022 AST [Catalytic activity/Vol] 50 U/L 10-42 [facility] Serum or plasma calcium saray urement (mass/volume)Ordered By: Carline Jackson on 09-23-2022 Calcium [Mass/Vol] 8.6 mg/dL 8.2-10.2 [facility] Serum or plasma chloride van surement (moles/volume)Ordered By: Carline Jackson on 09-23-2022 Chloride [Moles/Vol] 100 mmol/L 95-114 [facility] Serum or plasma glucose saray urement (mass/volume)Ordered By: Carline Jackson on 09-23-2022 Glucose [Mass/Vol] 105 mg/dL 70-100 [facility] Comment on above: ADA recommended refe rence rangeRandom Glucose Reference Range is dependent on time and content of last meal. Glucose of more than 200 mg/dL in a nonstressed, ambulatory subject supports the diagnosis of Diabetes Mellitus. Serum or plasma potassium me asurement (moles/volume)Ordered By: Carline Jackson on 09-23-2022 Potassium [Moles/Vol] 4.4 mmol/L 3.5-5.1 [facility] Serum or plasma sodium measu rement (moles/volume)Ordered By: Carline Jackson on 09-23-2022 Sodium [Moles/Vol] 134 mmol/L 136-146 [facility] Serum or plasma total biliru bin measurement (mass/volume)Ordered By: Carline Jackson on 09-23-2022 Bilirubin [Mass/Vol] 0.9 mg/dL 0.3-1.2 [facility] Serum or plasma total carbon dioxide measurement (moles/volume)Ordered By: Carline Jackson on 09-23-2022 CO2 [Moles/Vol] 27.1 mmol/L 22.0-30.0 [facility] Serum or plasma urea nitroge n measurement (mass/volume)Ordered By: Carline Jackson on 09-23-2022 Urea nitrogen [Mass/Vol] 10 mg/dL 9- [facility] WBC Auto (Bld) [#/Vol]Ordere d By: Carline Jackson on 09-23-2022 WBC (Bld) [#/Vol] 4.5 10*3/uL 3.8-11.6 [facility] Albumin [Mass/volume] in Ser um or PlasmaOrdered By: Sunny Taylor on 07-21-2022 Albumin [Mass/Vol] 2.6 g/dL 3.2-5.5 [facility] Basophils Auto (Bld) [#/Vol] Ordered By: Sunny Taylor on 07-21-2022 Basophils (Bld) [#/Vol] 0.0 10*3/uL 0.0-0.2 [facility] Basophils/100 WBC Auto (Bld) Ordered By: Sunny Taylor on 07-21-2022 Basophils/100 WBC (Bld) 0.6 % . [facility] Creatinine and Glomerular fi ltration rate.predicted panel (S/P/Bld)Ordered By: Sunny Taylor on 07-21-2022 Creatinine [Mass/Vol] 0.62 mg/dL 0.44-1.03 [facility] Eosinophils Auto (Bld) [#/Vo l]Ordered By: Sunny Taylor on 07-21-2022 Eosinophils (Bld) [#/Vol] 0.1 10*3/uL 0.0-0.45 [facility] Eosinophils/100 WBC Auto (Bl d)Ordered By: Sunny Taylor on 07-21-2022 Eosinophils/100 WBC (Bld) 1.7 % . [facility] Erythrocyte distribution wid th Auto (RBC) [Ratio]Ordered By: Sunny Taylor on 07-21-2022 Erythrocyte distribution width (RBC) [Ratio] 13.4 % 11.9-15.3 [facility] Erythrocyte sedimentation ra te by Photometric methodOrdered By: Sunny Taylor on 07-21-2022 ESR Photometric method (Bld) [Velocity] 38 mm/hr 0-29 [facility] Estimated glomerular filtrat ion rate (GFR) non- AmericanOrdered By: Sunny Taylor on 07-21-2022 GFR/1.73 sq M.predicted among non-blacks MDRD (S/P/Bld) [Vol rate/Area] > 60 mL/Min [facility] Globulin Calc (S) [Mass/Vol] Ordered By: Sunny Taylor on 07-21-2022 Globulin (S) [Mass/Vol] 4.3 g/dL [facility] Hematocrit Auto (Bld) [Volum e fraction]Ordered By: Sunny Taylor on 07-21-2022 Hematocrit (Bld) [Volume fraction] 37.5 % 34.0-46.4 [facility] Hemoglobin [Mass/volume] in BloodOrdered By: Sunny Taylor on 07-21-2022 Hemoglobin (Bld) [Mass/Vol] 12.5 g/dL 11.8-15.4 [facility] Leukocytes [#/volume] correc kala for nucleated erythrocytes in Blood by Automated counOrdered By: Sunny Taylor on 07-21-2022 WBC corrected for nucl RBC Auto (Bld) [#/Vol] 4.3 10*3/uL 3.8-11.6 [facility] Lymphocytes Auto (Bld) [#/Vo l]Ordered By: Sunny Taylor on 07-21-2022 Lymphocytes (Bld) [#/Vol] 1.7 10*3/uL 1.00-4.8 [facility] Lymphocytes/100 WBC Auto (Bl d)Ordered By: Sunny Taylor on 07-21-2022 Lymphocytes/100 WBC (Bld) 39.7 % . [facility] MCH Auto (RBC) [Entitic mass ]Ordered By: Sunny Taylor on 07-21-2022 MCH (RBC) [Entitic mass] 32.1 pg 24.7-34.3 [facility] MCHC Auto (RBC) [Mass/Vol]Or dered By: Sunny Taylor on 07-21-2022 MCHC (RBC) [Mass/Vol] 33.4 g/dL 32.0-35.0 [facility] MCV Auto (RBC) [Entitic vol] Ordered By: Sunny Taylor on 07-21-2022 MCV (RBC) [Entitic vol] 96.1 fL 80-100 [facility] Monocytes Auto (Bld) [#/Vol] Ordered By: Sunny Taylor on 07-21-2022 Monocytes (Bld) [#/Vol] 0.4 10*3/uL 0.0-0.8 [facility] Monocytes/100 WBC Auto (Bld) Ordered By: Sunny Taylor on 07-21-2022 Monocytes/100 WBC (Bld) 9.2 % . [facility] Neutrophils Auto (Bld) [#/Vo l]Ordered By: Sunny Taylor on 07-21-2022 Neutrophils (Bld) [#/Vol] 2.1 10*3/uL 1.8-7.7 [facility] Neutrophils/100 WBC Auto (Bl d)Ordered By: Sunny Taylor on 07-21-2022 Neutrophils/100 WBC (Bld) 48.8 % . [facility] No Panel InformationOrdered By: Sunny Taylor on 07-21-2022 Estimated GFR () > 60 mL/Min [facility] Comment on above: GFR estimated refere nce range: According to KDOQI guidelines, <60 ml/min/1.73m2 is sufficient to diagnose a patient with chronic kidney disease. Pharmacy Creatinine Clearance (Chem N/A [facility] Nucleated erythrocytes [Pres ence] in Blood by Automated countOrdered By: Sunny Taylor on 07-21-2022 Nucleated RBC Auto Ql (Bld) 0.2 /100{WBC} 0-0.5 [facility] Platelet mean volume Auto (B ld) [Entitic vol]Ordered By: Sunny Taylor on 07-21-2022 Platelet mean volume (Bld) [Entitic vol] 8.1 fL 6.3-10.7 [facility] Platelets Auto (Bld) [#/Vol] Ordered By: Sunny Taylor on 07-21-2022 Platelets (Bld) [#/Vol] 196 10*3/uL 150-450 [facility] Protein [Mass/volume] in Ser um or PlasmaOrdered By: Sunny Taylor on 07-21-2022 Protein [Mass/Vol] 6.9 g/dL 6.1-7.9 [facility] RBC Auto (Bld) [#/Vol]Ordere d By: Sunny Taylor on 07-21-2022 RBC (Bld) [#/Vol] 3.90 10*6/uL 3.60-5.00 [facility] Serum or plasma alanine robins otransferase measurement without P-5'-P (enzymatic activiOrdered By: Sunny Taylor on 07-21-2022 ALT No additional P-5'-P [Catalytic activity/Vol] 26 U/L 10-60 [facility] Serum or plasma albumin/glob ulin mass ratioOrdered By: Sunny Taylor on 07-21-2022 Albumin/Globulin [Mass ratio] 0.6 {ratio} [facility] Serum or plasma alkaline rolando sphatase measurement (enzymatic activity/volume)Ordered By: Sunny Taylor on 07-21-2022 ALP [Catalytic activity/Vol] 65 U/L 32-92 [facility] Serum or plasma anion gap de terminationOrdered By: Sunny Taylor on 07-21-2022 Anion gap [Moles/Vol] 9.3 mmol/L 6.0-15.0 [facility] Serum or plasma aspartate am inotransferase measurement (enzymatic activity/volume)Ordered By: Sunny Taylor on 07-21-2022 AST [Catalytic activity/Vol] 49 U/L 10-42 [facility] Serum or plasma calcium saray urement (mass/volume)Ordered By: Sunny Taylor on 07-21-2022 Calcium [Mass/Vol] 8.2 mg/dL 8.2-10.2 [facility] Serum or plasma chloride van surement (moles/volume)Ordered By: Sunny Taylor on 07-21-2022 Chloride [Moles/Vol] 100 mmol/L 95-114 [facility] Serum or plasma glucose saray urement (mass/volume)Ordered By: Sunny Taylor on 07-21-2022 Glucose [Mass/Vol] 77 mg/dL 70-100 [facility] Comment on above: ADA recommended refe rence rangeRandom Glucose Reference Range is dependent on time and content of last meal. Glucose of more than 200 mg/dL in a nonstressed, ambulatory subject supports the diagnosis of Diabetes Mellitus. Serum or plasma potassium me asurement (moles/volume)Ordered By: Sunny Taylor on 07-21-2022 Potassium [Moles/Vol] 4.9 mmol/L 3.5-5.1 [facility] Serum or plasma sodium measu rement (moles/volume)Ordered By: Sunny Taylor on 07-21-2022 Sodium [Moles/Vol] 131 mmol/L 136-146 [facility] Serum or plasma total biliru bin measurement (mass/volume)Ordered By: Sunny Taylor on 07-21-2022 Bilirubin [Mass/Vol] 0.7 mg/dL 0.3-1.2 [facility] Serum or plasma total carbon dioxide measurement (moles/volume)Ordered By: Sunny Taylor on 07-21-2022 CO2 [Moles/Vol] 26.6 mmol/L 22.0-30.0 [facility] Serum or plasma urea nitroge n measurement (mass/volume)Ordered By: Sunny Taylor on 07-21-2022 Urea nitrogen [Mass/Vol] 8 mg/dL 9-23 [facility] WBC Auto (Bld) [#/Vol]Ordere d By: Sunny Taylor on 07-21-2022 WBC (Bld) [#/Vol] 4.3 10*3/uL 3.8-11.6 [facility] CHEMISTRYOrdered By: SYSTEM SYSTEM on 06-09-2022 Folate [...] Normal 21 - 31 mmol/L [facility] Cobalamin (Vitamin B12) [Mass/Vol] 291 pg/mL [...] 4.1 g/dL High 1.4 - 4.0 gm/dL [facility] Glucose [Mass/Vol] 92 mg/dL Normal 55 - 199 mg/dL [facility] [...] 12.9 ug/dL Invalid Interpretation Code [facility] Comment on above: Result Comment: Liang isol AM 6.2 - 19.4 Cortisol PM 2.3 - 11.9 Performed at: [facility] [address] [id number] PhD Santos Villareal CHEMISTRYOrdered By: SYSTEM SYSTEM [...] [facility] Ethanol [Mass/Vol] mg/dL Normal <=7mg/dL [facility] R emisol GFR/1.73 sq M.predicted among blacks MDRD (S/P/Bld) [Vol rate/Area] mL/min/1.73 m2 Normal >=59mL/min/ 1.73 m2 [facility] Chem S GFR/1.73 sq M.predicted among non-blacks MDRD (S/P/Bld) [Vol rate/Area] mL/min/1.73 m2 Normal >=59mL/min/ 1.73 m2 [facility] Chem S Globulin (S) [Mass/Vol] 4.4 g/dL High 1.4 - 4.0 gm/dL [facility] Glucose [Mass/Vol] 94 mg/dL Normal 55 - 199 mg/dL [facility] Potassium [Moles/Vol] 4.2 mmol/L Normal 3.5 - 5.3 mmol/L [facility] Protein [Mass/Vol] 7.3 g/dL Normal 6.0 - 7.8 gm/dL [facility] Sodium [Moles/Vol] 129 mmol/L Low 135 - 145 mmol/L [facility] Troponin I.cardiac [Mass/Vol] 9.00 pg/mL Low 10.10 - 27.10 pg/mL [facility] Urea nitrogen [Mass/Vol] 10 mg/dL Normal 5 - 21 mg/dL [facility] Urea nitrogen/Creatinine [Mass ratio] 14 mg/mg Normal 10 - 20 [facility] CHEMISTRYOrdered By: Karan cuenca on 05-09-2022 Natriuretic peptide B (Bld) [Mass/Vol] 87 pg/mL High 5 - 80 pg/mL [facility] COAGULATIONOrdered By: Martha Panda on 05-09-2022 [...] PM) Normal Negative [facility] UA Auto SS [place].plasma/[place]. RBC (Bld) [Mass ratio] 0-3 /HPF Normal 0-3/HPF [facility] UA A uto SS Nitrite Ql (U) Negative (05/09/22 10:28 PM) Normal Negative [facility] UA Auto SS pH (U) 7.0 *NA* (05/09/22 10:28 PM) Invalid Interpretation Code 5.0 - 9.0 [facility] UA Auto SS Protein (U) [Mass/Vol] Negative (05/09/22 10:28 PM) Normal Negative [facility] UA Auto SS Specific gravity (U) [Rel density] 1.010 *NA* (05/09/22 10:28 PM) Invalid Interpretation Code 1.005 - 1.030 [facility] UA Auto SS UA Spec Desc Clean Catch (05/09/22 10:28 PM) Normal [facility] UA Auto SS Urobilinogen Qn (U) [id number] {[place]'U}/dL Normal 0.0 - 1.0 EU/dL [facility] UA Auto SS WBC Auto Ql (U) Negative (05/09/22 10:28 PM) Normal Negative [facility] UA Auto SS WBC LM.HPF (Urine sed) [#/Area] 0-5 /HPF Normal 0-5/HPF [facility] UA Auto SS BLOOD BANKOrdered By: Iwona Verma on 12-13-2021 ABO/Rh Retype Interp Positive Invalid Interpretation Code [facility] BB Subsection CHEMISTRYOrdered By: SYSTEM SYSTEM on 12-13-2021 Anion gap [Moles/Vol] 11 mmol/L Normal 6 - 16 mEq/L [facility] Remisol Calcium [Mass/Vol] 8.4 mg/dL Low 8.9 - 11. 1 mg/dL [facility] Chloride [Moles/Vol] 99 mmol/L Low 101 - 1 11 mmol/L [facility] Remisol CO2 [Moles/Vol] 27 mmol/L Normal 21 - 31 mmol/L [facility] Remisol Creatinine [Mass/Vol] 0.6 mg/dL Normal 0.5 - 1.3 mg/dL [facility] Remisol GFR/1.73 sq M.predicted among blacks MDRD (S/P/Bld) [Vol rate/Area] mL/min/1.73 m2 Normal >=59mL/min/ 1.73 m2 [facility] Chem S GFR/1.73 sq M.predicted among non-blacks MDRD (S/P/Bld) [Vol rate/Area] mL/min/1.73 m2 Normal >=59mL/min/ 1.73 m2 [facility] Chem S Glucose [Mass/Vol] 97 mg/dL Normal [...] AM) Normal Negative [facility] UA Auto SS [place].plasma/[place]. RBC (Bld) [Mass ratio] 0-3 /HPF Normal [...] Urine (12/13/21 12:05 AM) Normal [facility] UA Auto SS Urobilinogen Qn (U) [id number] {[place]'U}/dL Normal 0.0 - 1.0 EU/dL [facility] UA Auto SS WBC Auto Ql (U) Negative (12/13/21 12:05 AM) Normal Negative [facility] UA Auto SS WBC LM.HPF (Urine sed) [#/Area] 0-5 /HPF Normal 0-5/HPF [facility] UA Auto SS BLOOD BANKOrdered By: Kimberly cordoba on 12-12-2021 ABO/Rh Interp Positive Invalid Interpretation Code [facility] BB Subsection ABSC Gel Interp Negative (12/12/21 10:41 PM) Normal [facility] BB Subsection CHEMISTRYOrdered By: SYSTEM SYSTEM on [...] 12-09-2021 Basophils (Bld) [#/Vol] 0.1 10*3/uL 0.0-0.2 [facility] Basophils/100 WBC Auto (Bld) Ordered By: Sunny Taylor on 12-09-2021 Basophils/100 WBC (Bld) 2.5 % [facility] Blood hemoglobin measurement (mass/volume)Ordered By: Sunny Taylor on 12-09-2021 Hemoglobin (Bld) [Mass/Vol] 12.9 g/dL 11.8-15.4 [facility] Blood leukocytes automated c ount (number/volume)Ordered By: Sunny Taylor on 12-09-2021 WBC (Bld) [#/Vol] 3.9 10*3/uL 4.5-11.0 [facility] Body fluid albumin measureme nt (mass/volume)Ordered By: Sunny Taylor on 12-09-2021 Albumin (Body fld) [Mass/Vol] 2.7 g/dL 3.2-5.5 [facility] Creatinine and Glomerular fi ltration rate.predicted panel (S/P/Bld)Ordered By: Sunny Taylor on 12-09-2021 Creatinine [Mass/Vol] 0.63 mg/dL 0.44-1.03 [facility] Eosinophils Auto (Bld) [#/Vo l]Ordered By: Sunny Taylor on 12-09-2021 Eosinophils (Bld) [#/Vol] 0.2 10*3/uL 0.0-0.45 [facility] Eosinophils/100 WBC Auto (Bl d)Ordered By: Sunny Taylor on 12-09-2021 Eosinophils/100 WBC (Bld) 4.3 % [facility] Erythrocyte distribution wid th Auto (RBC) [Ratio]Ordered By: Sunny Taylor on 12-09-2021 Erythrocyte distribution width (RBC) [Ratio] 12.7 % 11.9-15.3 [facility] Estimated glomerular filtrat ion rate (GFR) non- AmericanOrdered By: Sunny Taylor on 12-09-2021 GFR/1.73 sq M.predicted among non-blacks MDRD (S/P/Bld) [Vol rate/Area] > 60 mL/Min [facility] Globulin Calc (S) [Mass/Vol] Ordered By: Sunny Taylor on 12-09-2021 Globulin (S) [Mass/Vol] 4.5 g/dL [facility] Hematocrit Auto (Bld) [Volum e fraction]Ordered By: Sunny Taylor on 12-09-2021 Hematocrit (Bld) [Volume fraction] 37.1 % 34.0-46.4 [facility] Laboratory - Hematology and Cell countsOrdered By: Sunny Taylor on 12-09-2021 Nucleated RBC/100 WBC (Bld) [Ratio] 0.3 % 0-0.5 [facility] Lymphocytes Auto (Bld) [#/Vo l]Ordered By: Sunny Taylor on 12-09-2021 Lymphocytes (Bld) [#/Vol] 1.2 10*3/uL 1.00-4.8 [facility] Lymphocytes/100 WBC Auto (Bl d)Ordered By: Sunny Taylor on 12-09-2021 Lymphocytes/100 WBC (Bld) 31.4 % [facility] MCH Auto (RBC) [Entitic mass ]Ordered By: Sunny Taylor on 12-09-2021 MCH (RBC) [Entitic mass] 34.2 pg 24.7-34.3 [facility] MCHC Auto (RBC) [Mass/Vol]Or dered By: Sunny Taylor on 12-09-2021 MCHC (RBC) [Mass/Vol] 34.7 g/dL 32.0-35.0 [facility] MCV Auto (RBC) [Entitic vol] Ordered By: Sunny Taylor on 12-09-2021 MCV (RBC) [Entitic vol] 98.5 fL 80-100 [facility] Monocytes Auto (Bld) [#/Vol] Ordered By: Sunny Taylor on 12-09-2021 Monocytes (Bld) [#/Vol] 0.3 10*3/uL 0.0-0.8 [facility] Monocytes/100 WBC Auto (Bld) Ordered By: Sunny Taylor on 12-09-2021 Monocytes/100 WBC (Bld) 8.4 % [facility] Neutrophils Auto (Bld) [#/Vo l]Ordered By: Sunny Taylor on 12-09-2021 Neutrophils (Bld) [#/Vol] 2.1 10*3/uL 1.8-7.7 [facility] Neutrophils/100 WBC Auto (Bl d)Ordered By: Sunny Taylor on 12-09-2021 Neutrophils/100 WBC (Bld) 53.4 % [facility] No Panel InformationOrdered By: Sunny Taylor on 12-09-2021 Estimated GFR () > 60 mL/Min [facility] Comment on above: GFR estimated refere nce range: According to KDOQI guidelines, <60 ml/min/1.73m2 is sufficient to diagnose a patient with chronic kidney disease. Pharmacy Creatinine Clearance (Chem N/A [facility] Platelet mean volume Auto (B ld) [Entitic vol]Ordered By: Sunny Taylor on 12-09-2021 Platelet mean volume (Bld) [Entitic vol] 8.9 fL 6.3-10.7 [facility] Platelets Auto (Bld) [#/Vol] Ordered By: Sunny Taylor on 12-09-2021 Platelets (Bld) [#/Vol] 174 10*3/uL 150-450 [facility] Protein [Mass/volume] in Ser um or PlasmaOrdered By: Sunny Taylor on 12-09-2021 Protein [Mass/Vol] 7.2 g/dL 6.1-7.9 [facility] RBC Auto (Bld) [#/Vol]Ordere d By: Sunny Taylor on 12-09-2021 RBC (Bld) [#/Vol] 3.76 10*6/uL 3.60-5.00 [facility] Serum or plasma alanine robins otransferase measurement without P-5'-P (enzymatic activiOrdered By: Sunny Taylor on 12-09-2021 ALT No additional P-5'-P [Catalytic activity/Vol] 24 U/L 10-60 [facility] Serum or plasma albumin/glob ulin mass ratioOrdered By: Sunny Taylor on 12-09-2021 Albumin/Globulin [Mass ratio] 0.6 {ratio} [facility] Serum or plasma alkaline rolando sphatase measurement (enzymatic activity/volume)Ordered By: Sunny Taylor on 12-09-2021 ALP [Catalytic activity/Vol] 71 U/L 32-92 [facility] Serum or plasma aspartate am inotransferase measurement (enzymatic activity/volume)Ordered By: Sunny Taylor on 12-09-2021 AST [Catalytic activity/Vol] 41 U/L 10-42 [facility] Serum or plasma calcium saray urement (mass/volume)Ordered By: Sunny Taylor on 12-09-2021 Calcium [Mass/Vol] 8.5 mg/dL 8.2-10.2 [facility] Serum or plasma chloride van surement (moles/volume)Ordered By: Sunny Taylor on 12-09-2021 Chloride [Moles/Vol] 102 mmol/L 95-114 [facility] Serum or plasma glucose saray urement (mass/volume)Ordered By: Sunny Taylor on 12-09-2021 Glucose [Mass/Vol] 99 mg/dL 70-100 [facility] Comment on above: ADA recommended refe rence [...] on 12-09-2021 Potassium [Moles/Vol] 4.2 mmol/L 3.5-5.1 [facility] Serum or plasma sodium measu rement (moles/volume)Ordered By: Sunny Taylor on 12-09-2021 Sodium [Moles/Vol] 134 mmol/L 136-146 [facility] Serum or plasma total biliru bin measurement (mass/volume)Ordered By: Sunny Taylor on 12-09-2021 Bilirubin [Mass/Vol] 0.8 mg/dL 0.3-1.2 [facility] Serum or plasma total carbon dioxide measurement (moles/volume)Ordered By: Sunny Taylor on 12-09-2021 CO2 [Moles/Vol] 24.5 mmol/L 22.0-30.0 [facility] Serum or plasma urea nitroge n measurement (mass/volume)Ordered By: Sunny Taylor on 12-09-2021 Urea nitrogen [Mass/Vol] 9 mg/dL 04-30 [facility] Complete Blood Counton 07-15 Erythrocyte distribution width (RBC) [Ratio] 12.6 % Normal 11.0-15.0 [facility] Comment on above: Performed By: #### C BC #### [facility] [address], [place] [id number] Hematocrit (Bld) [Volume fraction] 42.2 % Normal 35.0-47.0 [facility] Comment on above: Performed By: #### C BC #### [facility] [address], [place] [id number] Hemoglobin (Bld) [Mass/Vol] 13.2 g/dL Normal 11.6-15.5 [facility] Comment on above: Performed By: #### C BC #### [facility] [address], [place] [id number] MCH (RBC) [Entitic mass] 34.5 pg High 27.0-33.0 [facility] Specialist Comment on above: Performed By: #### C BC #### [facility] [address], [place] [id number] MCHC (RBC) [Mass/Vol] 31.3 g/dL Low 32.0-36.0 [facility] Specialist Comment on above: Performed By: #### C BC #### [facility] [address], [place] [id number] MCV (RBC) [Entitic vol] 110 fL High 80-100 [facility] Specialist Comment on above: Performed By: #### C BC #### [facility] [address], [place] [id number] Platelet mean volume (Bld) [Entitic vol] 9.90 fL Normal 7.50-12.50 [facility] [place] [facility] Comment on above: Performed By: #### C BC #### [facility] [address] [place], [place] [id number] Platelets (Bld) [#/Vol] 227 10*3/uL Normal 140-400 [facility] Comment on above: Performed By: #### C BC #### [facility] [address] [place], [place] [id number] RBC (Bld) [#/Vol] 3.83 10*6/uL Low 3.90-5.20 [facility] Comment on above: Performed By: #### C BC #### [facility] [address], [place] [id number] RDW-SD 50.3 fL High 37.0-50.0 [facility] Comment on above: Performed By: #### C BC #### [facility] [address], [place] [id number] WBC (Bld) [#/Vol] 5.7 10*3/uL Normal 3.8-11.0 [facility] Comment on above: Performed By: #### C BC #### [facility] [address], [place] [id number] Q - LAUREN SCREEN IFA W/RFL TIT ER IFAon 07-10-2021 LAUREN SCREEN, IFA Positive Abnormal NEGATIVE [facility] Comment on above: Order Comment: [facility] performed at: Q, [facility], [address] [place] [address], [address] [place] [address], [phone], Log Feeder: Donavan Moser MD [facility] Date/Time: [facility] [...] indicated. For additional information, please refer to http://education.MiRTLE Medical/faq/[email or web address] (This link is being provided for informational/ educational purposes only.) Performed By: #### 1 0231A, ESR, %32406, TSH, 249X #### [facility] [address] [place] [address] Q - LAUREN TITER/PATTERNon LAUREN PATTERN Nuclear, Homogeneous Abnormal [facility] Specialist Comment on above: Order Comment: [facility] performed at: [employer], [employer] [facility], [address], [address] [place], [address], Log Feeder: Donavan Moser MD [facility] Date/Time: [facility] Results Received Date/Time: [facility] Reported Date/Time: FASTING: NO Result Comment: Homo geneous pattern is associated with systemic lupus erythematosus (SLE), drug-induced lupus and juvenile idiopathic arthritis. AC-1: Homogeneous International Consensus on LAUREN Patterns (https://doi.org/10.1515/hkot-5370-5955) Performed By: #### 1 0231A, ESR, %87022, TSH, 249X #### [facility] [address] [place] [address] LAUREN PATTERN Nuclear, Speckled Abnormal [facility] Specialist Comment on above: Order Comment: [facility] performed at: [facility], [address], [address] [place], [address], Log Feeder: Donavan Moser MD [facility] Date/Time: [facility] Results Received Date/Time: [facility] Reported Date/Time: FASTING: NO Result Comment: Spec kled pattern is associated with mixed connective tissue disease (MCTD), systemic lupus erythematosus (SLE), Sjogren's syndrome, dermatomyositis, and systemic sclerosis/polymyositis overlap. AC-2,4,5,29: Speckled International Consensus on LAUREN Patterns (https://doi.org/10.1515/derb-8185-4311) Performed By: #### 1 0231A, ESR, %71079, TSH, 249X #### [facility] [address] [place] [address] LAUREN TITER 1:80 High [facility] [place] [facility] Comment on above: Order Comment: [facility] performed at: [employer], [employer] [facility], [address], [address] [place] [address], [address] [place] [address], Log Feeder: Donavan Moser MD [facility] Date/Time: [facility] Results Received Date/Time: [facility] Reported Date/Time: FASTING: NO Result Comment: A lo w level LAUREN titer may be present in pre-clinical autoimmune diseases and normal individuals. Reference Range <1:40 Negative 1:40-1:80 Low Antibody Level >1:80 Elevated Antibody Level Performed By: #### 1 0231A, ESR, %84655, TSH, 249X #### [facility] [address] [place] [address] LAUREN TITER > OR = 1:1280 Abnormal [facility] Comment on above: Order Comment: [facility] performed at: [employer], [employer] [facility], [address] , [address] [place] [address], [address] [place] [address], Log Feeder: Donavan Moser MD [facility] Date/Time: [facility] Results Received Date/Time: [facility] Reported Date/Time: FASTING: NO Result Comment: Refe rence Range <1:40 Negative 1:40-1:80 Low Antibody Level >1:80 Elevated Antibody Level Performed By: #### 1 0231A, ESR, %86784, TSH, 249X #### [facility] [address] [place] [address] Q - COMPREHENSIVE METABOLIC PANEL W/EGFRon 07-10-2021 Albumin [Mass/Vol] 3.4 g/dL Low 3.6-5.1 [facility] Comment on above: Order Comment: [facility] performed at: [facility], [address] , [address] [place] [address], [address] [place] [address], Log Feeder: Donavan Moser MD [facility] Date/Time: [facility] Results Received Date/Time: [facility] Reported Date/Time: FASTING: NO Performed By: #### 1 0231A, ESR, %64225, TSH, 249X #### [facility] [address] [place] [address] Albumin/Globulin [Mass ratio] 0.9 {ratio} Low 1.0-2.5 [facility] Specialist Comment on above: Order Comment: [facility] performed at: [employer], [employer] [facility], [address] [place] [address], [address] [place] [address], [address] [place] [address], Log Feeder: Donavan Moser MD [facility] Date/Time: [facility] Results Received Date/Time: [facility] Reported Date/Time: FASTING: NO Performed By: #### 1 0231A, ESR, %38944, TSH, 249X #### [facility] [address] [place] [address] ALP [Catalytic activity/Vol] 76 U/L Normal 37-153 [facility] Specialist Comment on above: Order Comment: [facility] performed at: [employer], [employer] [facility], [address] [place] [address], [address] [place] [address], [address] [place] [address], Log Feeder: Donavan Moser MD [facility] Date/Time: [facility] Results Received Date/Time: [facility] Reported Date/Time: FASTING: NO Performed By: #### 1 0231A, ESR, %40521, TSH, 249X #### [facility] [address] [place] [address] ALT [Catalytic activity/Vol] 16 U/L Normal 6-29 [facility] Specialist Comment on above: Order Comment: [facility] performed at: [employer], [employer] [facility], [address] [place] [address], [address] [place] [address], [address] [place] [address], Log Feeder: Donavan Moser MD [facility] Date/Time: [facility] Results Received Date/Time: [facility] Reported Date/Time: FASTING: NO Performed By: #### 1 0231A, ESR, %63527, TSH, 249X #### [facility] [address] [place] [address] AST [Catalytic activity/Vol] 25 U/L Normal 10-35 [facility] Specialist Comment on above: Order Comment: [facility] performed at: [employer], [employer] [facility], [address] [place] [address], [address] [place] [address], [address] [place] [address], Log Feeder: Donavan Moser MD [facility] Date/Time: [facility] Results Received Date/Time: [facility] Reported Date/Time: FASTING: NO Performed By: #### 1 0231A, ESR, %34264, TSH, 249X #### [facility] [address] [place] [address] Bilirubin [Mass/Vol] 0.9 mg/dL Normal 0.2-1.2 [facility] Specialist Comment on above: Order Comment: [facility] performed at: [employer], [employer] [facility], [address] [facility], [address] [place] [address], [address] [place] [address], Log Feeder: Donavan Msoer MD [facility] Date/Time: [facility] Results Received Date/Time: [facility] Reported Date/Time: FASTING: NO Performed By: #### 1 0231A, ESR, %51728, TSH, 249X #### [facility] [address] [place] [address] BUN/CREA 20 NOT APPLICABLE Normal 6-22 [facility] Specialist Comment on above: Order Comment: [facility] performed at: [employer], [employer] [facility], [address] [facility], [address] [place] [address], [address] [place] [address], Log Feeder: Donavan Moser MD [facility] Date/Time: [facility] Results Received Date/Time: [facility] Reported Date/Time: FASTING: NO Performed By: #### 1 0231A, ESR, %49067, TSH, 249X #### [facility] [address] [place] [address] Calcium [Mass/Vol] 8.5 mg/dL Low 8.6-10.4 [facility] [place] [facility] Comment on above: Order Comment: [facility] performed at: [employer], [employer] [facility], [address] [facility], [address] [place] [address], [address] [place] [address], Log Feeder: Donavan Moser MD [facility] Date/Time: [facility] Results Received Date/Time: [facility] Reported Date/Time: FASTING: NO Performed By: #### 1 0231A, ESR, %51754, TSH, 249X #### [facility] [address] [place] [address] Chloride [Moles/Vol] 99 mmol/L Normal 98-110 [facility] Comment on above: Order Comment: [facility] performed at: [employer], [employer] [facility], [address] [facility], [address] [place] [address], [address] [place] [address], Log Feeder: Donavan Moser MD [facility] Date/Time: [facility] Results Received Date/Time: [facility] Reported Date/Time: FASTING: NO Performed By: #### 1 0231A, ESR, %10207, TSH, 249X #### [facility] [address] [place] [address] CO2 [Moles/Vol] 28 mmol/L Normal 20-32 [facility] Comment on above: Order Comment: [facility] performed at: [facility], [address] [facility], [address] [place] [address], [address] [place] [address], Log Feeder: Donavan Moser MD [facility] Date/Time: [facility] Results Received Date/Time: [facility] Reported Date/Time: FASTING: NO Performed By: #### 1 0231A, ESR, %13806, TSH, 249X #### [facility] [address] [place] [address] Creatinine [Mass/Vol] 0.61 mg/dL Normal 0.60-0.93 [facility] Comment on above: Order Comment: [facility] performed at: [facility], [address] [facility], [address] [place] [address], [address] [place] [address], Log Feeder: Donavan Moser MD [facility] Date/Time: [facility] Results Received Date/Time: [facility] Reported Date/Time: FASTING: NO Result Comment: For patients >49 years of age, the reference limit for Creatinine is approximately 13% higher for people identified as -Bahamian. Performed By: #### 1 0231A, ESR, %06381, TSH, 249X #### [facility] [address] [place] [address] eGFRAA 115 mL/min/1.73m2 Normal > OR = 60 [facility] Comment on above: Order Comment: [facility] performed at: [employer], [employer] [facility], [address] [place] [address], [address] [place] [address], [address] [place] [address], Log Feeder: Donavan Moser MD [facility] Date/Time: [facility] Results Received Date/Time: [facility] Reported Date/Time: FASTING: NO Performed By: #### 1 0231A, ESR, %59451, TSH, 249X #### [facility] [address] [place] [address] eGFRNAA 95 mL/min/1.73m2 Normal > OR = 60 [facility] Comment on above: Order Comment: [facility] performed at: [facility], [address] [place] [address], [address] [place] [address], [address] [place] [address], Log Feeder: Donavan Moser MD [facility] Date/Time: [facility] Results Received Date/Time: [facility] Reported Date/Time: FASTING: NO Performed By: #### 1 0231A, ESR, %94027, TSH, 249X #### [facility] [address] [place] [address] Globulin (S) [Mass/Vol] 3.8 g/dL High 1.9-3.7 N [facility] Comment on above: Order Comment: [facility] performed at: [employer], [employer] [facility], [address] [place] [address], [address] [place] [address], [address] [place] [address], Log Feeder: Donavan Moser MD [facility] Date/Time: [facility] Results Received Date/Time: [facility] Reported Date/Time: FASTING: NO Performed By: #### 1 0231A, ESR, %88809, TSH, 249X #### [facility] [address] [place] [address] Glucose [Mass/Vol] 89 mg/dL Normal 65-139 Jhonny crowley [place] [facility] Comment on above: Order Comment: [facility] performed at: [employer], [employer] [facility], [address] [place] [address], [address] [place] [address], [address] [place] [address], Log Feeder: Donavan Moser MD [facility] Date/Time: [facility] Results Received Date/Time: [facility] Reported Date/Time: FASTING: NO Result Comment: Non-fasting reference interval Performed By: #### 1 0231A, ESR, %04035, TSH, 249X #### [facility] [address] [place] [address] Potassium [Moles/Vol] 4.3 mmol/L Normal 3.5-5.3 Alec desai [place] [facility] Comment on above: Order Comment: [facility] performed at: [facility], [address] [place] [address], [address] [place] [address], [address] [place] [address], Log Feeder: Donavan Moser MD [facility] Date/Time: [facility] Results Received Date/Time: [facility] Reported Date/Time: FASTING: NO Performed By: #### 1 0231A, ESR, %68930, TSH, 249X #### [facility] [address] [place] [address] Protein [Mass/Vol] 7.2 g/dL Normal 6.1-8.1 Jhonny crowley [place] [facility] Comment on above: Order Comment: [facility] performed at: [facility], [address] [facility], [address] [place] [address], [address] [place] [address], Log Feeder: Donavan Moser MD [facility] Date/Time: [facility] Results Received Date/Time: [facility] Reported Date/Time: FASTING: NO Performed By: #### 1 0231A, ESR, %85176, TSH, 249X #### [facility] [address] [place] [address] Sodium [Moles/Vol] 135 mmol/L Normal 135-146 [facility] Specialist Comment on above: Order Comment: [facility] performed at: [facility], [address] [facility], [address] [place] [address], [address] [place] [address], Log Feeder: Donavan Moser MD [facility] Date/Time: [facility] Results Received Date/Time: [facility] Reported Date/Time: FASTING: NO Performed By: #### 1 0231A, ESR, %18069, TSH, 249X #### [facility] [address] [place] [address] Urea nitrogen [Mass/Vol] 12 mg/dL Normal 7-25 [facility] [place] [facility] Comment on above: Order Comment: [facility] performed at: [facility], [address] [facility], [address] [place] [address], [address] [place] [address], Log Feeder: Donavan Moser MD [facility] Date/Time: [facility] Results Received Date/Time: [facility] Reported Date/Time: FASTING: NO Performed By: #### 1 0231A, ESR, %28768, TSH, 249X #### [facility] [address] [place] [address] RBC Sedimentation Rateon ESR (Bld) [Velocity] 77 mm/h High < OR = 30 [facility] [place] [facility] Comment on above: Order Comment: [facility] performed at: [employer], [employer] [facility], [address], [address] [facility], [place], [address], Log Feeder: Donavan Moser MD [facility] Date/Time: [facility] Results Received Date/Time: [facility] Reported Date/Time: FASTING: NO Performed By: #### 1 0231A, ESR, %43855, TSH, 249X #### [facility] [address] [place] [address] TSHon 07-10-2021 TSH Qn 0.74 m[IU]/L Normal 0.40-4.50 [facility] Comment on above: Order Comment: [facility] performed at: [employer], [employer] [facility], [address], [address] [place], [address], Log Feeder: Donavan Moser MD [facility] Date/Time: [facility] Results Received Date/Time: [facility] Reported Date/Time: FASTING: NO Performed By: #### 1 0231A, ESR, %79833, TSH, 249X #### [facility] [address] [place] [address] [facility] Covid-19 PCR NOT DETECTED Normal NOT DETECTED [facility] Comment on above: Result Comment: This test is not yet approved or cleared by the [place] FDA. When there are no FDA-approved or cleared tests available, and other criteria are met, FDA can make tests available under an emergency access mechanism called an Emergency Use Authorization (EUA). The EUA for this test is supported by the Pur[place]ar of Health and Human Service's (HHS's) declaration [...] used). Performed By: #### C VDTBH #### [facility] [address] [place] [address] Domo Miller EUA Statement SEE BELOW Normal [facility] Comment on above: Result Comment: This test is not yet approved or cleared by the [place] FDA. When there are no FDA-approved or cleared tests available, and other criteria are met, FDA can make tests available under an emergency access mechanism called an Emergency Use Authorization (EUA). The EUA for this test is supported by the [employer] Comb[employer] Engineer of Health and Human Service?s (HHS?s) declaration [...] SARS-CoV-2. Performed By: #### C VDTBH #### [facility] [address] [place] [address] Domo Miller COVID-19 PCRon 03-19-2020 SARS-CoV-2, MARCY Not Detected Normal Not Detected [facility] Comment on above: Result Comment: This test was developed and its performance characteristics determined by [employer]. This test has not been FDA cleared [...] assay. Performed By: #### C VDPCR #### [facility] [address] [place] [address] Domo Miller Vital Signs Date Time Vital Sign Value Performing Clinician Facility 03-15-2025 14:37-0400 Body height 152.4 cm Edmond Ball DO Work Phone: [facility] 03-15-2025 14:37-0400 Body mass index (BMI) [Ratio] 36.8 kg/m2 Edmond Ball DO Work Phone: [facility] 03-15-2025 14:37-0400 Body weight 85.44 kg Edmond Ball DO Work Phone: [facility] 03-15-2025 14:37-0400 Diastolic blood pressure 81 mm[Hg] Edmond Ball DO Work Phone: [facility] 03-15-2025 14:37-0400 Heart rate 64 /min Edmond Ball DO Work Phone: [facility] 03-15-2025 14:37-0400 Respiratory rate 12 /min Edmond Ball DO Work Phone: [facility] 03-15-2025 14:37-0400 Systolic blood pressure 125 mm[Hg] Edmond Ball DO Work Phone: [facility] 07-12-2024 08:07-0500 Body temperature 98.24 [degF] Karlee Lue [facility] 07-12-2024 08:07-0500 Diastolic blood pressure 74 mm[Hg] Karlee Lue [facility] 07-12-2024 08:07-0500 Respiratory rate 16 /min Karlee Lue [facility] 07-12-2024 08:07-0500 Systolic blood pressure 128 mm[Hg] Karlee Lue [facility] 07-02-2024 13:43-0500 Blood Pressure Location CARON CARVAJAL [facility] 07-02-2024 13:43-0500 Diastolic blood pressure 61 mm[Hg] CARON VINCENTRY [facility] 07-02-2024 13:43-0500 Heart rate 65 /min CARON VINCENTRY [facility] 07-02-2024 13:43-0500 Respiratory rate 18 /min CARON CARVAJAL [facility] 07-02-2024 13:43-0500 Systolic blood pressure 102 mm[Hg] CARON CARVAJAL [facility] 03-02-2024 11:10-0400 Blood Pressure Location Gera Thomas [facility] 03-02-2024 11:10-0400 Diastolic blood pressure 90 mm[Hg] Gera Thomas [facility] 03-02-2024 11:10-0400 Heart rate 58 /min Gera Thomas [facility] 03-02-2024 11:10-0400 Respiratory rate 18 /min Gera Thomas [facility] 03-02-2024 11:10-0400 SaO2% (BldA) [Mass fraction] 94 % Gera Thomas [facility] 03-02-2024 11:10-0400 Systolic blood pressure 140 mm[Hg] Gera Thomas [facility] 09-28-2023 09:05-0500 Body height 154 cm Ant Portman DO Work Phone: [employer] 09-28-2023 09:05-0500 Body mass index (BMI) [Ratio] 37.3 kg/m2 Ant Kirk DO Work Phone: [facility] [employer] 09-28-2023 09:05-0500 Body temperature 98.01 [degF] Ant Kirk DO Work Phone: [facility] [employer] 09-28-2023 09:05-0500 Body weight 88.45 kg Ant Kirk DO Work Phone: [facility] 09-28-2023 09:05-0500 Diastolic blood pressure 64 mm[Hg] Ant Kirk DO Work Phone: [facility] [employer] 09-28-2023 09:05-0500 Heart rate 57 /min Ant Kirk DO Work Phone: [facility] [employer] 09-28-2023 09:05-0500 Respiratory rate 16 /min Ant Kirk DO Work Phone: [facility] 09-28-2023 09:05-0500 SaO2% (BldA) [Mass fraction] 96 % Ant Kirk DO Work Phone: [employer] 09-28-2023 09:05-0500 Systolic blood pressure 145 mm[Hg] Ant Kirk DO Work Phone: [facility] [employer] 09-15-2023 12:32-0500 Diastolic blood pressure 55 mm[Hg] Dennise Sol DO Work Phone: [facility] 09-15-2023 12:32-0500 Heart rate 56 /min Dennise Sol DO Work Phone: [facility] 09-15-2023 12:32-0500 Respiratory rate 20 /min Dennise Sol DO Work Phone: [employer] 09-15-2023 12:32-0500 SaO2% (BldA) [Mass fraction] 99 % Dennise Sol [employer] Work Phone: [facility] 09-15-2023 12:32-0500 Systolic blood pressure 126 mm[Hg] Dennise Sol [employer] Work Phone: [facility] 09-15-2023 10:29-0500 Body height 152.4 cm Dennise Sol [employer] Work Phone: [facility] [employer] 09-15-2023 10:29-0500 Body mass index (BMI) [Ratio] 37.11 kg/m2 Deninse Sol [employer] Work Phone: [facility] [employer] 09-15-2023 10:29-0500 Body temperature 98.29 [degF] Dennise Sol [employer] Work Phone: [facility] [employer] 09-15-2023 10:29-0500 Body weight 86.18 kg Dennise Sol [employer] Work Phone: [facility] [employer] [facility] 07-13-2023 11:29-0500 Heart rate 72 /min Reuben DREW [facility] 07-13-2023 11:29-0500 SaO2% (BldA) [Mass fraction] 95 % Reuben DREW [facility] 07-13-2023 11:27-0500 Diastolic blood pressure 79 mm[Hg] Reuben YOUNGLIN [facility] 07-13-2023 11:27-0500 Mean blood pressure 101 mm[Hg] Reuben CISNEROSSLIN [facility] 07-13-2023 11:27-0500 Systolic blood pressure 145 mm[Hg] Reubenmichelle CISNEROSSLIN [facility] 07-13-2023 11:27-0500 Body temperature 97.88 [degF] Reuben DREW [facility] 07-13-2023 10:07-0500 Hourly Rounding Reuben VIKI [facility] 07-13-2023 10:07-0500 Promise to Return Reuben VIKI [facility] 07-13-2023 09:00-0500 Hour[employer] Rounding Reuben VIKI [facility] 07-13-2023 09:00-0500 Promise to Return Reuben VIKI [facility] 07-13-2023 08:23-0500 Hour[employer] Rounding Reuben VIKI [facility] 07-13-2023 08:23-0500 Promise to Return Reuben VIKI [facility] 07-13-2023 07:35-0500 Heart rate 68 /min Reuben VIKI [facility] 07-13-2023 07:35-0500 SaO2% (BldA) [Mass fraction] 96 % Reuben VIKI [facility] 07-13-2023 07:35-0500 Diastolic blood pressure 69 mm[Hg] Reuben VIKI [facility] 07-13-2023 07:35-0500 Mean blood pressure 97 mm[Hg] Reuben VIKI [facility] [facility] 07-13-2023 07:35-0500 Systolic blood pressure 153 mm[Hg] Reuben VIKI [facility] 07-13-2023 07:34-0500 Body temperature 97.88 [degF] Reuben VIKI [facility] 07-13-2023 05:03-0500 Blood Pressure Location Reuben DREW [facility] 07-13-2023 05:03-0500 Body temperature 97.52 [degF] Reuben DREW [facility] 07-13-2023 05:03-0500 Diastolic blood pressure 64 mm[Hg] Reuben YOUNGLIN [facility] 07-13-2023 05:03-0500 Heart rate 69 /min Reuben DREW [facility] 07-13-2023 05:03-0500 Mean blood pressure 88 mm[Hg] Reuben DREW [facility] 07-13-2023 05:03-0500 Respiratory rate 20 /min Reuben DREW [facility] 07-13-2023 05:03-0500 SaO2% (BldA) [Mass fraction] 94 % Reuben DREW [facility] 07-13-2023 05:03-0500 Systolic blood pressure 137 mm[Hg] Reuben DREW [facility] 07-13-2023 03:08-0500 Respiratory rate 20 /min Reuben DREW [facility] 07-12-2023 19:48-0500 Mean blood pressure 99 mm[Hg] Reuben CISNEROSSLIN [facility] 07-12-2023 17:10-0500 Body temperature 98.24 [degF] Reuben CISNEROSSLIN [facility] 07-12-2023 05:25-0500 Body temperature 98.06 [degF] Reuben CISNEROSSLIN [facility] 07-12-2023 05:25-0500 Mean blood pressure 92 mm[Hg] Reuben VIKI [facility] 07-12-2023 05:25-0500 Respiratory rate 18 /min Reuben VIKI [facility] 07-11-2023 12:00-0500 Body temperature 97.7 [degF] Reuben VIKI [facility] 07-11-2023 04:10-0500 Blood Pressure Location Reuben VIKI [facility] 07-11-2023 04:10-0500 Mean blood pressure 100 mm[Hg] Reuben VIKI [facility] 07-11-2023 00:45-0500 Blood Pressure Location Reuben VIKI [facility] 07-10-2023 20:15-0500 Heart rate 86 /min Reuben VIKI [facility] 07-10-2023 19:12-0500 Respiratory rate 18 /min Reuben VIKI [facility] 07-10-2023 18:45-0500 Respiratory rate 18 /min Reuben VIKI [facility] 07-10-2023 17:25-0500 gluc 90 mg/dL Reuben VIKI [facility] 07-10-2023 17:25-0500 gluc Reuben VIKI [facility] 07-10-2023 16:55-0500 Heart rate 85 /min Reuben VIKI [facility] 05-17-2023 14:45-0400 Body height 152.4 cm Edmond Ball Other [employer] Other 05-17-2023 14:45-0400 Body mass index (BMI) [Ratio] 37.3 kg/m2 Edmond Ball Other [employer] Other 05-17-2023 14:45-0400 Body weight 86.64 kg Edmond Ball Other [employer] Other 05-17-2023 14:45-0400 Diastolic blood pressure 67 mm[Hg] Edmond Ball Other [employer] Other 05-17-2023 14:45-0400 Respiratory rate 12 /min Edmond Ball Other [employer] Other 05-17-2023 14:45-0400 Systolic blood pressure 152 mm[Hg] Edmond Ball Other [employer] Other 04-06-2023 11:00-0400 Body height 152.4 cm Edmond Ball Other [employer] Other 04-06-2023 11:00-0400 Body mass index (BMI) [Ratio] 36.56 kg/m2 Edmond Ball Other [employer] Other 04-06-2023 11:00-0400 Body weight 84.91 kg Edmond Ball Other [employer] Other 04-06-2023 11:00-0400 Diastolic blood pressure 74 mm[Hg] Edmond Ball Other [employer] Other 04-06-2023 11:00-0400 Respiratory rate 12 /min Edmond Ball Other [employer] Other 04-06-2023 11:00-0400 Systolic blood pressure 160 mm[Hg] Edmond Ball Other [facility] [employer] Other 03-14-2023 11:27-0400 Heart rate 59 /min Mbanefo OJUKWU [facility] 03-14-2023 11:27-0400 SaO2% (BldA) [Mass fraction] 95 % Mbanefo OJUKWU [facility] 03-14-2023 11:26-0400 Diastolic blood pressure 72 mm[Hg] Mbanefo OJUKWU [facility] 03-14-2023 11:26-0400 Mean blood pressure 86 mm[Hg] Mbanefo OJUKWU [facility] 03-14-2023 11:26-0400 Systolic blood pressure 113 mm[Hg] Mbanefo OJUKWU [facility] 03-14-2023 11:26-0400 Body temperature 98.24 [degF] Mbanefo OJUKWU [facility] 03-14-2023 11:00-0400 Blood Pressure Location Mbanefo OJUKWU [facility] 03-14-2023 11:00-0400 Respiratory rate 16 /min Mbanefo OJUKWU [facility] 03-14-2023 10:00-0400 Hourly Rounding Mbanefo OJUKWU [facility] 03-14-2023 10:00-0400 Promise to Return Mbanefo OJUKWU [facility] 03-14-2023 09:18-0400 Hourly Rounding Mbanefo OJUKWU [facility] 03-14-2023 09:18-0400 Promise to Return Mbanefo OJUKWU [facility] 03-14-2023 08:29-0400 Heart rate 57 /min Mbanefo OJUKWU [facility] 03-14-2023 08:29-0400 SaO2% (BldA) [Mass fraction] 96 % Mbanefo OJUKWU [facility] 03-14-2023 08:29-0400 Diastolic blood pressure 77 mm[Hg] Mbanefo OJUKWU [facility] 03-14-2023 08:29-0400 Mean blood pressure 99 mm[Hg] Mbanefo OJUKWU [facility] 03-14-2023 08:29-0400 Systolic blood pressure 142 mm[Hg] Mbanefo OJUKWU [facility] 03-14-2023 08:29-0400 Body temperature 97.88 [degF] Mbanefo OJUKWU [facility] 03-14-2023 08:00-0400 Hourly Rounding Mbanefo OJUKWU [facility] 03-14-2023 08:00-0400 Promise to Return Mbanefo OJUKWU [facility] 03-13-2023 20:00-0400 Body temperature 97.7 [degF] Mbanefo OJUKWU [facility] 03-13-2023 20:00-0400 Diastolic blood pressure 64 mm[Hg] Mbanefo OJUKWU [facility] 03-13-2023 20:00-0400 Heart rate 63 /min Mbanefo OJUKWU [facility] 03-13-2023 20:00-0400 SaO2% (BldA) [Mass fraction] 94 % Mbanefo OJUKWU [facility] 03-13-2023 20:00-0400 Systolic blood pressure 114 mm[Hg] Mbanefo OJUKWU [facility] 03-13-2023 15:20-0400 Mean blood pressure 100 mm[Hg] Mbanefo OJUKWU [facility] 03-12-2023 19:00-0400 Mean blood pressure 92 mm[Hg] Mbanefo OJUKWU [facility] 03-11-2023 05:00-0400 Body temperature 98.06 [degF] Mbanefo OJUKWU [facility] 03-11-2023 01:00-0400 Body temperature 98.06 [degF] Mbanefo OJUKWU [facility] 03-10-2023 15:54-0400 Blood Pressure Location Mbanefo OJUKWU [facility] 03-10-2023 15:54-0400 Body temperature 98.24 [degF] Mbanefo OJUKWU [facility] 03-10-2023 15:54-0400 Heart rate 61 /min Mbanefo OJUKWU [facility] 03-10-2023 15:54-0400 Respiratory rate 17 /min Mbanefo OJUKWU [facility] 03-10-2023 14:45-0400 Mean blood pressure 115 mm[Hg] Mbanefo OJUKWU [facility] 03-10-2023 14:45-0400 Respiratory rate 17 /min Mbanefo OJUKWU [facility] 03-10-2023 13:45-0400 Mean blood pressure 96 mm[Hg] Mbanefo OJUKWU [facility] 03-10-2023 13:45-0400 Respiratory rate 16 /min Mbanefo OJUKWU [facility] 03-10-2023 12:45-0400 Respiratory rate 15 /min Mbanefo OJUKWU [facility] 03-10-2023 11:48-0400 Heart rate 61 /min Mbanefo OJUKWU [facility] 03-10-2023 11:33-0400 gluc 109 mg/dL Mbanefo OJUKWU [facility] 03-10-2023 11:33-0400 gluc Mbanefo OJUKWU [facility] 03-10-2023 11:22-0400 Heart rate 71 /min Mbanefo OJUKWU [facility] 01-19-2023 12:38-0400 Body weight 84.5 kg Quiana Waterman APRN.[employer] HATCHERY MANAGER Work Phone: [facility] 01-19-2023 12:38-0400 Diastolic blood pressure 81 mm[Hg] Quiana Waterman APRN.POULTRY HATCHERY MANAGER Work Phone: [facility] 01-19-2023 12:38-0400 Heart rate 54 /min Quiana Waterman APRN.POULTRY HATCHERY MANAGER Work Phone: [facility] 01-19-2023 12:38-0400 Systolic blood pressure 160 mm[Hg] Quiana Waterman APRN.POULTRY HATCHERY MANAGER Work Phone: [facility] 09-13-2022 15:30-0500 Body height 152.4 cm Edmond Ball Other [employer] Other 09-13-2022 15:30-0500 Body mass index (BMI) [Ratio] 36.24 kg/m2 Edmond Ball Other [employer] Other 09-13-2022 15:30-0500 Body weight 84.19 kg Edmond Ball Other [employer] Other 09-13-2022 15:30-0500 Diastolic blood pressure 74 mm[Hg] Edmond Ball Other [employer] Other 09-13-2022 15:30-0500 Respiratory rate 12 /min Edmond Ball Other [employer] Other 09-13-2022 15:30-0500 Systolic blood pressure 122 mm[Hg] Edmond Ball Other [employer] Other 05-12-2022 15:28-0400 Body temperature 98.24 [degF] Reuben DREW [facility] 05-12-2022 15:28-0400 Diastolic blood pressure 58 mm[Hg] Reuben YOUNGLIN [facility] 05-12-2022 15:28-0400 Heart rate 68 /min Reuben DREW [facility] 05-12-2022 15:28-0400 Mean blood pressure 79 mm[Hg] Reuben CISNEROSSLIN [facility] 05-12-2022 15:28-0400 SaO2% (BldA) [Mass fraction] 95 % Reuben CISNEROSSLIN [facility] 05-12-2022 15:28-0400 Systolic blood pressure 122 mm[Hg] Reuben VIKI [facility] 05-12-2022 14:46-0400 Diastolic blood pressure 78 mm[Hg] Reuben VIKI [facility] 05-12-2022 14:46-0400 Heart rate 82 /min Reuben VIKI [facility] 05-12-2022 14:46-0400 Mean blood pressure 97 mm[Hg] Reuben VIKI [facility] 05-12-2022 14:46-0400 Respiratory rate 16 /min Reuben VIKI [facility] 05-12-2022 14:46-0400 Systolic blood pressure 135 mm[Hg] Reuben VIKI [facility] 05-12-2022 13:00-0400 Hourly Rounding Reuben VIKI [facility] 05-12-2022 13:00-0400 Promise to Return Reuben VIKI [facility] 05-12-2022 12:00-0400 Hourly Rounding Reuben VIKI [facility] 05-12-2022 12:00-0400 Promise to Return Reuben VIKI [facility] 05-12-2022 11:00-0400 Blood Pressure Location Reuben VIKI [facility] 05-12-2022 11:00-0400 Body temperature 99.68 [degF] Reuben VIKI [facility] 05-12-2022 11:00-0400 BP/Pulse Patient Position Reuben VIKI [facility] 05-12-2022 11:00-0400 Diastolic blood pressure 67 mm[Hg] Reubenmichelle CISNEROSSLIN [facility] 05-12-2022 11:00-0400 Heart rate 61 /min Reuben VIKI [facility] 05-12-2022 11:00-0400 Hourly Rounding Reubenmichelle CISNEROSSLIN [facility] 05-12-2022 11:00-0400 Mean blood pressure 83 mm[Hg] Reuben VIKI [facility] 05-12-2022 11:00-0400 Promise to Return Reubenmichelle CISNEROSSLIN [facility] 05-12-2022 11:00-0400 Respiratory rate 18 /min Reuebnmichelle CISNEROSSLIN [facility] 05-12-2022 11:00-0400 Systolic blood pressure 116 mm[Hg] Reuben VIKI [facility] 05-12-2022 10:00-0400 Mean blood pressure 82 mm[Hg] Reuben VIKI [facility] 05-12-2022 07:53-0400 Heart rate 64 /min Reubenmichelle CISNEROSSLIN [facility] 05-12-2022 07:00-0400 Body temperature 98.06 [degF] Reuben VIKI [facility] 05-12-2022 07:00-0400 SaO2% (BldA) [Mass fraction] 94 % Reuben VIKI [facility] 05-12-2022 06:48-0400 Heart rate 69 /min Reuben VIKI [facility] 05-12-2022 04:00-0400 SaO2% (BldA) [Mass fraction] 99 % Reuben CISNEROSSLIN [facility] 05-11-2022 20:39-0400 Mean blood pressure 81 mm[Hg] Reuben CISNEROSSLIN [facility] 05-11-2022 17:14-0400 Blood Pressure Location Reubenmichelle CISNEROSSLIN [facility] 05-11-2022 17:14-0400 BP/Pulse Patient Position Reuben CISNEROSSLIN [facility] 05-11-2022 17:14-0400 Mean blood pressure 90 mm[Hg] Reuben CISNEROSSLIN [facility] 05-11-2022 08:21-0400 Heart rate 76 /min Reuben CISNEROSSLIN [facility] 05-10-2022 02:27-0400 Respiratory rate 11 /min Reubenmichelle CISNEROSSLIN [facility] 05-10-2022 02:21-0400 Respiratory rate 15 /min Reubenmichelle CISNEROSSLIN [facility] 05-09-2022 21:00-0400 gluc 93 mg/dL Reubenmichelle CISNEROSSLIN [facility] 05-09-2022 21:00-0400 gluc Reubenmichelle CISNEROSSLIN [facility] 12-15-2021 10:38-0400 Diastolic blood pressure 66 mm[Hg] Juaquin Owen [facility] 12-15-2021 10:38-0400 Mean blood pressure 92 mm[Hg] Juaquin Owen [facility] 12-15-2021 10:38-0400 Systolic blood pressure 143 mm[Hg] Juaquin Owen [facility] 12-15-2021 10:30-0400 Blood Pressure Location Juaquin Owen [facility] 12-15-2021 10:30-0400 Diastolic blood pressure 64 mm[Hg] Juaquin Owen [facility] 12-15-2021 10:30-0400 Heart rate 65 /min Juaquin Owen [facility] 12-15-2021 10:30-0400 Respiratory rate 18 /min Juaquin Owen [facility] 12-15-2021 10:30-0400 SaO2% (BldA) [Mass fraction] 98 % Juaquin Owen [facility] 12-15-2021 10:30-0400 Systolic blood pressure 144 mm[Hg] Juaquin Owen [facility] 12-13-2021 14:00-0400 Body temperature 98.96 [degF] Steffen Castle [facility] 12-13-2021 14:00-0400 Heart rate 80 /min Steffen Castle [facility] 12-13-2021 14:00-0400 Mean blood pressure 89 mm[Hg] Steffen Castle [facility] 12-13-2021 14:00-0400 Respiratory rate 10 /min Steffen Castle [facility] 12-13-2021 11:05-0400 Hourly Rounding Steffen Castle [facility] 12-13-2021 11:05-0400 Promise to Return Steffen Castle [facility] 12-13-2021 10:22-0400 Hourly Rounding Steffen Castle [facility] 12-13-2021 10:22-0400 Promise to Return Steffen Castle [facility] 12-13-2021 09:17-0400 Hourly Rounding Steffen Castle [facility] 12-13-2021 09:17-0400 Promise to Return Steffen Castle [facility] 12-13-2021 08:46-0400 SaO2% (BldA) [Mass fraction] 97 % Steffen Castle [facility] 12-13-2021 08:10-0400 Diastolic blood pressure 68 mm[Hg] Steffen Castle [facility] 12-13-2021 08:10-0400 Heart rate 70 /min Steffen Castle [facility] 12-13-2021 08:10-0400 Systolic blood pressure 145 mm[Hg] Steffen Castle [facility] 12-13-2021 07:05-0400 Body temperature 98.06 [degF] Steffen Castle [facility] 12-13-2021 07:05-0400 Diastolic blood pressure 68 mm[Hg] Steffen Castle [facility] 12-13-2021 07:05-0400 Heart rate 70 /min Steffen Castle [facility] 12-13-2021 07:05-0400 Mean blood pressure 93 mm[Hg] Steffen Castle [facility] 12-13-2021 07:05-0400 SaO2% (BldA) [Mass fraction] 96 % Steffen Castle [facility] 12-13-2021 07:05-0400 Systolic blood pressure 145 mm[Hg] Steffen Castle [facility] 12-13-2021 03:45-0400 Blood Pressure Location Steffen Castle [facility] 12-13-2021 03:45-0400 Body temperature 97.88 [degF] Steffen Castle [facility] 12-13-2021 03:45-0400 Diastolic blood pressure 73 mm[Hg] Steffen Castle [facility] 12-13-2021 03:45-0400 Heart rate 68 /min Steffen Castle [facility] 12-13-2021 03:45-0400 Respiratory rate 16 /min Steffen Castle [facility] 12-13-2021 03:45-0400 SaO2% (BldA) [Mass fraction] 96 % Steffen Castle [facility] 12-13-2021 03:45-0400 Systolic blood pressure 156 mm[Hg] Steffen Castle [facility] 12-13-2021 03:00-0400 Heart rate 71 /min Steffen Castle [facility] 12-13-2021 03:00-0400 Mean blood pressure 96 mm[Hg] Steffen Castle [facility] 12-13-2021 03:00-0400 Respiratory rate 11 /min Steffen Castle [facility] 12-13-2021 01:00-0400 Mean blood pressure 71 mm[Hg] Steffen Castle [facility] 12-13-2021 01:00-0400 Respiratory rate 12 /min Steffen Castle [facility] 12-12-2021 22:45-0400 Heart rate 87 /min Steffen Castle [facility] 12-12-2021 22:45-0400 Respiratory rate 18 /min Steffen Castle [facility] 12-12-2021 22:30-0400 Heart rate 71 /min Steffen Castle [facility] 12-12-2021 22:30-0400 Respiratory rate 20 /min Steffen Castle [facility] Encounters Encounter Date Encounter Type Care Provider Facility Start: 04-05-2025 End: 04-05-2025 ambulatory Edmnod Pacheco Facility:[facility] Start: 04-05-2025 Non-patient / Non-visit Edmond jorge DO -[facility] Work Phone: Start: 03-29-2025 Non-patient / Non-visit Tiffanie Torres CMA [facility] Work Phone: Start: 03-27-2025 End: 03-27-2025 Refill Chaparro Yarbrough OD Work Phone: Ophthalmology Comment on above: Refill Request Start: 03-27-2025 [facility] Start: 03-25-2025 [facility] Start: 03-24-2025 End: 03-24-2025 ambulatory Edmond Pacheco DO Work Phone: [facility] Work Phone: Start: 03-24-2025 End: 03-24-2025 Departed Referred Sunny Ocampo PA-C -[facility] Start: 03-24-2025 Non-patient / Non-visit Sheldon Ocampo PA-C -[facility] Work Phone: Start: 03-24-2025 End: 03-25-2025 Clinisync Result Encounter Sunny WALKER Work Phone: [facility] Unsolicited Start: 03-24-2025 End: 03-25-2025 Clinisync Result Encounter Sunny WALKER Work Phone: [facility] Unsolicited Start: 03-24-2025 End: 03-25-2025 External Result Encounter Sunny WALKER Work Phone: [facility] Unsolicited Start: 03-15-2025 End: 03-15-2025 ambulatory Edmond Ball DO Work Phone: [facility] Work Phone: Start: 03-15-2025 End: 03-15-2025 Patient encounter procedure Edmond Pacheco DO -[facility] Work Phone: Start: 03-13-2025 Patient encounter procedure Edmond Pacheco DO Work Phone: [facility] Start: 02-28-2025 End: 02-28-2025 Patient encounter procedure Sunny Taylor MD -[facility] [address] Work Phone: Start: 02-28-2025 End: 02-28-2025 ambulatory Edmond Ball DO Work Phone: [facility] Work Phone: Start: 10-08-2024 End: 10-08-2024 ambulatory DOUG CARVAJAL Facility:[facility] [place] Start: 10-08-2024 End: 10-08-2024 Patient encounter procedure CARON CARVAJAL [facility] Start: 07-12-2024 ambulatory Karlee M. Lue Facility:[facility] Start: 07-12-2024 End: 07-12-2024 Patient encounter procedure Karlee M. Lue [facility] Start: 07-11-2024 ambulatory Karlee M. Lue Facility:[facility] [place] Start: 07-04-2024 End: 07-04-2024 ambulatory PA-C CARON Aniya CARVAJAL [facility] Start: 07-04-2024 End: 07-04-2024 Patient encounter procedure CARON Aniya VINCENTRY [facility] Start: 07-02-2024 End: 07-02-2024 ambulatory PA-C CARONBARRETT CARVAJAL [facility] Start: 07-02-2024 End: 07-02-2024 Lab Drop off CARONBARRETT CARVAJAL [facility] Start: 07-02-2024 End: 07-02-2024 ambulatory PA-C CARONBARRETT CARVAJAL Facility:[facility] Start: 07-02-2024 End: 07-02-2024 Patient encounter procedure CARONBARRETT CARVAJAL [facility] Start: 06-29-2024 End: 06-29-2024 ambulatory EDMOND BALL [facility] Start: 06-29-2024 End: 06-29-2024 Lab Drop off EDMOND BALL [facility] Start: 06-18-2024 End: 06-18-2024 ambulatory EDMOND BALL [facility] Start: 06-18-2024 End: 06-18-2024 Lab Drop off EDMOND BALL [facility] Start: 05-30-2024 End: 05-30-2024 ambulatory EDMOND BALL [facility] Start: 05-30-2024 End: 05-30-2024 Lab Drop off EDMOND BALL [facility] Start: 05-25-2024 ambulatory THAI PATEL Facility:[facility] [place] Start: 05-15-2024 End: 05-15-2024 ambulatory EDMOND PACHECO [facility] Start: 05-15-2024 End: 05-15-2024 Lab Drop off EDMOND PACHECO [facility] Start: 05-04-2024 End: 05-04-2024 ambulatory EDMOND PACHECO [facility] Start: 05-04-2024 End: 05-04-2024 Lab Drop off EDMOND PACHECO [facility] Start: 03-30-2024 End: 03-30-2024 Pre-admission assessment Gera Thomas [facility] Start: 03-14-2024 End: 03-14-2024 ambulatory DOUG Thomas [facility] Start: 03-14-2024 End: 03-14-2024 Patient encounter procedure Gera Thomas [facility] Start: 03-09-2024 Refill Chaparro mccray OD Work Phone: Ophthalmology Comment on above: Refill Request Start: 03-02-2024 End: 03-02-2024 ambulatory THAI KHAN [facility] Start: 03-02-2024 End: 03-02-2024 Patient encounter procedure Gera Thomas [facility] Start: 03-02-2024 End: 03-02-2024 ambulatory THAI PATEL [facility] Start: 03-02-2024 End: 03-02-2024 Patient encounter procedure Gera Thomas [facility] Start: 01-12-2024 End: 01-12-2024 Emergency department patient visit [facility] Start: 12-21-2023 End: 12-21-2023 Emergency department patient visit THAI Z PATEL [facility] Start: 11-23-2023 End: 11-23-2023 ambulatory DO Edmond Pacheco Work Phone: [facility] Work Phone: Start: 11-23-2023 End: 11-23-2023 Patient encounter procedure DO Edmond Pacheco Work Phone: [facility] [address] Work Phone: Start: 10-21-2023 End: 10-21-2023 Emergency department patient visit THAI Lombardo PATEL [facility] Start: 09-28-2023 End: 09-28-2023 Emergency department patient visit Ant Kirk DO Work Phone: [facility] Comment on above: Fall, initial encoun ter (Primary Dx) Start: 09-15-2023 End: 09-15-2023 Emergency department patient visit Dennise Sol DO Work Phone: [facility] Comment on above: Unwitnessed fall (Pr imary Dx) Start: 09-07-2023 End: 09-07-2023 ambulatory ROJAS BROWN Facility:[facility] Start: 08-27-2023 End: 08-31-2023 ambulatory Alex Bhatti [facility] Start: 08-19-2023 End: 08-19-2023 ambulatory Edmond Pacheco Other [employer] Other Start: 08-19-2023 Telephone encounter Edmond CONRAD [facility] Start: 08-16-2023 End: 08-16-2023 ambulatory Edmond Pacheco Other [employer] Other Start: 08-16-2023 Telephone encounter Edmond CONRAD [facility] Start: 07-21-2023 End: 07-21-2023 ambulatory Chaparro Hanna Facility:CD:[id number] Start: 07-21-2023 End: 07-21-2023 Off-Site [facility] Start: 07-20-2023 End: 07-20-2023 ambulatory Edmond Pacheco Other [employer] [facility] [employer] Other Start: 07-20-2023 Telephone encounter Edmond CONRAD [facility] Start: 07-20-2023 End: 07-22-2023 Evaluation and management of inpatient Inderjit ASHRAF [facility] Start: 07-15-2023 End: 07-15-2023 ambulatory Inderjit ASHRAF Facility:CD:[id number] Start: 07-15-2023 End: 07-15-2023 Off-Site [facility] Start: 07-13-2023 End: 07-22-2023 ambulatory [place]derjit PASCALE [place] Start: 07-10-2023 End: 07-13-2023 ambulatory Austyn Sumnerdict [place] Start: 07-10-2023 End: 07-13-2023 Observation Reuben DREW [facility] Start: 07-08-2023 End: 07-16-2023 Pre-admission assessment EDMOND PACHECO [facility] Start: 06-24-2023 Telephone encounter Edmond CONRAD Stacey [facility] Start: 06-24-2023 End: 06-24-2023 ambulatory EDMOND PACHECO [facility] [employer] Other Start: 06-24-2023 End: 06-24-2023 Patient encounter procedure EDMOND PACHECO [facility] Start: 06-22-2023 End: 06-22-2023 ambulatory Edmond Pacheco Other [employer] Other Start: 06-22-2023 Telephone encounter Edmond CONRAD [facility] Start: 06-21-2023 Telephone encounter Edmond Ball FP [facility] Start: 06-21-2023 End: 06-21-2023 ambulatory EDMOND BALL [facility] [employer] Other Start: 06-21-2023 End: 06-21-2023 Lab Drop off EDMOND BALL [facility] Start: 06-20-2023 End: 06-20-2023 ambulatory Edmond Ball Other [employer] Other Start: 06-20-2023 Telephone encounter Edmond Ball FP [facility] Start: 05-17-2023 End: 05-17-2023 ambulatory Edmond Ball Other [employer] Other Start: 05-17-2023 Office outpatient vi sit 25 minutes Edmond Ball [facility] Start: 05-16-2023 End: 05-16-2023 ambulatory Edmond Ball Other [employer] Other Start: 05-16-2023 Telephone encounter Edmond Ball [facility] Start: 05-13-2023 End: 05-13-2023 ambulatory Edmond Ball Other [employer] Other Start: 05-13-2023 Telephone encounter Edmond Ball [facility] Start: 05-11-2023 Telephone encounter Edmond Ball [facility] Start: 05-11-2023 End: 05-11-2023 ambulatory EDMOND BALL [place] [employer] Other Start: 05-11-2023 End: 05-11-2023 Lab Drop off EDMOND BALL [facility] Start: 05-06-2023 End: 05-06-2023 ambulatory Edmond Ball Other [employer] Other Start: 05-06-2023 Telephone encounter Edmond Ball [facility] Start: 05-05-2023 End: 05-05-2023 ambulatory Edmond Ball Other [employer] Other Start: 05-05-2023 Telephone encounter Edmond Ball [facility] Start: 05-03-2023 End: 05-03-2023 ambulatory Edmond Ball Other [employer] Other Start: 05-03-2023 Telephone encounter Edmond Ball [facility] Start: 04-26-2023 End: 04-26-2023 ambulatory Edmond Ball Other [employer] Other Start: 04-26-2023 Telephone encounter Edmond Ball [facility] Start: 04-06-2023 End: 04-06-2023 ambulatory Edmond Ball Other [employer] Other Start: 04-06-2023 Office outpatient vi sit 25 minutes Edmond Ball [facility] Start: 04-05-2023 End: 04-05-2023 ambulatory DO Edmond Ball Work Phone: [facility] Work Phone: Start: 04-05-2023 End: 04-05-2023 Patient encounter procedure DO Edmond Ball Work Phone: [facility] [address] Work Phone: Start: 03-31-2023 End: 03-31-2023 ambulatory Edmond Ball Other [employer] Other Start: 03-31-2023 Telephone encounter Edmond Ball [facility] Start: 03-30-2023 Telephone encounter Edmond Ball [facility] Start: 03-30-2023 End: 03-30-2023 ambulatory EDMOND BALL [facility] [employer] Other Start: 03-30-2023 End: 03-30-2023 Lab Drop off EDMOND BALL [facility] Start: 03-24-2023 End: 03-24-2023 ambulatory HATCHERY SUPERVISOR-BC Nan Gambino Facility:[id number] Start: 03-24-2023 End: 03-24-2023 Off-Site [facility] Start: 03-16-2023 End: 03-16-2023 ambulatory Inderjit ASHRAF Facility:[id number] Start: 03-16-2023 End: 03-16-2023 Off-Site [facility] Start: 03-10-2023 End: 03-14-2023 Observation Johncrystal HARPER [facility] Start: 02-14-2023 End: 02-14-2023 ambulatory Edmond Pacheco Other [facility] [employer] Other Start: 02-14-2023 Telephone encounter Edmond Pacheco [facility] Start: 02-07-2023 Telephone encounter Quiana Waterman PRODUCT SUPPORT TECHNICIAN.POULTRY HATCHERY MANAGER Work Phone: Neurology Comment on above: Results (Pt daughter is requesting a copy of report); Automobile Sales Consultant - Other Appointment (Returne d call and gave Fax Number to Dr. Tobi Pacheco); Automobile Sales Consultant - Other Start: 01-28-2023 Telephone encounter Yari MCKINLEYW Work Phone: Neurology Comment on above: Automobile Sales Consultant - O ther Start: 01-20-2023 End: 01-20-2023 ambulatory DO Edmond Pacheco Work Phone: [facility] Work Phone: Start: 01-20-2023 End: 01-20-2023 Patient encounter procedure DO Edmond Pacheco Work Phone: [facility] [address] Work Phone: Start: 01-19-2023 End: 01-19-2023 ambulatory QUIANA WATERMAN Facility:[facility] Start: 01-19-2023 End: 01-19-2023 Patient encounter procedure Quiana Trip Eros PRODUCT SUPPORT TECHNICIAN.POULTRY HATCHERY MANAGER Work Phone: Neurology Comment on above: Multifactorial demen tia (HCC) (Primary Dx); Alcohol abuse; Visual hallucinations; NAWAF (obstructive sleep apnea) Start: 12-31-2022 End: 09-20-2023 Recurring Michael Rodriguez [facility] Start: 12-18-2022 End: 12-18-2022 ambulatory Edmond Pacheco Other [employer] Other Start: 12-18-2022 Telephone encounter Edmond Pacheco [place] [facility] Start: 12-17-2022 End: 12-17-2022 ambulatory Edmond Pacheco Other [employer] Other Start: 12-17-2022 Telephone encounter Edmond Pacheco [place] [facility] Start: 12-17-2022 End: 12-17-2022 Patient encounter procedure EDMOND PACHECO [facility] Start: 10-19-2022 End: 10-19-2022 ambulatory Edmond Pacheco Other [employer] Other Start: 10-19-2022 Telephone encounter Edmond Pacheco [facility] Start: 10-12-2022 End: 10-12-2022 ambulatory Edmond Junior Other [employer] Other Start: 10-12-2022 Nursing evaluation o f patient and report Edmond Pacheco [facility] Start: 10-11-2022 End: 10-11-2022 ambulatory Edmond Ball Other [employer] Other Start: 10-11-2022 Office outpatient vi sit 15 minutes Edmond Junior [facility] Start: 09-23-2022 End: 09-23-2022 ambulatory NON STAFF [facility] Work Phone: Start: 09-23-2022 End: 09-23-2022 Patient encounter procedure [facility] [address] Work Phone: Start: 09-13-2022 End: 09-13-2022 ambulatory Edmond Pacheco Other [employer] Other Start: 09-13-2022 Office outpatient vi sit 25 minutes Edmond Pacheco [facility] Start: 08-27-2022 End: 08-27-2022 ambulatory Edmond Pacheco Other [employer] Other Start: 08-27-2022 Telephone encounter Edmond Pacheco [facility] Start: 08-26-2022 End: 08-26-2022 Patient encounter procedure Michael Rodriguez [facility] Start: 08-06-2022 Refill Chaparro mccray OD Work Phone: Ophthalmology Comment on above: Refill Request Start: 07-21-2022 End: 07-21-2022 ambulatory NON STAFF [facility] Work Phone: Start: 07-21-2022 End: 07-21-2022 Patient encounter procedure [facility] [address] Start: 07-05-2022 Pre-procedure evalua tion check Edmond Pacheco Other [employer] Other Start: 06-09-2022 End: 06-09-2022 Patient encounter procedure Austyn Campos [facility] Start: 06-01-2022 Refill Chaparro mccray OD Work Phone: Ophthalmology Comment on above: Refill Request Start: 05-24-2022 End: 06-02-2022 Pre-admission assessment Michael Rodriguez [facility] Start: 05-09-2022 End: 05-12-2022 Observation Reuben DREW [facility] Start: 02-23-2022 End: 02-23-2022 Patient encounter procedure Kimmie Morgan [facility] Start: 01-27-2022 End: 01-27-2022 Patient encounter procedure Kimmie Morgan [facility] Start: 01-26-2022 End: 01-26-2022 Patient encounter procedure Juaquin Owen [facility] Start: 01-05-2022 End: 01-05-2022 Patient encounter procedure MD Luciano Taylor Work Phone: [facility] Start: 12-15-2021 End: 12-15-2021 Patient encounter procedure Juaquin Owen [facility] Start: 12-12-2021 End: 12-13-2021 Observation Steffen Castle [facility] Start: 12-09-2021 End: 12-09-2021 Patient encounter procedure MD Luciano Taylor Work Phone: [facility] [address] Start: 11-17-2021 End: 11-17-2021 Patient encounter procedure EDMOND PACHECO [facility] Start: 11-04-2021 End: 11-04-2021 Patient encounter procedure EDMOND PACHECO [facility] Start: 07-18-2020 End: 07-19-2020 Patient encounter procedure EDMOND PACHECO Facility:[facility] Start: 03-18-2020 End: 03-19-2020 Patient encounter procedure EDMOND PACHECO Facility:[facility] Start: 08-22-2019 Adult health examination Wallace Pacheco Other [employer] Other Start: 06-20-2019 Gynecological examin ation normal Edmond Pacheco Other [employer] Other Procedures Date Procedure Procedure Detail Performing Clinician Start: 03-24-2025 Culture bacterial qu anttative colony count urine Sunny WALKER Work Phone: Start: 03-24-2025 URINE CULTURE - [facility] Ma tthew Aryan WALKER Work Phone: Start: 03-24-2025 End: 03-24-2025 ECG 12-LEAD Sunny WALKER Work Phone: Start: 03-24-2025 Urine culture Edmond Pacheco DO Work Phone: Start: 09-15-2023 Ecg routine ecg w/le ast 12 lds w/i&r Dennise Johnie DO Work Phone: Start: 02-05-2021 Closed reduction of nasal fracture EDMOND Occl[facility]ch Start: 09-19-2014 Helene osteotomy secon d and third metatarsal. capsulotomy third metatarsophalangeal joint. Helene osteotomy second metatarsophalangeal joint. proximal interphalangeal joint arthroplasty left second digit and to the left third digit EDMOND Occlutech Start: 09-11-2014 Pre-surgery evaluation Edmond Pacheco Other Start: 08-08-2012 Cataract (morphologi c abnormality) EDMOND [employer]Trail Back structure, excl uding neck (body structure) kaufDA Comment on above: laminectomy L3-4 5/2 014 Other bilateral liga tion and division of fallopian tubes EDMOND Occlutech Right hammer toe and bunionectomy EDMOND PACHECO RIght knee arthroscopy WALLACE PACHECO Plan of Treatment Date Care Activity Detail Author Start: 10-12-2032 Urine microalbumin profile DTaP,Tdap,Td Vaccine (3 - Td or Tdap) [facility] Start: 04-08-2025 Influenza vaccination Influenza Vacc ine (#1) [facility] Start: 04-05-[address] [facility] Start: 03-24-[address] [facility] Start: 03-24-2025 Bacteria identified in Urine by Culture [facility] Start: 09-12-2024 End: 09-12-2024 Patient encounter procedure 09/12/2024 10:15 AM EST Office Visit [facility] [address] [place] [address] Chaparro Yarbrough, OD [address] [place] [address] 1 Year Full, Dilate, Mac OCT, ONH/GCL OCT Ophthalmology Comment on above: 1 Year Full, Dilate, Mac OCT, ONH/GCL OCT Start: 08-08-2024 Advance Directive Discussion Advance Directive Discussion [facility] Start: 08-08-2024 Medicare Advantage Annual Wellness Visit Medicare Advantage Annual Wellness Visit [facility] Start: 04-08-2024 Influenza vaccination Influenza Vacc ine (#1) [facility] Start: 08-08-2023 Advance Directive Discussion Advance Directive Discussion [facility] Start: 08-08-2023 Annual Wellness Visi t (Medicare Advantage) Annual Wellness Visit (Medicare Advantage) [facility] Start: 04-08-2023 Covid-19 Vaccine ( season) Covid-19 Vaccine ( season) [facility] Start: 04-08-2023 Influenza vaccination INFLUENZA (#1) [facility] Start: 03-08-2023 Influenza vaccination Flu vaccine (# 1) [facility] Start: 03-02-2023 Pneumococcal Vaccine : 50+ (2 of 2 - PCV) Pneumococcal Vaccine: 50+ (2 of 2 - PCV) [facility] Start: 03-02-2023 Pneumococcal Vaccine : 65+ (2 of 2 - PCV) Pneumococcal Vaccine: 65+ (2 of 2 - PCV) [facility] Start: 03-02-2023 Pneumococcal Vaccine : 65+ Years (2 of 2 - PCV) Pneumococcal Vaccine: 65+ Years (2 of 2 - PCV) [facility] Start: 08-08-2022 ADVANCE DIRECTIVE DISCUSSION ADVANCE DIRECTIVE DISCUSSION [facility] Start: 08-08-2022 DEPRESSION ASSESSMENT DEPRESSION ASS ESSMENT [facility] Start: 04-08-2022 Influenza vaccination INFLUENZA (#1) [facility] Start: 09-15-2021 COVID-19 VACCINE (4 - Booster for Pfizer series) COVID-19 VACCINE (4 - Booster for Pfizer series) [facility] Start: 08-08-2021 ADVANCE DIRECTIVE DISCUSSION ADVANCE DIRECTIVE DISCUSSION [facility] Start: 08-08-2021 DEPRESSION ASSESSMENT DEPRESSION ASS ESSMENT [facility] Start: 09-07-2019 Shingrix Vaccine (2 of 2) Shingrix Vaccine (2 of 2) [facility] Start: 2017 RSV Vaccine (1 - 1-dose 75+ series) RSV Vaccine (1 - 1-dose 75+ series) [facility] Start: 2007 BONE DENSITY BONE DENSITY [facility] Start: 2007 Pneumococcal 65+ yea rs Vaccine (1 - PCV) Pneumococcal 65+ years Vaccine (1 - PCV) [facility] Start: 2007 Screening for osteoporosis Bone Density Screening [facility] Start: 2002 Respiratory Syncytia l Virus (RSV) or age 60 yrs+ (1 - 1-dose 60+ series) Respiratory Syncytial Virus (RSV) or age 60 yrs+ (1 - 1-dose 60+ series) [facility] Start: 2002 RSV Vaccine (1 - 1-dose 60+ series) RSV Vaccine (1 - 1-dose 60+ series) [facility] Start: 1997 Screening for osteoporosis DEXA (modify frequency per FRAX score) [facility] Start: 1992 Shingles vaccine (1 of 2) Shingles vaccine (1 of 2) [facility] Start: 1987 DIABETES SCREEN DIABETES SCREEN [facility] Start: 1987 Diabetes Screening Diabetes Screenin g [facility] Start: 1961 DTaP/Tdap/Td vaccine (1 - Tdap) DTaP/Tdap/Td vaccine (1 - Tdap) [facility] Start: 1961 SHINGRIX VACCINE (1 of 2) SHINGRIX VACCINE (1 of 2) [facility] Start: 1961 Urine microalbumin profile DTAP,TDAP,TD (1 - Tdap) [facility] Start: 1954 Depression Monitoring Depression Mon itoring [facility] Start: 1953 Screening for malignant neoplasm of cervix Cervical Cancer Screening [facility] Start: 1948 PNEUMOCOCCAL: 65+ (1 - PCV) PNEUMOCOCCAL: 65+ (1 - PCV) [facility] Start: 01-30-1943 COVID-19 VACCINE (#1) COVID-19 VACCI NE (#1) [facility] EKG 12 Lead EKG 12 Lead ECG STAT 09/15/2023 11:15 AM EST [facility] URINE CULTURE - [facility] URINE CULTU RE - [facility] Lab Routine 03/24/2025 5:08 PM EDT [facility] Immunizations Immunization Date Immunization Notes Care Provider [place] [facility] 05-17-2023 influenza, high dose seasonal, preservative-free Edmond Pacheco Other [employer] Other 05-17-2023 influenza virus vaccine, unspecified formulation DO Edmond Pacheco Work Phone: [facility] 10-12-2022 tetanus and diphther ia toxoids, adsorbed, preservative free, for adult use (2 Lf of tetanus toxoid and 2 Lf of diphtheria toxoid) DO Edmond Pacheco Work Phone: [facility] 10-12-2022 tetanus and diphther ia toxoids, adsorbed, preservative free, for adult use (5 Lf of tetanus toxoid and 2 Lf of diphtheria toxoid) Edmond Pacheco Other [employer] Other 04-20-2022 Influenza vaccine, quadrivalent, adjuvanted Edmond Pacheco DO Work Phone: [facility] 04-20-2022 influenza virus vaccine, split virus (incl. purified surface antigen) Edmond Pacheco Other [facility] [employer] Other 04-20-2022 influenza virus vaccine, unspecified formulation Inderjit ASHRAF [facility] 03-02-2022 pneumococcal polysaccharide vaccine, 23 valent Inderjit ASHRAF [facility] 07-21-2021 SARS-CoV-2 (COVID-19 ) mRNA BNT-162b2 vax Inderjit ASHRAF [facility] 09-25-2020 SARS-CoV-2 (COVID-19 ) mRNA BNT-162b2 vax Inderjit ASHRAF [facility] Comment on above: Result Comment: 2022: [id number] 09-04-2020 SARS-CoV-2 (COVID-19 ) mRNA BNT-162b2 vax Inderjit ASHRAF [employer] [facility] Comment on above: Result Comment: 2022: [id number] 07-13-2019 zoster vaccine recombinant Inderjit ASHRAF [facility] 06-21-2019 influenza virus vaccine, split virus (incl. purified surface antigen) Edmond Pacheco Other [facility] [employer] Other 06-21-2019 influenza virus vaccine, unspecified formulation DO Edmond Pacheco Work Phone: [facility] 06-21-2019 pneumococcal conjuga te vaccine, 13 valent Edmond Pacheco Other [facility] 04-20-2016 tetanus toxoid, redu bhupendra diphtheria toxoid, and acellular pertussis vaccine, adsorbed Edmond Pacheco Other [facility] 05-06-2015 influenza virus vaccine, split virus (incl. purified surface antigen) Edmond Pacheco Other [place] Other 05-06-2015 influenza virus vaccine, unspecified formulation DO Edmond Pacheco Work Phone: [facility] 06-18-2014 influenza, injectabl e, quadrivalent, contains preservative Edmond Pacheco DO Work Phone: [facility] Payers Date Payer Category Payer Self-pay [id number] 2020 Medicare [facility] MEDICARE [facility] MEDICARE ADVANTAGE PPO [id number] 2020-Present [phone] [address] [address] [place] [address] PPO [id number] 2020 Medicare (Managed Care) [id number]. [id number] 2020 Private Health Insurance [id number] 1959 Medicare [id number] 1942 Unknown [id number] 2.16.840.1.239811.3.579.2. 593 1942 Unknown [id number] 2.16.840.1.303063.3.579.2. 593 1942 Unknown [id number] 2.16.840.1.602080.3.579.2. 182 1942 Unknown [id number] 2.16.840.1.502744.3.579.2. 182 1942 Unknown [id number] 2.16.840.1.943785.3.579.2. 182 1942 Unknown [id number] 2.16.840.1.640999.3.579.2. 182 1942 Unknown [id number] 2.16.840.1.980756.3.579.2. 182 1942 Unknown [id number] 2.16.840.1.522654.3.579.2. 727 1942 Unknown [id number] 2.16.840.1.610301.3.579.2. 727 1942 Unknown [id number] 2.16.840.1.389435.3.579.2. 72 1942 Unknown [id number] 2.16.840.1.609440.3.579.2. 727 1942 Unknown [id number] 2.16.840.1.470869.3.579.2. 72 1942 Unknown [id number] 2.16.840.1.295840.3.579.2. 72 1942 Unknown [id number] 2.16.840.1.469257.3.579.2. 72 1942 Unknown [id number] 2.16.840.1.738926.3.579.2. 727 1942 Unknown [id number] 2.16.840.1.399357.3.579.2. 727 1942 Unknown [id number] 2.16.840.1.517050.3.579.2. 72 1942 Unknown [id number] 2.16.840.1.103204.3.579.2. 72 1942 Unknown [id number] 2.16.840.1.542273.3.579.2. 727 1942 Unknown [id number] 2.16.840.1.087019.3.579.2. 727 1942 Unknown [id number] 2.16.840.1.125831.3.579.2. 727 1942 Unknown [id number] 2.16.840.1.621113.3.579.2. 727 1942 Unknown [id number] 2.16.840.1.437027.3.579.2. 727 1942 Unknown [id number] 2.16.840.1.134502.3.579.2. 727 1942 Unknown [id number] 2.16.840.1.763765.3.579.2. 72 1942 Unknown [id number] 2.16.840.1.763701.3.579.2. 72 1942 Unknown [id number] 2.16.840.1.699267.3.579.2. 1942 Unknown [id number] 2.16.840.1.000392.3.579.2. 72 1942 Unknown [id number] 2.16.840.1.454194.3.579.2. 72 1942 Unknown [id number] 2.16.840.1.564693.3.579.2. 72 1942 Unknown [id number] 2.16.840.1.316819.3.579.2. 72 1942 Unknown [id number] 2.16.840.1.975265.3.579.2. 72 1942 Unknown [id number] 2.16.840.1.582763.3.579.2. 1942 Unknown [id number] 2.16.840.1.644986.3.579.2. 72 Medicare [id number] 2.16.840.1.468995.19 Medicare Medicare [id number] Unknown [id number] 2.16.840.1.774345.3.579.2. 531 Unknown [id number] 2.16.840.1.599280.3.579.2. 531 Unknown [id number] 2.16.840.1.700990.3.579.2. 531 Social History Date Type Detail Facility Start: 03-29-2020 End: 03-04-2025 Tobacco smoking status Never smoked tobacco (finding) [facility] Start: 09-25-2012 End: 12-12-2021 Tobacco smoking status Never [facility] Start: 01-19-2023 End: 09-15-2023 Sex Assigned At Female [facility] Start: 1940 Sex Assigned At Female F [facility] Start: 11-16-2017 End: 01-19-2023 Tobacco use and exposure Smokeless tobacco non-user [facility] Start: 01-28-2020 End: 09-07-2023 Alcohol intake Current drinker of alcohol (finding) [facility] Start: 08-31-2013 Alcohol Comment beer, wine (3- 4 beers a day on occasion) [facility] Start: 1940 Sex Assigned At Not on file C [facility] Tobacco smoking status [facility] Tobacco smoking consumption unknown [employer] Start: 01-19-2023 End: 09-15-2023 History of Social function [employer] How often to you hav e a drink containing alcohol? Never [employer] Start: 09-28-2023 Alcohol intake Ex-drinker (finding) [employer] Sex Female (finding) [facility] Start: 01-17-2023 Alcoholic beverage intake Lifetime non-drinker (finding) [facility] Start: 01-16-2023 Alcohol Comment caffiene 4cups/day [facility] NEGATED: Highlighted rowStart: NINF History of tobacco use Passive smoker [employer] Medical Equipment Procedure Code Equipment Code Equipment Origin al Text Equipment Identifier Dates Lens Iol +21 Niels p 13mm 6mm Pc - [id number] Start: 09-11-2013 Lens Iol +20.5 Shama Acrsf Iq - [id number] Start: 09-18-2013 Comment on above: Description: IQ Functional Status Date Assessment Result Facility 07-12-2024 Functional Status N/A [facility] 07-02-2024 Functional Status N/A [facility] 03-02-2024 Functional Status No [facility] 07-10-2023 Functional Status N/A [facility] 07-10-2023 Functional Status [facility] 03-10-2023 Functional Status N/A [facility] 03-10-2023 Functional Status [facility] 05-10-2022 Functional Status No [facility] 05-09-2022 Functional Status [facility] Clinical Notes 05-23-2014 to 03-27-2025 Telephone Encounter - Chaparro Yarbrough OD - 03/27/2025 12:33 PM EDTTelephone Encounter - Chaparro Yarbrough OD - 03/27/2025 12:33 PM EDT Note Date & Type Note Facility 03-27-2025 Telephone encounter Note Form atting of this note might be different from the original. Rx sent in Patrice Yarbrough [facility] 03-27-2025 Miscellaneous Notes Formattin g of this note might be different from the original. Rx sent in Patrice Yarbrough documented in this encounter [facility] 03-15-2025 Evaluation note Diagnosis Onset Date Resolution [...] Pulmonary hypertension acute Au evgeny 2024 2:30pm [facility] Work Phone: [phone] 375-564412-05-2024 Hospital Discharge instructions Patient Education 07/12/2024 08:05:10 [...] provider. Document Revised: 02/22/2023 Document Reviewed: 02/22/2023 TrueDemand Software Patient Education 2023 Discretix. Follow Up Care 07/06/2024 11:33:09 With:CARON CARVAJAL PA-C, URL Address: [address] [place] [address] [facility] [place] [address] When: Unknown [facility] Quynh 11-25-2024 Hospital Discharge instructions Patient [...] Treatment for this condition includes: Antibiotic medicine. Bpbq-khd-tiklyyy medicines to treat discomfort. Drinking enough water [...] Follow these instructions at home: Medicines Take vjpr-qcz-hznjeof and prescription medicines only as told by [...] provider. Document Revised: 03/01/2021 Document Reviewed: 03/06/2021 TrueDemand Software Patient Education 2023 Discretix. 07/02/2024 16:12:28 ESBL Infection ESBL Infection ESBL [...] have recently been admitted to a hospital, skilled nursing, or other health care facility. You have [...] clean their hands with an alcohol-based hand health information specialist, before they enter or leave your room. [...] clean their hands with an alcohol-based hand health information specialist, before they enter or leave your room. Taking antibiotics exactly as told by your health care provider. Washing your hands with soap and water for at least 20 seconds, or cleaning your hands with an alcohol-based hand health information specialist, after you do any of these things: [...] your hands with an alcohol- based hand health information specialist, especially after using the bathroom. This information is not intended to replace advice given to you by your health care provider. Make sure you discuss any questions you have with your health care provider. Document Revised: 12/05/2020 Document Reviewed: 12/06/2020 TrueDemand Software Patient Education 2023 Discretix. 07/02/2024 16:12:27 Antibiotic Resistance Antibiotic Resistance Antibiotics [...] provider. Document Revised: 02/22/2023 Document Reviewed: 02/22/2023 TrueDemand Software Patient Education 2023 Discretix. Follow Up Care 07/02/2024 09:46:39 With:CARON CARVAJAL PA-C, URL Address: [facility] [place] [address] When: Unknown Comments:F/u in 3 months [facility] [id number] NoteUrology Office/Clinic Note Chief Complaint Referral HPI [...] C&S 01/31 neg 03/25 Klebsiella - Cefdinir 9/5 E Coli - Macrobid 05/04 E Coli [...] hx of dementia, daughter present. Lives at [facility]. 1. Recurrent UTI (N39.0: Urinary tract infection, site not specified) Abx w/o Cx: 01/11 - Keflex 01/27, 02/02, 02/26 - Macrobid C&S 01/31 neg 03/25 Klebsiella - Cefdinir 9 E Coli - Macrobid 05/04 E Coli [...] Mcmanus 07/02/2024 16:16:49. Documentation recorded by the scribe Ant Bruner PA-C_ accurately reflects the services(s) I performed and decisions made by me. Authenticated by Lakshmi (more content not included)...[facility] on above:Result Comment: Electronically Signed By: CARON CARVAJAL PA-C\.br\Date and Time Signed: 07/02/2416:36 EST\.br\Electronically Co-Signed By: Ant Bruner PA-C\.br\Date and Time Co-Signed: 07/02/2416:24 [id number] NotePatient Education Infectious Disease ESBL Infection ESBL [...] have recently been admitted to a hospital, skilled nursing, or other health care facility. ??? You [...] clean their hands with an alcohol-based hand health information specialist, before they enter or leave your room. [...] wash their hands wi (more content not included)...[facility]10-[facility] Evaluation + Plan note Diagnostic Tests Pending * Urine Culture 05/15/24 [facility] 09-27-2024 Evaluation + Plan note Diagnostic Tests Pending * Urine Culture 05/04/24 [facility] 08-07-2024 NoteEchocardiology Procedure Exam Date/Time Accession # Ordering Dr. Ritter Transthoracic w/ 03/14/2024 14:23 EDT [id number] Gera Thomas PA-C Contrast CPT code 63831 C8929 Reason for Exam (Echo Transthoracic w/ Contrast) Shortness of breath, Edema, Dizziness R60.0;Evaluate Ejec Fraction Report [facility] [address] [place] [address] Adult Echocardiogram Report Name: CARIDAD GLOVER I Study Date: 03/14/2024 01:07 PM BP: 143/63 mmHg Patient Location: [facility] HR: 59 : 1940 Gender: Female Height: 60 in Age: 83 yrs Ethnicity: [facility] Weight: 208 lb Reason For Study: Evaluate Ejec Fraction BSA: 1.9 m2 History: CVA,Alcohol use Ordering Physician: Martha^Gera^A Referring Physician: Gera Thomas Performed By: Carla Fox, ZARINAMS, RVT Interpretation Summary Image enhancing agent used [...] David Calderon MD Transcribed by: CECILE Technologist: [facility]08-05-2024 Telephone encounter Note* Telephone Encounter - Chaparro Yarbrough, ANDRESSA - 03/12/2024 10:15 AM EDT Rx sent in [facility]08-05-2024 Miscellaneous Notes* Telephone Encounter - Chaparro Yarbrough [...] Please review and advise. [facility] Telephone encounter Note * Telephone Encounter - [...] eyes once daily. Please review and advise. [facility]02-08-2024 Hospital Discharge instructions* Discharge Instructions* Dennise Sol [...] sent through Care Everywhere. * Fall Prevention (Tristanian) [facility] NoteHNO ID: [id number] Author: CHAPARRO YARBROUGH OD Service: ? Author Type: RUNNER OUT Type: Progress Notes Filed: 09/07/2023 12:53 Note [...] with all of its relevant components. Chaparro Yarbrough OD September 07, 2023 12:50 [facility] 08-31-2023 NoteAdmission and Discharge Information Admitting Physician [...] may require titration of Seroquel. Excepted to [facility]. She was discharged in stable condition. - [...] hx, worsening, Consult and Co-manage Consult to Genetic Counselor - Completed -- 08/28/23 0:39:00 EST, Other [...] LEATHA Zaman Within 2 to 4 weeks [address] [address] [place] [address]- Additional Instructions:[facility] HospitalComment on above:Result Comment: Electronically Signed By: Davy RODRIGUEZ, Alex\.br\Date and Time Signed: 08/31/23 11:59 [id number] NotePT Evaluation done this date. Pt. with on AM-PAC. Needs cues and supervision for safety with all activities due to dementia. Recommend 28/02 supervision but no further PT needs.[facility]01-22-2024 NoteChief Complaint I had a fall [...] normal. Patient is alert. Not oriented to [facility], year, or month. Attention seems fairly normal [...] Oral, Bedtime Sodium Chlori (more content not included)...[facility] HospitalComment on above:Result Comment: Electronically Signed By: Rashida Moraes RN\.br\Date and Time Signed: 08/29/23 07:31 EST\.br\Electronically Co-Signed By: Tapan Bender DO\.br\Date and Time Co-Signed: 08/29/23 10:12 [id number] Note Family requesting placement in dementia facility. CRM is working with patient/family for appropriate d/c planning and referral is out to facilities with dementia units. SW will remain available and assist as/if needed.[facility]01-21-2024 NoteChief Complaint I had a fall [...] events. Physical and Occupational Therapy had recommended custodial facility therefore she was discharged to the transitional care unit. Per review of the chart it appears on 21 July she was discharged from the TCU to [facility]. Other past medical history included in review of previous charts includes obstructive sleep apnea with poor tolerance of CPAP, anxiety depression, psoriatic arthritis for which she had seen Dr. Taylor, hypertension, GERD, history of cervical and lumbar 9 disease with remote lumbar surgeries. Patient was brought into the em ergency department this evening with below Been advised by the emergency kersey department supervisor to access to the patient's daughter who is a nurse practitioner there was once again concerns about the patient having increasing confusion and experiencing agitation. Been advised that on this evening of presentation patient [facility] during around and disoriented. There was no history of any falls. Been advised by the emergency department physician who in turn and been advised by patient's daughter the patient's daughterhad been advised that the only circumstance which patient would remain a resident at the assisted living would be of the patient's daughter would stay with the patient jccdlp-dzb-pnoah. Patient's daug hter was not present during [...] was at a friend 's house in [place], she was not oriented to president even [...] of breath, no cou (more content not included)...[facility] HospitalComment on above:Result Comment: Electronically Signed By: Reuben DREW DO\.br\Date and Time Signed: 08/28/23 00:37 [id number] Evaluation note* Encounter Date Diagnosis Assessment Notes Treatment Notes Treatment Clinical Notes Aug, Dysuria (ICD-10 - R30.0) [employer] Other 12-18-2023 NoteAdmission and Discharge Information Admitting [...] 58.4 % Lymph Auto - 32.5 % Pasco Auto - 7.4 % Eos Auto - 1.4 % Basophil Auto - 0.3 % Neutro Absolute - 3.6 E9/L Lymph Absolute - 2.0 E9/L [place]co Absolute - 0.5 E9/L Eos Absolute - [...] - 90 mg/dL POC Device SN - [id number] POC User ID - [id number] POC Username - JAGRUTI FLOR CBC w/ [...] Rate Automated (07/11/2023) Sed (more content not included)...[facility] HospitalComment on above: Result Comment: Electronically Signed By: Rimma Paez\.br\Date and Time Signed: 07/19/23 13:14 EST\.br\Electronically Co-Signed By: Valente SALEEM MD\.br\Date and Time Co-Signed: 07/25/23 09:12 [id number] Hospital Discharge instructions Patient Education 07/13/2023 11:39:06 Sleep Apnea, Mlxw-ym-Lbwb Sleep Apnea Sleep apnea affects breathing during [...] quitting, ask your doctor. General instructions Take fuwo-enc-azxqlnc and prescription medicines only as told by [...] away. Call your local emergency services (911 inthe [place] Do not wait to see if [...] provider. Document Revised: 03/03/2022 Document Reviewed: 07/03/2021 [employer]Demand Software Patient Education 2022 Discretix. 07/13/2023 11:38:57 Hyponatremia, Bavf-vj-Hkcz Hyponatremia Hyponatremia is when the amount of [...] symptoms. Follow these instructions at home: Take vgfw-tzx-jasnlto and prescription medicines only as told by [...] provider. Document Revised: 02/02/2022 Document Reviewed: 02/02/2022 [employer]Demand [employer] Patient Education 2022 Discretix. Follow Up Care 07/10/2023 16:40:18 With:EDMOND PACHECO DO Address: [address] [place] [id number] When:2 weeks Comments:Call for followup appointment With:Andres RODRIGUEZ, LEATHA Zaman Address: [address] [address]- When:2 to 4 weeks [facility]12-05-2023 Evaluation + Plan noteExtracted from: Title:APSO [...] Remote history of lower back surgery at [facility]. Patient is on Zanaflex we [...] Remote history of lower back surgery at [facility]. Patient is on Zanaflex we [...] Remote history of lower back surgery at [facility]. Patient is on Zanaflex we [...] Scheduled Provider: Location:FT.CARDIO Appointment Type:CV Holter/Event (FT) [facility]12-05-2023 NoteBasic Information The patient is a [...] significantly confused and hallucinating and not at [facility]. The patient was brought in by family [...] Count -- 1 -- (more content not included)...[facility] HospitalComment on above:Result Comment: Electronically Signed By: Rashida Moraes RN.anusha\Date and Time Signed: 07/12/23 07:18 EST\.br\Electronically Co-Signed By: Austyn Campos MD\.br\Date and Time Co-Signed: 07/12/2309:57 [id number] NoteChief Complaint significant change in mental status [...] CPAP. Patient is also treated by Dr. Talyor for psoriatic arthritis. In addition patient has a history of cervical and lumbar spinal stenosis had remote surgery lower lumbar spine at [facility]. Patient was brought into the [...] having the Hallmark channel on with the Melodigram movie she was uncertain. She was not oriented to the president's name but she was able to do simple math i.e. 2+2 = 4. I therefore called patient's daughter Linh who is the power of metrology technician at [phone] to obtain patient's recent history. 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 She does state since her neuropsych evaluation [...] no dizziness, no numbness, (more content not included)...[facility] HospitalComment on above:Result Comment: Electronically Signed By: Reuben DREW DO\Date and Time Signed: 07/11/23 00:06 [id number] Evaluation note* Encounter Date Diagnosis Assessment Notes Treatment Notes Treatment Clinical Notes Jun, Acute cystitis without hematuria (ICD-10 - N30.00) Jun, Primary hypertension (ICD-10 - I10) [employer] Other 11-14-2023 Evaluation note* Encounter Date Diagnosis Assessment Notes Treatment Notes Treatment Clinical Notes 14 Jun, 2023 Acute cystitis without hematuria (ICD-10 - N30.00) [employer] Other 11-13-2023 Evaluation note* Encounter Date Diagnosis Assessment Notes Treatment Notes Treatment Clinical Notes Jun, Dysuria (ICD-10 - R30.0) [employer] Other 10-10-2023 Evaluation note* Encounter Date Diagnosis Assessment Notes Treatment Notes Treatment Clinical Notes May, Obstructive sleep apnea (ICD-10 - G47.33) AHI 12 This patient is aware of the benefits associated with NAWAF: With continued use, the patient reduces the risk for MO, CVA, HTN, cardiac dysrhythmias and sudden cardiac [...] Acute cystitis without hematuria (ICD-10 - N30.00) [employer] Other 10-04-2023 Evaluation note* Encounter Date Diagnosis Assessment Notes Treatment Notes Treatment Clinical Notes May, Dysuria (ICD-10 - R30.0) [employer] Other 09-19-2023 Evaluation note* Encounter Date Diagnosis Assessment Notes Treatment Notes Treatment Clinical Notes Apr, Mild episode of recurrent major depressive disorder (ICD-10 - F33.0) [employer] Other 08-30-2023 Evaluation note* Encounter Date Diagnosis [...] use, the patient reduces the risk for MO, CVA, HTN, cardiac dysrhythmias and sudden cardiac deaths.The patient is also aware of the association between NAAWF and morning headaches, daytime somnolence, fatigue and obesity, which also has been improved with continued use.The patient is compliant with treatment, wearing the equipment every night for greater than 4 hours.The patient is instructed to continue use of the CPAP for NAWAF treatment. Mar, Acute cystitis without hematuria (ICD-10 - N30.00) Failed to improve w/ Bactrim, which was moderately sensitive [place] w/ Levoquin x 5 days Mar, Palpitation (ICD-10 - R00.2) Hydrate and avoid stimulants. Continue Metoprolol at this time. 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 Requires reminders to use adaptive device. Fall precautions [employer] Other 08-23-2023 Evaluation note* Encounter Date Diagnosis Assessment Notes Treatment Notes Treatment Clinical Notes Mar, Acute cystitis without hematuria (ICD-10 - N30.00) [employer] Other 08-07-2023 Evaluation + Plan noteExtracted from: Title:Discharge Note Author:Davy RODRIGUEZ, Alex Hernandez ate:03/14/23 Stable Discharge To, Anticipated II - Alf Unit Discharged to - Home independently TCU [...] LEATHA Zaman Within 2 to 4 weeks [facility] [place] [address]- Additional Instructions: Fall Prevention in the Home, Adult, Gbll-zu-Rvzq Extracted from: Title:APSO Note Author:Barrie Rodriguez DO [...] Sbsq Hospital Care/Day Straight Fwd 25 Minutes 19554 2. Fall at home (W19.XXXA: Unspecified fall, [...] Sbsq Hospital Care/Day Straight Fwd 25 Minutes 10639 Sbsq Hospital Care/Day Straight Fwd 25 Minutes 03857 2. Fall at home (W19.XXXA: Unspecified fall, [...] Extracted from: Title:APSO Note-neurology Author:Judy CROWLEY, Mahendra rollins Date:03/12/23 Reason for consult: Acute on chronic [...] unspecified (R41.82: Altered mental status, unspecified) Ordered: [facility] Care/Day Moderate 35 Minutes 14239 2. Fall at home (W19.XXXA: Unspecified fall, [...] BID, # 90 tab(s), Refills(s) 0, Pharmacy: [facility]/pharmacy #[id number], 152.4, cm, 05/09/22 21:11:00 EDT, Height/Length [...] Signs Weight Extracted from: Title:ED Note Author:Jose Alberto CAMACHO, Jose Armando Denton te:03/10/23 1. Altered mental status, un specified [...] Scheduled Provider:Inderjit ASHRAF MD Location:Extended Care Appointment Type:EC U [facility]08-07-2023 Hospital Discharge instructions Patient Education 03/14/2023 09:22:15 Fall Prevention in the Home, Adult, Pcpi-wt-Reqh Fall Prevention in the Home, Adult Falls [...] Keep items that you use often in cphi-iu-gcbco places. Lower the shelves around your home [...] of the way. Do not use floor indian or wax that makes floors slippery. What [...] Disease Control and Prevention, STEADI: www.cdc.gov National Nezperce on Aging: www.diann.nih.gov Contact a doctor if: [...] provider. Document Revised: 04/26/2022 Document Reviewed: 02/25/2021 [employer]Demand [employer] Patient Education 2022 Discretix. Follow Up Care 03/10/2023 11:16:19 With:Andres RODRIGUEZ, LEATHA Zaman Address: [address] [address]- When:2 to 4 weeks [facility]07-10-2023 Evaluation note* Encounter Date Diagnosis Assessment Notes Treatment Notes Treatment Clinical Notes Feb, Obstructive sleep apnea (ICD-10 - G47.33) AHI 12 [employer] Other 07-03-2023 Miscellaneous Notes* Telephone Encounter - Joyce Mohamud RN - 02/07/2023 2:27 PM EDT RN returned daughter's phone call, no answer, left a message that I faxed over the last office visit notes to [facility] [phone]. Joyce Mohamud RN * Telephone Encounter - Blaise Pathak - 02/07/2023 2:11 PM EDT Linh CaalM on [facility] Nurse Line on 02/07 @ 1:25P. Linh stated she was sorry she missed the Nurse call re: mom. Pt. verified 1940. Linh provided the fax number for Dr. Tobi Pacheco . Linh's contact number is . Thank you, Blaise documented in this encounter[facility]07-[facility]-2023 Miscellaneous Notes* Telephone Encounter - Joyce Mohamud RN - 02/07/2023 12:55 PM EDT RN called daughter Linh back, no answer, left a detailed message that we will need the fax number to sent the requested notes to the new PCP Tobi Pacheco, [place], [place]. Joyce Mohamud RN * Telephone Encounter - Blaise Pathak - 02/07/2023 12:01 PM EDT Dtr, Linh ALATORRE on [facility] Nurse Line on 02/10 @9:53A. Linh states pt was recently seen by the ALCOHOL RUBBER.She is wondering if she can get a Report sent to pt PCP, Tobi Pacheco in [place], [place]. Linh is POA and requesting a return call back at . Thank you, Blaise documented in this encounterMiami Valley Hospital06-23-2023 Miscellaneous Notes* Telephone Encounter - LORY Vallejo [...] that you may find helpful is [facility]-Information &Referral line. Call [phone] and select option 0 for all other services & request senior resources. When reviewing the list of communities, please reference the abbreviation gonzalez listed below. IL (Independent Living) AL (Assisted Living) AL-MC (Assisted Living with secure memory care unit) AL-MS (Assisted Living with memory care support) SN-Alf LTC-MC (long-term care with secure memory care unit) LTC-MS (long-term care with memory support) [facility] ([place]; AL; SN) *Pet friendly [address] [place] [address] [facility] (AL; SN) *Pets welcome [address] [place] [address] [facility] (AL-; SN) *Pet friendly for small pets [address] [place] [address] [facility] ([place]; AL; AL-; SN) *Possibly pet friendly [address] [facility] [place] [address] [facility] (; SN; LT) [address] , [place] [address] [facility] [place] ([place]; AL) [address] [facility] [place], [place] [address] [facility] ([place]; AL; AL-; SN; LTC) [address] [place], [place] [id number] [facility] ([place]) [address] [place] [address] [facility] ([place]; AL; AL-MC; SN) [address] [place] [address] SW will remain available. LORY Vallejo documented in this encounterMiami Valley Hospital06-14-2023 Instructions* Patient Instructions* LORY Vallejo - 01/19/2023 [...] a button. Some options for this are: QUIQ: Call or visit https://Genio Studio Ltd/ & click on Seniors tab -Mobile System. -Fall detection. -Medication reminders. -GPS monitoring. -Alirio fencing option for wandering. -Checks heart rate, blood pressure, temperature, and oxygen levels. -Worn as a wristband. Life Alert: Call or visit www.lifealertDada.PharmaDiagnostics -Offers home based and mobile system. -Offers a push button for the shower. -Comes in a lanyard. Lifefone: Call or visit www.Marathon Technologies -Home based or mobile system. -Fall detection. -GPS detects location of emergency. -Water proof. -Worn as a lanyard, wristband, or offers a push button. Lifeline: Call or visit www.PopJam -Home based & mobile system. -Fall detection. -GPS detects location of the emergency. -Water resistant; can be worn in the shower. -Worn as a wristband or lanyard. Lively: Call or visit www.265 Network/medical-alerts -Offers mobile systems. -Offers fall detection. -Comes in a lanyard. Also compatible with PresenceLearning. Medical Alert: Call or visit www.ArQulertThe Whistle -Offers home based & mobile system. -Mobile system offers GPS monitoring. -Fall detection for all systems. -Systems can be worn in the bath or shower. -Two way speaker allows you to communicate with a trained response specialist who will determine who to contact for help (family, friends, or emergency responders). -Comes in a lanyard or wristband. Medical Guardian: Call or visit www.medicalguBag Borrow or StealnThe Whistle -Offers home based and mobile system. -GPS tracking for mobile system. -Water resistant, not water proof. -Worn as a lanyard or wristband. Mobile Help: Call or visit www.CrowdCurity -Offers home based & mobile system. -Comes in a lanyard or small mobile device. UnaliWear: Call or visit www.IntelliChem -Home based and mobile system. -Fall detection. [...] available online. The Alzheimer's Association (web site: alz.org/genoa) An organization that provides education and support to individuals/caregivers affected by memory loss, Alzheimer's disease, and all forms of dementia. Available 24 hours a day, 7 days per week. Contact: Local: ; Toll free: [phone] Family Caregiver [place] (web site: Caregiver.org) JLUISJagruti Carter-- a secure online solution for quality information, support, and resources for family caregivers. Contact: Toll-free number: [phone] Advance Directives As per our discussion of advanced directives, we understand you have these documents in place whichis excellent. Follow Up Our office can be reached by calling [phone] Option 1. Sincerely, Quiana Waterman APRN.POULTRY HATCHERY MANAGER CARLINE Strickland, [facility] LORY Vallejo documented in this encounterMiami Valley Hospital06-14-2023 NoteHNO ID: [id number] Author: Quiana Waterman APRN.POULTRY HATCHERY MANAGER Service: ? Author Type: Nurse Specialist Type: Progress Notes Filed: 01/20/2023 12:16 PM Note Text: Date: January 19, 2023 CARIDAD Yunier [place] [address] [facility] [address] [place] [facility] INITIAL PATIENT EVALUATION Reason for Consult: Cognitive changes, Mobility decline, and Behavioral changes I had the pleasure of seeing this 82 year old year old female at the [facility]. The patient is referred [...] Activities of Daily Living Lomas Index of [place] in Activities of Daily Living (A.D.L.) Bathing: [...] be done by another person. (1 POINT) Artemus - Ector Instrumental Activities of Daily Living [...] automobile with assistance of (more content not included)...[facility]06-14-2023 Nurse Note* Coty Duque RN - 01/19/2023 12:46 PM EDT Caridad Glover is a 82 year old year old right handed woman Accompanied by: daughter. 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 Patient states that she is having trouble at home and with memory Vital Signs: BP 160/81 (BP Site: Left Arm, BP Position: Sitting, BP Cuff Size: Regular Adult) Pulse (!) 54 Wt 84.5 kg (186 lb 4.8 oz) BMI 36.38 kg/m Coty Duque RN [facility] History of Present illness Narrative* Quiana Waterman, PRODUCT SUPPORT TECHNICIAN.POULTRY HATCHERY MANAGER - 01/19/2023 12:30 PM EDT Images from the original note were not included. Date: January 19, 2023 [address]IDAD [address]OVER [id number] [address] [address] [facility] INITIAL PATIENT EVALUATION Reason for Consult: Cognitive changes, Mobility decline, and Behavioral changes I had the pleasure of seeing this 82 year old year old female at the [facility]. The patient is referred by SELF Patient [...] Activities of Daily Living Lomas Index of [place] in Activities of Daily Living (A.D.L.) Bathing: [...] POA: Yes, copy received; Linh dtr is [facility]. Financial POA: Yes Consult [facility] FARM PRODUCTS SHIPPER if not completed: role introduced SW will send info on local [facility] communities to the pt's dtr for review. 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 -1 son traumatically in 2008; 1 dtr Linh is local and the pt's main support. -Guardian No -Is patient a ? No I have personally reviewed and verified the above information. Quiana Waterman APRN.POULTRY HATCHERY MANAGER PAST MEDICAL HISTORY Diagnosis Date Glaucoma suspect [...] daily. EPINEPHrine (EPIPEN) 0.3 mg/0.3 mL auto-injector Hohdoktshoqoc-Nhxautxx-Hhlxcp (CENTRUM SILVER) tab Take 1 tablet by [...] Evaluation: Clock Drawin/5 Abstract thinking was poor. skilled nursing memory was fair to poor. She could name 11 animals in 60 seconds and 3 words beginning with letter F in one minute. No results found for: TSH, B12, FOLATE, TLSQ65-dex results available in scanned documents. However B-12 [...] diagnosis. This is her first visit to [facility]. MoCA administered with score of 19/30. [...] (Namenda) would deferto her current providers in [facility], neurology and psychiatry. Pt resides alone with [...] which included preparing to see the patient, iedx-hk-lbrm patient care, completing clinical documentation, obtaining and/or reviewing separately obtained history, counseling and educating the patient/family/caregiver, ordering medications, te sts, or procedures, communicating with other HCPs (not separately reported) and care coordination (not separately reported). Quiana Waterman APRN, Geriatric Clinical Nurse Specialist [facility] CC: 1. Rojas Brown, OD, (fax) [phone] 2. Caridad [place], [address] [facility] [address] documented in this [facility]05[facility] Evaluation note* Encounter Date Diagnosis Assessment Notes Treatment Notes Treatment Clinical Notes December, Closed nondisplaced fracture of styloid process of left ulna, initial encounter (ICD-10 - S52.615A) [facility] Other 05-12-2023 Evaluation note* Encounter Date Diagnosis Assessment Notes Treatment Notes Treatment Clinical Notes December, Left arm pain (ICD-10 - M79.602) [facility] Other 03-07-2023 Evaluation note* Encounter Date Diagnosis Assessment Notes Treatment Notes Treatment Clinical Notes Oct, Puncture wound (ICD-10 - T14.8XXA) [facility] Other 03-06-2023 Evaluation note* Encounter Date Diagnosis Assessment Notes Treatment Notes Treatment Clinical Notes Oct, Open bite of unspecified finger without damage to nail, initial encounter (ICD-10 - S61.259A) Oct, Cellulitis of left upper extremity (ICD-10 - L03.114) Elevate and soak in warm water daily. Oct, Bitten by cat, initial encounter (ICD-10 - W55.01XA) Check on Tetanus status [facility] Other 02-06-2023 Evaluation note* Encounter Date Diagnosis Assessment Notes Treatment Notes Treatment Clinical Notes Sep, NSVT (nonsustained ventricular tachycardia) (ICD-10 - I47.29) Continue Metoprolol and avoid stimulants. Encouraged to exercise and lose weight. Sep, Obstructive sleep apnea (ICD-10 - G47.33) This patient is aware of the benefits associated with NAWAF: With continued use, the patient reduces the risk for MO, CVA, HTN, cardiac dysrhythmias and sudden cardiac [...] continue SSRI. 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 Pt is identified by name and birthdate: Yes Patient phones requesting refills as follows: Requested Prescriptions Pending Prescriptions Disp Refills latanoprost (XALATAN) 0.005 % ophthalmic solution 2.5 mL 0 Please review and advise. documented in this [facility]Mi[facility]10-31-2022 Miscellaneous Notes* Telephone Encounter - Chaparro Yarbrough, OD - 06/07/2022 2:18 PM EDT Gave 1 refill last refill pt need to be seen before any refills Patrice Yarbrough * Telephone Encounter - Rimma Lo PSS - 06/07/2022 1:21 PM EDT Patient called regarding refill. documented in this [facility]10-[facility]22 Hospital Discharge instructions Patient Education 05/12/2022 14:42:47 Core Measures: Stroke (Cerebrovascular Accident) [facility] Stroke (Cerebrovascular Accident) A stroke is [...] factors for stroke, work with your health career center advisor to control them. High Blood Pressure: High [...] Please call [facility] Smoking Cessation Program at [phone] ([facility] or [phone], ext. [phone] Diabetes: Work with your healthcare professional to [...] cholesterol diet, you can call our [facility] exhibits manager at [phone] Ext. [phone]. The goal for total cholesterol is less [...] your risk of stroke with your health career center advisor. TREATMENT TIME IS OF THE ESSENCE! Medications [...] Measures will be takento prevent short and fine hairer complications, including aspiration pneumonia, blood clots in [...] for more information on strokes, log onto [email or web address] or [email or web address] or call the [place] [employer] at . Revised 08/2018 Follow Up Care 05/09/2022 20:58:58 With:EDMOND PACHECO Address: [address] [place] [address]- Business (1) When:05/19/2022 15:00:00 With:Austyn Campos MD, NEU Address: [address] [place] [address] [place] [address]- Business (1) When:06/08/2022 11:15:00 [facility]10-05-2022 Evaluation + Plan noteExtracted from: Title:Discharge [...] LEATHA Zaman Within 2 to 4 weeks [address] [place] [address] [place] [address]- Additional Instructions: Core Measures: Stroke (Cerebrovascular Accident) [facility] Extracted from: Title:APSO Note- Neurology Author:Driss [...] Extracted from: Title:Consult Note-neurology Author:Jose Kim RN Date:05/10/22 ASSESSMENT: Suspected neurodegenerative disorder with associated [...] several months attributed to working at the [employer]. However there was a history obtained emergency [...] Basic Metabolic Panel CBC w/ Auto Diff [place] Stroke Scale Communication Order Physician to Nursing Continuous Pulse Oximetry CT Head or Brain w/o Contrast ECG 12 Lead Adult ED Cardiac Monitoring ED Physician consult Hospitalist for continued care eGFR Ethanol Level Extra Enigma Tube Extra SST Tube Hepatic Function Panel [...] Future Scheduled Tests Laboratory* Lipid Panel 12/15/21 [facility]05-10-2022 Evaluation + Plan note Future Scheduled Tests Laboratory* Lipid Panel 12/15/21 Radiology* NM Myocardial Spect Rest/Stress 1 Day 12/15/21 [facility]05-10-2022 Evaluation + Plan note Future Scheduled Tests Laboratory* Lipid Panel 12/15/21 [facility]05-08-2022 Evaluation + Plan noteExtracted from: Title:Discharge Note Author:YONY RODRIGUEZ, Mitar Zackary e:12/13/21 1. Fall (W19.XXXA: Unspecified fall, initial encounter) Ordered: [facility] Care/Day Moderate 25 Minutes 26191 2. Closed head injury (S09.90XA: Unspecified injury of head, initial encounter) Ordered: [facility] Care/Day Moderate 25 Minutes 21469 3. Nasal fracture (S02.2XXA: Fracture of nasal bones, initial encounter for closed fracture) Ordered: [facility] Care/Day Moderate 25 Minutes 44531 4. Facial laceration (S01.81XA: Laceration without foreign body of other part of head, initial encounter) Ordered: [facility] Care/Day Moderate 25 Minutes 95294 5. Acute alcohol intoxication (F10.929: Alcohol use, unspecified with intoxication, unspecified) Ordered: [facility] Care/Day Moderate 25 Minutes 59400 6. Hyponatremia (E87.1: Hypo-osmolality and hyponatremia) Ordered: [facility] Care/Day Moderate 25 Minutes 03930 7. Hx of ventricular tachycardia (Z86.79: Personal history of other diseases of the circulatory system) Ordered: [facility] Care/Day Moderate 25 Minutes 80869 Orders: Basic Metabolic Panel Basic Metabolic Panel [...] Ordered: Initial Observation Care/Day High 70 min 53110 2. Closed head injury (S09.90XA: Unspecified injury of head, initial encounter) - Will monitor at this time. - Plan as above Ordered: Initial Observation Care/Day High 70 min 17898 3. Nasal fracture (S02.2XXA: Fracture of nasal bones, initial encounter for closed fracture) - Follow up with ENT as an outpatient. Ordered: Initial Observation Care/Day High 70 min 64316 4. Facial laceration (S01.81XA: Laceration without foreign body of other part of head, initial encounter) Sutured follow up with your PCP to have the sutures removed Ordered: Initial Observation Care/Day High 70 min 20442 5. Acute alcohol intoxication (F10.929: Alcohol use, unspecified with intoxication, unspecified) - [facility] protocol ordered - Banana bag ordered - Will hold of on the Ativan as the patient is acutely intoxicated Ordered: Initial Observation Care/Day High 70 min 55994 6. Hyponatremia (E87.1: Hypo-osmolality and hyponatremia) - IV fluids as needed. Ordered: Initial Observation Care/Day High 70 min 58184 7. Hx of ventricular tachycardia (Z86.79: Personal history of other diseases of the circulatory system) - Will monitor on telemetry. Ordered: Initial Observation Care/Day High 70 min 45827 Orders: acetaminophen, 650 mg = 2 tab(s), [...] Intermittent Pneumatic Compression Device Cardiac Monitoring Clinical [place] Withdrawal Assessment Clinical [place] Withdrawal Assessment Clinical [place] Withdrawal Assessment Clinical [place] Withdrawal Assessment Communication Order Physician to Nursing [...] Tests Pending * Basic Metabolic Panel 12/14/21 [facility]05-08-2022 Hospital Discharge instructions Patient Education 12/13/2021 [...] improvement. Follow these instructions at home: Take dger-ime-xtzqohm and prescription medicines only as told by [...] 07/15/2003 Document Revised: 06/08/2019 Document Reviewed: 06/08/2019 [employer] Patient Education 2020 [employer]. 12/13/2021 10:14:05 Hyponatremia Hyponatremia Hyponatremia is when [...] improvement. Follow these instructions at home: Take jilg-rjh-ufgvruv and prescription medicines only as told by [...] 07/15/2003 Document Revised: 06/08/2019 Document Reviewed: 06/08/2019 [employer] Patient Education 2020 [employer]. 12/13/2021 10:13:59 Alcohol Intoxication Alcohol Intoxication Alcohol [...] beverage between alcoholic drinks. General instructions Take mdwc-fsy-awxrwot and prescription medicines only as told by your health care provider. Do not drive after drinking any amount of alcohol. Plan for a designated interstate bus driver or another way to go home. [...] 05/04/2006 Document Revised: 11/14/2018 Document Reviewed: 11/14/2018 [employer] Patient Education 2020 [employer]. Follow Up Care 12/12/2021 22:19:19 With:Follow up with primary care provider Address:Unknown When: Unknown [facility]10-16-2014 Evaluation note* Encounter Date Diagnosis Assessment Notes Treatment Notes Treatment Clinical Notes May, Dysuria (ICD-10 - R30.0) Dysuria [facility] Other Evaluation + Plan note Future Appointments Appointment Date:11/17/2021 11:00:00 AM Scheduled Provider: Location:.CARDIO Appointment Type:CV Holter/Event (FT) [facility] Future Appointments Appointment Date:01/27/2022 08:15:00 PM Scheduled Provider: Location:.SLEEP LAB_ Appointment Type:SAP BI DEVELOPER Sleep Study PSG (FT) Future Scheduled Tests Laboratory* Lipid Panel [facility]/15/[facility] Future Appointments Appointment [...] Future Scheduled Tests Laboratory* Lipid Panel [facility]/15/[facility] Future Appointments Appointment Date:03/30/2023 01:45:00 PM Scheduled Provider: Location:.PHYSICAL [place] Appointment Type:PT Re-Eval 45 (FT) [facility] Evaluation + Plan note Future [...] Urine Culture 03/30/23 * Urine Culture 03/30/23 [facility] Future Appointments Appointment Date:05/17/2023 11:00:00 AM Scheduled Provider: Location:.PHYSICAL [place] Appointment Type:PT 45 (FT) Appointment Date:05/20/2023 12:00:00 PM Scheduled Provider: Location:.PHYSICAL [place] Appointment Type:PT 45 (FT) Appointment Date:05/24/2023 11:00:00 AM Scheduled Provider: Location:.PHYSICAL [place] Appointment Type:PT 45 (FT) Appointment Date:05/26/2023 12:30:00 PM Scheduled Provider: Location:.PHYSICAL [place] Appointment Type:PT Re-Eval 30 (FT) Diagnostic Tests Pending * Urine Culture [facility]11/23 [facility] Future Appointments Appointment Date:06/22/2023 10:30:00 AM Scheduled Provider: Location:.PHYSICAL [place] Appointment Type:PT 45 (FT) Appointment Date:06/27/2023 11:15:00 AM Scheduled Provider: Location:.PHYSICAL [place] Appointment Type:PT Re-Eval 45 (FT) Diagnostic Tests Pending * Urine Culture 06[facility]21/23 [facility] Future Appointments Appointment Date:06/27/2023 11:15:00 AM Scheduled Provider: Location:.PHYSICAL [place] Appointment Type:PT Re-Eval 45 (FT) [facility] Future Appointments Appointment Date:03/30/2024 11:30:00 AM Scheduled Provider:Gera Thomas PA-C Location:FT[facility] Appointment Type:Cardiology Follow Up (FT) Future Scheduled Tests Radiology* Echo Transthoracic Complete 03/02/24 [facility] Evaluation + Plan note Future Appointments Appointment Date:03/30/2024 11:30:00 AM Scheduled Provider:Gera Thomas PA-C Location:FT.Cardiology Clinic Appointment Type:Cardiology Follow Up (FT) [facility] evaluation + Plan note Future Appointments Appointment Date:07/11/2024 08:15:00 AM Scheduled Provider:Karlee Montes De Oca MD Location:[facility] Appointment Type:URO New Patient Diagnostic Tests Pending * Urine Culture 05/30/24 [facility] evaluation + Plan note Future Appointments Appointment Date:07/11/2024 08:15:00 AM Scheduled Provider:Karlee Montes De Oca MD Location:[facility] Appointment Type:URO New Patient Diagnostic Tests Pending * Urine Culture 06/18/24 [facility] evaluideji + Plan note Future Appointments Appointment Date:07/11/2024 08:15:00 AM Scheduled Provider:Karlee Montes De Oca MD Location:[facility] Appointment Type:URO New Patient [facility] evaluation + Plan note Future Appointments Appointment Date:10/18/2024 08:20:00 AM Scheduled Provider:CARON CARVAJAL PA-C Location:[facility] Appointment Type:URO Office Visit Future Scheduled Tests Radiology* XR Abdomen 1 View 07/02/24 * US Renal 07/02/24 [facility] evalutxtwh + Plan note Future Appointments Appointment Date:10/18/2024 08:20:00 AM Scheduled Provider:CARON CARVAJAL PA-C Location:[facility] Appointment Type:URO Office Visit Diagnostic Tests Pending * Urine Culture 07/02/24 Future Scheduled Tests Radiology* XR Abdomen 1 View 07/02/24 * US Renal 07/02/24 [facility] evaluation + Plan note Future Appointments Appointment Date:10/18/2024 08:20:00 AM Scheduled Provider:CARON CARVAJAL PA-C Location:[facility] Appointment Type:URO Office Visit [facility] Evaluation + Plan note Future Appointments Appointment Date:09/17/2024 08:20:00 AM Scheduled Provider:CARON CARVAJAL PA-C Location:[facility] Appointment Type:URO Office Visit [facility] Quynh evaluation noteNo assessment information available [facility] Work Phone: evaluation noteNo InformationNort [facility] Other evaluation note* Diagnosis 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 elsewhere Alcohol abuse Alcohol abuse, unspecified Visual hallucinations Psychophysical visual disturbances NAWAF (obstructive sleep apnea) Obstructive sleep apnea (adult) (pediatric) documented in this encounter [facility] note* Diagnosis Unwitnessed fall- Primary documented in this encounter [facility] note* Diagnosis Fall, initial encounter- Primary documented in this encounter [facility] note* Diagnosis Onset Date Resolution Status Admit [...] Pulmonary hypertension acute Au evgeny 2024 2:30pm [facility] Work Phone: Hispaqg general Narrative - Reported* Type Description Date [...] History wisdom teeth Hospitalization History see above [facility] Other History general Narrative - Reported* Type [...] History wisdom teeth Hospitalization History see above [facility] Other Hospital course Narrative No data available for this section [facility] No data available for this section [facility] Attachments The following attachments cannot be sent through Care Everywhere. * Fall Prevention (Tristanian) [facility] No data available for this section [facility] for referral (narrative) Referred by: CARON CARVAJAL PA-C [facility] Reason for referral (narrative)No reason for referral information availableWvumedicine [facility] Work Phone: Summary Purpose Family History No [...] Documents on File Type Date Recorded Patient Manager Logistic Expl anation Advance Directive(s) 01/28/2023 4:44 PM HP OA Advance Directive(s) 01/28/2023 4:45 PM Li ving Will Documents on File Type Date Recorded Patient Manager Logistic Expl anation Advance Directive(s) 01/28/2023 4:45 PM [...] am wellness March 15, 2025 2:3 0pm Chief Complaint Admit Date oa February 28, 2025 8:02 am wellness March 15, 2025 2:3 0pm UNL March 24, 2025 5: 08pm Amb Documentation March 29, 2025 7: 56am Additional Source Comments INFORMATION SOURCE (unrecogn ized section and content) DATE CREATED AUTHOR 09/08/2020 [facility] DATE CREATED AUTHOR AUTHOR'S ORGANIZ ATION 07/17/2021 [facility] dical Specialist DATE CREATED AUTHOR AUTHOR'S ORGANIZ ATION 09/08/2023 [facility] DATE CREATED AUTHOR AUTHOR'S ORGANIZ ATION 01/15/2024 [facility] DATE CREATED AUTHOR AUTHOR'S ORGANIZ ATION 02/23/2024 [facility] DATE CREATED AUTHOR AUTHOR'S ORGANIZ ATION 03/15/2024 [facility] DATE CREATED AUTHOR AUTHOR'S ORGANIZ ATION 05/06/2024 [facility] DATE CREATED AUTHOR AUTHOR'S ORGANIZ ATION 05/17/2024 [facility] DATE CREATED AUTHOR AUTHOR'S ORGANIZ ATION 06/01/2024 [facility] DATE CREATED AUTHOR AUTHOR'S ORGANIZ ATION 06/19/2024 [facility] DATE CREATED AUTHOR AUTHOR'S ORGANIZ ATION 06/21/2024 [facility] DATE CREATED AUTHOR AUTHOR'S ORGANIZ ATION 07/02/2024 [facility] DATE CREATED AUTHOR AUTHOR'S ORGANIZ ATION 07/07/2024 [facility] DATE CREATED AUTHOR AUTHOR'S ORGANIZ ATION 07/11/2024 [facility] DATE CREATED AUTHOR AUTHOR'S ORGANIZ ATION 10/10/2024 [facility] DATE CREATED AUTHOR AUTHOR'S ORGANIZ ATION [facility]/09/20[facility] Care Teams (unrecognized sec tion and content) Team Status: Inactive Member Role Status Dates Luciano Taylor MD Attending Provider Active NON STAFF Primary Care Provider Active Team Status: Active Member Role Status Dates NON STAFF Primary Care Provider Active Team Status: Inactive Member Role Status Dates NON STAFF Primary Care Provider Active Saran Verduzco , PhD Attending Provider Active Shipping Support Relationship Specialty Start Date End Date Rojas Brown [address] [place] [address] PCP - General 08/31/13 Team Status: Inactive Member Role Status Dates NON STAFF Primary Care Provider Active Luciano Taylor MD Attending Provider Active Shipping Support Relationship Specialty Start Date [facility] [address] [place] [address] PCP - General 08/31/13 Team Status: Inactive Member Role Status Dates NON STAFF Primary Care Provider Active RICCARDO Murrell Attending Provider Active Shipping Support Relationship Specialty Start Date End Date Rojas Brown [address] [place] [address] PCP - General 08/31/13 Team Status: Active Member Role Status Dates Edmond Pacheco DO Primary Care Provider Active Team Status: Inactive Member Role Status Dates Edmond Pacheco DO Primary Care Provider Active RICCARDO Murrell Attending Provider Active Shipping Support Relationship Specialty Start Date End Date [facility] [address] [place] [address] PCP - General 08/31/13 Shipping Support Relationship Specialty Start Date End Date Rojas Brown [address] [place] [phone] PCP - General 08/31/13 Shipping Support Relationship Specialty Start Date End Date Thai Patel MD [address] [place] [id number] PCP - General Internal Medicine 09/15/23 Shipping Support Relationship Specialty Start Date End Date Thai Patel MD [address] [place] [address] PCP - General Internal Medicine 09/15/23 Team Status: Inactive Member Role Status Dates Edmond Pacheco DO Primary Care Provider Active Start: November 23, 2023 End: November 23, 2023 Carline Jackson NP-C Attending Provider Active Start: November 23, 2023 End: November 23, 2023 Shipping Support Relationship Specialty Start Date End Date DeyvidaphneRojas Driss [address] [place] [address] PCP - General 08/31/13 Team Status: Inactive Member Role Status Dates Edomnd Pacheco DO Primary Care Provider Active Start: [...] March 15, 2025 End: March 15, 2025 Shipping Support Relationship Specialty Start Date End Date Edmond [...] March 24, 2025 End: March 24, 2025 Shipping Support Relationship Specialty Start Date End Date Edmond Pacheco DO PCP - General Internal Medicine 12/24/22 Team Status: Active Member Role Status Dates Analilia Juarez MD Attending Provider Active Sta rt: March 25, 2025 Team Status: Active Member Role Status Dates Analilia Juarez MD Attending Provider Active Sta rt: March 27, 2025 Team Status: Active Member Role Status Dates Tiffanie William CMA Attending Provider Active Start: March 29, 2025 Team Status: Active Member Role Status Dates Edmond Pacheco DO Attending Provider Active Sta rt: April 05, 2025 Goals (unrecognized section and content) Goals may be documented in a n alternate section Source Comments (unrecognize d section and content) In the event this informatio n is protected by the Federal Confidentiality of Alcohol and Drug Abuse Patient Records regulations: The Federal rules restrict any use of the information to criminally investigate or prosecute any alcohol or drug abuse patient.[facility] the event this information is protected by the Federal Confidentiality of Alcohol and Drug Abuse Patient Records regulations: The Federal rules restrict any use of the information to criminally investigate or prosecute any alcohol or drug abuse patient.[facility] the event this information is protected by the Federal Confidentiality of Alcohol and Drug Abuse Patient Records regulations: The Federal rules restrict any use of the information to criminally investigate or prosecute any alcohol or drug abuse patient.[facility] the event this information is protected by the Federal Confidentiality of Alcohol and Drug Abuse Patient Records regulations: The Federal rules restrict any use of the information to criminally investigate or prosecute any alcohol or drug abuse patient.[facility] the event this information is protected by the Federal Confidentiality of Alcohol and Drug Abuse Patient Records regulations: The Federal rules restrict any use of the information to criminally investigate or prosecute any alcohol or drug abuse patient.[facility] the event this information is protected by the Federal Confidentiality of Alcohol and Drug Abuse Patient Records regulations: The Federal rules restrict any use of the information to criminally investigate or prosecute any alcohol or drug abuse patient.[facility] the event this information is protected by the Federal Confidentiality of Alcohol and Drug Abuse Patient Records regulations: The Federal rules restrict any use of the information to criminally investigate or prosecute any alcohol or drug abuse patient.[facility] the event this information is protected by the Federal Confidentiality of Alcohol and Drug Abuse Patient Records regulations: The Federal rules restrict any use of the information to criminally investigate or prosecute any alcohol or drug abuse patient.[facility] Reason for Visit (unrecogniz ed section and content) Reason Comments Refill Request Reason Onset Date Comments Refill Request 08/06/2022 Reason Comments New Patient Evaluation Reason Comments [employer] 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 Consultant - Other Reason Comments Fall Per SNF, [...] BE BASED ON THE PRIMARY CLINICAL RECORDS. [facility]. provides no warranty or guarantee of the accuracy or completeness of information in this document.
[2025-04-15 11:13] LABS: Hematocrit 38.5 % (36.0-48.0); Hemoglobin 13.0 g/dL (12.0-16.0); Immature Granulocytes Abs Auto 0.01 10^3/uL (0.00-0.03); Immature Granulocytes Pct Auto 0.2 % (0.0-0.5); Lymphocytes Absolute Auto 2.2 10^3/uL (1.2-3.8); Mean Corpuscular HGB Conc 33.8 g/dL (29.9-35.2); Mean Corpuscular Hemoglobin 32.5 pg (26.7-34.0); Mean Corpuscular Volume 96.3 fL (81.0-99.0); Platelet Count 169 10^3/uL (150-450); Red Blood Count 4.00 10^6/uL (4.20-5.40); White Blood Count 6.0 10^3/uL (4.0-11.0)
[2025-04-15 11:46] LABS: Alanine Aminotransferase 14 U/L (14-59); Albumin Globulin Ratio 0.7; Albumin Level 3.0 g/dL (3.4-5.0); Alkaline Phosphatase 78 U/L (46-116); Anion Gap 10.7; Aspartate Amino Transferase 17 U/L (15-37); Blood Urea Nitrogen 12.0 mg/dL (7.0-18.0); Calcium 8.5 mg/dL (8.5-10.1); Carbon Dioxide 30.8 mmol/L (21.0-32.0); Chloride 102 mmol/L (98-107); Estimated GFR (African America >60 (>=60 mL/min/1.73m^2); Estimated GFR (Non-African Ame >60 (>=60 mL/min/1.73m^2); Globulin 4.2 g/dL; Glucose 152 mg/dL (74-106); Potassium 3.5 mmol/L (3.5-5.1); Sodium 140 mmol/L (136-145); Thyroid Stimulating Hormone 0.475 uIU/mL (0.358-3.740); Total Protein 7.2 g/dL (6.4-8.2)
== END 2025-04-15 10:48 | disposition home or self-care (01) ==
LOC: LAB 10:47
PROVIDERS: PCP Internal Medicine; Visit Provider Internal Medicine
DX: I11.0 Hypertensive heart disease with heart failure (principal); I50.32 Chronic diastolic (congestive) heart failure; I27.20 Pulmonary hypertension, unspecified; R53.83 Other fatigue; Z79.899 Other long term (current) drug therapy
CPT/HCPCS: 36415; 80053; 84443; 85025; 86140